=== PATIENT | male | born 1975 | race Caucasian/White ===

== ENCOUNTER 2023-08-04 14:04 | Outpatient (OUT) | payer MEDICAID, SELFPAY ==
[2023-08-04 14:33] LABS: Estimated Average Glucose 148 mg/dL; Glycohemoglobin A1C 6.8 % (4.5-6.2)
[2023-08-04 14:50] LABS: BUN Creatinine Ratio 17.6; Calcium 8.9 mg/dL (8.5-10.1); Carbon Dioxide 27.9 mmol/L (21.0-32.0); Chloride 99 mmol/L (98-107); Estimated GFR (African America >60 (>=60); Estimated GFR (Non-African Ame >60 (>=60); Glucose 145 mg/dL (74-106); Potassium 3.9 mmol/L (3.5-5.1); Sodium 136 mmol/L (136-145)
== END 2023-08-04 14:05 | disposition home or self-care (01) ==
LOC: LAB 14:08
PROVIDERS: PCP Nurse Practitioner; Visit Provider Nurse Practitioner
DX: E11.9 Type 2 diabetes mellitus without complications (principal)
CPT/HCPCS: 36415; 80048; 83036

== ENCOUNTER 2024-01-16 16:40 | Emergency (ER) | payer MEDICAID, SELFPAY ==
[2024-01-16 16:47] VITALS: BP 115/94; PULSE 94; TEMP 36.7; O2SAT 97; BMI 42.5
[2024-01-16 16:56] VITALS: PULSE 76
--- NOTE | 2024-01-16 17:00 | CT_ITS ---
The [address] [address] Patient Name: BHUMIKA BRYANT MRN: [id number] date: 1975 Sex: M Assigned Patient Location: ER Current Patient Location: ER Accession/Order Number: [id number] Exam Date: 01/16/2024 17:13 Report Date: 01/16/2024 17:51 At the request of: YASSINE HUITRON Procedure: CT head/brain wo con CT HEAD WITHOUT CONTRAST. INDICATION: Paresthesias. COMPARISON: None available for comparison TECHNIQUE: Axial CT head images from the skull base to the vertex without IV contrast were acquired. Coronal and sagittal reformats were also obtained. FINDINGS: EXTRA-AXIAL SPACE: Age-appropriate ventricles. No acute extra-axial collection. No extra-axial mass. No midline shift. CEREBRUM: No focal abnormality. No CT evidence of acute large territorial cortical infarct, hemorrhage or mass effect. CEREBELLUM: No focal abnormality. No CT evidence of acute infarct, hemorrhage or mass effect. BRAINSTEM: No focal abnormality. No CT evidence of acute infarct, hemorrhage or mass effect. EXTRACRANIAL STRUCTURES. The paranasal sinuses are clear. Mastoid air cells are clear. Orbits are unremarkable. No discrete pituitary mass. Intact calvarium. CT/CT head/brain wo con IMPRESSION: No acute intracranial abnormality. Electronically authenticated by: UMM HANSON Date: 01/16/2024 17:51
--- NOTE | 2024-01-16 17:01 | CT_ITS ---
The [address] [address] Patient Name: BHUMIKA BRYANT MRN: [id number] date: 1975 Sex: M Assigned Patient Location: ER Current Patient Location: ER Accession/Order Number: [id number] Exam Date: 01/16/2024 17:13 Report Date: 01/16/2024 18:00 At the request of: YASSINE HUITRON Procedure: CT cervical spine wo con CT CERVICAL SPINE WITHOUT IV CONTRAST. INDICATION: Paresthesias COMPARISON: There are no prior studies available for comparison. TECHNIQUE: CT of the cervical spine without contrast. Orthogonal sagittal and coronal multiplanar reformatted images were created. . FINDINGS: BONY ALIGNMENT: There is normal cervical lordosis. No spondylolisthesis. VERTEBRAL BODY: No acute fracture of the cervical spine. There is mild multilevel degenerative spondylosis. CENTRAL CANAL/NEURAL FORAMINA: There is moderate C2-3 and C3-4 central canal stenosis secondary to endplate osteophytes.. No high-grade neural foraminal stenosis. SOFT TISSUE: No mass or inflammation. UPPER LUNGS: No acute findings. CT/CT cervical spine wo con IMPRESSION: 1. No acute osseous abnormality of the cervical spine. 2. Moderate C2-3 and C3-4 central canal stenosis. 3. No high-grade neuroforaminal stenosis. Electronically authenticated by: UMM HANSON Date: 01/16/2024 18:00
--- NOTE | 2024-01-16 17:02 | ED_ITS ---
HPI - Extremity Problem General Chief complaint: Extremity Problem, Nontraumatic Stated complaint: Finger Numb Time Seen by Provider: 01/16/24 16:42 Source: patient Mode of arrival: walk-in Limitations: no limitations Related Data Home Medications ?Medication ?Instructions ?Recorded ?Confirmed amitriptyline 10 mg tablet 10 mg PO DAILY 01/16/24 01/16/24 aspirin 81 mg chewable tablet 1 tab PO DAILY 01/16/24 01/16/24 citalopram 40 mg tablet 40 mg PO DAILY 01/16/24 01/16/24 dapagliflozin propanediol 5 mg 10 mg PO DAILY 01/16/24 01/16/24 tablet (Farxiga) lisinopril 20 1 tab PO .dailly 01/16/24 01/16/24 mg-hydrochlorothiazide 25 mg tablet loratadine 10 mg tablet (Allergy 10 mg PO DAILY 01/16/24 01/16/24 Relief (loratadine)) meloxicam 15 mg tablet 15 mg PO DAILY 01/16/24 01/16/24 metformin 1,000 mg tablet 500 mg PO .with meals 01/16/24 01/16/24 simvastatin 20 mg tablet 20 mg PO DAILY 01/16/24 01/16/24 tizanidine 4 mg tablet 4 mg PO Q12H PRN muscle spasticity 01/16/24 01/16/24 trazodone 100 mg tablet 100 mg PO .qhs PRN insomnia 01/16/24 01/16/24 Previous Rx's ?Medication ?Instructions ?Recorded prednisone 10 mg tablet See Rx Instructions .Route 01/16/24 .COMPLEX #18 tabs Allergies Allergy/AdvReac Type Severity Reaction Status Date / Time adhesive tape Allergy Mild Verified 01/16/24 16:47 almond Allergy Mild Verified 01/16/24 16:47 penicillin G Allergy Mild Verified 01/16/24 16:47 cashews Allergy Mild Uncoded 01/16/24 16:47 Exam Constitutional Vital Signs, click to edit/add: Last Vital Signs Temp 98.0 F 01/16/24 16:47 Pulse 76 01/16/24 16:56 Resp 18 01/16/24 16:47 BP 115/94 H 01/16/24 16:47 Pulse Ox 97 01/16/24 16:47 Course Vital Signs Vital signs: Vital Signs Temperature 98.0 F 01/16/24 16:47 Pulse Rate 94 H 01/16/24 16:47 Respiratory Rate 18 01/16/24 16:47 Blood Pressure 115/94 H 01/16/24 16:47 Pulse Oximetry 97 01/16/24 16:47 Temperature 98.0 F 01/16/24 16:47 Pulse Rate 76 01/16/24 16:56 Respiratory Rate 18 01/16/24 16:47 Blood Pressure 115/94 H 01/16/24 16:47 Pulse Oximetry 97 01/16/24 16:47 MDM - Extremity (Nontraumatic) MDM Narrative Medical decision making narrative: Cervical spinal stenosis is noted on the CT C-spine. Findings are discussed with the patient and he is prescribed a lower dose of prednisone and referred to neurology. Treatment diagnosis and follow-up were discussed with the patient. Differential Diagnosis Differential diagnosis: Likely other (Paresthesia, cervical radiculopathy, cervical arthritis, spinal stenosis) Discharge Plan Discharge Stand Alone Forms: Portal Instructions Chief Complaint: Extremity Problem, Nontraumatic Clinical Impression: Paresthesia, Cervical spinal stenosis Patient Disposition: Home, Self-Care Time of Disposition Decision: 18:07 Condition: Good Mode of Transportation: Private Vehicle Prescriptions / Home Meds: New prednisone 10 mg tablet See Rx Instructions .ROUTE .COMPLEX Qty: 18 0RF Rx Instructions: 3 by mouth daily for three days then 2 by mouth daily for three days then 1 by mouth daily for three days No Action amitriptyline 10 mg tablet 10 mg PO DAILY aspirin 81 mg tablet,chewable 1 tab PO DAILY citalopram 40 mg tablet 40 mg PO DAILY dapagliflozin propanediol [Farxiga] 5 mg tablet 10 mg PO DAILY lisinopril-hydrochlorothiazide 20-25 mg tablet 1 tab PO .dailly loratadine [Allergy Relief (loratadine)] 10 mg tablet 10 mg PO DAILY meloxicam 15 mg tablet 15 mg PO DAILY metformin 1,000 mg tablet 500 mg PO .with meals simvastatin 20 mg tablet 20 mg PO DAILY tizanidine 4 mg tablet 4 mg PO Q12H PRN (Reason: muscle spasticity) trazodone 100 mg tablet 100 mg PO .qhs PRN (Reason: insomnia) Print Language: B[place] Instructions: Cervical Spinal Stenosis (ED), Paresthesia (ED) Additional Instructions: [phone] [facility] Referrals: Cecy Hernandez NP [Primary Care Provider] - 1 week
--- OUTSIDE RECORDS SUMMARY | 2024-01-16 17:19 | XMS_ITS | CCD ---
Author Organization [facility] Care Team Providers Care Accountant Helper Name Role Phone PHYSICIAN, DEFAULT Admitting Unavailable PHYSICIAN, DEFAULT Attending Unavailable PEGGY GAYTAN Primary Care Unavailable Primo Downing Primary Care Provider Yue Pedroza Unavailable AICHHOLZ, ASSET CARD CLERK CECY Primary Care Unavailable AICHHOLZ, ASSET CARD CLERK CECY Admitting Unavailable AICHHOLZ, ASSET CARD CLERK CECY Attending Unavailable AICHHOLZ, ASSET CARD CLERK CECY Consulting Unavailable AICHHOLZ, ASSET CARD CLERK CECY Primary Care Unavailable AICHHOLZ, ASSET CARD CLERK CECY Admitting Unavailable AICHHOLZ, ASSET CARD CLERK CECY Attending Unavailable AICHHOLZ, ASSET CARD CLERK CECY Consulting Unavailable AICHHOLZ, ASSET CARD CLERK CECY Admitting Unavailable AICHHOLZ, ASSET CARD CLERK CECY Attending Unavailable AICHHOLZ, ASSET CARD CLERK CECY Consulting Unavailable AICHHOLZ, ASSET CARD CLERK CECY Primary Care Unavailable AICHHOLZ, ASSET CARD CLERK CECY Primary Care Unavailable VISHAL, DR THANG Nichols Attending Unavailmilvia RODGERS, DR THANG Nichols Consulting Unavailmilvia RODGERS, DR THANG Nichols Admitting UnavailJAKOB Solano Consulting Unavailable Lexa Hickman MD Primary Care Provider [phone] Aichholz RECREATIONAL PROGRAMS DIRECTOR, Cecy Unavailable Unavailable Primary Care Provider Unavailabl e AICHHOLZ, CECY Attending Unavailable AICHHOLZ, CECY Attending Unavailable Allergies Allergy Classification Reported Allergen(s) Allergy Type Date of Onset Reaction(s) Facility (1 source) Adhesive Tape Allergy to substance 02-20-20 13 Rash [facility] (4 sources) Penicillins; Translations: [Penicillins] Drug Allergy 01-03-20 13 Unknown [facility] (1 source) Penicillins (Antibiotic) Drug allergy rash. when he was [employer] Other (1 source) Desonide Drug Allergy 11-03-19 17 [facility] (1 source) Oxytetracycline Drug Allergy 01-03-20 13 [facility] (1 source) Cashew nut Allergy to substance 08-16-20 Dermatitis [facility] (1 source) Oxytetracycline Drug Allergy 08-16-20 Unknown [facility] (1 source) Penicillin G Drug Allergy 08-16-20 Unknown [facility] (1 source) Other Allergy to substance 08-16-20 Unknown [facility] (1 source) Wound Dressing Adhesive Propensity to adverse reactions to drug 08-16-20 Rash [facility] (1 source) Adhesive agent Propensity to adverse reactions to drug 02-20-20 13 [facility] Medications Current Medications Medication Drug Class(es) Dates Sig (Normalized) Sig (Original) amitriptyline hydrochloride 10 mg oral tablet (3 sources) Tricyclic Antidepressant Start: 07-05-2023 End: 11-13-2023 take 1 tablet by mouth once daily amitriptyline (ELAVIL) 10 mg tablet TAKE 1 TABLET BY MOUTH DAILY at 8:00pm 30 tablet 2 11/13/2023 Active aspirin 81 mg chewable tablet (2 sources) Platelet Aggregation Inhibitor, Nonsteroidal Anti-inflammatory Drug Start: 02-13-2023 aspirin 81 mg chewable tablet take 1 tablet by mouth in the mo rning aspirin 81 MG EC tablet Take 81 mg by mouth in the morning. 0 Active citalopram 40 mg oral tablet (4 sources) Serotonin Reuptake Inhibitor End: 04-25-2014 citalopram (CeleXA) 40 mg tablet citalopram 40 mg tablet 0 Active Comment on above: Take 40 mg by mouth once daily. dapagliflozin 5 mg oral tablet (1 source) Sodium-Glucose Cotransporter 2 Inhibitor Start: 12-14-2022 take 1 tablet by mouth in the morning FARXIGA 5 mg tablet Take 1 tablet (5 mg total) by mouth in the morning. 0 12/14/2022 Active fluticasone propionate 0.05 mg/actuat metered dose nasal spray (4 sources) Corticosteroid Start: 10-08-2021 take 2 spray(s) nasal route once daily Fluticasone Propionate 50 MCG/ACT 2 sprays Nasally Once a day for 14 day(s) 11 Feb, 2022 Active fluticasone prop ionate (FLONASE) 50 mcg/actuation nasal spray fluticasone propionate 50 mcg/actuation nasal spray,suspension 0 Active take 2 spray(s) nasa l route in the morning fluticasone (Flonase) 50 MCG/ACT nasal s pray Administer 2 sprays into each nostril in the morning. Shake gently. Before first use, prime pump. After use, clean tip and replace cap.. 0 Active Fluticasone Furo ate Active hydroCHLOROthiazide 25 mg / lisinopril 20 mg oral tablet (2 sources) Thiazide Diuretic, Angiotensin Converting Enzyme Inhibitor lisinopril-hydroCHLO ROthiazide (PRINZIDE,ZESTORETIC) 20-25 mg per tablet lisinopril 20 mg-hydrochlorothiazide 25 mg tablet 0 Active Lisinopril-hydro CHLOROthiazide 20-25 MG Oral for 30 Active loratadine 10 mg oral tablet (3 sources) loratadine (CLAR ITIN) 10 mg tablet loratadine 10 mg tablet 0 Active meloxicam 15 mg oral tablet (2 sources) Nonsteroidal Anti-inflammatory Drug Start: 02-13-2023 meloxicam (MOBIC) 15 mg tablet Mobic Active metFORMIN hydrochloride 1000 mg oral tablet (2 sources) Biguanide metFORMIN (GLUCO PHAGE) 1000 mg tablet metformin 1,000 mg tablet 0 Active pioglitazone 30 mg oral tablet (4 sources) Peroxisome Proliferator Receptor alpha Agonist, Peroxisome Proliferator Receptor gamma Agonist, Thiazolidinedione Start: 02-13-2023 End: 11-11-2023 pioglitazone (ACTOS) 30 mg tablet Actos Active polyethylene glycol 3350 50841 mg powder for oral solution (1 source) Osmotic Laxative Start: 12-15-2022 polyethylene glycol, PEG, 3350 (Glycolax) 17 GM/SCOOP powder Take 17 g by mouth in the morning. 0 12/15/2022 Active simvastatin 20 mg oral tablet (1 source) HMG-CoA Reductase Inhibitor Start: 02-13-2023 simvastatin (ZOCOR) 20 mg tablet tiZANidine 4 mg oral tablet (1 source) Central alpha-2 Adrenergic Agonist Start: 02-13-2023 tiZANidine (ZANAFLEX ) 4 mg tablet Completed/Discontinued Medications Medication Drug Class(es) Dates Sig (Normalized) Sig (Original) canagliflozin (1 source) Sodium-Glucose Cotransporter 2 Inhibitor Invokana Not-Taking CPAP (1 source) Start: 3 End: 4 CPAP 7 CM H2O acclimation pressure WITH A 20 MINUTE RAMP, mask, CHIN STRAP, HUMIDITY. LIFETIME SUPPLIES. 1 Units 0 05/20/2013 06/18/2014 Discontinued Comment on above: 7 CM H2O acclimation pressure WITH A 20 MINUTE RAMP, mask, CHIN STRAP, HUMIDITY. LIFETIME SUPPLIES. diclofenac sodium 75 mg / miSOPROStol 0.2 mg delayed release oral tablet (1 source) Nonsteroidal Anti-inflammatory Drug, Prostaglandin E1 Analog End: 4 take 1 tablet by mouth twice daily diclofenac-misoprosto l (ARTHROTEC 75) 75-200 mg-mcg per tablet Take 1 tablet by mouth twice daily. 0 04/25/2014 Discontinued (Course of therapy completed) Comment on above: Take 1 tablet by thang th twice daily. 0.98 ml etanercept 50 mg/ml auto-injector (1 source) Tumor Necrosis Factor Darline Start: 3 End: 4 Etanercept (ENBREL SURECLICK) 50 mg/mL (0.98 mL) PnIj Indications: Rheumatoid arthritis(714.0) One injection weekly 4 Pen 4 06/12/2013 11/08/2013 Discontinued Comment on above: One injection weekly folic acid 1 mg oral tablet (2 sources) Start: 3 End: 4 take 1 tablet by mouth once daily folic acid 1 mg tablet Indications: Rheumatoid arthritis(714.0) Take 1 tablet by mouth once daily. 90 tablet 4 06/12/2013 04/25/2014 Discontinued Comment on above: Take 1 tablet by thang th once daily. hydroxychloroquine sulfate 200 mg oral tablet (1 source) Antimalarial, Antirheumatic Agent Start: 3 End: 4 take 1 tablet by mouth twice daily hydroxychloroquine (PLAQUENIL) 200 mg tablet Indications: Rheumatoid arthritis(714.0) Take 1 tablet by mouth twice daily. 60 tablet 4 06/12/2013 04/25/2014 Discontinued Comment on above: Take 1 tablet by thang th twice daily. methotrexate 2.5 mg oral tablet (1 source) Folate Analog Metabolic Inhibitor Start: 3 End: 4 methotrexate 2.5 mg tablet Indications: Rheumatoid arthritis(714.0) Take 6 tab once a week X 3 weeks then increase to 7 tab once a week X 3 weeks then take 8 tab once a week 28 tablet 2 06/12/2013 01/21/2014 Discontinued Comment on above: Take 6 tab once a we ek X 3 weeks then increase to 7 tab once a week X 3 weeks then take 8 tab once a week multivitamin (DAILY MULTIPLE) tablet (1 source) Start: 3 take 1 tablet by mouth once daily multivitamin (DAILY MULTIPLE) tablet Indications: Rheumatoid arthritis(714.0) Take 1 tablet by mouth once daily. 0 06/12/2013 Active Comment on above: Take 1 tablet by thang th once daily. OTC NUTRITIONAL SUPPLEMENT (1 source) Start: 3 End: 4 take 500 mg by mouth once daily OTC NUTRITIONAL SUPPLEMENT Indications: Rheumatoid arthritis(714.0) Take 500 mg by mouth once daily. Vit D 0 06/12/2013 04/25/2014 Discontinued (Course of therapy completed) Comment on above: Take 500 mg by mouth once daily. Vit D traMADol hydrochloride 50 mg oral tablet (1 source) Opioid Agonist Start: 3 take 1 tablet by mouth every twelve hours as needed traMADol 50 mg tablet Take 1 tablet by mouth twice daily as needed for Pain. 60 tablet 3 07/15/2013 Active Comment on above: Take 1 tablet by thang th twice daily as needed for Pain. Problems Active Problems Problem Classification Problem Date Documented Da te Episodic/Chronic Diabetes mellitus without complication (8 sources) Type 2 diabetes mellitus without complications; Translations: [Type 2 diabetes mellitus without complication] Onset: 01-11-2022 Chronic E Codes: Fall (1 source) Fall on same level from slipping, tripping and stumbling with subsequent striking against other sharp object, initial encounter; Translations: [FALL SAME LVL STRK OT SHRP OBJ INT] Onset: 04-25-2022 Episodic Essential hypertension (2 sources) Essential (primary) hypertension; Translations: [Benign essential hypertension] Onset: 04-25-2022 08-16-2023 Chronic Mood disorders (1 source) Depressive disorder; Translations: [Depression] Onset: 08-16-2023 08-16-2023 Chronic Other aftercare (1 source) halfway (current) use of oral hypoglycemic drugs; Translations: [EQUIPMENT PLANNER USE ORAL HYPOGLYCEMIC DX] Onset: 04-25-2022 Episodic Other aftercare (1 source) terminal operator (current) use of aspirin; Translations: [EQUIPMENT PLANNER CURRENT USE OF ASPIRIN] Onset: 04-25-2022 Episodic Other aftercare (1 source) Other roasterman (current) drug therapy; Translations: [OTH EQUIPMENT PLANNER CURRENT DRUG THERAPY] Onset: 04-25-2022 Episodic Other gastrointestinal disorders (1 source) Constipation; Translations: [Constipation, unspecified] Onset: 08-16-2023 08-16-2023 Episodic Other injuries and conditions due to external causes (3 sources) Unspecified injury of right elbow, initial encounter; Translations: [UNSPECIFIED INJURY RT ELBOW INITIAL] Onset: 04-23-2022 Episodic Other nutritional; endocrine; and metabolic disorders (1 source) Severe obesity; Translations: [Morbid (severe) obesity due to excess calories] Onset: 08-16-2023 08-16-2023 Chronic Residual codes; unclassified (1 source) Insomnia; Translations: [Insomnia, unspecified] Onset: 08-16-2023 08-16-2023 Episodic Rheumatoid arthritis and related disease (3 sources) Rheumatoid arthritis, unspecified; Translations: [Flare of rheumatoid arthritis] Onset: 06-12-2013 06-12-2013 Chronic Superficial injury; contusion (1 source) Contusion of right elbow, initial encounter; Translations: [CONTUSION RIGHT ELBOW INITIAL ENC] Onset: 04-25-2022 Episodic Systemic lupus erythematosus and connective tissue disorders (1 source) Autoimmune disease; Translations: [Systemic involvement of connective tissue, unspecified] Onset: 06-12-2013 08-16-2023 Chronic Past or Other Problems Problem Classification Problem Date Documented Da te Episodic/Chronic Immunizations and screening for infectious disease (1 source) Contact with and (suspected) exposure to other viral communicable diseases Onset: 10-08-2021 Resolved: 10-08-2021 Episodic Other non-traumatic joint disorders (2 sources) Joint pain; Translations: [Pain in unspecified joint] Onset: 02-19-2013 02-19-2013 Episodic Other screening for suspected conditions (not mental disorders or infectious disease) (1 source) Other specified abnormal findings of blood chemistry; Translations: [OTH SPEC ABNORMAL FINDINGS BLD CHEM] Onset: 05-18-2021 Episodic Other upper respiratory infections (1 source) Acute sinusitis, unspecified Onset: 10-08-2021 Resolved: 10-08-2021 Episodic Results Test Name Value Interpretation Reference Range Facil ity XR ELBOW RT MIN 3 VIEWSon XR ELBOW RT MIN 3 VIEWS RIGHT ELBOW 3 VIEWS: 04/23/2022 12:13 PM EDT Clinical Data: Pain. Trauma. Comparison: 11/05/2019 No distinct evidence of acute fracture or dislocation. No elbow joint effusion is evident. There is a moderate amount of degenerative spurring at the elbow which is unchanged No radiopaque foreign body IMPRESSION: 1. No evidence of acute fracture or dislocation. Electronically authenticated by: JAKOB MCGHEE Date: 2022-04-23 12:40 Normal [facility] CBC AUTO DIFFon 01-11-2022 BASO # 0.0 103/ul Normal 0.0-0.1 [facility] Comment on above: Performed By: #### C BC #### [facility] [address] [place] [address] Dr. Sera Quach Basophils/100 WBC (Bld) 0.4 % Normal 0.2-2.0 [facility] Comment on above: Performed By: #### C BC #### [facility] [address] [place] [address] Dr. Sera Quach EO # 0.3 103/ul Normal 0.0-0.7 [facility] Comment on above: Performed By: #### C BC #### [facility] [address] [place] [address] Dr. Sera Quach Eosinophils/100 WBC (Bld) 2.8 % Normal 0.9-7.0 [facility] Comment on above: Performed By: #### C BC #### [facility] [address] [place] [address] Dr. Sera Quach Erythrocyte distribution width (RBC) [Ratio] 13.1 % Normal 11.0-15.0 [facility] Comment on above: Performed By: #### C BC #### [facility] [address] [place] [address] Dr. eSra Quach Hematocrit (Bld) [Volume fraction] 47.3 % Normal 42.0-54.0 [facility] Comment on above: Performed By: #### C BC #### [facility] [address] [place] [address] Dr. Sera Quach Hemoglobin (Bld) [Mass/Vol] 15.2 g/dL Normal 14.0-18.0 [facility] Comment on above: Performed By: #### C BC #### [facility] [address] [place] [address] Dr. Sera Quach IG # 0.03 10e3/ul Normal 0.00-0.03 [facility] Comment on above: Performed By: #### C BC #### [facility] [address] [place] [address] Dr. Sera Quach IG % 0.3 % Normal 0.0-0.5 [facility] Comment on above: Performed By: #### C BC #### [facility] [address] [place] [address] Dr. Sera Quach LYMPH # 2.3 103/ul Normal 1.2-3.8 [facility] Comment on above: Performed By: #### C BC #### [facility] [address] [place] [address] Dr. Sera Quach Lymphocytes/100 WBC (Bld) 25.5 % Normal 20.5-60.0 [facility] Comment on above: Performed By: #### C BC #### [facility] [address] [place] [address] Dr. Sera Quach MANUAL DIFF REQ NO Normal [facility] Comment on above: Performed By: #### C BC #### [facility] [address] [place] [address] Dr. Sera Quach MCH (RBC) [Entitic mass] 29.2 pg Normal 25.9-34.0 [facility] Comment on above: Performed By: #### C BC #### [facility] [address] [place] [address] Dr. Sera Quach MCHC (RBC) [Mass/Vol] 32.1 g/dL Normal 29.9-35.2 [facility] Comment on above: Performed By: #### C BC #### [facility] [address] [place] [address] Dr. Sera Quach MCV (RBC) [Entitic vol] 91.0 fL Normal 80.0-94.0 [facility] Comment on above: Performed By: #### C BC #### [facility] [address] [place] [address] Dr. Sera Quach MONO # 0.7 103/ul Normal 0.3-0.8 [facility] Comment on above: Performed By: #### C BC #### [facility] [address] [place] [address] Dr. Sera Quach Monocytes/100 WBC (Bld) 7.1 % Normal 1.7-12.0 [facility] Comment on above: Performed By: #### C BC #### [facility] [address] [place] [address] Dr. Sera Quach NEUT # 5.9 103/ul Normal 1.4-6.5 [facility] Comment on above: Performed By: #### C BC #### [facility] [address] [place] [address] Dr. Sera Quach Neutrophils/100 WBC (Bld) 63.9 % Normal 43.0-75.0 [facility] Comment on above: Performed By: #### C BC #### [facility] [address] [place] [address] Dr. Sera Quach Platelet mean volume (Bld) [Entitic vol] 9.3 fL Critically low 9.5-13.5 [facility] Comment on above: Performed By: #### C BC #### [facility] [address] [place] [address] Dr. Sera Quach PLT 316 103/ul Normal 150-450 [facility] Comment on above: Performed By: #### C BC #### [facility] [address] [place] [address] Dr. Sera Quach RBC 5.20 106/ul Normal 4.70-6.10 [facility] Comment on above: Performed By: #### C BC #### [facility] [address] [address] [address] Sera Quach WBC 9.2 103/ul Normal 4.0-11.0 [facility] Comment on above: Performed By: #### C BC #### [facility] [address] [address] [address] Sera Quach GLYCOHEMOGLOBIN A1Con 2021 ADA RECOMMENDATION SEE BELOW Normal [facility] Comment on above: Result Comment: ADA RECOMMENDED LIMIT 4.0 - 6.0 ADA THERAPEUTIC TARGET < 7.0 ACTION SUGGESTED > 7.0 Performed By: #### A 1C #### [facility] [address] [place] [address] Dr. Sera Quach Glucose [Mass/Vol] 209 mg/dL Normal [facility] Comment on above: Performed By: #### A 1C #### [facility] [address] [place] [address] Dr. Sera Quach HbA1c (Bld) [Mass fraction] 8.9 % Critically high 4.5-6.2 [facility] Comment on above: Performed By: #### A 1C #### [facility] [address] [place] [address] Dr. Sera Quach LIPID PROFILEon 01-11-2022 CHOL-HDL RATIO NORM SEE BELOW Normal [facility] Comment on above: Result Comment: 3.3 - 4.4 LOW RISK 4.4 - 7.1 AVERAGE RISK 7.1 - 11.0 MODERATE RISK >11.0 HIGH RISK Performed By: #### C MP, LIPID #### [facility] [address] [place] [address] Dr. Sera Quach Cholesterol [Mass/Vol] 154 mg/dL Normal <=200 [facility] Comment on above: Performed By: #### C MP, LIPID #### [facility] [address] [place] [address] Dr. Sera Quach Cholesterol in HDL [Mass/Vol] 39 mg/dL Critically low 40-60 [facility] Comment on above: Performed By: #### C MP, LIPID #### [facility] [address] [address] [address] Sera Quach Cholesterol in LDL [Mass/Vol] 98.0 mg/dL Normal [facility] Comment on above: Performed By: #### C MP, LIPID #### [facility] [address] [address] [address] Sera Quach Cholesterol.total/Cho lesterol in HDL [Mass ratio] 3.9 {ratio} Normal [facility] Comment on above: Performed By: #### C MP, LIPID #### [facility] [address] [place] [address] Dr. Sera Quach HDL NORMAL > or = 60 mg/dl - LOW CARDIOVASCULAR RISK <40 mg/dl - HIGH CARDIOVASCULAR RISK Normal [facility] Comment on above: Performed By: #### C MP, LIPID #### [facility] [address] [place] [address] Dr. Sera Quach LDL CALC NORMAL SEE BELOW Normal [facility] Comment on above: Result Comment: <100 mg/dl OPTIMAL 100 - 129 mg/dl NEAR OR ABOVE OPTIMAL 130 - 159 mg/dl BORDERLINE HIGH 160 - 189 mg/dl HIGH >190 mg/dl VERY HIGH Performed By: #### C MP, LIPID #### [facility] [address] [place] [address] Dr. Sera Quach Triglyceride [Mass/Vol] 85 mg/dL Normal <=150 [facility] Comment on above: Performed By: #### C MP, LIPID #### [facility] [address] [place] [address] Dr. Sera Quach VLDL CALC 17.0 mg/dL Normal [facility] Comment on above: Performed By: #### C MP, LIPID #### [facility] [address] [place] [address] Dr. Sera Quach MICROALBUMIN, RAND URon 05-1 mALB 1.3 mg/L Normal <=30.0 [facility] Comment on above: Performed By: #### M ALBR #### [facility] [address] [place] [address] Dr. Sera Quach PROF 14(COMP METB)on 022 Albumin [Mass/Vol] 3.9 g/dL Normal 3.4-5.0 [facility] Comment on above: Performed By: #### C MP, LIPID #### [facility] [address] [address] [address] Sera Quach Albumin/Globulin [Mass ratio] 1.1 {ratio} Normal [facility] Comment on above: Performed By: #### C MP, LIPID #### [facility] [address] [address] [address] Sera Quach ALP [Catalytic activity/Vol] 76 U/L Normal 46-116 [facility] Comment on above: Performed By: #### C MP, LIPID #### [facility] [address] [address] [address] Sera Quach ALT [Catalytic activity/Vol] 64 U/L Critically high 16-63 [facility] Comment on above: Performed By: #### C MP, LIPID #### [facility] [address] [address] [address] Sera Quach Anion gap [Moles/Vol] 12.7 mmol/L Normal [facility] Comment on above: Performed By: #### C MP, LIPID #### [facility] [address] [address] [address] Sera Quach AST [Catalytic activity/Vol] 37 U/L Normal 15-37 [facility] Comment on above: Performed By: #### C MP, LIPID #### [facility] [address] [address] [address] Sera Quach Bilirubin [Mass/Vol] 0.6 mg/dL Normal 0.2-1.0 [facility] Comment on above: Performed By: #### C MP, LIPID #### [facility] [address] [address] [address] Sera Quach Calcium [Mass/Vol] 9.0 mg/dL Normal 8.5-10.1 [facility] Comment on above: Performed By: #### C MP, LIPID #### [facility] [address] [address] [address] Sera Quach Chloride [Moles/Vol] 101 mmol/L Normal 98-107 [facility] Comment on above: Performed By: #### C MP, LIPID #### [facility] [address] [place] [address] Dr. Sera Quach CO2 [Moles/Vol] 27.6 mmol/L Normal 21.0-32.0 [facility] Comment on above: Performed By: #### C MP, LIPID #### [facility] [address] [place] [address] Dr. Sera Quach Creatinine [Mass/Vol] 0.75 mg/dL Normal 0.70-1.30 [facility] Comment on above: Performed By: #### C MP, LIPID #### [facility] [address] [place] [address] Dr. Sera Quach EGFR-AF BELGIAN >60 Normal >=60 [facility] Comment on above: Performed By: #### C MP, LIPID #### [facility] [address] [place] [address] Dr. Sera Quach EGFR-NON AF BELGIAN >60 Normal >=60 [facility] Comment on above: Performed By: #### C MP, LIPID #### [facility] [address] [place] [address] Dr. Sera Quach Globulin (S) [Mass/Vol] 3.6 g/dL Normal [facility] Comment on above: Performed By: #### C MP, LIPID #### [facility] [address] [place] [address] Dr. Sera Quach Glucose [Mass/Vol] 184 mg/dL Critically high 74-106 [facility] Comment on above: Performed By: #### C MP, LIPID #### [facility] [address] [place] [address] Dr. Sera Quach Potassium [Moles/Vol] 4.3 mmol/L Normal 3.5-5.1 [facility] Comment on above: Performed By: #### C MP, LIPID #### [facility] [address] [place] [address] Dr. Sera Quach Protein [Mass/Vol] 7.5 g/dL Normal 6.4-8.2 [facility] Comment on above: Performed By: #### C MP, LIPID #### [facility] [address] [place] [address] Dr. Sera Quach Sodium [Moles/Vol] 137 mmol/L Normal 136-145 [facility] Comment on above: Performed By: #### C MP, LIPID #### [facility] [address] [place] [address] Dr. Sera Quach Urea nitrogen [Mass/Vol] 12.0 mg/dL Normal 7.0-18.0 [facility] Comment on above: Performed By: #### C MP, LIPID #### [facility] [address] [place] [address] Dr. Sera Quach Urea nitrogen/Creatinine [Mass ratio] 16.0 mg/mg Normal [facility] Comment on above: Performed By: #### C MP, LIPID #### [facility] [address] [place] [address] Dr. Sera Quach UA RANDOM W/MICROSCOPICon BACTERIA NONE SEEN Normal NONE SEEN [facility] Comment on above: Performed By: #### U AMIC #### [facility] [address] [place] [address] Dr. Sera Quach Bilirubin Ql (U) Negative Normal NEGATIVE [facility] Comment on above: Performed By: #### U AMIC #### [facility] [address] [place] [address] Dr. Sera Quach CAST NONE SEEN Normal NONE SEEN [facility] Comment on above: Performed By: #### U AMIC #### [facility] [address] [place] [address] Dr. Sera Quach Clarity (U) CLOUDY Abnormal CLEAR [facility] Comment on above: Performed By: #### U AMIC #### [facility] [address] [place] [address] Dr. Sera Quach Color (U) YELLOW Normal YELLOW [facility] Comment on above: Performed By: #### U AMIC #### [facility] [address] [address] [address] Sera Quach Crystals LM Nom (Urine sed) SEEN Abnormal NONE SEEN [facility] Comment on above: Performed By: #### U AMIC #### [facility] [address] [address] [address] Sera Quach Epithelial cells LM Ql (Urine sed) RARE Normal NONE SEEN /RARE [facility] Comment on above: Performed By: #### U AMIC #### [facility] [address] [address] [address] Sera Quach Glucose Ql (U) Negative Normal NEGATIVE [facility] Comment on above: Performed By: #### U AMIC #### [facility] [address] [address] [address] Sera Quach Hemoglobin Ql (U) Negative Normal NEGATIVE [facility] Comment on above: Performed By: #### U AMIC #### [facility] [address] [address] [address] Sera Quach Ketones Ql (U) Negative Normal NEGATIVE [facility] Comment on above: Performed By: #### U AMIC #### [facility] [address] [address] [address] Sera Quach LEUKOCYTES Negative Normal NEGATIVE [facility] Comment on above: Performed By: #### U AMIC #### [facility] [address] [address] [address] Sera Quach MUCOUS NONE SEEN Normal NONE SEEN [facility] Comment on above: Performed By: #### U AMIC #### [facility] [address] [address] [address] Sera Quach Nitrite Ql (U) Negative Normal NEGATIVE [facility] Comment on above: Performed By: #### U AMIC #### [facility] [address] [address] [address] Sera Quach pH (U) 5.5 [pH] Normal 5-9 [facility] Comment on above: Performed By: #### U AMIC #### [facility] [address] [address] [address] Sera Quach RBC NONE SEEN Abnormal 0-2 [facility] Comment on above: Performed By: #### U AMIC #### [facility] [address] [address] [address] Sera Quach SPEC GRAVITY 1.025 Normal 1.005-<=1.025 [facility] Comment on above: Performed By: #### U AMIC #### [facility] [address] [address] [address] Sera Quach UA PROTEIN Negative Normal NEGATIVE/ TRACE [facility] Comment on above: Performed By: #### U AMIC #### [facility] [address] [address] [address] Sera Quach Urobilinogen Qn (U) 1.0 {Jessika'U}/dL Normal 0.2 - 1. 0 [facility] Comment on above: Performed By: #### U AMIC #### [facility] [address] [address] [address] Sera Quach WBC 0-2 Abnormal NONE SEEN [facility] Comment on above: Performed By: #### U AMIC #### [facility] [address] [address] [address] Sera Quach GLYCOHEMOGLOBIN A1Con 2020 ADA RECOMMENDATION ADA THERAPEUTIC TARGET 6.0 - 7.0 ACTION SUGGESTED > 7.0 Normal [facility] Comment on above: Performed By: #### A 1C #### [facility] [address] [address] Dania Carreno Glucose [Mass/Vol] 174 mg/dL Normal [facility] Comment on above: Performed By: #### A 1C #### [facility] [address] [address] Dania Carreno HbA1c (Bld) [Mass fraction] 7.7 % Critically high <=6.0 [facility] Comment on above: Performed By: #### A 1C #### [facility] [address] [address] Dania Carreno PROF CHEM 8 (BAS METB)on 09- 08-2021 Anion gap [Moles/Vol] 9.0 mmol/L Normal [facility] Comment on above: Performed By: #### B MP #### [facility] [address] [address] Dania Ev Calcium [Mass/Vol] 8.8 mg/dL Normal 8.4-10.2 [facility] Comment on above: Performed By: #### B MP #### [facility] [address] [address] Dania Ev Chloride [Moles/Vol] 102 mmol/L Normal 98-107 [facility] Comment on above: Performed By: #### B MP #### [facility] [address] [place] [address] Dania Ev CO2 [Moles/Vol] 29.1 mmol/L Normal 22.0-30.0 [facility] Comment on above: Performed By: #### B MP #### [facility] [address] [place] [address] Dania Ev Creatinine [Mass/Vol] 0.73 mg/dL Normal 0.66-1.25 [facility] Comment on above: Performed By: #### B MP #### [facility] [address] [place] [address] Dania Ev EGFR-AF BELGIAN >60 Normal >=60 [facility] Comment on above: Performed By: #### B MP #### [facility] [address] [place] [address] Dania Ev EGFR-NON AF BELGIAN >60 Normal >=60 [facility] Comment on above: Performed By: #### B MP #### [facility] [address] [place] [address] Dania Ev Glucose [Mass/Vol] 141 mg/dL Critically high 74-106 [facility] Comment on above: Performed By: #### B MP #### [facility] [address] [place] [address] Dania Ev Potassium [Moles/Vol] 4.1 mmol/L Normal 3.4-5.0 [facility] Comment on above: Performed By: #### B MP #### [facility] [address] [place], [place] [address] Dania Ev Sodium [Moles/Vol] 136 mmol/L Critically low 137-145 [facility] Comment on above: Performed By: #### B MP #### [facility] [address] [place], [place] [address] Dania Ev Urea nitrogen [Mass/Vol] 9.0 mg/dL Normal 9.0-20.0 [facility] Comment on above: Performed By: #### B MP #### [facility] [address] [place], [place] [address] Dania Ev Urea nitrogen/Creatinine [Mass ratio] 12.3 mg/mg Normal [facility] Comment on above: Performed By: #### B MP #### [facility] [address] [place], [place] [address] Dania Ev Vital Signs Date Time Vital Sign Value Performing Clinician Facility 10-08-2021 13:30-0500 Body height 190.5 cm Yue Pedroza Other [facility] Other 10-08-2021 13:30-0500 Body mass index (BMI) [Ratio] 45.12 kg/m2 Yue Pedroza Other [facility] Other 10-08-2021 13:30-0500 Body temperature 96.6 [degF] Yue Pedroza Other [facility] Other 10-08-2021 13:30-0500 Body weight 163.75 kg Yue Kasia Other [facility] Other 10-08-2021 13:30-0500 SaO2% (BldA) [Mass fraction] 98 % Yue Pedroza Other [facility] Other Encounters Encounter Date Encounter Type Care Provider Facility Start: 11-16-2023 End: 11-16-2023 ambulatory CECY AICHHOLZ Not Available Start: 11-12-2023 Refill Jone Cota MD Work Phone: [facility] Start: 10-11-2023 Refill Cecy Aichholz RECREATIONAL PROGRAMS DIRECTOR Work Phone: [facility] Comment on above: Type 2 diabetes genet itus without complication, without long- term current use of insulin (CMS/HCC) (Primary Dx); Type 2 diabetes mellitus without complications (CMS/HCC) Start: 08-16-2023 End: 08-16-2023 ambulatory CECY AICHHOLZ Not Available Start: 04-23-2022 End: 04-23-2022 ambulatory ASSET CARD CLERK CECY AICHHOLZ Facility:[facility] Start: 01-11-2022 End: 01-12-2022 ambulatory ASSET CARD CLERK CECY AICHHOLZ Facility:[facility] Start: 10-08-2021 End: 10-08-2021 ambulatory Yue Pedroza Other [facility] Other Start: 10-08-2021 Office outpatient vi sit 15 minutes Yue Pedroza [facility] Start: 06-07-2021 End: 06-07-2021 ambulatory ASSET CARD CLERK CECY AICHHOLZ Facility:[facility] Start: 05-05-2021 End: 05-06-2021 ambulatory ASSET CARD CLERK CECY AICHHOLZ Facility:[facility] Start: 06-08-2018 End: 06-09-2018 Patient encounter procedure DEFAULT PHYSICIAN Facility:[facility] Start: 11-07-2013 End: 11-07-2013 Telephone encounter Haylee Garcia Work Phone: Rheumatology Comment on above: Appointment Cancelle d Plan of Treatment Date Care Activity Detail Author Start: 01-14-2024 Urine screening for protein Diabetes: Urine Protein Screening [facility] Start: 01-03-2024 End: 01-03-2024 Patient encounter procedure 01/03/2024 3:00 PM EDT Office Visit [facility] [address] [phone] Jone Cota MD [address] [address] [facility] Start: 12-27-2023 Screening for malignant neoplasm of colon [facility] Start: 11-16-2023 End: 11-16-2023 Patient encounter procedure 11/16/2023 1:20 PM EDT Office Visit [facility] [address] [place] [address] Cecy Hernandez NP [address] [place] [address] [facility] Start: 11-03-2023 Hemoglobin A1c measurement Diabetes: Hemoglobin A1C [facility] Start: 04-28-2023 Influenza vaccination [facility] Start: 04-28-2020 Influenza vaccination INFLUENZA (#1) [facility] Start: 2012 LIPID SCREEN LIPID SCREEN [facility] Start: 1996 DTaP,Tdap and Td Vaccines (1 - Tdap) DTaP,Tdap and Td Vaccines (1 - Tdap) [facility] Start: 1996 Urine microalbumin profile DTAP,TDAP,TD (1 - Tdap) [facility] Start: 1995 Adult BMI Screening Adult BMI Screening [facility] Start: 1995 Diabetic foot examination Diabetic Foot Exam [facility] Start: 1995 HIV SCREENING HIV SCREENING [facility] Start: 1989 Depression Screening [facility] Start: 1989 Tobacco Screening Tobacco Screening [facility] Start: 1987 Glaucoma screening Diabetes: Retinopathy Screening [facility] Start: 1977 Glaucoma screening Diabetic Ophthalmology Exam [facility] Start: 1977 Screening for malignant neoplasm of colon [facility] Start: 1977 Urine screening for protein Urine Microalbumin [facility] Immunizations Immunization Date Immunization Notes Care Provider Fa cility 06-06-2023 influenza virus vaccine, unspecified formulation Cecy Hernandez NP Work Phone: [facility] 04-04-2014 tetanus toxoid, reduced diphtheria toxoid, and acellular pertussis vaccine, adsorbed Yue Kasia Other [facility] Other 06-12-2013 influenza virus vaccine, unspecified formulation Haylee Radha [facility] Payers Date Payer Category Payer Medicaid [id number] 2022 Medicaid [id number] 2013 Medicaid [employer] [place] [employer] MEDICA[employer] [id number] 2013-Present Medicaid [id number] 2013 Self-pay SELF PAY HSP/MED ICAL SELF PAY [id number] 2013-2015 SELF PAY Indemnity [id number] 1977 Unknown [id number] 1977 Unknown [id number] 1977 Unknown [id number] 1977 Unknown [id number] 1977 Unknown [id number] 1977 Unknown [id number] 1977 Unknown [id number] 1959 Unknown [id number] 1959 Unknown [id number] Unknown Social History Date Type Detail Facility Start: 05-20-2013 End: 08-16-2023 Tobacco smoking status OKIS Former smoker [facility] Start: 05-20-2013 Alcohol intake Not Asked [facility] Start: 1977 Sex Assigned At Not on file [facility] Start: 02-06-2019 End: 08-16-2023 Sex Assigned At [facility] Possible Web Other History of tobacco use Current smoker [facility] History of tobacco use Cigarette Smoker [facility] Start: 08-16-2023 Alcohol intake Ex-drinker (finding) [facility] Start: 02-06-2019 End: 08-16-2023 History of Social function [facility] Start: 08-16-2023 Tobacco Comment Last smoked: 5-10 ye ars [facility] Start: 08-16-2023 Alcohol Comment caffeine 1-2 c ups per day [facility] Tobacco smoking status [facility] Tobacco smoking consumption unknown [facility] Medical Equipment Procedure Code Equipment Code Equipment Origin al Text Equipment Identifier Dates 1 each by Other route Daily as needed [id number] Start: 10-13-2022 1 each by Other route if needed [id number] Start: 10-13-2022 Evaluation note 10-08-2021 Note Date & Type Note Facility 10-08-2021 Evaluation note Encounter Date Diagnosis Assessment Notes Sep, Contact with and (suspected) exposure to other viral communicable diseases (ICD-10 - Z20.828) Sep, Acute sinusitis, recurrence not specified, unspecified location (ICD-10 - J01.90) Drink plenty fluids, get plenty of rest. Use the Flonase inhaler as prescribed until your symptoms improve. Take Tylenol or Motrin for aches pains or fevers. Follow-up with your family physician if no improvement in 2 to 3 days. Sep, Other Additional time spent conducting pre-visit phone call, screening for symptoms, instructions on social distancing, application and removal of PPE, and cleaning of examination room, equipment and supplies was preformed. Patient education given for testing methodology and results. Patient care instructions given in writting by [facility] document. [facility] Other Evaluation note Note Date & Type Note Facility Evaluation note Diagnosis Type 2 diabetes mellitus without complication, without long-term current use of insulin (CMS/HCC)- Primary Type 2 diabetes mellitus without complications (CMS/HCC) documented in this encounter [facility] History general Narrative - Reported Note Date & Type Note Facility History general Narrative - Reported Type Medical History rheumatoid arthritis Medical History type 2 diabeties Medical History Benign essential HTN Medical History Depression Surgical History tonsillectomy and adenoidectomy 1988 Hospitalization History tonsillitis childhoo d [facility] Other Instructions Note Date & Type Note Facility Instructions Not on filedocumented in this en counter [facility] Summary Purpose Family History No Family History Records FoundNo Family History Records FoundNo Family History Records Found Advance Directives No Advanced Directives Records FoundNo Advanced Directives Records FoundNo Advanced Directives Records Found Additional Source Comments (unrecognized sect ion and content) No Status Records FoundNo Status Records FoundNo Status Records Found INFORMATION SOURCE (unrecogn ized section and content) DATE CREATED AUTHOR 11/14/2018 [facility] DATE CREATED AUTHOR AUTHOR'S ORGANIZ ATION 04/25/2022 [facility] DATE CREATED AUTHOR AUTHOR'S ORGANIZ ATION 11/18/2023 [facility] EPIC Source Comments (unrecognize d section and content) In the event this informatio n is protected by the Federal Confidentiality of Alcohol and Drug Abuse Patient Records regulations: The Federal rules restrict any use of the information to criminally investigate or prosecute any alcohol or drug abuse patient.[facility] Reason for Visit (unrecogniz ed section and content) Reason Onset Date Comments Appointment Cancelled 11/07/2013 Reason Comments Med Refill Telephone Encounter - Shagufta Burton - 11/07/2013 2:22 PM EDT Miscellaneous Notes (unrecog nized section and content) Called left message for patient in regards to appointment on 11/08/2013 @ 3:30 with being cancelled and needing to be rescheduled. Waiting on a call back from patient. documented in this encounter Care Teams (unrecognized sec tion and content) Accountant Helper Relationship Specialty Start Date End Date Lexa Hickman MD PCP - General Family Medicine 03/15/23 Cecy Hernandez NP [address] [place] [address] Referring Physician Nurse Practitioner 03/15/23 FOR RECORDS PERTAINING TO PATIENTS WHO ARE OR HAVE BEEN ENROLLED IN A CHEMICAL DEPENDENCY/SUBSTANCEABUSE PROGRAM, SOME INFORMATION MAY BE OMITTED. This clinical summary was aggregated from multiple sources. Caution should be exercised in using it in the provision of clinical care. This summary normalizes information from multiple sources, and as a consequence, information in this document may materially change the coding, format and clinical context of patient data. In addition, data may be omitted in some cases. CLINICAL DECISIONS SHOULD BE BASED ON THE PRIMARY CLINICAL RECORDS. [employer] provides no warranty or guarantee of the accuracy or completeness of information in this document.
[2024-01-16 18:14] VITALS: BP 122/76; O2SAT 98
== END 2024-01-16 18:15 | disposition home or self-care (01) ==
PROVIDERS: Emergency Provider Emergency Medicine; PCP Nurse Practitioner
DX: M48.02 Spinal stenosis, cervical region (principal); R20.2 Paresthesia of skin; Z79.82 Long term (current) use of aspirin; Z79.899 Other long term (current) drug therapy; Z79.84 Long term (current) use of oral hypoglycemic drugs
CPT/HCPCS: 70450; 72125; 99284

== ENCOUNTER 2024-02-16 13:54 | Outpatient (OUT) | payer MEDICAID, SELFPAY ==
--- OUTSIDE RECORDS SUMMARY | 2024-02-16 14:16 | XMS_ITS | CCD ---
Author Organization [facility] Care Team Providers Care Bicycle Ii Assembler Name Role Phone PHYSICIAN, DEFAULT Admitting Unavailable PHYSICIAN, DEFAULT Attending Unavailable PEGGY GAYTAN Primary Care Unavailable Primo Downing Primary Care Provider Yue Pedroza Unavailable AICHHOLZ, PROMPT CARE RN CECY Primary Care Unavailable AICHHOLZ, PROMPT CARE RN CECY Admitting Unavailable AICHHOLZ, PROMPT CARE RN CECY Attending Unavailable AICHHOLZ, PROMPT CARE RN CECY Consulting Unavailable AICHHOLZ, PROMPT CARE RN CECY Primary Care Unavailable AICHHOLZ, PROMPT CARE RN CECY Admitting Unavailable AICHHOLZ, PROMPT CARE RN CECY Attending Unavailable AICHHOLZ, PROMPT CARE RN CECY Consulting Unavailable AICHHOLZ, PROMPT CARE RN CECY Admitting Unavailable AICHHOLZ, PROMPT CARE RN CECY Attending Unavailable AICHHOLZ, PROMPT CARE RN CECY Consulting Unavailable AICHHOLZ, PROMPT CARE RN CECY Primary Care Unavailable AICHHOLZ, PROMPT CARE RN CECY Primary Care Unavailable VISHAL, DR THANG Nichols Attending Unavailmilvia RODGERS, DR THANG Nichols Consulting Unavailmilvia RODGERS, DR THANG Nichols Admitting UnavailJAKOB Solano Consulting Unavailable Lexa Hickman MD Primary Care Provider Aichholz SKID ADZER, Cecy Unavailable Unavailable Primary Care Provider Unavailabl e AICHHOLZ, CECY Attending Unavailable VICKY SCRUGGS Attending Unavailable AICHHOLZ, CECY Attending Unavailable TANA CARDENAS Attending Unavailable Allergies Allergy Classification Reported Allergen(s) Allergy Type Date of Onset Reaction(s) Facility (1 source) Adhesive Tape Allergy to substance 02-20-20 13 Rash [facility] (4 sources) Penicillins; Translations: [Penicillins] Drug Allergy 01-03-20 13 Unknown [facility] (1 source) Penicillins (Antibiotic) Drug allergy rash. when he was kid [facility] Other (1 source) Desonide Drug Allergy 11-03-19 17 [facility] (1 source) Oxytetracycline Drug Allergy 01-03-20 13 [facility] (1 source) Cashew nut Allergy to substance 08-16-20 Dermatitis [facility] (1 source) Oxytetracycline Drug Allergy 08-16-20 Unknown [facility] (1 source) Penicillin G Drug Allergy 08-16-20 Unknown [facility] (1 source) Other Allergy to substance 08-16-20 23 Unknown [facility] (1 source) Wound Dressing Adhesive Propensity to adverse reactions to drug 08-16-20 Rash [facility] (1 source) Adhesive agent Propensity to adverse reactions to drug 02-20-20 13 Rash [facility] Medications Current Medications Medication Drug Class(es) [...] Nasally Once a day for 14 day(s) Sep, Active fluticasone prop ionate (FLONASE) 50 mcg/actuation [...] mg tablet Actos Active polyethylene glycol 3350 83160 mg powder for oral solution (1 source) [...] initial encounter; Translations: [FALL SAME LVL [facility] SHRP OBJ INT] Onset: 04-25-2022 Episodic Essential hypertension (2 sources) Essential (primary) hypertension; Translations: [Benign essential hypertension] Onset: 04-25-2022 08-16-2023 Chronic Mood disorders (1 source) Depressive disorder; Translations: [Depression] Onset: 08-16-2023 08-16-2023 Chronic Other aftercare (1 source) care home (current) use of oral hypoglycemic drugs; Translations: [[facility] USE ORAL HYPOGLYCEMIC DX] Onset: 04-25-2022 Episodic Other aftercare (1 source) care home (current) use of aspirin; 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 Sera Quach Basophils/100 WBC (Bld) 0.4 % Normal 0.2-2.0 [facility] Comment on above: Performed By: #### C BC #### [facility] [address] [place] [address] Dr. Sera Quach EO # 0.3 103/ul Normal 0.0-0.7 [facility] Comment on above: Performed By: #### C BC #### [facility] [address] [address] [address] Sera Quach Eosinophils/100 WBC (Bld) 2.8 % Normal 0.9-7.0 [facility] Comment on above: Performed By: #### C BC #### [facility] [address] [place] [address] Dr. Sera Quach Erythrocyte distribution width (RBC) [Ratio] 13.1 % Normal 11.0-15.0 [facility] Comment on above: Performed By: #### C BC #### [facility] [address] [place] [address] Dr. Sera Quach Hematocrit (Bld) [Volume fraction] 47.3 % Normal 42.0-54.0 [facility] Comment on above: Performed By: #### C BC #### [facility] [address] [place] [address] Dr. Sera Quach Hemoglobin (Bld) [Mass/Vol] 15.2 g/dL Normal 14.0-18.0 [facility] Comment on above: Performed By: #### C BC #### [facility] [address] [place] [address] Dr. Sera Quach IG # 0.03 10e3/ul Normal 0.00-0.03 [facility] Comment on above: Performed By: #### C BC #### [facility] [address] [place] [address] Dr. Sera Quach IG % 0.3 % Normal 0.0-0.5 [facility] Comment on above: Performed By: #### C BC #### [facility] [address] [place] [address] Dr. Sera Quach LYMPH # 2.3 103/ul Normal 1.2-3.8 [facility] Comment on above: Performed By: #### C BC #### [facility] [address] [place] [address] Dr. Sera Quach Lymphocytes/100 WBC (Bld) 25.5 % Normal 20.5-60.0 [facility] Comment on above: Performed By: #### C BC #### [facility] [address] [place] [address] Dr. Sera Quach MANUAL DIFF REQ NO Normal [facility] Comment on above: Performed By: #### C BC #### [facility] [address] [place] [address] Dr. Sera Quach MCH (RBC) [Entitic mass] 29.2 pg Normal 25.9-34.0 [facility] Comment on above: Performed By: #### C BC #### [facility] [address] [address] [address] Sera Quach MCHC (RBC) [Mass/Vol] 32.1 g/dL Normal 29.9-35.2 [facility] Comment on above: Performed By: #### C BC #### [facility] [address] [place] [address] Dr. Sera Quach MCV (RBC) [Entitic vol] 91.0 fL Normal 80.0-94.0 [facility] Comment on above: Performed By: #### C BC #### [facility] [address] [place] [address] Dr. Sera Quach MONO # 0.7 103/ul Normal 0.3-0.8 [facility] Comment on above: Performed By: #### C BC #### [facility] [address] [place] [address] Dr. Sera Quach Monocytes/100 WBC (Bld) 7.1 % Normal 1.7-12.0 [facility] Comment on above: Performed By: #### C BC #### [facility] [address] [place] [address] Dr. Sera Quach NEUT # 5.9 103/ul Normal 1.4-6.5 [facility] Comment on above: Performed By: #### C BC #### [facility] [address] [place] [address] Dr. Sera Quach Neutrophils/100 WBC (Bld) 63.9 % Normal 43.0-75.0 [facility] Comment on above: Performed By: #### C BC #### [facility] [address] [place] [address] Dr. Sera Quach Platelet mean volume (Bld) [Entitic vol] 9.3 fL Critically low 9.5-13.5 [facility] Comment on above: Performed By: #### C BC #### [facility] [address] [place] [address] Dr. Sera Quach PLT 316 103/ul Normal 150-450 [facility] Comment on above: Performed By: #### C BC #### [facility] [address] [place] [address] Dr. Sera Quach RBC 5.20 106/ul Normal 4.70-6.10 [facility] Comment on above: Performed By: #### C BC #### [facility] [address] [place] [address] Dr. Sera Quach WBC 9.2 103/ul Normal 4.0-11.0 [facility] Comment on above: Performed By: #### C BC #### [facility] [address] [place] [address] Dr. Sera Quach GLYCOHEMOGLOBIN A1Con 2021 ADA RECOMMENDATION SEE BELOW Normal [facility] Comment on above: Result Comment: ADA RECOMMENDED LIMIT 4.0 - 6.0 ADA THERAPEUTIC TARGET < 7.0 ACTION SUGGESTED > 7.0 Performed By: #### A 1C #### [facility] [address] [place] [address] Dr. Sera Quach Glucose [Mass/Vol] 209 mg/dL Normal [facility] Comment on above: Performed By: #### A 1C #### [facility] [address] [place] [address] Dr. Sera Quach HbA1c (Bld) [Mass fraction] 8.9 % Critically high 4.5-6.2 [facility] Comment on above: Performed By: #### A 1C #### [facility] [address] [place] [address] Dr. Sera Quach LIPID PROFILEon 01-11-2022 CHOL-HDL RATIO NORM SEE BELOW Normal [facility] Comment on above: Result Comment: 3.3 - 4.4 LOW RISK 4.4 - 7.1 AVERAGE RISK 7.1 - 11.0 MODERATE RISK >11.0 HIGH RISK Performed By: #### C MP, LIPID #### [facility] [address] [place] [address] Dr. Sera Quach Cholesterol [Mass/Vol] 154 mg/dL Normal <=200 [facility] Comment on above: Performed By: #### C MP, LIPID #### [facility] [address] [place] [address] Dr. Sera Quach Cholesterol in HDL [Mass/Vol] 39 mg/dL Critically low 40-60 [facility] Comment on above: Performed By: #### C MP, LIPID #### [facility] [address] [address] [address] Sera Quach Cholesterol in LDL [Mass/Vol] 98.0 mg/dL Normal [facility] Comment on above: Performed By: #### C MP, LIPID #### [facility] [address] [address] [address] Sera Quach Cholesterol.total/Cho lesterol in HDL [Mass ratio] 3.9 {ratio} Normal [facility] Comment on above: Performed By: #### C MP, LIPID #### [facility] [address] [address] [address] Sera Quach HDL NORMAL > or = 60 mg/dl - LOW CARDIOVASCULAR RISK <40 mg/dl - HIGH CARDIOVASCULAR RISK Normal [facility] Comment on above: Performed By: #### C MP, LIPID #### [facility] [address] [address] [address] Sera Quach LDL CALC NORMAL SEE BELOW Normal [facility] Comment on above: Result Comment: <100 mg/dl OPTIMAL 100 - 129 mg/dl NEAR OR ABOVE OPTIMAL 130 - 159 mg/dl BORDERLINE HIGH 160 - 189 mg/dl HIGH >190 mg/dl VERY HIGH Performed By: #### C MP, LIPID #### [facility] [address] [address] [address] Srea Quach Triglyceride [Mass/Vol] 85 mg/dL Normal <=150 [facility] Comment on above: Performed By: #### C MP, LIPID #### [facility] [address] [address] [address] Sera Quach VLDL CALC 17.0 mg/dL Normal [facility] Comment on above: Performed By: #### C MP, LIPID #### [facility] [address] [address] [address] Sera Quach MICROALBUMIN, RAND URon 05-1 mALB 1.3 mg/L Normal <=30.0 [facility] Comment on above: Performed By: #### M ALBR #### [facility] [address] [address] [address] Sera Quach PROF 14(COMP METB)on 022 Albumin [Mass/Vol] 3.9 g/dL Normal 3.4-5.0 [facility] Comment on above: Performed By: #### C MP, LIPID #### [facility] [address] [place] [address] Dr. Sera Quach Albumin/Globulin [Mass ratio] 1.1 {ratio} Normal [facility] Comment on above: Performed By: #### C MP, LIPID #### [facility] [address] [place] [address] Dr. Sera Quach ALP [Catalytic activity/Vol] 76 U/L Normal 46-116 [facility] Comment on above: Performed By: #### C MP, LIPID #### [facility] [address] [place] [address] Dr. Sera Quach ALT [Catalytic activity/Vol] 64 U/L Critically high 16-63 [facility] Comment on above: Performed By: #### C MP, LIPID #### [facility] [address] [place] [address] Dr. Sera Quach Anion gap [Moles/Vol] 12.7 mmol/L Normal [facility] Comment on above: Performed By: #### C MP, LIPID #### [facility] [address] [place] [address] Dr. Sera Quach AST [Catalytic activity/Vol] 37 U/L Normal 15-37 [facility] Comment on above: Performed By: #### C MP, LIPID #### [facility] [address] [place] [address] Dr. Sera Quach Bilirubin [Mass/Vol] 0.6 mg/dL Normal 0.2-1.0 [facility] Comment on above: Performed By: #### C MP, LIPID #### [facility] [address] [address] [address] Sera Quach Calcium [Mass/Vol] 9.0 mg/dL Normal 8.5-10.1 [facility] Comment on above: Performed By: #### C MP, LIPID #### [facility] [address] [address] [address] Sera Quach Chloride [Moles/Vol] 101 mmol/L Normal 98-107 [facility] Comment on above: Performed By: #### C MP, LIPID #### [facility] [address] [address] [address] Sera Quach CO2 [Moles/Vol] 27.6 mmol/L Normal 21.0-32.0 [facility] Comment on above: Performed By: #### C MP, LIPID #### [facility] [address] [place] [address] Dr. Sera Quach Creatinine [Mass/Vol] 0.75 mg/dL Normal 0.70-1.30 [facility] Comment on above: Performed By: #### C MP, LIPID #### [facility] [address] [place] [address] Dr. Sera Quach EGFR-AF CROATIAN >60 Normal >=60 [facility] Comment on above: Performed By: #### C MP, LIPID #### [facility] [address] [place] [address] Dr. Sera Quach EGFR-NON AF CROATIAN >60 Normal >=60 [facility] Comment on above: Performed By: #### C MP, LIPID #### [facility] [address] [place] [address] Dr. Sera Quach Globulin (S) [Mass/Vol] 3.6 g/dL Normal [facility] Comment on above: Performed By: #### C MP, LIPID #### [facility] [address] [place] [address] Dr. Sera Quach Glucose [Mass/Vol] 184 mg/dL Critically high 74-106 [facility] Comment on above: Performed By: #### C MP, LIPID #### [facility] [address] [place] [address] Dr. Srea Quach Potassium [Moles/Vol] 4.3 mmol/L Normal 3.5-5.1 [facility] Comment on above: Performed By: #### C MP, LIPID #### [facility] [address] [place] [address] Dr. Sera Quach Protein [Mass/Vol] 7.5 g/dL Normal 6.4-8.2 [facility] Comment on above: Performed By: #### C MP, LIPID #### [facility] [address] [address] [address] Sera Quach Sodium [Moles/Vol] 137 mmol/L Normal 136-145 [facility] Comment on above: Performed By: #### C MP, LIPID #### [facility] [address] [place] [address] Dr. Sera Quach Urea nitrogen [Mass/Vol] 12.0 mg/dL Normal 7.0-18.0 [facility] Comment on above: Performed By: #### C MP, LIPID #### [facility] [address] [place] [address] Dr. Sera Quach Urea nitrogen/Creatinine [Mass ratio] 16.0 mg/mg Normal [facility] Comment on above: Performed By: #### C MP, LIPID #### [facility] [address] [place] [address] Dr. Sera Quach UA RANDOM W/MICROSCOPICon BACTERIA NONE SEEN Normal NONE SEEN [facility] Comment on above: Performed By: #### U AMIC #### [facility] [address] [place] [address] Dr. Sera Quach Bilirubin Ql (U) Negative Normal NEGATIVE [facility] Comment on above: Performed By: #### U AMIC #### [facility] [address] [place] [address] Dr. Sera Quach CAST NONE SEEN Normal NONE SEEN [facility] Comment on above: Performed By: #### U AMIC #### [facility] [address] [place] [address] Dr. Sera Quach Clarity (U) CLOUDY Abnormal CLEAR [facility] Comment on above: Performed By: #### U AMIC #### [facility] [address] [place] [address] Dr. Sera Quach Color (U) YELLOW Normal YELLOW [facility] Comment on above: Performed By: #### U AMIC #### [facility] [address] [address] [address] Sera Quach Crystals LM Nom (Urine sed) SEEN Abnormal NONE SEEN [facility] Comment on above: Performed By: #### U AMIC #### [facility] [address] [address] [address] Sera Quach Epithelial cells LM Ql (Urine sed) RARE Normal NONE SEEN /RARE [facility] Comment on above: Performed By: #### U AMIC #### [facility] [address] [address] [address] Sera Quach Glucose Ql (U) Negative Normal NEGATIVE [facility] Comment on above: Performed By: #### U AMIC #### [facility] [address] [address] [address] Sera Quach Hemoglobin Ql (U) Negative Normal NEGATIVE [facility] Comment on above: Performed By: #### U AMIC #### [facility] [address] [address] [address] Sera Quach Ketones Ql (U) Negative Normal NEGATIVE [facility] Comment on above: Performed By: #### U AMIC #### [facility] [address] [address] [address] Sera Quach LEUKOCYTES Negative Normal NEGATIVE [facility] Comment on above: Performed By: #### U AMIC #### [facility] [address] [address] [address] Sera Quach MUCOUS NONE SEEN Normal NONE SEEN [facility] Comment on above: Performed By: #### U AMIC #### [facility] [address] [address] [address] Sera Quach Nitrite Ql (U) Negative Normal NEGATIVE [facility] Comment on above: Performed By: #### U AMIC #### [facility] [address] [address] [address] Sera Quach pH (U) 5.5 [pH] Normal 5-9 [facility] Comment on above: Performed By: #### U AMIC #### [facility] [address] [address] [address] Sera Quach RBC NONE SEEN Abnormal 0-2 [facility] Comment on above: Performed By: #### U AMIC #### [facility] [address] [place] [address] Dr. Sera Quach SPEC GRAVITY 1.025 Normal 1.005-<=1.025 [facility] Comment on above: Performed By: #### U AMIC #### [facility] [address] [address] [address] Sera Quach UA PROTEIN Negative Normal NEGATIVE/ TRACE [facility] Comment on above: Performed By: #### U AMIC #### [facility] [address] [place] [address] Dr. Sera Quach Urobilinogen Qn (U) 1.0 {Jessika'U}/dL Normal 0.2 - 1. 0 [facility] Comment on above: Performed By: #### U AMIC #### [facility] [address] [place] [address] Dr. Sera Quach WBC 0-2 Abnormal NONE SEEN [facility] Comment on above: Performed By: #### U AMIC #### [facility] [address] [place] [address] Dr. Sera Quach GLYCOHEMOGLOBIN A1Con 2020 ADA RECOMMENDATION ADA THERAPEUTIC TARGET 6.0 - 7.0 ACTION SUGGESTED > 7.[address] [facility] Comment on above: Performed By: #### A 1C #### [facility] [address] [place] [address] Dania Carreno Glucose [Mass/Vol] 174 mg/dL Normal [facility] Comment on above: Performed By: #### A 1C #### [facility] [address] [place] [address] Dania Carreno HbA1c (Bld) [Mass fraction] 7.7 % Critically high <=6.0 [facility] Comment on above: Performed By: #### A 1C #### [facility] [address] [place] [address] Dania Carreno PROF CHEM 8 (BAS METB)on Anion gap [Moles/Vol] 9.0 mmol/L Normal [facility] Comment on above: Performed By: #### B MP #### [facility] [address] [address] Dania Ev Calcium [Mass/Vol] 8.8 mg/dL Normal 8.4-10.2 [facility] Comment on above: Performed By: #### B MP #### [facility] [address] [address] Dania Ev Chloride [Moles/Vol] 102 mmol/L Normal 98-107 [facility] Comment on above: Performed By: #### B MP #### [facility] [address] [address] Dania Ev CO2 [Moles/Vol] 29.1 mmol/L Normal 22.0-30.0 [facility] Comment on above: Performed By: #### B MP #### [facility] [address] [address] Dania Ev Creatinine [Mass/Vol] 0.73 mg/dL Normal 0.66-1.25 [facility] Comment on above: Performed By: #### B MP #### [facility] [address] [place] [address] Dania Ev EGFR-AF CROATIAN >60 Normal >=60 [facility] Comment on above: Performed By: #### B MP #### [facility] [address] [place] [address] Dania Ev EGFR-NON AF CROATIAN >60 Normal >=60 [facility] Comment on above: Performed By: #### B MP #### [facility] [address] [address] Dania Ev Glucose [Mass/Vol] 141 mg/dL Critically high 74-106 [facility] Comment on above: Performed By: #### B MP #### [facility] [address] [place] [address] Dania Ev Potassium [Moles/Vol] 4.1 mmol/L Normal 3.4-5.0 [facility] Comment on above: Performed By: #### B MP #### [facility] [address] [place], [place] [address] Dania Ev Sodium [Moles/Vol] 136 mmol/L Critically low 137-145 [facility] Comment on above: Performed By: #### B MP #### [facility] [address] [place], [place] [address] Dania Ev Urea nitrogen [Mass/Vol] 9.0 mg/dL Normal 9.0-20.0 [facility] Comment on above: Performed By: #### B MP #### [facility] [address] [place], [place] [address] Dania Ev Urea nitrogen/Creatinine [Mass ratio] 12.3 mg/mg Normal [facility] Comment on above: Performed By: #### B MP #### [facility] [address] [place], [place] [address] Dania Carreno Vital Signs Date Time Vital Sign Value Performing Clinician Facility 10-08-2021 13:30-0500 Body height 190.5 cm Yue Pedroza Other [facility] Other 10-08-2021 13:30-0500 Body mass index (BMI) [Ratio] 45.12 kg/m2 Yue Pedroza Other [facility] Other 10-08-2021 13:30-0500 Body temperature 96.6 [degF] Yue Pedroza Other [facility] Other 10-08-2021 13:30-0500 Body weight 163.75 kg Yue Pedroza Other [facility] Other 10-08-2021 13:30-0500 SaO2% (BldA) [Mass fraction] 98 % Yue Pedroza Other [facility] Other Encounters Encounter Date Encounter Type Care Provider Facility Start: 02-13-2024 End: 02-13-2024 ambulatory TANA ARMANDOLINA Not Available Start: 02-07-2024 End: 02-07-2024 ambulatory VICKY SCRUGGS Not Available Start: 11-16-2023 End: 11-16-2023 ambulatory CECY AICHHOLZ Not Available Start: 11-12-2023 Refill Jone Cota MD Work Phone: [facility] Start: 10-11-2023 Refill Cecy Aichholz SKID ADZER Work Phone: [facility] Comment on above: Type 2 diabetes genet itus without complication, without long- term current use of insulin (CMS/[facility]) (Primary Dx); Type 2 diabetes mellitus without complications (CMS/[facility]) Start: 08-16-2023 End: 08-16-2023 ambulatory CECY AICHHOLZ Not Available Start: 04-23-2022 End: 04-23-2022 ambulatory [facility] RN CECY AICHHOLZ Facility:[facility] Start: 01-11-2022 End: 01-12-2022 ambulatory [facility] RN CECY AICHHOLZ Facility:[facility] Start: 10-08-2021 End: 10-08-2021 ambulatory Yue Pedroza Other [facility] Other Start: 10-08-2021 Office outpatient vi sit 15 minutes Yue Pedroza [facility] Start: 06-07-2021 End: 06-07-2021 ambulatory PROMPT CARE RN CECY AICHHOLZ Facility:[facility] Start: 05-05-2021 End: 05-06-2021 ambulatory PROMPT CARE RN CECY AICHHOLZ Facility:[facility] Start: 06-08-2018 End: 06-09-2018 Patient encounter procedure DEFAULT PHYSICIAN Facility:[facility] Start: 11-07-2013 End: 11-07-2013 Telephone encounter Haylee Garcia Work Phone: Rheumatology Comment on above: Appointment Cancelle d Plan of Treatment Date Care Activity Detail Author Start: 01-14-2024 Urine screening for protein Diabetes: Urine Protein Screening [facility] Start: 01-03-2024 End: 01-03-2024 Patient encounter procedure 01/03/2024 3:00 PM EDT Office Visit [facility] [address] [id number] Jone Cota MD [address] [id number] [facility] Start: 12-27-2023 Screening for malignant neoplasm of colon [facility] Start: 11-16-2023 End: 11-16-2023 Patient encounter procedure 11/16/2023 1:20 PM EDT Office Visit [facility] [address] [place] [id number] Cecy Hernandez NP [address] [place] [address] [facility] Start: 11-03-2023 Hemoglobin A1c measurement Diabetes: Hemoglobin A1C [facility] Start: 04-28-2023 Influenza vaccination [facility] Start: 04-28-2020 Influenza vaccination INFLUENZA (#1) [facility] Start: 2012 LIPID SCREEN LIPID SCREEN [facility] Start: 1996 DTaP,Tdap and Td Vaccines (1 - Tdap) DTaP,Tdap and Td Vaccines (1 - Tdap) [facility] Start: 1996 Urine microalbumin profile DTAP,TDAP,TD (1 - Tdap) [facility] Start: 1995 Adult BMI Screening Adult BMI Screening [facility] Start: 1995 Diabetic foot examination Diabetic Foot Exam [facility] Start: 1995 HIV SCREENING HIV SCREENING [facility] Start: 1989 Depression Screening Depression Screening [facility] Start: 1989 Tobacco Screening Tobacco Screening [facility] Start: 1987 Glaucoma screening Diabetes: Retinopathy Screening [facility] Start: 1977 Glaucoma screening Diabetic Ophthalmology Exam [facility] Start: 1977 Screening for malignant neoplasm of colon [facility] Start: 1977 Urine screening for protein Urine Microalbumin [facility] Immunizations Immunization Date Immunization Notes Care Provider [facility] 06-06-2023 influenza virus vaccine, unspecified formulation Cecy Hernandez NP Work Phone: [facility] 04-04-2014 tetanus toxoid, reduced diphtheria toxoid, and acellular pertussis vaccine, adsorbed Yue Kasia Other [facility] Other 06-12-2013 influenza virus vaccine, unspecified formulation Haylee Garcia [facility] Payers Date Payer Category Payer Medicaid [id number] 2022 Medicaid [id number] 2013 Medicaid [employer] MEDICA[employer] [id number] 2013-Present Medicaid [id number] 2013 Self-pay SELF PAY HSP/MED ICAL SELF PAY [id number] 2013-2015 SELF PAY Indemnity [id number] 1977 Unknown [id number] 1977 Unknown [id number] 1977 Unknown [id number] 2..[id number] 1977 Unknown [id number] [id number] 1977 Unknown [id number] 2..[id number] 1977 Unknown [id number] [id number] 1977 Unknown [id number] [id number] 1977 Unknown [id number] [id number] 1977 Unknown [id number] 1959 Unknown [id number] 1959 Unknown [id number] Unknown Social History Date Type Detail Facility Start: 05-20-2013 End: 08-16-2023 Tobacco smoking status ARIS Former smoker [facility] Start: 05-20-2013 Alcohol intake Not Asked [facility] Start: 1977 Sex Assigned At Not on file [facility] Start: 02-06-2019 End: 08-16-2023 Sex Assigned At [facility] Other History of tobacco use Current smoker [facility] History of tobacco use Cigarette Smoker [facility] Start: 08-16-2023 Alcohol intake Ex-drinker (finding) [facility] Start: 02-06-2019 End: 08-16-2023 History of Social function [facility] Start: 08-16-2023 Tobacco Comment Last smoked: 5-10 ye ars [facility] Start: 08-16-2023 Alcohol Comment caffeine 1-2 c ups per day [facility] Tobacco smoking status [facility] Tobacco smoking consumption unknown [facility] Childcare Unknown [facility] Medical Equipment Procedure Code Equipment Code Equipment Origin al Text Equipment Identifier Dates 1 each by Other route Daily as needed [id number] Start: 10-13-2022 1 each by Other route if needed [id number] Start: 10-13-2022 Evaluation note 10-08-2021 Note Date [...] no improvement in 2 to 3 days. 11 Sep, 2021 Other Additional time spent conducting pre-visit phone call, screening for symptoms, instructions on social distancing, application and removal of PPE, and cleaning of examination room, equipment and supplies was preformed. Patient education given for testing methodology and results. Patient care instructions given in writting by [facility] document. [facility] Other Evaluation note Note Date & Type [...] adenoidectomy 1988 Hospitalization History tonsillitis childhoo d [facility] Other Instructions Note Date & Type Note [...] section and content) DATE CREATED AUTHOR 11/14/2018 [facility] DATE CREATED AUTHOR AUTHOR'S ORGANIZ ATION 04/25/2022 [facility] DATE CREATED AUTHOR AUTHOR'S ORGANIZ ATION 02/15/2024 [facility] EP[employer] Source Comments (unrecognize d section and content) In the event this informatio n is protected by the Federal Confidentiality of Alcohol and Drug Abuse Patient Records regulations: The Federal rules restrict any use of the information to criminally investigate or prosecute any alcohol or drug abuse patient.[facility] Reason for Visit (unrecogniz ed section and [...] Care Teams (unrecognized sec tion and content) [employer] Relationship Specialty Start Date End Date Lexa Hickman MD PCP - General Family Medicine 03/15/23 Cecy Hernandez NP [address] [place] [address] Referring Physician Nurse Practitioner 03/15/23 FOR RECORDS [...] BE BASED ON THE PRIMARY CLINICAL RECORDS. [employer] [facility]. provides no warranty or guarantee of the accuracy or completeness of information in this document.
[2024-02-16 14:29] LABS: Basophils Absolute Auto 0.1 10^3/uL (0.0-0.1); Basophils Percent Auto 0.5 % (0.2-2.0); Eosinophils Absolute Auto 0.2 10^3/uL (0.0-0.7); Eosinophils Percent Auto 1.7 % (0.9-7.0); Hematocrit 45.2 % (42.0-54.0); Hemoglobin 14.9 g/dL (14.0-18.0); Immature Granulocytes Abs Auto 0.04 10^3/uL (0.00-0.03); Immature Granulocytes Pct Auto 0.4 % (0.0-0.5); Lymphocytes Absolute Auto 2.7 10^3/uL (1.2-3.8); Lymphocytes Percent Auto 28.5 % (20.5-60.0); Mean Corpuscular Hemoglobin 29.4 pg (25.9-34.0); Mean Corpuscular Volume 89.3 fL (80.0-94.0); Monocytes Absolute Auto 0.6 10^3/uL (0.3-0.8); Monocytes Percent Auto 6.2 % (1.7-12.0); Neutrophils Percent Auto 62.7 % (43.0-75.0); Platelet Count 336 10^3/uL (150-450); Red Blood Count 5.06 10^6/uL (4.70-6.10); Red Cell Distribution Width 13.3 % (11.0-15.0); White Blood Count 9.5 10^3/uL (4.0-11.0)
[2024-02-16 14:44] LABS: Estimated Average Glucose 148 mg/dL; Glycohemoglobin A1C 6.8 % (4.5-6.2)
[2024-02-16 14:56] LABS: Bilirubin Urine NEGATIVE (NEGATIVE); Blood Urine TRACE-I (NEGATIVE); Clarity Urine CLEAR (CLEAR); Color Urine YELLOW (YELLOW); Glucose Urine UA NEGATIVE (NEGATIVE); Ketones Urine NEGATIVE (NEGATIVE); Leukocyte Esterase Urine NEGATIVE (NEGATIVE); Nitrite Urine NEGATIVE (NEGATIVE); Protein Urine NEGATIVE (NEG/TRACE); Specific Gravity Urine 1.025 (1.005-1.025)
[2024-02-16 14:58] LABS: Urine Microscopic Indicated YES
[2024-02-16 15:04] LABS: Microalbum Creatinine Ratio Ur 6.9 mg/g (0.0-29.9); Microalbumin Urine Random <1.3 mg/dL (<=30.0)
[2024-02-16 15:10] LABS: Bacteria Urine NONE SEEN #/HPF (NONE SEEN); Mucus Urine MODERATE (NONE SEEN); Squamous Epithelial Cell Urine FEW #/LPF (NONE/RARE); WBC Urine 0-2 #/HPF (NONE SEEN)
[2024-02-16 15:52] LABS: Alanine Aminotransferase 27 U/L (16-63); Albumin Globulin Ratio 1.1; Albumin Level 3.7 g/dL (3.4-5.0); Alkaline Phosphatase 69 U/L (46-116); Anion Gap 11.6; Aspartate Amino Transferase 11 U/L (15-37); BUN Creatinine Ratio 14.5; Bilirubin Total 0.6 mg/dL (0.2-1.0); Calcium 8.8 mg/dL (8.5-10.1); Carbon Dioxide 27.3 mmol/L (21.0-32.0); Chloride 105 mmol/L (98-107); Chol HDL Ratio 2.9; Cholesterol 136 mg/dL (<=200); Estimated GFR (African America >60 (>=60); Estimated GFR (Non-African Ame >60 (>=60); Globulin 3.5 g/dL; Glucose 112 mg/dL (74-106); HDL Cholesterol 47 mg/dL (40-60); LDL Cholesterol Calculated 74.2 mg/dL; Potassium 3.9 mmol/L (3.5-5.1); Sodium 140 mmol/L (136-145); Total Protein 7.2 g/dL (6.4-8.2); Triglycerides 74 mg/dL (<=150); VLDL CHOLESTEROL 14.8 mg/dL
== END 2024-02-16 13:55 | disposition home or self-care (01) ==
LOC: LAB 13:55
PROVIDERS: PCP Nurse Practitioner; Visit Provider Nurse Practitioner
DX: E11.9 Type 2 diabetes mellitus without complications (principal); I10 Essential (primary) hypertension
CPT/HCPCS: 36415; 80053; 80061; 81001; 82043; 82570; 83036; 85025

== ENCOUNTER 2024-03-06 09:51 | Outpatient (OUT) | payer MEDICAID, SELFPAY ==
[2024-03-07 15:10] LABS: Lyme Total Antibody CIA Negative (Negative)
== END 2024-03-06 09:52 | disposition home or self-care (01) ==
LOC: LAB 09:53
PROVIDERS: PCP Nurse Practitioner; Visit Provider Nurse Practitioner
DX: M25.541 Pain in joints of right hand (principal); M25.542 Pain in joints of left hand
CPT/HCPCS: 36415; 86618

== ENCOUNTER 2024-03-19 15:33 | Emergency (ER) | payer MEDICAID, SELFPAY ==
[2024-03-19 15:44] VITALS: BP 147/91; PULSE 87; TEMP 37; O2SAT 96; BMI 42.5
--- OUTSIDE RECORDS SUMMARY | 2024-03-19 15:50 | XMS_ITS | CCD ---
Author Organization [facility] Care Team Providers Care Labor Arbitrator Name Role Phone PHYSICIAN, DEFAULT Admitting Unavailable PHYSICIAN, DEFAULT Attending Unavailable PEGGY GAYTAN Primary Care Unavailable Primo Downing Primary Care Provider Yue Pedroza Unavailable AICHHOLZ, WATER SUPERINTENDENT CECY Primary Care Unavailable AICHHOLZ, WATER SUPERINTENDENT CECY Admitting Unavailable AICHHOLZ, WATER SUPERINTENDENT CECY Attending Unavailable AICHHOLZ, WATER SUPERINTENDENT CECY Consulting Unavailable AICHHOLZ, WATER SUPERINTENDENT CECY Primary Care Unavailable AICHHOLZ, WATER SUPERINTENDENT CECY Admitting Unavailable AICHHOLZ, WATER SUPERINTENDENT CECY Attending Unavailable AICHHOLZ, WATER SUPERINTENDENT CECY Consulting Unavailable AICHHOLZ, WATER SUPERINTENDENT CECY Admitting Unavailable AICHHOLZ, WATER SUPERINTENDENT CECY Attending Unavailable AICHHOLZ, WATER SUPERINTENDENT CECY Consulting Unavailable AICHHOLZ, WATER SUPERINTENDENT CECY Primary Care Unavailable AICHHOLZ, WATER SUPERINTENDENT CECY Primary Care Unavailable VISHAL, DR THANG Nichols Attending Unavailmilvia RODGERS, DR THANG Nichols Consulting Unavailmilvia RODGERS, DR THANG Nichols Admitting UnavailJAKOB Solano Consulting Unavailable Lexa Hickman MD Primary Care Provider Aichholz MAINTENANCE SUPERVISOR ELECTRICAL, Cecy Unavailable Unavailable Primary Care Provider Unavailabl e AICHHOLZ, CECY Attending Unavailable VICKY SCRUGGS Attending Unavailable TANA CARDENAS Attending Unavailable AICHHOLZ, CECY Attending Unavailable JULIET HWANG Attending Unavailable AICHHOLZ, CECY Attending Unavailable Allergies Allergy Classification Reported Allergen(s) Allergy Type Date of Onset Reaction(s) Facility (1 source) Adhesive Tape Allergy to substance 02-20-20 Rash [facility] (4 sources) Penicillins; Translations: [Penicillins] Drug Allergy 01-03-20 13 Unknown [facility] (1 source) Penicillins (Antibiotic) Drug allergy rash. when he was kid [employer] Other (1 source) Desonide Drug Allergy 11-03-19 17 [facility] [place] [facility] (1 source) Oxytetracycline Drug Allergy 01-03-20 13 [facility] [place] [facility] (1 source) Cashew nut Allergy to substance 08-16-20 Dermatitis [facility] (1 source) Oxytetracycline Drug Allergy 08-16-20 23 Unknown [facility] (1 source) Penicillin G Drug Allergy 08-16-20 Unknown [facility] (1 source) Other Allergy to substance 08-16-20 Unknown [facility] (1 source) Wound Dressing Adhesive Propensity to adverse reactions to drug 08-16-20 Rash [facility] (1 source) Adhesive agent Propensity to adverse reactions to drug 02-20-20 13 Rash [facility] Medications Current Medications Medication Drug [...] mg tablet Actos Active polyethylene glycol 3350 99234 mg powder for oral solution (1 source) [...] on above: Take 1 tablet by thang twice daily. 0.98 ml etanercept 50 mg/ml [...] on above: Take 1 tablet by thang once daily. hydroxychloroquine sulfate 200 mg oral [...] initial encounter; Translations: [FALL SAME LVL STRK OTH SHRP OBJ INT] Onset: 04-25-2022 Episodic Essential hypertension (2 sources) Essential (primary) hypertension; Translations: [Benign essential hypertension] Onset: 04-25-2022 08-16-2023 Chronic Mood disorders (1 source) Depressive disorder; Translations: [Depression] Onset: 08-16-2023 08-16-2023 Chronic Other aftercare (1 source) intermediate card tender (current) use of oral hypoglycemic drugs; Translations: [SCIENTIFIC SYSTEMS ANALYST USE ORAL HYPOGLYCEMIC DX] Onset: 04-25-2022 Episodic Other aftercare (1 source) intermediate card tender (current) use of aspirin; Translations: [FDC CURRENT USE OF ASPIRIN] Onset: 04-25-2022 Episodic Other aftercare (1 source) Other truck terminal manager (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 Sera Quach Basophils/100 WBC (Bld) 0.4 % Normal 0.2-2.0 [facility] [place] [facility] Comment on above: Performed By: #### C BC #### [facility] [address] [address] [address] Sera Quach EO # 0.3 103/ul Normal 0.0-0.7 [facility] Comment on above: Performed By: #### C BC #### [facility] [address] [address] [address] Sera Quach Eosinophils/100 WBC (Bld) 2.8 % Normal 0.9-7.0 [facility] Comment on above: Performed By: #### C BC #### [facility] [address] [address] [address] Sera Quach Erythrocyte distribution width (RBC) [Ratio] 13.1 % Normal 11.0-15.0 [facility] Comment on above: Performed By: #### C BC #### [facility] [address] [place] [address] Dr. Sera Quach Hematocrit (Bld) [Volume fraction] 47.3 % Normal 42.0-54.0 [facility] Comment on above: Performed By: #### C BC #### [facility] [address] [place] [address] Dr. Sera Quach Hemoglobin (Bld) [Mass/Vol] 15.2 g/dL Normal 14.0-18.0 [facility] Comment on above: Performed By: #### C BC #### [facility] [address] [place] [address] Dr. Sera Quach IG # 0.03 10e3/ul Normal 0.00-0.03 [facility] Comment on above: Performed By: #### C BC #### [facility] [address] [place] [address] Dr. Sera Quach IG % 0.3 % Normal 0.0-0.5 [facility] Comment on above: Performed By: #### C BC #### [facility] [address] [place] [address] Dr. Sera Quach LYMPH # 2.3 103/ul Normal 1.2-3.8 [facility] Comment on above: Performed By: #### C BC #### [facility] [address] [place] [address] Dr. Sera Quach Lymphocytes/100 WBC (Bld) 25.5 % Normal 20.5-60.0 [facility] Comment on above: Performed By: #### C BC #### [facility] [address] [place] [address] Dr. Sera Quach MANUAL DIFF REQ NO Normal [facility] Comment on above: Performed By: #### C BC #### [facility] [address] [place] [address] Dr. Sera Quach MCH (RBC) [Entitic mass] 29.2 pg Normal 25.9-34.0 [facility] Comment on above: Performed By: #### C BC #### [facility] [address] [address] [address] Sera Quach MCHC (RBC) [Mass/Vol] 32.1 g/dL Normal 29.9-35.2 [facility] Comment on above: Performed By: #### C BC #### [facility] [address] [address] [address] Sera Quach MCV (RBC) [Entitic vol] 91.0 fL Normal 80.0-94.0 [facility] Comment on above: Performed By: #### C BC #### [facility] [address] [place] [address] Dr. Sera Quach MONO # 0.7 103/ul Normal 0.3-0.8 [facility] Comment on above: Performed By: #### C BC #### [facility] [address] [place] [address] Dr. Sera Quach Monocytes/100 WBC (Bld) 7.1 % Normal 1.7-12.0 [facility] Comment on above: Performed By: #### C BC #### [facility] [address] [place] [address] Dr. Sera Quach NEUT # 5.9 103/ul Normal 1.4-6.5 [facility] Comment on above: Performed By: #### C BC #### [facility] [address] [place] [address] Dr. Sera Quach Neutrophils/100 WBC (Bld) 63.9 % Normal 43.0-75.0 [facility] Comment on above: Performed By: #### C BC #### [facility] [address] [place] [address] Dr. Sera Quach Platelet mean volume (Bld) [Entitic vol] 9.3 fL Critically low 9.5-13.5 [facility] Comment on above: Performed By: #### C BC #### [facility] [address] [place] [address] Dr. Sera Quach PLT 316 103/ul Normal 150-450 [facility] Comment on above: Performed By: #### C BC #### [facility] [address] [address] [address] Sera Quach RBC 5.20 106/ul Normal 4.70-6.10 [facility] Comment on above: Performed By: #### C BC #### [facility] [address] [place] [address] Dr. Sera Quach WBC 9.2 103/ul Normal 4.0-11.0 [facility] Comment on above: Performed By: #### C BC #### [facility] [address] [place] [address] Dr. Sera Quach GLYCOHEMOGLOBIN A1Con 2021 ADA RECOMMENDATION SEE BELOW Normal [facility] Comment on above: Result Comment: ADA RECOMMENDED LIMIT 4.0 - 6.0 ADA THERAPEUTIC TARGET < 7.0 ACTION SUGGESTED > 7.0 Performed By: #### A 1C #### [facility] [address] [place] [address] Dr. Sera Quach Glucose [Mass/Vol] 209 mg/dL Normal [facility] Comment on above: Performed By: #### A 1C #### [facility] [address] [place] [address] Dr. Sera Quach HbA1c (Bld) [Mass fraction] 8.9 % Critically high 4.5-6.2 [facility] Comment on above: Performed By: #### A 1C #### [facility] [address] [place] [address] Dr. Sera Quach LIPID PROFILEon 01-11-2022 CHOL-HDL RATIO NORM SEE BELOW Normal [facility] Comment on above: Result Comment: 3.3 - 4.4 LOW RISK 4.4 - 7.1 AVERAGE RISK 7.1 - 11.0 MODERATE RISK >11.0 HIGH RISK Performed By: #### C MP, LIPID #### [facility] [address] [place] [address] Dr. Sera Quach Cholesterol [Mass/Vol] 154 mg/dL Normal <=200 [facility] Comment on above: Performed By: #### C MP, LIPID #### [facility] [address] [place] [address] Dr. Sera Quach Cholesterol in HDL [Mass/Vol] 39 mg/dL Critically low 40-60 [facility] Comment on above: Performed By: #### C MP, LIPID #### [facility] [address] [address] [address] Sera Quach Cholesterol in LDL [Mass/Vol] 98.0 mg/dL Normal [facility] Comment on above: Performed By: #### C MP, LIPID #### [facility] [address] [address] [address] Sera Quach Cholesterol.total/Cho lesterol in HDL [Mass ratio] 3.9 {ratio} Normal [facility] Comment on above: Performed By: #### C MP, LIPID #### [facility] [address] [address] [address] Sera Quach HDL NORMAL > or = 60 mg/dl - LOW CARDIOVASCULAR RISK <40 mg/dl - HIGH CARDIOVASCULAR RISK Normal [facility] Comment on above: Performed By: #### C MP, LIPID #### [facility] [address] [place] [address] Dr. Sera Quach LDL CALC NORMAL SEE BELOW Normal [facility] Comment on above: Result Comment: <100 mg/dl OPTIMAL 100 - 129 mg/dl NEAR OR ABOVE OPTIMAL 130 - 159 mg/dl BORDERLINE HIGH 160 - 189 mg/dl HIGH >190 mg/dl VERY HIGH Performed By: #### C MP, LIPID #### [facility] [address] [address] [address] Sera Quach Triglyceride [Mass/Vol] 85 mg/dL Normal <=150 [facility] Comment on above: Performed By: #### C MP, LIPID #### [facility] [address] [address] [address] Sera Quach VLDL CALC 17.0 mg/dL Normal [facility] Comment on above: Performed By: #### C MP, LIPID #### [facility] [address] [address] [address] Sera Quach MICROALBUMIN, RAND URon 05-1 mALB 1.3 mg/L Normal <=30.0 [facility] Comment on above: Performed By: #### M ALBR #### [facility] [address] [address] [address] Sera Quach PROF 14(COMP METB)on 022 Albumin [Mass/Vol] 3.9 g/dL Normal 3.4-5.0 [facility] Comment on above: Performed By: #### C MP, LIPID #### [facility] [address] [place] [address] Dr. Sera Quach Albumin/Globulin [Mass ratio] 1.1 {ratio} Normal [facility] Comment on above: Performed By: #### C MP, LIPID #### [facility] [address] [place] [address] Dr. Sera Quach ALP [Catalytic activity/Vol] 76 U/L Normal 46-116 [facility] Comment on above: Performed By: #### C MP, LIPID #### [facility] [address] [place] [address] Dr. Sera Quach ALT [Catalytic activity/Vol] 64 U/L Critically high 16-63 [facility] Comment on above: Performed By: #### C MP, LIPID #### [facility] [address] [place] [address] Dr. Sera Quach Anion gap [Moles/Vol] 12.7 mmol/L Normal [facility] Comment on above: Performed By: #### C MP, LIPID #### [facility] [address] [place] [address] Dr. Sera Quach AST [Catalytic activity/Vol] 37 U/L Normal 15-37 [facility] Comment on above: Performed By: #### C MP, LIPID #### [facility] [address] [place] [address] Dr. Sera Quach Bilirubin [Mass/Vol] 0.6 mg/dL Normal 0.2-1.0 [facility] Comment on above: Performed By: #### C MP, LIPID #### [facility] [address] [place] [address] Dr. Sera Quach Calcium [Mass/Vol] 9.0 mg/dL Normal 8.5-10.1 [facility] Comment on above: Performed By: #### C MP, LIPID #### [facility] [address] [address] [address] Sera Quach Chloride [Moles/Vol] 101 mmol/L Normal 98-107 [facility] Comment on above: Performed By: #### C MP, LIPID #### [facility] [address] [address] [address] Sera Quach CO2 [Moles/Vol] 27.6 mmol/L Normal 21.0-32.0 [facility] Comment on above: Performed By: #### C MP, LIPID #### [facility] [address] [place] [address] Dr. Sera Quach Creatinine [Mass/Vol] 0.75 mg/dL Normal 0.70-1.30 [facility] Comment on above: Performed By: #### C MP, LIPID #### [facility] [address] [place] [address] Dr. Sera Quach EGFR-AF ETHIOPIAN >60 Normal >=60 [facility] Comment on above: Performed By: #### C MP, LIPID #### [facility] [address] [place] [address] Dr. Sera Quach EGFR-NON AF ETHIOPIAN >60 Normal >=60 [facility] Comment on above: Performed By: #### C MP, LIPID #### [facility] [address] [place] [address] Dr. Sera Quach Globulin (S) [Mass/Vol] 3.6 g/dL Normal [facility] Comment on above: Performed By: #### C MP, LIPID #### [facility] [address] [place] [address] Dr. Sera Quach Glucose [Mass/Vol] 184 mg/dL Critically high 74-106 [facility] Comment on above: Performed By: #### C MP, LIPID #### [facility] [address] [place] [address] Dr. Sera Quach Potassium [Moles/Vol] 4.3 mmol/L Normal 3.5-5.1 [facility] Comment on above: Performed By: #### C MP, LIPID #### [facility] [address] [address] [address] Sera Quach Protein [Mass/Vol] 7.5 g/dL Normal 6.4-8.2 [facility] Comment on above: Performed By: #### C MP, LIPID #### [facility] [address] [address] [address] Sera Quach Sodium [Moles/Vol] 137 mmol/L Normal 136-145 [facility] Comment on above: Performed By: #### C MP, LIPID #### [facility] [address] [address] [address] Sera Quach Urea nitrogen [Mass/Vol] 12.0 mg/dL Normal 7.0-18.0 [facility] Comment on above: Performed By: #### C MP, LIPID #### [facility] [address] [address] [address] Sera Quach Urea nitrogen/Creatinine [Mass ratio] 16.0 mg/mg Normal [facility] Comment on above: Performed By: #### C MP, LIPID #### [facility] [address] [place] [address] Dr. Sera Quach UA RANDOM W/MICROSCOPICon BACTERIA NONE SEEN Normal NONE SEEN [facility] Comment on above: Performed By: #### U AMIC #### [facility] [address] [place] [address] Dr. Sera Quach Bilirubin Ql (U) Negative Normal NEGATIVE [facility] Comment on above: Performed By: #### U AMIC #### [facility] [address] [place] [address] Dr. Sera Quach CAST NONE SEEN Normal NONE SEEN [facility] Comment on above: Performed By: #### U AMIC #### [facility] [address] [place] [address] Dr. Sera Quach Clarity (U) CLOUDY Abnormal CLEAR [facility] Comment on above: Performed By: #### U AMIC #### [facility] [address] [place] [address] Dr. Sera Quach Color (U) YELLOW Normal YELLOW [facility] Comment on above: Performed By: #### U AMIC #### [facility] [address] [address] [address] Sera Quach Crystals LM Nom (Urine sed) SEEN Abnormal NONE SEEN [facility] Comment on above: Performed By: #### U AMIC #### [facility] [address] [address] [address] Srea Quach Epithelial cells LM Ql (Urine sed) RARE Normal NONE SEEN /RARE [facility] Comment on above: Performed By: #### U AMIC #### [facility] [address] [address] [address] Sera Quach Glucose Ql (U) Negative Normal NEGATIVE [facility] [place] [facility] Comment on above: Performed By: #### U AMIC #### [facility] [address] [place] [address] Dr. Sera Quach Hemoglobin Ql (U) Negative Normal NEGATIVE [facility] Comment on above: Performed By: #### U AMIC #### [facility] [address] [address] [address] Sera Quach Ketones Ql (U) Negative Normal NEGATIVE [facility] Comment on above: Performed By: #### U AMIC #### [facility] [address] [address] [address] Sera Quach LEUKOCYTES Negative Normal NEGATIVE [facility] Comment on above: Performed By: #### U AMIC #### [facility] [address] [address] [address] Sera Quach MUCOUS NONE SEEN Normal NONE SEEN [facility] Comment on above: Performed By: #### U AMIC #### [facility] [address] [address] [address] Sera Quach Nitrite Ql (U) Negative Normal NEGATIVE [facility] Comment on above: Performed By: #### U AMIC #### [facility] [address] [address] [address] Sera Quach pH (U) 5.5 [pH] Normal 5-9 [facility] Comment on above: Performed By: #### U AMIC #### [facility] [address] [address] [address] Sera Quach RBC NONE SEEN Abnormal 0-2 [facility] Comment on above: Performed By: #### U AMIC #### [facility] [address] [address] [address] Sera Quach SPEC GRAVITY 1.025 Normal 1.005-<=1.025 The [facility] Comment on above: Performed By: #### U AMIC #### [facility] [address] [address] [address] Sera Quach UA PROTEIN Negative Normal NEGATIVE/ TRACE [facility] Comment on above: Performed By: #### U AMIC #### [facility] [address] [address] [address] Sera Quach Urobilinogen Qn (U) 1.0 {Jessika'U}/dL Normal 0.2 - 1. 0 [facility] Comment on above: Performed By: #### U AMIC #### [facility] [address] [address] [address] Sera Quach WBC 0-2 Abnormal NONE SEEN [facility] Comment on above: Performed By: #### U AMIC #### [facility] [address] [address] [address] Sera Quach GLYCOHEMOGLOBIN A1Con 2020 ADA RECOMMENDATION ADA THERAPEUTIC TARGET 6.0 - 7.0 ACTION SUGGESTED > 7.0 Normal [facility] Comment on above: Performed By: #### A 1C #### [facility] [address] [address] Dania Ev Glucose [Mass/Vol] 174 mg/dL Normal [facility] Comment on above: Performed By: #### A 1C #### [facility] [address] [address] Dania Ev HbA1c (Bld) [Mass fraction] 7.7 % Critically high <=6.0 [facility] Comment on above: Performed By: #### A 1C #### [facility] [address] [id number] Dania Ev PROF CHEM 8 (BAS METB)on Anion gap [Moles/Vol] 9.0 mmol/L Normal [facility] Comment on above: Performed By: #### B MP #### [facility] [address] [id number] Dania Ev Calcium [Mass/Vol] 8.8 mg/dL Normal 8.4-10.2 [facility] Comment on above: Performed By: #### B MP #### [facility] [address] [place] [address] Dania Ev Chloride [Moles/Vol] 102 mmol/L Normal 98-107 [facility] Comment on above: Performed By: #### B MP #### [facility] [address] [place] [address] Dania Ev CO2 [Moles/Vol] 29.1 mmol/L Normal 22.0-30.0 [facility] Comment on above: Performed By: #### B MP #### [facility] [address] [place], [place] [id number] Dania Ev Creatinine [Mass/Vol] 0.73 mg/dL Normal 0.66-1.25 [facility] Comment on above: Performed By: #### B MP #### [facility] [address] [place], [place] [id number] Dania Ev EGFR-AF ETHIOPIAN >60 Normal >=60 [facility] Comment on above: Performed By: #### B MP #### [facility] [address] [place], [place] [id number] Dania Ev EGFR-NON AF ETHIOPIAN >60 Normal >=60 [facility] Comment on above: Performed By: #### B MP #### [facility] [address] [place], [place] [id number] Dania Ev Glucose [Mass/Vol] 141 mg/dL Critically high 74-106 [facility] Comment on above: Performed By: #### B MP #### [facility] [address] [place], [place] [id number] Dania Ev Potassium [Moles/Vol] 4.1 mmol/L Normal 3.4-5.0 [facility] Comment on above: Performed By: #### B MP #### [facility] [address] [place], [place] [address] Dania Carreno Sodium [Moles/Vol] 136 mmol/L Critically low 137-145 [facility] Comment on above: Performed By: #### B MP #### [facility] [address] [place], [place] [address] Dania Ev Urea nitrogen [Mass/Vol] 9.0 mg/dL Normal 9.0-20.0 [facility] Comment on above: Performed By: #### B MP #### [facility] [address] [place], [place] [address] Dania Ev Urea nitrogen/Creatinine [Mass ratio] 12.3 mg/mg Normal [facility] Comment on above: Performed By: #### B MP #### [facility] [address] [place], [place] [address] Dania Carreno Vital Signs Date Time Vital Sign Value Performing Clinician Facility 10-08-2021 13:30-0500 Body height 190.5 cm Yue Richmond Other [facility] Other 10-08-2021 13:30-0500 Body mass index (BMI) [Ratio] 45.12 kg/m2 Yue Kasia Other [facility] Other 10-08-2021 13:30-0500 Body temperature 96.6 [degF] Yue Kasia Other [facility] Other 10-08-2021 13:30-0500 Body weight 163.75 kg Yue Kasia Other [facility] Other 10-08-2021 13:30-0500 SaO2% (BldA) [Mass fraction] 98 % Yue Kasia Other [facility] Other Encounters Encounter Date Encounter Type Care Provider Facility Start: 03-04-2024 End: 03-04-2024 ambulatory JULIET HWANG Not Available Start: 02-20-2024 End: 02-20-2024 ambulatory CECY AICHHOLZ Not Available Start: 02-13-2024 End: 02-13-2024 ambulatory TANA CARDENAS Not Available Start: 02-07-2024 End: 02-07-2024 ambulatory VICKY SCRUGGS Not Available Start: 11-16-2023 End: 11-16-2023 ambulatory CECY AICHHOLZ Not Available Start: 11-12-2023 Refill Jone Cota MD Work Phone: [facility] Start: 10-11-2023 Refill Cecy Aichholz MAINTENANCE SUPERVISOR ELECTRICAL Work Phone: [facility] Comment on above: Type 2 diabetes genet itus without complication, without long- term current use of insulin (CMS/[facility]) (Primary Dx); Type 2 diabetes mellitus without complications (CMS/[facility]) Start: 08-16-2023 End: 08-16-2023 ambulatory CECY AICHHOLZ Not Available Start: 04-23-2022 End: 04-23-2022 ambulatory WATER SUPERINTENDENT CECY AICHHOLZ Facility:[facility] Start: 01-11-2022 End: 01-12-2022 ambulatory WATER SUPERINTENDENT CECY AICHHOLZ Facility:[facility] Start: 10-08-2021 End: 10-08-2021 ambulatory Yue Pedroza Other [employer] Other Start: 10-08-2021 Office outpatient vi sit 15 minutes Yue Pedroza [facility] Start: 06-07-2021 End: 06-07-2021 ambulatory WATER SUPERINTENDENT CECY AICHHOLZ Facility:[facility] Start: 05-05-2021 End: 05-06-2021 ambulatory WATER SUPERINTENDENT CECY AICHHOLZ Facility:[facility] Start: 06-08-2018 End: 06-09-2018 Patient encounter procedure DEFAULT PHYSICIAN Facility:[facility] Start: 11-07-2013 End: 11-07-2013 Telephone encounter Haylee Garcia Work Phone: Rheumatology Comment on above: Appointment Cancelle d Plan of Treatment Date Care Activity Detail Author Start: 01-14-2024 Urine screening for protein Diabetes: Urine Protein Screening [facility] Start: 01-03-2024 End: 01-03-2024 Patient encounter procedure 01/03/2024 3:00 PM EDT Office Visit [facility] [address] [phone] Jone Cota MD [address] [address] [facility] Start: 12-27-2023 Screening for malignant neoplasm of colon [facility] Start: 11-16-2023 End: 11-16-2023 Patient encounter procedure 11/16/2023 1:20 PM EDT Office Visit [facility] [address] [place] [address] Cecy Hernandez, DARIO [address] [place] [address] [facility] Start: 11-03-2023 Hemoglobin A1c measurement Diabetes: Hemoglobin A1C [facility] Start: 04-28-2023 Influenza vaccination Influenza Vaccine [facility] Start: 04-28-2020 Influenza vaccination INFLUENZA (#1) [facility] Start: 2012 LIPID SCREEN LIPID SCREEN [facility] Start: 1996 DTaP,Tdap and Td Vaccines (1 - Tdap) DTaP,Tdap and Td Vaccines (1 - Tdap) [facility] Start: 1996 Urine microalbumin profile DTAP,TDAP,TD (1 - Tdap) [facility] Start: 1995 Adult BMI Screening Adult BMI Screening [facility] Start: 1995 Diabetic foot examination Diabetic Foot Exam [facility] Start: 1995 HIV SCREENING HIV SCREENING [facility] Start: 1989 Depression Screening [facility] Start: 1989 Tobacco Screening Tobacco Screening [facility] Start: 1987 Glaucoma screening Diabetes: Retinopathy Screening [facility] Start: 1977 Glaucoma screening Diabetic Ophthalmology Exam [facility] Start: 1977 Screening for malignant neoplasm of colon [facility] Start: 1977 Urine screening for protein Urine Microalbumin [facility] Immunizations Immunization Date Immunization Notes Care Provider Fa cility 06-06-2023 influenza virus vaccine, unspecified formulation Cecy Hernandez MAINTENANCE SUPERVISOR ELECTRICAL Work Phone: [facility] 04-04-2014 tetanus toxoid, reduced diphtheria toxoid, and acellular pertussis vaccine, adsorbed Yue Kasia Other [employer] Other 06-12-2013 influenza virus vaccine, unspecified formulation Haylee Garcia [facility] Payers Date Payer Category Payer Medicaid [id number] 2022 Medicaid [id number] 2013 Medicaid [employer]ICA[employer] [id number] 2013-Present Medicaid [id number] 2013 Self-pay SELF PAY HSP/MED ICAL SELF PAY [id number] 2013-2015 SELF PAY Indemnity [id number] 1977 Unknown [id number] 1977 Unknown [id number] 1977 Unknown [id number] 1977 Unknown [id number] 1977 Unknown [id number] 1977 Unknown [id number] 1977 Unknown [id number] 1977 Unknown [id number] 1977 Unknown [id number] 1977 Unknown [id number] [id number] 1977 Unknown [id number] 1959 Unknown [id number] 1959 Unknown [id number] Unknown Social History Date Type Detail Facility Start: 05-20-2013 End: 08-16-2023 Tobacco smoking status [facility] Former smoker [facility] Start: 05-20-2013 Alcohol intake Not Asked [facility] Start: 1975 Sex Assigned At Not on file [facility] Start: 02-06-2019 End: 08-16-2023 Sex Assigned At [facility] Other History of tobacco use Current smoker [facility] History of tobacco use Cigarette Smoker [facility] Start: 08-16-2023 Alcohol intake Ex-drinker (finding) [facility] Start: 02-06-2019 End: 08-16-2023 History of Social function [facility] Start: 08-16-2023 Tobacco Comment Last smoked: 5-10 ye ars [facility] Start: 08-16-2023 Alcohol Comment caffeine 1-2 c ups per day [facility] Tobacco smoking status [facility] Tobacco smoking consumption unknown [facility] Childcare Unknown [facility] Medical Equipment Procedure Code Equipment Code Equipment Origin al Text Equipment Identifier Dates 1 each by Other route Daily as needed [id number] Start: 10-13-2022 1 each by Other route if needed [id number] Start: 10-13-2022 Evaluation note 10-08-2021 Note Date [...] Patient care instructions given in writting by [facility] document. [employer] Other Evaluation note Note Date & Type [...] adenoidectomy 1988 Hospitalization History tonsillitis childhoo d [employer] Other Instructions Note Date & Type Note [...] and content) DATE CREATED AUTHOR 11/14/2018 [facility] DATE CREATED AUTHOR AUTHOR'S ORGANIZ ATION 04/25/2022 [facility] DATE CREATED AUTHOR AUTHOR'S ORGANIZ ATION 03/11/2024 [facility] EPIC Source Comments (unrecognize d section and content) In the event this informatio n is protected by the Federal Confidentiality of Alcohol and Drug Abuse Patient Records regulations: The Federal rules restrict any use of the information to criminally investigate or prosecute any alcohol or drug abuse patient.[facility] Reason for Visit (unrecogniz ed section [...] Care Teams (unrecognized sec tion and content) 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 [facility] provides no warranty or guarantee of the accuracy or completeness of information in this document.
--- NOTE | 2024-03-19 16:19 | CT_ITS ---
The [address] [address] Patient Name: BHUMIKA BRYANT MRN: [id number] date: 1975 Sex: M Assigned Patient Location: ER Current Patient Location: ER Accession/Order Number: [id number] Exam Date: 03/19/2024 16:40 Report Date: 03/19/2024 18:02 At the request of: KATHARINE CHEN Procedure: CT cervical spine wo con EXAM: CT cervical spine wo con HISTORY: Worsening bilateral hand numbness. TECHNIQUE: Axial CT scans through the cervical spine were obtained without contrast administration. Sagittal and coronal reconstruction images were obtained. A trauma Dose reduction techniques were achieved by using: automated exposure control and/or adjustment of mA and /or kV according to patient size and/or the use of an iterative reconstruction technique. COMPARISON: 01/16/2024. FINDINGS: Posterior discovertebral complexes and thickened calcified posterior longitudinal ligament at C2-C3 and C3-C4 result in mild central spinal stenosis at C2-C3 and moderate central spinal stenosis at C3-C4. Mild posterior discovertebral complexes at C4-C5, C5-C6 and C6-C7. Moderate anterior endplate spurs from C4 to C7. No neural foraminal stenosis. No destructive bony lesion. The prevertebral soft tissue space appears normal. Visualized intracranial contents appear normal. The visualized neck shows no adenopathy. Visualized lung apices are clear. CT/CT cervical spine wo con IMPRESSION: Posterior discovertebral complexes and thickened calcified posterior longitudinal ligament at C2-C3 and C3-C4 result in mild central spinal stenosis at C2-C3 and moderate central spinal stenosis at C3-C4. No neural foramina stenosis. Electronically authenticated by: DARYA ALVARADO Date: 03/19/2024 18:02
[2024-03-19] MEDS: METHYLPREDNISOLONE SOD SUCC PF 125 MG/2 ML VIAL IM (16:31)
--- NOTE | 2024-03-19 17:20 | ED_ITS ---
HPI HPI - General Adult General Chief complaint: Neuro Symptoms/Deficit Stated complaint: HAND NUMBNESS Time Seen by Provider: 03/19/24 15:49 Source: patient Mode of arrival: walk-in History of Present Illness HPI narrative: The patient is coming to the ER with a progressively getting worse bilateral hand weakness, the patient mentioned that he was evaluated almost at the middle of December during which she was treated with steroids and referred to neurology for something similar. But since then he has been developing more weakness now his right hand also is weak in addition to his bilateral extremity yesterday he noticed that he could not hold his 10 pounds dog weight. The patient denies any fall trauma or any neck pain at the moment He also denies any lower extremity weakness and also denies any other complaint of chest pain abdominal pain The patient mentioned that when he was treated with prednisone he improved tremendously,he also mentioned that he have a history of rheumatoid arthritis Related Data Home Medications ?Medication ?Instructions ?Recorded ?Confirmed amitriptyline 10 mg tablet 10 mg PO DAILY 01/16/24 03/19/24 aspirin 81 mg chewable tablet 1 tab PO DAILY 01/16/24 03/19/24 citalopram 40 mg tablet 40 mg PO DAILY 01/16/24 03/19/24 dapagliflozin propanediol 5 mg 10 mg PO DAILY 01/16/24 03/19/24 tablet (Farxiga) lisinopril 20 1 tab PO .dailly 01/16/24 03/19/24 mg-hydrochlorothiazide 25 mg tablet loratadine 10 mg tablet (Allergy 10 mg PO DAILY 01/16/24 03/19/24 Relief (loratadine)) meloxicam 15 mg tablet 15 mg PO DAILY 01/16/24 03/19/24 metformin 1,000 mg tablet 500 mg PO .with meals 01/16/24 03/19/24 simvastatin 20 mg tablet 20 mg PO DAILY 01/16/24 03/19/24 tizanidine 4 mg tablet 4 mg PO Q12H PRN muscle spasticity 01/16/24 03/19/24 trazodone 100 mg tablet 100 mg PO .qhs PRN insomnia 01/16/24 03/19/24 gabapentin 300 mg capsule 300 mg PO DAILY 03/19/24 03/19/24 Allergies Allergy/AdvReac Type Severity Reaction Status Date / Time adhesive tape Allergy Mild Verified 01/16/24 16:47 almond Allergy Mild Verified 01/16/24 16:47 penicillin G Allergy Mild Verified 01/16/24 16:47 cashews Allergy Mild Uncoded 01/16/24 16:47 Opioid HPI Opioid Management Most Recent Opioid Data: No Data to Display Review of Systems ROS Status of ROS 10 or more systems reviewed and unremark able except as noted in history and below Exam Narrative Exam Narrative: Nurses notes and vital signs reviewed and patient is not hypoxic. General: Well-appearing and in no apparent distress. Skin: Warm, dry, no pallor noted. No rash. Head: Normocephalic, atraumatic. Neck: Supple, non-tender. Eye: Pupils are equal, round and EOMI. No scleral icterus. Ears, Nose, Mouth, and Throat: TM are clear, no nasal mucosal hypertrophy. Oral mucosa is moist, no posterior oropharynx erythema, uvula is mid-line Cardiovascular: Regular Rate and Rhythm without murmur, gallop or rub. Respiratory: No accessory muscle use or respiratory distress. Lungs are clear to auscultation, no wheezing, rales or rhonchi Chest Wall: no tenderness Back: No midline thoracic or lumbar vertebral tenderness. No CVA tenderness Musculoskeletal: normal ROM, no calf or popliteal tenderness, no lower extremity edema/swelling GI: Abdomen is soft, non-distended. Normal bowel sounds. No masses appreciated. No tenderness to palpation. No rebound, guarding, or rigidity noted. Neurological: A&O x4. No cranial nerve dysfunction observed. No truncal ataxia. The patient have significant weakness of both handgrips , he does not have any weakness with elevating both arms and he is able to hold him still , patient have no vascular injury detected in both upper extremities, the patient mentioned that his sensation in the fingertips of both hands numb to sensation , the patient have heaviness in both upper extremity when trying to put his hand above his head Still able to hold his arm extended until the count of 10 with no weakness detected Psychiatric: Cooperative and interactive. Normal mood and affect. Constitutional Vital Signs, click to edit/add: Last Vital Signs Temp 98.6 F 03/19/24 15:44 Pulse 78 03/19/24 18:17 Resp 16 03/19/24 18:17 BP 134/84 03/19/24 18:17 Pulse Ox 97 03/19/24 18:17 O2 Del Method Room Air 03/19/24 15:44 Course Vital Signs Vital signs: Vital Signs Temperature 98.6 F 03/19/24 15:44 Pulse Rate 87 03/19/24 15:44 Respiratory Rate 15 03/19/24 15:44 Blood Pressure 147/91 H 03/19/24 15:44 Pulse Oximetry 96 03/19/24 15:44 Oxygen Delivery Method Room Air 03/19/24 15:44 Temperature 98.6 F 03/19/24 15:44 Pulse Rate 78 03/19/24 18:17 Respiratory Rate 16 03/19/24 18:17 Blood Pressure 134/84 03/19/24 18:17 Pulse Oximetry 97 03/19/24 18:17 Oxygen Delivery Method Room Air 03/19/24 15:44 Medical Decision Making MDM Narrative Medical decision making narrative: CT of the spine showed that the patient have multiple disc disease although ranging between mild and moderate Patient had Methylprednisone ordered IM The patient was evaluated by blood workup for Lyme rule out as well as her blood workup at the middle of January that was negative for any acute pathology. The patient with his symptoms that are concerning had his case discussed with and neurology service and he mentioned that the patient needs an MRI and neurosurgery evaluation MRI of the cervical spine ordered-----pt care will be transferred to Dr Metzger awaiting of MRI cervical Discharge Plan Discharge Patient Disposition: Still a Patient
[2024-03-19 18:17] VITALS: BP 134/84; PULSE 78; O2SAT 97
--- NOTE | 2024-03-19 18:33 | MR_ITS ---
The [address] [address] Patient Name: BHUMIKA BRYANT MRN: [id number] date: 1975 Sex: M Assigned Patient Location: ED.MAIN Current Patient Location: Accession/Order Number: [id number] Exam Date: 03/19/2024 19:50 Report Date: 03/19/2024 22:13 At the request of: KATHARINE CHEN Procedure: MR cervical spine wo con EXAM: MR cervical spine wo con HISTORY: The patient is a 48-year-old male, bilateral arm weakness COMPARISON: CT scan of the cervical spine from 4:44 PM. TECHNIQUE: Sagittal T1, T2, STIR; axial T2, GRE. FINDINGS: The accompanying CT scan of the cervical spine reported thickened calcification of the posterior longitudinal ligament at the C2-C3 and C3-C4 levels. The sagittal images of the current MRI demonstrate no masses or signal abnormalities throughout the cervical spinal cord. There is no cerebellar tonsillar ectopia. The sagittal images demonstrate no fractures or loss of vertebral body height throughout the cervical spine. No bone marrow edema is seen within any of the cervical vertebrae. There is no malalignment. There is moderate disc space narrowing throughout the cervical spine. The axial images demonstrate no paraspinal masses or fluid collections. Segmental analysis: C2-C3: No disc bulges or protrusions. No central canal stenosis. The neural foramen are patent bilaterally. C3-C4: There is a central disc extrusion at this level. This causes moderate central canal stenosis. The neural foramen are patent bilaterally. This is the worst level. C4-C5: There is a central disc protrusion at this level. This does not cause central canal stenosis. The neural foramen are patent bilaterally. C5-C6: There is a central disc protrusion at this level. This does not cause central canal stenosis. There is mild neural foraminal narrowing bilaterally. C6-C7: There is a broad-based central disc protrusion at this level. This does not cause central canal stenosis. The neural foramen are relatively patent bilaterally. C7-T1: No disc bulges or protrusions. No central canal stenosis. The neural foramen are patent bilaterally. MR/MR cervical spine wo con IMPRESSION: Disc herniations throughout the cervical spine, worst at the C3-C4 level where there is moderate central canal stenosis. Electronically authenticated by: MARGARITA JIMÉNEZ Date: 03/19/2024 22:13
--- NOTE | 2024-03-19 20:01 | XR_ITS ---
The [address] [address] Patient Name: BHUMIKA BRYANT MRN: [id number] date: 1975 Sex: M Assigned Patient Location: ER Current Patient Location: ER Accession/Order Number: [id number] Exam Date: 03/19/2024 19:57 Report Date: 03/19/2024 22:04 At the request of: YASSINE HUITRON Procedure: XR foreign body eye DARIN XR foreign body eye DARIN, 03/19/2024 6:57 PM CDT: History: Rule out foreign body, for MRI. . Comparison: None. Technique: 2 views of the orbits Findings/Impression: There is no radiopaque foreign body. There is no acute bony abnormality. Electronically authenticated by: JAKOB SCOTT Date: 03/19/2024 22:04
[2024-03-19 20:52] VITALS: BP 140/83; PULSE 84; O2SAT 98
--- NOTE | 2024-03-19 20:53 | PC.NURSE ---
bilat hand strength weakening and worsening over the last 10 days. pt alert and appropriate, speech is clear and no facial drooping. bilat leg strength strong and equal. no change in neuro status compared to earlier assessment, will continue to monitor
[2024-03-19 22:50] VITALS: BP 141/84; PULSE 91; TEMP 36.6; O2SAT 96
--- NOTE | 2024-03-19 23:17 | ED.GENADUL1 ---
HPI HPI - General Adult General Chief complaint: Neuro Symptoms/Deficit Stated complaint: HAND NUMBNESS Time Seen by Provider: 03/19/24 15:49 Source: patient Mode of arrival: walk-in History of Present Illness HPI narrative: 48-year-old male presented to the emergency department and was initially seen by Dr. Espinoza. Please see her full history and physical exam. The patient was signed out to me after discussing the case with her thoroughly. Related Data Home Medications ?Medication ?Instructions ?Recorded ?Confirmed amitriptyline 10 mg tablet 10 mg PO DAILY 01/16/24 03/19/24 aspirin 81 mg chewable tablet 1 tab PO DAILY 01/16/24 03/19/24 citalopram 40 mg tablet 40 mg PO DAILY 01/16/24 03/19/24 dapagliflozin propanediol 5 mg 10 mg PO DAILY 01/16/24 03/19/24 tablet (Farxiga) lisinopril 20 1 tab PO .dailly 01/16/24 03/19/24 mg-hydrochlorothiazide 25 mg tablet loratadine 10 mg tablet (Allergy 10 mg PO DAILY 01/16/24 03/19/24 Relief (loratadine)) meloxicam 15 mg tablet 15 mg PO DAILY 01/16/24 03/19/24 metformin 1,000 mg tablet 500 mg PO .with meals 01/16/24 03/19/24 simvastatin 20 mg tablet 20 mg PO DAILY 01/16/24 03/19/24 tizanidine 4 mg tablet 4 mg PO Q12H PRN muscle spasticity 01/16/24 03/19/24 trazodone 100 mg tablet 100 mg PO .qhs PRN insomnia 01/16/24 03/19/24 gabapentin 300 mg capsule 300 mg PO DAILY 03/19/24 03/19/24 Previous Rx's ?Medication ?Instructions ?Recorded prednisone 10 mg tablet See Rx Instructions .Route 03/19/24 .COMPLEX #18 tabs Allergies Allergy/AdvReac Type Severity Reaction Status Date / Time adhesive tape Allergy Mild Verified 01/16/24 16:47 almond Allergy Mild Verified 01/16/24 16:47 penicillin G Allergy Mild Verified 01/16/24 16:47 cashews Allergy Mild Uncoded 01/16/24 16:47 Opioid HPI Opioid Management Most Recent Opioid Data: No Data to Display Exam Constitutional Vital Signs, click to edit/add: Last Vital Signs Temp 98 F 03/19/24 22:50 Pulse 91 H 03/19/24 22:50 Resp 14 03/19/24 22:50 BP 141/84 03/19/24 22:50 Pulse Ox 96 03/19/24 22:50 O2 Del Method Room Air 03/19/24 22:50 Course Vital Signs Vital signs: Vital Signs Temperature 98.6 F 03/19/24 15:44 Pulse Rate 87 03/19/24 15:44 Respiratory Rate 15 03/19/24 15:44 Blood Pressure 147/91 H 03/19/24 15:44 Pulse Oximetry 96 03/19/24 15:44 Oxygen Delivery Method Room Air 03/19/24 15:44 Temperature 98 F 03/19/24 22:50 Pulse Rate 91 H 03/19/24 22:50 Respiratory Rate 14 03/19/24 22:50 Blood Pressure 141/84 03/19/24 22:50 Pulse Oximetry 96 03/19/24 22:50 Oxygen Delivery Method Room Air 03/19/24 22:50 Medical Decision Making MDM Narrative Medical decision making narrative: MRI results were reviewed with Dr. Rivers and the patient is able to be discharged home. The patient states that he is feeling better and he can move his hands better. He will be placed on a short course of prednisone and has an appointment with his local neurologist on April 03 that he will keep. Treatment diagnosis and follow-up were discussed with the patient. Differential Diagnosis Differential Diagnosis: Cervical spinal stenosis, spinal cord injury, cervical radiculopathy Imaging Data MRI C-spine: Radiologist's impression: ITS Impressions Cervical Spine CT 03/19/24 16:19 IMPRESSION: Posterior discovertebral complexes and thickened calcified posterior longitudinal ligament at C2-C3 and C3-C4 result in mild central spinal stenosis at C2-C3 and moderate central spinal stenosis at C3-C4. No neural foramina stenosis. Electronically authenticated by: DARYA ALVARADO Date: 03/19/2024 18:02 Cervical Spine MRI 03/19/24 18:33 IMPRESSION: Disc herniations throughout the cervical spine, worst at the C3-C4 level where there is moderate central canal stenosis. Electronically authenticated by: MARGARITA JIMÉNEZ Date: 03/19/2024 22:13 Discharge Plan Discharge Stand Alone Forms: Portal Instructions Chief Complaint: Neuro Symptoms/Deficit Clinical Impression: Cervical spinal stenosis Patient Disposition: Home, Self-Care Time of Disposition Decision: 23:12 Condition: Good Mode of Transportation: Private Vehicle Prescriptions / Home Meds: New prednisone 10 mg tablet See Rx Instructions .ROUTE .COMPLEX Qty: 18 0RF Rx Instructions: 3 by mouth daily for three days then 2 by mouth daily for three days then 1 by mouth daily for three days No Action amitriptyline 10 mg tablet 10 mg PO DAILY aspirin 81 mg tablet,chewable 1 tab PO DAILY citalopram 40 mg tablet 40 mg PO DAILY dapagliflozin propanediol [Farxiga] 5 mg tablet 10 mg PO DAILY lisinopril-hydrochlorothiazide 20-25 mg tablet 1 tab PO .dailly loratadine [Allergy Relief (loratadine)] 10 mg tablet 10 mg PO DAILY meloxicam 15 mg tablet 15 mg PO DAILY metformin 1,000 mg tablet 500 mg PO .with meals simvastatin 20 mg tablet 20 mg PO DAILY tizanidine 4 mg tablet 4 mg PO Q12H PRN (Reason: muscle spasticity) trazodone 100 mg tablet 100 mg PO .qhs PRN (Reason: insomnia) gabapentin 300 mg capsule 300 mg PO DAILY Print Language: Lebanese Instructions: Cervical Spinal Stenosis (ED) Additional Instructions: See your neurologist at your scheduled appointment Referrals: Cecy Hernandez NP [Primary Care Provider] - 1 week
== END 2024-03-19 23:25 | disposition home or self-care (01) ==
PROVIDERS: Emergency Provider Emergency Medicine; PCP Nurse Practitioner
DX: M48.02 Spinal stenosis, cervical region (principal)
CPT/HCPCS: 70030; 72125; 72141; 96372; 99285; J2919

== ENCOUNTER 2024-03-22 20:24 | Emergency (ER) | payer MEDICAID, SELFPAY ==
[2024-03-22 20:27] VITALS: BP 157/98; PULSE 80; TEMP 36.4; O2SAT 95; BMI 42.5
--- OUTSIDE RECORDS SUMMARY | 2024-03-22 20:37 | XMS_ITS | CCD ---
Author Organization [facility] Care Team Providers Care Clinical Investigator Name Role Phone PHYSICIAN, DEFAULT Admitting Unavailable PHYSICIAN, DEFAULT Attending Unavailable PEGGY GAYTAN Primary Care Unavailable Primo Downing Primary Care Provider [phone] Yue Pedroza Unavailable AICHHOLZ, HOSPITAL UNIT CLERK CECY Primary Care Unavailable AICHHOLZ, HOSPITAL UNIT CLERK CECY Admitting Unavailable AICHHOLZ, HOSPITAL UNIT CLERK CECY Attending Unavailable AICHHOLZ, HOSPITAL UNIT CLERK CECY Consulting Unavailable AICHHOLZ, HOSPITAL UNIT CLERK CECY Primary Care Unavailable AICHHOLZ, HOSPITAL UNIT CLERK CECY Admitting Unavailable AICHHOLZ, HOSPITAL UNIT CLERK CECY Attending Unavailable AICHHOLZ, HOSPITAL UNIT CLERK CECY Consulting Unavailable AICHHOLZ, HOSPITAL UNIT CLERK CECY Admitting Unavailable AICHHOLZ, HOSPITAL UNIT CLERK CECY Attending Unavailable AICHHOLZ, HOSPITAL UNIT CLERK CECY Consulting Unavailable AICHHOLZ, HOSPITAL UNIT CLERK CECY Primary Care Unavailable AICHHOLZ, HOSPITAL UNIT CLERK CECY Primary Care Unavailable VISHAL, DR THANG Nichols Attending Unavailmilvia RODGERS, DR THANG Nichols Consulting Unavailmilvia RODGERS, DR THANG Nichols Admitting UnavailJAKOB Solano Consulting Unavailable Lexa Hickman MD Primary Care Provider [phone] Aichholz CAT TENDER, Cecy Unavailable Unavailable Primary Care Provider Unavailabl e AICHHOLZ, CECY Attending Unavailable VICKY SCRUGGS Attending Unavailable TANA CARDENAS Attending Unavailable AICHHOLZ, CECY Attending Unavailable JULIET HWANG Attending Unavailable AICHHOLZ, CECY Attending Unavailable Allergies Allergy Classification Reported Allergen(s) Allergy Type Date of Onset Reaction(s) Facility (1 source) Adhesive Tape Allergy to substance 02-20-20 Rash [facility] (4 sources) Penicillins; Translations: [Penicillins] Drug Allergy 01-03-20 13 Unknown [facility] (1 source) Penicillins (Antibiotic) Drug allergy rash. when he was kid [employer] Other (1 source) Desonide Drug Allergy 11-03-19 17 The [facility] (1 source) Oxytetracycline Drug Allergy 01-03-20 13 The [facility] (1 source) Cashew nut Allergy to substance 08-16-20 Dermatitis [facility] (1 source) Oxytetracycline Drug Allergy 08-16-20 23 Unknown [facility] (1 source) Penicillin G Drug Allergy 08-16-20 Unknown [facility] (1 source) Other Allergy to substance 08-16-20 Unknown [facility] (1 source) Wound Dressing Adhesive Propensity to adverse reactions to drug 08-16-20 Rash [facility] (1 source) Adhesive agent Propensity to adverse reactions to drug 02-20-20 13 Rash [facility] Medications Current Medications Medication Drug [...] mg tablet Actos Active polyethylene glycol 3350 59727 mg powder for oral solution (1 source) [...] 08-16-2023 08-16-2023 Chronic Other aftercare (1 source) 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 hypoglycemic drugs; Translations: [IGNITION EXPERT USE ORAL HYPOGLYCEMIC DX] Onset: 04-25-2022 Episodic Other aftercare (1 source) exterminator helper (current) use of aspirin; Translations: [RETIREMENT CURRENT USE OF ASPIRIN] Onset: 04-25-2022 Episodic Other aftercare (1 source) Other roasterman (current) drug therapy; Translations: [OTH IGNITION EXPERT CURRENT DRUG THERAPY] Onset: 04-25-2022 Episodic Other [...] JAKOB MCGHEE Date: 2022-04-23 12:40 Normal [facility] CBC AUTO DIFFon 01-11-2022 BASO # 0.0 103/ul Normal 0.0-0.1 [facility] Comment on above: Performed By: #### C BC #### [facility] [address] [address] [address] Sera Quach Basophils/100 WBC (Bld) 0.4 % Normal 0.2-2.0 [facility] Comment on above: Performed By: #### C BC #### [facility] [address] [address] [address] Sera Quach EO # 0.3 103/ul Normal 0.0-0.7 [facility] Comment on above: Performed By: #### C BC #### [facility] [address] [address] [address] Sera Quach Eosinophils/100 WBC (Bld) 2.8 % Normal 0.9-7.0 [facility] Comment on above: Performed By: #### C BC #### [facility] [address] [address] [address] Sera Quach Erythrocyte distribution width (RBC) [Ratio] 13.1 % Normal 11.0-15.0 [facility] Comment on above: Performed By: #### C BC #### [facility] [address] [place] [address] Dr. Sera Quach Hematocrit (Bld) [Volume fraction] 47.3 % Normal 42.0-54.0 [facility] Comment on above: Performed By: #### C BC #### [facility] [address] [place] [address] Dr. Sera Quach Hemoglobin (Bld) [Mass/Vol] 15.2 g/dL Normal 14.0-18.0 [facility] Comment on above: Performed By: #### C BC #### [facility] [address] [place] [address] Dr. Sera Quach IG # 0.03 10e3/ul Normal 0.00-0.03 [facility] Comment on above: Performed By: #### C BC #### [facility] [address] [place] [address] Dr. Sera Quach IG % 0.3 % Normal 0.0-0.5 [facility] Comment on above: Performed By: #### C BC #### [facility] [address] [place] [address] Dr. Sera Quach LYMPH # 2.3 103/ul Normal 1.2-3.8 [facility] Comment on above: Performed By: #### C BC #### [facility] [address] [place] [address] Dr. Sera Quach Lymphocytes/100 WBC (Bld) 25.5 % Normal 20.5-60.0 [facility] Comment on above: Performed By: #### C BC #### [facility] [address] [place] [address] Dr. Sera Quach MANUAL DIFF REQ NO Normal [facility] Comment on above: Performed By: #### C BC #### [facility] [address] [place] [address] Dr. Sera Quach MCH (RBC) [Entitic mass] 29.2 pg Normal 25.9-34.0 [facility] Comment on above: Performed By: #### C BC #### [facility] [address] [address] [address] Sera Quach MCHC (RBC) [Mass/Vol] 32.1 g/dL Normal 29.9-35.2 [facility] Comment on above: Performed By: #### C BC #### [facility] [address] [address] [address] Sera Quach MCV (RBC) [Entitic vol] 91.0 fL Normal 80.0-94.0 [facility] Comment on above: Performed By: #### C BC #### [facility] [address] [place] [address] Dr. Sera Quach MONO # 0.7 103/ul Normal 0.3-0.8 [facility] Comment on above: Performed By: #### C BC #### [facility] [address] [place] [address] Dr. Sera Quach Monocytes/100 WBC (Bld) 7.1 % Normal 1.7-12.0 [facility] Comment on above: Performed By: #### C BC #### [facility] [address] [place] [address] Dr. Sera Quach NEUT # 5.9 103/ul Normal 1.4-6.5 [facility] Comment on above: Performed By: #### C BC #### [facility] [address] [place] [address] Dr. Sera Quach Neutrophils/100 WBC (Bld) 63.9 % Normal 43.0-75.0 [facility] Comment on above: Performed By: #### C BC #### [facility] [address] [place] [address] Dr. Sera Quach Platelet mean volume (Bld) [Entitic vol] 9.3 fL Critically low 9.5-13.5 [facility] Comment on above: Performed By: #### C BC #### [facility] [address] [place] [address] Dr. Sera Quach PLT 316 103/ul Normal 150-450 [facility] Comment on above: Performed By: #### C BC #### [facility] [address] [address] [address] Sera Quach RBC 5.20 106/ul Normal 4.70-6.10 [facility] Comment on above: Performed By: #### C BC #### [facility] [address] [place] [address] Dr. Sera Quach WBC 9.2 103/ul Normal 4.0-11.0 [facility] Comment on above: Performed By: #### C BC #### [facility] [address] [place] [address] Dr. Sera Quach GLYCOHEMOGLOBIN A1Con 2021 ADA RECOMMENDATION SEE BELOW Normal [facility] Comment on above: Result Comment: ADA RECOMMENDED LIMIT 4.0 - 6.0 ADA THERAPEUTIC TARGET < 7.0 ACTION SUGGESTED > 7.0 Performed By: #### A 1C #### [facility] [address] [place] [address] Dr. Sera Quach Glucose [Mass/Vol] 209 mg/dL Normal [facility] Comment on above: Performed By: #### A 1C #### [facility] [address] [place] [address] Dr. Sera Quach HbA1c (Bld) [Mass fraction] 8.9 % Critically high 4.5-6.2 [facility] Comment on above: Performed By: #### A 1C #### [facility] [address] [place] [address] Dr. Sera Quach LIPID PROFILEon 01-11-2022 CHOL-HDL RATIO NORM SEE BELOW Normal [facility] Comment on above: Result Comment: 3.3 - 4.4 LOW RISK 4.4 - 7.1 AVERAGE RISK 7.1 - 11.0 MODERATE RISK >11.0 HIGH RISK Performed By: #### C MP, LIPID #### [facility] [address] [place] [address] Dr. Sera Quach Cholesterol [Mass/Vol] 154 mg/dL Normal <=200 [facility] Comment on above: Performed By: #### C MP, LIPID #### [facility] [address] [place] [address] Dr. Sera Quach Cholesterol in HDL [Mass/Vol] 39 mg/dL Critically low 40-60 [facility] Comment on above: Performed By: #### C MP, LIPID #### [facility] [address] [address] [address] Sera Quach Cholesterol in LDL [Mass/Vol] 98.0 mg/dL Normal [facility] Comment on above: Performed By: #### C MP, LIPID #### [facility] [address] [address] [address] Sera Quach Cholesterol.total/Cho lesterol in HDL [Mass ratio] 3.9 {ratio} Normal [facility] Comment on above: Performed By: #### C MP, LIPID #### [facility] [address] [address] [address] Sera Quach HDL NORMAL > or = 60 mg/dl - LOW CARDIOVASCULAR RISK <40 mg/dl - HIGH CARDIOVASCULAR RISK Normal [facility] Comment on above: Performed By: #### C MP, LIPID #### [facility] [address] [place] [address] Dr. Sera Quach LDL CALC NORMAL SEE BELOW Normal [facility] Comment on above: Result Comment: <100 mg/dl OPTIMAL 100 - 129 mg/dl NEAR OR ABOVE OPTIMAL 130 - 159 mg/dl BORDERLINE HIGH 160 - 189 mg/dl HIGH >190 mg/dl VERY HIGH Performed By: #### C MP, LIPID #### [facility] [address] [address] [address] Sera Quach Triglyceride [Mass/Vol] 85 mg/dL Normal <=150 [facility] Comment on above: Performed By: #### C MP, LIPID #### [facility] [address] [address] [address] Sera Quach VLDL CALC 17.0 mg/dL Normal [facility] Comment on above: Performed By: #### C MP, LIPID #### [facility] [address] [address] [address] Sera Quach MICROALBUMIN, RAND URon 05-1 mALB 1.3 mg/L Normal <=30.0 [facility] Comment on above: Performed By: #### M ALBR #### [facility] [address] [address] [address] Sera Quach PROF 14(COMP METB)on 022 Albumin [Mass/Vol] 3.9 g/dL Normal 3.4-5.0 [facility] Comment on above: Performed By: #### C MP, LIPID #### [facility] [address] [place] [address] Dr. Sera Quach Albumin/Globulin [Mass ratio] 1.1 {ratio} Normal [facility] Comment on above: Performed By: #### C MP, LIPID #### [facility] [address] [place] [address] Dr. Sera Quach ALP [Catalytic activity/Vol] 76 U/L Normal 46-116 [facility] Comment on above: Performed By: #### C MP, LIPID #### [facility] [address] [place] [address] Dr. Sera Quach ALT [Catalytic activity/Vol] 64 U/L Critically high 16-63 [facility] Comment on above: Performed By: #### C MP, LIPID #### [facility] [address] [place] [address] Dr. Sera Quach Anion gap [Moles/Vol] 12.7 mmol/L Normal [facility] Comment on above: Performed By: #### C MP, LIPID #### [facility] [address] [place] [address] Dr. Sera Quach AST [Catalytic activity/Vol] 37 U/L Normal 15-37 [facility] Comment on above: Performed By: #### C MP, LIPID #### [facility] [address] [place] [address] Dr. Sera Quach Bilirubin [Mass/Vol] 0.6 mg/dL Normal 0.2-1.0 [facility] Comment on above: Performed By: #### C MP, LIPID #### [facility] [address] [place] [address] Dr. Sera Quach Calcium [Mass/Vol] 9.0 mg/dL Normal 8.5-10.1 [facility] Comment on above: Performed By: #### C MP, LIPID #### [facility] [address] [address] [address] Sera Quach Chloride [Moles/Vol] 101 mmol/L Normal 98-107 [facility] Comment on above: Performed By: #### C MP, LIPID #### [facility] [address] [address] [address] Sera Quach CO2 [Moles/Vol] 27.6 mmol/L Normal 21.0-32.0 [facility] Comment on above: Performed By: #### C MP, LIPID #### [facility] [address] [place] [address] Dr. Sera Quach Creatinine [Mass/Vol] 0.75 mg/dL Normal 0.70-1.30 [facility] Comment on above: Performed By: #### C MP, LIPID #### [facility] [address] [place] [address] Dr. Sera Quach EGFR-AF NAMIBIAN >60 Normal >=60 [facility] Comment on above: Performed By: #### C MP, LIPID #### [facility] [address] [place] [address] Dr. Sera Quach EGFR-NON AF NAMIBIAN >60 Normal >=60 [facility] Comment on above: Performed By: #### C MP, LIPID #### [facility] [address] [place] [address] Dr. Sera Quach Globulin (S) [Mass/Vol] 3.6 g/dL Normal [facility] Comment on above: Performed By: #### C MP, LIPID #### [facility] [address] [place] [address] Dr. Sera Quach Glucose [Mass/Vol] 184 mg/dL Critically high 74-106 [facility] Comment on above: Performed By: #### C MP, LIPID #### [facility] [address] [place] [address] Dr. Sera Quach Potassium [Moles/Vol] 4.3 mmol/L Normal 3.5-5.1 [facility] Comment on above: Performed By: #### C MP, LIPID #### [facility] [address] [address] [address] Sera Quach Protein [Mass/Vol] 7.5 g/dL Normal 6.4-8.2 [facility] Comment on above: Performed By: #### C MP, LIPID #### [facility] [address] [address] [address] Sera Quach Sodium [Moles/Vol] 137 mmol/L Normal 136-145 [facility] Comment on above: Performed By: #### C MP, LIPID #### [facility] [address] [address] [address] Sera Quach Urea nitrogen [Mass/Vol] 12.0 mg/dL Normal 7.0-18.0 [facility] Comment on above: Performed By: #### C MP, LIPID #### [facility] [address] [address] [address] Sera Quach Urea nitrogen/Creatinine [Mass ratio] 16.0 mg/mg Normal [facility] Comment on above: Performed By: #### C MP, LIPID #### [facility] [address] [place] [address] Dr. Sera Quach UA RANDOM W/MICROSCOPICon BACTERIA NONE SEEN Normal NONE SEEN [facility] Comment on above: Performed By: #### U AMIC #### [facility] [address] [place] [address] Dr. Sera Quach Bilirubin Ql (U) Negative Normal NEGATIVE [facility] Comment on above: Performed By: #### U AMIC #### [facility] [address] [place] [address] Dr. Sera Quach CAST NONE SEEN Normal NONE SEEN [facility] Comment on above: Performed By: #### U AMIC #### [facility] [address] [place] [address] Dr. Sera Quach Clarity (U) CLOUDY Abnormal CLEAR [facility] Comment on above: Performed By: #### U AMIC #### [facility] [address] [place] [address] Dr. Sera Quach Color (U) YELLOW Normal YELLOW [facility] Comment on above: Performed By: #### U AMIC #### [facility] [address] [address] [address] Sera Quach Crystals LM Nom (Urine sed) SEEN Abnormal NONE SEEN [facility] Comment on above: Performed By: #### U AMIC #### [facility] [address] [address] [address] Sera Quach Epithelial cells LM Ql (Urine sed) RARE Normal NONE SEEN /RARE [facility] Comment on above: Performed By: #### U AMIC #### [facility] [address] [address] [address] Sera Quach Glucose Ql (U) Negative Normal NEGATIVE [facility] Comment on above: Performed By: #### U AMIC #### [facility] [address] [place] [address] Dr. Sera Quach Hemoglobin Ql (U) Negative Normal NEGATIVE [facility] Comment on above: Performed By: #### U AMIC #### [facility] [address] [address] [address] Sera Quach Ketones Ql (U) Negative Normal NEGATIVE [facility] Comment on above: Performed By: #### U AMIC #### [facility] [address] [address] [address] Sera Quach LEUKOCYTES Negative Normal NEGATIVE The [facility] Comment on above: Performed By: #### U AMIC #### [facility] [address] [address] [address] Sera Quach MUCOUS NONE SEEN Normal NONE SEEN The [facility] Comment on above: Performed By: #### U AMIC #### [facility] [address] [address] [address] Sera Quach Nitrite Ql (U) Negative Normal NEGATIVE [facility] Comment on above: Performed By: #### U AMIC #### [facility] [address] [address] [address] Sera Quach pH (U) 5.5 [pH] Normal 5-9 [facility] Comment on above: Performed By: #### U AMIC #### [facility] [address] [address] [address] Sera Quach RBC NONE SEEN Abnormal 0-2 [facility] Comment on above: Performed By: #### U AMIC #### [facility] [address] [address] [address] Sera Quach SPEC GRAVITY 1.025 Normal 1.005-<=1.025 [facility] Comment on above: Performed By: #### U AMIC #### [facility] [address] [address] [address] Sera Quach UA PROTEIN Negative Normal NEGATIVE/ TRACE [facility] Comment on above: Performed By: #### U AMIC #### [facility] [address] [address] [address] Sera Quach Urobilinogen Qn (U) 1.0 {Jessika'U}/dL Normal 0.2 - 1. 0 [facility] Comment on above: Performed By: #### U AMIC #### [facility] [address] [address] [address] Sera Quach WBC 0-2 Abnormal NONE SEEN The [facility] Comment on above: Performed By: #### U AMIC #### [facility] [address] [address] [address] Sera Quach GLYCOHEMOGLOBIN A1Con 2020 ADA RECOMMENDATION ADA THERAPEUTIC TARGET 6.0 - 7.0 ACTION SUGGESTED > 7.0 Normal [facility] Comment on above: Performed By: #### A 1C #### [facility] [address] [address] Dania Ev Glucose [Mass/Vol] 174 mg/dL Normal [facility] Comment on above: Performed By: #### A 1C #### [facility] [address] [address] Dania Ev HbA1c (Bld) [Mass fraction] 7.7 % Critically high <=6.0 [facility] Comment on above: Performed By: #### A 1C #### [facility] [address] [id number] Dania Ev PROF CHEM 8 (BAS METB)on Anion gap [Moles/Vol] 9.0 mmol/L Normal [facility] Comment on above: Performed By: #### B MP #### [facility] [address] [id number] Dnaia Ev Calcium [Mass/Vol] 8.8 mg/dL Normal 8.4-10.2 [facility] Comment on above: Performed By: #### B MP #### [facility] [address] [place] [address] Dania Ev Chloride [Moles/Vol] 102 mmol/L Normal 98-107 [facility] Comment on above: Performed By: #### B MP #### [facility] [address] [place] [address] Dania Ev CO2 [Moles/Vol] 29.1 mmol/L Normal 22.0-30.0 [facility] Comment on above: Performed By: #### B MP #### [facility] [address] [place], [place] [id number] Dania Ev Creatinine [Mass/Vol] 0.73 mg/dL Normal 0.66-1.25 [facility] Comment on above: Performed By: #### B MP #### [facility] [address] [place], [place] [id number] Dania Ev EGFR-AF NAMIBIAN >60 Normal >=60 [facility] Comment on above: Performed By: #### B MP #### [facility] [address] [place], [place] [id number] Dania Ev EGFR-NON AF NAMIBIAN >60 Normal >=60 [facility] Comment on above: Performed By: #### B MP #### [facility] [address] [place], [place] [id number] Dania Ev Glucose [Mass/Vol] 141 mg/dL Critically high 74-106 [facility] Comment on above: Performed By: #### B MP #### [facility] [address] [place], [place] [id number] Dania Ev Potassium [Moles/Vol] 4.1 mmol/L Normal 3.4-5.0 [facility] [facility] Comment on above: Performed By: #### B MP #### [facility] [address], [place] [address] Dania Carreno Sodium [Moles/Vol] 136 mmol/L Critically low 137-145 Th [facility] Comment on above: Performed By: #### B MP #### [facility] [address], [place] [address] Dania Ev Urea nitrogen [Mass/Vol] 9.0 mg/dL Normal 9.0-20.0 [facility] Comment on above: Performed By: #### B MP #### [facility] [address], [place] [address] Dania Ev Urea nitrogen/Creatinine [Mass ratio] 12.3 mg/mg Normal [facility] Comment on above: Performed By: #### B MP #### [facility] [address], [place] [address] Dania Carreno Vital Signs Date Time Vital Sign Value Performing Clinician Facility 10-08-2021 13:30-0500 Body height 190.5 cm Yue Richmond Other [facility] Other 10-08-2021 13:30-0500 Body mass index (BMI) [Ratio] 45.12 kg/m2 Yue Kasia Other [facility] Other 10-08-2021 13:30-0500 Body temperature 96.6 [degF] Yue Kasia Other [facility] Other 10-08-2021 13:30-0500 Body weight 163.75 kg Yue Kasia Other [facility] Other 10-08-2021 13:30-0500 SaO2% (BldA) [Mass fraction] 98 % Yue Kasia Other [facility] Other Encounters Encounter Date Encounter Type Care [...] [facility]icians Rheumatology Start: 10-11-2023 Refill Cecy Aichholz CAT TENDER Work Phone: [facility] Comment on above: Type 2 diabetes genet itus without complication, without long- term current use of insulin (CMS/[facility]) (Primary Dx); Type 2 diabetes mellitus without complications (CMS/[facility]) Start: 08-16-2023 End: 08-16-2023 ambulatory CECY AICHHOLZ Not Available Start: 04-23-2022 End: 04-23-2022 ambulatory HOSPITAL UNIT CLERK CECY AICHHOLZ Facility:[facility] Start: 01-11-2022 End: 01-12-2022 ambulatory HOSPITAL UNIT CLERK CECY AICHHOLZ Facility:[facility] Start: 10-08-2021 End: 10-08-2021 ambulatory Yue Pedroza Other [employer] Other Start: 10-08-2021 Office outpatient vi sit 15 minutes Yue Pedroza [facility] Start: 06-07-2021 End: 06-07-2021 ambulatory HOSPITAL UNIT CLERK CECY AICHHOLZ Facility:[facility] Start: 05-05-2021 End: 05-06-2021 ambulatory HOSPITAL UNIT CLERK CECY AICHHOLZ Facility:[facility] Start: 06-08-2018 End: 06-09-2018 Patient encounter procedure DEFAULT PHYSICIAN Facility:[facility] Start: 11-07-2013 End: 11-07-2013 Telephone encounter Haylee Garcia Work Phone: Rheumatology Comment on above: Appointment Cancelle d Plan of Treatment Date Care Activity Detail Author Start: 01-14-2024 Urine screening for protein Diabetes: Urine Protein Screening [facility] Start: 01-03-2024 End: 01-03-2024 Patient encounter procedure 01/03/2024 3:00 PM EDT Office Visit [facility] [address] [address] Jone Cota MD [address] [address] [facility] Start: 12-27-2023 Screening for malignant neoplasm of colon [facility] Start: 11-16-2023 End: 11-16-2023 Patient encounter procedure 11/16/2023 1:20 PM EDT Office Visit [facility] [address] [place] [address] Cecy Hernandez, DARIO [address] [place] [address] [facility] Start: 11-03-2023 Hemoglobin A1c measurement Diabetes: Hemoglobin A1C [facility] Start: 04-28-2023 Influenza vaccination Influenza Vaccine [facility] Start: 04-28-2020 Influenza vaccination INFLUENZA (#1) [facility] Start: 2012 LIPID SCREEN LIPID SCREEN [facility] Start: 1996 DTaP,Tdap and Td Vaccines (1 - Tdap) DTaP,Tdap and Td Vaccines (1 - Tdap) [facility] [place] Start: 1996 Urine microalbumin profile DTAP,TDAP,TD (1 - Tdap) [facility] Start: 1995 Adult BMI Screening Adult BMI Screening [facility] Start: 1995 Diabetic foot examination Diabetic Foot Exam [facility] [place] Start: 1995 HIV SCREENING HIV SCREENING [facility] Start: 1989 Depression Screening Depression Screening [facility] Start: 1989 Tobacco Screening Tobacco Screening [facility] Start: 1987 Glaucoma screening Diabetes: Retinopathy Screening [facility] Start: 1977 Glaucoma screening Diabetic Ophthalmology Exam [facility] [place] Start: 1977 Screening for malignant neoplasm of colon [facility] Start: 1977 Urine screening for protein Urine Microalbumin [facility] [place] Immunizations Immunization Date Immunization Notes Care Provider Fa cility 06-06-2023 influenza virus vaccine, unspecified formulation Cecy Hernandez CAT TENDER Work Phone: [facility] 04-04-2014 tetanus toxoid, reduced diphtheria toxoid, and acellular pertussis vaccine, adsorbed Yue Kasia Other [employer] Other 06-12-2013 influenza virus vaccine, unspecified formulation Haylee Garcia [facility] Payers Date Payer Category Payer Medicaid [id number] 2022 Medicaid [id number] 2013 Medicaid [employer] [employer] [place] [employer] [id number] 2013-Present Medicaid [id number] 2013 Self-pay SELF PAY HSP/MED ICAL SELF PAY [id number] 2013-2015 SELF PAY Indemnity [id number] 1977 Unknown [id number] 1977 Unknown [id number] 1977 Unknown [id number] 1977 Unknown [id number] 1977 Unknown [id number] 1977 Unknown [id number] [id number] 1977 Unknown [id number] 1977 Unknown [id number] [id number] 1977 Unknown [id number] [id number] 1977 Unknown [id number] [id number] 1977 Unknown [id number] 1959 Unknown [id number] 1959 Unknown [id number] Unknown Social History Date Type Detail Facility Start: 05-20-2013 End: 08-16-2023 Tobacco smoking status MAIS Former smoker [facility] Start: 05-20-2013 Alcohol intake Not Asked [facility] Start: 1975 Sex Assigned At Not on file [facility] Start: 02-06-2019 End: 08-16-2023 Sex Assigned At [facility] Other History of tobacco use Current smoker [facility] History of tobacco use Cigarette Smoker [facility] Start: 08-16-2023 Alcohol intake Ex-drinker (finding) [facility] Start: 02-06-2019 End: 08-16-2023 History of Social function [facility] Start: 08-16-2023 Tobacco Comment Last smoked: 5-10 ye ars [facility] Start: 08-16-2023 Alcohol Comment caffeine 1-2 c ups per day [facility] Tobacco smoking status [facility] Tobacco smoking consumption unknown [facility] [place] [facility]care Unknown [facility] Medical Equipment Procedure Code Equipment Code Equipment Origin al Text Equipment Identifier Dates 1 each by Other route Daily as needed [id number] Start: 10-13-2022 1 each by Other route if needed [id number] Start: 10-13-2022 Evaluation note 10-08-2021 Note Date [...] Patient care instructions given in writting by [facility] At Home document. [employer] Other Evaluation note Note Date & Type [...] adenoidectomy 1988 Hospitalization History tonsillitis childhoo d [employer] Other Instructions Note Date & Type Note [...] and content) DATE CREATED AUTHOR 11/14/2018 [facility] DATE CREATED AUTHOR AUTHOR'S ORGANIZ ATION 04/25/2022 [facility] DATE CREATED AUTHOR AUTHOR'S ORGANIZ ATION 03/11/2024 [facility] EPIC Source Comments (unrecognize d section and content) In the event this informatio n is protected by the Federal Confidentiality of Alcohol and Drug Abuse Patient Records regulations: The Federal rules restrict any use of the information to criminally investigate or prosecute any alcohol or drug abuse patient.[facility] Reason for Visit (unrecogniz ed section and [...] Care Teams (unrecognized sec tion and content) Clinical Investigator Relationship Specialty Start Date End Date Lexa Hickman MD PCP - General Family Medicine 03/15/23 Cecy Hernandez NP [address] [place] [address] Referring Physician Nurse Practitioner 03/15/23 FOR RECORDS [...] BE BASED ON THE PRIMARY CLINICAL RECORDS. [facility]. provides no warranty or guarantee of the accuracy or completeness of information in this document.
--- NOTE | 2024-03-22 20:43 | ED_ITS ---
HPI - Neuro Symptoms/Deficit General Chief Complaint: Neuro Symptoms/Deficit Stated Complaint: Extremity Pain Time Seen by Provider: 03/22/24 20:27 Source: patient Mode of arrival: walk-in Limitations: no limitations History of Present Illness HPI Narrative: patient with known Cervical spine disc disease. Presents complaining of numbness and weakness of his hands. seen here a couple of days ago and prescribed pre dnisone. Feels his neck pain is better but is not helping his hands. also feels his legs are weak but able to walk and maintain his balance. states when first seen in December he had tingling of his finger tips. States his hands are now numb and weak. States he was seen by Neurology January and had an EMG and does not know the results. States the hands are weaker. Describes using both hands to try and open a door handle. Difficulty getting dressed because he is not able to pull his pants up. He put his arms insides his pants and raised them that way. Afraid he can't wipe himself. Related Data Home Medications ?Medication ?Instructions ?Recorded ?Confirmed amitriptyline 10 mg tablet 10 mg PO DAILY 01/16/24 03/19/24 aspirin 81 mg chewable tablet 1 tab PO DAILY 01/16/24 03/19/24 citalopram 40 mg tablet 40 mg PO DAILY 01/16/24 03/19/24 dapagliflozin propanediol 5 mg 10 mg PO DAILY 01/16/24 03/19/24 tablet (Farxiga) lisinopril 20 1 tab PO .dailly 01/16/24 03/19/24 mg-hydrochlorothiazide 25 mg tablet loratadine 10 mg tablet (Allergy 10 mg PO DAILY 01/16/24 03/19/24 Relief (loratadine)) meloxicam 15 mg tablet 15 mg PO DAILY 01/16/24 03/19/24 metformin 1,000 mg tablet 500 mg PO .with meals 01/16/24 03/19/24 simvastatin 20 mg tablet 20 mg PO DAILY 01/16/24 03/19/24 tizanidine 4 mg tablet 4 mg PO Q12H PRN muscle spasticity 01/16/24 03/19/24 trazodone 100 mg tablet 100 mg PO .qhs PRN insomnia 01/16/24 03/19/24 gabapentin 300 mg capsule 300 mg PO DAILY 03/19/24 03/19/24 Previous Rx's ?Medication ?Instructions ?Recorded prednisone 10 mg tablet See Rx Instructions .Route 03/19/24 .COMPLEX #18 tabs Allergies Allergy/AdvReac Type Severity Reaction Status Date / Time adhesive tape Allergy Mild Rash Verified 03/22/24 20:35 almond Allergy Mild Rash Verified 03/22/24 20:35 penicillin G Allergy Mild Vomiting Verified 03/22/24 20:35 cashews Allergy Mild Rash Uncoded 03/22/24 20:35 Review of Systems ROS Status of ROS 10 or more systems reviewed and unremark able except as noted in history and below Exam Constitutional Vital Signs, click to edit/add: Last Vital Signs Temp 97.6 F 03/22/24 20:27 Pulse 66 03/22/24 22:21 Resp 16 03/22/24 22:21 BP 157/98 H 03/22/24 20:27 Pulse Ox 97 03/22/24 22:21 O2 Del Method Room Air 03/22/24 20:27 Common normals: no apparent distress, average body habitus, oriented x3, no limitations, healthy appearing, alert and well nourished [facility] Common normals: normocephalic and head/scalp atraumatic Eye Common normals: EOMs intact bilaterally and conjunctivae normal Respiratory Common normals: normal respiratory effort, no retractions, no use of accessory muscles and clear to auscultation bilaterally Cardio Common normals: regular rate, regular rhythm, S1 normal heart sound and S2 normal heart sound GI Common normals: Normal to inspection, nondistended, normoactive bowel sounds present, soft to palpation and non-tender Extremity Common normals: normal to inspection and full ROM Neuro Common normals: oriented x3, CN's II-XII intact bilaterally and moves all extremities Other: hand grasp 3/5 and symmetric Psych Appearance: grossly normal Course Vital Signs Vital signs: Vital Signs Temperature 97.6 F 03/22/24 20:27 Pulse Rate 80 03/22/24 20:27 Respiratory Rate 20 03/22/24 20:27 Blood Pressure 157/98 H 03/22/24 20:27 Pulse Oximetry 95 03/22/24 20:27 Oxygen Delivery Method Room Air 03/22/24 20:27 Temperature 97.6 F 03/22/24 20:27 Pulse Rate 66 03/22/24 22:21 Respiratory Rate 16 03/22/24 22:21 Blood Pressure 157/98 H 03/22/24 20:27 Pulse Oximetry 97 03/22/24 22:21 Oxygen Delivery Method Room Air 03/22/24 20:27 MDM - Neuro Symptoms/Deficit MDM Narrative Medical decision making narrative: patient presents with worsening weakness and numbness of his arms and hands. weakness of extension of his hands and wrist and weak hand grasp bilaterally. Did have MRI brain 03/19/24 that demonstrated disc herniation throughout the cervical spine, worse at the C3-C4 level where there is moderate central canal stenosis. Discussed with Neurologist Dr corona who recommends a MRI of his brain for acute workup. Discussed with ER physician Dr Gonzales and patient accepted in transfer to [facility] [place] WBC elevated due to use of prednisone for the past couple of days. Lab Data Labs: Lab Results 03/22/24 Range/Units 20:56 WBC 17.7 H (4.0-11.0) 10^3/uL RBC 5.49 (4.70-6.10) 10^6/uL Hgb 16.3 (14.0-18.0) g/dL Hct 49.1 (42.0-54.0) % MCV 89.4 (80.0-94.0) fL MCH 29.7 (25.9-34.0) pg MCHC 33.2 (29.9-35.2) g/dL RDW 13.2 (11.0-15.0) % Plt Count 373 (150-450) 10^3/uL MPV 9.1 L (9.5-13.5) fL Neut % (Auto) 77.9 H (43.0-75.0) % Lymph % (Auto) 15.9 L (20.5-60.0) % [place] % (Auto) 5.3 (1.7-12.0) % Eos % (Auto) 0.2 L (0.9-7.0) % Baso % (Auto) 0.2 (0.2-2.0) % Neut # (Auto) 13.8 H (1.4-6.5) 10^3/uL Lymph # (Auto) 2.8 (1.2-3.8) 10^3/uL [place] # (Auto) 0.9 H (0.3-0.8) 10^3/uL Eos # (Auto) 0.0 (0.0-0.7) 10^3/uL Baso # (Auto) 0.0 (0.0-0.1) 10^3/uL Abs Immat Gran (auto) 0.08 H (0.00-0.03) 10^3/uL Imm/Tot Granulo (auto) 0.5 (0.0-0.5) % Sodium 138 (136-145) mmol/L Potassium 4.0 (3.5-5.1) mmol/L Chloride 99 (98-107) mmol/L Carbon Dioxide 27.9 (21.0-32.0) mmol/L Anion Gap 15.1 BUN 21.0 H (7.0-18.0) mg/dL Creatinine 0.95 (0.70-1.30) mg/dL Est GFR ( Amer) >60 (>=60) Est GFR (Non-Af Amer) >60 (>=60) BUN/Creatinine Ratio 22.1 Glucose 155 H (74-106) mg/dL Calcium 9.3 (8.5-10.1) mg/dL C-Reactive Protein <0.50 (<=0.50) mg/dL Imaging Data Chest x-ray: Radiologist's impression: [email or web address]=#[email or web address] [email or web address]=#[email or web address] Find: Highlight all Match case Current View [email or web address]=#[email or web address]&zoom=auto,- Page: of 2 Current View [email or web address],- [address] [address] Patient Name: BHUMIKA BRYANT MRN: [id number] date: 1975 Sex: M Assigned Patient Location: ED.MAIN Current Patient Location: Accession/Order Number: [id number] Exam Date: 03/19/2024 19:50 Report Date: 03/19/2024 22:13 At the request of: KATHARINE CHEN Procedure: MR cervical spine wo con EXAM: MR cervical spine wo con HISTORY: The patient is a 48-year-old male, bilateral arm weakness COMPARISON: CT scan of the cervical spine from 4:44 PM. TECHNIQUE: Sagittal T1, T2, STIR; axial T2, GRE. FINDINGS: The accompanying CT scan of the cervical spine reported thickened calcification of the posterior longitudinal ligament at the C2-C3 and C3-C4 levels. The sagittal images of the current MRI demonstrate no masses or signal abnormalities throughout the cervical spinal cord. There is no cerebellar tonsillar ectopia. The sagittal images demonstrate no fractures or loss of vertebral body height throughout the cervical spine. No bone marrow edema is seen within any of the cervical vertebrae. There is no malalignment. There is moderate disc space narrowing throughout the cervical spine. The axial images demonstrate no paraspinal masses or fluid collections. Segmental analysis: C2-C3: No disc bulges or protrusions. No central canal stenosis. The neural foramen are patent bilaterally. C3-C4: There is a central disc extrusion at this level. This causes moderate central canal stenosis. The neural foramen are patent bilaterally. This is the worst level. C4-C5: There is a central disc protrusion at this level. This does not cause central canal stenosis. The neural foramen are patent bilaterally. C5-C6: There is a central disc protrusion at this level. This does not cause central canal stenosis. There is mild neural foraminal narrowing bilaterally. C6-C7: There is a broad-based central disc protrusion at this level. This does not cause central canal stenosis. The neural foramen are relatively patent bilaterally. C7-T1: No disc bulges or protrusions. No central canal stenosis. The neural foramen are patent bilaterally. IMPRESSION: Disc herniations throughout the cervical spine, worst at the C3-C4 level where there is moderate central canal stenosis. Electronically authenticated by: MARGARITA JIMÉNEZ Date: 03/19/2024 22:13 Discharge Plan Discharge Chief Complaint: Neuro Symptoms/Deficit Clinical Impression: Bilateral arm weakness Patient Disposition: [facility] Discharge Location: [facility]
[2024-03-22] MEDS: MAGNESIUM SULFATE IN WATER 2 GM/50 ML PREMIX IV (20:59)
[2024-03-22] MEDS: METHYLPREDNISOLONE SOD SUCC PF 125 MG/2 ML VIAL IVP (20:59)
[2024-03-22 21:16] LABS: Basophils Percent Auto 0.2 % (0.2-2.0); Eosinophils Percent Auto 0.2 % (0.9-7.0); Hematocrit 49.1 % (42.0-54.0); Hemoglobin 16.3 g/dL (14.0-18.0); Immature Granulocytes Abs Auto 0.08 10^3/uL (0.00-0.03); Immature Granulocytes Pct Auto 0.5 % (0.0-0.5); Lymphocytes Absolute Auto 2.8 10^3/uL (1.2-3.8); Lymphocytes Percent Auto 15.9 % (20.5-60.0); Mean Corpuscular HGB Conc 33.2 g/dL (29.9-35.2); Mean Corpuscular Hemoglobin 29.7 pg (25.9-34.0); Mean Corpuscular Volume 89.4 fL (80.0-94.0); Mean Platelet Volume 9.1 fL (9.5-13.5); Monocytes Absolute Auto 0.9 10^3/uL (0.3-0.8); Monocytes Percent Auto 5.3 % (1.7-12.0); Neutrophils Absolute Auto 13.8 10^3/uL (1.4-6.5); Neutrophils Percent Auto 77.9 % (43.0-75.0); Platelet Count 373 10^3/uL (150-450); Red Blood Count 5.49 10^6/uL (4.70-6.10); Red Cell Distribution Width 13.2 % (11.0-15.0); White Blood Count 17.7 10^3/uL (4.0-11.0)
[2024-03-22 21:29] LABS: Anion Gap 15.1; BUN Creatinine Ratio 22.1; C Reactive Protein <0.50 mg/dL (<=0.50); Calcium 9.3 mg/dL (8.5-10.1); Carbon Dioxide 27.9 mmol/L (21.0-32.0); Chloride 99 mmol/L (98-107); Estimated GFR (African America >60 (>=60); Estimated GFR (Non-African Ame >60 (>=60); Glucose 155 mg/dL (74-106); Sodium 138 mmol/L (136-145)
[2024-03-22 22:21] VITALS: PULSE 66; O2SAT 97
[2024-03-22 22:38] VITALS: BP 155/89
[2024-03-22 23:00] VITALS: BP 148/83; PULSE 70; O2SAT 99
== END 2024-03-22 23:00 | disposition short-term general hospital (02) ==
PROVIDERS: Emergency Provider Internal Medicine; PCP Nurse Practitioner
DX: R53.1 Weakness (principal)
CPT/HCPCS: 36415; 80048; 85025; 86140; 96365; 96375; 99285; J2919; J3475

== ENCOUNTER 2024-04-15 13:52 | Outpatient (OUT) | payer MEDICAID, SELFPAY ==
--- OUTSIDE RECORDS SUMMARY | 2024-04-15 14:11 | XMS_ITS | CCD ---
Author Organization [facility] Care Team Providers Care Nuclear Operator Name Role Phone PHYSICIAN, DEFAULT Admitting Unavailable PHYSICIAN, DEFAULT Attending Unavailable PEGGY GAYTAN Primary Care Unavailable Primo Downing Primary Care Provider [phone] Yue Pedroza Unavailable AICHHOLZ, PIPE ASSEMBLY WORKER CECY Primary Care Unavailable AICHHOLZ, PIPE ASSEMBLY WORKER CECY Admitting Unavailable AICHHOLZ, PIPE ASSEMBLY WORKER CECY Attending Unavailable AICHHOLZ, PIPE ASSEMBLY WORKER CECY Consulting Unavailable AICHHOLZ, PIPE ASSEMBLY WORKER CECY Primary Care Unavailable AICHHOLZ, PIPE ASSEMBLY WORKER CECY Admitting Unavailable AICHHOLZ, PIPE ASSEMBLY WORKER CECY Attending Unavailable AICHHOLZ, PIPE ASSEMBLY WORKER CECY Consulting Unavailable AICHHOLZ, PIPE ASSEMBLY WORKER CECY Admitting Unavailable AICHHOLZ, PIPE ASSEMBLY WORKER CECY Attending Unavailable AICHHOLZ, PIPE ASSEMBLY WORKER CECY Consulting Unavailable AICHHOLZ, PIPE ASSEMBLY WORKER CECY Primary Care Unavailable AICHHOLZ, PIPE ASSEMBLY WORKER CECY Primary Care Unavailable VISHAL, DR THANG Nichols Attending Unavailabl eleno RODGERS, DR THANG Nichols Consulting Unavailabl eleno RODGERS, DR THANG Nichols Admitting Unavailabl e JAKOB MCGHEE Consulting Unavailable Lexa Hickman MD Primary Care Provider [phone] Aichholz BAND DIRECTOR, Cecy Unavailable Unavailable Primary Care Provider Unavailabl e Aichfroylanz, Cecy J Primary Care Provider [phone] MD Gale Gonzales Emergency Provider DO Bola Garcia Admit Provider DO Danial Horan Other Provider MD Simon Wolfe Attending Provider [phone] DO Emily Winn Emergency Provider MD Edgar Gomez Admit Provider MD Edgar Gomez Attending Provider DO Bola Garcia Attending Provider [phone] Other Provider CECY HERNANDEZ Attending Unavailable VICKY SCRUGGS Attending Unavailable TANA CARDENAS Attending Unavailable CECY HERNANDEZ Attending Unavailable JULIET HWANG Attending Unavailable LISET JIMENEZ Attending Unavailable CECY HERNANDEZ Attending Unavailable CECY HERNANDEZ Attending Unavailable [address] Consulting Unavailable Edgar Gomez Admitting Unavailable Cecy Hernandez Primary Care Unavailable Bola Garcia Attending Unavailabl Danial Castellon Consulting Unavailable Cecy Hernandez Primary Care Unavailable Simon Wolfe Attending Unavailab Bola Chan Admitting Unavailmilvia johansen Allergies Allergy Classification Reported Allergen(s) Allergy Type Date of Onset Reaction(s) Facility (1 source) Adhesive Tape Allergy to substance 02-20-20 13 Rash [facility] (8 sources) Penicillins; Translations: [Penicillins] Drug Allergy 01-03-20 13 Unknown [facility] (1 source) Penicillins (Antibiotic) Drug allergy rash. when he was kid [facility] Other (4 sources) Desonide Drug Allergy 11-03-[address] [facility] (1 source) Oxytetracycline Drug Allergy 01-03-[address] 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 08-16-20 23 Dermatitis [facility] (1 source) Oxytetracycline Drug Allergy 08-16-20 23 Unknown [facility] (1 source) Penicillin G Drug Allergy 08-16-20 23 Unknown [facility] (1 source) Other Allergy to substance 08-16-20 23 Unknown [facility] (1 source) Wound Dressing Adhesive Propensity to adverse reactions to drug 08-16-20 23 Rash [facility] (1 source) Adhesive agent Propensity to adverse reactions to drug 02-20-20 13 Rash [facility] (4 sources) almond allergenic extract; Translations: [almond] Drug Allergy 03-23-20 [facility] (4 sources) cashew nut allergenic extract; Translations: [cashew nut] Drug Allergy 03-23-20 [facility] (1 source) Adhesive Tape Drug allergy (disorder) 03-29-20 [facility] Medications Current Medications Medication Drug Class(es) Dates Sig (Normalized) Sig (Original) amitriptyline hydrochloride 10 mg oral tablet (6 sources) Tricyclic Antidepressant Start: 03-23-2024 take 10 mg by mouth once daily Amitriptyline Active 10 MG PO Daily March 23, 2024 12:00am Start: 07-05-2023 End: 11-13-2023 take 1 tablet by mouth once daily amitriptyline (ELAVIL) 10 mg tablet TAKE 1 TABLET BY MOUTH DAILY at 8:00pm 30 tablet 2 11/13/2023 Active aspirin 81 mg chewable tablet (5 sources) Platelet Aggregation Inhibitor, Nonsteroidal Anti-inflammatory Drug Start: 03-23-2024 take 1 tablet by mouth once daily Aspirin Active 1 TAB PO Daily March 23, 2024 12:00am Start: 02-13-2023 aspirin 81 mg chewable tablet take 1 tablet by thang th in the morning aspirin 81 MG EC tablet Take 81 mg by mouth in the morning. 0 Active citalopram 40 mg oral tablet (7 sources) Serotonin Reuptake Inhibitor Start: 03-23-2024 take 40 mg by mouth once daily Citalopram Active 40 MG PO Daily March 23, 2024 12:00am End: 04-25-2014 citalopram (CeleXA) 40 mg ta blet citalopram 40 mg tablet 0 Active Comment on above: Take 40 mg by mouth once daily. dapagliflozin 5 mg oral tablet (4 sources) Sodium-Glucose Cotransporter 2 Inhibitor Start: 03-23-20 take 1 tablet by mouth once daily Dapagliflozin Propanediol (Farxiga) 5 mg tablet Active 10 MG PO Daily March 23, 2024 12:00am Start: 12-14-2022 take 1 tablet by thang th in the morning FARXIGA 5 mg tablet Take 1 tablet (5 mg total) by mouth in the morning. 0 12/14/2022 Active fluticasone propionate 0.05 mg/actuat metered dose nasal spray (7 sources) Corticosteroid Start: 03-23-2024 Fluticasone Pr opionate Active 2 SPRAY INTRANASAL Daily at bedtime March 23, 2024 12:00am Start: 10-08-2021 take 2 spray(s) nasa l route once daily Fluticasone Propionate 50 MCG/ACT 2 sprays Nasally Once a day for 14 day(s) Sep, Active fluticasone prop ionate (FLONASE) 50 mcg/actuation nasal spray fluticasone propionate 50 mcg/actuation nasal spray,suspension 0 Active take 2 spray(s) nasa l route in the morning fluticasone (Flonase) 50 MCG/ACT nasal spray Administer 2 sprays into each nostril in the morning. Shake gently. Before first use, prime pump. After use, clean tip and replace cap.. 0 Active Fluticasone Furo ate Active gabapentin 300 mg oral capsule (3 sources) Anti-epileptic Agent Start: 03-23-2024 take 300 mg by mouth twice daily Gabapentin Active 300 MG PO .bid March 23, 2024 12:00am hydroCHLOROthiazide 25 mg / lisinopril 20 mg oral tablet (5 sources) Thiazide Diuretic, Angiotensin Converting Enzyme Inhibitor Start: 03-23-2024 take 1 tablet by mouth once daily Lisinopril-Hydr ochlorothiazide Active 1 TAB PO Daily March 23, 2024 12:00am lisinopril-hydro CHLOROthiazide (PRINZIDE,ZESTORETIC) 20-25 mg per tablet lisinopril 20 mg-hydrochlorothiazide 25 mg tablet 0 Active Lisinopril-hydro CHLOROthiazide 20-25 MG Oral for 30 Active loratadine 10 mg oral tablet (6 sources) Start: 03-23-2024 take 1 tablet by mouth once daily Loratadine (Allergy Relief (Loratadine)) 10 mg tablet Active 10 MG PO Daily March 23, 2024 12:00am loratadine (CLAR ITIN) 10 mg tablet loratadine 10 mg tablet 0 Active meloxicam 15 mg oral tablet (5 sources) Nonsteroidal Anti-inflammatory Drug Start: 03-23-2024 take 15 mg by mouth once daily Meloxicam Active 15 MG PO Daily March 23, 2024 12:00am Start: 02-13-2023 meloxicam (MOB IC) 15 mg tablet Mobic Active metFORMIN hydrochloride 1000 mg oral tablet (5 sources) Biguanide Start: 03-23-2024 take 1000 mg by mouth twice daily Metformin Active 1000 MG PO .bid March 23, 2024 12:00am metFORMIN (GLUCO PHAGE) 1000 mg tablet metformin 1,000 mg tablet 0 Active pioglitazone 30 mg oral tablet (7 sources) Peroxisome Proliferator Receptor alpha Agonist, Peroxisome Proliferator Receptor gamma Agonist, Thiazolidinedione Start: 03-23-2024 take 30 mg by mouth once daily Pioglitazone Active 30 MG PO Daily March 23, 2024 12:00am Start: 02-13-2023 End: 11-11-2023 pioglitazone (ACTOS) 30 mg t ablet Actos Active polyethylene glycol 3350 28893 mg powder for oral solution (1 source) Osmotic Laxative Start: 12-15-2022 polyethylene glycol, PEG, 3350 (Glycolax) 17 GM/SCOOP powder Take 17 g by mouth in the morning. 0 12/15/2022 Active predniSONE 10 mg oral tablet (3 sources) Start: 03-23-2024 take 3 tablets by mouth once daily, then take 2 tablets by mouth once daily, then take 1 tablet by mouth once daily Prednisone Active 30 MG PO Daily March 23, 2024 12:00am orally daily; TAKE 3 TABLETS BY MOUTH DAILY FOR 3 DAYS, then TAKE 2 TABLETS BY MOUTH DAILY FOR 3 DAYS, then TAKE 1 TABLET BY MOUTH DAILY FOR 3 DAYS simvastatin 20 mg oral tablet (4 sources) HMG-CoA Reductase Inhibitor Start: 03-23-2024 take 20 mg by mouth once daily at bedtime Simvastatin Active 20 MG PO Daily at bedtime March 23, 2024 12:00am Start: 02-13-2023 simvastatin (Z OCOR) 20 mg tablet tiZANidine 4 mg oral tablet (4 sources) Central alpha-2 Adrenergic Agonist Start: 03-23-2024 take 4 mg by mouth once daily at bedtime Tizanidine Active 4 MG PO Daily at bedtime March 23, 2024 12:00am Start: 02-13-2023 tiZANidine (ZA NAFLEX) 4 mg tablet Completed/Discontinued Medications Medication Drug [...] Da te Episodic/Chronic Diabetes mellitus without complication (17 sources) Type 2 diabetes mellitus without complications; Translations: [Type 2 diabetes mellitus without complication] Onset: 01-11-2022 Chronic Diseases of white blood cells (4 sources) Leukocytosis; Translations: [Elevated white blood cell count, unspecified] 03-30-2024 Chronic E Codes: Fall (4 sources) Fall on same level from slipping, tripping and stumbling with subsequent striking against other sharp object, initial encounter; Translations: [Fall] Onset: 04-25-2022 03-30-2024 Episodic Essential hypertension (11 sources) Essential (primary) hypertension; Translations: [Benign essential hypertension] Onset: 04-25-2022 08-16-2023 Chronic Mood disorders (4 sources) Depressive disorder; Translations: [Depression] Onset: 08-16-2023 08-16-2023 Chronic Mood disorders (1 source) Mood disorders; Translations: [Depression, unspecified] Onset: 03-23-2024 Other aftercare (1 source) group home (current) use of oral hypoglycemic drugs; Translations: [SLAT BASKET MAKER MACHINE USE ORAL HYPOGLYCEMIC DX] Onset: 04-25-2022 Episodic Other aftercare (1 source) tank terminal gauger (current) use of aspirin; Translations: [SLAT BASKET MAKER MACHINE CURRENT USE OF ASPIRIN] Onset: 04-25-2022 Episodic Other aftercare (1 source) Other long distance billing operator (current) drug therapy; Translations: [OTH SLAT BASKET MAKER MACHINE CURRENT DRUG THERAPY] Onset: 04-25-2022 Episodic Other connective tissue disease (3 sources) Muscle weakness of upper limb; Translations: [Other symptoms and signs involving the musculoskeletal system] 03-23-2024 Episodic Other connective tissue disease (10 sources) Other symptoms and signs involving the musculoskeletal system; Translations: [Other musculoskeletal symptoms referable to limbs] Onset: 03-30-2024 03-25-2024 Episodic Other connective tissue disease (2 sources) Paraparesis; Translations: [Other symptoms and signs involving the musculoskeletal system] 03-30-2024 Episodic Other connective tissue disease (2 sources) Bilateral weakness of upper limbs; Translations: [Other symptoms and signs involving the musculoskeletal system] 03-30-2024 Episodic Other gastrointestinal disorders (1 source) Constipation; Translations: [Constipation, unspecified] Onset: 08-16-2023 08-16-2023 Episodic Other injuries and conditions due to external causes (3 sources) Unspecified injury of right elbow, initial encounter; Translations: [UNSPECIFIED INJURY RT ELBOW INITIAL] Onset: 04-23-2022 Episodic Other nervous system disorders (1 source) Muscle fasciculation; Translations: [Fasciculation] 03-30-2024 Episodic Other nervous system disorders (2 sources) Fasciculation; Translations: [Abnormal involuntary movements] Onset: 03-30-2024 03-30-2024 Episodic Other nutritional; endocrine; and metabolic disorders [...] Results Test Name Value Interpretation Reference Range Facility Automated basophil %Ordered By: Margaret Malave on 03-30-2024 Basophils/100 WBC (Bld) 0.4 % Normal . [facility] Comment on above: Performed By: #### B MP, MG, CBC #### [facility] [address] Automated basophil countOrde red By: Margaret Malave on 03-30-2024 Basophils (Bld) [#/Vol] 0.1 10*3/uL Normal 0.0-0.2 [facility] Comment on above: Result Comment: PERF ORMED BY: [place] [address] PATHOLOGIST BUTTONHOLE MARKER MARLYN MCKEON M.D. Performed By: #### B MP, MG, CBC #### [address] Automated blood monocyte cou ntOrdered By: Margaret Malave on 03-30-2024 Monocytes (Bld) [#/Vol] 1.8 10*3/uL High 0.0-0.8 [facility] Comment on above: Performed By: #### B MP, MG, CBC #### [address] Automated eosinophil %Ordere d By: aMrgaret Malave on 03-30-2024 Eosinophils/100 WBC (Bld) 1.0 % Normal . [facility] Comment on above: Performed By: #### B MP, MG, CBC #### [address] Automated eosinophil countOr dered By: Margaret Malave on 03-30-2024 Eosinophils (Bld) [#/Vol] 0.2 10*3/uL Normal 0.0-0.45 [facility] Comment on above: Performed By: #### B MP, MG, CBC #### [address] Automated monocyte %Ordered By: Margaret Malave on 03-30-2024 Monocytes/100 WBC (Bld) 9.0 % Normal . [facility] Comment on above: Performed By: #### B MP, MG, CBC #### [address] Automated neutrophil %Ordere d By: Margaret Malave on 03-30-2024 Neutrophils/100 WBC (Bld) 67.6 % Normal . [facility] Comment on above: Performed By: #### B MP, MG, CBC #### [address] Basic Metabolic Panelon Creatinine Clr Calc Pharmacy 238.21 Normal [facility] Comment on above: Performed By: #### B MP, MG, CBC #### [address] GFR/1.73 sq M.predicted MDRD (S/P/Bld) [Vol rate/Area] mL/min/{1.73_m2} Normal [facility] Comment on above: Performed By: #### B MP, MG, CBC #### [address] head/brain wo conon 03-30 CT head/brain wo con [facility] [place] [address] [place] [address] CT Scan Report Signed Patient: Bhumika Umana JR MR#: [id number] : 1975 Acct:[id number] Age/Sex: 48 / M ADM Date: 03/30/24 Loc: Room: [address] [place] [address] Type: ADM INOo Attending Dr: Bola Garcia DO Copies to: DO Emily Watson DO Ordering Provider: Emily Winn DO Date of Service: 03/29/24 CT/CT head/brain wo con: BLE weakness, ?MS recently diagnosed Unenhanced head CT TECHNIQUE: Contiguous axial imaging of the head. The CT exam was performed using one or more the following dose reduction techniques: Automated exposure control, adjustment of the MA and/or Kv according to patient size, or use of the iterative reconstruction technique. COMPARISON: 03/23/24 MRI brain HISTORY: Bilateral lower extremity weakness VENTRICLES: Within normal limits ATROPHY: None BRAIN PARENCHYMA: Adequate phillips-white matter differentiation identified. HEMORRHAGE: None HERNIATION: No mass effect or herniation INFARCTION: No recent vascular distribution infarction is seen. EXTRA-AXIAL FLUID COLLECTIONS None MIDBRAIN: Unremarkable BRENDAN: Unremarkable MEDULLA: Unremarkable SINUSES: Unremarkable ORBITS: Grossly unremarkable MASTOIDS: Unremarkable BONY STRUCTURES Intact ADDITIONAL FINDINGS: CT/CT head/brain wo con IMPRESSION: No acute findings. Impression dictated by: Mert Ferreira M.D.03/30/2024 9:26 AM Dictation Location: [place] [address] Transcribed By: [facility] 03/30/24925 Dictated By: Mert Ferreira DO 03/30/24917 Signed By: 03/30/24925 Normal [facility] Calcium [Mass/volume] in Ser um or PlasmaOrdered By: Margaret Malave on 03-30-2024 Calcium [Mass/Vol] 9.3 mg/dL Normal 8.6-10.3 [facility] Comment on above: Performed By: #### B MP, MG, CBC #### [address] Capillary blood glucose pete urement by glucometer (mass/volume)Ordered By: Edgar Gomez on 03-30-2024 Glucose [Mass/Vol] 115 mg/dL Normal [facility] Comment on above: Random Glucose Refer ence Range is dependent on time and content of last meal. Glucose of more than 200 mg/dL in a nonstressed, ambulatory subject supports the diagnosis of Diabetes Mellitus. Result Comment: [place] [facility] Glucose Reference Range is dependent on time and content of last meal. Glucose of more than 200 mg/dL in a nonstressed, ambulatory subject supports the diagnosis of Diabetes Mellitus. PERFORMED BY: [address] [place] [address] PATHOLOGIST BUTTONHOLE MARKER MARLYN MCKEON M.D. Performed By: #### G LULS #### Point of Care testing , Carbon dioxide, total [Moles /volume] in Serum or PlasmaOrdered By: Margaret Malave on 03-30-2024 CO2 [Moles/Vol] 27.2 mmol/L Normal 21.0-31.0 [facility] Comment on above: Performed By: #### B MP, MG, CBC #### [address] Chloride [Moles/volume] in S vandana or PlasmaOrdered By: Margaret Malave on 03-30-2024 Chloride [Moles/Vol] 101 mmol/L Normal 98-107 [facility] Comment on above: Performed By: #### B MP, MG, CBC #### [address] Complete Blood Count Auto Di ffon 03-30-2024 Mean Corpuscular HGB Conc 33.3 g/dL Normal 32.5-35.6 [facility] Comment on above: Performed By: #### B MP, MG, CBC #### [address] NRBC% 0.0 /100{WBC} Normal 0-0.5 [facility] Comment on above: Performed By: #### B MP, MG, CBC #### [address] Creatinine [Mass/volume] in Serum or PlasmaOrdered By: Margaret Malave on 03-30-2024 Creatinine [Mass/Vol] 0.61 mg/dL Low 0.70-1.30 [facility] Comment on above: Performed By: #### B MP, MG, CBC #### [address] Erythrocyte distribution wid th [Ratio] by Automated countOrdered By: Margaret Malave on 03-30-2024 Erythrocyte distribution width (RBC) [Ratio] 13.6 % Normal 12.0-14.8 [facility] Comment on above: Performed By: #### B MP, MG, CBC #### [address] Erythrocytes [#/volume] in B lood by Automated countOrdered By: Margaret Malave on 03-30-2024 RBC (Bld) [#/Vol] 5.03 10*6/uL Normal 3.90-5.60 [facility] Comment on above: Performed By: #### B MP, MG, CBC #### [address] Glucose Poct Glucometerson 0 03-30-2024 Glucose [Mass/Vol] 159 mg/dL Normal [facility] Comment on above: Result Comment: [facility] Glucose Reference Range is dependent on time and content of last meal. Glucose of more than 200 mg/dL in a nonstressed, ambulatory subject supports the diagnosis of Diabetes Mellitus. PERFORMED BY: [place] [address] PATHOLOGIST BUTTONHOLE MARKER MARLYN MCKEON M.D. Performed By: #### C BC, MG, PHOS, CMP #### [address] Glucose [Mass/Vol] 144 mg/dL Normal [facility] Comment on above: Result Comment: [place] [facility] Glucose Reference Range is dependent on time and content of last meal. Glucose of more than 200 mg/dL in a nonstressed, ambulatory subject supports the diagnosis of Diabetes Mellitus. PERFORMED BY: [place] [address] PATHOLOGIST BUTTONHOLE MARKER MARLYN MCKEON M.D. Performed By: #### C BC, MG, PHOS, CMP #### [address] Glucose [Mass/volume] in Ser um or PlasmaOrdered By: Margaret Malave on 03-30-2024 Glucose [Mass/Vol] 119 mg/dL High 70-100 [facility] Comment on above: ADA recommended refe rence rangeRandom Glucose Reference Range is dependent on time and content of last meal. Glucose of more than 200 mg/dL in a nonstressed, ambulatory subject supports the diagnosis of Diabetes Mellitus. Result Comment: [place] [facility] Glucose Reference Range is dependent on time and content of last meal. Glucose of more than 200 mg/dL in a nonstressed, ambulatory subject supports the diagnosis of Diabetes Mellitus. ADA recommended reference range Performed By: #### B MP, MG, CBC #### [address] Hematocrit [Volume Fraction] of Blood by Automated countOrdered By: Margaret Malave on 03-30-2024 Hematocrit (Bld) [Volume fraction] 44.6 % Normal 38.8-50.0 [facility] Comment on above: Performed By: #### B MP, MG, CBC #### [facility] [address] Hemoglobin [Mass/volume] in BloodOrdered By: Margaret Malave on 03-30-2024 Hemoglobin (Bld) [Mass/Vol] 14.9 g/dL Normal 13.0-17.0 [facility] Comment on above: Performed By: #### B MP, MG, CBC #### [place] [address] [place] Leukocytes [#/volume] correc elizabeth for nucleated erythrocytes in Blood by Automated counOrdered By: Margaret Malave on 03-30-2024 WBC corrected for nucl RBC Auto (Bld) [#/Vol] 20.0 10*3/uL High 4.1-10.5 [facility] Leukocytes [#/volume] in Blo od by Automated countOrdered By: Margaret Malave on 03-30-2024 WBC (Bld) [#/Vol] 20.0 10*3/uL High 4.1-10.5 [facility] Comment on above: Performed By: #### B MP, MG, CBC #### [facility] [address] [place] [address] Lymphocytes [#/volume] in Bl ood by Automated countOrdered By: Margaret Malave on 03-30-2024 Lymphocytes (Bld) [#/Vol] 4.4 10*3/uL Normal 1.00-4.8 [facility] Comment on above: Performed By: #### B MP, MG, CBC #### [facility] [address] [place] [address] Lymphocytes/100 leukocytes i n Blood by Automated countOrdered By: Margaret Malave on 03-30-2024 Lymphocytes/100 WBC (Bld) 22.0 % Normal . [facility] Comment on above: Performed By: #### B MP, MG, CBC #### [facility] [address] [place] [address] MCH [Entitic mass] by Automa elizabeth countOrdered By: Margaret Malave on 03-30-2024 MCH (RBC) [Entitic mass] 29.5 pg Normal 27.5-35.2 [facility] Comment on above: Performed By: #### B MP, MG, CBC #### [facility] [address] [place] [address] MCHC Auto (RBC) [Mass/Vol]Or dered By: Margaret Malave on 03-30-2024 MCHC (RBC) [Mass/Vol] 33.3 g/dL 32.5-35.6 [facility] MCV [Entitic volume] by Auto mated countOrdered By: Margaret Malave on 03-30-2024 MCV (RBC) [Entitic vol] 88.6 fL Normal 83.5-101 [facility] Comment on above: Performed By: #### B MP, MG, CBC #### [facility] [address] [place] [address] Magnesium [Mass/volume] in S vandana or PlasmaOrdered By: Margaret Malave on 03-30-2024 Magnesium [Mass/Vol] 1.8 mg/dL Low 1.9-2.7 [facility] Comment on above: Result Comment: PERF ORMED BY: [place] [address] PATHOLOGIST BUTTONHOLE MARKER MARLYN MCKEON M.D. Performed By: #### B MP, MG, CBC #### [address] Neutrophils [#/volume] in Bl ood by Automated countOrdered By: Margaret Malave on 03-30-2024 Neutrophils (Bld) [#/Vol] 13.5 10*3/uL High 1.8-7.7 [facility] Comment on above: Performed By: #### B MP, MG, CBC #### [facility] [address] [place] [address] No Panel InformationOrdered By: Margaret Malave on 03-30-2024 Estimated GFR (CKD-EPI) > 60.0 mL/Min [facility] Creatinine Clearance (Chem 238.21 [facility] Nucleated erythrocytes [Pres ence] in Blood by Automated countOrdered By: Margaret Malave on 03-30-2024 Nucleated RBC Auto Ql (Bld) 0.0 /100{WBC} 0-0.5 [facility] Platelet mean volume [Entiti c volume] in Blood by Automated countOrdered By: Margaret Malave on 03-30-2024 Platelet mean volume (Bld) [Entitic vol] 7.5 fL Normal 6.6-10.1 [facility] Comment on above: Performed By: #### B MP, MG, CBC #### [facility] [address] [place] [address] Platelets [#/volume] in Bloo d by Automated countOrdered By: Margaret Malave on 03-30-2024 Platelets (Bld) [#/Vol] 324 10*3/uL Normal 150-450 [facility] Comment on above: Performed By: #### B MP, MG, CBC #### [facility] [facility] [address] Potassium [Moles/volume] in Serum or PlasmaOrdered By: Margaret Malave on 03-30-2024 Potassium [Moles/Vol] 4.4 mmol/L Normal 3.5-5.1 [facility] Comment on above: Performed By: #### B MP, MG, CBC #### [address] Serum or plasma anion gap de terminationOrdered By: Margaret Malave on 03-30-2024 Anion gap [Moles/Vol] 12.2 mmol/L Normal 6.0-15.0 [facility] Comment on above: Performed By: #### B MP, MG, CBC #### [address] Sodium [Moles/volume] in Ser um or PlasmaOrdered By: Margaret Malave on 03-30-2024 Sodium [Moles/Vol] 136 mmol/L Normal 136-145 [facility] Comment on above: Performed By: #### B MP, MG, CBC #### [address] Urea nitrogen [Mass/volume] in Serum or PlasmaOrdered By: Margaret Malave on 03-30-2024 Urea nitrogen [Mass/Vol] 13 mg/dL Normal 7-25 [facility] Comment on above: Performed By: #### B MP, MG, CBC #### [address] Automated basophil %Ordered By: Emily Winn on 03-29-2024 Basophils/100 WBC (Bld) 0.5 % Normal . [facility] Comment on above: Performed By: #### G LULS #### Point of Care testing , Automated basophil countOrde red By: Emily Winn on 03-29-2024 Basophils (Bld) [#/Vol] 0.1 10*3/uL Normal 0.0-0.2 [facility] Comment on above: Performed By: #### G LULS #### Point of Care testing , Automated blood monocyte cou ntOrdered By: Emily Winn on 03-29-2024 Monocytes (Bld) [#/Vol] 1.1 10*3/uL High 0.0-0.8 [facility] Comment on above: Performed By: #### G LULS #### Point of Care testing , Automated eosinophil %Ordere d By: Emily Winn on 03-29-2024 Eosinophils/100 WBC (Bld) 0.6 % Normal . [facility] Comment on above: Performed By: #### G LULS #### Point of Care testing , Automated eosinophil countOr dered By: Emily Winn on 03-29-2024 Eosinophils (Bld) [#/Vol] 0.1 10*3/uL Normal 0.0-0.45 [facility] Comment on above: Performed By: #### G LULS #### Point of Care testing , Automated monocyte %Ordered By: Emily Winn on 03-29-2024 Monocytes/100 WBC (Bld) 6.5 % Normal . [facility] Comment on above: Performed By: #### G LULS #### Point of Care testing , Automated neutrophil %Ordere d By: Emily Winn on 03-29-2024 Neutrophils/100 WBC (Bld) 77.7 % Normal . [facility] Comment on above: Performed By: #### G LULS #### Point of Care testing , Basic Metabolic Panelon Creatinine Clr Calc Pharmacy 196.64 Normal [facility] Comment on above: Performed By: #### B MP, MG, CBC #### [facility] [address] GFR/1.73 sq M.predicted MDRD (S/P/Bld) [Vol rate/Area] mL/min/{1.73_m2} Normal [facility] Comment on above: Performed By: #### B MP, MG, CBC #### [facility] [address] C reactive protein [Mass/vol ume] in Serum or PlasmaOrdered By: Emily Winn on 03-29-2024 CRP [Mass/Vol] < 0.5 mg/dL 0.0-0.5 [facility] C-Reactive Proteinon 024 CRP [Mass/Vol] mg/L Normal 0.0-0.5 [facility] Comment on above: Result Comment: PERF ORMED BY: [place] [address] PATHOLOGIST [employer] MARLYN MCKEON M.D. Performed By: #### B MP, MG, CBC #### [address] Calcium [Mass/volume] in Ser um or PlasmaOrdered By: Emily Winn on 03-29-2024 Calcium [Mass/Vol] 9.3 mg/dL Normal 8.6-10.3 [facility] Comment on above: Performed By: #### B MP, MG, CBC #### [address] Capillary blood glucose pete urement by glucometer (mass/volume)Ordered By: Emily Winn on 03-29-2024 Glucose [Mass/Vol] 204 mg/dL Normal [facility] Comment on above: Random Glucose Refer ence Range is dependent on time and content of last meal. Glucose of more than 200 mg/dL in a nonstressed, ambulatory subject supports the diagnosis of Diabetes Mellitus. Result Comment: [place] [facility] Glucose Reference Range is dependent on time and content of last meal. Glucose of more than 200 mg/dL in a nonstressed, ambulatory subject supports the diagnosis of Diabetes Mellitus. PERFORMED BY: [facility] [address] [facility] [address] PATHOLOGIST [employer] MARLYN MCKEON M.D. Performed By: #### C BC, MG, PHOS, CMP #### [facility] [address] [place], [place] [id number] [facility] Carbon dioxide, total [Moles /volume] in Serum or PlasmaOrdered By: Emily Winn on 03-29-2024 CO2 [Moles/Vol] 23.0 mmol/L Normal 21.0-31.0 [facility] Comment on above: Performed By: #### B MP, MG, CBC #### [facility] [address] Chloride [Moles/volume] in S vandana or PlasmaOrdered By: Emily Winn on 03-29-2024 Chloride [Moles/Vol] 101 mmol/L Normal 98-107 [facility] Comment on above: Performed By: #### B MP, MG, CBC #### [facility] [address] Complete Blood Count Auto Di ffon 03-29-2024 Mean Corpuscular HGB Conc 33.1 g/dL Normal 32.5-35.6 [facility] Comment on above: Performed By: #### G LULS #### Point of Care testing , Monocytes/100 WBC (Bld) 16.02 % Normal 0.00-20.00 [facility] Comment on above: Performed By: #### G LULS #### Point of Care testing , NRBC% 0.1 /100{WBC} Normal 0-0.5 [facility] Comment on above: Performed By: #### G LULS #### Point of Care testing , Creatine kinase [Enzymatic a ctivity/volume] in Serum or PlasmaOrdered By: Emily Winn on 03-29-2024 CK [Catalytic activity/Vol] 37 U/L Normal 30-223 [facility] Comment on above: Result Comment: PERF ORMED BY: [place] [address] PATHOLOGIST [employer] MARLYN MCKEON M.D. Performed By: #### G LULS #### Point of Care testing , Creatinine [Mass/volume] in Serum or PlasmaOrdered By: Emily Winn on 03-29-2024 Creatinine [Mass/Vol] 0.74 mg/dL Normal 0.70-1.30 [facility] Comment on above: Performed By: #### B MP, MG, CBC #### [facility] [address] Erythrocyte Sedimentation Ra devaughn 03-29-2024 ESR (Bld) [Velocity] 12 mm/h Normal 0-14 [facility] Comment on above: Result Comment: PERF ORMED BY: [facility] [address] [place] [address] PATHOLOGIST [employer] MARLYN MCKEON M.D. Performed By: #### G LULS #### Point of Care testing , Erythrocyte distribution wid th [Ratio] by Automated countOrdered By: Emily Winn on 03-29-2024 Erythrocyte distribution width (RBC) [Ratio] 13.6 % Normal 12.0-14.8 [facility] Comment on above: Performed By: #### G LULS #### Point of Care testing , Erythrocyte sedimentation ra te by Photometric methodOrdered By: Emily Winn on 03-29-2024 ESR Photometric method (Bld) [Velocity] 12 mm/hr 0-14 [facility] Erythrocytes [#/volume] in B lood by Automated countOrdered By: Emily Winn on 03-29-2024 RBC (Bld) [#/Vol] 5.15 10*6/uL Normal 3.90-5.60 [facility] Comment on above: Performed By: #### G LULS #### Point of Care testing , Glucose [Mass/volume] in Ser um or PlasmaOrdered By: Emily Winn on 03-29-2024 Glucose [Mass/Vol] 201 mg/dL High 70-100 [facility] Comment on above: ADA recommended refe rence rangeRandom Glucose Reference Range is dependent on time and content of last meal. Glucose of more than 200 mg/dL in a nonstressed, ambulatory subject supports the diagnosis of Diabetes Mellitus. Result Comment: [place] Glucose Reference Range is dependent on time and content of last meal. Glucose of more than 200 mg/dL in a nonstressed, ambulatory subject supports the diagnosis of Diabetes Mellitus. ADA recommended reference range Performed By: #### B MP, MG, CBC #### [facility] [address] Hematocrit [Volume Fraction] of Blood by Automated countOrdered By: Emily Winn on 03-29-2024 Hematocrit (Bld) [Volume fraction] 45.6 % Normal 38.8-50.0 [facility] Comment on above: Performed By: #### G LULS #### Point of Care testing , Hemoglobin [Mass/volume] in BloodOrdered By: Emily Winn on 03-29-2024 Hemoglobin (Bld) [Mass/Vol] 15.1 g/dL Normal 13.0-17.0 [facility] Comment on above: Performed By: #### G LULS #### Point of Care testing , Leukocytes [#/volume] correc elizabeth for nucleated erythrocytes in Blood by Automated counOrdered By: Emily Winn on 03-29-2024 WBC corrected for nucl RBC Auto (Bld) [#/Vol] 17.1 10*3/uL High 4.1-10.5 [facility] Leukocytes [#/volume] in Blo od by Automated countOrdered By: Emily Winn on 03-29-2024 WBC (Bld) [#/Vol] 17.1 10*3/uL High 4.1-10.5 [facility] Comment on above: Performed By: #### G LULS #### Point of Care testing , Lymphocytes [#/volume] in Bl ood by Automated countOrdered By: Emily Winn on 03-29-2024 Lymphocytes (Bld) [#/Vol] 2.5 10*3/uL Normal 1.00-4.8 [facility] Comment on above: Performed By: #### G LULS #### Point of Care testing , Lymphocytes/100 leukocytes i n Blood by Automated countOrdered By: Emily Winn on 03-29-2024 Lymphocytes/100 WBC (Bld) 14.7 % Normal . [facility] Comment on above: Performed By: #### G LULS #### Point of Care testing , MCH [Entitic mass] by Automa elizabeth countOrdered By: Emily Winn on 03-29-2024 MCH (RBC) [Entitic mass] 29.3 pg Normal 27.5-35.2 [facility] Comment on above: Performed By: #### G LULS #### Point of Care testing , MCHC Auto (RBC) [Mass/Vol]Or dered By: Emily Winn on 03-29-2024 MCHC (RBC) [Mass/Vol] 33.1 g/dL 32.5-35.6 [facility] MCV [Entitic volume] by Auto mated countOrdered By: Emily Winn on 03-29-2024 MCV (RBC) [Entitic vol] 88.5 fL Normal 83.5-101 [facility] Comment on above: Performed By: #### G LULS #### Point of Care testing , Monocyte distribution width [Entitic volume] in Blood by AutomatedOrdered By: Emily Winn on 03-29-2024 Monocyte distribution width Auto (Bld) [Entitic vol] 16.02 % 0.00-20.00 [facility] Myoglobinon 03-29-2024 Myoglobin [Mass/Vol] 31 ng/mL Normal 28-72 [facility] Comment on above: Result Comment: Perf ormed at: CB - [facility] [address] [id number] Lodging Facilities Manager: Gabriel Chan PhD, Phone: [phone] PERFORMED BY: [place] [address] PATHOLOGIST [employer] MARLYN MCKEON M.D. Performed By: #### B MP, MG, CBC #### [address] Neutrophils [#/volume] in Bl ood by Automated countOrdered By: Emily Winn on 03-29-2024 Neutrophils (Bld) [#/Vol] 13.3 10*3/uL High 1.8-7.7 [facility] Comment on above: Performed By: #### G LULS #### Point of Care testing , No Panel InformationOrdered By: Emily Winn on 03-29-2024 Estimated GFR (CKD-EPI) > 60.0 mL/Min [facility] Creatinine Clearance (Chem 196.64 [facility] Nucleated erythrocytes [Pres ence] in Blood by Automated countOrdered By: Emily Winn on 03-29-2024 Nucleated RBC Auto Ql (Bld) 0.1 /100{WBC} 0-0.5 [facility] Platelet mean volume [Entiti c volume] in Blood by Automated countOrdered By: Emily Winn on 03-29-2024 Platelet mean volume (Bld) [Entitic vol] 7.4 fL Normal 6.6-10.1 [facility] Comment on above: Performed By: #### G LULS #### Point of Care testing , Platelets [#/volume] in Bloo d by Automated countOrdered By: Emily Winn on 03-29-2024 Platelets (Bld) [#/Vol] 352 10*3/uL Normal 150-450 [facility] Comment on above: Performed By: #### G LULS #### Point of Care testing , Potassium [Moles/volume] in Serum or PlasmaOrdered By: Emily Winn on 03-29-2024 Potassium [Moles/Vol] 4.4 mmol/L Normal 3.5-5.1 [facility] Comment on above: Performed By: #### B MP, MG, CBC #### [facility] [address] Serum or plasma anion gap de terminationOrdered By: Emily Winn on 03-29-2024 Anion gap [Moles/Vol] 14.4 mmol/L Normal 6.0-15.0 [facility] Comment on above: Performed By: #### B MP, MG, CBC #### [facility] [address] Sodium [Moles/volume] in Ser um or PlasmaOrdered By: Emily Winn on 03-29-2024 Sodium [Moles/Vol] 134 mmol/L Low 136-145 [facility] Comment on above: Performed By: #### B MP, MG, CBC #### [facility] [address] [place] [address] [facility] Urea nitrogen [Mass/volume] in Serum or PlasmaOrdered By: Emily Winn on 03-29-2024 Urea nitrogen [Mass/Vol] 15 mg/dL Normal 7- [facility] Comment on above: Performed By: #### B MP, MG, CBC #### [facility] [address] [place] [id number] [place] Activated partial thrombopla stin time (aPTT) in platelet poor plasma by coagulation aOrdered By: Danial oHran on 03-25-2024 aPTT Coag (PPP) [Time] 30.2 s 25.1-36.5 [facility] Comment on above: A hematocrit value g reater than 55% may lead to inaccurate results in coagulation testing. Patients having hematocrit values >55% require a special collection tube for coagulation studies. Please contact the laboratory at [phone] for redraw instructions. Aerobic Cultureon 03-25-2024 Aerobic Culture PER LAB PROTOCAL - W HEN PCR ORDERED, A CULTURE MUST BE ORDERED. Tube Number for CSF Microbiology: 2 No Growth 2 Days PER LAB PROTOCAL - WHEN PCR ORDERED, A CULTURE MUST BE ORDERED. Tube Number for CSF Microbiology: 2 No Anaerobes Isolated 3 Days PER LAB PROTOCAL - WHEN PCR ORDERED, A CULTURE MUST BE ORDERED. Tube Number for CSF Microbiology: 2 Gram Stain Result No Bacteria Seen 2+ White Blood Cells PERFORMED BY: [place] [address] PATHOLOGIST [employer] MARLYN MCKEON M.D. Normal [facility] Comment on above: Performed By: #### C BC, MG, PHOS, CMP #### [facility] [address] [place] [address] [place] Albumin [Mass/volume] in Cer ebral spinal fluidOrdered By: Danial Horan on 03-25-2024 Albumin (CSF) [Mass/Vol] 46 mg/dL High 10-45 [facility] Albumin [Mass/volume] in Ser um or PlasmaOrdered By: Danial Horan on 03-25-2024 Albumin [Mass/Vol] 4.2 g/dL 4.1-5.1 [facility] CSF IgG/albumin ratioOrdered By: Danial Horan on 03-25-2024 IgG/Albumin (CSF) [Mass ratio] 0.13 0.00-0.25 [facility] CSF PCR Panelon 03-25-2024 CSF PCR Panel Comment Tube 2 Tube Number for CSF Microbiology: 2 Cytomegalovirus Not detected Cryptococcus neoformans or gattii 9002 Not detected Escherichia coli K1 Not detected Enterovirus Not detected Haemophilus influenzae (reported as H flu) Not detected Human herpesvirus 6 Not detected Herpes simplex virus 1 Not detected Herpes simplex virus 2 DNA [Presence] in Cerebral spinal fluid by BLAYNE with non-probe detection Not detected Listeria monocytogenes (reported as listeriosis) Not detected Neisseria meningitidis - reported as meningococcal disease Not detected Human parechovirus Not detected Streptococcus pneumoniae - reported at ISP Not detected Group B Strep (Streptococcus agalactiae) Not detected Varicella zoster virus Not detected PERFORMED BY: [facility] [address] [facility] [place] [address] PATHOLOGIST [employer] MARLYN MCKEON M.D. Normal [facility] Comment on above: Performed By: #### C BC, MG, PHOS, CMP #### [facility] [address] [place] [address] [facility] Capillary blood glucose pete urement by glucometer (mass/volume)Ordered By: Simon Wolfe on 03-25-2024 Glucose [Mass/Vol] 127 mg/dL Normal [facility] Comment on above: Random Glucose Refer ence Range is dependent on time and content of last meal. Glucose of more than 200 mg/dL in a nonstressed, ambulatory subject supports the diagnosis of Diabetes Mellitus. Result Comment: [facility] Glucose Reference Range is dependent on time and content of last meal. Glucose of more than 200 mg/dL in a nonstressed, ambulatory subject supports the diagnosis of Diabetes Mellitus. PERFORMED BY: [facility] [address] [place] [address] PATHOLOGIST [employer] MARLYN MCKEON M.D. Performed By: #### B MP, MG, CBC #### [facility] [address] [place] [address] [place] Cell Count Differential,CSFo n 03-25-2024 Appearance, CSF Turbid Critically abnormal Clear [facility] Comment on above: Order Comment: Comme nt Tube 1 Performed By: #### C BC, MG, PHOS, CMP #### [facility] [address] [place] [address] Color, CSF Red Critically abnormal Colorless [facility] Comment on above: Order Comment: Comme nt Tube 1 Performed By: #### C BC, MG, PHOS, CMP #### [facility] [address] [place] [address] Eosinophil, CSF 2 % High 0-0 [facility] Comment on above: Order Comment: Comme nt Tube 1 Performed By: #### C BC, MG, PHOS, CMP #### [facility] [address] [place] [address] Lymphocytes, CSF 19 % Low 40-80 [facility] Comment on above: Order Comment: Comme nt Tube 1 Performed By: #### C BC, MG, PHOS, CMP #### [facility] [address] [place] [address] Monocytes, CSF 7 % Low 15-45 [facility] Comment on above: Order Comment: Comme nt Tube 1 Performed By: #### C BC, MG, PHOS, CMP #### [facility] [address] [place] [address] Neutrophils, CSF 72 % High 0-6 [facility] Comment on above: Order Comment: Comme nt Tube 1 Performed By: #### C BC, MG, PHOS, CMP #### [facility] [address] [place] [address] [place], [place] [address] Normal [facility] Comment on above: Order Comment: Comme nt Tube 1 Result Comment: The reference interval and other method performance specifications have not been established for this body fluid. The test result must be integrated into the clinical context for interpretation. Performed By: #### C BC, MG, PHOS, CMP #### [facility] [address] [place] [address] TNC, CSF 85 Off scale high 0-5 [facility] Comment on above: Order Comment: Comme nt Tube 1 Result Comment: Crit ical value result called at 1233 on 03/25/24 Performed By: #### C BC, MG, PHOS, CMP #### [address] Tube Number Tested, CSF Tube Number: 1 Normal [facility] Comment on above: Order Comment: Comme nt Tube 1 Result Comment: PERF ORMED BY: [place] [address] PATHOLOGIST [employer] MARLYN MCKEON M.D. Performed By: #### C BC, MG, PHOS, CMP #### [address] Cell Count Differential,CSF #2on 03-25-2024 Appearance, CSF Hazy Critically abnormal Clear [facility] Comment on above: Order Comment: Comme nt Tube 3 Performed By: #### C BC, MG, PHOS, CMP #### [address] Color, CSF LT PINK Normal Colorless [facility] Comment on above: Order Comment: Comme nt Tube 3 Performed By: #### C BC, MG, PHOS, CMP #### [address] CSF Supernatant Color Colorless Normal Colorless [facility] Comment on above: Order Comment: Comme nt Tube 3 Performed By: #### C BC, MG, PHOS, CMP #### [address] Order Comment: Comme nt Tube 1 CSF Volume, Total 9.0 mL Normal [facility] Comment on above: Order Comment: Comme nt Tube 3 Performed By: #### C BC, MG, PHOS, CMP #### [address] Order Comment: Comme nt Tube 1 Eosinophil, CSF 1 % High 0-0 [facility] Comment on above: Order Comment: Comme nt Tube 3 Performed By: #### C BC, MG, PHOS, CMP #### [address] Lymphocytes, CSF 29 % Low 40-80 [facility] Comment on above: Order Comment: Comme nt Tube 3 Performed By: #### C BC, MG, PHOS, CMP #### [facility] [address] [place] [address] Monocytes, CSF 8 % Low 15-45 [facility] Comment on above: Order Comment: Comme nt Tube 3 Performed By: #### C BC, MG, PHOS, CMP #### [facility] [address] [place] [address] Neutrophils, CSF 62 % High 0-6 [facility] Comment on above: Order Comment: Comme nt Tube 3 Performed By: #### C BC, MG, PHOS, CMP #### [address] RBC, CSF 3051 Normal [facility] Comment on above: Order Comment: Comme nt Tube 3 Result Comment: The reference interval and other method performance specifications have not been established for this body fluid. The test result must be integrated into the clinical context for interpretation. Performed By: #### C BC, MG, PHOS, CMP #### [facility] [address] [place] [address] TNC, CSF 3 /uL Normal 0-5 [facility] Comment on above: Order Comment: Comme nt Tube 3 Performed By: #### C BC, MG, PHOS, CMP #### [facility] [address] [place] [address] Tube Number Tested, CSF Tube Number: 3 Normal [facility] Comment on above: Order Comment: Comme nt Tube 3 Result Comment: PERF ORMED BY: [place] [address] PATHOLOGIST [employer] MARLYN MCKEON M.D. Performed By: #### C BC, MG, PHOS, CMP #### [address] Cells Counted Total [#] in B patricia fluidOrdered By: Danial Horan on 03-25-2024 Cells Counted Total (Body fld) [#] 85 mm^3 High 0-5 [facility] Comment on above: Critical valueresult calledat 1233 on 03/25/24 Cerebrospinal fluid IgG inde xOrdered By: Danial Horan on 03-25-2024 IgG clearance/Albumin clearance (S+CSF) [Ratio] 0.6 0.0-0.7 [facility] Cerebrospinal fluid appearan ce descriptionOrdered By: Danial Horan on 03-25-2024 Appearance (CSF) Hazy Abnormal Clear [facility] Cerebrospinal fluid eosinoph il percentageOrdered By: Danial Horan on 03-25-2024 Eosinophils/100 WBC (CSF) 2 % High 0-0 [facility] Cerebrospinal fluid lymphocy te percentageOrdered By: Danial Horan on 03-25-2024 Lymphocytes/Leukocytes Manual cnt (CSF) [Pure # fraction] 19 % Low 40-80 [facility] Cerebrospinal fluid monocyte percentageOrdered By: Danial Horan on 03-25-2024 Monocytes/100 WBC (CSF) 7 % Low 15-45 [facility] Cerebrospinal fluid neutroph il percentageOrdered By: Danial Horan on 03-25-2024 Neutrophils/100 WBC (CSF) 72 % High 0-6 [facility] Cerebrospinal fluid post-oneil trifugation appearance determinationOrdered By: Danial Horan on 03-25-2024 Appearance (Spun CSF) Colorless Colorless [facility] Cerebrospinal fluid sample t ube volume measurementOrdered By: Danial Horan on 03-25-2024 Specimen volume (CSF) 9.0 mL [facility] Color CSFOrdered By: Danial Crawley pler on 03-25-2024 Color (CSF) Lt pink Colorless [facility] Erythrocytes [#/volume] in B patricia fluid by Automated countOrdered By: Danial Horan on 03-25-2024 RBC Auto (Body fld) [#/Vol] 3051 mm^3 [facility] Comment on above: The reference interv al and other method performance specifications have not been established for this body fluid. The test result must be integrated into the clinical context for interpretation. Glucose Poct Glucometerson 0 03-25-2024 Glucose [Mass/Vol] 156 mg/dL Normal [facility] Comment on above: Result Comment: [place] Glucose Reference Range is dependent on time and content of last meal. Glucose of more than 200 mg/dL in a nonstressed, ambulatory subject supports the diagnosis of Diabetes Mellitus. PERFORMED BY: [place] [address] PATHOLOGIST [employer] MARLYN MCKEON M.D. Performed By: #### C BC, MG, PHOS, CMP #### [facility] [address] [place] [address] Glucose [Mass/Vol] 114 mg/dL Normal [facility] Comment on above: Result Comment: [facility] Glucose Reference Range is dependent on time and content of last meal. Glucose of more than 200 mg/dL in a nonstressed, ambulatory subject supports the diagnosis of Diabetes Mellitus. PERFORMED BY: [place] [address] PATHOLOGIST BUTTONHOLE MARKER MARLYN MCKEON M.D. Performed By: #### G LULS #### Point of Care testing , Glucose [Mass/Vol] 99 mg/dL Normal [facility] Comment on above: Result Comment: [facility] Glucose Reference Range is dependent on time and content of last meal. Glucose of more than 200 mg/dL in a nonstressed, ambulatory subject supports the diagnosis of Diabetes Mellitus. PERFORMED BY: [place] [address] PATHOLOGIST [employer]TONHOLE MARKER MARLYN MCKEON M.D. Performed By: #### G LULS #### Point of Care testing , Glucose [Mass/volume] in Cer ebral spinal fluidOrdered By: Danial Horan on 03-25-2024 Glucose (CSF) [Mass/Vol] 72 mg/dL High 40-70 [facility] Glucose, CSF #2on 03-25-2024 Glucose, CSF #2 72 mg/dL High 40-70 [facility] Comment on above: Order Comment: Comme nt Tube 3 Performed By: #### C BC, MG, PHOS, CMP #### [facility] [address] [place] [address] [place] Glucose, Spinal Fluidon 02-26 Glucose, Spinal Fluid 72 mg/dL High 40-70 [facility] Comment on above: Order Comment: Comme nt Tube 1 Performed By: #### C BC, MG, PHOS, CMP #### [facility] [address] [place] [address] [place] Gram Stainon 03-25-2024 Microscopic observation Gram stain Nom (Unsp spec) PER LAB PROTOCAL - WHEN PCR ORDERED, A CULTURE MUST BE ORDERED. Tube Number for CSF Microbiology: 2 Gram Stain Result No Bacteria Seen 2+ White Blood Cells PERFORMED BY: [place] [address] PATHOLOGIST [employer]TONHOLE MARKER MARLYN MCKEON M.D. Normal [facility] Comment on above: Performed By: #### C BC, MG, PHOS, CMP #### [facility] [address] Gram stain for investigation of transfusion reactionOrdered By: Danial Horan on 03-25-2024 Microscopic observation Gram stain Nom (Unsp spec) [facility] Microscopic observation Gram stain Nom (Unsp spec) No Anaerobes Isolated 3 Days Fir [facility] INR in Platelet poor plasma by Coagulation assayOrdered By: Danial Horan on 03-25-2024 INR Coag (PPP) [Relative time] 1.0 {INR} Normal [facility] Comment on above: INR Therapeutic Rang e A) Pre- and Peroperative OAT started two weeks before surgery. NOT HIP SURGERY: 1.5 - 2.5 HIP SURGERY: 2 - 3B) Primary and secondary prevention of venous THROMBOSIS: 2 - 3C) Active venous thrombosis, pulmonary embolismand prevention of recurrent venous thrombosis: 2 - 3D) Prevention of arterial thromboembolismincluding patients with mechanical heart valves: 3 - 4.5 Result Comment: INR Therapeutic Range A) Pre- and Peroperative OAT started two weeks before surgery. NOT HIP SURGERY: 1.5 - 2.5 HIP SURGERY: 2 - 3 B) Primary and secondary prevention of venous THROMBOSIS: 2 - 3 C) Active venous thrombosis, pulmonary embolism and prevention of recurrent venous thrombosis: 2 - 3 D) Prevention of arterial thromboembolism including patients with mechanical heart valves: 3 - 4.5 Performed By: #### G LULS #### Point of Care testing , IR guided lumbar puncture LP on 03-25-2024 IR guided lumbar puncture LP [facility] [place] [address] [place] [address] Interventional Radiology Rpt Signed Patient: Bhumika Umana JR MR#: [id number] : 1975 Acct:[id number] Age/Sex: 48 / M ADM Date: 03/23/24 Loc: Room: [address] [place] [address] Type: ADM IN Attending Dr: Simon Wolfe MD Copies to: DO Simon Aguirre MD Ordering Provider: Danial Horan DO Date of Service: 03/25/24 IR/IR guided lumbar puncture LP: CONCERN FOR DEMYELINATING SYNDROME FLUOROSCOPICALLY GUIDED LUMBAR PUNCTURE CLINICAL HISTORY: Upper extremity weakness. 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 Cumulative Air Kerma in mGy: 31.4 mGy. A total of 2 images obtained. TECHNIQUE: Informed consent was obtained. With fluoroscopic guidance, the skin entry site for lumbar puncture was localized. Sterile prep and drape was performed. Local lidocaine was administered. A 22-gauge spinal needle was utilized. Adequate position confirmed with return of bloody fluid. This progressively clears with with clear CSF identified in the fourth tube. This most consistent with traumatic tap. A total of 11 of CSF was withdrawn and placed in 4 separate tubes. The needle was removed and adequate hemostasis obtained. Patient experienced no immediate complications. Orders ever given. Patient discharged in satisfactory condition. IR/IR guided lumbar puncture LP IMPRESSION: SUCCESSFUL FLUOROSCOPICALLY GUIDED LUMBAR PUNCTURE. traumatic tap. Impression dictated by: Mert Ferreira M.D.03/25/2024 12:51 PM Dictation Location: [place] [address] Transcribed By: [facility] 03/25/24 1251 Dictated By: Mert Ferreira DO 03/25/24 1247 Signed By: 03/25/24 1251 Normal [facility] IgG [Mass/volume] in Cerebra l spinal fluidOrdered By: Danial Horan on 03-25-2024 IgG (CSF) [Mass/Vol] 6.0 mg/dL 0.0-10.3 [facility] IgG [Mass/volume] in Serum o r PlasmaOrdered By: Danial Horan on 03-25-2024 IgG [Mass/Vol] 868 mg/dL 603-1613 [facility] IgG synthesis rate [Mass/tonya e] in Serum and CSF by calculationOrdered By: Danial Horan on 03-25-2024 IgG synthesis rate Calc (S+CSF) [Mass/Time] 5.9 mg/day High -9.9 TO +3.3 [facility] Comment on above: Performed at: [address] [id number] Director: Gabriel Chan PhD, Phone: [phone] Rayshawn 03-25-2024 L Specimen: [id number] Re ceived: 03/25/24 Status: SOUT Req Num: [id number] Spec Type: Cytology Subm Dr: Mert Ferreira DO Tissues: A CSF (CSF) Procedures: Cyto Prepstain, DIFF QWIK, PAPSTN Age/ Patient Sex Location Account Attending Physician Bhumika Umana JR 48/M [id number] Simon Wolfe MD SPEC NUM: [id number] RECD: 03/25/24 STATUS: MEDINA REQ NUM: [id number] SOL: 03/25/24 DR: Mert Ferreira DO ENTERED: 03/25/[address] [facility] DR: Danial Horan DO SPEC TYPE: Cytology DEPT: CNG ENTERED BY: [id number] RECV BY: [id number] ORDERED: Cyto Prepstain, DIFF QWIK, PAPSTN ORDERED: Cyto Prepstain, DIFF QWIK, PAPSTN Pathological Diagnosis Cerebrospinal fluid: Negative for malignant cells. Clinical Information Bilateral hand weakness Gross Description Received is .5 ml pale pink hazy unfixed fluid for cytology said to have been obtained as spinal fluid. Cytospin slides are stained with Papanicolaou and Diff-Quik stains.(NE/ut) CPT Codes 39962 -------- -------- Specimen: [id number] Received: 03/25/24 Status: MEDINA [place] Num: [id number] Spec Type: Cytology Subm Dr: Mert Ferreira DO Tissues: A CSF (CSF) Procedures: Cyto Prepstain, DIFF QWIK, PAPSTN -------- Patient: Bhumika Umana JR [id number] (Continued) -------- Signed (signature on file) Jyoti Gary MD 03/26/24 1447 Normal [facility] MR cervical spine wo/w josi 03-25-2024 MR cervical spine wo/w aline [address] [address] MRI Report Signed Patient: Bhumika Umana JR MR#: [id number] : 1975 Acct:[id number] Age/Sex: 48 / M ADM Date: 03/23/24 Loc: 3T Room: [address] [place] [address] Type: ADM IN Attending Dr: Simon Wolfe MD Copies to: DO Simon Aguirre MD Ordering Provider: Danial Horan DO Date of Service: 03/25/24 MR/MR cervical spine wo/w con: c3-4 sev stenosis, bilat arm weak, ?brain demyelin MR cervical spine wo/w con 03/25/2024 11:03 AM SIGNS AND SYMPTOMS: Bilateral hand weakness PROTOCOL: Multiplanar multisequence MR images of the cervical spine were obtained with and without IV contrast CONTRAST: 20 mL of intravenous ProHance COMPARISON: None. FINDINGS: There is straightening of the normal cervical lordosis. The bones are otherwise in anatomic alignment. There is preservation of vertebral body heights. There is disc height loss at C3-C4, C4-5, C5-6, and C6-C7. The marrow signal is within normal limits. The cord is normal in signal. No epidural or paraspinous fluid collection is appreciated. The visualized paraspinous soft tissues are within normal limits. The prevertebral soft tissues are within normal limits. At C2-C3: There is a normal disc, central canal, and neural foramen. At C3-C4: There is a broad-based disc bulge with a central disc extrusion. This is eccentric slightly to the left of midline with mild caudal migration. This contributes to moderate spinal canal stenosis with mild effacement of the anterior aspect of the cord, left greater than right. There is no underlying cord edema to suggest cord compression. There is uncovertebral joint spurring and facet hypertrophy with moderate to severe left and moderate right neural foraminal stenosis. At C4-C5: There is a normal disc, central canal, and neural foramen. At C5-C6: There is a normal disc, central canal, and neural foramen. At C6-C7: There is a normal disc, central canal, and neural foramen. At C7-T1: There is a normal disc, central canal, and neural foramen. MR/MR cervical spine wo/w con IMPRESSION: At C3-C4: There is a broad-based disc bulge with a central disc extrusion. This is eccentric slightly to the left of midline with mild caudal migration. This contributes to moderate spinal canal stenosis with mild effacement of the anterior aspect of the cord, left greater than right. There is no underlying cord edema to suggest cord compression. There is uncovertebral joint spurring and facet hypertrophy with moderate to severe left and moderate right neural foraminal stenosis. There is no abnormal postcontrast enhancement. There is straightening of the normal cervical lordosis which may be positional or secondary to muscle spasm. Impression dictated by: Pal Oconnor M.D.03/25/2024 12:45 PM Dictation Location: [place] [address] Transcribed By: GARCÍA 03/25/24 1245 Dictated By: Pal Oconnor II, MD 03/25/24 1237 Signed By: 03/25/24 1245 Normal [facility] Meningitis+Encephalitis path ogens DNA and RNA panel - Cerebral spinal fluid by BLAYNE wiOrdered By: Danial Horan on 03-25-2024 Meningitis+Encephaliti s pathogens DNA and RNA panel BLAYNE+non-probe (CSF) [facility] No Panel InformationOrdered By: Danial Horan on 03-25-2024 CSF Myelin Basic Protein 2.7 ng/mL 0.0-4.7 [facility] Comment on above: Results of this test are labeled for research purposes onlyby the assay's supply chain generalist. The performancecharacteristics of this assay have not been established bythe supply chain generalist. The result should not be used fortreatment or for diagnostic purposes without confirmationof the diagnosis by another medically establisheddiagnostic product or procedure. The performancecharacteristics were determined by [facility].Performed at: - [address] [id number] Director: Mariano Jean MD, Phone: [phone] CSF Tube Number Tube number: 3 [facility] Partial Thromboplastin Timeo n 03-25-2024 aPTT Coag (Bld) [Time] 30.2 s Normal 25.1-36.5 [facility] Comment on above: Result Comment: A he matocrit value greater than 55% may lead to inaccurate results in coagulation testing. Patients having hematocrit values >55% require a special collection tube for coagulation studies. Please contact the laboratory at [phone] for redraw instructions. PERFORMED BY: [place] [address] [address] [place] [address] PATHOLOGIST [employer]TONHOLE MARKER MARLYN MCKEON M.D. Performed By: #### G MARGARITA #### Point of Care testing , Protein [Mass/volume] in Cer ebral spinal fluidOrdered By: Danial Horan on 03-25-2024 Protein (CSF) [Mass/Vol] 84 mg/dL High 15-45 [facility] Protein fractions.oligoclona l bands.intrathecal [Presence] in Serum and CSFOrdered By: Danial Horan on 03-25-2024 Protein fractions.oligoclonal bands.intrathecal Ql (S+CSF) Comment . [facility] Comment on above: Zero (0) oligoclonal bands were observed in the CSF.Interpretation: Criteria for Positivity: Four (4) or more oligoclonalbands observed only in the CSF have been shown to be mostconsistent with MS using our method. [Camila , Alphonso, Shayy EDMONDS, and Desean JA: Cerebrospinal FluidOligoclonal Bands in the Diagnosis of Multiple Sclerosis.Am J Clin Pathol 120(5):672-675, 2003]. Oligoclonal bands that are present only in the CSF havebeen associated with a variety of inflammatory braindiseases such as multiple sclerosis (MS), subacuteencephalitis, neurosyphilis, etc. Increased IgG in the CSFis not specific for MS, but is an indication of chronicneural inflammation. Clinical correlation indicated. Approximately 2-3% of clinically confirmed MS patientsshow little or no evidence of oligoclonal bands in theCSF; however oligoclonal bands may develop as the diseaseprogresses. Oligoclonal Banding testing performed using IsoelectricFocusing (IEF) and immunoblotting methodology.Performed at: [facility] [address] [id number] Director: Gabriel Chan PhD, Phone: [phone] Prothrombin time (PT)Ordered By: Danial Horan on 03-25-2024 PT Coag (PPP) [Time] 11.1 s Normal 9.0-12.9 [facility] Comment on above: A hematocrit value g reater than 55% may lead to inaccurate results in coagulation testing. Patients having hematocrit values >55% require a special collection tube for coagulation studies. Please contact the laboratory at [phone] for redraw instructions. Result Comment: A he matocrit value greater than 55% may lead to inaccurate results in coagulation testing. Patients having hematocrit values >55% require a special collection tube for coagulation studies. Please contact the laboratory at [phone] for redraw instructions. Performed By: #### G LULS #### Point of Care testing , Total Protein, CSF #2on 07-2 Total Protein, CSF #2 84 mg/dL High 15-45 [facility] Comment on above: Order Comment: Comme nt Tube 3 Result Comment: PERF ORMED BY: [place] [address] PATHOLOGIST BUTTONHOLE MARKER MARLYN MCKEON M.D. Performed By: #### C BC, MG, PHOS, CMP #### [facility] [address] [place] [address] Total Protein, Spinal Fluido n 03-25-2024 Total Protein, Spinal Fluid 116 mg/dL High 15-45 [facility] Comment on above: Order Comment: Comme nt Tube 1 Result Comment: PERF ORMED BY: [place] [address] PATHOLOGIST BUTTONHOLE MARKER MARLYN MCKEON M.D. Performed By: #### C BC, MG, PHOS, CMP #### [facility] [address] [place], [place] [address] [place] Alanine aminotransferase [En zymatic activity/volume] in Serum or PlasmaOrdered By: Elder Iyer on 03-24-2024 ALT [Catalytic activity/Vol] 24 U/L Normal 7-52 [facility] Comment on above: Performed By: #### C BC, MG, PHOS, CMP #### [facility] [address] [place], [place] [address] [place] Albumin [Mass/volume] in Ser um or Plasma by Bromocresol green (BCG) dye binding methoOrdered By: Elder Iyer on 03-24-2024 Albumin BCG dye [Mass/Vol] 4.1 g/dL 3.5-5.7 [facility] Alkaline phosphatase [Enzyma tic activity/volume] in Serum or PlasmaOrdered By: Elder Iyer on 03-24-2024 ALP [Catalytic activity/Vol] 59 U/L Normal 34-104 [facility] Comment on above: Performed By: #### C BC, MG, PHOS, CMP #### [address] Aspartate aminotransferase [ Enzymatic activity/volume] in Serum or PlasmaOrdered By: Elder Iyer on 03-24-2024 AST [Catalytic activity/Vol] 14 U/L Normal 13-39 [facility] Comment on above: Performed By: #### C BC, MG, PHOS, CMP #### [address] Automated basophil %Ordered By: Elder Iyer on 03-24-2024 Basophils/100 WBC (Bld) 0.5 % Normal . [facility] Comment on above: Performed By: #### C BC, MG, PHOS, CMP #### [address] Automated basophil countOrde red By: Elder Iyer on 03-24-2024 Basophils (Bld) [#/Vol] 0.1 10*3/uL Normal 0.0-0.2 [facility] Comment on above: Result Comment: PERF ORMED BY: [place] [address] PATHOLOGIST [employer]TONHOLE MARKER MARLYN MCKEON M.D. Performed By: #### C BC, MG, PHOS, CMP #### [address] Automated blood monocyte cou ntOrdered By: Elder Iyer on 03-24-2024 Monocytes (Bld) [#/Vol] 1.5 10*3/uL High 0.0-0.8 [facility] Comment on above: Performed By: #### C BC, MG, PHOS, CMP #### [address] Automated eosinophil %Ordere d By: Elder Iyer on 03-24-2024 Eosinophils/100 WBC (Bld) 0.6 % Normal . [facility] Comment on above: Performed By: #### C BC, MG, PHOS, CMP #### [address] Automated eosinophil countOr dered By: Elder Iyer on 03-24-2024 Eosinophils (Bld) [#/Vol] 0.1 10*3/uL Normal 0.0-0.45 [facility] Comment on above: Performed By: #### C BC, MG, PHOS, CMP #### [address] Automated monocyte %Ordered By: Elder Iyer on 03-24-2024 Monocytes/100 WBC (Bld) 8.3 % Normal . [facility] Comment on above: Performed By: #### C BC, MG, PHOS, CMP #### [address] Automated neutrophil %Ordere d By: Elder Iyer on 03-24-2024 Neutrophils/100 WBC (Bld) 57.7 % Normal . [facility] Comment on above: Performed By: #### C BC, MG, PHOS, CMP #### [address] Bilirubin.total [Mass/volume ] in Serum or PlasmaOrdered By: Elder Iyer on 03-24-2024 Bilirubin [Mass/Vol] 0.8 mg/dL Normal 0.3-1.0 [facility] Comment on above: Performed By: #### C BC, MG, PHOS, CMP #### [address] Calcium [Mass/volume] in Ser um or PlasmaOrdered By: Elder Iyer on 03-24-2024 Calcium [Mass/Vol] 8.8 mg/dL Normal 8.6-10.3 [facility] Comment on above: Performed By: #### C BC, MG, PHOS, CMP #### [place] [id number] [place] Carbon dioxide, total [Moles /volume] in Serum or PlasmaOrdered By: Elder Iyer on 03-24-2024 CO2 [Moles/Vol] 28.6 mmol/L Normal 21.0-31.0 [facility] Comment on above: Performed By: #### C BC, MG, PHOS, CMP #### [address] Chloride [Moles/volume] in S vandana or PlasmaOrdered By: Elder Iyer on 03-24-2024 Chloride [Moles/Vol] 101 mmol/L Normal 98-107 [facility] Comment on above: Performed By: #### C BC, MG, PHOS, CMP #### [address] Complete Blood Count Auto Di ffon 03-24-2024 Mean Corpuscular HGB Conc 33.3 g/dL Normal 32.5-35.6 [facility] Comment on above: Performed By: #### C BC, MG, PHOS, CMP #### [address] NRBC% 0.2 /100{WBC} Normal 0-0.5 [facility] Comment on above: Performed By: #### C BC, MG, PHOS, CMP #### [address] Comprehensive Metabolic Pane rayshawn 03-24-2024 Albumin [Mass/Vol] 4.1 g/dL Normal 3.5-5.7 [facility] Comment on above: Performed By: #### C BC, MG, PHOS, CMP #### [place] [address] [place] Creatinine Clr Calc Pharmacy 164.23 Normal [facility] Comment on above: Performed By: #### C BC, MG, PHOS, CMP #### [address] GFR/1.73 sq M.predicted MDRD (S/P/Bld) [Vol rate/Area] mL/min/{1.73_m2} Normal [facility] Comment on above: Performed By: #### C BC, MG, PHOS, CMP #### [address] Creatinine [Mass/volume] in Serum or PlasmaOrdered By: Elder Iyer on 03-24-2024 Creatinine [Mass/Vol] 0.88 mg/dL Normal 0.70-1.30 [facility] Comment on above: Performed By: #### C BC, MG, PHOS, CMP #### [address] Erythrocyte distribution wid th [Ratio] by Automated countOrdered By: Elder Iyer on 03-24-2024 Erythrocyte distribution width (RBC) [Ratio] 13.8 % Normal 12.0-14.8 [facility] Comment on above: Performed By: #### C BC, MG, PHOS, CMP #### [address] Erythrocytes [#/volume] in B lood by Automated countOrdered By: Elder Iyer on 03-24-2024 RBC (Bld) [#/Vol] 5.07 10*6/uL Normal 3.90-5.60 [facility] Comment on above: Performed By: #### C BC, MG, PHOS, CMP #### [address] Glucose Poct Glucometerson 0 03-24-2024 Glucose [Mass/Vol] 162 mg/dL Normal [facility] Comment on above: Result Comment: [facility] Glucose Reference Range is dependent on time and content of last meal. Glucose of more than 200 mg/dL in a nonstressed, ambulatory subject supports the diagnosis of Diabetes Mellitus. PERFORMED BY: [place] [address] PATHOLOGIST BUTTONHOLE MARKER MARLYN MCKEON M.D. Performed By: #### C BC, MG, PHOS, CMP #### [address] Commemt1 Glu2: Cleaned Meter Normal [facility] Comment on above: Result Comment: PERF ORMED BY: [place] [address] PATHOLOGIST BUTTONHOLE MARKER MARLYN MCKEON M.D. Performed By: #### G LULS #### Point of Care testing , Glucose [Mass/Vol] 114 mg/dL Normal [facility] Comment on above: Result Comment: [place] Glucose Reference Range is dependent on time and content of last meal. Glucose of more than 200 mg/dL in a nonstressed, ambulatory subject supports the diagnosis of Diabetes Mellitus. Performed By: #### G LULS #### Point of Care testing , Commemt1 Glu2: Cleaned Meter Normal [facility] Comment on above: Result Comment: PERF ORMED BY: [place] [address] PATHOLOGIST BUTTONHOLE MARKER MARLYN MCKEON M.D. Performed By: #### B MP, MG, CBC #### [facility] [address] [place] [address] [place] Glucose [Mass/Vol] 126 mg/dL Normal [facility] Comment on above: Result Comment: [place] Glucose Reference Range is dependent on time and content of last meal. Glucose of more than 200 mg/dL in a nonstressed, ambulatory subject supports the diagnosis of Diabetes Mellitus. Performed By: #### B MP, MG, CBC #### [facility] [address] [place] [address] [place] Glucose [Mass/Vol] 128 mg/dL Normal [facility] Comment on above: Result Comment: [place] Glucose Reference Range is dependent on time and content of last meal. Glucose of more than 200 mg/dL in a nonstressed, ambulatory subject supports the diagnosis of Diabetes Mellitus. PERFORMED BY: [place] [address] PATHOLOGIST BUTTONHOLE MARKER MARLYN MCKEON M.D. Performed By: #### G LULS #### Point of Care testing , Glucose [Mass/Vol] 125 mg/dL Normal [facility] Comment on above: Result Comment: [place] Glucose Reference Range is dependent on time and content of last meal. Glucose of more than 200 mg/dL in a nonstressed, ambulatory subject supports the diagnosis of Diabetes Mellitus. PERFORMED BY: [place] [address] PATHOLOGIST BUTTONHOLE MARKER MARLYN MCKEON M.D. Performed By: #### G MARGARITA #### Point of Care testing , Glucose [Mass/volume] in Ser um or PlasmaOrdered By: Elder Iyer on 03-24-2024 Glucose [Mass/Vol] 136 mg/dL Significant change up 70-100 [facility] Comment on above: [place]: 241 on -[id number] recommended reference rangeRandom Glucose Reference Range is dependent on time and content of last meal. Glucose of more than 200 mg/dL in a nonstressed, ambulatory subject supports the diagnosis of Diabetes Mellitus. Result Comment: [place] Glucose Reference Range is dependent on time and content of last meal. Glucose of more than 200 mg/dL in a nonstressed, ambulatory subject supports the diagnosis of Diabetes Mellitus. ADA recommended reference range Performed By: #### C BC, MG, PHOS, CMP #### [facility] [address] [place] [address] Hematocrit [Volume Fraction] of Blood by Automated countOrdered By: Elder Iyer on 03-24-2024 Hematocrit (Bld) [Volume fraction] 44.7 % Normal 38.8-50.0 [facility] Comment on above: Performed By: #### C BC, MG, PHOS, CMP #### [facility] [address] [place] [address] Hemoglobin [Mass/volume] in BloodOrdered By: Elder Iyer on 03-24-2024 Hemoglobin (Bld) [Mass/Vol] 14.9 g/dL Normal 13.0-17.0 [facility] Comment on above: Performed By: #### C BC, MG, PHOS, CMP #### [facility] [address] [place] [address] Leukocytes [#/volume] correc elizabeth for nucleated erythrocytes in Blood by Automated counOrdered By: Elder Iyer on 03-24-2024 WBC corrected for nucl RBC Auto (Bld) [#/Vol] 18.2 10*3/uL High 4.1-10.5 [facility] Leukocytes [#/volume] in Blo od by Automated countOrdered By: Elder Iyer on 03-24-2024 WBC (Bld) [#/Vol] 18.2 10*3/uL High 4.1-10.5 [facility] Comment on above: Performed By: #### C BC, MG, PHOS, CMP #### [facility] [address] Lymphocytes [#/volume] in Bl ood by Automated countOrdered By: Elder Iyer on 03-24-2024 Lymphocytes (Bld) [#/Vol] 6.0 10*3/uL High 1.00-4.8 [facility] Comment on above: Performed By: #### C BC, MG, PHOS, CMP #### [facility] [address] [place] [address] [place] Lymphocytes/100 leukocytes i n Blood by Automated countOrdered By: Elder Iyer on 03-24-2024 Lymphocytes/100 WBC (Bld) 32.9 % Normal . [facility] Comment on above: Performed By: #### C BC, MG, PHOS, CMP #### [facility] [address] MCH [Entitic mass] by Automa elizabeth countOrdered By: Elder Iyer on 03-24-2024 MCH (RBC) [Entitic mass] 29.3 pg Normal 27.5-35.2 [facility] Comment on above: Performed By: #### C BC, MG, PHOS, CMP #### [facility] [address] MCHC Auto (RBC) [Mass/Vol]Or dered By: Elder Iyer on 03-24-2024 MCHC (RBC) [Mass/Vol] 33.3 g/dL 32.5-35.6 [facility] MCV [Entitic volume] by Auto mated countOrdered By: Elder Iyer on 03-24-2024 MCV (RBC) [Entitic vol] 88.2 fL Normal 83.5-101 [facility] Comment on above: Performed By: #### C BC, MG, PHOS, CMP #### [facility] [address] Magnesium [Mass/volume] in S vandana or PlasmaOrdered By: Elder Iyer on 03-24-2024 Magnesium [Mass/Vol] 2.1 mg/dL Normal 1.9-2.7 [facility] Comment on above: Result Comment: PERF ORMED BY: [place] [address] PATHOLOGIST [employer] MARLYN MCKEON M.D. Performed By: #### C BC, MG, PHOS, CMP #### [facility] [address] [place] [address] Neutrophils [#/volume] in Bl ood by Automated countOrdered By: Elder Iyer on 03-24-2024 Neutrophils (Bld) [#/Vol] 10.5 10*3/uL High 1.8-7.7 [facility] Comment on above: Performed By: #### C BC, MG, PHOS, CMP #### [facility] [address] [place] [address] No Panel InformationOrdered By: Elder Iyer on 03-24-2024 Bedside Glucose Comment Glu2: cleaned meter [facility] Estimated GFR (CKD-EPI) > 60.0 mL/Min [facility] Creatinine Clearance (Chem 164.23 [facility] Nucleated erythrocytes [Pres ence] in Blood by Automated countOrdered By: Elder Iyer on 03-24-2024 Nucleated RBC Auto Ql (Bld) 0.2 /100{WBC} 0-0.5 [facility] Phosphate [Mass/volume] in S vandana or PlasmaOrdered By: Elder Iyer on 03-24-2024 Phosphate [Mass/Vol] 4.2 mg/dL Normal 2.5-4.5 [facility] Comment on above: Performed By: #### C BC, MG, PHOS, CMP #### [facility] [address] Platelet mean volume [Entiti c volume] in Blood by Automated countOrdered By: Elder Iyer on 03-24-2024 Platelet mean volume (Bld) [Entitic vol] 7.6 fL Normal 6.6-10.1 [facility] Comment on above: Performed By: #### C BC, MG, PHOS, CMP #### [facility] [address] [place] [address] Platelets [#/volume] in Bloo d by Automated countOrdered By: Elder Iyer on 03-24-2024 Platelets (Bld) [#/Vol] 364 10*3/uL Normal 150-450 [facility] Comment on above: Performed By: #### C BC, MG, PHOS, CMP #### [address] Potassium [Moles/volume] in Serum or PlasmaOrdered By: Elder Iyer on 03-24-2024 Potassium [Moles/Vol] 3.9 mmol/L Normal 3.5-5.1 [facility] Comment on above: Performed By: #### C BC, MG, PHOS, CMP #### [address] Protein [Mass/volume] in Ser um or PlasmaOrdered By: Elder Iyer on 03-24-2024 Protein [Mass/Vol] 6.5 g/dL Normal 6.4-8.9 [facility] Comment on above: Performed By: #### C BC, MG, PHOS, CMP #### [facility] [address] [place] [address] Serum globulin measurement b y calculation (mass/volume)Ordered By: Elder Iyer on 03-24-2024 Globulin (S) [Mass/Vol] 2.4 g/dL Normal [facility] Comment on above: Performed By: #### C BC, MG, PHOS, CMP #### [facility] [address] [place] [address] Serum or plasma albumin/glob ulin mass ratioOrdered By: Elder Iyer on 03-24-2024 Albumin/Globulin [Mass ratio] 1.7 {ratio} Normal [facility] Comment on above: Performed By: #### C BC, MG, PHOS, CMP #### [facility] [address] [place] [address] Serum or plasma anion gap de terminationOrdered By: Elder Iyer on 03-24-2024 Anion gap [Moles/Vol] 12.3 mmol/L Normal 6.0-15.0 [facility] Comment on above: Performed By: #### C BC, MG, PHOS, CMP #### [facility] [address] [place] [address] Sodium [Moles/volume] in Ser um or PlasmaOrdered By: Elder Iyer on 03-24-2024 Sodium [Moles/Vol] 138 mmol/L Significant change down 136-145 [facility] Comment on above: Delta: 132 on Performed By: #### C BC, MG, PHOS, CMP #### [facility] [address] [place] [address] Urea nitrogen [Mass/volume] in Serum or PlasmaOrdered By: Elder Iyer on 03-24-2024 Urea nitrogen [Mass/Vol] 25 mg/dL Normal 7-25 [facility] Comment on above: Performed By: #### C BC, MG, PHOS, CMP #### [facility] [address] [place] [address] A1C with Estimated Average G maryann 03-23-2024 Glucose [Mass/Vol] 166 mg/dL Normal [facility] Comment on above: Result Comment: PERF ORMED BY: [place] [address] PATHOLOGIST [employer] MARLYN MCKEON M.D. Performed By: #### G LULS #### Point of Care testing , BNP ser/plasOrdered By: Veronika Gonzales on 03-23-2024 Natriuretic peptide B (Bld) [Mass/Vol] 27.0 pg/mL Normal 5-100 [facility] Comment on above: Result Comment: PERF ORMED BY: [place] [address] PATHOLOGIST [employer] MARLYN MCKEON M.D. Performed By: #### C BC, MG, PHOS, CMP #### [facility] [address] Basic Metabolic Panelon 07- Anion gap [Moles/Vol] 16.0 mmol/L High 6.0-15.0 [facility] Comment on above: Performed By: #### G LULS #### Point of Care testing , Calcium [Mass/Vol] 9.2 mg/dL Normal 8.6-10.3 [facility] Comment on above: Performed By: #### G LULS #### Point of Care testing , Chloride [Moles/Vol] 97 mmol/L Low 98-107 [facility] Comment on above: Performed By: #### G LULS #### Point of Care testing , CO2 [Moles/Vol] 23.4 mmol/L Normal 21.0-31.0 [facility] Comment on above: Performed By: #### G LULS #### Point of Care testing , Creatinine [Mass/Vol] 0.75 mg/dL Normal 0.70-1.30 [facility] Comment on above: Performed By: #### G LULS #### Point of Care testing , Creatinine Clr Calc Pharmacy 195.42 Normal [facility] Comment on above: Performed By: #### G LULS #### Point of Care testing , GFR/1.73 sq M.predicted MDRD (S/P/Bld) [Vol rate/Area] mL/min/{1.73_m2} Normal [facility] Comment on above: Performed By: #### G LULS #### Point of Care testing , Glucose [Mass/Vol] 241 mg/dL Significant change up 70-100 [facility] Comment on above: Result Comment: [place] om Glucose Reference Range is dependent on time and content of last meal. Glucose of more than 200 mg/dL in a nonstressed, ambulatory subject supports the diagnosis of Diabetes Mellitus. ADA recommended reference range Performed By: #### G LULS #### Point of Care testing , Potassium [Moles/Vol] 4.4 mmol/L Normal 3.5-5.1 [facility] Comment on above: Performed By: #### G LULS #### Point of Care testing , Sodium [Moles/Vol] 132 mmol/L Low 136-145 [facility] Comment on above: Performed By: #### G LULS #### Point of Care testing , Urea nitrogen [Mass/Vol] 22 mg/dL Normal 7-25 [facility] Comment on above: Performed By: #### G LULS #### Point of Care testing , Anion gap [Moles/Vol] 17.4 mmol/L High 6.0-15.0 [facility] Comment on above: Performed By: #### C BC, MG, PHOS, CMP #### [facility] [address] [place] [address] [place] Calcium [Mass/Vol] 9.4 mg/dL Normal 8.6-10.3 [facility] Comment on above: Performed By: #### C BC, MG, PHOS, CMP #### [facility] [address] [place] [address] [place] Chloride [Moles/Vol] 97 mmol/L Low 98-107 [facility] Comment on above: Performed By: #### C BC, MG, PHOS, CMP #### [facility] [address] [place] [id number] [place] CO2 [Moles/Vol] 23.2 mmol/L Normal 21.0-31.0 [facility] Comment on above: Performed By: #### C BC, MG, PHOS, CMP #### [facility] [address] [place] [id number] [place] Creatinine [Mass/Vol] 0.82 mg/dL Normal 0.70-1.30 [facility] Comment on above: Performed By: #### C BC, MG, PHOS, CMP #### [facility] [address] [place] [id number] [place] Creatinine Clr Calc Pharmacy 178.94 Normal [facility] Comment on above: Result Comment: PERF ORMED BY: [place] [address] PATHOLOGIST [employer] MARLYN MCKEON M.D. Performed By: #### C BC, MG, PHOS, CMP #### [place] [address] [place] GFR/1.73 sq M.predicted MDRD (S/P/Bld) [Vol rate/Area] mL/min/{1.73_m2} Normal [facility] Comment on above: Performed By: #### C BC, MG, PHOS, CMP #### [address] Glucose [Mass/Vol] 342 mg/dL High 70-100 [facility] Comment on above: Result Comment: [place] Glucose Reference Range is dependent on time and content of last meal. Glucose of more than 200 mg/dL in a nonstressed, ambulatory subject supports the diagnosis of Diabetes Mellitus. ADA recommended reference range Performed By: #### C BC, MG, PHOS, CMP #### [address] Potassium [Moles/Vol] 4.6 mmol/L Normal 3.5-5.1 [facility] Comment on above: Performed By: #### C BC, MG, PHOS, CMP #### [place] [address] [place] Sodium [Moles/Vol] 133 mmol/L Low 136-145 [facility] Comment on above: Performed By: #### C BC, MG, PHOS, CMP #### [place] [address] [place] Urea nitrogen [Mass/Vol] 23 mg/dL Normal 7-25 [facility] Comment on above: Performed By: #### C BC, MG, PHOS, CMP #### [address] Borrelia burgdorferi IgG+IgM Ab [Presence] in Serum by ImmunoassayOrdered By: Danial Horan on 03-23-2024 B. burgdorferi IgG+IgM IA Ql (S) Negative Negative [facility] Comment on above: Lyme antibodies not detected. Reflex testing is notindicated.No laboratory evidence of infection with B. burgdorferi(Lyme disease). Negative results may occur in patientsrecently infected (less than or equal to 14 days) with B.burgdorferi. If recent infection is suspected, repeattesting on a new sample collected in 7 to 14 days isrecommended.Performed at: - [facility] [id number] Director: Gabriel Chan PhD, Phone: [phone] C reactive protein [Mass/vol ume] in Serum or PlasmaOrdered By: Danial Horan on 03-23-2024 CRP [Mass/Vol] < 0.5 mg/dL 0.0-0.5 [facility] C-Reactive Proteinon 024 CRP [Mass/Vol] mg/L Normal 0.0-0.5 [facility] Comment on above: Result Comment: PERF ORMED BY: [place] [address] PATHOLOGIST [employer] MARLYN MCKEON M.D. Performed By: #### G LULS #### Point of Care testing , Complete Blood Count Auto Di ffon 03-23-2024 Basophils (Bld) [#/Vol] 0.1 10*3/uL Normal 0.0-0.2 [facility] Comment on above: Result Comment: PERF ORMED BY: [place] [address] PATHOLOGIST [employer] MARLYN MCKEON M.D. Performed By: #### C BC, MG, PHOS, CMP #### [facility] [address] [place] [address] [place] Basophils/100 WBC (Bld) 0.5 % Normal . [facility] Comment on above: Performed By: #### C BC, MG, PHOS, CMP #### [facility] [address] [place] [address] [place] Eosinophils (Bld) [#/Vol] 0.0 10*3/uL Normal 0.0-0.45 [facility] Comment on above: Performed By: #### C BC, MG, PHOS, CMP #### [address] Eosinophils/100 WBC (Bld) 0.0 % Normal . [facility] Comment on above: Performed By: #### C BC, MG, PHOS, CMP #### [address] Erythrocyte distribution width (RBC) [Ratio] 13.9 % Normal 12.0-14.8 [facility] Comment on above: Performed By: #### C BC, MG, PHOS, CMP #### [address] Hematocrit (Bld) [Volume fraction] 47.0 % Normal 38.8-50.0 [facility] Comment on above: Performed By: #### C BC, MG, PHOS, CMP #### [address] Hemoglobin (Bld) [Mass/Vol] 15.9 g/dL Normal 13.0-17.0 [facility] Comment on above: Performed By: #### C BC, MG, PHOS, CMP #### [address] Lymphocytes (Bld) [#/Vol] 1.4 10*3/uL Normal 1.00-4.8 [facility] Comment on above: Performed By: #### C BC, MG, PHOS, CMP #### [address] Lymphocytes/100 WBC (Bld) 8.2 % Normal . [facility] Comment on above: Performed By: #### C BC, MG, PHOS, CMP #### [address] MCH (RBC) [Entitic mass] 29.8 pg Normal 27.5-35.2 [facility] Comment on above: Performed By: #### C BC, MG, PHOS, CMP #### [address] [place] [address] [place] MCV (RBC) [Entitic vol] 88.1 fL Normal 83.5-101 [facility] Comment on above: Performed By: #### C BC, MG, PHOS, CMP #### [address] Mean Corpuscular HGB Conc 33.8 g/dL Normal 32.5-35.6 [facility] Comment on above: Performed By: #### C BC, MG, PHOS, CMP #### [address] Monocyte Distribution Width Not performed Normal 0.00-20.00 [facility] Comment on above: Result Comment: Unab le to calculate MDW because the Absolute Monocyte Count is <0.8. Performed By: #### C BC, MG, PHOS, CMP #### [address] Monocytes (Bld) [#/Vol] 0.2 10*3/uL Normal 0.0-0.8 [facility] Comment on above: Performed By: #### C BC, MG, PHOS, CMP #### [address] Monocytes/100 WBC (Bld) 1.0 % Normal . [facility] Comment on above: Performed By: #### C BC, MG, PHOS, CMP #### [address] Neutrophils (Bld) [#/Vol] 15.5 10*3/uL High 1.8-7.7 [facility] Comment on above: Performed By: #### C BC, MG, PHOS, CMP #### [address] Neutrophils/100 WBC (Bld) 90.3 % Normal . [facility] Comment on above: Performed By: #### C BC, MG, PHOS, CMP #### [address] NRBC% 0.1 /100{WBC} Normal 0-0.5 [facility] Comment on above: Performed By: #### C BC, MG, PHOS, CMP #### [address] Platelet mean volume (Bld) [Entitic vol] 7.4 fL Normal 6.6-10.1 [facility] Comment on above: Performed By: #### C BC, MG, PHOS, CMP #### [address] Platelets (Bld) [#/Vol] 381 10*3/uL Normal 150-450 [facility] Comment on above: Performed By: #### C BC, MG, PHOS, CMP #### [address] RBC (Bld) [#/Vol] 5.33 10*6/uL Normal 3.90-5.60 [facility] Comment on above: Performed By: #### C BC, MG, PHOS, CMP #### [address] WBC (Bld) [#/Vol] 17.1 10*3/uL High 4.1-10.5 [facility] Comment on above: Performed By: #### C BC, MG, PHOS, CMP #### [address] Creatine Kinaseon 03-23-2024 CK [Catalytic activity/Vol] 37 U/L Normal 30-223 [facility] Comment on above: Performed By: #### C BC, MG, PHOS, CMP #### [address] Creatine kinase [Enzymatic a ctivity/volume] in Serum or PlasmaOrdered By: Danial Horan on 03-23-2024 CK [Catalytic activity/Vol] 34 U/L Normal 30-223 [facility] Comment on above: Result Comment: PERF ORMED BY: [place] [address] PATHOLOGIST [employer] MARLYN MCKEON M.D. Performed By: #### G LULS #### Point of Care testing , ECG 12 lead ECGon 03-23-2024 ECG 12 lead ECG [facility] Main [address] [address] Electrocardiograph Report Signed Patient: Bhumika Umana JR MR#: [id number] : 1975 Acct:[id number] Age/Sex: 48 / M ADM Date: 03/23/24 Loc: ER Room: Type: [facility] ER Attending Dr: Ordering Provider: Gale Gonzales MD Date of Service: 03/23/24 ECG/ECG 12 lead ECG: Weakness Copies to: Test Reason : Blood Pressure : 148/72 mmHG Vent. Rate : 70 BPM Atrial Rate : 70 BPM P-R Int : 128 ms QRS Dur : 102 ms QT Int : 416 ms P-R-T Axes : 70 56 54 degrees QTcB Int : 449 ms Normal sinus rhythm No previous ECGs available Confirmed by Gale Gonzales MD ([id number]) on 03/23/2024 2:06:14 AM Referred By: Electronically Signed By: Gale Gonzales MD Transcribed By: MUS Signed By Gale Gonzales MD 02/26 03/20 0206 Normal [facility] Erythrocyte Sedimentation Ra devaughn 03-23-2024 ESR (Bld) [Velocity] 14 mm/h Normal 0-14 [facility] Comment on above: Result Comment: PERF ORMED BY: [place] [address] PATHOLOGIST [employer] MARLYN MCKEON M.D. Performed By: #### G LULS #### Point of Care testing , Erythrocyte sedimentation ra te by Photometric methodOrdered By: Danial Horan on 03-23-2024 ESR Photometric method (Bld) [Velocity] 14 mm/hr 0-14 [facility] Folate [Mass/volume] in Seru m or PlasmaOrdered By: Bola Garcia on 03-23-2024 Folate [Mass/Vol] 13.0 ng/mL >5.9 [facility] Comment on above: Folate reference ran ge: >5.9 ng/mlThe WHO technical consultation on folate and vitamin [id number] has determined that folate concentrations lessthan 4 ng/ml are considered deficient. Glucose Poct Glucometerson 0 03-23-2024 Commemt1 Glu2: Cleaned Meter Normal [facility] Comment on above: Result Comment: PERF ORMED BY: [place] [address] PATHOLOGIST [employer] MARLYN MCKEON M.D. Performed By: #### C BC, MG, PHOS, CMP #### [address] Glucose [Mass/Vol] 166 mg/dL Normal [facility] Comment on above: Result Comment: [place] om Glucose Reference Range is dependent on time and content of last meal. Glucose of more than 200 mg/dL in a nonstressed, ambulatory subject supports the diagnosis of Diabetes Mellitus. Performed By: #### C BC, MG, PHOS, CMP #### [facility] [address] [place] [address] Glucose [Mass/Vol] 133 mg/dL Normal [facility] Comment on above: Result Comment: [place] om Glucose Reference Range is dependent on time and content of last meal. Glucose of more than 200 mg/dL in a nonstressed, ambulatory subject supports the diagnosis of Diabetes Mellitus. PERFORMED BY: [place] [address] PATHOLOGIST [employer] MARLYN MCKEON M.D. Performed By: #### G LULS #### Point of Care testing , Glucose [Mass/Vol] 180 mg/dL Normal [facility] Comment on above: Result Comment: [place] om Glucose Reference Range is dependent on time and content of last meal. Glucose of more than 200 mg/dL in a nonstressed, ambulatory subject supports the diagnosis of Diabetes Mellitus. PERFORMED BY: [place] [address] PATHOLOGIST [employer] MARLYN MCKEON M.D. Performed By: #### G LULS #### Point of Care testing , Glucose [Mass/Vol] 216 mg/dL Normal [facility] Comment on above: Result Comment: [place] om Glucose Reference Range is dependent on time and content of last meal. Glucose of more than 200 mg/dL in a nonstressed, ambulatory subject supports the diagnosis of Diabetes Mellitus. PERFORMED BY: [place] [address] PATHOLOGIST [employer] MARLYN MCKEON M.D. Performed By: #### G LULS #### Point of Care testing , Commemt1 Glu2: Cleaned Meter Normal [facility] Comment on above: Result Comment: PERF ORMED BY: [place] [address] PATHOLOGIST [employer] MARLYN MCKEON M.D. Performed By: #### C BC, MG, PHOS, CMP #### [facility] [address] [place], [place] [id number] [facility] Glucose [Mass/Vol] 362 mg/dL Normal [facility] Comment on above: Result Comment: [facility] Glucose Reference Range is dependent on time and content of last meal. Glucose of more than 200 mg/dL in a nonstressed, ambulatory subject supports the diagnosis of Diabetes Mellitus. Performed By: #### C BC, MG, PHOS, CMP #### [facility] [address] [place] [address] Glucose mean value [Mass/vol ume] in Blood Estimated from glycated hemoglobinOrdered By: Bola Garcia on 03-23-2024 Average glucose Estimated from glycated hemoglobin (Bld) [Mass/Vol] 166 mg/dL [facility] Hemoglobin A1c percentageOrd ered By: Bola Garcia on 03-23-2024 HbA1c (Bld) [Mass fraction] 7.4 % High 4.3-5.6 [facility] Comment on above: Increased risk for d iabetes: 5.7 - 6.4diabetes: >6.4glycemic control for adults with diabetes: <7.0 Result Comment: Incr eased risk for diabetes: 5.7 - 6.4 diabetes: >6.4 glycemic control for adults with diabetes: <7.0 Performed By: #### G LULS #### Point of Care testing , Lyme, Total Ab with Reflexon 03-23-2024 Lyme Total Antibody Negative Normal Negative [facility] Comment on above: Result Comment: Lyme antibodies not detected. Reflex testing is not indicated. No laboratory evidence of infection with B. burgdorferi (Lyme disease). Negative results may occur in patients recently infected (less than or equal to 14 days) with B. burgdorferi. If recent infection is suspected, repeat testing on a new sample collected in 7 to 14 days is recommended. Performed at: - [address] [id number] [employer] Fac[employer] Manager: Gabriel Chan PhD, Phone: [phone] PERFORMED BY: [place] [address] PATHOLOGIST [employer] MARLYN MCKEON M.D. Performed By: #### G LULS #### Point of Care testing , MR head/brain wo/w conon MR head/brain wo/w con [facility] Main [place] [address] [place] [address] MRI Report Signed Patient: Bhumika Umana JR MR#: [id number] : 1975 Acct:[id number] Age/Sex: 48 / M ADM Date: 03/23/24 Loc: Room: [address] [place] [address] Type: ADM IN Attending Dr: Elder Iyer MD Copies to: DO Elder Watson MD Ordering Provider: Bola Garcia DO Date of Service: 03/23/24 MR/MR head/brain wo/w con: weakness of both arms MRI of the brain with and without IV contrast. Reason for exam: Bilateral hand weakness for 2 days. COMPARISON: None. TECHNIQUE: Multisequence, multiplanar imaging of the brain was performed with and without IV contrast. FINDINGS: No evidence of restricted diffusion is an diffusion-weighted imaging. No evidence of blood products are seen on T2 Star imaging. Focal areas of abnormal signal are seen on the T2 and T2 FLAIR imaging within the white matter. Midbrain, brendan, medulla and cerebellum all appear unremarkable. Intraorbital contents appear unremarkable. Visualized paranasal sinuses are clear. Midline structures appear unremarkable. Postcontrast imaging demonstrates no abnormal enhancement. MR/MR head/brain wo/w con Impression: No acute process. No abnormal enhancement. Focal areas of abnormal signal are seen on the T2 and T2 FLAIR imaging within the white matter. Given the patient's age, this finding is nonspecific and a demyelinating process cannot BE excluded. Impression dictated by: Rene Gonzales Jr., D.OKim03/23/2024 10:46 AM Dictation Location: [place] [address] Transcribed By: [facility] 03/23/24 1046 Dictated By: Rene Gonzales Jr, DO 03/23/24 1039 Signed By: 03/23/24 1046 Normal [facility] Monocyte distribution width [Entitic volume] in Blood by AutomatedOrdered By: Gale Gonzales on 03-23-2024 Monocyte distribution width Auto (Bld) [Entitic vol] Test not performed % 0.00-20.00 [facility] Comment on above: Unable to calculate MDW because the Absolute Monocyte Count is <0.8. Partial Thromboplastin Timeo n 03-23-2024 aPTT Coag (Bld) [Time] 22.2 s Low 25.1-36.5 [facility] Comment on above: Result Comment: A he matocrit value greater than 55% may lead to inaccurate results in coagulation testing. Patients having hematocrit values >55% require a special collection tube for coagulation studies. Please contact the laboratory at [phone] for redraw instructions. PERFORMED BY: [address] [address] PATHOLOGIST [employer] MARLYN MCKEON M.D. Performed By: #### C BC, MG, PHOS, CMP #### [place] [id number] [facility] Prothrombin Time INRon 03-23 INR Coag (PPP) [Relative time] 1.0 {INR} Normal [facility] Comment on above: Result Comment: INR Therapeutic Range A) Pre- and Peroperative OAT started two weeks before surgery. NOT HIP SURGERY: 1.5 - 2.5 HIP SURGERY: 2 - 3 B) Primary and secondary prevention of venous THROMBOSIS: 2 - 3 C) Active venous thrombosis, pulmonary embolism and prevention of recurrent venous thrombosis: 2 - 3 D) Prevention of arterial thromboembolism including patients with mechanical heart valves: 3 - 4.5 Performed By: #### C MG GARCIA PHOS, CMP #### [address] PT Coag (PPP) [Time] 11.7 s Normal 9.0-12.9 [facility] Comment on above: Result Comment: A he matocrit value greater than 55% may lead to inaccurate results in coagulation testing. Patients having hematocrit values >55% require a special collection tube for coagulation studies. Please contact the laboratory at [phone] for redraw instructions. Performed By: #### C MG GARCIA PHOS, CMP #### [address] Thyrotropin [Units/volume] i n Serum or PlasmaOrdered By: Bola Garcia on 03-23-2024 TSH Qn 0.48 m[IU]/L Normal 0.45-5.33 [facility] Comment on above: Performed By: #### G LULS #### Point of Care testing , Troponin I High Sensitivityo n 03-23-2024 Troponin I High Sensitivity 3.3 pg/mL Normal 0.0-20.0 [facility] Comment on above: Result Comment: PERF ORMED BY: [place] [address] PATHOLOGIST [employer] MARLYN MCKEON M.D. Performed By: #### C MG GARCIA PHOS, CMP #### [address] Troponin I.cardiac [Mass/vol ume] in Serum or Plasma by Detection limit <= 0.01 ng/Ordered By: Gale Gonzales on 03-23-2024 Troponin I.cardiac DL <= 0.01 ng/mL [Mass/Vol] 3.3 pg/mL 0.0-20.0 [facility] Vit. B12/Folate Profileon Folate 13.0 ng/mL Normal >5.9 [facility] Comment on above: Result Comment: Sarah te reference range: >5.9 ng/ml The WHO technical consultation on folate and vitamin b12 deficiencies has determined that folate concentrations less than 4 ng/ml are considered deficient. Performed By: #### G MARGARITA #### Point of Care testing , Vitamin B12 ser/plasOrdered By: Bola Garcia on 03-23-2024 Cobalamin (Vitamin B12) [Mass/Vol] 416 pg/mL Normal 180-914 [facility] Comment on above: Performed By: #### G LULS #### Point of Care testing , Vitamin D 25 Hydroxy Totalon 03-23-2024 Vitamin D 25 Hydroxy Total 21.6 ng/mL Low 30-100 [facility] Comment on above: Result Comment: KAYLEY MIN D STATUS 25(OH)VITAMIN D RANGE (ng/mL) Deficient <20 Insufficient 20 to <30 Sufficient 30 to 100 Reference: Kalee Anton, Brett SUAREZ, et al. Evaluation,treatment, and prevention of vitamin D deficiency; an Endocrine Society clinical practice guideline. JCEM. 2010; 96(7):1911-30. PERFORMED BY: [place] [address] PATHOLOGIST [employer] MARLYN MCKEON M.D. Performed By: #### G LULS #### Point of Care testing , Vitamin D+Metabolites [Mass/ volume] in Serum or PlasmaOrdered By: Bola Garcia on 03-23-2024 Vitamin D+Metabolites [Mass/Vol] 21.6 ng/mL Low 30-100 [facility] Comment on above: VITAMIN D STATUS 25( OH)VITAMIN D RANGE (ng/mL) Deficient <20 Insufficient 20 to <30Sufficient 30 to 100Reference: Kalee Anton, Brett SUAREZ, et al. Evaluation,treatment, and prevention of vitamin D deficiency; an Endocrine Society clinical practice guideline. JCEM. 2010; 96(7):1911-30. XR chest 2V*on 03-23-2024 XR chest 2V* [facility] [address] [place] [address] XRay Report Signed Patient: Bhumika Umana JR MR#: [id number] : 1975 Acct:[id number] Age/Sex: 48 / M ADM Date: 03/23/24 Loc: Room: [address] [place] [address] Type: ADM IN Attending Dr: Elder Iyer MD Copies to: MD Elder Huddleston MD Ordering Provider: Gale Gonzales MD Date of Service: 03/23/24 XR/XR chest 2V*: Weakness Chest 2 views CLINICAL HISTORY: Weakness in hand since December. COMPARISON: None FINDINGS: Heart normal size. Lungs are clear. No free air. XR/XR chest 2V* IMPRESSION: NO ACUTE CARDIOPULMONARY ABNORMALITY. Impression dictated by: Rene Gonzales Jr., D.O.03/23/2024 9:33 AM Dictation Location: [place] [address] Transcribed By: [facility] 03/23/24 0933 Dictated By: Rene Gonzales Jr, DO 03/23/24 0933 Signed By: 03/23/24 0933 Normal [facility] XR ELBOW RT MIN 3 VIEWSon XR [...] JAKOB MCGHEE Date: 2022-04-23 12:[address] [facility] CBC AUTO DIFFon 01-11-2022 BASO # 0.0 103/ul Normal 0.0-0.1 [facility] Comment on above: Performed By: #### C BC #### [facility] [address] [place] [address] [address] Sera Quach Basophils/100 WBC (Bld) 0.4 % Normal 0.2-2.0 [facility] Comment on above: Performed By: #### C BC #### [facility] [address] [place] [address] [address] Sera Quach EO # 0.3 103/ul Normal 0.0-0.[address] [facility] Comment on above: Performed By: #### C BC #### [facility] [address] [place] [address] Dr. Sera Quach Eosinophils/100 WBC (Bld) 2.8 % Normal 0.9-7.0 [facility] Comment on above: Performed By: #### C BC #### [facility] [address] [place] [address] Dr. Sera Quach Erythrocyte distribution width (RBC) [Ratio] 13.1 % Normal 11.0-15.0 [facility] Comment on above: Performed By: #### C BC #### [facility] [address] [place] [address] Dr. Sera Quach Hematocrit (Bld) [Volume fraction] 47.3 % Normal 42.0-54.0 [facility] Comment on above: Performed By: #### C BC #### [facility] [address] [place] [address] Dr. Sera Quach Hemoglobin (Bld) [Mass/Vol] 15.2 g/dL Normal 14.0-18.0 [facility] Comment on above: Performed By: #### C BC #### [facility] [address] [place] [address] Dr. Sera Quach IG # 0.03 10e3/ul Normal 0.00-0.03 [facility] Comment on above: Performed By: #### C BC #### [facility] [address] [place] [address] Dr. Sera Quach IG % 0.3 % Normal 0.0-0.[address] [facility] Comment on above: Performed By: #### C BC #### [facility] [address] [place] [address] Dr. Sera Quach LYMPH # 2.3 103/ul Normal 1.2-3.[address] [facility] Comment on above: Performed By: #### C BC #### [facility] [address] [place] [address] Dr. Sera Quach Lymphocytes/100 WBC (Bld) 25.5 % Normal 20.5-60.0 [facility] Comment on above: Performed By: #### C BC #### [facility] [address] [place] [address] Dr. Sera Quach MANUAL DIFF REQ NO Normal [facility] Comment on above: Performed By: #### C BC #### [facility] [address] [place] [address] Dr. Sera Quach MCH (RBC) [Entitic mass] 29.2 pg Normal 25.9-34.0 [facility] Comment on above: Performed By: #### C BC #### [facility] [address] [place] [address] Dr. Sera Quach MCHC (RBC) [Mass/Vol] 32.1 g/dL Normal 29.9-35.2 [facility] Comment on above: Performed By: #### C BC #### [facility] [address] [place] [address] Dr. Sera Quach MCV (RBC) [Entitic vol] 91.0 fL Normal 80.0-94.0 [facility] Comment on above: Performed By: #### C BC #### [facility] [address] [place] [address] Dr. Sera Quach MONO # 0.7 103/ul Normal 0.3-0.8 [facility] Comment on above: Performed By: #### C BC #### [facility] [address] [place] [address] Dr. Sera Quach Monocytes/100 WBC (Bld) 7.1 % Normal 1.7-12.0 [facility] Comment on above: Performed By: #### C BC #### [facility] [address] [place] [address] Dr. Sera Quach NEUT # 5.9 103/ul Normal 1.4-6.5 [facility] Comment on above: Performed By: #### C BC #### [facility] [address] [place] [address] Dr. Sera Quach Neutrophils/100 WBC (Bld) 63.9 % Normal 43.0-75.0 [facility] Comment on above: Performed By: #### C BC #### [facility] [address] [place] [address] Dr. Sera Quach Platelet mean volume (Bld) [Entitic vol] 9.3 fL Critically low 9.5-13.5 [facility] Comment on above: Performed By: #### C BC #### [facility] [address] [place] [address] [address] Sera Quach PLT 316 103/ul Normal 150-[address] [facility] Comment on above: Performed By: #### C BC #### [facility] [address] [place] [address] Dr. Sera Quach RBC 5.20 106/ul Normal 4.70-6.[address] [facility] Comment on above: Performed By: #### C BC #### [facility] [address] [place] [address] Dr. Sera Quach WBC 9.2 103/ul Normal 4.0-11.0 [facility] Comment on above: Performed By: #### C BC #### [facility] [address] [place] [address] Dr. Sera Quach GLYCOHEMOGLOBIN A1Con 2021 ADA RECOMMENDATION SEE BELOW Normal [facility] Comment on above: Result Comment: ADA RECOMMENDED LIMIT 4.0 - 6.0 ADA THERAPEUTIC TARGET < 7.0 ACTION SUGGESTED > 7.0 Performed By: #### A 1C #### [facility] [address] [place] [address] Dr. Sera Quach Glucose [Mass/Vol] 209 mg/dL Normal [facility] Comment on above: Performed By: #### A 1C #### [facility] [address] [place] [address] Dr. Sera Quach HbA1c (Bld) [Mass fraction] 8.9 % Critically high 4.5-6.2 [facility] Comment on above: Performed By: #### A 1C #### [facility] [address] [place] [address] Dr. Sera Quach LIPID PROFILEon 01-11-2022 CHOL-HDL RATIO NORM SEE BELOW Normal [facility] Comment on above: Result Comment: 3.3 - 4.4 LOW RISK 4.4 - 7.1 AVERAGE RISK 7.1 - 11.0 MODERATE RISK >11.0 HIGH RISK Performed By: #### C MP, LIPID #### [facility] [address] [address] [address] Sera Quach Cholesterol [Mass/Vol] 154 mg/dL Normal <=200 [facility] Comment on above: Performed By: #### C MP, LIPID #### [facility] [address] [address] [address] Sera Quach Cholesterol in HDL [Mass/Vol] 39 mg/dL Critically low 40-60 [facility] Comment on above: Performed By: #### C MP, LIPID #### [facility] [address] [place] [address] [address] Sera Quach Cholesterol in LDL [Mass/Vol] 98.0 mg/dL Normal [facility] Comment on above: Performed By: #### C MP, LIPID #### [facility] [address] [place] [address] [address] Sera Quach Cholesterol.total/Chol esterol in HDL [Mass ratio] 3.9 {ratio} Normal [facility] Comment on above: Performed By: #### C MP, LIPID #### [facility] [address] [place] [address] [address] Sera Quach HDL NORMAL > or = 60 mg/dl - LO W CARDIOVASCULAR RISK <40 mg/dl - HIGH CARDIOVASCULAR RISK Normal [facility] Comment on above: Performed By: #### C MP, LIPID #### [facility] [address] [place] [address] [address] Sera Quach LDL CALC NORMAL SEE BELOW Normal [facility] Comment on above: Result Comment: <100 mg/dl OPTIMAL 100 - 129 mg/dl NEAR OR ABOVE OPTIMAL 130 - 159 mg/dl BORDERLINE HIGH 160 - 189 mg/dl HIGH >190 mg/dl VERY HIGH Performed By: #### C MP, LIPID #### [facility] [address] [place] [address] [address] Sera Quach Triglyceride [Mass/Vol] 85 mg/dL Normal <=150 [facility] Comment on above: Performed By: #### C MP, LIPID #### [facility] [address] [place] [address] Dr. Sera Quach VLDL CALC 17.0 mg/dL Normal [facility] Comment on above: Performed By: #### C MP, LIPID #### [facility] [address] [place] [address] Dr. Sera Quach MICROALBUMIN, RAND URon 12-26 mALB 1.3 mg/L Normal <=30.0 [facility] Comment on above: Performed By: #### M ALBR #### [facility] [address] [place] [address] Dr. Sera Quach PROF 14(COMP METB)on 022 Albumin [Mass/Vol] 3.9 g/dL Normal 3.4-5.0 [facility] Comment on above: Performed By: #### C MP, LIPID #### [facility] [address] [place] [address] Dr. Sera Quach Albumin/Globulin [Mass ratio] 1.1 {ratio} Normal [facility] Comment on above: Performed By: #### C MP, LIPID #### [facility] [address] [place] [address] Dr. Sera Quach ALP [Catalytic activity/Vol] 76 U/L Normal 46-116 [facility] Comment on above: Performed By: #### C MP, LIPID #### [facility] [address] [place] [address] Dr. Sera Quach ALT [Catalytic activity/Vol] 64 U/L Critically high 16-[address] [facility] Comment on above: Performed By: #### C MP, LIPID #### [facility] [address] [place] [address] Dr. Sera Quach Anion gap [Moles/Vol] 12.7 mmol/L Normal [facility] Comment on above: Performed By: #### C MP, LIPID #### [facility] [address] [place] [address] Dr. Sera Quach AST [Catalytic activity/Vol] 37 U/L Normal 15-[address] [facility] Comment on above: Performed By: #### C MP, LIPID #### [facility] [address] [place] [address] Dr. Sera Quach Bilirubin [Mass/Vol] 0.6 mg/dL Normal 0.2-1.0 [facility] Comment on above: Performed By: #### C MP, LIPID #### [facility] [address] [place] [address] Dr. Sera Quach Calcium [Mass/Vol] 9.0 mg/dL Normal 8.5-10.1 [facility] Comment on above: Performed By: #### C MP, LIPID #### [facility] [address] [place] [address] Dr. Sera Quach Chloride [Moles/Vol] 101 mmol/L Normal 98-107 [facility] Comment on above: Performed By: #### C MP, LIPID #### [facility] [address] [place] [address] Dr. Sera Quach CO2 [Moles/Vol] 27.6 mmol/L Normal 21.0-32.0 [facility] Comment on above: Performed By: #### C MP, LIPID #### [facility] [address] [place] [address] Dr. Sera Quach Creatinine [Mass/Vol] 0.75 mg/dL Normal 0.70-1.30 [facility] Comment on above: Performed By: #### C MP, LIPID #### [facility] [address] [place] [address] Dr. Sera Quach EGFR-AF CAMEROONIAN >60 Normal >=[address] [facility] Comment on above: Performed By: #### C MP, LIPID #### [facility] [address] [place] [address] Dr. Sera Quach EGFR-NON AF CAMEROONIAN >60 Normal >=[address] [facility] Comment on above: Performed By: #### C MP, LIPID #### [facility] [address] [place] [address] Dr. Sera Quach Globulin (S) [Mass/Vol] 3.6 g/dL Normal [facility] Comment on above: Performed By: #### C MP, LIPID #### [facility] [address] [place] [address] Dr. Sera Quach Glucose [Mass/Vol] 184 mg/dL Critically high 74-106 [facility] Comment on above: Performed By: #### C MP, LIPID #### [facility] [address] [place] [address] Dr. Sera Quach Potassium [Moles/Vol] 4.3 mmol/L Normal 3.5-5.1 [facility] Comment on above: Performed By: #### C MP, LIPID #### [facility] [address] [place] [address] Dr. Sera Quach Protein [Mass/Vol] 7.5 g/dL Normal 6.4-8.2 [facility] Comment on above: Performed By: #### C MP, LIPID #### [facility] [address] [place] [address] Dr. Sera Quach Sodium [Moles/Vol] 137 mmol/L Normal 136-145 [facility] Comment on above: Performed By: #### C MP, LIPID #### [facility] [address] [place] [address] Dr. eSra Quach Urea nitrogen [Mass/Vol] 12.0 mg/dL Normal 7.0-18.0 [facility] Comment on above: Performed By: #### C MP, LIPID #### [facility] [address] [place] [address] Dr. Sera Quach Urea nitrogen/Creatinine [Mass ratio] 16.0 mg/mg Normal [facility] Comment on above: Performed By: #### C MP, LIPID #### [facility] [address] [place] [address] Dr. Sera Quach UA RANDOM W/MICROSCOPICon BACTERIA NONE SEEN Normal NONE SEEN [facility] Comment on above: Performed By: #### U AMIC #### [facility] [address] [place] [address] Dr. Sera Quach Bilirubin Ql (U) Negative Normal NEGATIVE [facility] Comment on above: Performed By: #### U AMIC #### [facility] [address] [place] [address] [address] Sera Quach CAST NONE SEEN Normal NONE SEEN [facility] Comment on above: Performed By: #### U AMIC #### [facility] [address] [place] [address] [address] Sera Quach Clarity (U) CLOUDY Abnormal CLEAR [facility] Comment on above: Performed By: #### U AMIC #### [facility] [address] [place] [address] [address] Sera Quach Color (U) YELLOW Normal YELLOW [facility] Comment on above: Performed By: #### U AMIC #### [facility] [address] [place] [address] [address] Sera Quach Crystals LM Nom (Urine sed) SEEN Abnormal NONE SEEN [facility] Comment on above: Performed By: #### U AMIC #### [facility] [address] [place] [address] [address] Sera Quach Epithelial cells LM Ql (Urine sed) RARE Normal NONE SEEN /RARE [facility] Comment on above: Performed By: #### U AMIC #### [facility] [address] [place] [address] [address] Sera Quach Glucose Ql (U) Negative Normal NEGATIVE [facility] Comment on above: Performed By: #### U AMIC #### [facility] [address] [place] [address] [address] Sera Quach Hemoglobin Ql (U) Negative Normal NEGATIVE [facility] Comment on above: Performed By: #### U AMIC #### [facility] [address] [place] [address] [address] Sera Quach Ketones Ql (U) Negative Normal NEGATIVE [facility] Comment on above: Performed By: #### U AMIC #### [facility] [address] [place] [address] [address] Sera Quach LEUKOCYTES Negative Normal NEGATIVE [facility] Comment on above: Performed By: #### U AMIC #### [facility] [address] [place] [address] [address] Sera Quach MUCOUS NONE SEEN Normal NONE SEEN [facility] Comment on above: Performed By: #### U AMIC #### [facility] [address] [place] [address] [address] Sera Quach Nitrite Ql (U) Negative Normal NEGATIVE [facility] Comment on above: Performed By: #### U AMIC #### [facility] [address] [place] [address] Dr. Sera Quach pH (U) 5.5 [pH] Normal 5-[address] [facility] Comment on above: Performed By: #### U AMIC #### [facility] [address] [place] [address] Dr. Sera Quach RBC NONE SEEN Abnormal 0-2 [facility] Comment on above: Performed By: #### U AMIC #### [facility] [address] [place] [address] Dr. Sera Quach SPEC GRAVITY 1.025 Normal 1.005-<=1. [address] [facility] Comment on above: Performed By: #### U AMIC #### [facility] [address] [place] [address] [address] Sera Quach UA PROTEIN Negative Normal NEGATIVE/ TRACE [facility] Comment on above: Performed By: #### U AMIC #### [facility] [address] [place] [address] Dr. Sera Quach Urobilinogen Qn (U) 1.0 {Jessika'U}/dL Normal 0.2 - 1. [address] [facility] Comment on above: Performed By: #### U AMIC #### [facility] [address] [place] [address] Dr. Sera Quach WBC 0-2 Abnormal NONE SEEN [facility] Comment on above: Performed By: #### U AMIC #### [facility] [address] [place] [address] Dr. Sera Quach GLYCOHEMOGLOBIN A1Con 2020 ADA RECOMMENDATION ADA THERAPEUTIC TARG ET 6.0 - 7.0 ACTION SUGGESTED > 7.0 Normal [facility] Comment on above: Performed By: #### A 1C #### [facility] [address] [place], [place] [address] Dania Ev Glucose [Mass/Vol] 174 mg/dL Normal [facility] Comment on above: Performed By: #### A 1C #### [facility] [address] [place], [place] [address] Dania Ev HbA1c (Bld) [Mass fraction] 7.7 % Critically high <=6.[address] [facility] Comment on above: Performed By: #### A 1C #### [facility] [address] [place] [address] Dania Ev PROF CHEM 8 (BAS METB)on Anion gap [Moles/Vol] 9.0 mmol/L Normal [facility] Comment on above: Performed By: #### B MP #### [facility] [address] [place], [place] [id number] Dania Ev Calcium [Mass/Vol] 8.8 mg/dL Normal 8.4-10.[address] [facility] Comment on above: Performed By: #### B MP #### [facility] [address] [place], [place] [id number] Dania Ev Chloride [Moles/Vol] 102 mmol/L Normal 98-[address] [facility] Comment on above: Performed By: #### B MP #### [facility] [address] [place], [place] [id number] Dania Ev CO2 [Moles/Vol] 29.1 mmol/L Normal 22.0-30.[address] [facility] Comment on above: Performed By: #### B MP #### [facility] [address] [place], [place] [id number] Dania Ev Creatinine [Mass/Vol] 0.73 mg/dL Normal 0.66-1.[address] [facility] Comment on above: Performed By: #### B MP #### [facility] [address] [place] [address] Dania Ev EGFR-AF CAMEROONIAN >60 Normal >=[address] [facility] Comment on above: Performed By: #### B MP #### [facility] [address], [place] [address] Dania Ev EGFR-NON AF CAMEROONIAN >60 Normal >=60 [facility] Comment on above: Performed By: #### B MP #### [facility] [address], [place] [address] Dnaia Ev Glucose [Mass/Vol] 141 mg/dL Critically high 74-106 [facility] Comment on above: Performed By: #### B MP #### [facility] [address] [place] [id number] Dania Ev Potassium [Moles/Vol] 4.1 mmol/L Normal 3.4-5.0 [facility] Comment on above: Performed By: #### B MP #### [facility] [address] [address] Dania Ev Sodium [Moles/Vol] 136 mmol/L Critically low 137-[address] [facility] Comment on above: Performed By: #### B MP #### [facility] [address] [id number] Dania Ev Urea nitrogen [Mass/Vol] 9.0 mg/dL Normal 9.0-20.0 [facility] Comment on above: Performed By: #### B MP #### [facility] [address] [id number] Dania Ev Urea nitrogen/Creatinine [Mass ratio] 12.3 mg/mg Normal [facility] Comment on above: Performed By: #### B MP #### [facility] [address] [place], [place] [address] Dania Ev Vital Signs Date Time Vital Sign Value Performing Clinician Facility 03-30-2024 12:00-0400 Body temperature 98 [degF] Cecy Hernandez Work Phone: [facility] 03-30-2024 12:00-0400 Diastolic blood pressure 88 mm[Hg] Cecy Hernandez Work Phone: [facility] 03-30-2024 12:00-0400 Heart rate 80 /min Cecy Hernandez Work Phone: [facility] 03-30-2024 12:00-0400 Respiratory rate 19 /min Cecy Aichholz Work Phone: [facility] 03-30-2024 12:00-0400 SaO2% (BldA) [Mass fraction] 95 % Cecy Aichholz Work Phone: [facility] 03-30-2024 12:00-0400 Systolic blood pressure 140 mm[Hg] Cecy Aichholz Work Phone: [facility] 03-30-2024 02:25-0400 Body height 190.5 cm Cecy Aichholz Work Phone: [facility] 03-30-2024 02:25-0400 Body weight 151.5 kg Cecy Aichholz Work Phone: [facility] 03-30-2024 02:03-0400 Body temperature 98.3 [degF] Cecy Aichholz Work Phone: [facility] 03-30-2024 02:03-0400 Diastolic blood pressure 73 mm[Hg] Cecy Aichholz Work Phone: [facility] 03-30-2024 02:03-0400 Heart rate 62 /min Cecy Aichholz Work Phone: [facility] 03-30-2024 02:03-0400 Respiratory rate 18 /min Cecy Aichholz Work Phone: [facility] 03-30-2024 02:03-0400 SaO2% (BldA) [Mass fraction] 96 % Cecy Aichholz Work Phone: [facility] 03-30-2024 02:03-0400 Systolic blood pressure 133 mm[Hg] Cecy Aichholz Work Phone: [facility] 03-29-2024 22:19-0400 Body height 190.5 cm Cecy Aichholz Work Phone: [facility] 03-29-2024 22:19-0400 Body weight 151.9 kg Cecy Aichholz Work Phone: [facility] 03-25-2024 16:05-0400 Diastolic blood pressure 83 mm[Hg] Cecy Aichholz Work Phone: [facility] 03-25-2024 16:05-0400 Heart rate 86 /min Cecy Aichholz Work Phone: [facility] 03-25-2024 16:05-0400 Respiratory rate 18 /min Cecy Aichholz Work Phone: [facility] 03-25-2024 16:05-0400 SaO2% (BldA) [Mass fraction] 98 % Cecy Aichholz Work Phone: [facility] 03-25-2024 16:05-0400 Systolic blood pressure 120 mm[Hg] Cecy Aichholz Work Phone: [facility] 03-25-2024 09:37-0400 Body temperature 98 [degF] Cecy Aichholz Work Phone: [facility] 03-25-2024 06:32-0400 Body weight 149.5 kg Cecy Aichholz Work Phone: [facility] 03-23-2024 03:31-0400 Body height 190.5 cm Cecy Aichholz Work Phone: [facility] 10-08-2021 13:30-0500 Body height 190.5 cm Yue Pedroza Other [facility] Other 10-08-2021 13:30-0500 Body mass index (BMI) [Ratio] 45.12 kg/m2 Yue Pedroza Other [facility] Other 10-08-2021 13:30-0500 Body temperature 96.6 [degF] Yue Pedroza Other [facility] Other 10-08-2021 13:30-0500 Body weight 163.75 kg Yue Pedroza Other [facility] Other 10-08-2021 13:30-0500 SaO2% (BldA) [Mass fraction] 98 % Yue Pedroza Other [facility] Other Encounters Encounter Date Encounter Type Care Provider Facility Start: 04-04-2024 End: 04-04-2024 ambulatory CECY AICHHOLZ Not Available Start: 04-03-2024 End: 04-03-2024 ambulatory LISET JIMENEZ Not Available Start: 03-30-2024 End: 03-30-[address] Facility:[facility] Start: 03-30-2024 End: 03-30-2024 Evaluation and management of inpatient Cecy Aichholz Work Phone: [facility] Work Phone: Start: 03-30-2024 End: 03-30-2024 observation encounter Cecy J Aicshellieholz Work Phone: [facility] Work Phone: Start: 03-23-2024 End: 03-25-2024 Evaluation and management of inpatient Cecy Aichholz Work Phone: [facility] Work Phone: Start: 03-04-2024 End: 03-04-2024 ambulatory JULIET HWANG Not Available Start: 02-20-2024 End: 02-20-2024 ambulatory CECY AICHHOLZ Not Available Start: 02-13-2024 End: 02-13-2024 ambulatory TANA CARDENAS Not Available Start: 02-07-2024 End: 02-07-2024 ambulatory VICKY SCRUGGS Not Available Start: 11-16-2023 End: 11-16-2023 ambulatory CECY AICHHOLZ Not Available Start: 11-12-2023 Refill Jone Cota MD Work Phone: [facility] Start: 10-11-2023 Refill Cecy Aichholz BAND DIRECTOR Work Phone: [facility] Comment on above: Type 2 diabetes genet itus without complication, without long- term current use of insulin (CMS/HCC) (Primary Dx); Type 2 diabetes mellitus without complications (CMS/HCC) Start: 08-16-2023 End: 08-16-2023 ambulatory CECY AICHHOLZ Not Available Start: 04-23-2022 End: 04-23-2022 ambulatory PIPE ASSEMBLY WORKER CECY AICHHOLZ Facility:[facility] Start: 01-11-2022 End: 01-12-2022 ambulatory PIPE ASSEMBLY WORKER CECY AICHHOLZ Facility:[facility] Start: 10-08-2021 End: 10-08-2021 ambulatory Yue Pedroza Other [facility] Other Start: 10-08-2021 Office outpatient vi sit 15 minutes Yue Pedroza [facility] Start: 06-07-2021 End: 06-07-2021 ambulatory PIPE ASSEMBLY WORKER CECY AICHHOLZ Facility:[facility] Start: 05-05-2021 End: 05-06-2021 ambulatory PIPE ASSEMBLY WORKER CECY AICHHOLZ Facility:[facility] Start: 06-08-2018 End: 06-09-2018 Patient encounter procedure DEFAULT PHYSICIAN Facility:[facility] Start: 11-07-2013 End: 11-07-2013 Telephone encounter Haylee Garcia Work Phone: Rheumatology Comment on above: Appointment Cancelle d Procedures Date Procedure Procedure Detail Performing Clinician Start: 03-29-2024 CT of head without contrast Cecy Aichholz Work Phone: Start: 03-25-2024 CSF (PCR) Cecy Aichh olz Work Phone: Start: 03-25-2024 Investigation of transfusion reaction Cecy Hernandez Work Phone: Start: 03-25-2024 MRI of cervical spin e with contrast Cecy Hernandez Work Phone: Start: 03-23-2024 MRI of head Cecy quijano Work Phone: Start: 03-23-2024 Plain chest X-ray Cecy Hernandez Work Phone: Plan of Treatment Date Care Activity Detail Author Start: 03-30-2024 End: 03-30-2024 [facility] Start: 03-30-2024 Physical therapy procedure [facility] Start: 03-30-2024 Referral to neurologist [facility] Start: 03-30-2024 Referral to occupational therapist [facility] Start: 03-30-2024 [facility] Start: 03-30-2024 Hospital admission [facility] Start: 03-29-2024 CT of head without contrast CT head/brain wo con [facility] Start: 03-29-2024 CT Unspecified body region WO contrast [facility] Start: 03-25-2024 [facility] Start: 03-25-2024 Cerebrospinal fluid culture [facility] Start: 03-24-2024 [facility] Start: 03-23-2024 [facility] Start: 03-23-2024 Hospital admission [facility] Start: 03-23-2024 Referral to neurologist [facility] Start: 01-14-2024 Urine screening for protein Diabetes: Urine Protein Screening [facility] Start: 01-03-2024 End: 01-03-2024 Patient encounter procedure 01/03/2024 3:00 PM EDT Office Visit [facility] [address] [id number] Jone Cota MD [address] [address] [facility] Start: 12-27-2023 Screening for malignant neoplasm of colon [facility] Start: 11-16-2023 End: 11-16-2023 Patient encounter procedure 11/16/2023 1:20 PM EDT Office Visit [facility] [address] [place] [address] Cecy Hernandez, BAND DIRECTOR [address] [place] [address] [facility] Start: 11-03-2023 Hemoglobin A1c measurement Diabetes: Hemoglobin A1C [facility] Start: 04-28-2023 Influenza vaccination Influenza Vaccine [facility] [place] [facility] Start: 04-28-2020 Influenza vaccination INFLUENZA (#1) [facility] Start: 2012 LIPID SCREEN LIPID SCREEN [facility] Start: 1996 DTaP,Tdap and Td Vaccines (1 - Tdap) DTaP,Tdap and Td Vaccines (1 - Tdap) [facility] [place] [facility] Start: 1996 Urine microalbumin profile DTAP,TDAP,TD (1 - Tdap) [facility] Start: 1995 Adult BMI Screening Adult BMI Screening [facility] [place] [facility] Start: 1995 Diabetic foot examination Diabetic Foot Exam [facility] [place] [facility] Start: 1995 HIV SCREENING HIV SCREENING [facility] Start: 1989 Depression Screening Depression Screening [facility] [place] [facility] Start: 1989 Tobacco Screening Tobacco Screening [facility] [place] [facility] Start: 1987 Glaucoma screening Diabetes: Retinopathy Screening [facility] Start: 1977 Glaucoma screening Diabetic Ophthalmology Exam [facility] [place] [facility] Start: 1977 Screening for malignant neoplasm of colon [facility] Start: 1977 Urine screening for protein Urine Microalbumin [facility] [place] [facility] Albumin [Mass/volume ] in Cerebral spinal fluid [facility] Albumin [Mass/volume ] in Serum or Plasma [facility] Anion gap measurement [facility] Bacteria identified in Unspecified specimen by Aerobe culture [facility] Bacteria identified in Unspecified specimen by Anaerobe culture [facility] Basophils [#/volume] in Blood by Automated count [facility] Basophils/100 leukoc ytes in Blood by Automated count [facility] Borrelia burgdorferi IgG+IgM Ab [Presence] in Serum by Immunoassay [facility] Cerebrospinal fluid IgG ratio and IgG index [facility] Eosinophils/100 leukocytes in Blood by Automated count [facility] Erythrocyte distribu tion width [Ratio] by Automated count [facility] Erythrocytes [#/volu me] in Blood [facility] Hematocrit [Volume Fraction] of Blood [facility] Hemoglobin [Mass/vol ume] in Blood [facility] IgG [Mass/volume] in Cerebral spinal fluid [facility] IgG [Mass/volume] in Serum or Plasma [facility] IgG clearance/Albumi n clearance [Ratio] in Serum and CSF [facility] IgG synthesis rate [Mass/time] in Serum and CSF by calculation [facility] Leukocytes [#/volume ] corrected for nucleated erythrocytes in Blood by Automated coun [facility] Leukocytes [#/volume ] in Blood [facility] Lymphocytes [#/volum e] in Blood by Automated count [facility] Lymphocytes/100 leukocytes in Blood by Automated count [facility] MCH [Entitic mass] b y Automated count [facility] MCHC [Mass/volume] b y Automated count [facility] MCV [Entitic volume] by Automated count [facility] Monocytes [#/volume] in Blood by Automated count [facility] Monocytes/100 leukoc ytes in Blood by Automated count [facility] Myoglobin [Mass/volu me] in Serum or Plasma [facility] Neutrophils [#/volum e] in Blood by Automated count [facility] Neutrophils/100 leukocytes in Blood by Automated count [facility] Nucleated erythrocyt es [Presence] in Blood by Automated count [facility] Patient Education Know your Meds [facility] Work Phone: Patient referral [facility] Work Phone: Platelet mean volume [Entitic volume] in Blood by Automated count [facility] Platelets [#/volume] in Blood [facility] Protein fractions.oligoclonal bands.intrathecal [Presence] in Serum and CSF [facility] Immunizations Immunization Date Immunization Notes Care Provider Sarah saldana 06-06-2023 influenza virus vaccine, unspecified formulation Cecy Hernandez BAND DIRECTOR Work Phone: [facility] 04-04-2014 tetanus toxoid, redu [place] diphtheria toxoid, and acellular pertussis vaccine, adsorbed Yue Kasia Other [facility] 06-12-2013 influenza virus vaccine, unspecified formulation Haylee Garcia [facility] Payers Date Payer Category Payer Self-pay 2022 Medicaid [id number] 2022 Medicaid [id number] 2013 Medicaid [place] [employer] [place] [employer]ICA[employer] [id number] 2013-Present Medicaid [id number] 2013 Self-pay SELF PAY HSP/MED ICAL SELF PAY [id number] 2013-2015 SELF PAY Indemnity [id number] 1977 Unknown [id number] [id number] 1977 Unknown [id number] [id number] 1977 Unknown [id number] [id number] 1977 Unknown [id number] 2.16.840.1.448929.3.579.2.593 1977 Unknown [id number] [id number] 1977 Unknown [id number] 2.16.840.1.022611.3.579.2.1258 1977 Unknown [id number] 2.16.840.1.161492.3.579.2.1258 1977 Unknown [id number] 2.16.840.1.402199.3.579.2.1258 1977 Unknown [id number] 2.16.840.1.199206.3.579.2.1258 1977 Unknown [id number] 2.16.840.1.634802.3.579.2.1258 1977 Unknown [id number] [id number]58 1977 Unknown [id number] 2.16.840.1.524499.3.579.2.1258 1977 Unknown [id number] 2.16.840.1.466312.3.579.2.9 1959 Unknown [id number] [id number] 1959 Unknown [id number] Unknown Unknown [id number] [id number] Unknown [id number] Social History Date Type Detail Facility Start: 05-20-2013 End: 03-30-2024 Tobacco smoking status [facility] Former smoker [facility] Start: 05-20-2013 Alcohol intake Not Asked [facility] Start: 1975 Sex Assigned At Not on file [facility] Start: 02-06-2019 End: 08-16-2023 Sex Assigned At [facility] Other History of tobacco use Current smoker [facility] History of tobacco use Cigarette Smoker [facility] Start: 08-16-2023 Alcohol intake Ex-drinker (finding) [facility] Start: 02-06-2019 End: 08-16-2023 History of Social function [facility] Start: 08-16-2023 Tobacco Comment Last smoked: 5-10 ye ars [facility] Start: 08-16-2023 Alcohol Comment caffeine 1-2 c ups per day [facility] Tobacco smoking status [facility] Tobacco smoking consumption unknown [facility] Start: 1975 Sex Assigned At Male F [facility] Medical Equipment Procedure Code Equipment Code Equipment Origin al Text Equipment Identifier Dates 1 each by Other route Daily as needed [id number] Start: 10-13-2022 1 each by Other route if needed [id number] Start: 10-13-2022 Goals Date Patient Goal Desired Activity /State Functional Status Date Assessment Result Facility 03-30-2024 Functional status Patient at [facility] Work Phone: 03-25-2024 Functional status Patient at [facility] Work Phone: Mental Status Date Assessment Result Facility 03-30-2024 Cognitive function Cognitive Sta tus Patient at Baseline [facility] Work Phone: 03-25-2024 Cognitive function Cognitive Sta tus Patient at Baseline [facility] Work Phone: Clinical Notes 10-08-2021 to 03-30-2024 Note Date & Type Note Facility 03-30-2024 Discharge summary Note Date/Time March 30, 2024 12:47pm [facility] [address] [place] [address] Discharge Summary Signed Patient: Bhumika Umana JR MR#: [id number] : 1975 Acct:[id number] Age/Sex: 48 / M Adm Date: 4 Loc: 3T Room: [address] [place] [address]: Bola Garcia DO Copies to: MD Bola Mast DO Lisa J Aichholz, BAND DIRECTOR-C~ Providers Date of Discharge: 03/30/24 Discharging Provider: Bola Garcia Primary Care Provider: Cecy Hernandez Consults: 03/30/24 01:26 Consult to Neurology Routine Comment: Consulting Provider: Altag[address]ia Street Reason For Exam: BLE and BUE weakness Has Provider Been Notified: Yes Date of Notification: 03/30/24 Time of Notification: 08:12 Consult to Occupational Therapy Routine Comment: Physician Instructions: Consult to OT for:: Evaluation and Treat Consult to Physical Therapy Routine Comment: Physician Instructions: Consult to PT for:: Evaluation and Treat Discharge Diagnosis (1) Bilateral leg weakness: (2) Bilateral arm weakness: (3) Falls: (4) Fasciculation: Final Diagnosis Final Discharge Diagnosis: Progressive bilateral distal upper extremity weakness, starting in late December 2023. This brief hospital stay here was related to a sudden onset of bilateral lower extremity weakness, which occurred after watching movies, and then having a fallafterwards, this is sudden weakness to his legs is felt to be from simply sitting too long. Summary Hospital Course Hospital course: This is a 48-year-old man who presented emergency room with severe weakness to both legs. This occurred after sitting in the movie theater watching a movie and then having a fall and laying on the ground after that. He recently had been in the hospital for MRI scanning of the brain and neurologic workup due to progressive weakness of his upper extremities. 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 He has worsening RA and was nt able to funciton normally. He was taking Neris and it was helping. He has been doing better. He has joint damage from that He has trouble straightening his arms and cannot move his wrists He does not have disability for the RA. He admits to being pretty sedentary and not very active. He does not exercise. He does not work outside on the lawn. He states that when his arthritis was flaring he could have some difficulty arising from a chair. He states that when he was 23 he developed rheumatoid arthritis, was on Humira for almost 20 years. Humira stopped about 5 years ago and has been feeling fine. Current real estate sales associate is working him up for possible Sjogren's disease. He has had recent MRIs, MRI of the brain showed T2 and T2 flair imaging within the white matter which was nonspecific and could not exclude a demyelinating process. MRI of the C-spine showed broad-based disc bulge with central disc extrusion at C3-C4, C4-C5, C5-6 and C6-7. Lumbar puncture was also performed. -MRI brain with and without contrast March 23, 2024 showed no acute process and no enhancement but there are focal areas of abnormal signal (T2/FLAIR) in the white matter and it is said that a demyelinating process cannot be excluded. -CK 34 -ESR 14, CRP not detected? -MRI cervical spine with and without contrast March 25, 2024 shows a broad-based disc bulge with central disc extrusion at C3-4 with some focal mass effect on the cervical cord at that level but there is still a thin area of cerebrospinal fluid posterior to the cord and there is no underlying cord edema.? Nothing concerning for demyelinating lesions new or old.? Nothing enhancing -CSF from March 25, 2024: Traumatic tap, RBCs 3051 on tube 3, total nucleated cells 3 on tube 3, glucose 72, protein 84, infectious PCR panel all negative. As for this hospital stay, his second brief stay.... in the hospital the bilateral lower extremity weakness was felt to be sitting still too long in the movie theater chair and then falling on the floor and remaining on the floor fora prolonged period of time. His lower extremity weakness was fully resolved. He had a neurologic evaluation and physical therapy evaluation with no residual lower extremity weakness. He is still needs to get the following things done on the outpatient basis: He needs to see the neurology clinic. He needs to see his real estate sales associate in [place]. The following labs are still pending from the recent inpatient hospital stay where his upper extremity this was worked up: Pending CSF lab work: Oligoclonal bands, IgG synthesis rate, myelin basic protein - which can take a few weeks to return Pending serum lab work: Lyme serology Condition Condition at Discharge: Stable Status at Discharge Functional status at discharge: independent ambulation Overall status at discharge: patient is progressing back to baseline Time Spent with Patient Time spent providing/coordinating discharge services (# min): 22 Discharge Plan Discharge Plan Patient Disposition: Home Activity: No Activity Restriction Diet: Diabetic Additional Instructions: Follow up in the neurology office. Follow up with your Distribution Estimator in [place]. Instructions: Know your Meds Prescriptions: Continued amitriptyline 10 mg tablet 10 mg PO DAILY aspirin 81 mg tablet,chewable 1 tab PO DAILY citalopram 40 mg tablet 40 mg PO DAILY dapagliflozin propanediol [Farxiga] 5 mg tablet 10 mg PO DAILY fluticasone propionate 50 mcg/actuation spray,suspension 2 spray INTRANASAL QHS gabapentin 300 mg capsule 300 mg PO .bid lisinopril-hydrochlorothiazide 20-25 mg tablet 1 tab PO DAILY loratadine [Allergy Relief (loratadine)] 10 mg tablet 10 mg PO DAILY meloxicam 15 mg tablet 15 mg PO DAILY metformin 1,000 mg tablet 1,000 mg PO .bid pioglitazone 30 mg tablet 30 mg PO DAILY prednisone 10 mg tablet 30 mg PO DAILY Patient Comments: TAKE 3 TABLETS BY MOUTH DAILY FOR 3 DAYS, then TAKE 2 TABLETS BY MOUTH DAILY FOR 3 DAYS, then TAKE 1 TABLET BY MOUTH DAILY FOR 3 DAYS Rx Instructions: orally daily; TAKE 3 TABLETS BY MOUTH DAILY FOR 3 DAYS, then TAKE 2 TABLETS BY MOUTH DAILY FOR 3 DAYS, then TAKE 1 TABLET BY MOUTH DAILY FOR 3 DAYS simvastatin 20 mg tablet 20 mg PO QHS tizanidine 4 mg tablet 4 mg PO QHS PRN (Reason: pain) Exam Physical Exam Vital Signs: Temp Pulse Resp BP Pulse Ox O2 Del Method 98 F 68 19 146/87 H 96 Room Air 03/30/24 08:00 03/30/24 08:00 03/30/24 08:00 03/30/24 08:00 03/30/24 08:00 03/30/24 08:00 Narrative: On my entry into the patient's room at 12:30 in the afternoon he is in the bedside chair which is reclined and he is asleep. He does wake up briefly to my examination. Lower extremity strength is fully intact and 5 out of 5 with dorsiflexion plantarflexion and leg extension and leg flexion. His leg strength is equal bilaterally. Upper extremity: He does have mildly weak educational assistant strength of both hands and mild weakness to left and right forearm which are equal. He is able to move his upper extremities and shrug his shoulders with good strength. Diagnostic Studies Completed and Pending Studies Pending studies at discharge: 03/29/24 23:36 Myoglobin Stat Labs on day of discharge: 03/30/24 06:28: Corrected WBC 20.0 H, Uncorrected WBC Count 20.0 H, RBC 5.03, Hgb 14.9, Hct 44.6, MCV 88.6, MCH 29.5, MCHC 33.3, RDW 13.6, Plt Count 324, MPV 7.5, Neut % (Auto) 67.6, Lymph % (Auto) 22.0, Forsyth % (Auto) 9.0, Eos % (Auto) 1.0, Baso % (Auto) 0.4, Nucleat RBC Rel Count 0.0, Neut # (Auto) 13.5 H, Lymph #(Auto) 4.4, Forsyth # (Auto) 1.8 H, Eos # (Auto) 0.2, Baso # (Auto) 0.1, PHA Creatinine Clear 238.21, Sodium 136, Potassium 4.4, Chloride 101, Carbon Zknwgrz55.2, Anion Gap 12.2, BUN 13, Creatinine 0.61 L, Est GFR (CKD-EPI) > 60.0, Glucose 119 H, Calcium 9.3, Magnesium 1.8 L 03/30/24 06:27: POC Glucose 115 03/30/24 02:25: POC Glucose 144 03/29/24 22:50: Corrected WBC 17.1 H, Uncorrected WBC Count 17.1 H, RBC 5.15, Hgb 15.1, Hct 45.6, MCV 88.5, MCH 29.3, MCHC 33.1, RDW 13.6, Plt Count 352, MPV 7.4, Neut % (Auto) 77.7, Lymph % (Auto) 14.7, Forsyth % (Auto) 6.5, Eos % (Auto) 0.6, Baso % (Auto) 0.5, Nucleat RBC Rel Count 0.1, Neut # (Auto) 13.3 H, Lymph #(Auto) 2.5, Forsyth # (Auto) 1.1 H, Eos # (Auto) 0.1, Baso # (Auto) 0.1, Monocyte Dist Width 16.02, ESR 12, PHA Creatinine Clear 196.64, Sodium 134 L, Potassium 4.4, Chloride 101, Carbon Dioxide 23.0, Anion Gap 14.4, BUN 15, Creatinine 0.74,Est GFR (CKD-EPI) > 60.0, Glucose 201 H, Calcium 9.3, Total Creatine Kinase 37, C-Reactive Prot, Quant < 0.5 03/29/24 22:22: POC Glucose 204 Documented By: Bola Garcia DO 1240 Signed By: <Electronically signed by Bola Garcia, > 03/30/24 1247 [facility] Work Phone: [phone] 973-857908-03-2024 Consult note Author Altagracia Street [facility] March 30, 2024 11:04am Note Date/Time March 30, 2024 10: 08am [facility] [address] [place], [place] [id number] Neurology Consult Note Signed Patient: Bhumika Umana JR MR#: [id number] : 1975 Acct:[id number] Age/Sex: 48 / M Adm Date: 4 Loc: Room: [address] [place] [address] Type: ADM INOo Attending Dr: Bola Garcia DO Copies to: DO Cecy Watson NP-C Nicole J Danner, DO~ HPI Consult Date: 03/30/24 Boxing Instructor: Altagracia Street DO Reason for consult: weakness Consult Narrative HPI: 48-year-old male being seen in Neurology consultation at the request of the hospitalist. The patient was recently admitted worked up and released for similar issues. The patient has a PMH of T2DM, HTN, depression adn RA. The patient returned to the hopsital/ED wt new complaints of BLE where his previous complaint was BUE weakness. He reportedly went to the movies and whenhe went to stand up after the moving his legs gave out and he fell to the floor. He denies hitting his head, denies loss of consciousness, denies dizziness. Hestates my legs just would not hold me. He reports that he has been having trouble with his hands and his arms since December. He had an EMG BUE and it was normal as an outpt by Dr. Callaway. He had MRI C spine and MRI of the brain thatdid show some DDD and small vesssel changes but nothing acute. He had and LP that was fairly unremarkable with just some mildy Elevated protein but not too high. He was walking normally at home and had walked into the movies without any difficulty. The day before he said walking up the 3 steps felt off but he was able to do it and had no other issues. He had sat for a while at the movie theater and he had trouble getting up and had to scoot up in the seat and when he tried to stand he fell to the ground and his legs buckled on him. He had to crawl to the arm of the chair and was able to get himself up. He was able to walk out of the movie theater and to the car and walk into the ED. His leg strength has been fairly good since being here at the hospital and he states he worked with PT this morning and had no major issues. He denies numbness or tingling to his legs. He reportedly has had increasing difficulty with preparing food at home, showering, dressing. He reports that hedid not eat on the day of the admit until his brother came over to go to the [employer]. States he needed help just opening up a taco, he could barely hold up the taco with his hands which is what he was just here for. He states that sometimes after he rests he has better use of his hands and his arms but then henoticed after he uses them they get tired after a while they get weaker and moredifficult to use. He states that his hands feel like they have bsou-[id number] them. He was discharged from the hospital 03/25/2024 where he had further workup for his BUE weakness and has follow-up scheduled with neurology on 04/09/2024. This is the first time this has happened with his legs he is worried about being homealone and what would happen if he fell at home. He had not loss of control of bowel or bladder. No trouble swallowing. His hand weakness seems the same as it was when he was discharged. Nothing new or worsening. NO diplopia. He has some mild headache across the forehead and down into his neck. He does not normally get headahce. It has been occcurring the last couple days. He admits that he has not been sleeping well. 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 He has worsening RA and was nt able to funciton normally. He was taking Neris and it was helping. He has been doing better. He has joint damage from that He has trouble straightening his arms and cannot move his wrists He does not have disability for the RA. He admits to being pretty sedentary and not very active. He does not exercise. He does not work outside on the lawn. He states that when his arthritis was flaring he could have some difficulty arising from a chair. He states that when he was 23 he developed rheumatoid arthritis, was on Humirafor almost 20 years. Humira stopped about 5 years ago and has been feeling fine. Current real estate sales associate is working him up for possible Sjogren's disease. He has had recent MRIs, MRI of the brain showed T2 and T2 flair imaging within the white matter which was nonspecific and could not exclude a demyelinating process. MRI of the C- spine showed broad-based disc bulge with central disc extrusion at C3-C4, C4-C5, C5-6 and C6-7. Lumbar puncture was also performed. CT of the head showed no acute intracranial process. CBC with white blood cell count of 17.1, has been on steroids and elevated during prior hospitalization. BMP with a sodium of 134, glucose 201, otherwise unremarkable. CRP is less than0.5, ESR 12. Myoglobin was drawn and this is pending. Review of Systems Constitutional Constitutional: Denies chills and Denies fever(s) Eyes Eyes: Denies blurry vision and Denies diplopia ENT Ears, Nose, Mouth, and Throat: Denies nasal congestion, Denies nasal discharge and Denies vertigo Cardiovascular Cardiovascular: Denies chest pain and Denies palpitations Respiratory Respiratory: Denies cough and Denies dyspnea Gastrointestinal Gastrointestinal: Denies nausea and Denies vomiting Genitourinary Genitourinary: Denies dysuria and Denies hematuria Musculoskeletal Musculoskeletal: Reports muscle weakness, Denies numbness and Denies tingling Integumentary/Breasts Skin/Breast: Denies new lesions and Denies rash Neurologic Neurologic: Denies dizziness, Reports headache(s) and Reports weakness [facility] Medical History Depressed Acute rheumatoid arthritis Diabetes HTN (hypertension) Surgical History History of tonsillectomy and adenoidectomy Family History Father Myocardial infarction Heart disease Mother Family history of colon cancer Cancer [facility] Problem: Diagnosed with Cancer Hypertension Social History Smoking Status: Former smoker Tobacco Type: cigarettes Substance Use Type: None Meds Medications and Allergies Allergies almond Allergy (Intermediate, Verified 03/29/24 22:19) Hives cashew nut Allergy (Intermediate, Verified 03/29/24 22:19) Hives Penicillins Allergy (Unknown, Verified 03/29/24 22:19) rash. vomiting, when he was kid adhesive tape Adverse Reaction (Severe, Verified 03/29/24 22:19) Unknown Reaction Home Medications amitriptyline 10 mg tablet 10 mg PO DAILY 03/23/24 [History Confirmed 03/30/24] aspirin 81 mg chewable tablet 1 tab PO DAILY 03/23/24 [History Confirmed 03/30/24] citalopram 40 mg tablet 40 mg PO DAILY 03/23/24 [History Confirmed 03/30/24] dapagliflozin propanediol 5 mg tablet (Farxiga) 10 mg PO DAILY 03/23/24 [History Confirmed 03/30/24] fluticasone propionate 50 mcg/actuation nasal spray,suspension 2 spray intranasal QHS 03/23/24 [History Confirmed 03/30/24] gabapentin 300 mg capsule 300 mg PO .bid 03/23/24 [History Confirmed 03/30/24] lisinopril 20 mg-hydrochlorothiazide 25 mg tablet 1 tab PO DAILY 03/23/24 [History Confirmed 03/30/24] loratadine 10 mg tablet (Allergy Relief (loratadine)) 10 mg PO DAILY 03/23/24 [History Confirmed 03/30/24] meloxicam 15 mg tablet 15 mg PO DAILY 03/23/24 [History Confirmed 03/30/24] metformin 1,000 mg tablet 1,000 mg PO .bid 03/23/24 [History Confirmed 03/30/24] pioglitazone 30 mg tablet 30 mg PO DAILY 03/23/24 [History Confirmed 03/30/24] prednisone 10 mg tablet 30 mg PO DAILY 03/23/24 [History Confirmed 03/30/24] simvastatin 20 mg tablet 20 mg PO QHS 03/23/24 [History Confirmed 03/30/24] tizanidine 4 mg tablet 4 mg PO QHS PRN pain 03/23/24 [History Confirmed 03/30/24] Exam Physical Exam Vital Signs: Temp Pulse Resp BP Pulse Ox O2 Del Method 97.7 F 65 16 139/89 95 Room Air 03/30/24 02:25 03/30/24 02:25 03/30/24 02:25 03/30/24 02:25 03/30/24 02:25 03/30/24 03:57 Narrative: EXAMINATION: Pt sleeping but arousable and becomes alert and oriented x3 no distress. HEENT NC/AT Attention normal. Speech is clear and fluent no aphasia or dysarthria Pupils are equal and reactive to light and accomidation. VFF, EOMI and Ocular motility is full. No nystagmus. No facial asymmetry Facial sensation is normal. Hearing is normal. Tongue is midline with good ROM, Palate rises symmetrically, Uvula is midline, good bilateral shoulder shrug Pronator drift is negative coordination shows no asymmetry Muscle bulk seems normal. rare Fasciculations are observed in the thenar muscles of the right hand posteriorly. Muscle tone seems normal. He has weakness into the hands but not really into the forearms or upper arm and shoulder. However, He does not give good effort either He seems to have full strength in the bilateral lower extremities at this time his BLE is 5/5 throughout no weakness or asymmetry. No tremors spasticity or clonus. Reflexes somewhat hypoactive in bilateral upper extremities but able to be found. No limb dysmetria or ataxia. Sensation is intact to light touch, vibratory, pin prick and temperature throughout. Results - Neuro Laboratory Findings 03/30/24 06:28 03/30/24 06:28 Lab Results: ESR 12 mm/hr (0-14) 03/29/24 22:50 Diagnostic Findings Imaging/Impressions: ITS Impressions Head CT 03/29/24 22:49 IMPRESSION: No acute findings. Impression dictated by: Mert Ferreira M.D.03/30/2024 9:26 AM Dictation Location: [place] [address] Assessment/Plan (1) Bilateral arm weakness: (2) Bilateral leg weakness: (3) Falls: Qualifiers: Encounter type: initial encounter Qualified Code(s): W19.XXXA - Unspecified fall, initial encounter (4) Fasciculation: Plan DATA REVIEW: -MRI brain with and without contrast March 23, 2024 showed no acute process and no enhancement but there are focal areas of abnormal signal (T2/FLAIR) in the white matter and it is said that a demyelinating process cannot be excluded. -CK 34 -ESR 14, CRP not detected? -MRI cervical spine with and without contrast March 25, 2024 shows a broad-based disc bulge with central disc extrusion at C3-4 with some focal mass effect on the cervical cord at that level but there is still a thin area of cerebrospinal fluid posterior to the cord and there is no underlying cord edema.? Nothing concerning for demyelinating lesions new or old.? Nothing enhancing -CSF from March 25, 2024: Traumatic tap, RBCs 3051 on tube 3, total nucleated cells 3 on tube 3, glucose 72, protein 84, infectious PCR panel all negative ASSESSMENT: 48 year old male who has progressive bilateral distal upper extremity weakness starting in late December 2023.? His wrist and hand weakness is very significant bilaterally, worse on the left than the right. He has had an extensive work up that so far has not revealed an etiology He does have a long Hx of suspected RAand He reports a lot of joint damage from that and admits that he has not been acitve and is fairly sedentary. He has not worked in 10 year and has not been able to get disability. I would suspect that some of his weakness is due to debility. He did have a fall after he went to the [employer] and sat for an extended period oftime. He was able to get up and walk out of the movies and walk into the ED. he denies any current weakness and worked with PT who did not see any weakness in his BLE nor did I on exam,. I suspect that this was just from sitting to long. AT this time I do not suspect that this is any progression of the primaryprocess that is going on. He has not had any loss of bowel or bladder control. It seems he got nervous that there could have been some progressin of the disease process. At that time unless there is anything else new he can be discharged home and finish the work up as an out patient as originally planned PLAN: PT reported no measured weakness OK to DC home and finish the work up as an outpt and f/u in the Neuro clinic Pending CSF lab work: Oligoclonal bands, IgG synthesis rate, myelin basic protein - which can take a few weeks to return Pending serum lab work: Lyme serology cont with outpt occupational therapy and increasing home exercise program This was all discussed with the patient all questions were answered and he agreed with the treatment plan. Documented By: Altagracia Street DO 03/30/24 1003 Signed By: <Electronically signed by DO Altagracia Street> 03/30/24 6570 [facility] Work Phone: [phone]) 474-416608-03-2024 History and physical note Author Edgar Gomez [facility] March 30, 2024 6:59am Note Date/Time March 30, 2024 1:3 8am [facility] [address] [place] [address] Hospitalist H&P Signed Patient: Bhumika Umana JR MR#: [id number] : 1975 Acct:[id number] Age/Sex: 48 / M Adm Date: 4 Loc: Room: [address] [place] [address] Type: ADM INOo Attending Dr: Edgar Gomez MD Copies to: MD Cecy Jeter, RAYMONDC Margaret Malave, BLADDER TRIMMER~ HPI DATE OF EXAMINATION: 03/30/24 CHIEF COMPLAINT: ble weakness and fall HISTORY OF PRESENT ILLNESS: Mr. Umana is a 48-year-old male with a PMH of T2DM, HTN, depression, RA that presented to the emergency room tonight for complaints of BLE weakness and a fall. He states that he went to the movies today and when he went to stand up after the moving his legs gave out and he fell to the floor. Denies hitting hishead, denies loss of consciousness, denies dizziness. He states my legs just would not hold me. He reports that he has been having trouble with his hands and his arms since December. He was discharged from the hospital 03/25/2024 where he had further workup for his BUE weakness and has follow-up scheduled with neurology on 04/09/2024. This is the first time this has happened with his legs he is worried about being home alone and what would happen if he fell at home. He denies numbness or tingling to his legs. He states he has had increasing difficulty with preparing food at home, showering, dressing. He reports that hedid not eat today until his brother came over to go to the [employer]. States he needed help just opening up a taco, he could barely hold up the taco. He statesthat sometimes after he rests he has better use of his hands and his arms but then he noticed after he uses them they get tired after a while they get weaker and more difficult to use. He states that his hands feel like they have rfem-[id number] in them. He is moving both of his legs during exam. He denieschest pain, shortness of breath, fever or chills, nausea or vomiting. He does complain of a headache behind his eyes, has had it for couple of days. He states that when he was 23 he developed rheumatoid arthritis, was on Humira for almost 20 years. Humira stopped about 5 years ago and has been feeling fine. Current real estate sales associate is working him up for possible Sjogren's disease. He hashad recent MRIs, MRI of the brain showed T2 and T2 flair imaging within the white matter which was nonspecific and could not exclude a demyelinating process. MRI of the C-spine showed broad- based disc bulge with central disc extrusion at C3-C4, C4-C5, C5-6 and C6-7. Lumbar puncture was also performed. CT of the head showed no acute intracranial process. CBC with white blood cell count of 17.1, has been on steroids and elevated during prior hospitalization. BMP with a sodium of 134, glucose 201, otherwise unremarkable. CRP is less than0.5, ESR 12. Myoglobin was drawn and this is pending. Neurologist was consulted per the ER physician who recommended admission. He will be admitted as observation to the medical floor. Review of Systems Review of Systems Review of systems: A 10 point review of systems was obtained, negative unless noted in the HPI or below. [facility] Medical History (Updated 03/30/24 @ 00:44 by Emily Winn DO) Depressed Acute rheumatoid arthritis Diabetes HTN (hypertension) Surgical History History of tonsillectomy and adenoidectomy Family History Father Myocardial infarction Heart disease Mother Family history of colon cancer Cancer [facility] Problem: Diagnosed with Cancer Hypertension Social History Smoking Status: Former smoker Tobacco Type: cigarettes Substance Use Type: None Meds Medications and Allergies Allergies almond Allergy (Intermediate, Verified 03/29/24 22:19) Hives cashew nut Allergy (Intermediate, Verified 03/29/24 22:19) Hives Penicillins Allergy (Unknown, Verified 03/29/24 22:19) rash. vomiting, when he was kid adhesive tape Adverse Reaction (Severe, Verified 03/29/24 22:19) Unknown Reaction Home Medications amitriptyline 10 mg tablet 10 mg PO DAILY 03/23/24 [History Confirmed 03/30/24] aspirin 81 mg chewable tablet 1 tab PO DAILY 03/23/24 [History Confirmed 03/30/24] citalopram 40 mg tablet 40 mg PO DAILY 03/23/24 [History Confirmed 03/30/24] dapagliflozin propanediol 5 mg tablet (Farxiga) 10 mg PO DAILY 03/23/24 [History Confirmed 03/30/24] fluticasone propionate 50 mcg/actuation nasal spray,suspension 2 spray intranasal QHS 03/23/24 [History Confirmed 03/30/24] gabapentin 300 mg capsule 300 mg PO .bid 03/23/24 [History Confirmed 03/30/24] lisinopril 20 mg-hydrochlorothiazide 25 mg tablet 1 tab PO DAILY 03/23/24 [History Confirmed 03/30/24] loratadine 10 mg tablet (Allergy Relief (loratadine)) 10 mg PO DAILY 03/23/24 [History Confirmed 03/30/24] meloxicam 15 mg tablet 15 mg PO DAILY 03/23/24 [History Confirmed 03/30/24] metformin 1,000 mg tablet 1,000 mg PO .bid 03/23/24 [History Confirmed 03/30/24] pioglitazone 30 mg tablet 30 mg PO DAILY 03/23/24 [History Confirmed 03/30/24] prednisone 10 mg tablet 30 mg PO DAILY 03/23/24 [History Confirmed 03/30/24] simvastatin 20 mg tablet 20 mg PO QHS 03/23/24 [History Confirmed 03/30/24] tizanidine 4 mg tablet 4 mg PO QHS PRN pain 03/23/24 [History Confirmed 03/30/24] Exam Physical Exam Vital Signs: Temp Pulse Resp BP Pulse Ox O2 Del Method 98.4 F 86 18 144/90 H 94 L Room Air 03/29/24 22:17 03/29/24 22:17 03/29/24 22:17 03/29/24 22:17 03/29/24 22:17 03/29/24 22:17 Narrative: CONST- Appears well -developed and well nourished. Morbidly obese?BMI 41.9 HEAD - Normocephalic and atraumatic EENT-Sclera nonicteric, conjunctive are non-erythemic, moist oral mucosa, pharynx clear NECK-Supple, no cervical lymphadenopathy CARDIAC-normal rate, regular rhythm, S1 & S2. PULM-diminished without wheeze or rhonchi, RA, no accessory muscle use or cough noted ABD - Soft. Bowel sounds are normal. Softly distended. No tenderness EXTREM-no edema BLE calves, nontender SKIN- W/D good turgor, ecchymosis to RUE and hand MS- MAEX4 spontaneously, hand grasps weak bilaterally, weakness to bilateral arms, BUE dorsiflexion and plantar flexion strong NEURO- A&Ox3 speech clear and tongue midline, equal facial symmetry, no focal motor deficits PSYCH-Mood, affect, and behavior appropriate Results - Hospitalist H&P Lab Results Labs: Laboratory Last Values Corrected WBC 17.1 X10E3/uL (4.1-10.5) H 03/29/24 22:50 Uncorrected WBC Count 17.1 x10E3/uL (4.1-10.5) H 03/29/24 22:50 RBC 5.15 X10E6/uL (3.90-5.60) 03/29/24 22:50 Hgb 15.1 g/dL (13.0-17.0) 03/29/24 22:50 Hct 45.6 % (38.8-50.0) 03/29/24 22:50 MCV 88.5 fl (83.5-101) 03/29/24 22:50 MCH 29.3 pg (27.5-35.2) 03/29/24 22:50 MCHC 33.1 g/dL (32.5-35.6) 03/29/24 22:50 RDW 13.6 % (12.0-14.8) 03/29/24 22:50 Plt Count 352 x10E3/uL (150-450) 03/29/24 22:50 MPV 7.4 fl (6.6-10.1) 03/29/24 22:50 Neut % (Auto) 77.7 % (.) 03/29/24 22:50 Lymph % (Auto) 14.7 % (.) 03/29/24 22:50 Forsyth % (Auto) 6.5 % (.) 03/29/24 22:50 Eos % (Auto) 0.6 % (.) 03/29/24 22:50 Baso % (Auto) 0.5 % (.) 03/29/24 22:50 Nucleat RBC Rel Count 0.1 /100 WBC (0-0.5) 03/29/24 22:50 Neut # (Auto) 13.3 x10E3/uL (1.8-7.7) H 03/29/24 22:50 Lymph # (Auto) 2.5 x10E3/uL (1.00-4.8) 03/29/24 22:50 Forsyth # (Auto) 1.1 x10E3/uL (0.0-0.8) H 03/29/24 22:50 Eos # (Auto) 0.1 x10E3/uL (0.0-0.45) 03/29/24 22:50 Baso # (Auto) 0.1 x10E3/uL (0.0-0.2) 03/29/24 22:50 Monocyte Dist Width 16.02 % (0.00-20.00) 03/29/24 22:50 ESR 12 mm/hr (0-14) 03/29/24 22:50 PHA Creatinine Clear 196.64 03/29/24 22:50 Sodium 134 mmol/L (136-145) L 03/29/24 22:50 Potassium 4.4 mmol/L (3.5-5.1) 03/29/24 22:50 Chloride 101 mmol/L (98-107) 03/29/24 22:50 Carbon Dioxide 23.0 mmol/L (21.0-31.0) 03/29/24 22:50 Anion Gap 14.4 mEq/L (6.0-15.0) 03/29/24 22:50 BUN 15 mg/dL (7-25) 03/29/24 22:50 Creatinine 0.74 mg/dL (0.70-1.30) 03/29/24 22:50 Est GFR (CKD-EPI) > 60.0 mL/Min 03/29/24 22:50 Glucose 201 mg/dL (70-100) H 03/29/24 22:50 POC Glucose 204 mg/dl 03/29/24 22:22 Calcium 9.3 mg/dL (8.6-10.3) 03/29/24 22:50 Total Creatine Kinase 37 U/L (30-223) 03/29/24 22:50 C-Reactive Prot, Quant < 0.5 mg/dL (0.0-0.5) 03/29/24 22:50 Assessment & Plan Assessment/Plan (1) Bilateral leg weakness: (2) Upper extremity weakness: (3) HTN (hypertension): (4) Diabetes: Plan BLE weakness Upper extremity weakness bilaterally ? Consult neurology ? Consult PT/OT ? Up with assist, fall precautions HTN?lisinopril/HCTZ T2DM?fingersticks ACHS, SSI C, Farxiga, metformin, pioglitazone Depression? amitriptyline, citalopram HLD?simvastatin Chronic pain?gabapentin, tizanidine DVT PPx-SCDs Diet order-1800 ADA CODE STATUS-full code I have seen the patient independently and evaluated the patient and agree with the history, physical exam, assessment and plan by nurse practitioner. - Edgar Gomez MD - Internal Medicine IP vs OBS Justification Based on differential dx, clinical care plan, and risk of adverse events, if untreated, in my clinical judgement this patient requires an acute care setting as: OBSERVATION because of an expectation of an under 2 midnight stay. Estimated length of stay (# of days): 1 Documented By: Margaret Malave APRN 03/30/24 0138 Signed By: <Electronically signed by REBEKAH Malave> 03/30/24 0218 <Electronically signed by Edgar Gomez MD> 03/30/24 0659 [facility] Work Phone: 1(103) 535-152607-29-2024 Progress note Author Danial Horan [facility] March 25, 2024 2:09pm Note Date/Time March 25, 2024 2:03 pm [facility] [address] [place] [address] Neurology Progress Note Signed Patient: Bhumika Umana JR MR#: [id number] : 1975 Acct:[id number] Age/Sex: 48 / M Adm Date: 4 Loc: 3T Room: [address] [place] [address] Type: ADM IN Attending Dr: Simon Wolfe MD Copies to: ~ Date of Service: 03/25/2024 Exam Physical Exam Vital Signs: Temp Pulse Resp BP Pulse Ox O2 Del Method 98.0 F 109 H 18 117/79 96 Room Air 03/25/24 09:37 03/25/24 11:51 03/25/24 11:51 03/25/24 11:51 03/25/24 11:51 03/25/24 11:51 Objective Vital Signs Vital Signs: Vital Signs - 24 hr 03/24/24 15:40 03/24/24 20:34 03/24/24 20:58 Temperature 97.6 F Pulse Rate 65 87 Respiratory Rate 17 16 Blood Pressure 106/71 117/80 02 Sat by Pulse Oximetry 96 96 Oxygen Delivery Method Room Air Room Air Room Air 03/25/24 00:16 03/25/24 04:00 03/25/24 06:31 Temperature 97.6 F 97.8 F 97.8 F Pulse Rate 84 81 81 Respiratory Rate 18 18 18 Blood Pressure 117/80 139/86 139/86 02 Sat by Pulse Oximetry 96 95 95 Oxygen Delivery Method Room Air Room Air Room Air 03/25/24 09:37 03/25/24 09:37 03/25/24 11:51 Temperature 98.0 F Pulse Rate 77 109 H Respiratory Rate 18 18 Blood Pressure 130/76 117/79 02 Sat by Pulse Oximetry 95 96 Oxygen Delivery Method Room Air Room Air Room Air Labs 03/24/24 06:27 03/24/24 06:27 Therapy Recommendations Therapy Recommendations: OT Recommendations OT Recommended Discharge Home with Outpatient Location OT Recommended Services at Occupational Therapy Discharge PT Recommendations DC Physical Therapy Due To: No Skilled PT Needs,At Baseline PT Recommended Discharge Home Location Assessment/Plan (1) Upper extremity weakness: Plan CONSULT REASON: Unable to move both arms INTERIM: He had a lumbar puncture this morning and also his cervical spinal MR images. Still feeling the fatigability in his hands when he uses them. He just finishedeating in the hands feel very weak. He does tell me he is intermittently noticing fasciculations in his hands, especially his right hand. He showed me. Otherwise no new symptoms to report and nothing to add to review of systems. EXAMINATION: In no distress. No deformities or trauma. Limbs seem well-perfused. No significant edema. Normal work of breathing. Visualized skin is generally intact and without lesions. Affect normal. Patient is alert and generally oriented. Attention normal. Speech is fluent and nondysarthric. Pupils are equal and reactive. Ocular motility is full. No nystagmus. Facial sensation is normal. Hearing is normal. Facial strength is normal. Tongue is midline. Muscle bulk seems normal. Fasciculations are observed in the thenar muscles of the right hand posteriorly. Muscle tone seems normal. He seems to have full strength in the bilateral lower extremities. Bilateral shoulder flexion and abduction are +5/5 but appears more effortful to him than would be expected. Seems to still have full strength with bilateral elbow flexion/extension. He has +2/5 bilateral wrist extension, +4/5 bilateral wrist flexion, +2/5 bilateralfinger extension, +4/5 bilateral educational assistant strength, +3/5 finger abduction bilaterally. No tremors. Reflexes very hypoactive in bilateral upper extremities, I was able to obtain triceps reflexes left greater than right. He has hypoactive but present bilateral patellar reflexes. Light touch is normal. Vibratory sensation is intact throughout. No limb dysmetria or ataxia. DATA REVIEW: -MRI brain with and without contrast March 23, 2024 showed no acute process and no enhancement but there are focal areas of abnormal signal (T2/FLAIR) in the white matter and it is said that a demyelinating process cannot be excluded. -CK 34 -ESR 14, CRP not detected -MRI cervical spine with and without contrast March 25, 2024 shows a broad-based disc bulge with central disc extrusion at C3-4 with some focal mass effect on the cervical cord at that level but there is still a thin area of cerebrospinal fluid posterior to the cord and there is no underlying cord edema. Nothing concerning for demyelinating lesions new or old. Nothing enhancing -CSF from March 25, 2024: Traumatic tap, RBCs 3051 on tube 3, total nucleated cells 3 on tube 3, glucose 72, protein 84, infectious PCR panel all negative ASSESSMENT: Progressive bilateral distal upper extremity weakness starting in late December 2023. His wrist and hand weakness is very significant bilaterally, worse on the left than the right. At this point based on his exam and the updated MR cervical imaging I do not think the cervical spinal cord or nerve roots can be implicated for the bilateral upper extremity weakness. The nonenhancing nonspecific white matter areas clustered in the parietal white matter near the posterior horns of the lateral ventricles bilaterally is of unclear significance. There are some other scattered white matter changes in bilateral cerebral hemispheres as well. But overall this does not seem consistent with demyelinating disease. There is some CSF lab work pertaining topotential demyelination still pending. The lumbar puncture ruled out any sort of infectious process. He has moderatelyelevated protein in the CSF is otherwise pretty bland. Despite the elevated protein my suspicion for an acute or chronic inflammatory demyelinating polyradiculoneuropathy remains low. He still has reflexes present but hypoactive in the upper extremities. The weakness, hyperreflexia, and fasciculations are all more suggestive of a lower motor neuron process. I do not find any upper motor neuron exam findings but I think motor neuron disease has to remain on the differential. PLAN: 1. Pending CSF lab work: Oligoclonal bands, IgG synthesis rate, myelin basic protein 2. Pending serum lab work: Lyme serology 3. Outpatient ongoing occupational therapy 4. He will need seen in outpatient neurology clinic to go over the remaining pending lab results, ideally in 1 to 2 weeks. I think he needs repeat EMG of the upper extremities given the progressive weakness and the presence of fasciculations. I think he will need close follow-up because motor neuron disease remains on the differential. 5. Okay for discharge from my standpoint Documented By: Danial Horan DO 03/25/24 1352 Signed By: <Electronically signed by Danial Horan DO> 03/25/24 8063 [facility] Work Phone: 1(571) 642-281607-28-2024 Progress note Author Danial Horan [facility] March 24, 2024 1:33pm Note Date/Time March 24, 2024 1:33 pm [facility] [address] [place] [address] Neurology Progress Note Signed Patient: Bhumika Umana JR MR#: [id number] : 1975 Acct:[id number] Age/Sex: 48 / M Adm Date: 4 Loc: 3T Room: [address] [place] [address] Type: ADM IN Attending Dr: Elder Iyer MD Copies to: ~ Date of Service: 03/24/2024 Exam Physical Exam Vital Signs: Temp Pulse Resp BP Pulse Ox O2 Del Method 98.0 F 75 17 103/70 96 Room Air 03/24/24 08:00 03/24/24 12:00 03/24/24 12:00 03/24/24 12:00 03/24/24 12:00 03/24/24 12:00 Objective Vital Signs Vital Signs: Vital Signs - 24 hr 03/23/24 16:00 03/23/24 21:11 03/23/24 21:11 Temperature 97.8 F Pulse Rate 95 95 Respiratory Rate 17 16 Blood Pressure 143/83 H 118/78 02 Sat by Pulse Oximetry 96 95 Oxygen Delivery Method Room Air Room Air Room Air 03/24/24 00:42 03/24/24 05:54 03/24/24 08:00 Temperature 97.4 F L 98.0 F Pulse Rate 55 L 87 Respiratory Rate 18 18 17 Blood Pressure 101/60 115/79 02 Sat by Pulse Oximetry 98 95 Oxygen Delivery Method Room Air Room Air 03/24/24 08:00 03/24/24 12:00 Temperature Pulse Rate 75 Respiratory Rate 17 Blood Pressure 103/70 02 Sat by Pulse Oximetry 96 Oxygen Delivery Method Room Air Room Air Labs 03/24/24 06:27 03/24/24 06:27 Lab Results: 03/23/24 14:30: ESR 14 Therapy Recommendations Therapy Recommendations: OT Recommendations OT Recommended Discharge Home with Outpatient Location OT Recommended Services at Occupational Therapy Discharge PT Recommendations DC Physical Therapy Due To: No Skilled PT Needs,At Baseline PT Recommended Discharge Home Location Assessment/Plan (1) Upper extremity weakness: Plan CONSULT REASON: Unable to move both arms INTERIM: His hands feel significantly worse today compared to yesterday for no clear reason. He says a big problem is fatigability and as soon as he does something with his hands a feel too weak to do something else. No new symptoms to report today. EXAMINATION: In no distress. No deformities or trauma. Limbs seem well-perfused. No significant edema. Normal work of breathing. Visualized skin is generally intact and without lesions. Affect normal. Patient is alert and generally oriented. Attention normal. Speech is fluent and nondysarthric. Pupils are equal and reactive. Ocular motility is full. No nystagmus. Facial sensation is normal. Hearing is normal. Facial strength is normal. Tongue is midline. Muscle bulk seems normal. Muscle tone seems normal. He seems to have full strength in the bilateral lower extremities. Bilateral shoulder flexion and abduction are +5/5 but appears more effortful to him than would be expected. Seems to still have full strength with bilateral elbow flexion/extension. He has +2/5 bilateral wrist extension, +4/5 bilateral wrist flexion, +2/5 bilateralfinger extension, +4/5 bilateral educational assistant strength, +3/5 finger abduction bilaterally. No tremors. Reflexes are either trace or absent in the upper extremities. He has normal bilateral patellar reflexes. Light touch is normal. Vibratory sensation is intact throughout. No limb dysmetria or ataxia. DATA REVIEW: -MRI brain with and without contrast showed no acute process and no enhancement but there are focal areas of abnormal signal (T2/FLAIR) in the white matter and it is said that a demyelinating process cannot be excluded. -CK 34 -ESR 14, CRP not detected ASSESSMENT: Progressive bilateral distal upper extremity weakness starting in late December 2023. His wrist and hand weakness is very significant bilaterally, worse on the left than the right. Symptom distribution could raise concern for central cervical cord lesion or process but I cannot see any central cord signal change on his existing MRI images. He does have a central protruding C3-4 disc that looks to be causing severe central canal stenosis with borderline cord compression; I think it lookssignificantly worse than the outside MRI report depicts. Isolated to the upper extremities he seems to have loss of reflexes and weakness, lower motor neuron signs, so consider bilateral issues with multiple cervical nerve roots or upper extremity peripheral nerves, though this seems unlikely. Consider Lyme. Consider outlet syndrome? A better look at the cervical neuroforaminal spaces would be nice. Unlikely to represent myopathy as he seemingly has no significant proximal issues in upper or lower extremities. Inclusion body myositis might be something to keep on the radar. Nerve conduction studies and electromyography from mid February were reportedly pretty normal. This would be a pretty atypical presentation for any acute/chronic inflammatory polyradiculoneuropathy. The MRI of his brain revealed a moderate amount of patchy changes, especially inthe biparietal periventricular white matter, and demyelinating disease such as multiple sclerosis would be a consideration. And the bilateral nature of these could hypothetically contribute to bilateral distal upper extremity weakness. However, none of them are enhancing, and I would have expected signs of active demyelination given that his symptoms seemed so much worse yesterday. The cervical cord can be assessed for any lesions that might fit with a demyelinating syndrome. PLAN: 1. MRI cervical spine with and without contrast. Need a better resolution study 3 Parisa magnet with a second interpretation and need to make sure there isnothing enhancing. 2. Pending serum lab work: Lyme serology 3. Occupational Therapy 4. Lumbar puncture for analysis of potential demyelination disorder, checking cell counts, protein, PCR, IgG synthesis rate, oligoclonal bands, myelin basic protein. I palpated his lumbar spine and do not have good landmarks to do the procedure bedside blindly. Will request for IR. Documented By: Danial Horan DO 03/24/24 1330 Signed By: <Electronically signed by Danial Horan DO> 03/24/24 1333 [facility] Work Phone: 1(776) 226-993607-28-2024 Progress note Author Elder Iyer [facility] March 24, 2024 11:01am Note Date/Time March 24, 2024 11:0 1am [facility] [address] [place] [address] Hospitalist Progress Note Signed Patient: Bhumika Umana JR MR#: [id number] : 1975 Acct:[id number] Age/Sex: 48 / M Adm Date: 4 Loc: Room: [address] [place] [address] Type: ADM IN Attending Dr: Elder Iyer MD Copies to: ~ Date of Service: 03/24/2024 Subjective Subjective Narrative: Patient seen and examined at bedside. He still complains of this weakness over his hands. He states that he cannot hold his fork in the morning when I tried to shake my hands with him he could not squeeze my hand completely both sides. He does not have any other symptoms. Neurology is following patient scheduled for an MRI cervical spine tomorrow. Exam Physical Exam Vital Signs: Temp Pulse Resp BP Pulse Ox O2 Del Method 98.0 F 87 17 115/79 95 Room Air 03/24/24 08:00 03/24/24 08:00 03/24/24 08:00 03/24/24 08:00 03/24/24 08:00 03/24/24 08:00 Narrative: General: comfortable in bed, not in acute distress, pleasant and cooperative HEENT: Neck is supple, no lymphadenopathy, no JVD Chest: Good bilateral air entry, no wheezes or crackles CVS: Normal S1 and S2, no murmurs, regular Chest: Good bilateral air entry, no wheezes or crackles, pt is not in respiratory distress Abdomen: Soft, non tender, no organomegaly Neuro: Alert and oriented x3, following commands, cranial nerves are intact II- VII, no fasciculations, motor strength in his proximal muscles is 5/5, however he has weakness in his hands where he can't make a educational assistant, mentions that he could not hold a fork this am pretty similar to yesterday's exam maybe slightly worse,sensation is normal over the bilateral upper extremities. There is normal motor and sensory findings over the lower extremities bilaterally Objective Lab Results 03/24/24 06:27 03/24/24 06:27 Meds Allergies and Active Meds Allergies almond Allergy (Intermediate, Verified 03/23/24 06:23) Hives cashew nut Allergy (Intermediate, Verified 03/23/24 06:23) Hives Penicillins Allergy (Unknown, Verified 03/23/24 06:23) rash. vomiting, when he was kid adhesive tape Adverse Reaction (Severe, Verified 03/23/24 06:23) Unknown Reaction Active Meds: Active Medications Generic Name Dose Route Start Last Admin Trade Name Freq PRN Reason Stop Dose Admin Acetaminophen 650 mg 03/23/24 02:10 Acetaminophen 325 Mg Tablet PO 03/23/25 02:09 Q6HR PRN Pain Scale 1 - 3 or fever Amitriptyline HCl 10 mg 03/23/24 02:13 Amitriptyline 10 Mg Tablet PO 03/23/25 02:12 QHS PRN sleep Atorvastatin Calcium 10 mg 03/23/24 22:00 03/23/24 21:18 Atorvastatin 10 Mg Tablet PO 03/23/25 21:59 10 mg QHS FARZANEH Administration Citalopram Hydrobromide 40 mg 03/23/24 09:00 03/24/24 09:41 Citalopram 40 Mg Tablet PO 03/23/25 08:59 40 mg DAILY FARZANEH Administration Dextrose 0 gm 03/23/24 01:41 Dextrose 50% In Water 25 Gm/50 Ml Syringe IV-PUSH 03/23/25 01:40 PRN PRN Hypoglycemia Empagliflozin 10 mg 03/23/24 08:00 03/24/24 09:40 Empagliflozin 10 Mg Tablet PO 03/23/25 07:59 10 mg DAILY@0800 FARZANEH Administration Fluticasone Propionate 2 spray 03/23/24 22:00 03/23/24 21:18 Fluticasone Propionate Warren 120 Warren/16 Gm Bottle NARES-BOTH 03/23/25 21:59 Not Given QHS FARZANEH Gabapentin 300 mg 03/23/24 09:00 03/24/24 09:40 Gabapentin 300 Mg Capsule PO 03/23/25 08:59 300 mg BID FARZANEH Administration Glucose 0 gm 03/23/24 01:41 Dextrose 40% Gel 15 Gm Tube PO 03/23/25 01:40 PRN PRN Hypoglycemia Heparin Sodium (Porcine) 5,000 unit 03/23/24 06:00 03/24/24 05:55 Heparin 5,000 Unit/Ml Vial SUBCUT 03/23/25 05:59 5,000 unit Q8HR FARZANEH Administration Hydrochlorothiazide 25 mg 03/23/24 09:00 03/24/24 09:42 Hydrochlorothiazide 25 Mg Tablet PO 03/23/25 08:59 25 mg DAILY FARZANEH Administration Insulin Aspart 0 units 03/23/24 08:00 03/24/24 09:37 Insulin Aspart 300 Units/3 Ml Insuln.Pen SUBCUT 03/23/25 07:59 Not Given TID.WM.HS [facility] Protocol Lisinopril 20 mg 03/23/24 09:00 03/24/24 09:41 Lisinopril 20 Mg Tablet PO 03/23/25 08:59 20 mg DAILY FARZANEH Administration Loratadine 10 mg 03/23/24 09:00 03/24/24 09:42 Loratadine 10 Mg Tablet PO 03/23/25 08:59 10 mg DAILY FARZANEH Administration Naproxen 500 mg 03/23/24 08:00 03/24/24 09:41 Naproxen 500 Mg Tablet PO 03/23/25 07:59 500 mg BID.WITH.BFAST.SUPPE FARZANEH Administration Pioglitazone HCl 30 mg 03/23/24 08:00 03/24/24 09:41 Pioglitazone 30 Mg Tablet PO 03/23/25 07:59 30 mg DAILY@0800 FARZANEH Administration Sodium Chloride 0 ml 03/23/24 00:15 Sodium Chloride 0.9 % 10 Ml Syringe IV-PUSH 03/23/25 00:14 PRN PRN Flush Tizanidine HCl 4 mg 03/23/24 02:13 Tizanidine 4 Mg Tablet PO 03/23/25 02:12 QHS PRN pain A&P - Hospitalist Assessment/Plan (1) Upper extremity weakness: (2) Diabetes: (3) HTN (hypertension): Plan Assessment: Progressive upper extremity weakness, rule out rheumatologic vs demyelinating lesions Multiple Cervical disc herniation -Pt reports worsening of his bilateral worsening in his hand educational assistant this am -He is off steroids -His MRI of brain showed patchy changes, especially in the biparietal periventricular white matter, -Pt will need repeat of the MRI cervical spine with and without contrast here [facility], will need better resolution study 3 parisa magnet with a second interpretation as per neurology -May need an LP down the line, not sure if it's inpatient or outpatient, will reassess -Follow up on check CK, ESR, CRP, and lyme disease ESR 14, CRP <0.5, CK 34, and lyme disease pending -PT/OT input noted -Neuro following Type 2 diabetes with hyperglycemia -Will start insulin sliding scale while here (a1c is 7.4) Aspirin is on hold for anticipated LP on Monday Continue rest of his current management and outpatient regimen Spoke to pt in details about this plan of management. Time Spent With Patient (min): 45 Documented By: Elder Iyer MD 03/24/24 1056 Signed By: <Electronically signed by Elder Iyer MD> 03/24/24 1101 [facility] Work Phone: [phone]) 630-845007-27-2024 Progress note Author Elder Iyer [facility] March 23, 2024 2:33pm Note Date/Time March 23, 2024 2:33 pm [facility] [address] [place] [address] Hospitalist Progress Note Signed Patient: Bhumika Umana JR MR#: [id number] : 1975 Acct:[id number] Age/Sex: 48 / M Adm Date: 4 Loc: 3T Room: [address] [place] [address] Type: ADM IN Attending Dr: Elder Iyer MD Copies to: ~ Date of Service: 03/23/2024 Subjective Subjective Narrative: Seen and examined pt at bedside, Reports improvement in his bilateral hand numbness and weakness, still is not able to have a complete grasp of things or squeeze my arm strong enough. His MRI cervical spine, and MRI brain were reviewed today: Cervical spine MRI done in [place]: The MRI of the cervical spine is read as having moderate disc space narrowing throughout the cervical spine. At C3-C4 there is central disc extrusion which causes moderate central canal stenosis. The neuroforamen are patent bilaterally. This is the worst level. At C4-C5 there is a central disc protrusion that does not cause central canal stenosis. There is again a central disc protrusion at C5-C6. MRI brain with and without contrast done here at [facility]: Focal areas of abnormal signal are seen on the T2 and T2 FLAIR imaging within the white matter. Given the patient's age, this finding is nonspecific and a demyelinating process cannot BE excluded. Neurology saw the pt and is following with him Exam Physical Exam Vital Signs: Temp Pulse Resp BP Pulse Ox O2 Del Method 97.7 F 89 18 137/78 97 Room Air 03/23/24 08:00 03/23/24 12:00 03/23/24 12:00 03/23/24 12:00 03/23/24 12:00 03/23/24 08:00 Narrative: General: comfortable in bed, not in acute distress, pleasant and cooperative HEENT: Neck is supple, no lymphadenopathy, no JVD Chest: Good bilateral air entry, no wheezes or crackles CVS: Normal S1 and S2, no murmurs, regular Chest: Good bilateral air entry, no wheezes or crackles, pt is not in respiratory distress Abdomen: Soft, non tender, no organomegaly Neuro: Alert and oriented x3, following commands, cranial nerves are intact II- VII, no fasciculations, motor strength in his proximal muscles is 5/5, however he has weakness in his hands and 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 There is normal motor and sensory findings over thelower extremities bilaterally Objective Lab Results 03/23/24 00:52 03/23/24 06:17 Meds Allergies and Active Meds Allergies almond Allergy (Intermediate, Verified 03/23/24 06:23) Hives cashew nut Allergy (Intermediate, Verified 03/23/24 06:23) Hives Penicillins Allergy (Unknown, Verified 03/23/24 06:23) rash. vomiting, when he was kid adhesive tape Adverse Reaction (Severe, Verified 03/23/24 06:23) Unknown Reaction Active Meds: Active Medications Generic Name Dose Route Start Last Admin Trade Name Janna PRN Reason Stop Dose Admin Acetaminophen 650 mg 03/23/24 02:10 Acetaminophen 325 Mg Tablet PO 03/23/25 02:09 Q6HR PRN Pain Scale 1 - 3 or fever Amitriptyline HCl 10 mg 03/23/24 02:13 Amitriptyline 10 Mg Tablet PO 03/23/25 02:12 QHS PRN sleep Atorvastatin Calcium 10 mg 03/23/24 22:00 Atorvastatin 10 Mg Tablet PO 03/23/25 21:59 QHS FARZANEH Citalopram Hydrobromide 40 mg 03/23/24 09:00 03/23/24 09:11 Citalopram 40 Mg Tablet PO 03/23/25 08:59 40 mg DAILY FARZANEH Administration Dextrose 0 gm 03/23/24 01:41 Dextrose 50% In Water 25 Gm/50 Ml Syringe IV-PUSH 03/23/25 01:40 PRN PRN Hypoglycemia Empagliflozin 10 mg 03/23/24 08:00 03/23/24 09:10 Empagliflozin 10 Mg Tablet PO 03/23/25 07:59 10 mg DAILY@0800 FARZANEH Administration Fluticasone Propionate 2 spray 03/23/24 22:00 Fluticasone Propionate Warren 120 Warren/16 Gm Bottle NARES-BOTH 03/23/25 21:59 QHS FARZANEH Gabapentin 300 mg 03/23/24 09:00 03/23/24 09:11 Gabapentin 300 Mg Capsule PO 03/23/25 08:59 300 mg BID FARZANEH Administration Glucose 0 gm 03/23/24 01:41 Dextrose 40% Gel 15 Gm Tube PO 03/23/25 01:40 PRN PRN Hypoglycemia Heparin Sodium (Porcine) 5,000 unit 03/23/24 06:00 03/23/24 06:05 Heparin 5,000 Unit/Ml Vial SUBCUT 03/23/25 05:59 5,000 unit Q8HR FARZANEH Administration Hydrochlorothiazide 25 mg 03/23/24 09:00 03/23/24 09:12 Hydrochlorothiazide 25 Mg Tablet PO 03/23/25 08:59 25 mg DAILY FARZANEH Administration Insulin Aspart 0 units 03/23/24 08:00 03/23/24 12:48 Insulin Aspart 300 Units/3 Ml Insuln.Pen SUBCUT 03/23/25 07:59 3 units TID.WM.HS FARZANEH Administration Protocol Lisinopril 20 mg 03/23/24 09:00 03/23/24 09:11 Lisinopril 20 Mg Tablet PO 03/23/25 08:59 20 mg DAILY FARZANEH Administration Loratadine 10 mg 03/23/24 09:00 03/23/24 09:12 Loratadine 10 Mg Tablet PO 03/23/25 08:59 10 mg DAILY FARZANEH Administration Naproxen 500 mg 03/23/24 08:00 03/23/24 09:36 Naproxen 500 Mg Tablet PO 03/23/25 07:59 500 mg BID.WITH.BFAST.SUPPE FARZANEH Administration Pioglitazone HCl 30 mg 03/23/24 08:00 03/23/24 09:11 Pioglitazone 30 Mg Tablet PO 03/23/25 07:59 30 mg DAILY@0800 FARZANEH Administration Prednisone 20 mg 03/23/24 09:00 03/23/24 09:36 Prednisone 10 Mg Tablet PO 03/25/24 09:01 20 mg DAILY FARZANEH Administration Prednisone 10 mg 03/26/24 09:00 Prednisone 10 Mg Tablet PO 03/28/24 09:01 DAILY FARZANEH Sodium Chloride 0 ml 03/23/24 00:15 Sodium Chloride 0.9 % 10 Ml Syringe IV-PUSH 03/23/25 00:14 PRN PRN Flush Tizanidine HCl 4 mg 03/23/24 02:13 Tizanidine 4 Mg Tablet PO 03/23/25 02:12 QHS PRN pain A&P - Hospitalist Assessment/Plan (1) Upper extremity weakness: (2) Diabetes: (3) HTN (hypertension): Plan Assessment: Progressive upper extremity weakness, rule out rheumatologic vs demyelinating lesions Multiple Cervical disc herniation -Pt reports improvement of the symptoms -Spoke with Dr. Horan, does not believe steroids would be of benefit here as ptis not acutely having symptoms -His MRI of brain showed patchy changes, especially in the biparietal periventricular white matter, -[place] [facility] [place] [facility] [place] better resolution study 3 parisa mgnet with a second interpretation as per neurology -May need an LP down the line, not sure if it's inpatient or outpatient, will reassess -Will check CK, ESR, CRP, and lyme disease -PT/OT Type 2 diabetes with hyperglycemia -Will start insulin sliding scale while here (a1c is 7.4) Aspirin is on hold for anticipated LP on Monday? Continue rest of his current management and outpatient regimen Spoke to pt in details about this plan of management. Time Spent With Patient (min): 50 Documented By: Elder Iyer MD 03/23/24 1417 Signed By: <Electronically signed by Elder Iyer MD> 03/23/24 2003 [facility] Work Phone: [phone]) 224-359607-27-2024 Consult note Author Danial Horan [facility] March 23, 2024 1:05pm Note Date/Time March 23, 2024 11:3 9am [facility] [address] [place] [address] Neurology Consult Note Signed Patient: Bhumika Umana JR MR#: [id number] : 1975 Acct:[id number] Age/Sex: 48 / M Adm Date: 4 Loc: Room: [address] [place] [address] Type: ADM IN Attending Dr: Elder Iyer MD Copies to: DO Cecy Aguirre, BAND DIRECTOR-C Elder Iyer MD~ HPI Consult Date: 03/23/24 Boxing Instructor: Danial Horan DO [facility] Medical History (Updated 03/23/24 @ 02:25 by Bola Garcia DO) Depressed Acute rheumatoid arthritis Diabetes HTN (hypertension) Surgical History History of tonsillectomy and adenoidectomy Family History Father Myocardial infarction Heart disease Mother Family history of colon cancer [facility] Problem: Diagnosed with Cancer Hypertension Social History Smoking Status: Former smoker Tobacco Type: cigarettes Substance Use Type: None Meds Medications and Allergies Allergies almond Allergy (Intermediate, Verified 03/23/24 06:23) Hives cashew nut Allergy (Intermediate, Verified 03/23/24 06:23) Hives Penicillins Allergy (Unknown, Verified 03/23/24 06:23) rash. vomiting, when he was kid adhesive tape Adverse Reaction (Severe, Verified 03/23/24 06:23) Unknown Reaction Home Medications amitriptyline 10 mg tablet 10 mg PO DAILY 03/23/24 [History Confirmed 03/23/24] aspirin 81 mg chewable tablet 1 tab PO DAILY 03/23/24 [History Confirmed 03/23/24] citalopram 40 mg tablet 40 mg PO DAILY 03/23/24 [History Confirmed 03/23/24] dapagliflozin propanediol 5 mg tablet (Farxiga) 10 mg PO DAILY 03/23/24 [History Confirmed 03/23/24] fluticasone propionate 50 mcg/actuation nasal spray,suspension 2 spray intranasal QHS 03/23/24 [History Confirmed 03/23/24] gabapentin 300 mg capsule 300 mg PO .bid 03/23/24 [History Confirmed 03/23/24] lisinopril 20 mg-hydrochlorothiazide 25 mg tablet 1 tab PO DAILY 03/23/24 [History Confirmed 03/23/24] loratadine 10 mg tablet (Allergy Relief (loratadine)) 10 mg PO DAILY 03/23/24 [History Confirmed 03/23/24] meloxicam 15 mg tablet 15 mg PO DAILY 03/23/24 [History Confirmed 03/23/24] metformin 1,000 mg tablet 1,000 mg PO .bid 03/23/24 [History Confirmed 03/23/24] pioglitazone 30 mg tablet 30 mg PO DAILY 03/23/24 [History Confirmed 03/23/24] prednisone 10 mg tablet 30 mg PO DAILY 03/23/24 [History Confirmed 03/23/24] simvastatin 20 mg tablet 20 mg PO QHS 03/23/24 [History Confirmed 03/23/24] tizanidine 4 mg tablet 4 mg PO QHS PRN pain 03/23/24 [History Confirmed 03/23/24] Exam Physical Exam Vital Signs: Temp Pulse Resp BP Pulse Ox O2 Del Method 97.7 F 58 L 20 149/83 H 94 L Room Air 03/23/24 08:00 03/23/24 08:00 03/23/24 08:00 03/23/24 08:00 03/23/24 08:00 03/23/24 08:00 Results - Neuro Laboratory Findings 03/23/24 00:52 03/23/24 06:17 Diagnostic Findings Imaging/Impressions: ITS Impressions Chest X-Ray 03/23/24 00:24 IMPRESSION: NO ACUTE CARDIOPULMONARY ABNORMALITY. Impression dictated by: Rene Gonzales Jr., D.O.03/23/2024 9:33 AM Dictation Location: [facility] Brain MRI 03/23/24 02:09 Impression: No acute process. No abnormal enhancement. Focal areas of abnormal signal are seen on the T2 and T2 FLAIR imaging within the white matter. Given the patient's age, this finding is nonspecific and a demyelinating process cannot BE excluded. Impression dictated by: Rene Gonzales Jr., D.O.03/23/2024 10:46 AM Dictation Location: [facility] Therapy Recommendations Therapy Recommendations: PT Recommendations DC Physical Therapy Due To: No Skilled PT Needs,At Baseline PT Recommended Discharge Home Location Assessment/Plan (1) Upper extremity weakness: Plan CONSULT REASON: Unable to move both arms HPI: 48-year-old right-handed man. He says he woke up one day in the end of December and noticed tingling and pins and needle paresthesias in his fingertips bilaterally and ever since then he has been having progressive distal upper extremity dysfunction. The left upper extremity feels worse than the right upper extremity. Despite the paresthesias his sensation seems to be largely intact. The feeling is uncomfortable but he would not consider it painful. He is unable to extend his fingers fully on either hand. He cannot fully spreadhis fingers. His pinch and his grasp is weak bilaterally. It has been causing him progressive functional issues, with issues opening things, feeding himself, operating his phone, and writing. It sounds like he might be having some proximal weakness that is developing. It is not a major symptom for him at lifting his arms does seem to be getting slightly more difficult. He said he had EMG studies in mid January and it sounds like it was Dr. Cardenas that did him and at the time of the study it was indicated to him that it looked pretty good but he has not heard about the official results of the EMG and does not have follow-up with neurology until April 03. He also had an MRI of his cervical spine and the report mentions C3-4 central disc extrusion which causes moderate central canal stenosis and patent neuroforaminal spaces bilaterally and some other degenerative changes at other levels. These images were scanned into PACS and I am able to review them into me the focal disc protrusion centrally at C3-4 looks to cause severe central canal stenosis and borderline spinal cord compression at that level. Yesterday was much worse for what ever reason. He was having difficulty liftingup his small dog, putting on his close, etc. He went to the [place] emergency department to be evaluated and had to sign some for there and had used two handsto manipulate the pen. The [place] emergency department called me overnight and told me about him. They said he had a pretty normal-looking MRI of his cervical spine and did not know what to do next, but his hands were pretty well to the point he is having difficulty at home. So I said the next place to look would be brain tissue. And they told me they could not do MRI there. So he was transferred here. He says he has history of rheumatoid arthritis but it somehow disappeared with COVID and that more recently there is suspicion for Sjogren's based on some labwork and his symptoms of dry eyes and dry mouth. He says he has ultrasound of his parotid glands pending somewhere. EXAMINATION: In no distress. No deformities or trauma. Limbs seem well-perfused. No significant edema. Normal work of breathing. Visualized skin is generally intact and without lesions. Affect normal. Patient is alert and generally oriented. Attention normal. Speech is fluent and nondysarthric. Pupils are equal and reactive. Ocular motility is full. No nystagmus. Facial sensation is normal. Hearing is normal. Facial strength is normal. Tongue is midline. Muscle bulk seems normal. Muscle tone seems normal. He seems to have full strength in the bilateral lower extremities. Bilateral shoulder flexion and abduction are +5/5 but appears more effortful to him than would be expected. Seems to still have full strength with bilateral elbow flexion/extension. He has +2/5 bilateral wrist extension, +4/5 bilateral wrist flexion, +2/5 bilateralfinger extension, +4/5 bilateral educational assistant strength, +3/5 finger abduction bilaterally. No tremors. Reflexes are either trace or absent in the upper extremities. He has normal bilateral patellar reflexes. Light touch is normal. Vibratory sensation is intact throughout. No limb dysmetria or ataxia. DATA REVIEW: -MRI brain with and without contrast showed no acute process and no enhancement but there are focal areas of abnormal signal (T2/FLAIR) in the white matter and it is said that a demyelinating process cannot be excluded. ASSESSMENT: Progressive bilateral distal upper extremity weakness starting in late December 2023. His wrist and hand weakness is very significant bilaterally, worse on the left than the right. Symptom distribution could raise concern for central cervical cord lesion or process but I cannot see any central cord signal change on his existing MRI images. He does have a central protruding C3-4 disc that looks to be causing severe central canal stenosis with borderline cord compression; I think it lookssignificantly worse than the outside MRI report depicts. Isolated to the upper extremities he seems to have loss of reflexes and weakness, lower motor neuron signs, so consider bilateral issues with multiple cervical nerve roots or upper extremity peripheral nerves, though this seems unlikely. Consider Lyme. Consider outlet syndrome? A better look at the cervical neuroforaminal spaces would be nice. Unlikely to represent myopathy as he seemingly has no significant proximal issues in upper or lower extremities. Inclusion body myositis might be something to keep on the radar. Nerve conduction studies and electromyography from mid February were reportedly pretty normal. This would be a pretty atypical presentation for any acute/chronic inflammatory polyradiculoneuropathy. The MRI of his brain revealed a moderate amount of patchy changes, especially inthe biparietal periventricular white matter, and demyelinating disease such as multiple sclerosis would be a consideration. And the bilateral nature of these could hypothetically contribute to bilateral distal upper extremity weakness. However, none of them are enhancing, and I would have expected signs of active demyelination given that his symptoms seemed so much worse yesterday. The cervical cord can be assessed for any lesions that might fit with a demyelinating syndrome. PLAN: 1. MRI cervical spine with and without contrast. Need a better resolution study 3 Parisa magnet with a second interpretation and need to make sure there isnothing enhancing. 2. Checking a CK, ESR, CRP, and Lyme serology 3. Occupational Therapy 4. If we can confirm that there is no acute cervical spinal pathology that he can be discharged from my standpoint with follow-up in neurology clinic Documented By: Danial Horan DO 03/23/24 1136 Signed By: <Electronically signed by Danial Horan DO> 03/23/24 1307 [facility] Work Phone: 1(644) 263-813807-27-2024 History and physical note Author Bola Garcia [facility] March 23, 2024 2:28am Note Date/Time March 23, 2024 2:28 am [facility] [address] [place] [address] Hospitalist H&P Signed Patient: Bhumika Umana JR MR#: [id number] : 1975 Acct:[id number] Age/Sex: 48 / M Adm Date: 4 Loc: Room: [address] [place] [address] Type: ADM IN Attending Dr: Bola Garcia DO Copies to: DO Cecy Watson NP-C~ HPI DATE OF EXAMINATION: 03/23/24 CHIEF COMPLAINT: Worsening weakness of both upper extremities. HISTORY OF PRESENT ILLNESS: This is a 48-year-old man who was sent to the emergency room at [facility] from the emergency room at [facility] as a ED to ED transfer at the request of the neurologist. He has been having problems recently with worsening weakness to both upper extremities. He had an episode like this in December where he had trouble getting both of his hands to work correctly and he took some steroids at that time and gotbetter. Over the last few days he has had recurrence of this weakness to both upper extremities but is much worse. He cannot lift up his dog. He began dropping things such as a cup and a plate. He now is noticing difficulty doing simple activities such as turning a doorknob to open the door. He was started on prednisone 2 days ago by the [place] ER. In [place] he has had a workup including a CT scan of his cervical spine and then an MRI of his cervical spine performed on March 19, 2024. Contact was made with the neurologist who felt thatthe patient should be brought over here to [facility] so he can get an MRI scan of the brain. The MRI of the cervical spine is read as having moderate disc space narrowing throughout the cervical spine. At C3-C4 there is central disc extrusion which causes moderate central canal stenosis. The neuroforamen are patent bilaterally. This is the worst level. At C4-C5 there is a central disc protrusion that does not cause central canal stenosis. There is again a centraldisc protrusion at C5-C6. Labs were done in the emergency room and his white blood count is elevated whichis consistent with being on prednisone for couple days. The chest x-ray showed no pneumonia. The patient has an uncertain rheumatologic history. He believes that he was diagnosed with rheumatoid arthritis when he was 23 years old. He describes taking Humira up until a time, about 5 years ago, when he got an infection from a splinter in his finger and had to spend a few days in the hospital getting IV antibiotics. I suspect that since that time he has not been on any biologic medications to control an autoimmune disease. It seems like he recently got established with [facility] real estate sales [facility] [place] who told himthat his situation was not consistent with rheumatoid arthritis and workup has been started for Sjogren's. Past Medical History: Patient does have a lot of diabetes taking Farxiga, metformin, and Actos. The patient states he has lost weight on this regimen. He also takes gabapentin that was prescribed over the last week, Celexa, amitriptyline, and aspirin 81 mgdaily. Past surgical history: He states his only surgery was a tonsillectomy and adenoidectomy when he was a young child. Social history: He quit smoking at the age of 36. He smoked off and on for about 10 years. He denies alcohol use. Review of Systems Review of Systems Review of systems: 10 systems are reviewed and are negative except as mentioned elsewhere in the documentation. [facility] Medical History (Updated 03/23/24 @ 02:25 by Bola Garcia DO) Depressed Acute rheumatoid arthritis Diabetes HTN (hypertension) Surgical History History of tonsillectomy and adenoidectomy Family History Father Myocardial infarction Heart disease Mother Family history of colon cancer [facility] Problem: Diagnosed with Cancer Hypertension Social History Smoking Status: Former smoker Tobacco Type: cigarettes Substance Use Type: None Meds Medications and Allergies Allergies Penicillins Allergy (Unknown, Verified 03/23/24 00:10) rash. when he was kid Home Medications amitriptyline 10 mg tablet 10 mg PO QHS PRN sleep 03/23/24 [History Confirmed 03/23/24] aspirin 81 mg chewable tablet 1 tab PO DAILY 03/23/24 [History Confirmed 03/23/24] citalopram 40 mg tablet 40 mg PO DAILY 03/23/24 [History Confirmed 03/23/24] dapagliflozin propanediol 5 mg tablet (Richardxiga) 5 mg PO DAILY 03/23/24 [History Confirmed 03/23/24] fluticasone propionate 50 mcg/actuation nasal spray,suspension 2 spray intranasal QHS 03/23/24 [History Confirmed 03/23/24] gabapentin 300 mg capsule 300 mg PO .bid 03/23/24 [History Confirmed 03/23/24] lisinopril 20 mg-hydrochlorothiazide 25 mg tablet 1 tab PO DAILY 03/23/24 [History Confirmed 03/23/24] loratadine 10 mg tablet (Allergy Relief (loratadine)) 10 mg PO DAILY 03/23/24 [History Confirmed 03/23/24] meloxicam 15 mg tablet 15 mg PO DAILY 03/23/24 [History Confirmed 03/23/24] metformin 1,000 mg tablet 1,000 mg PO .bid 03/23/24 [History Confirmed 03/23/24] pioglitazone 30 mg tablet 30 mg PO DAILY 03/23/24 [History Confirmed 03/23/24] prednisone 10 mg tablet 30 mg PO DAILY 03/23/24 [History Confirmed 03/23/24] simvastatin 20 mg tablet 20 mg PO QHS 03/23/24 [History Confirmed 03/23/24] tizanidine 4 mg tablet 4 mg PO QHS PRN pain 03/23/24 [History Confirmed 03/23/24] Exam Physical Exam Vital Signs: Temp Pulse Resp BP Pulse Ox O2 Del Method 98.6 F 70 19 148/72 H 95 Room Air 03/23/24 00:10 03/23/24 01:56 03/23/24 01:02 03/23/24 01:01 03/23/24 01:02 03/23/24 01:02 Narrative: GEN: Awake, alert, oriented x 3 on the ER cot at 0200 with his mother at the bedside. Arms: He has collapsing strength to all of both arms, which is equal bilaterally, from the shoulders to the fingers at 3/5. Head: Normal Cephalic, Atraumatic. Eyes: Conjunctiva and sclera clear bilaterally. Nose: External nose and nares normal bilaterally. Mouth: Lips and tongue normal. Neck: No JVD. No thyromegaly. No lymphadenopathy. Lungs: Clear to auscultation bilaterally, no wheezing, no crackles. Heart: Regular rate and rhythm, no murmurs, rubs, or gallops. Abdomen: Soft, normal bowel sounds, no rigidity, guarding, or acute peritoneal signs. Extremities: No swelling or cords in the calves bilaterally, no edema in the ankles bilaterally. Skin: No systemic rashes or lesions. Psychiatric: Calm. Conversant. Cooperative. Results - Hospitalist H&P Lab Results Labs: Laboratory Last Values Corrected WBC 17.1 X10E3/uL (4.1-10.5) H 03/23/24 00:52 Uncorrected WBC Count 17.1 x10E3/uL (4.1-10.5) H 03/23/24 00:52 RBC 5.33 X10E6/uL (3.90-5.60) 03/23/24 00:52 Hgb 15.9 g/dL (13.0-17.0) 03/23/24 00:52 Hct 47.0 % (38.8-50.0) 03/23/24 00:52 MCV 88.1 fl (83.5-101) 03/23/24 00:52 MCH 29.8 pg (27.5-35.2) 03/23/24 00:52 MCHC 33.8 g/dL (32.5-35.6) 03/23/24 00:52 RDW 13.9 % (12.0-14.8) 03/23/24 00:52 Plt Count 381 x10E3/uL (150-450) 03/23/24 00:52 MPV 7.4 fl (6.6-10.1) 03/23/24 00:52 Neut % (Auto) 90.3 % (.) 03/23/24 00:52 Lymph % (Auto) 8.2 % (.) 03/23/24 00:52 Forsyth % (Auto) 1.0 % (.) 03/23/24 00:52 Eos % (Auto) 0.0 % (.) 03/23/24 00:52 Baso % (Auto) 0.5 % (.) 03/23/24 00:52 Nucleat RBC Rel Count 0.1 /100 WBC (0-0.5) 03/23/24 00:52 Neut # (Auto) 15.5 x10E3/uL (1.8-7.7) H 03/23/24 00:52 Lymph # (Auto) 1.4 x10E3/uL (1.00-4.8) 03/23/24 00:52 Forsyth # (Auto) 0.2 x10E3/uL (0.0-0.8) 03/23/24 00:52 Eos # (Auto) 0.0 x10E3/uL (0.0-0.45) 03/23/24 00:52 Baso # (Auto) 0.1 x10E3/uL (0.0-0.2) 03/23/24 00:52 Monocyte Dist Width Test not performed % (0.00-20.00) 03/23/24 00:52 PT 11.7 Seconds (9.0-12.9) 03/23/24 00:39 INR 1.0 03/23/24 00:39 APTT 22.2 Seconds (25.1-36.5) L 03/23/24 00:39 PHA Creatinine Clear 178.94 03/23/24 00:39 Sodium 133 mmol/L (136-145) L 03/23/24 00:39 Potassium 4.6 mmol/L (3.5-5.1) 03/23/24 00:39 Chloride 97 mmol/L (98-107) L 03/23/24 00:39 Carbon Dioxide 23.2 mmol/L (21.0-31.0) 03/23/24 00:39 Anion Gap 17.4 mEq/L (6.0-15.0) H 03/23/24 00:39 BUN 23 mg/dL (7-25) 03/23/24 00:39 Creatinine 0.82 mg/dL (0.70-1.30) 03/23/24 00:39 Est GFR (CKD-EPI) > 60.0 mL/Min 03/23/24 00:39 Glucose 342 mg/dL (70-100) H 03/23/24 00:39 Calcium 9.4 mg/dL (8.6-10.3) 03/23/24 00:39 Total Creatine Kinase 37 U/L (30-223) 03/23/24 00:39 Troponin I High Sens 3.3 pg/mL (0.0-20.0) 03/23/24 00:39 B-Natriuretic Peptide 27.0 pg/mL (5-100) 03/23/24 00:39 Assessment & Plan Assessment/Plan (1) Upper extremity weakness: (2) Diabetes: (3) HTN (hypertension): Plan Assessment: Progressive upper extremity weakness, etiology uncertain, requiring MRI scan of the brain. Diabetes mellitus with hyperglycemia, likely due to the recent initiation of corticosteroids. Chronic hypertension. Suspected rheumatologic disease of uncertain etiology. He was told this was rheumatoid arthritis in the past but I am told that the workup has now been pointed in the direction of Sjogren's. He has been established recently with a real estate sales associate out of the [facility] in [place]. Plan: MRI of the brain with and without contrast is ordered. Consult to neurology. Consult to physical therapy and Occupational Therapy. I discussed with the patient that I anticipate he will have hyperglycemia due tothe corticosteroids. I will put him on sliding scale insulin level 3. Check hemoglobin A1c. DVT prophylaxis with heparin 5000 units subcutaneously every 8 hours. Aspirin 81 mg daily as one of his home medications. I will place that on hold at this time in case he should need a lumbar puncture procedure. IP vs OBS Justification Based on differential dx, clinical care plan, and risk of adverse events, if untreated, in my clinical judgement this patient requires an acute care setting as: INPATIENT because of an expectation of an over 2 midnight stay. Estimated length of stay (# of days): 2 Documented By: Bloa Garcia DO 214 Signed By: <Electronically signed by Bola Garcia DO> 03/23/24227 [facility] Work Phone: 1([phone]) [phone] Evaluation note* Encounter Date Diagnosis Assessment Notes Treatment Notes Treatment Clinical Notes Sep, Contact with and (suspected) exposure [...] Patient care instructions given in writting by [facility] Care At Home document[facility] Other Discharge summary Author Simon Wolfe [facility] March 25, 2024 5:58pm Note Date/Time March 25, 2024 5:50 pm [facility] [address] [place] [address] Discharge Summary Signed Patient: Bhumika Umana JR MR#: [id number] : 1975 Acct:[id number] Age/Sex: 48 / M Adm Date: 4 Loc: Room: [address] [place] [address]: Simon Wolfe MD Copies to: MD Cecy Mcdowell, BAND DIRECTOR-C~ Providers Date of Discharge: 03/25/24 Discharging Provider: Simon Wolfe Primary Care Provider: Cecy Hernandez Consults: 03/23/24 01:41 Consult to Neurology Routine Comment: Consulting Provider: Danial Horan Reason For Exam: unable to move both arms Has Provider Been Notified: Yes Date of Notification: 03/23/24 Time of Notification: 09:57 03/23/24 02:10 Consult to Occupational Therapy Routine Comment: Physician Instructions: Consult to OT for:: Evaluation and Treat Consult to Physical Therapy Routine Comment: Physician Instructions: Consult to PT for:: Evaluation and Treat 03/23/24 13:04 Consult to Occupational Therapy Routine Comment: Physician Instructions: significant bilat distal UE weakness Consult to OT for:: Evaluation and Treat Discharge Diagnosis (1) Upper extremity weakness: (2) HTN (hypertension): (3) Diabetes: (4) Depressed: Final Diagnosis Final Discharge Diagnosis: As above Summary Hospital Course Hospital course: Mr. Umana is a 48yo M with PMH of RA,, T2DM, HTN, depressive disorder NOS who presents to the emergency department with complaints of worsening weakness of the bilateral upper extremities. Patient had an issue with this in December and was prescribed steroids which improved his symptoms. He had a recurrence of the symptoms and was dropping things such as a cup and a plate while eating. He haddifficulty turning doorknobs and opening the door. CT imaging of the cervical spine and then an MRI of the cervical spine were performed on 03/19/2024. MRI ofthe spine noted moderate disc space narrowing throughout the cervical spine. Patient is MRI of the brain which was performed during this hospitalization alsohad a moderate amount of patchy changes, especially in the biparietal periventricular white matter, making consideration for multiple sclerosis. Additional serologies including inflammatory markers, Lyme, lumbar puncture and MRI of the cervical spine with and without contrast were obtained as well. Repeat EMG of the upper extremities will likely need to be performed as an outpatient. He will follow-up with neurology on 04/09/2024 for further outpatient management. 35 minutes spent coordinating the discharge of this patient Time Spent with Patient Time spent providing/coordinating discharge services (# min): 35 Discharge Plan Discharge Plan Patient Disposition: Home Activity: No Activity Restriction Diet: Diabetic Instructions: Know your Meds Prescriptions: Continued amitriptyline 10 mg tablet 10 mg PO DAILY aspirin 81 mg tablet,chewable 1 tab PO DAILY citalopram 40 mg tablet 40 mg PO DAILY dapagliflozin propanediol [Farxiga] 5 mg tablet 10 mg PO DAILY fluticasone propionate 50 mcg/actuation spray,suspension 2 spray INTRANASAL QHS gabapentin 300 mg capsule 300 mg PO .bid lisinopril-hydrochlorothiazide 20-25 mg tablet 1 tab PO DAILY loratadine [Allergy Relief (loratadine)] 10 mg tablet 10 mg PO DAILY meloxicam 15 mg tablet 15 mg PO DAILY metformin 1,000 mg tablet 1,000 mg PO .bid pioglitazone 30 mg tablet 30 mg PO DAILY prednisone 10 mg tablet 30 mg PO DAILY Patient Comments: TAKE 3 TABLETS BY MOUTH DAILY FOR 3 DAYS, then TAKE 2 TABLETS BY MOUTH DAILY FOR 3 DAYS, then TAKE 1 TABLET BY MOUTH DAILY FOR 3 DAYS Rx Instructions: orally daily; TAKE 3 TABLETS BY MOUTH DAILY FOR 3 DAYS, then TAKE 2 TABLETS BY MOUTH DAILY FOR 3 DAYS, then TAKE 1 TABLET BY MOUTH DAILY FOR 3 DAYS simvastatin 20 mg tablet 20 mg PO QHS tizanidine 4 mg tablet 4 mg PO QHS PRN (Reason: pain) Other Ambulatory Orders: PT/OT/SP OutPatient Referral (Routine) Timeframe: 20240325 Location: Determined by Patient Ordered By: Simon Wolfe Follow Up: [facility] [Outside] - 04/09/24 1:40 pm Cecy Hernandez [Primary Care Provider] - (Her office was notified of your discharge. We requested that they contact you with a 3 day post hospital appointment. If they do not contact you by Monday please call them to schedule.) Exam Physical Exam Vital Signs: Temp Pulse Resp BP Pulse Ox O2 Del Method 98.0 F 86 18 120/83 98 Room Air 03/25/24 09:37 03/25/24 16:05 03/25/24 16:05 03/25/24 16:05 03/25/24 16:05 03/25/24 16:05 Narrative: Constitutional: Middle-aged WM, resting in bed comfortably HEENT: Moist mucous membranes, neck supple Cardiovascular: RRR, no M/R/G, normal S1 and S2, no JVD Respiratory: Lungs clear to auscultation bilaterally, no wheezes, rales or rhonchi GI: Soft, NTND, normoactive bowel sounds : Deferred Neuro: AAO x3, no focal deficits. Gis Software Developer strength 4+/5 throughout. 5/5 otherwise Extremities: No clubbing, cyanosis or edema Psych: Patient calm, cooperative and conversant Diagnostic Studies Completed and Pending Studies Pending studies at discharge: 03/23/24 14:30 Lyme, Total Ab with Reflex Routine 03/24/24 13:28 MYELIN BASIC PROTEIN, CSF Stat 03/25/24 08:43 CSF Culture Stat Preliminary micro results at discharge 03/25/24 08:43 Aerobic Culture - Pending Cerebral Spinal Fluid Anaerobic Culture - Pending Labs on day of discharge: 03/25/24 16:39: POC Glucose 127 03/25/24 11:12: POC Glucose 156 03/25/24 08:43: CSF Total Protein 84 H 03/25/24 08:43: CSF Glucose 72 H, CSF Total Protein 116 H 03/25/24 08:43: CSF Eosinophils 1 H, CSF Glucose 72 H 03/25/24 08:43: CSF Monocytes 8 L, CSF Eosinophils 2 H 03/25/24 08:43: CSF Lymphocytes 29 L, CSF Monocytes 7 L 03/25/24 08:43: CSF Neutrophils 62 H, CSF Lymphocytes 19 L 03/25/24 08:43: CSF Tot Nucleated Cells 3, CSF Neutrophils 72 H 03/25/24 08:43: CSF RBC 3051, CSF Tot Nucleated Cells 85 H* 03/25/24 08:43: CSF Supernatant Color Colorless, CSF RBC 90565 03/25/24 08:43: CSF Color Lt pink, CSF Supernatant Color Colorless 03/25/24 08:43: CSF Appearance Hazy A, CSF Color Red A 03/25/24 08:43: CSF Volume 9.0, CSF Appearance Turbid A 03/25/24 08:43: CSF Tube Number Tube number: 3, CSF Volume 9.0 03/25/24 08:43: CSF Tube Number Tube number: 1 03/25/24 06:39: PT 11.1, INR 1.0, APTT 30.2 03/25/24 06:26: POC Glucose 114 03/25/24 01:31: POC Glucose 99 03/24/24 20:16: POC Glucose 162 03/24/24 16:27: POC Glucose 114, POC Glucose Comment Glu2: cleaned meter 03/24/24 11:28: POC Glucose 126, POC Glucose Comment Glu2: cleaned meter 03/23/24 14:30: Lyme Disease IgG Ab N/A, Lyme Disease IgM Ab N/A, Lyme Disease Interpret N/A Documented By: Simon Wolfe MD [id number] Signed By: <Electronically signed by Simon Wolfe MD> 03/25/24 [id number] [facility] Work Phone: Evaluation note* Diagnosis Type 2 diabetes mellitus without complication, without long-term current use of insulin (CMS/HCC)- Primary Type 2 diabetes mellitus without complications (CMS/HCC) [facility] Diagnosis Onset Date Resolution Status Diabetes acute HTN (hypertension) acute Upper extremity weakness acu te [facility] Work Phone: Evaluation note* Diagnosis Onset Date Resolution Status Diabetes acute HTN (hypertension) acute Upper extremity weakness acu te Bilateral arm weakness acute Bilateral leg weakness acute Diabetes acute HTN (hypertension) acute Leukocytosis acute Upper extremity weakness acu te [facility] Work Phone: Evaluation note* Diagnosis Onset Date Resolution Status Diabetes acute HTN (hypertension) acute Upper extremity weakness acu te Bilateral arm weakness acute Bilateral leg weakness acute Diabetes acute Falls acute Fasciculation acute HTN (hypertension) acute Leukocytosis acute Upper extremity weakness acu te [facility] Work Phone: History general Narrative - Reported* Type Description Date Medical History rheumatoid arthritis Medical History type 2 diabeties Medical History Benign essential HTN Medical History Depression Surgical History tonsillectomy and adenoidectomy 1987 Hospitalization History tonsillitis [facility] Other Hospital Discharge instructionsAmbulatory Orders* PT/OT/SP OutPatient Referral Time Frame: 1 Day, Location: Determined By Patient Additional Instructions Follow up in the neurology office. Follow up with your Distribution Estimator in [place].[facility] Work Phone: InstructionsNot on filedocumented in this encounter [facility] Summary Purpose Family History No Family History Records Found Relationship Condition Age at Onset Recorded Date/T sreekanth father Unknown Myocardial infarction Unknown Heart disease Unknown mother Family history of colon cancer Unknown Malignant neoplasm Unknown Hypertension Unknown Advance Directives No Advanced Directives Records Found Advance Directive Response Recorded Date/ Time Advance Directives No March 23 12:28am Chief Complaint and Reason for Visit Chief Complaint Sent from Raimundo E R Reason for Visit Diabetes HTN (hypertension) Upper extremity weakness Chief Complaint Sent from Raimundo E R leg numbness Reason for Visit Diabetes HTN (hypertension) Upper extremity weakness Bilateral arm weakness Bilateral leg weakness Diabetes HTN (hypertension) Leukocytosis Upper extremity weakness Chief Complaint Sent from Raimundo E R leg numbness Reason for Visit Diabetes HTN (hypertension) Upper extremity weakness Bilateral arm weakness Bilateral leg weakness Diabetes Falls Fasciculation HTN (hypertension) Leukocytosis Upper extremity weakness Additional Source Comments (unrecognized sect ion and content) No Status Records FoundNo Status Records FoundNo Status Records FoundNo Status Records Found INFORMATION SOURCE (unrecogn ized section and content) DATE CREATED AUTHOR 11/14/2018 [facility] DATE CREATED AUTHOR AUTHOR'S ORGANIZ ATION 04/25/2022 [facility] DATE CREATED AUTHOR AUTHOR'S ORGANIZ ATION 04/06/2024 [facility] EPIC DATE CREATED AUTHOR AUTHOR'S ORGANIZ ATION 04/08/2024 [facility] Source Comments (unrecognize d section and content) In the event this informatio n is protected by the Federal Confidentiality of Alcohol and Drug Abuse Patient Records regulations: The Federal rules restrict any use of the information to criminally investigate or prosecute any alcohol or drug abuse patient.[facility] Reason for Visit (unrecogniz ed section [...] Care Teams (unrecognized sec tion and content) Nuclear Operator Relationship Specialty Start Date End Date Lexa Hickman MD PCP - General Family Medicine 03/15/23 Cecy Hernandez NP [address] [place] [address] Referring Physician Nurse Practitioner 03/15/23 Team Status: Active Member Role Status Dates Cecy Hernandez Primary Care Provider Active Team Status: Inactive Member Role Status Dates Cecy Hernandez Primary Care Provider Active Sta rt: March 23, 2024 End: March 25, 2024 Gale Gonzales MD Emergency Provider Active Start: March 23, 2024 End: March 25, 2024 Bola Garcia DO Admit Provider Active Start: March 23, 2024 End: March 25, 2024 Danial Horan DO Other Provider Active Start: March 23, 2024 End: March 25, 2024 Simon Wolfe MD Attending Provider Active Start: March 23, 2024 End: March 25, 2024 Team Status: Active Member Role Status Dates Cecy Haywooddillon Primary Care Provider Active Sta rt: March 30, 2024 Emily Winn DO Emergency Provider Active Start: March 30, 2024 Edgar Gomez MD Admit Provider, Atte nding Provider Active Start: March 30, 2024 Team Status: Inactive Member Role Status Dates [email or web address] Active Sta rt: March 30, 2024 End: March 30, 2024 Emily Winn DO Emergency Provider Active Start: March 30, 2024 End: March 30, 2024 Edgar Gomez MD Admit Provider Active Start: 2023 End: March 30, 2024 Bloa Garcia DO Attending Provider Active Start: March 30, 2024 End: March 30, [address] DO Other Provider Active Start: March 30, 2024 End: March 30, 2024 FOR RECORDS PERTAINING TO PATIENTS WHO ARE [...] BE BASED ON THE PRIMARY CLINICAL RECORDS. [facility] [employer] provides no warranty or guarantee of the accuracy or completeness of information in this document.
== END 2024-04-15 13:53 | disposition home or self-care (01) ==
LOC: PST 13:52
PROVIDERS: PCP Nurse Practitioner; Visit Provider Surgery
DX: Z01.818 Encounter for other preprocedural examination (principal); Z12.11 Encounter for screening for malignant neoplasm of colon

== ENCOUNTER 2024-04-23 07:40 | Day surgery (SDC) | payer MEDICAID, SELFPAY ==
[2024-04-23 07:45] VITALS: BP 110/61; PULSE 70; TEMP 36.6; O2SAT 95; BMI 42.3
--- OUTSIDE RECORDS SUMMARY | 2024-04-23 07:45 | XMS_ITS | CCD ---
Author Organization [facility] Inform ion Partnership [facility] Care Team Providers Care Full Stack Developer Name Role Phone PHYSICIAN, DEFAULT Admitting Unavailable PHYSICIAN, DEFAULT Attending Unavailable PEGGY GAYTAN Primary Care Unavailable Primo Downing Primary Care Provider [phone] Yue Pedroza Unavailable AICHHOLZ, DENTURE MODEL MAKER CECY Primary Care Unavailable AICHHOLZ, DENTURE MODEL MAKER CECY Admitting Unavailable AICHHOLZ, DENTURE MODEL MAKER CECY Attending Unavailable AICHHOLZ, DENTURE MODEL MAKER CECY Consulting Unavailable AICHHOLZ, DENTURE MODEL MAKER CECY Primary Care Unavailable AICHHOLZ, DENTURE MODEL MAKER CECY Admitting Unavailable AICHHOLZ, DENTURE MODEL MAKER CECY Attending Unavailable AICHHOLZ, DENTURE MODEL MAKER CECY Consulting Unavailable AICHHOLZ, DENTURE MODEL MAKER CECY Admitting Unavailable AICHHOLZ, DENTURE MODEL MAKER CECY Attending Unavailable AICHHOLZ, DENTURE MODEL MAKER CECY Consulting Unavailable AICHHOLZ, DENTURE MODEL MAKER CECY Primary Care Unavailable AICHHOLZ, DENTURE MODEL MAKER CECY Primary Care Unavailable VISHAL, DR THANG Nichols Attending Unavailmilvia RODGERS, DR THANG Nichols Consulting Unavailmilvia RODGERS, DR THANG Nichols Admitting UnavailJAKOB Solano Consulting Unavailable Lexa Hickman MD Primary Care Provider [employer], Cecy Unavailable Unavailable Primary Care Provider Unavailabl e David, Cecy J Primary Care Provider MD Gale Gonzales Emergency Provider DO Bola Garcia Admit Provider DO Danial Horan Other Provider MD Simon Wolfe Attending Provider DO Emily Winn Emergency Provider [phone] MD Edgar Gomez Admit Provider MD Edgar Gomez Attending Provider [phone] DO Bola Garcia Attending Provider [phone] Other Provider CECY HERNANDEZ Attending Unavailable VICKY SCRUGGS Attending Unavailable TANA CARDENAS Attending Unavailable DAVID, CCEY Attending Unavailable JULIET HWANG Attending Unavailable LISET JIMENEZ Attending Unavailable CECY HERNANDEZ Attending Unavailable CECY HERNANDEZ Attending Unavailable [address] Consulting Unavailable Edgar Gomez Admitting Unavailable Cecy Hernandez Primary Care Unavailable Bola Garcia Attending UnavailDanial Leija Consulting Unavailable Cecy Hernandez Primary Care Unavailable Simon Wolfe Attending Unavailab Bola Chan Admitting UnavailLULA Hollins Attending Unavailable COTA LULA Referring Unavailable COTA LULA Referring Unavailable Allergies Allergy Classification Reported Allergen(s) Allergy Type Date of Onset Reaction(s) Facility (1 source) Adhesive Tape Allergy to substance 02-20-20 13 Rash [facility] (9 sources) Penicillins; Translations: [Penicillins] Drug Allergy 01-03-20 13 Unknown [facility] (1 source) Penicillins (Antibiotic) Drug allergy rash. 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 Dermatitis [facility] (1 source) Oxytetracycline Drug Allergy 08-16-20 Unknown [facility] (1 source) Penicillin G Drug Allergy 08-16-20 Unknown [facility] (1 source) Other Allergy to substance 08-16-20 Unknown [facility] (1 source) Wound Dressing Adhesive Propensity to adverse reactions to drug 08-16-20 Rash [facility] (2 sources) Adhesive agent; Translations: [ADHESIVE] Propensity to adverse reactions to drug 02-20-20 [facility] (4 sources) almond allergenic extract; Translations: [almond] Drug Allergy 03-23-20 [facility] (4 sources) cashew nut allergenic extract; Translations: [cashew nut] Drug Allergy 03-23-20 [facility] (1 source) Adhesive Tape Drug allergy (disorder) 03-29-20 [facility] Medications Current Medications Medication Drug Class(es) [...] t ablet Actos Active polyethylene glycol 3350 58997 mg powder for oral solution (1 source) [...] Date Documented Da te Episodic/Chronic Diabetes mellitus with complications (1 source) Type 2 diabetes mellitus with other diabetic arthropathy; 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] Onset: 04-17-2024 Chronic Diabetes mellitus without complication (17 sources) Type [...] [Benign essential hypertension] Onset: 04-25-2022 08-16-2023 Chronic Immunizations and screening for infectious disease (2 sources) Contact with and (suspected) exposure to other viral communicable diseases; Translations: [Other specified abnormal immunological findings in serum] Onset: 10-08-2021 Resolved: 10-08-2021 Episodic Mood disorders (4 sources) Depressive disorder; Translations: [Depression] Onset: 08-16-2023 08-16-2023 Chronic Mood disorders (1 source) Mood disorders; Translations: [Depression, unspecified] Onset: 03-23-2024 Osteoarthritis (2 sources) Primary osteoarthritis, right hand; Translations: [Primary osteoarthritis, left hand] Onset: 04-17-2024 Chronic Other aftercare (1 source) jail (current) use of oral hypoglycemic drugs; Translations: [[facility] USE ORAL HYPOGLYCEMIC DX] Onset: 04-25-2022 Episodic Other aftercare (1 source) 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; 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 ASPIRIN] Onset: 04-25-2022 Episodic Other aftercare (1 source) 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; Translations: [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 THERAPY] Onset: 04-25-2022 Episodic Other [...] 08-16-2023 Episodic Rheumatoid arthritis and related disease (4 sources) Rheumatoid arthritis, unspecified; Translations: [Flare of [...] Classification Problem Date Documented Da te Episodic/Chronic Other non-traumatic joint disorders (2 sources) Joint [...] Test Name Value Interpretation Reference Range Facility XR OSSEOUS SURVEY LIMITEDon 04-20-2024 XR OSSEOUS SURVEY LIMITED XR OSSEOUS SURVEY LIMITED 2 views of each hand HISTORY: Osteoarthritis, pain COMPARISON: 02/14/2023 IMPRESSION: * Osteoarthritis within multiple joints of the right hand most prominent in the second/third MCP joints and radiocarpal joint. No evidence of erosive arthropathy. * Left hand: Osteoarthritis within several joints of the left hand most prominent in the second/third MCP joints and radiocarpal joint. No evidence of erosive arthropathy. Finalized by Francois King MD on 04/20/2024 7:58 AM Normal [facility] CBC AND AUTO DIFFon 04-17-20 ABSOLUTE BASOPHIL 0.0 X10E9/L Normal 0.0-0.2 [facility] Comment on above: Performed By: #### C POOL, 77305-4, [facility], 1987-12, 4485-04, 449-2, ENAP #### [facility] ([id number]) [address], [address] [place] [address] ABSOLUTE NEUTROPHIL 4.9 X10E9/L Normal 1.5-6.6 [facility] Comment on above: Performed By: #### Luke LANZA, 28455-5, [facility], 1987-12, 4485-04, 4497-2, ENAP #### [facility] ([id number]) [address], [address] [place] [address] Basophils/100 WBC (Bld) 0.3 % Normal [facility] Comment on above: Performed By: #### Luke LANZA, 64891-3, CMP, 1987-12, 4485-04, 2, ENAP #### [facility] ([id number]) [address], [address] [place] [address] Eosinophils (Bld) [#/Vol] 0.2 10*3/uL Normal 0.0-0.4 [facility] Comment on above: Performed By: #### Luke LANZA, 12121-7, CMP, 1987-12, 4485-04, 449-2, ENAP #### [facility] ([id number]) [address], [address] [place] [address] Eosinophils/100 WBC (Bld) 2.5 % Normal [facility] Comment on above: Performed By: #### C BCA, 21619-5, CMP, 1987-12, 4485-04, 4497-2, ENAP #### [facility] ([id number]) [address], [address] [place] [address] Erythrocyte distribution width (RBC) [Ratio] 13.8 % Normal 11.5-15.0 [facility] Comment on above: Performed By: #### C BCA, 26717-0, CMP, 1987-12, 4485-04, 4497-2, ENAP #### [facility] ([id number]) [address], [facility] [address] [place] [address] Hematocrit (Bld) [Volume fraction] 43.2 % Normal 39-49 [facility] Comment on above: Performed By: #### C POOL, 33013-0, CMP, 1987-12, 4485-04, 2, ENAP #### [facility] ([id number]) [address], [address] [place] [address] Hemoglobin (Bld) [Mass/Vol] 14.8 g/dL Normal 13.0-17.0 [facility] Comment on above: Performed By: #### C BCA, 29942-8, CMP, 1987-12, 4485-04, 4492, ENAP #### [facility] ([id number]) [address], [facility] [address] [place] [address] Lymphocytes (Bld) [#/Vol] 2.7 10*3/uL Normal 1.0-3.5 [facility] Comment on above: Performed By: #### C BCA, 92785-9, CMP, 1987-12, 4485-04, 449-2, ENAP #### [facility] ([id number]) [address], [address] [place] [address] Lymphocytes/100 WBC (Bld) 31.7 % Normal [facility] Comment on above: Performed By: #### C BCA, 89719-7, CMP, 1987-12, 4485-04, 4497-2, ENAP #### [facility] ([id number]) [address], [address] [place] [address] MCH (RBC) [Entitic mass] 30.3 pg Normal 27-34 [facility] Comment on above: Performed By: #### C BCA, 93594-0, CMP, 1987-12, 4485-04, 4497-2, ENAP #### [facility] ([id number]) [address], [address] [place] [address] MCHC (RBC) [Mass/Vol] 34.3 g/dL Normal 32-36 [facility] Comment on above: Performed By: #### C POOL, 31032-1, CMP, 1987-12, 4485-04, 2, ENAP #### [facility] ([id number]) [address], [address] [place] [address] MCV (RBC) [Entitic vol] 89 fL Normal 80-100 [facility] Comment on above: Performed By: #### C POOL, 47438-9, CMP, 1987-12, 4485-04, 449-2, ENAP #### [facility] ([id number]) [address], [address] [place] [address] Monocytes (Bld) [#/Vol] 0.6 10*3/uL Normal 0-0.9 [facility] Comment on above: Performed By: #### C BCA, 41346-9, CMP, 1987-12, 4485-04, 2, ENAP #### [facility] ([id number]) [address], [address] [place] [address] Monocytes/100 WBC (Bld) 7.5 % Normal [facility] Comment on above: Performed By: #### C BCA, 81072-4, CMP, 1987-12, 9, 4498-2, ENAP #### [facility] ([id number]) [address], [facility] [address] [place] [address] Neutrophils/100 WBC (Bld) 58.0 % Normal [facility] Comment on above: Performed By: #### C BCA, 72995-1, CMP, 1987-12, 4485-04, 4498-2, ENAP #### [facility] ([id number]) [address], [facility] [address] [place] [address] Platelet mean volume (Bld) [Entitic vol] 7.7 fL Normal 7-12 [facility] Comment on above: Performed By: #### C POOL, 64405-5, CMP, 1987-12, 4485-04, 4498-2, ENAP #### [facility] ([id number]) [address], [address] [address] Platelets (Bld) [#/Vol] 330 10*3/uL Normal 150-450 [facility] Comment on above: Performed By: #### C POOL, 09791-8, CMP, 1987-12, 4485-04, 4498-2, ENAP #### [facility] ([id number]) [address], [facility] [address] [place] [address] RBC COUNT 4.87 X10E12/L Normal 4.10-5.70 [facility] Comment on above: Performed By: #### C BCA, 25785-6, CMP, 1987-12, 4485-04, 4498-2, ENAP #### [facility] ([id number]) [address], [facility] [address] [place] [address] WBC (Bld) [#/Vol] 8.4 10*3/uL Normal 4.0-11.0 [facility] Comment on above: Performed By: #### Luke BCA, 86199-9, CMP, 1987-12, 4485-9, 4498-2, ENAP #### [facility] ([id number]) [address] [place] [address] COMPREHENSIVE METABOLIC PANE Rayshawn 04-17-2024 Albumin [Mass/Vol] 4.4 g/dL Normal 3.2-5.3 [facility] Comment on above: Performed By: #### C BCA, 12684-2, CMP, 1987-12, 4485-04, 4498-2, ENAP #### [facility] ([id number]) [address], [address] [place] [address] ALP [Catalytic activity/Vol] 71 U/L Normal 39-130 [facility] Comment on above: Performed By: #### C BCA, 58949-8, CMP, 1987-12, 4485-04, 4498-2, ENAP #### [facility] ([id number]) [address], [address] [place] [address] ALT [Catalytic activity/Vol] 25 U/L Normal 0-40 [facility] Comment on above: Performed By: #### C BCA, 64043-1, CMP, 1987-12, 4485-04, 4498-2, ENAP #### [facility] ([id number]) [address], [address] [place] [address] Anion gap [Moles/Vol] 12 mmol/L Normal 5-15 [facility] Comment on above: Performed By: #### C BCA, 17962-5, CMP, 1987-12, 4485-04, 4498-2, ENAP #### [facility] ([id number]) [address], [address] [place] [address] AST [Catalytic activity/Vol] 17 U/L Normal 0-41 [facility] Comment on above: Performed By: #### C BCA, 98223-2, CMP, 1987-12, 4485-04, 4498-2, ENAP #### [facility] ([id number]) [address], [address] [place] [address] Bilirubin [Mass/Vol] 0.8 mg/dL Normal 0.3-1.2 [facility] Comment on above: Performed By: #### C BCA, 03715-4, CMP, 1987-12, 4485-04, 4498-2, ENAP #### [facility] ([id number]) [address], [address] [place] [address] Calcium [Mass/Vol] 9.5 mg/dL Normal 8.5-10.5 [facility] Comment on above: Performed By: #### C BCA, 80839-3, CMP, 1987-12, 4485-04, 449-2, ENAP #### [facility] ([id number]) [address], [address] [place] [address] Chloride [Moles/Vol] 102 mmol/L Normal 98-109 [facility] Comment on above: Performed By: #### C BCA, 53543-0, CMP, 1987-12, 4485-04, 449-2, ENAP #### [facility] ([id number]) [address], [address] [place] [address] CO2 [Moles/Vol] 25 mmol/L Normal 22-32 [facility] Comment on above: Performed By: #### C BCA, 87604-8, CMP, 1987-12, 4485-04, 4498-2, ENAP #### [facility] ([id number]) [address], [address] [place] [address] Creatinine [Mass/Vol] 0.63 mg/dL Normal 0.60-1.30 [facility] Comment on above: Result Comment: METH OD TRACEABLE TO IDMS STANDARD Performed By: #### C BCA, 63128-6, CMP, 1987-12, 4485-04, 4497-2, ENAP #### [facility] ([id number]) [address], [address] [place] [address] eGFR (CKD-EPI) NON-RACE DEPENDENT >90 Normal >59 [facility] Comment on above: Result Comment: Reported eGFR is based on the CKD-EPI 2020 equation that does not use a race coefficient. Performed By: #### C BCA, 87682-9, CMP, 1987-12, 4485-04, 4498-2, ENAP #### [facility] ([id number]) [address], [address] [place] [address] Glucose [Mass/Vol] 111 mg/dL High 65-99 [facility] Comment on above: Performed By: #### C BCA, 88478-1, CMP, 1987-12, 4485-04, 449-2, ENAP #### [facility] ([id number]) [address], [address] [place] [address] Potassium [Moles/Vol] 3.8 mmol/L Normal 3.5-5.0 [facility] Comment on above: Performed By: #### C BCA, 08984-5, CMP, 1987-12, 4485-04, 449-2, ENAP #### [facility] ([id number]) [address], [address] [place] [address] Protein [Mass/Vol] 7.2 g/dL Normal 6.0-8.0 [facility] Comment on above: Performed By: #### C BCA, 40740-5, CMP, 1987-12, 4485-04, 4498-2, ENAP #### [facility] ([id number]) [address], [address] [place] [address] Sodium [Moles/Vol] 139 mmol/L Normal 134-146 [facility] Comment on above: Performed By: #### C BCA, 44636-5, CMP, 1987-12, 4485-04, 449-2, ENAP #### [facility] ([id number]) [address], [address] [place] [address] Urea nitrogen [Mass/Vol] 12 mg/dL Normal 5-23 [facility] Comment on above: Performed By: #### C BCA, 87549-2, CMP, 1987-12, 4484-9, 4498-2, ENAP #### [facility] ([id number]) [address], [address] [place] [address] CRP [Mass/Vol]on 04-17-2024 C REACTIVE PROTEIN 0.8 mg/dL High 0.000-0.7 4 4 [facility] Comment on above: Performed By: #### C BCA, 23388-4, CMP, 1987-12, 9, 4498-2, ENAP #### [facility] ([id number]) [address], [address] [place] [address] Complement C3 [Mass/Vol]on 0 04-17-2024 COMPLEMENT C3 153 mg/dL Normal 86-184 [facility] Comment on above: Performed By: #### C BCA, 34153-1, CMP, 1987-12, 4485-04, 4498-2, ENAP #### [facility] ([id number]) [address], [address] [place] [address] Complement C4 [Mass/Vol]on 0 04-17-2024 COMPLEMENT C4 33 mg/dL Normal 16-47 [facility] Comment on above: Performed By: #### C BCA, 78583-7, CMP, 1987-12, 9, 4498-2, ENAP #### [facility] ([id number]) [address], [address] [place] [address] VIJAY PANELon 04-17-2024 ANTI-MALAVE AB IGG <0.2 Normal <1.0 [facility] Comment on above: Performed By: #### C BCA, 96146-0, CMP, 1987-12, 4485-04, 4498-2, ENAP #### [facility] ([id number]) [address], [address] [place] [address] JO1 ANTIBODY <0.2 Normal <1.0 [facility] Comment on above: Performed By: #### C BCA, 68241-4, CMP, 1987-12, 4485-04, 4498-2, ENAP #### [facility] ([id number]) [address], [address] [place] [address] COMPLETIONS ENGINEER ANTIBODY IGG 0.6 AI Normal <1.0 [facility] Comment on above: Performed By: #### C BCA, 76867-0, CMP, 1987-12, 4485-04, 4498-2, ENAP #### [facility] ([id number]) [address], [address] [place] [address] SCL 70 ANTIBODY <0.2 Normal <1.0 [facility] Comment on above: Performed By: #### C BCA, 83401-1, CMP, 1987-12, 4485-04, 4498-2, ENAP #### [facility] ([id number]) [address], [address] [place] [address] SSA ANTIBODY <0.2 Normal <1.0 [facility] Comment on above: Performed By: #### C BCA, 26359-7, CMP, 1987-12, 4485-04, 4498-2, ENAP #### [facility] ([id number]) [address], [address] [place] [address] SSB ANTIBODY <0.2 Normal <1.0 [facility] Comment on above: Performed By: #### C BCA, 31447-8, CMP, 1987-12, 4485-04, 4498-2, ENAP #### [facility] ([id number]) [address], [address] [place] [address] ESR Photometric method (Bld) [Velocity]on 04-17-2024 ESR, ERYTHROCYTE SEDIMENTATION RATE 19 mm/h High 0-15 [facility] Comment on above: Performed By: #### C BCA, 71094-8, CMP, 1988-5, 4485-9, 4498-2, ENAP #### [facility] ([id number]) [address], [address] [place] [address] Automated basophil %Ordered By: Margaret Malave on 03-30-2024 Basophils/100 WBC (Bld) 0.4 % Normal . [facility] Comment on above: Performed By: #### B MP, MG, CBC #### [facility] [address] [place] [address] Automated basophil countOrde red By: Margaret Malave on 03-30-2024 Basophils (Bld) [#/Vol] 0.1 10*3/uL Normal 0.0-0.2 [facility] Comment on above: Result Comment: PERF ORMED BY: [place] [address] PATHOLOGIST [employer] LEAD MARLYN MCKEON M.D. Performed By: #### B MP, MG, CBC #### [address] Automated blood monocyte cou ntOrdered By: Margaret Malave on 03-30-2024 Monocytes (Bld) [#/Vol] 1.8 10*3/uL High 0.0-0.8 [facility] Comment on above: Performed By: #### B MP, MG, CBC #### [facility] [address] [place] [address] Automated eosinophil %Ordere d By: Margaret Malave on 03-30-2024 Eosinophils/100 WBC (Bld) 1.0 % Normal . [facility] Comment on above: Performed By: #### B MP, MG, CBC #### [facility] [address] [place] [address] Automated eosinophil countOr dered By: Margaret Malave on 08-03-2024 Eosinophils (Bld) [#/Vol] 0.2 10*3/uL Normal 0.0-0.45 [facility] Comment on above: Performed By: #### B MP, MG, CBC #### [address] Automated monocyte %Ordered By: Margaret Malave on 03-30-2024 Monocytes/100 WBC (Bld) 9.0 % Normal . [facility] Comment on above: Performed By: #### B MP, MG, CBC #### [address] Automated neutrophil %Ordere d By: Margaret Malave on 03-30-2024 Neutrophils/100 WBC (Bld) 67.6 % Normal . [facility] Comment on above: Performed By: #### B MP, MG, CBC #### [address] Basic Metabolic Panelon 08-0 Creatinine Clr Calc Pharmacy 238.21 Normal [facility] Comment on above: Performed By: #### B MP, MG, CBC #### [address] GFR/1.73 sq M.predicted MDRD (S/P/Bld) [Vol rate/Area] mL/min/{1.73_m2} Normal [facility] Comment on above: Performed By: #### B MP, MG, CBC #### [address] head/brain wo conon 03-30 CT head/brain wo [facility] [place] [address] CT Scan Report Signed Patient: Bhumika Umana JR MR#: [id number] : 1975 Acct:[id number] Age/Sex: 48 / M ADM Date: 03/30/24 Loc: Room: [address] [place] [address] Type: ADM INOo Attending Dr: Bola Garcia [...] Mert Ferreira M.D.03/30/2024 9:26 AM Dictation Location: [place] [address] Transcribed By: [facility] 03/30/24925 Dictated By: Mert Ferreira DO 03/30/2418 Signed By: 03/30/24925 Normal [facility] Calcium [Mass/volume] in Ser um or PlasmaOrdered By: Margaret Malave on 03-30-2024 Calcium [Mass/Vol] 9.3 mg/dL Normal 8.6-10.3 [facility] Comment on above: Performed By: #### B MP, MG, CBC #### [facility] [address] [place] [address] Capillary blood glucose pete urement by glucometer (mass/volume)Ordered By: Edgar Gomez on 03-30-2024 Glucose [Mass/Vol] 115 mg/dL Normal [facility] Comment on above: Random Glucose Refer ence Range is dependent on time and content of last meal. Glucose of more than 200 mg/dL in a nonstressed, ambulatory subject supports the diagnosis of Diabetes Mellitus. Result Comment: [place] Glucose Reference Range is dependent on time and content of last meal. Glucose of more than 200 mg/dL in a nonstressed, ambulatory subject supports the diagnosis of Diabetes Mellitus. PERFORMED BY: [place] [address] PATHOLOGIST [employer] MARLYN MCKEON M.D. Performed By: #### G MARGARITA #### Point of Care testing , Carbon dioxide, total [Moles /volume] in Serum or PlasmaOrdered By: Margaret Malave on 03-30-2024 CO2 [Moles/Vol] 27.2 mmol/L Normal 21.0-31.0 [facility] Comment on above: Performed By: #### B MP, MG, CBC #### [facility] [address] [place] [address] Chloride [Moles/volume] in S vandana or PlasmaOrdered By: Margaret Malave on 03-30-2024 Chloride [Moles/Vol] 101 mmol/L Normal 98-107 [facility] Comment on above: Performed By: #### B MP, MG, CBC #### [address] Complete Blood Count Auto Di ffon 03-30-2024 Mean Corpuscular HGB Conc 33.3 g/dL Normal 32.5-35.6 [facility] Comment on above: Performed By: #### B MP, MG, CBC #### [address] NRBC% 0.0 /100{WBC} Normal 0-0.5 [facility] Comment on above: Performed By: #### B MP, MG, CBC #### [address] Creatinine [Mass/volume] in Serum or PlasmaOrdered By: Margaret Malave on 03-30-2024 Creatinine [Mass/Vol] 0.61 mg/dL Low 0.70-1.30 [facility] Comment on above: Performed By: #### B MP, MG, CBC #### [address] Erythrocyte distribution wid th [Ratio] by Automated countOrdered By: Margaret Malave on 03-30-2024 Erythrocyte distribution width (RBC) [Ratio] 13.6 % Normal 12.0-14.8 [facility] Comment on above: Performed By: #### B MP, MG, CBC #### [facility] [address] Erythrocytes [#/volume] in B lood by Automated countOrdered By: aMrgaret Malave on 03-30-2024 RBC (Bld) [#/Vol] 5.03 10*6/uL Normal 3.90-5.60 [facility] Comment on above: Performed By: #### B MP, MG, CBC #### [facility] [address] Glucose Poct Glucometerson 0 03-30-2024 Glucose [Mass/Vol] 159 mg/dL Normal [facility] Comment on above: Result Comment: [place] Glucose Reference Range is dependent on time and content of last meal. Glucose of more than 200 mg/dL in a nonstressed, ambulatory subject supports the diagnosis of Diabetes Mellitus. PERFORMED BY: [place] [address] PATHOLOGIST [employer] MARLYN MCKEON M.D. Performed By: #### C BC, MG, PHOS, CMP #### [facility] [address] [place] [id number] [facility] Glucose [Mass/Vol] 144 mg/dL Normal [facility] Comment on above: Result Comment: [place] Glucose Reference Range is dependent on time and content of last meal. Glucose of more than 200 mg/dL in a nonstressed, ambulatory subject supports the diagnosis of Diabetes Mellitus. PERFORMED BY: [place] [address] PATHOLOGIST [employer] LEAD MARLYN MCKEON M.D. Performed By: #### C BC, MG, PHOS, CMP #### [facility] [address] [place] [id number] [place] Glucose [Mass/volume] in Ser um or PlasmaOrdered By: Margaret Malave on 03-30-2024 Glucose [Mass/Vol] 119 mg/dL High 70-100 [facility] Comment on above: ADA recommended refe rence rangeRandom Glucose Reference Range is dependent on time and content of last meal. Glucose of more than 200 mg/dL in a nonstressed, ambulatory subject supports the diagnosis of Diabetes Mellitus. Result Comment: [facility] Glucose Reference Range is dependent on time and content of last meal. Glucose of more than 200 mg/dL in a nonstressed, ambulatory subject supports the diagnosis of Diabetes Mellitus. ADA recommended reference range Performed By: #### B MP, MG, CBC #### [facility] [address] Hematocrit [Volume Fraction] of Blood by Automated countOrdered By: Margaret Malave on 03-30-2024 Hematocrit (Bld) [Volume fraction] 44.6 % Normal 38.8-50.0 [facility] Comment on above: Performed By: #### B MP, MG, CBC #### [address] Hemoglobin [Mass/volume] in BloodOrdered By: Margaret Malave on 03-30-2024 Hemoglobin (Bld) [Mass/Vol] 14.9 g/dL Normal 13.0-17.0 [facility] Comment on above: Performed By: #### B MP, MG, CBC #### [address] Leukocytes [#/volume] correc elizabeth for nucleated erythrocytes in Blood by Automated counOrdered By: Margaret Malave on 03-30-2024 WBC corrected for nucl RBC Auto (Bld) [#/Vol] 20.0 10*3/uL High 4.1-10.5 [facility] Leukocytes [#/volume] in Blo od by Automated countOrdered By: Margaret Malave on 03-30-2024 WBC (Bld) [#/Vol] 20.0 10*3/uL High 4.1-10.5 [facility] Comment on above: Performed By: #### B MP, MG, CBC #### [place] [address] [place] Lymphocytes [#/volume] in Bl ood by Automated countOrdered By: Margaret Malave on 03-30-2024 Lymphocytes (Bld) [#/Vol] 4.4 10*3/uL Normal 1.00-4.8 [facility] Comment on above: Performed By: #### B MP, MG, CBC #### [address] Lymphocytes/100 leukocytes i n Blood by Automated countOrdered By: Margaret Malave on 03-30-2024 Lymphocytes/100 WBC (Bld) 22.0 % Normal . [facility] Comment on above: Performed By: #### B MP, MG, CBC #### [address] MCH [Entitic mass] by Automa elizabeth countOrdered By: Margarte Malave on 03-30-2024 MCH (RBC) [Entitic mass] 29.5 pg Normal 27.5-35.2 [facility] Comment on above: Performed By: #### B MP, MG, CBC #### [address] MCHC Auto (RBC) [Mass/Vol]Or dered By: Margaret Malave on 03-30-2024 MCHC (RBC) [Mass/Vol] 33.3 g/dL 32.5-35.6 [facility] MCV [Entitic volume] by Auto mated countOrdered By: Margaret Malave on 03-30-2024 MCV (RBC) [Entitic vol] 88.6 fL Normal 83.5-101 [facility] Comment on above: Performed By: #### B MP, MG, CBC #### [facility] [address] [place] [address] Magnesium [Mass/volume] in S vandana or PlasmaOrdered By: Margaret Malave on 03-30-2024 Magnesium [Mass/Vol] 1.8 mg/dL Low 1.9-2.7 [facility] Comment on above: Result Comment: PERF ORMED BY: [place] [address] PATHOLOGIST [employer] LEAD MARLYN MCKEON M.D. Performed By: #### B MP, MG, CBC #### [facility] [address] [place] [address] Neutrophils [#/volume] in Bl ood by Automated countOrdered By: Margaret Malave on 03-30-2024 Neutrophils (Bld) [#/Vol] 13.5 10*3/uL High 1.8-7.7 [facility] Comment on above: Performed By: #### B MP, MG, CBC #### [facility] [address] [place] [address] No Panel InformationOrdered By: Margaret Malave on 03-30-2024 Estimated GFR (CKD-EPI) > 60.0 mL/Min [facility] Creatinine Clearance (Chem 238.21 [facility] Nucleated erythrocytes [Pres ence] in Blood by Automated countOrdered By: Margaret Malave on 03-30-2024 Nucleated RBC Auto Ql (Bld) 0.0 /100{WBC} 0-0.5 [facility] Platelet mean volume [Entiti c volume] in Blood by Automated countOrdered By: Margaret Malave on 03-30-2024 Platelet mean volume (Bld) [Entitic vol] 7.5 fL Normal 6.6-10.1 [facility] Comment on above: Performed By: #### B MP, MG, CBC #### [facility] [address] [place] [address] Platelets [#/volume] in Bloo d by Automated countOrdered By: Margaret Malave on 03-30-2024 Platelets (Bld) [#/Vol] 324 10*3/uL Normal 150-450 [facility] Comment on above: Performed By: #### B MP, MG, CBC #### [facility] [address] [place] [address] Potassium [Moles/volume] in Serum or PlasmaOrdered By: Margaret Malave on 03-30-2024 Potassium [Moles/Vol] 4.4 mmol/L Normal 3.5-5.1 [facility] Comment on above: Performed By: #### B MP, MG, CBC #### [facility] [address] [place] [address] Serum or plasma anion gap de terminationOrdered By: Margaret Malave on 03-30-2024 Anion gap [Moles/Vol] 12.2 mmol/L Normal 6.0-15.0 [facility] Comment on above: Performed By: #### B MP, MG, CBC #### [facility] [address] Sodium [Moles/volume] in Ser um or PlasmaOrdered By: Margaret Malave on 03-30-2024 Sodium [Moles/Vol] 136 mmol/L Normal 136-145 [facility] Comment on above: Performed By: #### B MP, MG, CBC #### [facility] [address] Urea nitrogen [Mass/volume] in Serum or PlasmaOrdered By: Margaret Malave on 03-30-2024 Urea nitrogen [Mass/Vol] 13 mg/dL Normal 7-25 [facility] Comment on above: Performed By: #### B MP, MG, CBC #### [facility] [address] Automated basophil %Ordered By: Emily Winn on 03-29-2024 Basophils/100 WBC (Bld) 0.5 % Normal . [facility] Comment on above: Performed By: #### G LULS #### Point of Care testing , Automated basophil countOrde red By: Emily Winn on 03-29-2024 Basophils (Bld) [#/Vol] 0.1 10*3/uL Normal 0.0-0.2 [facility] Comment on above: Performed By: #### G LULS #### Point of Care testing , Automated blood monocyte cou ntOrdered By: Emily Winn on 03-29-2024 Monocytes (Bld) [#/Vol] 1.1 10*3/uL High 0.0-0.8 [facility] Comment on above: Performed By: #### G LULS #### Point of Care testing , Automated eosinophil %Ordere d By: Emily Winn on 03-29-2024 Eosinophils/100 WBC (Bld) 0.6 % Normal . [facility] Comment on above: Performed By: #### G LULS #### Point of Care testing , Automated eosinophil countOr dered By: Emily Mosqueraelizabeth on 03-29-2024 Eosinophils (Bld) [#/Vol] 0.1 10*3/uL Normal 0.0-0.45 [facility] Comment on above: Performed By: #### G LULS #### Point of Care testing , Automated monocyte %Ordered By: Emily Mosqueraelizabeth on 03-29-2024 Monocytes/100 WBC (Bld) 6.5 % Normal . [facility] Comment on above: Performed By: #### G LULS #### Point of Care testing , Automated neutrophil %Ordere d By: Emily Krise on 03-29-2024 Neutrophils/100 WBC (Bld) 77.7 % Normal . [facility] Comment on above: Performed By: #### G LULS #### Point of Care testing , Basic Metabolic Panelon Creatinine Clr Calc Pharmacy 196.64 Normal [facility] Comment on above: Performed By: #### B MP, MG, CBC #### [place] [address] [place] GFR/1.73 sq M.predicted MDRD (S/P/Bld) [Vol rate/Area] mL/min/{1.73_m2} Normal [facility] Comment on above: Performed By: #### B MP, MG, CBC #### [facility] [address] [place] [address] [place] C reactive protein [Mass/vol ume] in Serum or PlasmaOrdered By: Emily Winn on 03-29-2024 CRP [Mass/Vol] < 0.5 mg/dL 0.0-0.5 [facility] C-Reactive Proteinon 024 CRP [Mass/Vol] mg/L Normal 0.0-0.5 [facility] Comment on above: Result Comment: PERF ORMED BY: [place] [address] PATHOLOGIST [employer] LEAD MARLYN MCKEON M.D. Performed By: #### B MP, MG, CBC #### [facility] [address] [place] [address] [place] Calcium [Mass/volume] in Ser um or PlasmaOrdered By: Emily Winn on 03-29-2024 Calcium [Mass/Vol] 9.3 mg/dL Normal 8.6-10.3 [facility] Comment on above: Performed By: #### B MP, MG, CBC #### [facility] [address] Capillary blood glucose pete urement by glucometer (mass/volume)Ordered By: Emily Winn on 03-29-2024 Glucose [Mass/Vol] 204 mg/dL Normal [facility] Comment on above: Random Glucose Refer ence Range is dependent on time and content of last meal. Glucose of more than 200 mg/dL in a nonstressed, ambulatory subject supports the diagnosis of Diabetes Mellitus. Result Comment: [place] Glucose Reference Range is dependent on time and content of last meal. Glucose of more than 200 mg/dL in a nonstressed, ambulatory subject supports the diagnosis of Diabetes Mellitus. PERFORMED BY: [address] [place] [address] PATHOLOGIST [employer] LE[employer] MARLYN MCKEON M.D. Performed By: #### C BC, MG, PHOS, CMP #### [address] Carbon dioxide, total [Moles /volume] in Serum or PlasmaOrdered By: Emily Winn on 03-29-2024 CO2 [Moles/Vol] 23.0 mmol/L Normal 21.0-31.0 [facility] Comment on above: Performed By: #### B MP, MG, CBC #### [address] Chloride [Moles/volume] in S vandana or PlasmaOrdered By: Emily Winn on 03-29-2024 Chloride [Moles/Vol] 101 mmol/L Normal 98-107 [facility] Comment on above: Performed By: #### B MP, MG, CBC #### [address] Complete Blood Count Auto Di ffon 03-29-2024 Mean Corpuscular HGB Conc 33.1 g/dL Normal 32.5-35.6 [facility] Comment on above: Performed By: #### G LULS #### Point of Care testing , Monocytes/100 WBC (Bld) 16.02 % Normal 0.00-20.00 [facility] Comment on above: Performed By: #### G LULS #### Point of Care testing , NRBC% 0.1 /100{WBC} Normal 0-0.5 [facility] Comment on above: Performed By: #### G LULS #### Point of Care testing , Creatine kinase [Enzymatic a ctivity/volume] in Serum or PlasmaOrdered By: Emily Winn on 03-29-2024 CK [Catalytic activity/Vol] 37 U/L Normal 30-223 [facility] Comment on above: Result Comment: PERF ORMED BY: [place] [address] PATHOLOGIST [employer] LEAD MARLYN MCKEON M.D. Performed By: #### G LULS #### Point of Care testing , Creatinine [Mass/volume] in Serum or PlasmaOrdered By: Emily Winn on 03-29-2024 Creatinine [Mass/Vol] 0.74 mg/dL Normal 0.70-1.30 [facility] Comment on above: Performed By: #### B MP, MG, CBC #### [facility] [address] Erythrocyte Sedimentation Ra devaughn 03-29-2024 ESR (Bld) [Velocity] 12 mm/h Normal 0-14 [facility] Comment on above: Result Comment: PERF ORMED BY: [place] [address] PATHOLOGIST [employer] LEAD MARLYN MCKEON M.D. Performed By: #### G LULS #### Point of Care testing , Erythrocyte distribution wid th [Ratio] by Automated countOrdered By: Emily Winn on 03-29-2024 Erythrocyte distribution width (RBC) [Ratio] 13.6 % Normal 12.0-14.8 [facility] Comment on above: Performed By: #### G LULS #### Point of Care testing , Erythrocyte sedimentation ra te by Photometric methodOrdered By: Emily Winn on 03-29-2024 ESR Photometric method (Bld) [Velocity] 12 mm/hr 0-14 [facility] Erythrocytes [#/volume] in B lood by Automated countOrdered By: Emily Winn on 03-29-2024 RBC (Bld) [#/Vol] 5.15 10*6/uL Normal 3.90-5.60 [facility] Comment on above: Performed By: #### G LULS #### Point of Care testing , Glucose [Mass/volume] in Ser um or PlasmaOrdered By: Emily Winn on 03-29-2024 Glucose [Mass/Vol] 201 mg/dL High 70-100 [facility] Comment on above: ADA recommended refe rence rangeRandom Glucose Reference Range is dependent on time and content of last meal. Glucose of more than 200 mg/dL in a nonstressed, ambulatory subject supports the diagnosis of Diabetes Mellitus. Result Comment: [place] Glucose Reference Range is dependent on time and content of last meal. Glucose of more than 200 mg/dL in a nonstressed, ambulatory subject supports the diagnosis of Diabetes Mellitus. ADA recommended reference range Performed By: #### B MP, MG, CBC #### [address] Hematocrit [Volume Fraction] of Blood by Automated countOrdered By: Emily Winn on 03-29-2024 Hematocrit (Bld) [Volume fraction] 45.6 % Normal 38.8-50.0 [facility] Comment on above: Performed By: #### G LULS #### Point of Care testing , Hemoglobin [Mass/volume] in BloodOrdered By: Emily Winn on 03-29-2024 Hemoglobin (Bld) [Mass/Vol] 15.1 g/dL Normal 13.0-17.0 [facility] Comment on above: Performed By: #### G LULS #### Point of Care testing , Leukocytes [#/volume] correc elizabeth for nucleated erythrocytes in Blood by Automated counOrdered By: Emily Winn on 03-29-2024 WBC corrected for nucl RBC Auto (Bld) [#/Vol] 17.1 10*3/uL High 4.1-10.5 [facility] Leukocytes [#/volume] in Blo od by Automated countOrdered By: Emily Winn on 03-29-2024 WBC (Bld) [#/Vol] 17.1 10*3/uL High 4.1-10.5 [facility] Comment on above: Performed By: #### G LULS #### Point of Care testing , Lymphocytes [#/volume] in Bl ood by Automated countOrdered By: Emily Winn on 03-29-2024 Lymphocytes (Bld) [#/Vol] 2.5 10*3/uL Normal 1.00-4.8 [facility] Comment on above: Performed By: #### G LULS #### Point of Care testing , Lymphocytes/100 leukocytes i n Blood by Automated countOrdered By: Emily Winn on 03-29-2024 Lymphocytes/100 WBC (Bld) 14.7 % Normal . [facility] Comment on above: Performed By: #### G LULS #### Point of Care testing , MCH [Entitic mass] by Automa elizabeth countOrdered By: Emily Winn on 03-29-2024 MCH (RBC) [Entitic mass] 29.3 pg Normal 27.5-35.2 [facility] Comment on above: Performed By: #### G LULS #### Point of Care testing , MCHC Auto (RBC) [Mass/Vol]Or dered By: Emily Winn on 03-29-2024 MCHC (RBC) [Mass/Vol] 33.1 g/dL 32.5-35.6 [facility] MCV [Entitic volume] by Auto mated countOrdered By: Emily Winn on 03-29-2024 MCV (RBC) [Entitic vol] 88.5 fL Normal 83.5-101 [facility] Comment on above: Performed By: #### G LULS #### Point of Care testing , Monocyte distribution width [Entitic volume] in Blood by AutomatedOrdered By: Emily Winn on 03-29-2024 Monocyte distribution width Auto (Bld) [Entitic vol] 16.02 % 0.00-20.00 [facility] Myoglobinon 03-29-2024 Myoglobin [Mass/Vol] 31 ng/mL Normal 28-72 [facility] Comment on above: Result Comment: Perf ormed at: CB - [facility] [place] [id number] Counter Intelligence: Gabriel Chan PhD, Phone: [phone] PERFORMED BY: [place] [address] PATHOLOGIST [employer] LEAD MARLYN MCKEON M.D. Performed By: #### B MP, MG, CBC #### [address] Neutrophils [#/volume] in Bl ood by Automated countOrdered By: Emily Winn on 03-29-2024 Neutrophils (Bld) [#/Vol] 13.3 10*3/uL High 1.8-7.7 [facility] Comment on above: Performed By: #### G LULS #### Point of Care testing , No Panel InformationOrdered By: Emily Winn on 03-29-2024 Estimated GFR (CKD-EPI) > 60.0 mL/Min [facility] Creatinine Clearance (Chem 196.64 [facility] Nucleated erythrocytes [Pres ence] in Blood by Automated countOrdered By: Emily Winn on 03-29-2024 Nucleated RBC Auto Ql (Bld) 0.1 /100{WBC} 0-0.5 [facility] Platelet mean volume [Entiti c volume] in Blood by Automated countOrdered By: Emily Winn on 03-29-2024 Platelet mean volume (Bld) [Entitic vol] 7.4 fL Normal 6.6-10.1 [facility] Comment on above: Performed By: #### G LULS #### Point of Care testing , Platelets [#/volume] in Bloo d by Automated countOrdered By: Emily Winn on 03-29-2024 Platelets (Bld) [#/Vol] 352 10*3/uL Normal 150-450 [facility] Comment on above: Performed By: #### G MARGARITA #### Point of Care testing , Potassium [Moles/volume] in Serum or PlasmaOrdered By: Emily Tatum on 03-29-2024 Potassium [Moles/Vol] 4.4 mmol/L Normal 3.5-5.1 [facility] Comment on above: Performed By: #### B MP, MG, CBC #### [facility] [address] Serum or plasma anion gap de terminationOrdered By: Emily Winn on 03-29-2024 Anion gap [Moles/Vol] 14.4 mmol/L Normal 6.0-15.0 [facility] Comment on above: Performed By: #### B MP, MG, CBC #### [facility] [address] [place] [address] [place] Sodium [Moles/volume] in Ser um or PlasmaOrdered By: Emily Winn on 03-29-2024 Sodium [Moles/Vol] 134 mmol/L Low 136-145 [facility] Comment on above: Performed By: #### B MP, MG, CBC #### [facility] [address] [place] [address] [place] Urea nitrogen [Mass/volume] in Serum or PlasmaOrdered By: Emily Winn on 03-29-2024 Urea nitrogen [Mass/Vol] 15 mg/dL Normal 7-25 [facility] Comment on above: Performed By: #### B MP, MG, CBC #### [facility] [address] [place] [address] [place] Activated partial thrombopla stin time (aPTT) in platelet poor plasma by coagulation aOrdered By: Danial Horan on 03-25-2024 aPTT Coag (PPP) [Time] 30.2 s 25.1-36.5 [facility] Comment on above: A hematocrit value g reater than 55% may lead to inaccurate results in coagulation testing. Patients having hematocrit values >55% require a special collection tube for coagulation studies. Please contact the laboratory at [phone] for redraw instructions. Aerobic Cultureon 03-25-2024 Aerobic [...] Seen 2+ White Blood Cells PERFORMED BY: [place] [address] PATHOLOGIST [employer] LE[employer] MARLYN MCKEON M.D. Normal [facility] Comment on above: Performed By: #### C BC, MG, PHOS, CMP #### [address] Albumin [Mass/volume] in Cer ebral spinal fluidOrdered By: Danial Horan on 03-25-2024 Albumin (CSF) [Mass/Vol] 46 mg/dL High 10-45 [facility] Albumin [Mass/volume] in Ser um or PlasmaOrdered By: Danial Horan on 03-25-2024 Albumin [Mass/Vol] 4.2 g/dL 4.1-5.1 [facility] CSF IgG/albumin ratioOrdered By: Danial Horan on 03-25-2024 IgG/Albumin (CSF) [Mass ratio] 0.13 0.00-0.25 [facility] CSF PCR Panelon 03-25-2024 CSF PCR Panel [...] Varicella zoster virus Not detected PERFORMED BY: [address] [place] [address] PATHOLOGIST [employer] LEAD MARLYN MCKEON M.D. Normal [facility] Comment on above: Performed By: #### C BC, MG, PHOS, CMP #### [address] Capillary blood glucose pete urement by glucometer (mass/volume)Ordered By: Simon Wolfe on 03-25-2024 Glucose [Mass/Vol] 127 mg/dL Normal [facility] Comment on above: Random Glucose Refer ence Range is dependent on time and content of last meal. Glucose of more than 200 mg/dL in a nonstressed, ambulatory subject supports the diagnosis of Diabetes Mellitus. Result Comment: [place] Glucose Reference Range is dependent on time and content of last meal. Glucose of more than 200 mg/dL in a nonstressed, ambulatory subject supports the diagnosis of Diabetes Mellitus. PERFORMED BY: [place] [address] PATHOLOGIST [employer] LEAD MARLYN MCKEON M.D. Performed By: #### B MP, MG, CBC #### [place] [address] [place] Cell Count Differential,CSFo n 03-25-2024 Appearance, CSF Turbid Critically abnormal Clear [facility] Comment on above: Order Comment: Comme nt Tube 1 Performed By: #### C BC, MG, PHOS, CMP #### [place] [address] [place] Color, CSF Red Critically abnormal Colorless [facility] Comment on above: Order Comment: Comme nt Tube 1 Performed By: #### C BC, MG, PHOS, CMP #### [facility] [address] [place] [address] [place] Eosinophil, CSF 2 % High 0-0 [facility] Comment on above: Order Comment: Comme nt Tube 1 Performed By: #### C BC, MG, PHOS, CMP #### [place] [address] [place] Lymphocytes, CSF 19 % Low 40-80 [facility] Comment on above: Order Comment: Comme nt Tube 1 Performed By: #### C BC, MG, PHOS, CMP #### [facility] [address] [place] [address] Monocytes, CSF 7 % Low 15-45 [facility] Comment on above: Order Comment: Comme nt Tube 1 Performed By: #### C BC, MG, PHOS, CMP #### [address] Neutrophils, CSF 72 % High 0-6 [facility] Comment on above: Order Comment: Comme nt Tube 1 Performed By: #### C BC, MG, PHOS, CMP #### [address] [place] [address] Normal [facility] Comment on above: Order Comment: Comme nt Tube 1 Result Comment: The reference interval and other method performance specifications have not been established for this body fluid. The test result must be integrated into the clinical context for interpretation. Performed By: #### C BC, MG, PHOS, CMP #### [address] TNC, CSF 85 Off scale high 0-5 [facility] Comment on above: Order Comment: Comme nt Tube 1 Result Comment: Crit ical value result called at 1233 on 03/25/24 Performed By: #### C BC, MG, PHOS, CMP #### [address] Tube Number Tested, CSF Tube Number: 1 Normal [facility] Comment on above: Order Comment: Comme nt Tube 1 Result Comment: PERF ORMED BY: [place] [address] PATHOLOGIST [employer] LEAD MARLYN MCKEON M.D. Performed By: #### C BC, MG, PHOS, CMP #### [address] Cell Count Differential,CSF #2on 03-25-2024 Appearance, CSF Hazy Critically abnormal Clear [facility] Comment on above: Order Comment: Comme nt Tube 3 Performed By: #### C BC, MG, PHOS, CMP #### [facility] [address] [place] [address] Color, CSF LT PINK Normal Colorless [facility] Comment on above: Order Comment: Comme nt Tube 3 Performed By: #### C BC, MG, PHOS, CMP #### [facility] [address] [place] [address] CSF Supernatant Color Colorless Normal Colorless [facility] Comment on above: Order Comment: Comme nt Tube 3 Performed By: #### C BC, MG, PHOS, CMP #### [facility] [address] [place] [address] Order Comment: Comme nt Tube 1 CSF Volume, Total 9.0 mL Normal [facility] Comment on above: Order Comment: Comme nt Tube 3 Performed By: #### C BC, MG, PHOS, CMP #### [facility] [address] [place] [address] Order Comment: Comme nt Tube 1 Eosinophil, CSF 1 % High 0-0 [facility] Comment on above: Order Comment: Comme nt Tube 3 Performed By: #### C BC, MG, PHOS, CMP #### [facility] [address] [place] [address] Lymphocytes, CSF 29 % Low 40-80 [facility] Comment on above: Order Comment: Comme nt Tube 3 Performed By: #### C BC, MG, PHOS, CMP #### [facility] [address] [place] [address] [place] Monocytes, CSF 8 % Low 15-45 [facility] Comment on above: Order Comment: Comme nt Tube 3 Performed By: #### C BC, MG, PHOS, CMP #### [facility] [address] [place] [address] [place] Neutrophils, CSF 62 % High 0-6 [facility] Comment on above: Order Comment: Comme nt Tube 3 Performed By: #### C BC, MG, PHOS, CMP #### [facility] [address] [place] [address] RBC, CSF 3051 Normal [facility] Comment on above: Order Comment: Comme nt Tube 3 Result Comment: The reference interval and other method performance specifications have not been established for this body fluid. The test result must be integrated into the clinical context for interpretation. Performed By: #### C BC, MG, PHOS, CMP #### [facility] [address] TNC, CSF 3 /uL Normal 0-5 [facility] Comment on above: Order Comment: Comme nt Tube 3 Performed By: #### C BC, MG, PHOS, CMP #### [facility] [address] Tube Number Tested, CSF Tube Number: 3 Normal [facility] Comment on above: Order Comment: Comme nt Tube 3 Result Comment: PERF ORMED BY: [place] [address] PATHOLOGIST GUEST SERVICES LEAD MARLYN MCKEON M.D. Performed By: #### C BC, MG, PHOS, CMP #### [address] Cells Counted Total [#] in B patricia fluidOrdered By: Danial Horan on 03-25-2024 Cells Counted Total (Body fld) [#] 85 mm^3 High 0-5 [facility] Comment on above: Critical valueresult calledat 1233 on 03/25/24 Cerebrospinal fluid IgG inde xOrdered By: Danial Horan on 03-25-2024 IgG clearance/Albumin clearance (S+CSF) [Ratio] 0.6 0.0-0.7 [facility] Cerebrospinal fluid appearan ce descriptionOrdered By: Danial Horan on 03-25-2024 Appearance (CSF) Hazy Abnormal Clear [facility] Cerebrospinal fluid eosinoph il percentageOrdered By: Danial Horan on 03-25-2024 Eosinophils/100 WBC (CSF) 2 % High 0-0 [facility] Cerebrospinal fluid lymphocy te percentageOrdered By: Danial Horan on 03-25-2024 Lymphocytes/Leukocytes Manual cnt (CSF) [Pure # fraction] 19 % Low 40-80 [facility] Cerebrospinal fluid monocyte percentageOrdered By: Danial Horan on 03-25-2024 Monocytes/100 WBC (CSF) 7 % Low 15-45 [facility] Cerebrospinal fluid neutroph il percentageOrdered By: Danial Horan on 03-25-2024 Neutrophils/100 WBC (CSF) 72 % High 0-6 [facility] Cerebrospinal fluid post-oneil trifugation appearance determinationOrdered By: Danial Horan on 03-25-2024 Appearance (Spun CSF) Colorless Colorless [facility] Cerebrospinal fluid sample t ube volume measurementOrdered By: Danial Horan on 03-25-2024 Specimen volume (CSF) 9.0 mL [facility] Color CSFOrdered By: Danila Crawley pler on 03-25-2024 Color (CSF) Lt pink Colorless [facility] Erythrocytes [#/volume] in B patricia fluid by Automated countOrdered By: Danial Horan on 03-25-2024 RBC Auto (Body fld) [#/Vol] 3051 mm^3 [facility] Comment on above: The reference interv al and other method performance specifications have not been established for this body fluid. The test result must be integrated into the clinical context for interpretation. Glucose Poct Glucometerson 0 03-25-2024 Glucose [Mass/Vol] 156 mg/dL Normal [facility] Comment on above: Result Comment: [facility] Glucose Reference Range is dependent on time and content of last meal. Glucose of more than 200 mg/dL in a nonstressed, ambulatory subject supports the diagnosis of Diabetes Mellitus. PERFORMED BY: [place] [address] PATHOLOGIST GUEST SERVICES LEAD MARLYN MCKEON M.D. Performed By: #### C BC, MG, PHOS, CMP #### [address] Glucose [Mass/Vol] 114 mg/dL Normal [facility] Comment on above: Result Comment: [facility] Glucose Reference Range is dependent on time and content of last meal. Glucose of more than 200 mg/dL in a nonstressed, ambulatory subject supports the diagnosis of Diabetes Mellitus. PERFORMED BY: [place] [address] PATHOLOGIST GUEST SERVICES LEAD MARLYN MCKEON M.D. Performed By: #### G LULS #### Point of Care testing , Glucose [Mass/Vol] 99 mg/dL Normal [facility] Comment on above: Result Comment: [facility] Glucose Reference Range is dependent on time and content of last meal. Glucose of more than 200 mg/dL in a nonstressed, ambulatory subject supports the diagnosis of Diabetes Mellitus. PERFORMED BY: [place] [address] PATHOLOGIST GUEST SERVICES LEAD MARLYN MCKEON M.D. Performed By: #### G LULS #### Point of Care testing , Glucose [Mass/volume] in Cer ebral spinal fluidOrdered By: Danial Horan on 03-25-2024 Glucose (CSF) [Mass/Vol] 72 mg/dL High 40-70 [facility] Glucose, CSF #2on 03-25-2024 Glucose, CSF #2 72 mg/dL High 40-70 [facility] Comment on above: Order Comment: Comme nt Tube 3 Performed By: #### C BC, MG, PHOS, CMP #### [facility] [address] [place] [address] [place] Glucose, Spinal Fluidon 02-26 Glucose, Spinal Fluid 72 mg/dL High 40-70 [facility] Comment on above: Order Comment: Comme nt Tube 1 Performed By: #### C BC, MG, PHOS, CMP #### [facility] [address] [place], [place] [id number] [place] Gram Stainon 03-25-2024 Microscopic observation Gram stain Nom (Unsp spec) PER LAB PROTOCAL - WHEN PCR ORDERED, A CULTURE MUST BE ORDERED. Tube Number for CSF Microbiology: 2 Gram Stain Result No Bacteria Seen 2+ White Blood Cells PERFORMED BY: [place] [address] PATHOLOGIST GUEST SERVICES LEAD MARLYN MCKEON M.D. Normal [facility] Comment on above: Performed By: #### C BC, MG, PHOS, CMP #### [facility] [address] [place] [address] Gram stain for investigation of transfusion reactionOrdered By: Danial Horan on 03-25-2024 Microscopic observation Gram stain Nom (Unsp spec) [facility] Microscopic observation Gram stain Nom (Unsp spec) No Anaerobes Isolated 3 Days Fir [facility] INR in Platelet poor plasma by Coagulation assayOrdered By: Danial Horan on 03-25-2024 INR Coag (PPP) [Relative time] 1.0 {INR} Normal [facility] Comment on above: INR Therapeutic Rang e [...] on 03-25-2024 IR guided lumbar puncture LP 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 Cumulative Air Kerma in mGy: 31.4 [...] Mert Ferreira M.D.03/25/2024 12:51 PM Dictation Location: [place] [address] Transcribed By: [facility] 03/25/24 1251 Dictated By: Mert Ferreira DO 03/25/24 1247 Signed By: 03/25/24 1251 Normal [facility] IgG [Mass/volume] in Cerebra l spinal fluidOrdered By: Danial Horan on 03-25-2024 IgG (CSF) [Mass/Vol] 6.0 mg/dL 0.0-10.3 [facility] IgG [Mass/volume] in Serum o r PlasmaOrdered By: Danial Horan on 03-25-2024 IgG [Mass/Vol] 868 mg/dL 603-1613 [facility] IgG synthesis rate [Mass/tonya e] in Serum and CSF by calculationOrdered By: Danial Horan on 03-25-2024 IgG synthesis rate Calc (S+CSF) [Mass/Time] 5.9 mg/day High -9.9 TO +3.3 [facility] Comment on above: Performed at: [address] [id number] Director: Gabriel Chan PhD, Phone: [phone] [facility] 03-25-2024 L Specimen: [id number] Re ceived: 03/25/24 Status: MEDINA Req Num: [id number] Spec Type: Cytology Subm Dr: Mert Ferreira DO Tissues: A CSF (CSF) Procedures: Cyto Prepstain, DIFF QWIK, PAPSTN Age/ Patient Sex Location Account Attending Physician Bhumika Umana JR 48/M [id number] Simon Wolfe MD SPEC NUM: [id number] RECD: 03/25/24 STATUS: MEDINA KIGN NUM: [id number] SOL: 03/25/24- DR: Mert Ferreira DO ENTERED: 03/25/24 [facility] DR: Danial Horan DO SPEC TYPE: Cytology DEPT: CN ENTERED BY: [id number] RECV BY: [id number] ORDERED: Cyto Prepstain, DIFF QWIK, PAPSTN ORDERED: Cyto Prepstain, DIFF QWIK, PAPSTN Pathological Diagnosis Cerebrospinal fluid: Negative for malignant cells. Clinical Information Bilateral hand weakness Gross Description Received is .5 ml pale pink hazy unfixed fluid for cytology said to have been obtained as spinal fluid. Cytospin slides are stained with Papanicolaou and Diff-Quik stains.(RI/de) CPT Codes 58186 -------- -------- Specimen: [id number] Received: 03/25/24 Status: MEDINA Danielarnulfo Num: [id number] Spec Type: Cytology Subm Dr: Mert Ferreira DO Tissues: A CSF (CSF) Procedures: Cyto Prepstain, DIFF QWIK, PAPSTN -------- Patient: Bhumika Umana JR [id number] (Continued) -------- Signed (signature on file) Jyoti Gary MD 03/26/24 1447 Normal [facility] MR cervical spine wo/w conon 03-25-2024 MR cervical spine wo/[place] [address] MRI Report Signed Patient: Bhumika Umana JR MR#: [id number] : 1975 Acct:[id number] Age/Sex: 48 / M ADM Date: 03/23/24 Loc: Room: [address] [place] [address] Type: ADM IN Attending Dr: Simon Wolfe [...] Pal Oconnor M.D.03/25/2024 12:45 PM Dictation Location: [place] [address] Transcribed By: [facility] 03/25/24 1245 Dictated By: Pal Oconnor II, MD 03/25/24 1237 Signed By: 03/25/24 1245 Normal [facility] Meningitis+Encephalitis path ogens DNA and RNA panel - Cerebral spinal fluid by BLAYNE wiOrdered By: Danial Horan on 03-25-2024 Meningitis+Encephaliti s pathogens DNA and RNA panel BLAYNE+non-probe (CSF) [facility] No Panel InformationOrdered By: Danial Horan on 03-25-2024 CSF Myelin Basic Protein 2.7 ng/mL 0.0-4.7 [facility] Comment on above: Results of this test are labeled for research purposes onlyby the assay's rn or lpn. The performancecharacteristics of this assay have not been established bythe rn or lpn. The result should not be used fortreatment or for diagnostic purposes without confirmationof the diagnosis by another medically establisheddiagnostic product or procedure. The performancecharacteristics were determined by [facility].Performed at: - [address] [id number] Director: Mariano Jean MD, Phone: [phone] CSF Tube Number Tube number: 3 [facility] Partial Thromboplastin Timeo n 03-25-2024 aPTT Coag (Bld) [Time] 30.2 s Normal 25.1-36.5 [facility] Comment on above: Result Comment: A he matocrit value greater than 55% may lead to inaccurate results in coagulation testing. Patients having hematocrit values >55% require a special collection tube for coagulation studies. Please contact the laboratory at [phone] for redraw instructions. PERFORMED BY: [facility] [address] [place] [address] PATHOLOGIST GUEST SERVICES LEAD MARLYN MCKEON M.D. Performed By: #### G LULS #### Point of Care testing , Protein [Mass/volume] in Cer ebral spinal fluidOrdered By: Danial Horan on 03-25-2024 Protein (CSF) [Mass/Vol] 84 mg/dL High 15-45 [facility] Protein fractions.oligoclona l bands.intrathecal [Presence] in Serum and CSFOrdered By: Danial Horan on 03-25-2024 Protein fractions.oligoclonal bands.intrathecal Ql (S+CSF) Comment . [facility] Comment on above: Zero (0) oligoclonal bands were observed in the CSF.Interpretation: Criteria for Positivity: Four (4) or more oligoclonalbands observed only in the CSF have been shown to be mostconsistent with MS using our method. [Fortini , Shayy Werner, and Desean JA: Cerebrospinal FluidOligoclonal Bands in [...] using IsoelectricFocusing (IEF) and immunoblotting methodology.Performed at: [address] [id number] Director: Gabriel Chan PhD, Phone: [phone] Prothrombin time (PT)Ordered By: Danial Horan on 03-25-2024 PT Coag (PPP) [Time] 11.1 s Normal 9.0-12.9 [facility] Comment on above: A hematocrit value g reater than 55% may lead to inaccurate results in coagulation testing. Patients having hematocrit values >55% require a special collection tube for coagulation studies. Please contact the laboratory at [phone] for redraw instructions. Result Comment: A he matocrit value greater than 55% may lead to inaccurate results in coagulation testing. Patients having hematocrit values >55% require a special collection tube for coagulation studies. Please contact the laboratory at [phone] for redraw instructions. Performed By: #### G LULS #### Point of Care testing , Total Protein, CSF #2on 02-26 Total Protein, CSF #2 84 mg/dL High 15-45 [facility] Comment on above: Order Comment: Comme nt Tube 3 Result Comment: PERF ORMED BY: [facility] [address] [address] PATHOLOGIST GUEST SERVICES LEAD MARLYN MCKEON M.D. Performed By: #### C BC, MG, PHOS, CMP #### [facility] [address] [place] [address] Total Protein, Spinal Fluido n 03-25-2024 Total Protein, Spinal Fluid 116 mg/dL High 15-45 [facility] Comment on above: Order Comment: Comme nt Tube 1 Result Comment: PERF ORMED BY: [place] [address] PATHOLOGIST GUEST SERVICES LEAD MARLYN MCKEON M.D. Performed By: #### C BC, MG, PHOS, CMP #### [address] Alanine aminotransferase [En zymatic activity/volume] in Serum or PlasmaOrdered By: Elder Iyer on 03-24-2024 ALT [Catalytic activity/Vol] 24 U/L Normal 7-52 [facility] Comment on above: Performed By: #### C BC, MG, PHOS, CMP #### [place] [address] [place] Albumin [Mass/volume] in Ser um or Plasma by Bromocresol green (BCG) dye binding methoOrdered By: Elder Iyer on 03-24-2024 Albumin BCG dye [Mass/Vol] 4.1 g/dL 3.5-5.7 [facility] Alkaline phosphatase [Enzyma tic activity/volume] in Serum or PlasmaOrdered By: Elder Iyer on 03-24-2024 ALP [Catalytic activity/Vol] 59 U/L Normal 34-104 [facility] Comment on above: Performed By: #### C BC, MG, PHOS, CMP #### [facility] [address] [place] [address] [place] Aspartate aminotransferase [ Enzymatic activity/volume] in Serum or PlasmaOrdered By: Elder Iyer on 03-24-2024 AST [Catalytic activity/Vol] 14 U/L Normal 13-39 [facility] Comment on above: Performed By: #### C BC, MG, PHOS, CMP #### [facility] [address] [place] [address] [place] Automated basophil %Ordered By: Elder Iyer on 03-24-2024 Basophils/100 WBC (Bld) 0.5 % Normal . [facility] Comment on above: Performed By: #### C BC, MG, PHOS, CMP #### [address] Automated basophil countOrde red By: Elder Iyer on 03-24-2024 Basophils (Bld) [#/Vol] 0.1 10*3/uL Normal 0.0-0.2 [facility] Comment on above: Result Comment: PERF ORMED BY: [place] [address] PATHOLOGIST GUEST SERVICES LEAD MARLYN MCKEON M.D. Performed By: #### C BC, MG, PHOS, CMP #### [address] Automated blood monocyte cou ntOrdered By: Elder Iyer on 03-24-2024 Monocytes (Bld) [#/Vol] 1.5 10*3/uL High 0.0-0.8 [facility] Comment on above: Performed By: #### C BC, MG, PHOS, CMP #### [address] Automated eosinophil %Ordere d By: Elder Iyer on 03-24-2024 Eosinophils/100 WBC (Bld) 0.6 % Normal . [facility] Comment on above: Performed By: #### C BC, MG, PHOS, CMP #### [address] Automated eosinophil countOr dered By: Elder Iyer on 03-24-2024 Eosinophils (Bld) [#/Vol] 0.1 10*3/uL Normal 0.0-0.45 [facility] Comment on above: Performed By: #### C BC, MG, PHOS, CMP #### [address] Automated monocyte %Ordered By: Elder Iyer on 03-24-2024 Monocytes/100 WBC (Bld) 8.3 % Normal . [facility] Comment on above: Performed By: #### C BC, MG, PHOS, CMP #### [address] Automated neutrophil %Ordere d By: Elder Iyer on 03-24-2024 Neutrophils/100 WBC (Bld) 57.7 % Normal . [facility] Comment on above: Performed By: #### C BC, MG, PHOS, CMP #### [address] Bilirubin.total [Mass/volume ] in Serum or PlasmaOrdered By: Elder Iyer on 03-24-2024 Bilirubin [Mass/Vol] 0.8 mg/dL Normal 0.3-1.0 [facility] Comment on above: Performed By: #### C BC, MG, PHOS, CMP #### [address] Calcium [Mass/volume] in Ser um or PlasmaOrdered By: Elder Iyer on 03-24-2024 Calcium [Mass/Vol] 8.8 mg/dL Normal 8.6-10.3 [facility] Comment on above: Performed By: #### C BC, MG, PHOS, CMP #### [address] Carbon dioxide, total [Moles /volume] in Serum or PlasmaOrdered By: Elder Iyer on 03-24-2024 CO2 [Moles/Vol] 28.6 mmol/L Normal 21.0-31.0 [facility] Comment on above: Performed By: #### C BC, MG, PHOS, CMP #### [facility] [address] [place] [address] [place] Chloride [Moles/volume] in S vandana or PlasmaOrdered By: Elder Iyer on 03-24-2024 Chloride [Moles/Vol] 101 mmol/L Normal 98-107 [facility] Comment on above: Performed By: #### C BC, MG, PHOS, CMP #### [address] Complete Blood Count Auto Di ffon 03-24-2024 Mean Corpuscular HGB Conc 33.3 g/dL Normal 32.5-35.6 [facility] Comment on above: Performed By: #### C BC, MG, PHOS, CMP #### [address] NRBC% 0.2 /100{WBC} Normal 0-0.5 [facility] Comment on above: Performed By: #### C BC, MG, PHOS, CMP #### [address] Comprehensive Metabolic Pane rayshawn 03-24-2024 Albumin [Mass/Vol] 4.1 g/dL Normal 3.5-5.7 [facility] Comment on above: Performed By: #### C BC, MG, PHOS, CMP #### [address] Creatinine Clr Calc Pharmacy 164.23 Normal [facility] Comment on above: Performed By: #### C BC, MG, PHOS, CMP #### [address] GFR/1.73 sq M.predicted MDRD (S/P/Bld) [Vol rate/Area] mL/min/{1.73_m2} Normal [facility] Comment on above: Performed By: #### C BC, MG, PHOS, CMP #### [address] Creatinine [Mass/volume] in Serum or PlasmaOrdered By: Elder Iyer on 03-24-2024 Creatinine [Mass/Vol] 0.88 mg/dL Normal 0.70-1.30 [facility] Comment on above: Performed By: #### C BC, MG, PHOS, CMP #### [address] Erythrocyte distribution wid th [Ratio] by Automated countOrdered By: Elder Iyer on 03-24-2024 Erythrocyte distribution width (RBC) [Ratio] 13.8 % Normal 12.0-14.8 [facility] Comment on above: Performed By: #### C BC, MG, PHOS, CMP #### [facility] [address] Erythrocytes [#/volume] in B lood by Automated countOrdered By: Elder Iyer on 03-24-2024 RBC (Bld) [#/Vol] 5.07 10*6/uL Normal 3.90-5.60 [facility] Comment on above: Performed By: #### C BC, MG, PHOS, CMP #### [facility] [address] Glucose Poct Glucometerson 0 03-24-2024 Glucose [Mass/Vol] 162 mg/dL Normal [facility] Comment on above: Result Comment: [place] Glucose Reference Range is dependent on time and content of last meal. Glucose of more than 200 mg/dL in a nonstressed, ambulatory subject supports the diagnosis of Diabetes Mellitus. PERFORMED BY: [place] [address] PATHOLOGIST GUEST SERVICES LEAD MARLYN MCKEON M.D. Performed By: #### C BC, MG, PHOS, CMP #### [facility] [address] [place] [address] Commemt1 Glu2: Cleaned Meter Normal [facility] Comment on above: Result Comment: PERF ORMED BY: [place] [address] PATHOLOGIST GUEST SERVICES LEAD MARLYN MCKEON M.D. Performed By: #### G LULS #### Point of Care testing , Glucose [Mass/Vol] 114 mg/dL Normal [facility] Comment on above: Result Comment: [place] [facility] Glucose Reference Range is dependent on time and content of last meal. Glucose of more than 200 mg/dL in a nonstressed, ambulatory subject supports the diagnosis of Diabetes Mellitus. Performed By: #### G LULS #### Point of Care testing , Commemt1 Glu2: Cleaned Meter Normal [facility] Comment on above: Result Comment: PERF ORMED BY: [place] [address] PATHOLOGIST GUEST SERVICES LEAD MARLYN MCKEON M.D. Performed By: #### B MP, MG, CBC #### [facility] [address] [place] [address] Glucose [Mass/Vol] 126 mg/dL Normal [facility] Comment on above: Result Comment: [place] Glucose Reference Range is dependent on time and content of last meal. Glucose of more than 200 mg/dL in a nonstressed, ambulatory subject supports the diagnosis of Diabetes Mellitus. Performed By: #### B MP, MG, CBC #### [address] Glucose [Mass/Vol] 128 mg/dL Normal [facility] Comment on above: Result Comment: [place] [facility] Glucose Reference Range is dependent on time and content of last meal. Glucose of more than 200 mg/dL in a nonstressed, ambulatory subject supports the diagnosis of Diabetes Mellitus. PERFORMED BY: [place] [address] PATHOLOGIST GUEST SERVICES LEAD MARLYN MCKEON M.D. Performed By: #### G LULS #### Point of Care testing , Glucose [Mass/Vol] 125 mg/dL Normal [facility] Comment on above: Result Comment: [place] Glucose Reference Range is dependent on time and content of last meal. Glucose of more than 200 mg/dL in a nonstressed, ambulatory subject supports the diagnosis of Diabetes Mellitus. PERFORMED BY: [place] [address] PATHOLOGIST GUEST SERVICES LEAD MARLYN MCKEON M.D. Performed By: #### G LULS #### Point of Care testing , Glucose [Mass/volume] in Ser um or PlasmaOrdered By: Elder Iyer on 03-24-2024 Glucose [Mass/Vol] 136 mg/dL Significant change up 70-100 [facility] Comment on above: [place]: 241 on -[id number] recommended reference rangeRandom Glucose Reference Range is dependent on time and content of last meal. Glucose of more than 200 mg/dL in a nonstressed, ambulatory subject supports the diagnosis of Diabetes Mellitus. Result Comment: [place] Glucose Reference Range is dependent on time and content of last meal. Glucose of more than 200 mg/dL in a nonstressed, ambulatory subject supports the diagnosis of Diabetes Mellitus. ADA recommended reference range Performed By: #### C BC, MG, PHOS, CMP #### [facility] [address] Hematocrit [Volume Fraction] of Blood by Automated countOrdered By: Elder Iyer on 03-24-2024 Hematocrit (Bld) [Volume fraction] 44.7 % Normal 38.8-50.0 [facility] Comment on above: Performed By: #### C BC, MG, PHOS, CMP #### [address] Hemoglobin [Mass/volume] in BloodOrdered By: Elder Iyer on 03-24-2024 Hemoglobin (Bld) [Mass/Vol] 14.9 g/dL Normal 13.0-17.0 [facility] Comment on above: Performed By: #### C BC MG, PHOS, CMP #### [address] Leukocytes [#/volume] correc elizabeth for nucleated erythrocytes in Blood by Automated counOrdered By: Elder Iyer on 03-24-2024 WBC corrected for nucl RBC Auto (Bld) [#/Vol] 18.2 10*3/uL High 4.1-10.5 [facility] Leukocytes [#/volume] in Blo od by Automated countOrdered By: Elder Iyer on 03-24-2024 WBC (Bld) [#/Vol] 18.2 10*3/uL High 4.1-10.5 [facility] Comment on above: Performed By: #### C BC, MG, PHOS, CMP #### [facility] [address] [place] [address] [place] Lymphocytes [#/volume] in Bl ood by Automated countOrdered By: Elder Iyer on 03-24-2024 Lymphocytes (Bld) [#/Vol] 6.0 10*3/uL High 1.00-4.8 [facility] Comment on above: Performed By: #### C BC, MG, PHOS, CMP #### [address] Lymphocytes/100 leukocytes i n Blood by Automated countOrdered By: Elder Iyer on 03-24-2024 Lymphocytes/100 WBC (Bld) 32.9 % Normal . [facility] Comment on above: Performed By: #### C BC, MG, PHOS, CMP #### [address] MCH [Entitic mass] by Automa elizabeth countOrdered By: Elder Iyer on 03-24-2024 MCH (RBC) [Entitic mass] 29.3 pg Normal 27.5-35.2 [facility] Comment on above: Performed By: #### C BC, MG, PHOS, CMP #### [address] MCHC Auto (RBC) [Mass/Vol]Or dered By: Elder Iyer on 03-24-2024 MCHC (RBC) [Mass/Vol] 33.3 g/dL 32.5-35.6 [facility] MCV [Entitic volume] by Auto mated countOrdered By: Elder Iyer on 03-24-2024 MCV (RBC) [Entitic vol] 88.2 fL Normal 83.5-101 [facility] Comment on above: Performed By: #### C BC, MG, PHOS, CMP #### [facility] [address] [place] [address] Magnesium [Mass/volume] in S vandana or PlasmaOrdered By: Elder Iyer on 03-24-2024 Magnesium [Mass/Vol] 2.1 mg/dL Normal 1.9-2.7 [facility] Comment on above: Result Comment: PERF ORMED BY: [place] [address] PATHOLOGIST [employer] LEAD MARLYN MCKEON M.D. Performed By: #### C BC, MG, PHOS, CMP #### [address] Neutrophils [#/volume] in Bl ood by Automated countOrdered By: Elder Iyer on 03-24-2024 Neutrophils (Bld) [#/Vol] 10.5 10*3/uL High 1.8-7.7 [facility] Comment on above: Performed By: #### C BC, MG, PHOS, CMP #### [facility] [address] No Panel InformationOrdered By: Elder Iyer on 03-24-2024 Bedside Glucose Comment Glu2: cleaned meter [facility] Estimated GFR (CKD-EPI) > 60.0 mL/Min [facility] Creatinine Clearance (Chem 164.23 [facility] Nucleated erythrocytes [Pres ence] in Blood by Automated countOrdered By: Elder Iyer on 03-24-2024 Nucleated RBC Auto Ql (Bld) 0.2 /100{WBC} 0-0.5 [facility] Phosphate [Mass/volume] in S vandana or PlasmaOrdered By: Elder Iyer on 03-24-2024 Phosphate [Mass/Vol] 4.2 mg/dL Normal 2.5-4.5 [facility] Comment on above: Performed By: #### C BC, MG, PHOS, CMP #### [facility] [address] [place] [address] Platelet mean volume [Entiti c volume] in Blood by Automated countOrdered By: Elder Iyer on 03-24-2024 Platelet mean volume (Bld) [Entitic vol] 7.6 fL Normal 6.6-10.1 [facility] Comment on above: Performed By: #### C BC, MG, PHOS, CMP #### [facility] [address] [place] [address] [place] Platelets [#/volume] in Bloo d by Automated countOrdered By: Elder Iyer on 03-24-2024 Platelets (Bld) [#/Vol] 364 10*3/uL Normal 150-450 [facility] Comment on above: Performed By: #### C BC, MG, PHOS, CMP #### [facility] [address] [place] [address] Potassium [Moles/volume] in Serum or PlasmaOrdered By: Elder Iyer on 03-24-2024 Potassium [Moles/Vol] 3.9 mmol/L Normal 3.5-5.1 [facility] Comment on above: Performed By: #### C BC, MG, PHOS, CMP #### [address] Protein [Mass/volume] in Ser um or PlasmaOrdered By: Elder Iyer on 03-24-2024 Protein [Mass/Vol] 6.5 g/dL Normal 6.4-8.9 [facility] Comment on above: Performed By: #### C BC, MG, PHOS, CMP #### [address] Serum globulin measurement b y calculation (mass/volume)Ordered By: Elder Iyer on 03-24-2024 Globulin (S) [Mass/Vol] 2.4 g/dL [facility] Comment on above: Performed By: #### C BC, MG, PHOS, CMP #### [facility] [address] [place] [address] Serum or plasma albumin/glob ulin mass ratioOrdered By: Elder Iyer on 03-24-2024 Albumin/Globulin [Mass ratio] 1.7 {ratio} [facility] Comment on above: Performed By: #### C BC, MG, PHOS, CMP #### [address] Serum or plasma anion gap de terminationOrdered By: Elder Iyer on 03-24-2024 Anion gap [Moles/Vol] 12.3 mmol/L Normal 6.0-15.0 [facility] Comment on above: Performed By: #### C BC, MG, PHOS, CMP #### [address] Sodium [Moles/volume] in Ser um or PlasmaOrdered By: Elder Iyer on 03-24-2024 Sodium [Moles/Vol] 138 mmol/L Significant change down 136-145 [facility] Comment on above: Delta: 132 on Performed By: #### C BC, MG, PHOS, CMP #### [facility] [address] [place] [address] Urea nitrogen [Mass/volume] in Serum or PlasmaOrdered By: Elder Iyer on 03-24-2024 Urea nitrogen [Mass/Vol] 25 mg/dL Normal 7-25 [facility] Comment on above: Performed By: #### C BC, MG, PHOS, CMP #### [facility] [address] [place] [address] A1C with Estimated Average Magdalena iveycally 03-23-2024 Glucose [Mass/Vol] 166 mg/dL Normal [facility] Comment on above: Result Comment: PERF ORMED BY: [place] [address] PATHOLOGIST [employer] LEAD MARLYN MCKEON M.D. Performed By: #### G LULS #### Point of Care testing , BNP ser/plasOrdered By: Veronika Gonzales on 03-23-2024 Natriuretic peptide B (Bld) [Mass/Vol] 27.0 pg/mL Normal 5-100 [facility] Comment on above: Result Comment: PERF ORMED BY: [place] [address] PATHOLOGIST [employer] LEAD MARLYN MCKEON M.D. Performed By: #### C BC, MG, PHOS, CMP #### [facility] [address] [place] [address] Basic Metabolic Panelon 02-26 Anion gap [Moles/Vol] 16.0 mmol/L High 6.0-15.0 [facility] Comment on above: Performed By: #### G LULS #### Point of Care testing , Calcium [Mass/Vol] 9.2 mg/dL Normal 8.6-10.3 [facility] Comment on above: Performed By: #### G LULS #### Point of Care testing , Chloride [Moles/Vol] 97 mmol/L Low 98-107 [facility] Comment on above: Performed By: #### G LULS #### Point of Care testing , CO2 [Moles/Vol] 23.4 mmol/L Normal 21.0-31.0 [facility] Comment on above: Performed By: #### G LULS #### Point of Care testing , Creatinine [Mass/Vol] 0.75 mg/dL Normal 0.70-1.30 [facility] Comment on above: Performed By: #### G LULS #### Point of Care testing , Creatinine Clr Calc Pharmacy 195.42 Normal [facility] Comment on above: Performed By: #### G LULS #### Point of Care testing , GFR/1.73 sq M.predicted MDRD (S/P/Bld) [Vol rate/Area] mL/min/{1.73_m2} Normal [facility] Comment on above: Performed By: #### G LULS #### Point of Care testing , Glucose [Mass/Vol] 241 mg/dL Significant change up 70-100 [facility] Comment on above: Result Comment: [facility] Glucose Reference Range is dependent on time and content of last meal. Glucose of more than 200 mg/dL in a nonstressed, ambulatory subject supports the diagnosis of Diabetes Mellitus. ADA recommended reference range Performed By: #### G LULS #### Point of Care testing , Potassium [Moles/Vol] 4.4 mmol/L Normal 3.5-5.1 [facility] Comment on above: Performed By: #### G LULS #### Point of Care testing , Sodium [Moles/Vol] 132 mmol/L Low 136-145 [facility] Comment on above: Performed By: #### G LULS #### Point of Care testing , Urea nitrogen [Mass/Vol] 22 mg/dL Normal 7-25 [facility] Comment on above: Performed By: #### G LULS #### Point of Care testing , Anion gap [Moles/Vol] 17.4 mmol/L High 6.0-15.0 [facility] Comment on above: Performed By: #### C BC, MG, PHOS, CMP #### [facility] [address] [place] [address] [place] Calcium [Mass/Vol] 9.4 mg/dL Normal 8.6-10.3 [facility] Comment on above: Performed By: #### C BC, MG, PHOS, CMP #### [facility] [address] [place] [address] [place] Chloride [Moles/Vol] 97 mmol/L Low 98-107 [facility] Comment on above: Performed By: #### C BC, MG, PHOS, CMP #### [facility] [address] [place] [address] [place] CO2 [Moles/Vol] 23.2 mmol/L Normal 21.0-31.0 [facility] Comment on above: Performed By: #### C BC, MG, PHOS, CMP #### [place] [address] [place] Creatinine [Mass/Vol] 0.82 mg/dL Normal 0.70-1.30 [facility] Comment on above: Performed By: #### C BC, MG, PHOS, CMP #### [place] [address] [place] Creatinine Clr Calc Pharmacy 178.94 Normal [facility] Comment on above: Result Comment: PERF ORMED BY: [place] [address] PATHOLOGIST [employer] LEAD MARLYN MCKEON M.D. Performed By: #### C BC, MG, PHOS, CMP #### [place] [address] [place] GFR/1.73 sq M.predicted MDRD (S/P/Bld) [Vol rate/Area] mL/min/{1.73_m2} Normal [facility] Comment on above: Performed By: #### C BC, MG, PHOS, CMP #### [facility] [address] [place] [address] [place] Glucose [Mass/Vol] 342 mg/dL High 70-100 [facility] Comment on above: Result Comment: [place] Glucose Reference Range is dependent on time and content of last meal. Glucose of more than 200 mg/dL in a nonstressed, ambulatory subject supports the diagnosis of Diabetes Mellitus. ADA recommended reference range Performed By: #### C BC, MG, PHOS, CMP #### [facility] [address] Potassium [Moles/Vol] 4.6 mmol/L Normal 3.5-5.1 [facility] Comment on above: Performed By: #### C BC, MG, PHOS, CMP #### [facility] [address] Sodium [Moles/Vol] 133 mmol/L Low 136-145 [facility] Comment on above: Performed By: #### C BC, MG, PHOS, CMP #### [facility] [address] Urea nitrogen [Mass/Vol] 23 mg/dL Normal 7-25 [facility] Comment on above: Performed By: #### C BC, MG, PHOS, CMP #### [facility] [address] Borrelia burgdorferi IgG+IgM Ab [Presence] in Serum by ImmunoassayOrdered By: Danial Horan on 03-23-2024 B. burgdorferi IgG+IgM IA Ql (S) Negative Negative [facility] Comment on above: Lyme antibodies not detected. Reflex testing is notindicated.No laboratory evidence of infection with B. burgdorferi(Lyme disease). Negative results may occur in patientsrecently infected (less than or equal to 14 days) with B.burgdorferi. If recent infection is suspected, repeattesting on a new sample collected in 7 to 14 days isrecommended.Performed at: - [facility] [id number] Director: Gabriel Chan PhD, Phone: [phone] C reactive protein [Mass/vol ume] in Serum or PlasmaOrdered By: Danial Horan on 03-23-2024 CRP [Mass/Vol] < 0.5 mg/dL 0.0-0.5 [facility] C-Reactive Proteinon 024 CRP [Mass/Vol] mg/L Normal 0.0-0.5 [facility] Comment on above: Result Comment: PERF ORMED BY: [place] [address] PATHOLOGIST [employer] LEAD MARLYN MCKEON M.D. Performed By: #### G MARGARITA #### Point of Care testing , Complete Blood Count Auto Di ffon 03-23-2024 Basophils (Bld) [#/Vol] 0.1 10*3/uL Normal 0.0-0.2 [facility] Comment on above: Result Comment: PERF ORMED BY: [place] [address] PATHOLOGIST [employer] LEAD MARLYN MCKEON M.D. Performed By: #### C BC, MG, PHOS, CMP #### [address] Basophils/100 WBC (Bld) 0.5 % Normal . [facility] Comment on above: Performed By: #### C BC, MG, PHOS, CMP #### [facility] [address] [place] [address] [place] Eosinophils (Bld) [#/Vol] 0.0 10*3/uL Normal 0.0-0.45 [facility] Comment on above: Performed By: #### C BC, MG, PHOS, CMP #### [place] [address] [place] Eosinophils/100 WBC (Bld) 0.0 % Normal . [facility] Comment on above: Performed By: #### C BC, MG, PHOS, CMP #### [facility] [address] [place] [address] Erythrocyte distribution width (RBC) [Ratio] 13.9 % Normal 12.0-14.8 [facility] Comment on above: Performed By: #### C BC, MG, PHOS, CMP #### [address] Hematocrit (Bld) [Volume fraction] 47.0 % Normal 38.8-50.0 [facility] Comment on above: Performed By: #### C BC, MG, PHOS, CMP #### [address] Hemoglobin (Bld) [Mass/Vol] 15.9 g/dL Normal 13.0-17.0 [facility] Comment on above: Performed By: #### C BC, MG, PHOS, CMP #### [address] Lymphocytes (Bld) [#/Vol] 1.4 10*3/uL Normal 1.00-4.8 [facility] Comment on above: Performed By: #### C BC, MG, PHOS, CMP #### [address] Lymphocytes/100 WBC (Bld) 8.2 % Normal . [facility] Comment on above: Performed By: #### C BC, MG, PHOS, CMP #### [address] MCH (RBC) [Entitic mass] 29.8 pg Normal 27.5-35.2 [facility] Comment on above: Performed By: #### C BC, MG, PHOS, CMP #### [address] MCV (RBC) [Entitic vol] 88.1 fL Normal 83.5-101 [facility] Comment on above: Performed By: #### C BC, MG, PHOS, CMP #### [address] Mean Corpuscular HGB Conc 33.8 g/dL Normal 32.5-35.6 [facility] Comment on above: Performed By: #### C BC, MG, PHOS, CMP #### [address] Monocyte Distribution Width Not performed Normal 0.00-20.00 [facility] Comment on above: Result Comment: Unab le to calculate MDW because the Absolute Monocyte Count is <0.8. Performed By: #### C BC, MG, PHOS, CMP #### [facility] [address] Monocytes (Bld) [#/Vol] 0.2 10*3/uL Normal 0.0-0.8 [facility] Comment on above: Performed By: #### C BC, MG, PHOS, CMP #### [facility] [address] Monocytes/100 WBC (Bld) 1.0 % Normal . [facility] Comment on above: Performed By: #### C BC, MG, PHOS, CMP #### [address] Neutrophils (Bld) [#/Vol] 15.5 10*3/uL High 1.8-7.7 [facility] Comment on above: Performed By: #### C BC, MG, PHOS, CMP #### [address] Neutrophils/100 WBC (Bld) 90.3 % Normal . [facility] Comment on above: Performed By: #### C BC, MG, PHOS, CMP #### [place] [address] [place] NRBC% 0.1 /100{WBC} Normal 0-0.5 [facility] Comment on above: Performed By: #### C BC, MG, PHOS, CMP #### [address] Platelet mean volume (Bld) [Entitic vol] 7.4 fL Normal 6.6-10.1 [facility] Comment on above: Performed By: #### C BC, MG, PHOS, CMP #### [facility] [address] [place] [address] [place] Platelets (Bld) [#/Vol] 381 10*3/uL Normal 150-450 [facility] Comment on above: Performed By: #### C BC, MG, PHOS, CMP #### [facility] [address] [place] [address] [place] RBC (Bld) [#/Vol] 5.33 10*6/uL Normal 3.90-5.60 [facility] Comment on above: Performed By: #### C BC, MG, PHOS, CMP #### [address] WBC (Bld) [#/Vol] 17.1 10*3/uL High 4.1-10.5 [facility] Comment on above: Performed By: #### C BC, MG, PHOS, CMP #### [address] Creatine Kinaseon 03-23-2024 CK [Catalytic activity/Vol] 37 U/L Normal 30-223 [facility] Comment on above: Performed By: #### C BC, MG, PHOS, CMP #### [address] Creatine kinase [Enzymatic a ctivity/volume] in Serum or PlasmaOrdered By: Danial Horan on 03-23-2024 CK [Catalytic activity/Vol] 34 U/L Normal 30-223 [facility] Comment on above: Result Comment: PERF ORMED BY: [place] [address] PATHOLOGIST [employer] SERVICES LEAD MARLYN MCKEON M.D. Performed By: #### G LULS #### Point of Care testing , ECG 12 lead ECGon 03-23-2024 ECG 12 lead ECG [facility] [place] [address] [place] [address] Electrocardiograph Report Signed Patient: Bhumika Umana JR MR#: [id number] : 1975 Acct:[id number] Age/Sex: 48 / M ADM Date: 03/23/24 Loc: ER Room: Type: [facility] ER Attending Dr: Ordering Provider: Gale [...] ECGs available Confirmed by Gale Gonzales MD ([id number]) on 03/23/2024 2:06:14 AM Referred By: Electronically Signed By: Gale Gonzales MD Transcribed By: MUS Signed By Gale Gonzales MD 02/26 03/20 0206 Normal [facility] Erythrocyte Sedimentation Ra devaughn 03-23-2024 ESR (Bld) [Velocity] 14 mm/h Normal 0-14 [facility] Comment on above: Result Comment: PERF ORMED BY: [place] [address] PATHOLOGIST [employer] SERVICES LEAD MARLYN MCKEON M.D. Performed By: #### G LULS #### Point of Care testing , Erythrocyte sedimentation ra te by Photometric methodOrdered By: Danial Horan on 03-23-2024 ESR Photometric method (Bld) [Velocity] 14 mm/hr 0-14 [facility] Folate [Mass/volume] in Seru m or PlasmaOrdered By: Bola Garcia on 03-23-2024 Folate [Mass/Vol] 13.0 ng/mL >5.9 [facility] Comment on above: Folate reference ran ge: >5.9 ng/mlThe WHO technical consultation on folate and vitamin [id number] has determined that folate concentrations lessthan 4 ng/ml are considered deficient. Glucose Poct Glucometerson 0 03-23-2024 Commemt1 Glu2: Cleaned Meter Normal [facility] Comment on above: Result Comment: PERF ORMED BY: [place] [address] PATHOLOGIST [employer] SERVICES LEAD MARLYN MCKEON M.D. Performed By: #### C BC, MG, PHOS, CMP #### [address] Glucose [Mass/Vol] 166 mg/dL Normal [facility] Comment on above: Result Comment: [place] Glucose Reference Range is dependent on time and content of last meal. Glucose of more than 200 mg/dL in a nonstressed, ambulatory subject supports the diagnosis of Diabetes Mellitus. Performed By: #### C BC, MG, PHOS, CMP #### [facility] [address] [place] [address] Glucose [Mass/Vol] 133 mg/dL Normal [facility] Comment on above: Result Comment: [place] Glucose Reference Range is dependent on time and content of last meal. Glucose of more than 200 mg/dL in a nonstressed, ambulatory subject supports the diagnosis of Diabetes Mellitus. PERFORMED BY: [place] [address] PATHOLOGIST GUEST SERVICES LEAD MARLYN MCKEON M.D. Performed By: #### G LULS #### Point of Care testing , Glucose [Mass/Vol] 180 mg/dL Normal [facility] Comment on above: Result Comment: [facility] Glucose Reference Range is dependent on time and content of last meal. Glucose of more than 200 mg/dL in a nonstressed, ambulatory subject supports the diagnosis of Diabetes Mellitus. PERFORMED BY: [place] [address] PATHOLOGIST G[employer] SERVICES LEAD MARLYN MCKEON M.D. Performed By: #### G LULS #### Point of Care testing , Glucose [Mass/Vol] 216 mg/dL Normal [facility] Comment on above: Result Comment: [place] Glucose Reference Range is dependent on time and content of last meal. Glucose of more than 200 mg/dL in a nonstressed, ambulatory subject supports the diagnosis of Diabetes Mellitus. PERFORMED BY: [place] [address] PATHOLOGIST GUEST SERVICES LEAD MARLYN MCKEON M.D. Performed By: #### G LULS #### Point of Care testing , Commemt1 Glu2: Cleaned Meter Normal [facility] Comment on above: Result Comment: PERF ORMED BY: [place] [address] PATHOLOGIST G[employer] SERVICES LEAD MARLYN MCKEON M.D. Performed By: #### C BC, MG, PHOS, CMP #### [place] [address] [place] Glucose [Mass/Vol] 362 mg/dL Normal [facility] Comment on above: Result Comment: [place] om Glucose Reference Range is dependent on time and content of last meal. Glucose of more than 200 mg/dL in a nonstressed, ambulatory subject supports the diagnosis of Diabetes Mellitus. Performed By: #### C BC, MG, PHOS, CMP #### [address] Glucose mean value [Mass/vol ume] in Blood Estimated from glycated hemoglobinOrdered By: Bola Garcia on 03-23-2024 Average glucose Estimated from glycated hemoglobin (Bld) [Mass/Vol] 166 mg/dL [facility] Hemoglobin A1c percentageOrd ered By: Bola Garcia on 03-23-2024 HbA1c (Bld) [Mass fraction] 7.4 % High 4.3-5.6 [facility] Comment on above: Increased risk for d iabetes: 5.7 - 6.4diabetes: >6.4glycemic control for adults with diabetes: <7.0 Result Comment: Incr eased risk for diabetes: 5.7 - 6.4 diabetes: >6.4 glycemic control for adults with diabetes: <7.0 Performed By: #### G LULS #### Point of Care testing , Lyme, Total Ab with Reflexon 03-23-2024 Lyme Total Antibody Negative Normal Negative [facility] Comment on above: Result Comment: [...] 14 days is recommended. Performed at: - [address] [id number] Counter Intelligence: Gabriel Chan PhD, Phone: [phone] PERFORMED BY: [place] [address] PATHOLOGIST [employer] SERVICES LEAD MARLYN MCKEON M.D. Performed By: #### G LULS #### Point of Care testing , MR head/brain wo/w conon MR head/brain wo/w con [facility] [place] [address] [place] [address] MRI Report Signed Patient: Bhumika Umana JR MR#: [id number] : 1975 Acct:[id number] Age/Sex: 48 / M ADM Date: 03/23/24 Loc: 3T Room: [address] [place] [address] Type: ADM IN Attending Dr: Elder Iyer [...] Gonzales Jr., D.OKim03/23/2024 10:46 AM Dictation Location: [place] [address] Transcribed By: [facility] 03/23/24 1046 Dictated By: Rene Gonzales Jr, DO 03/23/24 1039 Signed By: 03/23/24 1046 Normal [facility] Monocyte distribution width [Entitic volume] in Blood by AutomatedOrdered By: Gale Gonzales on 03-23-2024 Monocyte distribution width Auto (Bld) [Entitic vol] Test not performed % 0.00-20.00 [facility] Comment on above: Unable to calculate MDW because the Absolute Monocyte Count is <0.8. Partial Thromboplastin Timeo n 03-23-2024 aPTT Coag (Bld) [Time] 22.2 s Low 25.1-36.5 [facility] Comment on above: Result Comment: A he matocrit value greater than 55% may lead to inaccurate results in coagulation testing. Patients having hematocrit values >55% require a special collection tube for coagulation studies. Please contact the laboratory at [phone] for redraw instructions. PERFORMED BY: [place] [address] PATHOLOGIST GUE[employer] SERVICES LEAD MARLYN MCKEON M.D. Performed By: #### C BC, MG, PHOS, CMP #### [address] Prothrombin Time INRon 03-23 INR Coag (PPP) [Relative time] 1.0 {INR} Normal [facility] Comment on above: Result Comment: [...] 3 - 4.5 Performed By: #### C BC, MG, PHOS, CMP #### [address] PT Coag (PPP) [Time] 11.7 s Normal 9.0-12.9 [facility] Comment on above: Result Comment: A he matocrit value greater than 55% may lead to inaccurate results in coagulation testing. Patients having hematocrit values >55% require a special collection tube for coagulation studies. Please contact the laboratory at [phone] for redraw instructions. Performed By: #### C BC, MG, PHOS, CMP #### [address] Thyrotropin [Units/volume] i n Serum or PlasmaOrdered By: Bola Garcia on 03-23-2024 TSH Qn 0.48 m[IU]/L Normal 0.45-5.33 [facility] Comment on above: Performed By: #### G LULS #### Point of Care testing , Troponin I High Sensitivityo n 03-23-2024 Troponin I High Sensitivity 3.3 pg/mL Normal 0.0-20.0 [facility] Comment on above: Result Comment: PERF ORMED BY: [facility] [address] [place] [address] PATHOLOGIST [employer] LEAD MARLYN MCKEON M.D. Performed By: #### C BC, MG, PHOS, CMP #### [facility] [address] Troponin I.cardiac [Mass/vol ume] in Serum or Plasma by Detection limit <= 0.01 ng/Ordered By: Gale Gonzales on 03-23-2024 Troponin I.cardiac DL <= 0.01 ng/mL [Mass/Vol] 3.3 pg/mL 0.0-20.0 [facility] Vit. B12/Folate Profileon Folate 13.0 ng/mL Normal >5.9 [facility] Comment on above: Result Comment: Sarah te reference range: >5.9 ng/ml The WHO technical consultation on folate and vitamin b12 deficiencies has determined that folate concentrations less than 4 ng/ml are considered deficient. Performed By: #### G LULS #### Point of Care testing , Vitamin B12 ser/plasOrdered By: Bola Garcia on 03-23-2024 Cobalamin (Vitamin B12) [Mass/Vol] 416 pg/mL Normal 180-914 [facility] Comment on above: Performed By: #### G LULS #### Point of Care testing , Vitamin D 25 Hydroxy Totalon 03-23-2024 Vitamin D 25 Hydroxy Total 21.6 ng/mL Low 30-100 [facility] Comment on above: Result Comment: KAYLEY MIN D STATUS 25(OH)VITAMIN D RANGE (ng/mL) Deficient <20 Insufficient 20 to <30 Sufficient 30 to 100 Reference: Kalee Anton Bischoff-Ferrari HA, et al. Evaluation,treatment, and prevention of vitamin D deficiency; an Endocrine Society clinical practice guideline. JCEM. 2010; 96(7):1911-30. PERFORMED BY: [place] [id number] PATHOLOGIST [employer] LEAD MARLYN MCKEON M.D. Performed By: #### G LULS #### Point of Care testing , Vitamin D+Metabolites [Mass/ volume] in Serum or PlasmaOrdered By: Bola Garcia on 03-23-2024 Vitamin D+Metabolites [Mass/Vol] 21.6 ng/mL Low 30-100 [facility] Comment on above: VITAMIN D STATUS 25( OH)VITAMIN D RANGE (ng/mL) Deficient <20 Insufficient 20 to <30Sufficient 30 to 100Reference: Kalee Anton, Brett SUAREZ, et al. Evaluation,treatment, and prevention of vitamin D deficiency; an Endocrine Society clinical practice guideline. JCEM. 2010; 96(7):1911-30. XR chest 2V*on 03-23-2024 XR chest 2V* [facility] Main [address] [address] XRay Report Signed Patient: Bhumika Umana JR MR#: [id number] : 1975 Acct:[id number] Age/Sex: 48 / M ADM Date: 03/23/24 Loc: Room: [address] [place] [address] Type: ADM IN Attending Dr: Elder Iyer MD Copies to: MD Elder Huddleston MD Ordering Provider: Gale Gonzales MD Date of Service: 03/23/24 XR/XR chest 2V*: Weakness Chest 2 views CLINICAL HISTORY: Weakness in hand since December. COMPARISON: None FINDINGS: Heart normal size. Lungs are clear. No free air. XR/XR chest 2V* IMPRESSION: NO ACUTE CARDIOPULMONARY ABNORMALITY. Impression dictated by: Rene Gonzales Jr. DKimOKim03/23/2024 9:33 AM Dictation Location: [place] [address] Transcribed By: [facility] 03/23/2433 Dictated By: Rene Gonzales Jr, DO 03/23/24932 Signed By: 03/23/24932 Normal [facility] XR ELBOW RT MIN 3 [...] JAKOB MCGHEE Date: 2022-04-23 12:40 Normal [facility] CBC AUTO DIFFon 01-11-2022 BASO # 0.0 103/ul Normal 0.0-0.1 [facility] Comment on above: Performed By: #### C BC #### [facility] Laboratory [address] [place] [address] Dr. Sera Quach Basophils/100 WBC (Bld) 0.4 % Normal 0.2-2.0 [facility] Comment on above: Performed By: #### C BC #### [facility] [address] [place] [address] Dr. Sera Quach EO # 0.3 103/ul Normal 0.0-0.7 [facility] Comment on above: Performed By: #### C BC #### [facility] [address] [place] [address] Dr. Sera Quach Eosinophils/100 WBC (Bld) 2.8 % Normal 0.9-7.0 [facility] Comment on above: Performed By: #### C BC #### [facility] [address] [place] [address] Dr. Sera Quach Erythrocyte distribution width (RBC) [Ratio] 13.1 % Normal 11.0-15.0 [facility] Comment on above: Performed By: #### C BC #### [facility] [address] [place] [address] Dr. Sera Quach Hematocrit (Bld) [Volume fraction] 47.3 % Normal 42.0-54.0 [facility] Comment on above: Performed By: #### C BC #### [facility] [address] [place] [address] Dr. Sera Quach Hemoglobin (Bld) [Mass/Vol] 15.2 g/dL Normal 14.0-18.0 [facility] Comment on above: Performed By: #### C BC #### [facility] [address] [place] [address] Dr. Sera Quach IG # 0.03 10e3/ul Normal 0.00-0.03 [facility] Comment on above: Performed By: #### C BC #### [facility] [address] [place] [address] Dr. Sera Quach IG % 0.3 % Normal 0.0-0.5 [facility] Comment on above: Performed By: #### C BC #### [facility] [address] [place] [address] Dr. Sera Quach LYMPH # 2.3 103/ul Normal 1.2-3.8 [facility] Comment on above: Performed By: #### C BC #### [facility] [address] [place] [address] Dr. Sera Quach Lymphocytes/100 WBC (Bld) 25.5 % Normal 20.5-60.0 [facility] Comment on above: Performed By: #### C BC #### [facility] [address] [place] [address] Dr. Sera Quach MANUAL DIFF REQ NO Normal [facility] Comment on above: Performed By: #### C BC #### [facility] [address] [place] [address] Dr. Sera Quach MCH (RBC) [Entitic mass] 29.2 pg Normal 25.9-34.0 [facility] Comment on above: Performed By: #### C BC #### [facility] [address] [place] [address] Dr. Sera Quach MCHC (RBC) [Mass/Vol] 32.1 g/dL Normal 29.9-35.2 [facility] Comment on above: Performed By: #### C BC #### [facility] [address] [place] [address] [address] Sera Quach MCV (RBC) [Entitic vol] 91.0 fL Normal 80.0-94.0 [facility] Comment on above: Performed By: #### C BC #### [facility] [address] [place] [address] [address] Sera Quach MONO # 0.7 103/ul Normal 0.3-0.8 [facility] Comment on above: Performed By: #### C BC #### [facility] [address] [place] [address] [address] Sera Quach Monocytes/100 WBC (Bld) 7.1 % Normal 1.7-12.0 [facility] Comment on above: Performed By: #### C BC #### [facility] [address] [place] [address] [address] Sera Quach NEUT # 5.9 103/ul Normal 1.4-6.5 [facility] Comment on above: Performed By: #### C BC #### [facility] [address] [place] [address] [address] Sera Quach Neutrophils/100 WBC (Bld) 63.9 % Normal 43.0-75.0 [facility] Comment on above: Performed By: #### C BC #### [facility] [address] [place] [address] [address] Sera Quach Platelet mean volume (Bld) [Entitic vol] 9.3 fL Critically low 9.5-13.5 [facility] Comment on above: Performed By: #### C BC #### [facility] [address] [place] [address] [address] Sera Quach PLT 316 103/ul Normal 150-450 [facility] Comment on above: Performed By: #### C BC #### [facility] [address] [place] [address] [address] Sera Quach RBC 5.20 106/ul Normal 4.70-6.10 [facility] Comment on above: Performed By: #### C BC #### [facility] [address] [place] [address] Dr. Sera Quach WBC 9.2 103/ul Normal 4.0-11.0 [facility] Comment on above: Performed By: #### C BC #### [facility] [address] [place] [address] [address] Sera Quach GLYCOHEMOGLOBIN A1Con 2021 ADA RECOMMENDATION SEE BELOW Normal [facility] Comment on above: Result Comment: ADA RECOMMENDED LIMIT 4.0 - 6.0 ADA THERAPEUTIC TARGET < 7.0 ACTION SUGGESTED > 7.0 Performed By: #### A 1C #### [facility] [address] [place] [address] Dr. Sera Quach Glucose [Mass/Vol] 209 mg/dL Normal [facility] Comment on above: Performed By: #### A 1C #### [facility] [address] [place] [address] Dr. Sera Quach HbA1c (Bld) [Mass fraction] 8.9 % Critically high 4.5-6.2 [facility] Comment on above: Performed By: #### A 1C #### [facility] [address] [place] [address] Dr. Sera Quach LIPID PROFILEon 01-11-2022 CHOL-HDL RATIO NORM SEE BELOW Normal [facility] Comment on above: Result Comment: 3.3 - 4.4 LOW RISK 4.4 - 7.1 AVERAGE RISK 7.1 - 11.0 MODERATE RISK >11.0 HIGH RISK Performed By: #### C MP, LIPID #### [facility] [address] [place] [address] Dr. Sera Quach Cholesterol [Mass/Vol] 154 mg/dL Normal <=200 [facility] Comment on above: Performed By: #### C MP, LIPID #### [facility] [address] [place] [address] Dr. Sera Quach Cholesterol in HDL [Mass/Vol] 39 mg/dL Critically low 40-60 [facility] Comment on above: Performed By: #### C MP, LIPID #### [facility] [address] [place] [address] [address] Sera Quach Cholesterol in LDL [Mass/Vol] 98.0 mg/dL Normal [facility] Comment on above: Performed By: #### C MP, LIPID #### [facility] [address] [place] [address] Dr. Sera Quach Cholesterol.total/Chol esterol in HDL [Mass ratio] 3.9 {ratio} Normal [facility] Comment on above: Performed By: #### C MP, LIPID #### [facility] [address] [place] [address] Dr. Sera Quach HDL NORMAL > or = 60 mg/dl - LO W CARDIOVASCULAR RISK <40 mg/dl - HIGH CARDIOVASCULAR RISK Normal [facility] Comment on above: Performed By: #### C MP, LIPID #### [facility] [address] [place] [address] Dr. Sera Quach LDL CALC NORMAL SEE BELOW Normal [facility] Comment on above: Result Comment: <100 mg/dl OPTIMAL 100 - 129 mg/dl NEAR OR ABOVE OPTIMAL 130 - 159 mg/dl BORDERLINE HIGH 160 - 189 mg/dl HIGH >190 mg/dl VERY HIGH Performed By: #### C MP, LIPID #### [facility] [address] [place] [address] Dr. Sera Quach Triglyceride [Mass/Vol] 85 mg/dL Normal <=150 [facility] Comment on above: Performed By: #### C MP, LIPID #### [facility] [address] [place] [address] Dr. Sera Quach VLDL CALC 17.0 mg/dL Normal [facility] Comment on above: Performed By: #### C MP, LIPID #### [facility] [address] [place] [address] Dr. Sera Quach MICROALBUMIN, RAND URon 12-26 mALB 1.3 mg/L Normal <=30.0 [facility] Comment on above: Performed By: #### M ALBR #### [facility] [address] [place] [address] Dr. Sera Quach PROF 14(COMP METB)on 05-17-2 022 Albumin [Mass/Vol] 3.9 g/dL Normal 3.4-5.0 [facility] Comment on above: Performed By: #### C MP, LIPID #### [facility] [address] [place] [address] Dr. Sera Quach Albumin/Globulin [Mass ratio] 1.1 {ratio} Normal [facility] Comment on above: Performed By: #### C MP, LIPID #### [facility] [address] [place] [address] [address] Sera Quach ALP [Catalytic activity/Vol] 76 U/L Normal 46-116 [facility] Comment on above: Performed By: #### C MP, LIPID #### [facility] [address] [place] [address] Dr. Sera Quach ALT [Catalytic activity/Vol] 64 U/L Critically high 16-63 [facility] Comment on above: Performed By: #### C MP, LIPID #### [facility] [address] [place] [address] Dr. Sera Quach Anion gap [Moles/Vol] 12.7 mmol/L Normal [facility] Comment on above: Performed By: #### C MP, LIPID #### [facility] [address] [place] [address] Dr. Sera Quach AST [Catalytic activity/Vol] 37 U/L Normal 15-37 [facility] Comment on above: Performed By: #### C MP, LIPID #### [facility] [address] [place] [address] Dr. Sera Quach Bilirubin [Mass/Vol] 0.6 mg/dL Normal 0.2-1.0 [facility] Comment on above: Performed By: #### C MP, LIPID #### [facility] [address] [place] [address] Dr. Sera Quach Calcium [Mass/Vol] 9.0 mg/dL Normal 8.5-10.1 [facility] Comment on above: Performed By: #### C MP, LIPID #### [facility] [address] [place] [address] Dr. Sera Quach Chloride [Moles/Vol] 101 mmol/L Normal 98-107 [facility] Comment on above: Performed By: #### C MP, LIPID #### [facility] [address] [place] [address] Dr. Sera Quach CO2 [Moles/Vol] 27.6 mmol/L Normal 21.0-32.0 [facility] Comment on above: Performed By: #### C MP, LIPID #### [facility] [address] [place] [address] Dr. Sera Quach Creatinine [Mass/Vol] 0.75 mg/dL Normal 0.70-1.30 [facility] Comment on above: Performed By: #### C MP, LIPID #### [facility] [address] [place] [address] Dr. Sera Quach EGFR-AF HAITIAN >60 Normal >=60 [facility] Comment on above: Performed By: #### C MP, LIPID #### [facility] [address] [place] [address] Dr. Sera Quach EGFR-NON AF HAITIAN >60 Normal >=60 [facility] Comment on above: Performed By: #### C MP, LIPID #### [facility] [address] [place] [address] Dr. Sera Quach Globulin (S) [Mass/Vol] 3.6 g/dL Normal [facility] Comment on above: Performed By: #### C MP, LIPID #### [facility] [address] [place] [address] Dr. Sera Quach Glucose [Mass/Vol] 184 mg/dL Critically high 74-106 [facility] Comment on above: Performed By: #### C MP, LIPID #### [facility] [address] [place] [address] Dr. Sera Quach Potassium [Moles/Vol] 4.3 mmol/L Normal 3.5-5.1 [facility] Comment on above: Performed By: #### C MP, LIPID #### [facility] [address] [place] [address] Dr. Sera Quach Protein [Mass/Vol] 7.5 g/dL Normal 6.4-8.2 [facility] Comment on above: Performed By: #### C MP, LIPID #### [facility] [address] [place] [address] [address] Sera Quach Sodium [Moles/Vol] 137 mmol/L Normal 136-145 [facility] Comment on above: Performed By: #### C MP, LIPID #### [facility] [address] [place] [address] Dr. Sera Quach Urea nitrogen [Mass/Vol] 12.0 mg/dL Normal 7.0-18.0 [facility] Comment on above: Performed By: #### C MP, LIPID #### [facility] [address] [place] [address] Dr. Sera Quach Urea nitrogen/Creatinine [Mass ratio] 16.0 mg/mg Normal [facility] Comment on above: Performed By: #### C MP, LIPID #### [facility] [address] [place] [address] Dr. Sera Quach UA RANDOM W/MICROSCOPICon BACTERIA NONE SEEN Normal NONE SEEN [facility] Comment on above: Performed By: #### U AMIC #### [facility] [address] [place] [address] Dr. Sera Quach Bilirubin Ql (U) Negative Normal NEGATIVE [facility] Comment on above: Performed By: #### U AMIC #### [facility] [address] [place] [address] Dr. Sera Quach CAST NONE SEEN Normal NONE SEEN [facility] Comment on above: Performed By: #### U AMIC #### [facility] [address] [place] [address] Dr. Sera Quach Clarity (U) CLOUDY Abnormal CLEAR [facility] Comment on above: Performed By: #### U AMIC #### [facility] [address] [place] [address] Dr. Sera Quach Color (U) YELLOW Normal YELLOW [facility] Comment on above: Performed By: #### U AMIC #### [facility] [address] [place] [address] Dr. Sera Quach Crystals LM Nom (Urine sed) SEEN Abnormal NONE SEEN [facility] Comment on above: Performed By: #### U AMIC #### [facility] [address] [place] [address] Dr. Sera Quach Epithelial cells LM Ql (Urine sed) RARE Normal NONE SEEN /RARE [facility] Comment on above: Performed By: #### U AMIC #### [facility] [address] [place] [address] [address] Sera Quach Glucose Ql (U) Negative Normal NEGATIVE [facility] Comment on above: Performed By: #### U AMIC #### [facility] [address] [place] [address] [address] Sera Quach Hemoglobin Ql (U) Negative Normal NEGATIVE [facility] Comment on above: Performed By: #### U AMIC #### [facility] [address] [place] [address] Dr. Sera Quach Ketones Ql (U) Negative Normal NEGATIVE [facility] Comment on above: Performed By: #### U AMIC #### [facility] [address] [place] [address] [address] Sera Quach LEUKOCYTES Negative Normal NEGATIVE [facility] Comment on above: Performed By: #### U AMIC #### [facility] [address] [place] [address] Dr. Sera Quach MUCOUS NONE SEEN Normal NONE SEEN [facility] Comment on above: Performed By: #### U AMIC #### [facility] [address] [place] [address] [address] Sera Quach Nitrite Ql (U) Negative Normal NEGATIVE [facility] Comment on above: Performed By: #### U AMIC #### [facility] [address] [place] [address] [address] Sera Quach pH (U) 5.5 [pH] Normal 5-9 [facility] Comment on above: Performed By: #### U AMIC #### [facility] [address] [place] [address] Dr. Sera Quach RBC NONE SEEN Abnormal 0-2 [facility] Comment on above: Performed By: #### U AMIC #### [facility] [address] [place] [address] Dr. Sera Quach SPEC GRAVITY 1.025 Normal 1.005-<=1. 025 [facility] Comment on above: Performed By: #### U AMIC #### [facility] [address] [place] [address] Dr. Sera Quach UA PROTEIN Negative Normal NEGATIVE/ TRACE [facility] Comment on above: Performed By: #### U AMIC #### [facility] [address] [place] [address] Dr. Sera Quach Urobilinogen Qn (U) 1.0 {Jessika'U}/dL Normal 0.2 - 1. 0 [facility] Comment on above: Performed By: #### U AMIC #### [facility] [address] [place] [address] Dr. Sera Quach WBC 0-2 Abnormal NONE SEEN [facility] Comment on above: Performed By: #### U AMIC #### [facility] [address] [place] [address] Dr. Sera Quach GLYCOHEMOGLOBIN A1Con 2020 ADA RECOMMENDATION ADA THERAPEUTIC TARG ET 6.0 - 7.0 ACTION SUGGESTED > 7.0 Normal [facility] Comment on above: Performed By: #### A 1C #### [facility] [address] [place] [address] Dania Carreno Glucose [Mass/Vol] 174 mg/dL Normal [facility] Comment on above: Performed By: #### A 1C #### [facility] [address] [place] [address] Dania Carreno HbA1c (Bld) [Mass fraction] 7.7 % Critically high <=6.0 [facility] Comment on above: Performed By: #### A 1C #### [facility] [address] [place] [address] Dania Carreno PROF CHEM 8 (BAS METB)on Anion gap [Moles/Vol] 9.0 mmol/L Normal [facility] Comment on above: Performed By: #### B MP #### [facility] [address] [id number] Dania Ev Calcium [Mass/Vol] 8.8 mg/dL Normal 8.4-10.2 [facility] Comment on above: Performed By: #### B MP #### [facility] [address] [id number] Dania Ev Chloride [Moles/Vol] 102 mmol/L Normal 98-107 [facility] Comment on above: Performed By: #### B MP #### [facility] [address] [address] Dania Ev CO2 [Moles/Vol] 29.1 mmol/L Normal 22.0-30.0 [facility] Comment on above: Performed By: #### B MP #### [facility] [address] [place] [address] Dania Ev Creatinine [Mass/Vol] 0.73 mg/dL Normal 0.66-1.25 [facility] Comment on above: Performed By: #### B MP #### [facility] [address] [place], [place] [id number] Dania Ev EGFR-AF HAITIAN >60 Normal >=60 [facility] Comment on above: Performed By: #### B MP #### [facility] [address] [place] [address] Dania Ev EGFR-NON AF HAITIAN >60 Normal >=60 [facility] Comment on above: Performed By: #### B MP #### [facility] [address] [place] [address] Dania Ev Glucose [Mass/Vol] 141 mg/dL Critically high 74-[address] [facility] Comment on above: Performed By: #### B MP #### [facility] [address] [place] [address] Dania Ev Potassium [Moles/Vol] 4.1 mmol/L Normal 3.4-5.0 [facility] Comment on above: Performed By: #### B MP #### [facility] [address] [place] [address] Dania Ev Sodium [Moles/Vol] 136 mmol/L Critically low 137-145 Th e [facility] Comment on above: Performed By: #### B MP #### [facility] [address] [place], [place] [address] Dania Carreno Urea nitrogen [Mass/Vol] 9.0 mg/dL Normal 9.0-20.0 [facility] Comment on above: Performed By: #### B MP #### [facility] [address] [place], [place] [address] Dania Carreno Urea nitrogen/Creatinine [Mass ratio] 12.3 mg/mg Normal [facility] Comment on above: Performed By: #### B MP #### [facility] [address] [place], [place] [address] Dania Carreno Vital Signs Date Time Vital Sign Value Performing Clinician Facility 03-30-2024 12:00-0400 Body temperature 98 [degF] Cecy Hernandez Work Phone: [facility] 03-30-2024 12:00-0400 Diastolic blood pressure 88 mm[Hg] Cecy David Work Phone: [facility] 03-30-2024 12:00-0400 Heart rate 80 /min Cecy David Work Phone: [facility] 03-30-2024 12:00-0400 Respiratory rate 19 /min Cecy David Work Phone: [facility] 03-30-2024 12:00-0400 SaO2% (BldA) [Mass fraction] 95 % Cecy Yobanyhholz Work Phone: [facility] 03-30-2024 12:00-0400 Systolic blood pressure 140 mm[Hg] Cecy Yobanyhholyancy Work Phone: [facility] 03-30-2024 02:25-0400 Body height 190.5 cm Cecy David Work Phone: [facility] 03-30-2024 02:25-0400 Body weight 151.5 kg Cecy Aichholz Work Phone: [facility] 03-30-2024 02:03-0400 Body temperature 98.3 [degF] Cecy Aichholz Work Phone: [facility] 03-30-2024 02:03-0400 Diastolic blood pressure 73 mm[Hg] Cecy Aichholz Work Phone: [facility] 03-30-2024 02:03-0400 Heart rate 62 /min Cecy Aichholz Work Phone: [facility] 03-30-2024 02:03-0400 Respiratory rate 18 /min Cecy Aichholz Work Phone: [facility] 03-30-2024 02:03-0400 SaO2% (BldA) [Mass fraction] 96 % Cecy Aichholz Work Phone: [facility] 03-30-2024 02:03-0400 Systolic blood pressure 133 mm[Hg] Cecy Aichholz Work Phone: [facility] 03-29-2024 22:19-0400 Body height 190.5 cm Cecy Aichholz Work Phone: [facility] 03-29-2024 22:19-0400 Body weight 151.9 kg Cecy Aichholz Work Phone: [facility] 03-25-2024 16:05-0400 Diastolic blood pressure 83 mm[Hg] Cecy Aichholz Work Phone: [facility] 03-25-2024 16:05-0400 Heart rate 86 /min Cecy Aichholz Work Phone: [facility] 03-25-2024 16:05-0400 Respiratory rate 18 /min Cecy Aichholz Work Phone: [facility] 03-25-2024 16:05-0400 SaO2% (BldA) [Mass fraction] 98 % Cecy Hernandez Work Phone: [facility] 03-25-2024 16:05-0400 Systolic blood pressure 120 mm[Hg] Cecy Hernandez Work Phone: [facility] 03-25-2024 09:37-0400 Body temperature 98 [degF] Cecy Hernandez Work Phone: [facility] 03-25-2024 06:32-0400 Body weight 149.5 kg Cecy Hernandez Work Phone: [facility] 03-23-2024 03:31-0400 Body height 190.5 cm Cecy Hernandez Work Phone: [facility] 10-08-2021 13:30-0500 Body height 190.5 cm Yue Pedroza Other [facility] Other 10-08-2021 13:30-0500 Body mass index (BMI) [Ratio] 45.12 kg/m2 Yue Pedroza Other [facility] Other 10-08-2021 13:30-0500 Body temperature 96.6 [degF] Yue Kasia Other [facility] Other 10-08-2021 13:30-0500 Body weight 163.75 kg Yue Pedroza Other [facility] Other 10-08-2021 13:30-0500 SaO2% (BldA) [Mass fraction] 98 % Yue Pedroza Other [employer] Other Encounters Encounter Date Encounter Type Care Provider Facility Start: 04-17-2024 End: 04-17-2024 [facility] Start: 04-04-2024 End: 04-04-2024 ambulatory CECYDileep ABEBEHOLZ Not Available Start: 04-03-2024 End: 04-03-2024 ambulatory LISET JIMENEZ Not Available Start: 03-30-2024 End: 03-30-[address] Facility:[facility] Start: 03-30-2024 End: 03-30-2024 Evaluation and management of inpatient Cecy Aichholz Work Phone: [facility] Work Phone: Start: 03-30-2024 End: 03-30-2024 observation encounter Cecy J Aichholz Work Phone: [facility] Work Phone: Start: 03-23-2024 End: 03-25-2024 Evaluation and management of inpatient Cecy Aichholz Work Phone: [facility] Work Phone: Start: 03-04-2024 End: 03-04-2024 ambulatory JULIET SILVEIRAETT Not Available Start: 02-20-2024 End: 02-20-2024 ambulatory CECY AICHHOLZ Not Available Start: 02-13-2024 End: 02-13-2024 ambulatory TANA RONALD Not Available Start: 02-07-2024 End: 02-07-2024 ambulatory VICKY SCRUGGS Not Available Start: 11-16-2023 End: 11-16-2023 ambulatory CECY AICHHOLZ Not Available Start: 11-12-2023 Refill Lula Cota MD Work Phone: [facility] Start: 10-11-2023 Refill Cecy Aichholz [employer] [facility] Phone[facility] Comment on above: Type 2 diabetes genet itus without complication, without long- term current use of insulin (CMS/HCC) (Primary Dx); Type 2 diabetes mellitus without complications (CMS/HCC) Start: 08-16-2023 End: 08-16-2023 ambulatory CECY AICHHOLZ Not Available Start: 04-23-2022 End: 04-23-2022 ambulatory DENTURE MODEL MAKER CECY AICPaulieHOLZ Facility:[facility] Start: 01-11-2022 End: 01-12-2022 ambulatory DENTURE MODEL MAKER CECY AICPaulieHOLZ Facility:[facility] Start: 10-08-2021 End: 10-08-2021 ambulatory Yue Pedroza Other [facility] [employer] Other Start: 10-08-2021 Office outpatient vi sit 15 minutes Yue Pedroza [facility] Start: 06-07-2021 End: 06-07-2021 ambulatory DENTURE MODEL MAKER CECY ABEBEHOLYancy Facility:[facility] Start: 05-05-2021 End: 05-06-2021 ambulatory DENTURE MODEL MAKER CECY MISHOLYancy Facility:[facility] Start: 06-08-2018 End: 06-09-2018 Patient encounter procedure DEFAULT PHYSICIAN Facility:[facility] Start: 11-07-2013 End: 11-07-2013 Telephone encounter Haylee Garcia Work Phone: Rheumatology Comment on above: Appointment Cancelle d Procedures Date Procedure Procedure Detail Performing Clinician Start: 03-29-2024 CT of head without contrast Cecy Aichholz Work Phone: Start: 03-25-2024 CSF (PCR) Cecy Aichh olz Work Phone: Start: 03-25-2024 Investigation of transfusion reaction Cecy Aichholz Work Phone: Start: 03-25-2024 MRI of cervical spin e with contrast Cecy Aichholz Work Phone: Start: 03-23-2024 MRI of head Cecy Aichh olz Work Phone: Start: 03-23-2024 Plain chest X-ray Cecy Aichholz Work Phone: Plan of Treatment Date Care Activity Detail Author Start: 03-30-2024 End: 03-30-2024 [facility] Start: 03-30-2024 Physical therapy procedure [facility] Start: 03-30-2024 Referral to neurologist [facility] Start: 03-30-2024 Referral to occupational therapist [facility] Start: 03-30-2024 [facility] Start: 03-30-2024 Hospital admission [facility] Start: 03-29-2024 CT of head without contrast CT head/brain wo con [facility] Start: 03-29-2024 CT Unspecified body region WO contrast [facility] Start: 03-25-2024 [facility] Start: 03-25-2024 Cerebrospinal fluid culture [facility] Start: 03-24-2024 [facility] Start: 03-23-2024 [facility] Start: 03-23-2024 Hospital admission [facility] Start: 03-23-2024 Referral to neurologist [facility] Start: 01-14-2024 Urine screening for protein Diabetes: Urine Protein Screening [facility] Start: 01-03-2024 End: 01-03-2024 Patient encounter procedure 01/03/2024 3:00 PM EDT Office Visit [facility] [address] [address] Lula Cota MD [address] [address] [facility] Start: 12-27-2023 Screening for malignant neoplasm of colon [facility] Start: 11-16-2023 End: 11-16-2023 Patient encounter procedure 11/16/2023 1:20 PM EDT Office Visit [facility] [address] [place] [address] Cecy Hernandez, DARIO [address] [place] [id number] [facility] Start: 11-03-2023 Hemoglobin A1c measurement Diabetes: Hemoglobin A1C [facility] Start: 04-28-2023 Influenza vaccination Influenza Vaccine [facility] Start: 04-28-2020 Influenza vaccination INFLUENZA (#1) [facility] Start: 2012 LIPID SCREEN LIPID SCREEN [facility] Start: 1996 DTaP,Tdap and Td Vaccines (1 - Tdap) DTaP,Tdap and Td Vaccines (1 - Tdap) [facility] Start: 1996 Urine microalbumin profile DTAP,TDAP,TD (1 - Tdap) [facility] Start: 1995 Adult BMI Screening Adult BMI Screening [facility] Start: 1995 Diabetic foot examination Diabetic Foot Exam [facility] Start: 1995 HIV SCREENING HIV SCREENING [facility] Start: 1989 Depression Screening Depression Screening [facility] Start: 1989 Tobacco Screening Tobacco Screening [facility] Start: 1987 Glaucoma screening Diabetes: Retinopathy Screening [facility] Start: 1977 Glaucoma screening Diabetic Ophthalmology Exam [facility] Start: 1977 Screening for malignant neoplasm of colon [facility] Start: 1977 Urine screening for protein Urine Microalbumin [facility] Albumin [Mass/volume ] in Cerebral spinal fluid [facility] Albumin [Mass/volume ] in Serum or Plasma [facility] Anion gap measurement [facility] Bacteria identified in Unspecified specimen by Aerobe culture [facility] Bacteria identified in Unspecified specimen by Anaerobe culture [facility] Basophils [#/volume] in Blood by Automated count [facility] Basophils/100 leukoc ytes in Blood by Automated count [facility] Borrelia burgdorferi IgG+IgM Ab [Presence] in Serum by Immunoassay [facility] Cerebrospinal fluid IgG ratio and IgG index [facility] Eosinophils/100 leukocytes in Blood by Automated count [facility] Erythrocyte distribu tion width [Ratio] by Automated count [facility] Erythrocytes [#/volu me] in Blood [facility] Hematocrit [Volume Fraction] of Blood [facility] Hemoglobin [Mass/vol ume] in Blood [facility] IgG [Mass/volume] in Cerebral spinal fluid [facility] IgG [Mass/volume] in Serum or Plasma [facility] IgG clearance/Albumi n clearance [Ratio] in Serum and CSF [facility] IgG synthesis rate [Mass/time] in Serum and CSF by calculation [facility] Leukocytes [#/volume ] corrected for nucleated erythrocytes in Blood by Automated coun [facility] Leukocytes [#/volume ] in Blood [facility] Lymphocytes [#/volum e] in Blood by Automated count [facility] Lymphocytes/100 leukocytes in Blood by Automated count [facility] MCH [Entitic mass] b y Automated count [facility] MCHC [Mass/volume] b y Automated count [facility] MCV [Entitic volume] by Automated count [facility] Monocytes [#/volume] in Blood by Automated count [facility] Monocytes/100 leukoc ytes in Blood by Automated count [facility] Myoglobin [Mass/volu me] in Serum or Plasma [facility] Neutrophils [#/volum e] in Blood by Automated count [facility] Neutrophils/100 leukocytes in Blood by Automated count [facility] Nucleated erythrocyt es [Presence] in Blood by Automated count [facility] Patient Education Know your Meds [facility] Work Phone: Patient referral [facility] Work Phone: Platelet mean volume [Entitic volume] in Blood by Automated count [facility] Platelets [#/volume] in Blood [facility] Protein fractions.oligoclonal bands.intrathecal [Presence] in Serum and CSF [facility] Immunizations Immunization Date Immunization Notes Care Provider Sarah [facility] 06-06-2023 influenza virus vaccine, unspecified formulation Cecy Hernandez [employer] Work Phone: [facility] 04-04-2014 tetanus toxoid, redu [place] diphtheria toxoid, and acellular pertussis vaccine, adsorbed Yue Kasia Other [facility] 06-12-2013 influenza virus vaccine, unspecified formulation Haylee Garcia [facility] Payers Date Payer Category Payer Self-pay 2022 Medicaid [id number] 2022 Medicaid [id number] 2013 Medicaid [place] [employer] [place] [employer] MEDICAID [id number] 2013-Present Medicaid [id number] 2013 Self-pay SELF PAY HSP/MED ICAL SELF PAY [id number] 2013-2015 SELF PAY Indemnity [id number] 1977 Unknown [id number] 2.16.840.1.679109.3.579.2.647 1977 Unknown [id number] 2.16.840.1.499749.3.579.2.593 1977 Unknown [id number] 2.16.840.1.912570.3.579.2.593 1977 Unknown [id number] 2.16.840.1.159136.3.579.2.593 1977 Unknown [id number] 2.16.840.1.488687.3.579.2.593 1977 Unknown [id number] 2.16.840.1.816283.3.579.2.1259 1977 Unknown [id number] 2.16.840.1.807459.3.579.2.1259 1977 Unknown [id number] 2.16.840.1.188483.3.579.2.1259 1977 Unknown [id number] 2.16.840.1.507618.3.579.2.1259 1977 Unknown [id number] 2.16.840.1.249008.3.579.2.1259 1977 Unknown [id number] 2.16.840.1.591566.3.579.2.1259 1977 Unknown [id number] 2.16.840.1.950478.3.579.2.1259 1977 Unknown [id number] 2.16.840.1.164816.3.579.2.1259 1977 Unknown [id number] 2.16.840.1.338825.3.579.2.1286 1977 Unknown [id number] 2.16.840.1.453042.3.579.2.1286 1977 Unknown [id number] 2.16840.1.569165.3.579.2.1286 1959 Unknown [id number] 2.16.840.1.875481.19 1959 Unknown [id number] Unknown Unknown [id number] 2..840.1.574423.3.579.2.531 Unknown [id number] 2.16840.1.534778.3.579.2.531 Social History Date Type Detail Facility Start: 05-20-2013 End: 03-30-2024 Tobacco smoking status UTIS Former smoker [facility] Start: 05-20-2013 Alcohol intake Not Asked [facility] Start: 1975 Sex Assigned At Not on file [facility] Start: 02-06-2019 End: 08-16-2023 Sex Assigned At [facility] [employer] Other History of tobacco use Current smoker [facility] History of tobacco use Cigarette Smoker [facility] Start: 08-16-2023 Alcohol intake Ex-drinker (finding) [facility] Start: 02-06-2019 End: 08-16-2023 History of Social function [facility] Start: 08-16-2023 Tobacco Comment Last smoked: 5-10 ye ars [facility] Start: 08-16-2023 Alcohol Comment caffeine 1-2 c ups per day [facility] Tobacco smoking status [facility] Tobacco smoking consumption unknown [facility] Unknown [facility] Start: 1975 Sex Assigned At Male [facility] Medical Equipment Procedure Code Equipment Code Equipment Origin al Text Equipment Identifier Dates 1 each by Other route Daily as needed [id number] Start: 10-13-2022 1 each by Other route if needed [id number] Start: 10-13-2022 Goals Date Patient Goal Desired Activity /State Functional Status Date Assessment Result Facility 03-30-2024 Functional status Patient at Baseline [facility] Work Phone: 03-25-2024 Functional status Patient at Baseline [facility] Work Phone: Mental Status Date Assessment Result Facility 03-30-2024 Cognitive function Cognitive Sta tus Patient at Baseline [facility] Work Phone: 03-25-2024 Cognitive function Cognitive Sta tus Patient at Baseline [facility] Work Phone: Clinical Notes 10-08-2021 to 03-30-2024 Note Date & Type Note Facility 03-30-2024 Discharge summary Note Date/Time March 30, 2024 12:47pm [facility] [address] [place] [address] Discharge Summary Signed Patient: Bhumika Umana JR MR#: [id number] : 1975 Acct:[id number] Age/Sex: 48 / M Adm Date: 4 Loc: Room: [address] [place] [address]: Bola Garcia DO Copies to: MD Bola Mast DO Lisa J Aichholz, [employer]C~ Providers Date of Discharge: 03/30/24 Discharging Provider: [...] able to funciton normally. He was taking Nersi and it was helping. He has been [...] ago and has been feeling fine. Current hydroelectric production technician is working him up for possible Sjogren's [...] neurology clinic. He needs to see his hydroelectric production technician in [place]. The following labs are still pending from [...] the neurology office. Follow up with your Welding Machine Setter in [place]. 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 and mild weakness [...] % (Auto) 67.6, Lymph % (Auto) 22.0, Jewell % (Auto) 9.0, Eos % (Auto) 1.0, Baso % (Auto) 0.4, Nucleat RBC Rel Count 0.0, Neut # (Auto) 13.5 H, Lymph #(Auto) 4.4, Jewell # (Auto) 1.8 H, Eos # (Auto) 0.2, Baso # (Auto) 0.1, PHA Creatinine Clear 238.21, Sodium 136, Potassium 4.4, Chloride 101, Carbon Dvjkyev34.2, Anion Gap 12.2, BUN 13, Creatinine 0.61 [...] % (Auto) 77.7, Lymph % (Auto) 14.7, Jewell % (Auto) 6.5, Eos % (Auto) 0.6, Baso % (Auto) 0.5, Nucleat RBC Rel Count 0.1, Neut # (Auto) 13.3 H, Lymph #(Auto) 2.5, Jewell # (Auto) 1.1 H, Eos # (Auto) [...] 1240 Signed By: <Electronically signed by Bola Garcia DO> 03/30/24 1247 [facility] Work Phone: 1(490) 540-129608-03-2024 Consult note Author [address] [facility] March 30, 2024 11:04am Note Date/Time March 30, 2024 10: 08am [facility] [address] [place] [address] Neurology Consult Note Signed Patient: Bhumika Umana JR MR#: [id number] : 1975 Acct:[id number] Age/Sex: 48 / M Adm Date: 4 Loc: 3T Room: [address] [place] [address] Type: ADM INOo Attending Dr: Bola Garcia DO Copies to: DO Cecy [place] NP-C Altagracia Street DO~ HPI Consult Date: 03/30/[address] Bailiff: Altagracia Street DO Reason for consult: weakness Consult Narrative HPI: 48-year-old male being seen in Neurology consultation at the request of the hospitalist. The patient was recently admitted worked up and released for similar issues. The patient has a PMH of T2DM, HTN, depression adn RA. [facility] new complaints of BLE where his previous [...] brother came over to go to the movies. States he needed help just opening up [...] that his hands feel like they have wdjt-khb-kbsepdefd them. He was discharged from the hospital [...] ago and has been feeling fine. Current hydroelectric production technician is working him up for possible Sjogren's [...] Denies dizziness, Reports headache(s) and Reports weakness [facility] Medical History Depressed Acute rheumatoid arthritis Diabetes HTN (hypertension) Surgical History History of tonsillectomy and adenoidectomy Family History Father Myocardial infarction Heart disease Mother Family history of colon cancer Cancer [facility] Problem: Diagnosed with Cancer Hypertension Social History [...] Confirmed 03/30/24] dapagliflozin propanediol 5 mg tablet (Richardxiga) 10 mg PO DAILY 03/23/24 [History Confirmed [...] Mert Ferreira M.D.03/30/2024 9:26 AM Dictation Location: [place] [address] Assessment/Plan (1) Bilateral arm weakness: (2) Bilateral [...] a fall after he went to the movies and sat for an extended period oftime. [...] <Electronically signed by DO Altagracia Street> 03/30/24 2413 [facility] Work Phone: 1(435) 919-669908-03-2024 History and physical note Author Edgar Gomez [facility] March 30, 2024 6:59am Note Date/Time March 30, 2024 1:3 8am [facility] [address] [place] [address] Hospitalist H&P Signed Patient: Bhumika Umana JR MR#: [id number] : 1975 Acct:[id number] Age/Sex: 48 / M Adm Date: 4 Loc: Room: [address] [place] [address] Type: ADM INOo Attending Dr: Edgar Gomez MD Copies to: MD Cecy Jeter, KAYLA Malave, CORN HUSKER~ HPI DATE OF EXAMINATION: 03/30/24 CHIEF COMPLAINT: ble weakness and fall HISTORY OF PRESENT ILLNESS: Mr. Umana is a 48-year-old male with a PMH of T2DM, HTN, depression, RA that presented to the emergency room [facility] for complaints of BLE weakness and a [...] brother came over to go to the movies. States he needed help just opening up a taco, he could barely hold up the taco. He statesthat sometimes after he rests he has better use of his hands and his arms but then he noticed after he uses them they get tired after a while they get weaker and more difficult to use. He states that his hands feel like they have yuqm-toy-hdsaurz in them. He is moving both of [...] ago and has been feeling fine. Current hydroelectric production technician is working him up for possible Sjogren's [...] unless noted in the HPI or below. [facility] Medical History (Updated 03/30/24 @ 00:44 by Emily iWnn DO) Depressed Acute rheumatoid arthritis Diabetes HTN [...] % (Auto) 14.7 % (.) 03/29/24 22:50 Jewell % (Auto) 6.5 % (.) 03/29/24 22:50 Eos % (Auto) 0.6 % (.) 03/29/24 22:50 Baso % (Auto) 0.5 % (.) 03/29/24 22:50 Nucleat RBC Rel Count 0.1 /100 WBC (0-0.5) 03/29/24 22:50 Neut # (Auto) 13.3 x10E3/uL (1.8-7.7) H 03/29/24 22:50 Lymph # (Auto) 2.5 x10E3/uL (1.00-4.8) 03/29/24 22:50 Jewell # (Auto) 1.1 x10E3/uL (0.0-0.8) H 03/29/24 [...] signed by Edgar Gomez MD> 03/30/24 0659 [facility] Work Phone: 1(374) 319-946907-29-2024 Progress note Author Danial Horan [facility] March 25, 2024 2:09pm Note Date/Time March 25, 2024 2:03 pm [facility] [address] [place] [address] Neurology Progress Note Signed Patient: Bhumika Umana JR MR#: [id number] : 1975 Acct:[id number] Age/Sex: 48 / M Adm Date: 4 Loc: 3T Room: [address] [place] [address] Type: ADM IN Attending Dr: Simon Wolfe [...] wrist flexion, +2/5 bilateralfinger extension, +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 No tremors. [...] standpoint Documented By: Danial Horan DO 03/25/24 8082 Signed By: <Electronically signed by Danial Horan DO> 03/25/24 5538 [facility] Work Phone: 1(998) 148-614007-28-2024 Progress note Author Danial Horan [facility] March 24, 2024 1:33pm Note Date/Time March 24, 2024 1:33 pm [facility] [address] [place] [address] Neurology Progress Note Signed Patient: Bhumika Umana JR MR#: [id number] : 1975 Acct:[id number] Age/Sex: 48 / M Adm Date: 4 Loc: Room: [address] [place] [place] [address] Type: ADM IN Attending Dr: Elder Iyer [...] wrist flexion, +2/5 bilateralfinger extension, +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 No tremors. [...] IR. 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 where 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, will need better resolution study 3 parisa [...] <Electronically signed by Elder Iyer MD> 03/24/24 1102 [facility] Work Phone: 1(813) 312-212607-27-2024 Progress note Author Elder Iyer [facility] March 23, 2024 2:33pm Note Date/Time March 23, 2024 2:33 pm [facility] [address] [place] [address] Hospitalist Progress Note Signed Patient: Bhumika Umana JR MR#: [id number] : 1975 Acct:[id number] Age/Sex: 48 / M Adm Date: 4 Loc: 3T Room: [address] [place] [address] Type: ADM IN Attending Dr: Elder Iyer [...] reviewed today: Cervical spine MRI done in [place]: The MRI of the cervical spine is [...] with and without contrast done here at [facility]: Focal areas of abnormal signal are seen [...] in his hands and can make a locomotive operator, sensation is normal over the bilateral upper [...] Propionate 2 spray 03/23/24 22:00 Fluticasone Propionate Hooker 120 Hooker/16 Gm Bottle NARES-BOTH 03/23/25 21:59 QHS FARZANEH [...] cervical spine with and without contrast here [facility], will need better resolution study 3 parisa [...] 50 Documented By: Elder Iyer MD 03/23/24 1415 Signed By: <Electronically signed by Elder Iyer MD> 03/23/24 8498 [facility] Work Phone: 1([phone]) 563-781207-27-2024 Consult note Author Danial Horan [facility] March 23, 2024 1:05pm Note Date/Time March 23, 2024 11:3 9am [facility] [address] [place] [address] Neurology Consult Note Signed Patient: Bhumika Umana JR MR#: [id number] : 1975 Acct:[id number] Age/Sex: 48 / M Adm Date: 4 Loc: Room: [address] [place] [address] Type: ADM IN Attending Dr: Elder Iyer MD Copies to: DO Cecy Aguirre, [employer] Elder Iyer MD~ HPI Consult Date: 03/23/[address] Bailiff: Danial Horan DO [facility] Medical History (Updated 03/23/24 @ 02:25 by [...] Gonzales Jr., D.O.03/23/2024 9:33 AM Dictation Location: [place] [address] Brain MRI 03/23/24 02:09 Impression: No acute process. No abnormal enhancement. Focal areas of abnormal signal are seen on the T2 and T2 FLAIR imaging within the white matter. Given the patient's age, this finding is nonspecific and a demyelinating process cannot BE excluded. Impression dictated by: Rene Gonzales Jr., D.O.03/23/2024 10:46 AM Dictation Location: [facility]--15 Therapy Recommendations Therapy Recommendations: PT Recommendations DC [...] his close, etc. He went to the [place] emergency department to be evaluated and had to sign some for there and had used two handsto manipulate the pen. The [place] emergency department called me overnight and told [...] wrist flexion, +2/5 bilateralfinger extension, +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 No tremors. [...] clinic Documented By: Danial Horan DO 03/23/24 6298 Signed By: <Electronically signed by Danial Horan DO> 03/23/24 1307 [facility] Work Phone: 1(102) 680-827107-27-2024 History and physical note Author Bola Garcia [facility] March 23, 2024 2:28am Note Date/Time March 23, 2024 2:28 am [facility] [address] [place] [address] Hospitalist H&P Signed Patient: Bhumika Umana JR MR#: [id number] : 1975 Acct:[id number] Age/Sex: 48 / M Adm Date: 4 Loc: 3T Room: [address] [place] [address] Type: ADM IN Attending Dr: Bola Garcia DO Copies to: DO Cecy [place] NP-C~ HPI DATE OF EXAMINATION: 03/23/24 CHIEF COMPLAINT: Worsening weakness of both upper extremities. HISTORY OF PRESENT ILLNESS: This is a 48-year-old man who was sent to the emergency room at [facility] from the emergency room at [facility] as a ED to ED transfer at [...] on prednisone 2 days ago by the [place] [facility]. In [place] he has had a workup including a CT scan of his cervical spine and then an MRI of his cervical spine performed on March 19, 2024. Contact was made with the neurologist who felt thatthe patient should be brought over here to [facility] so he can get an MRI scan [...] like he recently got established with a hydroelectric production technician at the [facility] system in [place] who told himthat his situation was not [...] except as mentioned elsewhere in the documentation. [facility] Medical History (Updated 03/23/24 @ 02:25 by Bola Garcia DO) Depressed Acute rheumatoid arthritis Diabetes HTN (hypertension) Surgical History History of tonsillectomy and adenoidectomy Family History Father Myocardial infarction Heart disease Mother Family history of colon cancer Cancer [facility] Problem: Diagnosed with Cancer Hypertension Social History [...] 03/23/24] dapagliflozin propanediol 5 mg tablet (Farxiga) 5 mg PO DAILY 03/23/24 [History Confirmed [...] % (Auto) 8.2 % (.) 03/23/24 00:52 Jewell % (Auto) 1.0 % (.) 03/23/24 00:52 Eos % (Auto) 0.0 % (.) 03/23/24 00:52 Baso % (Auto) 0.5 % (.) 03/23/24 00:52 Nucleat RBC Rel Count 0.1 /100 WBC (0-0.5) 03/23/24 00:52 Neut # (Auto) 15.5 x10E3/uL (1.8-7.7) H 03/23/24 00:52 Lymph # (Auto) 1.4 x10E3/uL (1.00-4.8) 03/23/24 00:52 Jewell # (Auto) 0.2 x10E3/uL (0.0-0.8) 03/23/24 00:52 [...] He has been established recently with a hydroelectric production technician out of the [employer] [facility] system in [place]. Plan: MRI of the brain with and [...] stay (# of days): 2 Documented By: Bola Garcia DO 0215 Signed By: <Electronically signed by Bola Garcia DO> 03/23/24 0228 [facility] Work Phone: 1(840) 793-993102-11-2022 Evaluation note* Encounter Date Diagnosis Assessment Notes [...] Patient care instructions given in writting by [facility] Care At Home document. [facility] Other Discharge summary Author Simon Wolfe [facility] March 25, 2024 5:58pm Note Date/Time March 25, 2024 5:50 pm [facility] [address] [place] [address] Discharge Summary Signed Patient: Bhumika Umana JR MR#: [id number] : 1975 Acct:[id number] Age/Sex: 48 / M Adm Date: 4 Loc: Room: [address] [place] [address]: Simon Wolfe MD Copies to: MD Cecy Mcdowell, [employer]~ Providers Date of Discharge: 03/25/24 Discharging Provider: [...] Simon Wolfe Follow Up: [facility] [Outside] - 04/09/24 1:40 pm Cecy Hernandez [...] Deferred Neuro: AAO x3, no focal deficits. Doctor Of Medicine strength 4+/5 throughout. 5/5 otherwise Extremities: No [...] 08:43: CSF Supernatant Color Colorless, CSF RBC [id number] 03/25/24 08:43: CSF Color Lt pink, CSF [...] N/A Documented By: Simon Wolfe MD 4 [id number] Signed By: <Electronically signed by Simon Wolfe MD> 03/25/24 9237 [facility] Work Phone: Evaluation note* Diagnosis Type 2 diabetes mellitus without complication, without long-term current use of insulin (CMS/HCC)- Primary Type 2 diabetes mellitus without complications (CMS/HCC) documented [facility] encounter [facility] Diagnosis Onset Date Resolution Status Diabetes acute HTN (hypertension) acute Upper extremity weakness acu te [facility] Work Phone: Evaluation note* Diagnosis Onset Date Resolution Status Diabetes acute HTN (hypertension) acute Upper extremity weakness acu te Bilateral arm weakness acute Bilateral leg weakness acute Diabetes acute HTN (hypertension) acute Leukocytosis acute Upper extremity weakness acu te [facility] Work Phone: Evaluation note* Diagnosis Onset Date Resolution Status Diabetes acute HTN (hypertension) acute Upper extremity weakness acu te Bilateral arm weakness acute Bilateral leg weakness acute Diabetes acute Falls acute Fasciculation acute HTN (hypertension) acute Leukocytosis acute Upper extremity weakness acu te [facility] Work Phone: History general Narrative - Reported* Type Description Date Medical History rheumatoid arthritis Medical History type 2 diabeties Medical History Benign essential HTN Medical History Depression Surgical History tonsillectomy and adenoidectomy 1987 Hospitalization History tonsillitis childhoo d [facility] Other Hospital Discharge instructionsAmbulatory Orders* PT/OT/SP OutPatient Referral Time Frame: 1 Day, Location: Determined By Patient Additional Instructions Follow up in the neurology office. Follow up with your Welding Machine Setter in [place].[facility] Work Phone: InstructionsNot on filedocumented in this encounter [facility] [employer] Summary Purpose Family History No Family History [...] Upper extremity weakness Chief Complaint Sent from [place] E R leg numbness Reason for Visit [...] and content) DATE CREATED AUTHOR 11/14/2018 [facility] DATE CREATED AUTHOR AUTHOR'S ORGANIZ ATION 04/25/2022 [facility] pital DATE CREATED AUTHOR AUTHOR'S ORGANIZ ATION 04/06/[address] [facility] EPIC DATE CREATED AUTHOR AUTHOR'S ORGANIZ ATION 04/08/2024 [facility] DATE CREATED AUTHOR AUTHOR'S ORGANIZ ATION 04/22/2024 [facility] Source Comments (unrecognize d section and content) In the event this informatio n is protected by the Federal Confidentiality of Alcohol and Drug Abuse Patient Records regulations: The Federal rules restrict any use of the information to criminally investigate or prosecute any alcohol or drug abuse patient.[facility] Reason for Visit (unrecogniz ed section [...] Care Teams (unrecognized sec tion and content) Full Stack Developer Relationship Specialty Start Date End Date Lexa Hickman MD PCP - General Family Medicine 03/15/23 Cecy Hernandez NP [address] [place] [address] Referring Physician Nurse Practitioner 03/15/23 Team Status: [...] Active Start: 2023 End: March 30, 2024 Bola Garcia DO Attending Provider Active Start: March [...] BE BASED ON THE PRIMARY CLINICAL RECORDS. [facility] [employer] [facility]. provides no warranty or guarantee of the accuracy or completeness of information in this document.
--- NOTE | 2024-04-23 07:54 | W.PM.PROCNOT ---
Date of procedure: 04/23/24 Pre-op diagnosis: screening colonoscopy Post-op diagnosis: same as pre-op Procedure: Previous colonoscopy: never procedure: screening colonoscopy The patient was given IV conscious sedation.? The patient's SPO2 remained above 90% throughout the procedure. The colonoscope was inserted per rectum and advanced under direct vision to the cecum without difficulty.? The prep was good.? Findings: Terminal ileum os: normal Cecum/Ascending colon: normal Transverse colon: normal Descending/Sigmoid colon: normal Rectum/Anus: examined in normal and retroflexed positions and was normal Withdrawal Time was (minutes): 8 The colon was decompressed and the scope was removed.? The patient tolerated the procedure well. Recommendations/Plan: 1.? Lifestyle and dietary modifications as discussed 2.? F/U in 10 years 3.? Discussed with the family Anesthesia: MAC Surgeon: Merlin Astudillo Estimated blood loss (mL): 0 Pathology: none sent Condition: stable Disposition: PACU
[2024-04-23 08:08] LABS: Glucometer 100 mg/dL (74-106)
[2024-04-23] MEDS: LACTATED RINGER'S SOLUTION 1,000 ML 50 ML IV (08:14)
[2024-04-23 08:53] VITALS: BP 99/51; PULSE 78; O2SAT 95
[2024-04-23 09:08] VITALS: BP 131/78; PULSE 69; O2SAT 97
== END 2024-04-23 09:24 | disposition home or self-care (01) ==
PROVIDERS: PCP Nurse Practitioner; Visit Provider Surgery
PROC: (CPT 00812; principal; 2024-04-23 07:55)
DX: Z12.11 Encounter for screening for malignant neoplasm of colon (principal); Z87.891 Personal history of nicotine dependence; I10 Essential (primary) hypertension; E11.9 Type 2 diabetes mellitus without complications; M06.9 Rheumatoid arthritis, unspecified
CPT/HCPCS: 00812; 45378; 36415; 82948; J2704

== ENCOUNTER 2024-05-28 16:41 | Outpatient (OUT) | payer MEDICAID, SELFPAY ==
--- OUTSIDE RECORDS SUMMARY | 2024-05-28 16:46 | XMS_ITS | CCD ---
Author Organization [facility] Care Team Providers Care Service Administrator Name Role Phone PHYSICIAN, DEFAULT Admitting Unavailable PHYSICIAN, DEFAULT Attending Unavailable PEGGY GAYTAN Primary Care Unavailable Primo Downing Primary Care Provider [phone] Yue Pedroza Unavailable AICHHOLZ, MACHINE SAND MIXER CECY Primary Care Unavailable AICHHOLZ, MACHINE SAND MIXER CECY Admitting Unavailable AICHHOLZ, MACHINE SAND MIXER CECY Attending Unavailable AICHHOLZ, MACHINE SAND MIXER CECY Consulting Unavailable AICHHOLZ, MACHINE SAND MIXER CECY Primary Care Unavailable AICHHOLZ, MACHINE SAND MIXER CECY Admitting Unavailable AICHHOLZ, MACHINE SAND MIXER CECY Attending Unavailable AICHHOLZ, MACHINE SAND MIXER CECY Consulting Unavailable AICHHOLZ, MACHINE SAND MIXER CECY Admitting Unavailable AICHHOLZ, MACHINE SAND MIXER CECY Attending Unavailable AICHHOLZ, MACHINE SAND MIXER CECY Consulting Unavailable AICHHOLZ, MACHINE SAND MIXER CECY Primary Care Unavailable AICHHOLZ, MACHINE SAND MIXER CECY Primary Care Unavailable VISHAL, DR THANG Nichols Attending Unavailabl ken RODGERS, DR THANG Nichols Consulting Unavailabl ken RODGERS, DR THANG Nichols Admitting Unavailabl e JAKOB MCGHEE Consulting Unavailable Leax Hickman MD Primary Care Provider Aichholz LABOR UNION BUSINESS REPRESENTATIVE, Cecy Unavailable Unavailable Primary Care Provider Unavailabl e Aichfroylanz, Cecy J Primary Care Provider MD Gale Gonzales Emergency Provider [phone] DO Bola Garcia Admit Provider DO Danial Horan Other Provider MD Simon Wolfe Attending Provider [phone] DO Emily Winn Emergency Provider MD Edgar Gomez Admit Provider MD Edgar Gomez Attending Provider DO Bola Garcia Attending Provider DO Altagracia Street Other Provider Altagracia Street Consulting Unavailable Edgar Gomez Admitting Unavailable Cecy Hernandez Primary Care Unavailable Bola Garcia Attending UnavailDanial Leija Consulting Unavailable Aichsher Cecy J Primary Care Unavailable Simon Wolfe Attending Unavailab Bola Chan Admitting Unavailmilvia BHATIAAFLULA Falk Attending Unavailable COTA, LULA Referring Unavailable COTA, LULA Referring Unavailable AICHHOLZ, CECY Attending Unavailable VICKY SCRUGGS Attending Unavailable TANA CARDENAS Attending Unavailable YOBANYHHOLYancy, CECY Attending Unavailable JULIET HWANG Attending Unavailable LISET JIMENEZ Attending Unavailable AICHHOLZ, CECY Attending Unavailable LISET JIMENEZ Attending Unavailable AICHHOLZ, CECY Attending Unavailable YOBANYHSHER, CECY Attending Unavailable Allergies Allergy Classification Reported Allergen(s) Allergy Type Date of Onset Reaction(s) Facility (1 source) Adhesive Tape Allergy to substance 02-20-20 13 Rash [facility] (9 sources) Penicillins; Translations: [Penicillins] Drug Allergy 01-03-20 13 Unknown [facility] (1 source) Penicillins (Antibiotic) Drug allergy rash. 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 (2 sources) Adhesive agent; Translations: [ADHESIVE] Propensity to adverse reactions to drug 02-20-20 [facility] (4 sources) almond allergenic extract; Translations: [almond] Drug Allergy 03-23-20 [facility] (4 sources) cashew nut allergenic extract; Translations: [cashew nut] Drug Allergy 03-23-20 [facility] (1 source) Adhesive Tape Drug allergy (disorder) 03-29-20 [facility] Medications Current Medications Medication Drug Class(es) [...] t ablet Actos Active polyethylene glycol 3350 42232 mg powder for oral solution (1 source) [...] Active 4 MG PO Daily at bedtime Kacy 27th, 2024 12:00am Start: 02-13-2023 tiZANidine (ZA NAFLEX) [...] Onset: 04-17-2024 Chronic Other aftercare (1 source) shelter (current) use of oral hypoglycemic drugs; Translations: [SNF USE ORAL HYPOGLYCEMIC DX] Onset: 04-25-2022 Episodic Other aftercare (1 source) shelter (current) use of aspirin; Translations: [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 TECHNICIAN CURRENT USE OF ASPIRIN] Onset: 04-25-2022 Episodic Other aftercare (1 source) Other extermination supervisor (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) drug therapy; Translations: [OTH SNF CURRENT DRUG THERAPY] Onset: 04-25-2022 Episodic Other [...] King MD on 04/20/2024 7:58 AM Normal [facility] CBC AND AUTO DIFFon 04-17-20 ABSOLUTE BASOPHIL 0.0 X10E9/L Normal 0.0-0.2 [facility] Comment on above: Performed By: #### C POOL, 71755-8, [facility], 1987-12, 4485-04, 4497-2, ENAP #### [facility] ([id number]) [address], [address] [address] ABSOLUTE NEUTROPHIL 4.9 X10E9/L Normal 1.5-6.6 [facility] Comment on above: Performed By: #### Luke LANZA, 14509-2, [facility], 1987-12, 4485-04, 4497-2, ENAP #### [facility] ([id number]) [address], [address] [place] [address] Basophils/100 WBC (Bld) 0.3 % Normal [facility] Comment on above: Performed By: #### Luke LANZA, 92318-3, [facility], 1987-12, 4485-04, 2, ENAP #### [facility] ([id number]) [address], [address] [place] [address] Eosinophils (Bld) [#/Vol] 0.2 10*3/uL Normal 0.0-0.4 [facility] Comment on above: Performed By: #### Luke LANZA, 04495-8, CMP, 1987-12, 4485-04, 4492, ENAP #### [facility] ([id number]) [address], [address] [place] [address] Eosinophils/100 WBC (Bld) 2.5 % Normal [facility] Comment on above: Performed By: #### C BCA, 45688-6, CMP, 1987-12, 4485-04, 449-2, ENAP #### [facility] ([id number]) [address], [address] [place] [address] Erythrocyte distribution width (RBC) [Ratio] 13.8 % Normal 11.5-15.0 [facility] Comment on above: Performed By: #### C BCA, 48112-6, CMP, 1987-12, 4485-04, 449-2, ENAP #### [facility] ([id number]) [address], [facility] [address] [place] [address] Hematocrit (Bld) [Volume fraction] 43.2 % Normal 39-49 [facility] Comment on above: Performed By: #### C POOL, 98952-8, CMP, 1987-12, 4485-04, 449-2, ENAP #### [facility] ([id number]) [address], [address] [place] [address] Hemoglobin (Bld) [Mass/Vol] 14.8 g/dL Normal 13.0-17.0 [facility] Comment on above: Performed By: #### C BCA, 04146-2, CMP, 1987-12, 4485-04, 4492, ENAP #### [facility] ([id number]) [address], [facility] [address] [place] [address] Lymphocytes (Bld) [#/Vol] 2.7 10*3/uL Normal 1.0-3.5 [facility] Comment on above: Performed By: #### C BCA, 34534-9, CMP, 1987-12, 4485-04, 449-2, ENAP #### [facility] ([id number]) [address], [facility] [address] [place] [address] Lymphocytes/100 WBC (Bld) 31.7 % Normal [facility] Comment on above: Performed By: #### C BCA, 73691-4, CMP, 1987-12, 4485-04, 4497-2, ENAP #### [facility] ([id number]) [address], [address] [place] [address] MCH (RBC) [Entitic mass] 30.3 pg Normal 27-34 [facility] Comment on above: Performed By: #### C BCA, 39934-4, CMP, 1987-12, 4485-04, 4497-2, ENAP #### [facility] ([id number]) [address], [address] [place] [address] MCHC (RBC) [Mass/Vol] 34.3 g/dL Normal 32-36 [facility] Comment on above: Performed By: #### C POOL, 07843-5, CMP, 1987-12, 4485-04, 2, ENAP #### [facility] ([id number]) [address], [address] [place] [address] MCV (RBC) [Entitic vol] 89 fL Normal 80-100 [facility] Comment on above: Performed By: #### C POOL, 11850-0, CMP, 1987-12, 4485-04, 4492, ENAP #### [facility] ([id number]) [address], [address] [place] [address] Monocytes (Bld) [#/Vol] 0.6 10*3/uL Normal 0-0.9 [facility] Comment on above: Performed By: #### C POOL, 26404-1, CMP, 1987-12, 4485-04, 2, ENAP #### [facility] ([id number]) [address], [address] [place] [address] Monocytes/100 WBC (Bld) 7.5 % Normal [facility] Comment on above: Performed By: #### C BCA, 93161-6, CMP, 1987-12, 4485-04, 4498-2, ENAP #### [facility] ([id number]) [address], [facility] [address] [place] [address] Neutrophils/100 WBC (Bld) 58.0 % Normal [facility] Comment on above: Performed By: #### Luke LANZA, 27194-6, CMP, 1987-12, 4485-04, 4498-2, ENAP #### [facility] ([id number]) [address], [facility] [address] [place] [address] Platelet mean volume (Bld) [Entitic vol] 7.7 fL Normal 7-12 [facility] Comment on above: Performed By: #### Luke LANZA, 37814-3, CMP, 1987-12, 4485-04, 4498-2, ENAP #### [facility] ([id number]) [address], [address] [address] Platelets (Bld) [#/Vol] 330 10*3/uL Normal 150-450 [facility] Comment on above: Performed By: #### Luke LANZA, 17572-2, CMP, 1987-12, 4485-04, 4498-2, ENAP #### [facility] ([id number]) [address], [facility] [address] [place] [address] RBC COUNT 4.87 X10E12/L Normal 4.10-5.70 [facility] Comment on above: Performed By: #### C BCA, 87571-1, CMP, 1987-12, 4485-04, 4498-2, ENAP #### [facility] ([id number]) [address], [facility] [address] [place] [address] WBC (Bld) [#/Vol] 8.4 10*3/uL Normal 4.0-11.0 [facility] Comment on above: Performed By: #### Luke BCA, 29796-7, CMP, 1987-12, 4484-9, 4498-2, ENAP #### [facility] ([id number]) [address], [address] [place] [address] COMPREHENSIVE METABOLIC PANE Rayshawn 04-17-2024 Albumin [Mass/Vol] 4.4 g/dL Normal 3.2-5.3 [facility] Comment on above: Performed By: #### C BCA, 08399-8, CMP, 1987-12, 4484-9, 4498-2, ENAP #### [facility] ([id number]) [address], [address] [place] [address] ALP [Catalytic activity/Vol] 71 U/L Normal 39-130 [facility] Comment on above: Performed By: #### C BCA, 67650-2, CMP, 1987-12, 9, 4498-2, ENAP #### [facility] ([id number]) [address], [address] [place] [address] ALT [Catalytic activity/Vol] 25 U/L Normal 0-40 [facility] Comment on above: Performed By: #### C BCA, 70910-4, CMP, 1987-12, 4485-04, 4498-2, ENAP #### [facility] ([id number]) [address], [address] [place] [address] Anion gap [Moles/Vol] 12 mmol/L Normal 5-15 [facility] Comment on above: Performed By: #### C BCA, 83265-3, CMP, 1987-12, 9, 4498-2, ENAP #### [facility] ([id number]) [address], [address] [place] [address] AST [Catalytic activity/Vol] 17 U/L Normal 0-41 [facility] Comment on above: Performed By: #### C BCA, 51125-8, CMP, 1987-12, 4485-04, 4498-2, ENAP #### [facility] ([id number]) [address], [address] [place] [address] Bilirubin [Mass/Vol] 0.8 mg/dL Normal 0.3-1.2 [facility] Comment on above: Performed By: #### C BCA, 36877-7, CMP, 1987-12, 4485-04, 4498-2, ENAP #### [facility] ([id number]) [address], [address] [place] [address] Calcium [Mass/Vol] 9.5 mg/dL Normal 8.5-10.5 [facility] Comment on above: Performed By: #### C BCA, 41383-9, CMP, 1987-12, 4485-04, 8-2, ENAP #### [facility] ([id number]) [address], [address] [place] [address] Chloride [Moles/Vol] 102 mmol/L Normal 98-109 [facility] Comment on above: Performed By: #### C BCA, 68705-4, CMP, 1987-12, 4485-04, 4492, ENAP #### [facility] ([id number]) [address], [address] [place] [address] CO2 [Moles/Vol] 25 mmol/L Normal 22-32 [facility] Comment on above: Performed By: #### C BCA, 07889-6, CMP, 1987-12, 4485-04, 4498-2, ENAP #### [facility] ([id number]) [address], [address] [place] [address] Creatinine [Mass/Vol] 0.63 mg/dL Normal 0.60-1.30 [facility] Comment on above: Result Comment: METH OD TRACEABLE TO IDMS STANDARD Performed By: #### C BCA, 19540-4, CMP, 1987-12, 4485-04, 4498-2, ENAP #### [facility] ([id number]) [address], [address] [place] [address] eGFR (CKD-EPI) NON-RACE DEPENDENT >90 Normal >59 [facility] Comment on above: Result Comment: Reported eGFR is based on the CKD-EPI 2020 equation that does not use a race coefficient. Performed By: #### C BCA, 62657-0, CMP, 1987-12, 4485-04, 449-2, ENAP #### [facility] ([id number]) [address], [address] [place] [address] Glucose [Mass/Vol] 111 mg/dL High 65-99 [facility] Comment on above: Performed By: #### C BCA, 96539-8, CMP, 1987-12, 4485-04, 449-2, ENAP #### [facility] ([id number]) [address], [address] [place] [address] Potassium [Moles/Vol] 3.8 mmol/L Normal 3.5-5.0 [facility] Comment on above: Performed By: #### C BCA, 58534-8, CMP, 1987-12, 4485-04, 449-2, ENAP #### [facility] ([id number]) [address], [address] [place] [address] Protein [Mass/Vol] 7.2 g/dL Normal 6.0-8.0 [facility] Comment on above: Performed By: #### C BCA, 92733-0, CMP, 1987-12, 4485-04, 4498-2, ENAP #### [facility] ([id number]) [address], [address] [place] [address] Sodium [Moles/Vol] 139 mmol/L Normal 134-146 [facility] Comment on above: Performed By: #### C BCA, 72842-6, CMP, 1987-12, 4485-9, 4498-2, ENAP #### [facility] ([id number]) [address], [address] [place] [address] Urea nitrogen [Mass/Vol] 12 mg/dL Normal 5-23 [facility] Comment on above: Performed By: #### C BCA, 91636-8, CMP, 1987-12, 4485-9, 4498-2, ENAP #### [facility] ([id number]) [address], [address] [place] [address] CRP [Mass/Vol]on 04-17-2024 C REACTIVE PROTEIN 0.8 mg/dL High 0.000-0.7 4 4 [facility] Comment on above: Performed By: #### C POOL, 33721-4, CMP, 1987-12, 4485-9, 4498-2, ENAP #### [facility] ([id number]) [address], [address] [place] [address] Complement C3 [Mass/Vol]on 0 04-17-2024 COMPLEMENT C3 153 mg/dL Normal 86-184 [facility] Comment on above: Performed By: #### C POOL, 35341-4, CMP, 1987-12, 448-9, 4498-2, ENAP #### [facility] ([id number]) [address], [address] [place] [address] Complement C4 [Mass/Vol]on 0 04-17-2024 COMPLEMENT C4 33 mg/dL Normal 16-47 [facility] Comment on above: Performed By: #### C BCA, 66734-2, CMP, 1987-12, 448-9, 4498-2, ENAP #### [facility] ([id number]) [address], [address] [place] [address] VIJAY PANELon 04-17-2024 ANTI-MALAVE AB IGG <0.2 Normal <1.0 [facility] Comment on above: Performed By: #### C POOL, 76574-9, CMP, 1987-12, 4485-04, 4498-2, ENAP #### [facility] ([id number]) [address], [address] [place] [address] JO1 ANTIBODY <0.2 Normal <1.0 [facility] Comment on above: Performed By: #### C BCA, 48618-1, CMP, 1987-12, 4485-04, 4498-2, ENAP #### [facility] ([id number]) [address], [address] [place] [address] ALL SOURCE ANALYST ANTIBODY IGG 0.6 AI Normal <1.0 [facility] Comment on above: Performed By: #### C BCA, 29118-9, CMP, 1987-12, 4485-04, 4498-2, ENAP #### [facility] ([id number]) [address], [address] [place] [address] SCL 70 ANTIBODY <0.2 Normal <1.0 [facility] Comment on above: Performed By: #### C BCA, 94671-0, CMP, 1987-12, 4485-04, 4498-2, ENAP #### [facility] ([id number]) [address], [address] [place] [address] SSA ANTIBODY <0.2 Normal <1.0 [facility] Comment on above: Performed By: #### C BCA, 17107-3, CMP, 1987-12, 4485-04, 4498-2, ENAP #### [facility] ([id number]) [address], [address] [place] [address] SSB ANTIBODY <0.2 Normal <1.0 [facility] Comment on above: Performed By: #### C BCA, 10365-4, CMP, 1987-12, 4485-04, 4498-2, ENAP #### [facility] ([id number]) [address], [address] [place] [address] ESR Photometric method (Bld) [Velocity]on 04-17-2024 ESR, ERYTHROCYTE SEDIMENTATION RATE 19 mm/h High 0-15 [facility] Comment on above: Performed By: #### C BCA, 86611-4, CMP, 1988-5, 4485-9, 4498-2, ENAP #### [facility] ([id number]) [address], [address] [place] [address] Automated basophil %Ordered By: Margaret Malave on 03-30-2024 Basophils/100 WBC (Bld) 0.4 % Normal . [facility] Comment on above: Performed By: #### B MP, MG, CBC #### [facility] [address] Automated basophil countOrde red By: Margaret Malave on 03-30-2024 Basophils (Bld) [#/Vol] 0.1 10*3/uL Normal 0.0-0.2 [facility] Comment on above: Result Comment: PERF ORMED BY: [place] [address] PATHOLOGIST RELIEF CHARGE NURSE MARLYN MCKEON M.D. Performed By: #### B MP, MG, CBC #### [facility] [address] Automated blood monocyte cou ntOrdered By: Margaret Malave on 03-30-2024 Monocytes (Bld) [#/Vol] 1.8 10*3/uL High 0.0-0.8 [facility] Comment on above: Performed By: #### B MP, MG, CBC #### [facility] [address] Automated eosinophil %Ordere d By: Margaret Malave on 03-30-2024 Eosinophils/100 WBC (Bld) 1.0 % Normal . [facility] Comment on above: Performed By: #### B MP, MG, CBC #### [facility] [address] Automated eosinophil countOr dered By: Margaret Malave on 03-30-2024 Eosinophils (Bld) [#/Vol] 0.2 10*3/uL Normal 0.0-0.45 [facility] Comment on above: Performed By: #### B MP, MG, CBC #### [facility] [address] [place] [address] Automated monocyte %Ordered By: Margaret Malave on 03-30-2024 Monocytes/100 WBC (Bld) 9.0 % Normal . [facility] Comment on above: Performed By: #### B MP, MG, CBC #### [address] Automated neutrophil %Ordere d By: Margaret Malave on 03-30-2024 Neutrophils/100 WBC (Bld) 67.6 % Normal . [facility] Comment on above: Performed By: #### B MP, MG, CBC #### [address] Basic Metabolic Panelon Creatinine Clr Calc Pharmacy 238.21 Normal [facility] Comment on above: Performed By: #### B MP, MG, CBC #### [address] GFR/1.73 sq M.predicted MDRD (S/P/Bld) [Vol rate/Area] mL/min/{1.73_m2} Normal [facility] Comment on above: Performed By: #### B MP, MG, CBC #### [address] head/brain wo conon 03-30 CT head/brain [place] [facility] [place] [address] CT Scan Report Signed Patient: Bhumika Umana JR MR#: [id number] : 1975 Acct:[id number] Age/Sex: 48 / M ADM Date: 03/30/24 Loc: Room: [address] [place] [address] Type: ADM INOo Attending Dr: Bola Garcia [...] Mert Ferreira M.D.03/30/2024 9:26 AM Dictation Location: [place] [address] Transcribed By: [facility] 03/30/24925 Dictated By: Mert Ferreira DO 03/30/24917 Signed By: 03/30/24925 Normal [facility] Calcium [Mass/volume] in Ser um or PlasmaOrdered By: Margaret Malave on 03-30-2024 Calcium [Mass/Vol] 9.3 mg/dL Normal 8.6-10.3 [facility] Comment on above: Performed By: #### B MP, MG, CBC #### [facility] [address] [place] [address] Capillary blood glucose pete urement by glucometer (mass/volume)Ordered By: Edgar Gomez on 03-30-2024 Glucose [Mass/Vol] 115 mg/dL Normal [facility] Comment on above: Random Glucose Refer ence Range is dependent on time and content of last meal. Glucose of more than 200 mg/dL in a nonstressed, ambulatory subject supports the diagnosis of Diabetes Mellitus. Result Comment: [place] om Glucose Reference Range is dependent on time and content of last meal. Glucose of more than 200 mg/dL in a nonstressed, ambulatory subject supports the diagnosis of Diabetes Mellitus. PERFORMED BY: [place] [address] PATHOLOGIST RELIEF CHARGE NURSE MARLYN MCKEON M.D. Performed By: #### G MARGARITA #### Point of Care testing , Carbon dioxide, total [Moles /volume] in Serum or PlasmaOrdered By: Margaret Malave on 03-30-2024 CO2 [Moles/Vol] 27.2 mmol/L Normal 21.0-31.0 [facility] Comment on above: Performed By: #### B MP, MG, CBC #### [address] Chloride [Moles/volume] in S vandana or PlasmaOrdered By: Margaret Malave on 03-30-2024 Chloride [Moles/Vol] 101 mmol/L Normal 98-107 [facility] Comment on above: Performed By: #### B MP, MG, CBC #### [address] Complete Blood Count Auto Di ffon 03-30-2024 Mean Corpuscular HGB Conc 33.3 g/dL Normal 32.5-35.6 [facility] Comment on above: Performed By: #### B MP, MG, CBC #### [address] NRBC% 0.0 /100{WBC} Normal 0-0.5 [facility] Comment on above: Performed By: #### B MP, MG, CBC #### [address] Creatinine [Mass/volume] in Serum or PlasmaOrdered By: Margaret Malave on 03-30-2024 Creatinine [Mass/Vol] 0.61 mg/dL Low 0.70-1.30 [facility] Comment on above: Performed By: #### B MP, MG, CBC #### [address] Erythrocyte distribution wid th [Ratio] by Automated countOrdered By: Margaret Malave on 08-03-2024 Erythrocyte distribution width (RBC) [Ratio] 13.6 % Normal 12.0-14.8 [facility] Comment on above: Performed By: #### B MP, MG, CBC #### [facility] [address] Erythrocytes [#/volume] in B lood by Automated countOrdered By: Margaret Malave on 03-30-2024 RBC (Bld) [#/Vol] 5.03 10*6/uL Normal 3.90-5.60 [facility] Comment on above: Performed By: #### B MP, MG, CBC #### [facility] [address] Glucose Poct Glucometerson 0 03-30-2024 Glucose [Mass/Vol] 159 mg/dL Normal [facility] Comment on above: Result Comment: [place] Glucose Reference Range is dependent on time and content of last meal. Glucose of more than 200 mg/dL in a nonstressed, ambulatory subject supports the diagnosis of Diabetes Mellitus. PERFORMED BY: [place] [address] PATHOLOGIST RELIEF CHARGE NURSE MARLYN MCKEON M.D. Performed By: #### C BC, MG, PHOS, CMP #### [facility] [address] Glucose [Mass/Vol] 144 mg/dL Normal [facility] Comment on above: Result Comment: [place] Glucose Reference Range is dependent on time and content of last meal. Glucose of more than 200 mg/dL in a nonstressed, ambulatory subject supports the diagnosis of Diabetes Mellitus. PERFORMED BY: [place] [address] PATHOLOGIST RELIEF CHARGE NURSE MARLYN MCKEON M.D. Performed By: #### C BC, MG, PHOS, CMP #### [facility] [address] [place] [id number] [facility] Glucose [Mass/volume] in Ser um or PlasmaOrdered By: Margaret Malave on 03-30-2024 Glucose [Mass/Vol] 119 mg/dL High 70-100 [facility] Comment on above: ADA recommended refe rence rangeRandom Glucose Reference Range is dependent on time and content of last meal. Glucose of more than 200 mg/dL in a nonstressed, ambulatory subject supports the diagnosis of Diabetes Mellitus. Result Comment: [place] om Glucose Reference Range is dependent on time and content of last meal. Glucose of more than 200 mg/dL in a nonstressed, ambulatory subject supports the diagnosis of Diabetes Mellitus. ADA recommended reference range Performed By: #### B MP, MG, CBC #### [facility] [address] Hematocrit [Volume Fraction] of Blood by Automated countOrdered By: Margaret Malave on 03-30-2024 Hematocrit (Bld) [Volume fraction] 44.6 % Normal 38.8-50.0 [facility] Comment on above: Performed By: #### B MP MG, CBC #### [address] Hemoglobin [Mass/volume] in BloodOrdered By: Margaret Malave on 03-30-2024 Hemoglobin (Bld) [Mass/Vol] 14.9 g/dL Normal 13.0-17.0 [facility] Comment on above: Performed By: #### B MIGUEL MG, CBC #### [address] Leukocytes [#/volume] correc elizabeth for nucleated erythrocytes in Blood by Automated counOrdered By: Margaret Malave on 03-30-2024 WBC corrected for nucl RBC Auto (Bld) [#/Vol] 20.0 10*3/uL High 4.1-10.5 [facility] Leukocytes [#/volume] in Blo od by Automated countOrdered By: Margaret Malave on 03-30-2024 WBC (Bld) [#/Vol] 20.0 10*3/uL High 4.1-10.5 [facility] Comment on above: Performed By: #### B MP, MG, CBC #### [place] [address] [place] Lymphocytes [#/volume] in Bl ood by Automated countOrdered By: Margaret Malave on 03-30-2024 Lymphocytes (Bld) [#/Vol] 4.4 10*3/uL Normal 1.00-4.8 [facility] Comment on above: Performed By: #### B MP, MG, CBC #### [address] Lymphocytes/100 leukocytes i n Blood by Automated countOrdered By: Margaret Malave on 03-30-2024 Lymphocytes/100 WBC (Bld) 22.0 % Normal . [facility] Comment on above: Performed By: #### B MP, MG, CBC #### [address] MCH [Entitic mass] by Automa elizabeth countOrdered By: Margaret Malave on 03-30-2024 MCH (RBC) [Entitic mass] 29.5 pg Normal 27.5-35.2 [facility] Comment on above: Performed By: #### B MP, MG, CBC #### [address] MCHC Auto (RBC) [Mass/Vol]Or dered By: Margaret Malave on 03-30-2024 MCHC (RBC) [Mass/Vol] 33.3 g/dL 32.5-35.6 [facility] MCV [Entitic volume] by Auto mated countOrdered By: Margaret Malave on 03-30-2024 MCV (RBC) [Entitic vol] 88.6 fL Normal 83.5-101 [facility] Comment on above: Performed By: #### B MP, MG, CBC #### [address] Magnesium [Mass/volume] in S vandana or PlasmaOrdered By: Margaret Malave on 03-30-2024 Magnesium [Mass/Vol] 1.8 mg/dL Low 1.9-2.7 [facility] Comment on above: Result Comment: PERF ORMED BY: [place] [address] PATHOLOGIST RELIEF CHARGE NURSE MARLYN MCKEON M.D. Performed By: #### B MP, MG, CBC #### [address] Neutrophils [#/volume] in Bl ood by Automated countOrdered By: Margaret Malave on 03-30-2024 Neutrophils (Bld) [#/Vol] 13.5 10*3/uL High 1.8-7.7 [facility] Comment on above: Performed By: #### B MP, MG, CBC #### [facility] [address] [place] [address] No Panel InformationOrdered By: Margaret Malave on 03-30-2024 Estimated GFR (CKD-EPI) > 60.0 mL/Min [facility] Creatinine Clearance (Chem 238.21 [facility] Nucleated erythrocytes [Pres ence] in Blood by Automated countOrdered By: Margaret Malave on 03-30-2024 Nucleated RBC Auto Ql (Bld) 0.0 /100{WBC} 0-0.5 [facility] Platelet mean volume [Entiti c volume] in Blood by Automated countOrdered By: Margaret Malave on 03-30-2024 Platelet mean volume (Bld) [Entitic vol] 7.5 fL Normal 6.6-10.1 [facility] Comment on above: Performed By: #### B MP, MG, CBC #### [facility] [address] [place] [address] Platelets [#/volume] in Bloo d by Automated countOrdered By: Margaret Malave on 03-30-2024 Platelets (Bld) [#/Vol] 324 10*3/uL Normal 150-450 [facility] Comment on above: Performed By: #### B MP, MG, CBC #### [facility] [address] [place] [address] Potassium [Moles/volume] in Serum or PlasmaOrdered By: Margaret Malave on 03-30-2024 Potassium [Moles/Vol] 4.4 mmol/L Normal 3.5-5.1 [facility] Comment on above: Performed By: #### B MP, MG, CBC #### [facility] [address] [place] [address] Serum or plasma anion gap de terminationOrdered By: Margaret Malave on 03-30-2024 Anion gap [Moles/Vol] 12.2 mmol/L Normal 6.0-15.0 [facility] Comment on above: Performed By: #### B MP, MG, CBC #### [facility] [address] [place] [address] Sodium [Moles/volume] in Ser um or PlasmaOrdered By: Margaret Malave on 03-30-2024 Sodium [Moles/Vol] 136 mmol/L Normal 136-145 [facility] Comment on above: Performed By: #### B MP, MG, CBC #### [facility] [address] [place] [address] Urea nitrogen [Mass/volume] in Serum or PlasmaOrdered By: Margaret Malave on 03-30-2024 Urea nitrogen [Mass/Vol] 13 mg/dL Normal 7-25 [facility] Comment on above: Performed By: #### B MP, MG, CBC #### [facility] [address] [place] [address] Automated basophil %Ordered By: Emily Winn on 03-29-2024 Basophils/100 WBC (Bld) 0.5 % Normal . [facility] Comment on above: Performed By: #### G LULS #### Point of Care testing , Automated basophil countOrde red By: Emily Winn on 03-29-2024 Basophils (Bld) [#/Vol] 0.1 10*3/uL Normal 0.0-0.2 [facility] Comment on above: Performed By: #### G LULS #### Point of Care testing , Automated blood monocyte cou ntOrdered By: Emily Winn on 03-29-2024 Monocytes (Bld) [#/Vol] 1.1 10*3/uL High 0.0-0.8 [facility] Comment on above: Performed By: #### G LULS #### Point of Care testing , Automated eosinophil %Ordere d By: Emily iWnn on 03-29-2024 Eosinophils/100 WBC (Bld) 0.6 % Normal . [facility] Comment on above: Performed By: #### G LULS #### Point of Care testing , Automated eosinophil countOr dered By: Emily Winn on 03-29-2024 Eosinophils (Bld) [#/Vol] 0.1 10*3/uL Normal 0.0-0.45 [facility] Comment on above: Performed By: #### G LULS #### Point of Care testing , Automated monocyte %Ordered By: Emily Winn on 03-29-2024 Monocytes/100 WBC (Bld) 6.5 % Normal . [facility] Comment on above: Performed By: #### G LULS #### Point of Care testing , Automated neutrophil %Ordere d By: Emily Mosqueraelizabeth on 03-29-2024 Neutrophils/100 WBC (Bld) 77.7 % Normal . [facility] Comment on above: Performed By: #### G LULS #### Point of Care testing , Basic Metabolic Panelon Creatinine Clr Calc Pharmacy 196.64 Normal [facility] Comment on above: Performed By: #### B MP, MG, CBC #### [address] GFR/1.73 sq M.predicted MDRD (S/P/Bld) [Vol rate/Area] mL/min/{1.73_m2} Normal [facility] Comment on above: Performed By: #### B MP, MG, CBC #### [facility] [address] [place] [address] [place] C reactive protein [Mass/vol ume] in Serum or PlasmaOrdered By: Emily Winn on 03-29-2024 CRP [Mass/Vol] < 0.5 mg/dL 0.0-0.5 [facility] C-Reactive Proteinon 024 CRP [Mass/Vol] mg/L Normal 0.0-0.5 [facility] Comment on above: Result Comment: PERF ORMED BY: [address] [place] [address] PATHOLOGIST RELIEF CHARGE NURSE MARLYN MCKEON M.D. Performed By: #### B MP, MG, CBC #### [facility] [address] Calcium [Mass/volume] in Ser um or PlasmaOrdered By: Emily Winn on 03-29-2024 Calcium [Mass/Vol] 9.3 mg/dL Normal 8.6-10.3 [facility] Comment on above: Performed By: #### B MP, MG, CBC #### [address] Capillary blood glucose pete urement by glucometer (mass/volume)Ordered By: Emily Winn on 03-29-2024 Glucose [Mass/Vol] 204 mg/dL Normal [facility] Comment on above: Random Glucose Refer ence Range is dependent on time and content of last meal. Glucose of more than 200 mg/dL in a nonstressed, ambulatory subject supports the diagnosis of Diabetes Mellitus. Result Comment: [place] Glucose Reference Range is dependent on time and content of last meal. Glucose of more than 200 mg/dL in a nonstressed, ambulatory subject supports the diagnosis of Diabetes Mellitus. PERFORMED BY: [place] [address] PATHOLOGIST RELIEF CHARGE NURSE MARLYN MCKEON M.D. Performed By: #### C BC, MG, PHOS, CMP #### [address] Carbon dioxide, total [Moles /volume] in Serum or PlasmaOrdered By: Emily Winn on 03-29-2024 CO2 [Moles/Vol] 23.0 mmol/L Normal 21.0-31.0 [facility] Comment on above: Performed By: #### B MP, MG, CBC #### [place] [address] [place] Chloride [Moles/volume] in S vandana or PlasmaOrdered By: Emily Winn on 03-29-2024 Chloride [Moles/Vol] 101 mmol/L Normal 98-107 [facility] Comment on above: Performed By: #### B MP, MG, CBC #### [address] Complete Blood Count Auto Di ffon 03-29-2024 Mean Corpuscular HGB Conc 33.1 g/dL Normal 32.5-35.6 [facility] Comment on above: Performed By: #### G LULS #### Point of Care testing , Monocytes/100 WBC (Bld) 16.02 % Normal 0.00-20.00 [facility] Comment on above: Performed By: #### G LULS #### Point of Care testing , NRBC% 0.1 /100{WBC} Normal 0-0.5 [facility] Comment on above: Performed By: #### G LULS #### Point of Care testing , Creatine kinase [Enzymatic a ctivity/volume] in Serum or PlasmaOrdered By: Emily Winn on 03-29-2024 CK [Catalytic activity/Vol] 37 U/L Normal 30-223 [facility] Comment on above: Result Comment: PERF ORMED BY: [place] [address] PATHOLOGIST RELIEF CHARGE NURSE MARLYN MCKEON M.D. Performed By: #### G LULS #### Point of Care testing , Creatinine [Mass/volume] in Serum or PlasmaOrdered By: Emily Winn on 03-29-2024 Creatinine [Mass/Vol] 0.74 mg/dL Normal 0.70-1.30 [facility] Comment on above: Performed By: #### B MP, MG, CBC #### [facility] [address] [place] [address] Erythrocyte Sedimentation Ra devaughn 03-29-2024 ESR (Bld) [Velocity] 12 mm/h Normal 0-14 [facility] Comment on above: Result Comment: PERF ORMED BY: [place] [address] PATHOLOGIST RELIEF CHARGE NURSE MARLYN MCKEON M.D. Performed By: #### G LULS #### Point of Care testing , Erythrocyte distribution wid th [Ratio] by Automated countOrdered By: Emily Winn on 03-29-2024 Erythrocyte distribution width (RBC) [Ratio] 13.6 % Normal 12.0-14.8 [facility] Comment on above: Performed By: #### G LULS #### Point of Care testing , Erythrocyte sedimentation ra te by Photometric methodOrdered By: Emily Winn on 03-29-2024 ESR Photometric method (Bld) [Velocity] 12 mm/hr 0-14 [facility] Erythrocytes [#/volume] in B lood by Automated countOrdered By: Emily Winn on 03-29-2024 RBC (Bld) [#/Vol] 5.15 10*6/uL Normal 3.90-5.60 [facility] Comment on above: Performed By: #### G LULS #### Point of Care testing , Glucose [Mass/volume] in Ser um or PlasmaOrdered By: Emily Winn on 03-29-2024 Glucose [Mass/Vol] 201 mg/dL High 70-100 [facility] Comment on above: ADA recommended refe rence rangeRandom Glucose Reference Range is dependent on time and content of last meal. Glucose of more than 200 mg/dL in a nonstressed, ambulatory subject supports the diagnosis of Diabetes Mellitus. Result Comment: [place] Glucose Reference Range is dependent on time and content of last meal. Glucose of more than 200 mg/dL in a nonstressed, ambulatory subject supports the diagnosis of Diabetes Mellitus. ADA recommended reference range Performed By: #### B MP, MG, CBC #### [facility] [address] Hematocrit [Volume Fraction] of Blood by Automated countOrdered By: Emily Winn on 03-29-2024 Hematocrit (Bld) [Volume fraction] 45.6 % Normal 38.8-50.0 [facility] Comment on above: Performed By: #### G LULS #### Point of Care testing , Hemoglobin [Mass/volume] in BloodOrdered By: Emily Winn on 03-29-2024 Hemoglobin (Bld) [Mass/Vol] 15.1 g/dL Normal 13.0-17.0 [facility] Comment on above: Performed By: #### G LULS #### Point of Care testing , Leukocytes [#/volume] correc elizabeth for nucleated erythrocytes in Blood by Automated counOrdered By: Emily Winn on 03-29-2024 WBC corrected for nucl RBC Auto (Bld) [#/Vol] 17.1 10*3/uL High 4.1-10.5 [facility] Leukocytes [#/volume] in Blo od by Automated countOrdered By: Emily Winn on 03-29-2024 WBC (Bld) [#/Vol] 17.1 10*3/uL High 4.1-10.5 [facility] Comment on above: Performed By: #### G LULS #### Point of Care testing , Lymphocytes [#/volume] in Bl ood by Automated countOrdered By: Emily Winn on 03-29-2024 Lymphocytes (Bld) [#/Vol] 2.5 10*3/uL Normal 1.00-4.8 [facility] Comment on above: Performed By: #### G LULS #### Point of Care testing , Lymphocytes/100 leukocytes i n Blood by Automated countOrdered By: Emliy Winn on 03-29-2024 Lymphocytes/100 WBC (Bld) 14.7 % Normal . [facility] Comment on above: Performed By: #### G LULS #### Point of Care testing , MCH [Entitic mass] by Automa elizabeth countOrdered By: Emily Winn on 03-29-2024 MCH (RBC) [Entitic mass] 29.3 pg Normal 27.5-35.2 [facility] Comment on above: Performed By: #### G LULS #### Point of Care testing , MCHC Auto (RBC) [Mass/Vol]Or dered By: Emily Winn on 03-29-2024 MCHC (RBC) [Mass/Vol] 33.1 g/dL 32.5-35.6 [facility] MCV [Entitic volume] by Auto mated countOrdered By: Emily Winn on 03-29-2024 MCV (RBC) [Entitic vol] 88.5 fL Normal 83.5-101 [facility] Comment on above: Performed By: #### G LULS #### Point of Care testing , Monocyte distribution width [Entitic volume] in Blood by AutomatedOrdered By: Emily Winn on 03-29-2024 Monocyte distribution width Auto (Bld) [Entitic vol] 16.02 % 0.00-20.00 [facility] Myoglobinon 03-29-2024 Myoglobin [Mass/Vol] 31 ng/mL Normal 28-72 [facility] Comment on above: Result Comment: Perf ormed at: CB - [facility] [address] [id number] [address] Worker: Gabriel Chan PhD, Phone: [phone] PERFORMED BY: [place] [address] PATHOLOGIST RELIEF CHARGE NURSE MARLYN MCKEON M.D. Performed By: #### B MP, MG, CBC #### [address] Neutrophils [#/volume] in Bl ood by Automated countOrdered By: Emily Winn on 03-29-2024 Neutrophils (Bld) [#/Vol] 13.3 10*3/uL High 1.8-7.7 [facility] Comment on above: Performed By: #### G LULS #### Point of Care testing , No Panel InformationOrdered By: Emily Winn on 03-29-2024 Estimated GFR (CKD-EPI) > 60.0 mL/Min [facility] Creatinine Clearance (Chem 196.64 [facility] Nucleated erythrocytes [Pres ence] in Blood by Automated countOrdered By: Emily Winn on 03-29-2024 Nucleated RBC Auto Ql (Bld) 0.1 /100{WBC} 0-0.5 [facility] Platelet mean volume [Entiti c volume] in Blood by Automated countOrdered By: Emily Winn on 03-29-2024 Platelet mean volume (Bld) [Entitic vol] 7.4 fL Normal 6.6-10.1 [facility] Comment on above: Performed By: #### G LULS #### Point of Care testing , Platelets [#/volume] in Bloo d by Automated countOrdered By: Emily Winn on 03-29-2024 Platelets (Bld) [#/Vol] 352 10*3/uL Normal 150-450 [facility] Comment on above: Performed By: #### G MARGARITA #### Point of Care testing , Potassium [Moles/volume] in Serum or PlasmaOrdered By: Emily Winn on 03-29-2024 Potassium [Moles/Vol] 4.4 mmol/L Normal 3.5-5.1 [facility] Comment on above: Performed By: #### B MP, MG, CBC #### [address] Serum or plasma anion gap de terminationOrdered By: Emily Winn on 03-29-2024 Anion gap [Moles/Vol] 14.4 mmol/L Normal 6.0-15.0 [facility] Comment on above: Performed By: #### B MP, MG, CBC #### [facility] [address] [place] [address] Sodium [Moles/volume] in Ser um or PlasmaOrdered By: Emily Winn on 03-29-2024 Sodium [Moles/Vol] 134 mmol/L Low 136-145 [facility] Comment on above: Performed By: #### B MP, MG, CBC #### [facility] [address] [place] [address] Urea nitrogen [Mass/volume] in Serum or PlasmaOrdered By: Emily Winn on 03-29-2024 Urea nitrogen [Mass/Vol] 15 mg/dL Normal 7-25 [facility] Comment on above: Performed By: #### B MP, MG, CBC #### [facility] [address] [place] [address] [place] Activated partial thrombopla stin time (aPTT) in platelet poor plasma by coagulation aOrdered By: Danial Horan on 03-25-2024 aPTT Coag (PPP) [Time] 30.2 s 25.1-36.5 [facility] Comment on above: A hematocrit value g reater than 55% may lead to inaccurate results in coagulation testing. Patients having hematocrit values >55% require a special collection tube for coagulation studies. Please contact the laboratory at [phone] for redraw instructions. Aerobic Cultureon 03-25-2024 Aerobic [...] Seen 2+ White Blood Cells PERFORMED BY: [place] [address] PATHOLOGIST RELIEF CHARGE NURSE MARLYN MCKEON M.D. Normal [facility] Comment on above: Performed By: #### C BC, MG, PHOS, CMP #### [address] Albumin [Mass/volume] in Cer ebral spinal fluidOrdered By: Danial Horan on 03-25-2024 Albumin (CSF) [Mass/Vol] 46 mg/dL High 10-45 [facility] Albumin [Mass/volume] in Ser um or PlasmaOrdered By: Danial Horan on 03-25-2024 Albumin [Mass/Vol] 4.2 g/dL 4.1-5.1 [facility] CSF IgG/albumin ratioOrdered By: Danial Horan on 03-25-2024 IgG/Albumin (CSF) [Mass ratio] 0.13 0.00-0.25 [facility] CSF PCR Panelon 03-25-2024 CSF PCR Panel [...] Varicella zoster virus Not detected PERFORMED BY: [place] [address] PATHOLOGIST RELIEF CHARGE NURSE MARLYN MCKEON M.D. Normal [facility] Comment on above: Performed By: #### C BC, MG, PHOS, CMP #### [address] Capillary blood glucose pete urement by glucometer (mass/volume)Ordered By: Simon Wolfe on 03-25-2024 Glucose [Mass/Vol] 127 mg/dL Normal [facility] Comment on above: Random Glucose Refer ence Range is dependent on time and content of last meal. Glucose of more than 200 mg/dL in a nonstressed, ambulatory subject supports the diagnosis of Diabetes Mellitus. Result Comment: [place] Glucose Reference Range is dependent on time and content of last meal. Glucose of more than 200 mg/dL in a nonstressed, ambulatory subject supports the diagnosis of Diabetes Mellitus. PERFORMED BY: [place] [address] PATHOLOGIST RELIEF CHARGE NURSE MARLYN MCKEON M.D. Performed By: #### B MP, MG, CBC #### [place] [address] [place] Cell Count Differential,CSFo n 03-25-2024 Appearance, CSF Turbid Critically abnormal Clear [facility] Comment on above: Order Comment: Comme nt Tube 1 Performed By: #### C BC, MG, PHOS, CMP #### [address] Color, CSF Red Critically abnormal Colorless [facility] Comment on above: Order Comment: Comme nt Tube 1 Performed By: #### C BC, MG, PHOS, CMP #### [place] [address] [place] Eosinophil, CSF 2 % High 0-0 [facility] Comment on above: Order Comment: Comme nt Tube 1 Performed By: #### C BC, MG, PHOS, CMP #### [place] [address] [place] Lymphocytes, CSF 19 % Low 40-80 [facility] Comment on above: Order Comment: Comme nt Tube 1 Performed By: #### C BC, MG, PHOS, CMP #### [address] Monocytes, CSF 7 % Low 15-45 [facility] Comment on above: Order Comment: Comme nt Tube 1 Performed By: #### C BC, MG, PHOS, CMP #### [address] Neutrophils, CSF 72 % High 0-6 [facility] Comment on above: Order Comment: Comme nt Tube 1 Performed By: #### C BC, MG, PHOS, CMP #### [address] [place] [address] Normal [facility] Comment on above: Order Comment: Comme nt Tube 1 Result Comment: The reference interval and other method performance specifications have not been established for this body fluid. The test result must be integrated into the clinical context for interpretation. Performed By: #### C BC, MG, PHOS, CMP #### [address] TNC, CSF 85 Off scale high 0-5 [facility] Comment on above: Order Comment: Comme nt Tube 1 Result Comment: Crit ical value result called at 1233 on 03/25/24 Performed By: #### C BC, MG, PHOS, CMP #### [address] Tube Number Tested, CSF Tube Number: 1 Normal [facility] Comment on above: Order Comment: Comme nt Tube 1 Result Comment: PERF ORMED BY: [place] [address] PATHOLOGIST RELIEF CHARGE NURSE MARLYN MCKEON M.D. Performed By: #### C BC, MG, PHOS, CMP #### [address] Cell Count Differential,CSF #2on 03-25-2024 Appearance, CSF Hazy Critically abnormal Clear [facility] Comment on above: Order Comment: Comme nt Tube 3 Performed By: #### C BC, MG, PHOS, CMP #### [facility] [address] [place] [address] Color, CSF LT PINK Normal Colorless [facility] Comment on above: Order Comment: Comme nt Tube 3 Performed By: #### C BC, MG, PHOS, CMP #### [facility] [address] [place] [address] CSF Supernatant Color Colorless Normal Colorless [facility] Comment on above: Order Comment: Comme nt Tube 3 Performed By: #### C BC, MG, PHOS, CMP #### [facility] [address] [place] [address] Order Comment: Comme nt Tube 1 CSF Volume, Total 9.0 mL Normal [facility] Comment on above: Order Comment: Comme nt Tube 3 Performed By: #### C BC, MG, PHOS, CMP #### [address] Order Comment: Comme nt Tube 1 Eosinophil, CSF 1 % High 0-0 [facility] Comment on above: Order Comment: Comme nt Tube 3 Performed By: #### C BC, MG, PHOS, CMP #### [address] Lymphocytes, CSF 29 % Low 40-80 [facility] Comment on above: Order Comment: Comme nt Tube 3 Performed By: #### C BC, MG, PHOS, CMP #### [facility] [address] [place] [address] Monocytes, CSF 8 % Low 15-45 [facility] Comment on above: Order Comment: Comme nt Tube 3 Performed By: #### C BC, MG, PHOS, CMP #### [facility] [address] [place] [address] Neutrophils, CSF 62 % High 0-6 [facility] Comment on above: Order Comment: Comme nt Tube 3 Performed By: #### C BC, MG, PHOS, CMP #### [facility] [address] [place] [address] RBC, CSF 3051 Normal [facility] Comment on above: Order Comment: Comme nt Tube 3 Result Comment: The reference interval and other method performance specifications have not been established for this body fluid. The test result must be integrated into the clinical context for interpretation. Performed By: #### C BC, MG, PHOS, CMP #### [facility] [address] TNC, CSF 3 /uL Normal 0-5 [facility] Comment on above: Order Comment: Comme nt Tube 3 Performed By: #### C BC, MG, PHOS, CMP #### [facility] [address] Tube Number Tested, CSF Tube Number: 3 Normal [facility] Comment on above: Order Comment: Comme nt Tube 3 Result Comment: PERF ORMED BY: [place] [address] PATHOLOGIST RELIEF CHARGE NURSE MARLYN MCKEON M.D. Performed By: #### C BC, MG, PHOS, CMP #### [facility] [address] Cells Counted Total [#] in B patricia fluidOrdered By: Danial Horan on 03-25-2024 Cells Counted Total (Body fld) [#] 85 mm^3 High 0-5 [facility] Comment on above: Critical valueresult calledat 1233 on 03/25/24 Cerebrospinal fluid IgG inde xOrdered By: Danial Horan on 03-25-2024 IgG clearance/Albumin clearance (S+CSF) [Ratio] 0.6 0.0-0.7 [facility] Cerebrospinal fluid appearan ce descriptionOrdered By: Danial Horan on 03-25-2024 Appearance (CSF) Hazy Abnormal Clear [facility] Cerebrospinal fluid eosinoph il percentageOrdered By: Danial Horan on 03-25-2024 Eosinophils/100 WBC (CSF) 2 % High 0-0 [facility] Cerebrospinal fluid lymphocy te percentageOrdered By: Danial Horan on 03-25-2024 Lymphocytes/Leukocytes Manual cnt (CSF) [Pure # fraction] 19 % Low 40-80 [facility] Cerebrospinal fluid monocyte percentageOrdered By: Danial Horan on 03-25-2024 Monocytes/100 WBC (CSF) 7 % Low 15-45 [facility] Cerebrospinal fluid neutroph il percentageOrdered By: Danial Horan on 03-25-2024 Neutrophils/100 WBC (CSF) 72 % High 0-6 [facility] Cerebrospinal fluid post-oneil trifugation appearance determinationOrdered By: Danial Horan on 03-25-2024 Appearance (Spun CSF) Colorless Colorless [facility] Cerebrospinal fluid sample t ube volume measurementOrdered By: Danial Horan on 03-25-2024 Specimen volume (CSF) 9.0 mL [facility] Color CSFOrdered By: Danial Crawley pler on 03-25-2024 Color (CSF) Lt pink Colorless [facility] Erythrocytes [#/volume] in B patricia fluid by Automated countOrdered By: Danial Horan on 03-25-2024 RBC Auto (Body fld) [#/Vol] 3051 mm^3 [facility] Comment on above: The reference interv al and other method performance specifications have not been established for this body fluid. The test result must be integrated into the clinical context for interpretation. Glucose Poct Glucometerson 0 03-25-2024 Glucose [Mass/Vol] 156 mg/dL Normal [facility] Comment on above: Result Comment: [facility] Glucose Reference Range is dependent on time and content of last meal. Glucose of more than 200 mg/dL in a nonstressed, ambulatory subject supports the diagnosis of Diabetes Mellitus. PERFORMED BY: [place] [address] PATHOLOGIST RELIEF CHARGE NURSE MARLYN MCKEON M.D. Performed By: #### C BC, MG, PHOS, CMP #### [address] Glucose [Mass/Vol] 114 mg/dL Normal [facility] Comment on above: Result Comment: [facility] Glucose Reference Range is dependent on time and content of last meal. Glucose of more than 200 mg/dL in a nonstressed, ambulatory subject supports the diagnosis of Diabetes Mellitus. PERFORMED BY: [place] [address] PATHOLOGIST RELIEF CHARGE NURSE MARLYN MCKEON M.D. Performed By: #### G LULS #### Point of Care testing , Glucose [Mass/Vol] 99 mg/dL Normal [facility] Comment on above: Result Comment: [facility] Glucose Reference Range is dependent on time and content of last meal. Glucose of more than 200 mg/dL in a nonstressed, ambulatory subject supports the diagnosis of Diabetes Mellitus. PERFORMED BY: [place] [address] PATHOLOGIST RELIEF CHARGE NURSE AMRLYN MCKEON M.D. Performed By: #### G LULS #### Point of Care testing , Glucose [Mass/volume] in Cer ebral spinal fluidOrdered By: Danial Horan on 03-25-2024 Glucose (CSF) [Mass/Vol] 72 mg/dL High 40-70 [facility] Glucose, CSF #2on 03-25-2024 Glucose, CSF #2 72 mg/dL High 40-70 [facility] Comment on above: Order Comment: Comme nt Tube 3 Performed By: #### C BC, MG, PHOS, CMP #### [facility] [address] [place] [address] [place] Glucose, Spinal Fluidon 02-26 Glucose, Spinal Fluid 72 mg/dL High 40-70 [facility] Comment on above: Order Comment: Comme nt Tube 1 Performed By: #### C BC, MG, PHOS, CMP #### [facility] [address] [place], [place] [id number] [place] Gram Stainon 03-25-2024 Microscopic observation Gram stain Nom (Unsp spec) PER LAB PROTOCAL - WHEN PCR ORDERED, A CULTURE MUST BE ORDERED. Tube Number for CSF Microbiology: 2 Gram Stain Result No Bacteria Seen 2+ White Blood Cells PERFORMED BY: [place] [address] PATHOLOGIST RELIEF CHARGE NURSE MARLYN MCKEON M.D. Normal [facility] Comment on above: Performed By: #### C BC, MG, PHOS, CMP #### [address] Gram stain for investigation of transfusion reactionOrdered By: Danial Horan on 03-25-2024 Microscopic observation Gram stain Nom (Unsp spec) [facility] Microscopic observation Gram stain Nom (Unsp spec) No Anaerobes Isolated 3 Days [facility] INR in Platelet poor plasma by Coagulation assayOrdered By: Danial Horan on 03-25-2024 INR Coag (PPP) [Relative time] 1.0 {INR} Normal [facility] Comment on above: INR Therapeutic Rang e [...] on 03-25-2024 IR guided lumbar puncture LP [facility] [place] [address] Interventional Radiology Rpt Signed Patient: Bhumika Umana JR MR#: [id number] : 1975 Acct:[id number] Age/Sex: 48 / M ADM Date: 03/23/24 Loc: Room: [address] [place] [address] Type: ADM IN Attending Dr: Simon oWlfe MD Copies to: DO Simon Aguirre MD Ordering Provider: Danial Horan DO Date of Service: 03/25/24 IR/IR guided lumbar puncture LP: CONCERN FOR DEMYELINATING SYNDROME FLUOROSCOPICALLY GUIDED LUMBAR PUNCTURE CLINICAL HISTORY: Upper extremity weakness. 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 Cumulative Air Kerma in mGy: 31.4 [...] Mert Ferreira M.D.03/25/2024 12:51 PM Dictation Location: [place] [address] Transcribed By: [facility] 03/25/24 1251 Dictated By: Mert Ferreira DO 03/25/24 1247 Signed By: 03/25/24 1251 Normal [facility] IgG [Mass/volume] in Cerebra l spinal fluidOrdered By: Danial Horan on 03-25-2024 IgG (CSF) [Mass/Vol] 6.0 mg/dL 0.0-10.3 [facility] IgG [Mass/volume] in Serum o r PlasmaOrdered By: Danial Horan on 03-25-2024 IgG [Mass/Vol] 868 mg/dL 603-1613 [facility] IgG synthesis rate [Mass/tonya e] in Serum and CSF by calculationOrdered By: Danial Horan on 03-25-2024 IgG synthesis rate Calc (S+CSF) [Mass/Time] 5.9 mg/day High -9.9 TO +3.3 [facility] Comment on above: Performed at: [address] [id number] Director: Gabriel Chan PhD, Phone: [phone] [facility] 03-25-2024 L Specimen: [id number] Re ceived: 03/25/24 Status: SOUVivek Req Num: [id number] Spec Type: Cytology Subm Dr: Mert Ferreira DO Tissues: A CSF (CSF) Procedures: Cyto Prepstain, DIFF QWIK, PAPSTN Age/ Patient Sex Location Account Attending Physician Bhumika Umana 48/M [id number] Simon Wolfe MD SPEC NUM: [id number] RECD: 03/25/24 STATUS: MEDINA CHRISTINE NUM: [id number] SOL: 03/25/24- DR: Mert Ferreira DO ENTERED: 03/25/[address] [facility] [address]: Danial Horan DO SPEC TYPE: Cytology DEPT: CNG ENTERED BY: [id number] RECV BY: [id number] ORDERED: Cyto Prepstain, DIFF QWIK, PAPSTN ORDERED: Cyto Prepstain, DIFF QWIK, PAPSTN Pathological Diagnosis Cerebrospinal fluid: Negative for malignant cells. Clinical Information Bilateral hand weakness Gross Description Received is .5 ml pale pink hazy unfixed fluid for cytology said to have been obtained as spinal fluid. Cytospin slides are stained with Papanicolaou and Diff-Quik stains.([place]/mn) CPT Codes 85553 -------- -------- Specimen: [id number] Received: 03/25/24 Status: MEDINA Christine Num: [id number] Spec Type: Cytology Subm Dr: Mert Ferreira DO Tissues: A CSF (CSF) Procedures: Cyto Prepstain, DIFF QWIK, PAPSTN -------- Patient: Bhumika Umana JR [id number] (Continued) -------- Signed (signature on file) Jyoti Gary MD 03/26/24 1447 Normal [facility] MR cervical spine wo/w conon 03-25-2024 MR cervical spine wo/w con [facility] [place] [address] MRI Report Signed Patient: Bhumika Umana JR MR#: [id number] : 1975 Acct:[id number] Age/Sex: 48 / M ADM Date: 03/23/24 Loc: Room: [address] [place] [address] Type: ADM IN Attending Dr: Simon Wolfe [...] Pal Oconnor M.D.03/25/2024 12:45 PM Dictation Location: [place] [address] Transcribed By: [facility] 03/25/24 1245 Dictated By: Pal Oconnor II, MD 03/25/24 1237 Signed By: 03/25/24 1245 Normal [facility] Meningitis+Encephalitis path ogens DNA and RNA panel - Cerebral spinal fluid by BLAYNE wiOrdered By: Danial Horan on 03-25-2024 Meningitis+Encephaliti s pathogens DNA and RNA panel BLAYNE+non-probe (CSF) [facility] No Panel InformationOrdered By: Danial Horan on 03-25-2024 CSF Myelin Basic Protein 2.7 ng/mL 0.0-4.7 [facility] Comment on above: Results of this test are labeled for research purposes onlyby the assay's name plate stamper. The performancecharacteristics of this assay have not been established bythe name plate stamper. The result should not be used fortreatment or for diagnostic purposes without confirmationof the diagnosis by another medically establisheddiagnostic product or procedure. The performancecharacteristics were determined by [employer].Performed at: [facility] [address] [id number] Director: Mariano Jaen MD, Phone: [phone] CSF Tube Number Tube number: 3 [facility] Partial Thromboplastin Timeo n 03-25-2024 aPTT Coag (Bld) [Time] 30.2 s Normal 25.1-36.5 [facility] Comment on above: Result Comment: A he matocrit value greater than 55% may lead to inaccurate results in coagulation testing. Patients having hematocrit values >55% require a special collection tube for coagulation studies. Please contact the laboratory at [phone] for redraw instructions. PERFORMED BY: [facility] [address] [place] [address] PATHOLOGIST RELIEF CHARGE NURSE MARLYN MCKEON M.D. Performed By: #### G LULS #### Point of Care testing , Protein [Mass/volume] in Cer ebral spinal fluidOrdered By: Danial Horan on 03-25-2024 Protein (CSF) [Mass/Vol] 84 mg/dL High 15-45 [facility] Protein fractions.oligoclona l bands.intrathecal [Presence] in Serum and CSFOrdered By: Danial Horan on 03-25-2024 Protein fractions.oligoclonal bands.intrathecal Ql (S+CSF) Comment . [facility] Comment on above: Zero (0) oligoclonal bands were observed in the CSF.Interpretation: Criteria for Positivity: Four (4) or more oligoclonalbands observed only in the CSF have been shown to be mostconsistent with MS using our method. [Camila , Shayy Werner BG, and Desean JA: Cerebrospinal FluidOligoclonal Bands in [...] using IsoelectricFocusing (IEF) and immunoblotting methodology.Performed at: [facility] [id number] Director: Gabriel Chan PhD, Phone: [phone] Prothrombin time (PT)Ordered By: Danial Horan on 03-25-2024 PT Coag (PPP) [Time] 11.1 s Normal 9.0-12.9 [facility] Comment on above: A hematocrit value g reater than 55% may lead to inaccurate results in coagulation testing. Patients having hematocrit values >55% require a special collection tube for coagulation studies. Please contact the laboratory at [phone] for redraw instructions. Result Comment: A he matocrit value greater than 55% may lead to inaccurate results in coagulation testing. Patients having hematocrit values >55% require a special collection tube for coagulation studies. Please contact the laboratory at [phone] for redraw instructions. Performed By: #### G LULS #### Point of Care testing , Total Protein, CSF #2on 02-26 Total Protein, CSF #2 84 mg/dL High 15-45 [facility] Comment on above: Order Comment: Comme nt Tube 3 Result Comment: PERF ORMED BY: [facility] [address] [place] [address] PATHOLOGIST RELIEF CHARGE NURSE MARLYN MCKEON M.D. Performed By: #### C BC, MG, PHOS, CMP #### [facility] [address] [place] [address] [place] Total Protein, Spinal Fluido n 03-25-2024 Total Protein, Spinal Fluid 116 mg/dL High 15-45 [facility] Comment on above: Order Comment: Comme nt Tube 1 Result Comment: PERF ORMED BY: [place] [address] PATHOLOGIST RELIEF CHARGE NURSE MARLYN MCKEON M.D. Performed By: #### C BC, MG, PHOS, CMP #### [address] Alanine aminotransferase [En zymatic activity/volume] in Serum or PlasmaOrdered By: Elder Iyer on 03-24-2024 ALT [Catalytic activity/Vol] 24 U/L Normal 7-52 [facility] Comment on above: Performed By: #### C BC, MG, PHOS, CMP #### [address] Albumin [Mass/volume] in Ser um or Plasma by Bromocresol green (BCG) dye binding methoOrdered By: Elder Iyer on 03-24-2024 Albumin BCG dye [Mass/Vol] 4.1 g/dL 3.5-5.7 [facility] Alkaline phosphatase [Enzyma tic activity/volume] in Serum or PlasmaOrdered By: Elder Iyer on 03-24-2024 ALP [Catalytic activity/Vol] 59 U/L Normal 34-104 [facility] Comment on above: Performed By: #### C BC, MG, PHOS, CMP #### [facility] [address] [place] [address] Aspartate aminotransferase [ Enzymatic activity/volume] in Serum or PlasmaOrdered By: Elder Iyer on 03-24-2024 AST [Catalytic activity/Vol] 14 U/L Normal 13-39 [facility] Comment on above: Performed By: #### C BC, MG, PHOS, CMP #### [place] [address] [place] Automated basophil %Ordered By: Elder Iyer on 03-24-2024 Basophils/100 WBC (Bld) 0.5 % Normal . [facility] Comment on above: Performed By: #### C BC, MG, PHOS, CMP #### [address] Automated basophil countOrde red By: Elder Iyer on 03-24-2024 Basophils (Bld) [#/Vol] 0.1 10*3/uL Normal 0.0-0.2 [facility] Comment on above: Result Comment: PERF ORMED BY: [place] [address] PATHOLOGIST RELIEF CHARGE NURSE MARLYN MCKEON M.D. Performed By: #### C BC, MG, PHOS, CMP #### [address] Automated blood monocyte cou ntOrdered By: Elder Iyer on 03-24-2024 Monocytes (Bld) [#/Vol] 1.5 10*3/uL High 0.0-0.8 [facility] Comment on above: Performed By: #### C BC, MG, PHOS, CMP #### [address] Automated eosinophil %Ordere d By: Elder Iyer on 03-24-2024 Eosinophils/100 WBC (Bld) 0.6 % Normal . [facility] Comment on above: Performed By: #### C BC, MG, PHOS, CMP #### [address] Automated eosinophil countOr dered By: Elder Iyer on 03-24-2024 Eosinophils (Bld) [#/Vol] 0.1 10*3/uL Normal 0.0-0.45 [facility] Comment on above: Performed By: #### C BC, MG, PHOS, CMP #### [address] Automated monocyte %Ordered By: Elder Iyer on 03-24-2024 Monocytes/100 WBC (Bld) 8.3 % Normal . [facility] Comment on above: Performed By: #### C BC, MG, PHOS, CMP #### [facility] [address] [place] [address] Automated neutrophil %Ordere d By: Elder Iyer on 03-24-2024 Neutrophils/100 WBC (Bld) 57.7 % Normal . [facility] Comment on above: Performed By: #### C BC, MG, PHOS, CMP #### [address] Bilirubin.total [Mass/volume ] in Serum or PlasmaOrdered By: Elder Iyer on 03-24-2024 Bilirubin [Mass/Vol] 0.8 mg/dL Normal 0.3-1.0 [facility] Comment on above: Performed By: #### C BC, MG, PHOS, CMP #### [address] Calcium [Mass/volume] in Ser um or PlasmaOrdered By: Elder Iyer on 03-24-2024 Calcium [Mass/Vol] 8.8 mg/dL Normal 8.6-10.3 [facility] Comment on above: Performed By: #### C BC, MG, PHOS, CMP #### [address] Carbon dioxide, total [Moles /volume] in Serum or PlasmaOrdered By: Elder Iyer on 03-24-2024 CO2 [Moles/Vol] 28.6 mmol/L Normal 21.0-31.0 [facility] Comment on above: Performed By: #### C BC, MG, PHOS, CMP #### [facility] [address] [place] [address] [place] Chloride [Moles/volume] in S vandana or PlasmaOrdered By: Elder Iyer on 03-24-2024 Chloride [Moles/Vol] 101 mmol/L Normal 98-107 [facility] Comment on above: Performed By: #### C BC, MG, PHOS, CMP #### [address] Complete Blood Count Auto Di ffon 03-24-2024 Mean Corpuscular HGB Conc 33.3 g/dL Normal 32.5-35.6 [facility] Comment on above: Performed By: #### C BC, MG, PHOS, CMP #### [address] NRBC% 0.2 /100{WBC} Normal 0-0.5 [facility] Comment on above: Performed By: #### C BC, MG, PHOS, CMP #### [address] Comprehensive Metabolic Pane rayshawn 03-24-2024 Albumin [Mass/Vol] 4.1 g/dL Normal 3.5-5.7 [facility] Comment on above: Performed By: #### C BC, MG, PHOS, CMP #### [address] Creatinine Clr Calc Pharmacy 164.23 Normal [facility] Comment on above: Performed By: #### C BC, MG, PHOS, CMP #### [address] GFR/1.73 sq M.predicted MDRD (S/P/Bld) [Vol rate/Area] mL/min/{1.73_m2} Normal [facility] Comment on above: Performed By: #### C BC, MG, PHOS, CMP #### [address] Creatinine [Mass/volume] in Serum or PlasmaOrdered By: Elder Iyer on 03-24-2024 Creatinine [Mass/Vol] 0.88 mg/dL Normal 0.70-1.30 [facility] Comment on above: Performed By: #### C BC, MG, PHOS, CMP #### [address] Erythrocyte distribution wid th [Ratio] by Automated countOrdered By: Elder Iyer on 03-24-2024 Erythrocyte distribution width (RBC) [Ratio] 13.8 % Normal 12.0-14.8 [facility] Comment on above: Performed By: #### C BC, MG, PHOS, CMP #### [facility] [address] [place] [address] Erythrocytes [#/volume] in B lood by Automated countOrdered By: Elder Iyer on 03-24-2024 RBC (Bld) [#/Vol] 5.07 10*6/uL Normal 3.90-5.60 [facility] Comment on above: Performed By: #### C BC, MG, PHOS, CMP #### [facility] [address] Glucose Poct Glucometerson 0 03-24-2024 Glucose [Mass/Vol] 162 mg/dL Normal [facility] Comment on above: Result Comment: [place] om Glucose Reference Range is dependent on time and content of last meal. Glucose of more than 200 mg/dL in a nonstressed, ambulatory subject supports the diagnosis of Diabetes Mellitus. PERFORMED BY: [place] [address] PATHOLOGIST RELIEF CHARGE NURSE MARLYN MCKEON M.D. Performed By: #### C BC, MG, PHOS, CMP #### [facility] [address] [place] [address] Commemt1 Glu2: Cleaned Meter Normal [facility] Comment on above: Result Comment: PERF ORMED BY: [place] [address] PATHOLOGIST RELIEF CHARGE NURSE MARLYN MCKEON M.D. Performed By: #### G LULS #### Point of Care testing , Glucose [Mass/Vol] 114 mg/dL Normal [facility] Comment on above: Result Comment: [place] [facility] Glucose Reference Range is dependent on time and content of last meal. Glucose of more than 200 mg/dL in a nonstressed, ambulatory subject supports the diagnosis of Diabetes Mellitus. Performed By: #### G LULS #### Point of Care testing , Commemt1 Glu2: Cleaned Meter Normal [facility] Comment on above: Result Comment: PERF ORMED BY: [address] [place] [address] PATHOLOGIST RELIEF CHARGE NURSE MARLYN MCKEON M.D. Performed By: #### B MP, MG, CBC #### [address] Glucose [Mass/Vol] 126 mg/dL Normal [facility] Comment on above: Result Comment: [place] [facility] Glucose Reference Range is dependent on time and content of last meal. Glucose of more than 200 mg/dL in a nonstressed, ambulatory subject supports the diagnosis of Diabetes Mellitus. Performed By: #### B MP, MG, CBC #### [address] Glucose [Mass/Vol] 128 mg/dL Normal [facility] Comment on above: Result Comment: [place] [facility] Glucose Reference Range is dependent on time and content of last meal. Glucose of more than 200 mg/dL in a nonstressed, ambulatory subject supports the diagnosis of Diabetes Mellitus. PERFORMED BY: [place] [address] PATHOLOGIST RELIEF CHARGE NURSE MARLYN MCKEON M.D. Performed By: #### G LULS #### Point of Care testing , Glucose [Mass/Vol] 125 mg/dL Normal [facility] Comment on above: Result Comment: [place] [facility] Glucose Reference Range is dependent on time and content of last meal. Glucose of more than 200 mg/dL in a nonstressed, ambulatory subject supports the diagnosis of Diabetes Mellitus. PERFORMED BY: [place] [address] PATHOLOGIST RELIEF CHARGE NURSE MARLYN MCKEON M.D. Performed By: #### G LULS #### Point of Care testing , Glucose [Mass/volume] in Ser um or PlasmaOrdered By: Elder Iyer on 03-24-2024 Glucose [Mass/Vol] 136 mg/dL Significant change up 70-100 [facility] Comment on above: Delta: 241 on -06ADA recommended reference rangeRandom Glucose Reference Range is dependent on time and content of last meal. Glucose of more than 200 mg/dL in a nonstressed, ambulatory subject supports the diagnosis of Diabetes Mellitus. Result Comment: [facility] Glucose Reference Range is dependent on time and content of last meal. Glucose of more than 200 mg/dL in a nonstressed, ambulatory subject supports the diagnosis of Diabetes Mellitus. ADA recommended reference range Performed By: #### C BC, MG, PHOS, CMP #### [facility] [address] [place] [address] Hematocrit [Volume Fraction] of Blood by Automated countOrdered By: Elder Iyer on 03-24-2024 Hematocrit (Bld) [Volume fraction] 44.7 % Normal 38.8-50.0 [facility] Comment on above: Performed By: #### C BC, MG, PHOS, CMP #### [address] Hemoglobin [Mass/volume] in BloodOrdered By: Elder Iyer on 03-24-2024 Hemoglobin (Bld) [Mass/Vol] 14.9 g/dL Normal 13.0-17.0 [facility] Comment on above: Performed By: #### C BC, MG, PHOS, CMP #### [address] Leukocytes [#/volume] correc elizabeth for nucleated erythrocytes in Blood by Automated counOrdered By: Elder Iyer on 03-24-2024 WBC corrected for nucl RBC Auto (Bld) [#/Vol] 18.2 10*3/uL High 4.1-10.5 [facility] Leukocytes [#/volume] in Blo od by Automated countOrdered By: Elder Iyer on 03-24-2024 WBC (Bld) [#/Vol] 18.2 10*3/uL High 4.1-10.5 [facility] Comment on above: Performed By: #### C BC, MG, PHOS, CMP #### [address] Lymphocytes [#/volume] in Bl ood by Automated countOrdered By: Elder Iyer on 03-24-2024 Lymphocytes (Bld) [#/Vol] 6.0 10*3/uL High 1.00-4.8 [facility] Comment on above: Performed By: #### C BC, MG, PHOS, CMP #### [facility] [address] [place] [address] Lymphocytes/100 leukocytes i n Blood by Automated countOrdered By: Elder Iyer on 03-24-2024 Lymphocytes/100 WBC (Bld) 32.9 % Normal . [facility] Comment on above: Performed By: #### C BC, MG, PHOS, CMP #### [address] MCH [Entitic mass] by Automa elizabeth countOrdered By: Elder Iyer on 03-24-2024 MCH (RBC) [Entitic mass] 29.3 pg Normal 27.5-35.2 [facility] Comment on above: Performed By: #### C BC, MG, PHOS, CMP #### [address] MCHC Auto (RBC) [Mass/Vol]Or dered By: Elder Iyer on 03-24-2024 MCHC (RBC) [Mass/Vol] 33.3 g/dL 32.5-35.6 [facility] MCV [Entitic volume] by Auto mated countOrdered By: Elder Iyer on 03-24-2024 MCV (RBC) [Entitic vol] 88.2 fL Normal 83.5-101 [facility] Comment on above: Performed By: #### C BC, MG, PHOS, CMP #### [address] Magnesium [Mass/volume] in S vandana or PlasmaOrdered By: Elder Iyer on 03-24-2024 Magnesium [Mass/Vol] 2.1 mg/dL Normal 1.9-2.7 [facility] Comment on above: Result Comment: PERF ORMED BY: [place] [address] PATHOLOGIST RELIEF CHARGE NURSE MARLYN MCKEON M.D. Performed By: #### C BC, MG, PHOS, CMP #### [address] [place] [address] [place] Neutrophils [#/volume] in Bl ood by Automated countOrdered By: Elder Iyer on 03-24-2024 Neutrophils (Bld) [#/Vol] 10.5 10*3/uL High 1.8-7.7 [facility] Comment on above: Performed By: #### C BC, MG, PHOS, CMP #### [facility] [address] [place] [address] No Panel InformationOrdered By: Elder Iyer on 03-24-2024 Bedside Glucose Comment Glu2: cleaned meter [facility] Estimated GFR (CKD-EPI) > 60.0 mL/Min [facility] Creatinine Clearance (Chem 164.23 [facility] Nucleated erythrocytes [Pres ence] in Blood by Automated countOrdered By: Elder Iyer on 03-24-2024 Nucleated RBC Auto Ql (Bld) 0.2 /100{WBC} 0-0.5 [facility] Phosphate [Mass/volume] in S vandana or PlasmaOrdered By: Elder Iyer on 03-24-2024 Phosphate [Mass/Vol] 4.2 mg/dL Normal 2.5-4.5 [facility] Comment on above: Performed By: #### C BC, MG, PHOS, CMP #### [facility] [address] [place] [address] Platelet mean volume [Entiti c volume] in Blood by Automated countOrdered By: Elder Iyer on 03-24-2024 Platelet mean volume (Bld) [Entitic vol] 7.6 fL Normal 6.6-10.1 [facility] Comment on above: Performed By: #### C BC, MG, PHOS, CMP #### [facility] [address] [place] [address] Platelets [#/volume] in Bloo d by Automated countOrdered By: Elder Iyer on 03-24-2024 Platelets (Bld) [#/Vol] 364 10*3/uL Normal 150-450 [facility] Comment on above: Performed By: #### C BC, MG, PHOS, CMP #### [facility] [address] [place] [address] Potassium [Moles/volume] in Serum or PlasmaOrdered By: Elder Iyer on 03-24-2024 Potassium [Moles/Vol] 3.9 mmol/L Normal 3.5-5.1 [facility] Comment on above: Performed By: #### C BC, MG, PHOS, CMP #### [facility] [address] [place] [address] Protein [Mass/volume] in Ser um or PlasmaOrdered By: Elder Iyer on 03-24-2024 Protein [Mass/Vol] 6.5 g/dL Normal 6.4-8.9 [facility] Comment on above: Performed By: #### C BC, MG, PHOS, CMP #### [address] Serum globulin measurement b y calculation (mass/volume)Ordered By: Elder Iyer on 03-24-2024 Globulin (S) [Mass/Vol] 2.4 g/dL [facility] Comment on above: Performed By: #### C BC, MG, PHOS, CMP #### [facility] [address] [place] [address] Serum or plasma albumin/glob ulin mass ratioOrdered By: Elder Iyer on 03-24-2024 Albumin/Globulin [Mass ratio] 1.7 {ratio} [facility] Comment on above: Performed By: #### C BC, MG, PHOS, CMP #### [facility] [address] [place] [address] Serum or plasma anion gap de terminationOrdered By: Elder Iyer on 03-24-2024 Anion gap [Moles/Vol] 12.3 mmol/L Normal 6.0-15.0 [facility] Comment on above: Performed By: #### C BC, MG, PHOS, CMP #### [facility] [address] [place] [address] [place] Sodium [Moles/volume] in Ser um or PlasmaOrdered By: Elder Iyer on 03-24-2024 Sodium [Moles/Vol] 138 mmol/L Significant change down 136-145 [facility] Comment on above: Delta: 132 on Performed By: #### C BC, MG, PHOS, CMP #### [facility] [address] Urea nitrogen [Mass/volume] in Serum or PlasmaOrdered By: Elder Iyer on 03-24-2024 Urea nitrogen [Mass/Vol] 25 mg/dL Normal 7-25 [facility] Comment on above: Performed By: #### C BC, MG, PHOS, CMP #### [facility] [address] A1C with Estimated Average Magdalena iveycally 03-23-2024 Glucose [Mass/Vol] 166 mg/dL Normal [facility] Comment on above: Result Comment: PERF ORMED BY: [place] [address] PATHOLOGIST RELIEF CHARGE NURSE MARLYN MCKEON M.D. Performed By: #### G LULS #### Point of Care testing , BNP ser/plasOrdered By: Veronika Gonzales on 03-23-2024 Natriuretic peptide B (Bld) [Mass/Vol] 27.0 pg/mL Normal 5-100 [facility] Comment on above: Result Comment: PERF ORMED BY: [place] [address] PATHOLOGIST RELIEF CHARGE NURSE MARLYN MCKEON M.D. Performed By: #### C BC, MG, PHOS, CMP #### [facility] [address] [place] [address] Basic Metabolic Panelon 02-26 Anion gap [Moles/Vol] 16.0 mmol/L High 6.0-15.0 [facility] Comment on above: Performed By: #### G LULS #### Point of Care testing , Calcium [Mass/Vol] 9.2 mg/dL Normal 8.6-10.3 [facility] Comment on above: Performed By: #### G LULS #### Point of Care testing , Chloride [Moles/Vol] 97 mmol/L Low 98-107 [facility] Comment on above: Performed By: #### G LULS #### Point of Care testing , CO2 [Moles/Vol] 23.4 mmol/L Normal 21.0-31.0 [facility] Comment on above: Performed By: #### G LULS #### Point of Care testing , Creatinine [Mass/Vol] 0.75 mg/dL Normal 0.70-1.30 [facility] Comment on above: Performed By: #### G LULS #### Point of Care testing , Creatinine Clr Calc Pharmacy 195.42 Normal [facility] Comment on above: Performed By: #### G LULS #### Point of Care testing , GFR/1.73 sq M.predicted MDRD (S/P/Bld) [Vol rate/Area] mL/min/{1.73_m2} Normal [facility] Comment on above: Performed By: #### G ALICIALS #### Point of Care testing , Glucose [Mass/Vol] 241 mg/dL Significant change up 70-100 [facility] Comment on above: Result Comment: [facility] Glucose Reference Range is dependent on time and content of last meal. Glucose of more than 200 mg/dL in a nonstressed, ambulatory subject supports the diagnosis of Diabetes Mellitus. ADA recommended reference range Performed By: #### G LULS #### Point of Care testing , Potassium [Moles/Vol] 4.4 mmol/L Normal 3.5-5.1 [facility] Comment on above: Performed By: #### G LULS #### Point of Care testing , Sodium [Moles/Vol] 132 mmol/L Low 136-145 [facility] Comment on above: Performed By: #### G LULS #### Point of Care testing , Urea nitrogen [Mass/Vol] 22 mg/dL Normal 7-25 [facility] Comment on above: Performed By: #### G LULS #### Point of Care testing , Anion gap [Moles/Vol] 17.4 mmol/L High 6.0-15.0 [facility] Comment on above: Performed By: #### C BC, MG, PHOS, CMP #### [address] Calcium [Mass/Vol] 9.4 mg/dL Normal 8.6-10.3 [facility] Comment on above: Performed By: #### C BC, MG, PHOS, CMP #### [address] Chloride [Moles/Vol] 97 mmol/L Low 98-107 [facility] Comment on above: Performed By: #### C BC, MG, PHOS, CMP #### [address] CO2 [Moles/Vol] 23.2 mmol/L Normal 21.0-31.0 [facility] Comment on above: Performed By: #### C BC, MG, PHOS, CMP #### [address] Creatinine [Mass/Vol] 0.82 mg/dL Normal 0.70-1.30 [facility] Comment on above: Performed By: #### C BC, MG, PHOS, CMP #### [place] [address] [place] Creatinine Clr Calc Pharmacy 178.94 Normal [facility] Comment on above: Result Comment: PERF ORMED BY: [place] [address] PATHOLOGIST RELIEF CHARGE NURSE MARLYN MCKEON M.D. Performed By: #### C BC, MG, PHOS, CMP #### [place] [address] [place] GFR/1.73 sq M.predicted MDRD (S/P/Bld) [Vol rate/Area] mL/min/{1.73_m2} Normal [facility] Comment on above: Performed By: #### C BC, MG, PHOS, CMP #### [address] Glucose [Mass/Vol] 342 mg/dL High 70-100 [facility] Comment on above: Result Comment: [place] Glucose Reference Range is dependent on time and content of last meal. Glucose of more than 200 mg/dL in a nonstressed, ambulatory subject supports the diagnosis of Diabetes Mellitus. ADA recommended reference range Performed By: #### C BC, MG, PHOS, CMP #### [facility] [address] Potassium [Moles/Vol] 4.6 mmol/L Normal 3.5-5.1 [facility] Comment on above: Performed By: #### C BC, MG, PHOS, CMP #### [facility] [address] Sodium [Moles/Vol] 133 mmol/L Low 136-145 [facility] Comment on above: Performed By: #### C BC, MG, PHOS, CMP #### [facility] [address] Urea nitrogen [Mass/Vol] 23 mg/dL Normal 7-25 [facility] Comment on above: Performed By: #### C BC, MG, PHOS, CMP #### [facility] [address] Borrelia burgdorferi IgG+IgM Ab [Presence] in Serum by ImmunoassayOrdered By: Danial Horan on 03-23-2024 B. burgdorferi IgG+IgM IA Ql (S) Negative Negative [facility] Comment on above: Lyme antibodies not detected. Reflex testing is notindicated.No laboratory evidence of infection with B. burgdorferi(Lyme disease). Negative results may occur in patientsrecently infected (less than or equal to 14 days) with B.burgdorferi. If recent infection is suspected, repeattesting on a new sample collected in 7 to 14 days isrecommended.Performed at: - Lab[address] [id number] Director: Gabriel Chan PhD, Phone: [phone] C reactive protein [Mass/vol ume] in Serum or PlasmaOrdered By: Danial Horan on 03-23-2024 CRP [Mass/Vol] < 0.5 mg/dL 0.0-0.5 [facility] C-Reactive Proteinon 024 CRP [Mass/Vol] mg/L Normal 0.0-0.5 [facility] Comment on above: Result Comment: PERF ORMED BY: [place] [address] PATHOLOGIST RELIEF CHARGE NURSE MARLYN MCKEON M.D. Performed By: #### G LULS #### Point of Care testing , Complete Blood Count Auto Di ffon 03-23-2024 Basophils (Bld) [#/Vol] 0.1 10*3/uL Normal 0.0-0.2 [facility] Comment on above: Result Comment: PERF ORMED BY: [place] [address] PATHOLOGIST RELIEF CHARGE NURSE MARLYN MCKEON M.D. Performed By: #### C BC, MG, PHOS, CMP #### [facility] [address] [place] [address] Basophils/100 WBC (Bld) 0.5 % Normal . [facility] Comment on above: Performed By: #### C BC, MG, PHOS, CMP #### [facility] [address] [place] [address] [place] Eosinophils (Bld) [#/Vol] 0.0 10*3/uL Normal 0.0-0.45 [facility] Comment on above: Performed By: #### C BC, MG, PHOS, CMP #### [facility] [address] [place] [address] [place] Eosinophils/100 WBC (Bld) 0.0 % Normal . [facility] Comment on above: Performed By: #### C BC, MG, PHOS, CMP #### [facility] [address] [place] [address] Erythrocyte distribution width (RBC) [Ratio] 13.9 % Normal 12.0-14.8 [facility] Comment on above: Performed By: #### C BC, MG, PHOS, CMP #### [facility] [address] [place] [address] Hematocrit (Bld) [Volume fraction] 47.0 % Normal 38.8-50.0 [facility] Comment on above: Performed By: #### C BC, MG, PHOS, CMP #### [address] Hemoglobin (Bld) [Mass/Vol] 15.9 g/dL Normal 13.0-17.0 [facility] Comment on above: Performed By: #### C BC, MG, PHOS, CMP #### [address] Lymphocytes (Bld) [#/Vol] 1.4 10*3/uL Normal 1.00-4.8 [facility] Comment on above: Performed By: #### C BC, MG, PHOS, CMP #### [address] Lymphocytes/100 WBC (Bld) 8.2 % Normal . [facility] Comment on above: Performed By: #### C BC, MG, PHOS, CMP #### [address] MCH (RBC) [Entitic mass] 29.8 pg Normal 27.5-35.2 [facility] Comment on above: Performed By: #### C BC, MG, PHOS, CMP #### [address] MCV (RBC) [Entitic vol] 88.1 fL Normal 83.5-101 [facility] Comment on above: Performed By: #### C BC, MG, PHOS, CMP #### [address] Mean Corpuscular HGB Conc 33.8 g/dL Normal 32.5-35.6 [facility] Comment on above: Performed By: #### C BC, MG, PHOS, CMP #### [address] Monocyte Distribution Width Not performed Normal 0.00-20.00 [facility] Comment on above: Result Comment: Unab le to calculate MDW because the Absolute Monocyte Count is <0.8. Performed By: #### C BC, MG, PHOS, CMP #### [address] Monocytes (Bld) [#/Vol] 0.2 10*3/uL Normal 0.0-0.8 [facility] Comment on above: Performed By: #### C BC, MG, PHOS, CMP #### [address] Monocytes/100 WBC (Bld) 1.0 % Normal . [facility] Comment on above: Performed By: #### C BC, MG, PHOS, CMP #### [address] Neutrophils (Bld) [#/Vol] 15.5 10*3/uL High 1.8-7.7 [facility] Comment on above: Performed By: #### C BC, MG, PHOS, CMP #### [address] Neutrophils/100 WBC (Bld) 90.3 % Normal . [facility] Comment on above: Performed By: #### C BC, MG, PHOS, CMP #### [address] NRBC% 0.1 /100{WBC} Normal 0-0.5 [facility] Comment on above: Performed By: #### C BC, MG, PHOS, CMP #### [address] Platelet mean volume (Bld) [Entitic vol] 7.4 fL Normal 6.6-10.1 [facility] Comment on above: Performed By: #### C BC, MG, PHOS, CMP #### [place] [address] [place] Platelets (Bld) [#/Vol] 381 10*3/uL Normal 150-450 [facility] Comment on above: Performed By: #### C BC, MG, PHOS, CMP #### [place] [address] [place] RBC (Bld) [#/Vol] 5.33 10*6/uL Normal 3.90-5.60 [facility] Comment on above: Performed By: #### C BC, MG, PHOS, CMP #### [address] WBC (Bld) [#/Vol] 17.1 10*3/uL High 4.1-10.5 [facility] Comment on above: Performed By: #### C BC, MG, PHOS, CMP #### [address] Creatine Kinaseon 03-23-2024 CK [Catalytic activity/Vol] 37 U/L Normal 30-223 [facility] Comment on above: Performed By: #### C BC, MG, PHOS, CMP #### [address] Creatine kinase [Enzymatic a ctivity/volume] in Serum or PlasmaOrdered By: Danial Horan on 03-23-2024 CK [Catalytic activity/Vol] 34 U/L Normal 30-223 [facility] Comment on above: Result Comment: PERF ORMED BY: [place] [address] PATHOLOGIST RELIEF CHARGE NURSE MARLYN MCKEON M.D. Performed By: #### G MARGARITA #### Point of Care testing , ECG 12 lead ECGon 03-23-2024 ECG 12 lead ECG [facility] [place] [address] [place] [address] Electrocardiograph Report Signed Patient: Bhumika Umana JR MR#: [id number] : 1975 Acct:[id number] Age/Sex: 48 / M ADM Date: 03/23/24 Loc: ER Room: Type: [facility] ER Attending Dr: Ordering Provider: Gale Gonzales [...] ECGs available Confirmed by Gale Gonzales MD ([id number]) on 03/23/2024 2:06:14 AM Referred By: Electronically Signed By: Gale Gonzales MD Transcribed By: MUS Signed By Gale Gonzales MD 02/26 03/20 0206 Normal [facility] Erythrocyte Sedimentation Ra devaughn 03-23-2024 ESR (Bld) [Velocity] 14 mm/h Normal 0-14 [facility] Comment on above: Result Comment: PERF ORMED BY: [address] [address] PATHOLOGIST RELIEF CHARGE NURSE MARLYN MCKEON M.D. Performed By: #### G LULS #### Point of Care testing , Erythrocyte sedimentation ra te by Photometric methodOrdered By: Danial Horan on 03-23-2024 ESR Photometric method (Bld) [Velocity] 14 mm/hr 0-14 [facility] Folate [Mass/volume] in Seru m or PlasmaOrdered By: Bola Garcia on 03-23-2024 Folate [Mass/Vol] 13.0 ng/mL >5.9 [facility] Comment on above: Folate reference ran ge: >5.9 ng/mlThe WHO technical consultation on folate and vitamin [id number] has determined that folate concentrations lessthan 4 ng/ml are considered deficient. Glucose Poct Glucometerson 0 03-23-2024 Commemt1 Glu2: Cleaned Meter Normal [facility] Comment on above: Result Comment: PERF ORMED BY: [place] [address] PATHOLOGIST RELIEF CHARGE NURSE MARLYN MCKEON M.D. Performed By: #### C BC, MG, PHOS, CMP #### [address] [address] Glucose [Mass/Vol] 166 mg/dL Normal [facility] Comment on above: Result Comment: [place] Glucose Reference Range is dependent on time and content of last meal. Glucose of more than 200 mg/dL in a nonstressed, ambulatory subject supports the diagnosis of Diabetes Mellitus. Performed By: #### C BC, MG, PHOS, CMP #### [facility] [address] [place] [address] Glucose [Mass/Vol] 133 mg/dL Normal [facility] Comment on above: Result Comment: [place] Glucose Reference Range is dependent on time and content of last meal. Glucose of more than 200 mg/dL in a nonstressed, ambulatory subject supports the diagnosis of Diabetes Mellitus. PERFORMED BY: [place] [address] PATHOLOGIST RELIEF CHARGE NURSE MARLYN MCKEON M.D. Performed By: #### G LULS #### Point of Care testing , Glucose [Mass/Vol] 180 mg/dL Normal [facility] Comment on above: Result Comment: [facility] Glucose Reference Range is dependent on time and content of last meal. Glucose of more than 200 mg/dL in a nonstressed, ambulatory subject supports the diagnosis of Diabetes Mellitus. PERFORMED BY: [place] [address] PATHOLOGIST RELIEF CHARGE NURSE MARLYN MCKEON M.D. Performed By: #### G LULS #### Point of Care testing , Glucose [Mass/Vol] 216 mg/dL Normal [facility] Comment on above: Result Comment: [facility] Glucose Reference Range is dependent on time and content of last meal. Glucose of more than 200 mg/dL in a nonstressed, ambulatory subject supports the diagnosis of Diabetes Mellitus. PERFORMED BY: [place] [address] PATHOLOGIST RELIEF CHARGE NURSE MARLYN MCKEON M.D. Performed By: #### G LULS #### Point of Care testing , Commemt1 Glu2: Cleaned Meter Normal [facility] Comment on above: Result Comment: PERF ORMED BY: [place] [address] PATHOLOGIST RELIEF CHARGE NURSE MARLYN MCKEON M.D. Performed By: #### C BC, MG, PHOS, CMP #### [address] Glucose [Mass/Vol] 362 mg/dL Normal [facility] Comment on above: Result Comment: [facility] Glucose Reference Range is dependent on time and content of last meal. Glucose of more than 200 mg/dL in a nonstressed, ambulatory subject supports the diagnosis of Diabetes Mellitus. Performed By: #### C BC, MG, PHOS, CMP #### [address] Glucose mean value [Mass/vol ume] in Blood Estimated from glycated hemoglobinOrdered By: Bola Garcia on 03-23-2024 Average glucose Estimated from glycated hemoglobin (Bld) [Mass/Vol] 166 mg/dL [facility] Hemoglobin A1c percentageOrd ered By: Bola Garcia on 03-23-2024 HbA1c (Bld) [Mass fraction] 7.4 % High 4.3-5.6 [facility] Comment on above: Increased risk for d iabetes: 5.7 - 6.4diabetes: >6.4glycemic control for adults with diabetes: <7.0 Result Comment: Incr eased risk for diabetes: 5.7 - 6.4 diabetes: >6.4 glycemic control for adults with diabetes: <7.0 Performed By: #### G LULS #### Point of Care testing , Lyme, Total Ab with Reflexon 03-23-2024 Lyme Total Antibody Negative Normal Negative [facility] Comment on above: Result [...] to 14 days is recommended. Performed at: [facility] Lab[address] [id number] Road Worker: Gabriel Chan PhD, Phone: [phone] PERFORMED BY: [facility] [address] [place] [address] PATHOLOGIST RELIEF CHARGE NURSE MARLYN MCKEON M.D. Performed By: #### G LULS #### Point of Care testing , MR head/brain wo/w conon MR head/brain wo/w con [facility] Main [place] [address] [place] [address] MRI Report Signed Patient: Bhumika Umana JR MR#: [id number] : 1975 Acct:[id number] Age/Sex: 48 / M ADM Date: 03/23/24 Loc: Room: [address] [place] [address] Type: ADM IN Attending Dr: Elder Iyer [...] Gonzales Jr., D.OKim03/23/2024 10:46 AM Dictation Location: [place] [address] Transcribed By: [facility] 03/23/24 1046 Dictated By: Rene Gonzales Jr, DO 03/23/24 1039 Signed By: 03/23/24 1046 Normal [facility] Monocyte distribution width [Entitic volume] in Blood by AutomatedOrdered By: Gale Gonzales on 03-23-2024 Monocyte distribution width Auto (Bld) [Entitic vol] Test not performed % 0.00-20.00 [facility] Comment on above: Unable to calculate MDW because the Absolute Monocyte Count is <0.8. Partial Thromboplastin Timeo n 03-23-2024 aPTT Coag (Bld) [Time] 22.2 s Low 25.1-36.5 [facility] Comment on above: Result Comment: A he matocrit value greater than 55% may lead to inaccurate results in coagulation testing. Patients having hematocrit values >55% require a special collection tube for coagulation studies. Please contact the laboratory at [phone] for redraw instructions. PERFORMED BY: [place] [address] PATHOLOGIST RELIEF CHARGE NURSE MARLYN MCKEON M.D. Performed By: #### C BC, MG, PHOS, CMP #### [address] Prothrombin Time INRon 03-23 INR Coag (PPP) [Relative time] 1.0 {INR} Normal [facility] Comment on above: Result [...] #### C BC, MG, PHOS, CMP #### [address] PT Coag (PPP) [Time] 11.7 s Normal 9.0-12.9 [facility] Comment on above: Result Comment: A he matocrit value greater than 55% may lead to inaccurate results in coagulation testing. Patients having hematocrit values >55% require a special collection tube for coagulation studies. Please contact the laboratory at [phone] for redraw instructions. Performed By: #### C BC, MG, PHOS, CMP #### [address] Thyrotropin [Units/volume] i n Serum or PlasmaOrdered By: Bola Garcia on 03-23-2024 TSH Qn 0.48 m[IU]/L Normal 0.45-5.33 [facility] Comment on above: Performed By: #### G LULS #### Point of Care testing , Troponin I High Sensitivityo n 03-23-2024 Troponin I High Sensitivity 3.3 pg/mL Normal 0.0-20.0 [facility] Comment on above: Result Comment: PERF ORMED BY: [facility] [address] [place] [address] PATHOLOGIST RELIEF CHARGE NURSE MARLYN MCKEON M.D. Performed By: #### C BC, MG, PHOS, CMP #### [address] Troponin I.cardiac [Mass/vol ume] in Serum or Plasma by Detection limit <= 0.01 ng/Ordered By: Gale Gonzales on 03-23-2024 Troponin I.cardiac DL <= 0.01 ng/mL [Mass/Vol] 3.3 pg/mL 0.0-20.0 [facility] Vit. B12/Folate Profileon Folate 13.0 ng/mL Normal >5.9 [facility] Comment on above: Result Comment: Sarah te reference range: >5.9 ng/ml The WHO technical consultation on folate and vitamin b12 deficiencies has determined that folate concentrations less than 4 ng/ml are considered deficient. Performed By: #### G LULS #### Point of Care testing , Vitamin B12 ser/plasOrdered By: Bola Garcia on 03-23-2024 Cobalamin (Vitamin B12) [Mass/Vol] 416 pg/mL Normal 180-914 [facility] Comment on above: Performed By: #### G LULS #### Point of Care testing , Vitamin D 25 Hydroxy Totalon 03-23-2024 Vitamin D 25 Hydroxy Total 21.6 ng/mL Low 30-100 [facility] Comment on above: Result Comment: KAYLEY MIN D STATUS 25(OH)VITAMIN D RANGE (ng/mL) Deficient <20 Insufficient 20 to <30 Sufficient 30 to 100 Reference: Kalee Anton, Brett SUAREZ, et al. Evaluation,treatment, and prevention of vitamin D deficiency; an Endocrine Society clinical practice guideline. JCEM. 2010; 96(7):1911-. PERFORMED BY: [place] [id number] PATHOLOGIST RELIEF CHARGE NURSE MARLYN MCKEON M.D. Performed By: #### G LUMONTRELL #### Point of Care testing , Vitamin D+Metabolites [Mass/ volume] in Serum or PlasmaOrdered By: Bola Garcia on 03-23-2024 Vitamin D+Metabolites [Mass/Vol] 21.6 ng/mL Low 30-100 [facility] Comment on above: VITAMIN D STATUS 25( OH)VITAMIN D RANGE (ng/mL) Deficient <20 Insufficient 20 to <30Sufficient 30 to 100Reference: Kalee Anton, Brett SUAREZ, et al. Evaluation,treatment, and prevention of vitamin D deficiency; an Endocrine Society clinical practice guideline. JCEM. 2010; 96(7):1911-30. XR chest 2V*on 03-23-2024 XR chest 2V* [facility] Main [address] [address] XRay Report Signed Patient: Bhuimka Umana JR MR#: [id number] : 1975 Acct:[id number] Age/Sex: 48 / M ADM Date: 03/23/24 Loc: Room: [address] [place] [address] Type: ADM IN Attending Dr: Elder Iyer MD Copies to: MD Elder Huddleston MD Ordering Provider: Gale Gonzales MD Date of Service: 03/23/24 XR/XR chest 2V*: Weakness Chest 2 views CLINICAL HISTORY: Weakness in hand since December. COMPARISON: None FINDINGS: Heart normal size. Lungs are clear. No free air. XR/XR chest 2V* IMPRESSION: NO ACUTE CARDIOPULMONARY ABNORMALITY. Impression dictated by: Rene Gonzales Jr., D.OKim03/23/2024 9:33 AM Dictation Location: [place] [address] Transcribed By: [facility] 03/23/[address] Dictated By: Rene Gonzales Jr, DO 03/23/249[address] Signed By: 03/23/249[address] Normal [facility] XR ELBOW RT MIN [...] JAKOB MCGHEE Date: 2022-04-23 12:40 Normal [facility] CBC AUTO DIFFon 01-11-2022 BASO # 0.0 103/ul Normal 0.0-0.[address] [facility] Comment on above: Performed By: #### C BC #### [facility] Laboratory [address] [place] [address] Dr. Sera Quach Basophils/100 WBC (Bld) 0.4 % Normal 0.2-2.[address] [facility] Comment on above: Performed By: #### C BC #### [facility] [address] [place] [address] Dr. Sera Quach EO # 0.3 103/ul Normal 0.0-0.[address] [facility] Comment on above: Performed By: #### C BC #### [facility] [address] [place] [address] Dr. Sera Quach Eosinophils/100 WBC (Bld) 2.8 % Normal 0.9-7.0 [facility] Comment on above: Performed By: #### C BC #### [facility] [address] [place] [address] Dr. Sera Quach Erythrocyte distribution width (RBC) [Ratio] 13.1 % Normal 11.0-15.[address] [facility] Comment on above: Performed By: #### C BC #### [facility] [address] [place] [address] Dr. Sera Quach Hematocrit (Bld) [Volume fraction] 47.3 % Normal 42.0-54.[address] [facility] Comment on above: Performed By: #### C BC #### [facility] [address] [place] [address] Dr. Sera Quach Hemoglobin (Bld) [Mass/Vol] 15.2 g/dL Normal 14.0-18.[address] [facility] Comment on above: Performed By: #### C BC #### [facility] [address] [place] [address] Dr. Sera Quach IG # 0.03 10e3/ul Normal 0.00-0.[address] [facility] Comment on above: Performed By: #### C BC #### [facility] [address] [place] [address] Dr. Sera Quach IG % 0.3 % Normal 0.0-0.[address] [facility] Comment on above: Performed By: #### C BC #### [facility] [address] [place] [address] Dr. Sera Quach LYMPH # 2.3 103/ul Normal 1.2-3.8 [facility] Comment on above: Performed By: #### C BC #### [facility] [address] [place] [address] Dr. Sera Quach Lymphocytes/100 WBC (Bld) 25.5 % Normal 20.5-60.[address] [facility] Comment on above: Performed By: #### C BC #### [facility] [address] [place] [address] Dr. Sera Quach MANUAL DIFF REQ NO Normal [facility] Comment on above: Performed By: #### C BC #### [facility] [address] [place] [address] Dr. Sera Quach MCH (RBC) [Entitic mass] 29.2 pg Normal 25.9-34.[address] [facility] Comment on above: Performed By: #### C BC #### [facility] [address] [place] [address] Dr. Sera Quach MCHC (RBC) [Mass/Vol] 32.1 g/dL Normal 29.9-35.[address] [facility] Comment on above: Performed By: #### C BC #### [facility] [address] [place] [address] Dr. Sera Quach MCV (RBC) [Entitic vol] 91.0 fL Normal 80.0-94.[address] [facility] Comment on above: Performed By: #### C BC #### [facility] [address] [place] [address] Dr. Sera Quach MONO # 0.7 103/ul Normal 0.3-0.[address] [facility] Comment on above: Performed By: #### C BC #### [facility] [address] [place] [address] Dr. Sera Quach Monocytes/100 WBC (Bld) 7.1 % Normal 1.7-12.[address] [facility] Comment on above: Performed By: #### C BC #### [facility] [address] [place] [address] Dr. Sera Quach NEUT # 5.9 103/ul Normal 1.4-6.[address] [facility] Comment on above: Performed By: #### C BC #### [facility] [address] [place] [address] Dr. Sera Quach Neutrophils/100 WBC (Bld) 63.9 % Normal 43.0-75.[address] [facility] Comment on above: Performed By: #### C BC #### [facility] [address] [place] [address] Dr. Sera Quach Platelet mean volume (Bld) [Entitic vol] 9.3 fL Critically low 9.5-13.[address] [facility] Comment on above: Performed By: #### C BC #### [facility] [address] [place] [address] Dr. Sera Quach PLT 316 103/ul Normal 150-450 [facility] Comment on above: Performed By: #### C BC #### [facility] [address] [place] [address] Dr. Sera Quach RBC 5.20 106/ul Normal 4.70-6.10 [facility] Comment on above: Performed By: #### C BC #### [facility] [address] [place] [address] [address] Sera Quach WBC 9.2 103/ul Normal 4.0-11.[address] [facility] Comment on above: Performed By: #### C BC #### [facility] [address] [place] [address] Dr. Sera Quach GLYCOHEMOGLOBIN A1Con 2021 ADA RECOMMENDATION SEE BELOW Normal [facility] Comment on above: Result Comment: ADA RECOMMENDED LIMIT 4.0 - 6.0 ADA THERAPEUTIC TARGET < 7.0 ACTION SUGGESTED > 7.0 Performed By: #### A 1C #### [facility] [address] [place] [address] Dr. Sera Quach Glucose [Mass/Vol] 209 mg/dL Normal [facility] Comment on above: Performed By: #### A 1C #### [facility] [address] [place] [address] Dr. Sera Quach HbA1c (Bld) [Mass fraction] 8.9 % Critically high 4.5-6.[address] [facility] Comment on above: Performed By: #### A 1C #### [facility] [address] [place] [address] Dr. Sera Quach LIPID PROFILEon 01-11-2022 CHOL-HDL RATIO NORM SEE BELOW Normal [facility] Comment on above: Result Comment: 3.3 - 4.4 LOW RISK 4.4 - 7.1 AVERAGE RISK 7.1 - 11.0 MODERATE RISK >11.0 HIGH RISK Performed By: #### C MP, LIPID #### [facility] [address] [place] [address] Dr. Sera Quach Cholesterol [Mass/Vol] 154 mg/dL Normal <=200 [facility] Comment on above: Performed By: #### C MP, LIPID #### [facility] [address] [place] [address] Dr. Sera Quach Cholesterol in HDL [Mass/Vol] 39 mg/dL Critically low 40-[address] [facility] Comment on above: Performed By: #### C MP, LIPID #### [facility] [address] [place] [address] [address] Sera Quach Cholesterol in LDL [Mass/Vol] 98.0 mg/dL Normal [facility] Comment on above: Performed By: #### C MP, LIPID #### [facility] [address] [place] [address] [address] Sera Quach Cholesterol.total/Chol esterol in HDL [Mass ratio] 3.9 {ratio} Normal [facility] Comment on above: Performed By: #### C MP, LIPID #### [facility] [address] [place] [address] [address] Sera Quach HDL NORMAL > or = 60 mg/dl - LO W CARDIOVASCULAR RISK <40 mg/dl - HIGH CARDIOVASCULAR RISK Normal [facility] Comment on above: Performed By: #### C MP, LIPID #### [facility] [address] [place] [address] Dr. Sera Quach LDL CALC NORMAL SEE BELOW Normal [facility] Comment on above: Result Comment: <100 mg/dl OPTIMAL 100 - 129 mg/dl NEAR OR ABOVE OPTIMAL 130 - 159 mg/dl BORDERLINE HIGH 160 - 189 mg/dl HIGH >190 mg/dl VERY HIGH Performed By: #### C MP, LIPID #### [facility] [address] [place] [address] Dr. Sera Quach Triglyceride [Mass/Vol] 85 mg/dL Normal <=[address] [facility] Comment on above: Performed By: #### C MP, LIPID #### [facility] [address] [place] [address] Dr. Sera Quach VLDL CALC 17.0 mg/dL Normal [facility] Comment on above: Performed By: #### C MP, LIPID #### [facility] [address] [place] [address] [address] Sera Quach MICROALBUMIN, RAND URon 12-26 mALB 1.3 mg/L Normal <=30.[address] [facility] Comment on above: Performed By: #### M ALBR #### [facility] [address] [place] [address] Dr. Sera Quahc PROF 14(COMP METB)on 022 Albumin [Mass/Vol] 3.9 g/dL Normal 3.4-5.[address] [facility] Comment on above: Performed By: #### C MP, LIPID #### [facility] [address] [place] [address] Dr. Sera Quach Albumin/Globulin [Mass ratio] 1.1 {ratio} Normal [facility] Comment on above: Performed By: #### C MP, LIPID #### [facility] [address] [place] [address] Dr. Sera Quach ALP [Catalytic activity/Vol] 76 U/L Normal 46-[address] [facility] Comment on above: Performed By: #### C MP, LIPID #### [facility] [address] [place] [address] Dr. Sera Quach ALT [Catalytic activity/Vol] 64 U/L Critically high 16-[address] [facility] Comment on above: Performed By: #### C MP, LIPID #### [facility] [address] [place] [address] Dr. Sera Quach Anion gap [Moles/Vol] 12.7 mmol/L Normal [facility] Comment on above: Performed By: #### C MP, LIPID #### [facility] [address] [place] [address] Dr. Sera Quach AST [Catalytic activity/Vol] 37 U/L Normal 15-[address] [facility] Comment on above: Performed By: #### C MP, LIPID #### [facility] [address] [place] [address] Dr. Sera Quach Bilirubin [Mass/Vol] 0.6 mg/dL Normal 0.2-1.[address] [facility] Comment on above: Performed By: #### C MP, LIPID #### [facility] [address] [place] [address] Dr. Sera Quach Calcium [Mass/Vol] 9.0 mg/dL Normal 8.5-10.[address] [facility] Comment on above: Performed By: #### C MP, LIPID #### [facility] [address] [place] [address] Dr. Sera Quach Chloride [Moles/Vol] 101 mmol/L Normal 98-[address] [facility] Comment on above: Performed By: #### C MP, LIPID #### [facility] [address] [place] [address] Dr. Sera Quach CO2 [Moles/Vol] 27.6 mmol/L Normal 21.0-32.[address] [facility] Comment on above: Performed By: #### C MP, LIPID #### [facility] [address] [place] [address] Dr. Sera Quach Creatinine [Mass/Vol] 0.75 mg/dL Normal 0.70-1.[address] [facility] Comment on above: Performed By: #### C MP, LIPID #### [facility] [address] [place] [address] Dr. Sera Quach EGFR-AF MONTENEGRIN >60 Normal >=[address] [facility] Comment on above: Performed By: #### C MP, LIPID #### [facility] [address] [place] [address] Dr. Sera Quach EGFR-NON AF MONTENEGRIN >60 Normal >=[address] [facility] Comment on above: Performed By: #### C MP, LIPID #### [facility] [address] [place] [address] Dr. Sera Quach Globulin (S) [Mass/Vol] 3.6 g/dL Normal [facility] Comment on above: Performed By: #### C MP, LIPID #### [facility] [address] [place] [address] Dr. Sera Quach Glucose [Mass/Vol] 184 mg/dL Critically high 74-106 [facility] Comment on above: Performed By: #### C MP, LIPID #### [facility] [address] [place] [address] Dr. Sera Quach Potassium [Moles/Vol] 4.3 mmol/L Normal 3.5-5.[address] [facility] Comment on above: Performed By: #### C MP, LIPID #### [facility] [address] [place] [address] Dr. Sera Quach Protein [Mass/Vol] 7.5 g/dL Normal 6.4-8.[address] [facility] Comment on above: Performed By: #### C MP, LIPID #### [facility] [address] [place] [address] Dr. Sera Quach Sodium [Moles/Vol] 137 mmol/L Normal 136-[address] [facility] Comment on above: Performed By: #### C MP, LIPID #### [facility] [address] [place] [address] Dr. Sera Quach Urea nitrogen [Mass/Vol] 12.0 mg/dL Normal 7.0-18.[address] [facility] Comment on above: Performed By: #### C MP, LIPID #### [facility] [address] [place] [address] Dr. Sera Quach Urea nitrogen/Creatinine [Mass ratio] 16.0 mg/mg Normal [facility] Comment on above: Performed By: #### C MP, LIPID #### [facility] [address] [place] [address] Dr. Sera Quach UA RANDOM W/MICROSCOPICon BACTERIA NONE SEEN Normal NONE SEEN [facility] Comment on above: Performed By: #### U AMIC #### [facility] [address] [place] [address] Dr. Sera Quach Bilirubin Ql (U) Negative Normal NEGATIVE [facility] Comment on above: Performed By: #### U AMIC #### [facility] [address] [place] [address] Dr. Sera Quach CAST NONE SEEN Normal NONE SEEN [facility] Comment on above: Performed By: #### U AMIC #### [facility] [address] [place] [address] Dr. Sera Quach Clarity (U) CLOUDY Abnormal CLEAR [facility] Comment on above: Performed By: #### U AMIC #### [facility] [address] [place] [address] Dr. Sera Quach Color (U) YELLOW Normal YELLOW [facility] Comment on above: Performed By: #### U AMIC #### [facility] [address] [place] [address] [address] Sera Quach Crystals LM Nom (Urine sed) SEEN Abnormal NONE SEEN [facility] Comment on above: Performed By: #### U AMIC #### [facility] [address] [place] [address] [address] Sera Quach Epithelial cells LM Ql (Urine sed) RARE Normal NONE SEEN /RARE [facility] Comment on above: Performed By: #### U AMIC #### [facility] [address] [place] [address] [address] Sera Quach Glucose Ql (U) Negative Normal NEGATIVE [facility] Comment on above: Performed By: #### U AMIC #### [facility] [address] [place] [address] [address] Sera Quach Hemoglobin Ql (U) Negative Normal NEGATIVE [facility] Comment on above: Performed By: #### U AMIC #### [facility] [address] [place] [address] Dr. Sera Quach Ketones Ql (U) Negative Normal NEGATIVE [facility] Comment on above: Performed By: #### U AMIC #### [facility] [address] [place] [address] [address] Sera Quach LEUKOCYTES Negative Normal NEGATIVE [facility] Comment on above: Performed By: #### U AMIC #### [facility] [address] [place] [address] [address] Sera Quach MUCOUS NONE SEEN Normal NONE SEEN [facility] Comment on above: Performed By: #### U AMIC #### [facility] [address] [place] [address] [address] Sera Quach Nitrite Ql (U) Negative Normal NEGATIVE [facility] Comment on above: Performed By: #### U AMIC #### [facility] [address] [address] [address] Sera Quach pH (U) 5.5 [pH] Normal 5-9 The [facility] Comment on above: Performed By: #### U AMIC #### [facility] [address] [address] [address] Sera Quach RBC NONE SEEN Abnormal 0-2 [facility] Comment on above: Performed By: #### U AMIC #### [facility] [address] [address] [address] Sera Quach SPEC GRAVITY 1.025 Normal 1.005-<=1. 025 [facility] Comment on above: Performed By: #### U AMIC #### [facility] [address] [address] [address] Sera Quach UA PROTEIN Negative Normal NEGATIVE/ TRACE [facility] Comment on above: Performed By: #### U AMIC #### [facility] [address] [address] [address] Sera Quach Urobilinogen Qn (U) 1.0 {Jessika'U}/dL Normal 0.2 - 1. [address] [facility] Comment on above: Performed By: #### U AMIC #### [facility] [address] [place] [address] Dr. Sera Quach WBC 0-2 Abnormal NONE SEEN [facility] Comment on above: Performed By: #### U AMIC #### [facility] [address] [address] [address] Sera Quach GLYCOHEMOGLOBIN A1Con 2020 ADA RECOMMENDATION ADA THERAPEUTIC TARG ET 6.0 - 7.0 ACTION SUGGESTED > 7.[address] [facility] Comment on above: Performed By: #### A 1C #### [facility] [address] [place] [address] Dania Carreno Glucose [Mass/Vol] 174 mg/dL Normal [facility] Comment on above: Performed By: #### A 1C #### [facility] [address] [address] Dania Carreno HbA1c (Bld) [Mass fraction] 7.7 % Critically high <=6.0 [facility] Comment on above: Performed By: #### A 1C #### [facility] [address] [place] [address] Dania Carreno PROF CHEM 8 (BAS METB)on Anion gap [Moles/Vol] 9.0 mmol/L Normal [facility] Comment on above: Performed By: #### B MP #### [facility] [address] [id number] Dania Ev Calcium [Mass/Vol] 8.8 mg/dL Normal 8.4-10.2 [facility] Comment on above: Performed By: #### B MP #### [facility] [address] [address] Dania Ev Chloride [Moles/Vol] 102 mmol/L Normal 98-107 [facility] Comment on above: Performed By: #### B MP #### [facility] [address] [address] Dania Ev CO2 [Moles/Vol] 29.1 mmol/L Normal 22.0-30.[address] [facility] Comment on above: Performed By: #### B MP #### [facility] [address] [place] [address] Dania Ev Creatinine [Mass/Vol] 0.73 mg/dL Normal 0.66-1.[address] [facility] Comment on above: Performed By: #### B MP #### [facility] [address] [id number] Dania Ev EGFR-AF MONTENEGRIN >60 Normal >=60 [facility] Comment on above: Performed By: #### B MP #### [facility] [address] [place], [place] [id number] Dania Ev EGFR-NON AF MONTENEGRIN >60 Normal >=60 [facility] Comment on above: Performed By: #### B MP #### [facility] [address] [id number] Dania Ev Glucose [Mass/Vol] 141 mg/dL Critically high 74-106 [facility] Comment on above: Performed By: #### B MP #### [facility] [address] [id number] Dania Ev Potassium [Moles/Vol] 4.1 mmol/L Normal 3.4-5.0 [facility] Comment on above: Performed By: #### B MP #### [facility] [address] [place], [place] [id number] Dania Ev Sodium [Moles/Vol] 136 mmol/L Critically low 137-145 [facility] Comment on above: Performed By: #### B MP #### [facility] [address] [place], [place] [address] Dania Ev Urea nitrogen [Mass/Vol] 9.0 mg/dL Normal 9.0-20.[address] [facility] Comment on above: Performed By: #### B MP #### [facility] [address] [place], [place] [address] Dania Ev Urea nitrogen/Creatinine [Mass ratio] 12.3 mg/mg Normal [facility] Comment on above: Performed By: #### B MP #### [facility] [address] [place], [place] [address] Dania Carreno Vital Signs Date Time Vital Sign Value Performing Clinician Facility 03-30-2024 12:00-0400 Body temperature 98 [degF] Cecy Aichholz Work Phone: [facility] 03-30-2024 12:00-0400 Diastolic blood pressure 88 mm[Hg] Cecy Aichholz Work Phone: [facility] 03-30-2024 12:00-0400 Heart rate 80 /min Cecy Aichholz Work Phone: [facility] 03-30-2024 12:00-0400 Respiratory rate 19 /min Cecy Aichholz Work Phone: [facility] 03-30-2024 12:00-0400 SaO2% (BldA) [Mass fraction] 95 % Cecy Aichholz Work Phone: [facility] 03-30-2024 12:00-0400 Systolic blood pressure 140 mm[Hg] Cecy Aichholz Work Phone: [facility] 03-30-2024 02:25-0400 Body height 190.5 cm Cecy Aichholz Work Phone: [facility] 03-30-2024 02:25-0400 Body weight 151.5 kg Cecy Aichholz Work Phone: [facility] 03-30-2024 02:03-0400 Body temperature 98.3 [degF] Cecy Aichholz Work Phone: [facility] 03-30-2024 02:03-0400 Diastolic blood pressure 73 mm[Hg] Cecy Aichholz Work Phone: [facility] 03-30-2024 02:03-0400 Heart rate 62 /min Cecy Aichholz Work Phone: [facility] 03-30-2024 02:03-0400 Respiratory rate 18 /min Cecy Aichholz Work Phone: [facility] 03-30-2024 02:03-0400 SaO2% (BldA) [Mass fraction] 96 % Cecy Aichholz Work Phone: [facility] 03-30-2024 02:03-0400 Systolic blood pressure 133 mm[Hg] Cecy Aichholz Work Phone: [facility] 03-29-2024 22:19-0400 Body height 190.5 cm Cecy Aichholz Work Phone: [facility] 03-29-2024 22:19-0400 Body weight 151.9 kg Cecy Aichholz Work Phone: [facility] 03-25-2024 16:05-0400 Diastolic blood pressure 83 mm[Hg] Cecy Aichholz Work Phone: [facility] 03-25-2024 16:05-0400 Heart rate 86 /min Cecy Aichholz Work Phone: [facility] 03-25-2024 16:05-0400 Respiratory rate 18 /min Cecy Aichholz Work Phone: [facility] 03-25-2024 16:05-0400 SaO2% (BldA) [Mass fraction] 98 % Cecy Evansher Work Phone: [facility] 03-25-2024 16:05-0400 Systolic blood pressure 120 mm[Hg] Cecy Aichholz Work Phone: [facility] 03-25-2024 09:37-0400 Body temperature 98 [degF] Cecy Yobanypaulieholz Work Phone: [facility] 03-25-2024 06:32-0400 Body weight 149.5 kg Cecy Yobanyolamidez Work Phone: [facility] 03-23-2024 03:31-0400 Body height 190.5 cm Cecy Evanholz Work Phone: [facility] 10-08-2021 13:30-0500 Body height 190.5 cm Yue Pedroza Other [facility] Other 10-08-2021 13:30-0500 Body mass index (BMI) [Ratio] 45.12 kg/m2 Yue Pedroza Other [facility] Other 10-08-2021 13:30-0500 Body temperature 96.6 [degF] Yue Pedroza Other [facility] Other 10-08-2021 13:30-0500 Body weight 163.75 kg Yue Pedroza Other [facility] Other 10-08-2021 13:30-0500 SaO2% (BldA) [Mass fraction] 98 % Yue Pedroza Other [facility] Other Encounters Encounter Date Encounter Type Care Provider Facility Start: 05-21-2024 End: 05-21-2024 ambulatory CECY ABEBEHOLZ Not Available Start: 05-01-2024 End: 05-01-2024 ambulatory LISET BARBARA Not Available Start: 04-17-2024 End: 04-17-2024 ambulatory [facility] Start: 04-04-2024 End: 04-04-2024 ambulatory CECY AICPaulieHOLZ Not Available Start: 04-03-2024 End: 04-03-2024 ambulatory LISET BARBARA Not Available Start: 03-30-2024 End: 03-30-[address] Facility:[facility] Start: 03-30-2024 End: 03-30-2024 Evaluation and management of inpatient Cecy Aichholz Work Phone: [facility] Work Phone: Start: 03-30-2024 End: 03-30-2024 observation encounter Cecy Miranda Yobanypauliefroylanyancy Work Phone: [facility] Work Phone: Start: 03-23-2024 End: 03-25-2024 Evaluation and management of inpatient Cecy Aichholz Work Phone: [facility] Work Phone: Start: 03-04-2024 End: 03-04-2024 ambulatory JULIET SILVEIRAETT Not Available Start: 02-20-2024 End: 02-20-2024 ambulatory CECY AICHHOLZ Not Available Start: 02-13-2024 End: 02-13-2024 ambulatory TANA CARDENAS Not Available Start: 02-07-2024 End: 02-07-2024 ambulatory VICKY SCRUGGS Not Available Start: 11-16-2023 End: 11-16-2023 ambulatory CECY AICHHOLZ Not Available Start: 11-12-2023 Refill Lula Cota MD Work Phone: [facility] Start: 10-11-2023 Refill Cecy Yobanyhholz DARIO Work Phone: [facility] Comment on above: Type 2 diabetes genet itus without complication, without long- term current use of insulin (CMS/HCC) (Primary Dx); Type 2 diabetes mellitus without complications (CMS/HCC) Start: 08-16-2023 End: 08-16-2023 ambulatory CECY AICHHOLZ Not Available Start: 04-23-2022 End: 04-23-2022 ambulatory MACHINE S[employer] MIX[employer] CECY AICHHOLZ Facility:[facility] Start: 01-11-2022 End: 01-12-2022 ambulatory MACHINE [employer] MIX[employer] CECY AICHHOLZ Facility:[facility] Start: 10-08-2021 End: 10-08-2021 ambulatory Yue Pedroza Other [facility] Other Start: 10-08-2021 Office outpatient vi sit 15 minutes Yue Pedroza [facility] Start: 06-07-2021 End: 06-07-2021 ambulatory MACHINE S[employer] MIX[employer] CECY AICHHOLZ Facility:[facility] Start: 05-05-2021 End: 05-06-2021 ambulatory MACHINE SAND MIX[employer] CECY AICHHOLZ Facility:[facility] Start: 06-08-2018 End: 06-09-2018 Patient encounter procedure DEFAULT PHYSICIAN Facility:[facility] Start: 11-07-2013 End: 11-07-2013 Telephone [...] Work Phone: Start: 03-23-2024 Plain chest X-ray Eccy Aichholz Work Phone: Plan of Treatment Date Care Activity Detail Author Start: 03-30-2024 End: 03-30-2024 [facility] Start: 03-30-2024 Physical therapy procedure [facility] Start: 03-30-2024 Referral to neurologist [facility] Start: 03-30-2024 Referral to occupational therapist [facility] Start: 03-30-2024 [facility] Start: 03-30-2024 Hospital admission [facility] Start: 03-29-2024 CT of head without contrast CT head/brain wo con [facility] Start: 03-29-2024 CT Unspecified body region WO contrast [facility] Start: 03-25-2024 [facility] Start: 03-25-2024 Cerebrospinal fluid culture [facility] Start: 03-24-2024 [facility] Start: 03-23-2024 [facility] Start: 03-23-2024 Hospital admission [facility] Start: 03-23-2024 Referral to neurologist [facility] Start: 01-14-2024 Urine screening for protein Diabetes: Urine Protein Screening [facility] Start: 01-03-2024 End: 01-03-2024 Patient encounter procedure 01/03/2024 3:00 PM EDT Office Visit [facility] [address] [phone] Lula Cota MD [address] [address] [facility] Start: 12-27-2023 Screening for malignant neoplasm of colon [facility] Start: 11-16-2023 End: 11-16-2023 Patient encounter procedure 11/16/2023 1:20 PM EDT Office Visit [facility] [address] [place] [address] Cecy Hernandez, DARIO [address] [place] [id number] [facility] Start: 11-03-2023 Hemoglobin A1c measurement Diabetes: Hemoglobin A1C [facility] Start: 04-28-2023 Influenza vaccination Influenza Vaccine [facility] Start: 04-28-2020 Influenza vaccination INFLUENZA (#1) [facility] Start: 2012 LIPID SCREEN LIPID SCREEN [facility] Start: 1996 DTaP,Tdap and Td Vaccines (1 - Tdap) DTaP,Tdap and Td Vaccines (1 - Tdap) [facility] Start: 1996 Urine microalbumin profile DTAP,TDAP,TD (1 - Tdap) [facility] Start: 1995 Adult BMI Screening Adult BMI Screening [facility] Start: 1995 Diabetic foot examination Diabetic Foot Exam [facility] Start: 1995 HIV SCREENING HIV SCREENING [facility] Start: 1989 Depression Screening Depression Screening [facility] Start: 1989 Tobacco Screening Tobacco Screening [facility] Start: 1987 Glaucoma screening Diabetes: Retinopathy Screening [facility] Start: 1977 Glaucoma screening Diabetic Ophthalmology Exam [facility] Start: 1977 Screening for malignant neoplasm of colon [facility] Start: 1977 Urine screening for protein Urine Microalbumin [facility] Albumin [Mass/volume ] in Cerebral spinal fluid [facility] Albumin [Mass/volume ] in Serum or Plasma [facility] Anion gap measurement [facility] Bacteria identified in Unspecified specimen by Aerobe culture [facility] Bacteria identified in Unspecified specimen by Anaerobe culture [facility] Basophils [#/volume] in Blood by Automated count [facility] Basophils/100 leukoc ytes in Blood by Automated count [facility] Borrelia burgdorferi IgG+IgM Ab [Presence] in Serum by Immunoassay [facility] Cerebrospinal fluid IgG ratio and IgG index [facility] Eosinophils/100 leukocytes in Blood by Automated count [facility] Erythrocyte distribu tion width [Ratio] by Automated count [facility] Erythrocytes [#/volu me] in Blood [facility] Hematocrit [Volume Fraction] of Blood [facility] Hemoglobin [Mass/vol ume] in Blood [facility] IgG [Mass/volume] in Cerebral spinal fluid [facility] IgG [Mass/volume] in Serum or Plasma [facility] IgG clearance/Albumi n clearance [Ratio] in Serum and CSF [facility] IgG synthesis rate [Mass/time] in Serum and CSF by calculation [facility] Leukocytes [#/volume ] corrected for nucleated erythrocytes in Blood by Automated coun [facility] Leukocytes [#/volume ] in Blood [facility] Lymphocytes [#/volum e] in Blood by Automated count [facility] Lymphocytes/100 leukocytes in Blood by Automated count [facility] MCH [Entitic mass] b y Automated count [facility] MCHC [Mass/volume] b y Automated count [facility] MCV [Entitic volume] by Automated count [facility] Monocytes [#/volume] in Blood by Automated count [facility] Monocytes/100 leukoc ytes in Blood by Automated count [facility] Myoglobin [Mass/volu me] in Serum or Plasma [facility] Neutrophils [#/volum e] in Blood by Automated count [facility] Neutrophils/100 leukocytes in Blood by Automated count [facility] Nucleated erythrocyt es [Presence] in Blood by Automated count [facility] Patient Education Know your Meds [facility] Work Phone: Patient referral [facility] Work Phone: Platelet mean volume [Entitic volume] in Blood by Automated count [facility] Platelets [#/volume] in Blood [facility] Protein fractions.oligoclonal bands.intrathecal [Presence] in Serum and CSF [facility] Immunizations Immunization Date Immunization Notes Care Provider Fa [facility] 06-06-2023 influenza virus vaccine, unspecified formulation Cecy Hernandez [employer] Work Phone: [facility] 04-04-2014 tetanus toxoid, redu [place] diphtheria toxoid, and acellular pertussis vaccine, adsorbed Yue Kasia Other [facility] 06-12-2013 influenza virus vaccine, unspecified formulation Haylee Garcia [facility] Payers Date Payer Category Payer Self-pay 2022 Medicaid [id number] 2022 Medicaid [id number] 2013 Medicaid [employer] [place] [employer] MEDICAID [id number] 2013-Present Medicaid [id number] 2013 Self-pay SELF PAY HSP/MED ICAL SELF PAY [id number] 2013-2015 SELF PAY Indemnity [id number] 1977 Unknown [id number] 2.16.840.1.071686.3.579.2.647 1977 Unknown [id number] 2.16.840.1.454137.3.579.2.593 1977 Unknown [id number] 2.16.840.1.095334.3.579.2.593 1977 Unknown [id number] 2.16.840.1.560759.3.579.2.593 1977 Unknown [id number] 2.16.840.1.922997.3.579.2.593 1977 Unknown [id number] 2.16.840.1.715708.3.579.2.1286 1977 Unknown [id number] 2.16.840.1.148337.3.579.2.1286 1977 Unknown [id number] 2.16.840.1.173425.3.579.2.1286 1977 Unknown [id number] 2.16.840.1.819979.3.579.2.9 1977 Unknown [id number] 2.16.840.1.757924.3.579.2.9 1977 Unknown [id number] 2.16.840.1.864560.3.579.2.9 1977 Unknown [id number] 2.16.840.1.271208.3.579.2.1258 1977 Unknown [id number] 2.16.840.1.294056.3.579.2.1258 1977 Unknown [id number] 2.16.840.1.268704.3.579.2.1258 1977 Unknown [id number] 2.16.840.1.867411.3.579.2.1258 1977 Unknown [id number] 2.16.840.1.301764.3.579.2.1258 1977 Unknown [id number] 2.16.840.1.124114.3.579.2.1258 1977 Unknown [id number] 2.16.840.1.287488.3.579.2.9 1959 Unknown [id number] 2.16.840.1.616032.19 1959 Unknown [id number] Unknown Unknown [id number] 2.16.840.1.040595.3.579.2.531 Unknown [id number] 2.16840.1.610008.3.579.2.531 Social History Date Type Detail Facility Start: 05-20-2013 End: 03-30-2024 Tobacco smoking status [facility] Former smoker [facility] Start: 05-20-2013 Alcohol intake Not Asked [facility] Start: 1975 Sex Assigned At Not on file [facility] Start: 02-06-2019 End: 08-16-2023 Sex Assigned At [facility] Other History of tobacco use Current smoker [facility] History of tobacco use Cigarette Smoker [facility] Start: 08-16-2023 Alcohol intake Ex-drinker (finding) [facility] Start: 02-06-2019 End: 08-16-2023 History of Social function [facility] Start: 08-16-2023 Tobacco Comment Last smoked: 5-10 ye ars [facility] Start: 08-16-2023 Alcohol Comment caffeine 1-2 c ups per day [facility] Tobacco smoking status NHIS Tobacco smoking consumption unknown [facility] Childcare Unknown [facility] Start: 1975 Sex Assigned At Male F [facility] Medical Equipment Procedure Code Equipment Code Equipment Origin al Text Equipment Identifier Dates 1 each by Other route Daily as needed [id number] Start: 10-13-2022 1 each by Other route if needed [id number] Start: 10-13-2022 Goals Date Patient Goal Desired Activity /State Functional Status Date Assessment Result Facility 03-30-2024 Functional status Patient at Baseline [facility] Work Phone: 03-25-2024 Functional status Patient at Baseline [facility] Work Phone: Mental Status Date Assessment Result Facility 03-30-2024 Cognitive function Cognitive Sta tus Patient at Baseline [facility] Work Phone: 03-25-2024 Cognitive function Cognitive Sta tus Patient at Baseline [facility] Work Phone: Clinical Notes 10-08-2021 to 03-30-2024 Note Date & Type Note Facility 03-30-2024 Discharge summary Note Date/Time March 30, 2024 12:47pm [facility] [address] [place] [address] Discharge Summary Signed Patient: Bhumika Umana JR MR#: [id number] : 1975 Acct:[id number] Age/Sex: 48 / M Adm Date: 4 Loc: 3T Room: [address] [place] [address]: Bola Garcia DO Copies to: MD Bola Mast DO Lisa J Aichholz, NP-C~ Providers Date of Discharge: 03/30/24 Discharging Provider: [...] ago and has been feeling fine. Current milk deliverer is working him up for possible Sjogren's [...] neurology clinic. He needs to see his milk deliverer in [place]. The following labs are still pending from [...] the neurology office. Follow up with your Jv Baseball Coach in [place]. Instructions: Know your Meds Prescriptions: Continued amitriptyline [...] Upper extremity: He does have mildly weak yoga teacher strength of both hands and mild weakness [...] % (Auto) 67.6, Lymph % (Auto) 22.0, [place] % (Auto) 9.0, Eos % (Auto) 1.0, Baso % (Auto) 0.4, Nucleat RBC Rel Count 0.0, Neut # (Auto) 13.5 H, Lymph #(Auto) 4.4, [place] [place] # (Auto) 1.8 H, Eos # (Auto) 0.2, Baso # (Auto) 0.1, PHA Creatinine Clear 238.21, Sodium 136, Potassium 4.4, Chloride 101, Carbon Jvgbary96.2, Anion Gap 12.2, BUN 13, Creatinine 0.61 [...] % (Auto) 77.7, Lymph % (Auto) 14.7, [place] % (Auto) 6.5, Eos % (Auto) 0.6, Baso % (Auto) 0.5, Nucleat RBC Rel Count 0.1, Neut # (Auto) 13.3 H, Lymph #(Auto) 2.5, [place] # (Auto) 1.1 H, Eos # (Auto) [...] signed by Bola Garcia DO> 03/30/24 1247 [facility] Work Phone: 1(933) 878-344408-03-2024 Consult note Author Altagracia Street [facility] March 30, 2024 11:04am Note Date/Time March 30, 2024 10: 08am [facility] [address] [place] [address] Neurology Consult Note Signed Patient: Bhumika Umana JR MR#: [id number] : 1975 Acct:[id number] Age/Sex: 48 / M Adm Date: 4 Loc: Room: [address] [place] [address] Type: ADM INOo Attending Dr: Bola Garcia DO Copies to: DO Cecy Watson NP-C Altagracia Street DO~ HPI Consult Date: 03/30/24 Guest Services Assistant: Altagracia Street DO Reason for consult: weakness Consult Narrative HPI: 48-year-old male being seen in Neurology consultation at the request of the hospitalist. The patient was recently admitted worked up and released for similar issues. The patient has a PMH of T2DM, HTN, depression adn RA. The patient [facility] wt new complaints of BLE where his [...] brother came over to go to the [facility]. States he needed help just opening up [...] that his hands feel like they have geok-cls-vkythkjuv them. He was discharged from the hospital [...] ago and has been feeling fine. Current milk deliverer is working him up for possible Sjogren's [...] Denies dizziness, Reports headache(s) and Reports weakness PENDING SALE TO [facility] Medical History Depressed Acute rheumatoid arthritis [...] Confirmed 03/30/24] dapagliflozin propanediol 5 mg tablet (Farga) 10 mg PO DAILY 03/23/24 [History Confirmed [...] Mert Ferreira M.D.03/30/2024 9:26 AM Dictation Location: [place] [address] Assessment/Plan (1) Bilateral arm weakness: (2) Bilateral [...] a fall after he went to the [facility] and sat for an extended period oftime. [...] <Electronically signed by DO Altagracia Street> 03/30/24 9165 [facility] Work Phone: 1(155) 129-462208-03-2024 History and physical note Author Edgar Gomez [facility] March 30, 2024 6:59am Note Date/Time March 30, 2024 1:3 8am [facility] [address] [place] [address] Hospitalist H&P Signed Patient: Bhumika Umana JR MR#: [id number] : 1975 Acct:[id number] Age/Sex: 48 / M Adm Date: 4 Loc: Room: [address] [place] [address] Type: ADM INOo Attending Dr: Edgar Gomez MD Copies to: MD Cecy Jeter, DARIO-C Margaret Malave, [employer]~ HPI DATE OF EXAMINATION: 03/30/24 CHIEF COMPLAINT: ble weakness and fall HISTORY OF PRESENT ILLNESS: Mr. Umana is a 48-year-old male with a PMH of T2DM, HTN, depression, RA [facility] and a [...] that his hands feel like they have dndb-ouc-liaiupx in them. He is moving both of [...] ago and has been feeling fine. Current milk deliverer is working him up for possible Sjogren's [...] unless noted in the HPI or below. PENDING SALE TO [facility] Medical History (Updated 03/30/24 @ 00:44 [...] % (Auto) 14.7 % (.) 03/29/24 22:50 [place] % (Auto) 6.5 % (.) 03/29/24 22:50 Eos % (Auto) 0.6 % (.) 03/29/24 22:50 Baso % (Auto) 0.5 % (.) 03/29/24 22:50 Nucleat RBC Rel Count 0.1 /100 WBC (0-0.5) 03/29/24 22:50 Neut # (Auto) 13.3 x10E3/uL (1.8-7.7) H 03/29/24 22:50 Lymph # (Auto) 2.5 x10E3/uL (1.00-4.8) 03/29/24 22:50 [place] # (Auto) 1.1 x10E3/uL (0.0-0.8) H 03/29/24 [...] signed by Edgar Gomez MD> 03/30/24 0659 [facility] Work Phone: 1(385) 122-569007-29-2024 Progress note Author Danial Horan [facility] March 25, 2024 2:09pm Note Date/Time March 25, 2024 2:03 pm [facility] [address] [place] [address] Neurology Progress Note Signed Patient: Bhumika Umana JR MR#: [id number] : 1975 Acct:[id number] Age/Sex: 48 / M Adm Date: 4 Loc: 3T Room: [address] [place] [address] Type: ADM IN Attending Dr: Simon Wolfe [...] wrist flexion, +2/5 bilateralfinger extension, +4/5 bilateral yoga teacher strength, +3/5 finger abduction bilaterally. No tremors. [...] <Electronically signed by Danial Horan DO> 03/25/24 9097 [facility] Work Phone: 1(667) 921-678107-28-2024 Progress note Author Danial Horan [facility] March 24, 2024 1:33pm Note Date/Time March 24, 2024 1:33 pm [facility] [address] [place] [address] Neurology Progress Note Signed Patient: Bhumika Umana JR MR#: [id number] : 1975 Acct:[id number] Age/Sex: 48 / M Adm Date: 4 Loc: Room: [address] [place] [address] Type: ADM IN Attending Dr: Elder Iyer [...] wrist flexion, +2/5 bilateralfinger extension, +4/5 bilateral yoga teacher strength, +3/5 finger abduction bilaterally. No tremors. 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, mentions that he could not hold a [...] spray 03/23/24 22:00 03/23/24 21:18 Fluticasone Propionate [place] [address] [place]/16 Gm Bottle NARES-BOTH 03/23/25 21:59 Not Given [...] Insuln.Pen SUBCUT 03/23/25 07:59 Not Given TID.WM.HS [facility] Protocol Lisinopril 20 mg 03/23/24 09:00 03/24/24 [...] of his bilateral worsening in his hand yoga teacher this am -He is off steroids -His [...] signed by Elder Iyer MD> 03/24/24 1101 [facility] Work Phone: 1(457) 260-573807-27-2024 Progress note Author Elder Iyer [facility] March 23, 2024 2:33pm Note Date/Time March 23, 2024 2:33 pm [facility] [address] [place] [address] Hospitalist Progress Note Signed Patient: Bhumika Umana JR MR#: [id number] : 1975 Acct:[id number] Age/Sex: 48 / M Adm Date: 4 Loc: 3T Room: [address] [place] [address] Type: ADM IN Attending Dr: Elder Iyer [...] reviewed today: Cervical spine MRI done in [place]: The MRI of the cervical spine is [...] with and without contrast done here at [facility]: Focal areas of abnormal signal are [...] in his hands and 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, sensation is normal over the bilateral upper [...] Propionate 2 spray 03/23/24 22:00 Fluticasone Propionate [place] [address] [place]/16 Gm Bottle NARES-BOTH 03/23/25 21:59 QHS FARZANEH [...] Tablet PO 03/23/25 08:59 10 mg DAILY FARZAENH Administration Naproxen 500 mg 03/23/24 08:00 03/23/24 [...] <Electronically signed by Elder Iyer MD> 03/23/24 1433 [facility] Work Phone: 1(432) 519-699007-27-2024 Consult note Author Danial Horan [facility] March 23, 2024 1:05pm Note Date/Time March 23, 2024 11:3 9am [facility] [address] [place] [address] Neurology Consult Note Signed Patient: Bhumika Umana JR MR#: [id number] : 1975 Acct:[id number] Age/Sex: 48 / M Adm Date: 4 Loc: Room: [address] [place] [address] Type: ADM IN Attending Dr: Elder Iyer MD Copies to: DO Cecy Aguirre, DARIO-C Elder Iyer MD~ HPI Consult Date: 03/23/24 Guest Services Assistant: Danial Horan DO PENDING SALE TO [facility] Medical History (Updated 03/23/24 @ 02:25 [...] his close, etc. He went to the [place] emergency department to be evaluated and had to sign some for there and had used two handsto manipulate the pen. The [place] emergency department called me overnight and told [...] wrist flexion, +2/5 bilateralfinger extension, +4/5 bilateral yoga teacher strength, +3/5 finger abduction bilaterally. No tremors. [...] clinic Documented By: Danial Horan DO 03/23/24 7903 Signed By: <Electronically signed by Danial Horan DO> 03/23/24 8907 [facility] Work Phone: 1(851) 524-771307-27-2024 History and physical note Author Bola Garcia [facility] March 23, 2024 2:28am Note Date/Time March 23, 2024 2:28 am [facility] [address] [place] [address] Hospitalist H&P Signed Patient: Bhumika Umana JR MR#: [id number] : 1975 Acct:[id number] Age/Sex: 48 / M Adm Date: 4 Loc: Room: [address] [place] [address] Type: ADM IN Attending Dr: Bola Garcia DO Copies to: DO Cecy Watson NP-C~ HPI DATE OF EXAMINATION: 03/23/24 CHIEF COMPLAINT: Worsening weakness of both upper extremities. HISTORY OF PRESENT ILLNESS: This is a 48-year-old man who was sent to the emergency room at [facility] from the emergency room at [facility] as a ED to ED [...] on prednisone 2 days ago by the [place] [facility]. In [place] he has had a workup including a CT scan of his cervical spine and then an MRI of his cervical spine performed on March 19, 2024. Contact was made with the neurologist who felt thatthe patient should be brought over here to [facility] so he can get an MRI scan [...] like he recently got established with a milk deliverer at the [employer] system in [place] who told himthat his situation was not [...] except as mentioned elsewhere in the documentation. PENDING SALE TO [facility] Medical History (Updated 03/23/24 @ 02:25 [...] % (Auto) 8.2 % (.) 03/23/24 00:52 [place] % (Auto) 1.0 % (.) 03/23/24 00:52 Eos % (Auto) 0.0 % (.) 03/23/24 00:52 Baso % (Auto) 0.5 % (.) 03/23/24 00:52 Nucleat RBC Rel Count 0.1 /100 WBC (0-0.5) 03/23/24 00:52 Neut # (Auto) 15.5 x10E3/uL (1.8-7.7) H 03/23/24 00:52 Lymph # (Auto) 1.4 x10E3/uL (1.00-4.8) 03/23/24 00:52 [place] # (Auto) 0.2 x10E3/uL (0.0-0.8) 03/23/24 00:52 [...] He has been established recently with a milk deliverer out of the [employer] system in [place]. Plan: MRI of the brain with and [...] days): 2 Documented By: Bola Garcia DO 214 Signed By: <Electronically signed by Bola Garcia DO> 03/23/24227 [facility] Work Phone: 1(658) 368-813502-11-2022 Evaluation note* Encounter Date Diagnosis Assessment Notes [...] Patient care instructions given in writting by [facility] Home document. Reading [employer] Other Discharge summary Author Simon Wolfe [facility] March 25, 2024 5:58pm Note Date/Time March 25, 2024 5:50 pm [facility] [address] [place] [address] Discharge Summary Signed Patient: Bhumika Umana JR MR#: [id number] : 1975 Acct:[id number] Age/Sex: 48 / M Adm Date: 4 Loc: Room: [address] [place] [address]: Simon Wolfe MD Copies to: MD Cecy Mcdowell, LABOR [employer]ION BUSINESS REPRESENTATIVE-C~ Providers Date of Discharge: 03/25/24 Discharging Provider: [...] Deferred Neuro: AAO x3, no focal deficits. Infirmary Attendant strength 4+/5 throughout. 5/5 otherwise Extremities: No [...] 08:43: CSF Supernatant Color Colorless, CSF RBC [id number] 03/25/24 08:43: CSF Color Lt pink, CSF [...] N/A Documented By: Simon Wolfe MD 4 [id number] Signed By: <Electronically signed by Simon Wolfe MD> 03/25/24 4600 [facility] Work Phone: Evaluation note* Diagnosis Type 2 diabetes mellitus without complication, without long-term current use of insulin (CMS/HCC)- Primary Type 2 diabetes mellitus without complications (CMS/HCC) documented [facility] this encounter [facility] Diagnosis Onset Date Resolution Status Diabetes acute HTN (hypertension) acute Upper extremity weakness acu te [facility] Work Phone: Evaluation note* Diagnosis Onset Date Resolution Status Diabetes acute HTN (hypertension) acute Upper extremity weakness acu te Bilateral arm weakness acute Bilateral leg weakness acute Diabetes acute HTN (hypertension) acute Leukocytosis acute Upper extremity weakness acu te [facility] Work Phone: Evaluation note* Diagnosis Onset Date Resolution Status Diabetes acute HTN (hypertension) acute Upper extremity weakness acu te Bilateral arm weakness acute Bilateral leg weakness acute Diabetes acute Falls acute Fasciculation acute HTN (hypertension) acute Leukocytosis acute Upper extremity weakness acu te [facility] Work Phone: History general Narrative - Reported* Type Description Date Medical History rheumatoid arthritis Medical History type 2 diabeties Medical History Benign essential HTN Medical History Depression Surgical History tonsillectomy and adenoidectomy 1987 Hospitalization History tonsillitis childo d [facility] Other Hospital Discharge instructionsAmbulatory Orders* PT/OT/SP OutPatient Referral Time Frame: 1 Day, Location: Determined By Patient Additional Instructions Follow up in the neurology office. Follow up with your [employer] Baseball Coach in [place].[facility] Work Phone: InstructionsNot on filedocumented in this encounter [facility] Purpose Family History No Family History Records Found Relationship Condition Age at Onset Recorded Date/T sreekanth father Unknown Myocardial infarction Unknown Heart disease Unknown mother Family history of colon cancer Unknown Malignant neoplasm Unknown Hypertension Unknown Advance Directives No Advanced Directives Records Found Advance Directive Response Recorded Date/ Time Advance Directives No March 23 24 12:28am Chief Complaint and Reason for Visit Chief Complaint Sent from [place] E R Reason for Visit Diabetes HTN (hypertension) Upper extremity weakness Chief Complaint Sent from [place] [facility] R leg numbness Reason for Visit Diabetes HTN (hypertension) Upper extremity weakness Bilateral arm weakness Bilateral leg weakness Diabetes HTN (hypertension) Leukocytosis Upper extremity weakness Chief Complaint Sent from [place] E R leg numbness Reason for Visit [...] and content) DATE CREATED AUTHOR 11/14/2018 [facility] DATE CREATED AUTHOR AUTHOR'S ORGANIZ ATION 04/25/2022 [facility] DATE CREATED AUTHOR AUTHOR'S ORGANIZ ATION 04/08/2024 [facility] DATE CREATED AUTHOR AUTHOR'S ORGANIZ ATION 04/22/2024 [facility] DATE CREATED AUTHOR AUTHOR'S ORGANIZ ATION 05/24/2024 [facility] EPIC Source Comments (unrecognize d section and content) In the event this informatio n is protected by the Federal Confidentiality of Alcohol and Drug Abuse Patient Records regulations: The Federal rules restrict any use of the information to criminally investigate or prosecute any alcohol or drug abuse patient.[facility] Reason for Visit (unrecogniz ed section [...] Care Teams (unrecognized sec tion and content) Service Administrator Relationship Specialty Start Date End Date Lexa Hickman MD PCP - General Family Medicine 03/15/23 Cecy Hernandez NP [address] [place] [address] Referring Physician Nurse Practitioner 03/15/23 Team Status: Active Member Role Status Dates Cecy Miranda Yobanypauliesher Primary Care Provider Active Team Status: Inactive Member Role Status Dates Cecy Miranda Yobanypauliesher Primary Care Provider Active Sta rt: March [...] Status: Active Member Role Status Dates Cecy Ruth Hernandez Primary Care Provider Active Sta rt: March 30, 2024 Emily Winn DO Emergency Provider Active Start: March 30, 2024 Edgar Gomez MD Admit Provider, Atte nding Provider Active Start: March 30, 2024 Team Status: Inactive Member Role Status Dates Cecy Miranda David Primary Care Provider Active Sta rt: March [...] BE BASED ON THE PRIMARY CLINICAL RECORDS. [facility] provides no warranty or guarantee of the accuracy or completeness of information in this document.
[2024-05-28 17:29] LABS: Estimated Average Glucose 134 mg/dL; Glycohemoglobin A1C 6.3 % (4.5-6.2)
[2024-05-28 17:30] LABS: Anion Gap 13.9; BUN Creatinine Ratio 10.2; Calcium 9.2 mg/dL (8.5-10.1); Carbon Dioxide 25.1 mmol/L (21.0-32.0); Chloride 101 mmol/L (98-107); Estimated GFR (African America >60 (>=60 mL/min/1.73m^2); Estimated GFR (Non-African Ame >60 (>=60 mL/min/1.73m^2); Glucose 208 mg/dL (74-106); Sodium 136 mmol/L (136-145)
== END 2024-05-28 16:42 | disposition home or self-care (01) ==
PROVIDERS: PCP Nurse Practitioner; Visit Provider Nurse Practitioner
DX: I10 Essential (primary) hypertension (principal); E11.9 Type 2 diabetes mellitus without complications
CPT/HCPCS: 36415; 80048; 83036

== ENCOUNTER 2024-08-08 02:09 | Inpatient (IN) | payer MEDICAID, SELFPAY ==
[2024-08-08] VITALS (35 sets, daily range): BP systolic 106–146; BP diastolic 65–87; PULSE 72–106; TEMP 36.6–36.9; O2SAT 92–99; BMI 39.4; BMI 38.9
--- OUTSIDE RECORDS SUMMARY | 2024-08-08 02:16 | XMS_ITS | CCD ---
Author Organization [facility] Care Team Providers Care Setter Cold Rolling Machine Name Role Phone PHYSICIAN, DEFAULT Admitting Unavailable PHYSICIAN, DEFAULT Attending Unavailable PEGGY GAYTAN Primary Care Unavailable Primo Downing Primary Care Provider [phone] Yue Pderoza Unavailable AICHHOLZ, DINKEY ENGINE MECHANIC CECY Primary Care Unavailable AICHHOLZ, DINKEY ENGINE MECHANIC CECY Admitting Unavailable AICHHOLZ, DINKEY ENGINE MECHANIC CECY Attending Unavailable AICHHOLZ, DINKEY ENGINE MECHANIC CECY Consulting Unavailable AICHHOLZ, DINKEY ENGINE MECHANIC CECY Primary Care Unavailable AICHHOLZ, DINKEY ENGINE MECHANIC CECY Admitting Unavailable AICHHOLZ, DINKEY ENGINE MECHANIC CECY Attending Unavailable AICHHOLZ, DINKEY ENGINE MECHANIC CECY Consulting Unavailable AICHHOLZ, DINKEY ENGINE MECHANIC CECY Admitting Unavailable AICHHOLZ, DINKEY ENGINE MECHANIC CECY Attending Unavailable AICHHOLZ, DINKEY ENGINE MECHANIC CECY Consulting Unavailable AICHHOLZ, DINKEY ENGINE MECHANIC ECCY Primary Care Unavailable AICHHOLZ, DINKEY ENGINE MECHANIC CECY Primary Care Unavailable VISHAL, DR THANG Nichols Attending Unavailabl ken RODGERS, DR THANG Nichols Consulting Unavailabl ken RODGERS, DR THANG Nichols Admitting Unavailabl e JAKOB MCGHEE Consulting Unavailable Lexa Hickman MD Primary Care Provider [phone] Aichholz INFORMATICS SPECIALIST, Cecy Unavailable Unavailable Primary Care Provider Unavailabl e Aichholz, Cecy J Primary Care Provider MD Gale Gonzales Emergency Provider [phone] DO Bola Garcia Admit Provider [phone] DO Danial Horan Other Provider MD Simon Wolfe Attending Provider [phone] Krise, DO Emily M Emergency Provider MD Edgar Gomez Admit Provider MD Edgar Gomez Attending Provider DO Bola Garcia Attending Provider DO Altagracia Street Other Provider Altagracia Street Consulting Unavailable Edgar Gomez Admitting Unavailable Cecy Hernandez Primary Care Unavailable Bola Garcia Attending UnavailDanial Leija Consulting Unavailable YobanyhholReva reynoldsa J Primary Care Unavailable Simon Wolfe Attending Unavailab Bola Chan Admitting Unavailabl ken Hernandez INFORMATICS SPECIALIST, Cecy Unavailable Lexa Hickman MD Primary Care Provider David INFORMATICS SPECIALIST, Cecy Unavailable COTA, LULA Referring Unavailable COTA, LULA Attending Unavailable COTA, LULA Referring Unavailable COTA, LULA Referring Unavailable COTA, LULA Attending Unavailable COTA, LULA Referring Unavailable Unavailable Primary Care Provider Unavailmilvia Hernandez CNP, Cecy Primary Care Provider DAVID CECY Primary Care Unavailable HECTOR NAPOLES Attending Unavailable JameeloSerena hinojosa MD Provider Primary Care Provi karla Cecy Hernandez CNP Primary Care Provider DAREK VALDOVINOS Attending Unavailable ERROL SANFORD Referring Unavailable CECY HERNANDEZ Primary Care Unavailable LELAND DANG DRUZE Attending Unavailable LELAND DANG DRUZE Admitting Unavailable CECY HERNANDEZ Primary Care Unavailable Lexa Hickman MD Primary Care Provider CECY HERNANDEZ Attending Unavailable VICKY SCRUGGS Attending Unavailable TANA MARTINO Attending Unavailable CECY HERNANDEZ Attending Unavailable JULIET HWANG Attending Unavailable MARYJANE LIANG Attending Unavailable CECY HERNANDEZ Attending Unavailable CECY HERNANDEZ Attending Unavailable MARYJANE LIANG Attending Unavailable CECY HERNANDEZ Attending Unavailable CECY HERNANDEZ Attending Unavailable Allergies Allergy Classification Reported Allergen(s) Allergy Type Date of Onset Reaction(s) Facility (5 sources) Adhesive Tape; Translations: [ADHESIVE TAPE (ROSINS)] Allergy to substance 02-20-20 Rash [facility] (20 sources) Penicillins; Translations: [Penicillins] Drug Allergy 01-03-20 13 Unknown [facility] (1 source) Penicillins (Antibiotic) Drug allergy rash. 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 08-16-20 Dermatitis, [facility] (11 sources) Oxytetracycline Drug Allergy 08-16-20 Unknown [facility] (11 sources) Penicillin G Drug Allergy 08-16-20 Unknown [facility] (11 sources) Other Allergy to substance 08-16-20 Unknown [facility] (11 sources) Wound Dressing Adhesive Propensity to adverse reactions to drug 08-16-20 Rash [facility] (4 sources) Adhesive agent; Translations: [ADHESIVE] Propensity to adverse reactions to drug 02-20-20 13 Rash [facility] (4 sources) almond allergenic extract; Translations: [almond] Drug Allergy 03-23-20 [facility] (4 sources) cashew nut allergenic extract; Translations: [cashew nut] Drug Allergy 03-23-20 [facility] (1 source) Adhesive Tape Drug allergy (disorder) 03-29-20 [facility] (10 sources) almond allergenic extract Drug Allergy 03-29-20 [facility] Medications Current Medications Medication Drug Class(es) Dates Sig (Normalized) Sig (Original) amitriptyline hydrochloride 10 mg oral tablet (11 sources) Tricyclic Antidepressant Start: 04-17-2024 End: 06-12-2024 take 1 tablet by mouth once daily amitriptyline (ELAVIL) 10 mg tablet Indications: Primary osteoarthritis of both hands TAKE 1 TABLET BY MOUTH DAILY at 8pm 30 tablet 5 06/12/2024 Active Start: 03-23-2024 take 10 mg by mouth once daily Amitriptyline Active 10 MG PO Daily March 23, 2024 12:00am Start: 07-05-2023 End: 11-13-2023 take 1 tablet by mouth once daily amitriptyline (ELAVIL) 10 mg tablet TAKE 1 TABLET BY MOUTH DAILY at 8:00pm 30 tablet 2 11/13/2023 Active aspirin 81 mg chewable tablet (13 sources) Platelet Aggregation Inhibitor, Nonsteroidal Anti-inflammatory Drug Start: 02-13-2023 End: 05-30-2024 aspirin (Aspirin Low Dose) 81 MG chewable tablet Indications: Type 2 diabetes mellitus without complication, without long-term current use of insulin (CMS/[facility]) Chew 1 tablet (81 mg) Daily 30 tablet 5 04/30/2024 05/30/2024 Active take 1 tablet by mouth in the mo rning aspirin 81 MG EC tablet Take 81 mg by mouth in the morning. 0 Active cephalexin 500 mg oral capsule (3 sources) Cephalosporin Antibacterial Start: 06-18-2024 End: 06-18-2024 take 1 dose by mouth once 500 mg, Oral, ONCE, 1 dose, On Mon06/18/24 at 2215 Start: 06-18-2024 End: 06-25-2024 take 1 capsule by mouth twice daily cephALEXin 500 MG capsule Take 1 capsule by mouth 2 times daily for 7 days. 14 capsule 06/18/2024 06/25/2024 Active citalopram 40 mg oral tablet (19 sources) Serotonin Reuptake Inhibitor Start: 04-04-2024 End: 06-28-2024 take 1 tablet by mouth once daily citalopram (CeleXA) 40 MG tablet Indications: Depression, unspecified (CMS/HCC) Take 1 tablet (40 mg) by mouth Daily 30 tablet 5 05/29/2024 Active Start: 03-23-2024 End: 04-25-2014 take 40 mg by mouth once daily Citalopram Active 40 MG PO Daily March 23, 2024 12:00am Comment on above: Take 40 mg by mouth once daily. dapagliflozin 5 mg oral tablet (15 sources) Sodium-Glucose Cotransporter 2 Inhibitor Start: 12-15-19 End: 08-29-19 take 1 tablet by mouth in the morning dapagliflozin (Farxiga) 5 MG Indications: Type 2 diabetes mellitus without complication, without long-term current use of insulin ([facility]) Take 1 tablet (5 mg) by mouth in the morning. 30 tablet 5 07/30/2024 08/29/2024 Active fluticasone propionate 0.05 mg/actuat metered dose nasal spray (18 sources) Corticosteroid Start: 04-04-20 End: 07-27-20 24 take 2 spray(s) nasal route once daily fluticasone (Flonase) 50 MCG/ACT nasal spray Indications: Other seasonal allergic rhinitis Administer 2 sprays into each nostril Daily 16 g 5 06/27/2024 Active Start: 03-23-2024 Fluticasone Pr opionate Active 2 SPRAY INTRANASAL Daily at bedtime March 23, 2024 12:00am Start: 10-08-2021 take 2 spray(s) nasa l route once daily Fluticasone Propionate 50 MCG/ACT 2 sprays Nasally Once a day for 14 day(s) Sep, Active fluticasone prop ionate (FLONASE) 50 mcg/actuation nasal spray fluticasone propionate 50 mcg/actuation nasal spray,suspension Active fluticasone prop ionate (FLONASE) 50 mcg/actuation [...] March 23, 2024 12:00am hydroCHLOROthiazide 25 mg oral tablet (5 sources) Thiazide Diuretic take 1 tablet by mouth in the morning hydroCHLOROthiazide (HYDRODiuril) 25 MG tablet Take 25 mg by mouth in the morning. Active hydroCHLOROthiazide 25 mg / lisinopril 20 mg oral tablet (17 sources) Thiazide Diuretic, Angiotensin Converting Enzyme Inhibitor Start: 03-23-2024 take 1 tablet by mouth once daily lisinopril-hydroCHLORO thiazide 20-25 MG tablet Indications: Essential hypertension, benign (CMS/HCC) , Essential (primary) hypertension (CMS/HCC) Take 1 tablet by mouth Daily 30 tablet 5 04/04/2024 Active lisinopril-hydro CHLOROthiazide (PRINZIDE,ZESTORETIC) 20-25 mg per tablet lisinopril 20 mg-hydrochlorothiazide 25 mg tablet Active Lisinopril-hydro CHLOROthiazide 20-25 MG Oral for 30 Active lisinopril 20 mg oral tablet (5 sources) Angiotensin Converting Enzyme Inhibitor take 1 tablet by mouth in the morning lisinopril 20 MG tablet Take 20 mg by mouth in the morning. Active loratadine 10 mg oral tablet (20 sources) Start: End: take 1 tablet by mouth once daily Allergy Relief 10 MG tablet Indications: Other seasonal allergic rhinitis TAKE 1 TABLET BY MOUTH DAILY 30 tablet 5 06/27/2024 Active take 1 capsule by mouth once brian ly loratadine 10 mg cap Take 10 mg by mouth once daily. Active meloxicam 15 mg oral tablet (20 sources) Nonsteroidal Anti-inflammatory Drug Start: 07-10-2024 take 1 tablet by mouth once daily meloxicam (Mobic) 15 MG tablet Take 15 mg by mouth Daily 07/10/2024 Active Start: 02-13-2023 End: 06-28-2024 take 1 tablet by mouth once daily meloxicam (Mobic) 15 MG tablet Indications: Other chronic pain Take 1 tablet (15 mg) by mouth Daily 30 tablet 5 05/29/2024 06/28/2024 Active take 1 tablet by thang th once daily Meloxicam 15 MG Tab Dispersible Take 1 tablet by mouth daily. Active Mobic Active metFORMIN hydrochloride 1000 mg oral tablet (19 sources) Biguanide Start: 03-23-2024 take 1 tablet by mouth in the morning metFORMIN (Glucophage) 1000 MG tablet Indications: Type 2 diabetes mellitus without complication, without long-term current use of insulin (CMS/HCC) , Type 2 diabetes mellitus without complications (CMS/HCC) Take 1 tablet (1,000 mg) by mouth in the morning and 1 tablet (1,000 mg) in the evening. Take with meals. 60 tablet 5 04/04/2024 Active take 1 tablet by thang th once daily at breakfast metFORMIN (GLUCOPHAGE) 1,000 mg tablet T britni 1,000 mg by mouth daily with breakfast. Active take 2 tablets by mo uth twice daily at mealtime metFORMIN 500 MG tablet Take 2 tablets b y mouth 2 times daily with meals. Active multivitamin (DAILY MULTIPLE) tablet (3 sources) Start: 06-12-2013 take 1 tablet by mouth once daily multivitamin (DAILY MULTIPLE) tablet Indications: Rheumatoid arthritis(714.0) Take 1 tablet by mouth once daily. 0 06/12/2013 Active Comment on above: Take 1 tablet by thang th once daily. pioglitazone 30 mg oral tablet (17 sources) Peroxisome Proliferator Receptor alpha Agonist, Peroxisome Proliferator Receptor gamma Agonist, Thiazolidinedione Start: 04-04-2024 take 1 tablet by mouth in the morning pioglitazone (Actos) 30 MG tablet Indications: Type 2 diabetes mellitus without complications (CMS/HCC) Take 1 tablet (30 mg) by mouth in the morning. 30 tablet 5 04/04/2024 Active Start: 02-13-2023 End: 11-11-2023 take 30 mg by mouth once daily Pioglitazone Active 30 MG PO Daily March 23, 2024 12:00am Actos Active polyethylene glycol 3350 [id number] mg powder for oral solution (1 source) [...] TABLET BY MOUTH DAILY FOR 3 DAYS pregabalin 75 mg oral capsule (7 sources) Start: 06-12-2024 pregabalin (Ly chasity) 75 MG capsule Take 75 mg by mouth in the morning and 75 mg at noon and 75 mg in the evening. 06/12/2024 Active End: 11-13-2024 take 1 capsule by mouth once daily at bedtime pregabalin (LYRICA) 75 mg capsule Take 75 mg by mouth daily at bedtime. 07/10/2024 Discontinued (Course of therapy completed) rOPINIRole 0.25 mg oral tablet (7 sources) Nonergot Dopamine Agonist Start: 06-12-2024 End: 07-10-2024 rOPINIRole (Requip) 0.25 MG tablet Take 0.25 mg by mouth in the morning and 0.25 mg at noon and 0.25 mg in the evening. 06/12/2024 Active simvastatin 20 mg oral tablet (16 sources) HMG-CoA Reductase Inhibitor Start: 02-13-2023 End: 06-28-2024 simvastatin (Zocor) 20 MG tablet Indications: Type 2 diabetes mellitus without complication, without long-term current use of insulin (CMS/HCC) , Type 2 diabetes mellitus without complications (CMS/HCC) Take 1 tablet (20 mg) by mouth at bedtime 30 tablet 5 05/29/2024 Active tiZANidine 4 mg oral tablet (19 sources) Central alpha-2 Adrenergic Agonist Start: 02-13-2023 End: 06-12-2024 tiZANidine (Zanaflex) 4 MG tablet Indications: Other chronic pain Take 1 tablet (4 mg) by mouth as needed at bedtime for muscle spasms 30 tablet 5 04/04/2024 Active take 2 tablets by mo [facility] three times daily Tizanidine 2 MG tablet Take 2 tablets by mouth 3 times daily. Active Completed/Discontinued Medications Medication Drug Class(es) Dates Sig (Normalized) Sig (Original) bacitracin 0.5 unt/mg topical ointment (1 source) Start: 4 End: 4 1 Application, Topical, ONCE, 1 dose, On Mon06/18/24 at 2215, Apply to right great toe canagliflozin (1 source) Sodium-Glucose Cotransporter 2 Inhibitor [...] then take 8 tab once a week OTC NUTRITIONAL SUPPLEMENT (1 source) Start: 3 [...] Active Problems Problem Classification Problem Date Documented Date Episodic/Chronic Administrative/social admission (1 source) Financial problem; Translations: [Problem related to housing and economic circumstances, unspecified] 07-11-2024 Episodic Diabetes mellitus with complications (2 sources) Diabetic hand syndrome; 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] Onset: 04-17-2024 06-12-2024 Chronic Diabetes mellitus without complication (20 sources) Type 2 diabetes mellitus without complications; Translations: [Type 2 diabetes mellitus without complication] Onset: 01-11-2022 Chronic Diseases of white blood cells (14 sources) Leukocytosis; Translations: [Elevated white blood cell count, unspecified] Onset: 04-04-2024 03-30-2024 Chronic E Codes: Fall (7 sources) Fall on same level from slipping, tripping and stumbling with subsequent striking against other sharp object, initial encounter; Translations: [Fall] Onset: 04-25-2022 03-30-2024 Episodic Essential hypertension (20 sources) Essential (primary) hypertension; Translations: [Benign essential hypertension] Onset: 04-25-2022 08-16-2023 Chronic Immunizations and screening for infectious disease (2 sources) Contact with and (suspected) exposure to other viral communicable diseases; Translations: [Other specified abnormal immunological findings in serum] Onset: 10-08-2021 Resolved: 10-08-2021 Episodic Malaise and fatigue (13 sources) Asthenia; Translations: [Weakness] Onset: 06-22-2024 06-22-2024 Episodic Mood disorders (19 sources) Depressive disorder; Translations: [Depression] Onset: 08-16-2023 08-16-2023 Chronic Mood disorders (1 source) Mood disorders; Translations: [Depression, unspecified] Onset: 03-23-2024 Nutritional deficiencies (6 sources) Undernutrition; Translations: [Mild protein-calorie malnutrition] Onset: 06-25-2024 06-25-2024 Chronic Osteoarthritis (7 sources) Osteoarthritis of joint of bilateral hands; Translations: [Primary osteoarthritis, right hand] Onset: 06-12-2024 06-12-2024 Chronic Other aftercare (1 source) snf (current) use of oral hypoglycemic drugs; Translations: [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] Onset: 04-25-2022 Episodic Other aftercare (1 source) snf (current) use of aspirin; Translations: [ALF CURRENT USE OF ASPIRIN] Onset: 04-25-2022 Episodic Other aftercare (1 source) 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; Translations: [OTH SENIOR SQL SERVER DEVELOPER CURRENT DRUG THERAPY] Onset: 04-25-2022 Episodic Other connective tissue disease (2 sources) Paraparesis; Translations: [Other symptoms and signs involving the musculoskeletal system] 03-30-2024 Episodic Other connective tissue disease (2 sources) Bilateral weakness of upper limbs; Translations: [Other symptoms and signs involving the musculoskeletal system] 03-30-2024 Episodic Other connective tissue disease (1 source) Disorder of muscle 06-12-2024 Episodic Other injuries and conditions due to external causes (3 sources) Unspecified injury of right elbow, initial encounter; Translations: [UNSPECIFIED INJURY RT ELBOW INITIAL] Onset: 04-23-2022 Episodic Other injuries and conditions due to external causes (1 source) Injury of toe of right foot; Translations: [Unspecified injury of right foot, initial encounter] 06-18-2024 Episodic Other injuries and conditions due to external causes (2 sources) Unspecified injury of right foot, initial encounter; Translations: [Unspecified injury of right foot, initial encounter] Onset: 06-18-2024 Episodic Other nervous system disorders (1 source) Chronic pain; Translations: [Other chronic pain] 05-29-2024 Chronic Other nervous system disorders (5 sources) Disorder of muscle; Translations: [Myopathy, unspecified] Onset: 06-12-2024 06-12-2024 Chronic Other nervous system disorders (1 source) Myopathy, unspecified; Translations: [Myopathy, unspecified] Onset: 06-12-2024 Chronic Other nervous system disorders (1 source) Brachial plexus disorder; Translations: [Brachial plexus disorders] 07-10-2024 Chronic Other nervous system disorders (1 source) Brachial plexus disorders; Translations: [Brachial plexopathy] Onset: 07-10-2024 Chronic Other nervous system disorders (4 sources) Muscle fasciculation; Translations: [Fasciculation] Onset: 07-22-2024 03-30-2024 Episodic Other nervous system disorders (2 sources) Fasciculation; Translations: [Abnormal involuntary movements] Onset: 03-30-2024 03-30-2024 Episodic Other nervous system disorders (2 sources) Paresthesia; Translations: [Paresthesia of skin] Onset: 06-22-2024 06-22-2024 Episodic Other nervous system disorders (1 source) Paresthesia of skin; Translations: [Paresthesia of skin] Onset: 06-22-2024 Episodic Other nutritional; endocrine; and metabolic disorders (1 source) Severe obesity; Translations: [Morbid (severe) obesity due to excess calories] Onset: 08-16-2023 08-16-2023 Chronic Other nutritional; endocrine; and metabolic disorders (10 sources) Obesity caused by energy imbalance; Translations: [Morbid (severe) obesity due to excess calories] Onset: 08-16-2023 04-04-2024 Chronic Other nutritional; endocrine; and metabolic disorders (8 sources) Obese class II; Translations: [Obesity, Class II, BMI 35-39.9] Onset: 07-10-2024 07-10-2024 Chronic Other upper respiratory disease (1 source) Seasonal allergic rhinitis; Translations: [Other seasonal allergic rhinitis] 06-27-2024 Chronic Residual codes; unclassified (10 sources) Obstructive sleep apnea syndrome; Translations: [Obstructive sleep apnea (adult) (pediatric)] Onset: 11-16-2023 11-16-2023 Chronic Rheumatoid arthritis and related disease (19 sources) Rheumatoid arthritis, unspecified; Translations: [Flare of rheumatoid arthritis] Onset: 06-12-2013 06-12-2013 Chronic Spondylosis; intervertebral disc disorders; other back problems (10 sources) Degeneration of cervical intervertebral disc; Translations: [Other cervical disc degeneration, unspecified cervical region] Onset: 02-07-2024 02-07-2024 Chronic Superficial injury; contusion (1 source) Contusion of right elbow, initial encounter; Translations: [CONTUSION RIGHT ELBOW INITIAL ENC] Onset: 04-25-2022 Episodic Systemic lupus erythematosus and connective tissue disorders (15 sources) Autoimmune disease; Translations: [Systemic involvement of connective tissue, unspecified] Onset: 06-12-2013 08-16-2023 Chronic Unclassified (1 source) Obesity, Class II, BMI 35-39.9; Translations: [Obesity, Class II, BMI 35-39.9] Onset: 07-10-2024 Past or Other Problems Problem Classification Problem Date Documented Da te Episodic/Chronic Diseases of mouth; excluding dental (10 sources) Xerostomia; Translations: [Disturbances of salivary secretion] Onset: 11-16-2023 11-16-2023 Episodic Genitourinary symptoms and ill-defined conditions (10 sources) Asymptomatic microscopic hematuria; Translations: [Asymptomatic microscopic hematuria] Onset: 02-19-2024 02-19-2024 Episodic Other connective tissue disease (17 sources) Muscle weakness of upper limb; Translations: [Other symptoms and signs involving the musculoskeletal system] Onset: 04-04-2024 03-23-2024 Episodic Other connective tissue disease (20 sources) Other symptoms and signs involving the musculoskeletal system; Translations: [Other musculoskeletal symptoms referable to limbs] Onset: 03-30-2024 03-25-2024 Episodic Other gastrointestinal disorders (11 sources) Constipation; Translations: [Constipation, unspecified] Onset: 08-16-2023 08-16-2023 Episodic Other non-traumatic joint disorders (14 sources) Joint pain; Translations: [Pain in unspecified joint] Onset: 02-19-2013 02-19-2013 Episodic Other non-traumatic joint disorders (1 source) Pain in unspecified joint; Translations: [Arthralgia, unspecified joint] Onset: 02-19-2013 Episodic Other nutritional; endocrine; and metabolic disorders (10 sources) Body mass index 40+ - severely obese; Translations: [Body mass index (BMI) 40.0-44.9, adult] Onset: 04-04-2024 Resolved: 07-22-2024 04-04-2024 Chronic Other screening for suspected conditions (not mental disorders or infectious disease) (11 sources) Other specified abnormal findings of blood chemistry; Translations: [Patient encounter status] Onset: 05-18-2021 02-21-2024 Episodic Other upper respiratory infections (1 source) Acute sinusitis, unspecified Onset: 10-08-2021 Resolved: 10-08-2021 Episodic Residual codes; unclassified (11 sources) Insomnia; Translations: [Insomnia, unspecified] Onset: 08-16-2023 08-16-2023 Episodic Unclassified (1 source) Osteoarthritis of joint of bilateral hands 06-12-2024 Unclassified (1 source) Onset: 06-22-2024 06-22-2024 Results Test Name Value Interpretation Reference Range Facility [facility] 07-10-2024 [facility]OV Office Visit ([facility] ) -- BHUMIKA UMANA ([id number]) 1975 M Date Time Provider Department 07/10/24 9:30 AM DAREK VALDOVINOS [facility] During your visit today, we recorded the following information about you: Pulse Blood pressure Weight Height 78/minute 139/79 144.8 kg 1.905 m Keith Leone MD 07/10/2024 1:12 PM Signed [facility] New Patient Evaluation Consulting Provider: Errol Sanford [facility] Eulalia Bartholomew [address] [address] Chief Complaint/Issues: Bhumika Umana is a 48 year old male with hx of ?RA, T2DM, past tobacco use, obesity, seen in the [facility] for: Progressive BL UE weakness and numbness Intermittent LE weakness HPI: Patient states symptoms started in December 2023 with numbness in his fingertips BL. 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 His right hand was also weak but less so. About a month later, he noticed that his hands were more weak because he was unable to open the door. Progressively since onset, he has had a gradual spread of weakness from distal to proximal UE; he also has had progression of numbness up his arms BL. Overall, he feels his left UE is worse than his right. He has also noticed muscle twitches under the skin that are visible and that his arms are smaller than they used to be. He developed leg weakness in May. He had 2 falls where his right leg gave out. However he feels both legs are weak. He has had a few years of numbness in his toes but no clear progression. He notices his arms fatigue after repeated use. He can no longer lift his arms above his head. No bowel or bladder incontinence, no orthostatic symptoms. He has constipation which is chronic. He has improved his glycemic control over the past year. He has lost about 40lbs of weight in the past year but unclear if unintentional or not. He has had years of nightsweats. No dysphagia, no orthopnea, no diplopia. He also notes a rash in over his nose bridge as well as a scaly rash on his chest. He was evaluated at OSH in February 2024 for these symptoms with MRI brain reportedly unremarkable and MRI spine showing multilevel disk bulge but no cord signal change, edema, enhancement. CSF studies showed: TNC 3, RBC 3051, glucose 72, protein 84, no oligoclonal bands, IgG index 0.6, albumin 46, MBP 2.7, CSF copper and MMA within normal limits. Serum studies include Copper, zinc, thiamine, HIV, B12 and MMA, RAVINDER positive, A1C 6.6. (05/2024) (was 8.1 01/2023) Of note, he was diagnosed with RA in his early 20's. He was on MTX and Humiera but stopped it after he had celluliutis. He re-established with a mainstreaming facilitator locally who felt he did not have RA. 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 He smoked from age [age] years. He smoked 1/2 to one pack per day. No personal hx of cancer, his mom had colon cancer. He had a colonoscopy in the past year which was unremarkable. General Examination: BP 139/79 Pulse 78 Ht 190.5 cm (6' 3 ) Wt (!) 144.8 kg (319 lb 3.6 oz) BMI 39.90 kg/m? General: appears comfortable in no acute distress HEENT: Normocephalic/atraumatic, sclera non-icteric Lungs: unlabored respiratory effort on RA Extremities: warm and well perfused, no significant ecchymosis or edema Skin: warm, dry; no lesions Neurological: I: Deferred examination II: Intact to finger counting in all 4 quadrants III/IV/: Extraocular movements intact throughout, no nystagmus V: Facial sensation intact and equal bilaterally VII: Facial movements symmetric; no facial droop or ptosis VIII: Hearing intact to finger rub bilaterally IX, X: palate elevates symmetrically, gag not examined XI: Shoulder shrug and sternocleidomastoid strength full bilaterally XII: Tongue protrudes midline Language: normal fluency and stacey, no dysarthria, able to follow commands and name, repetition intact Motor: Inspection: Atrophy of proximal UE weakness BL, significant fasciculations of BL UE, No tremor at rest. Tone: Unremarkable throughout all four extremities. Muscle (Innervation) Right Left Deltoid (C5-6, Axillary n.) 2/5 2/5 Biceps (C5-6, Musculocutaneous n.) 2/5 2/5 Triceps (C6-8, Radial n.) 5/5 5/5 Wrist extensors (C6-8, Radial n.) 2/5 2/5 Wrist flexors (C6-7, Median/Ulnar n.) 4-/5 4-/5 Digit flexors (C7-T1) 4+/5 4+/5 Finger extensors (C8, T1) 2/5 2/5 Abductor pollicis brevis (C8, T1) 4+/5 4+/5 Hip Flexors 5/5 5/5 Hip Extensors 5/5 5/5 Hip Abductors 5/5 5/5 Hip Adductors 5/5 5/5 Knee Flexion 5/5 5/5 Knee Extension 5/5 5/5 Foot Dorsiflexion 5/5 5/5 Foot Plantarflexion 5/5 5/5 Ankle Eversion 5/5 5/5 Ankle Inversion 5/5 5/5 Sensation: Light touch: intact Dorsal Column Vibration: intact in great toe and natan (more content not included)... [facility] 06-26-2024 [facility] HNO ID: [id number] Author: ROCIO ANAYA RT(R) Service: Radiology Author Type: Pump Stitcher Type: Allied Health Filed: 06/26/2024 07:24 Note Text: Radiology Service Progress Note PATIENT NAME: Bhumika Umana DATE OF SERVICE: June 26, 2024 TIME: 7:23 AM PATIENT IDENTITY VERIFICATION COMPLETED USING TWO (2) IDENTIFIERS: Name and Date of confirmed by patient verbally and Name and Date of confirmed by identification band. FALL SCREENING: Has the patient had 2 falls in the last year or 1 fall with injury or currently using an Ambulatory Assistive Device (Walker, Cane, Wheelchair, Crutches, etc.)? Inpatient: Screened on floor PATIENT GENDER DATA: Male PATIENT RELEVANT IMPLANT DATA REVIEWED: Yes PATIENT PRESENTS WITH AN IMPLANTABLE OR ATTACHED FIBERGLASS AUTOBODY REPAIRER: No RADIOLOGY DEPARTMENT: MR; Exam(s) Completed: Spine: Cervical spine PERIPHERAL IV DATA: Inpatient: see LDA documentation SIGNED BY: RT Gelacio(R) June 26, 2024 7:23 AM Normal [facility] CBC panel Auto (Bld)on 06-26 Erythrocyte distribution width (RBC) [Ratio] 12.1 % Normal 11.5-15.0 [facility] Comment on above: Order Comment: Speci men Type: BLOOD SPECIMEN Ordering Facility: [facility] Address: [address] [place] [address] Performed By: #### L [id number] #### [facility] CLIA [id number] [address] [place] [address] [place] Hematocrit (Bld) [Volume fraction] 42.5 % Normal 39.0-51.0 [facility] Comment on above: Order Comment: Speci men Type: BLOOD SPECIMEN Ordering Facility: [facility] Address: [address] [place] [address] Performed By: #### L [id number] #### [facility] CLIA [id number] [address] [place] [address] [place] Hemoglobin (Bld) [Mass/Vol] 14.2 g/dL Normal 13.0-17.0 [facility] Comment on above: Order Comment: Speci men Type: BLOOD SPECIMEN Ordering Facility: [facility] Address: [address] [place] [address] Performed By: #### L [id number] #### [facility] CLIA [id number] [address] [place] [address] [place] MCH (RBC) [Entitic mass] 30.0 pg Normal 26.0-34.0 [facility] Comment on above: Order Comment: Speci men Type: BLOOD SPECIMEN Ordering Facility: [facility] Address: [address] [place] [address] Performed By: #### L [id number] #### [facility] CLIA [id number] [address] [place] [address] [place] MCHC (RBC) [Mass/Vol] 33.4 g/dL Normal 30.5-36.0 [facility] Comment on above: Order Comment: Speci men Type: BLOOD SPECIMEN Ordering Facility: [facility] Address: [address] [place] [address] Performed By: #### L [id number] #### [facility] CLIA [id number] [address] [place] [address] [place] MCV (RBC) [Entitic vol] 89.7 fL Normal 80.0-100.0 [facility] Comment on above: Order Comment: Speci men Type: BLOOD SPECIMEN Ordering Facility: [facility] Address: [address] [place] [address] Performed By: #### L [id number] #### [facility] CLIA [id number] [address] [place] [address] [place] Nucleated RBC (Bld) [#/Vol] 10*3/uL Normal <0.01 [facility] Comment on above: Order Comment: Speci men Type: BLOOD SPECIMEN Ordering Facility: [facility] Address: [address] [place], [place] [id number] Performed By: #### L [id number] #### [facility] CLIA [id number] [address] [place] [address] [place] Platelet mean volume (Bld) [Entitic vol] 9.2 fL Normal 9.0-12.7 [facility] Comment on above: Order Comment: Speci men Type: BLOOD SPECIMEN Ordering Facility: [facility] Address: [address] [place] [address] Performed By: #### L [id number] #### [facility] CLIA [id number] [address] [place] [address] [place] Platelets (Bld) [#/Vol] 304 10*3/uL Normal 150-400 [facility] Comment on above: Order Comment: Speci men Type: BLOOD SPECIMEN Ordering Facility: [facility] Address: [address] [place] [address] Performed By: #### L [id number] #### [facility] CLIA [id number] [address] [place] [address] [place] RBC (Bld) [#/Vol] 4.74 10*6/uL Normal 4.20-6.[address] [facility] Comment on above: Order Comment: Speci men Type: BLOOD SPECIMEN Ordering Facility: [facility] Address: [address] [place] [address] Performed By: #### L [id number] #### [facility] CLIA [id number] [address] [place] [address] [place] WBC (Bld) [#/Vol] 8.67 10*3/uL Normal 3.70-11.[address] [facility] Comment on above: Order Comment: Speci men Type: BLOOD SPECIMEN Ordering Facility: [facility] Address: [address] [place] [address] Performed By: #### L [id number] #### [facility] CLIA [id number] [address] [place] [id number] [place] [address] [place] [facility] CBC PNL BLD AUTOon 06-26 [facility] NRBC # BLD AUTO <0.01 NINF [facility] PLATELET # BLD AUTO 304 [facility] PMV BLD AUTO 9.2 fL 9.0 - 12.7 fL [facility] WBC # BLD AUTO 8.67 [facility] Erythrocyte distribution width (RBC) [Ratio] 12.1 % 11.5 - 15.0 % [facility] Hematocrit (Bld) [Volume fraction] 42.5 % 39.0 - 51.0 % [facility] Hemoglobin (Bld) [Mass/Vol] 14.2 g/dL 13.0 - 17.0 g/dL [facility] MCH (RBC) [Entitic mass] 30 pg 26.0 - 34.0 pg [facility] MCHC (RBC) [Mass/Vol] 33.4 g/dL 30.5 - 36.0 g/dL [facility] MCV (RBC) [Entitic vol] 89.7 fL 80.0 - 100.0 fL [facility] RBC (Bld) [#/Vol] 4.74 10*6/uL 4.20 - 6.0 0 m/uL [facility] Specimen Type: BLOOD SPECIMEN Ordering Facility: [facility] Address: [address] [place], [place] [address] Original Ordering Provider: DI RICHARDISYNC [facility] CNDSon 06-26-2024 [facility] HNO ID: [id number] Author: LELAND DANG MD Service: General Internal Medicine Author Type: Resident Type: Discharge Summary Filed: 06/26/2024 17:28 Note Text: -- Attestation signed by Leland Dang MD at 06/26/2024 5:28 PM Attending Note I evaluated the patient and personally participated in the wisdom components. I agree with the resident's findings and plan as documented and have discussed the case and management of the patient's care with the resident. I have performed the [id number] and relevant services for a total of >30 minutes. Signature: Leland Dang MD Date: 06/26/2024 Time: 5:27 PM -- DISCHARGE SUMMARY PATIENT NAME: Bhumika Umana ADMISSION DATE: 06/24/2024 DISCHARGE DATE: 06/26/2024 ATTENDING PHYSICIAN: Leland Dang* Code Status: Full Code PCP: Cecy Hernandez, HERIBERTO, DINKEY ENGINE MECHANIC Highest Readmission Risk Score: 10 The 30 day readmissions risk score is derived from an internally validated risk model which evaluates patient level characteristics, utilization history, medication orders and lab results up until the day of discharge. Patients with a score of 40 or above are considered highest risk for readmission. Specific patient level drivers will be listed at the bottom of the summary. TRANSITIONS OF CARE CRITICAL ISSUES: WISDOM MEDICATION CHANGES: None FOLLOW UP APPOINTMENTS: Neurology LABS AND PROCEDURES PENDING AT DISCHARGE: None REASON FOR HOSPITALIZATION/PRINCIPAL DIAGNOSES: Weakness in hand for 5 months HOSPITAL PROBLEMS: Principal Problem: Weakness (POA: Yes) Active Problems: Malnutrition of mild degree (HCC) (POA: Unknown) Resolved Problems: * No resolved hospital problems. * Obesity Class II (BMI 35-39.9) HOSPITAL COURSE: This is a 48 year old male Bhumika Umana is a 48 year old male with a pmh of T2DM, HTN, RA previously on humira for 1.5 years stopped in 2019, osteoarthritis of both hands, depression, EDDI presenting today for a second opinion regarding his bilateral upper extremity weakness and numbness. Patient states everything started in December 2023, where he noticed numbness in his fingers bilaterally. He also experienced profound weakness in bilateral handgrip that has now progressed more proximally. He also endorses transient weakness in bilateral lower extremities that has caused him to fall multiple times over the past 5 months. Recently, he fell and hit his shoulder and head against the wall. 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 Some days are more challenging than others, but overall, his condition has been gradually worsening. The bilateral weakness in the hand and biceps are constant and progressive as he describes (with some fluctuations), but the weakness in the legs are described as more acute with close to complete recovery after few hours of the weakness and fall. He most recently fell two days ago without any LOC and was seen at the local ED who recommended he follow up with neurology. He denies muscle pain or loss of sensation. Associated with the weakness, he has experienced intermittent night sweats during these months and has noticed some unintentional weight loss (dropping from 360 lbs in July 2023 to around 330 lbs), giving him the feeling that he is losing muscle. He also has a rash on his chest, consisting of several flat spots a few centimeters in diameter. The rash is itchy but not painful to the touch. It developed most recently a few days ago, but he has experienced similar symptoms intermittently over the past few years without any identifiable trigger. 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 During hospitalization, neurology was consulted and cervical MRI was ordered without major new findings compared to cervical MRI done in January 2024. Problems addressed during hospitalization: #Bilateral weakness and numbness (mostly hands) - Around 5 months of progressive weakness and numbness in hands - Intermittent weakness in legs - Symmetric symptoms - Some systemic symptoms, including weight loss and episodes of sweating (temperature not measured) - OSH workup: - negative VIJAY panel, normal complement (03/2024) - normal LDH and normal CK (05/2024) - RAVINDER 01/2023: 1:160 - Neurology consulted: plan for OUTPATIENT investigation Discharge plan: - Follow-up with Neurology #Rheumatoid arthritis (with negative inflammatory markers) - Off treatment since 2019: Was on Neris for 1.5 years before stopping due to hand infection - Current meds: NSAIDs PRN - Rheumatoid factor 01/2023: negative - Anti-CCP 01/2023: (more content not included)... Normal [facility] Comprehensive metabolic 2000 panelon 06-26-2024 Albumin [Mass/Vol] 4.2 g/dL Normal 3.9-4.9 [facility] Comment on above: Order Comment: Speci men Type: BLOOD SPECIMENOrdering Facility: [facility] Address: [address] [place] [address] Performed By: #### 2 885-2, 52382-2, 2284-8, 12417-2 ####[facility] [id number] [place] [address] [place] ALP [Catalytic activity/Vol] 72 U/L Normal 38-113 [facility] Comment on above: Order Comment: Speci men Type: BLOOD SPECIMENOrdering Facility: [facility] Address: [address] [place] [address] Performed By: #### 2 885-2, 11179-0, 2283-8, 97392-1 ####[facility] [id number] [place] [address] [place] ALT [Catalytic activity/Vol] 24 U/L Normal 10-54 [facility] Comment on above: Order Comment: Speci men Type: BLOOD SPECIMENOrdering Facility: [facility] Address: [address] [place] [address] Performed By: #### 2 885-2, 01426-7, 2283-8, 48993-7 ####[facility] [id number] [address] [address] [place] Anion gap [Moles/Vol] 10 mmol/L Normal 8-15 [facility] Comment on above: Order Comment: Speci men Type: BLOOD SPECIMENOrdering Facility: [facility] Address: [address] [place] [address] Performed By: #### 2 885-2, 53024-5, 228-8, 89366-7 ####[facility]IA [id number] [place] [address] [place] AST [Catalytic activity/Vol] 19 U/L Normal 14-40 [facility] Comment on above: Order Comment: Speci men Type: BLOOD SPECIMENOrdering Facility: [facility] Address: [address] [place] [address] Performed By: #### 2 885-2, 74984-8, 2284-8, 08434-5 ####[facility] [id number] [place] [address] [place] Bilirubin [Mass/Vol] 0.6 mg/dL Normal 0.2-1.3 [facility] Comment on above: Order Comment: Speci men Type: BLOOD SPECIMENOrdering Facility: [facility] Address: [address] [place] [address] Performed By: #### 2 885-2, 22891-2, 2283-8, 08141-3 ####[facility] [id number] [place] [address] [place] Calcium [Mass/Vol] 9.3 mg/dL Normal 8.5-10.2 [facility] Comment on above: Order Comment: Speci men Type: BLOOD SPECIMENOrdering Facility: [facility] Address: [address] [place] [address] Performed By: #### 2 885-2, 63732-9, 2283-8, 83765-9 ####[facility] [id number] [place] [address] [place] Chloride [Moles/Vol] 104 mmol/L Normal 98-107 [facility] Comment on above: Order Comment: Speci men Type: BLOOD SPECIMENOrdering Facility: [facility] Address: [address] [place] [address] Performed By: #### 2 885-2, 74746-6, 2284-8, 29762-8 ####[facility] [id number] [place] [address] [place] CO2 [Moles/Vol] 27 mmol/L Normal 22-30 [facility] Comment on above: Order Comment: Speci men Type: BLOOD SPECIMENOrdering Facility: [facility] Address: [address] [place] [address] Performed By: #### 2 885-2, 91699-5, 2283-8, 35907-6 ####[facility]IA [id number] [place] [address] [place] Creatinine [Mass/Vol] 0.65 mg/dL Low 0.73-1.22 [facility] Comment on above: Order Comment: Speci men Type: BLOOD SPECIMENOrdering Facility: [facility] Address: [address] [place] [address] Performed By: #### 2 885-2, 07456-2, 8, ####[facility]IA [id number] [place] [address] [place] Creatinine and Glomerular filtration rate.predicted panel (S/P/Bld) 118 mL/min/1.73m??? Normal >=60 [facility] Comment on above: Order Comment: Speci men Type: BLOOD SPECIMENOrdering Facility: [facility] Address: [address] [place] [address] Result Comment: Alexa mated Glomerular Filtration Rate (eGFR) is calculated using the 2020 CKD-EPI creatinine equation. This equation utilizes serum creatinine, sex, and age as parameters. The creatinine assay has traceable calibration to isotope dilution-mass spectrometry. Refer to KDIGO guidelines for clinical interpretation. In patients with unstable renal function, e.g. those with acute kidney injury, the eGFR may not accurately reflect actual GFR. Performed By: #### 2 885-2, 01000-4, 2283-8, 21032-1 ####[facility] LABCLIA [id number] [place] [id number] [place] Glucose [Mass/Vol] 94 mg/dL Normal 74-99 [facility] Comment on above: Order Comment: Speci men Type: BLOOD SPECIMENOrdering Facility: [facility] Address: [address] [place] [address] Result Comment: The [place] [employer] Association (ADA) provides guidance for cutoff values for fasting glucose and random glucose. The ADA defines fasting as no caloric intake for at least 8 hours. Fasting plasma glucose results between 100 to 125 mg/dL indicate increased risk for diabetes (prediabetes). Fasting plasma glucose results greater than or equal to 126 mg/dL meet the criteria for diagnosis of diabetes. In the absence of unequivocal hyperglycemia, results should be confirmed by repeat testing. In a patient with classic symptoms of hyperglycemia or hyperglycemic crisis, random plasma glucose results greater than or equal to 200 mg/dL meet the criteria for diagnosis of diabetes. Reference: Standards of Medical Care in Diabetes 2016, [place] [employer]. Diabetes Care. 2016.39(Suppl 1). Performed By: #### 2 885-2, 84532-4, 2283-8, ####[facility] LABCLIA [id number] [place] [address] [place] Potassium [Moles/Vol] 3.9 mmol/L Normal 3.7-5.1 [facility] Comment on above: Order Comment: Speci men Type: BLOOD SPECIMENOrdering Facility: [facility] Address: [address] [place] [address] Performed By: #### 2 885-2, 24208-9, 2284-03, ####[facility]CLIA [id number] [place] [id number] [place] Sodium [Moles/Vol] 141 mmol/L Normal 136-144 [facility] Comment on above: Order Comment: Speci men Type: BLOOD SPECIMENOrdering Facility: [facility] Address: [address] [place] [address] Performed By: #### 2 885-2, 06928-9, 2283-8, 24769-6 ####[facility]CLIA [id number] [place] [id number] [place] Urea nitrogen [Mass/Vol] 10 mg/dL Normal 9-24 [facility] Comment on above: Order Comment: Speci men Type: BLOOD SPECIMENOrdering Facility: [facility] Address: [address] [place], [place] [address] Performed By: #### 2 885-2, 36601-0, 2284-8, 81909-6 ####[facility]CLIA [id number] [place] [id number] [place] Folate SerPl-mCncon 06-26-20 Folate [Mass/Vol] 11.6 ng/mL Normal >4.7 [facility] Comment on above: Order Comment: Speci men Type: BLOOD SPECIMENOrdering Facility: [facility] Address: [address] [place] [address] Performed By: #### 2 885-2, 89926-7, 2284-8, 81400-5 ####[facility]CLIA [id number] [place] [id number] [place] MRI CERVICAL SPINE WO/W IVCO Non 06-26-2024 MRI CERVICAL SPINE WO/W IVCON * * *Final Report* * * DATE OF EXAM: Jun 26 2024 7:31AM QBM [id number] - MRI CERVICAL SPINE WO/W IVCON / PROCEDURE REASON: Upper extremity weakness * * * * Physician Interpretation * * * * EXAMINATION: MRI CERVICAL SPINE WO/W IVCON CLINICAL HISTORY: Upper extremity weakness. A 48-year-old male bilateral weakness and numbness most pronounced along the hands. TECHNIQUE: Routine cervical spine MR protocol without and with intravenous gadolinium. MQ: [id number] COMPARISON: None. RESULT: Counting reference: Craniocervical junction. Anatomic Variants: None. Localizer images: No additional findings. Alignment: Alignment is near anatomic. Marginal anterolisthesis of C3 over C4 Craniocervical junction: Craniocervical junction is normal. Cord: The visualized cord is within normal limits of signal intensity and morphology. No abnormal intrathecal enhancement Bone marrow signal/fracture: No evidence of pathologic marrow infiltration. No evidence of prior fracture. Presumed posterior longitudinal ligament ossification along the upper/mid cervical spine. Cervical soft tissues: The paraspinal soft tissues are within normal limits. C2-C3: Disc osteophyte complex effacing the ventral CSF space contributing to overall mild canal stenosis. Neuroforamina are patent. C3-C4: Marginal anterolisthesis of C3 over C4. Disc osteophyte complex indenting on the ventral thecal sac contributing to overall moderate to severe canal stenosis. Neuroforamina are patent. C4-C5: Disc osteophyte complex effacing the ventral CSF space contributing to overall mild canal stenosis. Moderate right and mild to moderate left foraminal stenosis due to uncovertebral/facet joint arthropathy.. C5-C6: Disc osteophyte complex effacing the ventral CSF space contributing to overall mild canal stenosis. Facet hypertrophy contributing to bilateral moderate foraminal stenosis. C6-C7: Canal and foramina are patent. C7-T1: Canal and foramina are patent. IMPRESSION: Multilevel degenerative changes through the cervical spine as detailed above causing moderate to severe spinal canal stenosis at C3-C4 indenting the ventral aspect of spinal canal. No discrete cord signal abnormality. Anatomic Variant: None. Assume 7 cervical vertebrae with counting from the craniocervical junction. Distribution Operations Supervisor: PSCB Transcribe Date/Time: Jun 26 2024 7:33A Dictated by : SUDHIR PUENTE MD This examination was interpreted and the report reviewed and electronically signed by: BRIDGET LIND MD on Jun 26 2024 8:09AM EST [id number] Normal [facility] Magnesium SerPl-mCncon 06-26 Magnesium [Mass/Vol] 2.0 mg/dL Normal 1.7-2.3 [facility] Comment on above: Order Comment: Speci men Type: BLOOD SPECIMENOrdering Facility: [facility] Address: [address] [place] [address] Performed By: #### 2 885-2, 93758-7, 2284-8, 34162-4 ####[facility] [id number] [facility] [id number] [address] [place] NURSING PROGon 06-26-2024 NURSING PROG HNO ID: [id number] Author: SUSANA CAST RN Service: Radiology Author Type: Registered Nurse Type: Nursing Progress Note Filed: 06/26/2024 06:38 Note Text: Radiology Service Progress Note DATE OF SERVICE: June 26, 2024 TIME: 6:38 AM PATIENT WEIGHT: 313LBS PATIENT IDENTITY VERIFICATION COMPLETED USING TWO (2) STANDARD IDENTIFIERS: Name and Date of confirmed by patient verbally and Name and Date of confirmed by identification band. FALL SCREENING: Has the patient had 2 falls in the last year or 1 fall with injury or currently using an Ambulatory Assistive Device (Walker, Cane, Wheelchair, Crutches, etc.)? Inpatient: Screened on floor PATIENT GENDER DATA: Male ALLERGIES: Reviewed and unchanged CONTRAST ALLERGY: No EXAM: MRI - CONTRAST TYPE: GROUP II IV SITE: Inpatient - refer to LDA documentation IV SITE APPEARANCE: Clean,Dry and Intact SIGNATURE: Susana Cast RN PATIENT NAME: Bhumika Umana DATE: June 26, 2024 TIME: 6:38 AM Normal [facility] PROTEIN ELECTROPHORESIS SERU M WITH ELIN (P)on 06-26-2024 Albumin [Mass/Vol] 3.83 g/dL Normal 3.43-5.41 [facility] Comment on above: Order Comment: Speci men Type: BLOOD SPECIMEN Ordering Facility: [facility] Address: [address] [place] [address] Performed By: #### L [id number] #### [facility] CLIA [id number] [address] [place] [address] [place] Alpha 1 globulin Elph [Mass/Vol] 0.26 g/dL Normal 0.18-0.43 [facility] Comment on above: Order Comment: Speci men Type: BLOOD SPECIMEN Ordering Facility: [facility] Address: [address] [place] [address] Performed By: #### L [id number] #### [facility] CLIA [id number] [address] [place] [address] [place] Alpha 2 globulin Elph [Mass/Vol] 0.62 g/dL Normal 0.42-0.98 [facility] Comment on above: Order Comment: Speci men Type: BLOOD SPECIMEN Ordering Facility: [facility] Address: [address] [place] [address] Performed By: #### L [id number] #### [facility] CLIA [id number] [address] [place] [address] [place] Beta globulin Elph [Mass/Vol] 0.76 g/dL Normal 0.61-1.17 [facility] Comment on above: Order Comment: Speci men Type: BLOOD SPECIMEN Ordering Facility: [facility] Address: [address] [place] [address] Performed By: #### L [id number] #### [facility] CLIA [id number] [address] [place] [address] [place] COMMENT (SERUM PROT ELECTRO) Monoclonal Protein analysis (immunofixation) is not indicated. Normal [facility] Comment on above: Order Comment: Speci men Type: BLOOD SPECIMEN Ordering Facility: [facility] Address: [address] [place] [address] Performed By: #### L [id number] #### [facility] CLIA [id number] [address] [place] [address] [place] Gamma globulin Elph [Mass/Vol] 0.62 g/dL Normal 0.53-1.51 [facility] Comment on above: Order Comment: Speci men Type: BLOOD SPECIMEN Ordering Facility: [facility] Address: [address] [place] [address] Performed By: #### L [id number] #### [facility] CLIA [id number] [address] [place] [address] [place] M-PROTEIN LOCATION Normal [facility] Comment on above: Order Comment: Speci men Type: BLOOD SPECIMEN Ordering Facility: [facility] Address: [address] [place] [address] Result Comment: Not Applicable. Performed By: #### L [id number] #### [facility] CLIA [id number] [address] [place] [address] [place] Protein Fractions [Interp] No definitive M protein is identified on protein electrophoresis. Normal No definitive M protein is identified on protein electrophore sis. [facility] Comment on above: Order Comment: Speci men Type: BLOOD SPECIMEN Ordering Facility: [facility] Address: [address] [place] [address] Performed By: #### L [id number] #### [facility] CLIA [id number] [address] [place] [address] [place] Protein.monoclonal Elph [Mass/Vol] 0.00 g/dL Normal <=0.00 [facility] Comment on above: Order Comment: Speci men Type: BLOOD SPECIMEN Ordering Facility: [facility] Address: [address] [place] [address] Performed By: #### L [id number] #### [facility] CLIA [id number] [address] [place] [address] [place] SPE STAFF REVIEW Reviewed by Merritt Villafuerte MD, Ph.D ([id number]) Normal [facility] Comment on above: Order Comment: Speci men Type: BLOOD SPECIMEN Ordering Facility: [facility] Address: [address] [place] [address] Performed By: #### L [id number] #### [facility] CLIA [id number] [address] [place] [address] [place] Prot SerPl-mCncon 06-26-2024 Protein [Mass/Vol] 6.1 g/dL Low 6.3-8.0 [facility] Comment on above: Order Comment: Speci men Type: BLOOD SPECIMENOrdering Facility: [facility] Address: [address] [place] [address] Performed By: #### 2 885-2, 73628-7, 2284-8, 35928-2 ####[facility] LABCLIA [id number] [place] [id number] [facility] THERAPY NTon 06-26-2024 THERAPY NT HNO ID: [id number] Author: SANTA COFFEY, PT, DPT Service: Physical Therapy Author Type: Physical Therapist Type: Therapy (PT/OT/Speech/Resp) Filed: 06/26/2024 14:51 Note Text: Physical Therapy Treatment Summary SERVICE DATE: 06/26/2024 SERVICE TIME: 1425 to 1448 ROOM: [place] [address] PT 6 Clicks Score: 24 DISCHARGE RECOMMENDATIONS Outpatient PT Recommended Discharge Disposition Comments: ' Recommended Discharge Equipment: No equipment needs anticipated ASSESSMENT Response to Therapy Interventions: Good Participation in Activities PRECAUTIONS Fall Risk CURRENT HOSPITAL COURSE Weakness in arms and legs Relevant Past Medical History: T2DM, HTN, RA previously on humira for 1.5 years stopped in 2019, osteoarthritis of both hands, depression, HOME LIVING Patient Lives With: Other: See Comment Comments: recently kicked out of previous residence and now staying with his brother for a limited time Assistance Available: Part-Time Entry To Home: Stairs Number Of Stairs Into Home: 6 Number Of Stairs To Bed/Bath: 0 Tub/Shower Type: tub PRIOR FUNCTIONAL LEVEL Within Functional Limits, History of Falls Pt reports being IND with I/ADLs prior to onset of weakness. 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 Since weakness is reporting history of falls and limitations with ADLs requiring assist for IADLs. SUBJECTIVE THERAPY DIAGNOSIS Reduced mobility-other, Muscle Weakness (generalized) TREATMENT INTERVENTIONS Therapeutic Activity (74211) Timed Code Treatment (minutes): 23 Skilled Treatment Time (minutes): 23 TRAINING AND EDUCATION PROVIDED Transfers, Role of Physical Therapy, Pre-gait Activities, Precautions/Restrictions, Positioning, Home Safety, Gait Pattern, Reduction of Deviations, Falls Prevention, Exercise Program, Discharge Planning, Benefits of In-Hospital Mobility THERAPEUTIC SKILLS USED Cues for Sequencing/Proper Technique for Activity, Cuing Tactile, Cuing Verbal, Cuing Visual, Muscle Activation Facilitation FUNCTIONAL STATUS Bed Mobility Rolling: Independent Sit to Supine: Independent Transfers Sit To Stand: Supervision Bed to Chair Supervision Gait Supervision Gait Device: None Gait Distance (feet): 25 Stairs GOALS Patient will demonstrate understanding of importance of mobility during hospital stay and resolve all functional needs identified., Patient will demonstrate progress with functional mobility to allow safe discharge to home with available support and/or physical assistance. Rehab Potential: Fair PLAN PT Frequency: 2 Times Per Week Treatment Interventions: Education, Strengthening, Functional Mobility Training, Balance Training SIGNATURE: Santa Coffey, PT, DPT PATIENT NAME: Bhumika Umana DATE: June 26, 2024 TIME: 2:51 PM Normal [facility] THERAPY NT HNO ID: [id number] Author: DEIRDRE MORGAN, OTR/L, OTD Service: Occupational Therapy Author Type: Occupational Therapist Type: Therapy (PT/OT/Speech/Resp) Filed: 06/26/2024 11:17 Note Text: Occupational Therapy Evaluation Summary SERVICE DATE: 06/26/2024 SERVICE TIME: 0839 to 1010 ROOM: [place] [address] OT 6 Clicks Score: 16 DISCHARGE RECOMMENDATIONS Outpatient OT Recommended Discharge Disposition Comments: With continued assist from family. Anticipated Discharge Needs: Physical Assist at Home Physical Assist at Home for: Meals, Self Care, Cleaning, Laundry, Shopping, Transportation ASSESSMENT Response to Therapy Interventions: Good Participation in Activities, Low Activity Tolerance, On-Track to Achieve Discharge Goals, Requires Additional Time to Complete Activities Rn cleared pt for OT and pt agreeable. MMT perfromed EOB with notable weakness in distal B/L UE (3/5) including parasthesia in fingers and hands (more specifically with ulnar distribution). Pt participated in LB dressing EOB with Mod A. Pt transfer sit <> stand SBA, participating in functional mobility bed <> bathroom SBA. Pt participated in oral hygiene at the sink with Min A using built up handle, initially standing but quickly became fatigued, finishing oral hygine seated using compensatory technique and requiring mulitple rest breaks. Education provided on energy conservation techniques. Pt returned to EOB and set up for self-feeding. Pt provided with resting hand splint to prevent contractures to be worn at night, printed schedule provided and posted in room. Pt required reassurance throughout session due to considerable coping needs related functional decline and social situation. OT to rec Outpatient OT. Will follow up to assess splint. PRECAUTIONS Fall Risk CURRENT HOSPITAL COURSE Weakness in arms and legs Relevant Past Medical History: T2DM, HTN, RA previously on humira for 1.5 years stopped in 2019, osteoarthritis of both hands, depression, HOME LIVING Patient Lives With: Other: See Comment Comments: recently kicked out of previous residence and now staying with his brother for a limited time Assistance Available: Part-Time Entry To Home: Stairs Number Of Stairs Into Home: 6 Number Of Stairs To Bed/Bath: 0 Tub/Shower Type: tub PRIOR FUNCTIONAL LEVEL Within Functional Limits, History of Falls Pt reports being IND with I/ADLs prior to onset of weakness. 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 Since weakness is reporting history of falls and limitations with ADLs requiring assist for IADLs. Baseline Cognition: Oriented to self, Oriented to place, Oriented to time, Oriented to situation SUBJECTIVE I am a private person COGNITION Responsiveness: Alert, Awake Follows Commands: 3-step Commands Psychosocial Factors Impacting Care: Availability/Quality of Support Systems Cog 6 Start of Session Total Points (Max Score = 24): 24 (06/26/24) Cog 6 End of Session Total Points (Max Score = 24): 24 (06/26/24) 4AT Score: 0 (06/26/24) Delirium Positive/Negative: Negative (06/26/24) THERAPY DIAGNOSIS Decreased activities of daily living (ADL), Muscle Weakness (generalized) TREATMENT INTERVENTIONS Evaluation, Self Residential Management (93138), Cognitive Training (58226 and 80713) Timed Code Treatment (minutes): 76 Skilled Treatment Time (minutes): 91 TRAINING AND EDUCATION PROVIDED Activity Adaptation/Compensatory Strategies, Assistive Device Use, Adaptive Equipment/DME, Benefits of In-Hospital Mobility, Command Following, Coping Skills/Resiliency, Discharge Planning, Energy Conservation, Functional Mobility Involving ADLs, Grooming Tasks, IADLs/Home Management, Identification of Systems of Support, Life Roles/Routines/Habits, Positioning, Role of Occupational Therapy, Sitting Balance to Improve [place] with ADLs/Self-Care, Splint Management, Standing Balance to Improve [place] with ADLs/Self-Care, Transfer - Sit to Stand, Upper Extremity Bathing, Upper Extremity Dressing THERAPEUTIC SKILLS USED Activity Dosing, Cues for Sequencing/Proper Technique for Activity, Cuing Tactile, Cuing Verbal, Cuing Visual, Movement Facilitation, Physical Assist, Therapeutic Use of Self FUNCTIONAL STATUS Activities of Daily Living Assist Level Additional Information Feeding Stand By Assistance Grooming Minimal Assistance Bathing Upper Body Moderate Assistance Bathing Lower Body Contact Guard Assistance Dressing Upper Body Moderate Assistance Dressing Lower Body Moderate Assistance Toileting Contact Guard Assistance Mobility Assist Level Additional Information Bed Mobility Sit to Stand Stand By Assistance Stand to Sit Stand By Assistance Bed to Chair Toilet/Commode Shower Functional Mobility Stand By Assistance Functional Mobility Device: None GOALS Patient will demonstrate progress with self-care, cognitive and/or coping needs identified to allow safe discharge to [facility] (more content not included)... Normal [facility] VITAMIN B6/PYRIDOXINon 06-26 VITAMIN B6 32.1 nmol/L Normal 20.0-125.0 [facility] Comment on above: Order Comment: Speci men Type: BLOOD SPECIMEN Ordering Facility: [facility] Address: [address] [place] [address] Result Comment: INTE RPRETIVE INFORMATION: Vitamin B6 (Pyridoxal 5-Phosphate) Pyridoxal 5'-phosphate measured in a specimen collected following an 8-hour or overnight fast accurately indicates vitamin B6 nutritional status. Non-fasting specimen concentration reflects recent vitamin intake. This test was developed and its performance characteristics determined by [facility]. It has not been cleared or approved by the [place] Food and Drug Administration. This test was performed in a CLIA certified laboratory and is intended for clinical purposes. Performed By: [facility] [address] [place] [address] Chief Growth Officer: Leonardo Topete MD, PhD CLIA Number: [id number] Performed By: #### L [id number] #### [facility] CLIA [id number] [address] [place] [address] [place] CASE MANAGEMon 06-25-2024 CASE MANAGEM HNO ID: [id number] Author: MOE ARANGO LISW Service: ? Author Type: Photographer Model Type: Care Mgt Progress Note Filed: 06/25/2024 14:25 Note Text: CARE MANAGEMENT/ SOCIAL WORK HIGH RISK PSYCHOSOCIAL ASSESSMENT SERVICE DATE: June 25, 2024 SERVICE TIME: 2:05 PM Reason for Admission: Weakness [R53.1] Reason for Social Work Contact: Housing Time Spent (minutes): 30 Information Obtained From: Patient Contact Center Associate Chart Patient Granted Permission to Speak to Others in the Room: Not Applicable SOCIAL HISTORY Marital Status: Single Children (Including Quality of Relationship): Unknown Gender Identity: Male Abuse History: Not Applicable Support System: Family: Brother Status (Including History of Combat Experience): None PSYCHIATRIC HISTORY: Diagnosis: Depression Family Psychiatric History Unknown Substance Use and Treatment History: Patient/Driftman Denies DISCHARGE RECOMMENDATIONS: Home Patient/Driftman Agreeable With Discharge Recommendations At This Time? Yes OBSTACLES TO TREATMENT/POST-DISCHARGECH ALLENGES: Homelessness Limited Support System BELINDA consulted for housing needs. Per team, pt temporary living with brother and requested assistance for post-discharge planning. SW met with pt at bedside to introduce self and explain role. Pt reported he was living in a house owned by his parents for 20 years, but was recently evicted after his sister became the intraoperative neuro tech earlier this year. Pt reported his father and his mother moved in with her new , so the house was signed over to his sister. Pt reported his sister asked him to leave due to being unable to work on the house. 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 Pt reported his brother agreed to take pt and his dog in after being kicked out. Pt reported he has been sleeping on his brother recliner chair in the living room because there is no extra room for him. Pt stated he is beginning to feel like a burden and wants to make arrangements for his own housing. SW offered to provide pt with subsidized housing resources, however pt declined. Pt shred details of his family dynamic. SW empathized and provided emotional support. Pt reported he is unemployed because he has difficulty completing most tasks, including ADLs. Per pt, the state approved Medicaid coverage due to his health issues. Pt reported he's attempted to apply for SSD several times and was denied each time. Pt reported its been several years since his last SSD application and stated he will attempt to apply again. SW provided application tips and encouraged pt to go to social security office for assistance. Per EMR, pt with [place] Medicaid. SW encouraged pt to contact his insurance to request a keycase assembler for additional community support. Pt will plan to brother's home at time of discharge. Pt denied any other questions or concerns at this time. Should any other psychosocial needs arise, please re-consult BELINDA. SIGNATURE: YAW Vincent PATIENT NAME: Bhumika Umana DATE: June 25, 2024 TIME: 2:05 PM CONTACT #: [phone] Normal [facility] CBC panel Auto (Bld)on 06-25 Erythrocyte distribution width (RBC) [Ratio] 12.3 % Normal 11.5-15.0 [facility] Comment on above: Order Comment: Speci men Type: BLOOD SPECIMEN Ordering Facility: [facility] Address: [address] [place] [address] Performed By: #### L [id number] #### [facility] CLIA [id number] [address] [place] [address] [place] Hematocrit (Bld) [Volume fraction] 41.9 % Normal 39.0-51.0 [facility] Comment on above: Order Comment: Speci men Type: BLOOD SPECIMEN Ordering Facility: [facility] Address: [address] [place] [address] Performed By: #### L [id number] #### [facility] CLIA [id number] [address] [place] [address] [place] Hemoglobin (Bld) [Mass/Vol] 13.8 g/dL Normal 13.0-17.0 [facility] Comment on above: Order Comment: Speci men Type: BLOOD SPECIMEN Ordering Facility: [facility] Address: [address] [place] [address] Performed By: #### L [id number] #### [facility] CLIA [id number] [address] [place] [address] [place] MCH (RBC) [Entitic mass] 29.9 pg Normal 26.0-34.0 [facility] Comment on above: Order Comment: Speci men Type: BLOOD SPECIMEN Ordering Facility: [facility] Address: [address] [place] [address] Performed By: #### L [id number] #### [facility] CLIA [id number] [address] [place] [address] [place] MCHC (RBC) [Mass/Vol] 32.9 g/dL Normal 30.5-36.0 [facility] Comment on above: Order Comment: Speci men Type: BLOOD SPECIMEN Ordering Facility: [facility] Address: [address] [place] [address] Performed By: #### L [id number] #### [facility] CLIA [id number] [address] [place] [address] [place] MCV (RBC) [Entitic vol] 90.7 fL Normal 80.0-100.0 [facility] Comment on above: Order Comment: Speci men Type: BLOOD SPECIMEN Ordering Facility: [facility] Address: [address] [place] [address] Performed By: #### L [id number] #### [facility] CLIA [id number] [address] [place] [address] [place] Nucleated RBC (Bld) [#/Vol] 10*3/uL Normal <0.01 [facility] Comment on above: Order Comment: Speci men Type: BLOOD SPECIMEN Ordering Facility: [facility] Address: [address] [place] [address] Performed By: #### L [id number] #### [facility] CLIA [id number] [address] [place] [address] [place] Platelet mean volume (Bld) [Entitic vol] 9.3 fL Normal 9.0-12.7 [facility] Comment on above: Order Comment: Speci men Type: BLOOD SPECIMEN Ordering Facility: [facility] Address: [address] [place] [address] Performed By: #### L [id number] #### [facility] CLIA [id number] [address] [place] [address] [place] Platelets (Bld) [#/Vol] 290 10*3/uL Normal 150-400 [facility] Comment on above: Order Comment: Speci men Type: BLOOD SPECIMEN Ordering Facility: [facility] Address: [address] [place] [address] Performed By: #### L [id number] #### [facility] CLIA [id number] [address] [place] [address] [place] RBC (Bld) [#/Vol] 4.62 10*6/uL Normal 4.20-6.[address] [facility] Comment on above: Order Comment: Speci men Type: BLOOD SPECIMEN Ordering Facility: [facility] Address: [address] [place] [address] Performed By: #### L [id number] #### [facility] CLIA [id number] [address] [place] [address] [place] WBC (Bld) [#/Vol] 8.92 10*3/uL Normal 3.70-11.[address] [facility] Comment on above: Order Comment: Speci men Type: BLOOD SPECIMEN Ordering Facility: [facility] Address: [address] [place] [address] Performed By: #### L [id number] #### [facility] CLIA [id number] [address] [place] [address] [place] [facility] BY IFA WITH REFLEXon 06-25-2024 Interpretation and review of laboratory results Abnormal [facility] Nuclear Ab pattern (S) [Interp] Nuclear fine speckled [facility] Nuclear Ab Ql (S) Positive Abnormal Negative [facility] Comment on above: Anti-nuclear antibod y test is used as an aid in diagnosis of systemic autoimmune diseases. Where positive and clinically warranted, follow-up using disease-specific testing is recommended. Low positive titers are not uncommon with advanced age, certain chronic infections, and malignancies among others. Test methodology: Indirect fluorescence immunoassay (IFA) using HEp-2 cells. 1:160 Specimen Type: BLOOD SPECIMEN Ordering Facility: [facility] Address: [address] [place] [address] Original Ordering Provider: DI SOSA [facility] VIT B12 BRANDTL-DIANNEon Cobalamin (Vitamin B12) [Mass/Vol] 499 pg/mL 232 - 1245 pg/mL [facility] Specimen Type: BLOOD SPECIMEN Ordering Facility: [facility] Address: [address] [place] [address] Original Ordering Provider: LELAND DANG [facility] COPPER BLOODon 06-25-2024 Copper [Mass/Vol] 115 ug/dL Normal 70-140 [facility] Comment on above: Order Comment: Speci men Type: BLOOD SPECIMENOrdering Facility: [facility] Address: [address] [place] [address] Result Comment: This test was developed, and its performance characteristics determined by the [facility] Department of Pathology and Laboratory Medicine. It has not been cleared or approved by the FDA. The [facility] Department of Pathology and Laboratory Medicine is regulated under CLIA as qualified to perform high-complexity testing. This test is used for clinical purposes. It should not be regarded as investigational or for research. Performed By: #### C CISCO, 5763-8 ####[facility] LABIA [id number] [place] [address] [place] Comprehensive metabolic 2000 panelon 06-25-2024 Albumin [Mass/Vol] 3.9 g/dL Normal 3.9-4.9 [facility] Comment on above: Order Comment: Speci men Type: BLOOD SPECIMENOrdering Facility: [facility] Address: [address] [place] [address] Performed By: #### 1 9123-9, 2132-04, ####[facility] [id number] [place] [address] [place] ALP [Catalytic activity/Vol] 70 U/L Normal 38-113 [facility] Comment on above: Order Comment: Speci men Type: BLOOD SPECIMENOrdering Facility: [facility] Address: [address] [place] [address] Performed By: #### 1 9123-9, 2132-04, 78776-2 ####[facility] LABIA [id number] [place] [address] [place] ALT [Catalytic activity/Vol] 24 U/L Normal 10-54 [facility] Comment on above: Order Comment: Speci men Type: BLOOD SPECIMENOrdering Facility: [facility] Address: [address] [place] [address] Performed By: #### 1 9123-9, 2132-04, ####[facility] LABCLIA [id number] [place] [address] [place] Anion gap [Moles/Vol] 12 mmol/L Normal 8-15 [facility] Comment on above: Order Comment: Speci men Type: BLOOD SPECIMENOrdering Facility: [facility] Address: [address] [place] [address] Performed By: #### 1 9123-9, 2132-04, ####[facility] LABCLIA [id number] [place] [address] [place] AST [Catalytic activity/Vol] 15 U/L Normal 14-40 [facility] Comment on above: Order Comment: Speci men Type: BLOOD SPECIMENOrdering Facility: [facility] Address: [address] [place] [address] Performed By: #### 1 9123-9, 2132-04, ####[facility] LABCLIA [id number] [place] [address] [place] Bilirubin [Mass/Vol] 0.7 mg/dL Normal 0.2-1.3 [facility] Comment on above: Order Comment: Speci men Type: BLOOD SPECIMENOrdering Facility: [facility] Address: [address] [place] [address] Performed By: #### 1 9123-9, 2132-04, ####[facility] LABIA [id number] [place] [address] [place] Calcium [Mass/Vol] 9.1 mg/dL Normal 8.5-10.2 [facility] Comment on above: Order Comment: Speci men Type: BLOOD SPECIMENOrdering Facility: [facility] Address: [address] [place] [address] Performed By: #### 1 23-9, 2132-04, ####[facility] LABCLIA [id number] [address] [address] [place] Chloride [Moles/Vol] 105 mmol/L Normal 98-107 [facility] Comment on above: Order Comment: Speci men Type: BLOOD SPECIMENOrdering Facility: [facility] Address: [address] [place] [address] Performed By: #### 1 23-9, 2132-04, ####[facility] LABIA [id number] [place] [address] [place] CO2 [Moles/Vol] 24 mmol/L Normal 22-30 [facility] Comment on above: Order Comment: Speci men Type: BLOOD SPECIMENOrdering Facility: [facility] Address: [address] [place] [address] Performed By: #### 1 239, 2132-04, ####[facility] LABIA [id number] [place] [address] [place] Creatinine [Mass/Vol] 0.62 mg/dL Low 0.73-1.22 [facility] Comment on above: Order Comment: Speci men Type: BLOOD SPECIMENOrdering Facility: [facility] Address: [address] [place] [address] Performed By: #### 1 23-9, 2132-04, ####[facility] LABIA [id number] [place] [id number] [place] Creatinine and Glomerular filtration rate.predicted panel (S/P/Bld) 119 mL/min/1.73m??? Normal >=60 [facility] Comment on above: Order Comment: Speci men Type: BLOOD SPECIMENOrdering Facility: [facility] Address: [address] [place] [address] Result Comment: Alexa mated Glomerular Filtration Rate (eGFR) is calculated using the 2020 CKD-EPI creatinine equation. This equation utilizes serum creatinine, sex, and age as parameters. The creatinine assay has traceable calibration to isotope dilution-mass spectrometry. Refer to KDIGO guidelines for clinical interpretation. In patients with unstable renal function, e.g. those with acute kidney injury, the eGFR may not accurately reflect actual GFR. Performed By: #### 1 9, 2132-04, ####[facility] LABCLIA [id number] [address] [address] [place] Glucose [Mass/Vol] 88 mg/dL Normal 74-99 [facility] Comment on above: Order Comment: Deborah finley Type: BLOOD SPECIMENOrdering Facility: [facility] Address: [address] [place] [address] Result Comment: The [place] [employer] (ADA) provides guidance for cutoff values for fasting glucose and random glucose. The ADA defines fasting as no caloric intake for at least 8 hours. Fasting plasma glucose results between 100 to 125 mg/dL indicate increased risk for diabetes (prediabetes). Fasting plasma glucose results greater than or equal to 126 mg/dL meet the criteria for diagnosis of diabetes. In the absence of unequivocal hyperglycemia, results should be confirmed by repeat testing. In a patient with classic symptoms of hyperglycemia or hyperglycemic crisis, random plasma glucose results greater than or equal to 200 mg/dL meet the criteria for diagnosis of diabetes. Reference: Standards of Medical Care in Diabetes 2016, [place] [employer]. Diabetes Care. 2016.39(Suppl 1). Performed By: #### 1 9, 2132-04, ####[facility] LABIA [id number] [address] [address] [place] Potassium [Moles/Vol] 3.6 mmol/L Low 3.7-5.1 [facility] Comment on above: Order Comment: Deborah finley Type: BLOOD SPECIMENOrdering Facility: [facility] Address: [address] [place] [address] Performed By: #### 1 239, 2132-04, ####[facility] LABCLIA [id number] [place] [address] [place] Protein [Mass/Vol] 6.4 g/dL Normal 6.3-8.0 [facility] Comment on above: Order Comment: Speci men Type: BLOOD SPECIMENOrdering Facility: [facility] Address: [address] [place] [address] Performed By: #### 1 9123-9, 2132-04, 85452-8 ####[facility] LABCLIA [id number] [place] [address] [place] Sodium [Moles/Vol] 141 mmol/L Normal 136-144 [facility] Comment on above: Order Comment: Speci men Type: BLOOD SPECIMENOrdering Facility: [facility] Address: [address] [place] [address] Performed By: #### 1 9123-9, 2132-04, 42216-6 ####[facility] LABCLIA [id number] [place] [address] [place] Urea nitrogen [Mass/Vol] 8 mg/dL Low 9-24 [facility] Comment on above: Order Comment: Speci men Type: BLOOD SPECIMENOrdering Facility: [facility] Address: [address] [place] [address] Performed By: #### 1 9123-9, 2132-04, 91478-7 ####[facility] LABCLIA [id number] [place] [address] [place] HIV 1+2 Ab IA Qlon 4 HIV 1 and 2 Ab IA.rapid Nom (S/P/Bld) Normal [facility] Comment on above: Order Comment: Speci men Type: BLOOD SPECIMEN Ordering Facility: [facility] Address: [address] [place] [address] Result Comment: Test not indicated. Performed By: #### L [id number] #### [facility] CLIA [id number] [address] [place] [address] [place] HIV 1+2 Ab+HIV1 p24 Ag IA Ql Non-Reactive Normal Nonreactive [facility] Comment on above: Order Comment: Speci men Type: BLOOD SPECIMEN Ordering Facility: [facility] Address: [address] [place] [address] Performed By: #### L [id number] #### [facility] CLIA [id number] [address] [place] [address] [place] HIV immunoassay testing algorithm interpretation (S/P/Bld) [Interp] Normal [facility] Comment on above: Order Comment: Speci men Type: BLOOD SPECIMEN Ordering Facility: [facility] Address: [address] [place] [address] Result Comment: No e vidence of HIV-1 or HIV-2 infection. Should recent infection be suspected, repeat testing may be considered 2-3 weeks after this draw. [place] Rev. Code 3701.243(E): This information has been disclosed to you from confidential records protected from disclosure by state law. ???You shall make no further disclosure of this information without the specific, written, and informed release of the individual to whom it pertains or as otherwise permitted by state law. A general authorization for the release of medical or other information is not sufficient for the purpose of the release of HIV test results or diagnoses. Performed By: #### L [id number] #### [facility] CLIA [id number] [address] [place] [address] [place] Magnesium SerPl-mCncon 06-25 Magnesium [Mass/Vol] 2.0 mg/dL Normal 1.7-2.3 [facility] Comment on above: Order Comment: Speci men Type: BLOOD SPECIMENOrdering Facility: [facility] Address: [address] [place] [address] Performed By: #### 1 9123-9, 2132-9, 97949-1 ####[facility] LABCLIA [id number] [place] [address] [place] Methylmalonate SerPl-sCncon 06-25-2024 Methylmalonate [Moles/Vol] 0.25 umol/L Normal <=0.40 [facility] Comment on above: Order Comment: Speci men Type: BLOOD SPECIMEN Ordering Facility: [facility] Address: [address] [place] [address] Result Comment: This test was developed, and its performance characteristics determined by the [facility] Department of Pathology and Laboratory Medicine. It has not been cleared or approved by the FDA. The [facility] Department of Pathology and Laboratory Medicine is regulated under CLIA as qualified to perform high-complexity testing. This test is used for clinical purposes. It should not be regarded as investigational or for research. Performed By: #### 1 3964-2 #### [facility] CLIA [id number] [address] [place] [address] [place] [address] [place] NUTRITIONon 06-25-2024 NUTRITION HNO ID: [id number] Author: OH HOBSON RD Service: Nutrition Therapy Author Type: Registered Dietitian Type: Nutrition Filed: 06/25/2024 13:03 Note Text: NUTRITION THERAPY INITIAL ASSESSMENT SERVICE DATE: 06/25/2024 SERVICE TIME: 11:35am Nutrition Assessment: Recommended Malnutrition Diagnosis: Mild Protein-Calorie Malnutrition In the context of: Chronic Illness or Injury Based on: Insufficient Energy Intake Nutrition Diagnosis: Problem: Suboptimal oral intake Related to: Inability to consume sufficient nutrients As evidenced by: Anorexia, Medical condition, Patient/family self-report Care Plan: Continue current diet Vitamins and Minerals: Multivitamin with minerals Monitor and Evaluation: Monitor bowel function, Meet greater than 75% of estimated needs, Monitor fluid/electrolyte balance, Monitor labs, I/Os, vital signs, weight Discharge Recommendations: Diet;Oral Supplements Diet: as tolerated Oral Supplements: high calorie, high protein oral nutrition supplements when PO intake is meeting <75% of estimated energy needs HPI: Per Gregorio Palmer note on 06/24: This is a 48 year old male Bhumika Umana is a 48 year old male with a pmh of T2DM, HTN, RA previously on humira for 1.5 years stopped in 2019, osteoarthritis of both hands, depression, EDDI presenting today for a second opinion regarding his bilateral upper extremity weakness and numbness. Patient states everything started in December 2023, where he noticed numbness in his fingers bilaterally. He also experienced profound weakness in bilateral handgrip that has now progressed more proximally. He also endorses transient weakness in bilateral lower extremities that has caused him to fall multiple times over the past 5 months. Recently, he fell and hit his shoulder and head against the wall. 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 Some days are more challenging than others, but overall, his condition has been gradually worsening. Intake History: Nutrition Intake Prior to Admission: Less than 75% estimated energy needs greater than or equal to 1 month - pt declined nutrition supplements at this time- actively trying to lose weight prior to admission. Difficulty with feeding. Dosing Weight: 142 kg (313 lb 0.9 oz) Dosing Weight Type: Admit weight Estimated kilocalorie needs: 1068-6096 Calorie Calculation Method: 10-15 kcals/kg Estimated protein needs (grams): 84-100 Grams protein determined by: 1.0 - 1.2 g/kg Diet Orders (From admission, onward) Start Ordered 06/24/24 1700 DIET REGULAR START NOW 06/24/24 1700 Anthropometrics: Height: 190.5 cm (6' 3 ) Weight: (!) 142.4 kg (313 lb 15 oz) Body mass index is 39.24 kg/m?. Weight change percentage over time: Unable to determine weight change d/t limited weight hx per epic records Weight Change: Unable to determine Physical Exam: Subcutaneous fat loss: No fat loss Muscle loss: No muscle loss Potential micronutrient deficiency: No deficiency identified Edema/Ascites: No edema GI Symptoms: None Functional Status: Regressed Potential Signs of Inflammation: Chronic condition, High CRP MNT Billing: $ Initial Assessment: 1-15 minutes SIGNATURE: Oh Hobson RD PATIENT NAME: Bhumika Umana DATE: June 25, 2024 TIME: 1:00 PM Normal [facility] THERAPY NTon 06-25-2024 THERAPY NT HNO ID: [id number] Author: SANTA COFFEY, PT, DPT Service: Physical Therapy Author Type: Physical Therapist Type: Therapy (PT/OT/Speech/Resp) Filed: 06/25/2024 08:37 Note Text: Physical Therapy Evaluation Summary SERVICE DATE: 06/25/2024 SERVICE TIME: 739 to 818 ROOM: [place] [address] PT 6 Clicks Score: 24 DISCHARGE RECOMMENDATIONS Outpatient PT Recommended Discharge Disposition Comments: ' Recommended Discharge Equipment: No equipment needs anticipated ASSESSMENT Response to Therapy Interventions: Good Participation in Activities PRECAUTIONS Fall Risk CURRENT HOSPITAL COURSE Weakness in arms and legs Relevant Past Medical History: T2DM, HTN, RA previously on humira for 1.5 years stopped in 2019, osteoarthritis of both hands, depression, HOME LIVING Patient Lives With: Other: See Comment Comments: recently kicked out of previous residence and now staying with his brother for a limited time Entry To Home: Stairs Number Of Stairs Into Home: 6 PRIOR FUNCTIONAL LEVEL Within Functional Limits Pt describes being indep with a fall history and weakness in both hands/feet SUBJECTIVE THERAPY DIAGNOSIS Reduced mobility-other, Muscle Weakness (generalized) TREATMENT INTERVENTIONS Evaluation, Therapeutic Activity (27223), Therapeutic Exercise (56212) Timed Code Treatment (minutes): 23 Skilled Treatment Time (minutes): 38 TRAINING AND EDUCATION PROVIDED Transfers, Role of Physical Therapy, Pre-gait Activities, Precautions/Restrictions, Positioning, Home Safety, Gait Pattern, Reduction of Deviations, Falls Prevention, Exercise Program, Discharge Planning, Benefits of In-Hospital Mobility THERAPEUTIC SKILLS USED Cues for Sequencing/Proper Technique for Activity, Cuing Tactile, Cuing Verbal, Cuing Visual, Muscle Activation Facilitation FUNCTIONAL STATUS Bed Mobility Rolling: Independent Sit to Supine: Independent Transfers Sit To Stand: Supervision Bed to Chair Supervision Gait Supervision Gait Device: None General Deviations/Observations: (Rigid trunk, narrow DIEGO) Gait Distance (feet): 25 Stairs GOALS Patient will demonstrate understanding of importance of mobility during hospital stay and resolve all functional needs identified., Patient will demonstrate progress with functional mobility to allow safe discharge to home with available support and/or physical assistance. Rehab Potential: Fair PLAN PT Frequency: 2 Times Per Week Treatment Interventions: Education, Strengthening, Functional Mobility Training, Balance Training SIGNATURE: Santa Coffey, PT, DPT PATIENT NAME: Bhumika Umana DATE: June 25, 2024 TIME: 8:37 AM Normal [facility] VITAMIN B1 (THIAMINE), WHOLE BLOODon 06-25-2024 Thiamine (Bld) [Moles/Vol] 199.2 nmol/L Normal 84.3-213.3 [facility] Comment on above: Order Comment: Speci men Type: BLOOD SPECIMENOrdering Facility: [facility] Address: [address] [place] [address] Result Comment: This assay measures the concentration of thiamine diphosphate (TDP), the primary active form of vitamin B1. Approximately 90 percent of vitamin B1 present in whole blood is TDP. Thiamine and thiamine monophosphate, which comprise the remaining 10 percent, are not measured. This test was developed, and its performance characteristics determined by the [facility] Department of Pathology and Laboratory Medicine. It has not been cleared or approved by the FDA. The [facility] Department of Pathology and Laboratory Medicine is regulated under CLIA as qualified to perform high-complexity testing. This test is used for clinical purposes. It should not be regarded as investigational or for research. Performed By: #### B 1WB ####[facility] [id number] [place] [address] [place] Vit B12 SerPl-mCncon 024 Cobalamin (Vitamin B12) [Mass/Vol] 499 pg/mL Normal 232-1245 [facility] Comment on above: Order Comment: Deborah finley Type: BLOOD SPECIMENOrdering Facility: [facility] Address: [address] [place] [address] Performed By: #### 1 9123-9, 2132-9, 05664-7 ####[facility] [id number] [place] [address] [place] Zinc SerPl-mCncon 06-25-2024 Zinc [Mass/Vol] 66 ug/dL Normal 60-120 [facility] Comment on above: Order Comment: Joeli malia Type: BLOOD SPECIMENOrdering Facility: [facility] Address: [address] [place] [address] Result Comment: This test was developed, and its performance characteristics determined by the [facility] Department of Pathology and Laboratory Medicine. It has not been cleared or approved by the FDA. The [facility] Department of Pathology and Laboratory Medicine is regulated under CLIA as qualified to perform high-complexity testing. This test is used for clinical purposes. It should not be regarded as investigational or for research. Performed By: #### C OPPER, 5763-8 ####[facility] LABCLIA [id number] [place] [address] [place] ACETYLCHOLINE REC BINDING AB on 06-24-2024 ACETYLCHOLINE BINDING, QUAL Negative Normal Negative [facility] Comment on above: Order Comment: Speci men Type: BLOOD SPECIMENOrdering Facility: [facility] Address: [address] [place] [address] Result Comment: Anti -acetylcholine receptor binding antibody test is used as an aid in diagnosis of myasthenia gravis. A negative result cannot exclude myasthenia gravis. Clinical correlation is required. Performed By: #### A CHRAB ####[facility] LABIA [id number] [place] [address] [place] Acetylcholine receptor binding Ab (S) [Moles/Vol] <0.02 Normal <0.21 [facility] Comment on above: Order Comment: Speci men Type: BLOOD SPECIMENOrdering Facility: [facility] Address: [address] [place] [address] Performed By: #### A CHRAB ####[facility] [id number] [place] [address] [place] RAVINDER BY IFA WITH REFLEXon Nuclear Ab pattern (S) [Interp] Nuclear fine speckled Normal [facility] Comment on above: Order Comment: Speci men Type: BLOOD SPECIMENOrdering Facility: [facility] Address: [address] [place] [address] Performed By: #### 5 1775-5, 59273-5, 70813-1, 37409-5, 92951-7, 59683-1, 07835-5, ANAIFR, 32932-1, 77537-9 ####[facility] LABIA [id number] [place] [address] [place] Nuclear Ab Ql (S) Positive Abnormal Negative [facility] Comment on above: Order Comment: Speci men Type: BLOOD SPECIMENOrdering Facility: [facility] Address: [address] [place] [address] Result Comment: Anti -nuclear antibody test is used as an aid in diagnosis of systemic autoimmune diseases. Where positive and clinically warranted, follow-up using disease-specific testing is recommended. Low positive titers are not uncommon with advanced age, certain chronic infections, and malignancies among others. Test methodology: Indirect fluorescence immunoassay (IFA) using HEp-2 cells. 1:160 Performed By: #### 5 1775-5, 15762-1, 82530-0, 35269-1, 36455-4, 87462-6, 72108-7, ANAIFR, 94819-7, 89249-8 ####[facility] LABCLIA [id number] [place] [id number] [place] C3 SerPl-mCncon 06-24-2024 Complement C3 [Mass/Vol] 154 mg/dL Normal 86-166 [facility] Comment on above: Order Comment: Speci men Type: BLOOD SPECIMENOrdering Facility: [facility] Address: [address] [place] [address] Performed By: #### 3 016-3, 4498-2, 2157-01, 1987-12, , , 4485-04 ####[facility] LABCLIA [id number] [place] [id number] [place] C4 SerPl-mCncon 06-24-2024 Complement C4 [Mass/Vol] 24 mg/dL Normal 13-46 [facility] Comment on above: Order Comment: Speci men Type: BLOOD SPECIMENOrdering Facility: [facility] Address: [address] [place], [place] [address] Performed By: #### 3 016-3, 4498-2, 2157-01, 1987-12, , , 4485-04 ####[facility] LABCLIA [id number] [place] [id number] [place] CBC W Auto Differential pane l (Bld)on 06-24-2024 Basophils (Bld) [#/Vol] 0.04 10*3/uL Normal <0.11 [facility] Comment on above: Order Comment: Speci men Type: BLOOD SPECIMENOrdering Facility: [facility] Address: [address] [place] [address] Performed By: #### 5 5454-3, 11078-3, 4536-7 ####[facility] LABCLIA [id number] [facility] [place] [address] [place] Basophils/100 WBC (Bld) 0.5 % Normal [facility] Comment on above: Order Comment: Speci men Type: BLOOD SPECIMENOrdering Facility: [facility] Address: [address] [place] [address] Performed By: #### 5 5454-3, 79759-2, 7 ####[facility] LABCLIA [id number] [facility] [place] [address] [place] Differential cell count method Nom (Bld) Auto Normal [facility] Comment on above: Order Comment: Speci men Type: BLOOD SPECIMENOrdering Facility: [facility] Address: [address] [place] [address] Performed By: #### 5 5454-3, 46095-2, 7 ####[facility] LABCLIA [id number] [facility] [place] [address] [place] Eosinophils (Bld) [#/Vol] 0.17 10*3/uL Normal <0.46 [facility] Comment on above: Order Comment: Speci men Type: BLOOD SPECIMENOrdering Facility: [facility] Address: [address] [place] [address] Performed By: #### 5 5454-3, 18027-8, 7 ####[facility] LABCLIA [id number] [facility] [place] [address] [place] Eosinophils/100 WBC (Bld) 2.0 % Normal [facility] Comment on above: Order Comment: Speci men Type: BLOOD SPECIMENOrdering Facility: [facility] Address: [address] [place] [address] Performed By: #### 5 5454-3, 82115-3, 4537-7 ####[facility] LABCLIA [id number] [place] [address] [place] Erythrocyte distribution width (RBC) [Ratio] 12.3 % Normal 11.5-15.0 [facility] Comment on above: Order Comment: Speci men Type: BLOOD SPECIMENOrdering Facility: [facility] Address: [address] [place] [address] Performed By: #### 5 5454-3, 10192-4, 4537-7 ####[facility] LABCLIA [id number] [place] [address] [place] Hematocrit (Bld) [Volume fraction] 46.2 % Normal 39.0-51.0 [facility] Comment on above: Order Comment: Speci men Type: BLOOD SPECIMENOrdering Facility: [facility] Address: [address] [place] [address] Performed By: #### 5 5454-3, 66836-8, 4537-7 ####[facility] LABCLIA [id number] [place] [address] [place] Hemoglobin (Bld) [Mass/Vol] 15.2 g/dL Normal 13.0-17.0 [facility] Comment on above: Order Comment: Speci men Type: BLOOD SPECIMENOrdering Facility: [facility] Address: [address] [place] [address] Performed By: #### 5 5454-3, 87223-3, 4537-7 ####[facility] LABCLIA [id number] [place] [address] [place] Immature granulocytes (Bld) [#/Vol] 0.04 10*3/uL Normal <0.10 [facility] Comment on above: Order Comment: Speci men Type: BLOOD SPECIMENOrdering Facility: [facility] Address: [address] [place] [address] Performed By: #### 5 5454-3, 78139-3, 7-7 ####[facility] LABCLIA [id number] [place] [address] [place] Immature granulocytes/100 WBC (Bld) 0.5 % Normal [facility] Comment on above: Order Comment: Speci men Type: BLOOD SPECIMENOrdering Facility: [facility] Address: [address] [place] [address] Performed By: #### 5 5454-3, 19310-0, 4537-7 ####[facility] LABCLIA [id number] [place] [address] [place] Lymphocytes (Bld) [#/Vol] 2.13 10*3/uL Normal 1.00-4.00 [facility] Comment on above: Order Comment: Speci men Type: BLOOD SPECIMENOrdering Facility: [facility] Address: [address] [place] [address] Performed By: #### 5 5454-3, 56345-2, 7-7 ####[facility] LABCLIA [id number] [place] [address] [place] Lymphocytes/100 WBC (Bld) 25.0 % Normal [facility] Comment on above: Order Comment: Speci men Type: BLOOD SPECIMENOrdering Facility: [facility] Address: [address] [place] [address] Performed By: #### 5 5454-3, 93371-3, 4537-7 ####[facility] LABCLIA [id number] [place] [address] [place] MCH (RBC) [Entitic mass] 29.4 pg Normal 26.0-34.0 [facility] Comment on above: Order Comment: Speci men Type: BLOOD SPECIMENOrdering Facility: [facility] Address: [address] [place] [address] Performed By: #### 5 5454-3, 97074-8, 4537-7 ####[facility] LABCLIA [id number] [place] [address] [place] MCHC (RBC) [Mass/Vol] 32.9 g/dL Normal 30.5-36.0 [facility] Comment on above: Order Comment: Speci men Type: BLOOD SPECIMENOrdering Facility: [facility] Address: [address] [place] [address] Performed By: #### 5 5454-3, 46632-5, 453-7 ####[facility] LABIA [id number] [place] [address] [place] MCV (RBC) [Entitic vol] 89.4 fL Normal 80.0-100.0 [facility] Comment on above: Order Comment: Speci men Type: BLOOD SPECIMENOrdering Facility: [facility] Address: [address] [place] [address] Performed By: #### 5 5454-3, 74028-5, 4537-7 ####[facility] LABIA [id number] [place] [address] [place] Monocytes (Bld) [#/Vol] 0.57 10*3/uL Normal <0.87 [facility] Comment on above: Order Comment: Speci men Type: BLOOD SPECIMENOrdering Facility: [facility] Address: [address] [place] [address] Performed By: #### 5 5454-3, 53916-5, 4537-7 ####[facility] LABIA [id number] [place] [address] [place] Monocytes/100 WBC (Bld) 6.7 % Normal [facility] Comment on above: Order Comment: Speci men Type: BLOOD SPECIMENOrdering Facility: [facility] Address: [address] [place] [address] Performed By: #### 5 5454-3, 37371-9, 7-7 ####[facility] LABCLIA [id number] [place] [address] [place] Neutrophils (Bld) [#/Vol] 5.56 10*3/uL Normal 1.45-7.50 [facility] Comment on above: Order Comment: Speci men Type: BLOOD SPECIMENOrdering Facility: [facility] Address: [address] [place] [address] Performed By: #### 5 5454-3, 25556-5, 4536-7 ####[facility] LABIA [id number] [place] [address] [place] Neutrophils/100 WBC (Bld) 65.3 % Normal [facility] Comment on above: Order Comment: Speci men Type: BLOOD SPECIMENOrdering Facility: [facility] Address: [address] [place] [address] Performed By: #### 5 5454-3, 64504-7, 4536-7 ####[facility] LABCLIA [id number] [place] [address] [place] Nucleated RBC (Bld) [#/Vol] 10*3/uL Normal <0.01 [facility] Comment on above: Order Comment: Speci men Type: BLOOD SPECIMENOrdering Facility: [facility] Address: [address] [place] [address] Performed By: #### 5 5454-3, 62411-4, 4536-7 ####[facility] LABIA [id number] [place] [address] [place] Nucleated RBC/100 WBC (Bld) [Ratio] 0.0 /100 WBC Normal [facility] Comment on above: Order Comment: Speci men Type: BLOOD SPECIMENOrdering Facility: [facility] Address: [address] [place] [address] Performed By: #### 5 5454-3, 63487-7, 4537-7 ####[facility] LABCLIA [id number] [address] [address] [place] Platelet mean volume (Bld) [Entitic vol] 9.1 fL Normal 9.0-12.7 [facility] Comment on above: Order Comment: Speci men Type: BLOOD SPECIMENOrdering Facility: [facility] Address: [address] [place] [address] Performed By: #### 5 5454-3, 47780-2, 4537-7 ####[facility] LABCLIA [id number] [place] [address] [place] Platelets (Bld) [#/Vol] 333 10*3/uL Normal 150-400 [facility] Comment on above: Order Comment: Speci men Type: BLOOD SPECIMENOrdering Facility: [facility] Address: [address] [place] [address] Performed By: #### 5 5454-3, 04278-1, 4537-7 ####[facility] LABCLIA [id number] [place] [address] [place] RBC (Bld) [#/Vol] 5.17 10*6/uL Normal 4.20-6.[address] [facility] Comment on above: Order Comment: Speci men Type: BLOOD SPECIMENOrdering Facility: [facility] Address: [address] [place] [address] Performed By: #### 5 5454-3, 07704-0, 4537-7 ####[facility] LABCLIA [id number] [place] [id number] [place] WBC (Bld) [#/Vol] 8.51 10*3/uL Normal 3.70-11.[address] [facility] Comment on above: Order Comment: Speci men Type: BLOOD SPECIMENOrdering Facility: [facility] Address: [address] [place] [address] Performed By: #### 5 5454-3, 54791-6, 4537-7 ####[facility] LABCLIA [id number] [place] [address] [place] CK SerPl-cCncon 06-24-2024 CK [Catalytic activity/Vol] 43 U/L Low 51-298 [facility] Comment on above: Order Comment: Speci men Type: BLOOD SPECIMENOrdering Facility: [facility] Address: [address] [place] [address] Performed By: #### 1 1572-5, 215-6 ####[facility] LABCLIA [id number] [address] [place] CK [Catalytic activity/Vol] 49 U/L Low 51-298 [facility] Comment on above: Order Comment: Speci men Type: BLOOD SPECIMENOrdering Facility: [facility] Address: [address] [place] [address] Performed By: #### 3 016-3, 4498-2, 2157-6, 1987-5, 00537-5, 89371-5, 4485-9 ####[facility] LABCLIA [id number] [place] [address] [place] CRP SerPl-mCncon 06-24-2024 CRP [Mass/Vol] 1.2 mg/dL High <0.9 [facility] Comment on above: Order Comment: Speci men Type: BLOOD SPECIMEN Ordering Facility: [facility] Address: [address] [place] [address] Performed By: #### L [id number] #### [facility] LAB CLIA [id number] [address] [place] [address] [place] Centromere Ab IF Ql (S)on Centromere Ab Qn (S) <0.2 Normal <1.0 [facility] Comment on above: Order Comment: Speci men Type: BLOOD SPECIMENOrdering Facility: [facility] Address: [address] [place] [address] Result Comment: Anti -centromere antibody is used as in aid in diagnosis of systemic sclerosis. Clinical correlation is required. Test Methodology: Multiplex flow immunoassay. Performed By: #### 5 1775-5, 86381-1, 10711-9, 48107-2, 46040-1, 55759-2, 13265-8, ANAIFR, 11744-5, 04557-5 ####[facility] LABIA [id number] [place] [address] [place] CENTROMERE AB QUAL Negative Normal Negative [facility] Comment on above: Order Comment: Speci men Type: BLOOD SPECIMENOrdering Facility: [facility] Address: [address] [place] [address] Performed By: #### 5 1775-5, 03970-2, 63797-7, 42559-0, 17589-0, 33333-7, 11671-9, ANAIFR, 77742-7, 08395-7 ####[facility] LABIA [id number] [place] [address] [place] Chromatin Ab Qnon 06-24-2024 CHROMATIN AB QUAL Negative Normal Negative [facility] Comment on above: Order Comment: Speci men Type: BLOOD SPECIMENOrdering Facility: [facility] Address: [address] [place] [address] Performed By: #### 5 1775-5, 35211-8, 54628-5, 42934-8, 81008-8, 05505-8, 10630-7, ANAIFR, 35239-3, 30293-4 ####[facility] LABIA [id number] [place] [address] [place] Chromatin Ab SerPl-aCncon Chromatin Ab Qn <0.2 Normal <1.0 [facility] Comment on above: Order Comment: Speci men Type: BLOOD SPECIMENOrdering Facility: [facility] Address: [address] [place] [address] Result Comment: Test Methodology: Multiplex flow immunoassay. Performed By: #### 5 1775-5, 44574-4, 70791-4, 51763-3, 82298-2, 15141-1, 28184-6, ANAIFR, 62314-5, 65915-1 ####[facility] LABCLIA [id number] [place] [address] [place] Comprehensive metabolic 2000 panelon 06-24-2024 Albumin [Mass/Vol] 4.5 g/dL Normal 3.9-4.9 [facility] Comment on above: Order Comment: Speci men Type: BLOOD SPECIMENOrdering Facility: [facility] Address: [address] [place] [address] Performed By: #### 3 016-3, 4498-2, 2157-01, 1987-12, , , 4485-04 ####[facility] LABCLIA [id number] [place] [address] [place] ALP [Catalytic activity/Vol] 83 U/L Normal 38-113 [facility] Comment on above: Order Comment: Speci men Type: BLOOD SPECIMENOrdering Facility: [facility] Address: [address] [place] [address] Performed By: #### 3 016-3, 4498-2, 2157-01, 1987-12, 46877-7, , 4485-04 ####[facility] LABCLIA [id number] [place] [address] [place] ALT [Catalytic activity/Vol] 27 U/L Normal 10-54 [facility] Comment on above: Order Comment: Speci men Type: BLOOD SPECIMENOrdering Facility: [facility] Address: [address] [place] [address] Performed By: #### 3 016-3, 4498-2, 2157-01, 1987-12, 11361-3, 52595-3, 4485-04 ####[facility] LABCLIA [id number] [address] [address] [place] Anion gap [Moles/Vol] 13 mmol/L Normal 8-15 [facility] Comment on above: Order Comment: Speci men Type: BLOOD SPECIMENOrdering Facility: [facility] Address: [address] [place] [address] Performed By: #### 3 016-3, 4498-2, 2157-01, 1987-12, , , 4485-04 ####[facility] LABCLIA [id number] [place] [id number] [place] AST [Catalytic activity/Vol] 21 U/L Normal 14-40 [facility] Comment on above: Order Comment: Speci men Type: BLOOD SPECIMENOrdering Facility: [facility] Address: [address] [place] [address] Performed By: #### 3 016-3, 4498-2, 2157-01, 1987-12, , , 4485-04 ####[facility] LABCLIA [id number] [place] [id number] [place] Bilirubin [Mass/Vol] 0.7 mg/dL Normal 0.2-1.3 [facility] Comment on above: Order Comment: Speci men Type: BLOOD SPECIMENOrdering Facility: [facility] Address: [address] [place], [place] [address] Performed By: #### 3 016-3, 4498-2, 2157-01, 1987-12, , , 4485-04 ####[facility] LABCLIA [id number] [place] [id number] [place] Calcium [Mass/Vol] 9.8 mg/dL Normal 8.5-10.2 [facility] Comment on above: Order Comment: Speci men Type: BLOOD SPECIMENOrdering Facility: [facility] Address: [address] [place] [address] Performed By: #### 3 016-3, 4498-2, 2157-01, 1987-12, , , 4485-04 ####[facility] LABCLIA [id number] [facility] [address] [address] [place] Chloride [Moles/Vol] 106 mmol/L Normal 98-107 [facility] Comment on above: Order Comment: Speci men Type: BLOOD SPECIMENOrdering Facility: [facility] Address: [address] [place] [address] Performed By: #### 3 016-3, 4498-2, 2157-01, 1987-12, , , 4485-04 ####[facility] LABCLIA [id number] [place] [id number] [place] CO2 [Moles/Vol] 23 mmol/L Normal 22-30 [facility] Comment on above: Order Comment: Speci men Type: BLOOD SPECIMENOrdering Facility: [facility] Address: [address] [place] [address] Performed By: #### 3 016-3, 4498-2, 2157-01, 1987-12, , , 4485-04 ####[facility] LABCLIA [id number] [facility] [place] [id number] [place] Creatinine [Mass/Vol] 0.61 mg/dL Low 0.73-1.22 [facility] Comment on above: Order Comment: Speci men Type: BLOOD SPECIMENOrdering Facility: [facility] Address: [address] [place], [place] [address] Performed By: #### 3 016-3, 4498-2, 2157-01, 1987-12, , , 4485-04 ####[facility] LABCLIA [id number] [facility] [place] [id number] [place] Creatinine and Glomerular filtration rate.predicted panel (S/P/Bld) 120 mL/min/1.73m??? Normal >=60 [facility] Comment on above: Order Comment: Deborah finley Type: BLOOD SPECIMENOrdering Facility: [facility] Address: [address] [place] [address] Result Comment: Alexa mated Glomerular Filtration Rate (eGFR) is calculated using the 2020 CKD-EPI creatinine equation. This equation utilizes serum creatinine, sex, and age as parameters. The creatinine assay has traceable calibration to isotope dilution-mass spectrometry. Refer to KDIGO guidelines for clinical interpretation. In patients with unstable renal function, e.g. those with acute kidney injury, the eGFR may not accurately reflect actual GFR. Performed By: #### 3 016-3, 4498-2, 2157-01, 1987-12, 25990-3, , 4485-04 ####[facility] LABCLIA [id number] [place] [address] [place] Glucose [Mass/Vol] 127 mg/dL High 74-99 [facility] Comment on above: Order Comment: Deborah finley Type: BLOOD SPECIMENOrdering Facility: [facility] Address: [address] [place] [address] Result Comment: The [place] [employer] (ADA) provides guidance for cutoff values for fasting glucose and random glucose. The ADA defines fasting as no caloric intake for at least 8 hours. Fasting plasma glucose results between 100 to 125 mg/dL indicate increased risk for diabetes (prediabetes). Fasting plasma glucose results greater than or equal to 126 mg/dL meet the criteria for diagnosis of diabetes. In the absence of unequivocal hyperglycemia, results should be confirmed by repeat testing. In a patient with classic symptoms of hyperglycemia or hyperglycemic crisis, random plasma glucose results greater than or equal to 200 mg/dL meet the criteria for diagnosis of diabetes. Reference: Standards of Medical Care in Diabetes 2016, [place] [employer]. Diabetes Care. 2016.39(Suppl 1). Performed By: #### 3 016-3, 4498-2, 2157-01, 1987-12, 87514-1, 02691-2, 4485-04 ####[facility] LABCLIA [id number] [address] [address] [place] Potassium [Moles/Vol] 3.8 mmol/L Normal 3.7-5.1 [facility] Comment on above: Order Comment: Speci men Type: BLOOD SPECIMENOrdering Facility: [facility] Address: [address] [place], [place] [address] Performed By: #### 3 016-3, 4498-2, 2157-01, 1987-12, , , 4485-04 ####[facility] LABCLIA [id number] [address] [address] [place] Protein [Mass/Vol] 7.5 g/dL Normal 6.3-8.0 [facility] Comment on above: Order Comment: Speci men Type: BLOOD SPECIMENOrdering Facility: [facility] Address: [address] [place] [address] Performed By: #### 3 016-3, 4498-2, 2157-01, 1987-12, , , 4485-04 ####[facility] LABCLIA [id number] [place] [id number] [place] Sodium [Moles/Vol] 142 mmol/L Normal 136-144 [facility] Comment on above: Order Comment: Speci men Type: BLOOD SPECIMENOrdering Facility: [facility] Address: [address] [place], [place] [address] Performed By: #### 3 016-3, 4498-2, 2157-01, 1987-12, , , 4485-04 ####[facility] LABCLIA [id number] [address] [address] [place] Urea nitrogen [Mass/Vol] 7 mg/dL Low 9-24 [facility] Comment on above: Order Comment: Speci men Type: BLOOD SPECIMENOrdering Facility: [facility] Address: [address] [place], [place] [address] Performed By: #### 3 016-3, 4498-2, 2157-6, 1987-5, 21542-3, 01874-3, 4485-9 ####[facility] LABCLIA [id number] [place] [address] [place] Cyclic citrullinated peptide IgG Qnon 06-24-2024 CCP ANTIBODY IGG QUALITATIVE Positive Abnormal Negative [facility] Comment on above: Order Comment: Speci men Type: BLOOD SPECIMEN Ordering Facility: [facility] Address: [address] [place] [address] Performed By: #### L [id number] #### [facility] CLIA [id number] [address] [place] [address] [place] DNA double strand Ab IA Qn ( S)on 06-24-2024 DNA ANTIBODY 81 IU/mL Normal <=200 [facility] Comment on above: Order Comment: Speci men Type: BLOOD SPECIMENOrdering Facility: [facility] Address: [address] [place] [address] Result Comment: Nega tive: <200 IU/mL Equivocal: 201-300 IU/mL Moderate Positive: 301-800 IU/mL Strong Positive: >801 IU/mL Performed By: #### 5 1775-5, 08338-1, 02326-9, 58678-8, 00847-6, 29204-8, 31018-3, ANAIFR, 42859-3, 34183-8 ####[facility] [facility] LABCLIA [id number] [address] [place] DNA ANTIBODY QUALITATIVE INTERPRETATION Negative Normal Negative [facility] Comment on above: Order Comment: Speci men Type: BLOOD SPECIMENOrdering Facility: [facility] Address: [address] [place] [address] Performed By: #### 5 1775-5, 22017-6, 84511-5, 81736-7, 39586-9, 41422-8, 58974-2, ANAIFR, 09713-5, 69085-2 ####[facility] LABCLIA [id number] [address] [address] [place] ED NOTEon 06-24-2024 ED NOTE HNO ID: [id number] Author: WINTER WILSON, FERNANDA Service: Emergency Medicine Author Type: Registered Nurse Type: ED Notes Filed: 06/24/2024 14:05 Note Text: Pt reports symptoms since December. Reports he brooks been having increasing numbness/weakness to all his extremities. Normal [facility] ED PROV NOTEon 06-24-2024 ED PROV NOTE HNO ID: [id number] Author: DI SOSA DO, DPM Service: Emergency Medicine Author Type: Physician Type: ED Provider Notes Filed: 06/26/2024 09:51 Note Text: ED Provider Note Patient Name: Bhumika Umana : 1975 SERVICE DATE: 06/24/24 History Patient presents with: Weakness Bhumika Umana is a 48 year old male with a pmh of T2DM, HTN, RA previously on humira for 1.5 years stopped in 2019, osteoarthritis of both hands presenting today for a second opinion regarding his bilateral upper extremity weakness and numbness. Patient states everything started in december 2023, where he noticed numbness in his fingers bilaterally. He also experienced profound weakness in bilateral handgrip that has now progressed more proximally. He also endorses transient weakness in bilateral lower extremities that has caused him to fall multiple times. He most recently fell two days ago without any LOC and was seen at the local ED who recommended he follow up with neurology. Workup thus far hasincluded an EMG in January [address] CT showed moderate stenosis at C2-3 and C3-4. He was seen in [facility] who obtained MRI brain and c-spine in February 2024 which showed Focal areas of abnormal signal are seen on the T2 and T2 FLAIR imaging within the white matter and There is a broad-based disc bulge with [...] left and moderate right neural foraminal stenosis. , respectively. CSF studies showed: TNC 85, RBC 3051, neut 72%, lymph 19%, glucose 72, protein 84, no oligoclonal bands, IgG index 0.6, albumin 46, MBP 2.7, PCR results not listed in chart. Patient states he was seen by rheumatology who recommended he seek a second opinion at [facility]'s rheumatology center. He was most recently seen by neurology in April who recommended repeating an EMG and to follow up in 3 months. 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 Of note, patient has been unable to work and is currently living with his brother after being recently kicked out of his previous home. PAST MEDICAL HISTORY Diagnosis Date Depression Essential hypertension Former smoker Insomnia Mixed hyperlipidemia EDDI (obstructive sleep apnea) Rheumatoid arthritis (HCC) Type 2 diabetes (HCC) No past surgical history on file. No family history on file. Social History Tobacco Use Smoking status: Former Smokeless tobacco: Not on file Substance and Sexual Activity Alcohol use: Not on file Drug use: Not on file Sexual activity: Not on file ALLERGIES Allergen Reactions Adhesive Tape (Aidee* Rash Penicillins Unknown Review of Systems Constitutional: Positive for activity change. Negative for chills and fever. HENT: Negative for congestion and sore throat. Respiratory: Negative for cough and shortness of breath. Cardiovascular: Negative for chest pain and leg swelling. Gastrointestinal: Negative for abdominal pain, diarrhea, nausea and vomiting. Genitourinary: Negative for difficulty urinating and dysuria. Musculoskeletal: Negative for back pain, gait problem and neck pain. Skin: Negative for pallor and rash. Neurological: Positive for weakness and numbness. Negative for dizziness, facial asymmetry, light-headedness and headaches. Physical Exam Vitals BP Pulse Temp Temp src Resp SpO2 Weight Height 06/24/24 1403 06/24/24 1403 06/24/24 1403 06/24/24 1403 06/24/24 1403 06/24/24 1403 06/24/24 2223 06/24/24 2223 164/98 75 36.4 ?C (97.5 ?F) Oral 18 98 % (!) 142.4 kg (313 lb 15 oz) 1.905 m (6' 3 ) Physical Exam Constitutional: Appearance: Normal appearance. Eyes: Extraocular Movements: Extraocular movements intact. Pupils: Pupils are equal, round, and reactive to light. Cardiovascular: Rate and Rhythm: Normal rate and regular rhythm. Heart sounds: Normal heart sounds. Pulmonary: Effort: Pulmonary effort is normal. No respiratory distress. Breath sounds: Normal breath sounds. No wheezing. Abdominal: General: Bowel sounds are normal. Palpations: Abdomen is soft. Tenderness: There is no abdominal tenderness. Musculoskeletal: Cervical back: Normal range of motion and neck supple. Neurological: Mental Status: He is alert and oriented to person, place, and time. GCS: GCS eye subscore is 4. GCS verbal subscore is 5. GCS motor subscore is 6. Cranial Nerves: Cranial nerves 2-12 are intact. Sensory: No sensory deficit. Motor: No weakness. Coordination: Coordination is intact (more content not included)... Normal [facility] ED Triage Noteon 06-24-2024 ED Triage Note HNO ID: [id number] Author: DAVE PAGAN MD Service: Emergency Medicine Author Type: Physician Type: ED Triage Notes Filed: 06/24/2024 14:03 Note Text: ED TRIAGE PROVIDER NOTE Patient Name: Bhumika Umana Service Date: 06/24/24 BRIEF HPI: This is a 48 year old male who presents to the ED with: yesterday fell for the second time in a week, can't do stuff for myself 05/01/24 outpatient neuro note: 48-year-old male was initially seen in outpatient Neurological consultation for cervical stenosis. PCP is Dr Hickman. Medical history includes depression, hypertension, diabetes mellitus type 2, obstructive sleep apnea - untreated, rheumatoid arthritis, and hyperlipidemia. He did have a cervical CT that showed moderate stenosis at C2/3 and C3/4 which does not explain symptoms specifically in the hands. BUE EMG normal. Patient was recently seen at [facility] and then transferred to [facility] 03/30/2024 for progressive bilateral distal upper extremity weakness, which started in late December 2023. He also was experiencing some bilateral lower extremity weakness at the time that caused a fall. The sudden weakness in his lower extremity was attributed to sitting too long. He has a reported history of type 2 diabetes, hypertension, depression, and RA diagnosed at 23 and has an upcoming outpatient follow up with rheumatology. He was on Neris in the past for this for about 20 years but is no longer on this. He is currently getting a work up for Sjogren's disease. He had a brain MRI in the hospital that revealed white matter changes and could not exclude demyelinating process. MRI of the cervical spine revealed broad based disc bulge with central disc extrusion at C3-C4, C4-C5, C5-C6, and C6-C7. LP revealed zero oligoclonal bands, IgG synthesis rate 6.0, and myelin basic protein was 2.7, lyme negative. Some of his weakness was suspected to be due to debility. 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 Patient also notes that he has stopped all of his medications and feels symptoms have improved some. I advised that he should reach out to his PCP today to discuss resuming medications, especially his medications for his blood pressure and diabetes. He verbalized understanding. BRIEF EXAM: NAD Awake and Alert Non labored breathing INITIAL WORKUP AND DECISION MAKING: Orders Placed This Encounter CBC + DIFF COMP METABOLIC PANEL (BMP+LFT) MAGNESIUM BLD C-REACTIVE PROTEIN (CRP) CK CREATINE KINASE Sedimentation Rate, Westergren SIGNATURE: Dave Pagan MD Normal [facility] VIJAY Jo1 Ab Ser-aCncon 2023 Ivanna-1 extractable nuclear Ab Qn (S) <0.2 Normal <1.0 [facility] Comment on above: Order Comment: Deborah finley Type: BLOOD SPECIMENOrdering Facility: [facility] Address: [address] [place] [address] Performed By: #### 5 1775-5, 51628-0, 91589-4, 28742-0, 42871-0, 72261-4, 46638-1, ANAIFR, 10949-3, 21423-4 ####[facility] LABCLIA [id number] [place] [address] [place] VIJAY ASSISTED LIVING EXECUTIVE DIRECTOR Ab Ser-aCncon 2023 Ribonucleoprotein extractable nuclear Ab Qn (S) <0.2 Normal <1.0 [facility] Comment on above: Order Comment: Speci men Type: BLOOD SPECIMENOrdering Facility: [facility] Address: [address] [place] [address] Performed By: #### 5 1775-5, 16018-4, 74608-5, 50873-4, 88778-1, 29915-6, 31214-0, ANAIFR, 48138-7, 59420-4 ####[facility] LABCLIA [id number] [place] [address] [place] Ribonucleoprotein extractable nuclear Ab Qn (S) 0.5 AI Normal <1.0 [facility] Comment on above: Order Comment: Speci men Type: BLOOD SPECIMENOrdering Facility: [facility] Address: [address] [place] [address] Performed By: #### 5 1775-5, 93817-7, 04503-4, 67313-0, 92486-8, 75296-8, 16518-9, ANAIFR, 75107-8, 76743-8 ####[facility] LABCLIA [id number] [place] [address] [place] VIJAY SM IgG Ser-aCncon 2023 Kennedy extractable nuclear IgG Qn (S) <0.2 Normal <1.0 [facility] Comment on above: Order Comment: Speci men Type: BLOOD SPECIMENOrdering Facility: [facility] Address: [address] [place] [address] Performed By: #### 5 1775-5, 74777-6, 49827-5, 96089-8, 78601-1, 39578-2, 81656-4, ANAIFR, 16169-0, 75225-6 ####[facility] LABCLIA [id number] [place] [address] [place] VIJAY SS-A Ab Ser-aCncon 06-24 Sjogrens syndrome-A extractable nuclear Ab Qn (S) <0.2 Normal <1.0 [facility] Comment on above: Order Comment: Speci men Type: BLOOD SPECIMENOrdering Facility: [facility] Address: [address] [place] [address] Result Comment: Test Methodology: Multiplex flow immunoassay. Performed By: #### 5 1775-5, 57955-0, 99123-9, 71811-0, 54524-6, 67673-4, 17375-1, ANAIFR, 69925-1, 18108-1 ####[facility] LABIA [id number] [place] [address] [place] VIJAY SS-B Ab Ser-aCncon 06-24 Sjogrens syndrome-B extractable nuclear Ab Qn (S) <0.2 Normal <1.0 [facility] Comment on above: Order Comment: Speci men Type: BLOOD SPECIMENOrdering Facility: [facility] Address: [address] [place] [address] Result Comment: Anti -SSB (anti-La) antibody is used as an aid in diagnosis of a variety of systemic autoimmune diseases, especially for Sjogren's syndrome and systemic lupus erythematosus. Clinical correlation is required. Test Methodology: Multiplex flow immunoassay. Performed By: #### 5 1775-5, 99270-7, 16875-1, 07677-8, 23258-3, 16232-3, 04273-4, ANAIFR, 11207-3, 37443-1 ####[facility] LABIA [id number] [place] [address] [place] ESR Westergren method (Bld) [Velocity]on 06-24-2024 ESR (Bld) [Velocity] 8 mm/h Normal 0-15 [facility] Comment on above: Order Comment: Speci men Type: BLOOD SPECIMENOrdering Facility: [facility] Address: [address] [place] [address] Performed By: #### 5 5454-3, 58955-1, 4537-7 ####[facility] LABIA [id number] [place] [address] [place] HISTORY PHYSICALon HISTORY PHYSICAL HNO ID: [id number] Author: LELAND DANG MD Service: General Internal Medicine Author Type: Resident Type: H&P Filed: 06/25/2024 18:30 Note Text: -- Attestation signed by Leland Dang MD at 06/25/2024 6:30 PM Attending Note I evaluated the patient and personally participated in the wisdom components. I agree with the resident's findings and plan as documented and have discussed the case and management of the patient's care with the resident. Signature: Leland Dang MD Date: 06/25/2024 Time: 6:30 PM -- DEPARTMENT OF HOSPITAL MEDICINE HISTORY AND PHYSICAL EXAM SERVICE DATE: 06/25/2024 SERVICE TIME: 11:51 AM Primary Care Physician: Cecy Hernandez CNP, DINKEY ENGINE MECHANIC NIGHT AND WEEKEND COVERAGE: [facility] COVERAGE: Days: [phone], please page Estiven Palmer for patient issues. Subjective CHIEF COMPLAINT: Weakness in arms and legs HPI: This is a 48 year old male Bhumika Umana is a 48 year old male with a pmh of T2DM, HTN, RA previously on humira for 1.5 years stopped in 2019, osteoarthritis of both hands, depression, EDDI presenting today for a second opinion regarding his bilateral upper extremity weakness and numbness. Patient states everything started in December 2023, where he noticed numbness in his fingers bilaterally. He also experienced profound weakness in bilateral handgrip that has now progressed more proximally. He also endorses transient weakness in bilateral lower extremities that has caused him to fall multiple times over the past 5 months. Recently, he fell and hit his shoulder and head against the wall. 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 Some days are more challenging than others, but overall, his condition has been gradually worsening. The bilateral weakness in the hand and biceps are constant and progressive as he describes (with some fluctuations), but the weakness in the legs are described as more acute with close to complete recovery after few hours of the weakness and fall. He most recently fell two days ago without any LOC and was seen at the local ED who recommended he follow up with neurology. He denies muscle pain or loss of sensation. Associated with the weakness, he has experienced intermittent night sweats during these months and has noticed some unintentional weight loss (dropping from 360 lbs in July 2023 to around 330 lbs), giving him the feeling that he is losing muscle. He also has a rash on his chest, consisting of several flat spots a few centimeters in diameter. The rash is itchy but not painful to the touch. It developed most recently a few days ago, but he has experienced similar symptoms intermittently over the past few years without any identifiable trigger. Due to these issues, he has looked for medical assistance. A mainstreaming facilitator recently informed him that he does not have rheumatoid arthritis, despite having been diagnosed with it decades ago. 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 He was seen in [facility] who obtained MRI brain and c-spine in February 2024 which showed Focal areas of abnormal signal are seen on the T2 and T2 FLAIR imaging within the white matter and There is a broad-based disc bulge with [...] severe left and moderate right neural foraminal stenosis Per ED note: CSF studies showed: TNC 85, RBC 3051, neut 72%, lymph 19%, glucose 72, protein 84, no oligoclonal bands, IgG index 0.6, albumin 46, MBP 2.7, PCR results not listed in chart. Patient states he was seen by rheumatology who recommended he seek a second opinion at [facility]'s rheumatology center. 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 Social history: Patient has been unable to work and is currently living with his brother after being recently kicked out of his previous home. He denies any new sexual exposure. No alcohol use for the past 20 years. Former smoker: 20 - 36 years old (0.5 - 1 pack/day) PAST MEDICAL HISTORY Diagnosis Date Depression Essential hypertension Former smoker Insomnia Mixed hyperlipidemia EDDI (obstructive sleep apnea) Rheumatoid arthritis (HCC) Type 2 diabetes (HCC) No past surgical history on file. No (more content not included)... Normal [facility] HbA1c (Bld)on 06-24-2024 Average glucose Estimated from glycated hemoglobin (Bld) [Mass/Vol] 134 mg/dL Normal [facility] Comment on above: Order Comment: Deborah finley Type: BLOOD SPECIMENOrdering Facility: [facility] Address: [address] [place] [address] Result Comment: eAG: (Estimated average glucose) is a calculated value from HgbA1c and is front desk representative of the average blood glucose level in the last 2-3 month period. Performed By: #### 5 5454-3, 40780-1, 4537-7 ####[facility] LABCLIA [id number] [place] [address] [place] HbA1c (Bld) [Mass fraction] 6.3 % High 4.3-5.6 [facility] Comment on above: Order Comment: Joeli malia Type: BLOOD SPECIMENOrdering Facility: [facility] Address: [address] [place] [address] Result Comment: [place] Diabetes Association guidelines indicate that patients with HgbA1c in the range 5.7-6.4% are at increased risk for development of diabetes, and intervention by lifestyle modification may be beneficial. HgbA1c greater or equal to 6.5% is considered diagnostic of diabetes. Performed By: #### 5 5454-3, 51482-3, 4537-7 ####[facility] [id number] [address] [address] [place] Ivanna-1 extractable nuclear Ab Qn (S)on 06-24-2024 IVANNA 1 ANTIBODY QUAL Negative Normal Negative [facility] Comment on above: Order Comment: Speci men Type: BLOOD SPECIMENOrdering Facility: [facility] Address: [address] [place] [address] Result Comment: Anti -IVANNA-1 antibody is used as an aid in diagnosis of polymyositis and dermatomyositis especially with pulmonary involvement. A negative result cannot rule out polymyositis or dermatomyositis. Clinical correlation is required. Test Methodology: Multiplex flow immunoassay. Performed By: #### 5 1775-5, 82845-7, 20343-5, 66460-0, 88899-1, 37273-9, 83736-4, ANAIFR, 84282-8, 76412-3 ####[facility] [id number] [address] [address] [place] Magnesium SerPl-mCncon 06-24 Magnesium [Mass/Vol] 1.8 mg/dL Normal 1.7-2.3 [facility] Comment on above: Order Comment: Speci men Type: BLOOD SPECIMENOrdering Facility: [facility] Address: [address] [place], [place] [address] Performed By: #### 3 016-3, 4498-2, 2157-6, 1987-5, 07665-5, 38857-7, 4485-9 ####[facility] [id number] [address] [address] [place] NURSING PROGon 06-24-2024 NURSING PROG HNO ID: [id number] Author: LINDY DUCKWORTH RN Service: ? Author Type: Registered Nurse Type: Nursing Progress Note Filed: 06/24/2024 19:04 Note Text: Transfer Note: PATIENT NAME: Bhumika Umana Patient Location: [place] [address]/[facility] Room: [place] [address] Patient transferred into room/unit [facility]- in stable condition. Actions taken: No futher actions taken at this time. Will continue to monitor and check with patient. Normal [facility] Reagin and Treponema pallidu m IgG and IgM [Interp]on 06-24-2024 T. pallidum IgG+IgM IA Ql (S) Non-Reactive Normal Nonreactive [facility] Comment on above: Order Comment: Speci men Type: BLOOD SPECIMEN Ordering Facility: [facility] Address: [address] [place] [address] Performed By: #### L [id number] #### [facility] CLIA [id number] [address] [place] [address] [place] Reagin+T pallidum IgG+IgM Se rPl-Impon 06-24-2024 Reagin and Treponema pallidum IgG and IgM [Interp] Cannot exclude recent Treponemal infection if specimen collected within 7-10 days after appearance of suspect lesions or 2-3 weeks after an exposure. Clinical correlation is required. Normal [facility] Comment on above: Order Comment: Deborah finley Type: BLOOD SPECIMEN Ordering Facility: [facility] Address: [address] [place] [address] Performed By: #### L [id number] #### [facility] CLIA [id number] [address] [place] [address] [place] Rheumatoid fact SerPl-aCncon 06-24-2024 Rheumatoid factor Qn 17 [IU]/mL High <16 [facility] Comment on above: Order Comment: Joeli malia Type: BLOOD SPECIMENOrdering Facility: [facility] Address: [address] [place] [address] Performed By: #### 1 1572-5, 2157-6 ####[facility] LABCLIA [id number] [place] [address] [place] Ribonucleoprotein extractabl e nuclear Ab Qn (S)on 06-24-2024 ANTI-ASSISTED LIVING EXECUTIVE DIRECTOR QUAL Negative Normal Negative [facility] Comment on above: Order Comment: Speci men Type: BLOOD SPECIMENOrdering Facility: [facility] Address: [address] [place] [address] Performed By: #### 5 1775-5, 61435-2, 89508-6, 09309-8, 28343-1, 17976-2, 93322-4, ANAIFR, 55552-9, 15837-3 ####[facility] LABCLIA [id number] [place] [address] [place] RIBOSOMAL ASSISTED LIVING EXECUTIVE DIRECTOR QUAL Negative Normal Negative [facility] Comment on above: Order Comment: Speci men Type: BLOOD SPECIMENOrdering Facility: [facility] Address: [address] [place] [address] Result Comment: Anti -Ribosomal RNA (Ribosomal P) antibody is used as an aid in diagnosis of systemic autoimmune diseases especially systemic lupus erythematosus and mixed connective tissue disease. Cross-reactivity with Anti-kennedy antibody is not uncommon. Clinical correlation is required. Test Methodology: Multiplex flow immunoassay. Performed By: #### 5 1775-5, 40643-6, 88518-8, 43261-2, 93504-4, 38273-2, 94986-3, ANAIFR, 46596-8, 36905-0 ####[facility] LABCLIA [id number] [place] [id number] [place] SCL-70 extractable nuclear I gG IA Qn (S)on 06-24-2024 SCLERODERMA AB QUAL Negative Normal Negative [facility] Comment on above: Order Comment: Speci men Type: BLOOD SPECIMENOrdering Facility: [facility] Address: [address] [place] [address] Performed By: #### 5 1775-5, 30081-5, 32466-1, 16490-7, 96315-1, 88269-9, 35878-9, ANAIFR, 29437-7, 70365-0 ####[facility] LABCLIA [id number] [place] [address] [place] SCLERODERMA IGG AB <0.2 Normal <1.0 [facility] Comment on above: Order Comment: Speci men Type: BLOOD SPECIMENOrdering Facility: [facility] Address: [address] [place] [address] Result Comment: Scl- 70/Scleroderma antibody test is used as an aid in diagnosis of systemic sclerosis especially the diffuse cutaneous form. A negative result cannot rule out systemic sclerosis. The final interpretation should consider clinical picture and other test results such as anti-centromere antibody. Test Methodology: Multiplex flow immunoassay. Performed By: #### 5 1775-5, 58374-9, 12884-2, 91942-3, 15540-3, 08161-5, 83766-5, ANAIFR, 23708-8, 71613-9 ####[facility] LABCLIA [id number] [place] [address] [place] Sjogrens syndrome-A extracta ble nuclear Ab Qn (S)on 06-24-2024 SSA ANTIBODY QUAL Negative Normal Negative [facility] Comment on above: Order Comment: Speci men Type: BLOOD SPECIMENOrdering Facility: SELECT [facility] Address: [address] [place] [address] Performed By: #### 5 1775-5, 10593-9, 75437-0, 87550-4, 07040-6, 26901-0, 38750-6, ANAIFR, 24071-4, 60677-6 ####[facility] LABCLIA [id number] [place] [address] [place] Sjogrens syndrome-B extracta ble nuclear Ab Qn (S)on 06-24-2024 SSB ANTIBODY QUAL Negative Normal Negative [facility] Comment on above: Order Comment: Speci men Type: BLOOD SPECIMENOrdering Facility: [facility] Address: [address] [place] [address] Performed By: #### 5 1775-5, 37502-4, 23719-0, 96096-6, 47945-4, 96197-8, 38615-7, ANAIFR, 75529-0, 39787-8 ####[facility] LABIA [id number] [place] [id number] [place] Kennedy extractable nuclear Ig G Qn (S)on 06-24-2024 SM ANTIBODY QUAL Negative Normal Negative [facility] Comment on above: Order Comment: Speci men Type: BLOOD SPECIMENOrdering Facility: [facility] Address: [address] [place] [address] Result Comment: Anti -Sm (Kennedy) antibody is used as an aid in diagnosis of systemic lupus erythematosus and its presence is associated with renal disease. A negative result cannot rule out systemic lupus erythematosus. Clinical correlation is required. Test Methodology: Multiplex flow immunoassay. Performed By: #### 5 1775-5, 76248-2, 86940-1, 83410-8, 68211-5, 83849-1, 76540-1, ANAIFR, 77851-8, 43100-7 ####[facility] LABIA [id number] [place] [id number] [place] TSH SerPl-aCncon 06-24-2024 TSH Qn 1.040 m[IU]/L Normal 0.270-4.200 [facility] Comment on above: Order Comment: Joeli malia Type: BLOOD SPECIMENOrdering Facility: [facility] Address: [address] [place] [address] Performed By: #### 3 016-3, 4498-2, 2157-6, 1987-5, 89469-5, 01497-1, 4485-9 ####[facility] LABIA [id number] [place] [id number] [place] VITAMIN B12 W/REFLEXon 06-24 Cobalamin (Vitamin B12) [Mass/Vol] 570 pg/mL Normal 232-1245 [facility] Comment on above: Order Comment: Speci men Type: BLOOD SPECIMEN Ordering Facility: [facility] Address: [address] [place] [address] Performed By: #### L [id number] #### [facility] CLIA [id number] [address] [place] [address] [place] cCP IgG SerPl-aCncon 024 Cyclic citrullinated peptide IgG Qn >250 High <20 [facility] Comment on above: Order Comment: Speci men Type: BLOOD SPECIMEN Ordering Facility: [facility] Address: [address] [place] [address] Performed By: #### L [id number] #### [facility] CLIA [id number] [address] [place] [address] [place] CBC AND AUTO DIFFon 06-12-20 24 ABSOLUTE BASOPHIL 0.0 X10E9/L Normal 0.0-0.2 [facility] Comment on above: Performed By: #### C POOL, 14910-5, CMP, 1987-12, 4485-04, 449-2, ENAP #### [facility] ([id number]) [address], [address] [place] [address] ABSOLUTE NEUTROPHIL 5.5 X10E9/L Normal 1.5-6.6 [facility] Comment on above: Performed By: #### C POOL, 82753-8, CMP, 1987-12, 4485-04, 4498-2, ENAP #### [facility] ([id number]) [address] [place] [address] Basophils/100 WBC (Bld) 0.4 % Normal [facility] Comment on above: Performed By: #### C POOL, 41190-8, CMP, 1987-12, 4485-04, 4492, ENAP #### [facility] ([id number]) [address], [address] [place] [address] Eosinophils (Bld) [#/Vol] 0.2 10*3/uL Normal 0.0-0.4 [facility] Comment on above: Performed By: #### C POOL, 13987-9, CMP, 1987-12, 4485-04, 449-2, ENAP #### [facility] ([id number]) [address], [address] [place] [address] Eosinophils/100 WBC (Bld) 2.8 % Normal [facility] Comment on above: Performed By: #### C POOL, 23896-2, CMP, 1987-12, 4485-04, 449-2, ENAP #### [facility] ([id number]) [address], [facility] [address] [place] [address] Erythrocyte distribution width (RBC) [Ratio] 13.2 % Normal 11.5-15.0 [facility] Comment on above: Performed By: #### C POOL, 67162-2, [facility], 1987-12, 4485-04, 2, ENAP #### [facility] ([id number]) [address], [facility] [address] [place] [address] Hematocrit (Bld) [Volume fraction] 45.8 % Normal 39-49 [facility] Comment on above: Performed By: #### C POOL, 23704-0, CMP, 1987-12, 4485-04, 449-2, ENAP #### [facility] ([id number]) [address] [address] [place] [address] Hemoglobin (Bld) [Mass/Vol] 14.8 g/dL Normal 13.0-17.0 [facility] Comment on above: Performed By: #### C POOL, 62952-2, CMP, 1987-12, 4485-04, 449-2, ENAP #### [facility] ([id number]) [address] [address] Lymphocytes (Bld) [#/Vol] 1.7 10*3/uL Normal 1.0-3.5 [facility] Comment on above: Performed By: #### C POOL, 63110-9, CMP, 1987-12, 4485-04, 449-2, ENAP #### [facility] ([id number]) [address], [address] [place] [address] Lymphocytes/100 WBC (Bld) 20.7 % Normal [facility] Comment on above: Performed By: #### C POOL, 54838-7, CMP, 1987-12, 4485-04, 4497-2, ENAP #### [facility] ([id number]) [address], [address] [place] [address] MCH (RBC) [Entitic mass] 28.8 pg Normal 27-34 [facility] Comment on above: Performed By: #### C POOL, 33479-2, CMP, 1987-12, 4485-04, 2, ENAP #### [facility] ([id number]) [address], [address] [place] [address] MCHC (RBC) [Mass/Vol] 32.4 g/dL Normal 32-36 [facility] Comment on above: Performed By: #### C POOL, 42721-3, CMP, 1987-12, 4485-04, 4492, ENAP #### [facility] ([id number]) [address], [address] [place] [address] MCV (RBC) [Entitic vol] 89 fL Normal 80-100 [facility] Comment on above: Performed By: #### C POOL, 33618-6, CMP, 1987-12, 4485-04, 4497-2, ENAP #### [facility] ([id number]) [address] [address] [place] [address] Monocytes (Bld) [#/Vol] 0.6 10*3/uL Normal 0-0.9 [facility] Comment on above: Performed By: #### Luke LANZA, 43927-2, CMP, 1987-12, 4485-04, 4498-2, ENAP #### [facility] ([id number]) [address], [address] [place] [address] Monocytes/100 WBC (Bld) 7.4 % Normal [facility] Comment on above: Performed By: #### C BCA, 02297-4, CMP, 1987-12, 4485-04, 4498-2, ENAP #### [facility] ([id number]) [address], [address] [place] [address] Neutrophils/100 WBC (Bld) 68.7 % Normal [facility] Comment on above: Performed By: #### C BCA, 86637-3, CMP, 1987-12, 4485-04, 4498-2, ENAP #### [facility] ([id number]) [address], [address] [place] [address] Platelet mean volume (Bld) [Entitic vol] 7.4 fL Normal 7-12 [facility] Comment on above: Performed By: #### C BCA, 70530-3, CMP, 1987-12, 4485-04, 4498-2, ENAP #### [facility] ([id number]) [address], [address] [place] [address] Platelets (Bld) [#/Vol] 314 10*3/uL Normal 150-450 [facility] Comment on above: Performed By: #### C BCA, 68447-4, CMP, 1987-12, 4485-04, 4498-2, ENAP #### [facility] ([id number]) [address], [address] [place] [address] RBC COUNT 5.14 X10E12/L Normal 4.10-5.70 [facility] Comment on above: Performed By: #### C BCA, 86863-4, CMP, 1987-12, 4485-04, 4498-2, ENAP #### [facility] ([id number]) [address], [address] [place] [address] WBC (Bld) [#/Vol] 8.1 10*3/uL Normal 4.0-11.0 [facility] Comment on above: Performed By: #### C BCA, 40373-6, CMP, 1987-12, 4484-9, 4498-2, ENAP #### [facility] ([id number]) [address], [address] [place] [address] CK [Catalytic activity/Vol]o n 06-12-2024 CPK 54 U/L Normal 24-195 [facility] Comment on above: Performed By: #### C BCA, 56248-2, CMP, 1987-12, 4484-9, 4498-2, ENAP #### [facility] ([id number]) [address], [address] [place] [address] COMPREHENSIVE METABOLIC PANE Rayshawn 06-12-2024 Albumin [Mass/Vol] 4.4 g/dL Normal 3.2-5.3 [facility] Comment on above: Performed By: #### C BCA, 26967-6, CMP, 1987-12, 9, 4498-2, ENAP #### [facility] ([id number]) [address], [address] [place] [address] ALP [Catalytic activity/Vol] 71 U/L Normal 39-130 [facility] Comment on above: Performed By: #### C BCA, 11905-5, CMP, 1987-12, 4484-9, 4498-2, ENAP #### [facility] ([id number]) [address], [address] [place] [address] ALT [Catalytic activity/Vol] 21 U/L Normal 0-40 [facility] Comment on above: Performed By: #### C BCA, 38714-1, CMP, 1987-12, 9, 4498-2, ENAP #### [facility] ([id number]) [address], [address] [place] [address] Anion gap [Moles/Vol] 10 mmol/L Normal 5-15 [facility] Comment on above: Performed By: #### C BCA, 07472-8, CMP, 1987-12, 4485-04, 4498-2, ENAP #### [facility] ([id number]) [address], [address] [place] [address] AST [Catalytic activity/Vol] 22 U/L Normal 0-41 [facility] Comment on above: Performed By: #### C BCA, 41565-2, CMP, 1987-12, 4485-04, 4498-2, ENAP #### [facility] ([id number]) [address], [address] [place] [address] Bilirubin [Mass/Vol] 1.0 mg/dL Normal 0.3-1.2 [facility] Comment on above: Performed By: #### C BCA, 07299-1, CMP, 1987-12, 4485-04, 4498-2, ENAP #### [facility] ([id number]) [address], [address] [place] [address] Calcium [Mass/Vol] 9.2 mg/dL Normal 8.5-10.5 [facility] Comment on above: Performed By: #### C BCA, 33007-7, CMP, 1987-12, 4485-04, 4498-2, ENAP #### [facility] ([id number]) [address], [address] [place] [address] Chloride [Moles/Vol] 102 mmol/L Normal 98-109 [facility] Comment on above: Performed By: #### C BCA, 29977-4, CMP, 1987-12, 4485-04, 449-2, ENAP #### [facility] ([id number]) [address], [address] [place] [address] CO2 [Moles/Vol] 25 mmol/L Normal 22-32 [facility] Comment on above: Performed By: #### C BCA, 61728-9, CMP, 1987-12, 4485-04, 449-2, ENAP #### [facility] ([id number]) [address], [address] [place] [address] Creatinine [Mass/Vol] 0.68 mg/dL Normal 0.60-1.30 [facility] Comment on above: Result Comment: METH OD TRACEABLE TO IDMS STANDARD Performed By: #### C BCA, 06373-0, CMP, 1987-12, 4485-04, 449-2, ENAP #### [facility] ([id number]) [address], [address] [place] [address] eGFR (CKD-EPI) NON-RACE DEPENDENT >90 Normal >59 [facility] Comment on above: Result Comment: Reported eGFR is based on the CKD-EPI 2020 equation that does not use a race coefficient. Performed By: #### C BCA, 04473-7, [facility], 1987-12, 4485-04, 449-2, ENAP #### [facility] ([id number]) [address], [address] [place] [address] Glucose [Mass/Vol] 118 mg/dL High 65-99 [facility] Comment on above: Performed By: #### C BCA, 77642-5, CMP, 1987-12, 4485-04, 449-2, ENAP #### [facility] ([id number]) [address], [address] [place] [address] Potassium [Moles/Vol] 3.8 mmol/L Normal 3.5-5.0 [facility] Comment on above: Performed By: #### C BCA, 59063-9, CMP, 1987-12, 4485-04, 4497-2, ENAP #### [facility] ([id number]) [address], [address] [place] [address] Protein [Mass/Vol] 7.5 g/dL Normal 6.0-8.0 [facility] Comment on above: Performed By: #### C BCA, 04802-3, CMP, 1987-12, 4484-9, 4498-2, ENAP #### [facility] ([id number]) [address], [address] [place] [address] Sodium [Moles/Vol] 137 mmol/L Normal 134-146 [facility] Comment on above: Performed By: #### C BCA, 80272-8, CMP, 1987-12, 4485-04, 4498-2, ENAP #### [facility] ([id number]) [address], [address] [place] [address] Urea nitrogen [Mass/Vol] 13 mg/dL Normal 5-23 [facility] Comment on above: Performed By: #### C BCA, 34401-2, CMP, 1987-12, 4485-04, 4498-2, ENAP #### [facility] ([id number]) [address], [address] [place] [address] CRP [Mass/Vol]on 06-12-2024 C REACTIVE PROTEIN 0.7 mg/dL Normal 0.000-0.744 [facility] Comment on above: Performed By: #### C BCA, 61237-8, CMP, 1987-12, 4485-04, 4498-2, ENAP #### [facility] ([id number]) [address], [address] [place] [address] ESR Photometric method (Bld) [Velocity]on 06-12-2024 ESR, ERYTHROCYTE SEDIMENTATION RATE 15 mm/h Normal 0-15 [facility] Comment on above: Performed By: #### C BCA, 57834-0, CMP, 1987-12, 4485-04, 4498-2, ENAP #### [facility] ([id number]) [address] [place] [address] LDH [Catalytic activity/Vol] on 06-12-2024 LDH 181 U/L Normal 100-235 [facility] Comment on above: Performed By: #### C BCA, 84664-4, CMP, 1988-5, 4485-9, 4498-2, ENAP #### [facility] ([id number]) [address] [facility] [place] [address] Laboratory comment Bj (Repo rt)on 06-12-2024 UNLISTED LAB TEST Sent to reference lab Normal [facility] Comment on above: Performed By: #### G O #### [employer] ([id number]) [address] [facility] GENERIC ORDERon TEST NAME HMGCR 3 HYDROXY 3 METHYLGLUTARYL COENZYME A HMG COA REDUCTASE SERUM Normal [facility] Comment on above: Performed By: #### G O #### [employer] ([id number]) [address] [facility], TEST RESULT SEE COMMENTS 11:50 PM Normal [facility] Comment on above: Result Comment: NOTE Test Result Flag Unit RefValue -- HMG-CoA Reductase Ab, S <20.0 CU <20.0 Test Performed by: [address] [address] Pneum[employer] Jacketer: Hussein Khan Ph.D.; CLIA# [id number] Performed By: #### G O #### [employer] ([id number]) [address] [facility], TSH Qnon 06-12-2024 TSH 1.23 uIU/mL Normal 0.49-4.67 [facility] Comment on above: Performed By: #### C POOL, 49211-5, [facility], 1987-12, 4485-04, 449-2, ENAP #### [facility] ([id number]) [address], [address] [place] [address] VITAMIN B12on 06-12-2024 Cobalamin (Vitamin B12) [Mass/Vol] 335 pg/mL Normal 180-914 [facility] Comment on above: Performed By: #### C POOL, 01072-7, [facility], 1987-12, 4485-04, 4492, ENAP #### [facility] ([id number]) [address], [address] [place] [address] Vitamin D+Metabolites [Mass/ Vol]on 06-12-2024 VITAMIN D 25 HYD TOT 12.5 ng/mL Low 30-100 [facility] Comment on above: Result Comment: Vitamin D status 25 [place] Vitamin D Deficiency <20 ng/mL Insufficiency 20-29 ng/mL Sufficiency 30-100 ng/mL Toxicity >100 ng/mL NOTE: A pediatric reference range has not been established by the carbon paper interleafer of this kit. The [place] [employer] recommends a Vitamin D level of = or >20ng/mL in infants and children. Performed By: #### C POOL, 53497-2, [facility], 1987-12, 4485-04, 4498-2, ENAP #### [facility] ([id number]) [address], [address] [place] [address] US SOFT TISS HEAD NECKon US SOFT TISS HEAD NECK US SOFT TISS HEAD NECK US SOFT TISS HEAD NECK HISTORY: Parotid gland swelling, rheumatoid arthritis COMPARISON: None TECHNIQUE: Grayscale and Doppler imaging of the bilateral parotid glands and soft tissues of the neck FINDINGS: No sonographic abnormalities noted within bilateral parotid glands. Multiple prominent ovoid lymph nodes are noted in the bilateral neck. Largest on the right measures 2.2 x 1.5 x 0.7 cm. Largest on the left measures 1.8 x 1.1 x 1.0 cm and 1.9 x 0.9 x 1.3 cm. There are preserved fatty hilum and hilar flow on color Doppler. Cortex appears mildly thickened. IMPRESSION: * Normal sonographic appearance of bilateral parotid glands. * Multiple prominent lymph nodes in the bilateral neck. The cortex mildly thickened, but are otherwise benign-appearing. These are nonspecific and may be reactive, infectious, or inflammatory. Recommend continued clinical physical exam follow-up to document stability and rule out underlying or occult process. Approved by Resident Gavin Ahuja MD on 06/10/2024 10:03 AM I, Rocio Berg MD have personally reviewed the image(s) and agree with and/or edited the report Finalized by Rocio Berg MD on 06/10/2024 12:07 PM Normal [facility] MLR HEMOGLOBIN A1Con 024 Glucose [Mass/Vol] 134 mg/dL [facility] HbA1c (Bld) [Mass fraction] 6.3 % High 4.5 - 6.2 % [facility] Comment on above: ADA RECOMMENDED LIMI T 4.0 - 6.0 ADA THERAPEUTIC TARGET < 7.0 ACTION SUGGESTED > 7.0 Interpretation and review of laboratory results Abnormal [facility] XR OSSEOUS SURVEY LIMITEDon 04-20-2024 XR OSSEOUS [...] King MD on 04/20/2024 7:58 AM Normal [facility] CBC AND AUTO DIFFon 04-17-20 ABSOLUTE BASOPHIL 0.0 X10E9/L Normal 0.0-0.2 [facility] Comment on above: Performed By: #### C BCA, 85620-9, CMP, 1987-12, 4485-04, 449-2, ENAP #### [facility] ([id number]) [address], [address] [place] [address] ABSOLUTE NEUTROPHIL 4.9 X10E9/L Normal 1.5-6.6 [facility] Comment on above: Performed By: #### C BCA, 29751-9, CMP, 1987-12, 4485-04, 449-2, ENAP #### [facility] ([id number]) [address], [address] [place] [address] Basophils/100 WBC (Bld) 0.3 % Normal [facility] Comment on above: Performed By: #### C POOL, 79598-3, CMP, 1987-12, 4485-04, 2, ENAP #### [facility] ([id number]) [address], [address] [place] [address] Eosinophils (Bld) [#/Vol] 0.2 10*3/uL Normal 0.0-0.4 [facility] Comment on above: Performed By: #### C POOL, 41180-7, CMP, 1987-12, 4485-04, 4497-2, ENAP #### [facility] ([id number]) [address], [address] [place] [address] Eosinophils/100 WBC (Bld) 2.5 % Normal [facility] Comment on above: Performed By: #### C BCA, 26953-1, CMP, 1987-12, 4485-04, 2, ENAP #### [facility] ([id number]) [address], [address] [place] [address] Erythrocyte distribution width (RBC) [Ratio] 13.8 % Normal 11.5-15.0 [facility] Comment on above: Performed By: #### C BCA, 75287-7, CMP, 1987-12, 4485-04, 4498-2, ENAP #### [facility] ([id number]) [address], [facility] [address] [place] [address] Hematocrit (Bld) [Volume fraction] 43.2 % Normal 39-49 [facility] Comment on above: Performed By: #### C BCA, 11781-7, CMP, 1987-12, 4485-04, 449-2, ENAP #### [facility] ([id number]) [address], [address] [address] Hemoglobin (Bld) [Mass/Vol] 14.8 g/dL Normal 13.0-17.0 [facility] Comment on above: Performed By: #### C POOL, 43256-4, CMP, 1987-12, 4485-04, 449-2, ENAP #### [facility] ([id number]) [address], [address] [address] Lymphocytes (Bld) [#/Vol] 2.7 10*3/uL Normal 1.0-3.5 [facility] Comment on above: Performed By: #### C BCA, 15813-9, CMP, 1987-12, 4485-04, 449-2, ENAP #### [facility] ([id number]) [address] [address] Lymphocytes/100 WBC (Bld) 31.7 % Normal [facility] Comment on above: Performed By: #### C BCA, 39721-5, CMP, 1987-12, 4485-04, 4497-2, ENAP #### [facility] ([id number]) [address] [address] MCH (RBC) [Entitic mass] 30.3 pg Normal 27-34 [facility] Comment on above: Performed By: #### C BCA, 64312-8, CMP, 1987-12, 4485-04, 4497-2, ENAP #### [facility] ([id number]) [address], [address] [place] [address] MCHC (RBC) [Mass/Vol] 34.3 g/dL Normal 32-36 [facility] Comment on above: Performed By: #### C BCA, 85664-2, CMP, 1987-12, 4485-04, 4497-2, ENAP #### [facility] ([id number]) [address], [address] [place] [address] MCV (RBC) [Entitic vol] 89 fL Normal 80-100 [facility] Comment on above: Performed By: #### C POOL, 64691-7, CMP, 1987-12, 4485-04, 4497-2, ENAP #### [facility] ([id number]) [address], [address] [place] [address] Monocytes (Bld) [#/Vol] 0.6 10*3/uL Normal 0-0.9 [facility] Comment on above: Performed By: #### C POOL, 16699-5, CMP, 1987-12, 4485-04, 2, ENAP #### [facility] ([id number]) [address], [address] [place] [address] Monocytes/100 WBC (Bld) 7.5 % Normal [facility] Comment on above: Performed By: #### C BCA, 05350-9, CMP, 1987-12, 4485-04, 2, ENAP #### [facility] ([id number]) [address], [address] [place] [address] Neutrophils/100 WBC (Bld) 58.0 % Normal [facility] Comment on above: Performed By: #### C BCA, 59482-9, CMP, 1987-12, 4485-04, 2, ENAP #### [facility] ([id number]) [address], [address] [place] [address] Platelet mean volume (Bld) [Entitic vol] 7.7 fL Normal 7-12 [facility] Comment on above: Performed By: #### C BCA, 50864-6, CMP, 1987-12, 4484-9, 4498-2, ENAP #### [facility] ([id number]) [address], [address] [place] [address] Platelets (Bld) [#/Vol] 330 10*3/uL Normal 150-450 [facility] Comment on above: Performed By: #### C BCA, 98517-4, CMP, 1987-12, 4484-, 4498-2, ENAP #### [facility] ([id number]) [address], [address] [place] [address] RBC COUNT 4.87 X10E12/L Normal 4.10-5.70 [facility] Comment on above: Performed By: #### C BCA, 26751-0, CMP, 1987-12, 4485-04, 4498-2, ENAP #### [facility] ([id number]) [address], [address] [place] [address] WBC (Bld) [#/Vol] 8.4 10*3/uL Normal 4.0-11.0 [facility] Comment on above: Performed By: #### C BCA, 41770-1, CMP, 1987-12, 4485-04, 4498-2, ENAP #### [facility] ([id number]) [address], [address] [place] [address] COMPREHENSIVE METABOLIC PANE Rayshawn 04-17-2024 Albumin [Mass/Vol] 4.4 g/dL Normal 3.2-5.3 [facility] Comment on above: Performed By: #### C BCA, 12108-5, CMP, 1987-12, 4485-04, 4498-2, ENAP #### [facility] ([id number]) [address], [address] [place] [address] ALP [Catalytic activity/Vol] 71 U/L Normal 39-130 [facility] Comment on above: Performed By: #### C BCA, 86732-4, CMP, 1987-12, 9, 4498-2, ENAP #### [facility] ([id number]) [address], [address] [place] [address] ALT [Catalytic activity/Vol] 25 U/L Normal 0-40 [facility] Comment on above: Performed By: #### C BCA, 67304-2, CMP, 1987-12, 4485-04, 4498-2, ENAP #### [facility] ([id number]) [address], [address] [place] [address] Anion gap [Moles/Vol] 12 mmol/L Normal 5-15 [facility] Comment on above: Performed By: #### C BCA, 59978-0, CMP, 1987-12, 4485-04, 4498-2, ENAP #### [facility] ([id number]) [address], [address] [place] [address] AST [Catalytic activity/Vol] 17 U/L Normal 0-41 [facility] Comment on above: Performed By: #### C BCA, 83035-6, CMP, 1987-12, 4485-04, 4498-2, ENAP #### [facility] ([id number]) [address], [address] [place] [address] Bilirubin [Mass/Vol] 0.8 mg/dL Normal 0.3-1.2 [facility] Comment on above: Performed By: #### C BCA, 67311-0, CMP, 1987-12, 4485-04, 4498-2, ENAP #### [facility] ([id number]) [address], [address] [place] [address] Calcium [Mass/Vol] 9.5 mg/dL Normal 8.5-10.5 [facility] Comment on above: Performed By: #### C BCA, 21523-6, CMP, 1987-12, 4485-04, 4498-2, ENAP #### [facility] ([id number]) [address], [address] [place] [address] Chloride [Moles/Vol] 102 mmol/L Normal 98-109 [facility] Comment on above: Performed By: #### C BCA, 08837-5, CMP, 1987-12, 4485-04, 449-2, ENAP #### [facility] ([id number]) [address], [address] [place] [address] CO2 [Moles/Vol] 25 mmol/L Normal 22-32 [facility] Comment on above: Performed By: #### C BCA, 55577-8, CMP, 1987-12, 4485-04, 4498-2, ENAP #### [facility] ([id number]) [address], [facility] [address] [place] [address] Creatinine [Mass/Vol] 0.63 mg/dL Normal 0.60-1.30 [facility] Comment on above: Result Comment: METH OD TRACEABLE TO IDMS STANDARD Performed By: #### C BCA, 55238-3, CMP, 1987-12, 4485-04, 4498-2, ENAP #### [facility] ([id number]) [address], [facility] [address] [place] [address] eGFR (CKD-EPI) NON-RACE DEPENDENT >90 Normal >59 [facility] Comment on above: Result Comment: Reported eGFR is based on the CKD-EPI 2020 equation that does not use a race coefficient. Performed By: #### C BCA, 82688-3, CMP, 1987-12, 4485-04, 449-2, ENAP #### [facility] ([id number]) [address], [address] [place] [address] Glucose [Mass/Vol] 111 mg/dL High 65-99 [facility] Comment on above: Performed By: #### C BCA, 11313-9, CMP, 1987-12, 4485-04, 4498-2, ENAP #### [facility] ([id number]) [address], [address] [place] [address] Potassium [Moles/Vol] 3.8 mmol/L Normal 3.5-5.0 [facility] Comment on above: Performed By: #### C BCA, 80231-9, CMP, 1987-12, 4485-04, 4498-2, ENAP #### [facility] ([id number]) [address], [address] [place] [address] Protein [Mass/Vol] 7.2 g/dL Normal 6.0-8.0 [facility] Comment on above: Performed By: #### C BCA, 66040-5, CMP, 1987-12, 4485-04, 4498-2, ENAP #### [facility] ([id number]) [address], [address] [place] [address] Sodium [Moles/Vol] 139 mmol/L Normal 134-146 [facility] Comment on above: Performed By: #### C BCA, 63823-9, CMP, 1987-12, 4485-04, 4498-2, ENAP #### [facility] ([id number]) [address], [address] [place] [address] Urea nitrogen [Mass/Vol] 12 mg/dL Normal 5-23 [facility] Comment on above: Performed By: #### C BCA, 05169-2, CMP, 1987-12, 4485-04, 4498-2, ENAP #### [facility] ([id number]) [address], [address] [place] [address] CRP [Mass/Vol]on 04-17-2024 C REACTIVE PROTEIN 0.8 mg/dL High 0.000-0.744 [facility] Comment on above: Performed By: #### C BCA, 48648-8, CMP, 1987-12, 4484-9, 4498-2, ENAP #### [facility] ([id number]) [address], [address] [place] [address] Complement C3 [Mass/Vol]on 0 04-17-2024 COMPLEMENT C3 153 mg/dL Normal 86-184 [facility] Comment on above: Performed By: #### C BCA, 40990-5, CMP, 1987-12, 4485-04, 4498-2, ENAP #### [facility] ([id number]) [address], [address] [place] [address] Complement C4 [Mass/Vol]on 0 04-17-2024 COMPLEMENT C4 33 mg/dL Normal 16-47 [facility] Comment on above: Performed By: #### C BCA, 05657-1, CMP, 1987-12, 4485-04, 4498-2, ENAP #### [facility] ([id number]) [address], [address] [place] [address] VIJAY PANELon 04-17-2024 ANTI-KENNEDY AB IGG <0.2 Normal <1.0 [facility] Comment on above: Performed By: #### C BCA, 29593-3, CMP, 1987-12, 4485-04, 4498-2, ENAP #### [facility] ([id number]) [address], [facility] [address] [place] [address] JO1 ANTIBODY <0.2 Normal <1.0 [facility] Comment on above: Performed By: #### C BCA, 19883-9, CMP, 1987-12, 4485-04, 4498-2, ENAP #### [facility] ([id number]) [address], [address] [place] [address] ASSISTED LIVING EXECUTIVE DIRECTOR ANTIBODY IGG 0.6 AI Normal <1.0 [facility] Comment on above: Performed By: #### C BCA, 43108-6, CMP, 1987-12, 4485-04, 4498-2, ENAP #### [facility] ([id number]) [address], [address] [place] [address] SCL 70 ANTIBODY <0.2 Normal <1.0 [facility] Comment on above: Performed By: #### C BCA, 12963-8, CMP, 1987-12, 4485-04, 4498-2, ENAP #### [facility] ([id number]) [address] [address] SSA ANTIBODY <0.2 Normal <1.0 [facility] Comment on above: Performed By: #### C BCA, 76451-4, CMP, 1987-12, 4485-04, 4498-2, ENAP #### [facility] ([id number]) [address] [address] SSB ANTIBODY <0.2 Normal <1.0 [facility] Comment on above: Performed By: #### C BCA, 77884-8, CMP, 1987-12, 4485-04, 4498-2, ENAP #### [facility] ([id number]) [address] [address] ESR Photometric method (Bld) [Velocity]on 04-17-2024 ESR, ERYTHROCYTE SEDIMENTATION RATE 19 mm/h High 0-15 [facility] Comment on above: Performed By: #### C BCA, 00472-6, CMP, 1987-12, 4485-04, 4498-2, ENAP #### [facility] ([id number]) [address] [address] Automated basophil %Ordered By: Margaret Kennedy on 03-30-2024 Basophils/100 WBC (Bld) 0.4 % Normal . [facility] Comment on above: Performed By: #### B MP, MG, CBC #### [address] Automated basophil countOrde red By: Margaret Kennedy on 03-30-2024 Basophils (Bld) [#/Vol] 0.1 10*3/uL Normal 0.0-0.2 [facility] Comment on above: Result Comment: PERF ORMED BY: [place] [address] PATHOLOGIST CHANNELER RUNNER MARLYN MCKEON M.D. Performed By: #### B MP, MG, CBC #### [address] Automated blood monocyte cou ntOrdered By: Margaret Kennedy on 03-30-2024 Monocytes (Bld) [#/Vol] 1.8 10*3/uL High 0.0-0.8 [facility] Comment on above: Performed By: #### B MP, MG, CBC #### [address] Automated eosinophil %Ordere d By: Margaret Kennedy on 03-30-2024 Eosinophils/100 WBC (Bld) 1.0 % Normal . [facility] Comment on above: Performed By: #### B MP, MG, CBC #### [facility] [address] [place] [address] Automated eosinophil countOr dered By: Margaret Kennedy on 03-30-2024 Eosinophils (Bld) [#/Vol] 0.2 10*3/uL Normal 0.0-0.45 [facility] Comment on above: Performed By: #### B MP, MG, CBC #### [address] Automated monocyte %Ordered By: Margaret Kennedy on 03-30-2024 Monocytes/100 WBC (Bld) 9.0 % Normal . [facility] Comment on above: Performed By: #### B MP, MG, CBC #### [facility] [address] Automated neutrophil %Ordere d By: Margaret Kennedy on 03-30-2024 Neutrophils/100 WBC (Bld) 67.6 % Normal . [facility] Comment on above: Performed By: #### B MP, MG, CBC #### [facility] [address] Basic Metabolic Panelon 080 Creatinine Clr Calc Pharmacy 238.21 Normal [facility] Comment on above: Performed By: #### B MP, MG, CBC #### [facility] [address] [place] [address] GFR/1.73 sq M.predicted MDRD (S/P/Bld) [Vol rate/Area] mL/min/{1.73_m2} Normal [facility] Comment on above: Performed By: #### B MP, MG, CBC #### [address] head/brain wo conon 03-30 CT head/brain wo con [facility] [place] [address] CT Scan Report Signed Patient: Bhumika Umana JR MR#: [id number] : 1975 Acct:[id number] Age/Sex: 48 / M ADM Date: 03/30/24 Loc: Room: [address] [place] [address] Type: ADM INOo Attending Dr: Bola Garcia [...] Mert Ferreira M.D.03/30/2024 9:26 AM Dictation Location: [place] [address] Transcribed By: [facility] 03/30/24925 Dictated By: Mert Ferreira DO 03/30/24917 Signed By: 03/30/24925 Normal [facility] Calcium [Mass/volume] in Ser um or PlasmaOrdered By: Margaret Kennedy on 03-30-2024 Calcium [Mass/Vol] 9.3 mg/dL Normal 8.6-10.3 [facility] Comment on above: Performed By: #### B MP, MG, CBC #### [address] Capillary blood glucose pete urement by glucometer (mass/volume)Ordered By: Edgar Gomez on 03-30-2024 Glucose [Mass/Vol] 115 mg/dL Normal [facility] Comment on above: Random Glucose Refer ence Range is dependent on time and content of last meal. Glucose of more than 200 mg/dL in a nonstressed, ambulatory subject supports the diagnosis of Diabetes Mellitus. Result Comment: [place] Glucose Reference Range is dependent on time and content of last meal. Glucose of more than 200 mg/dL in a nonstressed, ambulatory subject supports the diagnosis of Diabetes Mellitus. PERFORMED BY: [facility] [address] [place] [address] PATHOLOGIST CHANNELER RUNNER MARLYN MCKEON M.D. Performed By: #### G MARGARITA #### Point of Care testing , Carbon dioxide, total [Moles /volume] in Serum or PlasmaOrdered By: Margaret Kennedy on 03-30-2024 CO2 [Moles/Vol] 27.2 mmol/L Normal 21.0-31.0 [facility] Comment on above: Performed By: #### B MP, MG, CBC #### [address] Chloride [Moles/volume] in S vandana or PlasmaOrdered By: Margaret Kennedy on 03-30-2024 Chloride [Moles/Vol] 101 mmol/L Normal 98-107 [facility] Comment on above: Performed By: #### B MP, MG, CBC #### [address] Complete Blood Count Auto Di ffon 03-30-2024 Mean Corpuscular HGB Conc 33.3 g/dL Normal 32.5-35.6 [facility] Comment on above: Performed By: #### B MP, MG, CBC #### [address] NRBC% 0.0 /100{WBC} Normal 0-0.5 [facility] Comment on above: Performed By: #### B MP, MG, CBC #### [address] Creatinine [Mass/volume] in Serum or PlasmaOrdered By: Margaret Kennedy on 03-30-2024 Creatinine [Mass/Vol] 0.61 mg/dL Low 0.70-1.30 [facility] Comment on above: Performed By: #### B MP, MG, CBC #### [address] Erythrocyte distribution wid th [Ratio] by Automated countOrdered By: Margaret Kennedy on 03-30-2024 Erythrocyte distribution width (RBC) [Ratio] 13.6 % Normal 12.0-14.8 [facility] Comment on above: Performed By: #### B MP, MG, CBC #### [facility] [address] [place] [address] [place] Erythrocytes [#/volume] in B lood by Automated countOrdered By: Margaret Kennedy on 03-30-2024 RBC (Bld) [#/Vol] 5.03 10*6/uL Normal 3.90-5.60 [facility] Comment on above: Performed By: #### B MP, MG, CBC #### [facility] [address] Glucose Poct Glucometerson 0 03-30-2024 Glucose [Mass/Vol] 159 mg/dL Normal [facility] Comment on above: Result Comment: [place] [facility] Glucose Reference Range is dependent on time and content of last meal. Glucose of more than 200 mg/dL in a nonstressed, ambulatory subject supports the diagnosis of Diabetes Mellitus. PERFORMED BY: [place] [address] PATHOLOGIST CHANNELER RUNNER MARLYN MCKEON M.D. Performed By: #### C BC, MG, PHOS, CMP #### [address] Glucose [Mass/Vol] 144 mg/dL Normal [facility] Comment on above: Result Comment: [place] [facility] Glucose Reference Range is dependent on time and content of last meal. Glucose of more than 200 mg/dL in a nonstressed, ambulatory subject supports the diagnosis of Diabetes Mellitus. PERFORMED BY: [place] [address] PATHOLOGIST CHANNELER RUNNER MARLYN MCKEON M.D. Performed By: #### C BC, MG, PHOS, CMP #### [address] Glucose [Mass/volume] in Ser um or PlasmaOrdered By: Margaret Kennedy on 03-30-2024 Glucose [Mass/Vol] 119 mg/dL High 70-100 [facility] Comment on above: ADA recommended refe rence rangeRandom Glucose Reference Range is dependent on time and content of last meal. Glucose of more than 200 mg/dL in a nonstressed, ambulatory subject supports the diagnosis of Diabetes Mellitus. Result Comment: [place] [facility] Glucose Reference Range is dependent on time and content of last meal. Glucose of more than 200 mg/dL in a nonstressed, ambulatory subject supports the diagnosis of Diabetes Mellitus. ADA recommended reference range Performed By: #### B MP, MG, CBC #### [address] Hematocrit [Volume Fraction] of Blood by Automated countOrdered By: Margaret Kennedy on 03-30-2024 Hematocrit (Bld) [Volume fraction] 44.6 % Normal 38.8-50.0 [facility] Comment on above: Performed By: #### B MP, MG, CBC #### [address] Hemoglobin [Mass/volume] in BloodOrdered By: Margaret Kennedy on 03-30-2024 Hemoglobin (Bld) [Mass/Vol] 14.9 g/dL Normal 13.0-17.0 [facility] Comment on above: Performed By: #### B MP, MG, CBC #### [address] Leukocytes [#/volume] correc elizabeth for nucleated erythrocytes in Blood by Automated counOrdered By: Margaret Kenneyd on 03-30-2024 WBC corrected for nucl RBC Auto (Bld) [#/Vol] 20.0 10*3/uL High 4.1-10.5 [facility] Leukocytes [#/volume] in Blo od by Automated countOrdered By: Margaret Kennedy on 03-30-2024 WBC (Bld) [#/Vol] 20.0 10*3/uL High 4.1-10.5 [facility] Comment on above: Performed By: #### B MP, MG, CBC #### [address] Lymphocytes [#/volume] in Bl ood by Automated countOrdered By: Margaret Kennedy on 03-30-2024 Lymphocytes (Bld) [#/Vol] 4.4 10*3/uL Normal 1.00-4.8 [facility] Comment on above: Performed By: #### B MP, MG, CBC #### [place] [address] [place] Lymphocytes/100 leukocytes i n Blood by Automated countOrdered By: Margaret Kennedy on 03-30-2024 Lymphocytes/100 WBC (Bld) 22.0 % Normal . [facility] Comment on above: Performed By: #### B MP, MG, CBC #### [address] MCH [Entitic mass] by Automa elizabeth countOrdered By: Margaret Kennedy on 03-30-2024 MCH (RBC) [Entitic mass] 29.5 pg Normal 27.5-35.2 [facility] Comment on above: Performed By: #### B MP, MG, CBC #### [address] MCHC Auto (RBC) [Mass/Vol]Or dered By: Margaret Kennedy on 03-30-2024 MCHC (RBC) [Mass/Vol] 33.3 g/dL 32.5-35.6 [facility] MCV [Entitic volume] by Auto mated countOrdered By: Margaret Kennedy on 03-30-2024 MCV (RBC) [Entitic vol] 88.6 fL Normal 83.5-101 [facility] Comment on above: Performed By: #### B MP, MG, CBC #### [address] Magnesium [Mass/volume] in S vandana or PlasmaOrdered By: Margaret Kennedy on 03-30-2024 Magnesium [Mass/Vol] 1.8 mg/dL Low 1.9-2.7 [facility] Comment on above: Result Comment: PERF ORMED BY: [place] [address] PATHOLOGIST CHANNELER RUNNER MARLYN MCKEON M.D. Performed By: #### B MP, MG, CBC #### [address] Neutrophils [#/volume] in Bl ood by Automated countOrdered By: Margaret Kennedy on 03-30-2024 Neutrophils (Bld) [#/Vol] 13.5 10*3/uL High 1.8-7.7 [facility] Comment on above: Performed By: #### B MP, MG, CBC #### [address] No Panel InformationOrdered By: Margaret Kennedy on 03-30-2024 Estimated GFR (CKD-EPI) > 60.0 mL/Min [facility] Creatinine Clearance (Chem 238.21 [facility] Nucleated erythrocytes [Pres ence] in Blood by Automated countOrdered By: Margaret Kennedy on 03-30-2024 Nucleated RBC Auto Ql (Bld) 0.0 /100{WBC} 0-0.5 [facility] Platelet mean volume [Entiti c volume] in Blood by Automated countOrdered By: Margaret Kennedy on 03-30-2024 Platelet mean volume (Bld) [Entitic vol] 7.5 fL Normal 6.6-10.1 [facility] Comment on above: Performed By: #### B MP, MG, CBC #### [facility] [address] [place] [address] [place] Platelets [#/volume] in Bloo d by Automated countOrdered By: Margaret Kennedy on 03-30-2024 Platelets (Bld) [#/Vol] 324 10*3/uL Normal 150-450 [facility] Comment on above: Performed By: #### B MP, MG, CBC #### [facility] [address] [place] [address] [place] Potassium [Moles/volume] in Serum or PlasmaOrdered By: Margaret Kennedy on 03-30-2024 Potassium [Moles/Vol] 4.4 mmol/L Normal 3.5-5.1 [facility] Comment on above: Performed By: #### B MP, MG, CBC #### [facility] [address] [place] [address] Serum or plasma anion gap de terminationOrdered By: Margaret Kennedy on 03-30-2024 Anion gap [Moles/Vol] 12.2 mmol/L Normal 6.0-15.0 [facility] Comment on above: Performed By: #### B MP, MG, CBC #### [facility] [address] [place] [address] [place] Sodium [Moles/volume] in Ser um or PlasmaOrdered By: Margaret Kennedy on 03-30-2024 Sodium [Moles/Vol] 136 mmol/L Normal 136-145 [facility] Comment on above: Performed By: #### B MP, MG, CBC #### [facility] [address] Urea nitrogen [Mass/volume] in Serum or PlasmaOrdered By: Margaret Kennedy on 03-30-2024 Urea nitrogen [Mass/Vol] 13 mg/dL Normal 7-25 [facility] Comment on above: Performed By: #### B MP, MG, CBC #### [facility] [address] Automated basophil %Ordered By: Emily Winn on 03-29-2024 Basophils/100 WBC (Bld) 0.5 % Normal . [facility] Comment on above: Performed By: #### G LULS #### Point of Care testing , Automated basophil countOrde red By: Emily Winn on 03-29-2024 Basophils (Bld) [#/Vol] 0.1 10*3/uL Normal 0.0-0.2 [facility] Comment on above: Performed By: #### G LULS #### Point of Care testing , Automated blood monocyte cou ntOrdered By: Emily Winn on 03-29-2024 Monocytes (Bld) [#/Vol] 1.1 10*3/uL High 0.0-0.8 [facility] Comment on above: Performed By: #### G LULS #### Point of Care testing , Automated eosinophil %Ordere d By: Emily Winn on 03-29-2024 Eosinophils/100 WBC (Bld) 0.6 % Normal . [facility] Comment on above: Performed By: #### G LULS #### Point of Care testing , Automated eosinophil countOr dered By: Emily Winn on 03-29-2024 Eosinophils (Bld) [#/Vol] 0.1 10*3/uL Normal 0.0-0.45 [facility] Comment on above: Performed By: #### G LULS #### Point of Care testing , Automated monocyte %Ordered By: Emily Winn on 03-29-2024 Monocytes/100 WBC (Bld) 6.5 % Normal . [facility] Comment on above: Performed By: #### G LULS #### Point of Care testing , Automated neutrophil %Ordere d By: Emily Winn on 03-29-2024 Neutrophils/100 WBC (Bld) 77.7 % Normal . [facility] Comment on above: Performed By: #### G LULS #### Point of Care testing , Basic Metabolic Panelon Creatinine Clr Calc Pharmacy 196.64 Normal [facility] Comment on above: Performed By: #### B MP, MG, CBC #### [place] [address] [place] GFR/1.73 sq M.predicted MDRD (S/P/Bld) [Vol rate/Area] mL/min/{1.73_m2} Normal [facility] Comment on above: Performed By: #### B MP, MG, CBC #### [place] [address] [place] C reactive protein [Mass/vol ume] in Serum or PlasmaOrdered By: Emily Winn on 03-29-2024 CRP [Mass/Vol] < 0.5 mg/dL 0.0-0.5 [facility] C-Reactive Proteinon 024 CRP [Mass/Vol] mg/L Normal 0.0-0.5 [facility] Comment on above: Result Comment: PERF ORMED BY: [place] [address] PATHOLOGIST CHANNELER RUNNER MARLYN MCKEON M.D. Performed By: #### B MP, MG, CBC #### [facility] [address] [place] [address] [place] Calcium [Mass/volume] in Ser um or PlasmaOrdered By: Emily Winn on 03-29-2024 Calcium [Mass/Vol] 9.3 mg/dL Normal 8.6-10.3 [facility] Comment on above: Performed By: #### B MP, MG, CBC #### [place] [address] [place] Capillary blood glucose pete urement by glucometer (mass/volume)Ordered By: Emily Winn on 03-29-2024 Glucose [Mass/Vol] 204 mg/dL Normal [facility] Comment on above: Random Glucose Refer ence Range is dependent on time and content of last meal. Glucose of more than 200 mg/dL in a nonstressed, ambulatory subject supports the diagnosis of Diabetes Mellitus. Result Comment: [place] Glucose Reference Range is dependent on time and content of last meal. Glucose of more than 200 mg/dL in a nonstressed, ambulatory subject supports the diagnosis of Diabetes Mellitus. PERFORMED BY: [place] [address] PATHOLOGIST CHANNELER RUNNER MARLYN MCKEON M.D. Performed By: #### C BC, MG, PHOS, CMP #### [facility] [address] [place] [address] Carbon dioxide, total [Moles /volume] in Serum or PlasmaOrdered By: Emily Tatum on 03-29-2024 CO2 [Moles/Vol] 23.0 mmol/L Normal 21.0-31.0 [facility] Comment on above: Performed By: #### B MP, MG, CBC #### [facility] [address] [place] [address] Chloride [Moles/volume] in S vandana or PlasmaOrdered By: Emily Krise on 03-29-2024 Chloride [Moles/Vol] 101 mmol/L Normal 98-107 [facility] Comment on above: Performed By: #### B MP, MG, CBC #### [facility] [address] [place] [address] Complete Blood Count Auto Di ffon 03-29-2024 Mean Corpuscular HGB Conc 33.1 g/dL Normal 32.5-35.6 [facility] Comment on above: Performed By: #### G LULS #### Point of Care testing , Monocytes/100 WBC (Bld) 16.02 % Normal 0.00-20.00 [facility] Comment on above: Performed By: #### G LULS #### Point of Care testing , NRBC% 0.1 /100{WBC} Normal 0-0.5 [facility] Comment on above: Performed By: #### G LULS #### Point of Care testing , Creatine kinase [Enzymatic a ctivity/volume] in Serum or PlasmaOrdered By: Emily Wnin on 03-29-2024 CK [Catalytic activity/Vol] 37 U/L Normal 30-223 [facility] Comment on above: Result Comment: PERF ORMED BY: [place] [address] PATHOLOGIST CHANNELER RUNNER MARLYN MCKEON M.D. Performed By: #### G LULS #### Point of Care testing , Creatinine [Mass/volume] in Serum or PlasmaOrdered By: Emily Winn on 03-29-2024 Creatinine [Mass/Vol] 0.74 mg/dL Normal 0.70-1.30 [facility] Comment on above: Performed By: #### B MP, MG, CBC #### [address] Erythrocyte Sedimentation Ra devaughn 03-29-2024 ESR (Bld) [Velocity] 12 mm/h Normal 0-14 [facility] Comment on above: Result Comment: PERF ORMED BY: [place] [phone] PATHOLOGIST CHANNELER RUNNER MARLYN MCKEON M.D. Performed By: #### G LULS #### Point of Care testing , Erythrocyte distribution wid th [Ratio] by Automated countOrdered By: Emily Winn on 03-29-2024 Erythrocyte distribution width (RBC) [Ratio] 13.6 % Normal 12.0-14.8 [facility] Comment on above: Performed By: #### G LULS #### Point of Care testing , Erythrocyte sedimentation ra te by Photometric methodOrdered By: Emily Winn on 03-29-2024 ESR Photometric method (Bld) [Velocity] 12 mm/hr 0-14 [facility] Erythrocytes [#/volume] in B lood by Automated countOrdered By: Emily Winn on 03-29-2024 RBC (Bld) [#/Vol] 5.15 10*6/uL Normal 3.90-5.60 [facility] Comment on above: Performed By: #### G MARGARITA #### Point of Care testing , Glucose [Mass/volume] in Ser um or PlasmaOrdered By: Emily Winn on 03-29-2024 Glucose [Mass/Vol] 201 mg/dL High 70-100 [facility] Comment on above: ADA recommended refe rence rangeRandom Glucose Reference Range is dependent on time and content of last meal. Glucose of more than 200 mg/dL in a nonstressed, ambulatory subject supports the diagnosis of Diabetes Mellitus. Result Comment: [place] Glucose Reference Range is dependent on time and content of last meal. Glucose of more than 200 mg/dL in a nonstressed, ambulatory subject supports the diagnosis of Diabetes Mellitus. ADA recommended reference range Performed By: #### B MP, MG, CBC #### [address] Hematocrit [Volume Fraction] of Blood by Automated countOrdered By: Emily Winn on 03-29-2024 Hematocrit (Bld) [Volume fraction] 45.6 % Normal 38.8-50.0 [facility] Comment on above: Performed By: #### G MARGARITA #### Point of Care testing , Hemoglobin [Mass/volume] in BloodOrdered By: Emily Winn on 03-29-2024 Hemoglobin (Bld) [Mass/Vol] 15.1 g/dL Normal 13.0-17.0 [facility] Comment on above: Performed By: #### G MARGARITA #### Point of Care testing , Leukocytes [#/volume] correc elizabeth for nucleated erythrocytes in Blood by Automated counOrdered By: Emily Winn on 03-29-2024 WBC corrected for nucl RBC Auto (Bld) [#/Vol] 17.1 10*3/uL High 4.1-10.5 [facility] Leukocytes [#/volume] in Blo od by Automated countOrdered By: Emily Winn on 03-29-2024 WBC (Bld) [#/Vol] 17.1 10*3/uL High 4.1-10.5 [facility] Comment on above: Performed By: #### G LULS #### Point of Care testing , Lymphocytes [#/volume] in Bl ood by Automated countOrdered By: Emliy Winn on 03-29-2024 Lymphocytes (Bld) [#/Vol] 2.5 10*3/uL Normal 1.00-4.8 [facility] Comment on above: Performed By: #### G LULS #### Point of Care testing , Lymphocytes/100 leukocytes i n Blood by Automated countOrdered By: Emily Winn on 03-29-2024 Lymphocytes/100 WBC (Bld) 14.7 % Normal . [facility] Comment on above: Performed By: #### G LULS #### Point of Care testing , MCH [Entitic mass] by Automa elizabeth countOrdered By: Emily Winn on 03-29-2024 MCH (RBC) [Entitic mass] 29.3 pg Normal 27.5-35.2 [facility] Comment on above: Performed By: #### G LULS #### Point of Care testing , MCHC Auto (RBC) [Mass/Vol]Or dered By: Emily Winn on 03-29-2024 MCHC (RBC) [Mass/Vol] 33.1 g/dL 32.5-35.6 [facility] MCV [Entitic volume] by Auto mated countOrdered By: Emily Winn on 03-29-2024 MCV (RBC) [Entitic vol] 88.5 fL Normal 83.5-101 [facility] Comment on above: Performed By: #### G LULS #### Point of Care testing , Monocyte distribution width [Entitic volume] in Blood by AutomatedOrdered By: Emily Winn on 03-29-2024 Monocyte distribution width Auto (Bld) [Entitic vol] 16.02 % 0.00-20.00 [facility] Myoglobinon 03-29-2024 Myoglobin [Mass/Vol] 31 ng/mL Normal 28-72 [facility] Comment on above: Result Comment: Perf ormed at: - [facility] [address] [id number] Pneumatic Jacketer: Gabriel Chan PhD, Phone: [phone] PERFORMED BY: [place] [address] PATHOLOGIST CHANNELER RUNNER MARLYN MCKEON M.D. Performed By: #### B MP, MG, CBC #### [address] Neutrophils [#/volume] in Bl ood by Automated countOrdered By: Emily Winn on 03-29-2024 Neutrophils (Bld) [#/Vol] 13.3 10*3/uL High 1.8-7.7 [facility] Comment on above: Performed By: #### G LULS #### Point of Care testing , No Panel InformationOrdered By: Emily Winn on 03-29-2024 Estimated GFR (CKD-EPI) > 60.0 mL/Min [facility] Creatinine Clearance (Chem 196.64 [facility] Nucleated erythrocytes [Pres ence] in Blood by Automated countOrdered By: Emily Winn on 03-29-2024 Nucleated RBC Auto Ql (Bld) 0.1 /100{WBC} 0-0.5 [facility] Platelet mean volume [Entiti c volume] in Blood by Automated countOrdered By: Emily Winn on 03-29-2024 Platelet mean volume (Bld) [Entitic vol] 7.4 fL Normal 6.6-10.1 [facility] Comment on above: Performed By: #### G LULS #### Point of Care testing , Platelets [#/volume] in Bloo d by Automated countOrdered By: Emily Winn on 03-29-2024 Platelets (Bld) [#/Vol] 352 10*3/uL Normal 150-450 [facility] Comment on above: Performed By: #### G LULS #### Point of Care testing , Potassium [Moles/volume] in Serum or PlasmaOrdered By: Emily Winn on 03-29-2024 Potassium [Moles/Vol] 4.4 mmol/L Normal 3.5-5.1 [facility] Comment on above: Performed By: #### B MP, MG, CBC #### [facility] [address] Serum or plasma anion gap de terminationOrdered By: Emily Winn on 03-29-2024 Anion gap [Moles/Vol] 14.4 mmol/L Normal 6.0-15.0 [facility] Comment on above: Performed By: #### B MP, MG, CBC #### [place] [address] [place] Sodium [Moles/volume] in Ser um or PlasmaOrdered By: Emily Winn on 03-29-2024 Sodium [Moles/Vol] 134 mmol/L Low 136-145 [facility] Comment on above: Performed By: #### B MP, MG, CBC #### [address] Urea nitrogen [Mass/volume] in Serum or PlasmaOrdered By: Emily Winn on 03-29-2024 Urea nitrogen [Mass/Vol] 15 mg/dL Normal 7-25 [facility] Comment on above: Performed By: #### B MP, MG, CBC #### [place] [address] [place] Activated partial thrombopla stin time (aPTT) in platelet poor plasma by coagulation aOrdered By: Danial Horan on 03-25-2024 aPTT Coag (PPP) [Time] 30.2 s 25.1-36.5 [facility] Comment on above: A hematocrit value g reater than 55% may lead to inaccurate results in coagulation testing. Patients having hematocrit values >55% require a special collection tube for coagulation studies. Please contact the laboratory at [phone] for redraw instructions. Aerobic Cultureon 03-25-2024 Aerobic [...] Seen 2+ White Blood Cells PERFORMED BY: [facility] [address] [place] [address] PATHOLOGIST CHANNELER RUNNER MARLYN MCKEON M.D. Normal [facility] Comment on above: Performed By: #### C BC, MG, PHOS, CMP #### [facility] [address] [place] [address] [place] Albumin [Mass/volume] in Cer ebral spinal fluidOrdered By: Danial Horan on 03-25-2024 Albumin (CSF) [Mass/Vol] 46 mg/dL High 10-45 [facility] Albumin [Mass/volume] in Ser um or PlasmaOrdered By: Danial Horan on 03-25-2024 Albumin [Mass/Vol] 4.2 g/dL 4.1-5.1 [facility] CSF IgG/albumin ratioOrdered By: Danial Horan on 03-25-2024 IgG/Albumin (CSF) [Mass ratio] 0.13 0.00-0.25 [facility] CSF PCR Panelon 03-25-2024 CSF PCR Panel [...] Varicella zoster virus Not detected PERFORMED BY: [facility] [address] [place] [address] PATHOLOGIST CHANNELER RUNNER MARLYN MCKEON M.D. Normal [facility] Comment on above: Performed By: #### C BC, MG, PHOS, CMP #### [facility] [address] [place] [address] [facility] Capillary blood glucose pete urement by glucometer (mass/volume)Ordered By: Simon Wolfe on 03-25-2024 Glucose [Mass/Vol] 127 mg/dL Normal [facility] Comment on above: Random Glucose Refer ence Range is dependent on time and content of last meal. Glucose of more than 200 mg/dL in a nonstressed, ambulatory subject supports the diagnosis of Diabetes Mellitus. Result Comment: [place] Glucose Reference Range is dependent on time and content of last meal. Glucose of more than 200 mg/dL in a nonstressed, ambulatory subject supports the diagnosis of Diabetes Mellitus. PERFORMED BY: [place] [address] PATHOLOGIST CHANNELER RUNNER MARLYN MCKEON M.D. Performed By: #### B MP, MG, CBC #### [address] Cell Count Differential,CSFo n 03-25-2024 Appearance, CSF Turbid Critically abnormal Clear [facility] Comment on above: Order Comment: Comme nt Tube 1 Performed By: #### C BC, MG, PHOS, CMP #### [address] Color, CSF Red Critically abnormal Colorless [facility] Comment on above: Order Comment: Comme nt Tube 1 Performed By: #### C BC, MG, PHOS, CMP #### [place] [address] [place] Eosinophil, CSF 2 % High 0-0 [facility] Comment on above: Order Comment: Comme nt Tube 1 Performed By: #### C BC, MG, PHOS, CMP #### [place] [address] [place] Lymphocytes, CSF 19 % Low 40-80 [facility] Comment on above: Order Comment: Comme nt Tube 1 Performed By: #### C BC, MG, PHOS, CMP #### [place] [address] [place] Monocytes, CSF 7 % Low 15-45 [facility] Comment on above: Order Comment: Comme nt Tube 1 Performed By: #### C BC, MG, PHOS, CMP #### [place] [address] [place] Neutrophils, CSF 72 % High 0-6 [facility] Comment on above: Order Comment: Comme nt Tube 1 Performed By: #### C BC, MG, PHOS, CMP #### [address] [place] [address] Normal [facility] Comment on above: Order Comment: Comme nt Tube 1 Result Comment: The reference interval and other method performance specifications have not been established for this body fluid. The test result must be integrated into the clinical context for interpretation. Performed By: #### C BC, MG, PHOS, CMP #### [address] TNC, CSF 85 Off scale high 0-5 [facility] Comment on above: Order Comment: Comme nt Tube 1 Result Comment: Crit ical value result called at 1233 on 03/25/24 Performed By: #### C BC, MG, PHOS, CMP #### [address] Tube Number Tested, CSF Tube Number: 1 Normal [facility] Comment on above: Order Comment: Comme nt Tube 1 Result Comment: PERF ORMED BY: [place] [address] PATHOLOGIST CHANNELER RUNNER MARLYN MCKEON M.D. Performed By: #### C BC, MG, PHOS, CMP #### [address] Cell Count Differential,CSF #2on 03-25-2024 Appearance, CSF Hazy Critically abnormal Clear [facility] Comment on above: Order Comment: Comme nt Tube 3 Performed By: #### C BC, MG, PHOS, CMP #### [place] [address] [place] Color, CSF LT PINK Normal Colorless [facility] Comment on above: Order Comment: Comme nt Tube 3 Performed By: #### C BC, MG, PHOS, CMP #### [address] CSF Supernatant Color Colorless Normal Colorless [facility] Comment on above: Order Comment: Comme nt Tube 3 Performed By: #### C BC, MG, PHOS, CMP #### [facility] [address] [place] [address] Order Comment: Comme nt Tube 1 CSF Volume, Total 9.0 mL Normal [facility] Comment on above: Order Comment: Comme nt Tube 3 Performed By: #### C BC, MG, PHOS, CMP #### [address] Order Comment: Comme nt Tube 1 Eosinophil, CSF 1 % High 0-0 [facility] Comment on above: Order Comment: Comme nt Tube 3 Performed By: #### C BC, MG, PHOS, CMP #### [address] Lymphocytes, CSF 29 % Low 40-80 [facility] Comment on above: Order Comment: Comme nt Tube 3 Performed By: #### C BC, MG, PHOS, CMP #### [facility] [address] [place] [address] Monocytes, CSF 8 % Low 15-45 [facility] Comment on above: Order Comment: Comme nt Tube 3 Performed By: #### C BC, MG, PHOS, CMP #### [address] Neutrophils, CSF 62 % High 0-6 [facility] Comment on above: Order Comment: Comme nt Tube 3 Performed By: #### C BC, MG, PHOS, CMP #### [facility] [address] [place] [address] RBC, CSF 3051 Normal [facility] Comment on above: Order Comment: Comme nt Tube 3 Result Comment: The reference interval and other method performance specifications have not been established for this body fluid. The test result must be integrated into the clinical context for interpretation. Performed By: #### C BC, MG, PHOS, CMP #### [facility] [address] [place] [address] TNC, CSF 3 /uL Normal 0-5 [facility] Comment on above: Order Comment: Comme nt Tube 3 Performed By: #### C BC, MG, PHOS, CMP #### [facility] [address] [place] [address] [place] Tube Number Tested, CSF Tube Number: 3 Normal [facility] Comment on above: Order Comment: Comme nt Tube 3 Result Comment: PERF ORMED BY: [address] [place] [address] PATHOLOGIST CHANNELER RUNNER MARLYN MCKEON M.D. Performed By: #### C BC, MG, PHOS, CMP #### [facility] [address] Cells Counted Total [#] in B patricia fluidOrdered By: Danial Horan on 03-25-2024 Cells Counted Total (Body fld) [#] 85 mm^3 High 0-5 [facility] Comment on above: Critical valueresult calledat 1233 on 03/25/24 Cerebrospinal fluid IgG inde xOrdered By: Danial Horan on 03-25-2024 IgG clearance/Albumin clearance (S+CSF) [Ratio] 0.6 0.0-0.7 [facility] Cerebrospinal fluid appearan ce descriptionOrdered By: Danial Horan on 03-25-2024 Appearance (CSF) Hazy Abnormal Clear [facility] Cerebrospinal fluid eosinoph il percentageOrdered By: Danial Horan on 03-25-2024 Eosinophils/100 WBC (CSF) 2 % High 0-0 [facility] Cerebrospinal fluid lymphocy te percentageOrdered By: Danial Horan on 03-25-2024 Lymphocytes/Leukocyte s Manual cnt (CSF) [Pure # fraction] 19 % Low 40-80 [facility] Cerebrospinal fluid monocyte percentageOrdered By: Danial Horan on 03-25-2024 Monocytes/100 WBC (CSF) 7 % Low 15-45 [facility] Cerebrospinal fluid neutroph il percentageOrdered By: Danial Horan on 03-25-2024 Neutrophils/100 WBC (CSF) 72 % High 0-6 [facility] Cerebrospinal fluid post-oneil trifugation appearance determinationOrdered By: Danial Horan on 03-25-2024 Appearance (Spun CSF) Colorless Colorless [facility] Cerebrospinal fluid sample t ube volume measurementOrdered By: Danial Horan on 03-25-2024 Specimen volume (CSF) 9.0 mL [facility] Color CSFOrdered By: Danial polanco on 03-25-2024 Color (CSF) Lt pink Colorless [facility] Erythrocytes [#/volume] in B patricia fluid by Automated countOrdered By: Danial Horan on 03-25-2024 RBC Auto (Body fld) [#/Vol] 3051 mm^3 [facility] Comment on above: The reference interv al and other method performance specifications have not been established for this body fluid. The test result must be integrated into the clinical context for interpretation. Glucose Poct Glucometerson 0 03-25-2024 Glucose [Mass/Vol] 156 mg/dL Normal [facility] Comment on above: Result Comment: [facility] Glucose Reference Range is dependent on time and content of last meal. Glucose of more than 200 mg/dL in a nonstressed, ambulatory subject supports the diagnosis of Diabetes Mellitus. PERFORMED BY: [place] [address] PATHOLOGIST CHANNELER RUNNER MARLYN MCKEON M.D. Performed By: #### C BC, MG, PHOS, CMP #### [address] Glucose [Mass/Vol] 114 mg/dL Normal [facility] Comment on above: Result Comment: [facility] Glucose Reference Range is dependent on time and content of last meal. Glucose of more than 200 mg/dL in a nonstressed, ambulatory subject supports the diagnosis of Diabetes Mellitus. PERFORMED BY: [place] [address] PATHOLOGIST CHANNELER RUNNER MARLYN MCKEON M.D. Performed By: #### G LULS #### Point of Care testing , Glucose [Mass/Vol] 99 mg/dL Normal [facility] Comment on above: Result Comment: [facility] Glucose Reference Range is dependent on time and content of last meal. Glucose of more than 200 mg/dL in a nonstressed, ambulatory subject supports the diagnosis of Diabetes Mellitus. PERFORMED BY: [place] [address] PATHOLOGIST CHANNELER RUNNER MARLYN MCKEON M.D. Performed By: #### G LULS #### Point of Care testing , Glucose [Mass/volume] in Cer ebral spinal fluidOrdered By: Danial Horan on 03-25-2024 Glucose (CSF) [Mass/Vol] 72 mg/dL High 40-70 [facility] Glucose, CSF #2on 03-25-2024 Glucose, CSF #2 72 mg/dL High 40-70 [facility] Comment on above: Order Comment: Comme nt Tube 3 Performed By: #### C BC, MG, PHOS, CMP #### [facility] [address] [place] [address] [place] Glucose, Spinal Fluidon 02-26 Glucose, Spinal Fluid 72 mg/dL High 40-70 [facility] Comment on above: Order Comment: Comme nt Tube 1 Performed By: #### C BC, MG, PHOS, CMP #### [facility] [address] [place] [address] [place] Gram Stainon 03-25-2024 Microscopic observation Gram stain Nom (Unsp spec) PER LAB PROTOCAL - WHEN PCR ORDERED, A CULTURE MUST BE ORDERED. Tube Number for CSF Microbiology: 2 Gram Stain Result No Bacteria Seen 2+ White Blood Cells PERFORMED BY: [place] [address] PATHOLOGIST CHANNELER RUNNER MARLNY MCKEON M.D. Normal [facility] Comment on above: Performed By: #### C BC, MG, PHOS, CMP #### [facility] [address] [place] [address] Gram stain for investigation of transfusion reactionOrdered By: Danial Horan on 03-25-2024 Microscopic observation Gram stain Nom (Unsp spec) [facility] Microscopic observation Gram stain Nom (Unsp spec) No Anaerobes Isolated 3 Days [facility] INR in Platelet poor plasma by Coagulation assayOrdered By: Danial Horan on 03-25-2024 INR Coag (PPP) [Relative time] 1.0 {INR} Normal [facility] Comment on above: INR Therapeutic Rang e [...] 03-25-2024 IR guided lumbar puncture LP [facility] [place] [address] [place] [address] Interventional Radiology Rpt Signed Patient: Bhumika Umana JR MR#: [id number] : 1975 Acct:[id number] Age/Sex: 48 / M ADM Date: 03/23/24 Loc: Room: [address] [place] [address] Type: ADM IN Attending Dr: Simon Wolfe MD Copies to: DO Simon Aguirre MD Ordering Provider: Danial Horan DO Date of Service: 03/25/24 IR/IR guided lumbar puncture LP: CONCERN FOR DEMYELINATING SYNDROME FLUOROSCOPICALLY GUIDED LUMBAR PUNCTURE CLINICAL HISTORY: Upper extremity weakness. 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 Cumulative Air Kerma in mGy: 31.4 [...] Mert Ferreira M.D.03/25/2024 12:51 PM Dictation Location: [place] [address] Transcribed By: [facility] 03/25/24 1251 Dictated By: Mert Ferreira DO 03/25/24 1247 Signed By: 03/25/24 1251 Normal [facility] IgG [Mass/volume] in Cerebra l spinal fluidOrdered By: Danial Horan on 03-25-2024 IgG (CSF) [Mass/Vol] 6.0 mg/dL 0.0-10.3 [facility] IgG [Mass/volume] in Serum o r PlasmaOrdered By: Danial Horan on 03-25-2024 IgG [Mass/Vol] 868 mg/dL 603-1613 [facility] IgG synthesis rate [Mass/tonya e] in Serum and CSF by calculationOrdered By: Danial Horan on 03-25-2024 IgG synthesis rate Calc (S+CSF) [Mass/Time] 5.9 mg/day High -9.9 TO +3.3 [facility] Comment on above: Performed at: [address] Director: Gabriel Chan PhD, Phone: [phone] [facility] 03-25-2024 L Specimen: [id number] Received: 03/25/24 Status: MEDINA Fleming Num: [id number] Spec Type: Cytology Subm Dr: Mert Ferreira DO Tissues: A CSF (CSF) Procedures: Cyto Prepstain, DIFF QWIK, PAPSTN Age/ Patient Sex Location Account Attending Physician Bhumika Umana JR 48/M 3T [id number] Simon Wolfe MD SPEC NUM: [id number] RECD: 03/25/24 STATUS: SOUT REQ NUM: [id number] SOL: 03/25/24- DR: Mert Ferreira DO ENTERED: 03/25/[address]: Danial Horan DO SPEC TYPE: Cytology DEPT: CNG ENTERED BY: [id number] RECV BY: [id number] ORDERED: Cyto Prepstain, DIFF QWIK, PAPSTN ORDERED: Cyto Prepstain, DIFF QWIK, PAPSTN Pathological Diagnosis Cerebrospinal fluid: Negative for malignant cells. Clinical Information Bilateral hand weakness Gross Description Received is .5 ml pale pink hazy unfixed fluid for cytology said to have been obtained as spinal fluid. Cytospin slides are stained with Papanicolaou and Diff-Quik stains.(SC/pr) CPT Codes 03680 Specimen: [id number] Received: 03/25/24 Status: MEDINA Fleming Num: [id number] Spec Type: Cytology Subm Dr: Mert Ferreira DO Tissues: A CSF (CSF) Procedures: Cyto Prepstain, DIFF QWIK, PAPSTN Patient: Bhumika Umana JR [id number] (Continued) Signed (signature on file) Jyoti Gary MD 03/26/24 1447 Normal [facility] MR cervical spine wo/w conon 03-25-2024 MR cervical spine wo/w con [facility] [place] [address] MRI Report Signed Patient: Bhumika Umana JR MR#: [id number] : 1975 Acct:[id number] Age/Sex: 48 / M ADM Date: 03/23/24 Loc: Room: [address] [place] [address] Type: ADM IN Attending Dr: Simon Wolfe [...] Pal Oconnor M.D.03/25/2024 12:45 PM Dictation Location: [place] [address] Transcribed By: [facility] 03/25/24 1245 Dictated By: Pal Oconnor II, MD 03/25/24 1237 Signed By: 03/25/24 1245 Normal [facility] Meningitis+Encephalitis path ogens DNA and RNA panel - Cerebral spinal fluid by BLAYNE wiOrdered By: Danial Horan on 03-25-2024 Meningitis+Encephalit is pathogens DNA and RNA panel BLAYNE+non-probe (CSF) [facility] No Panel InformationOrdered By: Danial Horan on 03-25-2024 CSF Myelin Basic Protein 2.7 ng/mL 0.0-4.7 [facility] Comment on above: Results of this test are labeled for research purposes onlyby the assay's carbon paper interleafer. The performancecharacteristics of this assay have not been established bythe carbon paper interleafer. The result should not be used fortreatment or for diagnostic purposes without confirmationof the diagnosis by another medically establisheddiagnostic product or procedure. The performancecharacteristics were determined by [employer].Performed at: [facility] - [facility] [address] [id number] Director: Mariano Jean MD, Phone: [phone] CSF Tube Number Tube number: 3 [facility] Partial Thromboplastin Timeo n 03-25-2024 aPTT Coag (Bld) [Time] 30.2 s Normal 25.1-36.5 [facility] Comment on above: Result Comment: A he matocrit value greater than 55% may lead to inaccurate results in coagulation testing. Patients having hematocrit values >55% require a special collection tube for coagulation studies. Please contact the laboratory at [phone] for redraw instructions. PERFORMED BY: [facility] [address] [place] [address] PATHOLOGIST CHANNELER RUNNER MARLYN MCKEON M.D. Performed By: #### G LULS #### Point of Care testing , Protein [Mass/volume] in Cer ebral spinal fluidOrdered By: Danial Horan on 03-25-2024 Protein (CSF) [Mass/Vol] 84 mg/dL High 15-45 [facility] Protein fractions.oligoclona l bands.intrathecal [Presence] in Serum and CSFOrdered By: Danial Horan on 03-25-2024 Protein fractions.oligoclonal bands.intrathecal Ql (S+CSF) Comment . [facility] Comment on above: Zero (0) oligoclonal bands were observed in the CSF.Interpretation: Criteria for Positivity: Four (4) or more oligoclonalbands observed only in the CSF have been shown to be mostconsistent with MS using our method. [Camila , Shayy Werner, and Desean JA: Cerebrospinal [...] using IsoelectricFocusing (IEF) and immunoblotting methodology.Performed at: - [address] [id number] Director: Gabriel Chan PhD, Phone: [phone] Prothrombin time (PT)Ordered By: Danial Horan on 03-25-2024 PT Coag (PPP) [Time] 11.1 s Normal 9.0-12.9 [facility] Comment on above: A hematocrit value g reater than 55% may lead to inaccurate results in coagulation testing. Patients having hematocrit values >55% require a special collection tube for coagulation studies. Please contact the laboratory at [phone] for redraw instructions. Result Comment: A he matocrit value greater than 55% may lead to inaccurate results in coagulation testing. Patients having hematocrit values >55% require a special collection tube for coagulation studies. Please contact the laboratory at [phone] for redraw instructions. Performed By: #### G LULS #### Point of Care testing , Total Protein, CSF #2on - Total Protein, CSF #2 84 mg/dL High 15-45 [facility] Comment on above: Order Comment: Comme nt Tube 3 Result Comment: PERF ORMED BY: [place] [address] PATHOLOGIST CHANNELER RUNNER MARLYN MCKEON M.D. Performed By: #### C BC, MG, PHOS, CMP #### [address] Total Protein, Spinal Fluido n 03-25-2024 Total Protein, Spinal Fluid 116 mg/dL High 15-45 [facility] Comment on above: Order Comment: Comme nt Tube 1 Result Comment: PERF ORMED BY: [place] [address] PATHOLOGIST CHANNELER RUNNER MARLYN MCKEON M.D. Performed By: #### C BC, MG, PHOS, CMP #### [facility] [address] [place] [address] [place] Alanine aminotransferase [En zymatic activity/volume] in Serum or PlasmaOrdered By: Elder Iyer on 03-24-2024 ALT [Catalytic activity/Vol] 24 U/L Normal 7-52 [facility] Comment on above: Performed By: #### C BC, MG, PHOS, CMP #### [facility] [address] [place] [address] [place] Albumin [Mass/volume] in Ser um or Plasma by Bromocresol green (BCG) dye binding methoOrdered By: Elder Iyer on 03-24-2024 Albumin BCG dye [Mass/Vol] 4.1 g/dL 3.5-5.7 [facility] Alkaline phosphatase [Enzyma tic activity/volume] in Serum or PlasmaOrdered By: Elder Iyer on 03-24-2024 ALP [Catalytic activity/Vol] 59 U/L Normal 34-104 [facility] Comment on above: Performed By: #### C BC, MG, PHOS, CMP #### [facility] [address] [place] [address] Aspartate aminotransferase [ Enzymatic activity/volume] in Serum or PlasmaOrdered By: Elder Iyer on 03-24-2024 AST [Catalytic activity/Vol] 14 U/L Normal 13-39 [facility] Comment on above: Performed By: #### C BC, MG, PHOS, CMP #### [facility] [address] [place] [address] Automated basophil %Ordered By: Elder Iyer on 03-24-2024 Basophils/100 WBC (Bld) 0.5 % Normal . [facility] Comment on above: Performed By: #### C BC, MG, PHOS, CMP #### [facility] [address] [place] [address] [place] Automated basophil countOrde red By: Elder Iyer on 03-24-2024 Basophils (Bld) [#/Vol] 0.1 10*3/uL Normal 0.0-0.2 [facility] Comment on above: Result Comment: PERF ORMED BY: [place] [address] PATHOLOGIST CHANNELER RUNNER MARLYN MCKEON M.D. Performed By: #### C BC, MG, PHOS, CMP #### [address] Automated blood monocyte cou ntOrdered By: Elder Iyer on 03-24-2024 Monocytes (Bld) [#/Vol] 1.5 10*3/uL High 0.0-0.8 [facility] Comment on above: Performed By: #### C BC, MG, PHOS, CMP #### [address] Automated eosinophil %Ordere d By: Elder Iyer on 03-24-2024 Eosinophils/100 WBC (Bld) 0.6 % Normal . [facility] Comment on above: Performed By: #### C BC, MG, PHOS, CMP #### [address] Automated eosinophil countOr dered By: Elder Iyer on 03-24-2024 Eosinophils (Bld) [#/Vol] 0.1 10*3/uL Normal 0.0-0.45 [facility] Comment on above: Performed By: #### C BC, MG, PHOS, CMP #### [address] Automated monocyte %Ordered By: Elder Iyer on 03-24-2024 Monocytes/100 WBC (Bld) 8.3 % Normal . [facility] Comment on above: Performed By: #### C BC, MG, PHOS, CMP #### [address] Automated neutrophil %Ordere d By: Elder Iyer on 03-24-2024 Neutrophils/100 WBC (Bld) 57.7 % Normal . [facility] Comment on above: Performed By: #### C BC, MG, PHOS, CMP #### [address] Bilirubin.total [Mass/volume ] in Serum or PlasmaOrdered By: Elder Iyer on 03-24-2024 Bilirubin [Mass/Vol] 0.8 mg/dL Normal 0.3-1.0 [facility] Comment on above: Performed By: #### C BC, MG, PHOS, CMP #### [address] Calcium [Mass/volume] in Ser um or PlasmaOrdered By: Elder Iyer on 03-24-2024 Calcium [Mass/Vol] 8.8 mg/dL Normal 8.6-10.3 [facility] Comment on above: Performed By: #### C BC, MG, PHOS, CMP #### [address] Carbon dioxide, total [Moles /volume] in Serum or PlasmaOrdered By: Elder Iyer on 03-24-2024 CO2 [Moles/Vol] 28.6 mmol/L Normal 21.0-31.0 [facility] Comment on above: Performed By: #### C BC, MG, PHOS, CMP #### [address] Chloride [Moles/volume] in S vandana or PlasmaOrdered By: Elder Iyer on 03-24-2024 Chloride [Moles/Vol] 101 mmol/L Normal 98-107 [facility] Comment on above: Performed By: #### C BC, MG, PHOS, CMP #### [facility] [address] [place] [address] Complete Blood Count Auto Di ffon 03-24-2024 Mean Corpuscular HGB Conc 33.3 g/dL Normal 32.5-35.6 [facility] Comment on above: Performed By: #### C BC, MG, PHOS, CMP #### [address] NRBC% 0.2 /100{WBC} Normal 0-0.5 [facility] Comment on above: Performed By: #### C BC, MG, PHOS, CMP #### [facility] [address] [place] [address] Comprehensive Metabolic Pane rayshawn 03-24-2024 Albumin [Mass/Vol] 4.1 g/dL Normal 3.5-5.7 [facility] Comment on above: Performed By: #### C BC, MG, PHOS, CMP #### [address] Creatinine Clr Calc Pharmacy 164.23 Normal [facility] Comment on above: Performed By: #### C BC, MG, PHOS, CMP #### [address] GFR/1.73 sq M.predicted MDRD (S/P/Bld) [Vol rate/Area] mL/min/{1.73_m2} Normal [facility] Comment on above: Performed By: #### C BC, MG, PHOS, CMP #### [address] Creatinine [Mass/volume] in Serum or PlasmaOrdered By: Elder Iyer on 03-24-2024 Creatinine [Mass/Vol] 0.88 mg/dL Normal 0.70-1.30 [facility] Comment on above: Performed By: #### C BC, MG, PHOS, CMP #### [address] Erythrocyte distribution wid th [Ratio] by Automated countOrdered By: Elder Iyer on 03-24-2024 Erythrocyte distribution width (RBC) [Ratio] 13.8 % Normal 12.0-14.8 [facility] Comment on above: Performed By: #### C BC, MG, PHOS, CMP #### [address] Erythrocytes [#/volume] in B lood by Automated countOrdered By: Elder Iyer on 03-24-2024 RBC (Bld) [#/Vol] 5.07 10*6/uL Normal 3.90-5.60 [facility] Comment on above: Performed By: #### C BC, MG, PHOS, CMP #### [address] Glucose Poct Glucometerson 0 03-24-2024 Glucose [Mass/Vol] 162 mg/dL Normal [facility] Comment on above: Result Comment: [place] om Glucose Reference Range is dependent on time and content of last meal. Glucose of more than 200 mg/dL in a nonstressed, ambulatory subject supports the diagnosis of Diabetes Mellitus. PERFORMED BY: [place] [address] PATHOLOGIST CHANNELER RUNNER MARLYN MCKEON M.D. Performed By: #### C BC, MG, PHOS, CMP #### [address] Commemt1 Glu2: Cleaned Meter Normal [facility] Comment on above: Result Comment: PERF ORMED BY: [place] [address] PATHOLOGIST CHANNELER RUNNER MARLYN MCKEON M.D. Performed By: #### G LULS #### Point of Care testing , Glucose [Mass/Vol] 114 mg/dL Normal [facility] Comment on above: Result Comment: [place] [facility] Glucose Reference Range is dependent on time and content of last meal. Glucose of more than 200 mg/dL in a nonstressed, ambulatory subject supports the diagnosis of Diabetes Mellitus. Performed By: #### G LULS #### Point of Care testing , Commemt1 Glu2: Cleaned Meter Normal [facility] Comment on above: Result Comment: PERF ORMED BY: [place] [address] PATHOLOGIST CHANNELER RUNNER MARLYN MCKEON M.D. Performed By: #### B MP, MG, CBC #### [address] Glucose [Mass/Vol] 126 mg/dL Normal [facility] Comment on above: Result Comment: [place] [facility] Glucose Reference Range is dependent on time and content of last meal. Glucose of more than 200 mg/dL in a nonstressed, ambulatory subject supports the diagnosis of Diabetes Mellitus. Performed By: #### B MP, MG, CBC #### [facility] [address] Glucose [Mass/Vol] 128 mg/dL Normal [facility] Comment on above: Result Comment: [facility] Glucose Reference Range is dependent on time and content of last meal. Glucose of more than 200 mg/dL in a nonstressed, ambulatory subject supports the diagnosis of Diabetes Mellitus. PERFORMED BY: [place] [address] PATHOLOGIST CHANNELER RUNNER MARLYN MCKEON M.D. Performed By: #### G LULS #### Point of Care testing , Glucose [Mass/Vol] 125 mg/dL Normal [facility] Comment on above: Result Comment: [facility] Glucose Reference Range is dependent on time and content of last meal. Glucose of more than 200 mg/dL in a nonstressed, ambulatory subject supports the diagnosis of Diabetes Mellitus. PERFORMED BY: [place] [address] PATHOLOGIST CHANNELER RUNNER MARLYN MCKEON M.D. Performed By: #### G LULS #### Point of Care testing , Glucose [Mass/volume] in Ser um or PlasmaOrdered By: Elder Iyer on 03-24-2024 Glucose [Mass/Vol] 136 mg/dL Significant change up 70-100 [facility] Comment on above: Delta: 241 on -[id number] recommended reference rangeRandom Glucose Reference Range is dependent on time and content of last meal. Glucose of more than 200 mg/dL in a nonstressed, ambulatory subject supports the diagnosis of Diabetes Mellitus. Result Comment: [facility] Glucose Reference Range is dependent on time and content of last meal. Glucose of more than 200 mg/dL in a nonstressed, ambulatory subject supports the diagnosis of Diabetes Mellitus. ADA recommended reference range Performed By: #### C BC, MG, PHOS, CMP #### [facility] [address] [place] [address] Hematocrit [Volume Fraction] of Blood by Automated countOrdered By: Elder Iyer on 03-24-2024 Hematocrit (Bld) [Volume fraction] 44.7 % Normal 38.8-50.0 [facility] Comment on above: Performed By: #### C BC, MG, PHOS, CMP #### [facility] [address] Hemoglobin [Mass/volume] in BloodOrdered By: Elder Iyer on 03-24-2024 Hemoglobin (Bld) [Mass/Vol] 14.9 g/dL Normal 13.0-17.0 [facility] Comment on above: Performed By: #### C BC, MG, PHOS, CMP #### [facility] [address] Leukocytes [#/volume] correc elizabeth for nucleated erythrocytes in Blood by Automated counOrdered By: Elder Iyer on 03-24-2024 WBC corrected for nucl RBC Auto (Bld) [#/Vol] 18.2 10*3/uL High 4.1-10.5 [facility] Leukocytes [#/volume] in Blo od by Automated countOrdered By: Elder Iyer on 03-24-2024 WBC (Bld) [#/Vol] 18.2 10*3/uL High 4.1-10.5 [facility] Comment on above: Performed By: #### C BC, MG, PHOS, CMP #### [facility] [address] [place] [address] Lymphocytes [#/volume] in Bl ood by Automated countOrdered By: Elder Iyer on 03-24-2024 Lymphocytes (Bld) [#/Vol] 6.0 10*3/uL High 1.00-4.8 [facility] Comment on above: Performed By: #### C BC, MG, PHOS, CMP #### [facility] [address] [place] [address] [place] Lymphocytes/100 leukocytes i n Blood by Automated countOrdered By: Elder Iyer on 03-24-2024 Lymphocytes/100 WBC (Bld) 32.9 % Normal . [facility] Comment on above: Performed By: #### C BC, MG, PHOS, CMP #### [facility] [address] [place] [address] [place] MCH [Entitic mass] by Automa elizabeth countOrdered By: Elder Iyer on 03-24-2024 MCH (RBC) [Entitic mass] 29.3 pg Normal 27.5-35.2 [facility] Comment on above: Performed By: #### C BC, MG, PHOS, CMP #### [facility] [address] [place] [address] MCHC Auto (RBC) [Mass/Vol]Or dered By: Elder Iyer on 03-24-2024 MCHC (RBC) [Mass/Vol] 33.3 g/dL 32.5-35.6 [facility] MCV [Entitic volume] by Auto mated countOrdered By: Elder Iyer on 03-24-2024 MCV (RBC) [Entitic vol] 88.2 fL Normal 83.5-101 [facility] Comment on above: Performed By: #### C BC, MG, PHOS, CMP #### [facility] [address] [place] [address] Magnesium [Mass/volume] in S vandana or PlasmaOrdered By: Elder Iyer on 03-24-2024 Magnesium [Mass/Vol] 2.1 mg/dL Normal 1.9-2.7 [facility] Comment on above: Result Comment: PERF ORMED BY: [place] [address] PATHOLOGIST CHANNELER RUNNER MARLYN MCKEON M.D. Performed By: #### C BC, MG, PHOS, CMP #### [facility] [address] [place] [address] Neutrophils [#/volume] in Bl ood by Automated countOrdered By: Elder Iyer on 03-24-2024 Neutrophils (Bld) [#/Vol] 10.5 10*3/uL High 1.8-7.7 [facility] Comment on above: Performed By: #### C BC, MG, PHOS, CMP #### [facility] [address] [place] [address] No Panel InformationOrdered By: Elder Iyer on 03-24-2024 Bedside Glucose Comment Glu2: cleaned meter [facility] Estimated GFR (CKD-EPI) > 60.0 mL/Min [facility] Creatinine Clearance (Chem 164.23 [facility] Nucleated erythrocytes [Pres ence] in Blood by Automated countOrdered By: Elder Iyer on 03-24-2024 Nucleated RBC Auto Ql (Bld) 0.2 /100{WBC} 0-0.5 [facility] Phosphate [Mass/volume] in S vandana or PlasmaOrdered By: Elder Iyer on 03-24-2024 Phosphate [Mass/Vol] 4.2 mg/dL Normal 2.5-4.5 [facility] Comment on above: Performed By: #### C BC, MG, PHOS, CMP #### [facility] [address] [place] [address] [place] Platelet mean volume [Entiti c volume] in Blood by Automated countOrdered By: Elder Iyer on 03-24-2024 Platelet mean volume (Bld) [Entitic vol] 7.6 fL Normal 6.6-10.1 [facility] Comment on above: Performed By: #### C BC, MG, PHOS, CMP #### [facility] [address] [place] [address] [place] Platelets [#/volume] in Bloo d by Automated countOrdered By: Elder Iyer on 03-24-2024 Platelets (Bld) [#/Vol] 364 10*3/uL Normal 150-450 [facility] Comment on above: Performed By: #### C BC, MG, PHOS, CMP #### [facility] [address] [place] [address] [place] Potassium [Moles/volume] in Serum or PlasmaOrdered By: Elder Iyer on 03-24-2024 Potassium [Moles/Vol] 3.9 mmol/L Normal 3.5-5.1 [facility] Comment on above: Performed By: #### C BC, MG, PHOS, CMP #### [facility] [address] [place] [address] [place] Protein [Mass/volume] in Ser um or PlasmaOrdered By: Elder Iyer on 03-24-2024 Protein [Mass/Vol] 6.5 g/dL Normal 6.4-8.9 [facility] Comment on above: Performed By: #### C BC, MG, PHOS, CMP #### [facility] [address] [place] [address] Serum globulin measurement b y calculation (mass/volume)Ordered By: Elder Iyer on 03-24-2024 Globulin (S) [Mass/Vol] 2.4 g/dL [facility] Comment on above: Performed By: #### C BC, MG, PHOS, CMP #### [facility] [address] [place] [address] Serum or plasma albumin/glob ulin mass ratioOrdered By: Elder Iyer on 03-24-2024 Albumin/Globulin [Mass ratio] 1.7 {ratio} [facility] Comment on above: Performed By: #### C BC, MG, PHOS, CMP #### [facility] [address] [place] [address] Serum or plasma anion gap de terminationOrdered By: Elder Iyer on 03-24-2024 Anion gap [Moles/Vol] 12.3 mmol/L Normal 6.0-15.0 [facility] Comment on above: Performed By: #### C BC, MG, PHOS, CMP #### [facility] [address] [place] [address] Sodium [Moles/volume] in Ser um or PlasmaOrdered By: Elder Iyer on 03-24-2024 Sodium [Moles/Vol] 138 mmol/L Significant change down 136-145 [facility] Comment on above: Delta: 132 on -616 Performed By: #### C BC, MG, PHOS, CMP #### [facility] [address] [place] [address] Urea nitrogen [Mass/volume] in Serum or PlasmaOrdered By: Elder Iyer on 03-24-2024 Urea nitrogen [Mass/Vol] 25 mg/dL Normal 7-25 [facility] Comment on above: Performed By: #### C BC, MG, PHOS, CMP #### [facility] [address] [place] [address] A1C with Estimated Average Magdalena wolf 03-23-2024 Glucose [Mass/Vol] 166 mg/dL Normal [facility] Comment on above: Result Comment: PERF ORMED BY: [place] [address] PATHOLOGIST CHANNELER RUNNER MARLYN MCKEON M.D. Performed By: #### G LULS #### Point of Care testing , BNP ser/plasOrdered By: Veronika Gonzales on 03-23-2024 Natriuretic peptide B (Bld) [Mass/Vol] 27.0 pg/mL Normal 5-100 [facility] Comment on above: Result Comment: PERF ORMED BY: [place] [address] PATHOLOGIST CHANNELER RUNNER MARLYN MCKEON M.D. Performed By: #### C BC, MG, PHOS, CMP #### [address] Basic Metabolic Panelon 02-26 Anion gap [Moles/Vol] 16.0 mmol/L High 6.0-15.0 [facility] Comment on above: Performed By: #### G LULS #### Point of Care testing , Calcium [Mass/Vol] 9.2 mg/dL Normal 8.6-10.3 [facility] Comment on above: Performed By: #### G LULS #### Point of Care testing , Chloride [Moles/Vol] 97 mmol/L Low 98-107 [facility] Comment on above: Performed By: #### G LULS #### Point of Care testing , CO2 [Moles/Vol] 23.4 mmol/L Normal 21.0-31.0 [facility] Comment on above: Performed By: #### G LULS #### Point of Care testing , Creatinine [Mass/Vol] 0.75 mg/dL Normal 0.70-1.30 [facility] Comment on above: Performed By: #### G LULS #### Point of Care testing , Creatinine Clr Calc Pharmacy 195.42 Normal [facility] Comment on above: Performed By: #### G LULS #### Point of Care testing , GFR/1.73 sq M.predicted MDRD (S/P/Bld) [Vol rate/Area] mL/min/{1.73_m2} Normal [facility] Comment on above: Performed By: #### G LULS #### Point of Care testing , Glucose [Mass/Vol] 241 mg/dL Significant change up 70-100 [facility] Comment on above: Result Comment: [facility] Glucose Reference Range is dependent on time and content of last meal. Glucose of more than 200 mg/dL in a nonstressed, ambulatory subject supports the diagnosis of Diabetes Mellitus. ADA recommended reference range Performed By: #### G LULS #### Point of Care testing , Potassium [Moles/Vol] 4.4 mmol/L Normal 3.5-5.1 [facility] Comment on above: Performed By: #### G LULS #### Point of Care testing , Sodium [Moles/Vol] 132 mmol/L Low 136-145 [facility] Comment on above: Performed By: #### G LULS #### Point of Care testing , Urea nitrogen [Mass/Vol] 22 mg/dL Normal 7-25 [facility] Comment on above: Performed By: #### G LULS #### Point of Care testing , Anion gap [Moles/Vol] 17.4 mmol/L High 6.0-15.0 [facility] Comment on above: Performed By: #### C BC, MG, PHOS, CMP #### [facility] [address] [place] [address] [place] Calcium [Mass/Vol] 9.4 mg/dL Normal 8.6-10.3 [facility] Comment on above: Performed By: #### C BC, MG, PHOS, CMP #### [facility] [address] [place] [address] [place] Chloride [Moles/Vol] 97 mmol/L Low 98-107 [facility] Comment on above: Performed By: #### C BC, MG, PHOS, CMP #### [address] CO2 [Moles/Vol] 23.2 mmol/L Normal 21.0-31.0 [facility] Comment on above: Performed By: #### C BC, MG, PHOS, CMP #### [facility] [address] [place] [address] [place] Creatinine [Mass/Vol] 0.82 mg/dL Normal 0.70-1.30 [facility] Comment on above: Performed By: #### C BC, MG, PHOS, CMP #### [place] [address] [place] Creatinine Clr Calc Pharmacy 178.94 Normal [facility] Comment on above: Result Comment: PERF ORMED BY: [place] [address] PATHOLOGIST CHANNELER RUNNER MARLYN MCKEON M.D. Performed By: #### C BC, MG, PHOS, CMP #### [place] [address] [place] GFR/1.73 sq M.predicted MDRD (S/P/Bld) [Vol rate/Area] mL/min/{1.73_m2} Normal [facility] Comment on above: Performed By: #### C BC, MG, PHOS, CMP #### [address] Glucose [Mass/Vol] 342 mg/dL High 70-100 [facility] Comment on above: Result Comment: [place] Glucose Reference Range is dependent on time and content of last meal. Glucose of more than 200 mg/dL in a nonstressed, ambulatory subject supports the diagnosis of Diabetes Mellitus. ADA recommended reference range Performed By: #### C BC, MG, PHOS, CMP #### [facility] [address] Potassium [Moles/Vol] 4.6 mmol/L Normal 3.5-5.1 [facility] Comment on above: Performed By: #### C BC, MG, PHOS, CMP #### [facility] [address] Sodium [Moles/Vol] 133 mmol/L Low 136-145 [facility] Comment on above: Performed By: #### C BC, MG, PHOS, CMP #### [facility] [address] Urea nitrogen [Mass/Vol] 23 mg/dL Normal 7-25 [facility] Comment on above: Performed By: #### C BC, MG, PHOS, CMP #### [facility] [address] Borrelia burgdorferi IgG+IgM Ab [Presence] in Serum by ImmunoassayOrdered By: Danial Horan on 03-23-2024 B. burgdorferi IgG+IgM IA Ql (S) Negative Negative [facility] [facility] Comment on above: Lyme antibodies not detected. Reflex testing is notindicated.No laboratory evidence of infection with B. burgdorferi(Lyme disease). Negative results may occur in patientsrecently infected (less than or equal to 14 days) with B.burgdorferi. If recent infection is suspected, repeattesting on a new sample collected in 7 to 14 days isrecommended.Performed at: [facility] [address] [id number] Director: Gabriel Chan PhD, Phone: [phone] C reactive protein [Mass/vol ume] in Serum or PlasmaOrdered By: Danial Horan on 03-23-2024 CRP [Mass/Vol] < 0.5 mg/dL 0.0-0.5 [facility] C-Reactive Proteinon 024 CRP [Mass/Vol] mg/L Normal 0.0-0.5 [facility] Comment on above: Result Comment: PERF ORMED BY: [place] [address] PATHOLOGIST CHANNELER RUNNER MARLYN MCKEON M.D. Performed By: #### G LULS #### Point of Care testing , Complete Blood Count Auto Di ffon 03-23-2024 Basophils (Bld) [#/Vol] 0.1 10*3/uL Normal 0.0-0.2 [facility] Comment on above: Result Comment: PERF ORMED BY: [place] [address] PATHOLOGIST CHANNELER RUNNER MARLYN MCKEON M.D. Performed By: #### C BC, MG, PHOS, CMP #### [address] Basophils/100 WBC (Bld) 0.5 % Normal . [facility] Comment on above: Performed By: #### C BC, MG, PHOS, CMP #### [address] Eosinophils (Bld) [#/Vol] 0.0 10*3/uL Normal 0.0-0.45 [facility] Comment on above: Performed By: #### C BC, MG, PHOS, CMP #### [address] Eosinophils/100 WBC (Bld) 0.0 % Normal . [facility] Comment on above: Performed By: #### C BC, MG, PHOS, CMP #### [address] Erythrocyte distribution width (RBC) [Ratio] 13.9 % Normal 12.0-14.8 [facility] Comment on above: Performed By: #### C BC, MG, PHOS, CMP #### [address] Hematocrit (Bld) [Volume fraction] 47.0 % Normal 38.8-50.0 [facility] Comment on above: Performed By: #### C BC, MG, PHOS, CMP #### [address] Hemoglobin (Bld) [Mass/Vol] 15.9 g/dL Normal 13.0-17.0 [facility] Comment on above: Performed By: #### C BC, MG, PHOS, CMP #### [address] Lymphocytes (Bld) [#/Vol] 1.4 10*3/uL Normal 1.00-4.8 [facility] Comment on above: Performed By: #### C BC, MG, PHOS, CMP #### [address] Lymphocytes/100 WBC (Bld) 8.2 % Normal . [facility] Comment on above: Performed By: #### C BC, MG, PHOS, CMP #### [address] MCH (RBC) [Entitic mass] 29.8 pg Normal 27.5-35.2 [facility] Comment on above: Performed By: #### C BC, MG, PHOS, CMP #### [address] MCV (RBC) [Entitic vol] 88.1 fL Normal 83.5-101 [facility] Comment on above: Performed By: #### C BC, MG, PHOS, CMP #### [address] Mean Corpuscular HGB Conc 33.8 g/dL Normal 32.5-35.6 [facility] Comment on above: Performed By: #### C BC, MG, PHOS, CMP #### [address] Monocyte Distribution Width Not performed Normal 0.00-20.00 [facility] Comment on above: Result Comment: Unab le to calculate MDW because the Absolute Monocyte Count is <0.8. Performed By: #### C BC, MG, PHOS, CMP #### [address] Monocytes (Bld) [#/Vol] 0.2 10*3/uL Normal 0.0-0.8 [facility] Comment on above: Performed By: #### C BC, MG, PHOS, CMP #### [address] Monocytes/100 WBC (Bld) 1.0 % Normal . [facility] Comment on above: Performed By: #### C BC, MG, PHOS, CMP #### [address] Neutrophils (Bld) [#/Vol] 15.5 10*3/uL High 1.8-7.7 [facility] Comment on above: Performed By: #### C BC, MG, PHOS, CMP #### [address] Neutrophils/100 WBC (Bld) 90.3 % Normal . [facility] Comment on above: Performed By: #### C BC, MG, PHOS, CMP #### [address] NRBC% 0.1 /100{WBC} Normal 0-0.5 [facility] Comment on above: Performed By: #### C BC, MG, PHOS, CMP #### [address] Platelet mean volume (Bld) [Entitic vol] 7.4 fL Normal 6.6-10.1 [facility] Comment on above: Performed By: #### C BC, MG, PHOS, CMP #### [address] Platelets (Bld) [#/Vol] 381 10*3/uL Normal 150-450 [facility] Comment on above: Performed By: #### C BC, MG, PHOS, CMP #### [place] [address] [place] RBC (Bld) [#/Vol] 5.33 10*6/uL Normal 3.90-5.60 [facility] Comment on above: Performed By: #### C BC, MG, PHOS, CMP #### [place] [address] [place] WBC (Bld) [#/Vol] 17.1 10*3/uL High 4.1-10.5 [facility] Comment on above: Performed By: #### C BC, MG, PHOS, CMP #### [place] [address] [place] Creatine Kinaseon 03-23-2024 CK [Catalytic activity/Vol] 37 U/L Normal 30-223 [facility] Comment on above: Performed By: #### C BC, MG, PHOS, CMP #### [address] Creatine kinase [Enzymatic a ctivity/volume] in Serum or PlasmaOrdered By: Danial Horan on 03-23-2024 CK [Catalytic activity/Vol] 34 U/L Normal 30-223 [facility] Comment on above: Result Comment: PERF ORMED BY: [place] [address] PATHOLOGIST CHANNELER RUNNER MARLYN MCKEON M.D. Performed By: #### G LULS #### Point of Care testing , ECG 12 lead ECGon 03-23-2024 ECG 12 lead ECG [facility] [place] [address] [place] [address] Electrocardiograph Report Signed Patient: Bhumika Umana JR MR#: [id number] : 1975 Acct:[id number] Age/Sex: 48 / M ADM Date: 03/23/24 Loc: ER Room: Type: [facility] ER Attending Dr: Ordering Provider: Gale Gonzales [...] ECGs available Confirmed by Gale Gonzales MD ([id number]) on 03/23/2024 2:06:14 AM Referred By: Electronically Signed By: Gale Gonzales MD Transcribed By: MUS Signed By Gale Gonzales MD 02/26 03/20 0206 Normal [facility] Erythrocyte Sedimentation Ra devaughn 03-23-2024 ESR (Bld) [Velocity] 14 mm/h Normal 0-14 [facility] Comment on above: Result Comment: PERF ORMED BY: [facility] [address] [facility]. [place] [id number] PATHOLOGIST CHANNELER RUNNER MARLYN MCKEON M.D. Performed By: #### G MARGARITA #### Point of Care testing , Erythrocyte sedimentation ra te by Photometric methodOrdered By: Danial Horan on 03-23-2024 ESR Photometric method (Bld) [Velocity] 14 mm/hr 0-14 [facility] Folate [Mass/volume] in Seru m or PlasmaOrdered By: Bola Garcia on 03-23-2024 Folate [Mass/Vol] 13.0 ng/mL >5.9 [facility] Comment on above: Folate reference ran ge: >5.9 ng/mlThe WHO technical consultation on folate and vitamin [id number] has determined that folate concentrations lessthan 4 ng/ml are considered deficient. Glucose Poct Glucometerson 0 03-23-2024 Commemt1 Glu2: Cleaned Meter Normal [facility] Comment on above: Result Comment: PERF ORMED BY: [address] [place] [id number] PATHOLOGIST CHANNELER RUNNER MARLYN MCKEON M.D. Performed By: #### C BC, MG, PHOS, CMP #### [facility] [address] [place], [place] [id number] [facility] Glucose [Mass/Vol] 166 mg/dL Normal [facility] Comment on above: Result Comment: [place] om Glucose Reference Range is dependent on time and content of last meal. Glucose of more than 200 mg/dL in a nonstressed, ambulatory subject supports the diagnosis of Diabetes Mellitus. Performed By: #### C BC, MG, PHOS, CMP #### [facility] [address] [place] [address] [place] Glucose [Mass/Vol] 133 mg/dL Normal [facility] Comment on above: Result Comment: [place] om Glucose Reference Range is dependent on time and content of last meal. Glucose of more than 200 mg/dL in a nonstressed, ambulatory subject supports the diagnosis of Diabetes Mellitus. PERFORMED BY: [facility] [address] [facility] [place] [id number] PATHOLOGIST CHANNELER RUNNER MARLYN MCKEON M.D. Performed By: #### G LULS #### Point of Care testing , Glucose [Mass/Vol] 180 mg/dL Normal [facility] Comment on above: Result Comment: [place] Glucose Reference Range is dependent on time and content of last meal. Glucose of more than 200 mg/dL in a nonstressed, ambulatory subject supports the diagnosis of Diabetes Mellitus. PERFORMED BY: [place] [address] PATHOLOGIST CHANNELER RUNNER MARLYN MCKEON M.D. Performed By: #### G LULS #### Point of Care testing , Glucose [Mass/Vol] 216 mg/dL Normal [facility] Comment on above: Result Comment: [place] Glucose Reference Range is dependent on time and content of last meal. Glucose of more than 200 mg/dL in a nonstressed, ambulatory subject supports the diagnosis of Diabetes Mellitus. PERFORMED BY: [place] [address] PATHOLOGIST CHANNELER RUNNER MARLYN MCKEON M.D. Performed By: #### G LULS #### Point of Care testing , Commemt1 Glu2: Cleaned Meter Normal [facility] Comment on above: Result Comment: PERF ORMED BY: [place] [address] PATHOLOGIST CHANNELER RUNNER MARLYN MCKEON M.D. Performed By: #### C BC, MG, PHOS, CMP #### [facility] [address] [place] [address] Glucose [Mass/Vol] 362 mg/dL Normal [facility] Comment on above: Result Comment: [place] om Glucose Reference Range is dependent on time and content of last meal. Glucose of more than 200 mg/dL in a nonstressed, ambulatory subject supports the diagnosis of Diabetes Mellitus. Performed By: #### C BC, MG, PHOS, CMP #### [facility] [address] [place] [address] Glucose mean value [Mass/vol ume] in Blood Estimated from glycated hemoglobinOrdered By: Bola Garcia on 03-23-2024 Average glucose Estimated from glycated hemoglobin (Bld) [Mass/Vol] 166 mg/dL [facility] Hemoglobin A1c percentageOrd ered By: Bola Garcia on 03-23-2024 HbA1c (Bld) [Mass fraction] 7.4 % High 4.3-5.6 [facility] Comment on above: Increased risk for d iabetes: 5.7 - 6.4diabetes: >6.4glycemic control for adults with diabetes: <7.0 Result Comment: Incr eased risk for diabetes: 5.7 - 6.4 diabetes: >6.4 glycemic control for adults with diabetes: <7.0 Performed By: #### G LULS #### Point of Care testing , Lyme, Total Ab with Reflexon 03-23-2024 Lyme Total Antibody Negative Normal Negative [facility] Comment on above: Result Comment: [...] to 14 days is recommended. Performed at: [facility] [address] [id number] Pneumatic Jacketer: Gabriel Chan PhD, Phone: [phone] PERFORMED BY: [place] [address] PATHOLOGIST CHANNELER RUNNER MARLYN MCKEON M.D. Performed By: #### G LULS #### Point of Care testing , MR head/brain wo/w conon MR head/brain wo/w con [facility] [place] [address] MRI Report Signed Patient: Buhmika Umana JR MR#: [id number] : 1975 Acct:[id number] Age/Sex: 48 / M ADM Date: 03/23/24 Loc: Room: [address] [place] [address] Type: ADM IN Attending Dr: Elder Iyer MD Copies to: Bola L LindblDO Elder mahmood MD Ordering Provider: Bola Garcia DO Date [...] Gonzales Jr., D.O.03/23/2024 10:46 AM Dictation Location: [place] [address] Transcribed By: [facility] 03/23/24 1046 Dictated By: Rene Gonzales Jr, DO 03/23/24 1039 Signed By: 03/23/24 1046 Normal [facility] Monocyte distribution width [Entitic volume] in Blood by AutomatedOrdered By: Gale Gonzales on 03-23-2024 Monocyte distribution width Auto (Bld) [Entitic vol] Test not performed % 0.00-20.00 [facility] Comment on above: Unable to calculate MDW because the Absolute Monocyte Count is <0.8. Partial Thromboplastin Timeo n 03-23-2024 aPTT Coag (Bld) [Time] 22.2 s Low 25.1-36.5 [facility] Comment on above: Result Comment: A he matocrit value greater than 55% may lead to inaccurate results in coagulation testing. Patients having hematocrit values >55% require a special collection tube for coagulation studies. Please contact the laboratory at [phone] for redraw instructions. PERFORMED BY: [place] [address] PATHOLOGIST CHANNELER RUNNER MARLYN MCKEON M.D. Performed By: #### C MG GARCIA PHOS, CMP #### [address] Prothrombin Time INRon 03-23 INR Coag (PPP) [Relative time] 1.0 {INR} Normal [facility] Comment on above: Result Comment: [...] - 4.5 Performed By: #### C MG RADHA PHOS, CMP #### [address] PT Coag (PPP) [Time] 11.7 s Normal 9.0-12.9 [facility] Comment on above: Result Comment: A he matocrit value greater than 55% may lead to inaccurate results in coagulation testing. Patients having hematocrit values >55% require a special collection tube for coagulation studies. Please contact the laboratory at [phone] for redraw instructions. Performed By: #### C MG RADHA PHOS, CMP #### [address] Thyrotropin [Units/volume] i n Serum or PlasmaOrdered By: Bola Garcia on 03-23-2024 TSH Qn 0.48 m[IU]/L Normal 0.45-5.33 [facility] Comment on above: Performed By: #### G LULS #### Point of Care testing , Troponin I High Sensitivityo n 03-23-2024 Troponin I High Sensitivity 3.3 pg/mL Normal 0.0-20.0 [facility] Comment on above: Result Comment: PERF ORMED BY: [place] [address] PATHOLOGIST CHANNELER RUNNER MARLYN MCKEON M.D. Performed By: #### C BC, MG, PHOS, CMP #### [facility] [address] Troponin I.cardiac [Mass/vol ume] in Serum or Plasma by Detection limit <= 0.01 ng/Ordered By: Gale Gonzales on 03-23-2024 Troponin I.cardiac DL <= 0.01 ng/mL [Mass/Vol] 3.3 pg/mL 0.0-20.0 [facility] Vit. B12/Folate Profileon Folate 13.0 ng/mL Normal >5.9 [facility] Comment on above: Result Comment: Sarah te reference range: >5.9 ng/ml The WHO technical consultation on folate and vitamin b12 deficiencies has determined that folate concentrations less than 4 ng/ml are considered deficient. Performed By: #### G LULS #### Point of Care testing , Vitamin B12 ser/plasOrdered By: Bola Garcia on 03-23-2024 Cobalamin (Vitamin B12) [Mass/Vol] 416 pg/mL Normal 180-914 [facility] Comment on above: Performed By: #### G LULS #### Point of Care testing , Vitamin D 25 Hydroxy Totalon 03-23-2024 Vitamin D 25 Hydroxy Total 21.6 ng/mL Low 30-100 [facility] Comment on above: Result Comment: KAYLEY MIN D STATUS 25(OH)VITAMIN D RANGE (ng/mL) Deficient <20 Insufficient 20 to <30 Sufficient 30 to 100 Reference: Titi MF,Kalee NC, Brett BROOKS, et al. Evaluation,treatment, and prevention of vitamin D deficiency; an Endocrine Society clinical practice guideline. JCEM. 2010; 96(7):1911-30. PERFORMED BY: [facility] [address] [place] [address] PATHOLOGIST CHANNELER RUNNER MARLYN MCKEON M.D. Performed By: #### G LULS #### Point of Care testing , Vitamin D+Metabolites [Mass/ volume] in Serum or PlasmaOrdered By: Bola Garcia on 03-23-2024 Vitamin D+Metabolites [Mass/Vol] 21.6 ng/mL Low 30-100 [facility] Comment on above: VITAMIN D STATUS 25( [place])VITAMIN D RANGE (ng/mL) Deficient <20 Insufficient 20 to <30Sufficient 30 to 100Reference: Titi MF,Kalee NC, Brett BROOKS, et al. Evaluation,treatment, and prevention of vitamin D deficiency; an Endocrine Society clinical practice guideline. JCEM. 2010; 96(7):1911-30. XR chest 2V*on 03-23-2024 XR chest 2V* [facility] [place] [address] [place] [address] XRay Report Signed Patient: Bhumika Umana JR MR#: [id number] : 1975 Acct:[id number] Age/Sex: 48 / M ADM Date: 03/23/24 Loc: Room: [address] [place] [address] Type: ADM IN Attending Dr: Elder Iyer [...] Gonzales Jr., D.O.03/23/2024 9:33 AM Dictation Location: [place] [address] Transcribed By: [facility] 03/23/24 0933 Dictated By: Rene Gonzales Jr, DO 03/23/24 0933 Signed By: 03/23/24 0933 Normal [facility] XR ELBOW RT MIN 3 [...] JAKOB MCGHEE Date: 2022-04-23 12:40 Normal [facility] CBC AUTO DIFFon 01-11-2022 BASO # 0.0 103/ul Normal 0.0-0.1 [facility] Comment on above: Performed By: #### C BC #### [facility] [address] [place] [address] Dr. Sera Quach Basophils/100 WBC (Bld) 0.4 % Normal 0.2-2.0 [facility] Comment on above: Performed By: #### C BC #### [facility] [address] [place] [address] Dr. Sera Quach EO # 0.3 103/ul Normal 0.0-0.7 [facility] Comment on above: Performed By: #### C BC #### [facility] [address] [place] [address] Dr. Sera Quach Eosinophils/100 WBC (Bld) 2.8 % Normal 0.9-7.0 [facility] Comment on above: Performed By: #### C BC #### [facility] [address] [place] [address] Dr. Sera Quach Erythrocyte distribution width (RBC) [Ratio] 13.1 % Normal 11.0-15.0 [facility] Comment on above: Performed By: #### C BC #### [facility] [address] [place] [address] Dr. Sera Quach Hematocrit (Bld) [Volume fraction] 47.3 % Normal 42.0-54.0 [facility] Comment on above: Performed By: #### C BC #### [facility] [address] [place] [address] Dr. Sera Quach Hemoglobin (Bld) [Mass/Vol] 15.2 g/dL Normal 14.0-18.0 [facility] Comment on above: Performed By: #### C BC #### [facility] [address] [place] [address] Dr. Sera Quach IG # 0.03 10e3/ul Normal 0.00-0.03 [facility] Comment on above: Performed By: #### C BC #### [facility] [address] [place] [address] Dr. Sera Quach IG % 0.3 % Normal 0.0-0.5 [facility] Comment on above: Performed By: #### C BC #### [facility] [address] [place] [address] Dr. Sera Quach LYMPH # 2.3 103/ul Normal 1.2-3.8 [facility] Comment on above: Performed By: #### C BC #### [facility] [address] [place] [address] Dr. Sera Quach Lymphocytes/100 WBC (Bld) 25.5 % Normal 20.5-60.0 [facility] Comment on above: Performed By: #### C BC #### [facility] [address] [place] [address] Dr. Sera Quach MANUAL DIFF REQ NO Normal [facility] Comment on above: Performed By: #### C BC #### [facility] [address] [place] [address] Dr. Sera Quach MCH (RBC) [Entitic mass] 29.2 pg Normal 25.9-34.0 [facility] Comment on above: Performed By: #### C BC #### [facility] [address] [place] [address] Dr. Sera Quach MCHC (RBC) [Mass/Vol] 32.1 g/dL Normal 29.9-35.2 [facility] Comment on above: Performed By: #### C BC #### [facility] [address] [place] [address] Dr. Sera Quach MCV (RBC) [Entitic vol] 91.0 fL Normal 80.0-94.0 [facility] Comment on above: Performed By: #### C BC #### [facility] [address] [place] [address] Dr. Sera Quach MONO # 0.7 103/ul Normal 0.3-0.8 [facility] Comment on above: Performed By: #### C BC #### [facility] [address] [place] [address] [address] Sera Quach Monocytes/100 WBC (Bld) 7.1 % Normal 1.7-12.0 [facility] Comment on above: Performed By: #### C BC #### [facility] [address] [place] [address] [address] Sera Quach NEUT # 5.9 103/ul Normal 1.4-6.5 [facility] Comment on above: Performed By: #### C BC #### [facility] [address] [place] [address] [address] Sera Quach Neutrophils/100 WBC (Bld) 63.9 % Normal 43.0-75.0 [facility] Comment on above: Performed By: #### C BC #### [facility] [address] [place] [address] Dr. Sera Quach Platelet mean volume (Bld) [Entitic vol] 9.3 fL Critically low 9.5-13.5 [facility] Comment on above: Performed By: #### C BC #### [facility] [address] [place] [address] Dr. Sera Quach PLT 316 103/ul Normal 150-450 [facility] Comment on above: Performed By: #### C BC #### [facility] [address] [place] [address] Dr. Sera Quach RBC 5.20 106/ul Normal 4.70-6.10 [facility] Comment on above: Performed By: #### C BC #### [facility] [address] [place] [address] Dr. Sera Quach WBC 9.2 103/ul Normal 4.0-11.0 [facility] Comment on above: Performed By: #### C BC #### [facility] [address] [place] [address] Dr. Sera Quach GLYCOHEMOGLOBIN A1Con 2021 ADA RECOMMENDATION SEE BELOW Normal [facility] Comment on above: Result Comment: ADA RECOMMENDED LIMIT 4.0 - 6.0 ADA THERAPEUTIC TARGET < 7.0 ACTION SUGGESTED > 7.0 Performed By: #### A 1C #### [facility] [address] [place] [address] Dr. Sera Quach Glucose [Mass/Vol] 209 mg/dL Normal [facility] Comment on above: Performed By: #### A 1C #### [facility] [address] [place] [address] Dr. Sera Quach HbA1c (Bld) [Mass fraction] 8.9 % Critically high 4.5-6.2 [facility] Comment on above: Performed By: #### A 1C #### [facility] [address] [place] [address] Dr. Sera Quach LIPID PROFILEon 01-11-2022 CHOL-HDL RATIO NORM SEE BELOW Normal [facility] Comment on above: Result Comment: 3.3 - 4.4 LOW RISK 4.4 - 7.1 AVERAGE RISK 7.1 - 11.0 MODERATE RISK >11.0 HIGH RISK Performed By: #### C MP, LIPID #### [facility] [address] [place] [address] Dr. Sera Quach Cholesterol [Mass/Vol] 154 mg/dL Normal <=200 [facility] Comment on above: Performed By: #### C MP, LIPID #### [facility] [address] [place] [address] Dr. Sera Quach Cholesterol in HDL [Mass/Vol] 39 mg/dL Critically low 40-60 [facility] Comment on above: Performed By: #### C MP, LIPID #### [facility] [address] [place] [address] Dr. Sera Quach Cholesterol in LDL [Mass/Vol] 98.0 mg/dL Normal [facility] Comment on above: Performed By: #### C MP, LIPID #### [facility] [address] [place] [address] Dr. Sera Quach Cholesterol.total/Cho lesterol in HDL [Mass ratio] 3.9 {ratio} Normal [facility] Comment on above: Performed By: #### C MP, LIPID #### [facility] [address] [place] [address] [address] Sera Quach HDL NORMAL > or = 60 mg/dl - LO W CARDIOVASCULAR RISK <40 mg/dl - HIGH CARDIOVASCULAR RISK Normal [facility] Comment on above: Performed By: #### C MP, LIPID #### [facility] [address] [place] [address] [address] Sera Quach LDL CALC NORMAL SEE BELOW Normal [facility] Comment on above: Result Comment: <100 mg/dl OPTIMAL 100 - 129 mg/dl NEAR OR ABOVE OPTIMAL 130 - 159 mg/dl BORDERLINE HIGH 160 - 189 mg/dl HIGH >190 mg/dl VERY HIGH Performed By: #### C MP, LIPID #### [facility] [address] [place] [address] [address] Sera Quach Triglyceride [Mass/Vol] 85 mg/dL Normal <=150 [facility] Comment on above: Performed By: #### C MP, LIPID #### [facility] [address] [place] [address] Dr. Sera Quach VLDL CALC 17.0 mg/dL Normal [facility] Comment on above: Performed By: #### C MP, LIPID #### [facility] [address] [place] [address] Dr. Sera Quach MICROALBUMIN, RAND URon 12-26 mALB 1.3 mg/L Normal <=30.0 [facility] Comment on above: Performed By: #### M ALBR #### [facility] [address] [place] [address] Dr. Sera Quach PROF 14(COMP METB)on 022 Albumin [Mass/Vol] 3.9 g/dL Normal 3.4-5.0 [facility] Comment on above: Performed By: #### C MP, LIPID #### [facility] [address] [place] [address] Dr. Sera Quach Albumin/Globulin [Mass ratio] 1.1 {ratio} Normal [facility] Comment on above: Performed By: #### C MP, LIPID #### [facility] [address] [place] [address] Dr. Sera Quach ALP [Catalytic activity/Vol] 76 U/L Normal 46-116 [facility] Comment on above: Performed By: #### C MP, LIPID #### [facility] [address] [place] [address] Dr. Sera Quach ALT [Catalytic activity/Vol] 64 U/L Critically high 16-63 [facility] Comment on above: Performed By: #### C MP, LIPID #### [facility] [address] [address] [address] Sera Quach Anion gap [Moles/Vol] 12.7 mmol/L Normal [facility] Comment on above: Performed By: #### C MP, LIPID #### [facility] [address] [place] [address] Dr. Sera Quach AST [Catalytic activity/Vol] 37 U/L Normal 15-37 [facility] Comment on above: Performed By: #### C MP, LIPID #### [facility] [address] [place] [address] Dr. Sera Quach Bilirubin [Mass/Vol] 0.6 mg/dL Normal 0.2-1.0 [facility] Comment on above: Performed By: #### C MP, LIPID #### [facility] [address] [place] [address] Dr. Sera Quach Calcium [Mass/Vol] 9.0 mg/dL Normal 8.5-10.1 [facility] Comment on above: Performed By: #### C MP, LIPID #### [facility] [address] [place] [address] Dr. Sera Quach Chloride [Moles/Vol] 101 mmol/L Normal 98-107 [facility] Comment on above: Performed By: #### C MP, LIPID #### [facility] [address] [place] [address] Dr. Sera Quach CO2 [Moles/Vol] 27.6 mmol/L Normal 21.0-32.0 [facility] Comment on above: Performed By: #### C MP, LIPID #### [facility] [address] [place] [address] Dr. Sera Quach Creatinine [Mass/Vol] 0.75 mg/dL Normal 0.70-1.30 [facility] Comment on above: Performed By: #### C MP, LIPID #### [facility] [address] [address] [address] Sera Quach EGFR-AF [place] >60 Normal >=60 [facility] Comment on above: Performed By: #### C MP, LIPID #### [facility] [address] [address] [address] Sera Quach EGFR-NON AF [place] >60 Normal >=60 [facility] Comment on above: Performed By: #### C MP, LIPID #### [facility] [address] [address] [address] Sera Quach Globulin (S) [Mass/Vol] 3.6 g/dL Normal [facility] Comment on above: Performed By: #### C MP, LIPID #### [facility] [address] [place] [address] Dr. Sera Quach Glucose [Mass/Vol] 184 mg/dL Critically high 74-106 [facility] Comment on above: Performed By: #### C MP, LIPID #### [facility] [address] [address] [address] Sera Quach Potassium [Moles/Vol] 4.3 mmol/L Normal 3.5-5.1 [facility] Comment on above: Performed By: #### C MP, LIPID #### [facility] [address] [place] [address] Dr. Sera Quach Protein [Mass/Vol] 7.5 g/dL Normal 6.4-8.2 [facility] Comment on above: Performed By: #### C MP, LIPID #### [facility] [address] [address] [address] Sera Quach Sodium [Moles/Vol] 137 mmol/L Normal 136-145 [facility] Comment on above: Performed By: #### C MP, LIPID #### [facility] [address] [address] [address] Sera Quach Urea nitrogen [Mass/Vol] 12.0 mg/dL Normal 7.0-18.0 [facility] Comment on above: Performed By: #### C MP, LIPID #### [facility] [address] [address] [address] Sera Quach Urea nitrogen/Creatinine [Mass ratio] 16.0 mg/mg Normal [facility] Comment on above: Performed By: #### C MP, LIPID #### [facility] [address] [address] [address] Sera Quach UA RANDOM W/MICROSCOPICon BACTERIA NONE SEEN Normal NONE SEEN [facility] Comment on above: Performed By: #### U AMIC #### [facility] [address] [place] [address] Dr. Sera Quach Bilirubin Ql (U) Negative Normal NEGATIVE [facility] Comment on above: Performed By: #### U AMIC #### [facility] [address] [place] [address] Dr. Sera Quach CAST NONE SEEN Normal NONE SEEN [facility] Comment on above: Performed By: #### U AMIC #### [facility] [address] [place] [address] Dr. Sera Quach Clarity (U) CLOUDY Abnormal CLEAR [facility] Comment on above: Performed By: #### U AMIC #### [facility] [address] [place] [address] Dr. Sera Quach Color (U) YELLOW Normal YELLOW [facility] Comment on above: Performed By: #### U AMIC #### [facility] [address] [address] [address] Sera Quach Crystals LM Nom (Urine sed) SEEN Abnormal NONE SEEN [facility] Comment on above: Performed By: #### U AMIC #### [facility] [address] [place] [address] Dr. Sera Quach Epithelial cells LM Ql (Urine sed) RARE Normal NONE SEEN /RARE [facility] Comment on above: Performed By: #### U AMIC #### [facility] [address] [place] [address] Dr. Sera Quach Glucose Ql (U) Negative Normal NEGATIVE [facility] Comment on above: Performed By: #### U AMIC #### [facility] [address] [address] [address] Sera Quach Hemoglobin Ql (U) Negative Normal NEGATIVE [facility] Comment on above: Performed By: #### U AMIC #### [facility] [address] [address] [address] Sera Quach Ketones Ql (U) Negative Normal NEGATIVE [facility] Comment on above: Performed By: #### U AMIC #### [facility] [address] [address] [address] Sera Quach LEUKOCYTES Negative Normal NEGATIVE [facility] Comment on above: Performed By: #### U AMIC #### [facility] [address] [address] [address] Sera Quach MUCOUS NONE SEEN Normal NONE SEEN [facility] Comment on above: Performed By: #### U AMIC #### [facility] [address] [address] [address] Sera Quach Nitrite Ql (U) Negative Normal NEGATIVE [facility] Comment on above: Performed By: #### U AMIC #### [facility] [address] [address] [address] Sera Quach pH (U) 5.5 [pH] Normal 5-9 [facility] Comment on above: Performed By: #### U AMIC #### [facility] [address] [address] [address] Sera Quach RBC NONE SEEN Abnormal 0-2 [facility] Comment on above: Performed By: #### U AMIC #### [facility] [address] [place] [address] Dr. Sera Quach SPEC GRAVITY 1.025 Normal 1.005-<=1.02 5 [facility] Comment on above: Performed By: #### U AMIC #### [facility] [address] [place] [address] Dr. Sera Quach UA PROTEIN Negative Normal NEGATIVE/ TRACE [facility] Comment on above: Performed By: #### U AMIC #### [facility] [address] [address] [address] Sera Quach Urobilinogen Qn (U) 1.0 {Jessika'U}/dL Normal 0.2 - 1. 0 [facility] Comment on above: Performed By: #### U AMIC #### [facility] [address] [address] [address] Sera Quach WBC 0-2 Abnormal NONE SEEN [facility] Comment on above: Performed By: #### U AMIC #### [facility] [address] [address] [address] Sera Quach GLYCOHEMOGLOBIN A1Con 2020 ADA RECOMMENDATION ADA THERAPEUTIC TARG ET 6.0 - 7.0 ACTION SUGGESTED > 7.0 Normal [facility] Comment on above: Performed By: #### A 1C #### [facility] [address] [place] [address] Dania Ev Glucose [Mass/Vol] 174 mg/dL Normal [facility] Comment on above: Performed By: #### A 1C #### [facility] [address] [address] Dania Ev HbA1c (Bld) [Mass fraction] 7.7 % Critically high <=6.0 [facility] Comment on above: Performed By: #### A 1C #### [facility] [address] [address] Dania Ev PROF CHEM 8 (BAS METB)on Anion gap [Moles/Vol] 9.0 mmol/L Normal [facility] Comment on above: Performed By: #### B MP #### [facility] [address] [id number] Dania Ev Calcium [Mass/Vol] 8.8 mg/dL Normal 8.4-10.2 [facility] Comment on above: Performed By: #### B MP #### [facility] [address] [id number] Dania Ev Chloride [Moles/Vol] 102 mmol/L Normal 98-107 [facility] Comment on above: Performed By: #### B MP #### [facility] [address] [place], [place] [address] Dania Ev CO2 [Moles/Vol] 29.1 mmol/L Normal 22.0-30.0 [facility] Comment on above: Performed By: #### B MP #### [facility] [address] [phone] Dania Ev Creatinine [Mass/Vol] 0.73 mg/dL Normal 0.66-1.25 [facility] Comment on above: Performed By: #### B MP #### [facility] [address] [place], [place] [address] Dania Ev EGFR-AF [place] >60 Normal >=60 [facility] Comment on above: Performed By: #### B MP #### [facility] [address] [phone] Dania Ev EGFR-NON AF [place] >60 Normal >=60 [facility] Comment on above: Performed By: #### B MP #### [facility] [address] [phone] Dania Ve Glucose [Mass/Vol] 141 mg/dL Critically high 74-106 [facility] Comment on above: Performed By: #### B MP #### [facility] [address] [phone] Dania Ev Potassium [Moles/Vol] 4.1 mmol/L Normal 3.4-5.0 [facility] Comment on above: Performed By: #### B MP #### [facility] [address] [phone] Dania Ev Sodium [Moles/Vol] 136 mmol/L Critically low 137-145 [facility] Comment on above: Performed By: #### B MP #### [facility] [address] [place], [place] [id number] Dania Ev Urea nitrogen [Mass/Vol] 9.0 mg/dL Normal 9.0-20.0 [facility] Comment on above: Performed By: #### B MP #### [facility] [address] [phone] Dania Ev Urea nitrogen/Creatinine [Mass ratio] 12.3 mg/mg Normal [facility] Comment on above: Performed By: #### B MP #### [facility] [address] [address] Dania Carreno Vital Signs Date Time Vital Sign Value Performing Clinician Facility 07-22-2024 18:34-0500 Body height 190.5 cm Cecy Hernandez INFORMATICS SPECIALIST Work Phone: [facility] 07-22-2024 18:34-0500 Body mass index (BMI) [Ratio] 39.47 kg/m2 Cecyap Caballeroz INFORMATICS SPECIALIST Work Phone: [facility] 07-22-2024 18:34-0500 Body temperature 98.01 [degF] Cecy Caballeroz INFORMATICS SPECIALIST Work Phone: [facility] 07-22-2024 18:34-0500 Body weight 143.25 kg Cecy Caballeroz INFORMATICS SPECIALIST Work Phone: [facility] 07-22-2024 18:34-0500 Diastolic blood pressure 86 mm[Hg] Cecy Hernandez INFORMATICS SPECIALIST Work Phone: [facility] 07-22-2024 18:34-0500 Heart rate 95 /min Cecyap Caballeroz INFORMATICS SPECIALIST Work Phone: [facility] 07-22-2024 18:34-0500 SaO2% (BldA) [Mass fraction] 96 % Cecyap Gordonfroylanrodolfo INFORMATICS SPECIALIST Work Phone: [facility] 07-22-2024 18:34-0500 Systolic blood pressure 120 mm[Hg] Cecy Caballerorodolfo INFORMATICS SPECIALIST Work Phone: [facility] 07-10-2024 09:46-0500 Body height 190.5 cm Darek Valdovinos MD Work Phone: [facility] 07-10-2024 09:46-0500 Body mass index (BMI) [Ratio] 39.9 kg/m2 Darek Valdovinos MD Work Phone: [facility] 07-10-2024 09:46-0500 Body weight 144.8 kg Darek Valdovinos MD Work Phone: [facility] 07-10-2024 09:46-0500 Diastolic blood pressure 79 mm[Hg] Darek Valdovinos MD Work Phone: [facility] 07-10-2024 09:46-0500 Heart rate 78 /min Darek Valdovinos MD Work Phone: [facility] 07-10-2024 09:46-0500 Systolic blood pressure 139 mm[Hg] Darek Valdovinos MD Work Phone: [facility] 06-22-2024 19:45-0400 Body height 190.5 cm Hector Napoles MD Work Phone: [facility] 06-22-2024 19:45-0400 Body mass index (BMI) [Ratio] 40.62 kg/m2 Hector Napoles MD Work Phone: [facility] 06-22-2024 19:45-0400 Body weight 147.42 kg Hector Napoles MD Work Phone: [facility] 06-22-2024 19:44-0400 Body temperature 99.1 [degF] Hector Napoles MD Work Phone: [facility] 06-22-2024 19:44-0400 Diastolic blood pressure 77 mm[Hg] Hector Napoles MD Work Phone: [facility] 06-22-2024 19:44-0400 Heart rate 98 /min Hector Napoles MD Work Phone: [facility] 06-22-2024 19:44-0400 Respiratory rate 16 /min Hector Napoles MD Work Phone: [facility] 06-22-2024 19:44-0400 SaO2% (BldA) [Mass fraction] 98 % Hector Napoles MD Work Phone: [facility] 06-22-2024 19:44-0400 Systolic blood pressure 167 mm[Hg] Hector Napoles MD Work Phone: [facility] 06-18-2024 22:15-0400 [facility] 76 [facility] 22:15-0400 [facility] rate 17 /[facility]-18-2024 22:15-0400 SaO2% (BldA) [Mass fraction] 98 % [facility] 06-18-2024 22:14-0400 Diastolic blood pressure 88 mm[Hg] [facility] 06-18-2024 22:14-0400 Systolic blood pressure 122 mm[Hg] [facility] 06-18-2024 19:22-0400 Body height 190.5 cm [facility] Crit[facility] 06-18-2024 19:22-0400 Body mass index (BMI) [Ratio] 40.62 kg/m2 [facility] 06-18-2024 19:22-0400 Body weight 147.42 kg [facility] 06-18-2024 19:21-0400 Body temperature 98.4 [degF] [facility] 06-12-2024 13:14-0400 Body weight 148.33 kg Lula Cota MD Work Phone: [facility] 06-12-2024 13:14-0400 Diastolic blood pressure 78 mm[Hg] Lula Cota MD Work Phone: [facility] 06-12-2024 13:14-0400 Respiratory rate 18 /min Lula Cota MD Work Phone: [facility] 06-12-2024 13:14-0400 Systolic blood pressure 122 mm[Hg] Lula Cota MD Work Phone: [facility] 03-30-2024 12:00-0400 Body temperature 98 [degF] Cecy Hernandez Work Phone: [facility] 03-30-2024 12:00-0400 Diastolic blood pressure 88 mm[Hg] Cecy Hernandez Work Phone: [facility] 03-30-2024 12:00-0400 Heart rate 80 /min Cecy Aichholz Work Phone: [facility] 03-30-2024 12:00-0400 Respiratory rate 19 /min Cecy Aichholz Work Phone: [facility] 03-30-2024 12:00-0400 SaO2% (BldA) [Mass fraction] 95 % Cecy Aichholz Work Phone: [facility] 03-30-2024 12:00-0400 Systolic blood pressure 140 mm[Hg] Cecy Aichholz Work Phone: [facility] 03-30-2024 02:25-0400 Body height 190.5 cm Cecy Aichholz Work Phone: [facility] 03-30-2024 02:25-0400 Body weight 151.5 kg Cecy Aichholz Work Phone: [facility] 03-30-2024 02:03-0400 Body temperature 98.3 [degF] Cecy Aichholz Work Phone: [facility] 03-30-2024 02:03-0400 Diastolic blood pressure 73 mm[Hg] Cecy Aichholz Work Phone: [facility] 03-30-2024 02:03-0400 Heart rate 62 /min Cecy Aichholz Work Phone: [facility] 03-30-2024 02:03-0400 Respiratory rate 18 /min Cecy Aichholz Work Phone: [facility] 03-30-2024 02:03-0400 SaO2% (BldA) [Mass fraction] 96 % Cecy Aichholz Work Phone: [facility] 03-30-2024 02:03-0400 Systolic blood pressure 133 mm[Hg] Cecy Aichholz Work Phone: [facility] 03-29-2024 22:19-0400 Body height 190.5 cm Cecy Aichholz Work Phone: [facility] 03-29-2024 22:19-0400 Body weight 151.9 kg Cecy Aichholz Work Phone: [facility] 03-25-2024 16:05-0400 Diastolic blood pressure 83 mm[Hg] Cecy Aichholz Work Phone: [facility] 03-25-2024 16:05-0400 Heart rate 86 /min Cecy Aichholz Work Phone: [facility] 03-25-2024 16:05-0400 Respiratory rate 18 /min Cecy Aichholz Work Phone: [facility] 03-25-2024 16:05-0400 SaO2% (BldA) [Mass fraction] 98 % Cecy Aichholz Work Phone: [facility] 03-25-2024 16:05-0400 Systolic blood pressure 120 mm[Hg] Cecy Aichholz Work Phone: [facility] 03-25-2024 09:37-0400 Body temperature 98 [degF] Cecy Aichholz Work Phone: [facility] 03-25-2024 06:32-0400 Body weight 149.5 kg Cecy Aichholz Work Phone: [facility] 03-23-2024 03:31-0400 Body height 190.5 cm Cecy Aichholz Work Phone: [facility] 10-08-2021 13:30-0500 Body height 190.5 cm Yue Pedroza Other [employer] Other 10-08-2021 13:30-0500 Body mass index (BMI) [Ratio] 45.12 kg/m2 Yue Pedroza Other [facility] Other 10-08-2021 13:30-0500 Body temperature 96.6 [degF] Yue Pedroza Other [facility] Other 10-08-2021 13:30-0500 Body weight 163.75 kg Yue Pedroza Other [employer] Other 10-08-2021 13:30-0500 SaO2% (BldA) [Mass fraction] 98 % Yue Pedroza Other [employer] Other Encounters Encounter Date Encounter Type Care Provider Facility Start: 07-30-2024 End: 07-30-2024 Refill Cecy Hernandez INFORMATICS SPECIALIST Work Phone: [facility] Comment on above: Type 2 diabetes genet itus without complication, without long- term current use of insulin (CMS/HCC) Start: 07-22-2024 End: 07-22-2024 Office outpatient visit 25 minutes Cecy Hernandez INFORMATICS SPECIALIST Work Phone: [facility] Comment on above: Upper extremity weak ness (Primary Dx); Depression, unspecified (CMS/HCC); Type 2 diabetes mellitus without complication, without long-term current use of insulin (CMS/HCC); Essential hypertension, benign (CMS/HCC); Essential (primary) hypertension (CMS/HCC); Type 2 diabetes mellitus without complications (CMS/HCC); Obesity, Class II, BMI 35-39.9; Weakness; Rheumatoid arthritis with rheumatoid factor, unspecified (CMS/HCC); Autoimmune disease (CMS/HCC); Moderate episode of recurrent major depressive disorder (CMS/HCC) Start: 07-22-2024 End: 07-22-2024 ambulatory CECY DAVID Not Available Start: 07-22-2024 End: 07-22-2024 Bamboo flowsheet Cecy Hernandez INFORMATICS SPECIALIST Work Phone: [facility] Start: 07-22-2024 End: 07-22-2024 Bamboo flowsheet Cecy Hernandez INFORMATICS SPECIALIST Work Phone: [facility] Start: 07-11-2024 End: 07-11-2024 Social Work Marvin Maldonado [facility] PROFESSOR Primary [facility] Social Work Comment on above: Financial difficulty (Primary Dx) Start: 07-10-2024 End: 07-10-2024 Office outpatient new 45 minutes Darek Valdovinos MD Work Phone: [facility] Comment on above: Brachial plexopathy (Primary Dx); Obesity, Class II, BMI 35-39.9 Start: 07-10-2024 End: 07-10-2024 ambulatory DAREK VALDOVINOS Facility:[facility] Start: 06-27-2024 End: 06-27-2024 Refill Cecy Hernandez INFORMATICS SPECIALIST Work Phone: [facility] Comment on above: Other seasonal aller gic rhinitis Start: 06-26-2024 End: 06-26-2024 Clinisync Result Encounter Generic External Data Provider [facility] External Department Unsolicited Start: 06-26-2024 End: 06-26-2024 Clinisync Result Encounter Generic External Data Provider [facility] External [facility] Unsolicited Start: 06-25-2024 End: 06-25-2024 Clinisync Result Encounter Generic External Data Provider [facility] External [facility] Unsolicited Start: 06-25-2024 End: 06-25-2024 Clinisync Result Encounter Generic External Data Provider [facility] External Department Unsolicited Start: 06-24-2024 End: 06-26-2024 ambulatory LEANAAMMAD ABDELHALEEM DRUZE ALAMER Facility:[facility] Start: 06-24-2024 End: 06-25-2024 Clinisync Result Encounter Generic External Data Provider [facility] External Department Unsolicited Start: 06-24-2024 End: 06-25-2024 Clinisync Result Encounter Generic External Data Provider [facility] External Department Unsolicited Start: 06-22-2024 End: 06-22-2024 Emergency department patient visit Hector Napoles MD Work Phone: [facility] Start: 06-18-2024 End: 06-18-2024 Emergency department patient visit [facility] Start: 06-12-2024 End: 06-12-2024 Office outpatient visit 25 minutes Lula Cota MD Work Phone: [facility] Comment on above: Primary osteoarthrit is of both hands (Primary Dx); Myopathy; Diabetic cheirarthropathy (CMS-HCC) Start: 06-12-2024 End: 06-12-[address] [facility] Start: 06-07-2024 End: 06-07-2024 ambulatory [facility] Start: 05-29-2024 End: 05-29-2024 Refill Cecy Hernandez INFORMATICS SPECIALIST Work Phone: [facility] Comment on above: Type 2 diabetes genet itus without complication, without long- term current use of insulin (CMS/HCC); Type 2 diabetes mellitus without complications (CMS/HCC); Depression, unspecified (CMS/HCC); Other chronic pain Start: 05-28-2024 End: 05-28-2024 Clinisync Result Encounter Cecy David INFORMATICS SPECIALIST Work Phone: [facility] Unsolicited Start: 05-28-2024 End: 05-28-2024 Clinisync Result Encounter Cecy David INFORMATICS SPECIALIST Work Phone: [facility] Unsolicited Start: 05-21-2024 End: 05-21-2024 ambulatory CECY AICHHOLZ Not Available Start: 05-01-2024 End: 05-01-2024 ambulatory MARYJANE LIANG Not Available Start: 04-17-2024 End: 04-17-[address] [facility] Start: 04-04-2024 End: 04-04-2024 ambulatory CECY AICHHOLZ Not Available Start: 04-03-2024 End: 04-03-2024 ambulatory MARYJANE LIANG Not Available Start: 03-30-2024 End: 03-30-[address] Facility:[facility] Start: 03-30-2024 End: 03-30-2024 Evaluation and management of inpatient Cecy Aichholz Work Phone: [facility] Work Phone: Start: 03-30-2024 End: 03-30-2024 observation encounter Cecy Miranda Aichholz Work Phone: [facility] Work Phone: Start: 03-23-2024 End: 03-25-2024 Evaluation and management of inpatient Cecy Aichholz Work Phone: [facility] Work Phone: Start: 03-04-2024 End: 03-04-2024 ambulatory JULIET HWANG Not Available Start: 02-20-2024 End: 02-20-2024 ambulatory CECY AICHHOLZ Not Available Start: 02-13-2024 End: 02-13-2024 ambulatory TANA MARTINO Not Available Start: 02-07-2024 End: 02-07-2024 ambulatory VICKY SCRUGGS Not Available Start: 11-16-2023 End: 11-16-2023 ambulatory CECY AICHHOLZ Not Available Start: 11-12-2023 Refill Lula Cota MD Work Phone: [facility] Start: 10-11-2023 Refill Cecy Aichholz INFORMATICS SPECIALIST Work Phone: [facility] Comment on above: Type 2 diabetes genet itus without complication, without long- term current use of insulin (CMS/HCC) (Primary Dx); Type 2 diabetes mellitus without complications (CMS/HCC) Start: 08-16-2023 End: 08-16-2023 ambulatory CEYC AICHHOLZ Not Available Start: 04-23-2022 End: 04-23-2022 ambulatory DINKEY ENGINE MECHANIC CECY AICHHOLZ Facility:[facility]1 Start: 01-11-2022 End: 01-12-2022 ambulatory DINKEY ENGINE MECHANIC CECY AICHHOLZ Facility:[facility] Start: 10-08-2021 End: 10-08-2021 ambulatory Yue Pedroza Other [facility] Other Start: 10-08-2021 Office outpatient vi sit 15 minutes Yue Pedroza [facility] Start: 06-07-2021 End: 06-07-2021 ambulatory DINKEY ENGINE MECHANIC CECY HERNANDEZ Facility:[facility] Start: 05-05-2021 End: 05-06-2021 ambulatory DINKEY ENGINE MECHANIC CECY HERNANDEZ Facility:[facility] Start: 06-08-2018 End: 06-09-2018 Patient encounter procedure DEFAULT PHYSICIAN Facility:[facility] Start: 11-07-2013 End: 11-07-2013 Telephone encounter Haylee Garcia Work Phone: Rheumatology Comment on above: Appointment Cancelle d Procedures Date Procedure Procedure Detail Performing Clinician Start: 06-26-2024 [facility] CBC PNL BLD AUTO Ge neric External Data Provider Start: 06-25-2024 [facility] VIT B12 SERPL-MCNC Generic External Data Provider Start: 06-24-2024 [facility] RAVINDER BY IFA WITH REFLEX Generic External Data Provider Start: 05-28-2024 MLR HEMOGLOBIN A1C Cecy Hernandez INFORMATICS SPECIALIST Work Phone: Start: 04-23-2024 Colonoscopy Cecy quijano INFORMATICS SPECIALIST Work Phone: Start: 03-29-2024 CT of head without contrast Cecy Hernandez Work Phone: Start: 03-25-2024 CSF (PCR) Cecy quijano Work Phone: Start: 03-25-2024 Investigation of transfusion reaction Cecy David Work Phone: Start: 03-25-2024 MRI of cervical spin e with contrast Cecyap Hernandez Work Phone: Start: 03-23-2024 MRI of head Cecy Tommy quijano Work Phone: Start: 03-23-2024 Plain chest X-ray Cecy Hernandez Work Phone: Plan of Treatment Date Care Activity Detail Author Start: 04-23-2034 Screening for malign ant neoplasm of colon [facility] Start: 06-26-2027 Diabetes Screening Diabetes Screenin g [facility] Start: 02-15-2025 Urine screening for protein Diabetes: Urine Protein Screening [facility] Start: 12-23-2024 Hemoglobin A1c measurement Diabetes: Hemoglobin A1C [facility] Start: 11-26-2024 Hemoglobin A1c measurement Diabetes: Hemoglobin A1C [facility] Start: 09-12-2024 End: 06-12-2025 C-reactive protein C-reactive protein Lab Routine Primary osteoarthritis of both hands Expected: 09/12/2024 (Approximate), Expires: 06/12/2025 [facility] Comment on above: Expected: 09/12/2024 (Approximate), Expires: 06/12/2025 Start: 09-12-2024 End: 06-12-2025 CBC W Auto Differential panel - Blood CBC auto differential Lab Routine Primary osteoarthritis of both hands Expected: 09/12/2024 (Approximate), Expires: 06/12/2025 [facility] Comment on above: Expected: 09/12/2024 (Approximate), Expires: 06/12/2025 Start: 09-12-2024 End: 06-12-2025 Comprehensive metabolic 2000 panel - Serum or Plasma Comprehensive metabolic panel Lab Routine Primary osteoarthritis of both hands Expected: 09/12/2024 (Approximate), Expires: 06/12/2025 [facility] Comment on above: Expected: 09/12/2024 (Approximate), Expires: 06/12/2025 Start: 09-12-2024 End: 06-12-2025 Erythrocyte sedimentation rate Erythrocyte Sedimentation Rate (ESR) Lab Routine Primary osteoarthritis of both hands Expected: 09/12/2024 (Approximate), Expires: 06/12/2025 [facility] Work Phone: Comment on above: Expected: 09/12/2024 (Approximate), Expires: 06/12/2025 Start: 09-11-2024 End: 09-11-2024 Patient encounter procedure 09/11/2024 1:15 PM EST Office Visit [facility] [address] [phone] Lula Cota MD [address] [address] [facility] Start: 08-19-2024 End: 08-19-2024 Patient encounter procedure 08/19/2024 3:40 PM EST Office Visit [facility] [address] [place] [address] Cecy Hernandez, DARIO [address] [place] [phone] [facility] Start: 08-17-2024 Hemoglobin A1c measurement Diabetes: Hemoglobin A1C [facility] Start: 07-23-2024 End: 07-23-2024 Patient encounter procedure 07/23/2024 11:20 AM EST Office Visit [facility] [address] [facility] [address] [place] [address] Maryjane Liang PA [address] [place] [address] [facility] [address] Start: 07-22-2024 End: 07-22-2024 Patient encounter procedure 07/22/2024 6:30 PM EST Office Visit [facility] [address] [place] [address] Cecy Hernandez, INFORMATICS SPECIALIST [address] [place] [phone] Arrived [facility] Comment on above: Arrived Start: 07-18-2024 End: 07-18-2024 Patient encounter procedure 07/18/2024 2:40 PM EST Office Visit [facility] [address] [place] [phone] Cecy Hernandez, INFORMATICS SPECIALIST [address] [place] [phone] [facility] Start: 06-12-2024 End: 06-12-2025 CK Total CK Total Lab Routine Primary osteoarthritis of both hands Expected: 06/12/2024 (Approximate), Expires: 06/12/2025 [facility] Comment on above: Expected: 06/12/2024 (Approximate), Expires: 06/12/2025 Start: 06-12-2024 End: 06-12-2025 Cyanocobalamin vitamin b-12 Vitamin B12 Lab Routine Primary osteoarthritis of both hands Expected: 06/12/2024, Expires: 06/12/2025 [facility] Comment on above: Expected: 06/12/2024 , Expires: 06/12/2025 Start: 06-12-2024 End: 06-12-2025 LDH LDH Lab Routine Primary osteoarthritis of both hands Expected: 06/12/2024 (Approximate), Expires: 06/12/2025 [facility] Comment on above: Expected: 06/12/2024 (Approximate), Expires: 06/12/2025 Start: 06-12-2024 End: 06-12-2025 Thyrotropin [Units/volume] in Serum or Plasma [facility] Comment on above: Expected: 06/12/2024 , Expires: 06/12/2025 Start: 06-12-2024 End: 06-12-2025 Unlisted Lab Test Unlisted Lab Test Lab Routine Myopathy Expected: 06/12/2024, Expires: 06/12/2025 [facility] Comment on above: Expected: 06/12/2024 , Expires: 06/12/2025 Start: 06-12-2024 End: 06-12-2025 Vitamin D 25 hydroxy Vitamin D 25 hydroxy Lab Routine Primary osteoarthritis of both hands Expected: 06/12/2024, Expires: 06/12/2025 [facility] Comment on above: Expected: 06/12/2024 , Expires: 06/12/2025 Start: 04-28-2024 COVID-19 VACCINE () COVID-19 VACCINE () [facility] Start: 04-28-2024 COVID-19 Vaccine (3 - 2023-24 season) COVID-19 Vaccine ( season) [facility] Start: 04-28-2024 Covid-19 Vaccine () Covid-19 Vaccine () [facility] Start: 04-28-2024 Influenza vaccination INFLUENZA VACC INE (#1) [facility] Start: 04-04-2024 DTaP,Tdap and Td Vaccines (2 - Td or Tdap) DTaP,Tdap and Td Vaccines (2 - Td or Tdap) [facility] Start: 04-04-2024 Tetanus vaccination TETANUS [facility] Start: 04-04-2024 Urine microalbumin profile DTaP,Tdap,Td Vaccine (2 - Td or Tdap) [facility] Start: 03-30-2024 End: 03-30-2024 [facility] Start: 03-30-2024 Physical therapy procedure [facility] Start: 03-30-2024 Referral to neurologist [facility] Start: 03-30-2024 Referral to occupati onal therapist [facility] Start: 03-30-2024 [facility] Start: 03-30-2024 Hospital admission [facility] Start: 03-29-2024 CT of head without contrast CT head/brain wo con [facility] Start: 03-29-2024 CT Unspecified body region WO contrast [facility] Start: 03-25-2024 [facility] Start: 03-25-2024 Cerebrospinal fluid culture [facility] Start: 03-24-2024 [facility] Start: 03-23-2024 [facility] Start: 03-23-2024 Hospital admission [facility] Start: 03-23-2024 Referral to neurologist [facility] Start: 01-14-2024 Urine screening for protein Diabetes: Urine Protein Screening [facility] Start: 01-03-2024 End: 01-03-2024 Patient encounter procedure 01/03/2024 3:00 PM EDT Office Visit [facility] [address] [phone] Lula Cota MD [address] [address] [facility] Start: 12-27-2023 Screening for malign ant neoplasm of colon [facility] Start: 11-16-2023 End: 11-16-2023 Patient encounter procedure 11/16/2023 1:20 PM EDT Office Visit [facility] [address] [place] [address] Cecy Hernandez NP [address] [place] [address] [facility] Start: 11-03-2023 Hemoglobin A1c measurement Diabetes: Hemoglobin A1C [facility] Start: 04-28-2023 Influenza vaccination Influenza Vacc ine [facility] Start: 2022 Screening for malign ant neoplasm of colon [facility] Start: 04-28-2020 Influenza vaccination INFLUENZA (#1) [facility] Start: 2017 Lipid panel LIPID SCREENING [facility] Start: 2012 Lipid panel Lipid Screening [facility] Start: 2012 LIPID SCREEN LIPID SCREEN [facility] Start: 1996 DTaP,Tdap and Td Vaccines (1 - Tdap) DTaP,Tdap and Td Vaccines (1 - Tdap) [facility] Start: 1996 Hepatitis B vaccination HEP B VACCINE (1 of 3 - 19+ 3-dose series) [facility] Start: 1996 Hepatitis B Vaccine (1 of 3 - 19+ 3-dose series) Hepatitis B Vaccine (1 of 3 - 19+ 3-dose series) [facility] Start: 1996 Urine microalbumin profile DTAP,TDAP,TD (1 - Tdap) [facility] Start: 1995 Adult BMI Screening Adult BMI Screen ing [facility] Start: 1995 Anxiety Screening Anxiety Screening [facility] Start: 1995 Depression Screening Depression Scre ening [facility] Start: 1995 Diabetic foot examination Diabetic Foot Exam [facility] Start: 1995 HIV SCREENING HIV SCREENING [facility] Start: 1992 HIV screening HIV SCREENING DISCUSSION [facility] Start: 1989 Depression Screening Depression Scre ening [facility] Start: 1989 Tobacco Screening Tobacco Screening [facility] Start: 1987 Glaucoma screening Diabetes: R etinopathy Screening [facility] Start: 1977 Glaucoma screening Diabetic Op hthalmology Exam [facility] Start: 1977 Hepatitis C screening HEPATITI S C VIRUS SCREENING [facility] Start: 1977 Potassium [Moles/vol ume] in Serum or Plasma POTASSIUM [facility] Start: 1977 Screening for malign ant neoplasm of colon [facility] Start: 1977 Urine screening for protein Urine Microalbumin [facility] Albumin [Mass/volume ] in Cerebral spinal fluid [facility] Albumin [Mass/volume ] in Serum or Plasma [facility] Anion gap measurement [facility] Bacteria identified in Unspecified specimen by Aerobe culture [facility] Bacteria identified in Unspecified specimen by Anaerobe culture [facility] Basophils [#/volume] in Blood by Automated count [facility] Basophils/100 leukoc ytes in Blood by Automated count [facility] Borrelia burgdorferi IgG+IgM Ab [Presence] in Serum by Immunoassay [facility] C reactive protein [Mass/volume] in Serum or Plasma C-reactive protein Lab Routine Primary osteoarthritis of both hands 06/12/2024 2:11 PM EDT [facility] CBC W Auto Different ial panel - Blood CBC auto differential Lab Routine Primary osteoarthritis of both hands 06/12/2024 2:11 PM EDT [facility] Cerebrospinal fluid IgG ratio and IgG index [facility] Cobalamin (Vitamin B 12) [Mass/volume] in Serum or Plasma Vitamin B12 Lab Routine Primary osteoarthritis of both hands 06/12/2024 2:11 PM EDT [facility] Comprehensive metabo lic 2000 panel - Serum or Plasma Comprehensive metabolic panel Lab Routine Primary osteoarthritis of both hands 06/12/2024 2:11 PM EDT [facility] Creatine kinase [Enzymatic activity/volume] in Serum or Plasma CK Total Lab Routine Primary osteoarthritis of both hands 06/12/2024 2:11 [facility] End: 07-10-2025 EMG(NEURO/NI) EMG(NEURO/NI) EMG Routine Brachial plexopathy 1 Occurrences starting 07/10/2024 until 07/10/2025 [facility] Work Phone: Comment on above: 1 Occurrences starti ng 07/10/2024 until 07/10/2025 Eosinophils/100 leukocytes in Blood by Automated count [facility] Erythrocyte distribu tion width [Ratio] by Automated count [facility] Erythrocyte sedimentation rate by Photometric method Erythrocyte Sedimentation Rate (ESR) Lab Routine Primary osteoarthritis of both hands 06/12/2024 2:11 PM EDT [facility] Erythrocytes [#/volu me] in Blood [facility] Hematocrit [Volume Fraction] of Blood [facility] Hemoglobin [Mass/vol ume] in Blood [facility] IgG [Mass/volume] in Cerebral spinal fluid [facility] IgG [Mass/volume] in Serum or Plasma [facility] IgG clearance/Albumi n clearance [Ratio] in Serum and CSF [facility] IgG synthesis rate [Mass/time] in Serum and CSF by calculation [facility] Lactate dehydrogenas e [Enzymatic activity/volume] in Serum or Plasma LDH Lab Routine Primary osteoarthritis of both hands 06/12/2024 2:11 PM EDT [facility] Leukocytes [#/volume ] corrected for nucleated erythrocytes in Blood by Automated coun [facility] Leukocytes [#/volume ] in Blood [facility] Lymphocytes [#/volum e] in Blood by Automated count [facility] Lymphocytes/100 leukocytes in Blood by Automated count [facility] MCH [Entitic mass] b y Automated count [facility] MCHC [Mass/volume] b y Automated count [facility] MCV [Entitic volume] by Automated count [facility] Monocytes [#/volume] in Blood by Automated count [facility] Monocytes/100 leukoc ytes in Blood by Automated count [facility] Myoglobin [Mass/volu me] in Serum or Plasma [facility] Neutrophils [#/volum e] in Blood by Automated count [facility] Neutrophils/100 leukocytes in Blood by Automated count [facility] Nucleated erythrocyt es [Presence] in Blood by Automated count [facility] Patient Education Know your Meds [facility] Work Phone: Patient referral [facility] Work Phone: Platelet mean volume [Entitic volume] in Blood by Automated count [facility] Platelets [#/volume] in Blood [facility] Protein fractions.oligoclonal bands.intrathecal [Presence] in Serum and CSF [facility] Unlisted Lab Test Anti-HMGCR Unlisted Lab Test Anti-HMGCR Lab Routine Myopathy 06/12/2024 2:11 PM EDT [facility] Vitamin D+Metabolite s [Mass/volume] in Serum or Plasma Vitamin D 25 hydroxy Lab Routine Primary osteoarthritis of both hands 06/12/2024 2:11 PM EDT [facility] Immunizations Immunization Date Immunization Notes Care Provider [facility] 05-09-2024 influenza, seasonal, injectable, preservative free Cecy Aichholz INFORMATICS SPECIALIST Work Phone: [facility] 07-05-2023 influenza, injectabl e, quadrivalent, preservative free Cecy Aichholz INFORMATICS SPECIALIST Work Phone: [facility] 07-05-2023 influenza virus vaccine, unspecified formulation [facility] 06-06-2023 influenza virus vaccine, unspecified formulation Cecy Aichholz INFORMATICS SPECIALIST Work Phone: [facility] 06-08-2022 influenza, injectabl e, quadrivalent, preservative free Cecy Aichholz INFORMATICS SPECIALIST Work Phone: [facility] 05-12-2021 influenza, injectabl e, quadrivalent, preservative free Cecy Aichholz INFORMATICS SPECIALIST Work Phone: [facility] 04-04-2014 tetanus toxoid, redu [place] diphtheria toxoid, and acellular pertussis vaccine, adsorbed Yue Kasia Other [facility] 06-12-2013 influenza virus vaccine, unspecified formulation Haylee Garcia [facility] Payers Date Payer Category Payer Self-pay 2022 Medicaid [id number] 2022 Medicaid [id number] 2013 Medicaid [employer] MED[employer] ID [employer]VANT[employer] MEDICAID [id number] 2013-Present Medicaid [id number] 2013 Self-pay SELF PAY HSP/MED ICAL SELF PAY [id number] 2013-2015 SELF PAY Indemnity [id number] 1977 Unknown [id number] 2.16.840.1.830318.3.579.2.647 1977 Unknown [id number] 2.16.840.1.597716.3.579.2.593 1977 Unknown [id number] .16.840.1.050713.3.579.2.593 1977 Unknown [id number] 2.16.840.1.016968.3.579.2.593 1977 Unknown [id number] 2.16.840.1.086853.3.579.2.593 1977 Unknown [id number] 2.16.840.1.069988.3.579.2.1286 1977 Unknown [id number] 2.16.840.1.140316.3.579.2.1286 1977 Unknown [id number] 2.16.840.1.461847.3.579.2.1286 1977 Unknown [id number] 2.16.840.1.429419.3.579.2.1286 1977 Unknown [id number] 2.16.840.1.304821.3.579.2.1286 1977 Unknown [id number] 2.16.840.1.246998.3.579.2.6 1977 Unknown [id number] 2.16.840.1.770151.3.579.2.983 1977 Unknown [id number] 2.16.840.1.404826.3.579.2.983 1977 Unknown [id number] 2.16.840.1.943594.3.579.2.1258 1977 Unknown [id number] 2.16.840.1.635062.3.579.2.1258 1977 Unknown [id number] 2.16.840.1.322208.3.579.2.1258 1977 Unknown [id number] 2.16.840.1.956991.3.579.2.1258 1977 Unknown [id number] 2.16.840.1.451068.3.579.2.1258 1977 Unknown [id number] 2.16.840.1.930313.3.579.2.1258 1977 Unknown [id number] 2.16.840.1.440052.3.579.2.1258 1977 Unknown [id number] 2.16.840.1.012102.3.579.2.1258 1977 Unknown [id number] 2.16.840.1.258038.3.579.2.1258 1977 Unknown [id number] 2.16.840.1.012781.3.579.2.1258 1977 Unknown [id number] 2.16.840.1.478922.3.579.2.1259 1959 Unknown [id number] 2.16.840.1.401152.19 1959 Unknown [id number] Unknown Unknown [id number] 2.16.840.1.106984.3.579.2.531 Unknown [id number] 2.16.840.1.317939.3.579.2.531 Social History Date Type Detail Facility Start: 05-20-2013 End: 05-01-2024 Tobacco smoking status GAIS Former smoker [facility] Start: 05-20-2013 End: 07-10-2024 Alcohol intake Not Asked [facility] Start: 1975 Sex Assigned At Not on file [facility] Start: 08-16-2023 End: 11-15-2023 Sex Assigned At [facility] History of tobacco use Current smoker [facility] History of tobacco use Cigarette Smoker [facility] Start: 08-16-2023 End: 06-22-2024 Alcohol intake Ex-drinker (finding) [facility] Start: 08-16-2023 End: 11-15-2023 History of Social function [facility] Start: 08-16-2023 Tobacco Comment Last smoked: 5-10 years [facility] Start: 08-16-2023 Alcohol Comment caffeine 1-2 cups per day [facility] Tobacco smoking stat us [facility] Tobacco smoking consumption unknown [facility] Childcare Unknown [facility] Start: 1975 Sex Assigned At Male [facility] Start: 05-01-2024 End: 06-18-2024 Tobacco use and exposure Former smokeless tobacco user [facility] History of tobacco use Chews Tobacco [facility] Start: 05-21-2024 End: 07-22-2024 Alcoholic beverage intake Lifetime non-drinker (finding) [facility] Do you belong to any clubs or organizations such as zoroastrian groups, unions, fraternal or athletic groups, or school groups? Yes [facility] Are you now , , , , never or living with a partner? Never [facility] How often to you hav e a drink containing alcohol? Never [facility] How hard is it for y ou to pay for the very basics like food, housing, medical care, and heating Somewhat hard [facility] Start: 01-06-2016 Sex Male (finding) [facility] Medical Equipment Procedure Code Equipment Code Equipment Origin al Text Equipment Identifier Dates 1 each by Other route Daily as needed [id number] Start: 10-13-2022 1 each by Other route if needed [id number] Start: 10-13-2022 1 each by Other route Daily [id number] Start: 04-04-2024 End: 07-13-2024 Goals Date Patient Goal Desired Activity /State Functional Status Date Assessment Result Facility 03-30-2024 Functional status Patient at Baseline [facility] Work Phone: 03-25-2024 Functional status Patient at Baseline [facility] Work Phone: Mental Status Date Assessment Result Facility 03-30-2024 Cognitive function Cognitive Sta tus Patient at Baseline [facility] Work Phone: 03-25-2024 Cognitive function Cognitive Sta tus Patient at Baseline [facility] Work Phone: Clinical Notes 10-08-2021 to 07-22-2024 Cecy Hernandez NP - 07/22/2024 8:26 PM ESTCecy Hernandez NP - 07/22/2024 8:25 PM Marty Hernandez, DARIO - 07/22/2024 8:25 PM Marty Hernandez, DARIO - 07/22/2024 8:25 PM ESTPatient Instructions Note Date & Type Note Facility 07-22-2024 History of Present illness Narrative Associated Problem(s): Depression (CMS/HCC) Not currently taking any medications Associated Problem(s): Autoimmune disease (CMS/HCC) +RAVINDER level mild positive Associated Problem(s): Rheumatoid arthritis with rheumatoid factor, unspecified (CMS/HCC) Differing reports as to if does have RA or not Associated Problem(s): Weakness Read neurology notes Needs home health Associated Problem(s): Type 2 diabetes mellitus without complication, without long-term current use of insulin (CMS/HCC) Not currently checking sugar, taking meds either Associated Problem(s): Upper extremity weakness Reviewed neurology notes from [facility] Associated Problem(s): Essential hypertension, benign (CMS/HCC) Not currently taking meds States was having hypotension when given meds in hospital Pt has moved to [place] with his brother he has fallen there twice he is getting worse and weaker. Pt is unable to drive or take care of himself. The weakness is going to his legs, his hands and feet are freezing and swollen. Pt is taking otc ibu and Claritin Images from the original note were not included. Bhumika Umana is a 49 y.o. male presents with chief complaint of Diabetes HPI: Here today, not taking any of his anti hypertensive meds, diabetic meds, or anti depressants Primary complaint is continued worsening of weakness in his bilat UE. He has been hospitalized since his last visit with our office, as well as several labs, and is going to be having another EMG He is gravely concerned about the continued spiral of his level of functioning. He has recently relocated back to [facility] living with his sister, after a brief period of time living with his brother in [place]. He is unable to use his Upper extremites to care for self, and extremely difficulty with even feeding self. Denies loss of bowel and bladder function as well SUBJECTIVE: MEDICATIONS: Current Outpatient Medications Medication Instructions Allergy Relief 10 mg, Oral, Daily amitriptyline (ELAVIL) 10 mg, Nightly Aspirin Low Dose 81 mg, Daily citalopram (CELEXA) 40 mg, Oral, Daily dapagliflozin (FARXIGA) 5 mg, Oral, Every morning fluticasone (Flonase) 50 MCG/ACT nasal spray 2 sprays, Each Nostril, Daily hydroCHLOROthiazide (HYDRODIURIL) 25 mg, Daily RT Lancets (OneTouch Delica Plus [id number]) misc 1 each, Daily PRN lisinopril-hydroCHLOROthiazide 20-25 MG tablet 1 tablet, Oral, Daily lisinopril 20 mg, Daily RT meloxicam (MOBIC) 15 mg, Daily metFORMIN (GLUCOPHAGE) 1,000 mg, Oral, 2 times daily with meals pioglitazone (ACTOS) 30 mg, Oral, Every morning pregabalin (LYRICA) 75 mg, 3 times daily rOPINIRole (REQUIP) 0.25 mg, 3 times daily simvastatin (ZOCOR) 20 mg, Oral, Nightly tiZANidine (ZANAFLEX) 4 mg, Oral, Nightly PRN ALLERGIES: Allergies Allergen Reactions [place] Oil Hives Cashew Nut (Anacardium Occidentale) Skin Test Hives Cashew Nut Oil Dermatitis Other Unknown Oxytetracycline Unknown Penicillin G Unknown Penicillins Pedi-Pre Tape [place] [Wound Dressing Adhesive] Rash REVIEW OF SYMPTOMS: Review of Systems Constitutional: Positive for fatigue and unexpected weight change. Negative for activity change and appetite change. HENT: Negative for ear pain, nosebleeds, sneezing, trouble swallowing and voice change. Eyes: Negative for pain, discharge and visual disturbance. Respiratory: Negative for apnea, chest tightness and wheezing. Cardiovascular: Negative for leg swelling. Gastrointestinal: Negative for abdominal distention, blood in stool, constipation and diarrhea. Genitourinary: Negative for decreased urine volume, difficulty urinating, dysuria and hematuria. Musculoskeletal: Positive for arthralgias, gait problem, joint swelling and myalgias. Skin: Negative for color change and rash. Neurological: Positive for weakness and numbness. Negative for dizziness, tremors and seizures. Psychiatric/Behavioral: Negative for agitation, decreased concentration, hallucinations, self-injury and suicidal ideas. The patient is not nervous/anxious. Depression Hematological: Negative for adenopathy. Does not bruise/bleed easily. Endocrine: Negative for cold intolerance, heat intolerance, polydipsia and polyuria. Allergic/Immunologic: Negative for environmental allergies and food allergies. PAST MEDICAL HISTORY Past Medical History: Diagnosis Date Anxiety Cellulitis from finger splinter Chronic pain Class 3 severe obesity due to excess calories without serious comorbidity with body mass index (BMI) of 45.0 [place] 49.9 [place] [place] Depression, controlled [place] [place] Epigastric pain Hypertension [place] [place] immunosupression Non compliance w medication regimen Non-compliant patient EDDI (obstructive sleep apnea) 11/16/2023 RA (rheumatoid arthritis) [place] [place] Seasonal allergies Tonsillitis as child Type 2 diabetes mellitus without complication, without long-term current use of insulin ([facility] [place] 08/16/2023 Past Surgical History: Procedure Laterality Date ADENOIDECTOMY T&A TONSILLECTOMY T&A family history includes Cancer in his mother; Diabetes in his mother; Heart disease in his father and maternal grandfather; Hypertension in his maternal grandmother and mother; Stroke in his paternal grandmother; colon in his mother. OBJECTIVE: Visit Vitals BP 120/86 (BP Location: Left arm, Patient Position: Sitting, BP Cuff Size: Adult long) Pulse 95 Temp 98 F (Temporal) Ht 6' 3 Wt 315 lb 12.8 oz SpO2 96% BMI 39.47 kg/m Smoking Status Former BSA 2.75 m Physical Exam Vitals and nursing note reviewed. Constitutional: Appearance: Normal appearance. He is obese. He is ill-appearing. HENT: Head: Normocephalic. Right Ear: Tympanic membrane, ear canal and external ear normal. Left Ear: Tympanic membrane, ear canal and external ear normal. Nose: Nose normal. No congestion or rhinorrhea. Mouth/Throat: Mouth: Mucous membranes are moist. Pharynx: Oropharynx is clear. Eyes: General: No scleral icterus. Extraocular Movements: Extraocular movements intact. Conjunctiva/sclera: Conjunctivae normal. Neck: Vascular: No carotid bruit. Cardiovascular: Rate and Rhythm: Normal rate and regular rhythm. Pulses: Normal pulses. Heart sounds: Normal heart sounds. Pulmonary: Effort: Pulmonary effort is normal. Breath sounds: Normal breath sounds. No wheezing or rales. Abdominal: General: Bowel sounds are normal. Palpations: Abdomen is soft. Tenderness: There is no abdominal tenderness. There is no guarding. Musculoskeletal: Cervical back: Neck supple. Right lower leg: No edema. Left lower leg: No edema. Comments: Atrophy of bilat FA muscles, when attempting to raise his arms, has to use shoulders to do this No acute atrophy noted in bilat legs, balance is stable Lymphadenopathy: Cervical: No cervical adenopathy. Skin: General: Skin is warm and dry. Capillary Refill: Capillary refill takes 2 to 3 seconds. Neurological: General: No focal deficit present. Mental Status: He is alert. Psychiatric: Mood and Affect: Mood normal. Behavior: Behavior normal. Thought Content: Thought content normal. Judgment: Judgment normal. ASSESSMENT AND PLAN: Follow up in about 4 weeks (around 08/19/2024) for Recheck. Problem List Items Addressed This Visit Autoimmune disease (CMS/HCC) +RAVINDER level mild positive Relevant Orders Ambulatory referral to Home Health Depression (CMS/[facility]) Not currently taking any medications Essential hypertension, benign (CMS/HCC) Not currently taking meds States was having hypotension when given meds in hospital Type 2 diabetes mellitus without complication, without long-term current use of insulin (CMS/[facility]) Not currently checking sugar, taking meds either Rheumatoid arthritis with rheumatoid factor, unspecified (CMS/[facility]) Differing reports as to if does have RA or not Upper extremity weakness - Primary Reviewed neurology notes from [facility] Relevant Orders Ambulatory referral to Home Health Weakness Read neurology notes Needs home health Relevant Orders Ambulatory referral to Home Health Obesity, Class II, BMI 35-39.9 Other Visit Diagnoses Depression, unspecified (CMS/HCC) Essential (primary) hypertension (CMS/HCC) Type 2 diabetes mellitus without complications ([facility]) documented in this encounter [facility] 07-22-2024 Instructions Cecy Hernandez NP - 07/22/2024 6:30 PM EST Cont with neurology Order home health documented in this encounter [facility] 07-11-2024 Note HNO ID: [id number] Author: MARVIN MALDONADO LSW Service: ? Author Type: Photographer Model Type: Progress Notes Filed: 07/11/2024 12:56 Note Text: Primary Care Social Work Provider Action / FYI PCP Action None Date of Service: 07/11/2024 Patient identified by name and date of : Yes- via Telephone Referral Source: Referral Patient Outreach: Initial Mode of Outreach: Phone Call Response Time: Contact made Patient Identified Needs: Food: Resource eligibility limitations, Transportation issue to resource (food pantry, etc.) , Patient preference of meal / diet restrictions , Food pantry restrictions (hrs of operation, shelf stable foods only) , and Cultural appropriateness of meals, cultural sensitivity / language barrier Financial: Financial: Other Housing: Unable to afford housing Assessment Payor Social supports Patient functional ability Cognitive status Existing community support Living situation PCSW Action Taken Direct patient connection to resource Provide Patient Resources Education Supportive listening Is the patient ready for discharge? Yes Social Barrier resolution or patient discharge reason: Patient self-managing with resources given Narrative: Social Service order received. Chart reviewed. Call placed to patient, introduced self and explained role. Patient was agreeable to speaking with this worker. Patient reports he recently lost his home, reports he has been staying with his brother. Patient reports his sister also stated he is able to move in with her if needed. Patient reports he has been unable to work due to his health. Patient reports he applied for Social Security in the past and was denied numerous times. This worker provided information on housing assistance programs in [facility]. Provided pt with information on how to to apply for SNAP/Food Stamp benefits. Patient reports he is hoping to obtain answers regarding his health conditions so he can decide on how to move forward and determine future needs. This workers contact information was provided to patient and encouraged patient to contact this worker with any additional questions or concerns that may arise. Current SW intervention completed. Interventions: Advocacy Assessment Care transition Discharge from [facility] panel Education Empowering/Coaching Goal Setting SABINE Duran July 11, 2024 12:47 PM [facility] 07-11-2024 History of Present illness Narrative Primary Care Social Work Provider Action / FYI PCP Action None Date of Service: 07/11/2024 Patient identified by name and date of : Yes- via Telephone Referral Source: Referral Patient Outreach: Initial Mode of Outreach: Phone Call Response Time: Contact made Patient Identified Needs: Food: Resource eligibility limitations, Transportation issue to resource (food pantry, etc.) , Patient preference of meal / diet restrictions , Food pantry restrictions (hrs of operation, shelf stable foods only) , and Cultural appropriateness of meals, cultural sensitivity / language barrier Financial: Financial: Other Housing: Unable to afford housing Assessment Payor Social supports Patient functional ability Cognitive status Existing community support Living situation PCSW Action Taken Direct patient connection to resource Provide Patient Resources Education Supportive listening Is the patient ready for discharge? Yes Social Barrier resolution or patient discharge reason: Patient self-managing with resources given Narrative: Social Service order received. Chart reviewed. Call placed to patient, introduced self and explained role. Patient was agreeable to speaking with this worker. Patient reports he recently lost his home, reports he has been staying with his brother. Patient reports his sister also stated he is able to move in with her if needed. Patient reports he has been unable to work due to his health. Patient reports he applied for Social Security in the past and was denied numerous times. This worker provided information on housing assistance programs in [facility]. Provided pt with information on how to to apply for SNAP/Food Stamp benefits. Patient reports he is hoping to obtain answers regarding his health conditions so he can decide on how to move forward and determine future needs. This workers contact information was provided to patient and encouraged patient to contact this worker with any additional questions or concerns that may arise. Current SW intervention completed. Interventions: Advocacy Assessment Care transition Discharge from [facility] panel Education Empowering/Coaching Goal Setting SABINE Duran July 11, 2024 12:47 PM documented in this encounter [facility] 07-10-2024 Instructions Darek Valdovinos MD - 07/10/2024 10:54 AM EST We would like to repeat an EMG of your arms. This can be scheduled at any [facility] EMG lab. Please schedule follow-up in person with Dr. Valdovinos on August 14 To schedule Occupational Therapy: [facility]: [phone]. [facility]: [phone], Option 1 documented in this encounter [facility] 07-10-2024 Note HNO ID: [id number] Author: KEITH LEONE MD Service: ? Author Type: Physician Type: Progress Notes Filed: 07/10/2024 13:12 Note Text: [facility] New Patient Evaluation Consulting Provider: Errol Sanford [address] [facility] [id number] Chief Complaint/Issues: Bhumika Umana is a 48 year old male with hx of ?RA, T2DM, past tobacco use, obesity, seen in the [facility] for: Progressive BL UE weakness and numbness Intermittent LE weakness HPI: Patient states symptoms started in December 2023 with numbness in his fingertips BL. 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 His right hand was also weak but less so. About a month later, he noticed that his hands were more weak because he was unable to open the door. Progressively since onset, he has had a gradual spread of weakness from distal to proximal UE; he also has had progression of numbness up his arms BL. Overall, he feels his left UE is worse than his right. He has also noticed muscle twitches under the skin that are visible and that his arms are smaller than they used to be. He developed leg weakness in May. He had 2 falls where his right leg gave out. However he feels both legs are weak. He has had a few years of numbness in his toes but no clear progression. He notices his arms fatigue after repeated use. He can no longer lift his arms above his head. No bowel or bladder incontinence, no orthostatic symptoms. He has constipation which is chronic. He has improved his glycemic control over the past year. He has lost about 40lbs of weight in the past year but unclear if unintentional or not. He has had years of nightsweats. No dysphagia, no orthopnea, no diplopia. He also notes a rash in over his nose bridge as well as a scaly rash on his chest. He was evaluated at OSH in February 2024 for these symptoms with MRI brain reportedly unremarkable and MRI spine showing multilevel disk bulge but no cord signal change, edema, enhancement. CSF studies showed: TNC 3, RBC 3051, glucose 72, protein 84, no oligoclonal bands, IgG index 0.6, albumin 46, MBP 2.7, CSF copper and MMA within normal limits. Serum studies include Copper, zinc, thiamine, HIV, B12 and MMA, RAVINDER positive, A1C 6.6. (05/2024) (was 8.1 01/2023) Of note, he was diagnosed with RA in his early 20's. He was on MTX and Humiera but stopped it after he had celluliutis. He re-established with a mainstreaming facilitator locally who felt he did not have RA. 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 He smoked from age [age] years. He smoked 1/2 to one pack per day. No personal hx of cancer, his mom had colon cancer. He had a colonoscopy in the past year which was unremarkable. General Examination: BP 139/79 Pulse 78 Ht 190.5 cm (6' 3 ) Wt (!) 144.8 kg (319 lb 3.6 oz) BMI 39.90 kg/m? General: appears comfortable in no acute distress HEENT: Normocephalic/atraumatic, sclera non-icteric Lungs: unlabored respiratory effort on RA Extremities: warm and well perfused, no significant ecchymosis or edema Skin: warm, dry; no lesions Neurological: I: Deferred examination II: Intact to finger counting in all 4 quadrants III/IV/: Extraocular movements intact throughout, no nystagmus V: Facial sensation intact and equal bilaterally VII: Facial movements symmetric; no facial droop or ptosis VIII: Hearing intact to finger rub bilaterally IX, X: palate elevates symmetrically, gag not examined XI: Shoulder shrug and sternocleidomastoid strength full bilaterally XII: Tongue protrudes midline Language: normal fluency and stacey, no dysarthria, able to follow commands and name, repetition intact Motor: Inspection: Atrophy of proximal UE weakness BL, significant fasciculations of BL UE, No tremor at rest. Tone: Unremarkable throughout all four extremities. Muscle (Innervation) Right Left Deltoid (C5-6, Axillary n.) 2/5 2/5 Biceps (C5-6, Musculocutaneous n.) 2/5 2/5 Triceps (C6-8, Radial n.) 5/5 5/5 Wrist extensors (C6-8, Radial n.) 2/5 2/5 Wrist flexors (C6-7, Median/Ulnar n.) 4-/5 4-/5 Digit flexors (C7-T1) 4+/5 4+/5 Finger extensors (C8, T1) 2/5 2/5 Abductor pollicis brevis (C8, T1) 4+/5 4+/5 Hip Flexors 5/5 5/5 Hip Extensors 5/5 5/5 Hip Abductors 5/5 5/5 Hip Adductors 5/5 5/5 Knee Flexion 5/5 5/5 Knee Extension 5/5 5/5 Foot Dorsiflexion 5/5 5/5 Foot Plantarflexion 5/5 5/5 Ankle Eversion 5/5 5/5 Ankle Inversion 5/5 5/5 Sensation: Light touch: intact Dorsal Column Vibration: intact in great toe and thumb BL Proprioception: intact in Great toe and thumb BL Spinothalamic Pinprick: diminished in patchy distribution of BLE UE, length dependent loss in BL LE Reflexes: Upper Extremity Right Left Triceps 0 0 Biceps 0 0 Brachioradialis 0 0 Pectoral A (more content not included)... [facility] 07-10-2024 History of Present illness Narrative Images from the original note were not included. [facility] New Patient Evaluation Consulting Provider: Errol Sanford [address] [facility] [id number] Chief Complaint/Issues: Bhumika Umana is a 48 year old male with hx of ?RA, T2DM, past tobacco use, obesity, seen in the [facility] for: Progressive BL UE weakness and numbness Intermittent LE weakness HPI: Patient states symptoms started in December 2023 with numbness in his fingertips BL. 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 His right hand was also weak but less so. About a month later, he noticed that his hands were more weak because he was unable to open the door. Progressively since onset, he has had a gradual spread of weakness from distal to proximal UE; he also has had progression of numbness up his arms BL. Overall, he feels his left UE is worse than his right. He has also noticed muscle twitches under the skin that are visible and that his arms are smaller than they used to be. He developed leg weakness in May. He had 2 falls where his right leg gave out. However he feels both legs are weak. He has had a few years of numbness in his toes but no clear progression. He notices his arms fatigue after repeated use. He can no longer lift his arms above his head. No bowel or bladder incontinence, no orthostatic symptoms. He has constipation which is chronic. He has improved his glycemic control over the past year. He has lost about 40lbs of weight in the past year but unclear if unintentional or not. He has had years of nightsweats. No dysphagia, no orthopnea, no diplopia. He also notes a rash in over his nose bridge as well as a scaly rash on his chest. He was evaluated at OSH in February 2024 for these symptoms with MRI brain reportedly unremarkable and MRI spine showing multilevel disk bulge but no cord signal change, edema, enhancement. CSF studies showed: TNC 3, RBC 3051, glucose 72, protein 84, no oligoclonal bands, IgG index 0.6, albumin 46, MBP 2.7, CSF copper and MMA within normal limits. Serum studies include Copper, zinc, thiamine, HIV, B12 and MMA, RAVINDER positive, A1C 6.6. (05/2024) (was 8.1 01/2023) Of note, he was diagnosed with RA in his early 20's. He was on MTX and Humiera but stopped it after he had celluliutis. He re-established with a mainstreaming facilitator locally who felt he did not have RA. 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 He smoked from age [age] years. He smoked 1/2 to one pack per day. No personal hx of cancer, his mom had colon cancer. He had a colonoscopy in the past year which was unremarkable. General Examination: BP 139/79 Pulse 78 Ht 190.5 cm (6' 3 ) Wt (!) 144.8 kg (319 lb 3.6 oz) BMI 39.90 kg/m General: appears comfortable in no acute distress HEENT: Normocephalic/atraumatic, sclera non-icteric Lungs: unlabored respiratory effort on RA Extremities: warm and well perfused, no significant ecchymosis or edema Skin: warm, dry; no lesions Neurological: I: Deferred examination II: Intact to finger counting in all 4 quadrants III/IV/: Extraocular movements intact throughout, no nystagmus V: Facial sensation intact and equal bilaterally VII: Facial movements symmetric; no facial droop or ptosis VIII: Hearing intact to finger rub bilaterally IX, X: palate elevates symmetrically, gag not examined XI: Shoulder shrug and sternocleidomastoid strength full bilaterally XII: Tongue protrudes midline Language: normal fluency and stacey, no dysarthria, able to follow commands and name, repetition intact Motor: Inspection: Atrophy of proximal UE weakness BL, significant fasciculations of BL UE, No tremor at rest. Tone: Unremarkable throughout all four extremities. Muscle (Innervation) Right Left Deltoid (C5-6, Axillary n.) 2/5 2/5 Biceps (C5-6, Musculocutaneous n.) 2/5 2/5 Triceps (C6-8, Radial n.) 5/5 5/5 Wrist extensors (C6-8, Radial n.) 2/5 2/5 Wrist flexors (C6-7, Median/Ulnar n.) 4-/5 4-/5 Digit flexors (C7-T1) 4+/5 4+/5 Finger extensors (C8, T1) 2/5 2/5 Abductor pollicis brevis (C8, T1) 4+/5 4+/5 Hip Flexors 5/5 5/5 Hip Extensors 5/5 5/5 Hip Abductors 5/5 5/5 Hip Adductors 5/5 5/5 Knee Flexion 5/5 5/5 Knee Extension 5/5 5/5 Foot Dorsiflexion 5/5 5/5 Foot Plantarflexion 5/5 5/5 Ankle Eversion 5/5 5/5 Ankle Inversion 5/5 5/5 Sensation: Light touch: intact Dorsal Column Vibration: intact in great toe and thumb BL Proprioception: intact in Great toe and thumb BL Spinothalamic Pinprick: diminished in patchy distribution of BLE UE, length dependent loss in BL LE Reflexes: Upper Extremity Right Left Triceps 0 0 Biceps 0 0 Brachioradialis 0 0 Pectoral Absent Absent Xiong Absent Absent Tromner Absent Absent Lower Extremity Right Left Patellar 2+ 2+ Achilles 0 0 Cerebellar testing: Finger to Nose: finger to nose intact without dysmetria BL Heel to [place]: intact without dysmetria BL Dysdiadochokinesia absent BL Gait: normal base and stride Assessment & Plan 48 y/o M presenting with 6 months of progressive weakness and numbness of the BL UE. His symptoms and findings on exam follow a LMN pattern. Given the pattern of symptoms and presence of both motor and sensory symptoms, would localize his symptoms to the plexus. The progressive nature could raise concern for a LMN-predominant motor neuron disease such as Progressive Muscular Atrophy. However, the presence of sensory symptoms and acute onset make this unlikely. An adult-onset muscular dystropy also unlikely given sensory symptoms and normal CK. 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 This typically presents as an acute plexopathy, usually asymmetric but eventually with BL involvement followed by progressive weakness. However, would expect more pain. Other causes of brachial plexopathy should be considered, though he has had an extensive work-up that has ruled out many of them. While his previous EMG was negative, it was completed very early in his disease course and external to our health system. Therefore, we would like to repeat this. Additionally, he would benefit from OT to work on increasing strength in his UE. Plan: -EMG, brachial plexopathy protocol -Outpatient OT -Referral to [place] clinic -Social work referral for financial assistance Encounter Diagnosis ICD-10-CM 1. Brachial plexopathy G54.0 EMG(NEURO/NI) CONSULT TO OPHTHALMIC SURGEON DOCUMENT IMPROVEMENT SPECIALIST [CONSULT TO SOCIAL WORK] CONSULT TO NEUROMUSCULAR MEDIC CANCELED: CONSULT TO PHYSICAL THERAPY 2. Obesity, Class II, BMI 35-39.9 E66.812 Attending Note I evaluated the patient and personally participated in the wisdom components. I agree with the resident's findings and plan with the following revisions and/or additions: 48M, diabetic, used to be on Neris infusion (stopped when he developed infection in right hand from a splinter)for RA, later told he does not have it. He woke up 6 months ago with tingling and weakness in fingers of both hands. A month later, he had more weakness and alos involved weakness in arm elevation. He has 2 falls and some trouble standing from a seated position. He has had testing done (EMG, CSF and lab work as well as MRI of C-spine) in the past with no clear diagnosis. He is unemployed and unable to afford even parking, has been living with his brother. On examination, he has symmetric global weakness of both UEs, distal more than proximal with patchy and glove distribution of sensory impairment ot pinprick (reports front of arm much worse than back of arms). Areflexia. Stocking distribution of pinprick impairment in legs with level mid fletcher. Toes have scabs from injuries. Fasciculations in both deltoids. Picture suggestive of lower motor neuron process Signature: Keith Leone MD Date: 07/10/2024 Time: 1:12 PM No follow-ups on file. Data Review Objective Current Outpatient Medications Medication Sig metFORMIN (GLUCOPHAGE) 1,000 mg tablet Take 1,000 mg by mouth daily with breakfast. aspirin 81 mg chewable tablet Take 81 mg by mouth once daily. lisinopril-hydroCHLOROthiazide (ZESTORETIC) 20-25 mg per tablet Take 1 tablet by mouth once daily. loratadine 10 mg cap Take 10 mg by mouth once daily. meloxicam (MOBIC) 15 mg tablet Take 15 mg by mouth once daily. tiZANidine (ZANAFLEX) 4 mg tablet Take 4 mg by mouth at bedtime as needed (For muscle spasms). multivitamin (DAILY MULTIPLE) tablet Take 1 tablet by mouth once daily. No current facility-administered medications for this visit. ACTIVE PROBLEM LIST Arthralgia Rheumatoid Arthritis(714.0) Weakness Malnutrition of Mild Degree (Hcc) Obesity, Class II, Bmi 35-39.9 PAST MEDICAL HISTORY Diagnosis Date Depression Essential hypertension Former smoker Insomnia Mixed hyperlipidemia EDDI (obstructive sleep apnea) Rheumatoid arthritis (HCC) Type 2 diabetes (HCC) No past surgical history on file. Social History Tobacco Use Smoking status: Former No family history on file. Lab and Test Review: MRI Cervical Spine - Last 2 Impressions MRI CERVICAL SPINE WO/W IVCON Exam End: 06/26/2024 7:31 AM (Final result) Impression: IMPRESSION: Multilevel degenerative changes through the cervical spine as detailed above causing moderate to severe spinal canal stenosis at C3-C4 indenting the ventral aspect of spinal canal. No discrete cord signal abnormality. Anatomic Variant: None. Assume 7 cervical vertebrae with counting from the craniocervical junction. Distribution Operations Supervisor: PSCB Transcribe Date/Time: Jun 26 2024 7:33A Dictated by : SUDHIR PUENTE MD This examination was interpreted and the report reviewed and electronically signed by: BRIDGET LIND MD on Jun 26 2024 8:09AM EST Outside Data/Labs: EMG/NCS 02/13/2024 (symptom onset ~01/16/2024): Subjective Patient-Entered Data: 07/10/24 - GENERAL NEUROLOGY SCORES No data to display 03/18/2013 05/20/2013 Depression Screening PHQ-2 Score 1 2 PHQ-9 Score 7 10 No data to display No data to display No data to display Darek Valdovinos MD PGY-4 In the service of Dr. Leone documented in this encounter [facility] 06-26-2024 Note HNO ID: [id number] Author: HNOG CRUZ LSW Service: Care Management Author Type: Photographer Model Type: Care Mgt Progress Note Filed: 06/26/2024 15:44 Note Text: CARE MANAGEMENT DISCHARGE NOTE SERVICE DATE: June 26, 2024 SERVICE TIME: 3:43 PM Admission Date: 06/24/2024 LOS: 1 day Caregiver Assessment Caregiver is ready, willing and able to meet the patient's needs as recommended by the inter-professional team: No Caregiver needed Transportation Arrangements Transportation Arrangements: Car Handoff Communication: Handoff to: Primary Care Physician Primary Care Physician Name/Phone: Cecy Hernandez, DINKEY ENGINE MECHANIC [phone] Patient d/c ready to home with no skilled needs identified. Patient and bedside RN aware of plan. Brother to transport patient home via private auto this evening when he gets off of work. SIGNATURE: SABINE Weiss PATIENT NAME: Bhumika Umana DATE: June 26, 2024 TIME: 3:42 PM CONTACT #: [phone] [facility] 06-26-2024 Note HNO ID: [id number] Author: MADIHA HARDING RPh Service: Pharmacy Author Type: Pharmacist Type: Plan of Care Filed: 06/26/2024 15:41 Note Text: DISCHARGE MEDICATION REVIEW BY PHARMACY Patient Name: Bhumika Umana Account #: Data Unavailable Admission Date: 06/24/2024 Date of Contact: June 26, 2024 Time of Contact: 3:40 PM Medication list was reviewed by a Pharmacist for drug interactions or drug related problems:Yes Below is a summary of pharmacist recommendations discussed with LIP: No recommendations at this time from discharge medication list. Madiha Harding RPh Pager: [phone] 06/26/2024 3:40 PM Medication List CHANGE how you take these medications metFORMIN 1,000 mg tablet Commonly known as: GLUCOPHAGE What changed: Another medication with the same name was removed. Continue taking this medication, and follow the directions you see here. CONTINUE taking these medications aspirin 81 mg chewable tablet DAILY MULTIPLE tablet Generic drug: multivitamin lisinopril-hydroCHLOROthiazide 20-25 mg per tablet Commonly known as: ZESTORETIC loratadine 10 mg Cap meloxicam 15 mg tablet Commonly known as: MOBIC pregabalin 75 mg capsule Commonly known as: LYRICA rOPINIRole 0.25 mg tablet Commonly known as: REQUIP tiZANidine 4 mg tablet Commonly known as: ZANAFLEX STOP taking these medications chlorthalidone 25 mg tablet Commonly known as: HYGROTON citalopram 40 mg tablet Commonly known as: CeleXA Etanercept 50 mg/mL (1 mL) Commonly known as: EnbreL SureClick fluticasone 50 mcg/actuation nasal spray Commonly known as: FLONASE folic acid 1 mg tablet hydrOXYchloroQUINE 200 mg tablet Commonly known as: PlaqueniL methotrexate 2.5 mg tablet traMADol 50 mg tablet Commonly known as: ULTRAM [facility] 06-26-2024 Note HNO ID: [id number] Author: MADIHA HARDING RPh Service: Pharmacy Author Type: Pharmacist Type: Plan of Care Filed: 06/26/2024 15:40 Note Text: PHARMACY MEDICATION REVIEW Patient Name: Bhumika Umana : 1975 The following medications were updated within the STATISTICAL CLERK ADVERTISING medication list: Medications ADDED to STATISTICAL CLERK ADVERTISING medication list Aspirin 81 mg chewable tablet: Tale 1 tab PO once daily Lisinopril-hydrochlorothiazide (Zestoretic) 20-25 mg tab: Take 1 tab PO once daily Loratadine 10 mg cap: Take 1 capsule PO once daily. Meloxicam (Mobic) 15 mg tab: Take 1 tab PO once daily Metformin (Glucophage) 1,000 mg tab: Take 1 tab PO once daily with breakfast Pregabalin (Lyrica) 75 mg cap: Take 1 capsule PO once daily at bedtime Ropinirole (Requip) 0.25 mg tab: Take 1 tab PO three times daily. Tizanidine (Zanaflex) 4 mg tab: Take 1 tab PO at bedtime as needed. Medications CHANGED on STATISTICAL CLERK ADVERTISING medication list None Medications REMOVED from STATISTICAL CLERK ADVERTISING medication list None Additional comments: Discharge med rec started prior to completion of admission med rec. Because of this, some medications in the below list, will be removed at discharge as they have already be discontinued: etanercept, chlorthalidone, citalopram, fluticasone nasal, folic acid, hydroxychloroquine, metformin ER, methotrexate, tramadol. The below information represents the best possible medication history: Yes Medication history completed by: director of student financial aid: Lenin Odom Source of history: Patient: Reliability of source: Appears reliable, clearly identified: Medication name, Medication dose, Medication route, and Medication frequency Medication nonadherence identified: No barriers noted Reconciliation completed: Yes Completed by: Madiha Harding RPh All STATISTICAL CLERK ADVERTISING medications addressed by LIP- some home medications were not ordered this admission but will be continued at discharge. Since discharge summary has already been placed, will not reach out to the team to add missing medications. Patient interested in Bedside Delivery Services or using [facility] at discharge? Yes. Discharge Pharmacy Updated Preferred outpatient pharmacy: [facility] [address] [place] [address] - [address] - [phone] [facility]- [facility] [place] [address] - [address] [facility] - [phone] Allergies: Adhesive Tape (Aidee* Rash Penicillins Unknown Prior to Admission Medications Prescriptions Last Dose Informant Patient Reported? Taking? Etanercept (ENBREL SURECLICK) 50 mg/mL (0.98 mL) pnij Unknown No No Sig: Inject 50 mg subcutaneously once each week. aspirin 81 mg chewable tablet Yes Yes Sig: Take 81 mg by mouth once daily. chlorthalidone 25 mg tablet 06/23/2024 No No Sig: Take 1 tablet by mouth once daily. citalopram (CELEXA) 40 mg tablet Unknown No No Sig: Take 1 tablet by mouth once daily. fluticasone 50 mcg/actuation nasal spray Unknown Patient Yes No Sig: Use 1 [place] in each nostril daily at bedtime. folic acid 1 mg tablet Unknown No No Sig: Take 1 tablet by mouth once daily. hydroxychloroquine (PLAQUENIL) 200 mg tablet Unknown No No Sig: Take 1 tablet by mouth twice daily. lisinopril-hydroCHLOROthiazide (ZESTORETIC) 20-25 mg per tablet Yes Yes Sig: Take 1 tablet by mouth once daily. loratadine 10 mg cap Yes Yes Sig: Take 10 mg by mouth once daily. meloxicam (MOBIC) 15 mg tablet Yes Yes Sig: Take 15 mg by mouth once daily. metFORMIN (GLUCOPHAGE) 1,000 mg tablet Yes Yes Sig: Take 1,000 mg by mouth daily with breakfast. metFORMIN ER (FORTAMET) 1,000 mg 24 hr tablet 06/23/2024 Yes No Sig: Take 1,000 mg by mouth daily with breakfast. methotrexate 2.5 mg tablet Unknown No No Sig: Take 8 tablets by mouth once each week. multivitamin (DAILY MULTIPLE) tablet Unknown Yes No Sig: Take 1 tablet by mouth once daily. pregabalin (LYRICA) 75 mg capsule Yes Yes Sig: Take 75 mg by mouth daily at bedtime. rOPINIRole (REQUIP) 0.25 mg tablet Yes Yes Sig: Take 0.25 mg by mouth three times a day. tiZANidine (ZANAFLEX) 4 mg tablet Yes Yes Sig: Take 4 mg by mouth at bedtime as needed (For muscle spasms). traMADol 50 mg tablet Unknown No No Sig: Take 1 tablet by mouth twice daily as needed for Pain. Facility-Administered Medications: None Lenin Odom 06/26/2024 Madiha Harding, Kimber, [facility] Changes and additions to the details in the note are indicated by italics and strikeouts. [facility] 06-26-2024 Note HNO ID: [id number] Author: HEMANTH HOPKINS MD Service: Neurology General Author Type: Resident Type: Plan of Care Filed: 06/26/2024 12:46 Note Text: Neurology Plan of Care Patient underwent MRI C-spine, showing some canal stenosis but no clear compression or other apparent cause for his symptoms (some neuroforaminal stenosis but symmetric symptoms bilaterally affecting the entire hands is less consistent with this as a cause). Recommendations: - No further inpatient workup required, outpt f/u w/ neurology for results of initial evaluation - Remainder as per prior note Hemanth Hopkins MD Neurology, PGY-4 06/26/2024 [facility] 06-25-2024 Note HNO ID: [id number] Author: HONG CRUZ LSW Service: Care Management Author Type: Photographer Model Type: Care Mgt Initial Assessment Filed: 06/25/2024 15:42 Note Text: CARE MANAGEMENT: ASSESSMENT AND DISCHARGE PLAN SERVICE DATE: June 25, 2024 SERVICE TIME: 3:30 PM PCP: Cecy Hernandez CNP, DINKEY ENGINE MECHANIC Primary Contact: Extended Emergency Contact Information Primary Emergency Contact: Justine Umana Address: [address] [place] [address] Mobile Relation: Mother Admission Status: Observation Insurance Provider: GRANT BCBS [place]ICAID OF [place] Discharge Planning requested by: Per Department Practice Potential Transition Plans Advance Directives Current Advance Directive: None Nurse Assistant Attempted to Assist with AD Completion: Yes Current Living Arrangements and Support Lives with: Other person(s), Family members (temporarily living with brother) Type of Residence: Private Residence (House) Discharge Planning Patient Goal(s): General wellness [place] of Choice Explained: [place] of Choice Given: No Reason Not Given: No placements necessary Discharge Planning Participant(s): Patient Caregiver Assessment: Caregiver is ready, willing and able to meet the patient's needs as recommended by the inter-professional team: No Caregiver needed Transport at Discharge: Transportation Arrangements: Car Needs Prior to Discharge: Needs Prior to Discharge: To Be Determined;Other: See Comment (medical clearance) Post-Acute Discharge Plan: Per EMR, is a 48 year old male Bhumika Umana is a 48 year old male with a pmh of T2DM, HTN, RA previously on humira for 1.5 years stopped in 2019, osteoarthritis of both hands, depression, EDDI presenting today for a second opinion regarding his bilateral upper extremity weakness and numbness. Pt living at home with brother (temporarily) after recently being kicked out of home (see SW consult note for details). Patient presents with 5 months of gradually progressive numbness and weakness in his hands. 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 line appliance assembler pt for Outpatient PT with a 6 Clicks score of 24. At this time, no skilled identified. If family is unavailable to transport, T2R will be provided at discharge. SW/CM will continue to follow for transitional care needs. SIGNATURE: SABINE Weiss PATIENT NAME: Bhumika Umana DATE: June 25, 2024 TIME: 3:30 PM CONTACT #: [phone] [facility] 06-25-2024 Note HNO ID: [id number] Author: [place] ? Service: Pharmacy Author Type: Watershed Tender Type: Plan of Care Filed: 06/25/2024 14:20 Note Text: Insurance investigation completed Patient has active prescription insurance: Yes - Patient's insurance is in-network with [facility] Insurance loaded into [place]: Yes Test claim was completed to verify insurance is active: Successful Any questions, please reach out to your medication access representative. [facility] 06-25-2024 Note HNO ID: [id number] Author: HEMANTH HOPKINS MD Service: Neurology General Author Type: Resident Type: Plan of Care Filed: 06/25/2024 12:29 Note Text: Neurology Plan of Care Contacted by primary team for this patient presenting with 5 months of gradually progressive numbness and weakness of the bilateral hands. Has been receiving workup with a local neurologist for this including LP, MRI Brain and C-spine, EMG, and lab eval. Thus far this has largely been unrevealing. Some stenosis seen on MRI c-spine (C2-3 AND 3-4, without clear compression), elevated protein on CSF though hemorrhagic tap which confounds the CSF results somewhat. EMG/NCS below. B12 low-normal 228. Pt being seen by PT/OT, line appliance assembler for outpt PT. EMG/NCS 02/13/2024 (symptom onset ~01/16/2024): The patient's symptoms certainly merit further workup, but given their gradual progression without acute changes it is appropriate to perform this as an outpatient. However, prior to discharge can draw initial neuropathy/myelopathy labs so that the most common or most actionable causes are ruled out prior to clinic visit. Recommendations: - Outpatient [facility] general neurology follow-up - Repeat MRI c-spine W/WO as outpatient to monitor for progression of stenosis, though also reasonable to defer this until general neurology can assess as outpt - Neuropathy/myelopathy labs prior to outpt f/u: B12, MMA, folate, Cu, Zinc, SPEP, ELIN, B1, B6, Syphilis, HIV (pended) - PT/OT - Fall precautions while admitted - If there is concern for cord compression, recommend spine team evaluation - No contraindications to discharge from neurology standpoint Hemanth Hopkins MD Neurology, PGY-4 06/25/2024 [facility] 06-22-2024 Physician Emergency department Note Emergency Department Report [facility] EMERGENCY DEPARTMENT Service Date:.06/22/24 PCP: Cecy Hernandez Chief Complaint: Chief Complaint Patient presents with Numbness Pt to ED with c/o numbness to bilat hands. Pt states It started in December with my fingertips, and its slowly moved up my arms, and I'm having weakness . Pt has seen Neuro, and was told its not a stroke (per MRI in March . Pt has had several falls, and was seen @ this ED for falls. Pt is having pain to his right knee. Denies LOC from fall. Rates pain to right knee 2/10 HPI Bhumika Umana is a 48 y.o. male presents to the ED today due to generalized weakness/numbness. Weakness and numbness. Patient was did not having issues for the last 6 months. He has had an MRI EMG nerve conduction studies they have not been able to localize a etiology for his symptoms. He has seen Neurology and also rheumatology. He states he has had some falls due the balance and numbness issues. He he was looking for another opinion or further testing to look for a cause of his symptoms. Review of Systems: Review of Systems Constitutional: Negative for fever and unexpected weight change. Past Medical History: Past Medical History: Diagnosis Date Diabetes mellitus Essential hypertension, benign Rheumatoid arthritis Past Surgical History: Past Surgical History: Procedure Laterality Date TONSILLECTOMY Allergies: Allergies Allergen Reactions Penicillins Medications: Patient's Medications New Prescriptions No medications on file Previous Medications CEPHALEXIN 500 MG CAPSULE Take 1 capsule by mouth 2 times daily for 7 days. HYDROCHLOROTHIAZIDE 25 MG TABLET Take 1 tablet by mouth daily. LISINOPRIL 20 MG TABLET Take 1 tablet by mouth daily. LORATADINE 10 MG TABLET Take 1 tablet by mouth daily. MELOXICAM 15 MG TAB DISPERSIBLE Take 1 tablet by mouth daily. METFORMIN 500 MG TABLET Take 2 tablets by mouth 2 times daily with meals. PREGABALIN 75 MG CAPSULE Take 1 capsule by mouth 3 times daily. ROPINIROLE 0.25 MG TABLET Take 1 tablet by mouth 3 times daily. TIZANIDINE 2 MG TABLET Take 2 tablets by mouth 3 times daily. Modified Medications No medications on file Discontinued Medications No medications on file Family History: History reviewed. No pertinent family history. Social History: Social History Socioeconomic History Marital status: Single Spouse name: Not on file Number of children: Not on file Years of education: Not on file Highest education level: Not on file Occupational History Not on file Tobacco Use Smoking status: Former Types: Cigarettes Smokeless tobacco: Former Vaping Use Vaping status: Never Used Substance and Sexual Activity Alcohol use: Not Currently Drug use: Never Sexual activity: Not on file Other Topics Concern Not on file Social History Narrative Not on file Social Determinants of Health Financial Resource Strain: Medium Risk (11/15/2023) Received from [facility] Overall Financial Resource Strain (CARDIA) Difficulty of Paying Living Expenses: Somewhat hard Food Insecurity: Patient Declined (11/15/2023) Received from [facility] Hunger Vital Sign Worried About Running Out of Food in the Last Year: Patient declined Ran Out of Food in the Last Year: Patient declined Transportation Needs: No Transportation Needs (11/15/2023) Received from [facility] PRAPARE - Transportation Lack of Transportation (Medical): No Lack of Transportation (Non-Medical): No Physical Activity: Patient Declined (11/15/2023) Received from [facility] Exercise Vital Sign Days of Exercise per Week: Patient declined Minutes of Exercise per Session: Patient declined Stress: Patient Declined (11/15/2023) Received from [facility] [employer] [facility] - Occupational Stress Questionnaire Feeling of Stress : Patient declined Social Connections: Moderately Integrated (11/15/2023) Received from [facility] Social Connection and Isolation Panel [NHANES] Frequency of Communication with Friends and Family: Three times a week Frequency of Social Gatherings with Friends and Family: Twice a week Attends Yazidism Services: More than 4 times per year Active Member of Clubs or Organizations: Yes Attends Club or Organization Meetings: More than 4 times per year Marital Status: Never Intimate Partner Violence: Not on file Housing Stability: Not on file Physical Exam: Physical Exam Vitals and nursing note reviewed. Constitutional: General: He is not in acute distress. Appearance: Normal appearance. He is not toxic-appearing or diaphoretic. HENT: Head: Normocephalic and atraumatic. Eyes: Conjunctiva/sclera: Conjunctivae normal. Cardiovascular: Rate and Rhythm: Normal rate. Pulmonary: Effort: Pulmonary effort is normal. Neurological: General: No focal deficit present. Mental Status: He is alert and oriented to person, place, and time. Gait: Gait normal. Psychiatric: Mood and Affect: Mood normal. Behavior: Behavior normal. Thought Content: Thought content normal. Judgment: Judgment normal. Vital Signs During ED Visit Patient Vitals for the past 24 hrs: BP Temp Temp src Pulse Resp SpO2 Height Weight 06/22/241944 -- -- -- -- -- -- 1.905 m (6' 3 ) (!) 147.4 kg (325 lb) 06/22/241943 167/77 99.1 F (37.3 C) Oral 98 16 98 % -- -- Orders/Results: Orders Placed This Encounter AMB REFERRAL TO NEUROLOGY No results found for this or any previous visit. Radiographic Imaging No orders to display Procedures: Procedures Moderate Sedation Procedure: No ED Summary/MDM Medical Decision Making Risk Risk Details: I discussed with the patient has been on long ongoing issue he was seen Neurology Rheumatology has had EMG nerve conduction studies and MRI. That has nothing I can do his 1st further testing in the ER this evening. I recommended outpatient follow up with Neurology for continued testing. Clinical Impression: 1. Generalized weakness 2. Paresthesia of skin No follow-ups on file. New Prescriptions No medications on file Discontinued Medications No medications on file An After Visit Summary was printed and given to the patient with above information. . . Hector Napoles MD 06/22/242006 [facility] 06-22-2024 Emergency department Note Emergency Department Report [facility] EMERGENCY DEPARTMENT Service Date:.06/22/24 PCP: Cecy David Chief Complaint: Chief Complaint Patient presents with Numbness Pt to ED with c/o numbness to bilat hands. Pt states It started in December with my fingertips, and its slowly moved up my arms, and I'm having weakness . Pt has seen Neuro, and was told its not a stroke (per MRI in March . Pt has had several falls, and was seen @ this ED for falls. Pt is having pain to his right knee. Denies LOC from fall. Rates pain to right knee 2/10 HPI Bhumika Umana is a 48 y.o. male presents to the ED today due to generalized weakness/numbness. Weakness and numbness. Patient was did not having issues for the last 6 months. He has had an MRI EMG nerve conduction studies they have not been able to localize a etiology for his symptoms. He has seen Neurology and also rheumatology. He states he has had some falls due the balance and numbness issues. He he was looking for another opinion or further testing to look for a cause of his symptoms. Review of Systems: Review of Systems Constitutional: Negative for fever and unexpected weight change. Past Medical History: Past Medical History: Diagnosis Date Diabetes mellitus Essential hypertension, benign Rheumatoid arthritis Past Surgical History: Past Surgical History: Procedure Laterality Date TONSILLECTOMY Allergies: Allergies Allergen Reactions Penicillins Medications: Patient's Medications New Prescriptions No medications on file Previous Medications CEPHALEXIN 500 MG CAPSULE Take 1 capsule by mouth 2 times daily for 7 days. HYDROCHLOROTHIAZIDE 25 MG TABLET Take 1 tablet by mouth daily. LISINOPRIL 20 MG TABLET Take 1 tablet by mouth daily. LORATADINE 10 MG TABLET Take 1 tablet by mouth daily. MELOXICAM 15 MG TAB DISPERSIBLE Take 1 tablet by mouth daily. METFORMIN 500 MG TABLET Take 2 tablets by mouth 2 times daily with meals. PREGABALIN 75 MG CAPSULE Take 1 capsule by mouth 3 times daily. ROPINIROLE 0.25 MG TABLET Take 1 tablet by mouth 3 times daily. TIZANIDINE 2 MG TABLET Take 2 tablets by mouth 3 times daily. Modified Medications No medications on file Discontinued Medications No medications on file Family History: History reviewed. No pertinent family history. Social History: Social History Socioeconomic History Marital status: Single Spouse name: Not on file Number of children: Not on file Years of education: Not on file Highest education level: Not on file Occupational History Not on file Tobacco Use Smoking status: Former Types: Cigarettes Smokeless tobacco: Former Vaping Use Vaping status: Never Used Substance and Sexual Activity Alcohol use: Not Currently Drug use: Never Sexual activity: Not on file Other Topics Concern Not on file Social History Narrative Not on file Social Determinants of Health Financial Resource Strain: Medium Risk (11/15/2023) Received from [facility] Overall Financial Resource Strain (CARDIA) Difficulty of Paying Living Expenses: Somewhat hard Food Insecurity: Patient Declined (11/15/2023) Received from [facility] Hunger Vital Sign Worried About Running Out of Food in the Last Year: Patient declined Ran Out of Food in the Last Year: Patient declined Transportation Needs: No Transportation Needs (11/15/2023) Received from [facility] PRAPARE - Transportation Lack of Transportation (Medical): No Lack of Transportation (Non-Medical): No Physical Activity: Patient Declined (11/15/2023) Received from [facility] Exercise Vital Sign Days of Exercise per Week: Patient declined Minutes of Exercise per Session: Patient declined Stress: Patient Declined (11/15/2023) Received from [facility] [employer] - Occupational Stress Questionnaire Feeling of Stress : Patient declined Social Connections: Moderately Integrated (11/15/2023) Received from [facility] Social Connection and Isolation Panel [NHANES] Frequency of Communication with Friends and Family: Three times a week Frequency of Social Gatherings with Friends and Family: Twice a week Attends Yazidism Services: More than 4 times per year Active Member of Clubs or Organizations: Yes Attends Club or Organization Meetings: More than 4 times per year Marital Status: Never Intimate Partner Violence: Not on file Housing Stability: Not on file Physical Exam: Physical Exam Vitals and nursing note reviewed. Constitutional: General: He is not in acute distress. Appearance: Normal appearance. He is not toxic-appearing or diaphoretic. HENT: Head: Normocephalic and atraumatic. Eyes: Conjunctiva/sclera: Conjunctivae normal. Cardiovascular: Rate and Rhythm: Normal rate. Pulmonary: Effort: Pulmonary effort is normal. Neurological: General: No focal deficit present. Mental Status: He is alert and oriented to person, place, and time. Gait: Gait normal. Psychiatric: Mood and Affect: Mood normal. Behavior: Behavior normal. Thought Content: Thought content normal. Judgment: Judgment normal. Vital Signs During ED Visit Patient Vitals for the past 24 hrs: BP Temp Temp src Pulse Resp SpO2 Height Weight 06/22/241944 -- -- -- -- -- -- 1.905 m (6' 3 ) (!) 147.4 kg (325 lb) 06/22/241943 167/77 99.1 F (37.3 C) Oral 98 16 98 % -- -- Orders/Results: Orders Placed This Encounter AMB REFERRAL TO NEUROLOGY No results found for this or any previous visit. Radiographic Imaging No orders to display Procedures: Procedures Moderate Sedation Procedure: No ED Summary/MDM Medical Decision Making Risk Risk Details: I discussed with the patient has been on long ongoing issue he was seen Neurology Rheumatology has had EMG nerve conduction studies and MRI. That has nothing I can do his 1st further testing in the ER this evening. I recommended outpatient follow up with Neurology for continued testing. Clinical Impression: 1. Generalized weakness 2. Paresthesia of skin No follow-ups on file. New Prescriptions No medications on file Discontinued Medications No medications on file An After Visit Summary was printed and given to the patient with above information. . . Hector Napoles MD 06/22/242006 documented in this encounter [facility] 06-18-2024 Emergency department Note All discharge instructions and medications reviewed, all questions answered. Pt verbalized understanding. [facility] 06-18-2024 Emergency department Note All discharge instructions and medications reviewed, all questions answered. Pt verbalized understanding. A Sudol [facility] bedside documented in this encounter [facility] 06-18-2024 Emergency department Note A Abelino DINKEY ENGINE MECHANIC bedside [facility] 06-12-2024 History of Present illness Narrative Images from the original note were not included. [address] [address] Date of Service: 06/12/2024 Subjective: Bhumika Umana Jr. is a 48 y.o. male who presents today for evaluation history of rheumatoid arthritis. Patient is seen at the request of No primary care provider on file.. This is follow-up visit with this patient who is 48-year-old male patient presenting today as an established patient for follow-up of osteoarthritis of the hands, history of rheumatoid arthritis , skin psoriasis who was seen 1st time 02/14/2023. Last time the clinic was 04/17/2024 Patient symptoms started when he was 19-year-old with left ankle pain then right knee pain, subsequently started having pain both hands as well as knees, was diagnosed to have rheumatoid arthritis and start medication around the year 2002, initially was put on methotrexate which he was taking up to early 2019, Humira was given for a total 1.5 years started in the year 2017 and stopped just in early 2019. Patient does not been taking any medications since 2019. Current medications lisinopril, metformin, tizanidine, meloxicam, trazodone, citalopram, seek a, pioglitazone, Lab test 02/14/2023 vitamin-D mild low, vitamin B12 normal, uric acid normal, TSH normal, immunoglobulin levels normal, IgG subclasses normal, ESR and CRP normal, CBC normal, rheumatoid factor negative, CMP normal, RAVINDER 1:160, CCP >300 X-ray hands and wrist degenerative arthritis, SI joints normal, lumbar spine degenerative changes Lab test 04/17/2024 eENA panel negative, ESR and CRP normal, CMP normal, CBC normal, Current medications amitriptyline, meloxicam, Zanaflex. Today 06/12/2024 patient did have pain and weakness in the upper extremities with no definite joint swelling but pain in addition to fatigued The following portions of the patient's history were reviewed and updated as appropriate: allergies, current medications, past family history, past medical history, past social history, past surgical history and problem list. Review of Systems: Review of Systems Constitutional: Negative for fatigue. HENT: Dry mouth Eyes: Dry eye Musculoskeletal: Positive for arthralgias and myalgias. Mild pain Psychiatric/Behavioral: Negative for sleep disturbance. Current Outpatient Medications Medication Sig Dispense Refill amitriptyline (ELAVIL) 10 mg tablet TAKE 1 TABLET BY MOUTH DAILY at 8pm 30 tablet 5 aspirin 81 mg chewable tablet citalopram (CeleXA) 40 mg tablet citalopram 40 mg tablet FARXIGA 5 mg tablet Take 1 tablet (5 mg total) by mouth in the morning. fluticasone propionate (FLONASE) 50 mcg/actuation nasal spray fluticasone propionate 50 mcg/actuation nasal spray,suspension lisinopril-hydroCHLOROthiazide (PRINZIDE,ZESTORETIC) 20-25 mg per tablet lisinopril 20 mg-hydrochlorothiazide 25 mg tablet loratadine (CLARITIN) 10 mg tablet loratadine 10 mg tablet meloxicam (MOBIC) 15 mg tablet Take 1 tablet (15 mg total) by mouth in the morning. 30 tablet 3 metFORMIN (GLUCOPHAGE) 1000 mg tablet metformin 1,000 mg tablet pioglitazone (ACTOS) 30 mg tablet pregabalin (LYRICA) 75 mg capsule One capsule at 8 PM each night 30 capsule 5 rOPINIRole (REQUIP) 0.25 mg tablet Take 1 tablet (0.25 mg total) by mouth 3 (three) times a day. 30 tablet 5 simvastatin (ZOCOR) 20 mg tablet tiZANidine (ZANAFLEX) 4 mg tablet Take 1 tablet (4 mg total) by mouth once daily at bedtime. 30 tablet 5 No current facility-administered medications for this visit. Physical Exam: Physical Exam Vitals and nursing note reviewed. Constitutional: General: He is not in acute distress. Appearance: He is well-developed. He is not diaphoretic. HENT: Head: Normocephalic and atraumatic. Ears: Comments: Bilateral parotid region soft tissue swelling Nose: Nose normal. Neck: Thyroid: No thyromegaly. Pulmonary: Effort: Pulmonary effort is normal. Musculoskeletal: General: No tenderness or deformity. Normal range of motion. Cervical back: Normal range of motion and neck supple. Comments: Hands exams flexion contracture both hands with some tightness of the skin both palms with limited extension consistent with limited hand joint mobility Upper limb muscles no obvious tenderness and no obvious weekness Skin: General: Skin is warm and dry. Findings: No erythema or rash. Neurological: Mental Status: He is alert and oriented to person, place, and time. Cranial Nerves: No cranial nerve deficit. Coordination: Coordination normal. Psychiatric: Behavior: Behavior normal. LANG-28 (If Applicable) There is currently no information documented on the homunculus. Go to the Rheumatology activity and complete the homunculus joint exam. LANG-28 (CRP): -- LANG-28 (ESR): -- Tender (LANG-28): -- Swollen (LANG-28): -- BP 122/78 Resp 18 Wt (!) 148.3 kg (327 lb) : reviewed Labs and Imaging: reviewed and discussed with the patient during the visit.I Lab Results Component Value Date WBC 8.4 04/17/2024 HGB 14.8 04/17/2024 HCT 43.2 04/17/2024 MCV 89 04/17/2024 CRP 0.8 (H) 04/17/2024 C3 153 04/17/2024 C4 33 04/17/2024 AST 17 04/17/2024 Imaging: X-ray hands as per my review degenerative arthritis of the wrists as well as MCPs with no erosions. X-ray sacroiliac joints as per my review no evidence of sclerosis or erosions. X-ray lumbar spine as per my review degenerative change Assessment and Plan: Bhumika Barnardall Partida. is a 48 y.o. male patient with: 1. Primary osteoarthritis of both hands - amitriptyline (ELAVIL) 10 mg tablet; TAKE 1 TABLET BY MOUTH DAILY at 8pm Dispense: 30 tablet; Refill: 5 - meloxicam (MOBIC) 15 mg tablet; Take 1 tablet (15 mg total) by mouth in the morning. Dispense: 30 tablet; Refill: 3 - tiZANidine (ZANAFLEX) 4 mg tablet; Take 1 tablet (4 mg total) by mouth once daily at bedtime. Dispense: 30 tablet; Refill: 5 - rOPINIRole (REQUIP) 0.25 mg tablet; Take 1 tablet (0.25 mg total) by mouth 3 (three) times a day. Dispense: 30 tablet; Refill: 5 - pregabalin (LYRICA) 75 mg capsule; One capsule at 8 PM each night Dispense: 30 capsule; Refill: 5 - Erythrocyte Sedimentation Rate (ESR); Future - C-reactive protein; Future - Comprehensive metabolic panel; Future - CBC auto differential; Future - LDH; Future - CK Total; Future - Vitamin D 25 hydroxy; Future - Vitamin B12; Future - TSH; Future 2. Myopathy - Unlisted Lab Test; Future - [facility] Neurology - [facility] [place], [place]; Future 3. Diabetic cheirarthropathy ([facility]) At this point patient continued to have muscle aches as well as cramp and spasm addition to weakness in the upper extremities. Has no synovitis at this point. Inflammatory markers came back normal as well as VIJAY panel and complements. X-ray hands showed degenerative arthritis with no erosive changes that might suggest rheumatoid. I will add Lyrica as well as Requip. Anti HMGCR antibody. Neurology referral. Return to clinic 3 months This note was created with the assistance of a speech recognition program. While intending to generate a timely document that accurately reflects the content of the visit, no guarantee can be provided that every grammatical or spelling mistake has been or will be identified or corrected. Thank you for your understanding. [facility] Rheumatology Dr. Lula Cota MD [address] [facility], [address] [place] [address] Office: [phone] documented in this encounter [facility] Critique^It [facility] 03-30-2024 Discharge summary Note Date/Time March 30, 2024 12:47pm [facility] [address] [place] [address] Discharge Summary Signed Patient: Bhumika Umana JR MR#: [id number] : 1975 Acct:[id number] Age/Sex: 48 / M Adm Date: 4 Loc: Room: [address] [place] [address]: Bola Garcia DO Copies to: MD Bola Mast DO Lisa J Aichholz, DARIO-C~ Providers Date of Discharge: 03/30/24 Discharging Provider: [...] ago and has been feeling fine. Current mainstreaming facilitator is working him up for possible Sjogren's [...] neurology clinic. He needs to see his mainstreaming facilitator in [place]. The following labs are still pending from [...] the neurology office. Follow up with your Vibration Technician in [place]. 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 and mild weakness [...] % (Auto) 67.6, Lymph % (Auto) 22.0, Garden % (Auto) 9.0, Eos % (Auto) 1.0, Baso % (Auto) 0.4, Nucleat RBC Rel Count 0.0, Neut # (Auto) 13.5 H, Lymph #(Auto) 4.4, Garden # (Auto) 1.8 H, Eos # (Auto) 0.2, Baso # (Auto) 0.1, PHA Creatinine Clear 238.21, Sodium 136, Potassium 4.4, Chloride 101, Carbon Ghzulcj15.2, Anion Gap 12.2, BUN 13, Creatinine 0.61 [...] % (Auto) 77.7, Lymph % (Auto) 14.7, Garden % (Auto) 6.5, Eos % (Auto) 0.6, Baso % (Auto) 0.5, Nucleat RBC Rel Count 0.1, Neut # (Auto) 13.3 H, Lymph #(Auto) 2.5, Garden # (Auto) 1.1 H, Eos # (Auto) [...] signed by Bola Garcia DO> 03/30/24 [address] [facility] Work Phone: 1(640) 806-806608-03-2024 Consult note Author Altagracia Street [facility] March 30, 2024 11:04am Note Date/Time March 30, 2024 10: 08am [facility] EN[facility] [address] [place] [address] Neurology Consult Note Signed Patient: Bhumika Umana JR MR#: [id number] : 1975 Acct:[id number] Age/Sex: 48 / M Adm Date: 4 Loc: Room: [address] [place] [address] Type: ADM INOo Attending Dr: Bola Garcia DO Copies to: DO Cecy Watson NP-C Altagracia Street DO~ HPI Consult Date: 03/30/24 Door Paneler: Altagracia Street DO Reason for consult: weakness Consult Narrative HPI: 48-year-old male being seen in Neurology consultation at the request of the hospitalist. The patient was recently admitted worked up and released for similar issues. The patient has a PMH of T2DM, HTN, depression adn RA. The patient returned to the hopsital/ED [facility] new complaints of BLE where his previous [...] brother came over to go to the [employer]. States he needed help just opening up [...] that his hands feel like they have fbcw-vbj-klxgytuby them. He was discharged from the hospital [...] ago and has been feeling fine. Current mainstreaming facilitator is working him up for possible Sjogren's [...] Denies dizziness, Reports headache(s) and Reports weakness [facility] Medical History Depressed Acute rheumatoid [...] Mert Ferreira M.D.03/30/2024 9:26 AM Dictation Location: [place] [address] Assessment/Plan (1) Bilateral arm weakness: (2) Bilateral [...] <Electronically signed by DO Altagracia Street> 03/30/24 5[address] [facility] Work Phone: 1(664) 307-319608-03-2024 History and physical note Author Edgar Gomez [facility] March 30, 2024 6:59am Note Date/Time March 30, 2024 1:3 8am [facility] [address] [place] [address] Hospitalist H&P Signed Patient: Bhumika Umana JR MR#: [id number] : 1975 Acct:[id number] Age/Sex: 48 / M Adm Date: 4 Loc: Room: [address] [place] [address] Type: ADM INOo Attending Dr: Edgar Gomez MD Copies to: MD Cecy Jeter, INFORMATICS SPECIALIST-C Margaret Kennedy, FIREARMS INSPECTOR~ HPI DATE OF EXAMINATION: 03/30/24 CHIEF COMPLAINT: [...] that his hands feel like they have fwwg-lyl-hesdxmr in them. He is moving both of [...] ago and has been feeling fine. Current mainstreaming facilitator is working him up for possible Sjogren's [...] unless noted in the HPI or below. [facility] Medical History (Updated 03/30/24 @ [...] % (Auto) 14.7 % (.) 03/29/24 22:50 Garden % (Auto) 6.5 % (.) 03/29/24 22:50 Eos % (Auto) 0.6 % (.) 03/29/24 22:50 Baso % (Auto) 0.5 % (.) 03/29/24 22:50 Nucleat RBC Rel Count 0.1 /100 WBC (0-0.5) 03/29/24 22:50 Neut # (Auto) 13.3 x10E3/uL (1.8-7.7) H 03/29/24 22:50 Lymph # (Auto) 2.5 x10E3/uL (1.00-4.8) 03/29/24 22:50 Garden # (Auto) 1.1 x10E3/uL (0.0-0.8) H 03/29/24 [...] (# of days): 1 Documented By: Margaret Kennedy APRN 03/30/24 0138 Signed By: <Electronically signed by REBEKAH Kennedy> 03/30/248 <Electronically signed by Edgar Gomez MD> 03/30/[address] [facility] Work Phone: 1(260) 211-462707-29-2024 Progress note Author Danial Horan [facility] March 25, 2024 2:09pm Note Date/Time March 25, 2024 2:03 pm [facility] [address] [place] [address] Neurology Progress Note Signed Patient: Bhumika Umana JR MR#: [id number] : 1975 Acct:[id number] Age/Sex: 48 / M Adm Date: 4 Loc: Room: [address] [place] [address] Type: ADM IN Attending Dr: Simon Wolfe [...] wrist flexion, +2/5 bilateralfinger extension, +4/5 bilateral cement railroad car loader strength, +3/5 finger abduction bilaterally. No tremors. [...] <Electronically signed by Danial Horan DO> 03/25/24 1404 [facility] Work Phone: 1(464) 701-111707-28-2024 Progress note Author Danial Horan [facility] March 24, 2024 1:33pm Note Date/Time March 24, 2024 1:33 pm [facility] [address] [place] [address] Neurology Progress Note Signed Patient: Bhumika Umana JR MR#: [id number] : 1975 Acct:[id number] Age/Sex: 48 / M Adm Date: 4 Loc: Room: [address] [place] [address] Type: ADM IN Attending Dr: Elder Iyer [...] wrist flexion, +2/5 bilateralfinger extension, +4/5 bilateral cement railroad car loader strength, +3/5 finger abduction bilaterally. No tremors. [...] signed by Danial Horan DO> 03/24/24 1333 [facility] Work Phone: 1(555) 803-925207-28-2024 Progress note Author Elder Iyer [facility] March 24, 2024 11:01am Note Date/Time March 24, 2024 11:0 1am [facility] [address] [place] [address] Hospitalist Progress Note Signed Patient: Bhumika Umana JR MR#: [id number] : 1975 Acct:[id number] Age/Sex: 48 / M Adm Date: 4 Loc: 3T Room: [address] [place] [address] Type: ADM IN Attending Dr: Elder Iyer [...] F 87 17 115/79 95 Room Air 07/28/24 08:00 03/24/24 08:00 03/24/24 08:00 03/24/24 08:00 [...] his hands where he can't make a cement railroad car loader, mentions that he could not hold a [...] Dose Route Start Last Admin Trade Name Adryanq PRN Reason Stop Dose Admin Acetaminophen 650 [...] spray 03/23/24 22:00 03/23/24 21:18 Fluticasone Propionate [place] 120 [place]/16 Gm Bottle NARES-BOTH 03/23/25 21:59 Not Given [...] Insuln.Pen SUBCUT 03/23/25 07:59 Not Given [facility] Protocol Lisinopril 20 mg 03/23/24 09:00 [...] of his bilateral worsening in his hand cement railroad car loader this am -He is off steroids -His [...] signed by Elder Iyer MD> 03/24/24 1101 [facility] Work Phone: 1(587) 404-725207-27-2024 Progress note Author Elder Iyer [facility] March 23, 2024 2:33pm Note Date/Time March 23, 2024 2:33 pm [facility] [address] [place] [address] Hospitalist Progress Note Signed Patient: UmanaBhumika carrizales MR#: [id number] : 1975 Acct:[id number] Age/Sex: 48 / M Adm Date: 4 Loc: 3T Room: [address] [place] [address] Type: ADM IN Attending Dr: Elder Iyer [...] reviewed today: Cervical spine MRI done in [place]: The MRI of the cervical spine is [...] with and without contrast done here at [facility]: Focal areas of abnormal signal are seen [...] in his hands and can make a cement railroad car loader, sensation is normal over the bilateral upper [...] Propionate 2 spray 03/23/24 22:00 Fluticasone Propionate [place] 120 [place]/16 Gm Bottle NARES-BOTH 03/23/25 21:59 QHS FARZANEH [...] cervical spine with and without contrast here [facility], will need better resolution study 3 [...] <Electronically signed by Elder Iyer MD> 03/23/24 1439 [facility] Work Phone: 1(508) 598-877707-27-2024 Consult note Author Danial Horan [facility] March 23, 2024 1:05pm Note Date/Time March 23, 2024 11:3 9am [facility] [address] [place] [address] Neurology Consult Note Signed Patient: Bhumika Umana JR MR#: [id number] : 1975 Acct:[id number] Age/Sex: 48 / M Adm Date: 4 Loc: Room: [address] [place] [address] Type: ADM IN Attending Dr: Elder Iyer MD Copies to: DO Cecy Aguirre NP-C Elder Iyer MD~ HPI Consult Date: 03/23/24 Door Paneler: Danial Horan DO [facility] Medical History (Updated 03/23/24 @ [...] and it sounds like it was Dr. Martino that did him and at the time [...] his close, etc. He went to the [facility] emergency department to be evaluated and had to sign some for there and had used two handsto manipulate the pen. The [facility] emergency department called me overnight and told [...] wrist flexion, +2/5 bilateralfinger extension, +4/5 bilateral cement railroad car loader strength, +3/5 finger abduction bilaterally. No tremors. [...] clinic Documented By: Danial Horan DO 03/23/24 1134 Signed By: <Electronically signed by Danial Horan DO> 03/23/24 [address] [facility] Work Phone: 1(509) 154-284707-27-2024 History and physical note Author Bola Garcia [facility] March 23, 2024 2:28am Note Date/Time March 23, 2024 2:28 am [facility] EN[facility] [address] [place] [address] Hospitalist H&P Signed Patient: Bhumika Umana JR MR#: [id number] : 1975 Acct:[id number] Age/Sex: 48 / M Adm Date: 4 Loc: Room: [address] [place] [address] Type: ADM IN Attending Dr: Bola Garcia DO Copies to: DO Cecy Watson NP-C~ HPI DATE OF EXAMINATION: 03/23/24 CHIEF COMPLAINT: Worsening weakness of both upper extremities. HISTORY OF PRESENT ILLNESS: This is a 48-year-old man who was sent to the emergency room at [facility] from the emergency room at [facility] as a ED to ED transfer [...] on prednisone 2 days ago by the [facility]. In [place] he has had a workup including a CT scan of his cervical spine and then an MRI of his cervical spine performed on March 19, 2024. Contact was made with the neurologist who felt thatthe patient should be brought over here to [facility] so he can get an MRI scan [...] like he recently got established with a mainstreaming facilitator at the [facility] in [place] who told himthat his situation was not [...] except as mentioned elsewhere in the documentation. [facility] Medical History (Updated 03/23/24 @ 02:25 by Bola Garcia DO) Depressed Acute rheumatoid arthritis Diabetes HTN (hypertension) Surgical History History of tonsillectomy and adenoidectomy Family History Father Myocardial infarction Heart disease Mother Family history of colon cancer [facility] Problem: Diagnosed with Cancer Hypertension Social History [...] % (Auto) 8.2 % (.) 03/23/24 00:52 Garden % (Auto) 1.0 % (.) 03/23/24 00:52 Eos % (Auto) 0.0 % (.) 03/23/24 00:52 Baso % (Auto) 0.5 % (.) 03/23/24 00:52 Nucleat RBC Rel Count 0.1 /100 WBC (0-0.5) 03/23/24 00:52 Neut # (Auto) 15.5 x10E3/uL (1.8-7.7) H 03/23/24 00:52 Lymph # (Auto) 1.4 x10E3/uL (1.00-4.8) 03/23/24 00:52 Garden # (Auto) 0.2 x10E3/uL (0.0-0.8) 03/23/24 00:52 [...] He has been established recently with a mainstreaming facilitator out of the [facility] system in [place]. Plan: MRI of the brain with and [...] <Electronically signed by Bola Garcia DO> 03/23/24227 [facility] Work Phone: [phone] 253-419502-11-2022 Evaluation note* Encounter Date Diagnosis Assessment Notes [...] Patient care instructions given in writting by [facility] Care At Home document. 9SLIDES Other Discharge summary Author Simon Wolfe [facility] March 25, 2024 5:58pm Note Date/Time March 25, 2024 5:50 pm [facility] [address] [place] [address] Discharge Summary Signed Patient: Bhumika Umana JR MR#: [id number] : 1975 Acct:[id number] Age/Sex: 48 / M Adm Date: 4 Loc: Room: [address] [place] [address]: Simon Wolfe MD Copies to: MD Cecy Mcdowell, INFORMATICS SPECIALIST-C~ Providers Date of Discharge: 03/25/24 Discharging Provider: [...] Deferred Neuro: AAO x3, no focal deficits. Senior Managing Director strength 4+/5 throughout. 5/5 otherwise Extremities: No [...] 08:43: CSF Supernatant Color Colorless, CSF RBC [id number] 03/25/24 08:43: CSF Color Lt pink, CSF [...] N/A Documented By: Simon Wolfe MD 4 [id number] Signed By: <Electronically signed by Simon Wolfe MD> 03/25/[address] [facility] Work Phone: Evaluation note* Diagnosis Type 2 diabetes mellitus without complication, without long-term current use of insulin ([facility]/HCC)- Primary Type 2 diabetes mellitus without complications (CMS/HCC) documented in this encounter [facility]* Diagnosis Onset Date Resolution Status Diabetes acute HTN (hypertension) acute Upper extremity weakness acu te [facility] Work Phone: Evaluation note* Diagnosis Onset Date Resolution Status Diabetes acute HTN (hypertension) acute Upper extremity weakness acu te Bilateral arm weakness acute Bilateral leg weakness acute Diabetes acute HTN (hypertension) acute Leukocytosis acute Upper extremity weakness acu te [facility] Work Phone: Evaluation note* Diagnosis Onset Date Resolution Status Diabetes acute HTN (hypertension) acute Upper extremity weakness acu te Bilateral arm weakness acute Bilateral leg weakness acute Diabetes acute Falls acute Fasciculation acute HTN (hypertension) acute Leukocytosis acute Upper extremity weakness acu te [facility] Work Phone: Evaluation note* Diagnosis Type 2 diabetes mellitus without complication, without long-term current use of insulin (CMS/HCC) Type 2 diabetes mellitus without complications (CMS/HCC) Depression, unspecified ([facility]) Other chronic pain [facility] Primary osteoarthritis of both hands- Primary Myopathy Unspecified myopathy Diabetic cheirarthropathy ([facility]-HCC) documented in this encounter [facility]* Diagnosis Injury of toe on right foot, initial encounter- Primary documented in this encounter [facility]* Diagnosis Generalized weakness- Primary Other malaise and fatigue Paresthesia of skin Disturbance of skin sensation documented in this encounter [facility]* Diagnosis Essential hypertension, benign (CMS/HCC)- Primary Essential hypertension, benign Type 2 diabetes mellitus without complication, without long-term current use of insulin ([facility]) Class 3 severe obesity due to excess calories without serious comorbidity with body mass index (BMI) of 45.0 to 49.9 in adult (CMS/HCC) Autoimmune disease (CMS/HCC) Autoimmune disease, not elsewhere classified Essential (primary) hypertension (CMS/HCC) Unspecified essential hypertension Other chronic pain Type 2 diabetes mellitus without complications (CMS/HCC) Type 2 diabetes mellitus without complication, without long-term current use of insulin (CMS/HCC)- Primary Primary insomnia Persistent disorder of initiating or maintaining sleep Essential hypertension, benign ([facility]) Essential hypertension, benign Class 3 severe obesity due to excess calories without serious comorbidity with body mass index (BMI) of 45.0 to 49.9 in adult ([facility]) Depression, unspecified depression type ([facility]) Type 2 diabetes mellitus without complication, without long-term current use of insulin ([facility])- Primary Essential hypertension, benign ([facility]) Essential hypertension, benign Asymptomatic microscopic hematuria Degenerative disc disease, cervical Class 3 severe obesity due to excess calories without serious comorbidity with body mass index (BMI) of 45.0 to 49.9 in adult ([facility]) Upper extremity weakness- Primary Other musculoskeletal symptoms referable to limbs Morbid (severe) obesity due to excess calories ([facility]) Body mass index (BMI) 40.0-44.9, adult ([facility]) Rheumatoid arthritis with rheumatoid factor, unspecified ([facility]) Depression, unspecified ([facility]) Type 2 diabetes mellitus without complication, without long-term current use of insulin ([facility]) Other seasonal allergic rhinitis Essential hypertension, benign ([facility]) Essential hypertension, benign Essential (primary) hypertension ([facility]) Unspecified essential hypertension Type 2 diabetes mellitus without complications ([facility]) Other chronic pain Primary insomnia Persistent disorder of initiating or maintaining sleep Essential hypertension, benign ([facility]/HCC)- Primary Essential hypertension, benign Type 2 diabetes mellitus without complication, without long-term current use of insulin ([facility]) Body mass index (BMI) 40.0-44.9, adult ([facility]) Morbid (severe) obesity due to excess calories ([facility]) Other seasonal allergic rhinitis documented in this encounter [facility]* Diagnosis Brachial plexopathy- Primary Brachial plexus lesions Obesity, Class II, BMI 35-39.9 Obesity, unspecified [facility] Financial difficulty- Primary Inadequate material resources [facility] Essential hypertension, benign ([facility]/HCC)- Primary Essential hypertension, benign Type 2 diabetes mellitus without complication, without long-term current use of insulin ([facility]) Class 3 severe obesity due to excess calories without serious comorbidity with body mass index (BMI) of 45.0 to 49.9 in adult ([facility]/HCC) Autoimmune disease ([facility]) Autoimmune disease, not elsewhere classified Essential (primary) hypertension (CMS/HCC) Unspecified essential hypertension Other chronic pain Type 2 diabetes mellitus without complications ([facility]) Type 2 diabetes mellitus without complication, without long-term current use of insulin ([facility])- Primary Primary insomnia Persistent disorder of initiating or maintaining sleep Essential hypertension, benign (CMS/[facility]) Essential hypertension, benign Class 3 severe obesity due to excess calories without serious comorbidity with body mass index (BMI) of 45.0 to 49.9 in adult ([facility]) Depression, unspecified depression type (CMS/[facility]) Type 2 diabetes mellitus without complication, without long-term current use of insulin ([facility])- Primary Essential hypertension, benign (CMS/[facility]) Essential hypertension, benign Asymptomatic microscopic hematuria Degenerative disc disease, cervical Class 3 severe obesity due to excess calories without serious comorbidity with body mass index (BMI) of 45.0 to 49.9 in adult ([facility]) Upper extremity weakness- Primary Other musculoskeletal symptoms referable to limbs Morbid (severe) obesity due to excess calories ([facility]) Body mass index (BMI) 40.0-44.9, adult ([facility]) Rheumatoid arthritis with rheumatoid factor, unspecified (CMS/[facility]) Depression, unspecified (CMS/[facility]) Type 2 diabetes mellitus without complication, without long-term current use of insulin ([facility]) Other seasonal allergic rhinitis Essential hypertension, benign (CMS/[facility]) Essential hypertension, benign Essential (primary) hypertension (CMS/[facility]) Unspecified essential hypertension Type 2 diabetes mellitus without complications ([facility]) Other chronic pain Primary insomnia Persistent disorder of initiating or maintaining sleep Essential hypertension, benign ([facility]/HCC)- Primary Essential hypertension, benign Type 2 diabetes mellitus without complication, without long-term current use of insulin (CMS/[facility]) Body mass index (BMI) 40.0-44.9, adult ([facility]) Morbid (severe) obesity due to excess calories ([facility]) Upper extremity weakness- Primary Other musculoskeletal symptoms referable to limbs Depression, unspecified (CMS/[facility]) Type 2 diabetes mellitus without complication, without long-term current use of insulin ([facility]) Essential hypertension, benign (CMS/[facility]) Essential hypertension, benign Essential (primary) hypertension (CMS/[facility]) Unspecified essential hypertension Type 2 diabetes mellitus without complications ([facility]) Obesity, Class II, BMI 35-39.9 Weakness Other malaise and fatigue Rheumatoid arthritis with rheumatoid factor, unspecified (CMS/HCC) Autoimmune disease ([facility]/HCC) Autoimmune disease, not elsewhere classified Moderate episode of recurrent major depressive disorder ([facility]/HCC) documented in this encounter [facility] HealthcareEvaluation [facility]* Diagnosis Essential hypertension, benign (CMS/HCC)- Primary Essential hypertension, benign Type 2 diabetes mellitus without complication, without long-term current use of insulin (CMS/[facility]) Class 3 severe obesity due to excess calories without serious comorbidity with body mass index (BMI) of 45.0 to 49.9 in adult ([facility]) Autoimmune disease (CMS/HCC) Autoimmune disease, not elsewhere classified Essential (primary) hypertension (CMS/[facility]) Unspecified essential hypertension Other chronic pain Type 2 diabetes mellitus without complications ([facility]) Type 2 diabetes mellitus without complication, without long-term current use of insulin ([facility])- Primary Primary insomnia Persistent disorder of initiating or maintaining sleep Essential hypertension, benign (CMS/[facility]) Essential hypertension, benign Class 3 severe obesity due to excess calories without serious comorbidity with body mass index (BMI) of 45.0 to 49.9 in adult ([facility]) Depression, unspecified depression type (CMS/[facility]) Type 2 diabetes mellitus without complication, without long-term current use of insulin ([facility])- Primary Essential hypertension, benign (CMS/[facility]) Essential hypertension, benign Asymptomatic microscopic hematuria Degenerative disc disease, cervical Class 3 severe obesity due to excess calories without serious comorbidity with body mass index (BMI) of 45.0 to 49.9 in adult ([facility]) Upper extremity weakness- Primary Other musculoskeletal symptoms referable to limbs Morbid (severe) obesity due to excess calories (CMS/[facility]) Body mass index (BMI) 40.0-44.9, adult ([facility]) Rheumatoid arthritis with rheumatoid factor, unspecified (CMS/[facility]) Depression, unspecified (CMS/[facility]) Type 2 diabetes mellitus without complication, without long-term current use of insulin ([facility]) Other seasonal allergic rhinitis Essential hypertension, benign (CMS/HCC) Essential hypertension, benign Essential (primary) hypertension (CMS/HCC) Unspecified essential hypertension Type 2 diabetes mellitus without complications (CMS/[facility]) Other chronic pain Primary insomnia Persistent disorder of initiating or maintaining sleep Essential hypertension, benign (CMS/HCC)- Primary Essential hypertension, benign Type 2 diabetes mellitus without complication, without long-term current use of insulin (CMS/HCC) Body mass index (BMI) 40.0-44.9, adult (CMS/HCC) Morbid (severe) obesity due to excess calories (CMS/HCC) Upper extremity weakness- Primary Other musculoskeletal symptoms referable to limbs Depression, unspecified (CMS/HCC) Type 2 diabetes mellitus without complication, without long-term current use of insulin (CMS/HCC) Essential hypertension, benign (CMS/HCC) Essential hypertension, benign Essential (primary) hypertension (CMS/HCC) Unspecified essential hypertension Type 2 diabetes mellitus without complications (CMS/HCC) Obesity, Class II, BMI 35-39.9 Weakness Other malaise and fatigue Rheumatoid arthritis with rheumatoid factor, unspecified (CMS/HCC) Autoimmune disease (CMS/HCC) Autoimmune disease, not elsewhere classified Moderate episode of recurrent major depressive disorder (CMS/[facility]) Type 2 diabetes mellitus without complication, without long-term current use of insulin (CMS/[facility]) documented in [facility] encounter [facility] Narrative - Reported* Type Description Date Medical History rheumatoid arthritis Medical History type 2 diabeties Medical History Benign essential HTN Medical History Depression Surgical History tonsillectomy and adenoidectomy 1987 Hospitalization History tonsillitis childo d 9SLIDES Other Hospital Discharge instructionsAmbulatory Orders* PT/OT/SP OutPatient Referral Time Frame: 1 Day, Location: Determined By Patient Additional Instructions Follow up in the neurology office. Follow up with your Vibration Technician in [place].[facility] Work Phone: Hospital Discharge instructions* Attachments The following attachments cannot be sent through Care Everywhere. * Weakness: Generalized (Hungarian) * Numbness and Tingling (Hungarian) documented in this encounterAv[facility] SystemInstructionsNot on filedocumented in this encounterProMediMari[facility] SystemInstructionsNot on filedocumented in this encounterProParma [facility] SystemReason for referral (narrative)* Consultation (Routine) - New Request Specialty Diagnoses / Procedures Referred By Rosalie kim Referred To Contact Podiatry Diagnoses Injury of toe on right foot, initial encounter Gale Roca, FIREARMS INSPECTOR-DINKEY ENGINE MECHANIC [address] [place] [address] Referral ID Status Reason Start Date Expiration Date V isits Requested Visits Authorized [id number] New Request 06/18/2024 07/13/2025 1 1 Medical CenterReason for referral (narrative)* Consultation (Routine) - New Request Specialty Diagnoses / Procedures Referred By Contac t Referred To Contact Neurology Diagnoses Generalized weakness Paresthesia of skin Hector Napoles MD [address] [place] [address] Referral ID Status Reason Start Date Expiration Date V isits Requested Visits Authorized [id number] New Request 06/22/2024 07/17/2025 1 1 Medical Center Summary Purpose Family History Relationship Condition Age at Onset Recorded Date/T sreekanth father Unknown Myocardial infarction Unknown Heart disease Unknown mother Family history of colon cancer Unknown Malignant neoplasm Unknown Hypertension Unknown Advance Directives Advance Directive Response Recorded Date/ Time Advance Directives No March 23 12:28am Date Activated Date Inactivated Comments 06/24/2024 5:20 PM 06/26/2024 11:21 PM Question Answer Comments Full Code Order Discussed With: Patient Date Activated Date Inactivated Comments 06/24/2024 5:20 PM 06/26/2024 11:21 PM Question Answer Comments Full Code Order Discussed With: Patient Chief Complaint and Reason for Visit Chief Complaint Sent from Geoffrey E R Reason for Visit Diabetes HTN (hypertension) Upper extremity weakness Chief Complaint Sent from Geoffrey E R leg numbness Reason for Visit Diabetes HTN (hypertension) Upper extremity weakness Bilateral arm weakness Bilateral leg weakness Diabetes HTN (hypertension) Leukocytosis Upper extremity weakness Chief Complaint Sent from Chancellor E R leg numbness Reason for Visit Diabetes HTN (hypertension) Upper extremity weakness Bilateral arm weakness Bilateral leg weakness Diabetes Falls Fasciculation HTN (hypertension) Leukocytosis Upper extremity weakness Reason for Referral Specialty Diagnoses / Procedures Referred By Contac t Referred To Contact Diagnoses Brachial plexopathy Procedures CONSULT TO NEUROMUSCULAR MEDIC OFFICE/OUTPATIENT [facility] 60 MINUTES Keith Leone MD [address] [place] [address] Referral ID Status Reason Start Date Expiration Date Visits Requested Visits Authorized [id number] Authorized PCP Requested Referral 4 07/10/2025 1 1 Specialty Diagnoses / Procedures Referred By Rosalie kim Referred To Contact [facility] Diagnoses Brachial plexopathy Procedures CONSULT TO OPHTHALMIC SURGEON OCCUPATIONAL THERAPY [facility] 60 [place] [address] [place] [id number] [facility] [place] [address] Referral ID Status Reason Start Date Expiration Date Visits Requested Visits Authorized [id number] Pending Review Auto-Generat ed Referral 4 07/10/2025 1 1 Specialty Diagnoses / Procedures Referred By Rosalie kim Referred To Contact [facility] Diagnoses Brachial plexopathy Procedures [facility](NEURO/NI) NERVE CONDUCTION STUDIES 9-10 STUDIES Keith Leone MD [address] [place] [address] [place] [address] Referral ID Status Reason Start Date Expiration Date Visits Requested Visits Authorized [id number] New Request Auto-Generat ed Referral 4 07/10/2025 1 1 Additional Source Comments (unrecognized sect ion and content) No Status Records FoundNo Status Records FoundNo Status Records FoundNo Status Records FoundNo Status Records FoundNo Status Records FoundNo Status Records FoundNo Status Records FoundNo Status Records Found INFORMATION SOURCE (unrecogn ized section and content) DATE CREATED AUTHOR 11/14/2018 [facility] DATE CREATED AUTHOR AUTHOR'S ORGANIZ ATION 04/25/2022 [facility] DATE CREATED AUTHOR AUTHOR'S ORGANIZ ATION 04/08/2024 [facility] DATE CREATED AUTHOR AUTHOR'S ORGANIZ ATION 06/11/2024 [facility] DATE CREATED AUTHOR AUTHOR'S ORGANIZ ATION 06/17/2024 [facility] DATE CREATED AUTHOR AUTHOR'S ORGANIZ ATION 06/25/2024 [facility] DATE CREATED AUTHOR AUTHOR'S ORGANIZ ATION 07/12/2024 [facility] DATE CREATED AUTHOR AUTHOR'S ORGANIZ ATION 07/13/2024 [facility] DATE CREATED AUTHOR AUTHOR'S ORGANIZ ATION 07/25/2024 [facility] EPIC Source Comments (unrecognize d section and content) In the event this informatio n is protected by the Federal Confidentiality of Alcohol and Drug Abuse Patient Records regulations: The Federal rules restrict any use of the information to criminally investigate or prosecute any alcohol or drug abuse patient.[facility] CenterIn the event this information is protected by the Federal Confidentiality of Alcohol and Drug Abuse Patient Records regulations: The Federal rules restrict any use of the information to criminally investigate or prosecute any alcohol or drug abuse patient.[facility] CenterIn the event this information is protected by the Federal Confidentiality of Alcohol and Drug Abuse Patient Records regulations: The Federal rules restrict any use of the information to criminally investigate or prosecute any alcohol or drug abuse patient.[facility] Reason for Visit (unrecogniz ed section and content) Reason Onset Date Comments Appointment Cancelled 11/07/2013 Reason Comments Med Refill Reason Comments Fall Pt arrives today fro m a fall. Pt states his quads gave out and I fell. Pt states he has toe injuries. Toe nail on the right greater toe is bloody. Reason Comments Numbness Pt to ED with c/o nu mbness to bilat hands. Pt states It started in December with my fingertips, and its slowly moved up my arms, and I'm having weakness . Pt has seen Neuro, and was told its not a stroke (per MRI in March . Pt has had several falls, and was seen @ this ED for falls. Pt is having pain to his right knee. Denies LOC from fall. Rates pain to right knee 10/07 Reason Comments Ambulatory Social Work Financial Difficu lties Reason Comments Diabetes Reason Comments Med Refill Telephone Encounter - Shagufta Burton - 11/07/2013 2:22 PM EDT Miscellaneous Notes (unrecog nized section and content) Called left message for patient in regards to appointment on 11/08/2013 @ 3:30 with being cancelled and needing to be rescheduled. Waiting on a call back from patient. documented in this encounter Care Teams (unrecognized sec tion and content) Setter Cold Rolling Machine Relationship Specialty Start Date End Date Lexa Hickman MD PCP - General Family Medicine 03/15/23 Cecy Hernandez NP [address] [place] [address] Referring Physician Nurse Practitioner 03/15/23 Team Status: [...] Active Member Role Status Dates Cecy Ruth Haywoodshelliedillon Primary Care Provider Active Sta rt: March 30, 2024 Emily Winn DO Emergency Provider Active Start: March 30, 2024 Edgar Gomez MD Admit Provider, Atte nding Provider Active Start: March 30, 2024 Team Status: Inactive Member Role Status Dates Cecy Haywooddillon Primary [...] March 30, 2024 End: March 30, 2024 Setter Cold Rolling Machine Relationship Specialty Start Date End Date Lexa Hickman MD [address] [place] [phone] PCP - General Family Medicine 11/16/23 Cecy Hernandez NP [address] [place] [phone] Referring Physician Nurse Practitioner 03/15/23 Cecy Hernandez NP [address] [place] [phone] Nurse Practitioner Family Medicine 11/16/23 Setter Cold Rolling Machine Relationship Specialty Start Date End Date Lexa Hickman MD [address] [place] [phone] PCP - General Family Medicine 11/16/23 Cecy Hernandez NP [address] [place] [phone] Referring Physician Nurse Practitioner 03/15/23 Cecy Hernandez NP [address] [place] [phone] Nurse Practitioner Family Medicine 11/16/23 [employer] Relationship Specialty Start Date End Date Cecy Hernandez CNP [address] [place] [phone] PCP - General Certified Nurse Practitioner 06/22/24 [employer] Relationship Specialty Start Date End Date Unallocated, Brandons MD Stephan [address] [facility] [place] [address] PCP - General Family Medicine 06/11/24 Cecy Hernandez NP [address] [place] [phone] Referring Physician Nurse Practitioner 03/15/23 Cecy Hernandez NP [address] [place] [phone] Nurse Practitioner Family Medicine 11/16/23 [employer] Relationship Specialty Start Date End Date Unallocated, Serena Rothman MD [address] [place] [address] PCP - General Family Medicine 06/11/24 Cecy Hernandez NP [address] [place] [phone] Referring Physician Nurse Practitioner 03/15/23 Cecy Hernandez NP [address] [place] [address] Nurse Practitioner Family Medicine 11/16/23 [employer]ter [employer] Relationship Specialty Start Date End Date Unallocated, Serena Rothman MD [address] [place] [address] PCP - General Family Medicine 06/11/24 Cecy Hernandez NP [address] [place] [phone] Referring Physician Nurse Practitioner 03/15/23 Cecy Heranndez NP [address] [place] [phone] Nurse Practitioner Family Medicine 11/16/23 [employer] Relationship Specialty Start Date End Date Cecy Hernandez CNP [address] [place] [address] PCP - General Family Medicine 06/24/24 [employer]ter [employer] Relationship Specialty Start Date End Date Cecy Hernandez DIN[employer] ENGINE MECH[employer]IC [address] [place] [address] PCP - General Family Medicine 06/24/24 [employer] Relationship Specialty Start Date End Date Lexa Hickman MD [address] [place] [phone] PCP - General Family Medicine 06/27/24 Cecy Hernandez NP [address] [place] [phone] Referring Physician Nurse Practitioner 03/15/23 Cecy Hernandez NP [address] [place] [phone] Nurse Practitioner Family Medicine 11/16/23 [employer] Relationship Specialty Start Date End Date Lexa Hickman MD [address] [place] [phone] PCP - General Family Medicine 06/27/24 Cecy Hernandez NP [address] [place] [phone] Referring Physician Nurse Practitioner 03/15/23 Cecy Hernandez NP [address] [place] [phone] Nurse Practitioner Family Medicine 11/16/23 [employer] Relationship Specialty Start Date End Date Lexa Hickman MD [address] [place] [phone] PCP - General Family Medicine 06/27/24 Cecy Hernandez NP [address] [place] [phone] Referring Physician Nurse Practitioner 03/15/23 Cecy Hernandez NP [address] [place] [phone] Nurse Practitioner Family Medicine 11/16/23 Scheduled Active and Recently Administ ered Medications (unrecognized section and content) Medication Order 06/16/2024 06/17/2024 06/18/2024 Bacitracin ointment 1 Application (COMPLETED) 1 Application, Topical, ONCE, 1 dose, On Mon06/18/24 at 2215, Apply to right great toe 2210 (Given - Provid er: Tamica Mckeon RN) cephALEXin (KEFLEX) capsule 500 mg (COMPLETED) 500 mg, Oral, ONCE, 1 dose, On Mon06/18/24 at 2215 2210 (Given - Provid er: Tamica Mckeon RN) FOR RECORDS PERTAINING TO PATIENTS WHO ARE [...] BE BASED ON THE PRIMARY CLINICAL RECORDS. [employer] provides no warranty or guarantee of the accuracy or completeness of information in this document.
--- NOTE | 2024-08-08 03:19 | ECG_ITS ---
[facility] Test Date: 2024-08-08 Pat Name: BHUMIKA BRYANT Department: Room: - Gender: Male Feather Maker: : 1975 Requested By: RUBÉN FRENCH Order Number: [id number] Reading MD: VICTORIA DOMINGUEZ Measurements Intervals [place] Rate: 84 P: 53 TN: 138 QRS: 19 QRSD: 88 T: 25 QT: 374 QTc: 415 Interpretive Statements 1100 Sinus rhythm Non-Specific T wave inversion in III 9110 normal ECG Compared to ECG 02/08/2019 01:48:34 No significant changes Electronically Signed On 08-08-2024 8:07:19 EST by VICTORIA DOMINGUEZ
--- NOTE | 2024-08-08 03:28 | ED_ITS ---
HPI HPI - General Adult General Chief complaint: Extremity Problem, Nontraumatic Stated complaint: GENERAL WEAKNESS Time Seen by Provider: 08/08/24 02:29 Source: patient Mode of arrival: walk-in Limitations: no limitations History of Present Illness HPI narrative: This 49-year-old male presents for evaluation of increasing upper extremity weakness as well as lower extremity weakness. He has been seen in this emergency department several times and had an MRI that showed cervical spinal stenosis as well as herniated disks in his neck. The symptoms started earlier this year with paresthesias in his hands. He was evaluated in this emergency department and transferred to [facility] for evaluation by neurology. The patient states for the past 1 to 2 years he has been having increasing weakness in his hands now his arms and shoulders are weak. His legs are weak and he has to walk with a wide-based gait. He states when he tries to raise his legs he starts getting shaking in his thighs. The patient states that he was kicked out of his mother's house because he could not do any work around the house due to his medical issues. After getting kicked out of his mother's house he stayed with his brother in [facility] for a period of time. He then was told he could no longer stay there and moved in with his sister locally. His sister told him tonight that he had to be out of the house by midnight. At this point the patient is homeless. He states that his symptoms are worsening and he cannot get any help. He has been seen in the past multiple times and was diagnosed with rheumatoid arthritis. He states he was on Humira. When he was in [place] he was told to follow-up with [facility]. He went to [facility] and was admitted for a period of time at which time they stopped his medications. He states that after having an MRI of his brain he was told that there are 2 freckle sized lesions on his brain in the same place on both sides of his brain. He did not get any follow-up regarding this. He states that every time he sees a physician he is told that he can follow-up in 4 to 6 weeks. The patient states at this point he feels like he needs to be placed into a penitentiary because he can no longer care for himself. He cannot shower independently. He cannot wipe himself. He cannot shave himself. He also is having trouble feeding himself and has to hold a fork on his thigh and bring his mouth down to the fork because he cannot lift his arms and hands up to the level of his mouth. He has not had any recent fever. He was seen here in the past and given IV steroids which seemed to relieve some of his symptoms. He has not had any loss of bowel or bladder control. Denies any specific pain complaints. Related Data Home Medications ?Medication ?Instructions ?Recorded ?Confirmed loratadine 10 mg tablet (Allergy 10 mg PO DAILY 01/16/24 08/08/24 Relief (loratadine)) meloxicam 15 mg tablet 15 mg PO DAILY 01/16/24 08/08/24 metformin 1,000 mg tablet 500 mg PO .with meals 01/16/24 08/08/24 pioglitazone 30 mg tablet (Actos) 30 mg PO DAILY 04/12/24 08/08/24 Allergies Allergy/AdvReac Type Severity Reaction Status Date / Time adhesive tape Allergy Mild Rash Verified 08/08/24 02:32 almond Allergy Mild Rash Verified 08/08/24 02:32 penicillin G Allergy Mild Vomiting Verified 08/08/24 02:32 oxytetracycline AdvReac Unknown Unknown Verified 08/08/24 02:32 cashews Allergy Mild Rash Uncoded 08/08/24 02:32 Opioid HPI Opioid Management Most Recent Opioid Data: No Data to Display Review of Systems ROS Status of ROS 10 or more systems reviewed and unremark able except as noted in history and below [facility] Medical History (Updated 08/08/24 @ 05:42 by Fabiola Heaton MD) Numbness of fingers of both hands ?R20.0 - Anesthesia of skin (ICD-10) Sleep apnea ?G47.30 - Sleep apnea, unspecified (ICD-10) Diabetes ?E11.9 - Type 2 diabetes mellitus without complications (ICD-10) Type 2 diabetes mellitus ?E11.9 - Type 2 diabetes mellitus without complications (ICD-10) Tonsillitis ?J03.90 - Acute tonsillitis, unspecified (ICD-10) Seasonal allergies ?J30.2 - Other seasonal allergic rhinitis (ICD-10) Rheumatoid arthritis ?M06.9 - Rheumatoid arthritis, unspecified (ICD-10) EDDI (obstructive sleep apnea) ?G47.33 - Obstructive sleep apnea (adult) (pediatric) (ICD-10) Hypertension ?I10 - Essential (primary) hypertension (ICD-10) Epigastric pain ?R10.13 - Epigastric pain (ICD-10) Depression ?F32.A - Depression, unspecified (ICD-10) Obesity ?E66.9 - Obesity, unspecified (ICD-10) Chronic pain ?G89.29 - Other chronic pain (ICD-10) Cellulitis ?L03.90 - Cellulitis, unspecified (ICD-10) Anxiety ?F41.9 - Anxiety disorder, unspecified (ICD-10) Surgical History (Updated 04/12/24 @ 14:30 by Alessia Stephen, FERNANDA) Hx of tonsillectomy ?Z90.89 - Acquired absence of other organs (ICD-10) H/O adenoidectomy ?Z90.89 - Acquired absence of other organs (ICD-10) Family History (Updated 04/15/24 @ 13:41 by Jesica Lee NP) Other Family history of colon cancer Family history of diabetes mellitus Family history of heart disease Family history of hypertension Family history of stroke Social History (Updated 04/23/24 @ 07:54 by Karen Castillo RN) Within the past year, how often did you have a drink containing alcohol: never Score interpretation: A score less than 4 is consistent with normal alcohol consumption. Smoking status: Former smoker Non-prescribed substance use: denies use Previous occupational history: does not work Highest level of school completed/degree received: high school graduate Little interest or pleasure in doing things: not at all Feeling down, depressed, or hopeless: more than half the days Exam Narrative Exam Narrative: Vital signs and Nursing Notes reviewed: Patient is afebrile with a normal pulse, normal blood pressure, he is not hypoxic with pulse ox of 97% on room air General: Awake, alert, oriented, well-nourished but fairly poorly kempt, nontoxic, coherent male, tearful at times describing his medical issues and homelessness HEENT: Normocephalic atraumatic, mucous membranes are moist and pink, eyes are clear, normal conjunctiva, vision is grossly intact, posterior pharynx is normal in appearance. Neck: Supple Chest: Lungs are clear to auscultation with good air entry, there is no wheezing rhonchi or rales appreciated no accessory muscle use, patient is speaking in complete sentences-no chest wall tenderness to palpation CVS: Regular rate and rhythm S1-S2, no murmurs rubs or gallops, pulses are brisk and equal bilaterally ABD: Soft, nondistended, nontender, no rebound guarding or rigidity, bowel sounds are normal, no pulsatile masses appreciated Extremities: Patient is minimally able to shrug his shoulders. He has decreased use of both upper extremities. He can make a weak fist. He has muscle wasting of his thenar and hypothenar eminences. He is unable to approximate thumb and all fingers. There is moderate wasting of his thigh and calf muscles. Skin: Normal in appearance without rash,pallor, petechiae or purpura Neuro: Diffusely diminished reflexes. Patient walks with a wide based gait. Speech is clear, cognition is intact. No facial droop noted. Constitutional Vital Signs, click to edit/add: Last Vital Signs Temp 98 F 08/08/24 02:18 Pulse 93 H 08/08/24 03:33 Resp 21 H 08/08/24 03:33 BP 143/87 H 08/08/24 05:01 Pulse Ox 97 08/08/24 06:00 O2 Del Method Room Air 08/08/24 02:18 Course Vital Signs Vital signs: Vital Signs Temperature 98 F 08/08/24 02:18 Pulse Rate 94 H 08/08/24 02:18 Respiratory Rate 14 08/08/24 02:18 Blood Pressure 117/85 08/08/24 02:18 Pulse Oximetry 97 08/08/24 02:18 Oxygen Delivery Method Room Air 08/08/24 02:18 Temperature 98 F 08/08/24 02:18 Pulse Rate 93 H 08/08/24 03:33 Respiratory Rate 21 H 08/08/24 03:33 Blood Pressure 143/87 H 08/08/24 05:01 Pulse Oximetry 97 08/08/24 06:00 Oxygen Delivery Method Room Air 08/08/24 02:18 Medical Decision Making MDM Narrative Medical decision making narrative: This 49-year-old male presents for evaluation of multiple complaints. Please refer to my HPI. He has general weakness which started as upper extremity weakness. His symptoms started with some paresthesias of his hands earlier this year. He has been seen by multiple physicians, neurologist and states that he has been diagnosed in the past with rheumatoid arthritis. His weakness has now extended to his lower extremities with muscle wasting, he states he is inability to care for himself. He has been living with family who have had to help him bathe and eat. His sister with whom he has been living kicked him out of the house last night. The patient states he feels that he needs to be placed in a penitentiary because he cannot care for himself. He does have generalized muscle wasting, decreased decreased reflexes. He did have an MRI of his cervical spine which is included in the body of this report earlier this year. It does show cervical spinal stenosis. EKG was ordered and is a sinus rhythm with no acute changes. Routine labs were ordered and are reviewed. He has a normal white count and stable hemoglobin. Electrolytes are normal. CPK is normal. Acetone is negative. He was given a dose of IV Solu-Medrol at his request as he stated that this has helped him in the past. I explained to him that I will speak with the hospitalist after 6 AM when he is available to discuss the patient's condition and disposition. Case was discussed at length with Dr. Batres who has graciously accepted the patient for admission and social work evaluation Medical Records Medical records reviewed: Yes I reviewed the patient's medical records Medical records narrative: MRN: [facility]:[id number] date: 1975 Sex: M Assigned Patient Location: ED.MAIN Current Patient Location: Accession/Order Number: [id number] Exam Date: 03/19/2024 19:50 Report Date: 03/19/2024 22:13 At the request of: KATHARINE CHEN Procedure: MR cervical spine wo con EXAM: MR cervical spine wo con HISTORY: The patient is a 48-year-old male, bilateral arm weakness COMPARISON: CT scan of the cervical spine from 4:44 PM. TECHNIQUE: Sagittal T1, T2, STIR; axial T2, GRE. FINDINGS: The accompanying CT scan of the cervical spine reported thickened calcification of the posterior longitudinal ligament at the C2-C3 and C3-C4 levels. The sagittal images of the current MRI demonstrate no masses or signal abnormalities throughout the cervical spinal cord. There is no cerebellar tonsillar ectopia. The sagittal images demonstrate no fractures or loss of vertebral body height throughout the cervical spine. No bone marrow edema is seen within any of the cervical vertebrae. There is no malalignment. There is moderate disc space narrowing throughout the cervical spine. The axial images demonstrate no paraspinal masses or fluid collections. Segmental analysis: C2-C3: No disc bulges or protrusions. No central canal stenosis. The neural foramen are patent bilaterally. C3-C4: There is a central disc extrusion at this level. This causes moderate central canal stenosis. The neural foramen are patent bilaterally. This is the worst level. C4-C5: There is a central disc protrusion at this level. This does not cause central canal stenosis. The neural foramen are patent bilaterally. C5-C6: There is a central disc protrusion at this level. This does not cause central canal stenosis. There is mild neural foraminal narrowing bilaterally. C6-C7: There is a broad-based central disc protrusion at this level. This does not cause central canal stenosis. The neural foramen are relatively patent bilaterally. C7-T1: No disc bulges or protrusions. No central canal stenosis. The neural foramen are patent bilaterally. IMPRESSION: Disc herniations throughout the cervical spine, worst at the C3-C4 level where there is moderate central canal stenosis. Electronically authenticated by: MARGARITA JIMÉNEZ Date: 03/19/2024 22:13 Lab Data Lab results reviewed: Yes I reviewed the patient's lab results Labs: Lab Results 08/08/24 Range/Units 03:48 WBC 11.6 H (4.0-11.0) 10^3/uL RBC 5.14 (4.70-6.10) 10^6/uL Hgb 15.2 (14.0-18.0) g/dL Hct 45.2 (42.0-54.0) % MCV 87.9 (80.0-94.0) fL MCH 29.6 (25.9-34.0) pg MCHC 33.6 (29.9-35.2) g/dL RDW 12.2 (11.0-15.0) % Plt Count 315 (150-450) 10^3/uL MPV 9.2 L (9.5-13.5) fL Neut % (Auto) 75.8 H (43.0-75.0) % Lymph % (Auto) 16.3 L (20.5-60.0) % [place] % (Auto) 6.6 (1.7-12.0) % Eos % (Auto) 0.7 L (0.9-7.0) % Baso % (Auto) 0.3 (0.2-2.0) % Neut # (Auto) 8.8 H (1.4-6.5) 10^3/uL Lymph # (Auto) 1.9 (1.2-3.8) 10^3/uL [place] # (Auto) 0.8 (0.3-0.8) 10^3/uL Eos # (Auto) 0.1 (0.0-0.7) 10^3/uL Baso # (Auto) 0.0 (0.0-0.1) 10^3/uL Abs Immat Gran (auto) 0.03 (0.00-0.03) 10^3/uL Imm/Tot Granulo (auto) 0.3 (0.0-0.5) % Sodium 140 (136-145) mmol/L Potassium 3.8 (3.5-5.1) mmol/L Chloride 104 (98-107) mmol/L Carbon Dioxide 25.3 (21.0-32.0) mmol/L Anion Gap 14.5 BUN 8.0 (7.0-18.0) mg/dL Creatinine 0.82 (0.70-1.30) mg/dL Est GFR ( Amer) >60 (>=60 mL/min/1.73m^2) Est GFR (Non-Af Amer) >60 (>=60 mL/min/1.73m^2) BUN/Creatinine Ratio 9.8 Glucose 113 H (74-106) mg/dL Calcium 9.2 (8.5-10.1) mg/dL Total Bilirubin 0.8 (0.2-1.0) mg/dL AST 15 (15-37) U/L ALT 25 (16-63) U/L Alkaline Phosphatase 89 (46-116) U/L Total Creatine Kinase 52 (39-308) U/L Total Protein 7.4 (6.4-8.2) g/dL Albumin 3.9 (3.4-5.0) g/dL Globulin 3.5 g/dL Albumin/Globulin Ratio 1.1 Acetone, Qual Negative (NEGATIVE) ECG Data Attestation: I personally reviewed and interpreted this ECG as follows: (Sinus rhythm 84 bpm, normal axis, normal intervals, no acute ST segment elevation or T wave inversion) Discharge Plan Discharge Chief Complaint: Extremity Problem, Nontraumatic Clinical Impression: Bilateral arm weakness, Paresthesia, Cervical spinal stenosis Patient Disposition: Admitted as Observation Time of Disposition Decision: 06:31 Condition: Fair Prescriptions / Home Meds: No Action loratadine [Allergy Relief (loratadine)] 10 mg tablet 10 mg PO DAILY meloxicam 15 mg tablet 15 mg PO DAILY metformin 1,000 mg tablet 500 mg PO .with meals pioglitazone [Actos] 30 mg tablet 30 mg PO DAILY Print Language: Guinean Referrals: Cecy Hernandez NP [Primary Care Provider] - 1 week
[2024-08-08 03:59] LABS: Basophils Percent Auto 0.3 % (0.2-2.0); Eosinophils Absolute Auto 0.1 10^3/uL (0.0-0.7); Eosinophils Percent Auto 0.7 % (0.9-7.0); Hematocrit 45.2 % (42.0-54.0); Hemoglobin 15.2 g/dL (14.0-18.0); Immature Granulocytes Abs Auto 0.03 10^3/uL (0.00-0.03); Immature Granulocytes Pct Auto 0.3 % (0.0-0.5); Lymphocytes Absolute Auto 1.9 10^3/uL (1.2-3.8); Lymphocytes Percent Auto 16.3 % (20.5-60.0); Mean Corpuscular HGB Conc 33.6 g/dL (29.9-35.2); Mean Corpuscular Hemoglobin 29.6 pg (25.9-34.0); Mean Corpuscular Volume 87.9 fL (80.0-94.0); Mean Platelet Volume 9.2 fL (9.5-13.5); Monocytes Absolute Auto 0.8 10^3/uL (0.3-0.8); Monocytes Percent Auto 6.6 % (1.7-12.0); Neutrophils Absolute Auto 8.8 10^3/uL (1.4-6.5); Neutrophils Percent Auto 75.8 % (43.0-75.0); Platelet Count 315 10^3/uL (150-450); Red Blood Count 5.14 10^6/uL (4.70-6.10); Red Cell Distribution Width 12.2 % (11.0-15.0); White Blood Count 11.6 10^3/uL (4.0-11.0)
[2024-08-08] MEDS: METHYLPREDNISOLONE SOD SUCC PF 125 MG/2 ML VIAL IVP (04:01)
[2024-08-08 04:11] LABS: Acetone NEGATIVE (NEGATIVE)
[2024-08-08 04:14] LABS: Alanine Aminotransferase 25 U/L (16-63); Albumin Globulin Ratio 1.1; Albumin Level 3.9 g/dL (3.4-5.0); Alkaline Phosphatase 89 U/L (46-116); Anion Gap 14.5; Aspartate Amino Transferase 15 U/L (15-37); BUN Creatinine Ratio 9.8; Bilirubin Total 0.8 mg/dL (0.2-1.0); Calcium 9.2 mg/dL (8.5-10.1); Carbon Dioxide 25.3 mmol/L (21.0-32.0); Chloride 104 mmol/L (98-107); Creatine Kinase 52 U/L (39-308); Estimated GFR (African America >60 (>=60 mL/min/1.73m^2); Estimated GFR (Non-African Ame >60 (>=60 mL/min/1.73m^2); Globulin 3.5 g/dL; Glucose 113 mg/dL (74-106); Potassium 3.8 mmol/L (3.5-5.1); Sodium 140 mmol/L (136-145); Total Protein 7.4 g/dL (6.4-8.2)
--- OUTSIDE RECORDS SUMMARY | 2024-08-08 06:55 | XMS_ITS | CCD ---
Author Organization [facility] Care Team Providers Care Luster Applicator Name Role Phone PHYSICIAN, DEFAULT Admitting Unavailable PHYSICIAN, DEFAULT Attending Unavailable PEGGY GAYTAN Primary Care Unavailable Primo Downing Primary Care Provider [phone] Yue Pedroza Unavailable AICHHOLZ, TORQUE TESTER CECY Primary Care Unavailable AICHHOLZ, TORQUE TESTER CECY Admitting Unavailable AICHHOLZ, TORQUE TESTER CECY Attending Unavailable AICHHOLZ, TORQUE TESTER CECY Consulting Unavailable AICHHOLZ, TORQUE TESTER CECY Primary Care Unavailable AICHHOLZ, TORQUE TESTER CECY Admitting Unavailable AICHHOLZ, TORQUE TESTER CECY Attending Unavailable AICHHOLZ, TORQUE TESTER CECY Consulting Unavailable AICHHOLZ, TORQUE TESTER CECY Admitting Unavailable AICHHOLZ, TORQUE TESTER CECY Attending Unavailable AICHHOLZ, TORQUE TESTER CECY Consulting Unavailable AICHHOLZ, TORQUE TESTER CECY Primary Care Unavailable AICHHOLZ, TORQUE TESTER CECY Primary Care Unavailable VISHAL, DR THANG Nichols Attending Unavailabl ken RODGERS, DR THANG Nichols Consulting Unavailabl ken RODGERS, DR THANG Nichols Admitting Unavailabl e JAKOB MCGHEE Consulting Unavailable Lexa Hickman MD Primary Care Provider Aichholz PSYCHOLOGICAL OPERATIONS OFFICER, Cecy Unavailable Unavailable Primary Care Provider Unavailabl e Aichholz, Cecy J Primary Care Provider MD Gale Gonzales Emergency Provider [phone] DO Bola Garcia Admit Provider [phone] DO Danial Horan Other Provider MD Simon Wolfe Attending Provider [phone] Krise, DO Emily M Emergency Provider MD Edgar Gomez Admit Provider MD Edgar Gomez Attending Provider [phone] DO Bola Garcia Attending Provider DO Altagracia Street Other Provider Altag[address]ia [address] Consulting Unavailable Edgar Gomez Admitting Unavailable Cecy Hernandez Primary Care Unavailable Bola Garcia Attending UnavailDanial Leija Consulting Unavailable YobanyhholReva reynoldsa J Primary Care Unavailable Simon Wolfe Attending Unavailab Bola Chan Admitting Unavailabl ken Hernandez PSYCHOLOGICAL OPERATIONS OFFICER, Cecy Unavailable Lexa Hickman MD Primary Care Provider David PSYCHOLOGICAL OPERATIONS OFFICER, Cecy Unavailable COTA, LULA Referring Unavailable COTA, LULA Attending Unavailable COTA, LULA Referring Unavailable COTA, LULA Referring Unavailable COTA, LULA Attending Unavailable COTA, LULA Referring Unavailable Unavailable Primary Care Provider Unavailmilvia Hernandez CNP, Cecy Primary Care Provider [phone] DAVID CECY Primary Care Unavailable HECTOR [place]ES Attending Unavailable JameeloSerena hinojosa MD Provider Primary Care Provi karla Cecy Hernandez CNP Primary Care Provider DAREK VALDOVINOS Attending Unavailable ERROL SANFORD Referring Unavailable CECY HERNANDEZ Primary Care Unavailable LELAND DANG YARSANI Attending Unavailable LELAND DANG YARSANI Admitting Unavailable CECY HERNANDEZ Primary Care Unavailable Lexa Hickman MD Primary Care Provider [phone] CECY HERNANDEZ Attending Unavailable VICKY SCRUGGS Attending [...] TAPE (ROSINS)] Allergy to substance 02-20-20 Rash [facility] (20 sources) Penicillins; Translations: [Penicillins] Drug Allergy 01-03-20 13 Unknown [facility] (1 source) Penicillins (Antibiotic) Drug allergy rash. 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 Dermatitis, [facility] (11 sources) Oxytetracycline Drug Allergy 08-16-20 Unknown [facility] (11 sources) Penicillin G Drug Allergy 08-16-20 Unknown [facility] (11 sources) Other Allergy to substance 08-16-20 Unknown [facility] (11 sources) Wound Dressing Adhesive Propensity to adverse reactions to drug 08-16-20 Rash [facility] (4 sources) Adhesive agent; Translations: [ADHESIVE] Propensity to adverse reactions to drug 02-20-20 13 Rash [facility] (4 sources) almond allergenic extract; Translations: [almond] Drug Allergy 03-23-20 [facility] (4 sources) cashew nut allergenic extract; Translations: [cashew nut] Drug Allergy 03-23-20 [facility] (1 source) Adhesive Tape Drug allergy (disorder) 03-29-20 [facility] (10 sources) almond allergenic extract Drug Allergy 03-29-20 [facility] Medications Current Medications Medication Drug Class(es) Dates [...] complication, without long-term current use of insulin (CMS/[facility]) Chew 1 tablet (81 mg) Daily 30 [...] complication, without long-term current use of insulin ([facility]) Take 1 tablet (5 mg) by mouth [...] 2024 12:00am Actos Active polyethylene glycol 3350 05860 mg powder for oral solution (1 source) [...] 04/04/2024 Active take 2 tablets by mo [facility] three times daily Tizanidine 2 MG tablet [...] Comment on above: Take 1 tablet by thagn th twice daily as needed for Pain. [...] 06-12-2024 06-12-2024 Chronic Other aftercare (1 source) detention (current) use of oral hypoglycemic drugs; Translations: [BEREAVEMENT COORDINATOR USE ORAL HYPOGLYCEMIC DX] Onset: 04-25-2022 Episodic Other aftercare (1 source) detention (current) use of aspirin; Translations: [SENIOR CARE CURRENT USE OF ASPIRIN] Onset: 04-25-2022 Episodic Other aftercare (1 source) Other emt intermediate (current) drug therapy; Translations: [OTH BEREAVEMENT COORDINATOR CURRENT DRUG THERAPY] Onset: 04-25-2022 Episodic Other [...] Office Visit (NRESFV ) -- BHUMIKA UMANA ([id number]) 1975 M Date Time Provider Department 07/10/24 9:30 AM DAREK VALDOVINOS NRESFV During your visit today, we recorded the following information about you: Pulse Blood pressure Weight Height 78/minute 139/79 144.8 kg 1.905 m Keith Leone MD 07/10/2024 1:12 PM Signed [facility] for General Neurology New Patient Evaluation Consulting Provider: Er[facility] Eulalia Bartholomew [address] [address] Chief Complaint/Issues: Bhumika Umana is a 48 year old male with hx of ?RA, T2DM, past tobacco use, obesity, seen in the [facility] for General Neurology for: Progressive BL UE weakness and numbness Intermittent LE weakness HPI: Patient states symptoms started in December 2023 with numbness in his fingertips BL. Later than morning, he noticed he did not have any dining room tables set up attendant strength in his left hand. His right [...] he had celluliutis. He re-established with a mortarman locally who felt he did not have [...] Tongue protrudes midline Language: normal fluency and stcaey, no dysarthria, able to follow commands and [...] and natan (more content not included)... [facility] 06-26-2024 [facility] HNO ID: [id number] Author: ROCIO ANAYA RT(R) Service: Radiology Author Type: Travelift Operator Type: Allied Health Filed: 06/26/2024 07:24 Note [...] PATIENT PRESENTS WITH AN IMPLANTABLE OR ATTACHED DIRECTOR PROSPECT: No RADIOLOGY DEPARTMENT: MR; Exam(s) Completed: Spine: Cervical spine PERIPHERAL IV DATA: Inpatient: see LDA documentation SIGNED BY: RT Gelacio(R) June 26, 2024 7:23 AM Normal [facility] CBC panel Auto (Bld)on 06-26 Erythrocyte distribution width (RBC) [Ratio] 12.1 % Normal 11.5-15.0 [facility] Comment on above: Order Comment: Speci men Type: BLOOD SPECIMEN Ordering Facility: [facility] Address: [address] [place] [address] Performed By: #### L [id number] #### [facility] CLIA [id number] [address] [place] [address] [place] Hematocrit (Bld) [Volume fraction] 42.5 % Normal 39.0-51.0 [facility] Comment on above: Order Comment: Speci men Type: BLOOD SPECIMEN Ordering Facility: [facility] Address: [address] [place] [address] Performed By: #### L [id number] #### [facility] CLIA [id number] [address] [place] [address] [place] Hemoglobin (Bld) [Mass/Vol] 14.2 g/dL Normal 13.0-17.0 [facility] Comment on above: Order Comment: Speci men Type: BLOOD SPECIMEN Ordering Facility: [facility] Address: [address] [place] [address] Performed By: #### L [id number] #### [facility] CLIA [id number] [address] [place] [address] [place] MCH (RBC) [Entitic mass] 30.0 pg Normal 26.0-34.0 [facility] Comment on above: Order Comment: Speci men Type: BLOOD SPECIMEN Ordering Facility: [facility] Address: [address] [place] [address] Performed By: #### L [id number] #### [facility] CLIA [id number] [address] [place] [address] [place] MCHC (RBC) [Mass/Vol] 33.4 g/dL Normal 30.5-36.0 [facility] Comment on above: Order Comment: Speci men Type: BLOOD SPECIMEN Ordering Facility: [facility] Address: [address] [place] [address] Performed By: #### L [id number] #### [facility] CLIA [id number] [address] [place] [address] [place] MCV (RBC) [Entitic vol] 89.7 fL Normal 80.0-100.0 [facility] Comment on above: Order Comment: Speci men Type: BLOOD SPECIMEN Ordering Facility: [facility] Address: [address] [place] [address] Performed By: #### L [id number] #### [facility] CLIA [id number] [address] [place] [address] [place] Nucleated RBC (Bld) [#/Vol] 10*3/uL Normal <0.01 [facility] Comment on above: Order Comment: Speci men Type: BLOOD SPECIMEN Ordering Facility: [facility] Address: [address] [place], [place] [address] Performed By: #### L [id number] #### [facility] CLIA [id number] [address] [place] [address] [place] Platelet mean volume (Bld) [Entitic vol] 9.2 fL Normal 9.0-12.7 [facility] Comment on above: Order Comment: Speci men Type: BLOOD SPECIMEN Ordering Facility: [facility] Address: [address] [place] [address] Performed By: #### L [id number] #### [facility] CLIA [id number] [address] [place] [address] [place] Platelets (Bld) [#/Vol] 304 10*3/uL Normal 150-400 [facility] Comment on above: Order Comment: Speci men Type: BLOOD SPECIMEN Ordering Facility: [facility] Address: [address] [place] [address] Performed By: #### L [id number] #### [facility] CLIA [id number] [address] [place] [address] [place] RBC (Bld) [#/Vol] 4.74 10*6/uL Normal 4.20-6.00 [facility] Comment on above: Order Comment: Speci men Type: BLOOD SPECIMEN Ordering Facility: [facility] Address: [address] [place] [address] Performed By: #### L [id number] #### [facility] CLIA [id number] [address] [place] [address] [place] WBC (Bld) [#/Vol] 8.67 10*3/uL Normal 3.70-11.00 [facility] Comment on above: Order Comment: Speci men Type: BLOOD SPECIMEN Ordering Facility: [facility] Address: [address] [place] [address] Performed By: #### L [id number] #### [facility] CLIA [id number] [address] [place] [id number] [place] [address] [place] [facility] CBC PNL BLD AUTOon 06-26 [facility] NRBC # BLD AUTO <0.01 NINF [facility] PLATELET # BLD AUTO 304 [facility] PMV BLD AUTO 9.2 fL 9.0 - 12.7 fL [facility] WBC # BLD AUTO 8.67 [facility] Erythrocyte distribution width (RBC) [Ratio] 12.1 % 11.5 - 15.0 % [facility] Hematocrit (Bld) [Volume fraction] 42.5 % 39.0 - 51.0 % [facility] Hemoglobin (Bld) [Mass/Vol] 14.2 g/dL 13.0 - 17.0 g/dL [facility] MCH (RBC) [Entitic mass] 30 pg 26.0 - 34.0 pg [facility] MCHC (RBC) [Mass/Vol] 33.4 g/dL 30.5 - 36.0 g/dL [facility] MCV (RBC) [Entitic vol] 89.7 fL 80.0 - 100.0 fL [facility] RBC (Bld) [#/Vol] 4.74 10*6/uL 4.20 - 6.0 0 m/uL [facility] Specimen Type: BLOOD SPECIMEN Ordering Facility: [facility] Address: [address] [place], [place] [address] Original Ordering Provider: DI RICHARDISYNC [facility] CNDSon 06-26-2024 [facility] HNO ID: [id number] Author: LELAND DANG MD Service: General Internal [...] with the resident. I have performed the hodi-id-xqgb and relevant services for a total of >30 minutes. Signature: Leland Dang MD Date: 06/26/2024 Time: 5:27 PM -- DISCHARGE SUMMARY PATIENT NAME: Bhumika Umana ADMISSION DATE: 06/24/2024 DISCHARGE DATE: 06/26/2024 ATTENDING PHYSICIAN: Leland Dang* Code Status: Full Code PCP: Cecy Hernandez, HERIBERTO, TORQUE TESTER Highest Readmission Risk Score: 10 The 30 [...] the wall. 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 [...] his profound arm weakness and weak hand dining room tables set up attendant. During hospitalization, neurology was consulted and cervical [...] Anti-CCP 01/2023: (more content not included)... Normal [facility] Comprehensive metabolic 2000 panelon 06-26-2024 Albumin [Mass/Vol] 4.2 g/dL Normal 3.9-4.9 [facility] Comment on above: Order Comment: Speci men Type: BLOOD SPECIMENOrdering Facility: [facility] Address: [address] [place] [address] Performed By: #### 2 885-2, 85572-0, 2284-8, 00726-9 ####[facility] [id number] [place] [address] [place] ALP [Catalytic activity/Vol] 72 U/L Normal 38-113 [facility] Comment on above: Order Comment: Speci men Type: BLOOD SPECIMENOrdering Facility: [facility] Address: [address] [place] [address] Performed By: #### 2 885-2, 50519-0, 2283-8, 94386-5 ####[facility] [id number] [place] [address] [place] ALT [Catalytic activity/Vol] 24 U/L Normal 10-54 [facility] Comment on above: Order Comment: Speci men Type: BLOOD SPECIMENOrdering Facility: [facility] Address: [address] [place] [address] Performed By: #### 2 885-2, 10230-5, 2283-8, 98288-0 ####[facility] [id number] [address] [address] [place] Anion gap [Moles/Vol] 10 mmol/L Normal 8-15 [facility] Comment on above: Order Comment: Speci men Type: BLOOD SPECIMENOrdering Facility: [facility] Address: [address] [place] [address] Performed By: #### 2 885-2, 82565-8, 228-8, 49285-7 ####[facility] [id number] [place] [address] [place] AST [Catalytic activity/Vol] 19 U/L Normal 14-40 [facility] Comment on above: Order Comment: Speci men Type: BLOOD SPECIMENOrdering Facility: [facility] Address: [address] [place] [address] Performed By: #### 2 885-2, 49953-3, 2284-8, 83498-2 ####[facility] [id number] [place] [address] [place] Bilirubin [Mass/Vol] 0.6 mg/dL Normal 0.2-1.3 [facility] Comment on above: Order Comment: Speci men Type: BLOOD SPECIMENOrdering Facility: [facility] Address: [address] [place] [address] Performed By: #### 2 885-2, 58801-4, 2283-8, 20980-1 ####[facility] [id number] [place] [address] [place] Calcium [Mass/Vol] 9.3 mg/dL Normal 8.5-10.2 [facility] Comment on above: Order Comment: Speci men Type: BLOOD SPECIMENOrdering Facility: [facility] Address: [address] [place] [address] Performed By: #### 2 885-2, 90053-9, 2283-8, 96402-7 ####[facility] [id number] [place] [address] [place] Chloride [Moles/Vol] 104 mmol/L Normal 98-107 [facility] Comment on above: Order Comment: Speci men Type: BLOOD SPECIMENOrdering Facility: [facility] Address: [address] [place] [address] Performed By: #### 2 885-2, 81262-1, 2284-8, 90843-7 ####[facility] [id number] [place] [address] [place] CO2 [Moles/Vol] 27 mmol/L Normal 22-30 [facility] Comment on above: Order Comment: Speci men Type: BLOOD SPECIMENOrdering Facility: [facility] Address: [address] [place] [address] Performed By: #### 2 885-2, 34456-7, 2283-8, 56603-1 ####[facility] [id number] [place] [address] [place] Creatinine [Mass/Vol] 0.65 mg/dL Low 0.73-1.22 [facility] Comment on above: Order Comment: Speci men Type: BLOOD SPECIMENOrdering Facility: [facility] Address: [address] [place] [address] Performed By: #### 2 885-2, 90232-4, 8, ####[facility] [id number] [place] [address] [place] Creatinine and Glomerular filtration rate.predicted panel (S/P/Bld) 118 mL/min/1.73m??? Normal >=60 [facility] Comment on above: Order Comment: Speci men Type: BLOOD SPECIMENOrdering Facility: [facility] Address: [address] [place] [address] Result Comment: Alexa mated Glomerular Filtration Rate [...] actual GFR. Performed By: #### 2 885-2, 07202-3, 2283-8, 30410-7 ####[facility] [id number] [place] [id number] [place] Glucose [Mass/Vol] 94 mg/dL Normal 74-99 [facility] Comment on above: Order Comment: Speci men Type: BLOOD SPECIMENOrdering Facility: [facility] Address: [address] [place] [address] Result Comment: The [place] [employer] (ADA) provides guidance for cutoff [...] Standards of Medical Care in Diabetes 2016, [place] [employer]. Diabetes Care. 2016.39(Suppl 1). Performed By: #### 2 885-2, 34541-7, 2283-8, ####[facility] [id number] [place] [address] [place] Potassium [Moles/Vol] 3.9 mmol/L Normal 3.7-5.1 [facility] Comment on above: Order Comment: Speci men Type: BLOOD SPECIMENOrdering Facility: [facility] Address: [address] [place] [address] Performed By: #### 2 885-2, 85974-5, 2284-03, ####[facility] [id number] [place] [id number] [place] Sodium [Moles/Vol] 141 mmol/L Normal 136-144 [facility] Comment on above: Order Comment: Speci men Type: BLOOD SPECIMENOrdering Facility: [facility] Address: [address] [place] [address] Performed By: #### 2 885-2, 86163-7, 2283-8, 96666-0 ####[facility] [id number] [place] [id number] [place] Urea nitrogen [Mass/Vol] 10 mg/dL Normal 9-24 [facility] Comment on above: Order Comment: Speci men Type: BLOOD SPECIMENOrdering Facility: [facility] Address: [address] [place], [place] [address] Performed By: #### 2 885-2, 75216-5, 2284-8, 92583-0 ####[facility] [id number] [place] [id number] [place] Folate SerPl-mCncon 06-26-20 Folate [Mass/Vol] 11.6 ng/mL Normal >4.7 [facility] Comment on above: Order Comment: Speci men Type: BLOOD SPECIMENOrdering Facility: [facility] Address: [address] [place] [address] Performed By: #### 2 885-2, 99585-2, 2284-8, 98624-4 ####[facility] [id number] [place] [id number] [place] MRI CERVICAL SPINE [...] vertebrae with counting from the craniocervical junction. Store Consultant: PSCB Transcribe Date/Time: Jun 26 2024 7:33A Dictated by : SUDHIR PUENTE MD This examination was interpreted and the report reviewed and electronically signed by: BRIDGET LIND MD on Jun 26 2024 8:09AM EST [id number] Normal [facility] Magnesium SerPl-mCncon 06-26 Magnesium [Mass/Vol] 2.0 mg/dL Normal 1.7-2.3 [facility] Comment on above: Order Comment: Speci men Type: BLOOD SPECIMENOrdering Facility: [facility] Address: [address] [place] [address] Performed By: #### 2 885-2, 31910-2, 2284-8, 72976-8 ####[facility] [id number] [facility] [id number] [address] [place] NURSING PROGon 06-26-2024 NURSING PROG HNO ID: [id number] Author: SUSANA CAST RN Service: Radiology Author [...] June 26, 2024 TIME: 6:38 AM Normal [facility] PROTEIN ELECTROPHORESIS SERU M WITH ELIN (P)on 06-26-2024 Albumin [Mass/Vol] 3.83 g/dL Normal 3.43-5.41 [facility] Comment on above: Order Comment: Speci men Type: BLOOD SPECIMEN Ordering Facility: [facility] Address: [address] [place] [address] Performed By: #### L [id number] #### [facility] CLIA [id number] [address] [place] [address] [place] Alpha 1 globulin Elph [Mass/Vol] 0.26 g/dL Normal 0.18-0.43 [facility] Comment on above: Order Comment: Speci men Type: BLOOD SPECIMEN Ordering Facility: [facility] Address: [address] [place] [address] Performed By: #### L [id number] #### [facility] CLIA [id number] [address] [place] [address] [place] Alpha 2 globulin Elph [Mass/Vol] 0.62 g/dL Normal 0.42-0.98 [facility] Comment on above: Order Comment: Speci men Type: BLOOD SPECIMEN Ordering Facility: [facility] Address: [address] [place] [address] Performed By: #### L [id number] #### [facility] CLIA [id number] [address] [place] [address] [place] Beta globulin Elph [Mass/Vol] 0.76 g/dL Normal 0.61-1.17 [facility] Comment on above: Order Comment: Speci men Type: BLOOD SPECIMEN Ordering Facility: [facility] Address: [address] [place] [address] Performed By: #### L [id number] #### [facility] CLIA [id number] [address] [place] [address] [place] COMMENT (SERUM PROT ELECTRO) Monoclonal Protein analysis (immunofixation) is not indicated. Normal [facility] Comment on above: Order Comment: Speci men Type: BLOOD SPECIMEN Ordering Facility: [facility] Address: [address] [place] [address] Performed By: #### L [id number] #### [facility] CLIA [id number] [address] [place] [address] [place] Gamma globulin Elph [Mass/Vol] 0.62 g/dL Normal 0.53-1.51 [facility] Comment on above: Order Comment: Speci men Type: BLOOD SPECIMEN Ordering Facility: [facility] Address: [address] [place] [address] Performed By: #### L [id number] #### [facility] CLIA [id number] [address] [place] [address] [place] M-PROTEIN LOCATION Normal [facility] Comment on above: Order Comment: Speci men Type: BLOOD SPECIMEN Ordering Facility: [facility] Address: [address] [place] [address] Result Comment: Not Applicable. Performed By: #### L [id number] #### [facility] CLIA [id number] [address] [place] [address] [place] Protein Fractions [Interp] No definitive M protein is identified on protein electrophoresis. Normal No definitive M protein is identified on protein electrophore sis. [facility] Comment on above: Order Comment: Speci men Type: BLOOD SPECIMEN Ordering Facility: [facility] Address: [address] [place] [address] Performed By: #### L [id number] #### [facility] CLIA [id number] [address] [place] [address] [place] Protein.monoclonal Elph [Mass/Vol] 0.00 g/dL Normal <=0.00 [facility] Comment on above: Order Comment: Speci men Type: BLOOD SPECIMEN Ordering Facility: [facility] Address: [address] [place] [address] Performed By: #### L [id number] #### [facility] CLIA [id number] [address] [place] [address] [place] SPE STAFF REVIEW Reviewed by Merritt Villafuerte MD, Ph.D ([id number]) Normal [facility] Comment on above: Order Comment: Speci men Type: BLOOD SPECIMEN Ordering Facility: [facility] Address: [address] [place] [address] Performed By: #### L [id number] #### [facility] CLIA [id number] [address] [place] [address] [place] Prot SerPl-mCncon 06-26-2024 Protein [Mass/Vol] 6.1 g/dL Low 6.3-8.0 [facility] Comment on above: Order Comment: Speci men Type: BLOOD SPECIMENOrdering Facility: [facility] Address: [address] [place] [address] Performed By: #### 2 885-2, 54008-3, 2284-8, 10448-6 ####[facility] [id number] [place] [id number] [facility] THERAPY NTon 06-26-2024 THERAPY NT HNO ID: [id number] Author: SANTA COFFEY, PT, DPT Service: Physical Therapy Author Type: Physical Therapist Type: Therapy (PT/OT/Speech/Resp) Filed: 06/26/2024 14:51 Note Text: Physical Therapy Treatment Summary SERVICE DATE: 06/26/2024 SERVICE TIME: 1425 to 1448 ROOM: [place] [address] PT 6 Clicks Score: 24 DISCHARGE RECOMMENDATIONS [...] Muscle Weakness (generalized) TREATMENT INTERVENTIONS Therapeutic Activity (09713) Timed Code Treatment (minutes): 23 Skilled Treatment [...] June 26, 2024 TIME: 2:51 PM Normal [facility] THERAPY NT HNO ID: [id number] Author: DEIRDRE MORGAN, OTR/L, OTD Service: Occupational Therapy Author Type: Occupational Therapist Type: Therapy (PT/OT/Speech/Resp) Filed: 06/26/2024 11:17 Note Text: Occupational Therapy Evaluation Summary SERVICE DATE: 06/26/2024 SERVICE TIME: 0839 to 1010 ROOM: [place] [address] OT 6 Clicks Score: 16 DISCHARGE RECOMMENDATIONS [...] Muscle Weakness (generalized) TREATMENT INTERVENTIONS Evaluation, Self Long Term Management (64966), Cognitive Training (69885 and 79476) Timed Code Treatment (minutes): 76 Skilled Treatment Time (minutes): 91 TRAINING AND EDUCATION PROVIDED Activity Adaptation/Compensatory Strategies, Assistive Device Use, Adaptive Equipment/DME, Benefits of In-Hospital Mobility, Command Following, Coping Skills/Resiliency, Discharge Planning, Energy Conservation, Functional Mobility Involving ADLs, Grooming Tasks, IADLs/Home Management, Identification of Systems of Support, Life Roles/Routines/Habits, Positioning, Role of Occupational Therapy, Sitting Balance to Improve [place] with ADLs/Self-Care, Splint Management, Standing Balance to Improve [place] with ADLs/Self-Care, Transfer - Sit to Stand, [...] needs identified to allow safe discharge to [facility] (more content not included)... Normal [facility] VITAMIN B6/PYRIDOXINon 06-26 VITAMIN B6 32.1 nmol/L Normal 20.0-125.0 [facility] Comment on above: Order Comment: Speci men Type: BLOOD SPECIMEN Ordering Facility: [facility] Address: [address] [place] [address] Result Comment: INTE RPRETIVE INFORMATION: Vitamin B6 (Pyridoxal 5-Phosphate) Pyridoxal 5'-phosphate measured in a specimen collected following an 8-hour or overnight fast accurately indicates vitamin B6 nutritional status. Non-fasting specimen concentration reflects recent vitamin intake. This test was developed and its performance characteristics determined by [employer]. It has not been cleared or approved by the [place] Food and Drug Administration. This test was performed in a CLIA certified laboratory and is intended for clinical purposes. Performed By: [employer] [address] [place] [address] Systems Consultant: Leonardo Topete MD, PhD CLIA Number: [id number] Performed By: #### L [id number] #### [facility] CLIA [id number] [address] [place] [address] [place] CASE MANAGEMon 06-25-2024 CASE MANAGEM HNO ID: [id number] Author: MOE ARANGO LISW Service: ? Author Type: Sign Board Erector Type: Care Mgt Progress Note Filed: 06/25/2024 14:25 Note Text: CARE MANAGEMENT/ SOCIAL WORK HIGH RISK PSYCHOSOCIAL ASSESSMENT SERVICE DATE: June 25, 2024 SERVICE TIME: 2:05 PM Reason for Admission: Weakness [R53.1] Reason for Social Work Contact: Housing Time Spent (minutes): 30 Information Obtained From: Patient Eyeglass Maker Chart Patient Granted Permission to Speak to Others in the Room: Not Applicable SOCIAL HISTORY Marital Status: Single Children (Including Quality of Relationship): Unknown Gender Identity: Male Abuse History: Not Applicable Support System: Family: Brother Status (Including History of Combat Experience): None PSYCHIATRIC HISTORY: Diagnosis: Depression Family Psychiatric History Unknown Substance Use and Treatment History: Patient/Personnel Counselor Denies DISCHARGE RECOMMENDATIONS: Home Patient/Personnel Counselor Agreeable With Discharge Recommendations At This Time? [...] recently evicted after his sister became the rate clerk earlier this year. Pt reported his father [...] office for assistance. Per EMR, pt with [place] Medicaid. SW encouraged pt to contact his insurance to request a mental health case manager for additional community support. Pt will plan to brother's home at time of discharge. Pt denied any other questions or concerns at this time. Should any other psychosocial needs arise, please re-consult BELINDA. SIGNATURE: YAW Vincent PATIENT NAME: Bhumika Umana DATE: June 25, 2024 TIME: 2:05 PM CONTACT #: [phone] Normal [facility] CBC panel Auto (Bld)on 06-25 Erythrocyte distribution width (RBC) [Ratio] 12.3 % Normal 11.5-15.0 [facility] Comment on above: Order Comment: Speci men Type: BLOOD SPECIMEN Ordering Facility: [facility] Address: [address] [place] [address] Performed By: #### L [id number] #### [facility] CLIA [id number] [address] [place] [address] [place] Hematocrit (Bld) [Volume fraction] 41.9 % Normal 39.0-51.0 [facility] Comment on above: Order Comment: Speci men Type: BLOOD SPECIMEN Ordering Facility: [facility] Address: [address] [place] [address] Performed By: #### L [id number] #### [facility] CLIA [id number] [address] [place] [address] [place] Hemoglobin (Bld) [Mass/Vol] 13.8 g/dL Normal 13.0-17.0 [facility] Comment on above: Order Comment: Speci men Type: BLOOD SPECIMEN Ordering Facility: [facility] Address: [address] [place] [address] Performed By: #### L [id number] #### [facility] CLIA [id number] [address] [place] [address] [place] MCH (RBC) [Entitic mass] 29.9 pg Normal 26.0-34.0 [facility] Comment on above: Order Comment: Speci men Type: BLOOD SPECIMEN Ordering Facility: [facility] Address: [address] [place] [address] Performed By: #### L [id number] #### [facility] CLIA [id number] [address] [place] [address] [place] MCHC (RBC) [Mass/Vol] 32.9 g/dL Normal 30.5-36.0 [facility] Comment on above: Order Comment: Speci men Type: BLOOD SPECIMEN Ordering Facility: [facility] Address: [address] [place] [address] Performed By: #### L [id number] #### [facility] CLIA [id number] [address] [place] [address] [place] MCV (RBC) [Entitic vol] 90.7 fL Normal 80.0-100.0 [facility] Comment on above: Order Comment: Speci men Type: BLOOD SPECIMEN Ordering Facility: [facility] Address: [address] [place] [address] Performed By: #### L [id number] #### [facility] CLIA [id number] [address] [place] [address] [place] Nucleated RBC (Bld) [#/Vol] 10*3/uL Normal <0.01 [facility] Comment on above: Order Comment: Speci men Type: BLOOD SPECIMEN Ordering Facility: [facility] Address: [address] [place] [address] Performed By: #### L [id number] #### [facility] CLIA [id number] [address] [place] [address] [place] Platelet mean volume (Bld) [Entitic vol] 9.3 fL Normal 9.0-12.7 [facility] Comment on above: Order Comment: Speci men Type: BLOOD SPECIMEN Ordering Facility: [facility] Address: [address] [place] [address] Performed By: #### L [id number] #### [facility] CLIA [id number] [address] [place] [address] [place] Platelets (Bld) [#/Vol] 290 10*3/uL Normal 150-400 [facility] Comment on above: Order Comment: Speci men Type: BLOOD SPECIMEN Ordering Facility: [facility] Address: [address] [place] [address] Performed By: #### L [id number] #### [facility] CLIA [id number] [address] [place] [address] [place] RBC (Bld) [#/Vol] 4.62 10*6/uL Normal 4.20-6.00 [facility] Comment on above: Order Comment: Speci men Type: BLOOD SPECIMEN Ordering Facility: [facility] Address: [address] [place] [address] Performed By: #### L [id number] #### [facility] CLIA [id number] [address] [place] [address] [place] WBC (Bld) [#/Vol] 8.92 10*3/uL Normal 3.70-11.00 [facility] Comment on above: Order Comment: Speci men Type: BLOOD SPECIMEN Ordering Facility: [facility] Address: [address] [place] [address] Performed By: #### L [id number] #### [facility] CLIA [id number] [address] [place] [address] [place] [facility] RAVINDER BY IFA WITH REFLEXon 06-25-2024 Interpretation and review of laboratory results Abnormal [facility] Nuclear Ab pattern (S) [Interp] Nuclear fine speckled [facility] Nuclear Ab Ql (S) Positive Abnormal Negative [facility] Comment on above: Anti-nuclear antibod y test is used as an aid in diagnosis of systemic autoimmune diseases. Where positive and clinically warranted, follow-up using disease-specific testing is recommended. Low positive titers are not uncommon with advanced age, certain chronic infections, and malignancies among others. Test methodology: Indirect fluorescence immunoassay (IFA) using HEp-2 cells. 1:160 Specimen Type: BLOOD SPECIMEN Ordering Facility: [facility] Address: [address] [place] [address] Original Ordering Provider: DI SOSA [facility] VIT B12 BRANDTL-DIANNEon Cobalamin (Vitamin B12) [Mass/Vol] 499 pg/mL 232 - 1245 pg/mL [facility] Specimen Type: BLOOD SPECIMEN Ordering Facility: [facility] Address: [address] [place] [address] Original Ordering Provider: LELAND DANG [facility] COPPER BLOODon 06-25-2024 Copper [Mass/Vol] 115 ug/dL Normal 70-140 [facility] Comment on above: Order Comment: Speci men Type: BLOOD SPECIMENOrdering Facility: [facility] Address: [address] [place] [address] Result Comment: This test was developed, and its performance characteristics determined by the [facility] Department of Pathology and Laboratory Medicine. It has not been cleared or approved by the FDA. The [facility] Department of Pathology and Laboratory Medicine is regulated under CLIA as qualified to perform high-complexity testing. This test is used for clinical purposes. It should not be regarded as investigational or for research. Performed By: #### C CISCO, 5763-8 ####[facility] [id number] [place] [address] [place] Comprehensive metabolic 2000 panelon 06-25-2024 Albumin [Mass/Vol] 3.9 g/dL Normal 3.9-4.9 [facility] Comment on above: Order Comment: Speci men Type: BLOOD SPECIMENOrdering Facility: [facility] Address: [address] [place] [address] Performed By: #### 1 9123-9, 2132-04, ####[facility] [id number] [place] [address] [place] ALP [Catalytic activity/Vol] 70 U/L Normal 38-113 [facility] Comment on above: Order Comment: Speci men Type: BLOOD SPECIMENOrdering Facility: [facility] Address: [address] [place] [address] Performed By: #### 1 9123-9, 2132-04, 44479-0 ####[facility] [id number] [place] [address] [place] ALT [Catalytic activity/Vol] 24 U/L Normal 10-54 [facility] Comment on above: Order Comment: Speci men Type: BLOOD SPECIMENOrdering Facility: [facility] Address: [address] [place] [address] Performed By: #### 1 9123-9, 2132-04, ####[facility] [id number] [place] [address] [place] Anion gap [Moles/Vol] 12 mmol/L Normal 8-15 [facility] Comment on above: Order Comment: Speci men Type: BLOOD SPECIMENOrdering Facility: [facility] Address: [address] [place] [address] Performed By: #### 1 9123-9, 2132-04, ####[facility]IA [id number] [place] [address] [place] AST [Catalytic activity/Vol] 15 U/L Normal 14-40 [facility] Comment on above: Order Comment: Speci men Type: BLOOD SPECIMENOrdering Facility: [facility] Address: [address] [place] [address] Performed By: #### 1 9123-9, 2132-04, ####[facility] [id number] [place] [address] [place] Bilirubin [Mass/Vol] 0.7 mg/dL Normal 0.2-1.3 [facility] Comment on above: Order Comment: Speci men Type: BLOOD SPECIMENOrdering Facility: [facility] Address: [address] [place] [address] Performed By: #### 1 9123-9, 2132-04, ####[facility]IA [id number] [place] [address] [place] Calcium [Mass/Vol] 9.1 mg/dL Normal 8.5-10.2 [facility] Comment on above: Order Comment: Speci men Type: BLOOD SPECIMENOrdering Facility: [facility] Address: [address] [place] [address] Performed By: #### 1 23-9, 2132-04, ####[facility]IA [id number] [address] [address] [place] Chloride [Moles/Vol] 105 mmol/L Normal 98-107 [facility] Comment on above: Order Comment: Speci men Type: BLOOD SPECIMENOrdering Facility: [facility] Address: [address] [place] [address] Performed By: #### 1 23-9, 2132-04, ####[facility]IA [id number] [place] [address] [place] CO2 [Moles/Vol] 24 mmol/L Normal 22-30 [facility] Comment on above: Order Comment: Speci men Type: BLOOD SPECIMENOrdering Facility: [facility] Address: [address] [place] [address] Performed By: #### 1 239, 2132-04, ####[facility]IA [id number] [place] [address] [place] Creatinine [Mass/Vol] 0.62 mg/dL Low 0.73-1.22 [facility] Comment on above: Order Comment: Speci men Type: BLOOD SPECIMENOrdering Facility: [facility] Address: [address] [place] [address] Performed By: #### 1 23-9, 2132-04, ####[facility]IA [id number] [place] [id number] [place] Creatinine and Glomerular filtration rate.predicted panel (S/P/Bld) 119 mL/min/1.73m??? Normal >=60 [facility] Comment on above: Order Comment: Speci men Type: BLOOD SPECIMENOrdering Facility: [facility] Address: [address] [place] [address] Result Comment: Alexa mated Glomerular Filtration Rate [...] GFR. Performed By: #### 1 9, 2132-04, ####[facility]IA [id number] [address] [address] [place] Glucose [Mass/Vol] 88 mg/dL Normal 74-99 [facility] Comment on above: Order Comment: Deborah finley Type: BLOOD SPECIMENOrdering Facility: [facility] Address: [address] [place] [address] Result Comment: The [place] [employer] (ADA) provides guidance for cutoff [...] Standards of Medical Care in Diabetes 2016, [place] [employer]. Diabetes Care. 2016.39(Suppl 1). Performed By: #### 1 9, 2132-04, ####[facility]IA [id number] [address] [address] [place] Potassium [Moles/Vol] 3.6 mmol/L Low 3.7-5.1 [facility] Comment on above: Order Comment: Deborah finley Type: BLOOD SPECIMENOrdering Facility: [facility] Address: [address] [place] [address] Performed By: #### 1 239, 2132-04, ####[facility]IA [id number] [place] [address] [place] Protein [Mass/Vol] 6.4 g/dL Normal 6.3-8.0 [facility] Comment on above: Order Comment: Speci men Type: BLOOD SPECIMENOrdering Facility: [facility] Address: [address] [place] [address] Performed By: #### 1 9123-9, 2132-04, 14640-4 ####[facility]IA [id number] [place] [address] [place] Sodium [Moles/Vol] 141 mmol/L Normal 136-144 [facility] Comment on above: Order Comment: Speci men Type: BLOOD SPECIMENOrdering Facility: [facility] Address: [address] [place] [address] Performed By: #### 1 9123-9, 2132-04, 64557-9 ####[facility] LABCLIA [id number] [place] [address] [place] Urea nitrogen [Mass/Vol] 8 mg/dL Low 9-24 [facility] Comment on above: Order Comment: Speci men Type: BLOOD SPECIMENOrdering Facility: [facility] Address: [address] [place] [address] Performed By: #### 1 9123-9, 2132-04, 86602-0 ####[facility]CLIA [id number] [place] [address] [place] HIV 1+2 Ab IA Qlon 4 HIV 1 and 2 Ab IA.rapid Nom (S/P/Bld) Normal [facility] Comment on above: Order Comment: Speci men Type: BLOOD SPECIMEN Ordering Facility[facility] Address: [address] [place] [address] Result Comment: Test not indicated. Performed By: #### L [id number] #### [facility] CLIA [id number] [address] [place] [address] [place] HIV 1+2 Ab+HIV1 p24 Ag IA Ql Non-Reactive Normal Nonreactive [facility] Comment on above: Order Comment: Speci men Type: BLOOD SPECIMEN Ordering [facility] Address: [address] [place] [address] Performed By: #### L [id number] #### [facility] CLIA [id number] [address] [place] [address] [place] HIV immunoassay testing algorithm interpretation (S/P/Bld) [Interp] Normal [facility] Comment on above: Order Comment: Speci men Type: BLOOD SPECIMEN Ordering [facility] Address: [address] [place] [address] Result Comment: No e vidence of HIV-1 or HIV-2 infection. Should recent infection be suspected, repeat testing may be considered 2-3 weeks after this draw. [place] Rev. Code 3701.243(E): This information has been [...] results or diagnoses. Performed By: #### L [id number] #### [facility] CLIA [id number] [address] [place] [address] [place] Magnesium SerPl-mCncon 06-25 Magnesium [Mass/Vol] 2.0 mg/dL Normal 1.7-2.3 [facility] Comment on above: Order Comment: Speci men Type: BLOOD SPECIMENOrdering Facility: [facility] Address: [address] [place] [address] Performed By: #### 1 9123-9, 2132-9, 90266-0 ####[facility] [id number] [place] [address] [place] Methylmalonate SerPl-sCncon 06-25-2024 Methylmalonate [Moles/Vol] 0.25 umol/L Normal <=0.40 [facility] Comment on above: Order Comment: Speci men Type: BLOOD SPECIMEN Ordering [facility] Address: [address] [place] [address] Result Comment: This test was developed, and its performance characteristics determined by the [facility] Department of Pathology and Laboratory Medicine. It has not been cleared or approved by the FDA. The [facility] Department of Pathology and Laboratory Medicine is regulated under CLIA as qualified to perform high-complexity testing. This test is used for clinical purposes. It should not be regarded as investigational or for research. Performed By: #### 1 3964-2 #### [facility] CLIA [id number] [address] [place] [address] [place] [address] [place] NUTRITIONon 06-25-2024 NUTRITION HNO ID: [id number] Author: OH [address] Service: Nutrition Therapy [...] the wall. 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 [...] Weight Type: Admit weight Estimated kilocalorie needs: 8907-3148 Calorie Calculation Method: 10-15 kcals/kg Estimated protein [...] June 25, 2024 TIME: 1:00 PM Normal [facility] THERAPY NTon 06-25-2024 THERAPY NT HNO ID: [id number] Author: SANTA COFFEY, PT, DPT Service: Physical Therapy Author Type: Physical Therapist Type: Therapy (PT/OT/Speech/Resp) Filed: 06/25/2024 08:37 Note Text: Physical Therapy Evaluation Summary SERVICE DATE: 06/25/2024 SERVICE TIME: 739 to 818 ROOM: [place] [address] PT 6 Clicks Score: 24 DISCHARGE RECOMMENDATIONS [...] Weakness (generalized) TREATMENT INTERVENTIONS Evaluation, Therapeutic Activity (29998), Therapeutic Exercise (49899) Timed Code Treatment (minutes): 23 Skilled Treatment [...] June 25, 2024 TIME: 8:37 AM Normal [facility] VITAMIN B1 (THIAMINE), WHOLE BLOODon 06-25-2024 Thiamine (Bld) [Moles/Vol] 199.2 nmol/L Normal 84.3-213.3 [facility] Comment on above: Order Comment: Speci men Type: BLOOD SPECIMENOrdering Facility: [facility] Address: [address] [place] [address] Result Comment: This assay measures the concentration of thiamine diphosphate (TDP), the primary active form of vitamin B1. Approximately 90 percent of vitamin B1 present in whole blood is TDP. Thiamine and thiamine monophosphate, which comprise the remaining 10 percent, are not measured. This test was developed, and its performance characteristics determined by the [facility] Department of Pathology and Laboratory Medicine. It has not been cleared or approved by the FDA. The [facility] Department of Pathology and Laboratory Medicine is regulated under CLIA as qualified to perform high-complexity testing. This test is used for clinical purposes. It should not be regarded as investigational or for research. Performed By: #### B 1WB ####[facility] [id number] [place] [address] [place] Vit B12 SerPl-mCncon 024 Cobalamin (Vitamin B12) [Mass/Vol] 499 pg/mL Normal 232-1245 [facility] Comment on above: Order Comment: Deborah finley Type: BLOOD SPECIMENOrdering Facility: [facility] Address: [address] [place] [address] Performed By: #### 1 9123-9, 2132-9, 98945-7 ####[facility] [id number] [place] [address] [place] Zinc SerPl-mCncon 06-25-2024 Zinc [Mass/Vol] 66 ug/dL Normal 60-120 [facility] Comment on above: Order Comment: Joeli malia Type: BLOOD SPECIMENOrdering Facility: [facility] Address: [address] [place] [address] Result Comment: This test was developed, and its performance characteristics determined by the [facility] Department of Pathology and Laboratory Medicine. It has not been cleared or approved by the FDA. The [facility] Department of Pathology and Laboratory Medicine is regulated under CLIA as qualified to perform high-complexity testing. This test is used for clinical purposes. It should not be regarded as investigational or for research. Performed By: #### C OPPER, 5763-8 ####[facility] LABCLIA [id number] [place] [address] [place] ACETYLCHOLINE REC BINDING AB on 06-24-2024 ACETYLCHOLINE BINDING, QUAL Negative Normal Negative [facility] Comment on above: Order Comment: Speci men Type: BLOOD SPECIMENOrdering Facility: [facility] Address: [address] [place] [address] Result Comment: Anti -acetylcholine receptor binding antibody test is used as an aid in diagnosis of myasthenia gravis. A negative result cannot exclude myasthenia gravis. Clinical correlation is required. Performed By: #### A CHRAB ####[facility] LABIA [id number] [place] [address] [place] Acetylcholine receptor binding Ab (S) [Moles/Vol] <0.02 Normal <0.21 [facility] Comment on above: Order Comment: Speci men Type: BLOOD SPECIMENOrdering Facility: [facility] Address: [address] [place] [address] Performed By: #### A CHRAB ####[facility] [id number] [place] [address] [place] RAVINDER BY IFA WITH REFLEXon Nuclear Ab pattern (S) [Interp] Nuclear fine speckled Normal [facility] Comment on above: Order Comment: Speci men Type: BLOOD SPECIMENOrdering Facility: [facility] Address: [address] [place] [address] Performed By: #### 5 1775-5, 93600-4, 20377-5, 37502-7, 05273-8, 27305-1, 06189-2, ANAIFR, 44032-3, 97188-5 ####[facility] LABIA [id number] [place] [address] [place] Nuclear Ab Ql (S) Positive Abnormal Negative [facility] Comment on above: Order Comment: Speci men Type: BLOOD SPECIMENOrdering Facility: [facility] Address: [address] [place] [address] Result Comment: Anti -nuclear antibody test is used as an aid in diagnosis of systemic autoimmune diseases. Where positive and clinically warranted, follow-up using disease-specific testing is recommended. Low positive titers are not uncommon with advanced age, certain chronic infections, and malignancies among others. Test methodology: Indirect fluorescence immunoassay (IFA) using HEp-2 cells. 1:160 Performed By: #### 5 1775-5, 54321-9, 33095-2, 47919-5, 12668-8, 40453-3, 68403-2, ANAIFR, 87652-2, 60882-7 ####[facility]CLIA [id number] [place] [id number] [place] C3 SerPl-mCncon 06-24-2024 Complement C3 [Mass/Vol] 154 mg/dL Normal 86-166 [facility] Comment on above: Order Comment: Speci men Type: BLOOD SPECIMENOrdering Facility: [facility] Address: [address] [place] [address] Performed By: #### 3 016-3, 4498-2, 2157-01, 1987-12, , , 4485-04 ####[facility] [id number] [place] [id number] [place] C4 SerPl-mCncon 06-24-2024 Complement C4 [Mass/Vol] 24 mg/dL Normal 13-46 [facility] Comment on above: Order Comment: Speci men Type: BLOOD SPECIMENOrdering Facility: [facility] Address: [address] [place], [place] [address] Performed By: #### 3 016-3, 4498-2, 2157-01, 1987-12, , , 4485-04 ####[facility]CL[facility] [id number] [place] [id number] [place] CBC W Auto Differential pane l (Bld)on 06-24-2024 Basophils (Bld) [#/Vol] 0.04 10*3/uL Normal <0.11 [facility] Comment on above: Order Comment: Speci men Type: BLOOD SPECIMENOrdering Facility: [facility] Address: [address] [place] [address] Performed By: #### 5 5454-3, 82374-5, 4536-7 ####[facility] [id number] [facility] [place] [address] [place] Basophils/100 WBC (Bld) 0.5 % Normal [facility] Comment on above: Order Comment: Speci men Type: BLOOD SPECIMENOrdering Facility: [facility] Address: [address] [place] [address] Performed By: #### 5 5454-3, 36173-0, 7 ####[facility] [id number] [facility] [place] [address] [place] Differential cell count method Nom (Bld) Auto Normal [facility] Comment on above: Order Comment: Speci men Type: BLOOD SPECIMENOrdering Facility: [facility] Address: [address] [place] [address] Performed By: #### 5 5454-3, 08462-4, 7 ####[facility] [id number] [facility] [place] [address] [place] Eosinophils (Bld) [#/Vol] 0.17 10*3/uL Normal <0.46 [facility] Comment on above: Order Comment: Speci men Type: BLOOD SPECIMENOrdering Facility: [facility] Address: [address] [place] [address] Performed By: #### 5 5454-3, 88815-1, 7 ####[facility] [id number] [facility] [place] [address] [place] Eosinophils/100 WBC (Bld) 2.0 % Normal [facility] Comment on above: Order Comment: Speci men Type: BLOOD SPECIMENOrdering Facility: [facility] Address: [address] [place] [address] Performed By: #### 5 5454-3, 23826-8, 4537-7 ####[facility]CLIA [id number] [place] [address] [place] Erythrocyte distribution width (RBC) [Ratio] 12.3 % Normal 11.5-15.0 [facility] Comment on above: Order Comment: Speci men Type: BLOOD SPECIMENOrdering Facility: [facility] Address: [address] [place] [address] Performed By: #### 5 5454-3, 32232-4, 4537-7 ####[facility] LABCLIA [id number] [place] [address] [place] Hematocrit (Bld) [Volume fraction] 46.2 % Normal 39.0-51.0 [facility] Comment on above: Order Comment: Speci men Type: BLOOD SPECIMENOrdering Facility: [facility] Address: [address] [place] [address] Performed By: #### 5 5454-3, 97528-6, 4537-7 ####[facility] LABCLIA [id number] [place] [address] [place] Hemoglobin (Bld) [Mass/Vol] 15.2 g/dL Normal 13.0-17.0 [facility] Comment on above: Order Comment: Speci men Type: BLOOD SPECIMENOrdering Facility: [facility] Address: [address] [place] [address] Performed By: #### 5 5454-3, 98648-1, 4537-7 ####[facility] LABCLIA [id number] [place] [address] [place] Immature granulocytes (Bld) [#/Vol] 0.04 10*3/uL Normal <0.10 [facility] Comment on above: Order Comment: Speci men Type: BLOOD SPECIMENOrdering Facility: [facility] Address: [address] [place] [address] Performed By: #### 5 5454-3, 67259-5, 7-7 ####[facility] LABCLIA [id number] [place] [address] [place] Immature granulocytes/100 WBC (Bld) 0.5 % Normal [facility] Comment on above: Order Comment: Speci men Type: BLOOD SPECIMENOrdering Facility: [facility] Address: [address] [place] [address] Performed By: #### 5 5454-3, 52671-9, 4537-7 ####[facility] LABCLIA [id number] [place] [address] [place] Lymphocytes (Bld) [#/Vol] 2.13 10*3/uL Normal 1.00-4.00 [facility] Comment on above: Order Comment: Speci men Type: BLOOD SPECIMENOrdering Facility: [facility] Address: [address] [place] [address] Performed By: #### 5 5454-3, 68812-1, 7-7 ####[facility] LABCLIA [id number] [place] [address] [place] Lymphocytes/100 WBC (Bld) 25.0 % Normal [facility] Comment on above: Order Comment: Speci men Type: BLOOD SPECIMENOrdering Facility: [facility] Address: [address] [place] [address] Performed By: #### 5 5454-3, 06257-3, 4537-7 ####[facility] LABCLIA [id number] [place] [address] [place] MCH (RBC) [Entitic mass] 29.4 pg Normal 26.0-34.0 [facility] Comment on above: Order Comment: Speci men Type: BLOOD SPECIMENOrdering Facility: [facility] Address: [address] [place] [address] Performed By: #### 5 5454-3, 22500-7, 4537-7 ####[facility] LABCLIA [id number] [place] [address] [place] MCHC (RBC) [Mass/Vol] 32.9 g/dL Normal 30.5-36.0 [facility] Comment on above: Order Comment: Speci men Type: BLOOD SPECIMENOrdering Facility: [facility] Address: [address] [place] [address] Performed By: #### 5 5454-3, 18010-6, 453-7 ####[facility] LABIA [id number] [place] [address] [place] MCV (RBC) [Entitic vol] 89.4 fL Normal 80.0-100.0 [facility] Comment on above: Order Comment: Speci men Type: BLOOD SPECIMENOrdering Facility: [facility] Address: [address] [place] [address] Performed By: #### 5 5454-3, 83614-7, 4537-7 ####[facility] LABIA [id number] [place] [address] [place] Monocytes (Bld) [#/Vol] 0.57 10*3/uL Normal <0.87 [facility] Comment on above: Order Comment: Speci men Type: BLOOD SPECIMENOrdering Facility: [facility] Address: [address] [place] [address] Performed By: #### 5 5454-3, 52202-4, 4537-7 ####[facility] LABIA [id number] [place] [address] [place] Monocytes/100 WBC (Bld) 6.7 % Normal [facility] Comment on above: Order Comment: Speci men Type: BLOOD SPECIMENOrdering Facility: [facility] Address: [address] [place] [address] Performed By: #### 5 5454-3, 90841-3, 7-7 ####[facility] LABCLIA [id number] [place] [address] [place] Neutrophils (Bld) [#/Vol] 5.56 10*3/uL Normal 1.45-7.50 [facility] Comment on above: Order Comment: Speci men Type: BLOOD SPECIMENOrdering Facility: [facility] Address: [address] [place] [address] Performed By: #### 5 5454-3, 88912-3, 4536-7 ####[facility] LABIA [id number] [place] [address] [place] Neutrophils/100 WBC (Bld) 65.3 % Normal [facility] Comment on above: Order Comment: Speci men Type: BLOOD SPECIMENOrdering Facility: [facility] Address: [address] [place] [address] Performed By: #### 5 5454-3, 65366-9, 4536-7 ####[facility] LABCLIA [id number] [place] [address] [place] Nucleated RBC (Bld) [#/Vol] 10*3/uL Normal <0.01 [facility] Comment on above: Order Comment: Speci men Type: BLOOD SPECIMENOrdering Facility: [facility] Address: [address] [place] [address] Performed By: #### 5 5454-3, 57315-9, 4536-7 ####[facility] LABIA [id number] [place] [address] [place] Nucleated RBC/100 WBC (Bld) [Ratio] 0.0 /100 WBC Normal [facility] Comment on above: Order Comment: Speci men Type: BLOOD SPECIMENOrdering Facility: [facility] Address: [address] [place] [address] Performed By: #### 5 5454-3, 26332-9, 4537-7 ####[facility] LABCLIA [id number] [address] [address] [place] Platelet mean volume (Bld) [Entitic vol] 9.1 fL Normal 9.0-12.7 [facility] Comment on above: Order Comment: Speci men Type: BLOOD SPECIMENOrdering Facility: [facility] Address: [address] [place] [address] Performed By: #### 5 5454-3, 69247-4, 4537-7 ####[facility] LABCLIA [id number] [place] [address] [place] Platelets (Bld) [#/Vol] 333 10*3/uL Normal 150-400 [facility] Comment on above: Order Comment: Speci men Type: BLOOD SPECIMENOrdering Facility: [facility] Address: [address] [place] [address] Performed By: #### 5 5454-3, 58221-5, 4537-7 ####[facility] LABCLIA [id number] [place] [address] [place] RBC (Bld) [#/Vol] 5.17 10*6/uL Normal 4.20-6.00 [facility] Comment on above: Order Comment: Speci men Type: BLOOD SPECIMENOrdering Facility: [facility] Address: [address] [place] [address] Performed By: #### 5 5454-3, 77627-3, 4537-7 ####[facility] LABCLIA [id number] [place] [id number] [place] WBC (Bld) [#/Vol] 8.51 10*3/uL Normal 3.70-11.00 [facility] Comment on above: Order Comment: Speci men Type: BLOOD SPECIMENOrdering Facility: [facility] Address: [address] [place] [address] Performed By: #### 5 5454-3, 94163-8, 4537-7 ####[facility] LABCLIA [id number] [place] [address] [place] CK SerPl-cCncon 06-24-2024 CK [Catalytic activity/Vol] 43 U/L Low 51-298 [facility] Comment on above: Order Comment: Speci men Type: BLOOD SPECIMENOrdering Facility: [facility] Address: [address] [place] [address] Performed By: #### 1 1572-5, 215-6 ####[facility] LABCLIA [id number] [address] [place] CK [Catalytic activity/Vol] 49 U/L Low 51-298 [facility] Comment on above: Order Comment: Speci men Type: BLOOD SPECIMENOrdering Facility: [facility] Address: [address] [place] [address] Performed By: #### 3 016-3, 4498-2, 2157-6, 1987-5, 37456-2, 73481-5, 4485-9 ####[facility] LABCLIA [id number] [place] [address] [place] CRP SerPl-mCncon 06-24-2024 CRP [Mass/Vol] 1.2 mg/dL High <0.9 [facility] Comment on above: Order Comment: Speci men Type: BLOOD SPECIMEN [facility] Address: [address] [place] [address] Performed By: #### L [id number] #### [facility] CLIA [id number] [address] [place] [address] [place] Centromere Ab IF Ql (S)on Centromere Ab Qn (S) <0.2 Normal <1.0 [facility] Comment on above: Order Comment: Speci men Type: BLOOD SPECIMENOrdering Facility: [facility] Address: [address] [place] [address] Result Comment: Anti -centromere antibody is used as in aid in diagnosis of systemic sclerosis. Clinical correlation is required. Test Methodology: Multiplex flow immunoassay. Performed By: #### 5 1775-5, 10846-4, 87970-6, 00757-0, 66476-4, 51628-5, 11678-8, ANAIFR, 74612-8, 11824-5 ####[facility] LABIA [id number] [place] [address] [place] CENTROMERE AB QUAL Negative Normal Negative [facility] Comment on above: Order Comment: Speci men Type: BLOOD SPECIMENOrdering Facility: [facility] Address: [address] [place] [address] Performed By: #### 5 1775-5, 84977-7, 51041-6, 01723-3, 71780-3, 34314-4, 40917-1, ANAIFR, 56778-8, 46469-2 ####[facility] LABIA [id number] [place] [address] [place] Chromatin Ab Qnon 06-24-2024 CHROMATIN AB QUAL Negative Normal Negative [facility] Comment on above: Order Comment: Speci men Type: BLOOD SPECIMENOrdering Facility: [facility] Address: [address] [place] [address] Performed By: #### 5 1775-5, 96487-9, 91625-9, 96888-5, 12509-9, 47789-5, 70422-0, ANAIFR, 48747-8, 21702-0 ####[facility] LABIA [id number] [place] [address] [place] Chromatin Ab SerPl-aCncon Chromatin Ab Qn <0.2 Normal <1.0 [facility] Comment on above: Order Comment: Speci men Type: BLOOD SPECIMENOrdering Facility: [facility] Address: [address] [place] [address] Result Comment: Test Methodology: Multiplex flow immunoassay. Performed By: #### 5 1775-5, 12955-2, 24334-8, 86637-4, 49182-5, 66170-5, 95890-0, ANAIFR, 49677-1, 14338-1 ####[facility] LABCLIA [id number] [place] [address] [place] Comprehensive metabolic 2000 panelon 06-24-2024 Albumin [Mass/Vol] 4.5 g/dL Normal 3.9-4.9 [facility] Comment on above: Order Comment: Speci men Type: BLOOD SPECIMENOrdering Facility: [facility] Address: [address] [place] [address] Performed By: #### 3 016-3, 4498-2, 2157-01, 1987-12, , , 4485-04 ####[facility] LABCLIA [id number] [place] [address] [place] ALP [Catalytic activity/Vol] 83 U/L Normal 38-113 [facility] Comment on above: Order Comment: Speci men Type: BLOOD SPECIMENOrdering Facility: [facility] Address: [address] [place] [address] Performed By: #### 3 016-3, 4498-2, 2157-01, 1987-12, 04651-2, , 4485-04 ####[facility] LABCLIA [id number] [place] [address] [place] ALT [Catalytic activity/Vol] 27 U/L Normal 10-54 [facility] Comment on above: Order Comment: Speci men Type: BLOOD SPECIMENOrdering Facility: [facility] Address: [address] [place] [address] Performed By: #### 3 016-3, 4498-2, 2157-01, 1987-12, 42525-7, 89911-0, 4485-04 ####[facility] LABCLIA [id number] [address] [address] [place] Anion gap [Moles/Vol] 13 mmol/L Normal 8-15 [facility] Comment on above: Order Comment: Speci men Type: BLOOD SPECIMENOrdering Facility: [facility] Address: [address] [place] [address] Performed By: #### 3 016-3, 4498-2, 2157-01, 1987-12, , , 4485-04 ####[facility] LABCLIA [id number] [place] [id number] [place] AST [Catalytic activity/Vol] 21 U/L Normal 14-40 [facility] Comment on above: Order Comment: Speci men Type: BLOOD SPECIMENOrdering Facility: [facility] Address: [address] [place] [address] Performed By: #### 3 016-3, 4498-2, 2157-01, 1987-12, , , 4485-04 ####[facility] LABCLIA [id number] [place] [id number] [place] Bilirubin [Mass/Vol] 0.7 mg/dL Normal 0.2-1.3 [facility] Comment on above: Order Comment: Speci men Type: BLOOD SPECIMENOrdering Facility: [facility] Address: [address] [place], [place] [address] Performed By: #### 3 016-3, 4498-2, 2157-01, 1987-12, , , 4485-04 ####[facility] LABCLIA [id number] [place] [id number] [place] Calcium [Mass/Vol] 9.8 mg/dL Normal 8.5-10.2 [facility] Comment on above: Order Comment: Speci men Type: BLOOD SPECIMENOrdering Facility: [facility] Address: [address] [place] [address] Performed By: #### 3 016-3, 4498-2, 2157-01, 1987-12, , , 4485-04 ####[facility]CLIA [id number] [facility] [address] [address] [place] Chloride [Moles/Vol] 106 mmol/L Normal 98-107 [facility] Comment on above: Order Comment: Speci men Type: BLOOD SPECIMENOrdering Facility: [facility] Address: [address] [place] [address] Performed By: #### 3 016-3, 4498-2, 2157-01, 1987-12, , , 4485-04 ####[facility] LABCLIA [id number] [place] [id number] [place] CO2 [Moles/Vol] 23 mmol/L Normal 22-30 [facility] Comment on above: Order Comment: Speci men Type: BLOOD SPECIMENOrdering Facility: [facility] Address: [address] [place] [address] Performed By: #### 3 016-3, 4498-2, 2157-01, 1987-12, , , 4485-04 ####[facility] LABCLIA [id number] [facility] [place] [id number] [place] Creatinine [Mass/Vol] 0.61 mg/dL Low 0.73-1.22 [facility] Comment on above: Order Comment: Speci men Type: BLOOD SPECIMENOrdering Facility: [facility] Address: [address] [place], [place] [address] Performed By: #### 3 016-3, 4498-2, 2157-01, 1987-12, , , 4485-04 ####[facility] LABCLIA [id number] [facility] [place] [id number] [place] Creatinine and Glomerular filtration rate.predicted panel (S/P/Bld) 120 mL/min/1.73m??? Normal >=60 [facility] Comment on above: Order Comment: Deborah finley Type: BLOOD SPECIMENOrdering Facility: [facility] Address: [address] [place] [address] Result Comment: Alexa mated Glomerular Filtration Rate [...] By: #### 3 016-3, 4498-2, 2157-01, 1987-12, 59294-4, , 4485-04 ####[facility] LABCLIA [id number] [place] [address] [place] Glucose [Mass/Vol] 127 mg/dL High 74-99 [facility] Comment on above: Order Comment: Deborah finley Type: BLOOD SPECIMENOrdering Facility: [facility] Address: [address] [place] [address] Result Comment: The [place] [employer] (ADA) provides guidance for cutoff [...] Standards of Medical Care in Diabetes 2016, [place] [employer]. Diabetes Care. 2016.39(Suppl 1). Performed By: #### 3 016-3, 4498-2, 2157-01, 1987-12, 05723-4, 70795-1, 4485-04 ####[facility] LABCLIA [id number] [address] [address] [place] Potassium [Moles/Vol] 3.8 mmol/L Normal 3.7-5.1 [facility] Comment on above: Order Comment: Speci men Type: BLOOD SPECIMENOrdering Facility: [facility] Address: [address] [place], [place] [address] Performed By: #### 3 016-3, 4498-2, 2157-01, 1987-12, , , 4485-04 ####[facility] LABCLIA [id number] [address] [address] [place] Protein [Mass/Vol] 7.5 g/dL Normal 6.3-8.0 [facility] Comment on above: Order Comment: Speci men Type: BLOOD SPECIMENOrdering Facility: [facility] Address: [address] [place] [address] Performed By: #### 3 016-3, 4498-2, 2157-01, 1987-12, , , 4485-04 ####[facility] LABCLIA [id number] [place] [id number] [place] Sodium [Moles/Vol] 142 mmol/L Normal 136-144 [facility] Comment on above: Order Comment: Speci men Type: BLOOD SPECIMENOrdering Facility: [facility] Address: [address] [place], [place] [address] Performed By: #### 3 016-3, 4498-2, 2157-01, 1987-12, , , 4485-04 ####[facility] LABCLIA [id number] [address] [address] [place] Urea nitrogen [Mass/Vol] 7 mg/dL Low 9-24 [facility] Comment on above: Order Comment: Speci men Type: BLOOD SPECIMENOrdering Facility: [facility] Address: [address] [place], [place] [address] Performed By: #### 3 016-3, 4498-2, 2157-6, 1987-5, 65782-0, 07470-3, 4485-9 ####[facility] LABCLIA [id number] [place] [address] [place] Cyclic citrullinated peptide IgG Qnon 06-24-2024 CCP ANTIBODY IGG QUALITATIVE Positive Abnormal Negative [facility] Comment on above: Order Comment: Speci men Type: BLOOD SPECIMEN [facility] Address: [address] [place] [address] Performed By: #### L [id number] #### [facility] CLIA [id number] [address] [place] [address] [place] DNA double strand Ab IA Qn ( S)on 06-24-2024 DNA ANTIBODY 81 IU/mL Normal <=200 [facility] Comment on above: Order Comment: Speci men Type: BLOOD SPECIMENOrdering Facility: [facility] Address: [address] [place] [address] Result Comment: Nega tive: <200 IU/mL Equivocal: 201-300 IU/mL Moderate Positive: 301-800 IU/mL Strong Positive: >801 IU/mL Performed By: #### 5 1775-5, 04956-0, 23847-6, 05287-3, 39070-7, 04599-4, 90588-8, ANAIFR, 63573-7, 99288-8 ####[facility] LABCLIA [id number] [address] [place] DNA ANTIBODY QUALITATIVE INTERPRETATION Negative Normal Negative [facility] Comment on above: Order Comment: Speci men Type: BLOOD SPECIMENOrdering Facility: [facility] Address: [address] [place] [address] Performed By: #### 5 1775-5, 25920-9, 72403-6, 41573-9, 75495-6, 06932-6, 40566-2, ANAIFR, 18511-1, 81005-8 ####[facility] LABCLIA [id number] [address] [address] [place] ED NOTEon 06-24-2024 ED NOTE HNO ID: [id number] Author: WINTER WILSON, FERNANDA Service: Emergency Medicine Author Type: Registered Nurse Type: ED Notes Filed: 06/24/2024 14:05 Note Text: Pt reports symptoms since December. Reports he brooks been having increasing numbness/weakness to all his extremities. Normal [facility] ED PROV NOTEon 06-24-2024 ED PROV NOTE HNO ID: [id number] Author: DI SOSA DO, DPM Service: Emergency [...] C2-3 and C3-4. He was seen in [facility] who obtained MRI brain and c-spine in [...] recommended he seek a second opinion at [facility]'s rheumatology center. He was most recently seen by neurology in April who recommended repeating an EMG and to follow up in 3 months. 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 Of note, patient has been unable to [...] is intact (more content not included)... Normal [facility] ED Triage Noteon 06-24-2024 ED Triage Note HNO ID: [id number] Author: DAVE PAGAN MD Service: Emergency Medicine [...] EMG normal. Patient was recently seen at [facility] and then transferred to [facility] 03/30/2024 for progressive bilateral distal upper extremity [...] Rate, Westergren SIGNATURE: Dave Pagan MD Normal [facility] VIJAY Jo1 Ab Ser-aCncon 2023 Ivanna-1 extractable nuclear Ab Qn (S) <0.2 Normal <1.0 [facility] Comment on above: Order Comment: Deborah finley Type: BLOOD SPECIMENOrdering Facility: [facility] Address: [address] [place] [address] Performed By: #### 5 1775-5, 11592-1, 74590-4, 06336-8, 02290-2, 52895-7, 75068-1, ANAIFR, 94776-0, 58618-3 ####[facility] LABCLIA [id number] [place] [address] [place] VIJAY VEGETABLE FARMER Ab Ser-aCncon 2023 Ribonucleoprotein extractable nuclear Ab Qn (S) <0.2 Normal <1.0 [facility] Comment on above: Order Comment: Speci men Type: BLOOD SPECIMENOrdering Facility: [facility] Address: [address] [place] [address] Performed By: #### 5 1775-5, 51435-4, 89256-5, 18220-0, 21410-7, 23951-8, 61219-8, ANAIFR, 07785-3, 44632-4 ####[facility] LABCLIA [id number] [place] [address] [place] Ribonucleoprotein extractable nuclear Ab Qn (S) 0.5 AI Normal <1.0 [facility] Comment on above: Order Comment: Speci men Type: BLOOD SPECIMENOrdering Facility: [facility] Address: [address] [place] [address] Performed By: #### 5 1775-5, 15248-1, 37357-4, 45924-9, 26180-0, 77844-6, 38641-2, ANAIFR, 78625-6, 78634-6 ####[facility] LABCLIA [id number] [place] [address] [place] VIJAY SM IgG Ser-aCncon 2023 Kennedy extractable nuclear IgG Qn (S) <0.2 Normal <1.0 [facility] Comment on above: Order Comment: Speci men Type: BLOOD SPECIMENOrdering Facility: [facility] Address: [address] [place] [address] Performed By: #### 5 1775-5, 06677-9, 81260-5, 74804-0, 10618-9, 94456-0, 38977-4, ANAIFR, 05301-7, 09973-0 ####[facility] LABCLIA [id number] [place] [address] [place] VIJAY SS-A Ab Ser-aCncon 06-24 Sjogrens syndrome-A extractable nuclear Ab Qn (S) <0.2 Normal <1.0 [facility] Comment on above: Order Comment: Speci men Type: BLOOD SPECIMENOrdering Facility: [facility] Address: [address] [place] [address] Result Comment: Test Methodology: Multiplex flow immunoassay. Performed By: #### 5 1775-5, 60512-7, 42264-3, 74854-5, 75203-3, 18770-5, 44314-2, ANAIFR, 40015-4, 04892-3 ####[facility] LABIA [id number] [place] [address] [place] VIJAY SS-B Ab Ser-aCncon 06-24 Sjogrens syndrome-B extractable nuclear Ab Qn (S) <0.2 Normal <1.0 [facility] Comment on above: Order Comment: Speci men Type: BLOOD SPECIMENOrdering Facility: [facility] Address: [address] [place] [address] Result Comment: Anti -SSB (anti-La) antibody is used as an aid in diagnosis of a variety of systemic autoimmune diseases, especially for Sjogren's syndrome and systemic lupus erythematosus. Clinical correlation is required. Test Methodology: Multiplex flow immunoassay. Performed By: #### 5 1775-5, 43298-0, 08439-3, 11537-2, 41276-2, 57344-4, 33028-7, ANAIFR, 23474-8, 33288-9 ####[facility] LABIA [id number] [place] [address] [place] ESR Westergren method (Bld) [Velocity]on 06-24-2024 ESR (Bld) [Velocity] 8 mm/h Normal 0-15 [facility] Comment on above: Order Comment: Speci men Type: BLOOD SPECIMENOrdering Facility: [facility] Address: [address] [place] [address] Performed By: #### 5 5454-3, 56595-9, 4537-7 ####[facility] LABIA [id number] [place] [address] [place] HISTORY PHYSICALon HISTORY PHYSICAL HNO ID: [id number] Author: LELAND DANG MD Service: General Internal [...] AM Primary Care Physician: Cecy Hernandez CNP, [employer] COVERAGE: [facility] COVERAGE: Days: [phone], please page Estiven Palmer for patient issues. [...] the wall. 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 [...] he has looked for medical assistance. A mortarman recently informed him that he does not have rheumatoid arthritis, despite having been diagnosed with it decades ago. 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 He was seen in [facility] who obtained MRI brain and c-spine in [...] recommended he seek a second opinion at [facility]'s rheumatology center. 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 Social history: Patient has been unable to [...] file. No (more content not included)... Normal [facility] HbA1c (Bld)on 06-24-2024 Average glucose Estimated from glycated hemoglobin (Bld) [Mass/Vol] 134 mg/dL Normal [facility] Comment on above: Order Comment: Deborah finley Type: BLOOD SPECIMENOrdering Facility: [facility] Address: [address] [place] [address] Result Comment: eAG: (Estimated average glucose) is a calculated value from HgbA1c and is litigation claim representative of the average blood glucose level in the last 2-3 month period. Performed By: #### 5 5454-3, 82166-7, 4537-7 ####[facility] LABCLIA [id number] [place] [address] [place] HbA1c (Bld) [Mass fraction] 6.3 % High 4.3-5.6 [facility] Comment on above: Order Comment: Joeli malia Type: BLOOD SPECIMENOrdering Facility: [facility] Address: [address] [place] [address] Result Comment: Ammaciej ican Diabetes Association guidelines indicate that patients with HgbA1c in the range 5.7-6.4% are at increased risk for development of diabetes, and intervention by lifestyle modification may be beneficial. HgbA1c greater or equal to 6.5% is considered diagnostic of diabetes. Performed By: #### 5 5454-3, 07150-8, 4537-7 ####[facility] [id number] [address] [address] [place] Ivanna-1 extractable nuclear Ab Qn (S)on 06-24-2024 IVANNA 1 ANTIBODY QUAL Negative Normal Negative [facility] Comment on above: Order Comment: Speci men Type: BLOOD SPECIMENOrdering Facility: [facility] Address: [address] [place] [address] Result Comment: Anti -IVANNA-1 antibody is used as an aid in diagnosis of polymyositis and dermatomyositis especially with pulmonary involvement. A negative result cannot rule out polymyositis or dermatomyositis. Clinical correlation is required. Test Methodology: Multiplex flow immunoassay. Performed By: #### 5 1775-5, 98025-5, 13801-9, 54384-2, 48208-0, 54292-9, 71866-9, ANAIFR, 69553-2, 01632-2 ####[facility] [id number] [address] [address] [place] Magnesium SerPl-mCncon 06-24 Magnesium [Mass/Vol] 1.8 mg/dL Normal 1.7-2.3 [facility] Comment on above: Order Comment: Speci men Type: BLOOD SPECIMENOrdering Facility: [facility] Address: [address] [place], [place] [address] Performed By: #### 3 016-3, 4498-2, 2157-6, 1987-5, 37603-9, 90707-8, 4485-9 ####[facility] [id number] [address] [address] [place] NURSING PROGon 06-24-2024 NURSING PROG HNO ID: [id number] Author: LINDY DUCKWORTH RN Service: ? Author Type: Registered Nurse Type: Nursing Progress Note Filed: 06/24/2024 19:04 Note Text: Transfer Note: PATIENT NAME: Bhumika Umana Patient Location: [place] [address]/[facility] Room: [place] [address] Patient transferred into room/unit [facility]- in stable condition. Actions taken: No futher actions taken at this time. Will continue to monitor and check with patient. Normal [facility] Reagin and Treponema pallidu m IgG and IgM [Interp]on 06-24-2024 T. pallidum IgG+IgM IA Ql (S) Non-Reactive Normal Nonreactive [facility] Comment on above: Order Comment: Speci men Type: BLOOD SPECIMEN [facility] Address: [address] [place] [address] Performed By: #### L [id number] #### [facility] CLIA [id number] [address] [place] [address] [place] Reagin+T pallidum IgG+IgM Se rPl-Impon 06-24-2024 Reagin and Treponema pallidum IgG and IgM [Interp] Cannot exclude recent Treponemal infection if specimen collected within 7-10 days after appearance of suspect lesions or 2-3 weeks after an exposure. Clinical correlation is required. Normal [facility] Comment on above: Order Comment: Deborah finley Type: BLOOD SPECIMEN [facility] Address: [address] [place] [address] Performed By: #### L [id number] #### [facility] CLIA [id number] [address] [place] [address] [place] Rheumatoid fact SerPl-aCncon 06-24-2024 Rheumatoid factor Qn 17 [IU]/mL High <16 [facility] Comment on above: Order Comment: Joeli malia Type: BLOOD SPECIMENOrdering Facility: [facility] Address: [address] [place] [address] Performed By: #### 1 1572-5, 2157-6 ####[facility] LABCLIA [id number] [place] [address] [place] Ribonucleoprotein extractabl e nuclear Ab Qn (S)on 06-24-2024 ANTI-VEGETABLE FARMER QUAL Negative Normal Negative [facility] Comment on above: Order Comment: Speci men Type: BLOOD SPECIMENOrdering Facility: [facility] Address: [address] [place] [address] Performed By: #### 5 1775-5, 83680-7, 96990-4, 95338-9, 46002-9, 08883-8, 94559-1, ANAIFR, 34017-7, 22909-5 ####[facility] LABCLIA [id number] [place] [address] [place] RIBOSOMAL VEGETABLE FARMER QUAL Negative Normal Negative [facility] Comment on above: Order Comment: Speci men Type: BLOOD SPECIMENOrdering Facility: [facility] Address: [address] [place] [address] Result Comment: Anti -Ribosomal RNA (Ribosomal P) antibody is used as an aid in diagnosis of systemic autoimmune diseases especially systemic lupus erythematosus and mixed connective tissue disease. Cross-reactivity with Anti-kennedy antibody is not uncommon. Clinical correlation is required. Test Methodology: Multiplex flow immunoassay. Performed By: #### 5 1775-5, 03719-9, 00926-9, 41086-5, 09298-5, 59739-9, 60745-8, ANAIFR, 23855-0, 59153-3 ####[facility] LABCLIA [id number] [place] [id number] [place] SCL-70 extractable nuclear I gG IA Qn (S)on 06-24-2024 SCLERODERMA AB QUAL Negative Normal Negative [facility] Comment on above: Order Comment: Speci men Type: BLOOD SPECIMENOrdering Facility: [facility] Address: [address] [place] [address] Performed By: #### 5 1775-5, 30094-9, 60447-8, 24302-0, 61924-6, 00925-6, 64134-8, ANAIFR, 35975-2, 58420-9 ####[facility] LABCLIA [id number] [place] [address] [place] SCLERODERMA IGG AB <0.2 Normal <1.0 [facility] Comment on above: Order Comment: Speci men Type: BLOOD SPECIMENOrdering Facility: [facility] Address: [address] [place] [address] Result Comment: Scl- 70/Scleroderma antibody test is used as an aid in diagnosis of systemic sclerosis especially the diffuse cutaneous form. A negative result cannot rule out systemic sclerosis. The final interpretation should consider clinical picture and other test results such as anti-centromere antibody. Test Methodology: Multiplex flow immunoassay. Performed By: #### 5 1775-5, 09951-1, 15633-7, 24808-2, 74501-5, 35518-3, 42871-6, ANAIFR, 34183-9, 82502-3 ####[facility] LABCLIA [id number] [place] [address] [place] Sjogrens syndrome-A extracta ble nuclear Ab Qn (S)on 06-24-2024 SSA ANTIBODY QUAL Negative Normal Negative [facility] Comment on above: Order Comment: Speci men Type: BLOOD SPECIMENOrdering Facility: [facility] Address: [address] [place] [address] Performed By: #### 5 1775-5, 12474-8, 90014-1, 10823-2, 33827-9, 07752-5, 26258-0, ANAIFR, 70936-8, 69071-7 ####[facility] LABCLIA [id number] [place] [address] [place] Sjogrens syndrome-B extracta ble nuclear Ab Qn (S)on 06-24-2024 SSB ANTIBODY QUAL Negative Normal Negative [facility] Comment on above: Order Comment: Speci men Type: BLOOD SPECIMENOrdering Facility: [facility] Address: [address] [place] [address] Performed By: #### 5 1775-5, 68518-8, 23611-1, 55658-1, 52818-9, 63104-7, 43693-0, ANAIFR, 26399-2, 75704-8 ####[facility] LABIA [id number] [place] [id number] [place] Kennedy extractable nuclear Ig G Qn (S)on 06-24-2024 SM ANTIBODY QUAL Negative Normal Negative [facility] Comment on above: Order Comment: Speci men Type: BLOOD SPECIMENOrdering Facility: [facility] Address: [address] [place] [address] Result Comment: Anti -Sm (Kennedy) antibody is used as an aid in diagnosis of systemic lupus erythematosus and its presence is associated with renal disease. A negative result cannot rule out systemic lupus erythematosus. Clinical correlation is required. Test Methodology: Multiplex flow immunoassay. Performed By: #### 5 1775-5, 43345-1, 79465-6, 10683-5, 96168-0, 23867-2, 72550-6, ANAIFR, 06923-4, 20824-9 ####[facility] LABIA [id number] [place] [id number] [place] TSH SerPl-aCncon 06-24-2024 TSH Qn 1.040 m[IU]/L Normal 0.270-4.200 [facility] Comment on above: Order Comment: Joeli malia Type: BLOOD SPECIMENOrdering Facility: [facility] Address: [address] [place] [address] Performed By: #### 3 016-3, 4498-2, 2157-6, 1987-5, 13091-3, 86418-8, 4485-9 ####[facility] LABIA [id number] [place] [id number] [place] VITAMIN B12 W/REFLEXon 06-24 Cobalamin (Vitamin B12) [Mass/Vol] 570 pg/mL Normal 232-1245 [facility] Comment on above: Order Comment: Speci men Type: BLOOD SPECIMEN [facility] Address: [address] [place] [address] Performed By: #### L [id number] #### [facility] CLIA [id number] [address] [place] [address] [place] cCP IgG SerPl-aCncon 024 Cyclic citrullinated peptide IgG Qn >250 High <20 [facility] Comment on above: Order Comment: Speci men Type: BLOOD SPECIMEN [facility] Address: [address] [place] [address] Performed By: #### L [id number] #### [facility] CLIA [id number] [address] [place] [address] [place] CBC AND AUTO DIFFon 06-12-20 24 ABSOLUTE BASOPHIL 0.0 X10E9/L Normal 0.0-0.2 [facility] Comment on above: Performed By: #### C POOL, 67369-7, CMP, 1987-12, 4485-04, 449-2, ENAP #### [facility] ([id number]) [address], [address] [place] [address] ABSOLUTE NEUTROPHIL 5.5 X10E9/L Normal 1.5-6.6 [facility] Comment on above: Performed By: #### C POOL, 87494-1, CMP, 1987-12, 4485-04, 4498-2, ENAP #### [facility] ([id number]) [address], [address] [place] [address] Basophils/100 WBC (Bld) 0.4 % Normal [facility] Comment on above: Performed By: #### C POOL, 13058-2, CMP, 1987-12, 4485-04, 4492, ENAP #### [facility] ([id number]) [address], [address] [place] [address] Eosinophils (Bld) [#/Vol] 0.2 10*3/uL Normal 0.0-0.4 [facility] Comment on above: Performed By: #### C POOL, 33332-1, CMP, 1987-12, 4485-04, 449-2, ENAP #### [facility] ([id number]) [address] [place] [address] Eosinophils/100 WBC (Bld) 2.8 % Normal [facility] Comment on above: Performed By: #### C POOL, 23507-6, CMP, 1987-12, 4485-04, 449-2, ENAP #### [facility] ([id number]) [address], [facility] [address] [place] [address] Erythrocyte distribution width (RBC) [Ratio] 13.2 % Normal 11.5-15.0 [facility] Comment on above: Performed By: #### C POOL, 70534-2, [facility], 1987-12, 4485-04, 2, ENAP #### [facility] ([id number]) [address], [facility] [address] [place] [address] Hematocrit (Bld) [Volume fraction] 45.8 % Normal 39-49 [facility] Comment on above: Performed By: #### C POOL, 86446-7, CMP, 1987-12, 4485-04, 449-2, ENAP #### [facility] ([id number]) [address] [address] [place] [address] Hemoglobin (Bld) [Mass/Vol] 14.8 g/dL Normal 13.0-17.0 [facility] Comment on above: Performed By: #### C POOL, 75021-2, CMP, 1987-12, 4485-04, 449-2, ENAP #### [facility] ([id number]) [address] [address] Lymphocytes (Bld) [#/Vol] 1.7 10*3/uL Normal 1.0-3.5 [facility] Comment on above: Performed By: #### C POOL, 44851-3, CMP, 1987-12, 4485-04, 449-2, ENAP #### [facility] ([id number]) [address] [place] [address] Lymphocytes/100 WBC (Bld) 20.7 % Normal [facility] Comment on above: Performed By: #### C POOL, 63224-9, CMP, 1987-12, 4485-04, 4497-2, ENAP #### [facility] ([id number]) [address] [place] [address] MCH (RBC) [Entitic mass] 28.8 pg Normal 27-34 [facility] Comment on above: Performed By: #### C POOL, 12353-0, CMP, 1987-12, 4485-04, 2, ENAP #### [facility] ([id number]) [address] [place] [address] MCHC (RBC) [Mass/Vol] 32.4 g/dL Normal 32-36 [facility] Comment on above: Performed By: #### C POOL, 51839-0, CMP, 1987-12, 4485-04, 4492, ENAP #### [facility] ([id number]) [address] [place] [address] MCV (RBC) [Entitic vol] 89 fL Normal 80-100 [facility] Comment on above: Performed By: #### C POOL, 76094-5, CMP, 1987-12, 4485-04, 4497-2, ENAP #### [facility] ([id number]) [address] [address] [place] [address] Monocytes (Bld) [#/Vol] 0.6 10*3/uL Normal 0-0.9 [facility] Comment on above: Performed By: #### Luke LANZA, 39327-6, CMP, 1987-12, 4485-04, 4498-2, ENAP #### [facility] ([id number]) [address] [place] [address] Monocytes/100 WBC (Bld) 7.4 % Normal [facility] Comment on above: Performed By: #### C BCA, 25355-0, CMP, 1987-12, 4485-04, 4498-2, ENAP #### [facility] ([id number]) [address] [place] [address] Neutrophils/100 WBC (Bld) 68.7 % Normal [facility] Comment on above: Performed By: #### C BCA, 98612-7, CMP, 1987-12, 4485-04, 4498-2, ENAP #### [facility] ([id number]) [address] [place] [address] Platelet mean volume (Bld) [Entitic vol] 7.4 fL Normal 7-12 [facility] Comment on above: Performed By: #### C BCA, 40017-6, CMP, 1987-12, 4485-04, 4498-2, ENAP #### [facility] ([id number]) [address], [address] [place] [address] Platelets (Bld) [#/Vol] 314 10*3/uL Normal 150-450 [facility] Comment on above: Performed By: #### C BCA, 53457-7, CMP, 1987-12, 4485-04, 4498-2, ENAP #### [facility] ([id number]) [address] [place] [address] RBC COUNT 5.14 X10E12/L Normal 4.10-5.70 [facility] Comment on above: Performed By: #### C BCA, 12879-0, CMP, 1987-12, 4485-04, 4498-2, ENAP #### [facility] ([id number]) [address] [place] [address] WBC (Bld) [#/Vol] 8.1 10*3/uL Normal 4.0-11.0 [facility] Comment on above: Performed By: #### C BCA, 28346-0, CMP, 1987-12, 4484-9, 4498-2, ENAP #### [facility] ([id number]) [address], [address] [place] [address] CK [Catalytic activity/Vol]o n 06-12-2024 CPK 54 U/L Normal 24-195 [facility] Comment on above: Performed By: #### C BCA, 68609-9, CMP, 1987-12, 4484-9, 4498-2, ENAP #### [facility] ([id number]) [address], [address] [place] [address] COMPREHENSIVE METABOLIC PANE Rayshawn 06-12-2024 Albumin [Mass/Vol] 4.4 g/dL Normal 3.2-5.3 [facility] Comment on above: Performed By: #### C BCA, 52761-2, CMP, 1987-12, 9, 4498-2, ENAP #### [facility] ([id number]) [address], [address] [place] [address] ALP [Catalytic activity/Vol] 71 U/L Normal 39-130 [facility] Comment on above: Performed By: #### C BCA, 41430-5, CMP, 1987-12, 4484-9, 4498-2, ENAP #### [facility] ([id number]) [address], [address] [place] [address] ALT [Catalytic activity/Vol] 21 U/L Normal 0-40 [facility] Comment on above: Performed By: #### C BCA, 05086-6, CMP, 1987-12, 9, 4498-2, ENAP #### [facility] ([id number]) [address], [address] [place] [address] Anion gap [Moles/Vol] 10 mmol/L Normal 5-15 [facility] Comment on above: Performed By: #### C BCA, 38353-3, CMP, 1987-12, 4485-04, 4498-2, ENAP #### [facility] ([id number]) [address], [address] [place] [address] AST [Catalytic activity/Vol] 22 U/L Normal 0-41 [facility] Comment on above: Performed By: #### C BCA, 86976-3, CMP, 1987-12, 4485-04, 4498-2, ENAP #### [facility] ([id number]) [address], [address] [place] [address] Bilirubin [Mass/Vol] 1.0 mg/dL Normal 0.3-1.2 [facility] Comment on above: Performed By: #### C BCA, 48697-5, CMP, 1987-12, 4485-04, 4498-2, ENAP #### [facility] ([id number]) [address], [address] [place] [address] Calcium [Mass/Vol] 9.2 mg/dL Normal 8.5-10.5 [facility] Comment on above: Performed By: #### C BCA, 39144-0, CMP, 1987-12, 4485-04, 4498-2, ENAP #### [facility] ([id number]) [address], [address] [place] [address] Chloride [Moles/Vol] 102 mmol/L Normal 98-109 [facility] Comment on above: Performed By: #### C BCA, 80963-3, CMP, 1987-12, 4485-04, 449-2, ENAP #### [facility] ([id number]) [address], [address] [place] [address] CO2 [Moles/Vol] 25 mmol/L Normal 22-32 [facility] Comment on above: Performed By: #### C BCA, 29347-9, CMP, 1987-12, 4485-04, 449-2, ENAP #### [facility] ([id number]) [address], [address] [place] [address] Creatinine [Mass/Vol] 0.68 mg/dL Normal 0.60-1.30 [facility] Comment on above: Result Comment: METH OD TRACEABLE TO IDMS STANDARD Performed By: #### C BCA, 18209-9, CMP, 1987-12, 4485-04, 449-2, ENAP #### [facility] ([id number]) [address] [place] [address] eGFR (CKD-EPI) NON-RACE DEPENDENT >90 Normal >59 [facility] Comment on above: Result Comment: Reported eGFR is based on the CKD-EPI 2020 equation that does not use a race coefficient. Performed By: #### C BCA, 47437-7, [facility], 1987-12, 4485-04, 449-2, ENAP #### [facility] ([id number]) [address], [address] [place] [address] Glucose [Mass/Vol] 118 mg/dL High 65-99 [facility] Comment on above: Performed By: #### C BCA, 49029-3, CMP, 1987-12, 4485-04, 449-2, ENAP #### [facility] ([id number]) [address], [address] [place] [address] Potassium [Moles/Vol] 3.8 mmol/L Normal 3.5-5.0 [facility] Comment on above: Performed By: #### C BCA, 97513-4, CMP, 1987-12, 4485-04, 4497-2, ENAP #### [facility] ([id number]) [address], [address] [place] [address] Protein [Mass/Vol] 7.5 g/dL Normal 6.0-8.0 [facility] Comment on above: Performed By: #### C BCA, 85071-2, CMP, 1987-12, 4484-9, 4498-2, ENAP #### [facility] ([id number]) [address], [address] [place] [address] Sodium [Moles/Vol] 137 mmol/L Normal 134-146 [facility] Comment on above: Performed By: #### C BCA, 62522-3, CMP, 1987-12, 4485-04, 4498-2, ENAP #### [facility] ([id number]) [address], [address] [place] [address] Urea nitrogen [Mass/Vol] 13 mg/dL Normal 5-23 [facility] Comment on above: Performed By: #### C BCA, 93309-6, CMP, 1987-12, 4485-04, 4498-2, ENAP #### [facility] ([id number]) [address], [address] [place] [address] CRP [Mass/Vol]on 06-12-2024 C REACTIVE PROTEIN 0.7 mg/dL Normal 0.000-0.744 [facility] Comment on above: Performed By: #### C BCA, 09641-1, CMP, 1987-12, 4485-04, 4498-2, ENAP #### [facility] ([id number]) [address] [place] [address] ESR Photometric method (Bld) [Velocity]on 06-12-2024 ESR, ERYTHROCYTE SEDIMENTATION RATE 15 mm/h Normal 0-15 [facility] Comment on above: Performed By: #### C BCA, 37990-3, CMP, 1987-12, 4485-04, 4498-2, ENAP #### [facility] ([id number]) [address] [place] [address] LDH [Catalytic activity/Vol] on 06-12-2024 LDH 181 U/L Normal 100-235 [facility] Comment on above: Performed By: #### C BCA, 87049-2, CMP, 1988-5, 4485-9, 4498-2, ENAP #### [facility] ([id number]) [address] [place] [address] Laboratory comment Bj (Repo rt)on 06-12-2024 UNLISTED LAB TEST Sent to reference lab Normal [facility] Comment on above: Performed By: #### G O #### [employer] [facility] [employer] ([id number]) [address] [facility] GENERIC ORDERon TEST NAME HMGCR 3 HYDROXY 3 METHYLGLUTARYL COENZYME A HMG COA REDUCTASE SERUM Normal [facility] Comment on above: Performed By: #### G O #### [employer] [facility] [employer] ([id number]) [address] [facility], TEST RESULT SEE COMMENTS 11:50 PM Normal [facility] Comment on above: Result Comment: NOTE Test Result Flag Unit RefValue -- HMG-CoA Reductase Ab, S <20.0 CU <20.0 Test Performed by: [address] [address] Cloth Cutter: Hussein Khan Ph.D.; CLIA# [id number] Performed By: #### G O #### [employer] [facility] [employer] ([id number]) [address] [facility], TSH Qnon 06-12-2024 TSH 1.23 uIU/mL Normal 0.49-4.67 [facility] Comment on above: Performed By: #### C POOL, 05224-9, [facility], 1987-12, 4485-04, 449-2, ENAP #### [facility] ([id number]) [address] [place] [address] VITAMIN B12on 06-12-2024 Cobalamin (Vitamin B12) [Mass/Vol] 335 pg/mL Normal 180-914 [facility] Comment on above: Performed By: #### C POOL, 25870-5, [facility], 1987-12, 4485-04, 4492, ENAP #### [facility] ([id number]) [address], [address] [place] [address] Vitamin D+Metabolites [Mass/ Vol]on 06-12-2024 VITAMIN D 25 HYD TOT 12.5 ng/mL Low 30-100 [facility] Comment on above: Result Comment: Vitamin D status 25 [place] Vitamin D Deficiency <20 ng/mL Insufficiency 20-29 ng/mL Sufficiency 30-100 ng/mL Toxicity >100 ng/mL NOTE: A pediatric reference range has not been established by the electronics hardware design engineer of this kit. The [place] [employer] recommends a Vitamin D level of = or >20ng/mL in infants and children. Performed By: #### C POOL, 76905-4, [facility], 1987-12, 4485-04, 4498-2, ENAP #### [facility] ([id number]) [address] [place] [address] US SOFT TISS HEAD NECKon US SOFT [...] Berg MD on 06/10/2024 12:[address] [facility] MLR HEMOGLOBIN A1Con 024 Glucose [Mass/Vol] 134 mg/dL [facility] HbA1c (Bld) [Mass fraction] 6.3 % High 4.5 - 6.2 % [facility] Comment on above: ADA RECOMMENDED LIMI T 4.0 - 6.0 ADA THERAPEUTIC TARGET < 7.0 ACTION SUGGESTED > 7.0 Interpretation and review of laboratory results Abnormal [facility] XR OSSEOUS SURVEY LIMITEDon 04-20-2024 XR OSSEOUS [...] King MD on 04/20/2024 7:58 AM Normal [facility] CBC AND AUTO DIFFon 04-17-20 ABSOLUTE BASOPHIL 0.0 X10E9/L Normal 0.0-0.2 [facility] Comment on above: Performed By: #### C BCA, 24499-2, CMP, 1987-12, 4485-04, 449-2, ENAP #### [facility] ([id number]) [address], [address] [place] [address] ABSOLUTE NEUTROPHIL 4.9 X10E9/L Normal 1.5-6.6 [facility] Comment on above: Performed By: #### C BCA, 57532-0, CMP, 1987-12, 4485-04, 449-2, ENAP #### [facility] ([id number]) [address], [address] [place] [address] Basophils/100 WBC (Bld) 0.3 % Normal [facility] Comment on above: Performed By: #### C POOL, 72076-0, CMP, 1987-12, 4485-04, 2, ENAP #### [facility] ([id number]) [address] [place] [address] Eosinophils (Bld) [#/Vol] 0.2 10*3/uL Normal 0.0-0.4 [facility] Comment on above: Performed By: #### C POOL, 59105-8, CMP, 1987-12, 4485-04, 4497-2, ENAP #### [facility] ([id number]) [address], [address] [place] [address] Eosinophils/100 WBC (Bld) 2.5 % Normal [facility] Comment on above: Performed By: #### C BCA, 73652-0, CMP, 1987-12, 4485-04, 2, ENAP #### [facility] ([id number]) [address], [address] [place] [address] Erythrocyte distribution width (RBC) [Ratio] 13.8 % Normal 11.5-15.0 [facility] Comment on above: Performed By: #### C BCA, 29701-6, CMP, 1987-12, 4485-04, 4498-2, ENAP #### [facility] ([id number]) [address], [facility] [address] [place] [address] Hematocrit (Bld) [Volume fraction] 43.2 % Normal 39-49 [facility] Comment on above: Performed By: #### C BCA, 11945-2, CMP, 1987-12, 4485-04, 449-2, ENAP #### [facility] ([id number]) [address], [address] [address] Hemoglobin (Bld) [Mass/Vol] 14.8 g/dL Normal 13.0-17.0 [facility] Comment on above: Performed By: #### C POOL, 95986-3, CMP, 1987-12, 4485-04, 449-2, ENAP #### [facility] ([id number]) [address], [address] [address] Lymphocytes (Bld) [#/Vol] 2.7 10*3/uL Normal 1.0-3.5 [facility] Comment on above: Performed By: #### C BCA, 62202-7, CMP, 1987-12, 4485-04, 449-2, ENAP #### [facility] ([id number]) [address] [address] Lymphocytes/100 WBC (Bld) 31.7 % Normal [facility] Comment on above: Performed By: #### C BCA, 50070-9, CMP, 1987-12, 4485-04, 4497-2, ENAP #### [facility] ([id number]) [address] [address] MCH (RBC) [Entitic mass] 30.3 pg Normal 27-34 [facility] Comment on above: Performed By: #### C BCA, 29359-4, CMP, 1987-12, 4485-04, 4497-2, ENAP #### [facility] ([id number]) [address], [address] [place] [address] MCHC (RBC) [Mass/Vol] 34.3 g/dL Normal 32-36 [facility] Comment on above: Performed By: #### C BCA, 70359-5, CMP, 1987-12, 4485-04, 4497-2, ENAP #### [facility] ([id number]) [address] [place] [address] MCV (RBC) [Entitic vol] 89 fL Normal 80-100 [facility] Comment on above: Performed By: #### C POOL, 51408-3, CMP, 1987-12, 4485-04, 4497-2, ENAP #### [facility] ([id number]) [address] [place] [address] Monocytes (Bld) [#/Vol] 0.6 10*3/uL Normal 0-0.9 [facility] Comment on above: Performed By: #### C POOL, 21186-0, CMP, 1987-12, 4485-04, 2, ENAP #### [facility] ([id number]) [address] [place] [address] Monocytes/100 WBC (Bld) 7.5 % Normal [facility] Comment on above: Performed By: #### C BCA, 64167-5, CMP, 1987-12, 4485-04, 2, ENAP #### [facility] ([id number]) [address], [address] [place] [address] Neutrophils/100 WBC (Bld) 58.0 % Normal [facility] Comment on above: Performed By: #### C BCA, 50466-6, CMP, 1987-12, 4485-04, 2, ENAP #### [facility] ([id number]) [address], [address] [place] [address] Platelet mean volume (Bld) [Entitic vol] 7.7 fL Normal 7-12 [facility] Comment on above: Performed By: #### C BCA, 43470-2, CMP, 1987-12, 4484-9, 4498-2, ENAP #### [facility] ([id number]) [address], [address] [place] [address] Platelets (Bld) [#/Vol] 330 10*3/uL Normal 150-450 [facility] Comment on above: Performed By: #### C BCA, 19963-6, CMP, 1987-12, 4484-, 4498-2, ENAP #### [facility] ([id number]) [address], [address] [place] [address] RBC COUNT 4.87 X10E12/L Normal 4.10-5.70 [facility] Comment on above: Performed By: #### C BCA, 34542-4, CMP, 1987-12, 4485-04, 4498-2, ENAP #### [facility] ([id number]) [address], [address] [place] [address] WBC (Bld) [#/Vol] 8.4 10*3/uL Normal 4.0-11.0 [facility] Comment on above: Performed By: #### C BCA, 09091-9, CMP, 1987-12, 4485-04, 4498-2, ENAP #### [facility] ([id number]) [address] [place] [address] COMPREHENSIVE METABOLIC PANE Rayshawn 04-17-2024 Albumin [Mass/Vol] 4.4 g/dL Normal 3.2-5.3 [facility] Comment on above: Performed By: #### C BCA, 62092-2, CMP, 1987-12, 4485-04, 4498-2, ENAP #### [facility] ([id number]) [address] [place] [address] ALP [Catalytic activity/Vol] 71 U/L Normal 39-130 [facility] Comment on above: Performed By: #### C BCA, 54646-3, CMP, 1987-12, 9, 4498-2, ENAP #### [facility] ([id number]) [address], [address] [place] [address] ALT [Catalytic activity/Vol] 25 U/L Normal 0-40 [facility] Comment on above: Performed By: #### C BCA, 47350-3, CMP, 1987-12, 4485-04, 4498-2, ENAP #### [facility] ([id number]) [address] [place] [address] Anion gap [Moles/Vol] 12 mmol/L Normal 5-15 [facility] Comment on above: Performed By: #### C BCA, 71525-3, CMP, 1987-12, 4485-04, 4498-2, ENAP #### [facility] ([id number]) [address] [place] [address] AST [Catalytic activity/Vol] 17 U/L Normal 0-41 [facility] Comment on above: Performed By: #### C BCA, 41932-8, CMP, 1987-12, 4485-04, 4498-2, ENAP #### [facility] ([id number]) [address] [place] [address] Bilirubin [Mass/Vol] 0.8 mg/dL Normal 0.3-1.2 [facility] Comment on above: Performed By: #### C BCA, 27029-5, CMP, 1987-12, 4485-04, 4498-2, ENAP #### [facility] ([id number]) [address] [place] [address] Calcium [Mass/Vol] 9.5 mg/dL Normal 8.5-10.5 [facility] Comment on above: Performed By: #### C BCA, 48538-7, CMP, 1987-12, 4485-04, 4498-2, ENAP #### [facility] ([id number]) [address] [place] [address] Chloride [Moles/Vol] 102 mmol/L Normal 98-109 [facility] Comment on above: Performed By: #### C BCA, 07899-7, CMP, 1987-12, 4485-04, 449-2, ENAP #### [facility] ([id number]) [address] [place] [address] CO2 [Moles/Vol] 25 mmol/L Normal 22-32 [facility] Comment on above: Performed By: #### C BCA, 23369-7, CMP, 1987-12, 4485-04, 4498-2, ENAP #### [facility] ([id number]) [address], [facility] [address] [place] [address] Creatinine [Mass/Vol] 0.63 mg/dL Normal 0.60-1.30 [facility] Comment on above: Result Comment: METH OD TRACEABLE TO IDMS STANDARD Performed By: #### C BCA, 14941-5, CMP, 1987-12, 4485-04, 4498-2, ENAP #### [facility] ([id number]) [address], [facility] [address] [place] [address] eGFR (CKD-EPI) NON-RACE DEPENDENT >90 Normal >59 [facility] Comment on above: Result Comment: Reported eGFR is based on the CKD-EPI 2020 equation that does not use a race coefficient. Performed By: #### C BCA, 90824-8, CMP, 1987-12, 4485-04, 449-2, ENAP #### [facility] ([id number]) [address] [place] [address] Glucose [Mass/Vol] 111 mg/dL High 65-99 [facility] Comment on above: Performed By: #### C BCA, 70509-2, CMP, 1987-12, 4485-04, 4498-2, ENAP #### [facility] ([id number]) [address], [address] [place] [address] Potassium [Moles/Vol] 3.8 mmol/L Normal 3.5-5.0 [facility] Comment on above: Performed By: #### C BCA, 80873-7, CMP, 1987-12, 4485-04, 4498-2, ENAP #### [facility] ([id number]) [address] [place] [address] Protein [Mass/Vol] 7.2 g/dL Normal 6.0-8.0 [facility] Comment on above: Performed By: #### C BCA, 82923-7, CMP, 1987-12, 4485-04, 4498-2, ENAP #### [facility] ([id number]) [address], [address] [place] [address] Sodium [Moles/Vol] 139 mmol/L Normal 134-146 [facility] Comment on above: Performed By: #### C BCA, 33954-6, CMP, 1987-12, 4485-04, 4498-2, ENAP #### [facility] ([id number]) [address] [place] [address] Urea nitrogen [Mass/Vol] 12 mg/dL Normal 5-23 [facility] Comment on above: Performed By: #### C BCA, 17310-8, CMP, 1987-12, 4485-04, 4498-2, ENAP #### [facility] ([id number]) [address] [place] [address] CRP [Mass/Vol]on 04-17-2024 C REACTIVE PROTEIN 0.8 mg/dL High 0.000-0.744 [facility] Comment on above: Performed By: #### C BCA, 44522-4, CMP, 1987-12, 4484-9, 4498-2, ENAP #### [facility] ([id number]) [address] [place] [address] Complement C3 [Mass/Vol]on 0 04-17-2024 COMPLEMENT C3 153 mg/dL Normal 86-184 [facility] Comment on above: Performed By: #### C BCA, 72370-3, CMP, 1987-12, 4485-04, 4498-2, ENAP #### [facility] ([id number]) [address] [place] [address] Complement C4 [Mass/Vol]on 0 04-17-2024 COMPLEMENT C4 33 mg/dL Normal 16-47 [facility] Comment on above: Performed By: #### C BCA, 37525-6, CMP, 1987-12, 4485-04, 4498-2, ENAP #### [facility] ([id number]) [address] [place] [address] VIJAY PANELon 04-17-2024 ANTI-KENNEDY AB IGG <0.2 Normal <1.0 [facility] Comment on above: Performed By: #### C BCA, 43454-3, CMP, 1987-12, 4485-04, 4498-2, ENAP #### [facility] ([id number]) [address], [facility] [address] [place] [address] JO1 ANTIBODY <0.2 Normal <1.0 [facility] Comment on above: Performed By: #### C BCA, 81195-6, CMP, 1987-12, 4485-04, 4498-2, ENAP #### [facility] ([id number]) [address] [place] [address] VEGETABLE FARMER ANTIBODY IGG 0.6 AI Normal <1.0 [facility] Comment on above: Performed By: #### C BCA, 96847-9, CMP, 1987-12, 4485-04, 4498-2, ENAP #### [facility] ([id number]) [address] [place] [address] SCL 70 ANTIBODY <0.2 Normal <1.0 [facility] Comment on above: Performed By: #### C BCA, 07022-7, CMP, 1987-12, 4485-04, 4498-2, ENAP #### [facility] ([id number]) [address] [address] SSA ANTIBODY <0.2 Normal <1.0 [facility] Comment on above: Performed By: #### C BCA, 77947-3, CMP, 1987-12, 4485-04, 4498-2, ENAP #### [facility] ([id number]) [address] [address] SSB ANTIBODY <0.2 Normal <1.0 [facility] Comment on above: Performed By: #### C BCA, 86416-0, CMP, 1987-12, 4485-04, 4498-2, ENAP #### [facility] ([id number]) [address] [address] ESR Photometric method (Bld) [Velocity]on 04-17-2024 ESR, ERYTHROCYTE SEDIMENTATION RATE 19 mm/h High 0-15 [facility] Comment on above: Performed By: #### C BCA, 61533-0, CMP, 1987-12, 4485-04, 4498-2, ENAP #### [facility] ([id number]) [address] [address] Automated basophil %Ordered By: Margaret Kennedy on 03-30-2024 Basophils/100 WBC (Bld) 0.4 % Normal . [facility] Comment on above: Performed By: #### B MP, MG, CBC #### [address] Automated basophil countOrde red By: Margaret Kennedy on 03-30-2024 Basophils (Bld) [#/Vol] 0.1 10*3/uL Normal 0.0-0.2 [facility] Comment on above: Result Comment: PERF ORMED BY: [place] [address] PATHOLOGIST TERRY CLOTH C[employer]TER [employer] MARLYN MCKEON M.D. Performed By: #### B MP, MG, CBC #### [address] Automated blood monocyte cou ntOrdered By: Margaret Kennedy on 03-30-2024 Monocytes (Bld) [#/Vol] 1.8 10*3/uL High 0.0-0.8 [facility] Comment on above: Performed By: #### B MP, MG, CBC #### [address] Automated eosinophil %Ordere d By: Margaret Kennedy on 03-30-2024 Eosinophils/100 WBC (Bld) 1.0 % Normal . [facility] Comment on above: Performed By: #### B MP, MG, CBC #### [facility] [address] [place] [address] Automated eosinophil countOr dered By: Margaret Kennedy on 03-30-2024 Eosinophils (Bld) [#/Vol] 0.2 10*3/uL Normal 0.0-0.45 [facility] Comment on above: Performed By: #### B MP, MG, CBC #### [address] Automated monocyte %Ordered By: Margaret Kennedy on 03-30-2024 Monocytes/100 WBC (Bld) 9.0 % Normal . [facility] Comment on above: Performed By: #### B MP, MG, CBC #### [facility] [address] Automated neutrophil %Ordere d By: Margaret Kennedy on 03-30-2024 Neutrophils/100 WBC (Bld) 67.6 % Normal . [facility] Comment on above: Performed By: #### B MP, MG, CBC #### [facility] [address] Basic Metabolic Panelon 080 Creatinine Clr [facility] 238.21 Normal [facility] Comment on above: Performed By: #### B MP, MG, CBC #### [facility] [address] [place] [address] GFR/1.73 sq M.predicted MDRD (S/P/Bld) [Vol rate/Area] mL/min/{1.73_m2} Normal [facility] Comment on above: Performed By: #### B MP, MG, CBC #### [address] head/brain wo conon 03-30 CT head/brain wo con [facility] [place] [id number] CT Scan Report Signed Patient: Bhumika Umana JR MR#: [id number] : 1975 Acct:[id number] Age/Sex: 48 / M ADM Date: 03/30/24 Loc: Room: [address] [place] [address] Type: ADM INOo Attending Dr: Bola Garcia [...] Mert Ferreira M.D.03/30/2024 9:26 AM Dictation Location: [place] [address] Transcribed By: [facility] 03/30/24925 Dictated By: Mert Ferreira DO 03/30/24917 Signed By: 03/30/24925 Normal [facility] Calcium [Mass/volume] in Ser um or PlasmaOrdered By: Margaret Kennedy on 03-30-2024 Calcium [Mass/Vol] 9.3 mg/dL Normal 8.6-10.3 [facility] Comment on above: Performed By: #### B MP, MG, CBC #### [address] Capillary blood glucose pete urement by glucometer (mass/volume)Ordered By: Edgar Gomez on 03-30-2024 Glucose [Mass/Vol] 115 mg/dL Normal [facility] Comment on above: Random Glucose Refer ence Range is dependent on time and content of last meal. Glucose of more than 200 mg/dL in a nonstressed, ambulatory subject supports the diagnosis of Diabetes Mellitus. Result Comment: Neligh om Glucose Reference Range is dependent on time and content of last meal. Glucose of more than 200 mg/dL in a nonstressed, ambulatory subject supports the diagnosis of Diabetes Mellitus. PERFORMED BY: [facility] [address] [place] [address] PATHOLOGIST TERRY CLOTH CUTTER HAND MARLYN MCKEON M.D. Performed By: #### G MARGARITA #### Point of Care testing , Carbon dioxide, total [Moles /volume] in Serum or PlasmaOrdered By: Margaret Kennedy on 03-30-2024 CO2 [Moles/Vol] 27.2 mmol/L Normal 21.0-31.0 [facility] Comment on above: Performed By: #### B MP, MG, CBC #### [address] Chloride [Moles/volume] in S vandana or PlasmaOrdered By: Margaret Kennedy on 03-30-2024 Chloride [Moles/Vol] 101 mmol/L Normal 98-107 [facility] Comment on above: Performed By: #### B MP, MG, CBC #### [address] Complete Blood Count Auto Di ffon 03-30-2024 Mean Corpuscular HGB Conc 33.3 g/dL Normal 32.5-35.6 [facility] Comment on above: Performed By: #### B MP, MG, CBC #### [address] NRBC% 0.0 /100{WBC} Normal 0-0.5 [facility] Comment on above: Performed By: #### B MP, MG, CBC #### [address] Creatinine [Mass/volume] in Serum or PlasmaOrdered By: Margaret Kennedy on 03-30-2024 Creatinine [Mass/Vol] 0.61 mg/dL Low 0.70-1.30 [facility] Comment on above: Performed By: #### B MP, MG, CBC #### [address] Erythrocyte distribution wid th [Ratio] by Automated countOrdered By: Margaret Kennedy on 03-30-2024 Erythrocyte distribution width (RBC) [Ratio] 13.6 % Normal 12.0-14.8 [facility] Comment on above: Performed By: #### B MP, MG, CBC #### [facility] [address] [place] [address] [place] Erythrocytes [#/volume] in B lood by Automated countOrdered By: Margaret Kennedy on 03-30-2024 RBC (Bld) [#/Vol] 5.03 10*6/uL Normal 3.90-5.60 [facility] Comment on above: Performed By: #### B MP, MG, CBC #### [facility] [address] Glucose Poct Glucometerson 0 03-30-2024 Glucose [Mass/Vol] 159 mg/dL Normal [facility] Comment on above: Result Comment: Neligh om Glucose Reference Range is dependent on time and content of last meal. Glucose of more than 200 mg/dL in a nonstressed, ambulatory subject supports the diagnosis of Diabetes Mellitus. PERFORMED BY: [place] [address] PATHOLOGIST TERRY CLOTH CUTTER HAND MARLYN MCKEON M.D. Performed By: #### C BC, MG, PHOS, CMP #### [address] Glucose [Mass/Vol] 144 mg/dL Normal [facility] Comment on above: Result Comment: Neligh om Glucose Reference Range is dependent on time and content of last meal. Glucose of more than 200 mg/dL in a nonstressed, ambulatory subject supports the diagnosis of Diabetes Mellitus. PERFORMED BY: [place] [address] PATHOLOGIST TERRY CLOTH CUTTER HAND MARLYN MCKEON M.D. Performed By: #### C BC, MG, PHOS, CMP #### [address] Glucose [Mass/volume] in Ser um or PlasmaOrdered By: Margaret Kennedy on 03-30-2024 Glucose [Mass/Vol] 119 mg/dL High 70-100 [facility] Comment on above: ADA recommended refe rence rangeRandom Glucose Reference Range is dependent on time and content of last meal. Glucose of more than 200 mg/dL in a nonstressed, ambulatory subject supports the diagnosis of Diabetes Mellitus. Result Comment: Neligh om Glucose Reference Range is dependent on time and content of last meal. Glucose of more than 200 mg/dL in a nonstressed, ambulatory subject supports the diagnosis of Diabetes Mellitus. ADA recommended reference range Performed By: #### B MP, MG, CBC #### [address] Hematocrit [Volume Fraction] of Blood by Automated countOrdered By: Margaret Kennedy on 03-30-2024 Hematocrit (Bld) [Volume fraction] 44.6 % Normal 38.8-50.0 [facility] Comment on above: Performed By: #### B MP, MG, CBC #### [address] Hemoglobin [Mass/volume] in BloodOrdered By: Margaret Kennedy on 03-30-2024 Hemoglobin (Bld) [Mass/Vol] 14.9 g/dL Normal 13.0-17.0 [facility] Comment on above: Performed By: #### B MP, MG, CBC #### [address] Leukocytes [#/volume] correc elizabeth for nucleated erythrocytes in Blood by Automated counOrdered By: Margaret Kennedy on 03-30-2024 WBC corrected for nucl RBC Auto (Bld) [#/Vol] 20.0 10*3/uL High 4.1-10.5 [facility] Leukocytes [#/volume] in Blo od by Automated countOrdered By: Margaret Kennedy on 03-30-2024 WBC (Bld) [#/Vol] 20.0 10*3/uL High 4.1-10.5 [facility] Comment on above: Performed By: #### B MP, MG, CBC #### [address] Lymphocytes [#/volume] in Bl ood by Automated countOrdered By: Margaret Kennedy on 03-30-2024 Lymphocytes (Bld) [#/Vol] 4.4 10*3/uL Normal 1.00-4.8 [facility] Comment on above: Performed By: #### B MP, MG, CBC #### [place] [address] [place] Lymphocytes/100 leukocytes i n Blood by Automated countOrdered By: Margaret Kennedy on 03-30-2024 Lymphocytes/100 WBC (Bld) 22.0 % Normal . [facility] Comment on above: Performed By: #### B MP, MG, CBC #### [address] MCH [Entitic mass] by Automa elizabeth countOrdered By: Margaret Kennedy on 03-30-2024 MCH (RBC) [Entitic mass] 29.5 pg Normal 27.5-35.2 [facility] Comment on above: Performed By: #### B MP, MG, CBC #### [address] MCHC Auto (RBC) [Mass/Vol]Or dered By: Margaret Kennedy on 03-30-2024 MCHC (RBC) [Mass/Vol] 33.3 g/dL 32.5-35.6 [facility] MCV [Entitic volume] by Auto mated countOrdered By: Margaret Kennedy on 03-30-2024 MCV (RBC) [Entitic vol] 88.6 fL Normal 83.5-101 [facility] Comment on above: Performed By: #### B MP, MG, CBC #### [address] Magnesium [Mass/volume] in S vandana or PlasmaOrdered By: Margaret Kennedy on 03-30-2024 Magnesium [Mass/Vol] 1.8 mg/dL Low 1.9-2.7 [facility] Comment on above: Result Comment: PERF ORMED BY: [place] [address] PATHOLOGIST TERRY CLOTH CUTTER HAND MARLYN MCKEON M.D. Performed By: #### B MP, MG, CBC #### [address] Neutrophils [#/volume] in Bl ood by Automated countOrdered By: Margaret Kennedy on 03-30-2024 Neutrophils (Bld) [#/Vol] 13.5 10*3/uL High 1.8-7.7 [facility] Comment on above: Performed By: #### B MP, MG, CBC #### [address] No Panel InformationOrdered By: Margaret Kennedy on 03-30-2024 Estimated GFR (CKD-EPI) > 60.0 mL/Min [facility] Creatinine Clearance (Chem 238.21 [facility] Nucleated erythrocytes [Pres ence] in Blood by Automated countOrdered By: Margaret Kennedy on 03-30-2024 Nucleated RBC Auto Ql (Bld) 0.0 /100{WBC} 0-0.5 [facility] Platelet mean volume [Entiti c volume] in Blood by Automated countOrdered By: Margaret Kennedy on 03-30-2024 Platelet mean volume (Bld) [Entitic vol] 7.5 fL Normal 6.6-10.1 [facility] Comment on above: Performed By: #### B MP, MG, CBC #### [facility] [address] [place] [address] [place] Platelets [#/volume] in Bloo d by Automated countOrdered By: Margaret Kennedy on 03-30-2024 Platelets (Bld) [#/Vol] 324 10*3/uL Normal 150-450 [facility] Comment on above: Performed By: #### B MP, MG, CBC #### [facility] [address] [place] [address] [place] Potassium [Moles/volume] in Serum or PlasmaOrdered By: Margaret Kennedy on 03-30-2024 Potassium [Moles/Vol] 4.4 mmol/L Normal 3.5-5.1 [facility] Comment on above: Performed By: #### B MP, MG, CBC #### [facility] [address] [place] [address] Serum or plasma anion gap de terminationOrdered By: Margaret Kennedy on 03-30-2024 Anion gap [Moles/Vol] 12.2 mmol/L Normal 6.0-15.0 [facility] Comment on above: Performed By: #### B MP, MG, CBC #### [facility] [address] [place] [address] [place] Sodium [Moles/volume] in Ser um or PlasmaOrdered By: Margaret Kennedy on 03-30-2024 Sodium [Moles/Vol] 136 mmol/L Normal 136-145 [facility] Comment on above: Performed By: #### B MP, MG, CBC #### [facility] [address] Urea nitrogen [Mass/volume] in Serum or PlasmaOrdered By: Margaret Kennedy on 03-30-2024 Urea nitrogen [Mass/Vol] 13 mg/dL Normal 7-25 [facility] Comment on above: Performed By: #### B MP, MG, CBC #### [facility] [address] Automated basophil %Ordered By: Emily Winn on 03-29-2024 Basophils/100 WBC (Bld) 0.5 % Normal . [facility] Comment on above: Performed By: #### G LULS #### Point of Care testing , Automated basophil countOrde red By: Emily Winn on 03-29-2024 Basophils (Bld) [#/Vol] 0.1 10*3/uL Normal 0.0-0.2 [facility] Comment on above: Performed By: #### G LULS #### Point of Care testing , Automated blood monocyte cou ntOrdered By: Emily Winn on 03-29-2024 Monocytes (Bld) [#/Vol] 1.1 10*3/uL High 0.0-0.8 [facility] Comment on above: Performed By: #### G LULS #### Point of Care testing , Automated eosinophil %Ordere d By: Emily Winn on 03-29-2024 Eosinophils/100 WBC (Bld) 0.6 % Normal . [facility] Comment on above: Performed By: #### G LULS #### Point of Care testing , Automated eosinophil countOr dered By: Emily Winn on 03-29-2024 Eosinophils (Bld) [#/Vol] 0.1 10*3/uL Normal 0.0-0.45 [facility] Comment on above: Performed By: #### G LULS #### Point of Care testing , Automated monocyte %Ordered By: Emily Winn on 03-29-2024 Monocytes/100 WBC (Bld) 6.5 % Normal . [facility] Comment on above: Performed By: #### G LULS #### Point of Care testing , Automated neutrophil %Ordere d By: Emily Winn on 03-29-2024 Neutrophils/100 WBC (Bld) 77.7 % Normal . [facility] Comment on above: Performed By: #### G LULS #### Point of Care testing , Basic Metabolic Panelon Creatinine Clr Calc Pharmacy 196.64 Normal [facility] Comment on above: Performed By: #### B MP, MG, CBC #### [place] [address] [place] GFR/1.73 sq M.predicted MDRD (S/P/Bld) [Vol rate/Area] mL/min/{1.73_m2} Normal [facility] Comment on above: Performed By: #### B MP, MG, CBC #### [place] [address] [place] C reactive protein [Mass/vol ume] in Serum or PlasmaOrdered By: Emily Winn on 03-29-2024 CRP [Mass/Vol] < 0.5 mg/dL 0.0-0.5 [facility] C-Reactive Proteinon 024 CRP [Mass/Vol] mg/L Normal 0.0-0.5 [facility] Comment on above: Result Comment: PERF ORMED BY: [place] [address] PATHOLOGIST TERRY CLOTH CUTTER HAND MARLYN MCKEON M.D. Performed By: #### B MP, MG, CBC #### [facility] [address] [place] [address] [place] Calcium [Mass/volume] in Ser um or PlasmaOrdered By: Emily iWnn on 03-29-2024 Calcium [Mass/Vol] 9.3 mg/dL Normal 8.6-10.3 [facility] Comment on above: Performed By: #### B MP, MG, CBC #### [place] [address] [place] Capillary blood glucose pete urement by glucometer (mass/volume)Ordered By: Emily Winn on 03-29-2024 Glucose [Mass/Vol] 204 mg/dL Normal [facility] Comment on above: Random Glucose Refer ence Range is dependent on time and content of last meal. Glucose of more than 200 mg/dL in a nonstressed, ambulatory subject supports the diagnosis of Diabetes Mellitus. Result Comment: Neligh om Glucose Reference Range is dependent on time and content of last meal. Glucose of more than 200 mg/dL in a nonstressed, ambulatory subject supports the diagnosis of Diabetes Mellitus. PERFORMED BY: [place] [address] PATHOLOGIST TERRY CLOTH CUTTER HAND MARLYN MCKEON M.D. Performed By: #### C BC, MG, PHOS, CMP #### [facility] [address] [place] [address] Carbon dioxide, total [Moles /volume] in Serum or PlasmaOrdered By: Emily Tatum on 03-29-2024 CO2 [Moles/Vol] 23.0 mmol/L Normal 21.0-31.0 [facility] Comment on above: Performed By: #### B MP, MG, CBC #### [facility] [address] [place] [address] Chloride [Moles/volume] in S vandana or PlasmaOrdered By: Emily Krise on 03-29-2024 Chloride [Moles/Vol] 101 mmol/L Normal 98-107 [facility] Comment on above: Performed By: #### B MP, MG, CBC #### [facility] [address] [place] [address] Complete Blood Count Auto Di ffon 03-29-2024 Mean Corpuscular HGB Conc 33.1 g/dL Normal 32.5-35.6 [facility] Comment on above: Performed By: #### G LULS #### Point of Care testing , Monocytes/100 WBC (Bld) 16.02 % Normal 0.00-20.00 [facility] Comment on above: Performed By: #### G LULS #### Point of Care testing , NRBC% 0.1 /100{WBC} Normal 0-0.5 [facility] Comment on above: Performed By: #### G LULS #### Point of Care testing , Creatine kinase [Enzymatic a ctivity/volume] in Serum or PlasmaOrdered By: Emily Winn on 03-29-2024 CK [Catalytic activity/Vol] 37 U/L Normal 30-223 [facility] Comment on above: Result Comment: PERF ORMED BY: [place] [address] PATHOLOGIST TERRY CLOTH CUTTER HAND MARLYN MCKEON M.D. Performed By: #### G LULS #### Point of Care testing , Creatinine [Mass/volume] in Serum or PlasmaOrdered By: Emily Winn on 03-29-2024 Creatinine [Mass/Vol] 0.74 mg/dL Normal 0.70-1.30 [facility] Comment on above: Performed By: #### B MP, MG, CBC #### [address] Erythrocyte Sedimentation Ra devaughn 03-29-2024 ESR (Bld) [Velocity] 12 mm/h Normal 0-14 [facility] Comment on above: Result Comment: PERF ORMED BY: [place] [id number] PATHOLOGIST TERRY CLOTH C[employer] HAND MARLYN MCKEON M.D. Performed By: #### G LULS #### Point of Care testing , Erythrocyte distribution wid th [Ratio] by Automated countOrdered By: Emily Winn on 03-29-2024 Erythrocyte distribution width (RBC) [Ratio] 13.6 % Normal 12.0-14.8 [facility] Comment on above: Performed By: #### G LULS #### Point of Care testing , Erythrocyte sedimentation ra te by Photometric methodOrdered By: Emily Winn on 03-29-2024 ESR Photometric method (Bld) [Velocity] 12 mm/hr 0-14 [facility] Erythrocytes [#/volume] in B lood by Automated countOrdered By: Emily Winn on 03-29-2024 RBC (Bld) [#/Vol] 5.15 10*6/uL Normal 3.90-5.60 [facility] Comment on above: Performed By: #### G MARGARITA #### Point of Care testing , Glucose [Mass/volume] in Ser um or PlasmaOrdered By: Emily Winn on 03-29-2024 Glucose [Mass/Vol] 201 mg/dL High 70-100 [facility] Comment on above: ADA recommended refe rence rangeRandom Glucose Reference Range is dependent on time and content of last meal. Glucose of more than 200 mg/dL in a nonstressed, ambulatory subject supports the diagnosis of Diabetes Mellitus. Result Comment: [place] om Glucose Reference Range is dependent on time and content of last meal. Glucose of more than 200 mg/dL in a nonstressed, ambulatory subject supports the diagnosis of Diabetes Mellitus. ADA recommended reference range Performed By: #### B MP, MG, CBC #### [address] Hematocrit [Volume Fraction] of Blood by Automated countOrdered By: Emily Winn on 03-29-2024 Hematocrit (Bld) [Volume fraction] 45.6 % Normal 38.8-50.0 [facility] Comment on above: Performed By: #### G MARGARITA #### Point of Care testing , Hemoglobin [Mass/volume] in BloodOrdered By: Emily Winn on 03-29-2024 Hemoglobin (Bld) [Mass/Vol] 15.1 g/dL Normal 13.0-17.0 [facility] Comment on above: Performed By: #### G MARGARITA #### Point of Care testing , Leukocytes [#/volume] correc elizabeth for nucleated erythrocytes in Blood by Automated counOrdered By: Emily Winn on 03-29-2024 WBC corrected for nucl RBC Auto (Bld) [#/Vol] 17.1 10*3/uL High 4.1-10.5 [facility] Leukocytes [#/volume] in Blo od by Automated countOrdered By: Emily Winn on 03-29-2024 WBC (Bld) [#/Vol] 17.1 10*3/uL High 4.1-10.5 [facility] Comment on above: Performed By: #### G LULS #### Point of Care testing , Lymphocytes [#/volume] in Bl ood by Automated countOrdered By: Emily Winn on 03-29-2024 Lymphocytes (Bld) [#/Vol] 2.5 10*3/uL Normal 1.00-4.8 [facility] Comment on above: Performed By: #### G LULS #### Point of Care testing , Lymphocytes/100 leukocytes i n Blood by Automated countOrdered By: Emily Winn on 03-29-2024 Lymphocytes/100 WBC (Bld) 14.7 % Normal . [facility] Comment on above: Performed By: #### G LULS #### Point of Care testing , MCH [Entitic mass] by Automa elizabeth countOrdered By: Emily Winn on 03-29-2024 MCH (RBC) [Entitic mass] 29.3 pg Normal 27.5-35.2 [facility] Comment on above: Performed By: #### G LULS #### Point of Care testing , MCHC Auto (RBC) [Mass/Vol]Or dered By: Emily Winn on 03-29-2024 MCHC (RBC) [Mass/Vol] 33.1 g/dL 32.5-35.6 [facility] MCV [Entitic volume] by Auto mated countOrdered By: Emily Winn on 03-29-2024 MCV (RBC) [Entitic vol] 88.5 fL Normal 83.5-101 [facility] Comment on above: Performed By: #### G LULS #### Point of Care testing , Monocyte distribution width [Entitic volume] in Blood by AutomatedOrdered By: Emily Winn on 03-29-2024 Monocyte distribution width Auto (Bld) [Entitic vol] 16.02 % 0.00-20.00 [facility] Myoglobinon 03-29-2024 Myoglobin [Mass/Vol] 31 ng/mL Normal 28-72 [facility] Comment on above: Result Comment: Perf ormed at: - [facility] [address] [id number] Cloth Cutter: Gabriel Chan PhD, Phone: [phone] PERFORMED BY: [place] [address] PATHOLOGIST TERRY CLOTH CUTTER HAND MARLYN MCKEON M.D. Performed By: #### B MP, MG, CBC #### [address] Neutrophils [#/volume] in Bl ood by Automated countOrdered By: Emily Winn on 03-29-2024 Neutrophils (Bld) [#/Vol] 13.3 10*3/uL High 1.8-7.7 [facility] Comment on above: Performed By: #### G LULS #### Point of Care testing , No Panel InformationOrdered By: Emily Winn on 03-29-2024 Estimated GFR (CKD-EPI) > 60.0 mL/Min [facility] Creatinine Clearance (Chem 196.64 [facility] Nucleated erythrocytes [Pres ence] in Blood by Automated countOrdered By: Emily Winn on 03-29-2024 Nucleated RBC Auto Ql (Bld) 0.1 /100{WBC} 0-0.5 [facility] Platelet mean volume [Entiti c volume] in Blood by Automated countOrdered By: Emily Winn on 03-29-2024 Platelet mean volume (Bld) [Entitic vol] 7.4 fL Normal 6.6-10.1 [facility] Comment on above: Performed By: #### G LULS #### Point of Care testing , Platelets [#/volume] in Bloo d by Automated countOrdered By: Emily Winn on 03-29-2024 Platelets (Bld) [#/Vol] 352 10*3/uL Normal 150-450 [facility] Comment on above: Performed By: #### G LULS #### Point of Care testing , Potassium [Moles/volume] in Serum or PlasmaOrdered By: Emily Winn on 03-29-2024 Potassium [Moles/Vol] 4.4 mmol/L Normal 3.5-5.1 [facility] Comment on above: Performed By: #### B MP, MG, CBC #### [facility] [address] Serum or plasma anion gap de terminationOrdered By: Emily Winn on 03-29-2024 Anion gap [Moles/Vol] 14.4 mmol/L Normal 6.0-15.0 [facility] Comment on above: Performed By: #### B MP, MG, CBC #### [place] [address] [place] Sodium [Moles/volume] in Ser um or PlasmaOrdered By: Emily Winn on 03-29-2024 Sodium [Moles/Vol] 134 mmol/L Low 136-145 [facility] Comment on above: Performed By: #### B MP, MG, CBC #### [address] Urea nitrogen [Mass/volume] in Serum or PlasmaOrdered By: Emily Winn on 03-29-2024 Urea nitrogen [Mass/Vol] 15 mg/dL Normal 7-25 [facility] Comment on above: Performed By: #### B MP, MG, CBC #### [place] [address] [place] Activated partial thrombopla stin time (aPTT) in platelet poor plasma by coagulation aOrdered By: Danial Hroan on 03-25-2024 aPTT Coag (PPP) [Time] 30.2 s 25.1-36.5 [facility] Comment on above: A hematocrit value g reater than 55% may lead to inaccurate results in coagulation testing. Patients having hematocrit values >55% require a special collection tube for coagulation studies. Please contact the laboratory at [phone] for redraw instructions. Aerobic Cultureon 03-25-2024 Aerobic [...] Seen 2+ White Blood Cells PERFORMED BY: [facility] [address] [place] [address] PATHOLOGIST TERRY CLOTH CUTTER HAND MARLYN MCKEON M.D. Normal [facility] Comment on above: Performed By: #### C BC, MG, PHOS, CMP #### [facility] [address] [place] [address] [place] Albumin [Mass/volume] in Cer ebral spinal fluidOrdered By: Danial Horan on 03-25-2024 Albumin (CSF) [Mass/Vol] 46 mg/dL High 10-45 [facility] Albumin [Mass/volume] in Ser um or PlasmaOrdered By: Danial Horan on 03-25-2024 Albumin [Mass/Vol] 4.2 g/dL 4.1-5.1 [facility] CSF IgG/albumin ratioOrdered By: Danial Horan on 03-25-2024 IgG/Albumin (CSF) [Mass ratio] 0.13 0.00-0.25 [facility] CSF PCR Panelon 03-25-2024 CSF PCR [...] Varicella zoster virus Not detected PERFORMED BY: [facility] [address] [place] [address] PATHOLOGIST TERRY CLOTH CUTTER HAND MARLYN MCKEON M.D. Normal [facility] Comment on above: Performed By: #### C BC, MG, PHOS, CMP #### [facility] [address] [place] [address] [facility] Capillary blood glucose pete urement by glucometer (mass/volume)Ordered By: Simon Wolfe on 03-25-2024 Glucose [Mass/Vol] 127 mg/dL Normal [facility] Comment on above: Random Glucose Refer ence Range is dependent on time and content of last meal. Glucose of more than 200 mg/dL in a nonstressed, ambulatory subject supports the diagnosis of Diabetes Mellitus. Result Comment: [place] Glucose Reference Range is dependent on time and content of last meal. Glucose of more than 200 mg/dL in a nonstressed, ambulatory subject supports the diagnosis of Diabetes Mellitus. PERFORMED BY: [place] [address] PATHOLOGIST TERRY CLOTH CUTTER HAND MARLYN MCKEON M.D. Performed By: #### B MP, MG, CBC #### [address] Cell Count Differential,CSFo n 03-25-2024 Appearance, CSF Turbid Critically abnormal Clear [facility] Comment on above: Order Comment: Comme nt Tube 1 Performed By: #### C BC, MG, PHOS, CMP #### [address] Color, CSF Red Critically abnormal Colorless [facility] Comment on above: Order Comment: Comme nt Tube 1 Performed By: #### C BC, MG, PHOS, CMP #### [place] [address] [place] Eosinophil, CSF 2 % High 0-0 [facility] Comment on above: Order Comment: Comme nt Tube 1 Performed By: #### C BC, MG, PHOS, CMP #### [place] [address] [place] Lymphocytes, CSF 19 % Low 40-80 [facility] Comment on above: Order Comment: Comme nt Tube 1 Performed By: #### C BC, MG, PHOS, CMP #### [place] [address] [place] Monocytes, CSF 7 % Low 15-45 [facility] Comment on above: Order Comment: Comme nt Tube 1 Performed By: #### C BC, MG, PHOS, CMP #### [place] [address] [place] Neutrophils, CSF 72 % High 0-6 [facility] Comment on above: Order Comment: Comme nt Tube 1 Performed By: #### C BC, MG, PHOS, CMP #### [address] [place] [address] Normal [facility] Comment on above: Order Comment: Comme nt Tube 1 Result Comment: The reference interval and other method performance specifications have not been established for this body fluid. The test result must be integrated into the clinical context for interpretation. Performed By: #### C BC, MG, PHOS, CMP #### [address] TNC, CSF 85 Off scale high 0-5 [facility] Comment on above: Order Comment: Comme nt Tube 1 Result Comment: Crit ical value result called at 1233 on 03/25/24 Performed By: #### C BC, MG, PHOS, CMP #### [address] Tube Number Tested, CSF Tube Number: 1 Normal [facility] Comment on above: Order Comment: Comme nt Tube 1 Result Comment: PERF ORMED BY: [place] [address] PATHOLOGIST TERRY CLOTH CUTTER HAND MARLYN MCKEON M.D. Performed By: #### C BC, MG, PHOS, CMP #### [address] Cell Count Differential,CSF #2on 03-25-2024 Appearance, CSF Hazy Critically abnormal Clear [facility] Comment on above: Order Comment: Comme nt Tube 3 Performed By: #### C BC, MG, PHOS, CMP #### [place] [address] [place] Color, CSF LT PINK Normal Colorless [facility] Comment on above: Order Comment: Comme nt Tube 3 Performed By: #### C BC, MG, PHOS, CMP #### [address] CSF Supernatant Color Colorless Normal Colorless [facility] Comment on above: Order Comment: Comme nt Tube 3 Performed By: #### C BC, MG, PHOS, CMP #### [facility] [address] [place] [address] Order Comment: Comme nt Tube 1 CSF Volume, Total 9.0 mL Normal [facility] Comment on above: Order Comment: Comme nt Tube 3 Performed By: #### C BC, MG, PHOS, CMP #### [address] Order Comment: Comme nt Tube 1 Eosinophil, CSF 1 % High 0-0 [facility] Comment on above: Order Comment: Comme nt Tube 3 Performed By: #### C BC, MG, PHOS, CMP #### [address] Lymphocytes, CSF 29 % Low 40-80 [facility] Comment on above: Order Comment: Comme nt Tube 3 Performed By: #### C BC, MG, PHOS, CMP #### [facility] [address] [place] [address] Monocytes, CSF 8 % Low 15-45 [facility] Comment on above: Order Comment: Comme nt Tube 3 Performed By: #### C BC, MG, PHOS, CMP #### [address] Neutrophils, CSF 62 % High 0-6 [facility] Comment on above: Order Comment: Comme nt Tube 3 Performed By: #### C BC, MG, PHOS, CMP #### [facility] [address] [place] [address] RBC, CSF 3051 Normal [facility] Comment on above: Order Comment: Comme nt Tube 3 Result Comment: The reference interval and other method performance specifications have not been established for this body fluid. The test result must be integrated into the clinical context for interpretation. Performed By: #### C BC, MG, PHOS, CMP #### [facility] [address] [place] [address] TNC, CSF 3 /uL Normal 0-5 [facility] Comment on above: Order Comment: Comme nt Tube 3 Performed By: #### C BC, MG, PHOS, CMP #### [facility] [address] [place] [address] [place] Tube Number Tested, CSF Tube Number: 3 Normal [facility] Comment on above: Order Comment: Comme nt Tube 3 Result Comment: PERF ORMED BY: [address] [place] [address] PATHOLOGIST TERRY CLOTH CUTTER HAND MARLYN MCKEON M.D. Performed By: #### C BC, MG, PHOS, CMP #### [facility] [address] Cells Counted Total [#] in B patricia fluidOrdered By: Danial Horan on 03-25-2024 Cells Counted Total (Body fld) [#] 85 mm^3 High 0-5 [facility] Comment on above: Critical valueresult calledat 1233 on 03/25/24 Cerebrospinal fluid IgG inde xOrdered By: Danial Horan on 03-25-2024 IgG clearance/Albumin clearance (S+CSF) [Ratio] 0.6 0.0-0.7 [facility] Cerebrospinal fluid appearan ce descriptionOrdered By: Danial Horan on 03-25-2024 Appearance (CSF) Hazy Abnormal Clear [facility] Cerebrospinal fluid eosinoph il percentageOrdered By: Danial Horan on 03-25-2024 Eosinophils/100 WBC (CSF) 2 % High 0-0 [facility] Cerebrospinal fluid lymphocy te percentageOrdered By: Danial Horan on 03-25-2024 Lymphocytes/Leukocyte s Manual cnt (CSF) [Pure # fraction] 19 % Low 40-80 [facility] Cerebrospinal fluid monocyte percentageOrdered By: Danial Horan on 03-25-2024 Monocytes/100 WBC (CSF) 7 % Low 15-45 [facility] Cerebrospinal fluid neutroph il percentageOrdered By: Danial Horan on 03-25-2024 Neutrophils/100 WBC (CSF) 72 % High 0-6 [facility] Cerebrospinal fluid post-oneil trifugation appearance determinationOrdered By: Danial Horan on 03-25-2024 Appearance (Spun CSF) Colorless Colorless [facility] Cerebrospinal fluid sample t ube volume measurementOrdered By: Danial Horan on 03-25-2024 Specimen volume (CSF) 9.0 mL [facility] Color CSFOrdered By: Danial polanco on 03-25-2024 Color (CSF) Lt pink Colorless [facility] Erythrocytes [#/volume] in B patricia fluid by Automated countOrdered By: Danial Horan on 03-25-2024 RBC Auto (Body fld) [#/Vol] 3051 mm^3 [facility] Comment on above: The reference interv al and other method performance specifications have not been established for this body fluid. The test result must be integrated into the clinical context for interpretation. Glucose Poct Glucometerson 0 03-25-2024 Glucose [Mass/Vol] 156 mg/dL Normal [facility] Comment on above: Result Comment: [facility] Glucose Reference Range is dependent on time and content of last meal. Glucose of more than 200 mg/dL in a nonstressed, ambulatory subject supports the diagnosis of Diabetes Mellitus. PERFORMED BY: [place] [address] PATHOLOGIST TERRY CLOTH [employer] HAND MARLYN MCKEON M.D. Performed By: #### C BC, MG, PHOS, CMP #### [address] Glucose [Mass/Vol] 114 mg/dL Normal [facility] Comment on above: Result Comment: [facility] Glucose Reference Range is dependent on time and content of last meal. Glucose of more than 200 mg/dL in a nonstressed, ambulatory subject supports the diagnosis of Diabetes Mellitus. PERFORMED BY: [place] [address] PATHOLOGIST TERRY CLOTH [employer]TER HAND MARLYN MCKEON M.D. Performed By: #### G LULS #### Point of Care testing , Glucose [Mass/Vol] 99 mg/dL Normal [facility] Comment on above: Result Comment: [facility] Glucose Reference Range is dependent on time and content of last meal. Glucose of more than 200 mg/dL in a nonstressed, ambulatory subject supports the diagnosis of Diabetes Mellitus. PERFORMED BY: [place] [address] PATHOLOGIST TERRY CLOTH [employer] HAND MARLYN MCKEON M.D. Performed By: #### G LULS #### Point of Care testing , Glucose [Mass/volume] in Cer ebral spinal fluidOrdered By: Danial Horan on 03-25-2024 Glucose (CSF) [Mass/Vol] 72 mg/dL High 40-70 [facility] Glucose, CSF #2on 03-25-2024 Glucose, CSF #2 72 mg/dL High 40-70 [facility] Comment on above: Order Comment: Comme nt Tube 3 Performed By: #### C BC, MG, PHOS, CMP #### [facility] [address] [place] [address] [place] Glucose, Spinal Fluidon 02-26 Glucose, Spinal Fluid 72 mg/dL High 40-70 [facility] Comment on above: Order Comment: Comme nt Tube 1 Performed By: #### C BC, MG, PHOS, CMP #### [facility] [address] [place] [address] [place] Gram Stainon 03-25-2024 Microscopic observation Gram stain Nom (Unsp spec) PER LAB PROTOCAL - WHEN PCR ORDERED, A CULTURE MUST BE ORDERED. Tube Number for CSF Microbiology: 2 Gram Stain Result No Bacteria Seen 2+ White Blood Cells PERFORMED BY: [place] [address] PATHOLOGIST TERRY CLOTH C[employer]TER HAND MARLYN MCKEON M.D. Normal [facility] Comment on above: Performed By: #### C BC, MG, PHOS, CMP #### [facility] [address] [place] [address] Gram stain for investigation of transfusion reactionOrdered By: Danial Horan on 03-25-2024 Microscopic observation Gram stain Nom (Unsp spec) [facility] Microscopic observation Gram stain Nom (Unsp spec) No Anaerobes Isolated 3 Days [facility] INR in Platelet poor plasma by Coagulation assayOrdered By: Danial Horan on 03-25-2024 INR Coag (PPP) [Relative time] 1.0 {INR} Normal [facility] Comment on above: INR Therapeutic Rang [...] on 03-25-2024 IR guided lumbar puncture LP [facility] [place] [address] [place] [address] Interventional Radiology Rpt Signed Patient: Bhumika Umana JR MR#: [id number] : 1975 Acct:[id number] Age/Sex: 48 / M ADM Date: 03/23/24 Loc: Room: [address] [place] [address] Type: ADM IN Attending Dr: Simon Wolfe MD Copies to: DO Simon Aguirre MD Ordering Provider: Danial Horan DO Date of Service: 03/25/24 IR/IR guided lumbar puncture LP: CONCERN FOR DEMYELINATING SYNDROME FLUOROSCOPICALLY GUIDED LUMBAR PUNCTURE CLINICAL HISTORY: Upper extremity weakness. 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 Cumulative Air Kerma in mGy: 31.4 [...] Mert Ferreira M.D.03/25/2024 12:51 PM Dictation Location: [place] [address] Transcribed By: [facility] 03/25/24 1251 Dictated By: Mert Ferreira DO 03/25/24 1247 Signed By: 03/25/24 1251 Normal [facility] IgG [Mass/volume] in Cerebra l spinal fluidOrdered By: Danial Horan on 03-25-2024 IgG (CSF) [Mass/Vol] 6.0 mg/dL 0.0-10.3 [facility] IgG [Mass/volume] in Serum o r PlasmaOrdered By: Danial Horan on 03-25-2024 IgG [Mass/Vol] 868 mg/dL 603-1613 [facility] IgG synthesis rate [Mass/tonya e] in Serum and CSF by calculationOrdered By: Danial Horan on 03-25-2024 IgG synthesis rate Calc (S+CSF) [Mass/Time] 5.9 mg/day High -9.9 TO +3.3 [facility] Comment on above: Performed at: [address] Director: Gabriel Chan PhD, Phone: [phone] [facility] 03-25-2024 L Specimen: [id number] Received: 03/25/24 Status: MEDINA Fleming Num: [id number] Spec Type: Cytology Subm Dr: Mert Ferreira DO Tissues: A CSF (CSF) Procedures: Cyto Prepstain, DIFF QWIK, PAPSTN Age/ Patient Sex Location Account Attending Physician Bhumika Umana JR 48/M 3T [id number] Simon Wolfe MD SPEC NUM: [id number] RECD: 03/25/24 STATUS: SOUT REQ NUM: [id number] SOL: 03/25/24- DR: Mert Ferreira DO ENTERED: 03/25/[address]: Danial Horan DO SPEC TYPE: Cytology DEPT: CNG ENTERED BY: [id number] RECV BY: [id number] ORDERED: Cyto Prepstain, DIFF QWIK, PAPSTN ORDERED: Cyto Prepstain, DIFF QWIK, PAPSTN Pathological Diagnosis Cerebrospinal fluid: Negative for malignant cells. Clinical Information Bilateral hand weakness Gross Description Received is .5 ml pale pink hazy unfixed fluid for cytology said to have been obtained as spinal fluid. Cytospin slides are stained with Papanicolaou and Diff-Quik stains.(PR/nj) CPT Codes 51818 Specimen: [id number] Received: 03/25/24 Status: MEDINA Fleming Num: [id number] Spec Type: Cytology Subm Dr: Mert Ferreira DO Tissues: A CSF (CSF) Procedures: Cyto Prepstain, DIFF QWIK, PAPSTN Patient: Bhumika Umana JR [id number] (Continued) Signed (signature on file) Jyoti Gary MD 03/26/24 1447 Normal [facility] MR cervical spine wo/w conon 03-25-2024 MR cervical spine wo/w con [facility] [place] [address] MRI Report Signed Patient: Bhumika Umana JR MR#: [id number] : 1975 Acct:[id number] Age/Sex: 48 / M ADM Date: 03/23/24 Loc: Room: [address] [place] [address] Type: ADM IN Attending Dr: Simon Wolfe [...] Pal Oconnor M.D.03/25/2024 12:45 PM Dictation Location: [place] [address] Transcribed By: [facility] 03/25/24 1245 Dictated By: Pal Oconnor II, MD 03/25/24 1237 Signed By: 03/25/24 1245 Normal [facility] Meningitis+Encephalitis path ogens DNA and RNA panel - Cerebral spinal fluid by BLAYNE wiOrdered By: Danial Horan on 03-25-2024 Meningitis+Encephalit is pathogens DNA and RNA panel BLAYNE+non-probe (CSF) [facility] No Panel InformationOrdered By: Danial Horan on 03-25-2024 CSF Myelin Basic Protein 2.7 ng/mL 0.0-4.7 [facility] Comment on above: Results of this test are labeled for research purposes onlyby the assay's electronics hardware design engineer. The performancecharacteristics of this assay have not been established bythe electronics hardware design engineer. The result should not be used fortreatment or for diagnostic purposes without confirmationof the diagnosis by another medically establisheddiagnostic product or procedure. The performancecharacteristics were determined by [employer].Performed at: [facility] - [facility] [address] [id number] Director: Mariano Jean MD, Phone: [phone] CSF Tube Number Tube number: 3 [facility] Partial Thromboplastin Timeo n 03-25-2024 aPTT Coag (Bld) [Time] 30.2 s Normal 25.1-36.5 [facility] Comment on above: Result Comment: A he matocrit value greater than 55% may lead to inaccurate results in coagulation testing. Patients having hematocrit values >55% require a special collection tube for coagulation studies. Please contact the laboratory at [phone] for redraw instructions. PERFORMED BY: [facility] [address] [place] [address] PATHOLOGIST TERRY CLOTH CUTTER HAND MARLYN MCKEON M.D. Performed By: #### G LULS #### Point of Care testing , Protein [Mass/volume] in Cer ebral spinal fluidOrdered By: Danial Horan on 03-25-2024 Protein (CSF) [Mass/Vol] 84 mg/dL High 15-45 [facility] Protein fractions.oligoclona l bands.intrathecal [Presence] in Serum and CSFOrdered By: Danial Horan on 03-25-2024 Protein fractions.oligoclonal bands.intrathecal Ql (S+CSF) Comment . [facility] Comment on above: Zero (0) oligoclonal [...] IsoelectricFocusing (IEF) and immunoblotting methodology.Performed at: - [address] [id number] Director: Gabriel Chan PhD, Phone: [phone] Prothrombin time (PT)Ordered By: Danial Horan on 03-25-2024 PT Coag (PPP) [Time] 11.1 s Normal 9.0-12.9 [facility] Comment on above: A hematocrit value g reater than 55% may lead to inaccurate results in coagulation testing. Patients having hematocrit values >55% require a special collection tube for coagulation studies. Please contact the laboratory at [phone] for redraw instructions. Result Comment: A he matocrit value greater than 55% may lead to inaccurate results in coagulation testing. Patients having hematocrit values >55% require a special collection tube for coagulation studies. Please contact the laboratory at [phone] for redraw instructions. Performed By: #### G LULS #### Point of Care testing , Total Protein, CSF #2on - Total Protein, CSF #2 84 mg/dL High 15-45 [facility] Comment on above: Order Comment: Comme nt Tube 3 Result Comment: PERF ORMED BY: [place] [address] PATHOLOGIST TERRY CLOTH CUTTER HAND MARLYN MCKEON M.D. Performed By: #### C BC, MG, PHOS, CMP #### [address] Total Protein, Spinal Fluido n 03-25-2024 Total Protein, Spinal Fluid 116 mg/dL High 15-45 [facility] Comment on above: Order Comment: Comme nt Tube 1 Result Comment: PERF ORMED BY: [place] [address] PATHOLOGIST TERRY CLOTH CUTTER HAND MARYLN MCKEON M.D. Performed By: #### C BC, MG, PHOS, CMP #### [facility] [address] [place] [address] [place] Alanine aminotransferase [En zymatic activity/volume] in Serum or PlasmaOrdered By: Elder Iyer on 03-24-2024 ALT [Catalytic activity/Vol] 24 U/L Normal 7-52 [facility] Comment on above: Performed By: #### C BC, MG, PHOS, CMP #### [facility] [address] [place] [address] [place] Albumin [Mass/volume] in Ser um or Plasma by Bromocresol green (BCG) dye binding methoOrdered By: Elder Iyer on 03-24-2024 Albumin BCG dye [Mass/Vol] 4.1 g/dL 3.5-5.7 [facility] Alkaline phosphatase [Enzyma tic activity/volume] in Serum or PlasmaOrdered By: Elder Iyer on 03-24-2024 ALP [Catalytic activity/Vol] 59 U/L Normal 34-104 [facility] Comment on above: Performed By: #### C BC, MG, PHOS, CMP #### [facility] [address] [place] [address] Aspartate aminotransferase [ Enzymatic activity/volume] in Serum or PlasmaOrdered By: Elder Iyer on 03-24-2024 AST [Catalytic activity/Vol] 14 U/L Normal 13-39 [facility] Comment on above: Performed By: #### C BC, MG, PHOS, CMP #### [facility] [address] [place] [address] Automated basophil %Ordered By: Elder Iyer on 03-24-2024 Basophils/100 WBC (Bld) 0.5 % Normal . [facility] Comment on above: Performed By: #### C BC, MG, PHOS, CMP #### [facility] [address] [place] [address] [place] Automated basophil countOrde red By: Elder Iyer on 03-24-2024 Basophils (Bld) [#/Vol] 0.1 10*3/uL Normal 0.0-0.2 [facility] Comment on above: Result Comment: PERF ORMED BY: [place] [address] PATHOLOGIST TERRY CLOTH CUTTER HAND MARLYN MCKEON M.D. Performed By: #### C BC, MG, PHOS, CMP #### [address] Automated blood monocyte cou ntOrdered By: Elder Iyer on 03-24-2024 Monocytes (Bld) [#/Vol] 1.5 10*3/uL High 0.0-0.8 [facility] Comment on above: Performed By: #### C BC, MG, PHOS, CMP #### [address] Automated eosinophil %Ordere d By: Elder Iyer on 03-24-2024 Eosinophils/100 WBC (Bld) 0.6 % Normal . [facility] Comment on above: Performed By: #### C BC, MG, PHOS, CMP #### [address] Automated eosinophil countOr dered By: Elder Iyer on 03-24-2024 Eosinophils (Bld) [#/Vol] 0.1 10*3/uL Normal 0.0-0.45 [facility] Comment on above: Performed By: #### C BC, MG, PHOS, CMP #### [address] Automated monocyte %Ordered By: Elder Iyer on 03-24-2024 Monocytes/100 WBC (Bld) 8.3 % Normal . [facility] Comment on above: Performed By: #### C BC, MG, PHOS, CMP #### [address] Automated neutrophil %Ordere d By: Elder Iyer on 03-24-2024 Neutrophils/100 WBC (Bld) 57.7 % Normal . [facility] Comment on above: Performed By: #### C BC, MG, PHOS, CMP #### [address] Bilirubin.total [Mass/volume ] in Serum or PlasmaOrdered By: Elder Iyer on 03-24-2024 Bilirubin [Mass/Vol] 0.8 mg/dL Normal 0.3-1.0 [facility] Comment on above: Performed By: #### C BC, MG, PHOS, CMP #### [address] Calcium [Mass/volume] in Ser um or PlasmaOrdered By: Elder Iyer on 03-24-2024 Calcium [Mass/Vol] 8.8 mg/dL Normal 8.6-10.3 [facility] Comment on above: Performed By: #### C BC, MG, PHOS, CMP #### [address] Carbon dioxide, total [Moles /volume] in Serum or PlasmaOrdered By: Elder Iyer on 03-24-2024 CO2 [Moles/Vol] 28.6 mmol/L Normal 21.0-31.0 [facility] Comment on above: Performed By: #### C BC, MG, PHOS, CMP #### [address] Chloride [Moles/volume] in S vandana or PlasmaOrdered By: Elder Iyer on 03-24-2024 Chloride [Moles/Vol] 101 mmol/L Normal 98-107 [facility] Comment on above: Performed By: #### C BC, MG, PHOS, CMP #### [facility] [address] [place] [address] Complete Blood Count Auto Di ffon 03-24-2024 Mean Corpuscular HGB Conc 33.3 g/dL Normal 32.5-35.6 [facility] Comment on above: Performed By: #### C BC, MG, PHOS, CMP #### [address] NRBC% 0.2 /100{WBC} Normal 0-0.5 [facility] Comment on above: Performed By: #### C BC, MG, PHOS, CMP #### [facility] [address] [place] [address] Comprehensive Metabolic Pane rayshawn 03-24-2024 Albumin [Mass/Vol] 4.1 g/dL Normal 3.5-5.7 [facility] Comment on above: Performed By: #### C BC, MG, PHOS, CMP #### [address] Creatinine Clr Calc Pharmacy 164.23 Normal [facility] Comment on above: Performed By: #### C BC, MG, PHOS, CMP #### [address] GFR/1.73 sq M.predicted MDRD (S/P/Bld) [Vol rate/Area] mL/min/{1.73_m2} Normal [facility] Comment on above: Performed By: #### C BC, MG, PHOS, CMP #### [address] Creatinine [Mass/volume] in Serum or PlasmaOrdered By: Elder Iyer on 03-24-2024 Creatinine [Mass/Vol] 0.88 mg/dL Normal 0.70-1.30 [facility] Comment on above: Performed By: #### C BC, MG, PHOS, CMP #### [address] Erythrocyte distribution wid th [Ratio] by Automated countOrdered By: Elder Iyer on 03-24-2024 Erythrocyte distribution width (RBC) [Ratio] 13.8 % Normal 12.0-14.8 [facility] Comment on above: Performed By: #### C BC, MG, PHOS, CMP #### [address] Erythrocytes [#/volume] in B lood by Automated countOrdered By: Elder Iyer on 03-24-2024 RBC (Bld) [#/Vol] 5.07 10*6/uL Normal 3.90-5.60 [facility] Comment on above: Performed By: #### C BC, MG, PHOS, CMP #### [address] Glucose Poct Glucometerson 0 03-24-2024 Glucose [Mass/Vol] 162 mg/dL Normal [facility] Comment on above: Result Comment: [place] om Glucose Reference Range is dependent on time and content of last meal. Glucose of more than 200 mg/dL in a nonstressed, ambulatory subject supports the diagnosis of Diabetes Mellitus. PERFORMED BY: [place] [address] PATHOLOGIST TERRY CLOTH CUTTER HAND MARLYN MCKEON M.D. Performed By: #### C BC, MG, PHOS, CMP #### [address] Commemt1 Glu2: Cleaned Meter Normal [facility] Comment on above: Result Comment: PERF ORMED BY: [place] [address] PATHOLOGIST TERRY CLOTH CUTTER HAND MARLYN MCKEON M.D. Performed By: #### G LULS #### Point of Care testing , Glucose [Mass/Vol] 114 mg/dL Normal [facility] Comment on above: Result Comment: [facility] Glucose Reference Range is dependent on time and content of last meal. Glucose of more than 200 mg/dL in a nonstressed, ambulatory subject supports the diagnosis of Diabetes Mellitus. Performed By: #### G LULS #### Point of Care testing , Commemt1 Glu2: Cleaned Meter Normal [facility] Comment on above: Result Comment: PERF ORMED BY: [place] [address] PATHOLOGIST TERRY CLOTH CUTTER HAND MARLYN MCKEON M.D. Performed By: #### B MP, MG, CBC #### [address] Glucose [Mass/Vol] 126 mg/dL Normal [facility] Comment on above: Result Comment: [facility] Glucose Reference Range is dependent on time and content of last meal. Glucose of more than 200 mg/dL in a nonstressed, ambulatory subject supports the diagnosis of Diabetes Mellitus. Performed By: #### B MP, MG, CBC #### [facility] [address] Glucose [Mass/Vol] 128 mg/dL Normal [facility] Comment on above: Result Comment: [facility] Glucose Reference Range is dependent on time and content of last meal. Glucose of more than 200 mg/dL in a nonstressed, ambulatory subject supports the diagnosis of Diabetes Mellitus. PERFORMED BY: [place] [address] PATHOLOGIST TERRY CLOTH CUTTER HAND MARLYN MCKEON M.D. Performed By: #### G LULS #### Point of Care testing , Glucose [Mass/Vol] 125 mg/dL Normal [facility] Comment on above: Result Comment: [facility] Glucose Reference Range is dependent on time and content of last meal. Glucose of more than 200 mg/dL in a nonstressed, ambulatory subject supports the diagnosis of Diabetes Mellitus. PERFORMED BY: [place] [address] PATHOLOGIST TERRY CLOTH [employer]TER HAND MARLYN MCKEON M.D. Performed By: #### G LULS #### Point of Care testing , Glucose [Mass/volume] in Ser um or PlasmaOrdered By: Elder Iyer on 03-24-2024 Glucose [Mass/Vol] 136 mg/dL Significant change up 70-100 [facility] Comment on above: Delta: 241 on [id number] recommended reference rangeRandom Glucose Reference Range is dependent on time and content of last meal. Glucose of more than 200 mg/dL in a nonstressed, ambulatory subject supports the diagnosis of Diabetes Mellitus. Result Comment: [facility] Glucose Reference Range is dependent on time and content of last meal. Glucose of more than 200 mg/dL in a nonstressed, ambulatory subject supports the diagnosis of Diabetes Mellitus. ADA recommended reference range Performed By: #### C BC, MG, PHOS, CMP #### [facility] [address] [place] [address] Hematocrit [Volume Fraction] of Blood by Automated countOrdered By: Elder Iyer on 03-24-2024 Hematocrit (Bld) [Volume fraction] 44.7 % Normal 38.8-50.0 [facility] Comment on above: Performed By: #### C BC, MG, PHOS, CMP #### [facility] [address] Hemoglobin [Mass/volume] in BloodOrdered By: Elder Iyer on 03-24-2024 Hemoglobin (Bld) [Mass/Vol] 14.9 g/dL Normal 13.0-17.0 [facility] Comment on above: Performed By: #### C BC, MG, PHOS, CMP #### [facility] [address] Leukocytes [#/volume] correc elizabeth for nucleated erythrocytes in Blood by Automated counOrdered By: Elder Iyer on 03-24-2024 WBC corrected for nucl RBC Auto (Bld) [#/Vol] 18.2 10*3/uL High 4.1-10.5 [facility] Leukocytes [#/volume] in Blo od by Automated countOrdered By: Elder Iyer on 03-24-2024 WBC (Bld) [#/Vol] 18.2 10*3/uL High 4.1-10.5 [facility] Comment on above: Performed By: #### C BC, MG, PHOS, CMP #### [facility] [address] [place] [address] Lymphocytes [#/volume] in Bl ood by Automated countOrdered By: Elder Iyer on 03-24-2024 Lymphocytes (Bld) [#/Vol] 6.0 10*3/uL High 1.00-4.8 [facility] Comment on above: Performed By: #### C BC, MG, PHOS, CMP #### [facility] [address] [place] [address] [place] Lymphocytes/100 leukocytes i n Blood by Automated countOrdered By: Elder Iyer on 03-24-2024 Lymphocytes/100 WBC (Bld) 32.9 % Normal . [facility] Comment on above: Performed By: #### C BC, MG, PHOS, CMP #### [facility] [address] [place] [address] [place] MCH [Entitic mass] by Automa elizabeth countOrdered By: Elder Iyer on 03-24-2024 MCH (RBC) [Entitic mass] 29.3 pg Normal 27.5-35.2 [facility] Comment on above: Performed By: #### C BC, MG, PHOS, CMP #### [facility] [address] [place] [address] MCHC Auto (RBC) [Mass/Vol]Or dered By: Elder Iyer on 03-24-2024 MCHC (RBC) [Mass/Vol] 33.3 g/dL 32.5-35.6 [facility] MCV [Entitic volume] by Auto mated countOrdered By: Elder Iyer on 03-24-2024 MCV (RBC) [Entitic vol] 88.2 fL Normal 83.5-101 [facility] Comment on above: Performed By: #### C BC, MG, PHOS, CMP #### [facility] [address] [place] [address] Magnesium [Mass/volume] in S vandana or PlasmaOrdered By: Elder Iyer on 03-24-2024 Magnesium [Mass/Vol] 2.1 mg/dL Normal 1.9-2.7 [facility] Comment on above: Result Comment: PERF ORMED BY: [place] [address] PATHOLOGIST TERRY CLOTH C[employer]TER HAND MARLYN MCKEON M.D. Performed By: #### C BC, MG, PHOS, CMP #### [facility] [address] [place] [address] Neutrophils [#/volume] in Bl ood by Automated countOrdered By: Elder Iyer on 03-24-2024 Neutrophils (Bld) [#/Vol] 10.5 10*3/uL High 1.8-7.7 [facility] Comment on above: Performed By: #### C BC, MG, PHOS, CMP #### [facility] [address] [place] [address] No Panel InformationOrdered By: Elder Iyer on 03-24-2024 Bedside Glucose Comment Glu2: cleaned meter [facility] Estimated GFR (CKD-EPI) > 60.0 mL/Min [facility] Creatinine Clearance (Chem 164.23 [facility] Nucleated erythrocytes [Pres ence] in Blood by Automated countOrdered By: Elder Iyer on 03-24-2024 Nucleated RBC Auto Ql (Bld) 0.2 /100{WBC} 0-0.5 [facility] Phosphate [Mass/volume] in S vandana or PlasmaOrdered By: Elder Iyer on 03-24-2024 Phosphate [Mass/Vol] 4.2 mg/dL Normal 2.5-4.5 [facility] Comment on above: Performed By: #### C BC, MG, PHOS, CMP #### [facility] [address] [place] [address] [place] Platelet mean volume [Entiti c volume] in Blood by Automated countOrdered By: Elder Iyer on 03-24-2024 Platelet mean volume (Bld) [Entitic vol] 7.6 fL Normal 6.6-10.1 [facility] Comment on above: Performed By: #### C BC, MG, PHOS, CMP #### [facility] [address] [place] [address] [place] Platelets [#/volume] in Bloo d by Automated countOrdered By: Elder Iyer on 03-24-2024 Platelets (Bld) [#/Vol] 364 10*3/uL Normal 150-450 [facility] Comment on above: Performed By: #### C BC, MG, PHOS, CMP #### [facility] [address] [place] [address] [place] Potassium [Moles/volume] in Serum or PlasmaOrdered By: Elder Iyer on 03-24-2024 Potassium [Moles/Vol] 3.9 mmol/L Normal 3.5-5.1 [facility] Comment on above: Performed By: #### C BC, MG, PHOS, CMP #### [facility] [address] [place] [address] [place] Protein [Mass/volume] in Ser um or PlasmaOrdered By: Elder Iyer on 03-24-2024 Protein [Mass/Vol] 6.5 g/dL Normal 6.4-8.9 [facility] Comment on above: Performed By: #### C BC, MG, PHOS, CMP #### [facility] [address] [place] [address] Serum globulin measurement b y calculation (mass/volume)Ordered By: Elder Iyer on 03-24-2024 Globulin (S) [Mass/Vol] 2.4 g/dL [facility] Comment on above: Performed By: #### C BC, MG, PHOS, CMP #### [facility] [address] [place] [address] Serum or plasma albumin/glob ulin mass ratioOrdered By: Elder Iyer on 03-24-2024 Albumin/Globulin [Mass ratio] 1.7 {ratio} [facility] Comment on above: Performed By: #### C BC, MG, PHOS, CMP #### [facility] [address] [place] [address] Serum or plasma anion gap de terminationOrdered By: Elder Iyer on 03-24-2024 Anion gap [Moles/Vol] 12.3 mmol/L Normal 6.0-15.0 [facility] Comment on above: Performed By: #### C BC, MG, PHOS, CMP #### [facility] [address] [place] [address] Sodium [Moles/volume] in Ser um or PlasmaOrdered By: Elder Iyer on 03-24-2024 Sodium [Moles/Vol] 138 mmol/L Significant change down 136-145 [facility] Comment on above: Delta: 132 on -616 Performed By: #### C BC, MG, PHOS, CMP #### [facility] [address] [place] [address] Urea nitrogen [Mass/volume] in Serum or PlasmaOrdered By: Elder Iyer on 03-24-2024 Urea nitrogen [Mass/Vol] 25 mg/dL Normal 7-25 [facility] Comment on above: Performed By: #### C BC, MG, PHOS, CMP #### [facility] [address] [place] [address] A1C with Estimated Average Magdalena wolf 03-23-2024 Glucose [Mass/Vol] 166 mg/dL Normal [facility] Comment on above: Result Comment: PERF ORMED BY: [place] [address] PATHOLOGIST TERRY CLOTH [employer] HAND MARLYN MCKEON M.D. Performed By: #### G LULS #### Point of Care testing , BNP ser/plasOrdered By: Veronika Gonzales on 03-23-2024 Natriuretic peptide B (Bld) [Mass/Vol] 27.0 pg/mL Normal 5-100 [facility] Comment on above: Result Comment: PERF ORMED BY: [place] [address] PATHOLOGIST TERRY CLOTH [employer] HAND MARLYN MCKEON M.D. Performed By: #### C BC, MG, PHOS, CMP #### [address] Basic Metabolic Panelon 02-26 Anion gap [Moles/Vol] 16.0 mmol/L High 6.0-15.0 [facility] Comment on above: Performed By: #### G LULS #### Point of Care testing , Calcium [Mass/Vol] 9.2 mg/dL Normal 8.6-10.3 [facility] Comment on above: Performed By: #### G LULS #### Point of Care testing , Chloride [Moles/Vol] 97 mmol/L Low 98-107 [facility] Comment on above: Performed By: #### G LULS #### Point of Care testing , CO2 [Moles/Vol] 23.4 mmol/L Normal 21.0-31.0 [facility] Comment on above: Performed By: #### G LULS #### Point of Care testing , Creatinine [Mass/Vol] 0.75 mg/dL Normal 0.70-1.30 [facility] Comment on above: Performed By: #### G LULS #### Point of Care testing , Creatinine Clr Calc Pharmacy 195.42 Normal [facility] Comment on above: Performed By: #### G LULS #### Point of Care testing , GFR/1.73 sq M.predicted MDRD (S/P/Bld) [Vol rate/Area] mL/min/{1.73_m2} Normal [facility] Comment on above: Performed By: #### G LULS #### Point of Care testing , Glucose [Mass/Vol] 241 mg/dL Significant change up 70-100 [facility] Comment on above: Result Comment: [facility] Glucose Reference Range is dependent on time and content of last meal. Glucose of more than 200 mg/dL in a nonstressed, ambulatory subject supports the diagnosis of Diabetes Mellitus. ADA recommended reference range Performed By: #### G LULS #### Point of Care testing , Potassium [Moles/Vol] 4.4 mmol/L Normal 3.5-5.1 [facility] Comment on above: Performed By: #### G LULS #### Point of Care testing , Sodium [Moles/Vol] 132 mmol/L Low 136-145 [facility] Comment on above: Performed By: #### G LULS #### Point of Care testing , Urea nitrogen [Mass/Vol] 22 mg/dL Normal 7-25 [facility] Comment on above: Performed By: #### G LULS #### Point of Care testing , Anion gap [Moles/Vol] 17.4 mmol/L High 6.0-15.0 [facility] Comment on above: Performed By: #### C BC, MG, PHOS, CMP #### [facility] [address] [place] [address] [place] Calcium [Mass/Vol] 9.4 mg/dL Normal 8.6-10.3 [facility] Comment on above: Performed By: #### C BC, MG, PHOS, CMP #### [facility] [address] [place] [address] [place] Chloride [Moles/Vol] 97 mmol/L Low 98-107 [facility] Comment on above: Performed By: #### C BC, MG, PHOS, CMP #### [address] CO2 [Moles/Vol] 23.2 mmol/L Normal 21.0-31.0 [facility] Comment on above: Performed By: #### C BC, MG, PHOS, CMP #### [facility] [address] [place] [address] [place] Creatinine [Mass/Vol] 0.82 mg/dL Normal 0.70-1.30 [facility] Comment on above: Performed By: #### C BC, MG, PHOS, CMP #### [place] [address] [place] Creatinine Clr Calc Pharmacy 178.94 Normal [facility] Comment on above: Result Comment: PERF ORMED BY: [place] [address] PATHOLOGIST TERRY CLOTH C[employer]TER HAND MARLYN MCKEON M.D. Performed By: #### C BC, MG, PHOS, CMP #### [place] [address] [place] GFR/1.73 sq M.predicted MDRD (S/P/Bld) [Vol rate/Area] mL/min/{1.73_m2} Normal [facility] Comment on above: Performed By: #### C BC, MG, PHOS, CMP #### [address] Glucose [Mass/Vol] 342 mg/dL High 70-100 [facility] Comment on above: Result Comment: [facility] Glucose Reference Range is dependent on time and content of last meal. Glucose of more than 200 mg/dL in a nonstressed, ambulatory subject supports the diagnosis of Diabetes Mellitus. ADA recommended reference range Performed By: #### C BC, MG, PHOS, CMP #### [facility] [address] Potassium [Moles/Vol] 4.6 mmol/L Normal 3.5-5.1 [facility] Comment on above: Performed By: #### C BC, MG, PHOS, CMP #### [facility] [address] Sodium [Moles/Vol] 133 mmol/L Low 136-145 [facility] Comment on above: Performed By: #### C BC, MG, PHOS, CMP #### [facility] [address] Urea nitrogen [Mass/Vol] 23 mg/dL Normal 7-25 [facility] Comment on above: Performed By: #### C BC, MG, PHOS, CMP #### [facility] [address] Borrelia burgdorferi IgG+IgM Ab [Presence] in Serum by ImmunoassayOrdered By: Danial Horan on 03-23-2024 B. burgdorferi IgG+IgM IA Ql (S) Negative Negative [facility] Comment on above: Lyme antibodies not detected. Reflex testing is notindicated.No laboratory evidence of infection with B. burgdorferi(Lyme disease). Negative results may occur in patientsrecently infected (less than or equal to 14 days) with B.burgdorferi. If recent infection is suspected, repeattesting on a new sample collected in 7 to 14 days isrecommended.Performed at: [facility] [id number] Director: Gabriel Chan PhD, Phone: [phone] C reactive protein [Mass/vol ume] in Serum or PlasmaOrdered By: Danial Horan on 03-23-2024 CRP [Mass/Vol] < 0.5 mg/dL 0.0-0.5 [facility] C-Reactive Proteinon 024 CRP [Mass/Vol] mg/L Normal 0.0-0.5 [facility] Comment on above: Result Comment: PERF ORMED BY: [place] [address] PATHOLOGIST TERRY CLOTH C[employer]TER HAND MARLYN MCKEON M.D. Performed By: #### G LULS #### Point of Care testing , Complete Blood Count Auto Di ffon 03-23-2024 Basophils (Bld) [#/Vol] 0.1 10*3/uL Normal 0.0-0.2 [facility] Comment on above: Result Comment: PERF ORMED BY: [place] [address] PATHOLOGIST TERRY CLOTH C[employer]TER HAND MARLYN MCKEON M.D. Performed By: #### C BC, MG, PHOS, CMP #### [address] Basophils/100 WBC (Bld) 0.5 % Normal . [facility] Comment on above: Performed By: #### C BC, MG, PHOS, CMP #### [address] Eosinophils (Bld) [#/Vol] 0.0 10*3/uL Normal 0.0-0.45 [facility] Comment on above: Performed By: #### C BC, MG, PHOS, CMP #### [address] Eosinophils/100 WBC (Bld) 0.0 % Normal . [facility] Comment on above: Performed By: #### C BC, MG, PHOS, CMP #### [address] Erythrocyte distribution width (RBC) [Ratio] 13.9 % Normal 12.0-14.8 [facility] Comment on above: Performed By: #### C BC, MG, PHOS, CMP #### [address] Hematocrit (Bld) [Volume fraction] 47.0 % Normal 38.8-50.0 [facility] Comment on above: Performed By: #### C BC, MG, PHOS, CMP #### [address] Hemoglobin (Bld) [Mass/Vol] 15.9 g/dL Normal 13.0-17.0 [facility] Comment on above: Performed By: #### C BC, MG, PHOS, CMP #### [address] Lymphocytes (Bld) [#/Vol] 1.4 10*3/uL Normal 1.00-4.8 [facility] Comment on above: Performed By: #### C BC, MG, PHOS, CMP #### [address] Lymphocytes/100 WBC (Bld) 8.2 % Normal . [facility] Comment on above: Performed By: #### C BC, MG, PHOS, CMP #### [address] MCH (RBC) [Entitic mass] 29.8 pg Normal 27.5-35.2 [facility] Comment on above: Performed By: #### C BC, MG, PHOS, CMP #### [address] MCV (RBC) [Entitic vol] 88.1 fL Normal 83.5-101 [facility] Comment on above: Performed By: #### C BC, MG, PHOS, CMP #### [address] Mean Corpuscular HGB Conc 33.8 g/dL Normal 32.5-35.6 [facility] Comment on above: Performed By: #### C BC, MG, PHOS, CMP #### [address] Monocyte Distribution Width Not performed Normal 0.00-20.00 [facility] Comment on above: Result Comment: Unab le to calculate MDW because the Absolute Monocyte Count is <0.8. Performed By: #### C BC, MG, PHOS, CMP #### [address] Monocytes (Bld) [#/Vol] 0.2 10*3/uL Normal 0.0-0.8 [facility] Comment on above: Performed By: #### C BC, MG, PHOS, CMP #### [address] Monocytes/100 WBC (Bld) 1.0 % Normal . [facility] Comment on above: Performed By: #### C BC, MG, PHOS, CMP #### [address] Neutrophils (Bld) [#/Vol] 15.5 10*3/uL High 1.8-7.7 [facility] Comment on above: Performed By: #### C BC, MG, PHOS, CMP #### [address] Neutrophils/100 WBC (Bld) 90.3 % Normal . [facility] Comment on above: Performed By: #### C BC, MG, PHOS, CMP #### [address] NRBC% 0.1 /100{WBC} Normal 0-0.5 [facility] Comment on above: Performed By: #### C BC, MG, PHOS, CMP #### [address] Platelet mean volume (Bld) [Entitic vol] 7.4 fL Normal 6.6-10.1 [facility] Comment on above: Performed By: #### C BC, MG, PHOS, CMP #### [address] Platelets (Bld) [#/Vol] 381 10*3/uL Normal 150-450 [facility] Comment on above: Performed By: #### C BC, MG, PHOS, CMP #### [place] [address] [place] RBC (Bld) [#/Vol] 5.33 10*6/uL Normal 3.90-5.60 [facility] Comment on above: Performed By: #### C BC, MG, PHOS, CMP #### [place] [address] [place] WBC (Bld) [#/Vol] 17.1 10*3/uL High 4.1-10.5 [facility] Comment on above: Performed By: #### C BC, MG, PHOS, CMP #### [place] [address] [place] Creatine Kinaseon 03-23-2024 CK [Catalytic activity/Vol] 37 U/L Normal 30-223 [facility] Comment on above: Performed By: #### C BC, MG, PHOS, CMP #### [address] Creatine kinase [Enzymatic a ctivity/volume] in Serum or PlasmaOrdered By: Danial Horan on 03-23-2024 CK [Catalytic activity/Vol] 34 U/L Normal 30-223 [facility] Comment on above: Result Comment: PERF ORMED BY: [place] [address] PATHOLOGIST TERRY CLOTH CUTTER HAND MARLYN MCKEON M.D. Performed By: #### G LULS #### Point of Care testing , ECG 12 lead ECGon 03-23-2024 ECG 12 lead ECG [facility] [place] [address] [place] [address] Electrocardiograph Report Signed Patient: Bhumika Umana JR MR#: [id number] : 1975 Acct:[id number] Age/Sex: 48 / M ADM Date: 03/23/24 Loc: ER Room: Type: [facility] ER Attending Dr: Ordering Provider: Gale [...] ECGs available Confirmed by Gale Gonzales MD ([id number]) on 03/23/2024 2:06:14 AM Referred By: Electronically Signed By: Gale Gonzales MD Transcribed By: MUS Signed By Gael Gonzales MD 02/26 03/20 0206 Normal [facility] Erythrocyte Sedimentation Ra devaughn 03-23-2024 ESR (Bld) [Velocity] 14 mm/h Normal 0-14 [facility] Comment on above: Result Comment: PERF ORMED BY: [facility] [address] [facility]. [place] [id number] PATHOLOGIST TERRY CLOTH C[employer]TER HAND MARLYN MCKEON M.D. Performed By: #### G MARGARITA #### Point of Care testing , Erythrocyte sedimentation ra te by Photometric methodOrdered By: Danial Horan on 03-23-2024 ESR Photometric method (Bld) [Velocity] 14 mm/hr 0-14 [facility] Folate [Mass/volume] in Seru m or PlasmaOrdered By: Bola Garcia on 03-23-2024 Folate [Mass/Vol] 13.0 ng/mL >5.9 [facility] Comment on above: Folate reference ran ge: >5.9 ng/mlThe WHO technical consultation on folate and vitamin [id number] has determined that folate concentrations lessthan 4 ng/ml are considered deficient. Glucose Poct Glucometerson 0 03-23-2024 Commemt1 Glu2: Cleaned Meter Normal [facility] Comment on above: Result Comment: PERF ORMED BY: [address] [place] [id number] PATHOLOGIST TERRY CLOTH CUTTER HAND MARLYN MCKEON M.D. Performed By: #### C BC, MG, PHOS, CMP #### [facility] [address] [place], [place] [id number] [facility] Glucose [Mass/Vol] 166 mg/dL Normal [facility] Comment on above: Result Comment: [facility] Glucose Reference Range is dependent on time and content of last meal. Glucose of more than 200 mg/dL in a nonstressed, ambulatory subject supports the diagnosis of Diabetes Mellitus. Performed By: #### C BC, MG, PHOS, CMP #### [facility] [address] [place] [address] [place] Glucose [Mass/Vol] 133 mg/dL Normal [facility] Comment on above: Result Comment: [facility] Glucose Reference Range is dependent on time and content of last meal. Glucose of more than 200 mg/dL in a nonstressed, ambulatory subject supports the diagnosis of Diabetes Mellitus. PERFORMED BY: [facility] [address] [facility] [place] [id number] PATHOLOGIST TERRY CLOTH CUTTER HAND MARLYN MCKEON M.D. Performed By: #### G LULS #### Point of Care testing , Glucose [Mass/Vol] 180 mg/dL Normal [facility] Comment on above: Result Comment: [facility] Glucose Reference Range is dependent on time and content of last meal. Glucose of more than 200 mg/dL in a nonstressed, ambulatory subject supports the diagnosis of Diabetes Mellitus. PERFORMED BY: [place] [address] PATHOLOGIST TERRY CLOTH CUTTER HAND MARLYN MCKEON M.D. Performed By: #### G LULS #### Point of Care testing , Glucose [Mass/Vol] 216 mg/dL Normal [facility] Comment on above: Result Comment: [facility] Glucose Reference Range is dependent on time and content of last meal. Glucose of more than 200 mg/dL in a nonstressed, ambulatory subject supports the diagnosis of Diabetes Mellitus. PERFORMED BY: [place] [address] PATHOLOGIST TERRY CLOTH CUTTER HAND MARLYN MCKEON M.D. Performed By: #### G LULS #### Point of Care testing , Commemt1 Glu2: Cleaned Meter Normal [facility] Comment on above: Result Comment: PERF ORMED BY: [place] [address] PATHOLOGIST TERRY CLOTH CUTTER HAND MARLYN MCKEON M.D. Performed By: #### C BC, MG, PHOS, CMP #### [facility] [address] [place] [address] Glucose [Mass/Vol] 362 mg/dL Normal [facility] Comment on above: Result Comment: [facility] Glucose Reference Range is dependent on time and content of last meal. Glucose of more than 200 mg/dL in a nonstressed, ambulatory subject supports the diagnosis of Diabetes Mellitus. Performed By: #### C BC, MG, PHOS, CMP #### [facility] [address] [place] [address] Glucose mean value [Mass/vol ume] in Blood Estimated from glycated hemoglobinOrdered By: Bola Garcia on 03-23-2024 Average glucose Estimated from glycated hemoglobin (Bld) [Mass/Vol] 166 mg/dL [facility] Hemoglobin A1c percentageOrd ered By: Bola Garcia on 03-23-2024 HbA1c (Bld) [Mass fraction] 7.4 % High 4.3-5.6 [facility] Comment on above: Increased risk for d iabetes: 5.7 - 6.4diabetes: >6.4glycemic control for adults with diabetes: <7.0 Result Comment: Incr eased risk for diabetes: 5.7 - 6.4 diabetes: >6.4 glycemic control for adults with diabetes: <7.0 Performed By: #### G LULS #### Point of Care testing , Lyme, Total Ab with Reflexon 03-23-2024 Lyme Total Antibody Negative Normal Negative [facility] Comment on above: [...] to 14 days is recommended. Performed at: [facility] Lab[address] [id number] Cloth Cutter: Gabriel Chan PhD, Phone: [phone] PERFORMED BY: [place] [address] PATHOLOGIST TERRY CLOTH CUTTER HAND MARLYN MCKEON M.D. Performed By: #### G LULS #### Point of Care testing , MR head/brain wo/w conon MR head/brain wo/w con [facility] [place] [id number] MRI Report Signed Patient: Bhumika Umana JR MR#: [id number] : 1975 Acct:[id number] Age/Sex: 48 / M ADM Date: 03/23/24 Loc: Room: [address] [place] [address] Type: ADM IN Attending Dr: Elder Iyer [...] Gonzales Jr., D.O.03/23/2024 10:46 AM Dictation Location: [place] [address] Transcribed By: [facility] 03/23/24 1046 Dictated By: Rene Gonzales Jr, DO 03/23/24 1039 Signed By: 03/23/24 1046 Normal [facility] Monocyte distribution width [Entitic volume] in Blood by AutomatedOrdered By: Gale Gonzales on 03-23-2024 Monocyte distribution width Auto (Bld) [Entitic vol] Test not performed % 0.00-20.00 [facility] Comment on above: Unable to calculate MDW because the Absolute Monocyte Count is <0.8. Partial Thromboplastin Timeo n 03-23-2024 aPTT Coag (Bld) [Time] 22.2 s Low 25.1-36.5 [facility] Comment on above: Result Comment: A he matocrit value greater than 55% may lead to inaccurate results in coagulation testing. Patients having hematocrit values >55% require a special collection tube for coagulation studies. Please contact the laboratory at [phone] for redraw instructions. PERFORMED BY: [place] [address] PATHOLOGIST TERRY CLOTH CUTTER HAND MARLYN MCKEON M.D. Performed By: #### C MG GARCIA PHOS, CMP #### [address] Prothrombin Time INRon 03-23 INR Coag (PPP) [Relative time] 1.0 {INR} Normal [facility] Comment on above: [...] #### C MG RADHA PHOS, CMP #### [address] PT Coag (PPP) [Time] 11.7 s Normal 9.0-12.9 [facility] Comment on above: Result Comment: A he matocrit value greater than 55% may lead to inaccurate results in coagulation testing. Patients having hematocrit values >55% require a special collection tube for coagulation studies. Please contact the laboratory at [phone] for redraw instructions. Performed By: #### C MG RADHA PHOS, CMP #### [address] Thyrotropin [Units/volume] i n Serum or PlasmaOrdered By: Bola Garcia on 03-23-2024 TSH Qn 0.48 m[IU]/L Normal 0.45-5.33 [facility] Comment on above: Performed By: #### G LULS #### Point of Care testing , Troponin I High Sensitivityo n 03-23-2024 Troponin I High Sensitivity 3.3 pg/mL Normal 0.0-20.0 [facility] Comment on above: Result Comment: PERF ORMED BY: [place] [address] PATHOLOGIST TERRY CLOTH CUTTER HAND MARLYN MCKEON M.D. Performed By: #### C BC, MG, PHOS, CMP #### [facility] [address] Troponin I.cardiac [Mass/vol ume] in Serum or Plasma by Detection limit <= 0.01 ng/Ordered By: Gale Gonzales on 03-23-2024 Troponin I.cardiac DL <= 0.01 ng/mL [Mass/Vol] 3.3 pg/mL 0.0-20.0 [facility] Vit. B12/Folate Profileon Folate 13.0 ng/mL Normal >5.9 [facility] Comment on above: [...] (Vitamin B12) [Mass/Vol] 416 pg/mL Normal 180-914 [facility] Comment on above: Performed By: #### G LULS #### Point of Care testing , Vitamin D 25 Hydroxy Totalon 03-23-2024 Vitamin D 25 Hydroxy Total 21.6 ng/mL Low 30-100 [facility] Comment on above: Result Comment: KAYLEY MIN D STATUS 25(OH)VITAMIN D RANGE (ng/mL) Deficient <20 Insufficient 20 to <30 Sufficient 30 to 100 Reference: Titi MF,Kalee NC, Brett BROOKS, et al. Evaluation,treatment, and prevention of vitamin D deficiency; an Endocrine Society clinical practice guideline. JCEM. 2010; 96(7):1911-30. PERFORMED BY: [facility] [address] [place] [address] PATHOLOGIST TERRY CLOTH CUTTER HAND MARLYN MCKEON M.D. Performed By: #### G LULS #### Point of Care testing , Vitamin D+Metabolites [Mass/ volume] in Serum or PlasmaOrdered By: Bola Garcia on 03-23-2024 Vitamin D+Metabolites [Mass/Vol] 21.6 ng/mL Low 30-100 [facility] Comment on above: VITAMIN D STATUS 25( OH)VITAMIN D RANGE (ng/mL) Deficient <20 Insufficient 20 to <30Sufficient 30 to 100Reference: Titi MF,Kalee NC, Brett BROOKS, et al. Evaluation,treatment, and prevention of vitamin D deficiency; an Endocrine Society clinical practice guideline. JCEM. 2010; 96(7):1911-30. XR chest 2V*on 03-23-2024 XR chest 2V* [facility] Main [place] [address] [place] [address] XRay Report Signed Patient: Bhumika Umana JR MR#: [id number] : 1975 Acct:[id number] Age/Sex: 48 / M ADM Date: 03/23/24 Loc: Room: [address] [place] [address] Type: ADM IN Attending Dr: Elder Iyer [...] Gonzales Jr., D.O.03/23/2024 9:33 AM Dictation Location: [place] [address] Transcribed By: [facility] 03/23/24 0933 Dictated By: Rene Gonzales Jr, DO 03/23/24 0933 Signed By: 03/23/24 0933 Normal [facility] XR ELBOW RT [...] JAKOB MCGHEE Date: 2022-04-23 12:40 Normal [facility] CBC AUTO DIFFon 01-11-2022 BASO # 0.0 103/ul Normal 0.0-0.1 [facility] Comment on above: Performed By: #### C BC #### [facility] [address] [place] [address] Dr. Sera Quach Basophils/100 WBC (Bld) 0.4 % Normal 0.2-2.0 [facility] Comment on above: Performed By: #### C BC #### [facility] [address] [place] [address] Dr. Sera Quach EO # 0.3 103/ul Normal 0.0-0.7 [facility] Comment on above: Performed By: #### C BC #### [facility] [address] [place] [address] Dr. Sera Quach Eosinophils/100 WBC (Bld) 2.8 % Normal 0.9-7.0 [facility] Comment on above: Performed By: #### C BC #### [facility] [address] [place] [address] Dr. Sera Quach Erythrocyte distribution width (RBC) [Ratio] 13.1 % Normal 11.0-15.0 [facility] Comment on above: Performed By: #### C BC #### [facility] [address] [place] [address] Dr. Sera Quach Hematocrit (Bld) [Volume fraction] 47.3 % Normal 42.0-54.0 [facility] Comment on above: Performed By: #### C BC #### [facility] [address] [place] [address] Dr. Sera Quach Hemoglobin (Bld) [Mass/Vol] 15.2 g/dL Normal 14.0-18.0 [facility] Comment on above: Performed By: #### C BC #### [facility] [address] [place] [address] Dr. Sera Quach IG # 0.03 10e3/ul Normal 0.00-0.03 [facility] Comment on above: Performed By: #### C BC #### [facility] [address] [place] [address] Dr. Sera Quach IG % 0.3 % Normal 0.0-0.5 [facility] Comment on above: Performed By: #### C BC #### [facility] [address] [place] [address] Dr. Sera Quach LYMPH # 2.3 103/ul Normal 1.2-3.8 [facility] Comment on above: Performed By: #### C BC #### [facility] [address] [place] [address] Dr. Sera Quach Lymphocytes/100 WBC (Bld) 25.5 % Normal 20.5-60.0 [facility] Comment on above: Performed By: #### C BC #### [facility] [address] [place] [address] Dr. Sera Quach MANUAL DIFF REQ NO Normal [facility] Comment on above: Performed By: #### C BC #### [facility] [address] [place] [address] Dr. Sera Quach MCH (RBC) [Entitic mass] 29.2 pg Normal 25.9-34.0 [facility] Comment on above: Performed By: #### C BC #### [facility] [address] [place] [address] Dr. Sera Quach MCHC (RBC) [Mass/Vol] 32.1 g/dL Normal 29.9-35.2 [facility] Comment on above: Performed By: #### C BC #### [facility] [address] [place] [address] Dr. Sera Quach MCV (RBC) [Entitic vol] 91.0 fL Normal 80.0-94.0 [facility] Comment on above: Performed By: #### C BC #### [facility] [address] [place] [address] Dr. Sera Quach MONO # 0.7 103/ul Normal 0.3-0.8 [facility] Comment on above: Performed By: #### C BC #### [facility] [address] [place] [address] [address] Sera Quach Monocytes/100 WBC (Bld) 7.1 % Normal 1.7-12.0 [facility] Comment on above: Performed By: #### C BC #### [facility] [address] [place] [address] [address] Sera Quach NEUT # 5.9 103/ul Normal 1.4-6.5 [facility] Comment on above: Performed By: #### C BC #### [facility] [address] [place] [address] [address] Sera Quach Neutrophils/100 WBC (Bld) 63.9 % Normal 43.0-75.0 [facility] Comment on above: Performed By: #### C BC #### [facility] [address] [place] [address] Dr. Sera Quach Platelet mean volume (Bld) [Entitic vol] 9.3 fL Critically low 9.5-13.5 [facility] Comment on above: Performed By: #### C BC #### [facility] [address] [place] [address] Dr. Sera Quach PLT 316 103/ul Normal 150-450 [facility] Comment on above: Performed By: #### C BC #### [facility] [address] [place] [address] Dr. Sera Quahc RBC 5.20 106/ul Normal 4.70-6.10 [facility] Comment on above: Performed By: #### C BC #### [facility] [address] [place] [address] Dr. Sera Quach WBC 9.2 103/ul Normal 4.0-11.0 [facility] Comment on above: Performed By: #### C BC #### [facility] [address] [place] [address] Dr. Sera Quach GLYCOHEMOGLOBIN A1Con 2021 ADA RECOMMENDATION SEE BELOW Normal [facility] Comment on above: Result Comment: ADA RECOMMENDED LIMIT 4.0 - 6.0 ADA THERAPEUTIC TARGET < 7.0 ACTION SUGGESTED > 7.0 Performed By: #### A 1C #### [facility] [address] [place] [address] Dr. Sera Quach Glucose [Mass/Vol] 209 mg/dL Normal [facility] Comment on above: Performed By: #### A 1C #### [facility] [address] [place] [address] Dr. Sera Quach HbA1c (Bld) [Mass fraction] 8.9 % Critically high 4.5-6.2 [facility] Comment on above: Performed By: #### A 1C #### [facility] [address] [place] [address] Dr. Sera Quach LIPID PROFILEon 01-11-2022 CHOL-HDL RATIO NORM SEE BELOW Normal [facility] Comment on above: Result Comment: 3.3 - 4.4 LOW RISK 4.4 - 7.1 AVERAGE RISK 7.1 - 11.0 MODERATE RISK >11.0 HIGH RISK Performed By: #### C MP, LIPID #### [facility] [address] [place] [address] Dr. Sera Quach Cholesterol [Mass/Vol] 154 mg/dL Normal <=200 [facility] Comment on above: Performed By: #### C MP, LIPID #### [facility] [address] [place] [address] Dr. Sera Quach Cholesterol in HDL [Mass/Vol] 39 mg/dL Critically low 40-60 [facility] Comment on above: Performed By: #### C MP, LIPID #### [facility] [address] [place] [address] Dr. Sera Quach Cholesterol in LDL [Mass/Vol] 98.0 mg/dL Normal [facility] Comment on above: Performed By: #### C MP, LIPID #### [facility] [address] [place] [address] Dr. Sera Quach Cholesterol.total/Cho lesterol in HDL [Mass ratio] 3.9 {ratio} Normal [facility] Comment on above: Performed By: #### C MP, LIPID #### [facility] [address] [place] [address] [address] Sera Quach HDL NORMAL > or = 60 mg/dl - LO W CARDIOVASCULAR RISK <40 mg/dl - HIGH CARDIOVASCULAR RISK Normal [facility] Comment on above: Performed By: #### C MP, LIPID #### [facility] [address] [place] [address] [address] Sera Quach LDL CALC NORMAL SEE BELOW Normal [facility] Comment on above: Result Comment: <100 mg/dl OPTIMAL 100 - 129 mg/dl NEAR OR ABOVE OPTIMAL 130 - 159 mg/dl BORDERLINE HIGH 160 - 189 mg/dl HIGH >190 mg/dl VERY HIGH Performed By: #### C MP, LIPID #### [facility] [address] [place] [address] [address] Sera Quach Triglyceride [Mass/Vol] 85 mg/dL Normal <=150 [facility] Comment on above: Performed By: #### C MP, LIPID #### [facility] [address] [place] [address] Dr. Sera Quach VLDL CALC 17.0 mg/dL Normal [facility] Comment on above: Performed By: #### C MP, LIPID #### [facility] [address] [place] [address] Dr. Sera Quach MICROALBUMIN, RAND URon 12-26 mALB 1.3 mg/L Normal <=30.0 [facility] Comment on above: Performed By: #### M ALBR #### [facility] [address] [place] [address] Dr. Sera Quach PROF 14(COMP METB)on 022 Albumin [Mass/Vol] 3.9 g/dL Normal 3.4-5.0 [facility] Comment on above: Performed By: #### C MP, LIPID #### [facility] [address] [place] [address] Dr. Sera Quach Albumin/Globulin [Mass ratio] 1.1 {ratio} Normal [facility] Comment on above: Performed By: #### C MP, LIPID #### [facility] [address] [place] [address] Dr. Sera Quach ALP [Catalytic activity/Vol] 76 U/L Normal 46-116 [facility] Comment on above: Performed By: #### C MP, LIPID #### [facility] [address] [place] [address] Dr. Sera Quach ALT [Catalytic activity/Vol] 64 U/L Critically high 16-63 [facility] Comment on above: Performed By: #### C MP, LIPID #### [facility] [address] [place] [address] [address] Sera Quach Anion gap [Moles/Vol] 12.7 mmol/L Normal [facility] Comment on above: Performed By: #### C MP, LIPID #### [facility] [address] [place] [address] Dr. Sera Quach AST [Catalytic activity/Vol] 37 U/L Normal 15-37 [facility] Comment on above: Performed By: #### C MP, LIPID #### [facility] [address] [place] [address] Dr. Sera Quach Bilirubin [Mass/Vol] 0.6 mg/dL Normal 0.2-1.0 [facility] Comment on above: Performed By: #### C MP, LIPID #### [facility] [address] [place] [address] Dr. Sera Quach Calcium [Mass/Vol] 9.0 mg/dL Normal 8.5-10.1 [facility] Comment on above: Performed By: #### C MP, LIPID #### [facility] [address] [place] [address] Dr. Sera Quach Chloride [Moles/Vol] 101 mmol/L Normal 98-107 [facility] Comment on above: Performed By: #### C MP, LIPID #### [facility] [address] [place] [address] Dr. Sera Quach CO2 [Moles/Vol] 27.6 mmol/L Normal 21.0-32.0 [facility] Comment on above: Performed By: #### C MP, LIPID #### [facility] [address] [place] [address] Dr. Sera Quach Creatinine [Mass/Vol] 0.75 mg/dL Normal 0.70-1.30 [facility] Comment on above: Performed By: #### C MP, LIPID #### [facility] [address] [place] [address] [address] Sera Quach EGFR-AF EMIRATI >60 Normal >=60 [facility] Comment on above: Performed By: #### C MP, LIPID #### [facility] [address] [place] [address] [address] Sera Quach EGFR-NON AF EMIRATI >60 Normal >=60 [facility] Comment on above: Performed By: #### C MP, LIPID #### [facility] [address] [place] [address] [address] Sera Quach Globulin (S) [Mass/Vol] 3.6 g/dL Normal [facility] Comment on above: Performed By: #### C MP, LIPID #### [facility] [address] [place] [address] Dr. Sera Quach Glucose [Mass/Vol] 184 mg/dL Critically high 74-106 [facility] Comment on above: Performed By: #### C MP, LIPID #### [facility] [address] [place] [address] [address] Sera Quach Potassium [Moles/Vol] 4.3 mmol/L Normal 3.5-5.1 [facility] Comment on above: Performed By: #### C MP, LIPID #### [facility] [address] [place] [address] Dr. Sera Quach Protein [Mass/Vol] 7.5 g/dL Normal 6.4-8.2 [facility] Comment on above: Performed By: #### C MP, LIPID #### [facility] [address] [place] [address] [address] Sera Quach Sodium [Moles/Vol] 137 mmol/L Normal 136-145 [facility] Comment on above: Performed By: #### C MP, LIPID #### [facility] [address] [place] [address] [address] Sera Quach Urea nitrogen [Mass/Vol] 12.0 mg/dL Normal 7.0-18.0 [facility] Comment on above: Performed By: #### C MP, LIPID #### [facility] [address] [place] [address] [address] Sera Quach Urea nitrogen/Creatinine [Mass ratio] 16.0 mg/mg Normal [facility] Comment on above: Performed By: #### C MP, LIPID #### [facility] [address] [place] [address] [address] Sera Quach UA RANDOM W/MICROSCOPICon BACTERIA NONE SEEN Normal NONE SEEN [facility] Comment on above: Performed By: #### U AMIC #### [facility] [address] [place] [address] Dr. Sera Quach Bilirubin Ql (U) Negative Normal NEGATIVE [facility] Comment on above: Performed By: #### U AMIC #### [facility] [address] [place] [address] Dr. Sera Quach CAST NONE SEEN Normal NONE SEEN [facility] Comment on above: Performed By: #### U AMIC #### [facility] [address] [place] [address] Dr. Sera Quach Clarity (U) CLOUDY Abnormal CLEAR [facility] Comment on above: Performed By: #### U AMIC #### [facility] [address] [place] [address] Dr. Sera Quach Color (U) YELLOW Normal YELLOW [facility] Comment on above: Performed By: #### U AMIC #### [facility] [address] [place] [address] [address] Sera Quach Crystals LM Nom (Urine sed) SEEN Abnormal NONE SEEN [facility] Comment on above: Performed By: #### U AMIC #### [facility] [address] [place] [address] Dr. Sera Quach Epithelial cells LM Ql (Urine sed) RARE Normal NONE SEEN /RARE [facility] Comment on above: Performed By: #### U AMIC #### [facility] [address] [place] [address] Dr. Sera Quach Glucose Ql (U) Negative Normal NEGATIVE [facility] Comment on above: Performed By: #### U AMIC #### [facility] [address] [place] [address] [address] Sera Quach Hemoglobin Ql (U) Negative Normal NEGATIVE [facility] Comment on above: Performed By: #### U AMIC #### [facility] [address] [place] [address] [address] Sera Quach Ketones Ql (U) Negative Normal NEGATIVE [facility] Comment on above: Performed By: #### U AMIC #### [facility] [address] [place] [address] [address] Sera Quach LEUKOCYTES Negative Normal NEGATIVE [facility] Comment on above: Performed By: #### U AMIC #### [facility] [address] [place] [address] [address] Sera Quach MUCOUS NONE SEEN Normal NONE SEEN [facility] Comment on above: Performed By: #### U AMIC #### [facility] [address] [place] [address] [address] Sera Quach Nitrite Ql (U) Negative Normal NEGATIVE [facility] Comment on above: Performed By: #### U AMIC #### [facility] [address] [place] [address] [address] Sera Quach pH (U) 5.5 [pH] Normal 5-9 [facility] Comment on above: Performed By: #### U AMIC #### [facility] [address] [place] [address] [address] Sera Quach RBC NONE SEEN Abnormal 0-2 [facility] Comment on above: Performed By: #### U AMIC #### [facility] [address] [place] [address] Dr. Sera Quach SPEC GRAVITY 1.025 Normal 1.005-<=1.02 5 [facility] Comment on above: Performed By: #### U AMIC #### [facility] [address] [place] [address] Dr. Sera Quach UA PROTEIN Negative Normal NEGATIVE/ TRACE [facility] Comment on above: Performed By: #### U AMIC #### [facility] [address] [address] [address] Sera Quach Urobilinogen Qn (U) 1.0 {Jessika'U}/dL Normal 0.2 - 1. 0 [facility] Comment on above: Performed By: #### U AMIC #### [facility] [address] [place] [address] [address] Sera Quach WBC 0-2 Abnormal NONE SEEN [facility] Comment on above: Performed By: #### U AMIC #### [facility] [address] [address] [address] Sera Quach GLYCOHEMOGLOBIN A1Con 2020 ADA RECOMMENDATION ADA THERAPEUTIC TARG ET 6.0 - 7.0 ACTION SUGGESTED > 7.0 Normal [facility] Comment on above: Performed By: #### A 1C #### [facility] [address] [place] [address] Dania Ev Glucose [Mass/Vol] 174 mg/dL Normal [facility] Comment on above: Performed By: #### A 1C #### [facility] [address] [address] Dania Ev HbA1c (Bld) [Mass fraction] 7.7 % Critically high <=6.0 [facility] Comment on above: Performed By: #### A 1C #### [facility] [address] [address] Dania Ev PROF CHEM 8 (BAS METB)on Anion gap [Moles/Vol] 9.0 mmol/L Normal [facility] Comment on above: Performed By: #### B MP #### [facility] [address] [id number] Dania Ev Calcium [Mass/Vol] 8.8 mg/dL Normal 8.4-10.2 [facility] Comment on above: Performed By: #### B MP #### [facility] [address] [id number] Dania Ev Chloride [Moles/Vol] 102 mmol/L Normal 98-107 [facility] Comment on above: Performed By: #### B MP #### [facility] [address] [place], [place] [address] Dania Ev CO2 [Moles/Vol] 29.1 mmol/L Normal 22.0-30.0 [facility] Comment on above: Performed By: #### B MP #### [facility] [address] [id number] Dania Ev Creatinine [Mass/Vol] 0.73 mg/dL Normal 0.66-1.25 [facility] Comment on above: Performed By: #### B MP #### [facility] [address] [place], [place] [address] Dania Ev EGFR-AF EMIRATI >60 Normal >=60 [facility] Comment on above: Performed By: #### B MP #### [facility] [address] [id number] Dania Ev EGFR-NON AF EMIRATI >60 Normal >=60 [facility] Comment on above: Performed By: #### B MP #### [facility] [address] [id number] Dania Ev Glucose [Mass/Vol] 141 mg/dL Critically high 74-106 [facility] Comment on above: Performed By: #### B MP #### [facility] [address] [id number] Dania Ev Potassium [Moles/Vol] 4.1 mmol/L Normal 3.4-5.0 [facility] Comment on above: Performed By: #### B MP #### [facility] [address] [id number] Dania Ev Sodium [Moles/Vol] 136 mmol/L Critically low 137-145 [facility] Comment on above: Performed By: #### B MP #### [facility] [address] [place], [place] [id number] Dania Ev Urea nitrogen [Mass/Vol] 9.0 mg/dL Normal 9.0-20.0 [facility] Comment on above: Performed By: #### B MP #### [facility] [address] [id number] Dania Ev Urea nitrogen/Creatinine [Mass ratio] 12.3 mg/mg Normal [facility] Comment on above: Performed By: #### B MP #### [facility] [address] [address] Dania Carreno Vital Signs Date Time Vital Sign Value Performing Clinician Facility 07-22-2024 18:34-0500 Body height 190.5 cm Cecy Hernandez PSYCHOLOGICAL OPERATIONS OFFICER Work Phone: [facility] 07-22-2024 18:34-0500 Body mass index (BMI) [Ratio] 39.47 kg/m2 Cecyap Caballeroz PSYCHOLOGICAL OPERATIONS OFFICER Work Phone: [facility] 07-22-2024 18:34-0500 Body temperature 98.01 [degF] Cecy Caballeroz PSYCHOLOGICAL OPERATIONS OFFICER Work Phone: [facility] 07-22-2024 18:34-0500 Body weight 143.25 kg Cecy Caballeroz PSYCHOLOGICAL OPERATIONS OFFICER Work Phone: [facility] 07-22-2024 18:34-0500 Diastolic blood pressure 86 mm[Hg] Cecy Hernandez PSYCHOLOGICAL OPERATIONS OFFICER Work Phone: [facility] 07-22-2024 18:34-0500 Heart rate 95 /min Cecyap Caballeroz PSYCHOLOGICAL OPERATIONS OFFICER Work Phone: [facility] 07-22-2024 18:34-0500 SaO2% (BldA) [Mass fraction] 96 % Cecyap Gordonfroylanrodolfo PSYCHOLOGICAL OPERATIONS OFFICER Work Phone: [facility] 07-22-2024 18:34-0500 Systolic blood pressure 120 mm[Hg] Cecy Caballerorodolfo PSYCHOLOGICAL OPERATIONS OFFICER Work Phone: [facility] 07-10-2024 09:46-0500 Body height 190.5 cm Darek Valdovinos MD Work Phone: [facility] 07-10-2024 09:46-0500 Body mass index (BMI) [Ratio] 39.9 kg/m2 Darek Valdovinos MD Work Phone: [facility] 07-10-2024 09:46-0500 Body weight 144.8 kg Darek Valdovinos MD Work Phone: [facility] 07-10-2024 09:46-0500 Diastolic blood pressure 79 mm[Hg] Darek Valdovinos MD Work Phone: [facility] 07-10-2024 09:46-0500 Heart rate 78 /min Darek Valdovinos MD Work Phone: [facility] 07-10-2024 09:46-0500 Systolic blood pressure 139 mm[Hg] Darek Valdovinos MD Work Phone: [facility] 06-22-2024 19:45-0400 Body height 190.5 cm Hector Napoles MD Work Phone: [facility] 06-22-2024 19:45-0400 Body mass index (BMI) [Ratio] 40.62 kg/m2 Hector Napoles MD Work Phone: [facility] 06-22-2024 19:45-0400 Body weight 147.42 kg Hector Napoles MD Work Phone: [facility] 06-22-2024 19:44-0400 Body temperature 99.1 [degF] Hector Napoles MD Work Phone: [facility] 06-22-2024 19:44-0400 Diastolic blood pressure 77 mm[Hg] Hector Napoles MD Work Phone: [facility] 06-22-2024 19:44-0400 Heart rate 98 /min Hector Napoles MD Work Phone: [facility] 06-22-2024 19:44-0400 Respiratory rate 16 /min Hector Napoles MD Work Phone: [facility] 06-22-2024 19:44-0400 SaO2% (BldA) [Mass fraction] 98 % Hector Napoles MD Work Phone: [facility] 06-22-2024 19:44-0400 Systolic blood pressure 167 mm[Hg] Hector Napoles MD Work Phone: [facility] 06-18-2024 22:15-0400 Heart rate 76 /min [facility] 06-18-2024 22:15-0400 Respiratory rate 17 /min [facility] 06-18-2024 22:15-0400 SaO2% (BldA) [Mass fraction] 98 % [facility] 06-18-2024 22:14-0400 Diastolic blood pressure 88 mm[Hg] [facility] 06-18-2024 22:14-0400 Systolic blood pressure 122 mm[Hg] [facility] 06-18-2024 19:22-0400 Body height 190.5 cm [facility] [employer] [facility] 06-18-2024 19:22-0400 Body mass index (BMI) [Ratio] 40.62 kg/m2 [facility] 06-18-2024 19:22-0400 Body weight 147.42 kg [facility] 06-18-2024 19:21-0400 Body temperature 98.4 [degF] [facility] [employer] [facility] 06-12-2024 13:14-0400 Body weight 148.33 kg Lula Cota MD Work Phone: [facility] 06-12-2024 13:14-0400 Diastolic blood pressure 78 mm[Hg] Lula Cota MD Work Phone: [facility] 06-12-2024 13:14-0400 Respiratory rate 18 /min Lula Cota MD Work Phone: [facility] 06-12-2024 13:14-0400 Systolic blood pressure 122 mm[Hg] Lula Cota MD Work Phone: [facility] 03-30-2024 12:00-0400 Body temperature 98 [degF] Cecy Hernandez Work Phone: [facility] 03-30-2024 12:00-0400 Diastolic blood pressure 88 mm[Hg] Ccey Hernandez Work Phone: [facility] 03-30-2024 12:00-0400 Heart rate 80 /min Cecy Aichholz Work Phone: [facility] 03-30-2024 12:00-0400 Respiratory rate 19 /min Cecy Aichholz Work Phone: [facility] 03-30-2024 12:00-0400 SaO2% (BldA) [Mass fraction] 95 % Cecy Aichholz Work Phone: [facility] 03-30-2024 12:00-0400 Systolic blood pressure 140 mm[Hg] Cecy Aichholz Work Phone: [facility] 03-30-2024 02:25-0400 Body height 190.5 cm Cecy Aichholz Work Phone: [facility] 03-30-2024 02:25-0400 Body weight 151.5 kg Cecy Aichholz Work Phone: [facility] 03-30-2024 02:03-0400 Body temperature 98.3 [degF] Cecy Aichholz Work Phone: [facility] 03-30-2024 02:03-0400 Diastolic blood pressure 73 mm[Hg] Cecy Aichholz Work Phone: [facility] 03-30-2024 02:03-0400 Heart rate 62 /min Cecy Aichholz Work Phone: [facility] 03-30-2024 02:03-0400 Respiratory rate 18 /min Cecy Aichholz Work Phone: [facility] 03-30-2024 02:03-0400 SaO2% (BldA) [Mass fraction] 96 % Cecy Aichholz Work Phone: [facility] 03-30-2024 02:03-0400 Systolic blood pressure 133 mm[Hg] Cecy Aichholz Work Phone: [facility] 03-29-2024 22:19-0400 Body height 190.5 cm Cecy Aichholz Work Phone: [facility] 03-29-2024 22:19-0400 Body weight 151.9 kg Cecy Aichholz Work Phone: [facility] 03-25-2024 16:05-0400 Diastolic blood pressure 83 mm[Hg] Cecy Aichholz Work Phone: [facility] 03-25-2024 16:05-0400 Heart rate 86 /min Cecy Aichholz Work Phone: [facility] 03-25-2024 16:05-0400 Respiratory rate 18 /min Cecy Aichholz Work Phone: [facility] 03-25-2024 16:05-0400 SaO2% (BldA) [Mass fraction] 98 % Cecy Aichholz Work Phone: [facility] 03-25-2024 16:05-0400 Systolic blood pressure 120 mm[Hg] Cecy Aichholz Work Phone: [facility] 03-25-2024 09:37-0400 Body temperature 98 [degF] Cecy Aichholz Work Phone: [facility] 03-25-2024 06:32-0400 Body weight 149.5 kg Cecy Aichholz Work Phone: [facility] 03-23-2024 03:31-0400 Body height 190.5 cm Cecy Aichholz Work Phone: [facility] 10-08-2021 13:30-0500 Body height 190.5 cm Yue Pedroza Other [employer] Other 10-08-2021 13:30-0500 Body mass index (BMI) [Ratio] 45.12 kg/m2 Yue Pedroza Other [employer] Other 10-08-2021 13:30-0500 Body temperature 96.6 [degF] Yue Pedroza Other [employer] Other 10-08-2021 13:30-0500 Body weight 163.75 kg Yue Pedroza Other [employer] Other 10-08-2021 13:30-0500 SaO2% (BldA) [Mass fraction] 98 % Yue Pedroza Other [employer] Other Encounters Encounter Date Encounter Type Care Provider Facility Start: 07-30-2024 End: 07-30-2024 Refill Cecy Hernandez PSYCHOLOGICAL OPERATIONS OFFICER Work Phone: [facility] Comment on above: Type 2 diabetes genet itus without complication, without long- term current use of insulin (CMS/HCC) Start: 07-22-2024 End: 07-22-2024 Office outpatient visit 25 minutes Cecy Hernandez PSYCHOLOGICAL OPERATIONS OFFICER Work Phone: [facility] Comment on above: Upper extremity weak [...] 07-22-2024 End: 07-22-2024 Bamboo flowsheet Cecy Hernandez PSYCHOLOGICAL OPERATIONS OFFICER Work Phone: [facility] Start: 07-22-2024 End: 07-22-2024 Bamboo flowsheet Cecy Hernandez PSYCHOLOGICAL OPERATIONS OFFICER Work Phone: [facility] Start: 07-11-2024 End: 07-11-2024 Social Work Marvin Maldonado [employer] Primary [facility] Social Work Comment on above: Financial difficulty (Primary Dx) Start: 07-10-2024 End: 07-10-2024 Office outpatient new 45 minutes Darek Valdovinos MD Work Phone: Neurology Comment on above: Brachial plexopathy (Primary Dx); Obesity, Class II, BMI 35-39.9 Start: 07-10-2024 End: 07-10-2024 ambulatory DAREK VALDOVINOS Facility:[facility] Start: 06-27-2024 End: 06-27-2024 Refill Cecy Hernandez PSYCHOLOGICAL OPERATIONS OFFICER Work Phone: [facility] Comment on [...] Start: 06-24-2024 End: 06-26-2024 ambulatory LEANAAMMAD ABDELHALEEM YARSANI ALAMER Facility:[facility] Start: 06-24-2024 End: 06-25-2024 Clinisync Result Encounter Generic External Data Provider [facility] External Department Unsolicited Start: 06-24-2024 End: 06-25-2024 Clinisync Result Encounter Generic External Data Provider [facility] External Department Unsolicited Start: 06-22-2024 End: 06-22-2024 Emergency department patient visit Hector Napoles MD Work Phone: [facility] Start: 06-18-2024 End: 06-18-2024 Emergency department patient visit [facility] Start: 06-12-2024 End: 06-12-2024 Office outpatient visit 25 minutes Lula Cota MD Work Phone: [facility] Comment on above: Primary osteoarthrit is of both hands (Primary Dx); Myopathy; Diabetic cheirarthropathy (CMS-HCC) Start: 06-12-2024 End: 06-12-2024 ambulatory [facility] Start: 06-07-2024 End: 06-07-2024 ambulatory [facility] Start: 05-29-2024 End: 05-29-2024 Refill Cecy Hernandez PSYCHOLOGICAL OPERATIONS OFFICER Work Phone: [facility] Comment on above: Type 2 diabetes genet itus without complication, without long- term current use of insulin (CMS/HCC); Type 2 diabetes mellitus without complications (CMS/HCC); Depression, unspecified (CMS/HCC); Other chronic pain Start: 05-28-2024 End: 05-28-2024 Clinisync Result Encounter Cecy David PSYCHOLOGICAL OPERATIONS OFFICER Work Phone: [facility] Department Unsolicited Start: 05-28-2024 End: 05-28-2024 Clinisync Result Encounter Cecy David PSYCHOLOGICAL OPERATIONS OFFICER Work Phone: [facility] External Department Unsolicited Start: 05-21-2024 End: 05-21-2024 ambulatory CECY AICHHOLZ Not Available Start: 05-01-2024 End: 05-01-2024 ambulatory MARYJANE LIANG Not Available Start: 04-17-2024 End: 04-17-2024 ambulatory [facility] Start: 04-04-2024 End: 04-04-2024 ambulatory CECY AICHHOLZ Not Available Start: 04-03-2024 End: 04-03-2024 ambulatory MARYJANE LIANG Not Available Start: 03-30-2024 End: 03-30-[address] Facility:[facility] Start: 03-30-2024 End: 03-30-2024 Evaluation and management of inpatient Cecy Aichholz Work Phone: [facility] Work Phone: Start: 03-30-2024 End: 03-30-2024 observation encounter Cecy Miranda Aichholz Work Phone: [facility] Work Phone: Start: 03-23-2024 End: 03-25-2024 Evaluation and management of inpatient Cecy Aichholz Work Phone: [facility] Work Phone: Start: 03-04-2024 End: [...] Physicians Rhe[facility] Start: 10-11-2023 Refill Cecy Aichholz PSYCHOLOGICAL OPERATIONS OFFICER Work Phone: [facility] Comment on above: Type 2 diabetes genet itus without complication, without long- term current use of insulin (CMS/HCC) (Primary Dx); Type 2 diabetes mellitus without complications (CMS/HCC) Start: 08-16-2023 End: 08-16-2023 ambulatory CECY AICHHOLZ Not Available Start: 04-23-2022 End: 04-23-2022 ambulatory [employer] CECY AICHHOLZ Facility:[facility] Start: 01-11-2022 End: 01-12-2022 ambulatory [employer] CECY AICHHOLZ Facility:[facility] Start: 10-08-2021 End: 10-08-2021 ambulatory Yue Pedroza Other [employer] Other Start: 10-08-2021 Office outpatient vi sit 15 minutes Yue Pedroza [facility] Start: 06-07-2021 End: 06-07-2021 ambulatory [employer]ORQUE TE[employer] CECY HERNANDEZ Facility:[facility] Start: 05-05-2021 End: 05-06-2021 ambulatory [employer] CECY HERNANDEZ Facility:[facility] Start: 06-08-2018 End: 06-09-2018 [...] Start: 05-28-2024 MLR HEMOGLOBIN A1C Cecy Hernandez PSYCHOLOGICAL OPERATIONS OFFICER Work Phone: Start: 04-23-2024 Colonoscopy Cecy quijano PSYCHOLOGICAL OPERATIONS OFFICER Work Phone: Start: 03-29-2024 CT of head [...] Screening for malign ant neoplasm of colon [facility] Start: 06-26-2027 Diabetes Screening Diabetes Screenin g [facility] Start: 02-15-2025 Urine screening for protein Diabetes: Urine Protein Screening [facility] Start: 12-23-2024 Hemoglobin A1c measurement Diabetes: Hemoglobin A1C [facility] Start: 11-26-2024 Hemoglobin A1c measurement Diabetes: Hemoglobin A1C [facility] Start: 09-12-2024 End: 06-12-2025 C-reactive protein C-reactive protein Lab Routine Primary osteoarthritis of both hands Expected: 09/12/2024 (Approximate), Expires: 06/12/2025 [facility] Comment on above: Expected: 09/12/2024 (Approximate), Expires: 06/12/2025 Start: 09-12-2024 End: 06-12-2025 CBC W Auto Differential panel - Blood CBC auto differential Lab Routine Primary osteoarthritis of both hands Expected: 09/12/2024 (Approximate), Expires: 06/12/2025 [facility] Comment on above: Expected: 09/12/2024 (Approximate), Expires: 06/12/2025 Start: 09-12-2024 End: 06-12-2025 Comprehensive metabolic 2000 panel - Serum or Plasma Comprehensive metabolic panel Lab Routine Primary osteoarthritis of both hands Expected: 09/12/2024 (Approximate), Expires: 06/12/2025 [facility] Comment on above: Expected: 09/12/2024 (Approximate), Expires: 06/12/2025 Start: 09-12-2024 End: 06-12-2025 Erythrocyte sedimentation rate Erythrocyte Sedimentation Rate (ESR) Lab Routine Primary osteoarthritis of both hands Expected: 09/12/2024 (Approximate), Expires: 06/12/2025 [facility] Work Phone: Comment on above: Expected: 09/12/2024 (Approximate), Expires: 06/12/2025 Start: 09-11-2024 End: 09-11-2024 Patient encounter procedure 09/11/2024 1:15 PM EST Office Visit [facility] [address] [phone] Lula Cota MD [address] [address] [facility] Start: 08-19-2024 End: 08-19-2024 Patient encounter procedure 08/19/2024 3:40 PM EST Office Visit [facility] [address] [place] [address] Cecy Hernandez, DARIO [address] [place] [phone] [facility] Start: 08-17-2024 Hemoglobin A1c measurement Diabetes: Hemoglobin A1C [facility] Start: 07-23-2024 End: 07-23-2024 Patient encounter procedure 07/23/2024 11:20 AM EST Office Visit [facility] [address] [place] [address] Maryjane Liang PA [address] [place] [address] [facility] [address] Start: 07-22-2024 End: 07-22-2024 Patient encounter procedure 07/22/2024 6:30 PM EST Office Visit [facility] [address] [place] [address] Cecy Hernandez, PSYCHOLOGICAL OPERATIONS OFFICER [address] [place] [phone] Arrived [facility] Comment on above: Arrived Start: 07-18-2024 End: 07-18-2024 Patient encounter procedure 07/18/2024 2:40 PM EST Office Visit [facility] [address] [place] [phone] Cecy Hernandez, PSYCHOLOGICAL OPERATIONS OFFICER [address] [place] [phone] [facility] Start: 06-12-2024 End: 06-12-2025 CK Total CK Total Lab Routine Primary osteoarthritis of both hands Expected: 06/12/2024 (Approximate), Expires: 06/12/2025 [facility] Comment on above: Expected: 06/12/2024 (Approximate), Expires: 06/12/2025 Start: 06-12-2024 End: 06-12-2025 Cyanocobalamin vitamin b-12 Vitamin B12 Lab Routine Primary osteoarthritis of both hands Expected: 06/12/2024, Expires: 06/12/2025 [facility] Comment on above: Expected: 06/12/2024 , Expires: 06/12/2025 Start: 06-12-2024 End: 06-12-2025 LDH LDH Lab Routine Primary osteoarthritis of both hands Expected: 06/12/2024 (Approximate), Expires: 06/12/2025 [facility] Comment on above: Expected: 06/12/2024 (Approximate), Expires: 06/12/2025 Start: 06-12-2024 End: 06-12-2025 Thyrotropin [Units/volume] in Serum or Plasma [facility] Comment on above: Expected: 06/12/2024 , Expires: 06/12/2025 Start: 06-12-2024 End: 06-12-2025 Unlisted Lab Test Unlisted Lab Test Lab Routine Myopathy Expected: 06/12/2024, Expires: 06/12/2025 [facility] Comment on above: Expected: 06/12/2024 , Expires: 06/12/2025 Start: 06-12-2024 End: 06-12-2025 Vitamin D 25 hydroxy Vitamin D 25 hydroxy Lab Routine Primary osteoarthritis of both hands Expected: 06/12/2024, Expires: 06/12/2025 [facility] Comment on above: Expected: 06/12/2024 , Expires: 06/12/2025 Start: 04-28-2024 COVID-19 VACCINE () COVID-19 VACCINE () [facility] Start: 04-28-2024 COVID-19 Vaccine (3 - 2023-24 season) COVID-19 Vaccine ( season) [facility] Start: 04-28-2024 Covid-19 Vaccine () Covid-19 Vaccine () [facility] Start: 04-28-2024 Influenza vaccination INFLUENZA VACC INE (#1) [facility] Start: 04-04-2024 DTaP,Tdap and Td Vaccines (2 - Td or Tdap) DTaP,Tdap and Td Vaccines (2 - Td or Tdap) [facility] Start: 04-04-2024 Tetanus vaccination TETANUS [facility] Start: 04-04-2024 Urine microalbumin profile DTaP,Tdap,Td Vaccine (2 - Td or Tdap) [facility] Start: 03-30-2024 End: 03-30-2024 [facility] Start: 03-30-2024 Physical therapy procedure [facility] Start: 03-30-2024 Referral to neurologist [facility] Start: 03-30-2024 Referral to occupati onal therapist [facility] Start: 03-30-2024 [facility] Start: 03-30-2024 Hospital admission [facility] Start: 03-29-2024 CT of head without contrast CT head/brain wo con [facility] Start: 03-29-2024 CT Unspecified body region WO contrast [facility] Start: 03-25-2024 [facility] Start: 03-25-2024 Cerebrospinal fluid culture [facility] Start: 03-24-2024 [facility] Start: 03-23-2024 [facility] Start: 03-23-2024 Hospital admission [facility] Start: 03-23-2024 Referral to neurologist [facility] Start: 01-14-2024 Urine screening for protein Diabetes: Urine Protein Screening [facility] Start: 01-03-2024 End: 01-03-2024 Patient encounter procedure 01/03/2024 3:00 PM EDT Office Visit [facility] [address] [phone] Lula Cota MD [address] [address] [facility] Start: 12-27-2023 Screening for malign ant neoplasm of colon [facility] Start: 11-16-2023 End: 11-16-2023 Patient encounter procedure 11/16/2023 1:20 PM EDT Office Visit [facility] [address] [place] [address] Cecy Hernandez NP [address] [place] [address] [facility] Start: 11-03-2023 Hemoglobin A1c measurement Diabetes: Hemoglobin A1C [facility] Start: 04-28-2023 Influenza vaccination Influenza Vacc ine [facility] Start: 2022 Screening for malign ant neoplasm of colon [facility] Start: 04-28-2020 Influenza vaccination INFLUENZA (#1) [facility] Start: 2017 Lipid panel LIPID SCREENING [facility] Start: 2012 Lipid panel Lipid Screening [facility] Start: 2012 LIPID SCREEN LIPID SCREEN [facility] Start: 1996 DTaP,Tdap and Td Vaccines (1 - Tdap) DTaP,Tdap and Td Vaccines (1 - Tdap) [facility] Start: 1996 Hepatitis B vaccination HEP B VACCINE (1 of 3 - 19+ 3-dose series) [facility] Start: 1996 Hepatitis B Vaccine (1 of 3 - 19+ 3-dose series) Hepatitis B Vaccine (1 of 3 - 19+ 3-dose series) [facility] Start: 1996 Urine microalbumin profile DTAP,TDAP,TD (1 - Tdap) [facility] Start: 1995 Adult BMI Screening Adult BMI Screen ing [facility] Start: 1995 Anxiety Screening Anxiety Screening [facility] Start: 1995 Depression Screening Depression Scre ening [facility] Start: 1995 Diabetic foot examination Diabetic Foot Exam [facility] Start: 1995 HIV SCREENING HIV SCREENING [facility] Start: 1992 HIV screening HIV SCREENING DISCUSSION [facility] Start: 1989 Depression Screening Depression Scre ening [facility] Start: 1989 Tobacco Screening Tobacco Screening [facility] Start: 1987 Glaucoma screening Diabetes: R etinopathy Screening [facility] Start: 1977 Glaucoma screening Diabetic Op hthalmology Exam [facility] Start: 1977 Hepatitis C screening HEPATITI S C VIRUS SCREENING [facility] Start: 1977 Potassium [Moles/vol ume] in Serum or Plasma POTASSIUM [facility] Start: 1977 Screening for malign ant neoplasm of colon [facility] Start: 1977 Urine screening for protein Urine Microalbumin [facility] Albumin [Mass/volume ] in Cerebral spinal fluid [facility] Albumin [Mass/volume ] in Serum or Plasma [facility] Anion gap measurement [facility] Bacteria identified in Unspecified specimen by Aerobe culture [facility] Bacteria identified in Unspecified specimen by Anaerobe culture [facility] Basophils [#/volume] in Blood by Automated count [facility] Basophils/100 leukoc ytes in Blood by Automated count [facility] Borrelia burgdorferi IgG+IgM Ab [Presence] in Serum by Immunoassay [facility] C reactive protein [Mass/volume] in Serum or Plasma C-reactive protein Lab Routine Primary osteoarthritis of both hands 06/12/2024 2:11 PM EDT [facility] CBC W Auto Different ial panel - Blood CBC auto differential Lab Routine Primary osteoarthritis of both hands 06/12/2024 2:11 PM EDT [facility] Cerebrospinal fluid IgG ratio and IgG index [facility] Cobalamin (Vitamin B 12) [Mass/volume] in Serum or Plasma Vitamin B12 Lab Routine Primary osteoarthritis of both hands 06/12/2024 2:11 PM EDT [facility] Comprehensive metabo lic 2000 panel - Serum or Plasma Comprehensive metabolic panel Lab Routine Primary osteoarthritis of both hands 06/12/2024 2:11 PM EDT [facility] Creatine kinase [Enzymatic activity/volume] in Serum or Plasma CK Total Lab Routine Primary osteoarthritis of both hands 06/12/2024 2:11 PM [facility] End: 07-10-2025 EMG(NEURO/NI) EMG(NEURO/NI) EMG Routine Brachial plexopathy 1 Occurrences starting 07/10/2024 until 07/10/2025 [facility] Work Phone: Comment on above: 1 Occurrences starti ng 07/10/2024 until 07/10/2025 Eosinophils/100 leukocytes in Blood by Automated count [facility] Erythrocyte distribu tion width [Ratio] by Automated count [facility] Erythrocyte sedimentation rate by Photometric method Erythrocyte Sedimentation Rate (ESR) Lab Routine Primary osteoarthritis of both hands 06/12/2024 2:11 PM EDT [facility] Erythrocytes [#/volu me] in Blood [facility] Hematocrit [Volume Fraction] of Blood [facility] Hemoglobin [Mass/vol ume] in Blood [facility] IgG [Mass/volume] in Cerebral spinal fluid [facility] IgG [Mass/volume] in Serum or Plasma [facility] IgG clearance/Albumi n clearance [Ratio] in Serum and CSF [facility] IgG synthesis rate [Mass/time] in Serum and CSF by calculation [facility] Lactate dehydrogenas e [Enzymatic activity/volume] in Serum or Plasma LDH Lab Routine Primary osteoarthritis of both hands 06/12/2024 2:11 PM EDT [facility] Leukocytes [#/volume ] corrected for nucleated erythrocytes in Blood by Automated coun [facility] Leukocytes [#/volume ] in Blood [facility] Lymphocytes [#/volum e] in Blood by Automated count [facility] Lymphocytes/100 leukocytes in Blood by Automated count [facility] MCH [Entitic mass] b y Automated count [facility] MCHC [Mass/volume] b y Automated count [facility] MCV [Entitic volume] by Automated count [facility] Monocytes [#/volume] in Blood by Automated count [facility] Monocytes/100 leukoc ytes in Blood by Automated count [facility] Myoglobin [Mass/volu me] in Serum or Plasma [facility] Neutrophils [#/volum e] in Blood by Automated count [facility] Neutrophils/100 leukocytes in Blood by Automated count [facility] Nucleated erythrocyt es [Presence] in Blood by Automated count [facility] Patient Education Know your Meds [facility] Work Phone: Patient referral [facility] Work Phone: Platelet mean volume [Entitic volume] in Blood by Automated count [facility] Platelets [#/volume] in Blood [facility] Protein fractions.oligoclonal bands.intrathecal [Presence] in Serum and CSF [facility] Unlisted Lab Test Anti-HMGCR Unlisted Lab Test Anti-HMGCR Lab Routine Myopathy 06/12/2024 2:11 PM EDT [facility] Vitamin D+Metabolite s [Mass/volume] in Serum or Plasma Vitamin D 25 hydroxy Lab Routine Primary osteoarthritis of both hands 06/12/2024 2:11 PM EDT [facility] Immunizations Immunization Date Immunization Notes Care Provider [facility] 05-09-2024 influenza, seasonal, injectable, preservative free Cecy Aichholz PSYCHOLOGICAL OPERATIONS OFFICER Work Phone: [facility] 07-05-2023 influenza, injectabl e, quadrivalent, preservative free Cecy Aichholz PSYCHOLOGICAL OPERATIONS OFFICER Work Phone: [facility] 07-05-2023 influenza virus vaccine, unspecified formulation [facility] 06-06-2023 influenza virus vaccine, unspecified formulation Cecy Aichholz PSYCHOLOGICAL OPERATIONS OFFICER Work Phone: [facility] 06-08-2022 influenza, injectabl e, quadrivalent, preservative free Cecy Aichholz PSYCHOLOGICAL OPERATIONS OFFICER Work Phone: [facility] 05-12-2021 influenza, injectabl e, quadrivalent, preservative free Cecy Aichholz PSYCHOLOGICAL OPERATIONS OFFICER Work Phone: [facility] 04-04-2014 tetanus toxoid, redu virginia diphtheria toxoid, and acellular pertussis vaccine, adsorbed Yue Kasia Other [facility] 06-12-2013 influenza virus vaccine, unspecified formulation Haylee Garcia [facility] Payers Date Payer Category Payer Self-pay 2022 Medicaid [id number] 2022 Medicaid [id number] 2013 Medicaid [place] MED[place] ID [employer] ADVANTAGE MEDICAID [id number] 2013-Present Medicaid [id number] 2013 Self-pay SELF PAY HSP/MED ICAL SELF PAY [id number] 2013-2015 SELF PAY Indemnity [id number] [id number] 1977 Unknown [id number] 2.16.840.1.301672.3.579.2.647 1977 Unknown [id number] 2.16.840.1.149952.3.579.2.593 1977 Unknown [id number] .16.840.1.335871.3.579.2.593 1977 Unknown [id number] 2.16.840.1.190327.3.579.2.593 1977 Unknown [id number] 2.16.840.1.574407.3.579.2.593 1977 Unknown [id number] 2.16.840.1.810054.3.579.2.1286 1977 Unknown [id number] 2.16.840.1.569767.3.579.2.1286 1977 Unknown [id number] 2.16.840.1.273197.3.579.2.1286 1977 Unknown [id number] 2.16.840.1.401875.3.579.2.1286 1977 Unknown [id number] 2.16.840.1.621040.3.579.2.1286 1977 Unknown [id number] 2.16.840.1.481433.3.579.2.6 1977 Unknown [id number] 2.16.840.1.945984.3.579.2.983 1977 Unknown [id number] 2.16.840.1.661262.3.579.2.983 1977 Unknown [id number] 2.16.840.1.190514.3.579.2.1258 1977 Unknown [id number] 2.16.840.1.266216.3.579.2.1258 1977 Unknown [id number] 2.16.840.1.775701.3.579.2.1258 1977 Unknown [id number] 2.16.840.1.082607.3.579.2.1258 1977 Unknown [id number] 2.16.840.1.527538.3.579.2.1258 1977 Unknown [id number] 2.16.840.1.458589.3.579.2.1258 1977 Unknown [id number] 2.16.840.1.300436.3.579.2.1258 1977 Unknown [id number] 2.16.840.1.409036.3.579.2.1258 1977 Unknown [id number] 2.16.840.1.795898.3.579.2.1258 1977 Unknown [id number] 2.16.840.1.984901.3.579.2.1258 1977 Unknown [id number] 2.16.840.1.108456.3.579.2.1259 1959 Unknown [id number] 2.16.840.1.173846.19 1959 Unknown [id number] Unknown Unknown [id number] 2.16.840.1.947633.3.579.2.531 Unknown [id number] 2.16.840.1.686246.3.579.2.531 Social History Date Type Detail Facility Start: 05-20-2013 End: 05-01-2024 Tobacco smoking status FLIS Former smoker [facility] Start: 05-20-2013 End: 07-10-2024 Alcohol intake Not Asked [facility] Start: 1975 Sex Assigned At Not on file [facility] Start: 08-16-2023 End: 11-15-2023 Sex Assigned At [...] day [facility] Tobacco smoking stat us [facility] Tobacco smoking consumption unknown [facility] Childcare Unknown [facility] Start: 1975 Sex Assigned At Male [facility] Start: 05-01-2024 End: 06-18-2024 Tobacco use and exposure Former smokeless tobacco user [facility] History of tobacco use Chews Tobacco [facility] Start: 05-21-2024 End: 07-22-2024 Alcoholic beverage intake Lifetime non-drinker (finding) [facility] Do you belong to any clubs or organizations such as moravian groups, unions, fraternal or athletic groups, or [...] [facility] Start: 01-06-2016 Sex Male (finding) [facility] Medical Equipment Procedure Code Equipment Code Equipment Origin al Text Equipment Identifier Dates 1 each by Other route Daily as needed [id number] Start: 10-13-2022 1 each by Other route if needed [id number] Start: 10-13-2022 1 each by Other route Daily [id number] Start: 04-04-2024 End: 07-13-2024 Goals Date Patient Goal Desired Activity /State Functional Status Date Assessment Result Facility 03-30-2024 Functional status Patient at Baseline [facility] Work Phone: 03-25-2024 Functional status Patient at Baseline [facility] Work Phone: Mental Status Date Assessment Result Facility 03-30-2024 Cognitive function Cognitive Sta tus Patient at Baseline [facility] Work Phone: 03-25-2024 Cognitive function Cognitive Sta tus Patient at Baseline [facility] Work Phone: Clinical Notes 10-08-2021 to [...] Upper extremity weakness Reviewed neurology notes from [facility] Associated Problem(s): Essential hypertension, benign (CMS/HCC) Not currently taking meds States was having hypotension when given meds in hospital Pt has moved to [place] with his brother he has fallen there [...] functioning. He has recently relocated back to [facility] living with his sister, after a brief period of time living with his brother in [place]. He is unable to use his Upper [...] mg, Daily RT Lancets (OneTouch Delica Plus [id number]) misc 1 each, Daily PRN lisinopril-hydroCHLOROthiazide 20-25 [...] Oral, Nightly PRN ALLERGIES: Allergies Allergen Reactions [place] Oil Hives Cashew Nut (Anacardium Occidentale) Skin Test Hives Cashew Nut Oil Dermatitis Other Unknown Oxytetracycline Unknown Penicillin G Unknown Penicillins Pedi-Pre Tape Lincoln [Wound Dressing Adhesive] Rash REVIEW OF SYMPTOMS: [...] (BMI) of 45.0 to 49.9 in adult ([facility]) 08/16/2023 Depression, controlled ([facility]) Epigastric pain Hypertension ([facility]) immunosupression Non compliance w medication regimen Non-compliant patient EDDI (obstructive sleep apnea) 11/16/2023 RA (rheumatoid arthritis) ([facility]) Seasonal allergies Tonsillitis as child Type 2 diabetes mellitus without complication, without long-term current use of insulin ([facility]) 08/16/2023 Past Surgical History: Procedure Laterality Date [...] Orders Ambulatory referral to Home Health Depression ([facility]) Not currently taking any medications Essential hypertension, benign (CMS/HCC) Not currently taking meds States was having hypotension when given meds in hospital Type 2 diabetes mellitus without complication, without long-term current use of insulin ([facility]) Not currently checking sugar, taking meds either Rheumatoid arthritis with rheumatoid factor, unspecified ([facility]) Differing reports as to if does have RA or not Upper extremity weakness - Primary Reviewed neurology notes from [facility] Relevant Orders Ambulatory referral to Home Health Weakness Read neurology notes Needs home health Relevant Orders Ambulatory referral to Home Health Obesity, Class II, BMI 35-39.9 Other Visit Diagnoses Depression, unspecified (CMS/HCC) Essential (primary) hypertension (CMS/HCC) Type 2 diabetes mellitus without complications ([facility]) documented in this encounter [facility] 07-22-2024 Instructions Cecy Hernandez NP - 07/22/2024 6:30 PM EST Cont with neurology Order home health documented in this encounter [facility] 07-11-2024 Note HNO ID: [id number] Author: MARVIN MALDONADO LSW Service: ? Author Type: Sign Board Erector Type: Progress Notes Filed: 07/11/2024 12:56 Note [...] provided information on housing assistance programs in [facility]. Provided pt with information on how to [...] Interventions: Advocacy Assessment Care transition Discharge from [facility] panel Education Empowering/Coaching Goal Setting SABINE Duran July 11, 2024 12:47 PM [facility] 07-11-2024 History of Present illness Narrative [...] provided information on housing assistance programs in [facility]. Provided pt with information on how to [...] Interventions: Advocacy Assessment Care transition Discharge from [facility] panel Education Empowering/Coaching Goal Setting SABINE Duran July 11, 2024 12:47 PM documented in this encounter [facility] 07-10-2024 Instructions Darek Valdovinos MD - 07/10/2024 10:54 AM EST We would like to repeat an EMG of your arms. This can be scheduled at any [facility] EMG lab. Please schedule follow-up in person with Dr. Valdovinos on August 14 To schedule Occupational Therapy: [facility]: [phone]. [facility]: [phone], Option 1 documented in this encounter [facility] 07-10-2024 Note HNO ID: [id number] Author: KEITH LEONE MD Service: ? Author Type: Physician Type: Progress Notes Filed: 07/10/2024 13:12 Note Text: [facility] for General Neurology New Patient Evaluation Consulting Provider: Errol Sanford [address] [facility] [address] Chief Complaint/Issues: Bhumika Umana is a 48 year old male with hx of ?RA, T2DM, past tobacco use, obesity, seen in the [facility] for General Neurology for: Progressive BL UE weakness and numbness Intermittent LE weakness HPI: Patient states symptoms started in December 2023 with numbness in his fingertips BL. Later than morning, he noticed he did not have any dining room tables set up attendant strength in his left hand. His right [...] he had celluliutis. He re-established with a mortarman locally who felt he did not have [...] 0 Pectoral A (more content not included)... [facility] 07-10-2024 History of Present illness Narrative Images from the original note were not included. [facility] for General Neurology New Patient Evaluation Consulting Provider: Errol Sanford [address] [facility] [address] Chief Complaint/Issues: Bhumika Umana is a 48 year old male with hx of ?RA, T2DM, past tobacco use, obesity, seen in the [facility] for General Neurology for: Progressive BL UE weakness and numbness Intermittent LE weakness HPI: Patient states symptoms started in December 2023 with numbness in his fingertips BL. Later than morning, he noticed he did not have any dining room tables set up attendant strength in his left hand. His right [...] he had celluliutis. He re-established with a mortarman locally who felt he did not have [...] 1. Brachial plexopathy G54.0 EMG(NEURO/NI) CONSULT TO APPLIED BIOLOGY PROFESSOR DISTRIBUTION FIELD TECHNICIAN [CONSULT TO SOCIAL WORK] CONSULT TO NEUROMUSCULAR [...] vertebrae with counting from the craniocervical junction. Store Consultant: PSCB Transcribe Date/Time: Jun 26 2024 7:33A [...] of Dr. Leone documented in this encounter [facility] 06-26-2024 Note HNO ID: [id number] Author: HONG CRUZ LSW Service: Care Management Author Type: Sign Board Erector Type: Care Mgt Progress Note Filed: 06/26/2024 [...] Physician Primary Care Physician Name/Phone: Cecy Hernandez, TORQUE TESTER [phone] Patient d/c ready to home with no skilled needs identified. Patient and bedside RN aware of plan. Brother to transport patient home via private auto this evening when he gets off of work. SIGNATURE: SABINE Weiss PATIENT NAME: Bhumika Umana DATE: June 26, 2024 TIME: 3:42 PM CONTACT #: [phone] [facility] 06-26-2024 Note HNO ID: [id number] Author: MADIHA HARDING RPh Service: Pharmacy Author [...] discharge medication list. Madiha Harding RPh Pager: [phone] 06/26/2024 3:40 PM Medication List CHANGE how [...] 50 mg tablet Commonly known as: ULTRAM [facility] 06-26-2024 Note HNO ID: [id number] Author: MADIHA HARDING RPh Service: Pharmacy Author Type: Pharmacist Type: Plan of Care Filed: 06/26/2024 15:40 Note Text: PHARMACY MEDICATION REVIEW Patient Name: Bhumika Umana : 1975 The following medications were updated within the ROOFING SALES REPRESENTATIVE medication list: Medications ADDED to ROOFING SALES REPRESENTATIVE medication list Aspirin 81 mg chewable tablet: [...] at bedtime as needed. Medications CHANGED on ROOFING SALES REPRESENTATIVE medication list None Medications REMOVED from ROOFING SALES REPRESENTATIVE medication list None Additional comments: Discharge med rec started prior to completion of admission med rec. Because of this, some medications in the below list, will be removed at discharge as they have already be discontinued: etanercept, chlorthalidone, citalopram, fluticasone nasal, folic acid, hydroxychloroquine, metformin ER, methotrexate, tramadol. The below information represents the best possible medication history: Yes Medication history completed by: student support services director: Lenin Odom Source of history: Patient: Reliability of source: Appears reliable, clearly identified: Medication name, Medication dose, Medication route, and Medication frequency Medication nonadherence identified: No barriers noted Reconciliation completed: Yes Completed by: Madiha Harding RPh All ROOFING SALES REPRESENTATIVE medications addressed by LIP- some home medications were not ordered this admission but will be continued at discharge. Since discharge summary has already been placed, will not reach out to the team to add missing medications. Patient interested in Bedside Delivery Services or using [facility] at discharge? Yes. Discharge Pharmacy Updated Preferred outpatient pharmacy: [facility] [address] [place] [address] - [address] - [phone] E- [facility] [place] [address] - [address] [facility] - [phone] Allergies: Adhesive Tape (Aidee* Rash Penicillins Unknown [...] Unknown Patient Yes No Sig: Use 1 Lincoln in each nostril daily at bedtime. folic [...] None Lenin Odom 06/26/2024 Madiha Harding, Kimber, [facility] Changes and additions to the details in the note are indicated by italics and strikeouts. [facility] 06-26-2024 Note HNO ID: [id number] Author: HEMANTH HOPKINS MD Service: Neurology General [...] note Hemanth Hopkins MD Neurology, PGY-4 06/26/2024 [facility] 06-25-2024 Note HNO ID: [id number] Author: HONG CRUZ LSW Service: Care Management Author Type: Sign Board Erector Type: Care Mgt Initial Assessment Filed: 06/25/2024 15:42 Note Text: CARE MANAGEMENT: ASSESSMENT AND DISCHARGE PLAN SERVICE DATE: June 25, 2024 SERVICE TIME: 3:30 PM PCP: Cecy Hernandez CNP, TORQUE TESTER Primary Contact: Extended Emergency Contact Information Primary Emergency Contact: Justine Umana Address: [address] [place] [address] Mobile Relation: Mother Admission Status: Observation Insurance Provider: GRANT BCBS [place]ID OF [place] Discharge Planning requested by: Per Department Practice Potential Transition Plans Advance Directives Current Advance Directive: None Dermatologist And Dermatopathologist Attempted to Assist with AD Completion: Yes Current Living Arrangements and Support Lives with: Other person(s), Family members (temporarily living with brother) Type of Residence: Private Residence (House) Discharge Planning Patient Goal(s): General wellness Conway of Choice Explained: Conway of Choice Given: No Reason Not Given: [...] and weakness in his hands. 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 At this time, no skilled identified. If family is unavailable to transport, T2R will be provided at discharge. SW/CM will continue to follow for transitional care needs. SIGNATURE: SABINE Weiss PATIENT NAME: Bhumika Umana DATE: June 25, 2024 TIME: 3:30 PM CONTACT #: [phone] [facility] 06-25-2024 Note HNO ID: [id number] Author: [place] ? Service: Pharmacy Author Type: Occupational Health And Safety Manager Type: Plan of Care Filed: 06/25/2024 14:20 Note Text: Insurance investigation completed Patient has active prescription insurance: Yes - Patient's insurance is in-network with [facility] Insurance loaded into [facility]: Yes Test claim was completed to verify insurance is active: Successful Any questions, please reach out to your medication warehouse coordinator. [facility] 06-25-2024 Note HNO ID: [id number] Author: HEMANTH HOPKINS MD Service: Neurology General [...] low-normal 228. 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 EMG/NCS 02/13/2024 (symptom onset [...] standpoint Hemanth Hopkins MD Neurology, PGY-4 06/25/2024 [facility] 06-22-2024 Physician Emergency department Note Emergency Department Report [facility] EMERGENCY DEPARTMENT Service Date:.06/22/24 PCP: Cecy Hernandez [...] Resource Strain: Medium Risk (11/15/2023) Received from [facility] Overall Financial Resource Strain (CARDIA) Difficulty of Paying Living Expenses: Somewhat hard Food Insecurity: Patient Declined (11/15/2023) Received from [facility] Hunger Vital Sign Worried About Running Out of Food in the Last Year: Patient declined Ran Out of Food in the Last Year: Patient declined Transportation Needs: No Transportation Needs (11/15/2023) Received from [facility] PRAPARE - Transportation Lack of Transportation (Medical): No Lack of Transportation (Non-Medical): No Physical Activity: Patient Declined (11/15/2023) Received from [facility] Exercise Vital Sign Days of Exercise per Week: Patient declined Minutes of Exercise per Session: Patient declined Stress: Patient Declined (11/15/2023) Received from [facility] of Occupational Health - Occupational Stress Questionnaire Feeling of Stress : Patient declined Social Connections: Moderately Integrated (11/15/2023) Received from [facility] Social Connection and Isolation Panel [NHANES] Frequency of Communication with Friends and Family: Three times a week Frequency of Social Gatherings with Friends and Family: Twice a week Attends Judaism Services: More than 4 times per year [...] information. . . Hector Napoles MD 06/22/242006 [facility] 06-22-2024 Emergency department Note Emergency Department Report [facility] EMERGENCY [facility]PARTMENT Service Date:.06/22/24 PCP: Eccy David Chief Complaint: Chief Complaint Patient presents [...] Resource Strain: Medium Risk (11/15/2023) Received from [facility] Overall Financial Resource Strain (CARDIA) Difficulty of Paying Living Expenses: Somewhat hard Food Insecurity: Patient Declined (11/15/2023) Received from [facility] Hunger Vital Sign Worried About Running Out of Food in the Last Year: Patient declined Ran Out of Food in the Last Year: Patient declined Transportation Needs: No Transportation Needs (11/15/2023) Received from [facility] PRAPARE - Transportation Lack of Transportation (Medical): No Lack of Transportation (Non-Medical): No Physical Activity: Patient Declined (11/15/2023) Received from [facility] Exercise Vital Sign Days of Exercise per Week: Patient declined Minutes of Exercise per Session: Patient declined Stress: Patient Declined (11/15/2023) Received from [facility] [place] [facility] of Occupational Health - Occupational Stress Questionnaire Feeling of Stress : Patient declined Social Connections: Moderately Integrated (11/15/2023) Received from [facility] Social Connection and Isolation Panel [NHANES] Frequency of Communication with Friends and Family: Three times a week Frequency of Social Gatherings with Friends and Family: Twice a week Attends Judaism Services: More than 4 times per year [...] Napoles MD 06/22/242006 documented in this encounter [facility] 06-18-2024 Emergency department Note All discharge instructions and medications reviewed, all questions answered. Pt verbalized understanding. [facility] 06-18-2024 Emergency department Note All discharge instructions and medications reviewed, all questions answered. Pt verbalized understanding. A Sudol [facility] bedside documented in this encounter [facility] 06-18-2024 Emergency department Note A Abelino TORQUE TESTER bedside [facility] 06-12-2024 History of Present illness Narrative Images from the original note were not included. [address] [address] Date of Service: 06/12/2024 Subjective: Bhumika Umana [...] Myopathy - Unlisted Lab Test; Future - [facility] Neurology - [facility] [place], [place]; Future 3. Diabetic cheirarthropathy ([facility]) At this point patient continued to have [...] or corrected. Thank you for your understanding. [facility] Rheumatology Dr. Lula Cota MD [address] [facility], [address] [place] [address] Office: [phone] documented in this encounter [facility] [employer] [facility] 03-30-2024 Discharge summary Note Date/Time March 30, 2024 12:47pm [facility] [address] [place] [id number] Discharge Summary Signed Patient: Bhumika Umana JR MR#: [id number] : 1975 Acct:[id number] Age/Sex: 48 / M Adm Date: 4 Loc: Room: [address] [place] [address]: Bola Garcia DO Copies to: [...] ago and has been feeling fine. Current mortarman is working him up for possible Sjogren's [...] neurology clinic. He needs to see his mortarman in [place]. The following labs are still pending from [...] the neurology office. Follow up with your Medical Billing And Coding Specialist in [place]. Instructions: Know your Meds Prescriptions: Continued amitriptyline [...] Upper extremity: He does have mildly weak dining room tables set up attendant strength of both hands and mild weakness [...] % (Auto) 67.6, Lymph % (Auto) 22.0, Nicholas % (Auto) 9.0, Eos % (Auto) 1.0, Baso % (Auto) 0.4, Nucleat RBC Rel Count 0.0, Neut # (Auto) 13.5 H, Lymph #(Auto) 4.4, Nicholas # (Auto) 1.8 H, Eos # (Auto) 0.2, Baso # (Auto) 0.1, PHA Creatinine Clear 238.21, Sodium 136, Potassium 4.4, Chloride 101, Carbon Xywfkcm98.2, Anion Gap 12.2, BUN 13, Creatinine 0.61 [...] % (Auto) 77.7, Lymph % (Auto) 14.7, Nicholas % (Auto) 6.5, Eos % (Auto) 0.6, Baso % (Auto) 0.5, Nucleat RBC Rel Count 0.1, Neut # (Auto) 13.3 H, Lymph #(Auto) 2.5, Nicholas # (Auto) 1.1 H, Eos # (Auto) [...] signed by Bola Garcia DO> 03/30/24 1247 [facility] Work Phone: 1(349) 690-646808-03-2024 Consult note [address]ia Street [facility] March 30, 2024 11:04am Note Date/Time March 30, 2024 10: 08am [facility] [address] [place] [address] Neurology Consult Note Signed Patient: Bhumika Umana JR MR#: [id number] : 1975 Acct:[id number] Age/Sex: 48 / M Adm Date: 4 Loc: Room: [address] [place] [address] Type: ADM INOo Attending Dr: Bola Garcia DO Copies to: DO Cecy Watson NP-C Altagracia Street DO~ HPI Consult Date: 03/30/24 Paradichlorobenzene Tender: Altagracia Street DO Reason for consult: weakness Consult Narrative HPI: 48-year-old male being seen in Neurology consultation at the request of the hospitalist. The patient was recently admitted worked up and released for similar issues. The patient has a PMH of T2DM, HTN, depression adn RA. The patient returned to the hopsital/ED [facility] new complaints of BLE where his previous [...] brother came over to go to the [place] States he needed help just opening up [...] that his hands feel like they have krps-xdr-mxfhdmcpd them. He was discharged from the hospital [...] ago and has been feeling fine. Current mortarman is working him up for possible Sjogren's [...] Mert Ferreira M.D.03/30/2024 9:26 AM Dictation Location: [place] [address] Assessment/Plan (1) Bilateral arm weakness: (2) Bilateral [...] <Electronically signed by DO Altagracia Street> 03/30/24 3761 [facility] Work Phone: 1(500) 286-813108-03-2024 History and physical note Author Edgar Gomez [facility] March 30, 2024 6:59am Note Date/Time March 30, 2024 1:3 8am [facility] [address] [place] [address] Hospitalist H&P Signed Patient: Bhumika Umana JR MR#: [id number] : 1975 Acct:[id number] Age/Sex: 48 / M Adm Date: 4 Loc: Room: [address] [place] [address] Type: ADM INOo Attending Dr: Edgar Gomez MD Copies to: MD Cecy Jeter, PSYCHOLOGICAL OPERATIONS OFFICER-C Margaret Kennedy, TRANSPORTATION OFFICER~ HPI DATE OF EXAMINATION: 03/30/24 CHIEF COMPLAINT: [...] that his hands feel like they have zmdj-vpk-vzdonur in them. He is moving both of [...] ago and has been feeling fine. Current mortarman is working him up for possible Sjogren's [...] % (Auto) 14.7 % (.) 03/29/24 22:50 Nicholas % (Auto) 6.5 % (.) 03/29/24 22:50 Eos % (Auto) 0.6 % (.) 03/29/24 22:50 Baso % (Auto) 0.5 % (.) 03/29/24 22:50 Nucleat RBC Rel Count 0.1 /100 WBC (0-0.5) 03/29/24 22:50 Neut # (Auto) 13.3 x10E3/uL (1.8-7.7) H 03/29/24 22:50 Lymph # (Auto) 2.5 x10E3/uL (1.00-4.8) 03/29/24 22:50 Nicholas # (Auto) 1.1 x10E3/uL (0.0-0.8) H 03/29/24 [...] signed by Edgar Gomez MD> 03/30/24 0659 [facility] Work Phone: 1(961) 943-937207-29-2024 Progress note Author Danial Horan [facility] March 25, 2024 2:09pm Note Date/Time March 25, 2024 2:03 pm [facility] [address] [place] [address] Neurology Progress Note Signed Patient: Bhumika Umana JR MR#: [id number] : 1975 Acct:[id number] Age/Sex: 48 / M Adm Date: 4 Loc: Room: [address] [place] [address] Type: ADM IN Attending Dr: Simon Wolfe [...] wrist flexion, +2/5 bilateralfinger extension, +4/5 bilateral dining room tables set up attendant strength, +3/5 finger abduction bilaterally. No tremors. [...] <Electronically signed by Danial Horan DO> 03/25/24 1401 [facility] Work Phone: 1(267) 920-492807-28-2024 Progress note Author Danial Horan [facility] March 24, 2024 1:33pm Note Date/Time March 24, 2024 1:33 pm [facility] [address] [place] [address] Neurology Progress Note Signed Patient: Bhumika Umana JR MR#: [id number] : 1975 Acct:[id number] Age/Sex: 48 / M Adm Date: 4 Loc: Room: [address] [place] [address] Type: ADM IN Attending Dr: Elder Iyer [...] wrist flexion, +2/5 bilateralfinger extension, +4/5 bilateral dining room tables set up attendant strength, +3/5 finger abduction bilaterally. No tremors. [...] signed by Danial Horan DO> 03/24/24 1333 [facility] Work Phone: 1(145) 708-820607-28-2024 Progress note Author Elder Iyer [facility] March 24, 2024 11:01am Note Date/Time March 24, 2024 11:0 1am [facility] [address] [place] [address] Hospitalist Progress Note Signed Patient: Bhumika Umana JR MR#: [id number] : 1975 Acct:[id number] Age/Sex: 48 / M Adm Date: 4 Loc: 3T Room: [address] [place] [address] Type: ADM IN Attending Dr: Elder Iyer [...] his hands where he can't make a dining room tables set up attendant, mentions that he could not hold a [...] spray 03/23/24 22:00 03/23/24 21:18 Fluticasone Propionate Lincoln 120 Lincoln/16 Gm Bottle NARES-BOTH 03/23/25 21:59 Not Given [...] Insuln.Pen SUBCUT 03/23/25 07:59 Not Given TID.WM.HS [facility] Protocol Lisinopril 20 mg 03/23/24 09:00 [...] of his bilateral worsening in his hand dining room tables set up attendant this am -He is off steroids -His [...] signed by Elder Iyer MD> 03/24/24 1101 [facility] Work Phone: 1(506) 515-352807-27-2024 Progress note Author Elder Iyer [facility] March 23, 2024 2:33pm Note Date/Time March 23, 2024 2:33 pm [facility] [address] [place] [address] Hospitalist Progress Note Signed Patient: UmanaBhumika carrizales MR#: [id number] : 1975 Acct:[id number] Age/Sex: 48 / M Adm Date: 4 Loc: 3T Room: [address] [place] [address] Type: ADM IN Attending Dr: Elder Iyer [...] reviewed today: Cervical spine MRI done in [place]: The MRI of the cervical spine is [...] with and without contrast done here at [facility]: Focal areas of abnormal signal [...] in his hands and can make a dining room tables set up attendant, sensation is normal over the bilateral upper [...] Propionate 2 spray 03/23/24 22:00 Fluticasone Propionate Lincoln 120 Lincoln/16 Gm Bottle NARES-BOTH 03/23/25 21:59 QHS FARZANEH [...] cervical spine with and without contrast here [facility], will need better resolution study 3 [...] <Electronically signed by Elder Iyer MD> 03/23/24 1438 [facility] Work Phone: 1(404) 950-876907-27-2024 Consult note Author Danial Horan [facility] March 23, 2024 1:05pm Note Date/Time March 23, 2024 11:3 9am [facility] [address] [place] [address] Neurology Consult Note Signed Patient: Bhumika Umana JR MR#: [id number] : 1975 Acct:[id number] Age/Sex: 48 / M Adm Date: 4 Loc: Room: [address] [place] [address] Type: ADM IN Attending Dr: Elder Iyer MD Copies to: DO Cecy Aguirre NP-C Elder Iyer MD~ HPI Consult Date: 03/23/24 Paradichlorobenzene Tender: Danial Horan DO [facility] Medical [...] his close, etc. He went to the [place] emergency department to be evaluated and had to sign some for there and had used two handsto manipulate the pen. The [place] emergency department called me overnight and told [...] wrist flexion, +2/5 bilateralfinger extension, +4/5 bilateral dining room tables set up attendant strength, +3/5 finger abduction bilaterally. No tremors. [...] <Electronically signed by Danial Horan DO> 03/23/24 130 [facility] Work Phone: 1(129) 666-296807-27-2024 History and physical note Author Bola Garcia [facility] March 23, 2024 2:28am Note Date/Time March 23, 2024 2:28 am [facility] [address] [place] [address] Hospitalist H&P Signed Patient: Bhumika Umana JR MR#: [id number] : 1975 Acct:[id number] Age/Sex: 48 / M Adm Date: 4 Loc: Room: [address] [place] [address] Type: ADM IN Attending Dr: Bola Garcia DO Copies to: DO Cecy Watson NP-C~ HPI DATE OF EXAMINATION: 03/23/24 CHIEF COMPLAINT: Worsening weakness of both upper extremities. HISTORY OF PRESENT ILLNESS: This is a 48-year-old man who was sent to the emergency room at [facility] from the emergency room at [facility] as a ED to ED transfer [...] on prednisone 2 days ago by the [place] ER. In [place] he has had a workup including a CT scan of his cervical spine and then an MRI of his cervical spine performed on March 19, 2024. Contact was made with the neurologist who felt thatthe patient should be brought over here to [facility] so he can get an MRI [...] like he recently got established with a mortarman at the [facility] in [place] who told himthat his situation was not [...] Family history of colon cancer [facility] Problem: Diagnosed with Cancer Hypertension Social [...] % (Auto) 8.2 % (.) 03/23/24 00:52 Nicholas % (Auto) 1.0 % (.) 03/23/24 00:52 Eos % (Auto) 0.0 % (.) 03/23/24 00:52 Baso % (Auto) 0.5 % (.) 03/23/24 00:52 Nucleat RBC Rel Count 0.1 /100 WBC (0-0.5) 03/23/24 00:52 Neut # (Auto) 15.5 x10E3/uL (1.8-7.7) H 03/23/24 00:52 Lymph # (Auto) 1.4 x10E3/uL (1.00-4.8) 03/23/24 00:52 Nicholas # (Auto) 0.2 x10E3/uL (0.0-0.8) 03/23/24 00:52 [...] He has been established recently with a mortarman out of the [facility] [employer] system in [place]. Plan: MRI of the brain with and [...] <Electronically signed by Bola Garcia DO> 03/23/24227 [facility] Work Phone: [phone]) [phone] Evaluation note* Encounter Date Diagnosis Assessment Notes [...] given in writting by [facility] document. [employer] Other Discharge summary Author Simon Wolfe [facility] March 25, 2024 5:58pm Note Date/Time March 25, 2024 5:50 pm [facility] [address] [place] [address] Discharge Summary Signed Patient: Bhumika Umana JR MR#: [id number] : 1975 Acct:[id number] Age/Sex: 48 / M Adm Date: 4 Loc: Room: [address] [place] [address]: Simon Wolfe MD Copies to: MD Cecy Mcdowell, PSYCHOLOGICAL OPERATIONS OFFICER-C~ Providers Date of Discharge: 03/25/24 Discharging Provider: [...] Deferred Neuro: AAO x3, no focal deficits. 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 5/5 otherwise Extremities: No [...] 08:43: CSF Supernatant Color Colorless, CSF RBC [id number] 03/25/24 08:43: CSF Color Lt pink, CSF [...] N/A Documented By: Simon Wolfe MD 4 4102 Signed By: <Electronically signed by Simon Wolfe MD> 03/25/24 4251 [facility] Work Phone: Evaluation note* Diagnosis Type 2 diabetes mellitus without complication, without long-term current use of insulin ([facility]/HCC)- Primary Type 2 diabetes mellitus without complications (CMS/HCC) documented in this encounter [facility]* Diagnosis Onset Date Resolution Status Diabetes acute HTN (hypertension) acute Upper extremity weakness acu te [facility] Work Phone: Evaluation note* Diagnosis Onset Date Resolution Status Diabetes acute HTN (hypertension) acute Upper extremity weakness acu te Bilateral arm weakness acute Bilateral leg weakness acute Diabetes acute HTN (hypertension) acute Leukocytosis acute Upper extremity weakness acu te [facility] Work Phone: Evaluation note* Diagnosis Onset Date Resolution Status Diabetes acute HTN (hypertension) acute Upper extremity weakness acu te Bilateral arm weakness acute Bilateral leg weakness acute Diabetes acute Falls acute Fasciculation acute HTN (hypertension) acute Leukocytosis acute Upper extremity weakness acu te [facility] Work Phone: Evaluation note* Diagnosis Type 2 diabetes mellitus without complication, without long-term current use of insulin (CMS/HCC) Type 2 diabetes mellitus without complications (CMS/HCC) Depression, unspecified ([facility]) Other chronic pain [facility] Diagnosis Primary osteoarthritis of both hands- Primary Myopathy Unspecified myopathy Diabetic cheirarthropathy ([facility]-HCC) [facility] Diagnosis Injury of toe on right foot, initial encounter- Primary [facility]* Diagnosis Generalized weakness- Primary Other malaise and fatigue Paresthesia of skin Disturbance of skin sensation documented in this encounter [facility]* Diagnosis Essential hypertension, benign (CMS/HCC)- Primary Essential hypertension, benign Type 2 diabetes mellitus without complication, without long-term current use of insulin ([facility]) Class 3 severe obesity due to excess [...] initiating or maintaining sleep Essential hypertension, benign ([facility]) Essential hypertension, benign Class 3 severe obesity due to excess calories without serious comorbidity with body mass index (BMI) of 45.0 to 49.9 in adult ([facility]) Depression, unspecified depression type ([facility]) Type 2 diabetes mellitus without complication, without long-term current use of insulin ([facility])- Primary Essential hypertension, benign ([facility]) Essential hypertension, benign Asymptomatic microscopic hematuria Degenerative disc disease, cervical Class 3 severe obesity due to excess calories without serious comorbidity with body mass index (BMI) of 45.0 to 49.9 in adult ([facility]) Upper extremity weakness- Primary Other musculoskeletal symptoms referable to limbs Morbid (severe) obesity due to excess calories ([facility]) Body mass index (BMI) 40.0-44.9, adult ([facility]) Rheumatoid arthritis with rheumatoid factor, unspecified ([facility]) Depression, unspecified ([facility]) Type 2 diabetes mellitus without complication, without long-term current use of insulin ([facility]) Other seasonal allergic rhinitis Essential hypertension, benign ([facility]) Essential hypertension, benign Essential (primary) hypertension ([facility]) Unspecified essential hypertension Type 2 diabetes mellitus without complications ([facility]) Other chronic pain Primary insomnia Persistent disorder of initiating or maintaining sleep Essential hypertension, benign ([facility]/HCC)- Primary Essential hypertension, benign Type 2 diabetes mellitus without complication, without long-term current use of insulin ([facility]) Body mass index (BMI) 40.0-44.9, adult ([facility]) Morbid (severe) obesity due to excess calories ([facility]) Other seasonal allergic rhinitis documented in this encounter [facility]* Diagnosis Brachial plexopathy- Primary Brachial plexus lesions Obesity, Class II, BMI 35-39.9 Obesity, unspecified [facility] Financial difficulty- Primary Inadequate material resources [facility] Diagnosis Essential hypertension, benign ([facility]/HCC)- Primary Essential hypertension, benign Type 2 diabetes mellitus without complication, without long-term current use of insulin ([facility]) Class 3 severe obesity due to excess calories without serious comorbidity with body mass index (BMI) of 45.0 to 49.9 in adult ([facility]/HCC) Autoimmune disease ([facility]) Autoimmune disease, not elsewhere classified Essential (primary) hypertension (CMS/HCC) Unspecified essential hypertension Other chronic pain Type 2 diabetes mellitus without complications ([facility]) Type 2 diabetes mellitus without complication, without long-term current use of insulin ([facility])- Primary Primary insomnia Persistent disorder of initiating or maintaining sleep Essential hypertension, benign ([facility]) Essential hypertension, benign Class 3 severe obesity due to excess calories without serious comorbidity with body mass index (BMI) of 45.0 to 49.9 in adult ([facility]) Depression, unspecified depression type ([facility]) Type 2 diabetes mellitus without complication, without long-term current use of insulin ([facility])- Primary Essential hypertension, benign (CMS/[facility]) Essential hypertension, benign Asymptomatic microscopic hematuria Degenerative disc disease, cervical Class 3 severe obesity due to excess calories without serious comorbidity with body mass index (BMI) of 45.0 to 49.9 in adult ([facility]) Upper extremity weakness- Primary Other musculoskeletal symptoms referable to limbs Morbid (severe) obesity due to excess calories ([facility]) Body mass index (BMI) 40.0-44.9, adult ([facility]) Rheumatoid arthritis with rheumatoid factor, unspecified ([facility]) Depression, unspecified ([facility]) Type 2 diabetes mellitus without complication, without long-term current use of insulin ([facility]) Other seasonal allergic rhinitis Essential hypertension, benign ([facility]) Essential hypertension, benign Essential (primary) hypertension ([facility]) Unspecified essential hypertension Type 2 diabetes mellitus without complications ([facility]) Other chronic pain Primary insomnia Persistent disorder of initiating or maintaining sleep Essential hypertension, benign ([facility]/HCC)- Primary Essential hypertension, benign Type 2 diabetes mellitus without complication, without long-term current use of insulin ([facility]) Body mass index (BMI) 40.0-44.9, adult ([facility]) Morbid (severe) obesity due to excess calories ([facility]) Upper extremity weakness- Primary Other musculoskeletal symptoms referable to limbs Depression, unspecified ([facility]) Type 2 diabetes mellitus without complication, without long-term current use of insulin ([facility]) Essential hypertension, benign ([facility]) Essential hypertension, benign Essential (primary) hypertension ([facility]) Unspecified essential hypertension Type 2 diabetes mellitus without complications ([facility]) Obesity, Class II, BMI 35-39.9 Weakness Other malaise and fatigue Rheumatoid arthritis with rheumatoid factor, unspecified (CMS/HCC) Autoimmune disease ([facility]/HCC) Autoimmune disease, not elsewhere classified Moderate episode of recurrent major depressive disorder ([facility]/HCC) documented in this encounter [facility]* Diagnosis Essential hypertension, benign (CMS/HCC)- Primary Essential hypertension, benign Type 2 diabetes mellitus without complication, without long-term current use of insulin ([facility]) Class 3 severe obesity due to excess calories without serious comorbidity with body mass index (BMI) of 45.0 to 49.9 in adult ([facility]) Autoimmune disease (CMS/HCC) Autoimmune disease, not elsewhere classified Essential (primary) hypertension ([facility]) Unspecified essential hypertension Other chronic pain Type 2 diabetes mellitus without complications ([facility]) Type 2 diabetes mellitus without complication, without long-term current use of insulin ([facility])- Primary Primary insomnia Persistent disorder of initiating or maintaining sleep Essential hypertension, benign ([facility]) Essential hypertension, benign Class 3 severe obesity due to excess calories without serious comorbidity with body mass index (BMI) of 45.0 to 49.9 in adult ([facility]) Depression, unspecified depression type ([facility]) Type 2 diabetes mellitus without complication, without long-term current use of insulin ([facility])- Primary Essential hypertension, benign ([facility]) Essential hypertension, benign Asymptomatic microscopic hematuria Degenerative disc disease, cervical Class 3 severe obesity due to excess calories without serious comorbidity with body mass index (BMI) of 45.0 to 49.9 in adult ([facility]) Upper extremity weakness- Primary Other musculoskeletal symptoms referable to limbs Morbid (severe) obesity due to excess calories ([facility]) Body mass index (BMI) 40.0-44.9, adult ([facility]) Rheumatoid arthritis with rheumatoid factor, unspecified ([facility]) Depression, unspecified ([facility]) Type 2 diabetes mellitus without complication, without long-term current use of insulin ([facility]) Other seasonal allergic rhinitis Essential hypertension, benign (CMS/HCC) Essential hypertension, benign Essential (primary) hypertension (CMS/HCC) Unspecified essential hypertension Type 2 diabetes mellitus without complications (CMS/[facility]LY [facility]) Other chronic pain Primary insomnia Persistent disorder [...] Moderate episode of recurrent major depressive disorder (CMS/FORMERLY [facility]) Type 2 diabetes mellitus without complication, without long-term current use of insulin (CMS/[facility]ERLY [facility]) documented in this encounter [facility]History general Narrative - Reported* Type Description Date Medical History rheumatoid arthritis Medical History type 2 diabeties Medical History Benign essential HTN Medical History Depression Surgical History tonsillectomy and adenoidectomy 1987 Hospitalization History tonsillitis childo d [employer] Other Hospital Discharge instructionsAmbulatory Orders* PT/OT/SP OutPatient Referral Time Frame: 1 Day, Location: Determined By Patient Additional Instructions Follow up in the neurology office. Follow up with your Medical Billing And Coding Specialist in [place].[facility] Work Phone: Hospital Discharge instructions* Attachments The following attachments cannot be sent through Care Everywhere. * Weakness: Generalized (Uzbek) * Numbness and Tingling (Uzbek) documented in this encounterAvita [facility] SystemInstructionsNot on filedocumented in this encounterProMediOhioHealth [facility] SystemInstructionsNot on filedocumented in this encounterProSelect Medical [facility] SystemReason for referral (narrative)* Consultation (Routine) - New Request Specialty Diagnoses / Procedures Referred By Rosalie kim Referred To Contact Podiatry Diagnoses Injury of toe on right foot, initial encounter Gale Roca, TRANSPORTATION OFFICER-TORQUE TESTER [address] [place] [address] Referral ID Status Reason Start Date Expiration Date V isits Requested Visits Authorized [id number] New Request 06/18/2024 07/13/2025 1 1 [facility] Consultation (Routine) - New Request Specialty Diagnoses / Procedures Referred By Contac t Referred To Contact Neurology Diagnoses Generalized weakness Paresthesia of skin Hector Napoles MD [address] [place] [address] Referral ID Status Reason Start Date Expiration Date V isits Requested Visits Authorized [id number] New Request 06/22/2024 07/17/2025 1 1 [facility] Summary Purpose Family History Relationship Condition Age [...] Upper extremity weakness Chief Complaint Sent from [place] E R leg numbness Reason for Visit Diabetes HTN (hypertension) Upper extremity weakness Bilateral arm weakness Bilateral leg weakness Diabetes Falls Fasciculation HTN (hypertension) Leukocytosis Upper extremity weakness Reason for Referral Specialty Diagnoses / Procedures Referred By Contac t Referred To Contact Diagnoses Brachial plexopathy Procedures CONSULT TO NEUROMUSCULAR MEDIC OFFICE/OUTPATIENT [facility] 60 MINUTES Keith Leone MD [address] [place] [address] Referral ID Status Reason Start Date Expiration Date Visits Requested Visits Authorized [id number] Authorized PCP Requested Referral 4 07/10/2025 1 1 Specialty Diagnoses / Procedures Referred By Rosalie kim Referred To Contact [facility] Diagnoses Brachial plexopathy Procedures CONSULT TO APPLIED BIOLOGY PROFESSOR OCCUPATIONAL THERAPY EVAL HIGH COMPLEX [address] [place] [address] [place] [address] [facility] [place] [address] Referral ID Status Reason Start Date Expiration Date Visits Requested Visits Authorized [id number] Pending Review Auto-Generat ed Referral 4 07/10/2025 1 1 Specialty Diagnoses / Procedures Referred By Rosalie kim Referred To Contact [facility] Diagnoses Brachial plexopathy Procedures [facility](NEURO/NI) NERVE CONDUCTION STUDIES 9-10 STUDIES Keith Leone MD [address] [place] [address] [place] [address] Referral ID Status Reason Start Date Expiration Date Visits Requested Visits Authorized [id number] New Request Auto-Generat ed Referral 4 07/10/2025 1 1 Additional Source Comments (unrecognized sect ion and content) No Status Records FoundNo Status Records FoundNo Status Records FoundNo Status Records FoundNo Status Records FoundNo Status Records FoundNo Status Records FoundNo Status Records FoundNo Status Records Found INFORMATION SOURCE (unrecogn ized section and content) DATE CREATED AUTHOR 11/14/2018 [facility] DATE CREATED AUTHOR AUTHOR'S ORGANIZ ATION 04/25/2022 [facility] DATE CREATED AUTHOR AUTHOR'S ORGANIZ ATION 04/08/2024 [facility] DATE CREATED AUTHOR AUTHOR'S ORGANIZ ATION 06/11/2024 [facility] DATE CREATED AUTHOR AUTHOR'S ORGANIZ ATION 06/17/2024 [facility] DATE CREATED AUTHOR AUTHOR'S ORGANIZ ATION 06/25/2024 [facility] DATE CREATED AUTHOR AUTHOR'S ORGANIZ ATION 07/12/2024 [facility] DATE CREATED AUTHOR AUTHOR'S ORGANIZ ATION 07/13/2024 [facility] DATE CREATED AUTHOR AUTHOR'S ORGANIZ ATION 07/25/2024 [facility] EPIC Source Comments (unrecognize d section and content) In the event this informatio n is protected by the Federal Confidentiality of Alcohol and Drug Abuse Patient Records regulations: The Federal rules restrict any use of the information to criminally investigate or prosecute any alcohol or drug abuse patient.[facility] Hospital[facility] the event this information is protected by the Federal Confidentiality of Alcohol and Drug Abuse Patient Records regulations: The Federal rules restrict any use of the information to criminally investigate or prosecute any alcohol or drug abuse patient.[facility] HospitalIn the event this information is protected by the Federal Confidentiality of Alcohol and Drug Abuse Patient Records regulations: The Federal rules restrict any use of the information to criminally investigate or prosecute any alcohol or drug abuse patient.[facility] Reason for Visit (unrecogniz ed section [...] Care Teams (unrecognized sec tion and content) Luster Applicator Relationship Specialty Start Date End Date Lexa Hickman MD PCP - General Family Medicine 03/15/23 Cecy Hernandez NP [address] [place] [address] Referring Physician Nurse Practitioner 03/15/23 Team Status: [...] March 30, 2024 End: March 30, 2024 Luster Applicator Relationship Specialty Start Date End Date Lexa Hickman MD [address] [place] [phone] PCP - General Family Medicine 11/16/23 Cecy Hernandez NP [address] [place] [phone] Referring Physician Nurse Practitioner 03/15/23 Cecy Hernandez NP [address] [place] [phone] Nurse Practitioner Family Medicine 11/16/23 Luster Applicator Relationship Specialty Start Date End Date Lexa Hickman MD [address] [place] [phone] PCP - General Family Medicine 11/16/23 Cecy Hernandez NP [address] [place] [address] Referring Physician Nurse Practitioner 03/15/23 Cecy Hernandez NP [address] [place] [phone] Nurse Practitioner Family Medicine 11/16/23 Luster Applicator Relationship Specialty Start Date End Date Cecy Hernandez CNP [address] [place] [phone] PCP - General Certified Nurse Practitioner 06/22/24 Luster Applicator Relationship Specialty Start Date End Date Unallocated, Brandons MD Stephan [address] [facility] [place] [address] PCP - General Family Medicine 06/11/24 Cecy Hernandez NP [address] [place] [phone] Referring Physician Nurse Practitioner 03/15/23 Cecy Hernandez NP [address] [place] [phone] Nurse Practitioner Family Medicine 11/16/23 Luster Applicator Relationship Specialty Start Date End Date Unallocated, Serena Rothman MD [address] [place] [address] PCP - General Family Medicine 06/11/24 Cecy Hernandez NP [address] [place] [phone] Referring Physician Nurse Practitioner 03/15/23 Cecy Hernandez NP [address] [place] [address] Nurse Practitioner Family Medicine 11/16/23 Luster Applicator Relationship Specialty Start Date End Date Unallocated, Serena Rothman MD [address] [place] [address] PCP - General Family Medicine 06/11/24 Cecy Hernandez NP [address] [place] [phone] Referring Physician Nurse Practitioner 03/15/23 Cecy Hernandez NP [address] [place] [address] Nurse Practitioner Family Medicine 11/16/23 Luster Applicator Relationship Specialty Start Date End Date Cecy Hernandez CNP [address] [place] [address] PCP - General Family Medicine 06/24/24 Luster Applicator Relationship Specialty Start Date End Date Cecy Hernandez TORQUE TESTER [address] [place] [address] PCP - General Family Medicine 06/24/24 Luster Applicator Relationship Specialty Start Date End Date Lexa Hickman MD [address] [place] [address] PCP - General Family Medicine 06/27/24 Cecy Hernandez NP [address] [place] [phone] Referring Physician Nurse Practitioner 03/15/23 Cecy Hernandez NP [address] [place] [address] Nurse Practitioner Family Medicine 11/16/23 Luster Applicator Relationship Specialty Start Date End Date Lexa Hickman MD [address] [place] [phone] PCP - General Family Medicine 06/27/24 Cecy Hernandez NP [address] [place] [phone] Referring Physician Nurse Practitioner 03/15/23 Cecy Hernandez NP [address] [place] [address] Nurse Practitioner Family Medicine 11/16/23 Luster Applicator Relationship Specialty Start Date End Date Lexa Hickman MD [address] [place] [phone] PCP - General Family Medicine 06/27/24 Cecy Hernandez NP [address] [place] [phone] Referring Physician Nurse Practitioner 03/15/23 Cecy Hernandez NP [address] [place] [address] Nurse Practitioner Family Medicine 11/16/23 Scheduled Active [...] BE BASED ON THE PRIMARY CLINICAL RECORDS. [employer] provides no warranty or guarantee of the accuracy or completeness of information in this document.
--- OUTSIDE RECORDS SUMMARY | 2024-08-08 06:58 | XMS_ITS | CCD ---
Author Organization [facility] Care Team Providers Care Beautician Apprentice Name Role Phone PHYSICIAN, DEFAULT Admitting Unavailable PHYSICIAN, DEFAULT Attending Unavailable PEGGY GAYTAN Primary Care Unavailable Primo Downing Primary Care Provider [phone] Yue Pedroza Unavailable AICHHOLZ, SUPERVISOR GROVE CECY Primary Care Unavailable AICHHOLZ, SUPERVISOR GROVE CECY Admitting Unavailable AICHHOLZ, SUPERVISOR GROVE CECY Attending Unavailable AICHHOLZ, SUPERVISOR GROVE CECY Consulting Unavailable AICHHOLZ, SUPERVISOR GROVE CECY Primary Care Unavailable AICHHOLZ, SUPERVISOR GROVE CECY Admitting Unavailable AICHHOLZ, SUPERVISOR GROVE CECY Attending Unavailable AICHHOLZ, SUPERVISOR GROVE CECY Consulting Unavailable AICHHOLZ, SUPERVISOR GROVE CECY Admitting Unavailable AICHHOLZ, SUPERVISOR GROVE CECY Attending Unavailable AICHHOLZ, SUPERVISOR GROVE CECY Consulting Unavailable AICHHOLZ, SUPERVISOR GROVE CECY Primary Care Unavailable AICHHOLZ, SUPERVISOR GROVE CECY Primary Care Unavailable VISHAL, DR THANG Nichols Attending Unavailabl ken RODGERS, DR THANG Nichols Consulting Unavailabl ken RODGERS, DR THANG Nichols Admitting Unavailabl e JAKOB MCGHEE Consulting Unavailable Lexa Hickman MD Primary Care Provider Aichholz SURGICAL TECH, Cecy Unavailable Unavailable Primary Care Provider Unavailabl e Aichholz, Cecy J Primary Care Provider MD Gale Gonzales Emergency Provider DO Bola Garcia Admit Provider DO Danial Horan Other Provider MD Simon Wolfe Attending Provider [phone] Krise, DO Emily M Emergency Provider MD Edgar Gomez Admit Provider MD Edgar Gomez Attending Provider DO Bola Garcia Attending Provider DO Altagracia Street Other Provider Altagracia Street Consulting Unavailable Edgar Gomez Admitting Unavailable Cecy Hernandez Primary Care Unavailable Bola Garcia Attending UnavailDanial Leija Consulting Unavailable YobanyhholReva reynoldsa J Primary Care Unavailable Simon Wolfe Attending Unavailab Bola Chan Admitting Unavailabl ken Hernandez SURGICAL TECH, Cecy Unavailable Lexa Hickman MD Primary Care Provider [phone] David SURGICAL TECH, Cecy Unavailable COTA, LULA Referring Unavailable COTA, LULA Attending Unavailable COTA, LULA Referring Unavailable COTA, LULA Referring Unavailable COTA, LULA Attending Unavailable COTA, LULA Referring Unavailable Unavailable Primary Care Provider Unavailmilvia Hernandez CNP, Cecy Primary Care Provider DAVID CECY Primary Care Unavailable HECTOR NAPOLES Attending Unavailable JameeloSerena hinojosa MD Provider Primary Care Provi karla Cecy Hernandez CNP Primary Care Provider [phone] DAREK VALDOVINOS Attending Unavailable ERROL SANFORD Referring Unavailable CECY HERNANDEZ Primary Care Unavailable LELAND DANG QUAKER Attending Unavailable LELAND DANG QUAKER Admitting Unavailable CECY HERNANDEZ Primary Care Unavailable [...] TAPE (ROSINS)] Allergy to substance 02-20-20 Rash [facility] (20 sources) Penicillins; Translations: [Penicillins] Drug Allergy 01-03-20 13 Unknown [facility] (1 source) Penicillins (Antibiotic) Drug allergy rash. 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 Dermatitis, [facility] (11 sources) Oxytetracycline Drug Allergy 08-16-20 Unknown [facility] (11 sources) Penicillin G Drug Allergy 08-16-20 Unknown [facility] (11 sources) Other Allergy to substance 08-16-20 Unknown [facility] (11 sources) Wound Dressing Adhesive Propensity to adverse reactions to drug 08-16-20 Rash [facility] (4 sources) Adhesive agent; Translations: [ADHESIVE] Propensity to adverse reactions to drug 02-20-20 13 Rash [facility] (4 sources) almond allergenic extract; Translations: [almond] Drug Allergy 03-23-20 [facility] (4 sources) cashew nut allergenic extract; Translations: [cashew nut] Drug Allergy 03-23-20 [facility] (1 source) Adhesive Tape Drug allergy (disorder) 03-29-20 [facility] Repository (10 sources) almond allergenic extract Drug Allergy 03-29-20 [facility] Medications Current Medications Medication Drug Class(es) [...] complication, without long-term current use of insulin (CMS/[facility]) Chew 1 tablet (81 mg) Daily 30 [...] complication, without long-term current use of insulin ([facility]) Take 1 tablet (5 mg) by mouth [...] 2024 12:00am Actos Active polyethylene glycol 3350 69490 mg powder for oral solution (1 source) [...] 04/04/2024 Active take 2 tablets by mo [facility] three times daily Tizanidine 2 MG tablet [...] 06-12-2024 06-12-2024 Chronic Other aftercare (1 source) halfway (current) use of oral hypoglycemic drugs; Translations: [MEDICAL STAFF DIRECTOR USE ORAL HYPOGLYCEMIC DX] Onset: 04-25-2022 Episodic Other aftercare (1 source) halfway (current) use of aspirin; Translations: [GROUP HOME CURRENT USE OF ASPIRIN] Onset: 04-25-2022 Episodic Other aftercare (1 source) Other bed bug exterminator (current) drug therapy; Translations: [OTH MEDICAL STAFF DIRECTOR CURRENT DRUG THERAPY] Onset: 04-25-2022 Episodic Other [...] Office Visit (NRESFV ) -- BHUMIKA UMANA ([id number]) 1975 M Date Time Provider Department 07/10/24 9:30 AM DAREK VALDOVINOS NRESFV During your visit today, we recorded the following information about you: Pulse Blood pressure Weight Height 78/minute 139/79 144.8 kg 1.905 m Keith Leone MD 07/10/2024 1:12 PM Signed [facility] New Patient Evaluation Consulting Provider: Errol [facility]0 Eulalia Bartholomew [address] [address] Chief Complaint/Issues: Bhumika Umana is a 48 year old male with hx of ?RA, T2DM, past tobacco use, obesity, seen in the [facility] for: Progressive BL UE weakness and numbness Intermittent LE weakness HPI: Patient states symptoms started in December 2023 with numbness in his fingertips BL. 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 His right [...] he had celluliutis. 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 [facility]ALTH[facility] 06-26-2024 ALLIED HEALTH HNO ID: [id number] Author: ROCIO ANAYA RT(R) Service: Radiology Author Type: Software Quality Assurance Analyst Type: Allied Health Filed: 06/26/2024 07:24 Note [...] PATIENT PRESENTS WITH AN IMPLANTABLE OR ATTACHED CONTINUITY CLERK: No RADIOLOGY DEPARTMENT: MR; Exam(s) Completed: Spine: Cervical spine PERIPHERAL IV DATA: Inpatient: see LDA documentation SIGNED BY: RT Gelacio(R) June 26, 2024 7:23 AM Normal [facility] CBC panel Auto (Bld)on 06-26 Erythrocyte distribution width (RBC) [Ratio] 12.1 % Normal 11.5-15.0 [facility] Comment on above: Order Comment: Speci men Type: BLOOD SPECIMEN Ordering Facility: [facility] Address: [address] [place] [address] Performed By: #### L [id number] #### [facility] CLIA [id number] [address] [place] [address] [place] Hematocrit (Bld) [Volume fraction] 42.5 % Normal 39.0-51.0 [facility] Comment on above: Order Comment: Speci men Type: BLOOD SPECIMEN Ordering Facility: [facility] Address: [address] [place] [address] Performed By: #### L [id number] #### [facility] CLIA [id number] [address] [place] [address] [place] Hemoglobin (Bld) [Mass/Vol] 14.2 g/dL Normal 13.0-17.0 [facility] Comment on above: Order Comment: Speci men Type: BLOOD SPECIMEN Ordering Facility: [facility] Address: [address] [place] [address] Performed By: #### L [id number] #### [facility] CLIA [id number] [address] [place] [address] [place] MCH (RBC) [Entitic mass] 30.0 pg Normal 26.0-34.0 [facility] Comment on above: Order Comment: Speci men Type: BLOOD SPECIMEN Ordering Facility: [facility] Address: [address] [place] [address] Performed By: #### L [id number] #### [facility] CLIA [id number] [address] [place] [address] [place] MCHC (RBC) [Mass/Vol] 33.4 g/dL Normal 30.5-36.0 [facility] Comment on above: Order Comment: Speci men Type: BLOOD SPECIMEN Ordering Facility: [facility] Address: [address] [place] [address] Performed By: #### L [id number] #### [facility] CLIA [id number] [address] [place] [address] [place] MCV (RBC) [Entitic vol] 89.7 fL Normal 80.0-100.0 [facility] Comment on above: Order Comment: Speci men Type: BLOOD SPECIMEN Ordering Facility: [facility] Address: [address] [place] [address] Performed By: #### L [id number] #### [facility] CLIA [id number] [address] [place] [address] [place] Nucleated RBC (Bld) [#/Vol] 10*3/uL Normal <0.01 [facility] Comment on above: Order Comment: Speci men Type: BLOOD SPECIMEN Ordering Facility: [facility] Address: [address] [place], [place] [address] Performed By: #### L [id number] #### [facility] CLIA [id number] [address] [place] [address] [place] Platelet mean volume (Bld) [Entitic vol] 9.2 fL Normal 9.0-12.7 [facility] Comment on above: Order Comment: Speci men Type: BLOOD SPECIMEN Ordering Facility: [facility] Address: [address] [place] [address] Performed By: #### L [id number] #### [facility] CLIA [id number] [address] [place] [address] [place] Platelets (Bld) [#/Vol] 304 10*3/uL Normal 150-400 [facility] Comment on above: Order Comment: Speci men Type: BLOOD SPECIMEN Ordering Facility: [facility] Address: [address] [place] [address] Performed By: #### L [id number] #### [facility] CLIA [id number] [address] [place] [address] [place] RBC (Bld) [#/Vol] 4.74 10*6/uL Normal 4.20-6.00 [facility] Comment on above: Order Comment: Speci men Type: BLOOD SPECIMEN Ordering Facility: [facility] Address: [address] [place] [address] Performed By: #### L [id number] #### [facility] CLIA [id number] [address] [place] [address] [place] WBC (Bld) [#/Vol] 8.67 10*3/uL Normal 3.70-11.00 [facility] Comment on above: Order Comment: Speci men Type: BLOOD SPECIMEN Ordering Facility: [facility] Address: [address] [place] [address] Performed By: #### L [id number] #### [facility] CLIA [id number] [address] [place] [id number] [place] [address] [place] [facility] CBC PNL BLD AUTOon 06-26 [facility] NRBC # BLD AUTO <0.01 NINF [facility] PLATELET # BLD AUTO 304 [facility] PMV BLD AUTO 9.2 fL 9.0 - 12.7 fL [facility] WBC # BLD AUTO 8.67 [facility] Erythrocyte distribution width (RBC) [Ratio] 12.1 % 11.5 - 15.0 % [facility] Hematocrit (Bld) [Volume fraction] 42.5 % 39.0 - 51.0 % [facility] Hemoglobin (Bld) [Mass/Vol] 14.2 g/dL 13.0 - 17.0 g/dL [facility] MCH (RBC) [Entitic mass] 30 pg 26.0 - 34.0 pg [facility] MCHC (RBC) [Mass/Vol] 33.4 g/dL 30.5 - 36.0 g/dL [facility] MCV (RBC) [Entitic vol] 89.7 fL 80.0 - 100.0 fL [facility] RBC (Bld) [#/Vol] 4.74 10*6/uL 4.20 - 6.0 0 m/uL [facility] Specimen Type: BLOOD SPECIMEN Ordering Facility: [facility] Address: [address] [place], [place] [address] Original Ordering Provider: DI RICHARDISYNC [facility] CNDSon 06-26-2024 [facility] HNO ID: [id number] Author: LELAND DANG MD Service: General Internal [...] with the resident. I have performed the wfxw-po-lmgi and relevant services for a total of >30 minutes. Signature: Leland Dang MD Date: 06/26/2024 Time: 5:27 PM -- DISCHARGE SUMMARY PATIENT NAME: Bhumika Umana ADMISSION DATE: 06/24/2024 DISCHARGE DATE: 06/26/2024 ATTENDING PHYSICIAN: Leland Dang* Code Status: Full Code PCP: Cecy Hernandez, HERIBERTO, SUPERVISOR GROVE Highest Readmission Risk Score: 10 The 30 [...] the wall. 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 [...] his profound arm weakness and weak hand litigation paralegal. During hospitalization, neurology was consulted and cervical [...] Anti-CCP 01/2023: (more content not included)... Normal [facility] Comprehensive metabolic 2000 panelon 06-26-2024 Albumin [Mass/Vol] 4.2 g/dL Normal 3.9-4.9 [facility] Comment on above: Order Comment: Speci men Type: BLOOD SPECIMENOrdering Facility: [facility] Address: [address] [place] [address] Performed By: #### 2 885-2, 76530-4, 2284-8, 65538-7 ####[facility] [id number] [place] [address] [place] ALP [Catalytic activity/Vol] 72 U/L Normal 38-113 [facility] Comment on above: Order Comment: Speci men Type: BLOOD SPECIMENOrdering Facility: [facility] Address: [address] [place] [address] Performed By: #### 2 885-2, 49763-6, 2283-8, 81836-2 ####[facility] [id number] [place] [address] [place] ALT [Catalytic activity/Vol] 24 U/L Normal 10-54 [facility] Comment on above: Order Comment: Speci men Type: BLOOD SPECIMENOrdering Facility: [facility] Address: [address] [place] [address] Performed By: #### 2 885-2, 81176-6, 2283-8, 43569-1 ####[facility] [id number] [address] [address] [place] Anion gap [Moles/Vol] 10 mmol/L Normal 8-15 [facility] Comment on above: Order Comment: Speci men Type: BLOOD SPECIMENOrdering Facility: [facility] Address: [address] [place] [address] Performed By: #### 2 885-2, 78231-1, 228-8, 46300-8 ####[facility] [id number] [place] [address] [place] AST [Catalytic activity/Vol] 19 U/L Normal 14-40 [facility] Comment on above: Order Comment: Speci men Type: BLOOD SPECIMENOrdering Facility: [facility] Address: [address] [place] [address] Performed By: #### 2 885-2, 48867-8, 2284-8, 89465-7 ####[facility] [id number] [place] [address] [place] Bilirubin [Mass/Vol] 0.6 mg/dL Normal 0.2-1.3 [facility] Comment on above: Order Comment: Speci men Type: BLOOD SPECIMENOrdering Facility: [facility] Address: [address] [place] [address] Performed By: #### 2 885-2, 21722-9, 2283-8, 11760-0 ####[facility] [id number] [place] [address] [place] Calcium [Mass/Vol] 9.3 mg/dL Normal 8.5-10.2 [facility] Comment on above: Order Comment: Speci men Type: BLOOD SPECIMENOrdering Facility: [facility] Address: [address] [place] [address] Performed By: #### 2 885-2, 20469-3, 2283-8, 38256-2 ####[facility] [id number] [place] [address] [place] Chloride [Moles/Vol] 104 mmol/L Normal 98-107 [facility] Comment on above: Order Comment: Speci men Type: BLOOD SPECIMENOrdering Facility: [facility] Address: [address] [place] [address] Performed By: #### 2 885-2, 48498-4, 2284-8, 93920-9 ####[facility] [id number] [place] [address] [place] CO2 [Moles/Vol] 27 mmol/L Normal 22-30 [facility] Comment on above: Order Comment: Speci men Type: BLOOD SPECIMENOrdering Facility: [facility] Address: [address] [place] [address] Performed By: #### 2 885-2, 29458-3, 2283-8, 74636-0 ####[facility] [id number] [place] [address] [place] Creatinine [Mass/Vol] 0.65 mg/dL Low 0.73-1.22 [facility] Comment on above: Order Comment: Speci men Type: BLOOD SPECIMENOrdering Facility: [facility] Address: [address] [place] [address] Performed By: #### 2 885-2, 83876-5, 8, ####[facility] [id number] [place] [address] [place] Creatinine and Glomerular filtration rate.predicted panel (S/P/Bld) 118 mL/min/1.73m??? Normal >=60 [facility] Comment on above: Order Comment: Speci men Type: BLOOD SPECIMENOrdering Facility: [facility] Address: [address] [place] [address] Result Comment: Alexa mated Glomerular Filtration Rate [...] actual GFR. Performed By: #### 2 885-2, 79742-8, 2283-8, 78091-3 ####[facility] [id number] [place] [id number] [place] Glucose [Mass/Vol] 94 mg/dL Normal 74-99 [facility] Comment on above: Order Comment: Speci men Type: BLOOD SPECIMENOrdering Facility: [facility] Address: [address] [place] [address] Result Comment: The [place] Diabetes Association (ADA) provides guidance for cutoff [...] Standards of Medical Care in Diabetes 2016, [place] [employer] Association. Diabetes Care. 2016.39(Suppl 1). Performed By: #### 2 885-2, 06495-0, 2283-8, ####[facility] [id number] [place] [address] [place] Potassium [Moles/Vol] 3.9 mmol/L Normal 3.7-5.1 [facility] Comment on above: Order Comment: Speci men Type: BLOOD SPECIMENOrdering Facility: [facility] Address: [address] [place] [address] Performed By: #### 2 885-2, 64764-7, 2284-03, ####[facility] [id number] [place] [id number] [place] Sodium [Moles/Vol] 141 mmol/L Normal 136-144 [facility] Comment on above: Order Comment: Speci men Type: BLOOD SPECIMENOrdering Facility: [facility] Address: [address] [place] [address] Performed By: #### 2 885-2, 84557-4, 2283-8, 07383-6 ####[facility] [id number] [place] [id number] [place] Urea nitrogen [Mass/Vol] 10 mg/dL Normal 9-24 [facility] Comment on above: Order Comment: Speci men Type: BLOOD SPECIMENOrdering Facility: [facility] Address: [address] [place], [place] [address] Performed By: #### 2 885-2, 96834-8, 2284-8, 71650-5 ####[facility] [id number] [place] [id number] [place] Folate SerPl-mCncon 06-26-20 Folate [Mass/Vol] 11.6 ng/mL Normal >4.7 [facility] Comment on above: Order Comment: Speci men Type: BLOOD SPECIMENOrdering Facility: [facility] Address: [address] [place] [address] Performed By: #### 2 885-2, 66074-9, 2284-8, 62584-8 ####[facility] [id number] [place] [id number] [place] MRI CERVICAL SPINE [...] vertebrae with counting from the craniocervical junction. Road Freight Brake Coupler: PSCB Transcribe Date/Time: Jun 26 2024 7:33A Dictated by : SUDHIR PUENTE MD This examination was interpreted and the report reviewed and electronically signed by: BRIDGET LIND MD on Jun 26 2024 8:09AM EST [id number] Normal [facility] Magnesium SerPl-mCncon 06-26 Magnesium [Mass/Vol] 2.0 mg/dL Normal 1.7-2.3 [facility] Comment on above: Order Comment: Speci men Type: BLOOD SPECIMENOrdering Facility: [facility] Address: [address] [place] [address] Performed By: #### 2 885-2, 11879-4, 2284-8, 64525-5 ####[facility] [id number] [facility] [id number] [address] [place] NURSING PROGon 06-26-2024 NURSING PROG HNO ID: [id number] Author: SUSANA CAST RN Service: Radiology Author [...] June 26, 2024 TIME: 6:38 AM Normal [facility] PROTEIN ELECTROPHORESIS SERU M WITH ELIN (P)on 06-26-2024 Albumin [Mass/Vol] 3.83 g/dL Normal 3.43-5.41 [facility] Comment on above: Order Comment: Speci men Type: BLOOD SPECIMEN Ordering Facility: [facility] Address: [address] [place] [address] Performed By: #### L [id number] #### [facility] CLIA [id number] [address] [place] [address] [place] Alpha 1 globulin Elph [Mass/Vol] 0.26 g/dL Normal 0.18-0.43 [facility] Comment on above: Order Comment: Speci men Type: BLOOD SPECIMEN Ordering Facility: [facility] Address: [address] [place] [address] Performed By: #### L [id number] #### [facility] CLIA [id number] [address] [place] [address] [place] Alpha 2 globulin Elph [Mass/Vol] 0.62 g/dL Normal 0.42-0.98 [facility] Comment on above: Order Comment: Speci men Type: BLOOD SPECIMEN Ordering Facility: [facility] Address: [address] [place] [address] Performed By: #### L [id number] #### [facility] CLIA [id number] [address] [place] [address] [place] Beta globulin Elph [Mass/Vol] 0.76 g/dL Normal 0.61-1.17 [facility] Comment on above: Order Comment: Speci men Type: BLOOD SPECIMEN Ordering Facility: [facility] Address: [address] [place] [address] Performed By: #### L [id number] #### [facility] CLIA [id number] [address] [place] [address] [place] COMMENT (SERUM PROT ELECTRO) Monoclonal Protein analysis (immunofixation) is not indicated. Normal [facility] Comment on above: Order Comment: Speci men Type: BLOOD SPECIMEN Ordering Facility: [facility] Address: [address] [place] [address] Performed By: #### L [id number] #### [facility] CLIA [id number] [address] [place] [address] [place] Gamma globulin Elph [Mass/Vol] 0.62 g/dL Normal 0.53-1.51 [facility] Comment on above: Order Comment: Speci men Type: BLOOD SPECIMEN Ordering Facility: [facility] Address: [address] [place] [address] Performed By: #### L [id number] #### [facility] CLIA [id number] 22 [place] [address] [place] M-PROTEIN LOCATION Normal [facility] Comment on above: Order Comment: Speci men Type: BLOOD SPECIMEN Ordering Facility: [facility] Address: [address] [place] [address] Result Comment: Not Applicable. Performed By: #### L [id number] #### [facility] CLIA [id number] [address] [place] [address] [place] Protein Fractions [Interp] No definitive M protein is identified on protein electrophoresis. Normal No definitive M protein is identified on protein electrophore sis. [facility] Comment on above: Order Comment: Speci men Type: BLOOD SPECIMEN Ordering Facility: [facility] Address: [address] [place] [address] Performed By: #### L [id number] #### [facility] CLIA [id number] [address] [place] [address] [place] Protein.monoclonal Elph [Mass/Vol] 0.00 g/dL Normal <=0.00 [facility] Comment on above: Order Comment: Speci men Type: BLOOD SPECIMEN Ordering Facility: [facility] Address: [address] [place] [address] Performed By: #### L [id number] #### [facility] CLIA [id number] [address] [place] [address] [place] SPE STAFF REVIEW Reviewed by Merritt Villafuerte MD, Ph.D ([id number]) Normal [facility] Comment on above: Order Comment: Speci men Type: BLOOD SPECIMEN Ordering Facility: [facility] Address: [address] [place] [address] Performed By: #### L [id number] #### [facility] CLIA [id number] [address] [place] [address] [place] Prot SerPl-mCncon 06-26-2024 Protein [Mass/Vol] 6.1 g/dL Low 6.3-8.0 [facility] Comment on above: Order Comment: Speci men Type: BLOOD SPECIMENOrdering Facility: [facility] Address: [address] [place] [address] Performed By: #### 2 885-2, 39620-6, 2284-8, 86168-9 ####[facility] [id number] [place] [id number] [facility] THERAPY NTon 06-26-2024 THERAPY NT HNO ID: [id number] Author: SANTA COFFEY, PT, DPT Service: Physical Therapy Author Type: Physical Therapist Type: Therapy (PT/OT/Speech/Resp) Filed: 06/26/2024 14:51 Note Text: Physical Therapy Treatment Summary SERVICE DATE: 06/26/2024 SERVICE TIME: 1425 to 1448 ROOM: [place] [address] PT 6 Clicks Score: 24 DISCHARGE RECOMMENDATIONS [...] Muscle Weakness (generalized) TREATMENT INTERVENTIONS Therapeutic Activity (08679) Timed Code Treatment (minutes): 23 Skilled Treatment [...] June 26, 2024 TIME: 2:51 PM Normal [facility] THERAPY NT HNO ID: [id number] Author: DEIRDRE MORGAN, OTR/L, OTD Service: Occupational Therapy Author Type: Occupational Therapist Type: Therapy (PT/OT/Speech/Resp) Filed: 06/26/2024 11:17 Note Text: Occupational Therapy Evaluation Summary SERVICE DATE: 06/26/2024 SERVICE TIME: 0839 to 1010 ROOM: [place] [address] OT 6 Clicks Score: 16 DISCHARGE RECOMMENDATIONS [...] Muscle Weakness (generalized) TREATMENT INTERVENTIONS Evaluation, Self Correction Management (59615), Cognitive Training (77770 and 91936) Timed Code Treatment (minutes): 76 Skilled Treatment Time (minutes): 91 TRAINING AND EDUCATION PROVIDED Activity Adaptation/Compensatory Strategies, Assistive Device Use, Adaptive Equipment/DME, Benefits of In-Hospital Mobility, Command Following, Coping Skills/Resiliency, Discharge Planning, Energy Conservation, Functional Mobility Involving ADLs, Grooming Tasks, IADLs/Home Management, Identification of Systems of Support, Life Roles/Routines/Habits, Positioning, Role of Occupational Therapy, Sitting Balance to Improve [place] with ADLs/Self-Care, Splint Management, Standing Balance to Improve [place] with ADLs/Self-Care, Transfer - Sit to Stand, [...] needs identified to allow safe discharge to [facility] (more content not included)... Normal [facility] VITAMIN B6/PYRIDOXINon 06-26 VITAMIN B6 32.1 nmol/L Normal 20.0-125.0 [facility] Comment on above: Order Comment: Speci men Type: BLOOD SPECIMEN Ordering Facility: [facility] Address: [address] [place] [address] Result Comment: INTE RPRETIVE INFORMATION: Vitamin B6 (Pyridoxal 5-Phosphate) Pyridoxal 5'-phosphate measured in a specimen collected following an 8-hour or overnight fast accurately indicates vitamin B6 nutritional status. Non-fasting specimen concentration reflects recent vitamin intake. This test was developed and its performance characteristics determined by [facility]. It has not been cleared or approved by the [place] Food and Drug Administration. This test was performed in a CLIA certified laboratory and is intended for clinical purposes. Performed By: [facility] [address] [place] [address] Stamping Machine Operator: Leonardo Topete MD, PhD CLIA Number: [id number] Performed By: #### L [id number] #### [facility] CLIA [id number] [address] [place] [address] [place] CASE MANAGEMon 06-25-2024 CASE MANAGEM HNO ID: [id number] Author: MOE ARANGO LISW Service: ? Author Type: Supervisor Metalizing Type: Care Mgt Progress Note Filed: 06/25/2024 14:25 Note Text: CARE MANAGEMENT/ SOCIAL WORK HIGH RISK PSYCHOSOCIAL ASSESSMENT SERVICE DATE: June 25, 2024 SERVICE TIME: 2:05 PM Reason for Admission: Weakness [R53.1] Reason for Social Work Contact: Housing Time Spent (minutes): 30 Information Obtained From: Patient Issuer Chart Patient Granted Permission to Speak to Others in the Room: Not Applicable SOCIAL HISTORY Marital Status: Single Children (Including Quality of Relationship): Unknown Gender Identity: Male Abuse History: Not Applicable Support System: Family: Brother Status (Including History of Combat Experience): None PSYCHIATRIC HISTORY: Diagnosis: Depression Family Psychiatric History Unknown Substance Use and Treatment History: 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 [...] recently evicted after his sister became the software solutions architect earlier this year. Pt reported his father [...] office for assistance. Per EMR, pt with [employer]. SW encouraged pt to contact his insurance to request a case liner for additional community support. Pt will plan to brother's home at time of discharge. Pt denied any other questions or concerns at this time. Should any other psychosocial needs arise, please re-consult BELINDA. SIGNATURE: YAW Vincent PATIENT NAME: Bhumika Umana DATE: June 25, 2024 TIME: 2:05 PM CONTACT #: [phone] Normal [facility] CBC panel Auto (Bld)on 06-25 Erythrocyte distribution width (RBC) [Ratio] 12.3 % Normal 11.5-15.0 [facility] Comment on above: Order Comment: Speci men Type: BLOOD SPECIMEN Ordering Facility: [facility] Address: [address] [place] [address] Performed By: #### L [id number] #### [facility] CLIA [id number] [address] [place] [address] [place] Hematocrit (Bld) [Volume fraction] 41.9 % Normal 39.0-51.0 [facility] Comment on above: Order Comment: Speci men Type: BLOOD SPECIMEN Ordering Facility: [facility] Address: [address] [place] [address] Performed By: #### L [id number] #### [facility] CLIA [id number] [address] [place] [address] [place] Hemoglobin (Bld) [Mass/Vol] 13.8 g/dL Normal 13.0-17.0 [facility] Comment on above: Order Comment: Speci men Type: BLOOD SPECIMEN Ordering Facility: [facility] Address: [address] [place] [address] Performed By: #### L [id number] #### [facility] CLIA [id number] [address] [place] [address] [place] MCH (RBC) [Entitic mass] 29.9 pg Normal 26.0-34.0 [facility] Comment on above: Order Comment: Speci men Type: BLOOD SPECIMEN Ordering Facility: [facility] Address: [address] [place] [address] Performed By: #### L [id number] #### [facility] CLIA [id number] [address] [place] [address] [place] MCHC (RBC) [Mass/Vol] 32.9 g/dL Normal 30.5-36.0 [facility] Comment on above: Order Comment: Speci men Type: BLOOD SPECIMEN Ordering Facility: [facility] Address: [address] [place] [address] Performed By: #### L [id number] #### [facility] CLIA [id number] [address] [place] [address] [place] MCV (RBC) [Entitic vol] 90.7 fL Normal 80.0-100.0 [facility] Comment on above: Order Comment: Speci men Type: BLOOD SPECIMEN Ordering Facility: [facility] Address: [address] [place] [address] Performed By: #### L [id number] #### [facility] CLIA [id number] [address] [place] [address] [place] Nucleated RBC (Bld) [#/Vol] 10*3/uL Normal <0.01 [facility] Comment on above: Order Comment: Speci men Type: BLOOD SPECIMEN Ordering Facility: [facility] Address: [address] [place] [address] Performed By: #### L [id number] #### [facility] CLIA [id number] [address] [place] [address] [place] Platelet mean volume (Bld) [Entitic vol] 9.3 fL Normal 9.0-12.7 [facility] Comment on above: Order Comment: Speci men Type: BLOOD SPECIMEN Ordering Facility: [facility] Address: [address] [place] [address] Performed By: #### L [id number] #### [facility] CLIA [id number] [address] [place] [address] [place] Platelets (Bld) [#/Vol] 290 10*3/uL Normal 150-400 [facility] Comment on above: Order Comment: Speci men Type: BLOOD SPECIMEN Ordering Facility: [facility] Address: [address] [place] [address] Performed By: #### L [id number] #### [facility] CLIA [id number] [address] [place] [address] [place] RBC (Bld) [#/Vol] 4.62 10*6/uL Normal 4.20-6.00 [facility] Comment on above: Order Comment: Speci men Type: BLOOD SPECIMEN Ordering Facility: [facility] Address: [address] [place] [address] Performed By: #### L [id number] #### [facility] CLIA [id number] [address] [place] [address] [place] WBC (Bld) [#/Vol] 8.92 10*3/uL Normal 3.70-11.00 [facility] Comment on above: Order Comment: Speci men Type: BLOOD SPECIMEN Ordering Facility: [facility] Address: [address] [place] [address] Performed By: #### L [id number] #### [facility] CLIA [id number] [address] [place] [address] [place] [facility] RAVINDER BY IFA WITH REFLEXon 06-25-2024 Interpretation and review of laboratory results Abnormal [facility] Nuclear Ab pattern (S) [Interp] Nuclear fine speckled [facility] Nuclear Ab Ql (S) Positive Abnormal Negative [facility] Comment on above: Anti-nuclear antibod y test is used as an aid in diagnosis of systemic autoimmune diseases. Where positive and clinically warranted, follow-up using disease-specific testing is recommended. Low positive titers are not uncommon with advanced age, certain chronic infections, and malignancies among others. Test methodology: Indirect fluorescence immunoassay (IFA) using HEp-2 cells. 1:160 Specimen Type: BLOOD SPECIMEN Ordering Facility: [facility] Address: [address] [place] [address] Original Ordering Provider: DI OSSA [facility] VIT B12 BRANDTL-DIANNEon Cobalamin (Vitamin B12) [Mass/Vol] 499 pg/mL 232 - 1245 pg/mL [facility] Specimen Type: BLOOD SPECIMEN Ordering Facility: [facility] Address: [address] [place] [address] Original Ordering Provider: LELAND DANG [facility] COPPER BLOODon 06-25-2024 Copper [Mass/Vol] 115 ug/dL Normal 70-140 [facility] Comment on above: Order Comment: Speci men Type: BLOOD SPECIMENOrdering Facility: [facility] Address: [address] [place] [address] Result Comment: This test was developed, and its performance characteristics determined by the [facility] Department of Pathology and Laboratory Medicine. It has not been cleared or approved by the FDA. The [facility] Department of Pathology and Laboratory Medicine is regulated under CLIA as qualified to perform high-complexity testing. This test is used for clinical purposes. It should not be regarded as investigational or for research. Performed By: #### C CISCO, 5763-8 ####[facility] [id number] [place] [address] [place] Comprehensive metabolic 2000 panelon 06-25-2024 Albumin [Mass/Vol] 3.9 g/dL Normal 3.9-4.9 [facility] Comment on above: Order Comment: Speci men Type: BLOOD SPECIMENOrdering Facility: [facility] Address: [address] [place] [address] Performed By: #### 1 9123-9, 2132-04, ####[id number] [place] [address] [place] ALP [Catalytic activity/Vol] 70 U/L Normal 38-113 [facility] Comment on above: Order Comment: Speci men Type: BLOOD SPECIMENOrdering Facility: [facility] Address: [address] [place] [address] Performed By: #### 1 9123-9, 2132-04, 86702-2 ####[facility] [id number] [place] [address] [place] ALT [Catalytic activity/Vol] 24 U/L Normal 10-54 [facility] Comment on above: Order Comment: Speci men Type: BLOOD SPECIMENOrdering Facility: [facility] Address: [address] [place] [address] Performed By: #### 1 9123-9, 2132-04, ####[facility] [id number] [place] [address] [place] Anion gap [Moles/Vol] 12 mmol/L Normal 8-15 [facility] Comment on above: Order Comment: Speci men Type: BLOOD SPECIMENOrdering Facility: [facility] Address: [address] [place] [address] Performed By: #### 1 9123-9, 2132-04, ####[facility] [id number] [place] [address] [place] AST [Catalytic activity/Vol] 15 U/L Normal 14-40 [facility] Comment on above: Order Comment: Speci men Type: BLOOD SPECIMENOrdering Facility: [facility] Address: [address] [place] [address] Performed By: #### 1 9123-9, 2132-04, ####[facility] [id number] [place] [address] [place] Bilirubin [Mass/Vol] 0.7 mg/dL Normal 0.2-1.3 [facility] Comment on above: Order Comment: Speci men Type: BLOOD SPECIMENOrdering Facility: [facility] Address: [address] [place] [address] Performed By: #### 1 9123-9, 2132-04, ####[facility] [id number] [place] [address] [place] Calcium [Mass/Vol] 9.1 mg/dL Normal 8.5-10.2 [facility] Comment on above: Order Comment: Speci men Type: BLOOD SPECIMENOrdering Facility: [facility] Address: [address] [place] [address] Performed By: #### 1 23-9, 2132-04, ####[facility] [id number] [address] [address] [place] Chloride [Moles/Vol] 105 mmol/L Normal 98-107 [facility] Comment on above: Order Comment: Speci men Type: BLOOD SPECIMENOrdering Facility: [facility] Address: [address] [place] [address] Performed By: #### 1 23-9, 2132-04, ####[facility] [id number] [place] [address] [place] CO2 [Moles/Vol] 24 mmol/L Normal 22-30 [facility] Comment on above: Order Comment: Speci men Type: BLOOD SPECIMENOrdering Facility: [facility] Address: [address] [place] [address] Performed By: #### 1 239, 2132-04, ####[facility] [id number] [place] [address] [place] Creatinine [Mass/Vol] 0.62 mg/dL Low 0.73-1.22 [facility] Comment on above: Order Comment: Speci men Type: BLOOD SPECIMENOrdering Facility: [facility] Address: [address] [place] [address] Performed By: #### 1 23-9, 2132-04, ####[facility] [id number] [place] [id number] [place] Creatinine and Glomerular filtration rate.predicted panel (S/P/Bld) 119 mL/min/1.73m??? Normal >=60 [facility] Comment on above: Order Comment: Speci men Type: BLOOD SPECIMENOrdering Facility: [facility] Address: [address] [place] [address] Result Comment: Alexa mated Glomerular Filtration Rate [...] GFR. Performed By: #### 1 9, 2132-04, ####[facility] [id number] [address] [address] [place] Glucose [Mass/Vol] 88 mg/dL Normal 74-99 [facility] Comment on above: Order Comment: Deborah finley Type: BLOOD SPECIMENOrdering Facility: [facility] Address: [address] [place] [address] Result Comment: The [place] Diabetes Association (ADA) provides guidance for cutoff [...] Standards of Medical Care in Diabetes 2016, [place] Diabetes Association. Diabetes Care. 2016.39(Suppl 1). Performed By: #### 1 9, 2132-04, ####[facility] [id number] [address] [address] [place] Potassium [Moles/Vol] 3.6 mmol/L Low 3.7-5.1 [facility] Comment on above: Order Comment: Deborah finley Type: BLOOD SPECIMENOrdering Facility: [facility] Address: [address] [place] [address] Performed By: #### 1 239, 2132-04, ####[facility] [id number] [place] [address] [place] Protein [Mass/Vol] 6.4 g/dL Normal 6.3-8.0 [facility] Comment on above: Order Comment: Speci men Type: BLOOD SPECIMENOrdering Facility: [facility] Address: [address] [place] [address] Performed By: #### 1 9123-9, 2132-04, 60229-6 ####[facility]IA [id number] [place] [address] [place] Sodium [Moles/Vol] 141 mmol/L Normal 136-144 [facility] Comment on above: Order Comment: Speci men Type: BLOOD SPECIMENOrdering Facility: [facility] Address: [address] [place] [address] Performed By: #### 1 9123-9, 2132-04, 17933-2 ####[facility]IA [id number] [place] [address] [place] Urea nitrogen [Mass/Vol] 8 mg/dL Low 9-24 [facility] Comment on above: Order Comment: Speci men Type: BLOOD SPECIMENOrdering Facility: [facility] Address: [address] [place] [address] Performed By: #### 1 9123-9, 2132-04, 72121-8 ####[facility]IA [id number] [place] [address] [place] HIV 1+2 Ab IA Qlon 4 HIV 1 and 2 Ab IA.rapid Nom (S/P/Bld) Normal [facility] Comment on above: Order Comment: Speci men Type: BLOOD SPECIMEN Ordering Facility: [facility] Address: [address] [place] [address] Result Comment: Test not indicated. Performed By: #### L [id number] #### [facility] CLIA [id number] [address] [place] [address] [place] HIV 1+2 Ab+HIV1 p24 Ag IA Ql Non-Reactive Normal Nonreactive [facility] Comment on above: Order Comment: Speci men Type: BLOOD SPECIMEN Ordering Facility: [facility] Address: [address] [place] [address] Performed By: #### L [id number] #### [facility] CLIA [id number] [address] [place] [address] [place] HIV immunoassay testing algorithm interpretation (S/P/Bld) [Interp] Normal [facility] Comment on above: Order Comment: Speci men Type: BLOOD SPECIMEN Ordering Facility: [facility] Address: [address] [place] [address] Result Comment: No e vidence of HIV-1 or HIV-2 infection. Should recent infection be suspected, repeat testing may be considered 2-3 weeks after this draw. [place] Rev. Code 3701.243(E): This information has been [...] results or diagnoses. Performed By: #### L [id number] #### [facility] CLIA [id number] [address] [place] [address] [place] Magnesium SerPl-mCncon 06-25 Magnesium [Mass/Vol] 2.0 mg/dL Normal 1.7-2.3 [facility] Comment on above: Order Comment: Speci men Type: BLOOD SPECIMENOrdering Facility: [facility] Address: [address] [place] [address] Performed By: #### 1 9123-9, 2132-9, 79363-4 ####[facility] [id number] [place] [address] [place] Methylmalonate SerPl-sCncon 06-25-2024 Methylmalonate [Moles/Vol] 0.25 umol/L Normal <=0.40 [facility] Comment on above: Order Comment: Speci men Type: BLOOD SPECIMEN Ordering Facility: [facility] Address: [address] [place] [address] Result Comment: This test was developed, and its performance characteristics determined by the [facility] Department of Pathology and Laboratory Medicine. It has not been cleared or approved by the FDA. The [facility] Department of Pathology and Laboratory Medicine is regulated under CLIA as qualified to perform high-complexity testing. This test is used for clinical purposes. It should not be regarded as investigational or for research. Performed By: #### 1 3964-2 #### [facility] CLIA [id number] [address] [place] [address] [place] [address] [place] NUTRITIONon 06-25-2024 NUTRITION HNO ID: [id number] Author: OH HOBSON [address] Service: Nutrition Therapy [...] the wall. 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 [...] Weight Type: Admit weight Estimated kilocalorie needs: 2912-7639 Calorie Calculation Method: 10-15 kcals/kg Estimated protein [...] June 25, 2024 TIME: 1:00 PM Normal [facility] THERAPY NTon 06-25-2024 THERAPY NT HNO ID: [id number] Author: SANTA COFFEY, PT, DPT Service: Physical Therapy Author Type: Physical Therapist Type: Therapy (PT/OT/Speech/Resp) Filed: 06/25/2024 08:37 Note Text: Physical Therapy Evaluation Summary SERVICE DATE: 06/25/2024 SERVICE TIME: 739 to 818 ROOM: [place] [address] PT 6 Clicks Score: 24 DISCHARGE RECOMMENDATIONS [...] Weakness (generalized) TREATMENT INTERVENTIONS Evaluation, Therapeutic Activity (13015), Therapeutic Exercise (71642) Timed Code Treatment (minutes): 23 Skilled Treatment [...] June 25, 2024 TIME: 8:37 AM Normal [facility] VITAMIN B1 (THIAMINE), WHOLE BLOODon 06-25-2024 Thiamine (Bld) [Moles/Vol] 199.2 nmol/L Normal 84.3-213.3 [facility] Comment on above: Order Comment: Speci men Type: BLOOD SPECIMENOrdering Facility: [facility] Address: [address] [place] [address] Result Comment: This assay measures the concentration of thiamine diphosphate (TDP), the primary active form of vitamin B1. Approximately 90 percent of vitamin B1 present in whole blood is TDP. Thiamine and thiamine monophosphate, which comprise the remaining 10 percent, are not measured. This test was developed, and its performance characteristics determined by the [facility] Department of Pathology and Laboratory Medicine. It has not been cleared or approved by the FDA. The [facility] Department of Pathology and Laboratory Medicine is regulated under CLIA as qualified to perform high-complexity testing. This test is used for clinical purposes. It should not be regarded as investigational or for research. Performed By: #### B 1WB ####[facility] [id number] [place] [address] [place] Vit B12 SerPl-mCncon 024 Cobalamin (Vitamin B12) [Mass/Vol] 499 pg/mL Normal 232-1245 [facility] Comment on above: Order Comment: Deborah finley Type: BLOOD SPECIMENOrdering Facility: [facility] Address: [address] [place] [address] Performed By: #### 1 9123-9, 2132-9, 28784-1 ####[facility] [id number] [place] [address] [place] Zinc SerPl-mCncon 06-25-2024 Zinc [Mass/Vol] 66 ug/dL Normal 60-120 [facility] Comment on above: Order Comment: Joeli malia Type: BLOOD SPECIMENOrdering Facility: [facility] Address: [address] [place] [address] Result Comment: This test was developed, and its performance characteristics determined by the [facility] Department of Pathology and Laboratory Medicine. It has not been cleared or approved by the FDA. The [facility] Department of Pathology and Laboratory Medicine is regulated under CLIA as qualified to perform high-complexity testing. This test is used for clinical purposes. It should not be regarded as investigational or for research. Performed By: #### C OPPER, 5763-8 ####[facility] [id number] [place] [address] [place] ACETYLCHOLINE REC BINDING AB on 06-24-2024 ACETYLCHOLINE BINDING, QUAL Negative Normal Negative [facility] Comment on above: Order Comment: Speci men Type: BLOOD SPECIMENOrdering Facility: [facility] Address: [address] [place] [address] Result Comment: Anti -acetylcholine receptor binding antibody test is used as an aid in diagnosis of myasthenia gravis. A negative result cannot exclude myasthenia gravis. Clinical correlation is required. Performed By: #### A CHRAB ####[facility] [id number] [place] [address] [place] Acetylcholine receptor binding Ab (S) [Moles/Vol] <0.02 Normal <0.21 [facility] Comment on above: Order Comment: Speci men Type: BLOOD SPECIMENOrdering Facility: [facility] Address: [address] [place] [address] Performed By: #### A CHRAB ####[facility] [id number] [place] [address] [place] RAVINDER BY IFA WITH REFLEXon Nuclear Ab pattern (S) [Interp] Nuclear fine speckled Normal [facility] Comment on above: Order Comment: Speci men Type: BLOOD SPECIMENOrdering Facility: [facility] Address: [address] [place] [address] Performed By: #### 5 1775-5, 21860-9, 08662-2, 71187-3, 70558-6, 19751-4, 01748-0, ANAIFR, 97767-9, 05529-5 ####[facility] [id number] [place] [address] [place] Nuclear Ab Ql (S) Positive Abnormal Negative [facility] Comment on above: Order Comment: Speci men Type: BLOOD SPECIMENOrdering Facility: [facility] Address: [address] [place] [address] Result Comment: Anti -nuclear antibody test is used as an aid in diagnosis of systemic autoimmune diseases. Where positive and clinically warranted, follow-up using disease-specific testing is recommended. Low positive titers are not uncommon with advanced age, certain chronic infections, and malignancies among others. Test methodology: Indirect fluorescence immunoassay (IFA) using HEp-2 cells. 1:160 Performed By: #### 5 1775-5, 40613-9, 65794-9, 59011-3, 44963-3, 94786-4, 59432-6, ANAIFR, 49553-8, 76498-5 ####[facility] [id number] [place] [id number] [place] C3 SerPl-mCncon 06-24-2024 Complement C3 [Mass/Vol] 154 mg/dL Normal 86-166 [facility] Comment on above: Order Comment: Speci men Type: BLOOD SPECIMENOrdering Facility: [facility] Address: [address] [place] [address] Performed By: #### 3 016-3, 4498-2, 2157-01, 1987-12, , , 4485-04 ####[facility]CL[facility] [id number] [place] [id number] [place] C4 SerPl-mCncon 06-24-2024 Complement C4 [Mass/Vol] 24 mg/dL Normal 13-46 [facility] Comment on above: Order Comment: Speci men Type: BLOOD SPECIMENOrdering Facility: [facility] Address: [address] [place], [place] [address] Performed By: #### 3 016-3, 4498-2, 2157-01, 1987-12, , , 4485-04 ####[facility] [id number] [place] [id number] [place] CBC W Auto Differential pane l (Bld)on 06-24-2024 Basophils (Bld) [#/Vol] 0.04 10*3/uL Normal <0.11 [facility] Comment on above: Order Comment: Speci men Type: BLOOD SPECIMENOrdering Facility: [facility] Address: [address] [place] [address] Performed By: #### 5 5454-3, 67548-1, 4536-7 ####[facility]CL[facility] [id number] [facility] [place] [address] [place] Basophils/100 WBC (Bld) 0.5 % Normal [facility] Comment on above: Order Comment: Speci men Type: BLOOD SPECIMENOrdering Facility: [facility] Address: [address] [place] [address] Performed By: #### 5 5454-3, 07721-7, 7 ####[facility] [id number] [facility] [place] [address] [place] Differential cell count method Nom (Bld) Auto Normal [facility] Comment on above: Order Comment: Speci men Type: BLOOD SPECIMENOrdering Facility: [facility] Address: [address] [place] [address] Performed By: #### 5 5454-3, 18807-8, 7 ####[facility] [id number] [facility] [place] [address] [place] Eosinophils (Bld) [#/Vol] 0.17 10*3/uL Normal <0.46 [facility] Comment on above: Order Comment: Speci men Type: BLOOD SPECIMENOrdering Facility: [facility] Address: [address] [place] [address] Performed By: #### 5 5454-3, 51427-3, 7 ####[facility] [id number] [facility] [place] [address] [place] Eosinophils/100 WBC (Bld) 2.0 % Normal [facility] Comment on above: Order Comment: Speci men Type: BLOOD SPECIMENOrdering Facility: [facility] Address: [address] [place] [address] Performed By: #### 5 5454-3, 34720-7, 4537-7 ####[facility] [id number] [place] [address] [place] Erythrocyte distribution width (RBC) [Ratio] 12.3 % Normal 11.5-15.0 [facility] Comment on above: Order Comment: Speci men Type: BLOOD SPECIMENOrdering Facility: [facility] Address: [address] [place] [address] Performed By: #### 5 5454-3, 89832-5, 4537-7 ####[facility] [id number] [place] [address] [place] Hematocrit (Bld) [Volume fraction] 46.2 % Normal 39.0-51.0 [facility] Comment on above: Order Comment: Speci men Type: BLOOD SPECIMENOrdering Facility: [facility] Address: [address] [place] [address] Performed By: #### 5 5454-3, 08927-2, 4537-7 ####[facility] [id number] [place] [address] [place] Hemoglobin (Bld) [Mass/Vol] 15.2 g/dL Normal 13.0-17.0 [facility] Comment on above: Order Comment: Speci men Type: BLOOD SPECIMENOrdering Facility: [facility] Address: [address] [place] [address] Performed By: #### 5 5454-3, 75200-1, 4537-7 ####[facility] [id number] [place] [address] [place] Immature granulocytes (Bld) [#/Vol] 0.04 10*3/uL Normal <0.10 [facility] Comment on above: Order Comment: Speci men Type: BLOOD SPECIMENOrdering Facility: [facility] Address: [address] [place] [address] Performed By: #### 5 5454-3, 53035-0, 7-7 ####[facility]CL[facility] [id number] [place] [address] [place] Immature granulocytes/100 WBC (Bld) 0.5 % Normal [facility] Comment on above: Order Comment: Speci men Type: BLOOD SPECIMENOrdering Facility: [facility] Address: [address] [place] [address] Performed By: #### 5 5454-3, 22974-0, 4537-7 ####[facility] [id number] [place] [address] [place] Lymphocytes (Bld) [#/Vol] 2.13 10*3/uL Normal 1.00-4.00 [facility] Comment on above: Order Comment: Speci men Type: BLOOD SPECIMENOrdering Facility: [facility] Address: [address] [place] [address] Performed By: #### 5 5454-3, 21846-8, 7-7 ####[facility] [id number] [place] [address] [place] Lymphocytes/100 WBC (Bld) 25.0 % Normal [facility] Comment on above: Order Comment: Speci men Type: BLOOD SPECIMENOrdering Facility: [facility] Address: [address] [place] [address] Performed By: #### 5 5454-3, 24080-1, 4537-7 ####[facility] [id number] [place] [address] [place] MCH (RBC) [Entitic mass] 29.4 pg Normal 26.0-34.0 [facility] Comment on above: Order Comment: Speci men Type: BLOOD SPECIMENOrdering Facility: [facility] Address: [address] [place] [address] Performed By: #### 5 5454-3, 00189-5, 4537-7 ####[facility] [id number] [place] [address] [place] MCHC (RBC) [Mass/Vol] 32.9 g/dL Normal 30.5-36.0 [facility] Comment on above: Order Comment: Speci men Type: BLOOD SPECIMENOrdering Facility: [facility] Address: [address] [place] [address] Performed By: #### 5 5454-3, 48841-7, 453-7 ####[facility] [id number] [place] [address] [place] MCV (RBC) [Entitic vol] 89.4 fL Normal 80.0-100.0 [facility] Comment on above: Order Comment: Speci men Type: BLOOD SPECIMENOrdering Facility: [facility] Address: [address] [place] [address] Performed By: #### 5 5454-3, 00584-4, 4537-7 ####[facility] [id number] [place] [address] [place] Monocytes (Bld) [#/Vol] 0.57 10*3/uL Normal <0.87 [facility] Comment on above: Order Comment: Speci men Type: BLOOD SPECIMENOrdering Facility: [facility] Address: [address] [place] [address] Performed By: #### 5 5454-3, 12464-1, 4537-7 ####[facility] [id number] [place] [address] [place] Monocytes/100 WBC (Bld) 6.7 % Normal [facility] Comment on above: Order Comment: Speci men Type: BLOOD SPECIMENOrdering Facility: [facility] Address: [address] [place] [address] Performed By: #### 5 5454-3, 06082-3, 7-7 ####[facility] [id number] [place] [address] [place] Neutrophils (Bld) [#/Vol] 5.56 10*3/uL Normal 1.45-7.50 [facility] Comment on above: Order Comment: Speci men Type: BLOOD SPECIMENOrdering Facility: [facility] Address: [address] [place] [address] Performed By: #### 5 5454-3, 79255-4, 4536-7 ####[facility] [id number] [place] [address] [place] Neutrophils/100 WBC (Bld) 65.3 % Normal [facility] Comment on above: Order Comment: Speci men Type: BLOOD SPECIMENOrdering Facility: [facility] Address: [address] [place] [address] Performed By: #### 5 5454-3, 30638-2, 4536-7 ####[facility] [id number] [place] [address] [place] Nucleated RBC (Bld) [#/Vol] 10*3/uL Normal <0.01 [facility] Comment on above: Order Comment: Speci men Type: BLOOD SPECIMENOrdering Facility: [facility] Address: [address] [place] [address] Performed By: #### 5 5454-3, 30506-4, 4536-7 ####[facility] [id number] [place] [address] [place] Nucleated RBC/100 WBC (Bld) [Ratio] 0.0 /100 WBC Normal [facility] Comment on above: Order Comment: Speci men Type: BLOOD SPECIMENOrdering Facility: [facility] Address: [address] [place] [address] Performed By: #### 5 5454-3, 47463-2, 4537-7 ####[facility] [id number] [address] [address] [place] Platelet mean volume (Bld) [Entitic vol] 9.1 fL Normal 9.0-12.7 [facility] Comment on above: Order Comment: Speci men Type: BLOOD SPECIMENOrdering Facility: [facility] Address: [address] [place] [address] Performed By: #### 5 5454-3, 66245-9, 4537-7 ####[facility] [id number] [place] [address] [place] Platelets (Bld) [#/Vol] 333 10*3/uL Normal 150-400 [facility] Comment on above: Order Comment: Speci men Type: BLOOD SPECIMENOrdering Facility: [facility] Address: [address] [place] [address] Performed By: #### 5 5454-3, 22266-4, 4537-7 ####[facility] [id number] [place] [address] [place] RBC (Bld) [#/Vol] 5.17 10*6/uL Normal 4.20-6.00 [facility] Comment on above: Order Comment: Speci men Type: BLOOD SPECIMENOrdering Facility: [facility] Address: [address] [place] [address] Performed By: #### 5 5454-3, 72838-2, 4537-7 ####[facility] [id number] [place] [id number] [place] WBC (Bld) [#/Vol] 8.51 10*3/uL Normal 3.70-11.00 [facility] Comment on above: Order Comment: Speci men Type: BLOOD SPECIMENOrdering Facility: [facility] Address: [address] [place] [address] Performed By: #### 5 5454-3, 13446-1, 4537-7 ####[facility] [id number] [place] [address] [place] CK SerPl-cCncon 06-24-2024 CK [Catalytic activity/Vol] 43 U/L Low 51-298 [facility] Comment on above: Order Comment: Speci men Type: BLOOD SPECIMENOrdering Facility: [facility] Address: [address] [place] [address] Performed By: #### 1 1572-5, 215-6 ####[facility] [id number] [address] [place] CK [Catalytic activity/Vol] 49 U/L Low 51-298 [facility] Comment on above: Order Comment: Speci men Type: BLOOD SPECIMENOrdering Facility: [facility] Address: [address] [place] [address] Performed By: #### 3 016-3, 4498-2, 2157-6, 1987-5, 44527-1, 04016-7, 4485-9 ####[facility] [id number] [place] [address] [place] CRP SerPl-mCncon 06-24-2024 CRP [Mass/Vol] 1.2 mg/dL High <0.9 [facility] Comment on above: Order Comment: Speci men Type: BLOOD SPECIMEN [facility] Address: [address] [place] [address] Performed By: #### L [id number] #### [facility] CLIA [id number] [address] [place] [address] [place] Centromere Ab IF Ql (S)on Centromere Ab Qn (S) <0.2 Normal <1.0 [facility] Comment on above: Order Comment: Speci men Type: BLOOD SPECIMENOrdering Facility: [facility] Address: [address] [place] [address] Result Comment: Anti -centromere antibody is used as in aid in diagnosis of systemic sclerosis. Clinical correlation is required. Test Methodology: Multiplex flow immunoassay. Performed By: #### 5 1775-5, 19569-4, 86955-7, 61065-8, 20626-1, 11741-8, 17672-3, ANAIFR, 95993-2, 46022-8 ####[facility] [id number] [place] [address] [place] CENTROMERE AB QUAL Negative Normal Negative [facility] Comment on above: Order Comment: Speci men Type: BLOOD SPECIMENOrdering Facility: [facility] Address: [address] [place] [address] Performed By: #### 5 1775-5, 50196-7, 79797-5, 11933-2, 30253-1, 97365-1, 02017-0, ANAIFR, 54404-1, 62723-0 ####[facility] [id number] [place] [address] [place] Chromatin Ab Qnon 06-24-2024 CHROMATIN AB QUAL Negative Normal Negative [facility] Comment on above: Order Comment: Speci men Type: BLOOD SPECIMENOrdering Facility: [facility] Address: [address] [place] [address] Performed By: #### 5 1775-5, 74323-2, 49041-7, 75232-1, 55902-1, 73626-8, 85637-5, ANAIFR, 73410-9, 95397-1 ####[facility] [id number] [place] [address] [place] Chromatin Ab SerPl-aCncon Chromatin Ab Qn <0.2 Normal <1.0 [facility] Comment on above: Order Comment: Speci men Type: BLOOD SPECIMENOrdering Facility: [facility] Address: [address] [place] [address] Result Comment: Test Methodology: Multiplex flow immunoassay. Performed By: #### 5 1775-5, 28547-5, 53922-1, 69592-1, 22024-1, 68497-2, 16268-3, ANAIFR, 09886-4, 35536-6 ####[facility] [id number] [place] [address] [place] Comprehensive metabolic 2000 panelon 06-24-2024 Albumin [Mass/Vol] 4.5 g/dL Normal 3.9-4.9 [facility] Comment on above: Order Comment: Speci men Type: BLOOD SPECIMENOrdering Facility: [facility] Address: [address] [place] [address] Performed By: #### 3 016-3, 4498-2, 2157-01, 1987-12, , , 4485-04 ####[facility] [id number] [place] [address] [place] ALP [Catalytic activity/Vol] 83 U/L Normal 38-113 [facility] Comment on above: Order Comment: Speci men Type: BLOOD SPECIMENOrdering Facility: [facility] Address: [address] [place] [address] Performed By: #### 3 016-3, 4498-2, 2157-01, 1987-12, 50313-4, , 4485-04 ####[facility] [id number] [place] [address] [place] ALT [Catalytic activity/Vol] 27 U/L Normal 10-54 [facility] Comment on above: Order Comment: Speci men Type: BLOOD SPECIMENOrdering Facility: [facility] Address: [address] [place] [address] Performed By: #### 3 016-3, 4498-2, 2157-01, 1987-12, 52528-4, 40209-6, 4485-04 ####[facility] [id number] [address] [address] [place] Anion gap [Moles/Vol] 13 mmol/L Normal 8-15 [facility] Comment on above: Order Comment: Speci men Type: BLOOD SPECIMENOrdering Facility: [facility] Address: [address] [place] [address] Performed By: #### 3 016-3, 4498-2, 2157-01, 1987-12, , , 4485-04 ####[facility] [id number] [place] [id number] [place] AST [Catalytic activity/Vol] 21 U/L Normal 14-40 [facility] Comment on above: Order Comment: Speci men Type: BLOOD SPECIMENOrdering Facility: [facility] Address: [address] [place] [address] Performed By: #### 3 016-3, 4498-2, 2157-01, 1987-12, , , 4485-04 ####[facility] [id number] [place] [id number] [place] Bilirubin [Mass/Vol] 0.7 mg/dL Normal 0.2-1.3 [facility] Comment on above: Order Comment: Speci men Type: BLOOD SPECIMENOrdering Facility: [facility] Address: [address] [place], [place] [address] Performed By: #### 3 016-3, 4498-2, 2157-01, 1987-12, , , 4485-04 ####[facility] [id number] [place] [id number] [place] Calcium [Mass/Vol] 9.8 mg/dL Normal 8.5-10.2 [facility] Comment on above: Order Comment: Speci men Type: BLOOD SPECIMENOrdering Facility: [facility] Address: [address] [place] [address] Performed By: #### 3 016-3, 4498-2, 2157-01, 1987-12, , , 4485-04 ####[facility] [id number] [facility] [address] [address] [place] Chloride [Moles/Vol] 106 mmol/L Normal 98-107 [facility] Comment on above: Order Comment: Speci men Type: BLOOD SPECIMENOrdering Facility: [facility] Address: [address] [place] [address] Performed By: #### 3 016-3, 4498-2, 2157-01, 1987-12, , , 4485-04 ####[facility] [id number] [place] [id number] [place] CO2 [Moles/Vol] 23 mmol/L Normal 22-30 [facility] Comment on above: Order Comment: Speci men Type: BLOOD SPECIMENOrdering Facility: [facility] Address: [address] [place] [address] Performed By: #### 3 016-3, 4498-2, 2157-01, 1987-12, , , 4485-04 ####[facility] [id number] [facility] [place] [id number] [place] Creatinine [Mass/Vol] 0.61 mg/dL Low 0.73-1.22 [facility] Comment on above: Order Comment: Speci men Type: BLOOD SPECIMENOrdering Facility: [facility] Address: [address] [place], [place] [address] Performed By: #### 3 016-3, 4498-2, 2157-01, 1987-12, , , 4485-04 ####[facility] [id number] [facility] [place] [id number] [place] Creatinine and Glomerular filtration rate.predicted panel (S/P/Bld) 120 mL/min/1.73m??? Normal >=60 [facility] Comment on above: Order Comment: Deborah finley Type: BLOOD SPECIMENOrdering Facility: [facility] Address: [address] [place] [address] Result Comment: Alexa mated Glomerular Filtration Rate [...] By: #### 3 016-3, 4498-2, 2157-01, 1987-12, 75963-3, , 4485-04 ####[facility] [id number] [place] [address] [place] Glucose [Mass/Vol] 127 mg/dL High 74-99 [facility] Comment on above: Order Comment: Deborah finley Type: BLOOD SPECIMENOrdering Facility: [facility] Address: [address] [address] Result Comment: The [place] [employer] (ADA) provides guidance for cutoff [...] Standards of Medical Care in Diabetes 2016, [place] [employer]. Diabetes Care. 2016.39(Suppl 1). Performed By: #### 3 016-3, 4498-2, 2157-01, 1987-12, 61036-8, 40141-9, 4485-04 ####[facility] [id number] [address] [address] [place] Potassium [Moles/Vol] 3.8 mmol/L Normal 3.7-5.1 [facility] Comment on above: Order Comment: Speci men Type: BLOOD SPECIMENOrdering Facility: [facility] Address: [address] [place], [place] [address] Performed By: #### 3 016-3, 4498-2, 2157-01, 1987-12, , , 4485-04 ####[facility] [id number] [address] [address] [place] Protein [Mass/Vol] 7.5 g/dL Normal 6.3-8.0 [facility] Comment on above: Order Comment: Speci men Type: BLOOD SPECIMENOrdering Facility: [facility] Address: [address] [place] [address] Performed By: #### 3 016-3, 4498-2, 2157-01, 1987-12, , , 4485-04 ####[facility] [id number] [place] [id number] [place] Sodium [Moles/Vol] 142 mmol/L Normal 136-144 [facility] Comment on above: Order Comment: Speci men Type: BLOOD SPECIMENOrdering Facility: [facility] Address: [address] [place], [place] [address] Performed By: #### 3 016-3, 4498-2, 2157-01, 1987-12, , , 4485-04 ####[facility] [id number] [address] [address] [place] Urea nitrogen [Mass/Vol] 7 mg/dL Low 9-24 [facility] Comment on above: Order Comment: Speci men Type: BLOOD SPECIMENOrdering Facility: [facility] Address: [address] [place], [place] [address] Performed By: #### 3 016-3, 4498-2, 2157-6, 1987-5, 09926-2, 36879-9, 4485-9 ####[facility] [id number] [place] [address] [place] Cyclic citrullinated peptide IgG Qnon 06-24-2024 CCP ANTIBODY IGG QUALITATIVE Positive Abnormal Negative [facility] Comment on above: Order Comment: Speci men Type: BLOOD SPECIMEN [facility] Address: [address] [place] [address] Performed By: #### L [id number] #### [facility] CLIA [id number] [address] [place] [address] [place] DNA double strand Ab IA Qn ( S)on 06-24-2024 DNA ANTIBODY 81 IU/mL Normal <=200 [facility] Comment on above: Order Comment: Speci men Type: BLOOD SPECIMENOrdering Facility: [facility] Address: [address] [place] [address] Result Comment: Nega tive: <200 IU/mL Equivocal: 201-300 IU/mL Moderate Positive: 301-800 IU/mL Strong Positive: >801 IU/mL Performed By: #### 5 1775-5, 96664-8, 85598-9, 16727-7, 12383-7, 97530-4, 61521-7, ANAIFR, 36420-6, 63063-3 ####[facility] [id number] [address] [place] DNA ANTIBODY QUALITATIVE INTERPRETATION Negative Normal Negative [facility] Comment on above: Order Comment: Speci men Type: BLOOD SPECIMENOrdering Facility: [facility] Address: [address] [place] [address] Performed By: #### 5 1775-5, 77048-9, 31687-9, 74357-6, 87096-2, 26579-1, 56635-7, ANAIFR, 85375-2, 36127-6 ####[facility] [id number] [address] [address] [place] ED NOTEon 06-24-2024 ED NOTE HNO ID: [id number] Author: WINTER WILSON, FERNANDA Service: Emergency Medicine Author Type: Registered Nurse Type: ED Notes Filed: 06/24/2024 14:05 Note Text: Pt reports symptoms since December. Reports he brooks been having increasing numbness/weakness to all his extremities. Normal [facility] ED PROV NOTEon 06-24-2024 ED PROV NOTE HNO ID: [id number] Author: DI SOSA DO, DPM Service: Emergency [...] C2-3 and C3-4. He was seen in [facility] who obtained MRI brain and c-spine [...] recommended he seek a second opinion at [facility]'s rheumatology center. He was most recently seen by neurology in April who recommended repeating an EMG and to follow up in 3 months. 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 Of note, patient has been unable to [...] is intact (more content not included)... Normal [facility] ED Triage Noteon 06-24-2024 ED Triage Note HNO ID: [id number] Author: DAVE PAGAN MD Service: Emergency Medicine [...] EMG normal. Patient was recently seen at [facility] and then transferred to [facility] 03/30/2024 for progressive bilateral distal upper [...] Rate, Westergren SIGNATURE: Dave Pagan MD Normal [facility] VIJAY Jo1 Ab Ser-aCncon 2023 Ivanna-1 extractable nuclear Ab Qn (S) <0.2 Normal <1.0 [facility] Comment on above: Order Comment: Deborah finley Type: BLOOD SPECIMENOrdering Facility: [facility] Address: [address] [place] [address] Performed By: #### 5 1775-5, 25329-7, 80533-1, 83823-0, 84212-9, 33415-2, 11467-0, ANAIFR, 71013-3, 00446-4 ####[facility] [id number] [place] [address] [place] VIJAY BUILDING CERTIFIER Ab Ser-aCncon 2023 Ribonucleoprotein extractable nuclear Ab Qn (S) <0.2 Normal <1.0 [facility] Comment on above: Order Comment: Speci men Type: BLOOD SPECIMENOrdering Facility: [facility] Address: [address] [place] [address] Performed By: #### 5 1775-5, 08327-2, 08449-2, 09072-2, 50454-9, 97531-1, 72974-0, ANAIFR, 61630-0, 57152-1 ####[facility] [id number] [place] [address] [place] Ribonucleoprotein extractable nuclear Ab Qn (S) 0.5 AI Normal <1.0 [facility] Comment on above: Order Comment: Speci men Type: BLOOD SPECIMENOrdering Facility: [facility] Address: [address] [place] [address] Performed By: #### 5 1775-5, 87158-1, 72318-8, 31515-2, 41504-0, 11182-7, 97203-2, ANAIFR, 52362-8, 55246-6 ####[facility] [id number] [place] [address] [place] VIJAY SM IgG Ser-aCncon 2023 Kennedy extractable nuclear IgG Qn (S) <0.2 Normal <1.0 [facility] Comment on above: Order Comment: Speci men Type: BLOOD SPECIMENOrdering Facility: [facility] Address: [address] [place] [address] Performed By: #### 5 1775-5, 83253-4, 30003-3, 37754-2, 86754-4, 95306-4, 95657-2, ANAIFR, 12196-0, 29681-3 ####[facility] [id number] [place] [address] [place] VIJAY SS-A Ab Ser-aCncon 06-24 Sjogrens syndrome-A extractable nuclear Ab Qn (S) <0.2 Normal <1.0 [facility] Comment on above: Order Comment: Speci men Type: BLOOD SPECIMENOrdering Facility: [facility] Address: [address] [place] [address] Result Comment: Test Methodology: Multiplex flow immunoassay. Performed By: #### 5 1775-5, 64613-6, 08239-2, 38347-2, 84310-2, 53018-0, 59669-7, ANAIFR, 29548-1, 30231-3 ####[facility]IA [id number] [place] [address] [place] VIJAY SS-B Ab Ser-aCncon 06-24 Sjogrens syndrome-B extractable nuclear Ab Qn (S) <0.2 Normal <1.0 [facility] Comment on above: Order Comment: Speci men Type: BLOOD SPECIMENOrdering Facility: [facility] Address: [address] [place] [address] Result Comment: Anti -SSB (anti-La) antibody is used as an aid in diagnosis of a variety of systemic autoimmune diseases, especially for Sjogren's syndrome and systemic lupus erythematosus. Clinical correlation is required. Test Methodology: Multiplex flow immunoassay. Performed By: #### 5 1775-5, 46391-1, 95228-2, 39993-9, 74668-3, 08753-8, 43952-7, ANAIFR, 06512-9, 01196-0 ####[facility]IA [id number] [place] [address] [place] ESR Westergren method (Bld) [Velocity]on 06-24-2024 ESR (Bld) [Velocity] 8 mm/h Normal 0-15 [facility] Comment on above: Order Comment: Speci men Type: BLOOD SPECIMENOrdering Facility: [facility] Address: [address] [place] [address] Performed By: #### 5 5454-3, 12377-6, 4537-7 ####[facility] LABIA [id number] [place] [address] [place] HISTORY PHYSICALon HISTORY PHYSICAL HNO ID: [id number] Author: LELAND DANG MD Service: General Internal [...] AM Primary Care Physician: Cecy Hernandez CNP, [employer] C[employer]AGE: [facility] COVERAGE: Days: [phone], please page Estiven Palmer for patient issues. [...] the wall. 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 [...] he has looked for medical assistance. A forge shop supervisor recently informed him that he does not have rheumatoid arthritis, despite having been diagnosed with it decades ago. 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 He was seen in [facility] who obtained MRI brain and c-spine [...] recommended he seek a second opinion at [facility]'s rheumatology center. 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 Social history: Patient has been unable to [...] file. No (more content not included)... Normal [facility] HbA1c (Bld)on 06-24-2024 Average glucose Estimated from glycated hemoglobin (Bld) [Mass/Vol] 134 mg/dL Normal [facility] Comment on above: Order Comment: Deborah finley Type: BLOOD SPECIMENOrdering Facility: [facility] Address: [address] [place] [address] Result Comment: eAG: (Estimated average glucose) is a calculated value from HgbA1c and is route sales representative of the average blood glucose level in the last 2-3 month period. Performed By: #### 5 5454-3, 88942-1, 4537-7 ####[facility] [id number] [place] [address] [place] HbA1c (Bld) [Mass fraction] 6.3 % High 4.3-5.6 [facility] Comment on above: Order Comment: Joeli malia Type: BLOOD SPECIMENOrdering Facility: [facility] Address: [address] [place] [address] Result Comment: Ammaciej ican Diabetes Association guidelines indicate that patients with HgbA1c in the range 5.7-6.4% are at increased risk for development of diabetes, and intervention by lifestyle modification may be beneficial. HgbA1c greater or equal to 6.5% is considered diagnostic of diabetes. Performed By: #### 5 5454-3, 11640-5, 4537-7 ####[facility] [id number] [address] [address] [place] Ivanna-1 extractable nuclear Ab Qn (S)on 06-24-2024 IVANNA 1 ANTIBODY QUAL Negative Normal Negative [facility] Comment on above: Order Comment: Speci men Type: BLOOD SPECIMENOrdering Facility: [facility] Address: [address] [place] [address] Result Comment: Anti -IVANNA-1 antibody is used as an aid in diagnosis of polymyositis and dermatomyositis especially with pulmonary involvement. A negative result cannot rule out polymyositis or dermatomyositis. Clinical correlation is required. Test Methodology: Multiplex flow immunoassay. Performed By: #### 5 1775-5, 76593-6, 43256-4, 71217-5, 95860-1, 84077-8, 94400-8, ANAIFR, 30738-3, 86732-6 ####[facility] [id number] [address] [address] [place] Magnesium SerPl-mCncon 06-24 Magnesium [Mass/Vol] 1.8 mg/dL Normal 1.7-2.3 [facility] Comment on above: Order Comment: Speci men Type: BLOOD SPECIMENOrdering Facility: [facility] Address: [address] [place], [place] [address] Performed By: #### 3 016-3, 4498-2, 2157-6, 1987-5, 27666-8, 18535-8, 4485-9 ####[facility] [id number] [address] [address] [place] NURSING PROGon 06-24-2024 NURSING PROG HNO ID: [id number] Author: LINDY DUCKWORTH RN Service: ? Author Type: Registered Nurse Type: Nursing Progress Note Filed: 06/24/2024 19:04 Note Text: Transfer Note: PATIENT NAME: Bhumika Umana Patient Location: [place] [address]/[facility] Room: [place] [address] Patient transferred into room/unit [facility]- in stable condition. Actions taken: No futher actions taken at this time. Will continue to monitor and check with patient. Normal [facility] Reagin and Treponema pallidu m IgG and IgM [Interp]on 06-24-2024 T. pallidum IgG+IgM IA Ql (S) Non-Reactive Normal Nonreactive [facility] Comment on above: Order Comment: Speci men Type: BLOOD SPECIMEN [facility] Address: [address] [place] [address] Performed By: #### L [id number] #### [facility] CLIA [id number] [address] [place] [address] [place] Reagin+T pallidum IgG+IgM Se rPl-Impon 06-24-2024 Reagin and Treponema pallidum IgG and IgM [Interp] Cannot exclude recent Treponemal infection if specimen collected within 7-10 days after appearance of suspect lesions or 2-3 weeks after an exposure. Clinical correlation is required. Normal [facility] Comment on above: Order Comment: Deborah finley Type: BLOOD SPECIMEN [facility] Address: [address] [place] [address] Performed By: #### L [id number] #### [facility] CLIA [id number] [address] [place] [address] [place] Rheumatoid fact SerPl-aCncon 06-24-2024 Rheumatoid factor Qn 17 [IU]/mL High <16 [facility] Comment on above: Order Comment: Joeli malia Type: BLOOD SPECIMENOrdering Facility: [facility] Address: [address] [place] [address] Performed By: #### 1 1572-5, 2157-6 ####[facility] [id number] [place] [address] [place] Ribonucleoprotein extractabl e nuclear Ab Qn (S)on 06-24-2024 ANTI-BUILDING CERTIFIER QUAL Negative Normal Negative [facility] Comment on above: Order Comment: Speci men Type: BLOOD SPECIMENOrdering Facility: [facility] Address: [address] [place] [address] Performed By: #### 5 1775-5, 70236-9, 85561-0, 96175-0, 56497-6, 17586-4, 64344-9, ANAIFR, 38599-5, 42121-0 ####[facility] [id number] [place] [address] [place] RIBOSOMAL BUILDING CERTIFIER QUAL Negative Normal Negative [facility] Comment on above: Order Comment: Speci men Type: BLOOD SPECIMENOrdering Facility: [facility] Address: [address] [place] [address] Result Comment: Anti -Ribosomal RNA (Ribosomal P) antibody is used as an aid in diagnosis of systemic autoimmune diseases especially systemic lupus erythematosus and mixed connective tissue disease. Cross-reactivity with Anti-kennedy antibody is not uncommon. Clinical correlation is required. Test Methodology: Multiplex flow immunoassay. Performed By: #### 5 1775-5, 20935-4, 15967-4, 54752-9, 00457-2, 45480-0, 55423-0, ANAIFR, 45007-0, 58183-5 ####[facility] [id number] [place] [id number] [place] SCL-70 extractable nuclear I gG IA Qn (S)on 06-24-2024 SCLERODERMA AB QUAL Negative Normal Negative [facility] Comment on above: Order Comment: Speci men Type: BLOOD SPECIMENOrdering Facility: [facility] Address: [address] [place] [address] Performed By: #### 5 1775-5, 17862-9, 26062-2, 80533-9, 03218-9, 39384-6, 78739-9, ANAIFR, 80272-2, 31346-8 ####[facility] [id number] [place] [address] [place] SCLERODERMA IGG AB <0.2 Normal <1.0 [facility] Comment on above: Order Comment: Speci men Type: BLOOD SPECIMENOrdering Facility: [facility] Address: [address] [place] [address] Result Comment: Scl- 70/Scleroderma antibody test is used as an aid in diagnosis of systemic sclerosis especially the diffuse cutaneous form. A negative result cannot rule out systemic sclerosis. The final interpretation should consider clinical picture and other test results such as anti-centromere antibody. Test Methodology: Multiplex flow immunoassay. Performed By: #### 5 1775-5, 41869-7, 51528-3, 21707-8, 05120-7, 09920-4, 04412-2, ANAIFR, 64011-5, 91877-9 ####[facility] [id number] [place] [address] [place] Sjogrens syndrome-A extracta ble nuclear Ab Qn (S)on 06-24-2024 SSA ANTIBODY QUAL Negative Normal Negative [facility] Comment on above: Order Comment: Speci men Type: BLOOD SPECIMENOrdering Facility: [facility] Address: [address] [place] [address] Performed By: #### 5 1775-5, 87539-9, 01808-3, 21987-4, 72184-0, 52188-3, 99996-6, ANAIFR, 72788-4, 76897-8 ####[facility] [id number] [place] [address] [place] Sjogrens syndrome-B extracta ble nuclear Ab Qn (S)on 06-24-2024 SSB ANTIBODY QUAL Negative Normal Negative [facility] Comment on above: Order Comment: Speci men Type: BLOOD SPECIMENOrdering Facility: [facility] Address: [address] [place] [address] Performed By: #### 5 1775-5, 64415-5, 39881-9, 56980-4, 67646-4, 61415-9, 21513-2, ANAIFR, 26578-1, 10166-7 ####[facility] [id number] [place] [id number] [place] Kennedy extractable nuclear Ig G Qn (S)on 06-24-2024 SM ANTIBODY QUAL Negative Normal Negative [facility] Comment on above: Order Comment: Speci men Type: BLOOD SPECIMENOrdering Facility: [facility] Address: [address] [place] [address] Result Comment: Anti -Sm (Kennedy) antibody is used as an aid in diagnosis of systemic lupus erythematosus and its presence is associated with renal disease. A negative result cannot rule out systemic lupus erythematosus. Clinical correlation is required. Test Methodology: Multiplex flow immunoassay. Performed By: #### 5 1775-5, 06066-9, 75378-3, 71247-6, 35293-2, 88900-8, 90759-1, ANAIFR, 83421-0, 55536-3 ####[facility] [id number] [place] [id number] [place] TSH SerPl-aCncon 06-24-2024 TSH Qn 1.040 m[IU]/L Normal 0.270-4.200 [facility] Comment on above: Order Comment: Joeli malia Type: BLOOD SPECIMENOrdering Facility: [facility] Address: [address] [place] [address] Performed By: #### 3 016-3, 4498-2, 2157-6, 1987-5, 42033-8, 27886-7, 4485-9 ####[facility] [id number] [place] [id number] [place] VITAMIN B12 W/REFLEXon 06-24 Cobalamin (Vitamin B12) [Mass/Vol] 570 pg/mL Normal 232-1245 [facility] Comment on above: Order Comment: Speci men Type: BLOOD SPECIMEN [facility] Address: [address] [place] [address] Performed By: #### L [id number] #### [facility] CLIA [id number] [address] [place] [address] [place] cCP IgG SerPl-aCncon 024 Cyclic citrullinated peptide IgG Qn >250 High <20 [facility] Comment on above: Order Comment: Speci men Type: BLOOD SPECIMEN [facility] Address: [address] [place] [address] Performed By: #### L [id number] #### [facility] CLIA [id number] [address] [place] [address] [place] CBC AND AUTO DIFFon 06-12-20 24 ABSOLUTE BASOPHIL 0.0 X10E9/L Normal 0.0-0.2 [facility] Comment on above: Performed By: #### C POOL, 46740-1, CMP, 1987-12, 4485-04, 449-2, ENAP #### [facility] ([id number]) [address], [address] [place] [address] ABSOLUTE NEUTROPHIL 5.5 X10E9/L Normal 1.5-6.6 [facility] Comment on above: Performed By: #### C POOL, 30221-2, CMP, 1987-12, 4485-04, 4498-2, ENAP #### [facility] ([id number]) [address], [address] [place] [address] Basophils/100 WBC (Bld) 0.4 % Normal [facility] Comment on above: Performed By: #### C POOL, 11293-1, CMP, 1987-12, 4485-04, 4492, ENAP #### [facility] ([id number]) [address], [address] [place] [address] Eosinophils (Bld) [#/Vol] 0.2 10*3/uL Normal 0.0-0.4 [facility] Comment on above: Performed By: #### C POOL, 13148-4, CMP, 1987-12, 4485-04, 449-2, ENAP #### [facility] ([id number]) [address], [address] [place] [address] Eosinophils/100 WBC (Bld) 2.8 % Normal [facility] Comment on above: Performed By: #### C POOL, 04519-2, CMP, 1987-12, 4485-04, 449-2, ENAP #### [facility] ([id number]) [address], [facility] [address] [place] [address] Erythrocyte distribution width (RBC) [Ratio] 13.2 % Normal 11.5-15.0 [facility] Comment on above: Performed By: #### C POOL, 82294-4, [facility], 1987-12, 4485-04, 2, ENAP #### [facility] ([id number]) [address], [facility] [address] [place] [address] Hematocrit (Bld) [Volume fraction] 45.8 % Normal 39-49 [facility] Comment on above: Performed By: #### C POOL, 21285-1, CMP, 1987-12, 4485-04, 449-2, ENAP #### [facility] ([id number]) [address] [address] [place] [address] Hemoglobin (Bld) [Mass/Vol] 14.8 g/dL Normal 13.0-17.0 [facility] Comment on above: Performed By: #### C POOL, 43671-0, CMP, 1987-12, 4485-04, 449-2, ENAP #### [facility] ([id number]) [address] [address] Lymphocytes (Bld) [#/Vol] 1.7 10*3/uL Normal 1.0-3.5 [facility] Comment on above: Performed By: #### C POOL, 04164-8, CMP, 1987-12, 4485-04, 449-2, ENAP #### [facility] ([id number]) [address], [address] [place] [address] Lymphocytes/100 WBC (Bld) 20.7 % Normal [facility] Comment on above: Performed By: #### C POOL, 94962-0, CMP, 1987-12, 4485-04, 4497-2, ENAP #### [facility] ([id number]) [address], [address] [place] [address] MCH (RBC) [Entitic mass] 28.8 pg Normal 27-34 [facility] Comment on above: Performed By: #### C POOL, 06457-4, CMP, 1987-12, 4485-04, 2, ENAP #### [facility] ([id number]) [address], [address] [place] [address] MCHC (RBC) [Mass/Vol] 32.4 g/dL Normal 32-36 [facility] Comment on above: Performed By: #### C POOL, 06082-5, CMP, 1987-12, 4485-04, 4492, ENAP #### [facility] ([id number]) [address], [address] [place] [address] MCV (RBC) [Entitic vol] 89 fL Normal 80-100 [facility] Comment on above: Performed By: #### C POOL, 43375-7, CMP, 1987-12, 4485-04, 4497-2, ENAP #### [facility] ([id number]) [address] [address] [place] [address] Monocytes (Bld) [#/Vol] 0.6 10*3/uL Normal 0-0.9 [facility] Comment on above: Performed By: #### Luke LANZA, 57670-7, CMP, 1987-12, 4485-04, 4498-2, ENAP #### [facility] ([id number]) [address], [address] [place] [address] Monocytes/100 WBC (Bld) 7.4 % Normal [facility] Comment on above: Performed By: #### C BCA, 87761-8, CMP, 1987-12, 4485-04, 4498-2, ENAP #### [facility] ([id number]) [address], [address] [place] [address] Neutrophils/100 WBC (Bld) 68.7 % Normal [facility] Comment on above: Performed By: #### C BCA, 47712-6, CMP, 1987-12, 4485-04, 4498-2, ENAP #### [facility] ([id number]) [address], [address] [place] [address] Platelet mean volume (Bld) [Entitic vol] 7.4 fL Normal 7-12 [facility] Comment on above: Performed By: #### C BCA, 51514-1, CMP, 1987-12, 4485-04, 4498-2, ENAP #### [facility] ([id number]) [address], [address] [place] [address] Platelets (Bld) [#/Vol] 314 10*3/uL Normal 150-450 [facility] Comment on above: Performed By: #### C BCA, 24613-2, CMP, 1987-12, 4485-04, 4498-2, ENAP #### [facility] ([id number]) [address], [address] [place] [address] RBC COUNT 5.14 X10E12/L Normal 4.10-5.70 [facility] Comment on above: Performed By: #### C BCA, 77235-8, CMP, 1987-12, 4485-04, 4498-2, ENAP #### [facility] ([id number]) [address], [address] [place] [address] WBC (Bld) [#/Vol] 8.1 10*3/uL Normal 4.0-11.0 [facility] Comment on above: Performed By: #### C BCA, 25931-2, CMP, 1987-12, 4484-9, 4498-2, ENAP #### [facility] ([id number]) [address], [address] [place] [address] CK [Catalytic activity/Vol]o n 06-12-2024 CPK 54 U/L Normal 24-195 [facility] Comment on above: Performed By: #### C BCA, 09454-0, CMP, 1987-12, 4484-9, 4498-2, ENAP #### [facility] ([id number]) [address], [address] [place] [address] COMPREHENSIVE METABOLIC PANE Rayshawn 06-12-2024 Albumin [Mass/Vol] 4.4 g/dL Normal 3.2-5.3 [facility] Comment on above: Performed By: #### C BCA, 74626-7, CMP, 1987-12, 9, 4498-2, ENAP #### [facility] ([id number]) [address], [address] [place] [address] ALP [Catalytic activity/Vol] 71 U/L Normal 39-130 [facility] Comment on above: Performed By: #### C BCA, 99110-9, CMP, 1987-12, 4484-9, 4498-2, ENAP #### [facility] ([id number]) [address], [address] [place] [address] ALT [Catalytic activity/Vol] 21 U/L Normal 0-40 [facility] Comment on above: Performed By: #### C BCA, 07814-2, CMP, 1987-12, 9, 4498-2, ENAP #### [facility] ([id number]) [address], [address] [place] [address] Anion gap [Moles/Vol] 10 mmol/L Normal 5-15 [facility] Comment on above: Performed By: #### C BCA, 21720-2, CMP, 1987-12, 4485-04, 4498-2, ENAP #### [facility] ([id number]) [address], [address] [place] [address] AST [Catalytic activity/Vol] 22 U/L Normal 0-41 [facility] Comment on above: Performed By: #### C BCA, 44395-0, CMP, 1987-12, 4485-04, 4498-2, ENAP #### [facility] ([id number]) [address], [address] [place] [address] Bilirubin [Mass/Vol] 1.0 mg/dL Normal 0.3-1.2 [facility] Comment on above: Performed By: #### C BCA, 14656-4, CMP, 1987-12, 4485-04, 4498-2, ENAP #### [facility] ([id number]) [address], [address] [place] [address] Calcium [Mass/Vol] 9.2 mg/dL Normal 8.5-10.5 [facility] Comment on above: Performed By: #### C BCA, 06191-8, CMP, 1987-12, 4485-04, 4498-2, ENAP #### [facility] ([id number]) [address], [address] [place] [address] Chloride [Moles/Vol] 102 mmol/L Normal 98-109 [facility] Comment on above: Performed By: #### C BCA, 47978-1, CMP, 1987-12, 4485-04, 449-2, ENAP #### [facility] ([id number]) [address], [address] [place] [address] CO2 [Moles/Vol] 25 mmol/L Normal 22-32 [facility] Comment on above: Performed By: #### C BCA, 02559-1, CMP, 1987-12, 4485-04, 449-2, ENAP #### [facility] ([id number]) [address], [address] [place] [address] Creatinine [Mass/Vol] 0.68 mg/dL Normal 0.60-1.30 [facility] Comment on above: Result Comment: METH OD TRACEABLE TO IDMS STANDARD Performed By: #### C BCA, 34423-2, CMP, 1987-12, 4485-04, 449-2, ENAP #### [facility] ([id number]) [address], [address] [place] [address] eGFR (CKD-EPI) NON-RACE DEPENDENT >90 Normal >59 [facility] Comment on above: Result Comment: Reported eGFR is based on the CKD-EPI 2020 equation that does not use a race coefficient. Performed By: #### C BCA, 49063-5, [facility], 1987-12, 4485-04, 449-2, ENAP #### [facility] ([id number]) [address], [address] [place] [address] Glucose [Mass/Vol] 118 mg/dL High 65-99 [facility] Comment on above: Performed By: #### C BCA, 83862-0, CMP, 1987-12, 4485-04, 449-2, ENAP #### [facility] ([id number]) [address], [address] [place] [address] Potassium [Moles/Vol] 3.8 mmol/L Normal 3.5-5.0 [facility] Comment on above: Performed By: #### C BCA, 45646-4, CMP, 1987-12, 4485-04, 4497-2, ENAP #### [facility] ([id number]) [address], [address] [place] [address] Protein [Mass/Vol] 7.5 g/dL Normal 6.0-8.0 [facility] Comment on above: Performed By: #### C BCA, 68240-4, CMP, 1987-12, 4484-9, 4498-2, ENAP #### [facility] ([id number]) [address], [address] [place] [address] Sodium [Moles/Vol] 137 mmol/L Normal 134-146 [facility] Comment on above: Performed By: #### C BCA, 36680-8, CMP, 1987-12, 4485-04, 4498-2, ENAP #### [facility] ([id number]) [address], [address] [place] [address] Urea nitrogen [Mass/Vol] 13 mg/dL Normal 5-23 [facility] Comment on above: Performed By: #### C BCA, 61356-0, CMP, 1987-12, 4485-04, 4498-2, ENAP #### [facility] ([id number]) [address], [address] [place] [address] CRP [Mass/Vol]on 06-12-2024 C REACTIVE PROTEIN 0.7 mg/dL Normal 0.000-0.744 [facility] Comment on above: Performed By: #### C BCA, 18321-1, CMP, 1987-12, 4485-04, 4498-2, ENAP #### [facility] ([id number]) [address], [address] [place] [address] ESR Photometric method (Bld) [Velocity]on 06-12-2024 ESR, ERYTHROCYTE SEDIMENTATION RATE 15 mm/h Normal 0-15 [facility] Comment on above: Performed By: #### C BCA, 25590-4, CMP, 1987-12, 4485-04, 4498-2, ENAP #### [facility] ([id number]) [address], [address] [place] [address] LDH [Catalytic activity/Vol] on 06-12-2024 LDH 181 U/L Normal 100-235 [facility] Comment on above: Performed By: #### C BCA, 05695-5, CMP, 1988-5, 4485-9, 4498-2, ENAP #### [facility] ([id number]) [address], [address] [place] [address] Laboratory comment Bj (Repo rt)on 06-12-2024 UNLISTED LAB TEST Sent to reference lab Normal [facility] Comment on above: Performed By: #### G O #### [facility] ([id number]) [address] [facility] GENERIC ORDERon TEST NAME HMGCR 3 HYDROXY 3 METHYLGLUTARYL COENZYME A HMG COA REDUCTASE SERUM Normal [facility] Comment on above: Performed By: #### G O #### [facility] ([id number]) [address] [facility], TEST RESULT SEE COMMENTS 11:50 PM Normal [facility] Comment on above: Result Comment: NOTE Test Result Flag Unit RefValue -- HMG-CoA Reductase Ab, S <20.0 CU <20.0 Test Performed by: [address] [address] Corporate Health Consultant: Hussein Khan Ph.D.; CLIA# [id number] Performed By: #### G O #### [facility] ([id number]) [address] [facility], TSH Qnon 06-12-2024 TSH 1.23 uIU/mL Normal 0.49-4.67 [facility] Comment on above: Performed By: #### C POOL, 47438-8, [facility], 1987-12, 4485-04, 449-2, ENAP #### [facility] ([id number]) [address], [address] [place] [address] VITAMIN B12on 06-12-2024 Cobalamin (Vitamin B12) [Mass/Vol] 335 pg/mL Normal 180-914 [facility] Comment on above: Performed By: #### C POOL, 60968-2, [facility], 1987-12, 4485-04, 4492, ENAP #### [facility] ([id number]) [address], [address] [place] [address] Vitamin D+Metabolites [Mass/ Vol]on 06-12-2024 VITAMIN D 25 HYD TOT 12.5 ng/mL Low 30-100 [facility] Comment on above: Result Comment: Vitamin D status 25 [place] Vitamin D Deficiency <20 ng/mL Insufficiency 20-29 ng/mL Sufficiency 30-100 ng/mL Toxicity >100 ng/mL NOTE: A pediatric reference range has not been established by the fire support man of this kit. The [place] [employer] recommends a Vitamin D level of = or >20ng/mL in infants and children. Performed By: #### C POOL, 85610-0, [facility], 1987-12, 4485-04, 4498-2, ENAP #### [facility] ([id number]) [address], [address] [place] [address] US SOFT TISS HEAD NECKon US SOFT [...] Berg MD on 06/10/2024 12:07 PM Normal [facility] MLR HEMOGLOBIN A1Con 024 Glucose [Mass/Vol] 134 mg/dL [facility] HbA1c (Bld) [Mass fraction] 6.3 % High 4.5 - 6.2 % [facility] Comment on above: ADA RECOMMENDED LIMI T 4.0 - 6.0 ADA THERAPEUTIC TARGET < 7.0 ACTION SUGGESTED > 7.0 Interpretation and review of laboratory results Abnormal [facility] XR OSSEOUS SURVEY LIMITEDon 04-20-2024 XR [...] King MD on 04/20/2024 7:58 AM Normal [facility] CBC AND AUTO DIFFon 04-17-20 ABSOLUTE BASOPHIL 0.0 X10E9/L Normal 0.0-0.2 [facility] Comment on above: Performed By: #### C BCA, 39191-9, CMP, 1987-12, 4485-04, 449-2, ENAP #### [facility] ([id number]) [address], [address] [place] [address] ABSOLUTE NEUTROPHIL 4.9 X10E9/L Normal 1.5-6.6 [facility] Comment on above: Performed By: #### C BCA, 97837-8, CMP, 1987-12, 4485-04, 449-2, ENAP #### [facility] ([id number]) [address], [address] [place] [address] Basophils/100 WBC (Bld) 0.3 % Normal [facility] Comment on above: Performed By: #### C POOL, 82079-3, CMP, 1987-12, 4485-04, 2, ENAP #### [facility] ([id number]) [address], [address] [place] [address] Eosinophils (Bld) [#/Vol] 0.2 10*3/uL Normal 0.0-0.4 [facility] Comment on above: Performed By: #### C POOL, 76504-3, CMP, 1987-12, 4485-04, 4497-2, ENAP #### [facility] ([id number]) [address], [address] [place] [address] Eosinophils/100 WBC (Bld) 2.5 % Normal [facility] Comment on above: Performed By: #### C BCA, 25260-0, CMP, 1987-12, 4485-04, 2, ENAP #### [facility] ([id number]) [address], [address] [place] [address] Erythrocyte distribution width (RBC) [Ratio] 13.8 % Normal 11.5-15.0 [facility] Comment on above: Performed By: #### C BCA, 71826-9, CMP, 1987-12, 4485-04, 4498-2, ENAP #### [facility] ([id number]) [address], [facility] [address] [place] [address] Hematocrit (Bld) [Volume fraction] 43.2 % Normal 39-49 [facility] Comment on above: Performed By: #### C BCA, 44407-0, CMP, 1987-12, 4485-04, 449-2, ENAP #### [facility] ([id number]) [address], [address] [address] Hemoglobin (Bld) [Mass/Vol] 14.8 g/dL Normal 13.0-17.0 [facility] Comment on above: Performed By: #### C POOL, 90114-1, CMP, 1987-12, 4485-04, 449-2, ENAP #### [facility] ([id number]) [address], [address] [address] Lymphocytes (Bld) [#/Vol] 2.7 10*3/uL Normal 1.0-3.5 [facility] Comment on above: Performed By: #### C BCA, 51623-2, CMP, 1987-12, 4485-04, 449-2, ENAP #### [facility] ([id number]) [address] [address] Lymphocytes/100 WBC (Bld) 31.7 % Normal [facility] Comment on above: Performed By: #### C BCA, 40045-9, CMP, 1987-12, 4485-04, 4497-2, ENAP #### [facility] ([id number]) [address] [address] MCH (RBC) [Entitic mass] 30.3 pg Normal 27-34 [facility] Comment on above: Performed By: #### C BCA, 44942-9, CMP, 1987-12, 4485-04, 4497-2, ENAP #### [facility] ([id number]) [address], [address] [place] [address] MCHC (RBC) [Mass/Vol] 34.3 g/dL Normal 32-36 [facility] Comment on above: Performed By: #### C BCA, 33933-1, CMP, 1987-12, 4485-04, 4497-2, ENAP #### [facility] ([id number]) [address], [address] [place] [address] MCV (RBC) [Entitic vol] 89 fL Normal 80-100 [facility] Comment on above: Performed By: #### C POOL, 69833-5, CMP, 1987-12, 4485-04, 4497-2, ENAP #### [facility] ([id number]) [address], [address] [place] [address] Monocytes (Bld) [#/Vol] 0.6 10*3/uL Normal 0-0.9 [facility] Comment on above: Performed By: #### C POOL, 60710-7, CMP, 1987-12, 4485-04, 2, ENAP #### [facility] ([id number]) [address], [address] [place] [address] Monocytes/100 WBC (Bld) 7.5 % Normal [facility] Comment on above: Performed By: #### C BCA, 85752-0, CMP, 1987-12, 4485-04, 2, ENAP #### [facility] ([id number]) [address], [address] [place] [address] Neutrophils/100 WBC (Bld) 58.0 % Normal [facility] Comment on above: Performed By: #### C BCA, 96312-4, CMP, 1987-12, 4485-04, 2, ENAP #### [facility] ([id number]) [address], [address] [place] [address] Platelet mean volume (Bld) [Entitic vol] 7.7 fL Normal 7-12 [facility] Comment on above: Performed By: #### C BCA, 82055-4, CMP, 1987-12, 4484-9, 4498-2, ENAP #### [facility] ([id number]) [address], [address] [place] [address] Platelets (Bld) [#/Vol] 330 10*3/uL Normal 150-450 [facility] Comment on above: Performed By: #### C BCA, 67411-2, CMP, 1987-12, 4484-, 4498-2, ENAP #### [facility] ([id number]) [address], [address] [place] [address] RBC COUNT 4.87 X10E12/L Normal 4.10-5.70 [facility] Comment on above: Performed By: #### C BCA, 26844-4, CMP, 1987-12, 4485-04, 4498-2, ENAP #### [facility] ([id number]) [address], [address] [place] [address] WBC (Bld) [#/Vol] 8.4 10*3/uL Normal 4.0-11.0 [facility] Comment on above: Performed By: #### C BCA, 89388-6, CMP, 1987-12, 4485-04, 4498-2, ENAP #### [facility] ([id number]) [address], [address] [place] [address] COMPREHENSIVE METABOLIC PANE Rayshawn 04-17-2024 Albumin [Mass/Vol] 4.4 g/dL Normal 3.2-5.3 [facility] Comment on above: Performed By: #### C BCA, 69524-6, CMP, 1987-12, 4485-04, 4498-2, ENAP #### [facility] ([id number]) [address], [address] [place] [address] ALP [Catalytic activity/Vol] 71 U/L Normal 39-130 [facility] Comment on above: Performed By: #### C BCA, 82409-9, CMP, 1987-12, 9, 4498-2, ENAP #### [facility] ([id number]) [address], [address] [place] [address] ALT [Catalytic activity/Vol] 25 U/L Normal 0-40 [facility] Comment on above: Performed By: #### C BCA, 48527-5, CMP, 1987-12, 4485-04, 4498-2, ENAP #### [facility] ([id number]) [address], [address] [place] [address] Anion gap [Moles/Vol] 12 mmol/L Normal 5-15 [facility] Comment on above: Performed By: #### C BCA, 45669-0, CMP, 1987-12, 4485-04, 4498-2, ENAP #### [facility] ([id number]) [address], [address] [place] [address] AST [Catalytic activity/Vol] 17 U/L Normal 0-41 [facility] Comment on above: Performed By: #### C BCA, 66761-8, CMP, 1987-12, 4485-04, 4498-2, ENAP #### [facility] ([id number]) [address], [address] [place] [address] Bilirubin [Mass/Vol] 0.8 mg/dL Normal 0.3-1.2 [facility] Comment on above: Performed By: #### C BCA, 36953-5, CMP, 1987-12, 4485-04, 4498-2, ENAP #### [facility] ([id number]) [address], [address] [place] [address] Calcium [Mass/Vol] 9.5 mg/dL Normal 8.5-10.5 [facility] Comment on above: Performed By: #### C BCA, 38586-4, CMP, 1987-12, 4485-04, 4498-2, ENAP #### [facility] ([id number]) [address], [address] [place] [address] Chloride [Moles/Vol] 102 mmol/L Normal 98-109 [facility] Comment on above: Performed By: #### C BCA, 58627-1, CMP, 1987-12, 4485-04, 449-2, ENAP #### [facility] ([id number]) [address], [address] [place] [address] CO2 [Moles/Vol] 25 mmol/L Normal 22-32 [facility] Comment on above: Performed By: #### C BCA, 59883-2, CMP, 1987-12, 4485-04, 4498-2, ENAP #### [facility] ([id number]) [address], [facility] [address] [place] [address] Creatinine [Mass/Vol] 0.63 mg/dL Normal 0.60-1.30 [facility] Comment on above: Result Comment: METH OD TRACEABLE TO IDMS STANDARD Performed By: #### C BCA, 80062-1, CMP, 1987-12, 4485-04, 4498-2, ENAP #### [facility] ([id number]) [address], [facility] [address] [place] [address] eGFR (CKD-EPI) NON-RACE DEPENDENT >90 Normal >59 [facility] Comment on above: Result Comment: Reported eGFR is based on the CKD-EPI 2020 equation that does not use a race coefficient. Performed By: #### C BCA, 79970-3, CMP, 1987-12, 4485-04, 449-2, ENAP #### [facility] ([id number]) [address], [address] [place] [address] Glucose [Mass/Vol] 111 mg/dL High 65-99 [facility] Comment on above: Performed By: #### C BCA, 97616-5, CMP, 1987-12, 4485-04, 4498-2, ENAP #### [facility] ([id number]) [address], [address] [place] [address] Potassium [Moles/Vol] 3.8 mmol/L Normal 3.5-5.0 [facility] Comment on above: Performed By: #### C BCA, 61829-0, CMP, 1987-12, 4485-04, 4498-2, ENAP #### [facility] ([id number]) [address], [address] [place] [address] Protein [Mass/Vol] 7.2 g/dL Normal 6.0-8.0 [facility] Comment on above: Performed By: #### C BCA, 54701-4, CMP, 1987-12, 4485-04, 4498-2, ENAP #### [facility] ([id number]) [address], [address] [place] [address] Sodium [Moles/Vol] 139 mmol/L Normal 134-146 [facility] Comment on above: Performed By: #### C BCA, 81906-1, CMP, 1987-12, 4485-04, 4498-2, ENAP #### [facility] ([id number]) [address], [address] [place] [address] Urea nitrogen [Mass/Vol] 12 mg/dL Normal 5-23 [facility] Comment on above: Performed By: #### C BCA, 62027-5, CMP, 1987-12, 4485-04, 4498-2, ENAP #### [facility] ([id number]) [address], [address] [place] [address] CRP [Mass/Vol]on 04-17-2024 C REACTIVE PROTEIN 0.8 mg/dL High 0.000-0.744 [facility] Comment on above: Performed By: #### C BCA, 11389-3, CMP, 1987-12, 4484-9, 4498-2, ENAP #### [facility] ([id number]) [address], [address] [place] [address] Complement C3 [Mass/Vol]on 0 04-17-2024 COMPLEMENT C3 153 mg/dL Normal 86-184 [facility] Comment on above: Performed By: #### C BCA, 22452-9, CMP, 1987-12, 4485-04, 4498-2, ENAP #### [facility] ([id number]) [address], [address] [place] [address] Complement C4 [Mass/Vol]on 0 04-17-2024 COMPLEMENT C4 33 mg/dL Normal 16-47 [facility] Comment on above: Performed By: #### C BCA, 11745-6, CMP, 1987-12, 4485-04, 4498-2, ENAP #### [facility] ([id number]) [address], [address] [place] [address] VIJAY PANELon 04-17-2024 ANTI-KENNEDY AB IGG <0.2 Normal <1.0 [facility] Comment on above: Performed By: #### C BCA, 03106-2, CMP, 1987-12, 4485-04, 4498-2, ENAP #### [facility] ([id number]) [address], [facility] [address] [place] [address] JO1 ANTIBODY <0.2 Normal <1.0 [facility] Comment on above: Performed By: #### C BCA, 79333-5, CMP, 1987-12, 4485-04, 4498-2, ENAP #### [facility] ([id number]) [address], [address] [place] [address] BUILDING CERT[employer] ANTIBODY IGG 0.6 AI Normal <1.0 [facility] Comment on above: Performed By: #### C BCA, 67027-7, CMP, 1987-12, 4485-04, 4498-2, ENAP #### [facility] ([id number]) [address], [address] [place] [address] SCL 70 ANTIBODY <0.2 Normal <1.0 [facility] Comment on above: Performed By: #### C BCA, 67404-9, CMP, 1987-12, 4485-04, 4498-2, ENAP #### [facility] ([id number]) [address] [address] SSA ANTIBODY <0.2 Normal <1.0 [facility] Comment on above: Performed By: #### C BCA, 44604-4, CMP, 1987-12, 4485-04, 4498-2, ENAP #### [facility] ([id number]) [address] [address] SSB ANTIBODY <0.2 Normal <1.0 [facility] Comment on above: Performed By: #### C BCA, 93437-7, CMP, 1987-12, 4485-04, 4498-2, ENAP #### [facility] ([id number]) [address] [address] ESR Photometric method (Bld) [Velocity]on 04-17-2024 ESR, ERYTHROCYTE SEDIMENTATION RATE 19 mm/h High 0-15 [facility] Comment on above: Performed By: #### C BCA, 84796-0, CMP, 1987-12, 4485-04, 4498-2, ENAP #### [facility] ([id number]) [address] [address] Automated basophil %Ordered By: Margaret Kennedy on 03-30-2024 Basophils/100 WBC (Bld) 0.4 % Normal . [facility] Comment on above: Performed By: #### B MP, MG, CBC #### [address] Automated basophil countOrde red By: Margaret Kennedy on 03-30-2024 Basophils (Bld) [#/Vol] 0.1 10*3/uL Normal 0.0-0.2 [facility] Comment on above: Result Comment: PERF ORMED BY: [place] [address] PATHOLOGIST [employer]ASITOLOG[employer] TE[employer]ER MARLYN MCKEON M.D. Performed By: #### B MP, MG, CBC #### [address] Automated blood monocyte cou ntOrdered By: Margaret Kennedy on 03-30-2024 Monocytes (Bld) [#/Vol] 1.8 10*3/uL High 0.0-0.8 [facility] Comment on above: Performed By: #### B MP, MG, CBC #### [address] Automated eosinophil %Ordere d By: Margaret Kennedy on 03-30-2024 Eosinophils/100 WBC (Bld) 1.0 % Normal . [facility] Comment on above: Performed By: #### B MP, MG, CBC #### [facility] [address] [place] [address] Automated eosinophil countOr dered By: Margaret Kennedy on 03-30-2024 Eosinophils (Bld) [#/Vol] 0.2 10*3/uL Normal 0.0-0.45 [facility] Comment on above: Performed By: #### B MP, MG, CBC #### [address] Automated monocyte %Ordered By: Margaret Kennedy on 03-30-2024 Monocytes/100 WBC (Bld) 9.0 % Normal . [facility] Comment on above: Performed By: #### B MP, MG, CBC #### [facility] [address] Automated neutrophil %Ordere d By: Margaret Kennedy on 03-30-2024 Neutrophils/100 WBC (Bld) 67.6 % Normal . [facility] Comment on above: Performed By: #### B MP, MG, CBC #### [facility] [address] Basic Metabolic Panelon 080 Creatinine Clr Calc Pharmacy 238.21 Normal [facility] Comment on above: Performed By: #### B MP, MG, CBC #### [facility] [address] [place] [address] GFR/1.73 sq M.predicted MDRD (S/P/Bld) [Vol rate/Area] mL/min/{1.73_m2} Normal [facility] Comment on above: Performed By: #### B MP, MG, CBC #### [address] head/brain wo conon 03-30 CT head/brain wo con [facility] [place] [address] CT Scan Report Signed Patient: Bhumika Umana JR MR#: [id number] : 1975 Acct:[id number] Age/Sex: 48 / M ADM Date: 03/30/24 Loc: Room: [address] [place] [address] Type: ADM INOo Attending Dr: Bola Garcia [...] Mert Ferreira M.D.03/30/2024 9:26 AM Dictation Location: [place] [address] Transcribed By: [facility] 03/30/24925 Dictated By: Mert Ferreira DO 03/30/24917 Signed By: 03/30/24925 Normal [facility] Calcium [Mass/volume] in Ser um or PlasmaOrdered By: Margaret Kennedy on 03-30-2024 Calcium [Mass/Vol] 9.3 mg/dL Normal 8.6-10.3 [facility] Comment on above: Performed By: #### B MP, MG, CBC #### [address] Capillary blood glucose pete urement by glucometer (mass/volume)Ordered By: Edgar Gomez on 03-30-2024 Glucose [Mass/Vol] 115 mg/dL Normal [facility] Comment on above: Random Glucose Refer ence Range is dependent on time and content of last meal. Glucose of more than 200 mg/dL in a nonstressed, ambulatory subject supports the diagnosis of Diabetes Mellitus. Result Comment: Benedict om Glucose Reference Range is dependent on time and content of last meal. Glucose of more than 200 mg/dL in a nonstressed, ambulatory subject supports the diagnosis of Diabetes Mellitus. PERFORMED BY: [facility] [address] [place] [address] PATHOLOGIST PARASITOLOGY TEACHER MARLYN MCKEON M.D. Performed By: #### G MARGARITA #### Point of Care testing , Carbon dioxide, total [Moles /volume] in Serum or PlasmaOrdered By: Margaret Kennedy on 03-30-2024 CO2 [Moles/Vol] 27.2 mmol/L Normal 21.0-31.0 [facility] Comment on above: Performed By: #### B MP, MG, CBC #### [address] Chloride [Moles/volume] in S vandana or PlasmaOrdered By: Margaret Kennedy on 03-30-2024 Chloride [Moles/Vol] 101 mmol/L Normal 98-107 [facility] Comment on above: Performed By: #### B MP, MG, CBC #### [address] Complete Blood Count Auto Di ffon 03-30-2024 Mean Corpuscular HGB Conc 33.3 g/dL Normal 32.5-35.6 [facility] Comment on above: Performed By: #### B MP, MG, CBC #### [address] NRBC% 0.0 /100{WBC} Normal 0-0.5 [facility] Comment on above: Performed By: #### B MP, MG, CBC #### [address] Creatinine [Mass/volume] in Serum or PlasmaOrdered By: Margaret Kennedy on 03-30-2024 Creatinine [Mass/Vol] 0.61 mg/dL Low 0.70-1.30 [facility] Comment on above: Performed By: #### B MP, MG, CBC #### [address] Erythrocyte distribution wid th [Ratio] by Automated countOrdered By: Margaret Kennedy on 03-30-2024 Erythrocyte distribution width (RBC) [Ratio] 13.6 % Normal 12.0-14.8 [facility] Comment on above: Performed By: #### B MP, MG, CBC #### [facility] [address] [place] [address] [place] Erythrocytes [#/volume] in B lood by Automated countOrdered By: Margaret Kennedy on 03-30-2024 RBC (Bld) [#/Vol] 5.03 10*6/uL Normal 3.90-5.60 [facility] Comment on above: Performed By: #### B MP, MG, CBC #### [facility] [address] Glucose Poct Glucometerson 0 03-30-2024 Glucose [Mass/Vol] 159 mg/dL Normal [facility] Comment on above: Result Comment: Benedict om Glucose Reference Range is dependent on time and content of last meal. Glucose of more than 200 mg/dL in a nonstressed, ambulatory subject supports the diagnosis of Diabetes Mellitus. PERFORMED BY: [place] [address] PATHOLOGIST PARASITOLOGY TEACHER MARLYN MCKEON M.D. Performed By: #### C BC, MG, PHOS, CMP #### [address] Glucose [Mass/Vol] 144 mg/dL Normal [facility] Comment on above: Result Comment: Benedict om Glucose Reference Range is dependent on time and content of last meal. Glucose of more than 200 mg/dL in a nonstressed, ambulatory subject supports the diagnosis of Diabetes Mellitus. PERFORMED BY: [place] [address] PATHOLOGIST PARASITOLOGY TEACHER MARLYN MCKEON M.D. Performed By: #### C BC, MG, PHOS, CMP #### [address] Glucose [Mass/volume] in Ser um or PlasmaOrdered By: Margaret Kennedy on 03-30-2024 Glucose [Mass/Vol] 119 mg/dL High 70-100 [facility] Comment on above: ADA recommended refe rence rangeRandom Glucose Reference Range is dependent on time and content of last meal. Glucose of more than 200 mg/dL in a nonstressed, ambulatory subject supports the diagnosis of Diabetes Mellitus. Result Comment: Benedict om Glucose Reference Range is dependent on time and content of last meal. Glucose of more than 200 mg/dL in a nonstressed, ambulatory subject supports the diagnosis of Diabetes Mellitus. ADA recommended reference range Performed By: #### B MP, MG, CBC #### [address] Hematocrit [Volume Fraction] of Blood by Automated countOrdered By: Margaret Kennedy on 03-30-2024 Hematocrit (Bld) [Volume fraction] 44.6 % Normal 38.8-50.0 [facility] Comment on above: Performed By: #### B MP, MG, CBC #### [address] Hemoglobin [Mass/volume] in BloodOrdered By: Margaret Kennedy on 03-30-2024 Hemoglobin (Bld) [Mass/Vol] 14.9 g/dL Normal 13.0-17.0 [facility] Comment on above: Performed By: #### B MP, MG, CBC #### [address] Leukocytes [#/volume] correc elizabeth for nucleated erythrocytes in Blood by Automated counOrdered By: Margaret Kennedy on 03-30-2024 WBC corrected for nucl RBC Auto (Bld) [#/Vol] 20.0 10*3/uL High 4.1-10.5 [facility] Leukocytes [#/volume] in Blo od by Automated countOrdered By: Margaret Kennedy on 03-30-2024 WBC (Bld) [#/Vol] 20.0 10*3/uL High 4.1-10.5 [facility] Comment on above: Performed By: #### B MP, MG, CBC #### [address] Lymphocytes [#/volume] in Bl ood by Automated countOrdered By: Margaret Kennedy on 03-30-2024 Lymphocytes (Bld) [#/Vol] 4.4 10*3/uL Normal 1.00-4.8 [facility] Comment on above: Performed By: #### B MP, MG, CBC #### [place] [address] [place] Lymphocytes/100 leukocytes i n Blood by Automated countOrdered By: Margaret Kennedy on 03-30-2024 Lymphocytes/100 WBC (Bld) 22.0 % Normal . [facility] Comment on above: Performed By: #### B MP, MG, CBC #### [address] MCH [Entitic mass] by Automa elizabeth countOrdered By: Margaret Kennedy on 03-30-2024 MCH (RBC) [Entitic mass] 29.5 pg Normal 27.5-35.2 [facility] Comment on above: Performed By: #### B MP, MG, CBC #### [address] MCHC Auto (RBC) [Mass/Vol]Or dered By: Margaret Kennedy on 03-30-2024 MCHC (RBC) [Mass/Vol] 33.3 g/dL 32.5-35.6 [facility] MCV [Entitic volume] by Auto mated countOrdered By: Margaret Kennedy on 03-30-2024 MCV (RBC) [Entitic vol] 88.6 fL Normal 83.5-101 [facility] Comment on above: Performed By: #### B MP, MG, CBC #### [address] Magnesium [Mass/volume] in S vandana or PlasmaOrdered By: Margaret Kennedy on 03-30-2024 Magnesium [Mass/Vol] 1.8 mg/dL Low 1.9-2.7 [facility] Comment on above: Result Comment: PERF ORMED BY: [place] [address] PATHOLOGIST PARASITOLOGY TEACHER MARLYN MCKEON M.D. Performed By: #### B MP, MG, CBC #### [address] Neutrophils [#/volume] in Bl ood by Automated countOrdered By: Margaret Kennedy on 03-30-2024 Neutrophils (Bld) [#/Vol] 13.5 10*3/uL High 1.8-7.7 [facility] Comment on above: Performed By: #### B MP, MG, CBC #### [address] No Panel InformationOrdered By: Margaret Kennedy on 03-30-2024 Estimated GFR (CKD-EPI) > 60.0 mL/Min [facility] Creatinine Clearance (Chem 238.21 [facility] Nucleated erythrocytes [Pres ence] in Blood by Automated countOrdered By: Margaret Kennedy on 03-30-2024 Nucleated RBC Auto Ql (Bld) 0.0 /100{WBC} 0-0.5 [facility] Platelet mean volume [Entiti c volume] in Blood by Automated countOrdered By: Margaret Kennedy on 03-30-2024 Platelet mean volume (Bld) [Entitic vol] 7.5 fL Normal 6.6-10.1 [facility] Comment on above: Performed By: #### B MP, MG, CBC #### [facility] [address] [place] [address] [place] Platelets [#/volume] in Bloo d by Automated countOrdered By: Margaret Kennedy on 03-30-2024 Platelets (Bld) [#/Vol] 324 10*3/uL Normal 150-450 [facility] Comment on above: Performed By: #### B MP, MG, CBC #### [facility] [address] [place] [address] [place] Potassium [Moles/volume] in Serum or PlasmaOrdered By: Margaret Kennedy on 03-30-2024 Potassium [Moles/Vol] 4.4 mmol/L Normal 3.5-5.1 [facility] Comment on above: Performed By: #### B MP, MG, CBC #### [facility] [address] [place] [address] Serum or plasma anion gap de terminationOrdered By: Margaret Kennedy on 03-30-2024 Anion gap [Moles/Vol] 12.2 mmol/L Normal 6.0-15.0 [facility] Comment on above: Performed By: #### B MP, MG, CBC #### [facility] [address] [place] [address] [place] Sodium [Moles/volume] in Ser um or PlasmaOrdered By: Margaret Kennedy on 03-30-2024 Sodium [Moles/Vol] 136 mmol/L Normal 136-145 [facility] Comment on above: Performed By: #### B MP, MG, CBC #### [facility] [address] Urea nitrogen [Mass/volume] in Serum or PlasmaOrdered By: Margaret Kennedy on 03-30-2024 Urea nitrogen [Mass/Vol] 13 mg/dL Normal 7-25 [facility] Comment on above: Performed By: #### B MP, MG, CBC #### [facility] [address] Automated basophil %Ordered By: Emily Winn on 03-29-2024 Basophils/100 WBC (Bld) 0.5 % Normal . [facility] Comment on above: Performed By: #### G LULS #### Point of Care testing , Automated basophil countOrde red By: Emily Winn on 03-29-2024 Basophils (Bld) [#/Vol] 0.1 10*3/uL Normal 0.0-0.2 [facility] Comment on above: Performed By: #### G LULS #### Point of Care testing , Automated blood monocyte cou ntOrdered By: Emily Winn on 03-29-2024 Monocytes (Bld) [#/Vol] 1.1 10*3/uL High 0.0-0.8 [facility] Comment on above: Performed By: #### G LULS #### Point of Care testing , Automated eosinophil %Ordere d By: Emily Winn on 03-29-2024 Eosinophils/100 WBC (Bld) 0.6 % Normal . [facility] Comment on above: Performed By: #### G LULS #### Point of Care testing , Automated eosinophil countOr dered By: Emily Winn on 03-29-2024 Eosinophils (Bld) [#/Vol] 0.1 10*3/uL Normal 0.0-0.45 [facility] Comment on above: Performed By: #### G LULS #### Point of Care testing , Automated monocyte %Ordered By: Emily Winn on 03-29-2024 Monocytes/100 WBC (Bld) 6.5 % Normal . [facility] Comment on above: Performed By: #### G LULS #### Point of Care testing , Automated neutrophil %Ordere d By: Emily Winn on 03-29-2024 Neutrophils/100 WBC (Bld) 77.7 % Normal . [facility] Comment on above: Performed By: #### G LULS #### Point of Care testing , Basic Metabolic Panelon Creatinine Clr Calc Pharmacy 196.64 Normal [facility] Comment on above: Performed By: #### B MP, MG, CBC #### [place] [address] [place] GFR/1.73 sq M.predicted MDRD (S/P/Bld) [Vol rate/Area] mL/min/{1.73_m2} Normal [facility] Comment on above: Performed By: #### B MP, MG, CBC #### [place] [address] [place] C reactive protein [Mass/vol ume] in Serum or PlasmaOrdered By: Emily Winn on 03-29-2024 CRP [Mass/Vol] < 0.5 mg/dL 0.0-0.5 [facility] C-Reactive Proteinon 024 CRP [Mass/Vol] mg/L Normal 0.0-0.5 [facility] Comment on above: Result Comment: PERF ORMED BY: [place] [address] PATHOLOGIST PARASITOLOGY TEACHER MARLYN MCKEON M.D. Performed By: #### B MP, MG, CBC #### [facility] [address] [place] [address] [place] Calcium [Mass/volume] in Ser um or PlasmaOrdered By: Emily Winn on 03-29-2024 Calcium [Mass/Vol] 9.3 mg/dL Normal 8.6-10.3 [facility] Comment on above: Performed By: #### B MP, MG, CBC #### [place] [address] [place] Capillary blood glucose pete urement by glucometer (mass/volume)Ordered By: Emily Winn on 03-29-2024 Glucose [Mass/Vol] 204 mg/dL Normal [facility] Comment on above: Random Glucose Refer ence Range is dependent on time and content of last meal. Glucose of more than 200 mg/dL in a nonstressed, ambulatory subject supports the diagnosis of Diabetes Mellitus. Result Comment: Benedict om Glucose Reference Range is dependent on time and content of last meal. Glucose of more than 200 mg/dL in a nonstressed, ambulatory subject supports the diagnosis of Diabetes Mellitus. PERFORMED BY: [place] [address] PATHOLOGIST PARASITOLOGY TEACHER MARLYN MCKEON M.D. Performed By: #### C BC, MG, PHOS, CMP #### [facility] [address] [place] [address] Carbon dioxide, total [Moles /volume] in Serum or PlasmaOrdered By: Emily Tatum on 03-29-2024 CO2 [Moles/Vol] 23.0 mmol/L Normal 21.0-31.0 [facility] Comment on above: Performed By: #### B MP, MG, CBC #### [facility] [address] [place] [address] Chloride [Moles/volume] in S vandana or PlasmaOrdered By: Emily Krise on 03-29-2024 Chloride [Moles/Vol] 101 mmol/L Normal 98-107 [facility] Comment on above: Performed By: #### B MP, MG, CBC #### [facility] [address] [place] [address] Complete Blood Count Auto Di ffon 03-29-2024 Mean Corpuscular HGB Conc 33.1 g/dL Normal 32.5-35.6 [facility] Comment on above: Performed By: #### G LULS #### Point of Care testing , Monocytes/100 WBC (Bld) 16.02 % Normal 0.00-20.00 [facility] Comment on above: Performed By: #### G LULS #### Point of Care testing , NRBC% 0.1 /100{WBC} Normal 0-0.5 [facility] Comment on above: Performed By: #### G LULS #### Point of Care testing , Creatine kinase [Enzymatic a ctivity/volume] in Serum or PlasmaOrdered By: Emily Winn on 03-29-2024 CK [Catalytic activity/Vol] 37 U/L Normal 30-223 [facility] Comment on above: Result Comment: PERF ORMED BY: [place] [address] PATHOLOGIST PARASITOLOGY TEACHER MARLYN MCKEON M.D. Performed By: #### G LULS #### Point of Care testing , Creatinine [Mass/volume] in Serum or PlasmaOrdered By: Emily Winn on 03-29-2024 Creatinine [Mass/Vol] 0.74 mg/dL Normal 0.70-1.30 [facility] Comment on above: Performed By: #### B MP, MG, CBC #### [address] Erythrocyte Sedimentation Ra devaugnh 03-29-2024 ESR (Bld) [Velocity] 12 mm/h Normal 0-14 [facility] Comment on above: Result Comment: PERF ORMED BY: [place] [phone] PATHOLOGIST PARASITOLOGY TEACHER MARLYN MCKEON M.D. Performed By: #### G LULS #### Point of Care testing , Erythrocyte distribution wid th [Ratio] by Automated countOrdered By: Emily Winn on 03-29-2024 Erythrocyte distribution width (RBC) [Ratio] 13.6 % Normal 12.0-14.8 [facility] Comment on above: Performed By: #### G LULS #### Point of Care testing , Erythrocyte sedimentation ra te by Photometric methodOrdered By: Emily Winn on 03-29-2024 ESR Photometric method (Bld) [Velocity] 12 mm/hr 0-14 [facility] Erythrocytes [#/volume] in B lood by Automated countOrdered By: Emily Winn on 03-29-2024 RBC (Bld) [#/Vol] 5.15 10*6/uL Normal 3.90-5.60 [facility] Comment on above: Performed By: #### G MARGARITA #### Point of Care testing , Glucose [Mass/volume] in Ser um or PlasmaOrdered By: Emily Winn on 03-29-2024 Glucose [Mass/Vol] 201 mg/dL High 70-100 [facility] Comment on above: ADA recommended refe rence rangeRandom Glucose Reference Range is dependent on time and content of last meal. Glucose of more than 200 mg/dL in a nonstressed, ambulatory subject supports the diagnosis of Diabetes Mellitus. Result Comment: Benedict om Glucose Reference Range is dependent on time and content of last meal. Glucose of more than 200 mg/dL in a nonstressed, ambulatory subject supports the diagnosis of Diabetes Mellitus. ADA recommended reference range Performed By: #### B MP, MG, CBC #### [address] Hematocrit [Volume Fraction] of Blood by Automated countOrdered By: Emily Winn on 03-29-2024 Hematocrit (Bld) [Volume fraction] 45.6 % Normal 38.8-50.0 [facility] Comment on above: Performed By: #### G MARGARITA #### Point of Care testing , Hemoglobin [Mass/volume] in BloodOrdered By: Emily Winn on 03-29-2024 Hemoglobin (Bld) [Mass/Vol] 15.1 g/dL Normal 13.0-17.0 [facility] Comment on above: Performed By: #### G MARGARITA #### Point of Care testing , Leukocytes [#/volume] correc elizabeth for nucleated erythrocytes in Blood by Automated counOrdered By: Emily Winn on 03-29-2024 WBC corrected for nucl RBC Auto (Bld) [#/Vol] 17.1 10*3/uL High 4.1-10.5 [facility] Leukocytes [#/volume] in Blo od by Automated countOrdered By: Emily Winn on 03-29-2024 WBC (Bld) [#/Vol] 17.1 10*3/uL High 4.1-10.5 [facility] Comment on above: Performed By: #### G LULS #### Point of Care testing , Lymphocytes [#/volume] in Bl ood by Automated countOrdered By: Emily Winn on 03-29-2024 Lymphocytes (Bld) [#/Vol] 2.5 10*3/uL Normal 1.00-4.8 [facility] Comment on above: Performed By: #### G LULS #### Point of Care testing , Lymphocytes/100 leukocytes i n Blood by Automated countOrdered By: Emily Winn on 03-29-2024 Lymphocytes/100 WBC (Bld) 14.7 % Normal . [facility] Comment on above: Performed By: #### G LULS #### Point of Care testing , MCH [Entitic mass] by Automa elizabeth countOrdered By: Emily Winn on 03-29-2024 MCH (RBC) [Entitic mass] 29.3 pg Normal 27.5-35.2 [facility] Comment on above: Performed By: #### G LULS #### Point of Care testing , MCHC Auto (RBC) [Mass/Vol]Or dered By: Emily Winn on 03-29-2024 MCHC (RBC) [Mass/Vol] 33.1 g/dL 32.5-35.6 [facility] MCV [Entitic volume] by Auto mated countOrdered By: Emily Winn on 03-29-2024 MCV (RBC) [Entitic vol] 88.5 fL Normal 83.5-101 [facility] Comment on above: Performed By: #### G LULS #### Point of Care testing , Monocyte distribution width [Entitic volume] in Blood by AutomatedOrdered By: Emily Winn on 03-29-2024 Monocyte distribution width Auto (Bld) [Entitic vol] 16.02 % 0.00-20.00 [facility] Myoglobinon 03-29-2024 Myoglobin [Mass/Vol] 31 ng/mL Normal 28-72 [facility] Comment on above: Result Comment: Perf ormed at: - [facility] [address] [id number] Corporate [employer] Consultant: Gabriel Chan PhD, Phone: [phone] PERFORMED BY: [place] [address] PATHOLOGIST PARASITOLOGY TEACHER MARLYN MCKEON M.D. Performed By: #### B MP, MG, CBC #### [address] Neutrophils [#/volume] in Bl ood by Automated countOrdered By: Emily Winn on 03-29-2024 Neutrophils (Bld) [#/Vol] 13.3 10*3/uL High 1.8-7.7 [facility] Comment on above: Performed By: #### G LULS #### Point of Care testing , No Panel InformationOrdered By: Emily Winn on 03-29-2024 Estimated GFR (CKD-EPI) > 60.0 mL/Min [facility] Creatinine Clearance (Chem 196.64 [facility] Nucleated erythrocytes [Pres ence] in Blood by Automated countOrdered By: Emily Winn on 03-29-2024 Nucleated RBC Auto Ql (Bld) 0.1 /100{WBC} 0-0.5 [facility] Platelet mean volume [Entiti c volume] in Blood by Automated countOrdered By: Emily Winn on 03-29-2024 Platelet mean volume (Bld) [Entitic vol] 7.4 fL Normal 6.6-10.1 [facility] Comment on above: Performed By: #### G LULS #### Point of Care testing , Platelets [#/volume] in Bloo d by Automated countOrdered By: Emily Winn on 03-29-2024 Platelets (Bld) [#/Vol] 352 10*3/uL Normal 150-450 [facility] Comment on above: Performed By: #### G LULS #### Point of Care testing , Potassium [Moles/volume] in Serum or PlasmaOrdered By: Emily Winn on 03-29-2024 Potassium [Moles/Vol] 4.4 mmol/L Normal 3.5-5.1 [facility] Comment on above: Performed By: #### B MP, MG, CBC #### [facility] [address] Serum or plasma anion gap de terminationOrdered By: Emily Winn on 03-29-2024 Anion gap [Moles/Vol] 14.4 mmol/L Normal 6.0-15.0 [facility] Comment on above: Performed By: #### B MP, MG, CBC #### [place] [address] [place] Sodium [Moles/volume] in Ser um or PlasmaOrdered By: Emily Winn on 03-29-2024 Sodium [Moles/Vol] 134 mmol/L Low 136-145 [facility] Comment on above: Performed By: #### B MP, MG, CBC #### [address] Urea nitrogen [Mass/volume] in Serum or PlasmaOrdered By: Emily Winn on 03-29-2024 Urea nitrogen [Mass/Vol] 15 mg/dL Normal 7-25 [facility] Comment on above: Performed By: #### B MP, MG, CBC #### [place] [address] [place] Activated partial thrombopla stin time (aPTT) in platelet poor plasma by coagulation aOrdered By: Danial Horan on 03-25-2024 aPTT Coag (PPP) [Time] 30.2 s 25.1-36.5 [facility] Comment on above: A hematocrit value g reater than 55% may lead to inaccurate results in coagulation testing. Patients having hematocrit values >55% require a special collection tube for coagulation studies. Please contact the laboratory at [phone] for redraw instructions. Aerobic Cultureon 03-25-2024 Aerobic [...] Seen 2+ White Blood Cells PERFORMED BY: [facility] [address] [place] [address] PATHOLOGIST PARASITOLOGY TEACHER MARLYN MCKEON M.D. Normal [facility] Comment on above: Performed By: #### C BC, MG, PHOS, CMP #### [facility] [address] [place] [address] [place] Albumin [Mass/volume] in Cer ebral spinal fluidOrdered By: Danial Horan on 03-25-2024 Albumin (CSF) [Mass/Vol] 46 mg/dL High 10-45 [facility] Albumin [Mass/volume] in Ser um or PlasmaOrdered By: Danial Horan on 03-25-2024 Albumin [Mass/Vol] 4.2 g/dL 4.1-5.1 [facility] CSF IgG/albumin ratioOrdered By: Danial Horan on 03-25-2024 IgG/Albumin (CSF) [Mass ratio] 0.13 0.00-0.25 [facility] CSF PCR Panelon 03-25-2024 CSF PCR [...] Varicella zoster virus Not detected PERFORMED BY: [facility] [address] [place] [address] PATHOLOGIST PARASITOLOGY TEACHER MARLYN MCKEON M.D. Normal [facility] Comment on above: Performed By: #### C BC, MG, PHOS, CMP #### [facility] [address] [place] [address] [facility] Capillary blood glucose pete urement by glucometer (mass/volume)Ordered By: Simon Wolfe on 03-25-2024 Glucose [Mass/Vol] 127 mg/dL Normal [facility] Comment on above: Random Glucose Refer ence Range is dependent on time and content of last meal. Glucose of more than 200 mg/dL in a nonstressed, ambulatory subject supports the diagnosis of Diabetes Mellitus. Result Comment: [facility] Glucose Reference Range is dependent on time and content of last meal. Glucose of more than 200 mg/dL in a nonstressed, ambulatory subject supports the diagnosis of Diabetes Mellitus. PERFORMED BY: [place] [address] PATHOLOGIST PARASITOLOGY TEACHER MARLYN MCKEON M.D. Performed By: #### B MP, MG, CBC #### [address] Cell Count Differential,CSFo n 03-25-2024 Appearance, CSF Turbid Critically abnormal Clear [facility] Comment on above: Order Comment: Comme nt Tube 1 Performed By: #### C BC, MG, PHOS, CMP #### [address] Color, CSF Red Critically abnormal Colorless [facility] Comment on above: Order Comment: Comme nt Tube 1 Performed By: #### C BC, MG, PHOS, CMP #### [place] [address] [place] Eosinophil, CSF 2 % High 0-0 [facility] Comment on above: Order Comment: Comme nt Tube 1 Performed By: #### C BC, MG, PHOS, CMP #### [place] [address] [place] Lymphocytes, CSF 19 % Low 40-80 [facility] Comment on above: Order Comment: Comme nt Tube 1 Performed By: #### C BC, MG, PHOS, CMP #### [place] [address] [place] Monocytes, CSF 7 % Low 15-45 [facility] Comment on above: Order Comment: Comme nt Tube 1 Performed By: #### C BC, MG, PHOS, CMP #### [place] [address] [place] Neutrophils, CSF 72 % High 0-6 [facility] Comment on above: Order Comment: Comme nt Tube 1 Performed By: #### C BC, MG, PHOS, CMP #### [address] [place] [address] Normal [facility] Comment on above: Order Comment: Comme nt Tube 1 Result Comment: The reference interval and other method performance specifications have not been established for this body fluid. The test result must be integrated into the clinical context for interpretation. Performed By: #### C BC, MG, PHOS, CMP #### [address] TNC, CSF 85 Off scale high 0-5 [facility] Comment on above: Order Comment: Comme nt Tube 1 Result Comment: Crit ical value result called at 1233 on 03/25/24 Performed By: #### C BC, MG, PHOS, CMP #### [address] Tube Number Tested, CSF Tube Number: 1 Normal [facility] Comment on above: Order Comment: Comme nt Tube 1 Result Comment: PERF ORMED BY: [place] [address] PATHOLOGIST PARASITOLOGY TEACHER MARLYN MCKEON M.D. Performed By: #### C BC, MG, PHOS, CMP #### [address] Cell Count Differential,CSF #2on 03-25-2024 Appearance, CSF Hazy Critically abnormal Clear [facility] Comment on above: Order Comment: Comme nt Tube 3 Performed By: #### C BC, MG, PHOS, CMP #### [place] [address] [place] Color, CSF LT PINK Normal Colorless [facility] Comment on above: Order Comment: Comme nt Tube 3 Performed By: #### C BC, MG, PHOS, CMP #### [address] CSF Supernatant Color Colorless Normal Colorless [facility] Comment on above: Order Comment: Comme nt Tube 3 Performed By: #### C BC, MG, PHOS, CMP #### [facility] [address] [place] [address] Order Comment: Comme nt Tube 1 CSF Volume, Total 9.0 mL Normal [facility] Comment on above: Order Comment: Comme nt Tube 3 Performed By: #### C BC, MG, PHOS, CMP #### [address] Order Comment: Comme nt Tube 1 Eosinophil, CSF 1 % High 0-0 [facility] Comment on above: Order Comment: Comme nt Tube 3 Performed By: #### C BC, MG, PHOS, CMP #### [address] Lymphocytes, CSF 29 % Low 40-80 [facility] Comment on above: Order Comment: Comme nt Tube 3 Performed By: #### C BC, MG, PHOS, CMP #### [facility] [address] [place] [address] Monocytes, CSF 8 % Low 15-45 [facility] Comment on above: Order Comment: Comme nt Tube 3 Performed By: #### C BC, MG, PHOS, CMP #### [address] Neutrophils, CSF 62 % High 0-6 [facility] Comment on above: Order Comment: Comme nt Tube 3 Performed By: #### C BC, MG, PHOS, CMP #### [facility] [address] [place] [address] RBC, CSF 3051 Normal [facility] Comment on above: Order Comment: Comme nt Tube 3 Result Comment: The reference interval and other method performance specifications have not been established for this body fluid. The test result must be integrated into the clinical context for interpretation. Performed By: #### C BC, MG, PHOS, CMP #### [facility] [address] [place] [address] TNC, CSF 3 /uL Normal 0-5 [facility] Comment on above: Order Comment: Comme nt Tube 3 Performed By: #### C BC, MG, PHOS, CMP #### [facility] [address] [place] [address] [place] Tube Number Tested, CSF Tube Number: 3 Normal [facility] Comment on above: Order Comment: Comme nt Tube 3 Result Comment: PERF ORMED BY: [address] [place] [id number] PATHOLOGIST PARASITOLOGY TEACHER MARLYN MCKEON M.D. Performed By: #### C BC, MG, PHOS, CMP #### [facility] [address] Cells Counted Total [#] in B patricia fluidOrdered By: Danial Horan on 03-25-2024 Cells Counted Total (Body fld) [#] 85 mm^3 High 0-5 [facility] Comment on above: Critical valueresult calledat 1233 on 03/25/24 Cerebrospinal fluid IgG inde xOrdered By: Danial Horan on 03-25-2024 IgG clearance/Albumin clearance (S+CSF) [Ratio] 0.6 0.0-0.7 [facility] Cerebrospinal fluid appearan ce descriptionOrdered By: Danial Horan on 03-25-2024 Appearance (CSF) Hazy Abnormal Clear [facility] Cerebrospinal fluid eosinoph il percentageOrdered By: Danial Horan on 03-25-2024 Eosinophils/100 WBC (CSF) 2 % High 0-0 [facility] Cerebrospinal fluid lymphocy te percentageOrdered By: Danial Horan on 03-25-2024 Lymphocytes/Leukocyte s Manual cnt (CSF) [Pure # fraction] 19 % Low 40-80 [facility] Cerebrospinal fluid monocyte percentageOrdered By: Danial Horan on 03-25-2024 Monocytes/100 WBC (CSF) 7 % Low 15-45 [facility] Cerebrospinal fluid neutroph il percentageOrdered By: Danial Horan on 03-25-2024 Neutrophils/100 WBC (CSF) 72 % High 0-6 [facility] Cerebrospinal fluid post-oneil trifugation appearance determinationOrdered By: Danial Horan on 03-25-2024 Appearance (Spun CSF) Colorless Colorless [facility] Cerebrospinal fluid sample t ube volume measurementOrdered By: Danial Horan on 03-25-2024 Specimen volume (CSF) 9.0 mL [facility] Color CSFOrdered By: Danial polanco on 03-25-2024 Color (CSF) Lt pink Colorless [facility] Erythrocytes [#/volume] in B patricia fluid by Automated countOrdered By: Danial Horan on 03-25-2024 RBC Auto (Body fld) [#/Vol] 3051 mm^3 [facility] Comment on above: The reference interv al and other method performance specifications have not been established for this body fluid. The test result must be integrated into the clinical context for interpretation. Glucose Poct Glucometerson 0 03-25-2024 Glucose [Mass/Vol] 156 mg/dL Normal [facility] Comment on above: Result Comment: [facility] Glucose Reference Range is dependent on time and content of last meal. Glucose of more than 200 mg/dL in a nonstressed, ambulatory subject supports the diagnosis of Diabetes Mellitus. PERFORMED BY: [place] [address] PATHOLOGIST PARASITOLOGY TEACHER MARLYN MCKEON M.D. Performed By: #### C BC, MG, PHOS, CMP #### [address] Glucose [Mass/Vol] 114 mg/dL Normal [facility] Comment on above: Result Comment: [facility] Glucose Reference Range is dependent on time and content of last meal. Glucose of more than 200 mg/dL in a nonstressed, ambulatory subject supports the diagnosis of Diabetes Mellitus. PERFORMED BY: [place] [address] PATHOLOGIST PARASITOLOGY TEACHER MARLYN MCKEON M.D. Performed By: #### G LULS #### Point of Care testing , Glucose [Mass/Vol] 99 mg/dL Normal [facility] Comment on above: Result Comment: [facility] Glucose Reference Range is dependent on time and content of last meal. Glucose of more than 200 mg/dL in a nonstressed, ambulatory subject supports the diagnosis of Diabetes Mellitus. PERFORMED BY: [place] [address] PATHOLOGIST PARASITOLOGY TEACHER MARLYN MCKEON M.D. Performed By: #### G LULS #### Point of Care testing , Glucose [Mass/volume] in Cer ebral spinal fluidOrdered By: Danial Horan on 03-25-2024 Glucose (CSF) [Mass/Vol] 72 mg/dL High 40-70 [facility] Glucose, CSF #2on 03-25-2024 Glucose, CSF #2 72 mg/dL High 40-70 [facility] Comment on above: Order Comment: Comme nt Tube 3 Performed By: #### C BC, MG, PHOS, CMP #### [facility] [address] [place] [address] [place] Glucose, Spinal Fluidon 02-26 Glucose, Spinal Fluid 72 mg/dL High 40-70 [facility] Comment on above: Order Comment: Comme nt Tube 1 Performed By: #### C BC, MG, PHOS, CMP #### [facility] [address] [place] [address] [place] Gram Stainon 03-25-2024 Microscopic observation Gram stain Nom (Unsp spec) PER LAB PROTOCAL - WHEN PCR ORDERED, A CULTURE MUST BE ORDERED. Tube Number for CSF Microbiology: 2 Gram Stain Result No Bacteria Seen 2+ White Blood Cells PERFORMED BY: [place] [address] PATHOLOGIST PARASITOLOGY TEACHER MARLYN MCKEON M.D. Normal [facility] Comment on above: Performed By: #### C BC, MG, PHOS, CMP #### [facility] [address] [place] [address] Gram stain for investigation of transfusion reactionOrdered By: Danial Horan on 03-25-2024 Microscopic observation Gram stain Nom (Unsp spec) [facility] Microscopic observation Gram stain Nom (Unsp spec) No Anaerobes Isolated 3 Days [facility] INR in Platelet poor plasma by Coagulation assayOrdered By: Danial Horan on 03-25-2024 INR Coag (PPP) [Relative time] 1.0 {INR} Normal [facility] Comment on above: INR Therapeutic Rang [...] IR guided lumbar puncture LP [facility] [place] [address] [place] [address] Interventional Radiology Rpt Signed Patient: Bhumika Umana JR MR#: [id number] : 1975 Acct:[id number] Age/Sex: 48 / M ADM Date: 03/23/24 Loc: Room: [address] [place] [address] Type: ADM IN Attending Dr: Simon Wolfe MD Copies to: DO Simon Aguirre MD Ordering Provider: Danial Horan DO Date of Service: 03/25/24 IR/IR guided lumbar puncture LP: CONCERN FOR DEMYELINATING SYNDROME FLUOROSCOPICALLY GUIDED LUMBAR PUNCTURE CLINICAL HISTORY: Upper extremity weakness. 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 Cumulative Air Kerma in mGy: 31.4 [...] Mert Ferreira M.D.03/25/2024 12:51 PM Dictation Location: [place] [address] Transcribed By: [facility] 03/25/24 1251 Dictated By: Mert Ferreira DO 03/25/24 1247 Signed By: 03/25/24 1251 Normal [facility] IgG [Mass/volume] in Cerebra l spinal fluidOrdered By: Danial Horan on 03-25-2024 IgG (CSF) [Mass/Vol] 6.0 mg/dL 0.0-10.3 [facility] IgG [Mass/volume] in Serum o r PlasmaOrdered By: Danial Horan on 03-25-2024 IgG [Mass/Vol] 868 mg/dL [id number] [facility] IgG synthesis rate [Mass/tonya e] in Serum and CSF by calculationOrdered By: Danial Horan on 03-25-2024 IgG synthesis rate Calc (S+CSF) [Mass/Time] 5.9 mg/day High -9.9 TO +3.3 [facility] Comment on above: Performed at: [address] Director: Gabriel Chan PhD, Phone: [phone] [facility] 03-25-2024 L Specimen: [id number] Received: 03/25/24 Status: MEDINA [place] Num: [id number] Spec Type: Cytology Subm Dr: Mert Ferreira DO Tissues: A CSF (CSF) Procedures: Cyto Prepstain, DIFF QWIK, PAPSTN Age/ Patient Sex Location Account Attending Physician Bhumika Umana JR 48/M 3T [id number] Simon Wolfe MD SPEC NUM: [id number] RECD: 03/25/24 STATUS: SOUT REQ NUM: [id number] SOL: 03/25/24- DR: Mert Ferreira DO ENTERED: 03/25/[address]: Danial Horan DO SPEC TYPE: Cytology DEPT: CNG ENTERED BY: [id number] RECV BY: [id number] ORDERED: Cyto Prepstain, DIFF QWIK, PAPSTN ORDERED: Cyto Prepstain, DIFF QWIK, PAPSTN Pathological Diagnosis Cerebrospinal fluid: Negative for malignant cells. Clinical Information Bilateral hand weakness Gross Description Received is .5 ml pale pink hazy unfixed fluid for cytology said to have been obtained as spinal fluid. Cytospin slides are stained with Papanicolaou and Diff-Quik stains.(UT/ok) CPT Codes 32993 Specimen: [id number] Received: 03/25/24 Status: MEDINA [place] Num: [id number] Spec Type: Cytology Subm Dr: Mert Ferreira DO Tissues: A CSF (CSF) Procedures: Cyto Prepstain, DIFF QWIK, PAPSTN Patient: Bhumika Umana JR [id number] (Continued) Signed (signature on file) Jyoti Gary MD 03/26/24 1447 Normal [facility] MR cervical spine wo/w conon 03-25-2024 MR cervical spine wo/w con [facility] [place] [address] MRI Report Signed Patient: Bhumika Umana JR MR#: [id number] : 1975 Acct:[id number] Age/Sex: 48 / M ADM Date: 03/23/24 Loc: Room: [address] [place] [address] Type: ADM IN Attending Dr: Simon Wolfe [...] Pal Oconnor M.D.03/25/2024 12:45 PM Dictation Location: [place] [address] Transcribed By: [facility] 03/25/24 1245 Dictated By: Pal Oconnor II, MD 03/25/24 1237 Signed By: 03/25/24 1245 Normal [facility] Meningitis+Encephalitis path ogens DNA and RNA panel - Cerebral spinal fluid by BLAYNE wiOrdered By: Danial Horan on 03-25-2024 Meningitis+Encephalit is pathogens DNA and RNA panel BLAYNE+non-probe (CSF) [facility] No Panel InformationOrdered By: Danial Horan on 03-25-2024 CSF Myelin Basic Protein 2.7 ng/mL 0.0-4.7 [facility] Comment on above: Results of this test are labeled for research purposes onlyby the assay's fire support man. The performancecharacteristics of this assay have not been established bythe fire support man. The result should not be used fortreatment or for diagnostic purposes without confirmationof the diagnosis by another medically establisheddiagnostic product or procedure. The performancecharacteristics were determined by [employer].Performed at: [facility] - [facility] [address] [id number] Director: Mariano Jean MD, Phone: [phone] CSF Tube Number Tube number: 3 [facility] Partial Thromboplastin Timeo n 03-25-2024 aPTT Coag (Bld) [Time] 30.2 s Normal 25.1-36.5 [facility] Comment on above: Result Comment: A he matocrit value greater than 55% may lead to inaccurate results in coagulation testing. Patients having hematocrit values >55% require a special collection tube for coagulation studies. Please contact the laboratory at [phone] for redraw instructions. PERFORMED BY: [facility] [address] [place] [address] PATHOLOGIST PARASITOLOGY TEACHER MARLYN MCKEON M.D. Performed By: #### G LULS #### Point of Care testing , Protein [Mass/volume] in Cer ebral spinal fluidOrdered By: Danial Horan on 03-25-2024 Protein (CSF) [Mass/Vol] 84 mg/dL High 15-45 [facility] Protein fractions.oligoclona l bands.intrathecal [Presence] in Serum and CSFOrdered By: Danial Horan on 03-25-2024 Protein fractions.oligoclonal bands.intrathecal Ql (S+CSF) Comment . [facility] Comment on above: Zero (0) oligoclonal [...] IsoelectricFocusing (IEF) and immunoblotting methodology.Performed at: - [address] [id number] Director: Gabriel Chan PhD, Phone: [phone] Prothrombin time (PT)Ordered By: Danial Horan on 03-25-2024 PT Coag (PPP) [Time] 11.1 s Normal 9.0-12.9 [facility] Comment on above: A hematocrit value g reater than 55% may lead to inaccurate results in coagulation testing. Patients having hematocrit values >55% require a special collection tube for coagulation studies. Please contact the laboratory at [phone] for redraw instructions. Result Comment: A he matocrit value greater than 55% may lead to inaccurate results in coagulation testing. Patients having hematocrit values >55% require a special collection tube for coagulation studies. Please contact the laboratory at [phone] for redraw instructions. Performed By: #### G LULS #### Point of Care testing , Total Protein, CSF #2on - Total Protein, CSF #2 84 mg/dL High 15-45 [facility] Comment on above: Order Comment: Comme nt Tube 3 Result Comment: PERF ORMED BY: [place] [address] PATHOLOGIST PARASITOLOGY TEACHER MARLYN MCKEON M.D. Performed By: #### C BC, MG, PHOS, CMP #### [address] Total Protein, Spinal Fluido n 03-25-2024 Total Protein, Spinal Fluid 116 mg/dL High 15-45 [facility] Comment on above: Order Comment: Comme nt Tube 1 Result Comment: PERF ORMED BY: [place] [address] PATHOLOGIST PARASITOLOGY TEACHER MARLYN MCKEON M.D. Performed By: #### C BC, MG, PHOS, CMP #### [facility] [address] [place] [address] [place] Alanine aminotransferase [En zymatic activity/volume] in Serum or PlasmaOrdered By: Elder Iyer on 03-24-2024 ALT [Catalytic activity/Vol] 24 U/L Normal 7-52 [facility] Comment on above: Performed By: #### C BC, MG, PHOS, CMP #### [facility] [address] [place] [address] [place] Albumin [Mass/volume] in Ser um or Plasma by Bromocresol green (BCG) dye binding methoOrdered By: Elder Iyer on 03-24-2024 Albumin BCG dye [Mass/Vol] 4.1 g/dL 3.5-5.7 [facility] Alkaline phosphatase [Enzyma tic activity/volume] in Serum or PlasmaOrdered By: Elder Iyer on 03-24-2024 ALP [Catalytic activity/Vol] 59 U/L Normal 34-104 [facility] Comment on above: Performed By: #### C BC, MG, PHOS, CMP #### [facility] [address] [place] [address] Aspartate aminotransferase [ Enzymatic activity/volume] in Serum or PlasmaOrdered By: Elder Iyer on 03-24-2024 AST [Catalytic activity/Vol] 14 U/L Normal 13-39 [facility] Comment on above: Performed By: #### C BC, MG, PHOS, CMP #### [facility] [address] [place] [address] Automated basophil %Ordered By: Elder Iyer on 03-24-2024 Basophils/100 WBC (Bld) 0.5 % Normal . [facility] Comment on above: Performed By: #### C BC, MG, PHOS, CMP #### [facility] [address] [place] [address] [place] Automated basophil countOrde red By: Elder Iyer on 03-24-2024 Basophils (Bld) [#/Vol] 0.1 10*3/uL Normal 0.0-0.2 [facility] Comment on above: Result Comment: PERF ORMED BY: [place] [address] PATHOLOGIST PARASITOLOGY TEACHER MARLYN MCKEON M.D. Performed By: #### C BC, MG, PHOS, CMP #### [address] Automated blood monocyte cou ntOrdered By: Elder Iyer on 03-24-2024 Monocytes (Bld) [#/Vol] 1.5 10*3/uL High 0.0-0.8 [facility] Comment on above: Performed By: #### C BC, MG, PHOS, CMP #### [address] Automated eosinophil %Ordere d By: Elder Iyer on 03-24-2024 Eosinophils/100 WBC (Bld) 0.6 % Normal . [facility] Comment on above: Performed By: #### C BC, MG, PHOS, CMP #### [address] Automated eosinophil countOr dered By: Elder Iyer on 03-24-2024 Eosinophils (Bld) [#/Vol] 0.1 10*3/uL Normal 0.0-0.45 [facility] Comment on above: Performed By: #### C BC, MG, PHOS, CMP #### [address] Automated monocyte %Ordered By: Elder Iyer on 03-24-2024 Monocytes/100 WBC (Bld) 8.3 % Normal . [facility] Comment on above: Performed By: #### C BC, MG, PHOS, CMP #### [address] Automated neutrophil %Ordere d By: Elder Iyer on 03-24-2024 Neutrophils/100 WBC (Bld) 57.7 % Normal . [facility] Comment on above: Performed By: #### C BC, MG, PHOS, CMP #### [address] Bilirubin.total [Mass/volume ] in Serum or PlasmaOrdered By: Elder Iyer on 03-24-2024 Bilirubin [Mass/Vol] 0.8 mg/dL Normal 0.3-1.0 [facility] Comment on above: Performed By: #### C BC, MG, PHOS, CMP #### [address] Calcium [Mass/volume] in Ser um or PlasmaOrdered By: Elder Iyer on 03-24-2024 Calcium [Mass/Vol] 8.8 mg/dL Normal 8.6-10.3 [facility] Comment on above: Performed By: #### C BC, MG, PHOS, CMP #### [address] Carbon dioxide, total [Moles /volume] in Serum or PlasmaOrdered By: Elder Iyer on 03-24-2024 CO2 [Moles/Vol] 28.6 mmol/L Normal 21.0-31.0 [facility] Comment on above: Performed By: #### C BC, MG, PHOS, CMP #### [address] Chloride [Moles/volume] in S vandana or PlasmaOrdered By: Elder Iyer on 03-24-2024 Chloride [Moles/Vol] 101 mmol/L Normal 98-107 [facility] Comment on above: Performed By: #### C BC, MG, PHOS, CMP #### [facility] [address] [place] [address] Complete Blood Count Auto Di ffon 03-24-2024 Mean Corpuscular HGB Conc 33.3 g/dL Normal 32.5-35.6 [facility] Comment on above: Performed By: #### C BC, MG, PHOS, CMP #### [address] NRBC% 0.2 /100{WBC} Normal 0-0.5 [facility] Comment on above: Performed By: #### C BC, MG, PHOS, CMP #### [facility] [address] [place] [address] Comprehensive Metabolic Pane rayshawn 03-24-2024 Albumin [Mass/Vol] 4.1 g/dL Normal 3.5-5.7 [facility] Comment on above: Performed By: #### C BC, MG, PHOS, CMP #### [address] Creatinine Clr Calc Pharmacy 164.23 Normal [facility] Comment on above: Performed By: #### C BC, MG, PHOS, CMP #### [address] GFR/1.73 sq M.predicted MDRD (S/P/Bld) [Vol rate/Area] mL/min/{1.73_m2} Normal [facility] Comment on above: Performed By: #### C BC, MG, PHOS, CMP #### [address] Creatinine [Mass/volume] in Serum or PlasmaOrdered By: Elder Iyer on 03-24-2024 Creatinine [Mass/Vol] 0.88 mg/dL Normal 0.70-1.30 [facility] Comment on above: Performed By: #### C BC, MG, PHOS, CMP #### [address] Erythrocyte distribution wid th [Ratio] by Automated countOrdered By: Elder Iyer on 03-24-2024 Erythrocyte distribution width (RBC) [Ratio] 13.8 % Normal 12.0-14.8 [facility] Comment on above: Performed By: #### C BC, MG, PHOS, CMP #### [address] Erythrocytes [#/volume] in B lood by Automated countOrdered By: Elder Iyer on 03-24-2024 RBC (Bld) [#/Vol] 5.07 10*6/uL Normal 3.90-5.60 [facility] Comment on above: Performed By: #### C BC, MG, PHOS, CMP #### [address] Glucose Poct Glucometerson 0 03-24-2024 Glucose [Mass/Vol] 162 mg/dL Normal [facility] Comment on above: Result Comment: Benedict om Glucose Reference Range is dependent on time and content of last meal. Glucose of more than 200 mg/dL in a nonstressed, ambulatory subject supports the diagnosis of Diabetes Mellitus. PERFORMED BY: [place] [address] PATHOLOGIST PARASITOLOGY TEACHER MARLYN MCKEON M.D. Performed By: #### C BC, MG, PHOS, CMP #### [address] Commemt1 Glu2: Cleaned Meter Normal [facility] Comment on above: Result Comment: PERF ORMED BY: [place] [address] PATHOLOGIST PARASITOLOGY TEACHER MARLYN MCKEON M.D. Performed By: #### G LULS #### Point of Care testing , Glucose [Mass/Vol] 114 mg/dL Normal [facility] Comment on above: Result Comment: [place] om Glucose Reference Range is dependent on time and content of last meal. Glucose of more than 200 mg/dL in a nonstressed, ambulatory subject supports the diagnosis of Diabetes Mellitus. Performed By: #### G LULS #### Point of Care testing , Commemt1 Glu2: Cleaned Meter Normal [facility] Comment on above: Result Comment: PERF ORMED BY: [place] [address] PATHOLOGIST PARASITOLOGY TEACHER MARLYN MCKEON M.D. Performed By: #### B MP, MG, CBC #### [address] Glucose [Mass/Vol] 126 mg/dL Normal [facility] Comment on above: Result Comment: [place] om Glucose Reference Range is dependent on time and content of last meal. Glucose of more than 200 mg/dL in a nonstressed, ambulatory subject supports the diagnosis of Diabetes Mellitus. Performed By: #### B MP, MG, CBC #### [facility] [address] Glucose [Mass/Vol] 128 mg/dL Normal [facility] Comment on above: Result Comment: [facility] Glucose Reference Range is dependent on time and content of last meal. Glucose of more than 200 mg/dL in a nonstressed, ambulatory subject supports the diagnosis of Diabetes Mellitus. PERFORMED BY: [place] [address] PATHOLOGIST PARASITOLOGY TEACHER MARLYN MCKEON M.D. Performed By: #### G LULS #### Point of Care testing , Glucose [Mass/Vol] 125 mg/dL Normal [facility] Comment on above: Result Comment: [facility] Glucose Reference Range is dependent on time and content of last meal. Glucose of more than 200 mg/dL in a nonstressed, ambulatory subject supports the diagnosis of Diabetes Mellitus. PERFORMED BY: [place] [address] PATHOLOGIST PARASITOLOGY TEACHER MARLYN MCKEON M.D. Performed By: #### G LULS #### Point of Care testing , Glucose [Mass/volume] in Ser um or PlasmaOrdered By: Elder Iyer on 03-24-2024 Glucose [Mass/Vol] 136 mg/dL Significant change up 70-100 [facility] Comment on above: Delta: 241 on -[id number] recommended reference rangeRandom Glucose Reference Range is dependent on time and content of last meal. Glucose of more than 200 mg/dL in a nonstressed, ambulatory subject supports the diagnosis of Diabetes Mellitus. Result Comment: [facility] Glucose Reference Range is dependent on time and content of last meal. Glucose of more than 200 mg/dL in a nonstressed, ambulatory subject supports the diagnosis of Diabetes Mellitus. ADA recommended reference range Performed By: #### C BC, MG, PHOS, CMP #### [facility] [address] [place] [address] Hematocrit [Volume Fraction] of Blood by Automated countOrdered By: Elder Iyer on 03-24-2024 Hematocrit (Bld) [Volume fraction] 44.7 % Normal 38.8-50.0 [facility] Comment on above: Performed By: #### C BC, MG, PHOS, CMP #### [facility] [address] Hemoglobin [Mass/volume] in BloodOrdered By: Elder Iyer on 03-24-2024 Hemoglobin (Bld) [Mass/Vol] 14.9 g/dL Normal 13.0-17.0 [facility] Comment on above: Performed By: #### C BC, MG, PHOS, CMP #### [facility] [address] Leukocytes [#/volume] correc elizabeth for nucleated erythrocytes in Blood by Automated counOrdered By: Elder Iyer on 03-24-2024 WBC corrected for nucl RBC Auto (Bld) [#/Vol] 18.2 10*3/uL High 4.1-10.5 [facility] Leukocytes [#/volume] in Blo od by Automated countOrdered By: Elder Iyer on 03-24-2024 WBC (Bld) [#/Vol] 18.2 10*3/uL High 4.1-10.5 [facility] Comment on above: Performed By: #### C BC, MG, PHOS, CMP #### [facility] [address] [place] [address] Lymphocytes [#/volume] in Bl ood by Automated countOrdered By: Elder Iyer on 03-24-2024 Lymphocytes (Bld) [#/Vol] 6.0 10*3/uL High 1.00-4.8 [facility] Comment on above: Performed By: #### C BC, MG, PHOS, CMP #### [facility] [address] [place] [address] [place] Lymphocytes/100 leukocytes i n Blood by Automated countOrdered By: Elder Iyer on 03-24-2024 Lymphocytes/100 WBC (Bld) 32.9 % Normal . [facility] Comment on above: Performed By: #### C BC, MG, PHOS, CMP #### [facility] [address] [place] [address] [place] MCH [Entitic mass] by Automa elizabeth countOrdered By: Elder Iyer on 03-24-2024 MCH (RBC) [Entitic mass] 29.3 pg Normal 27.5-35.2 [facility] Comment on above: Performed By: #### C BC, MG, PHOS, CMP #### [facility] [address] [place] [address] MCHC Auto (RBC) [Mass/Vol]Or dered By: Elder Iyer on 03-24-2024 MCHC (RBC) [Mass/Vol] 33.3 g/dL 32.5-35.6 [facility] MCV [Entitic volume] by Auto mated countOrdered By: Elder Iyer on 03-24-2024 MCV (RBC) [Entitic vol] 88.2 fL Normal 83.5-101 [facility] Comment on above: Performed By: #### C BC, MG, PHOS, CMP #### [facility] [address] [place] [address] Magnesium [Mass/volume] in S vandana or PlasmaOrdered By: Elder Iyer on 03-24-2024 Magnesium [Mass/Vol] 2.1 mg/dL Normal 1.9-2.7 [facility] Comment on above: Result Comment: PERF ORMED BY: [place] [address] PATHOLOGIST PARASITOLOGY TEACHER MARLYN MCKEON M.D. Performed By: #### C BC, MG, PHOS, CMP #### [facility] [address] [place] [address] Neutrophils [#/volume] in Bl ood by Automated countOrdered By: Elder Iyer on 03-24-2024 Neutrophils (Bld) [#/Vol] 10.5 10*3/uL High 1.8-7.7 [facility] Comment on above: Performed By: #### C BC, MG, PHOS, CMP #### [facility] [address] [place] [address] No Panel InformationOrdered By: Elder Iyer on 03-24-2024 Bedside Glucose Comment Glu2: cleaned meter [facility] Estimated GFR (CKD-EPI) > 60.0 mL/Min [facility] Creatinine Clearance (Chem 164.23 [facility] Nucleated erythrocytes [Pres ence] in Blood by Automated countOrdered By: Elder Iyer on 03-24-2024 Nucleated RBC Auto Ql (Bld) 0.2 /100{WBC} 0-0.5 [facility] Phosphate [Mass/volume] in S vandana or PlasmaOrdered By: Elder Iyer on 03-24-2024 Phosphate [Mass/Vol] 4.2 mg/dL Normal 2.5-4.5 [facility] Comment on above: Performed By: #### C BC, MG, PHOS, CMP #### [facility] [address] [place] [address] [place] Platelet mean volume [Entiti c volume] in Blood by Automated countOrdered By: Elder Iyer on 03-24-2024 Platelet mean volume (Bld) [Entitic vol] 7.6 fL Normal 6.6-10.1 [facility] Comment on above: Performed By: #### C BC, MG, PHOS, CMP #### [facility] [address] [place] [address] [place] Platelets [#/volume] in Bloo d by Automated countOrdered By: Elder Iyer on 03-24-2024 Platelets (Bld) [#/Vol] 364 10*3/uL Normal 150-450 [facility] Comment on above: Performed By: #### C BC, MG, PHOS, CMP #### [facility] [address] [place] [address] [place] Potassium [Moles/volume] in Serum or PlasmaOrdered By: Elder Iyer on 03-24-2024 Potassium [Moles/Vol] 3.9 mmol/L Normal 3.5-5.1 [facility] Comment on above: Performed By: #### C BC, MG, PHOS, CMP #### [facility] [address] [place] [address] [place] Protein [Mass/volume] in Ser um or PlasmaOrdered By: Elder Iyer on 03-24-2024 Protein [Mass/Vol] 6.5 g/dL Normal 6.4-8.9 [facility] Comment on above: Performed By: #### C BC, MG, PHOS, CMP #### [facility] [address] [place] [address] Serum globulin measurement b y calculation (mass/volume)Ordered By: Elder Iyer on 03-24-2024 Globulin (S) [Mass/Vol] 2.4 g/dL [facility] Comment on above: Performed By: #### C BC, MG, PHOS, CMP #### [facility] [address] [place] [address] Serum or plasma albumin/glob ulin mass ratioOrdered By: Elder Iyer on 03-24-2024 Albumin/Globulin [Mass ratio] 1.7 {ratio} [facility] Comment on above: Performed By: #### C BC, MG, PHOS, CMP #### [facility] [address] [place] [address] Serum or plasma anion gap de terminationOrdered By: Elder Iyer on 03-24-2024 Anion gap [Moles/Vol] 12.3 mmol/L Normal 6.0-15.0 [facility] Comment on above: Performed By: #### C BC, MG, PHOS, CMP #### [facility] [address] [place] [address] Sodium [Moles/volume] in Ser um or PlasmaOrdered By: Elder Iyer on 03-24-2024 Sodium [Moles/Vol] 138 mmol/L Significant change down 136-145 [facility] Comment on above: Delta: 132 on -616 Performed By: #### C BC, MG, PHOS, CMP #### [facility] [address] [place] [address] Urea nitrogen [Mass/volume] in Serum or PlasmaOrdered By: Elder Iyer on 03-24-2024 Urea nitrogen [Mass/Vol] 25 mg/dL Normal 7-25 [facility] Comment on above: Performed By: #### C BC, MG, PHOS, CMP #### [facility] [address] [place] [address] A1C with Estimated Average Magdalena wolf 03-23-2024 Glucose [Mass/Vol] 166 mg/dL Normal [facility] Comment on above: Result Comment: PERF ORMED BY: [place] [address] PATHOLOGIST PARASITOLOGY TEACHER MARLYN MCKEON M.D. Performed By: #### G LULS #### Point of Care testing , BNP ser/plasOrdered By: Veronika Gonzales on 03-23-2024 Natriuretic peptide B (Bld) [Mass/Vol] 27.0 pg/mL Normal 5-100 [facility] Comment on above: Result Comment: PERF ORMED BY: [place] [address] PATHOLOGIST PARASITOLOGY TEACHER MARLYN MCKEON M.D. Performed By: #### C BC, MG, PHOS, CMP #### [address] Basic Metabolic Panelon 02-26 Anion gap [Moles/Vol] 16.0 mmol/L High 6.0-15.0 [facility] Comment on above: Performed By: #### G LULS #### Point of Care testing , Calcium [Mass/Vol] 9.2 mg/dL Normal 8.6-10.3 [facility] Comment on above: Performed By: #### G LULS #### Point of Care testing , Chloride [Moles/Vol] 97 mmol/L Low 98-107 [facility] Comment on above: Performed By: #### G LULS #### Point of Care testing , CO2 [Moles/Vol] 23.4 mmol/L Normal 21.0-31.0 [facility] Comment on above: Performed By: #### G LULS #### Point of Care testing , Creatinine [Mass/Vol] 0.75 mg/dL Normal 0.70-1.30 [facility] Comment on above: Performed By: #### G LULS #### Point of Care testing , Creatinine Clr Calc Pharmacy 195.42 Normal [facility] Comment on above: Performed By: #### G LULS #### Point of Care testing , GFR/1.73 sq M.predicted MDRD (S/P/Bld) [Vol rate/Area] mL/min/{1.73_m2} Normal [facility] Comment on above: Performed By: #### G LULS #### Point of Care testing , Glucose [Mass/Vol] 241 mg/dL Significant change up 70-100 [facility] Comment on above: Result Comment: [facility] Glucose Reference Range is dependent on time and content of last meal. Glucose of more than 200 mg/dL in a nonstressed, ambulatory subject supports the diagnosis of Diabetes Mellitus. ADA recommended reference range Performed By: #### G LULS #### Point of Care testing , Potassium [Moles/Vol] 4.4 mmol/L Normal 3.5-5.1 [facility] Comment on above: Performed By: #### G LULS #### Point of Care testing , Sodium [Moles/Vol] 132 mmol/L Low 136-145 [facility] Comment on above: Performed By: #### G LULS #### Point of Care testing , Urea nitrogen [Mass/Vol] 22 mg/dL Normal 7-25 [facility] Comment on above: Performed By: #### G LULS #### Point of Care testing , Anion gap [Moles/Vol] 17.4 mmol/L High 6.0-15.0 [facility] Comment on above: Performed By: #### C BC, MG, PHOS, CMP #### [facility] [address] [place] [address] [place] Calcium [Mass/Vol] 9.4 mg/dL Normal 8.6-10.3 [facility] Comment on above: Performed By: #### C BC, MG, PHOS, CMP #### [facility] [address] [place] [address] [place] Chloride [Moles/Vol] 97 mmol/L Low 98-107 [facility] Comment on above: Performed By: #### C BC, MG, PHOS, CMP #### [address] CO2 [Moles/Vol] 23.2 mmol/L Normal 21.0-31.0 [facility] Comment on above: Performed By: #### C BC, MG, PHOS, CMP #### [facility] [address] [place] [address] [place] Creatinine [Mass/Vol] 0.82 mg/dL Normal 0.70-1.30 [facility] Comment on above: Performed By: #### C BC, MG, PHOS, CMP #### [place] [address] [place] Creatinine Clr Calc Pharmacy 178.94 Normal [facility] Comment on above: Result Comment: PERF ORMED BY: [place] [address] PATHOLOGIST PARASITOLOGY TEACHER MARLYN MCKEON M.D. Performed By: #### C BC, MG, PHOS, CMP #### [place] [address] [place] GFR/1.73 sq M.predicted MDRD (S/P/Bld) [Vol rate/Area] mL/min/{1.73_m2} Normal [facility] Comment on above: Performed By: #### C BC, MG, PHOS, CMP #### [address] Glucose [Mass/Vol] 342 mg/dL High 70-100 [facility] Comment on above: Result Comment: [place] Glucose Reference Range is dependent on time and content of last meal. Glucose of more than 200 mg/dL in a nonstressed, ambulatory subject supports the diagnosis of Diabetes Mellitus. ADA recommended reference range Performed By: #### C BC, MG, PHOS, CMP #### [facility] [address] Potassium [Moles/Vol] 4.6 mmol/L Normal 3.5-5.1 [facility] Comment on above: Performed By: #### C BC, MG, PHOS, CMP #### [facility] [address] Sodium [Moles/Vol] 133 mmol/L Low 136-145 [facility] Comment on above: Performed By: #### C BC, MG, PHOS, CMP #### [facility] [address] Urea nitrogen [Mass/Vol] 23 mg/dL Normal 7-25 [facility] Comment on above: Performed By: #### C BC, MG, PHOS, CMP #### [facility] [address] Borrelia burgdorferi IgG+IgM Ab [Presence] in Serum by ImmunoassayOrdered By: Danial Horan on 03-23-2024 B. burgdorferi IgG+IgM IA Ql (S) Negative Negative [facility] Comment on above: Lyme antibodies not detected. Reflex testing is notindicated.No laboratory evidence of infection with B. burgdorferi(Lyme disease). Negative results may occur in patientsrecently infected (less than or equal to 14 days) with B.burgdorferi. If recent infection is suspected, repeattesting on a new sample collected in 7 to 14 days isrecommended.Performed at: [facility] [id number] Director: Gabriel Chan PhD, Phone: [phone] C reactive protein [Mass/vol ume] in Serum or PlasmaOrdered By: Danial Horan on 03-23-2024 CRP [Mass/Vol] < 0.5 mg/dL 0.0-0.5 [facility] C-Reactive Proteinon 024 CRP [Mass/Vol] mg/L Normal 0.0-0.5 [facility] Comment on above: Result Comment: PERF ORMED BY: [place] [address] PATHOLOGIST PARASITOLOGY TEACHER MARLYN MCKEON M.D. Performed By: #### G LULS #### Point of Care testing , Complete Blood Count Auto Di ffon 03-23-2024 Basophils (Bld) [#/Vol] 0.1 10*3/uL Normal 0.0-0.2 [facility] Comment on above: Result Comment: PERF ORMED BY: [place] [address] PATHOLOGIST PARASITOLOGY TEACHER MARLYN MCKEON M.D. Performed By: #### C BC, MG, PHOS, CMP #### [address] Basophils/100 WBC (Bld) 0.5 % Normal . [facility] Comment on above: Performed By: #### C BC, MG, PHOS, CMP #### [address] Eosinophils (Bld) [#/Vol] 0.0 10*3/uL Normal 0.0-0.45 [facility] Comment on above: Performed By: #### C BC, MG, PHOS, CMP #### [address] Eosinophils/100 WBC (Bld) 0.0 % Normal . [facility] Comment on above: Performed By: #### C BC, MG, PHOS, CMP #### [address] Erythrocyte distribution width (RBC) [Ratio] 13.9 % Normal 12.0-14.8 [facility] Comment on above: Performed By: #### C BC, MG, PHOS, CMP #### [address] Hematocrit (Bld) [Volume fraction] 47.0 % Normal 38.8-50.0 [facility] Comment on above: Performed By: #### C BC, MG, PHOS, CMP #### [address] Hemoglobin (Bld) [Mass/Vol] 15.9 g/dL Normal 13.0-17.0 [facility] Comment on above: Performed By: #### C BC, MG, PHOS, CMP #### [address] Lymphocytes (Bld) [#/Vol] 1.4 10*3/uL Normal 1.00-4.8 [facility] Comment on above: Performed By: #### C BC, MG, PHOS, CMP #### [address] Lymphocytes/100 WBC (Bld) 8.2 % Normal . [facility] Comment on above: Performed By: #### C BC, MG, PHOS, CMP #### [address] MCH (RBC) [Entitic mass] 29.8 pg Normal 27.5-35.2 [facility] Comment on above: Performed By: #### C BC, MG, PHOS, CMP #### [address] MCV (RBC) [Entitic vol] 88.1 fL Normal 83.5-101 [facility] Comment on above: Performed By: #### C BC, MG, PHOS, CMP #### [address] Mean Corpuscular HGB Conc 33.8 g/dL Normal 32.5-35.6 [facility] Comment on above: Performed By: #### C BC, MG, PHOS, CMP #### [address] Monocyte Distribution Width Not performed Normal 0.00-20.00 [facility] Comment on above: Result Comment: Unab le to calculate MDW because the Absolute Monocyte Count is <0.8. Performed By: #### C BC, MG, PHOS, CMP #### [address] Monocytes (Bld) [#/Vol] 0.2 10*3/uL Normal 0.0-0.8 [facility] Comment on above: Performed By: #### C BC, MG, PHOS, CMP #### [address] Monocytes/100 WBC (Bld) 1.0 % Normal . [facility] Comment on above: Performed By: #### C BC, MG, PHOS, CMP #### [address] Neutrophils (Bld) [#/Vol] 15.5 10*3/uL High 1.8-7.7 [facility] Comment on above: Performed By: #### C BC, MG, PHOS, CMP #### [address] Neutrophils/100 WBC (Bld) 90.3 % Normal . [facility] Comment on above: Performed By: #### C BC, MG, PHOS, CMP #### [address] NRBC% 0.1 /100{WBC} Normal 0-0.5 [facility] Comment on above: Performed By: #### C BC, MG, PHOS, CMP #### [address] Platelet mean volume (Bld) [Entitic vol] 7.4 fL Normal 6.6-10.1 [facility] Comment on above: Performed By: #### C BC, MG, PHOS, CMP #### [address] Platelets (Bld) [#/Vol] 381 10*3/uL Normal 150-450 [facility] Comment on above: Performed By: #### C BC, MG, PHOS, CMP #### [place] [address] [place] RBC (Bld) [#/Vol] 5.33 10*6/uL Normal 3.90-5.60 [facility] [facility] Comment on above: Performed By: #### C BC, MG, PHOS, CMP #### [place] [address] [place] WBC (Bld) [#/Vol] 17.1 10*3/uL High 4.1-10.5 [facility] Comment on above: Performed By: #### C BC, MG, PHOS, CMP #### [place] [address] [place] Creatine Kinaseon 03-23-2024 CK [Catalytic activity/Vol] 37 U/L Normal 30-223 [facility] Comment on above: Performed By: #### C BC, MG, PHOS, CMP #### [address] Creatine kinase [Enzymatic a ctivity/volume] in Serum or PlasmaOrdered By: Danial Horan on 03-23-2024 CK [Catalytic activity/Vol] 34 U/L Normal 30-223 [facility] Comment on above: Result Comment: PERF ORMED BY: [place] [address] PATHOLOGIST PARASITOLOGY TEACHER MARLYN MCKEON M.D. Performed By: #### G LULS #### Point of Care testing , ECG 12 lead ECGon 03-23-[address] [facility] [place] [address] [place] [address] Electrocardiograph Report Signed Patient: Bhumika Umana JR MR#: [id number] : 1975 Acct:[id number] Age/Sex: 48 / M ADM Date: 03/23/24 Loc: ER Room: Type: [facility] ER Attending Dr: Ordering Provider: Gale [...] ECGs available Confirmed by Gale Gonzales MD ([id number]) on 03/23/2024 2:06:14 AM Referred By: Electronically Signed By: Gale Gonzales MD Transcribed By: MUS Signed By Gale Gonzales MD 02/26 03/20 0206 Normal [facility] Erythrocyte Sedimentation Ra devaughn 03-23-2024 ESR (Bld) [Velocity] 14 mm/h Normal 0-14 [facility] Comment on above: Result Comment: PERF ORMED BY: [facility] [address] [facility]. [place] [id number] PATHOLOGIST PARASITOLOGY TEACHER MARLYN MCKEON M.D. Performed By: #### G MARGARITA #### Point of Care testing , Erythrocyte sedimentation ra te by Photometric methodOrdered By: Danial Horan on 03-23-2024 ESR Photometric method (Bld) [Velocity] 14 mm/hr 0-14 [facility] Folate [Mass/volume] in Seru m or PlasmaOrdered By: Bola Garcia on 03-23-2024 Folate [Mass/Vol] 13.0 ng/mL >5.9 [facility] Comment on above: Folate reference ran ge: >5.9 ng/mlThe WHO technical consultation on folate and vitamin [id number] has determined that folate concentrations lessthan 4 ng/ml are considered deficient. Glucose Poct Glucometerson 0 03-23-2024 Commemt1 Glu2: Cleaned Meter Normal [facility] Comment on above: Result Comment: PERF ORMED BY: [address] [place] [id number] PATHOLOGIST PARASITOLOGY TEACHER MARLYN MCKEON M.D. Performed By: #### C BC, MG, PHOS, CMP #### [facility] [address] [place], [place] [id number] [facility] Glucose [Mass/Vol] 166 mg/dL Normal [facility] Comment on above: Result Comment: Benedict om Glucose Reference Range is dependent on time and content of last meal. Glucose of more than 200 mg/dL in a nonstressed, ambulatory subject supports the diagnosis of Diabetes Mellitus. Performed By: #### C BC, MG, PHOS, CMP #### [facility] [address] [place] [id number] [place] Glucose [Mass/Vol] 133 mg/dL Normal [facility] Comment on above: Result Comment: Benedict om Glucose Reference Range is dependent on time and content of last meal. Glucose of more than 200 mg/dL in a nonstressed, ambulatory subject supports the diagnosis of Diabetes Mellitus. PERFORMED BY: [facility] [address] [facility] [place] [id number] PATHOLOGIST PARASITOLOGY TEACHER MARLYN MCKEON M.D. Performed By: #### G LULS #### Point of Care testing , Glucose [Mass/Vol] 180 mg/dL Normal [facility] Comment on above: Result Comment: Benedict om Glucose Reference Range is dependent on time and content of last meal. Glucose of more than 200 mg/dL in a nonstressed, ambulatory subject supports the diagnosis of Diabetes Mellitus. PERFORMED BY: [place] [address] PATHOLOGIST PARASITOLOGY TEACHER MARLYN MCKEON M.D. Performed By: #### G LULS #### Point of Care testing , Glucose [Mass/Vol] 216 mg/dL Normal [facility] Comment on above: Result Comment: Benedict Glucose Reference Range is dependent on time and content of last meal. Glucose of more than 200 mg/dL in a nonstressed, ambulatory subject supports the diagnosis of Diabetes Mellitus. PERFORMED BY: [place] [address] PATHOLOGIST PARASITOLOGY TEACHER MARLYN MCKEON M.D. Performed By: #### G LULS #### Point of Care testing , Commemt1 Glu2: Cleaned Meter Normal [facility] Comment on above: Result Comment: PERF ORMED BY: [place] [address] PATHOLOGIST PARASITOLOGY TEACHER MARLYN MCKEON M.D. Performed By: #### C BC, MG, PHOS, CMP #### [facility] [address] [place] [address] Glucose [Mass/Vol] 362 mg/dL Normal [facility] Comment on above: Result Comment: Benedict om Glucose Reference Range is dependent on time and content of last meal. Glucose of more than 200 mg/dL in a nonstressed, ambulatory subject supports the diagnosis of Diabetes Mellitus. Performed By: #### C BC, MG, PHOS, CMP #### [facility] [address] [place] [address] Glucose mean value [Mass/vol ume] in Blood Estimated from glycated hemoglobinOrdered By: Bola Garcia on 03-23-2024 Average glucose Estimated from glycated hemoglobin (Bld) [Mass/Vol] 166 mg/dL [facility] Hemoglobin A1c percentageOrd ered By: Bola Garcia on 03-23-2024 HbA1c (Bld) [Mass fraction] 7.4 % High 4.3-5.6 [facility] Comment on above: Increased risk for d iabetes: 5.7 - 6.4diabetes: >6.4glycemic control for adults with diabetes: <7.0 Result Comment: Incr eased risk for diabetes: 5.7 - 6.4 diabetes: >6.4 glycemic control for adults with diabetes: <7.0 Performed By: #### G LULS #### Point of Care testing , Lyme, Total Ab with Reflexon 03-23-2024 Lyme Total Antibody Negative Normal Negative [facility] Comment on above: Result [...] to 14 days is recommended. Performed at: [facility] [id number] Corporate [employer] Consultant: Gabriel Chan PhD, Phone: [phone] PERFORMED BY: [place] [address] PATHOLOGIST PARASITOLOGY TEACHER MARLYN MCKEON M.D. Performed By: #### G LULS #### Point of Care testing , MR head/brain wo/w conon MR head/brain wo/w con [facility] [place] [address] MRI Report Signed Patient: Bhumika Umana JR MR#: [id number] : 1975 Acct:[id number] Age/Sex: 48 / M ADM Date: 03/23/24 Loc: Room: [address] [place] [address] Type: ADM IN Attending Dr: Elder Iyer [...] Gonzales Jr., D.O.03/23/2024 10:46 AM Dictation Location: [place] [address] Transcribed By: [facility] 03/23/24 1046 Dictated By: Rene Gonzales Jr, DO 03/23/24 1039 Signed By: 03/23/24 1046 Normal [facility] Monocyte distribution width [Entitic volume] in Blood by AutomatedOrdered By: Gale Gonzales on 03-23-2024 Monocyte distribution width Auto (Bld) [Entitic vol] Test not performed % 0.00-20.00 [facility] Comment on above: Unable to calculate MDW because the Absolute Monocyte Count is <0.8. Partial Thromboplastin Timeo n 03-23-2024 aPTT Coag (Bld) [Time] 22.2 s Low 25.1-36.5 [facility] Comment on above: Result Comment: A he matocrit value greater than 55% may lead to inaccurate results in coagulation testing. Patients having hematocrit values >55% require a special collection tube for coagulation studies. Please contact the laboratory at [phone] for redraw instructions. PERFORMED BY: [place] [address] PATHOLOGIST PARASITOLOGY TEACHER MARLYN MCKEON M.D. Performed By: #### C MG GARCIA PHOS, CMP #### [address] Prothrombin Time INRon 03-23 INR Coag (PPP) [Relative time] 1.0 {INR} Normal [facility] Comment on above: Result [...] #### C MG RADHA PHOS, CMP #### [address] PT Coag (PPP) [Time] 11.7 s Normal 9.0-12.9 [facility] Comment on above: Result Comment: A he matocrit value greater than 55% may lead to inaccurate results in coagulation testing. Patients having hematocrit values >55% require a special collection tube for coagulation studies. Please contact the laboratory at [phone] for redraw instructions. Performed By: #### C MG RADHA PHOS, CMP #### [address] Thyrotropin [Units/volume] i n Serum or PlasmaOrdered By: Bola Garcia on 03-23-2024 TSH Qn 0.48 m[IU]/L Normal 0.45-5.33 [facility] Comment on above: Performed By: #### G LULS #### Point of Care testing , Troponin I High Sensitivityo n 03-23-2024 Troponin I High Sensitivity 3.3 pg/mL Normal 0.0-20.0 [facility] Comment on above: Result Comment: PERF ORMED BY: [place] [address] PATHOLOGIST PARASITOLOGY TEACHER MARLYN MCKEON M.D. Performed By: #### C BC, MG, PHOS, CMP #### [facility] [address] Troponin I.cardiac [Mass/vol ume] in Serum or Plasma by Detection limit <= 0.01 ng/Ordered By: Gale Gonzales on 03-23-2024 Troponin I.cardiac DL <= 0.01 ng/mL [Mass/Vol] 3.3 pg/mL 0.0-20.0 [facility] Vit. B12/Folate Profileon Folate 13.0 ng/mL Normal >5.9 [facility] Comment on above: Result Comment: Sarah te reference range: >5.9 ng/ml The WHO technical consultation on folate and vitamin b12 deficiencies has determined that folate concentrations less than 4 ng/ml are considered deficient. Performed By: #### G LULS #### Point of Care testing , Vitamin B12 ser/plasOrdered By: Bola Garcia on 03-23-2024 Cobalamin (Vitamin B12) [Mass/Vol] 416 pg/mL Normal 180-914 [facility] Comment on above: Performed By: #### G LULS #### Point of Care testing , Vitamin D 25 Hydroxy Totalon 03-23-2024 Vitamin D 25 Hydroxy Total 21.6 ng/mL Low 30-100 [facility] Comment on above: Result Comment: KAYLEY MIN D STATUS 25(OH)VITAMIN D RANGE (ng/mL) Deficient <20 Insufficient 20 to <30 Sufficient 30 to 100 Reference: Titi MF,Kalee NC, Brett BROOKS, et al. Evaluation,treatment, and prevention of vitamin D deficiency; an Endocrine Society clinical practice guideline. JCEM. 2010; 96(7):1911-30. PERFORMED BY: [facility] [address] [place] [address] PATHOLOGIST PARASITOLOGY TEACHER MARLYN MCKEON M.D. Performed By: #### G LULS #### Point of Care testing , Vitamin D+Metabolites [Mass/ volume] in Serum or PlasmaOrdered By: Bola Garcia on 03-23-2024 Vitamin D+Metabolites [Mass/Vol] 21.6 ng/mL Low 30-100 [facility] Comment on above: VITAMIN D STATUS 25( [place])VITAMIN D RANGE (ng/mL) Deficient <20 Insufficient 20 to <30Sufficient 30 to 100Reference: Titi MF,Kalee NC, Brett BROOKS, et al. Evaluation,treatment, and prevention of vitamin D deficiency; an Endocrine Society clinical practice guideline. JCEM. 2010; 96(7):1911-30. XR chest 2V*on 03-23-2024 XR chest 2V* [facility] [place] [address] [place] [address] XRay Report Signed Patient: Bhumika Umana JR MR#: [id number] : 1975 Acct:[id number] Age/Sex: 48 / M ADM Date: 03/23/24 Loc: Room: [address] [place] [address] Type: ADM IN Attending Dr: Elder Iyer [...] Gonzales Jr., D.O.03/23/2024 9:33 AM Dictation Location: [place] [address] Transcribed By: [facility] 03/23/24 0933 Dictated By: Rene Gonzales Jr, DO 03/23/24 0933 Signed By: 03/23/24 0933 Normal [facility] XR ELBOW RT MIN [...] JAKOB MCGHEE Date: 2022-04-23 12:40 Normal [facility] CBC AUTO DIFFon 01-11-2022 BASO # 0.0 103/ul Normal 0.0-0.1 [facility] Comment on above: Performed By: #### C BC #### [facility] Laboratory [address] [place] [address] Dr. Sera Quach Basophils/100 WBC (Bld) 0.4 % Normal 0.2-2.0 [facility] Comment on above: Performed By: #### C BC #### [facility] Laboratory [address] [place] [address] Dr. Sera Quach EO # 0.3 103/ul Normal 0.0-0.7 [facility] Comment on above: Performed By: #### C BC #### [facility] Laboratory [address] [place] [address] Dr. Sera Quach Eosinophils/100 WBC (Bld) 2.8 % Normal 0.9-7.0 [facility] Comment on above: Performed By: #### C BC #### [facility] Laboratory [address] [place] [address] Dr. Sera Quach Erythrocyte distribution width (RBC) [Ratio] 13.1 % Normal 11.0-15.0 [facility] Comment on above: Performed By: #### C BC #### [facility] [address] [place] [address] Dr. Sera Quach Hematocrit (Bld) [Volume fraction] 47.3 % Normal 42.0-54.0 [facility] Comment on above: Performed By: #### C BC #### [facility] Laboratory [address] [place] [address] Dr. Sera Quach Hemoglobin (Bld) [Mass/Vol] 15.2 g/dL Normal 14.0-18.0 [facility] Comment on above: Performed By: #### C BC #### [facility] [address] [place] [address] Dr. Sera Quach IG # 0.03 10e3/ul Normal 0.00-0.03 [facility] Comment on above: Performed By: #### C BC #### [facility] [address] [place] [address] Dr. Sera Quach IG % 0.3 % Normal 0.0-0.5 [facility] Comment on above: Performed By: #### C BC #### [facility] [address] [place] [address] Dr. Sera Quach LYMPH # 2.3 103/ul Normal 1.2-3.8 [facility] Comment on above: Performed By: #### C BC #### [facility] [address] [place] [address] Dr. Sera Quach Lymphocytes/100 WBC (Bld) 25.5 % Normal 20.5-60.0 [facility] Comment on above: Performed By: #### C BC #### [facility] [address] [place] [address] Dr. Sera Quach MANUAL DIFF REQ NO Normal [facility] Comment on above: Performed By: #### C BC #### [facility] [address] [place] [address] Dr. Sera Quach MCH (RBC) [Entitic mass] 29.2 pg Normal 25.9-34.0 [facility] Comment on above: Performed By: #### C BC #### [facility] [address] [place] [address] Dr. Sera Qucah MCHC (RBC) [Mass/Vol] 32.1 g/dL Normal 29.9-35.2 [facility] Comment on above: Performed By: #### C BC #### [facility] [address] [place] [address] Dr. Sera Quach MCV (RBC) [Entitic vol] 91.0 fL Normal 80.0-94.0 [facility] Comment on above: Performed By: #### C BC #### [facility] [address] [place] [address] Dr. Sera Quach MONO # 0.7 103/ul Normal 0.3-0.8 [facility] Comment on above: Performed By: #### C BC #### [facility] [address] [place] [address] [address] Sera Quach Monocytes/100 WBC (Bld) 7.1 % Normal 1.7-12.0 [facility] Comment on above: Performed By: #### C BC #### [facility] [address] [place] [address] [address] Sera Quach NEUT # 5.9 103/ul Normal 1.4-6.5 [facility] Comment on above: Performed By: #### C BC #### [facility] [address] [place] [address] [address] Sera Quach Neutrophils/100 WBC (Bld) 63.9 % Normal 43.0-75.0 [facility] Comment on above: Performed By: #### C BC #### [facility] [address] [place] [address] Dr. Sera Quach Platelet mean volume (Bld) [Entitic vol] 9.3 fL Critically low 9.5-13.5 [facility] Comment on above: Performed By: #### C BC #### [facility] [address] [place] [address] Dr. Sera Quach PLT 316 103/ul Normal 150-450 [facility] Comment on above: Performed By: #### C BC #### [facility] [address] [place] [address] Dr. Sera Quach RBC 5.20 106/ul Normal 4.70-6.10 [facility] Comment on above: Performed By: #### C BC #### [facility] [address] [place] [address] Dr. Sera Quach WBC 9.2 103/ul Normal 4.0-11.0 [facility] Comment on above: Performed By: #### C BC #### [facility] [address] [place] [address] Dr. Sera Quach GLYCOHEMOGLOBIN A1Con 2021 ADA RECOMMENDATION SEE BELOW Normal [facility] Comment on above: Result Comment: ADA RECOMMENDED LIMIT 4.0 - 6.0 ADA THERAPEUTIC TARGET < 7.0 ACTION SUGGESTED > 7.0 Performed By: #### A 1C #### [facility] [address] [place] [address] Dr. Sera Quach Glucose [Mass/Vol] 209 mg/dL Normal [facility] Comment on above: Performed By: #### A 1C #### [facility] [address] [place] [address] Dr. Sera Quach HbA1c (Bld) [Mass fraction] 8.9 % Critically high 4.5-6.2 [facility] Comment on above: Performed By: #### A 1C #### [facility] [address] [place] [address] Dr. Sera Quach LIPID PROFILEon 01-11-2022 CHOL-HDL RATIO NORM SEE BELOW Normal [facility] Comment on above: Result Comment: 3.3 - 4.4 LOW RISK 4.4 - 7.1 AVERAGE RISK 7.1 - 11.0 MODERATE RISK >11.0 HIGH RISK Performed By: #### C MP, LIPID #### [facility] [address] [place] [address] Dr. Sera Quach Cholesterol [Mass/Vol] 154 mg/dL Normal <=200 [facility] Comment on above: Performed By: #### C MP, LIPID #### [facility] [address] [place] [address] Dr. Sera Quach Cholesterol in HDL [Mass/Vol] 39 mg/dL Critically low 40-60 [facility] Comment on above: Performed By: #### C MP, LIPID #### [facility] [address] [place] [address] Dr. Sera Quach Cholesterol in LDL [Mass/Vol] 98.0 mg/dL Normal [facility] Comment on above: Performed By: #### C MP, LIPID #### [facility] [address] [place] [address] Dr. Sera Quach Cholesterol.total/Cho lesterol in HDL [Mass ratio] 3.9 {ratio} Normal [facility] Comment on above: Performed By: #### C MP, LIPID #### [facility] [address] [place] [address] [address] Sera Quach HDL NORMAL > or = 60 mg/dl - LO W CARDIOVASCULAR RISK <40 mg/dl - HIGH CARDIOVASCULAR RISK Normal [facility] Comment on above: Performed By: #### C MP, LIPID #### [facility] [address] [place] [address] [address] Sera Quach LDL CALC NORMAL SEE BELOW Normal [facility] Comment on above: Result Comment: <100 mg/dl OPTIMAL 100 - 129 mg/dl NEAR OR ABOVE OPTIMAL 130 - 159 mg/dl BORDERLINE HIGH 160 - 189 mg/dl HIGH >190 mg/dl VERY HIGH Performed By: #### C MP, LIPID #### [facility] [address] [place] [address] [address] Sera Quach Triglyceride [Mass/Vol] 85 mg/dL Normal <=150 [facility] Comment on above: Performed By: #### C MP, LIPID #### [facility] [address] [place] [address] Dr. Sera Quach VLDL CALC 17.0 mg/dL Normal [facility] Comment on above: Performed By: #### C MP, LIPID #### [facility] [address] [place] [address] Dr. Sera Quach MICROALBUMIN, RAND URon 12-26 mALB 1.3 mg/L Normal <=30.0 [facility] Comment on above: Performed By: #### M ALBR #### [facility] [address] [place] [address] Dr. Sera Quach PROF 14(COMP METB)on 022 Albumin [Mass/Vol] 3.9 g/dL Normal 3.4-5.0 [facility] Comment on above: Performed By: #### C MP, LIPID #### [facility] [address] [place] [address] Dr. Sera Quach Albumin/Globulin [Mass ratio] 1.1 {ratio} Normal [facility] Comment on above: Performed By: #### C MP, LIPID #### [facility] [address] [place] [address] Dr. Sera Quach ALP [Catalytic activity/Vol] 76 U/L Normal 46-116 [facility] Comment on above: Performed By: #### C MP, LIPID #### [facility] [address] [place] [address] Dr. Sera Quach ALT [Catalytic activity/Vol] 64 U/L Critically high 16-63 [facility] Comment on above: Performed By: #### C MP, LIPID #### [facility] [address] [place] [address] [address] Sera Quach Anion gap [Moles/Vol] 12.7 mmol/L Normal [facility] Comment on above: Performed By: #### C MP, LIPID #### [facility] [address] [place] [address] Dr. Sera Quach AST [Catalytic activity/Vol] 37 U/L Normal 15-37 [facility] Comment on above: Performed By: #### C MP, LIPID #### [facility] [facility] [address] [place] [address] Dr. Sera Quach Bilirubin [Mass/Vol] 0.6 mg/dL Normal 0.2-1.0 [facility] Comment on above: Performed By: #### C MP, LIPID #### [facility] [address] [place] [address] Dr. Sera Quach Calcium [Mass/Vol] 9.0 mg/dL Normal 8.5-10.1 [facility] Comment on above: Performed By: #### C MP, LIPID #### [facility] [address] [place] [address] Dr. Sera Quach Chloride [Moles/Vol] 101 mmol/L Normal 98-107 [facility] Comment on above: Performed By: #### C MP, LIPID #### [facility] [address] [place] [address] Dr. Sera Quach CO2 [Moles/Vol] 27.6 mmol/L Normal 21.0-32.0 [facility] Comment on above: Performed By: #### C MP, LIPID #### [facility] [address] [place] [address] Dr. Sera Quach Creatinine [Mass/Vol] 0.75 mg/dL Normal 0.70-1.30 [facility] Comment on above: Performed By: #### C MP, LIPID #### [facility] [address] [address] [address] Sera Quach EGFR-AF BELGIAN >60 Normal >=60 [facility] Comment on above: Performed By: #### C MP, LIPID #### [facility] [address] [address] [address] Sera Quach EGFR-NON AF BELGIAN >60 Normal >=60 [facility] Comment on above: Performed By: #### C MP, LIPID #### [facility] [address] [address] [address] Sera Quach Globulin (S) [Mass/Vol] 3.6 g/dL Normal [facility] Comment on above: Performed By: #### C MP, LIPID #### [facility] [address] [place] [address] Dr. Sera Quach Glucose [Mass/Vol] 184 mg/dL Critically high 74-106 [facility] Comment on above: Performed By: #### C MP, LIPID #### [facility] [address] [address] [address] Sera Quach Potassium [Moles/Vol] 4.3 mmol/L Normal 3.5-5.1 [facility] Comment on above: Performed By: #### C MP, LIPID #### [facility] [address] [place] [address] Dr. Sera Quach Protein [Mass/Vol] 7.5 g/dL Normal 6.4-8.2 [facility] Comment on above: Performed By: #### C MP, LIPID #### [facility] [address] [address] [address] Sera Quach Sodium [Moles/Vol] 137 mmol/L Normal 136-145 [facility] Comment on above: Performed By: #### C MP, LIPID #### [facility] [address] [address] [address] Sera Quach Urea nitrogen [Mass/Vol] 12.0 mg/dL Normal 7.0-18.0 [facility] Comment on above: Performed By: #### C MP, LIPID #### [facility] [address] [address] [address] Sera Quach Urea nitrogen/Creatinine [Mass ratio] 16.0 mg/mg Normal [facility] Comment on above: Performed By: #### C MP, LIPID #### [facility] [address] [address] [address] Sera Quach UA RANDOM W/MICROSCOPICon BACTERIA NONE SEEN Normal NONE SEEN [facility] Comment on above: Performed By: #### U AMIC #### [facility] [address] [place] [address] Dr. Sera Quach Bilirubin Ql (U) Negative Normal NEGATIVE [facility] Comment on above: Performed By: #### U AMIC #### [facility] [address] [place] [address] Dr. Sera Quach CAST NONE SEEN Normal NONE SEEN [facility] Comment on above: Performed By: #### U AMIC #### [facility] [address] [place] [address] Dr. Sera Quach Clarity (U) CLOUDY Abnormal CLEAR [facility] Comment on above: Performed By: #### U AMIC #### [facility] [address] [place] [address] Dr. Sera Quach Color (U) YELLOW Normal YELLOW [facility] Comment on above: Performed By: #### U AMIC #### [facility] [address] [address] [address] Sera Quach Crystals LM Nom (Urine sed) SEEN Abnormal NONE SEEN [facility] Comment on above: Performed By: #### U AMIC #### [facility] [address] [place] [address] Dr. Sera Quach Epithelial cells LM Ql (Urine sed) RARE Normal NONE SEEN /RARE [facility] Comment on above: Performed By: #### U AMIC #### [facility] [address] [place] [address] Dr. Sera Quach Glucose Ql (U) Negative Normal NEGATIVE [facility] Comment on above: Performed By: #### U AMIC #### [facility] [address] [address] [address] Sera Quach Hemoglobin Ql (U) Negative Normal NEGATIVE [facility] Comment on above: Performed By: #### U AMIC #### [facility] [address] [address] [address] Sera Quach Ketones Ql (U) Negative Normal NEGATIVE [facility] Comment on above: Performed By: #### U AMIC #### [facility] [address] [address] [address] Sera Quach LEUKOCYTES Negative Normal NEGATIVE [facility] Comment on above: Performed By: #### U AMIC #### [facility] [address] [address] [address] Sera Quach MUCOUS NONE SEEN Normal NONE SEEN [facility] Comment on above: Performed By: #### U AMIC #### [facility] [address] [address] [address] Sera Quach Nitrite Ql (U) Negative Normal NEGATIVE [facility] Comment on above: Performed By: #### U AMIC #### [facility] [address] [address] [address] Sera Quach pH (U) 5.5 [pH] Normal 5-9 [facility] Comment on above: Performed By: #### U AMIC #### [facility] [address] [address] [address] Sera Quach RBC NONE SEEN Abnormal 0-2 [facility] Comment on above: Performed By: #### U AMIC #### [facility] [address] [place] [address] Dr. Sera Quach SPEC GRAVITY 1.025 Normal 1.005-<=1.02 5 [facility] Comment on above: Performed By: #### U AMIC #### [facility] [address] [place] [address] Dr. Sera Quach UA PROTEIN Negative Normal NEGATIVE/ TRACE [facility] Comment on above: Performed By: #### U AMIC #### [facility] [address] [address] [address] Sera Quach Urobilinogen Qn (U) 1.0 {Jessika'U}/dL Normal 0.2 - 1. 0 [facility] Comment on above: Performed By: #### U AMIC #### [facility] [address] [address] [address] Sera Quach WBC 0-2 Abnormal NONE SEEN [facility] Comment on above: Performed By: #### U AMIC #### [facility] [address] [address] [address] Sera Quach GLYCOHEMOGLOBIN A1Con 2020 ADA RECOMMENDATION ADA THERAPEUTIC TARG ET 6.0 - 7.0 ACTION SUGGESTED > 7.0 Normal [facility] Comment on above: Performed By: #### A 1C #### [facility] [address] [place] [address] Dania Ev Glucose [Mass/Vol] 174 mg/dL Normal [facility] Comment on above: Performed By: #### A 1C #### [facility] [address] [address] Dania Ev HbA1c (Bld) [Mass fraction] 7.7 % Critically high <=6.0 [facility] Comment on above: Performed By: #### A 1C #### [facility] [address] [address] Dania Ev PROF CHEM 8 (BAS METB)on Anion gap [Moles/Vol] 9.0 mmol/L Normal [facility] Comment on above: Performed By: #### B MP #### [facility] [address] [id number] Dania Ev Calcium [Mass/Vol] 8.8 mg/dL Normal 8.4-10.2 [facility] Comment on above: Performed By: #### B MP #### [facility] [address] [id number] Dania Ev Chloride [Moles/Vol] 102 mmol/L Normal 98-107 [facility] Comment on above: Performed By: #### B MP #### [facility] [address] [place], [place] [address] Dania Ev CO2 [Moles/Vol] 29.1 mmol/L Normal 22.0-30.0 [facility] Comment on above: Performed By: #### B MP #### [facility] [address] [id number] Dania Ev Creatinine [Mass/Vol] 0.73 mg/dL Normal 0.66-1.25 [facility] Comment on above: Performed By: #### B MP #### [facility] [address] [place], [place] [address] Dania Ev EGFR-AF BELGIAN >60 Normal >=60 [facility] Comment on above: Performed By: #### B MP #### [facility] [address] [id number] Dania Ev EGFR-NON AF BELGIAN >60 Normal >=60 [facility] Comment on above: Performed By: #### B MP #### [facility] [address] [id number] Dania Ev Glucose [Mass/Vol] 141 mg/dL Critically high 74-106 [facility] Comment on above: Performed By: #### B MP #### [facility] [address] [id number] Dania Ev Potassium [Moles/Vol] 4.1 mmol/L Normal 3.4-5.0 [facility] Comment on above: Performed By: #### B MP #### [facility] [address] [phone] Dania Ev Sodium [Moles/Vol] 136 mmol/L Critically low 137-145 [facility] Comment on above: Performed By: #### B MP #### [facility] [address] [place], [place] [id number] Dania Ev Urea nitrogen [Mass/Vol] 9.0 mg/dL Normal 9.0-20.0 [facility] Comment on above: Performed By: #### B MP #### [facility] [address] [phone] Dania Ev Urea nitrogen/Creatinine [Mass ratio] 12.3 mg/mg Normal [facility] Comment on above: Performed By: #### B MP #### [facility] [address] [address] Dania Carreno Vital Signs Date Time Vital Sign Value Performing Clinician Facility 07-22-2024 18:34-0500 Body height 190.5 cm Cecy Hernandez SURGICAL TECH Work Phone: [facility] 07-22-2024 18:34-0500 Body mass index (BMI) [Ratio] 39.47 kg/m2 Cecypa Caballeroz SURGICAL TECH Work Phone: [facility] 07-22-2024 18:34-0500 Body temperature 98.01 [degF] Cecy Caballeroz SURGICAL TECH Work Phone: [facility] 07-22-2024 18:34-0500 Body weight 143.25 kg Cecy Caballeroz SURGICAL TECH Work Phone: [facility] 07-22-2024 18:34-0500 Diastolic blood pressure 86 mm[Hg] Cecy Hernandez SURGICAL TECH Work Phone: [facility] 07-22-2024 18:34-0500 Heart rate 95 /min Cecyap Caballeroz SURGICAL TECH Work Phone: [facility] 07-22-2024 18:34-0500 SaO2% (BldA) [Mass fraction] 96 % Cecyap Gordonfroylanrodolfo SURGICAL TECH Work Phone: [facility] 07-22-2024 18:34-0500 Systolic blood pressure 120 mm[Hg] Cecy Caballerorodolfo SURGICAL TECH Work Phone: [facility] 07-10-2024 09:46-0500 Body height 190.5 cm Daerk Valdovinos MD Work Phone: [facility] 07-10-2024 09:46-0500 Body mass index (BMI) [Ratio] 39.9 kg/m2 Darek Valdovinos MD Work Phone: [facility] 07-10-2024 09:46-0500 Body weight 144.8 kg Darek Valdovinos MD Work Phone: [facility] 07-10-2024 09:46-0500 Diastolic blood pressure 79 mm[Hg] Darek Valdovinos MD Work Phone: [facility] 07-10-2024 09:46-0500 Heart rate 78 /min Darek Valdovinos MD Work Phone: [facility] 07-10-2024 09:46-0500 Systolic blood pressure 139 mm[Hg] Darek Valdovinos MD Work Phone: [facility] 06-22-2024 19:45-0400 Body height 190.5 cm Hector Napoles MD Work Phone: [facility] 06-22-2024 19:45-0400 Body mass index (BMI) [Ratio] 40.62 kg/m2 Hector Napoles MD Work Phone: [facility] 06-22-2024 19:45-0400 Body weight 147.42 kg Hector Napoles MD Work Phone: [facility] 06-22-2024 19:44-0400 Body temperature 99.1 [degF] Hector Napoles MD Work Phone: [facility] 06-22-2024 19:44-0400 Diastolic blood pressure 77 mm[Hg] Hector Napoles MD Work Phone: [facility] 06-22-2024 19:44-0400 Heart rate 98 /min Hector Napoles MD Work Phone: [facility] 06-22-2024 19:44-0400 Respiratory rate 16 /min Hector Napoles MD Work Phone: [facility] 06-22-2024 19:44-0400 SaO2% (BldA) [Mass fraction] 98 % Hector Napoles MD Work Phone: [facility] 06-22-2024 19:44-0400 Systolic blood pressure 167 mm[Hg] Hector Napoles MD Work Phone: [facility] 06-18-2024 22:15-0400 Heart rate 76 /[facility] 06-18-2024 22:15-0400 Respiratory rate 17 /min [facility] [place] 06-18-2024 22:15-0400 SaO2% (BldA) [Mass fraction] 98 % [facility] 06-18-2024 22:14-0400 Diastolic blood pressure 88 mm[Hg] [facility] 06-18-2024 22:14-0400 Systolic blood pressure 122 mm[Hg] [facility] 06-18-2024 19:22-0400 Body height 190.5 cm [facility] [employer] [facility] 06-18-2024 19:22-0400 Body mass index (BMI) [Ratio] 40.62 kg/m2 [facility] 06-18-2024 19:22-0400 Body weight 147.42 kg [facility] 06-18-2024 19:21-0400 Body temperature 98.4 [degF] [facility] [employer] [facility] 06-12-2024 13:14-0400 Body weight 148.33 kg Lula Cota MD Work Phone: [facility] 06-12-2024 13:14-0400 Diastolic blood pressure 78 mm[Hg] Lula Cota MD Work Phone: [facility] 06-12-2024 13:14-0400 Respiratory rate 18 /min Lula Cota MD Work Phone: [facility] 06-12-2024 13:14-0400 Systolic blood pressure 122 mm[Hg] Lula Cota MD Work Phone: [facility] 03-30-2024 12:00-0400 Body temperature 98 [degF] Cecy Hernandez Work Phone: [facility] 03-30-2024 12:00-0400 Diastolic blood pressure 88 mm[Hg] Cecy Hernandez Work Phone: [facility] 03-30-2024 12:00-0400 Heart rate 80 /min Cecy Aichholz Work Phone: [facility] 03-30-2024 12:00-0400 Respiratory rate 19 /min Cecy Aichholz Work Phone: [facility] 03-30-2024 12:00-0400 SaO2% (BldA) [Mass fraction] 95 % Cecy Aichholz Work Phone: [facility] 03-30-2024 12:00-0400 Systolic blood pressure 140 mm[Hg] Cecy Aichholz Work Phone: [facility] 03-30-2024 02:25-0400 Body height 190.5 cm Cecy Aichholz Work Phone: [facility] 03-30-2024 02:25-0400 Body weight 151.5 kg Cecy Aichholz Work Phone: [facility] 03-30-2024 02:03-0400 Body temperature 98.3 [degF] Cecy Aichholz Work Phone: [facility] 03-30-2024 02:03-0400 Diastolic blood pressure 73 mm[Hg] Cecy Aichholz Work Phone: [facility] 03-30-2024 02:03-0400 Heart rate 62 /min Cecy Aichholz Work Phone: [facility] 03-30-2024 02:03-0400 Respiratory rate 18 /min Cecy Aichholz Work Phone: [facility] 03-30-2024 02:03-0400 SaO2% (BldA) [Mass fraction] 96 % Cecy Aichholz Work Phone: [facility] 03-30-2024 02:03-0400 Systolic blood pressure 133 mm[Hg] Cecy Aichholz Work Phone: [facility] 03-29-2024 22:19-0400 Body height 190.5 cm Cecy Aichholz Work Phone: [facility] 03-29-2024 22:19-0400 Body weight 151.9 kg Cecy Aichholz Work Phone: [facility] 03-25-2024 16:05-0400 Diastolic blood pressure 83 mm[Hg] Cecy Aichholz Work Phone: [facility] 03-25-2024 16:05-0400 Heart rate 86 /min Cecy Aichholz Work Phone: [facility] 03-25-2024 16:05-0400 Respiratory rate 18 /min Cecy Aichholz Work Phone: [facility] 03-25-2024 16:05-0400 SaO2% (BldA) [Mass fraction] 98 % Cecy Aichholz Work Phone: [facility] 03-25-2024 16:05-0400 Systolic blood pressure 120 mm[Hg] Cecy Aichholz Work Phone: [facility] 03-25-2024 09:37-0400 Body temperature 98 [degF] Cecy Aichholz Work Phone: [facility] 03-25-2024 06:32-0400 Body weight 149.5 kg Cecy Aichholz Work Phone: [facility] 03-23-2024 03:31-0400 Body height 190.5 cm Cecy Aichholz Work Phone: [facility] 10-08-2021 13:30-0500 Body height 190.5 cm Yue [address] [employer] Other 10-08-2021 13:30-0500 Body mass index (BMI) [Ratio] 45.12 kg/m2 Yue Pedroza Other [address] [employer] Other 10-08-2021 13:30-0500 Body temperature 96.6 [degF] Yue Pedroza Other [address] [employer] Other 10-08-2021 13:30-0500 Body weight 163.75 kg Yue Pedroza [address] [employer] Other 10-08-2021 13:30-0500 SaO2% (BldA) [Mass fraction] 98 % Yue Pedroza Other [address] [employer] Other Encounters Encounter Date Encounter Type Care Provider Facility Start: 07-30-2024 End: 07-30-2024 Refill Cecy Hernandez SURGICAL TECH Work Phone: [facility] Comment on above: Type 2 diabetes genet itus without complication, without long- term current use of insulin (CMS/HCC) Start: 07-22-2024 End: 07-22-2024 Office outpatient visit 25 minutes Cecy Hernandez SURGICAL TECH Work Phone: [facility] Comment on above: Upper extremity weak [...] 07-22-2024 End: 07-22-2024 Bamboo flowsheet Cecy Hernandez SURGICAL TECH Work Phone: [facility] Start: 07-22-2024 End: 07-22-2024 Bamboo flowsheet Cecy Hernandez SURGICAL TECH Work Phone: [facility] Start: 07-11-2024 End: 07-11-2024 Social Work Marvin Maldonado [employer] DIRECTOR Primary Care Social Work Comment on above: Financial difficulty (Primary Dx) Start: 07-10-2024 End: 07-10-2024 Office outpatient new 45 minutes Darek Valdovinos MD Work Phone: Neurology Comment on above: Brachial plexopathy (Primary Dx); Obesity, Class II, BMI 35-39.9 Start: 07-10-2024 End: 07-10-2024 ambulatory DAREK VALDOVINOS Facility:[facility] Start: 06-27-2024 End: 06-27-2024 Refill Cecy Hernandez SURGICAL TECH Work Phone: [facility] Comment on [...] Start: 06-24-2024 End: 06-26-2024 ambulatory LEANAAMMAD ABDELHALEEM QUAKER ALAMER Facility:[facility] Start: 06-24-2024 End: 06-25-2024 Clinisync Result Encounter Generic External Data Provider [facility] External [facility] Unsolicited Start: 06-24-2024 End: 06-25-2024 Clinisync Result Encounter Generic External Data Provider [facility] External Department Unsolicited Start: 06-22-2024 End: 06-22-2024 Emergency department patient visit Hector Napoles MD Work Phone: [facility] Start: 06-18-2024 End: 06-18-2024 Emergency department patient visit [facility] Start: 06-12-2024 End: 06-12-2024 Office outpatient visit 25 minutes Lula Cota MD Work Phone: [facility] Comment on above: Primary osteoarthrit is of both hands (Primary Dx); Myopathy; Diabetic cheirarthropathy (CMS-HCC) Start: 06-12-2024 End: 06-12-2024 ambulatory [facility] Start: 06-07-2024 End: 06-07-2024 ambulatory [facility] Start: 05-29-2024 End: 05-29-2024 Refill Cecy Hernandez SURGICAL TECH Work Phone: [facility] Comment on above: Type 2 diabetes genet itus without complication, without long- term current use of insulin (CMS/HCC); Type 2 diabetes mellitus without complications (CMS/HCC); Depression, unspecified (CMS/HCC); Other chronic pain Start: 05-28-2024 End: 05-28-2024 Clinisync Result Encounter Cecy David SURGICAL TECH Work Phone: [facility] Unsolicited Start: 05-28-2024 End: 05-28-2024 Clinisync Result Encounter Cecy David SURGICAL TECH Work Phone: [facility] Unsolicited Start: 05-21-2024 End: 05-21-2024 ambulatory CECY AICHHOLZ Not Available Start: 05-01-2024 End: 05-01-2024 ambulatory MARYJANE LIANG Not Available Start: 04-17-2024 End: 04-17-2024 ambulatory [facility] Start: 04-04-2024 End: 04-04-2024 ambulatory CECY AICHHOLZ Not Available Start: 04-03-2024 End: 04-03-2024 ambulatory MARYJANE LIANG Not Available Start: 03-30-2024 End: 03-30-[address] Facility:[facility] Start: 03-30-2024 End: 03-30-2024 Evaluation and management of inpatient Cecy Aichholz Work Phone: [facility] [place] [facility] Work Phone: Start: 03-30-2024 End: 03-30-2024 observation encounter Cecy Miranda Aichholz Work Phone: [facility] Work Phone: Start: 03-23-2024 End: 03-25-2024 Evaluation and management of inpatient Cecy Aichholz Work Phone: [facility] [place] [facility] Work Phone: Start: 03-04-2024 End: [...] Physicians Rheumatology Start: 10-11-2023 Refill Cecy Aichholz SURGICAL TECH Work Phone: [facility] Comment on above: Type 2 diabetes genet itus without complication, without long- term current use of insulin (CMS/HCC) (Primary Dx); Type 2 diabetes mellitus without complications (CMS/HCC) Start: 08-16-2023 End: 08-16-2023 ambulatory CECY AICHHOLZ Not Available Start: 04-23-2022 End: 04-23-2022 ambulatory [employer] CECY AICHHOLZ Facility:[facility]1 Start: 01-11-2022 End: 01-12-2022 ambulatory [employer] CECY AICHHOLZ Facility:[facility]1 Start: 10-08-2021 End: 10-08-2021 ambulatory Yue Pedroza Other [employer] Other Start: 10-08-2021 Office outpatient vi sit 15 minutes Yue Pedroza [facility] Start: 06-07-2021 End: 06-07-2021 ambulatory [employer] CECY HERNANDEZ Facility:[facility]1 Start: 05-05-2021 End: 05-06-2021 ambulatory [employer] CECY HERNANDEZ Facility:[facility]1 Start: 06-08-2018 End: 06-09-2018 Patient encounter procedure DEFAULT PHYSICIAN Facility:[facility] Start: 11-07-2013 End: 11-07-2013 [...] Start: 05-28-2024 MLR HEMOGLOBIN A1C Cecy Hernandez SURGICAL TECH Work Phone: Start: 04-23-2024 Colonoscopy Cecy quijano SURGICAL TECH Work Phone: Start: 03-29-2024 CT of head [...] Screening for malign ant neoplasm of colon [facility] Start: 06-26-2027 Diabetes Screening Diabetes Screenin g [facility] Start: 02-15-2025 Urine screening for protein Diabetes: Urine Protein Screening [facility] Start: 12-23-2024 Hemoglobin A1c measurement Diabetes: Hemoglobin A1C [facility] Start: 11-26-2024 Hemoglobin A1c measurement Diabetes: Hemoglobin A1C [facility] Start: 09-12-2024 End: 06-12-2025 C-reactive protein C-reactive protein Lab Routine Primary osteoarthritis of both hands Expected: 09/12/2024 (Approximate), Expires: 06/12/2025 [facility] Comment on above: Expected: 09/12/2024 (Approximate), Expires: 06/12/2025 Start: 09-12-2024 End: 06-12-2025 CBC W Auto Differential panel - Blood CBC auto differential Lab Routine Primary osteoarthritis of both hands Expected: 09/12/2024 (Approximate), Expires: 06/12/2025 [facility] Comment on above: Expected: 09/12/2024 (Approximate), Expires: 06/12/2025 Start: 09-12-2024 End: 06-12-2025 Comprehensive metabolic 2000 panel - Serum or Plasma Comprehensive metabolic panel Lab Routine Primary osteoarthritis of both hands Expected: 09/12/2024 (Approximate), Expires: 06/12/2025 [facility] Comment on above: Expected: 09/12/2024 (Approximate), Expires: 06/12/2025 Start: 09-12-2024 End: 06-12-2025 Erythrocyte sedimentation rate Erythrocyte Sedimentation Rate (ESR) Lab Routine Primary osteoarthritis of both hands Expected: 09/12/2024 (Approximate), Expires: 06/12/2025 [facility] Work Phone: Comment on above: Expected: 09/12/2024 (Approximate), Expires: 06/12/2025 Start: 09-11-2024 End: 09-11-2024 Patient encounter procedure 09/11/2024 1:15 PM EST Office Visit [facility] [address] [phone] Lula Cota MD [address] [address] [facility] Start: 08-19-2024 End: 08-19-2024 Patient encounter procedure 08/19/2024 3:40 PM EST Office Visit [facility] [address] [place] [address] Cecy Hernandez, DARIO [address] [place] [phone] [facility] Start: 08-17-2024 Hemoglobin A1c measurement Diabetes: Hemoglobin A1C [facility] Start: 07-23-2024 End: 07-23-2024 Patient encounter procedure 07/23/2024 11:20 AM EST Office Visit [facility] [address] [facility] [address] [place] [address] Maryjane Liang PA [address] [place] [address] [facility] [address] Start: 07-22-2024 End: 07-22-2024 Patient encounter procedure 07/22/2024 6:30 PM EST Office Visit [facility] [address] [place] [address] Cecy Hernandez, SURGICAL TECH [address] [place] [phone] Arrived [facility] Comment on above: Arrived Start: 07-18-2024 End: 07-18-2024 Patient encounter procedure 07/18/2024 2:40 PM EST Office Visit [facility] [address] [place] [phone] Cecy Hernandez, SURGICAL TECH [address] [place] [phone] [facility] Start: 06-12-2024 End: 06-12-2025 CK Total CK Total Lab Routine Primary osteoarthritis of both hands Expected: 06/12/2024 (Approximate), Expires: 06/12/2025 [facility] Comment on above: Expected: 06/12/2024 (Approximate), Expires: 06/12/2025 Start: 06-12-2024 End: 06-12-2025 Cyanocobalamin vitamin b-12 Vitamin B12 Lab Routine Primary osteoarthritis of both hands Expected: 06/12/2024, Expires: 06/12/2025 [facility] Comment on above: Expected: 06/12/2024 , Expires: 06/12/2025 Start: 06-12-2024 End: 06-12-2025 LDH LDH Lab Routine Primary osteoarthritis of both hands Expected: 06/12/2024 (Approximate), Expires: 06/12/2025 [facility] Comment on above: Expected: 06/12/2024 (Approximate), Expires: 06/12/2025 Start: 06-12-2024 End: 06-12-2025 Thyrotropin [Units/volume] in Serum or Plasma [facility] Comment on above: Expected: 06/12/2024 , Expires: 06/12/2025 Start: 06-12-2024 End: 06-12-2025 Unlisted Lab Test Unlisted Lab Test Lab Routine Myopathy Expected: 06/12/2024, Expires: 06/12/2025 [facility] Comment on above: Expected: 06/12/2024 , Expires: 06/12/2025 Start: 06-12-2024 End: 06-12-2025 Vitamin D 25 hydroxy Vitamin D 25 hydroxy Lab Routine Primary osteoarthritis of both hands Expected: 06/12/2024, Expires: 06/12/2025 [facility] Comment on above: Expected: 06/12/2024 , Expires: 06/12/2025 Start: 04-28-2024 COVID-19 VACCINE () COVID-19 VACCINE () [facility] Start: 04-28-2024 COVID-19 Vaccine (3 - 2023-24 season) COVID-19 Vaccine ( season) [facility] Start: 04-28-2024 Covid-19 Vaccine () Covid-19 Vaccine () [facility] Start: 04-28-2024 Influenza vaccination INFLUENZA VACC INE (#1) [facility] Start: 04-04-2024 DTaP,Tdap and Td Vaccines (2 - Td or Tdap) DTaP,Tdap and Td Vaccines (2 - Td or Tdap) [facility] Start: 04-04-2024 Tetanus vaccination TETANUS [facility] Start: 04-04-2024 Urine microalbumin profile DTaP,Tdap,Td Vaccine (2 - Td or Tdap) [facility] Start: 03-30-2024 End: 03-30-2024 [facility] Start: 03-30-2024 Physical therapy procedure [facility] Start: 03-30-2024 Referral to neurologist [facility] Start: 03-30-2024 Referral to occupati onal therapist [facility] Start: 03-30-2024 [facility] Start: 03-30-2024 Hospital admission [facility] Start: 03-29-2024 CT of head without contrast CT head/brain wo con [facility] Start: 03-29-2024 CT Unspecified body region WO contrast [facility] Start: 03-25-2024 [facility] Start: 03-25-2024 Cerebrospinal fluid culture [facility] Start: 03-24-2024 [facility] Start: 03-23-2024 [facility] Start: 03-23-2024 Hospital admission [facility] Start: 03-23-2024 Referral to neurologist [facility] Start: 01-14-2024 Urine screening for protein Diabetes: Urine Protein Screening [facility] Start: 01-03-2024 End: 01-03-2024 Patient encounter procedure 01/03/2024 3:00 PM EDT Office Visit [facility] [address] [phone] Lula Cota MD [address] [address] [facility] Start: 12-27-2023 Screening for malign ant neoplasm of colon [facility] Start: 11-16-2023 End: 11-16-2023 Patient encounter procedure 11/16/2023 1:20 PM EDT Office Visit [facility] [address] [place] [address] Cecy Hernandez NP [address] [place] [address] [facility] Start: 11-03-2023 Hemoglobin A1c measurement Diabetes: Hemoglobin A1C [facility] Start: 04-28-2023 Influenza vaccination Influenza Vacc ine [facility] Start: 2022 Screening for malign ant neoplasm of colon [facility] Start: 04-28-2020 Influenza vaccination INFLUENZA (#1) [facility] Start: 2017 Lipid panel LIPID SCREENING [facility] Start: 2012 Lipid panel Lipid Screening [facility] Start: 2012 LIPID SCREEN LIPID SCREEN [facility] Start: 1996 DTaP,Tdap and Td Vaccines (1 - Tdap) DTaP,Tdap and Td Vaccines (1 - Tdap) [facility] Start: 1996 Hepatitis B vaccination HEP B VACCINE (1 of 3 - 19+ 3-dose series) [facility] Start: 1996 Hepatitis B Vaccine (1 of 3 - 19+ 3-dose series) Hepatitis B Vaccine (1 of 3 - 19+ 3-dose series) [facility] Start: 1996 Urine microalbumin profile DTAP,TDAP,TD (1 - Tdap) [facility] Start: 1995 Adult BMI Screening Adult BMI Screen ing [facility] Start: 1995 Anxiety Screening Anxiety Screening [facility] Start: 1995 Depression Screening Depression Scre ening [facility] Start: 1995 Diabetic foot examination Diabetic Foot Exam [facility] Start: 1995 HIV SCREENING HIV SCREENING [facility] Start: 1992 HIV screening HIV SCREENING DISCUSSION [facility] Start: 1989 Depression Screening Depression Scre ening [facility] Start: 1989 Tobacco Screening Tobacco Screening [facility] Start: 1987 Glaucoma screening Diabetes: R etinopathy Screening [facility] Start: 1977 Glaucoma screening Diabetic Op hthalmology Exam [facility] Start: 1977 Hepatitis C screening HEPATITI S C VIRUS SCREENING [facility] Start: 1977 Potassium [Moles/vol ume] in Serum or Plasma POTASSIUM [facility] Start: 1977 Screening for malign ant neoplasm of colon [facility] Start: 1977 Urine screening for protein Urine Microalbumin [facility] Albumin [Mass/volume ] in Cerebral spinal fluid [facility] Albumin [Mass/volume ] in Serum or Plasma [facility] Anion gap measurement [facility] Bacteria identified in Unspecified specimen by Aerobe culture [facility] Bacteria identified in Unspecified specimen by Anaerobe culture [facility] Basophils [#/volume] in Blood by Automated count [facility] Basophils/100 leukoc ytes in Blood by Automated count [facility] Borrelia burgdorferi IgG+IgM Ab [Presence] in Serum by Immunoassay [facility] C reactive protein [Mass/volume] in Serum or Plasma C-reactive protein Lab Routine Primary osteoarthritis of both hands 06/12/2024 2:11 PM EDT [facility] CBC W Auto Different ial panel - Blood CBC auto differential Lab Routine Primary osteoarthritis of both hands 06/12/2024 2:11 PM EDT [facility] Cerebrospinal fluid IgG ratio and IgG index [facility] Cobalamin (Vitamin B 12) [Mass/volume] in Serum or Plasma Vitamin B12 Lab Routine Primary osteoarthritis of both hands 06/12/2024 2:11 PM EDT [facility] Comprehensive metabo lic 2000 panel - Serum or Plasma Comprehensive metabolic panel Lab Routine Primary osteoarthritis of both hands 06/12/2024 2:11 PM EDT [facility] Creatine kinase [Enzymatic activity/volume] in Serum or Plasma CK Total Lab Routine Primary osteoarthritis of both hands 06/12/2024 2:11 PM [facility] End: 07-10-2025 EMG(NEURO/NI) EMG(NEURO/NI) EMG Routine Brachial plexopathy 1 Occurrences starting 07/10/2024 until 07/10/2025 [facility] Work Phone: Comment on above: 1 Occurrences starti ng 07/10/2024 until 07/10/2025 Eosinophils/100 leukocytes in Blood by Automated count [facility] Erythrocyte distribu tion width [Ratio] by Automated count [facility] Erythrocyte sedimentation rate by Photometric method Erythrocyte Sedimentation Rate (ESR) Lab Routine Primary osteoarthritis of both hands 06/12/2024 2:11 PM EDT [facility] Erythrocytes [#/volu me] in Blood [facility] Hematocrit [Volume Fraction] of Blood [facility] Hemoglobin [Mass/vol ume] in Blood [facility] IgG [Mass/volume] in Cerebral spinal fluid [facility] IgG [Mass/volume] in Serum or Plasma [facility] IgG clearance/Albumi n clearance [Ratio] in Serum and CSF [facility] IgG synthesis rate [Mass/time] in Serum and CSF by calculation [facility] Lactate dehydrogenas e [Enzymatic activity/volume] in Serum or Plasma LDH Lab Routine Primary osteoarthritis of both hands 06/12/2024 2:11 PM EDT [facility] Leukocytes [#/volume ] corrected for nucleated erythrocytes in Blood by Automated coun [facility] Leukocytes [#/volume ] in Blood [facility] Lymphocytes [#/volum e] in Blood by Automated count [facility] Lymphocytes/100 leukocytes in Blood by Automated count [facility] MCH [Entitic mass] b y Automated count [facility] MCHC [Mass/volume] b y Automated count [facility] MCV [Entitic volume] by Automated count [facility] Monocytes [#/volume] in Blood by Automated count [facility] Monocytes/100 leukoc ytes in Blood by Automated count [facility] Myoglobin [Mass/volu me] in Serum or Plasma [facility] Neutrophils [#/volum e] in Blood by Automated count [facility] Neutrophils/100 leukocytes in Blood by Automated count [facility] Nucleated erythrocyt es [Presence] in Blood by Automated count [facility] Patient Education Know your Meds [facility] Work Phone: Patient referral [facility] Work Phone: Platelet mean volume [Entitic volume] in Blood by Automated count [facility] Platelets [#/volume] in Blood [facility] Protein fractions.oligoclonal bands.intrathecal [Presence] in Serum and CSF [facility] Unlisted Lab Test Anti-HMGCR Unlisted Lab Test Anti-HMGCR Lab Routine Myopathy 06/12/2024 2:11 PM EDT [facility] Vitamin D+Metabolite s [Mass/volume] in Serum or Plasma Vitamin D 25 hydroxy Lab Routine Primary osteoarthritis of both hands 06/12/2024 2:11 PM EDT [facility] Immunizations Immunization Date Immunization Notes Care Provider Fa [facility] 05-09-2024 influenza, seasonal, injectable, preservative free Cecy Aichholz SURGICAL TECH Work Phone: [facility] 07-05-2023 influenza, injectabl e, quadrivalent, preservative free Cecy Aichholz SURGICAL TECH Work Phone: [facility] 07-05-2023 influenza virus vaccine, unspecified formulation [facility] 06-06-2023 influenza virus vaccine, unspecified formulation Cecy Aichholz SURGICAL TECH Work Phone: [facility] 06-08-2022 influenza, injectabl e, quadrivalent, preservative free Cecy Aichholz SURGICAL TECH Work Phone: [facility] 05-12-2021 influenza, injectabl e, quadrivalent, preservative free Cecy Aichholz SURGICAL TECH Work Phone: [facility] 04-04-2014 tetanus toxoid, redu [place] diphtheria toxoid, and acellular pertussis vaccine, adsorbed Yue Kasia Other [facility] 06-12-2013 influenza virus vaccine, unspecified formulation Haylee Garcia [facility] Payers Date Payer Category Payer Self-pay 2022 Medicaid [id number] 2022 Medicaid [id number] 2013 Medicaid [employer] [employer] [place] [employer] MEDICAID [id number] 2013-Present Medicaid [id number] 2013 Self-pay SELF PAY HSP/MED ICAL SELF PAY [id number] 2013-2015 SELF PAY Indemnity [id number] 1977 Unknown [id number] 2.16.840.1.572095.3.579.2.647 1977 Unknown [id number] 2.16.840.1.578285.3.579.2.593 1977 Unknown [id number] .16.840.1.047932.3.579.2.593 1977 Unknown [id number] 2.16.840.1.530223.3.579.2.593 1977 Unknown [id number] 2.16.840.1.920099.3.579.2.593 1977 Unknown [id number] 2.16.840.1.643774.3.579.2.1286 1977 Unknown [id number] 2.16.840.1.806641.3.579.2.1286 1977 Unknown [id number] 2.16.840.1.030784.3.579.2.1286 1977 Unknown [id number] 2.16.840.1.021661.3.579.2.1286 1977 Unknown [id number] 2.16.840.1.303652.3.579.2.1286 1977 Unknown [id number] 2.16.840.1.112433.3.579.2.6 1977 Unknown [id number] 2.16.840.1.345795.3.579.2.983 1977 Unknown [id number] 2.16.840.1.508709.3.579.2.983 1977 Unknown [id number] 2.16.840.1.426839.3.579.2.1258 1977 Unknown [id number] 2.16.840.1.259775.3.579.2.1258 1977 Unknown [id number] 2.16.840.1.072491.3.579.2.1258 1977 Unknown [id number] 2.16.840.1.589205.3.579.2.1258 1977 Unknown [id number] 2.16.840.1.599822.3.579.2.1258 1977 Unknown [id number] 2.16.840.1.372623.3.579.2.1258 1977 Unknown [id number] 2.16.840.1.270657.3.579.2.1258 1977 Unknown [id number] 2.16.840.1.768261.3.579.2.1258 1977 Unknown [id number] 2.16.840.1.494478.3.579.2.1258 1977 Unknown [id number] 2.16.840.1.081231.3.579.2.1258 1977 Unknown [id number] 2.16.840.1.793453.3.579.2.1259 1959 Unknown [id number] 2.16.840.1.622511.19 1959 Unknown [id number] Unknown Unknown [id number] 2.16.840.1.506223.3.579.2.531 Unknown [id number] 2.16.840.1.337603.3.579.2.531 Social History Date Type Detail Facility Start: 05-20-2013 End: 05-01-2024 Tobacco smoking status LAIS Former smoker [facility] Start: 05-20-2013 End: 07-10-2024 Alcohol intake Not Asked [facility] Start: 1975 Sex Assigned At Not on file [facility] Start: 08-16-2023 End: 11-15-2023 Sex [...] day [facility] Tobacco smoking stat us [facility] Tobacco smoking consumption unknown [facility] Childcare Unknown [facility] Start: 1975 Sex Assigned At Male [facility] Start: 05-01-2024 End: 06-18-2024 Tobacco use and exposure Former smokeless tobacco user [facility] History of tobacco use Chews Tobacco [facility] Start: 05-21-2024 End: 07-22-2024 Alcoholic beverage intake Lifetime non-drinker (finding) [facility] Do you belong to any clubs or organizations such as latter day groups, unions, fraternal or athletic groups, or [...] [facility] Start: 01-06-2016 Sex Male (finding) [facility] Medical Equipment Procedure Code Equipment Code Equipment Origin al Text Equipment Identifier Dates 1 each by Other route Daily as needed [id number] Start: 10-13-2022 1 each by Other route if needed [id number] Start: 10-13-2022 1 each by Other route Daily [id number] Start: 04-04-2024 End: 07-13-2024 Goals Date Patient Goal Desired Activity /State Functional Status Date Assessment Result Facility 03-30-2024 Functional status Patient at Baseline [facility] Work Phone: 03-25-2024 Functional status Patient at Baseline [facility] Work Phone: Mental Status Date Assessment Result Facility 03-30-2024 Cognitive function Cognitive Sta tus Patient at Baseline [facility] Work Phone: 03-25-2024 Cognitive function Cognitive Sta tus Patient at Baseline [facility] Work Phone: Clinical Notes 10-08-2021 to [...] Upper extremity weakness Reviewed neurology notes from [facility] Associated Problem(s): Essential hypertension, benign (CMS/HCC) Not currently taking meds States was having hypotension when given meds in hospital Pt has moved to [place] with his brother he has fallen there [...] functioning. He has recently relocated back to [facility] living with his sister, after a brief period of time living with his brother in [place]. He is unable to use his Upper [...] mg, Daily RT Lancets (OneTouch Delica Plus [id number]) misc 1 each, Daily PRN lisinopril-hydroCHLOROthiazide 20-25 [...] Oral, Nightly PRN ALLERGIES: Allergies Allergen Reactions [place] Oil Hives Cashew Nut (Anacardium Occidentale) Skin Test Hives Cashew Nut Oil Dermatitis Other Unknown Oxytetracycline Unknown Penicillin G Unknown Penicillins Pedi-Pre Tape [place] [Wound Dressing Adhesive] Rash REVIEW OF SYMPTOMS: [...] (BMI) of 45.0 to 49.9 in adult ([facility] 08/16/2023 Depression, controlled ([facility] Epigastric pain Hypertension ([facility]) immunosupression Non compliance w medication regimen Non-compliant patient EDDI (obstructive sleep apnea) 11/16/2023 RA (rheumatoid arthritis) ([facility] Seasonal allergies Tonsillitis as child Type 2 diabetes mellitus without complication, without long-term current use of insulin [place]23 Past Surgical History: Procedure Laterality Date [...] Orders Ambulatory referral to Home Health Depression (CMS/[facility]) Not currently taking any medications Essential hypertension, benign (CMS/HCC) Not currently taking meds States was having hypotension when given meds in hospital Type 2 diabetes mellitus without complication, without long-term current use of insulin (CMS/[facility]) Not currently checking sugar, taking meds either Rheumatoid arthritis with rheumatoid factor, unspecified (CMS/[facility]) Differing reports as to if does have RA or not Upper extremity weakness - Primary Reviewed neurology notes from [facility] Relevant Orders Ambulatory referral to Home Health Weakness Read neurology notes Needs home health Relevant Orders Ambulatory referral to Home Health Obesity, Class II, BMI 35-39.9 Other Visit Diagnoses Depression, unspecified (CMS/HCC) Essential (primary) hypertension (CMS/HCC) Type 2 diabetes mellitus without complications ([facility]) documented in this encounter [facility] 07-22-2024 Instructions Cecy Hernandez NP - 07/22/2024 6:30 PM EST Cont with neurology Order home health documented in this encounter [facility] 07-11-2024 Note HNO ID: [id number] Author: MARVIN MALDONADO LSW Service: ? Author Type: Supervisor Metalizing Type: Progress Notes Filed: 07/11/2024 12:56 Note [...] provided information on housing assistance programs in [facility]. Provided pt with information on how to [...] Advocacy Assessment Care transition Discharge from [facility] panel Education Empowering/Coaching Goal Setting SABINE Duran July 11, 2024 12:47 PM [facility] 07-11-2024 History of Present illness Narrative Primary [...] provided information on housing assistance programs in [facility]. Provided pt with information on how to [...] Advocacy Assessment Care transition Discharge from [facility] panel Education Empowering/Coaching Goal Setting SABINE Duran July 11, 2024 12:47 PM documented in this encounter [facility] 07-10-2024 Instructions Darek Valdovinos MD - 07/10/2024 10:54 AM EST We would like to repeat an EMG of your arms. This can be scheduled at any [facility] EMG lab. Please schedule follow-up in person with Dr. Valdovinos on August 14 To schedule Occupational Therapy: [facility]: [phone]. [facility]: [phone], Option 1 documented in this encounter [facility] 07-10-2024 Note HNO ID: [id number] Author: KEITH LEONE MD Service: ? Author Type: Physician Type: Progress Notes Filed: 07/10/2024 13:12 Note Text: [facility] New Patient Evaluation Consulting Provider: Errol Sanford [address] [facility] [address] Chief Complaint/Issues: Bhumika Umana is a 48 year old male with hx of ?RA, T2DM, past tobacco use, obesity, seen in the [facility] for: Progressive BL UE weakness and numbness Intermittent LE weakness HPI: Patient states symptoms started in December 2023 with numbness in his fingertips BL. 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 His right [...] he had celluliutis. 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 [facility] 07-10-2024 History of Present illness Narrative Images from the original note were not included. [facility] New Patient Evaluation Consulting Provider: Errol Sanford [address] [facility] [address] Chief Complaint/Issues: Bhumika Umana is a 48 year old male with hx of ?RA, T2DM, past tobacco use, obesity, seen in the [facility] for: Progressive BL UE weakness and numbness Intermittent LE weakness HPI: Patient states symptoms started in December 2023 with numbness in his fingertips BL. 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 His right [...] he had celluliutis. 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 Road Freight Brake Coupler: PSCB Transcribe Date/Time: Jun 26 2024 7:33A [...] of Dr. Leone documented in this encounter [facility] 06-26-2024 Note HNO ID: [id number] Author: HONG CRUZ LSW Service: Care Management Author Type: Supervisor Metalizing Type: Care Mgt Progress Note Filed: 06/26/2024 [...] Physician Primary Care Physician Name/Phone: Cecy Hernandez, SUPERVISOR GROVE [phone] Patient d/c ready to home with no skilled needs identified. Patient and bedside RN aware of plan. Brother to transport patient home via private auto this evening when he gets off of work. SIGNATURE: SABINE Weiss PATIENT NAME: Bhumika Umana DATE: June 26, 2024 TIME: 3:42 PM CONTACT #: [phone] [facility] 06-26-2024 Note HNO ID: [id number] Author: MADIHA HARDING RPh Service: Pharmacy Author [...] discharge medication list. Madiha Harding RPh Pager: [phone] 06/26/2024 3:40 PM Medication List CHANGE how [...] 50 mg tablet Commonly known as: ULTRAM [facility] 06-26-2024 Note HNO ID: [id number] Author: MADIHA HARDING RPh Service: Pharmacy Author Type: Pharmacist Type: Plan of Care Filed: 06/26/2024 15:40 Note Text: PHARMACY MEDICATION REVIEW Patient Name: Bhumika Umana : 1975 The following medications were updated within the VOLUNTEER PATIENT REPRESENTATIVE medication list: Medications ADDED to VOLUNTEER PATIENT REPRESENTATIVE medication list Aspirin 81 mg chewable [...] at bedtime as needed. Medications CHANGED on VOLUNTEER PATIENT REPRESENTATIVE medication list None Medications REMOVED from VOLUNTEER PATIENT REPRESENTATIVE medication list None Additional comments: Discharge [...] Yes Medication history completed by: student support advisor: Lenin Odom Source of history: Patient: Reliability of source: Appears reliable, clearly identified: Medication name, Medication dose, Medication route, and Medication frequency Medication nonadherence identified: No barriers noted Reconciliation completed: Yes Completed by: Madiha Harding RPh All VOLUNTEER PATIENT REPRESENTATIVE medications addressed by LIP- some home medications were not ordered this admission but will be continued at discharge. Since discharge summary has already been placed, will not reach out to the team to add missing medications. Patient interested in Bedside Delivery Services or using [facility] at discharge? Yes. Discharge Pharmacy Updated Preferred outpatient pharmacy: [facility] [address] [place] [address] - [address] - [phone] E- [facility] [place] [address] - [address] [facility] - [phone] Allergies: Adhesive Tape (Aidee* Rash Penicillins Unknown [...] Unknown Patient Yes No Sig: Use 1 [place] in each nostril daily at bedtime. folic [...] None Lenin Odom 06/26/2024 Madiha Harding, Kimber, [facility] Changes and additions to the details in the note are indicated by italics and strikeouts. [facility] 06-26-2024 Note HNO ID: [id number] Author: HEMANTH HOPKINS MD Service: Neurology General [...] note Hemanth Hopkins MD Neurology, PGY-4 06/26/2024 [facility] 06-25-2024 Note HNO ID: [id number] Author: HONG CRUZ LSW Service: Care Management Author Type: Supervisor Metalizing Type: Care Mgt Initial Assessment Filed: 06/25/2024 15:42 Note Text: CARE MANAGEMENT: ASSESSMENT AND DISCHARGE PLAN SERVICE DATE: June 25, 2024 SERVICE TIME: 3:30 PM PCP: Cecy Hernandez CNP, SUPERVISOR GROVE Primary Contact: Extended Emergency Contact Information Primary Emergency Contact: Justine Umana Address: [address] [place] [address] Mobile Relation: Mother Admission Status: Observation Insurance Provider: GRANT BCBS [place] Discharge Planning requested by: Per Department Practice Potential Transition Plans Advance Directives Current Advance Directive: None Carrot Grader Inspector Attempted to Assist with AD Completion: Yes Current Living Arrangements and Support Lives with: Other person(s), Family members (temporarily living with brother) Type of Residence: Private Residence (House) Discharge Planning Patient Goal(s): General wellness [place] of Choice Explained: [place] of Choice Given: No Reason Not Given: [...] and weakness in his hands. 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 At this time, no skilled identified. If family is unavailable to transport, T2R will be provided at discharge. SW/CM will continue to follow for transitional care needs. SIGNATURE: SABINE Weiss PATIENT NAME: Bhumika Umana DATE: June 25, 2024 TIME: 3:30 PM CONTACT #: [phone] [facility] 06-25-2024 Note HNO ID: [id number] Author: [place] ? Service: Pharmacy Author Type: Ruby On Rails Web Developer Type: Plan of Care Filed: 06/25/2024 14:20 Note Text: Insurance investigation completed Patient has active prescription insurance: Yes - Patient's insurance is in-network with [facility] Insurance loaded into [place]: Yes Test claim was completed to verify insurance is active: Successful Any questions, please reach out to your medication staff development coordinator rn. [facility] 06-25-2024 Note HNO ID: [id number] Author: HEMANTH HOPKINS MD Service: Neurology General [...] low-normal 228. Pt being seen by PT/OT, wire weaver for outpt PT. EMG/NCS 02/13/2024 (symptom onset [...] standpoint Hemanth Hopkins MD Neurology, PGY-4 06/25/2024 [facility] 06-22-2024 Physician Emergency department Note Emergency Department Report [facility] EMERGENCY DEPART[facility] Service Date:.06/22/24 PCP: Cecy Hernandez [...] Resource Strain: Medium Risk (11/15/2023) Received from [facility] Overall Financial Resource Strain (CARDIA) Difficulty of Paying Living Expenses: Somewhat hard Food Insecurity: Patient Declined (11/15/2023) Received from [facility] Hunger Vital Sign Worried About Running Out of Food in the Last Year: Patient declined Ran Out of Food in the Last Year: Patient declined Transportation Needs: No Transportation Needs (11/15/2023) Received from [facility] PRAPARE - Transportation Lack of Transportation (Medical): No Lack of Transportation (Non-Medical): No Physical Activity: Patient Declined (11/15/2023) Received from [facility] Exercise Vital Sign Days of Exercise per Week: Patient declined Minutes of Exercise per Session: Patient declined Stress: Patient Declined (11/15/2023) Received from [facility] of Occupational Health - Occupational Stress Questionnaire Feeling of Stress : Patient declined Social Connections: Moderately Integrated (11/15/2023) Received from [facility] Social Connection and Isolation Panel [NHANES] Frequency of Communication with Friends and Family: Three times a week Frequency of Social Gatherings with Friends and Family: Twice a week Attends Religion Services: More than 4 times per year [...] information. . . Hector Napoles MD 06/22/242006 [facility] 06-22-2024 Emergency department Note Emergency Department Report [facility] EMERGENCY DEPARTMENT Service Date:.06/22/24 PCP: Cecy David [...] Resource Strain: Medium Risk (11/15/2023) Received from [facility] Overall Financial Resource Strain (CARDIA) Difficulty of Paying Living Expenses: Somewhat hard Food Insecurity: Patient Declined (11/15/2023) Received from [facility] Hunger Vital Sign Worried About Running Out of Food in the Last Year: Patient declined Ran Out of Food in the Last Year: Patient declined Transportation Needs: No Transportation Needs (11/15/2023) Received from [facility] PRAPARE - Transportation Lack of Transportation (Medical): No Lack of Transportation (Non-Medical): No Physical Activity: Patient Declined (11/15/2023) Received from [facility] Exercise Vital Sign Days of Exercise per Week: Patient declined Minutes of Exercise per Session: Patient declined Stress: Patient Declined (11/15/2023) Received from [facility] [place] of Occupational Health - Occupational Stress Questionnaire Feeling of Stress : Patient declined Social Connections: Moderately Integrated (11/15/2023) Received from [facility] Social Connection and Isolation Panel [NHANES] Frequency of Communication with Friends and Family: Three times a week Frequency of Social Gatherings with Friends and Family: Twice a week Attends Religion Services: More than 4 times per year [...] Napoles MD 06/22/242006 documented in this encounter [facility] 06-18-2024 Emergency department Note All discharge instructions and medications reviewed, all questions answered. Pt verbalized understanding. [facility] 06-18-2024 Emergency department Note All discharge instructions and medications reviewed, all questions answered. Pt verbalized understanding. A Sudol [facility] bedside documented in this encounter [facility] 06-18-2024 Emergency department Note A Abelino SUPERVISOR GROVE bedside [facility] 06-12-2024 History of Present illness Narrative Images from the original note were not included. [address] [address] Date of Service: 06/12/2024 Subjective: Bhumika Umana [...] the homunculus joint exam. LANG-28 (CRP): -- LAGN-28 (ESR): -- Tender (LANG-28): -- Swollen (LANG-28): [...] Myopathy - Unlisted Lab Test; Future - [facility] Physicians Neurology - [facility] [place], [place]; Future 3. Diabetic cheirarthropathy ([facility]) At this point patient continued to [...] or corrected. Thank you for your understanding. [facility] Physicians Rheumatology Dr. Lula Cota MD [address] [facility], [address] [place] [address] Office: [phone] documented in this encounter [facility] [employer] [facility] 03-30-2024 Discharge summary Note Date/Time March 30, 2024 12:47pm [facility] [address] [place] [id number] Discharge Summary Signed Patient: Bhumika Umana JR MR#: [id number] : 1975 Acct:[id number] Age/Sex: 48 / M Adm Date: 4 Loc: Room: [address] [place] [address]: Bola Garcia DO Copies to: [...] ago and has been feeling fine. Current forge shop supervisor is working him up for possible Sjogren's [...] neurology clinic. He needs to see his forge shop supervisor in [place]. The following labs are still pending from [...] the neurology office. Follow up with your Knapsack Sprayer in [place]. Instructions: Know your Meds Prescriptions: Continued amitriptyline [...] Upper extremity: He does have mildly weak litigation paralegal strength of both hands and mild weakness [...] % (Auto) 67.6, Lymph % (Auto) 22.0, [place] % (Auto) 9.0, Eos % (Auto) 1.0, Baso % (Auto) 0.4, Nucleat RBC Rel Count 0.0, Neut # (Auto) 13.5 H, Lymph #(Auto) 4.4, [place] # (Auto) 1.8 H, Eos # (Auto) 0.2, Baso # (Auto) 0.1, PHA Creatinine Clear 238.21, Sodium 136, Potassium 4.4, Chloride 101, Carbon Kwpynjh57.2, Anion Gap 12.2, BUN 13, Creatinine 0.61 [...] % (Auto) 77.7, Lymph % (Auto) 14.7, [place] % (Auto) 6.5, Eos % (Auto) 0.6, Baso % (Auto) 0.5, Nucleat RBC Rel Count 0.1, Neut # (Auto) 13.3 H, Lymph #(Auto) 2.5, [place] # (Auto) 1.1 H, Eos # (Auto) [...] signed by Bola Garcia DO> 03/30/24 [address] [facility] Work Phone: 1(799) 462-340608-03-2024 Consult note Author [address] [facility] March 30, 2024 11:04am Note Date/Time March 30, 2024 10: 08am [facility] [address] [place] [address] Neurology Consult Note Signed Patient: Bhumika Umana JR MR#: [id number] : 1975 Acct:[id number] Age/Sex: 48 / M Adm Date: 4 Loc: Room: [address] [place] [address] Type: ADM INOo Attending Dr: Bola Garcia DO Copies to: DO Cecy Watson NP-C Altagracia Street DO~ HPI Consult Date: 03/30/24 High School Foreign Language Teacher: Altagracia Street DO Reason for consult: weakness Consult Narrative HPI: 48-year-old male being seen in Neurology consultation at the request of the hospitalist. The patient was recently admitted worked up and released for similar issues. The patient has a PMH of T2DM, HTN, depression adn RA. The patient returned to the hopsital/ED [facility] new complaints of BLE where his [...] brother came over to go to the [employer]. States he needed help just opening up [...] that his hands feel like they have vrzn-kgk-obehroaxe them. He was discharged from the hospital [...] ago and has been feeling fine. 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 forge shop supervisor is working him up for possible Sjogren's [...] Denies dizziness, Reports headache(s) and Reports weakness [facility] Medical History Depressed Acute rheumatoid [...] Mert Ferreira M.D.03/30/2024 9:26 AM Dictation Location: [place] [address] Assessment/Plan (1) Bilateral arm weakness: (2) Bilateral [...] <Electronically signed by DO Altagracia Street> 03/30/24 [address] [facility] Work Phone: 1(777) 594-181108-03-2024 History and physical note Author Edgar Gomez [facility] March 30, 2024 6:59am Note Date/Time March 30, 2024 1:3 8am [facility] [address] [place] [address] Hospitalist H&P Signed Patient: Bhumika Umana JR MR#: [id number] : 1975 Acct:[id number] Age/Sex: 48 / M Adm Date: 4 Loc: Room: [address] [place] [address] Type: ADM INOo Attending Dr: Edgar Gomez MD Copies to: MD Cecy Jeter, SURGICAL TECH-C Margaret Kennedy, MOTEL CLERK~ HPI DATE OF EXAMINATION: 03/30/24 CHIEF COMPLAINT: [...] that his hands feel like they have puoe-hiw-tfmxvfu in them. He is moving both of [...] ago and has been feeling fine. Current forge shop supervisor is working him up for possible Sjogren's [...] unless noted in the HPI or below. [facility] Medical History (Updated 03/30/24 @ [...] % (Auto) 14.7 % (.) 03/29/24 22:50 Rusk % (Auto) 6.5 % (.) 03/29/24 22:50 Eos % (Auto) 0.6 % (.) 03/29/24 22:50 Baso % (Auto) 0.5 % (.) 03/29/24 22:50 Nucleat RBC Rel Count 0.1 /100 WBC (0-0.5) 03/29/24 22:50 Neut # (Auto) 13.3 x10E3/uL (1.8-7.7) H 03/29/24 22:50 Lymph # (Auto) 2.5 x10E3/uL (1.00-4.8) 03/29/24 22:50 Rusk # (Auto) 1.1 x10E3/uL (0.0-0.8) H 03/29/24 [...] signed by Edgar Gomez MD> 03/30/24 0659 [facility] Work Phone: 1(652) 861-817307-29-2024 Progress note Author Danial Horan [facility] March 25, 2024 2:09pm Note Date/Time March 25, 2024 2:03 pm [facility] [address] [place] [address] Neurology Progress Note Signed Patient: Bhumika Umana JR MR#: [id number] : 1975 Acct:[id number] Age/Sex: 48 / M Adm Date: 4 Loc: Room: [address] [place] [address] Type: ADM IN Attending Dr: Simon Wolfe [...] wrist flexion, +2/5 bilateralfinger extension, +4/5 bilateral litigation paralegal strength, +3/5 finger abduction bilaterally. No tremors. [...] <Electronically signed by Danial Horan DO> 03/25/24 [address] [facility] Work Phone: 1(373) 242-243507-28-2024 Progress note Author Danial Horan [facility] March 24, 2024 1:33pm Note Date/Time March 24, 2024 1:33 pm [facility] [address] [place] [address] Neurology Progress Note Signed Patient: Bhumika Umana JR MR#: [id number] : 1975 Acct:[id number] Age/Sex: 48 / M Adm Date: 4 Loc: Room: [address] [place] [address] Type: ADM IN Attending Dr: Elder Iyer [...] wrist flexion, +2/5 bilateralfinger extension, +4/5 bilateral litigation paralegal strength, +3/5 finger abduction bilaterally. No tremors. [...] signed by Danial Horan DO> 03/24/24 [address] [facility] Work Phone: 1([phone]) 684-114007-28-2024 Progress note Author Elder Iyer [facility] March 24, 2024 11:01am Note Date/Time March 24, 2024 11:0 1am [facility] [address] [place] [address] Hospitalist Progress Note Signed Patient: Bhumika Umana JR MR#: [id number] : 1975 Acct:[id number] Age/Sex: 48 / M Adm Date: 4 Loc: 3T Room: [address] [place] [address] Type: ADM IN Attending Dr: Elder Iyer [...] his hands where he can't make a litigation paralegal, mentions that he could not hold a [...] spray 03/23/24 22:00 03/23/24 21:18 Fluticasone Propionate [place] 120 [place]/16 Gm Bottle NARES-BOTH 03/23/25 21:59 Not Given [...] Insuln.Pen SUBCUT 03/23/25 07:59 Not Given TID.WM.[facility] Protocol Lisinopril 20 mg 03/23/24 09:00 [...] of his bilateral worsening in his hand litigation paralegal this am -He is off steroids -His [...] signed by Elder Iyer MD> 03/24/24 [address] [facility] Work Phone: 1(211) 768-523707-27-2024 Progress note Author Elder Iyer [facility] March 23, 2024 2:33pm Note Date/Time March 23, 2024 2:33 pm [facility] [address] [place] [address] Hospitalist Progress Note Signed Patient: UmanaBhumika carrizales MR#: [id number] : 1975 Acct:[id number] Age/Sex: 48 / M Adm Date: 4 Loc: 3T Room: [address] [place] [address] Type: ADM IN Attending Dr: Elder Iyer [...] reviewed today: Cervical spine MRI done in [place]: The MRI of the cervical spine is [...] and without contrast done here at [facility]: Focal areas of abnormal signal are [...] in his hands and can make a litigation paralegal, sensation is normal over the bilateral upper [...] Propionate 2 spray 03/23/24 22:00 Fluticasone Propionate [place] 120 [place]/16 Gm Bottle NARES-BOTH 03/23/25 21:59 QHS FARZANEH [...] cervical spine with and without contrast here [facility], will need better resolution study 3 [...] <Electronically signed by Elder Iyer MD> 03/23/24 [address] [facility] Work Phone: 1(773) 697-429507-27-2024 Consult note Author Danial Horan [facility] March 23, 2024 1:05pm Note Date/Time March 23, 2024 11:3 9am [facility] [address] [place] [address] Neurology Consult Note Signed Patient: Bhumika Umana JR MR#: [id number] : 1975 Acct:[id number] Age/Sex: 48 / M Adm Date: 4 Loc: Room: [address] [place] [address] Type: ADM IN Attending Dr: Elder Iyer MD Copies to: DO Cecy Aguirre NP-C Elder Iyer MD~ HPI Consult Date: 03/23/24 High School Foreign Language Teacher: Danial Horan DO [facility] Medical History (Updated 03/23/24 @ [...] his close, etc. He went to the [place] emergency department to be evaluated and had to sign some for there and had used two handsto manipulate the pen. The [place] emergency department called me overnight and told [...] wrist flexion, +2/5 bilateralfinger extension, +4/5 bilateral litigation paralegal strength, +3/5 finger abduction bilaterally. No tremors. [...] <Electronically signed by Danial Horan DO> 03/23/24 1309 [facility] Work Phone: [phone]) 214-737407-27-2024 History and physical note Author Bola Garcia [facility] March 23, 2024 2:28am Note Date/Time March 23, 2024 2:28 am [facility] [address] [place] [address] Hospitalist H&P Signed Patient: Bhumika Umana JR MR#: [id number] : 1975 Acct:[id number] Age/Sex: 48 / M Adm Date: 4 Loc: Room: [address] [place] [address] Type: ADM IN Attending Dr: Bola Garcia DO Copies to: DO Cecy Watson NP-C~ HPI DATE OF EXAMINATION: 03/23/24 CHIEF COMPLAINT: Worsening weakness of both upper extremities. HISTORY OF PRESENT ILLNESS: This is a 48-year-old man who was sent to the emergency room at [facility] from the emergency room at [facility] as a ED to ED transfer at [...] on prednisone 2 days ago by the [place] [facility]. In [place] he has had a workup including a CT scan of his cervical spine and then an MRI of his cervical spine performed on March 19, 2024. Contact was made with the neurologist who felt thatthe patient should be brought over here to [facility] so he can get an MRI [...] like he recently got established with a forge shop supervisor at the [employer] [facility] in [place] who told himthat his situation was not [...] except as mentioned elsewhere in the documentation. [facility] Medical History (Updated 03/23/24 @ 02:25 by Bola Garcia DO) Depressed Acute rheumatoid arthritis Diabetes HTN (hypertension) Surgical History History of tonsillectomy and adenoidectomy Family History Father Myocardial infarction Heart disease Mother Family history of colon cancer Cancer [facility] Problem: Diagnosed with Cancer Hypertension Social History [...] % (Auto) 8.2 % (.) 03/23/24 00:52 Rusk % (Auto) 1.0 % (.) 03/23/24 00:52 Eos % (Auto) 0.0 % (.) 03/23/24 00:52 Baso % (Auto) 0.5 % (.) 03/23/24 00:52 Nucleat RBC Rel Count 0.1 /100 WBC (0-0.5) 03/23/24 00:52 Neut # (Auto) 15.5 x10E3/uL (1.8-7.7) H 03/23/24 00:52 Lymph # (Auto) 1.4 x10E3/uL (1.00-4.8) 03/23/24 00:52 Rusk # (Auto) 0.2 x10E3/uL (0.0-0.8) 03/23/24 00:52 [...] He has been established recently with a forge shop supervisor out of the [employer] system in [place]. Plan: MRI of the brain with and [...] <Electronically signed by Bola Garcia DO> 03/23/24227 [facility] Work Phone: 1(243) 277-913502-11-2022 Evaluation note* Encounter Date Diagnosis Assessment Notes [...] Patient care instructions given in writting by [facility] Care At Home document. [employer] Other Discharge summary Author Simon Wolfe [facility] March 25, 2024 5:58pm Note Date/Time March 25, 2024 5:50 pm [facility] [address] [place] [address] Discharge Summary Signed Patient: Bhumika Umana JR MR#: [id number] : 1975 Acct:[id number] Age/Sex: 48 / M Adm Date: 4 Loc: Room: [address] [place] [address]: Simon Wolfe MD Copies to: MD Cecy Mcdowell, SURGICAL TECH-C~ Providers Date of Discharge: 03/25/24 Discharging Provider: [...] Deferred Neuro: AAO x3, no focal deficits. Tacker Elastic Band strength 4+/5 throughout. 5/5 otherwise Extremities: No [...] 08:43: CSF Supernatant Color Colorless, [place] [id number] 03/25/24 08:43: CSF Color Lt pink, CSF [...] N/A Documented By: Simon Wolfe MD 4 0167 Signed By: <Electronically signed by Simon Wolfe MD> 03/25/24 4976 [facility] Work Phone: Evaluation note* Diagnosis Type 2 diabetes mellitus without complication, without long-term current use of insulin ([facility]/HCC)- Primary Type 2 diabetes mellitus without complications (CMS/HCC) documented in this encounter [facility] HealthcareEvaluation note* Diagnosis Onset Date Resolution Status Diabetes acute HTN (hypertension) acute Upper extremity weakness acu te [facility] Work Phone: Evaluation note* Diagnosis Onset Date Resolution Status Diabetes acute HTN (hypertension) acute Upper extremity weakness acu te Bilateral arm weakness acute Bilateral leg weakness acute Diabetes acute HTN (hypertension) acute Leukocytosis acute Upper extremity weakness acu te [facility] Work Phone: Evaluation note* Diagnosis Onset Date Resolution Status Diabetes acute HTN (hypertension) acute Upper extremity weakness acu te Bilateral arm weakness acute Bilateral leg weakness acute Diabetes acute Falls acute Fasciculation acute HTN (hypertension) acute Leukocytosis acute Upper extremity weakness acu te [facility] Work Phone: Evaluation note* Diagnosis Type 2 diabetes mellitus without complication, without long-term current use of insulin (CMS/HCC) Type 2 diabetes mellitus without complications (CMS/HCC) Depression, unspecified ([facility]) Other chronic pain [facility] Diagnosis Primary osteoarthritis of both hands- Primary Myopathy Unspecified myopathy Diabetic cheirarthropathy ([facility]-HCC) documented in this encounter [facility] SystemEvaluation [facility]* Diagnosis Injury of toe on right foot, initial encounter- Primary documented in this encounter [facility]* Diagnosis Generalized weakness- Primary Other malaise and fatigue Paresthesia of skin Disturbance of skin sensation documented in this encounter [facility]* Diagnosis Essential hypertension, benign (CMS/HCC)- Primary Essential hypertension, benign Type 2 diabetes mellitus without complication, without long-term current use of insulin ([facility]) Class 3 severe obesity due to excess [...] initiating or maintaining sleep Essential hypertension, benign ([facility]) Essential hypertension, benign Class 3 severe obesity due to excess calories without serious comorbidity with body mass index (BMI) of 45.0 to 49.9 in adult ([facility]) Depression, unspecified depression type ([facility]) Type 2 diabetes mellitus without complication, without long-term current use of insulin ([facility])- Primary Essential hypertension, benign ([facility]) Essential hypertension, benign Asymptomatic microscopic hematuria Degenerative disc disease, cervical Class 3 severe obesity due to excess calories without serious comorbidity with body mass index (BMI) of 45.0 to 49.9 in adult ([facility]) Upper extremity weakness- Primary Other musculoskeletal symptoms referable to limbs Morbid (severe) obesity due to excess calories ([facility]) Body mass index (BMI) 40.0-44.9, adult ([facility]) Rheumatoid arthritis with rheumatoid factor, unspecified ([facility]) Depression, unspecified ([facility]) Type 2 diabetes mellitus without complication, without long-term current use of insulin ([facility]) Other seasonal allergic rhinitis Essential hypertension, benign ([facility]) Essential hypertension, benign Essential (primary) hypertension ([facility]) Unspecified essential hypertension Type 2 diabetes mellitus without complications ([facility]) Other chronic pain Primary insomnia Persistent disorder of initiating or maintaining sleep Essential hypertension, benign ([facility]/HCC)- Primary Essential hypertension, benign Type 2 diabetes mellitus without complication, without long-term current use of insulin ([facility]) Body mass index (BMI) 40.0-44.9, adult ([facility]) Morbid (severe) obesity due to excess calories ([facility]) Other seasonal allergic rhinitis documented in this encounter [facility] HealthcareEvaluation note* Diagnosis Brachial plexopathy- Primary Brachial plexus lesions Obesity, Class II, BMI 35-39.9 Obesity, unspecified [facility] Financial difficulty- Primary Inadequate material resources [facility] Diagnosis Essential hypertension, benign ([facility]/HCC)- Primary Essential hypertension, benign Type 2 diabetes mellitus without complication, without long-term current use of insulin ([facility]) Class 3 severe obesity due to excess calories without serious comorbidity with body mass index (BMI) of 45.0 to 49.9 in adult ([facility]/HCC) Autoimmune disease ([facility]) Autoimmune disease, not elsewhere classified Essential (primary) hypertension (CMS/HCC) Unspecified essential hypertension Other chronic pain Type 2 diabetes mellitus without complications ([facility]) Type 2 diabetes mellitus without complication, without long-term current use of insulin ([facility])- Primary Primary insomnia Persistent disorder of initiating or maintaining sleep Essential hypertension, benign (CMS/[facility]) Essential hypertension, benign Class 3 severe obesity due to excess calories without serious comorbidity with body mass index (BMI) of 45.0 to 49.9 in adult ([facility]) Depression, unspecified depression type (CMS/[facility]) Type 2 diabetes mellitus without complication, without long-term current use of insulin ([facility])- Primary Essential hypertension, benign (CMS/[facility]) Essential hypertension, benign Asymptomatic microscopic hematuria Degenerative disc disease, cervical Class 3 severe obesity due to excess calories without serious comorbidity with body mass index (BMI) of 45.0 to 49.9 in adult ([facility]) Upper extremity weakness- Primary Other musculoskeletal symptoms referable to limbs Morbid (severe) obesity due to excess calories ([facility]) Body mass index (BMI) 40.0-44.9, adult ([facility]) Rheumatoid arthritis with rheumatoid factor, unspecified (CMS/[facility]) Depression, unspecified (CMS/[facility]) Type 2 diabetes mellitus without complication, without long-term current use of insulin ([facility]) Other seasonal allergic rhinitis Essential hypertension, benign (CMS/[facility]) Essential hypertension, benign Essential (primary) hypertension (CMS/[facility]) Unspecified essential hypertension Type 2 diabetes mellitus without complications ([facility]) Other chronic pain Primary insomnia Persistent disorder of initiating or maintaining sleep Essential hypertension, benign ([facility]/HCC)- Primary Essential hypertension, benign Type 2 diabetes mellitus without complication, without long-term current use of insulin (CMS/[facility]) Body mass index (BMI) 40.0-44.9, adult ([facility]) Morbid (severe) obesity due to excess calories ([facility]) Upper extremity weakness- Primary Other musculoskeletal symptoms referable to limbs Depression, unspecified (CMS/[facility]) Type 2 diabetes mellitus without complication, without long-term current use of insulin ([facility]) Essential hypertension, benign (CMS/[facility]) Essential hypertension, benign Essential (primary) hypertension (CMS/[facility]) Unspecified essential hypertension Type 2 diabetes mellitus without complications ([facility]) Obesity, Class II, BMI 35-39.9 Weakness Other malaise and fatigue Rheumatoid arthritis with rheumatoid factor, unspecified (CMS/HCC) Autoimmune disease ([facility]/HCC) Autoimmune disease, not elsewhere classified Moderate episode of recurrent major depressive disorder ([facility]/HCC) documented in this encounter [facility] HealthcareEvaluation note* Diagnosis Essential hypertension, benign (CMS/HCC)- Primary Essential hypertension, benign Type 2 diabetes mellitus without complication, without long-term current use of insulin (CMS/[facility]) Class 3 severe obesity due to excess calories without serious comorbidity with body mass index (BMI) of 45.0 to 49.9 in adult ([facility]) Autoimmune disease (CMS/HCC) Autoimmune disease, not elsewhere classified Essential (primary) hypertension (CMS/[facility]) Unspecified essential hypertension Other chronic pain Type 2 diabetes mellitus without complications ([facility]) Type 2 diabetes mellitus without complication, without long-term current use of insulin ([facility])- Primary Primary insomnia Persistent disorder of initiating or maintaining sleep Essential hypertension, benign (CMS/[facility]) Essential hypertension, benign Class 3 severe obesity due to excess calories without serious comorbidity with body mass index (BMI) of 45.0 to 49.9 in adult ([facility]) Depression, unspecified depression type (CMS/[facility]) Type 2 diabetes mellitus without complication, without long-term current use of insulin ([facility])- Primary Essential hypertension, benign (CMS/[facility]) Essential hypertension, benign Asymptomatic microscopic hematuria Degenerative disc disease, cervical Class 3 severe obesity due to excess calories without serious comorbidity with body mass index (BMI) of 45.0 to 49.9 in adult ([facility]) Upper extremity weakness- Primary Other musculoskeletal symptoms referable to limbs Morbid (severe) obesity due to excess calories (CMS/[facility]) Body mass index (BMI) 40.0-44.9, adult ([facility]) Rheumatoid arthritis with rheumatoid factor, unspecified (CMS/[facility]) Depression, unspecified (CMS/[facility]) Type 2 diabetes mellitus without complication, without long-term current use of insulin ([facility]) Other seasonal allergic rhinitis Essential hypertension, benign (CMS/HCC) Essential hypertension, benign Essential (primary) hypertension (CMS/HCC) Unspecified essential hypertension Type 2 diabetes mellitus without complications (CMS/[facility]) Other chronic pain Primary insomnia Persistent disorder [...] Moderate episode of recurrent major depressive disorder (CMS/[facility]) Type 2 diabetes mellitus without complication, without long-term current use of insulin (CMS/[facility]) documented in this encounter [facility] general Narrative - Reported* Type Description Date Medical History rheumatoid arthritis Medical History type 2 diabeties Medical History Benign essential HTN Medical History Depression Surgical History tonsillectomy and adenoidectomy 1987 Hospitalization History tonsillitis childo d [employer] Other Hospital Discharge instructionsAmbulatory Orders* PT/OT/SP OutPatient Referral Time Frame: 1 Day, Location: Determined By Patient Additional Instructions Follow up in the neurology office. Follow up with your [employer] in [place] Work Phone: Hospital Discharge instructions* Attachments The following attachments cannot be sent through Care Everywhere. * Weakness: Generalized (Maori) * Numbness and Tingling (Maori) documented in this encounter[facility] SystemInstructionsNot on filedocumented in this encounterProMediSelect [facility] SystemInstructionsNot on filedocumented in this encounterProDelaware [facility] SystemReason for referral (narrative)* Consultation (Routine) - New Request Specialty Diagnoses / Procedures Referred By Rosalie kim Referred To Contact Podiatry Diagnoses Injury of toe on right foot, initial encounter Gale Roca, MOTEL CLERK-SUPERVISOR [address] [place] [address] Referral ID Status Reason Start Date Expiration Date V isits Requested Visits Authorized [id number] New Request 06/18/2024 07/13/2025 1 1 [facility] Consultation (Routine) - New Request Specialty Diagnoses / Procedures Referred By Contac t Referred To Contact Neurology Diagnoses Generalized weakness Paresthesia of skin Hector Napoles MD [address] [place] [address] Referral ID Status Reason Start Date Expiration Date V isits Requested Visits Authorized [id number] New Request 06/22/2024 07/17/2025 1 1 [facility] Summary Purpose Family History Relationship [...] Upper extremity weakness Chief Complaint Sent from [place] E R leg numbness Reason for Visit Diabetes HTN (hypertension) Upper extremity weakness Bilateral arm weakness Bilateral leg weakness Diabetes Falls Fasciculation HTN (hypertension) Leukocytosis Upper extremity weakness Reason for Referral Specialty Diagnoses / Procedures Referred By Contac t Referred To Contact Diagnoses Brachial plexopathy Procedures CONSULT TO NEUROMUSCULAR MEDIC OFFICE/OUTPATIENT NEW HIGH [facility] 60 MINUTES Keith Leone MD [address] [place] [address] Referral ID Status Reason Start Date Expiration Date Visits Requested Visits Authorized [id number] Authorized PCP Requested Referral 4 07/10/2025 1 1 Specialty Diagnoses / Procedures Referred By Rosalie kim Referred To Contact [facility] Diagnoses Brachial plexopathy Procedures CONSULT TO ACOUSTICAL TILE 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 PRESS 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 OCCUPATIONAL THERAPY EVAL HIGH COMPLEX 60 [place] [address] [place] [address] [facility] [place] [address] Referral ID Status Reason Start Date Expiration Date Visits Requested Visits Authorized [id number] Pending Review Auto-Generat ed Referral 4 07/10/2025 1 1 Specialty Diagnoses / Procedures Referred By Rosalie kim Referred To Contact [facility] Diagnoses Brachial plexopathy Procedures EMG(NEURO/NI) NERVE CONDUCTION STUDIES 9-10 STUDIES Keith Leone MD [address] [place] [address] [place] [address] Referral ID Status Reason Start Date Expiration Date Visits Requested Visits Authorized [id number] New Request Auto-Generat ed Referral 4 07/10/2025 1 1 Additional Source Comments (unrecognized sect ion and content) No Status Records FoundNo Status Records FoundNo Status Records FoundNo Status Records FoundNo Status Records FoundNo Status Records FoundNo Status Records FoundNo Status Records FoundNo Status Records Found INFORMATION SOURCE (unrecogn ized section and content) DATE CREATED AUTHOR 11/14/2018 [facility] DATE CREATED AUTHOR AUTHOR'S ORGANIZ ATION 04/25/2022 [facility] DATE CREATED AUTHOR AUTHOR'S ORGANIZ ATION 04/08/2024 [facility] DATE CREATED AUTHOR AUTHOR'S ORGANIZ ATION 06/11/2024 [facility] DATE CREATED AUTHOR AUTHOR'S ORGANIZ ATION 06/17/2024 [facility] DATE CREATED AUTHOR AUTHOR'S ORGANIZ ATION 06/25/2024 [facility] DATE CREATED AUTHOR AUTHOR'S ORGANIZ ATION 07/12/2024 [facility] DATE CREATED AUTHOR AUTHOR'S ORGANIZ ATION 07/13/2024 [facility] DATE CREATED AUTHOR AUTHOR'S ORGANIZ ATION 07/25/2024 [facility] dical Specialists EPIC Source Comments (unrecognize d section and content) In the event this informatio n is protected by the Federal Confidentiality of Alcohol and Drug Abuse Patient Records regulations: The Federal rules restrict any use of the information to criminally investigate or prosecute any alcohol or drug abuse patient.[facility] Center[facility] the event this information is protected by the Federal Confidentiality of Alcohol and Drug Abuse Patient Records regulations: The Federal rules restrict any use of the information to criminally investigate or prosecute any alcohol or drug abuse patient.[facility] CenterIn the event this information is protected by the Federal Confidentiality of Alcohol and Drug Abuse Patient Records regulations: The Federal rules restrict any use of the information to criminally investigate or prosecute any alcohol or drug abuse patient.[facility] Reason for Visit (unrecogniz ed [...] Care Teams (unrecognized sec tion and content) Beautician Apprentice Relationship Specialty Start Date End Date Lexa Hickman MD PCP - General Family Medicine 03/15/23 Cecy Hernandez NP [address] [place] [address] Referring Physician Nurse Practitioner 03/15/23 Team Status: [...] March 30, 2024 End: March 30, 2024 Beautician Apprentice Relationship Specialty Start Date End Date Lexa Hickman MD [address] [place] [phone] PCP - General Family Medicine 11/16/23 Cecy Hernandez NP [address] [place] [phone] Referring Physician Nurse Practitioner 03/15/23 Cecy Hernandez NP [address] [place] [phone] Nurse Practitioner Family Medicine 11/16/23 Beautician Apprentice Relationship Specialty Start Date End Date Lexa Hickman MD [address] [place] [phone] PCP - General Family Medicine 11/16/23 Cecy Hernandez NP [address] [place] [address] Referring Physician Nurse Practitioner 03/15/23 Cecy Hernandez NP [address] [place] [phone] Nurse Practitioner Family Medicine 11/16/23 Beautician Apprentice Relationship Specialty Start Date End Date Cecy Hernandez CNP [address] [place] [phone] PCP - General Certified Nurse Practitioner 06/22/24 Beautician Apprentice Relationship Specialty Start Date End Date Unallocated, Brandons MD Stephan [address] [facility] [place] [address] PCP - General Family Medicine 06/11/24 Cecy Hernandez NP [address] [place] [phone] Referring Physician Nurse Practitioner 03/15/23 Cecy Hernandez NP [address] [place] [phone] Nurse Practitioner Family Medicine 11/16/23 Beautician Apprentice Relationship Specialty Start Date End Date Unallocated, Serena Rothman MD [address] [place] [address] PCP - General Family Medicine 06/11/24 Cecy Hernandez NP [address] [place] [address] Referring Physician Nurse Practitioner 03/15/23 Cecy Hernandez NP [address] [place] [address] Nurse Practitioner Family Medicine 11/16/23 Beautician Apprentice Relationship Specialty Start Date End Date Unallocated, Serena Rothman MD [address] [place] [address] PCP - General Family Medicine 06/11/24 Cecy Hernandez NP [address] [place] [phone] Referring Physician Nurse Practitioner 03/15/23 Cecy Hernandez NP [address] [place] [phone] Nurse Practitioner Family Medicine 11/16/23 Beautician Apprentice Relationship Specialty Start Date End Date Cecy Hernandez CNP [address] [place] [address] PCP - General Family Medicine 06/24/24 Beautician Apprentice Relationship Specialty Start Date End Date Cecy Hernandez [employer] [address] [place] [address] PCP - General Family Medicine 06/24/24 Beautician Apprentice Relationship Specialty Start Date End Date Lexa Hickman MD [address] [place] [phone] PCP - General Family Medicine 06/27/24 Cecy Hernandez NP [address] [place] [phone] Referring Physician Nurse Practitioner 03/15/23 Cecy Hernandez NP [address] [place] [phone] Nurse Practitioner Family Medicine 11/16/23 Beautician Apprentice Relationship Specialty Start Date End Date Lexa Hickman MD [address] [place] [phone] PCP - General Family Medicine 06/27/24 Cecy Hernandez NP [address] [place] [phone] Referring Physician Nurse Practitioner 03/15/23 Cecy Hernandez NP [address] [place] [phone] Nurse Practitioner Family Medicine 11/16/23 Beautician Apprentice Relationship Specialty Start Date End Date Lexa Hickman MD [address] [place] [phone] PCP - General Family Medicine 06/27/24 Cecy Hernandez NP [address] [place] [phone] Referring Physician Nurse Practitioner 03/15/23 Cecy Hernandez NP [address] [place] [phone] Nurse Practitioner Family Medicine 11/16/23 Scheduled Active [...] BE BASED ON THE PRIMARY CLINICAL RECORDS. [employer] provides no warranty or guarantee of the accuracy or completeness of information in this document.
--- NOTE | 2024-08-08 09:59 | P.HP_ITS ---
HPI H&P: HPI History of Present Illness Chief complaint: GENERAL WEAKNESS; Narrative: Patient presented to the emergency room with increased weakness. He is gotten to the point that he is unable to feed himself. He has had workup initiated for this in the past. He is seeing [facility], he has been told he has some form of rheumatoid arthritis. To him is not the joint stiffness is much as is the weakness that is just been progressive specially over the last couple of months. It has gotten to the point that again he is unable to feed himself unable to ambulate unable to toilet. Opioid HPI Opioid Management Most Recent Pain and Opioid Data: Last Pain Scale 0 08/08/24 08:41 08/08/24 Last Pain Assessment 08/08/24 09:10 Last ORT Total Score 3 08/08/24 08:13 08/08/24 Last ORT Risk Category Low Risk 08/08/24 08:13 08/08/24 Review of Systems ROS Status of ROS 10 or more systems reviewed and unremark able except as noted in history and below PFSH PFS Medical History Numbness of fingers of both hands ?R20.0 - Anesthesia of skin (ICD-10) Sleep apnea ?G47.30 - Sleep apnea, unspecified (ICD-10) Diabetes ?E11.9 - Type 2 diabetes mellitus without complications (ICD-10) Type 2 diabetes mellitus ?E11.9 - Type 2 diabetes mellitus without complications (ICD-10) Tonsillitis ?J03.90 - Acute tonsillitis, unspecified (ICD-10) Seasonal allergies ?J30.2 - Other seasonal allergic rhinitis (ICD-10) Rheumatoid arthritis ?M06.9 - Rheumatoid arthritis, unspecified (ICD-10) EDDI (obstructive sleep apnea) ?G47.33 - Obstructive sleep apnea (adult) (pediatric) (ICD-10) Hypertension ?I10 - Essential (primary) hypertension (ICD-10) Epigastric pain ?R10.13 - Epigastric pain (ICD-10) Depression ?F32.A - Depression, unspecified (ICD-10) Obesity ?E66.9 - Obesity, unspecified (ICD-10) Chronic pain ?G89.29 - Other chronic pain (ICD-10) Cellulitis ?L03.90 - Cellulitis, unspecified (ICD-10) Anxiety ?F41.9 - Anxiety disorder, unspecified (ICD-10) Surgical History Hx of tonsillectomy ?Z90.89 - Acquired absence of other organs (ICD-10) H/O adenoidectomy ?Z90.89 - Acquired absence of other organs (ICD-10) Family History (Updated 08/08/24 @ 08:43 by Fany Rae) Other Family history of colon cancer Family history of diabetes mellitus Family history of heart disease Family history of hypertension Family history of stroke Social History (Updated 08/08/24 @ 08:44 by Fany Rae) Within the past year, how often did you have a drink containing alcohol: never Score interpretation: A score less than 4 is consistent with normal alcohol consumption. Smoking status: Former smoker Non-prescribed substance use: denies use Previous occupational history: does not work Highest level of school completed/degree received: high school graduate In a typical week, how many times do you talk on the telephone with family, friends, or neighbors: once per week How often do you get together with friends or relatives: once per week How often do you attend confucianism or jew services: never Do you belong to any clubs or organizations such as confucianism groups unions, fraternal or athletic groups, or school groups: no Little interest or pleasure in doing things: several days Feeling down, depressed, or hopeless: not at all Feel stressed/tense/nervous/anxious/difficulty sleeping: to some extent Life stressor details: homeless Due to disability, difficulty making decisions: No Do you think of yourself as: straight/heterosexual Gender Identity: male Meds Home Medications and Allergies Home Medications ?Medication ?Instructions ?Recorded ?Confirmed ?Type loratadine 10 mg tablet (Allergy 10 mg PO DAILY 01/16/24 08/08/24 History Relief (loratadine)) meloxicam 15 mg tablet 15 mg PO DAILY 01/16/24 08/08/24 History metformin 1,000 mg tablet 500 mg PO .with meals 01/16/24 08/08/24 History pioglitazone 30 mg tablet (Actos) 30 mg PO DAILY 04/12/24 08/08/24 History amitriptyline 10 mg tablet 10 mg PO Q24H 08/08/24 08/08/24 History aspirin 81 mg chewable tablet 1 tab PO .QD 08/08/24 08/08/24 History citalopram 40 mg tablet 40 mg PO .QD 08/08/24 08/08/24 History dapagliflozin propanediol 5 mg 5 mg PO .QD 08/08/24 08/08/24 History tablet (Farxiga) fluticasone propionate 50 2 spray intranasal .QD 08/08/24 08/08/24 History mcg/actuation nasal spray,suspension lisinopril 20 1 tab PO .QD 08/08/24 08/08/24 History mg-hydrochlorothiazide 25 mg tablet simvastatin 20 mg tablet 20 mg PO .QHS 08/08/24 08/08/24 History tizanidine 4 mg tablet 4 mg PO .QHS PRN muscle spasticity 08/08/24 08/08/24 History Allergies Allergy/AdvReac Type Severity Reaction Status Date / Time adhesive tape Allergy Mild Rash Verified 08/08/24 02:32 almond Allergy Mild Rash Verified 08/08/24 02:32 penicillin G Allergy Mild Vomiting Verified 08/08/24 02:32 oxytetracycline AdvReac Unknown Unknown Verified 08/08/24 02:32 cashews Allergy Mild Rash Uncoded 08/08/24 02:32 Exam Constitutional Vital Signs, click to edit/add: Last Vital Signs Temp 98.1 F 08/08/24 08:13 Pulse 78 08/08/24 08:13 Resp 18 08/08/24 08:13 BP 146/84 H 08/08/24 08:13 Pulse Ox 96 08/08/24 08:13 O2 Del Method Room Air 08/08/24 08:13 Documenting provider has reviewed patient's vital signs: yes Common normals: no apparent distress Chest Common normals: inspection of chest normal Respiratory Common normals: normal respiratory effort and no retractions Cardio Common normals: no JVD, regular rate and regular rhythm GI Common normals: Normal to inspection, nondistended, normoactive bowel sounds present Extremity Common normals: abnormal to inspection (Hands with mild synovitis, no obvious deformity decreased range of motion) Other: Poor strength in bilateral lower extremities. Poor strength in upper extremities as well. Neuro Common normals: oriented x3 and CN's II-XII intact bilaterally; does not move all extremities (Noticeable very slow deliberate weak) Results Labs Labs: Short CBC 08/08/24 Range/Units 03:48 WBC 11.6 H (4.0-11.0) 10^3/uL Hgb 15.2 (14.0-18.0) g/dL Hct 45.2 (42.0-54.0) % Plt Count 315 (150-450) 10^3/uL BMP 08/08/24 03:48 Sodium 140 Potassium 3.8 Chloride 104 Carbon Dioxide 25.3 BUN 8.0 Creatinine 0.82 Glucose 113 H Calcium 9.2 Cardiac Enzymes 08/08/24 Range/Units 03:48 Total Creatine Kinase 52 (39-308) U/L Liver Function 08/08/24 Range/Units 03:48 Total Bilirubin 0.8 (0.2-1.0) mg/dL AST 15 (15-37) U/L ALT 25 (16-63) U/L Alkaline Phosphatase 89 (46-116) U/L Albumin 3.9 (3.4-5.0) g/dL Assessment and Plan Assessment and Plan (1) Bilateral arm weakness: (2) Cervical spinal stenosis: (3) Paresthesia: (4) Numbness of fingers of both hands: (5) Sleep apnea: (6) Type 2 diabetes mellitus: (7) Hypertension: (8) Depression: Plan Admission findings: Sinus tachycardia, mild respiratory distress, mild leukocytosis, rest of labs are unremarkable but more are pending. Findings on exam consistent with progressive weakness consistent with some sort of progressive neuromuscular disorder. 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 He has had MRI scans at an outside facility will see if those images can get pushed into our system for evaluation by teleneurology. This could be brain and cervical spine. No focal neurological deficits consistent with stroke. Patient denies difficulty with speech and no noticeable speech pattern deficiencies on exam. Mild tachycardia-monitor Mild respiratory distress, no cough no dyspnea per patient. Leukocytosis-mild, repeat labs in a.m. but likely will be higher secondary to steroids denies any complaints of cough, sinus symptoms, GI symptoms or UTI symptoms Diabetes mellitus-insulin sliding scale plus home medications likely to be exacerbated by a dose of steroids. Insomnia continue with home medications Depression secondary to the progressive nature of his weakness has been over the last several months. Continue with current medications Hypertension-continue with home medications Hypercholesterolemia continue with home medications Admission status: Patient with progressive neuromuscular disorder-uncertain etiology, needs further workup, unable to ambulate, unable to feed self secondary to the weakness. With failed outpatient management of his neuromuscular disorder will start patient off as inpatient as medically necessary treatment will span more than 2 midnights.
[2024-08-08 10:34] LABS: Basophils Percent Auto 0.1 % (0.2-2.0); Eosinophils Percent Auto 0.1 % (0.9-7.0); Hematocrit 45.5 % (42.0-54.0); Hemoglobin 15.4 g/dL (14.0-18.0); Immature Granulocytes Abs Auto 0.03 10^3/uL (0.00-0.03); Immature Granulocytes Pct Auto 0.3 % (0.0-0.5); Lymphocytes Percent Auto 10.6 % (20.5-60.0); Mean Corpuscular HGB Conc 33.8 g/dL (29.9-35.2); Mean Corpuscular Hemoglobin 30.1 pg (25.9-34.0); Mean Platelet Volume 9.3 fL (9.5-13.5); Monocytes Percent Auto 0.4 % (1.7-12.0); Neutrophils Absolute Auto 8.1 10^3/uL (1.4-6.5); Neutrophils Percent Auto 88.5 % (43.0-75.0); Platelet Count 309 10^3/uL (150-450); Red Blood Count 5.11 10^6/uL (4.70-6.10); Red Cell Distribution Width 12.1 % (11.0-15.0); White Blood Count 9.2 10^3/uL (4.0-11.0)
[2024-08-08 10:38] LABS: PCO2 VBG 40.5 mmHg (40.0-52.0); pH VBG 7.379 (7.330-7.430)
[2024-08-08 10:49] LABS: Ammonia 16 umol/L (11-32)
[2024-08-08 10:51] LABS: C Reactive Protein 0.88 mg/dL (<=0.50); Magnesium 1.8 mg/dL (1.8-2.4)
[2024-08-08] MEDS: METHYLPREDNISOLONE SOD SUCC 500 MG in 0.9 % SODIUM CHLORIDE 100 ML 100 MG IV (10:52)
[2024-08-08 10:56] LABS: Lactate/Lactic Acid 1.4 mmol/L (0.4-2.0)
[2024-08-08 10:57] LABS: Glucometer 166 mg/dL (74-106)
[2024-08-08 10:57] LABS: Anion Gap 16.6; BUN Creatinine Ratio 14.3; Calcium 8.9 mg/dL (8.5-10.1); Carbon Dioxide 25.4 mmol/L (21.0-32.0); Chloride 102 mmol/L (98-107); Estimated GFR (African America >60 (>=60 mL/min/1.73m^2); Estimated GFR (Non-African Ame >60 (>=60 mL/min/1.73m^2); Glucose 180 mg/dL (74-106); Sodium 140 mmol/L (136-145); Troponin I High Sensitivity 4.5 pg/mL (4.0-76.1)
[2024-08-08 11:02] LABS: Erythrocyte Sedimentation Rate 25 mm/hr (<=15)
[2024-08-08] MEDS: ASPIRIN 81 MG TAB.CHEW PO (11:02)
[2024-08-08] MEDS: CITALOPRAM HYDROBROMIDE 20 MG TABLET 40 MG PO (11:02)
[2024-08-08 11:03] LABS: Thyroid Stimulating Hormone 0.441 uIU/mL (0.358-3.740)
[2024-08-08] MEDS: LISINOPRIL 20 MG TABLET PO (11:03)
[2024-08-08] MEDS: INSULIN ASPART 300 UNIT/3 ML PEN SUBQ ×3 (11:03→23:10)
[2024-08-08] MEDS: CANAGLIFLOZIN 100 MG TABLET PO (11:03)
[2024-08-08] MEDS: HYDROCHLOROTHIAZIDE 25 MG TABLET PO (11:03)
--- NOTE | 2024-08-08 11:19 | CM.NOTE ---
Jose Alejandro rittert sent to Dr. Batres, records have been obtained from [facility] and [facility]. Lexa Bah will call to get MRI results forwarded so teleneuro can view. PT and OT will evaluate patient.
--- NOTE | 2024-08-08 12:40 | DIETREC ---
Change diet to Regular consistent carbohydrate diet
--- NOTE | 2024-08-08 14:19 | SWNOTE1 ---
SW met with pt to discuss dc needs. 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 His mother got a new boyfriend and the boyfriend kicked him out. He went to live with his sister, but she ended up teaming up with there mother and she kicked him out as well. Pt then lived with his brother in [place], but him and his have been trying to have a baby and they asked for him to move out. He then went to live with his other sister in [place]. He voiced she came home drunk the other night and was screaming at her daughter. The police were called as his niece said she was suicidal and now he thinks she is at a facility in [facility]. He mentioned CPS being involved as well. SW asked if he was involved in the CPS case. He stated that it was due to her being suicidal and the police coming. He stated he has been there for his niece since she was a . His niece used to walk over to his and his mother's home to get away from her mother. At this time SW does not feel CPS needs to be notified of anything as that is not pertaining to the patient. SW asked what pt's goal was from the hospital? Pt voiced he wants to get better. SW explained that at this time therapy did recommend SNF at a facility. Pt is agreeable to this. SW explained to pt that with his insurance he will have limited choices. Pt is alright with anywhere. BELINDA also explained to pt that the nursing facility will want to know his plan after rehab. Pt stated he is honestly not sure. SW asked if there was a chance he would stay at a facility alf? He might be alright with this until he finds a place to live. SW to work on placement for pt. Pt will be a precert thru his [employer] Medicaid.
--- NOTE | 2024-08-08 14:45 | SWNOTE1 ---
BELINDA did speak with a nurse navigator from [facility] in regards to pt. He was last at [facility] on 07/22/24. They determined he had not been taking some of his meds. He has also not been able to get in to neurologist or home health in due to his insurance. SW to speak with pt. BELINDA did ask pt about not taking meds. He stated he stopped taking many thing due to his visit in [place] and them recommending he stop meds to see if any of this contributes to his health.
--- NOTE | 2024-08-08 15:44 | SWNOTE1 ---
BELINDA spoke with Kavita at [facility] and they do have openings and will review and do take his insurance. Referral sent to [facility]. Referral included face sheet, ED note, H&P, provider notes, case management report, nursing notes, diagnostic imaging, med list, and PT/OT notes. [facility] is able to accept and they are starting precert. It will be a semi-private room. BELINDA let pt and nursing know.
[2024-08-08 16:05] LABS: Glucometer 153 mg/dL (74-106)
--- NOTE | 2024-08-08 16:09 | SWNOTE1 ---
SW notified pt of semi-private room at [facility] and precert started. Pt is in agreement with this plan. SW also spoke with pt about Assisted Living after rehab and explaining that some facilities do take Medicaid as payment. Pt voiced understanding. BELINDA advised pt that [facility] does have SW and billing that will assist with transition from rehab to wherever pt would like to go such as adjunct faculty for medical terminology or AL.
--- NOTE | 2024-08-08 17:35 | P.DS_ITS ---
DS: Providers Provider Date of admission: 08/08/24 08:05 Primary care physician: Cecy Hernandez NP Consults: 08/08/24 Consult to Livestock Nutritionist Routine Reason for consult:: Housing/[facility] Other reason:: senior living r/t homeless and inability to care for self. 08/08/24 09:49 Consult to Pharmacy Routine Consulting Provider: Reason for consultation: Please Newton me when Med Rec is Updated Has provider been notified: No Consult to TeleNeurology Routine Reason for consultation: muscle weakness Has provider been notified: No Occupational Therapy Eval and Treat Routine Reason for consultation: Only if needed for Rehab Has provider been notified: No Physical Therapy Eval and Treat Routine Reason for consultation: Eval and Treat Has provider been notified: No DS: Diagnosis Discharge Diagnosis (1) Bilateral arm weakness: (2) Cervical spinal stenosis: (3) Paresthesia: (4) Numbness of fingers of both hands: (5) Sleep apnea: (6) Type 2 diabetes mellitus: (7) Hypertension: (8) Depression: Plan Admission findings: Sinus tachycardia, mild respiratory distress, mild leukocytosis, rest of labs are unremarkable but more are pending. Findings on exam consistent with progressive weakness consistent with some sort of progressive neuromuscular disorder. 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 He has had MRI scans at an outside facility will see if those images can get pushed into our system for evaluation by teleneurology. This could be brain and cervical spine. No focal neurological deficits consistent with stroke. Patient denies difficulty with speech and no noticeable speech pattern deficiencies on exam. Mild tachycardia-monitor Mild respiratory distress, no cough no dyspnea per patient. Leukocytosis-mild, repeat labs in a.m. but likely will be higher secondary to steroids denies any complaints of cough, sinus symptoms, GI symptoms or UTI symptoms Diabetes mellitus-insulin sliding scale plus home medications likely to be exacerbated by a dose of steroids. Insomnia continue with home medications Depression secondary to the progressive nature of his weakness has been over the last several months. Continue with current medications Hypertension-continue with home medications Hypercholesterolemia continue with home medications Admission status: Patient with progressive neuromuscular disorder-uncertain etiology, needs further workup, unable to ambulate, unable to feed self secondary to the weakness. With failed outpatient management of his neuromuscular disorder will start patient off as inpatient as medically necessary treatment will span more than 2 midnights. DS: Summary Hospital Course Hospital Course: Patient to the emergency room with long history of progressive weakness. Been going on for months, over the last several weeks he states his cough definitely gotten worse, unable to toilet himself very effectively, as well as difficulty eating as he is cannot raise his arms up to put fluid up into his mouth. He is actually lost about 20 pounds he states because of that. Workup in the emergency room was really unremarkable. He was given a large dose of and Solu- Medrol, 500 mg IV once, yesterday somewhat better with that. Multiple more labs were obtained, in the meantime we consulted teleneurology, after lengthy discussion they felt with his progressive nature and further testing warranted that we would not be able to accomplish here that they wanted him transferred up to [facility], arrangements have been made for transfer to [facility] under the care of Dr. Hester. Medications see this. Follow-up with PCP Time Spent with Patient Time attestation: Total time spent providing and/or coordinating discharge services: Exam Constitutional Vital Signs, click to edit/add: Last Vital Signs Temp 98.4 F 08/08/24 15:00 Pulse 92 H 08/08/24 15:00 Resp 18 08/08/24 15:00 BP 113/75 08/08/24 15:00 Pulse Ox 94 L 08/08/24 15:00 O2 Del Method Room Air 08/08/24 15:00 Documenting provider has reviewed patient's vital signs: yes Common normals: no apparent distress Chest Common normals: inspection of chest normal Respiratory Common normals: normal respiratory effort and no retractions Cardio Common normals: no JVD, regular rate and regular rhythm GI Common normals: Normal to inspection, nondistended, normoactive bowel sounds present Extremity Common normals: abnormal to inspection (Hands with mild synovitis, no obvious deformity decreased range of motion) Other: Poor strength in bilateral lower extremities. Poor strength in upper extremities as well. Neuro Common normals: oriented x3 and CN's II-XII intact bilaterally; does not move all extremities (Noticeable very slow deliberate weak) DS: Data Data Completed and Pending Labs on day of discharge: Labs from last 24 hours 08/08/24 08/08/24 08/08/24 16:03 10:55 10:21 WBC 9.2 RBC 5.11 Hgb 15.4 Hct 45.5 MCV 89.0 MCH 30.1 MCHC 33.8 RDW 12.1 Plt Count 309 MPV 9.3 L Neut % (Auto) 88.5 H Lymph % (Auto) 10.6 L [place] % (Auto) 0.4 L Eos % (Auto) 0.1 L Baso % (Auto) 0.1 L Neut # (Auto) 8.1 H Lymph # (Auto) 1.0 L [place] # (Auto) 0.0 L Eos # (Auto) 0.0 Baso # (Auto) 0.0 Abs Immat Gran (auto) 0.03 Imm/Tot Granulo (auto) 0.3 ESR 25 H VBG pH 7.379 VBG pCO2 40.5 Sodium 140 Potassium 4.0 Chloride 102 Carbon Dioxide 25.4 Anion Gap 16.6 BUN 10.0 Creatinine 0.70 Est GFR ( Amer) >60 Est GFR (Non-Af Amer) >60 BUN/Creatinine Ratio 14.3 Glucose 180 H Lactate 1.4 Calcium 8.9 Magnesium 1.8 Total Bilirubin AST ALT Alkaline Phosphatase Ammonia 16 Total Creatine Kinase Troponin I High Sens 4.5 C-Reactive Protein 0.88 H Total Protein Albumin Globulin Albumin/Globulin Ratio Folate 18.10 TSH 0.441 Thyroxine (T4) 8.20 Free T3 2.30 Acetone, Qual POC Glucose 153 H 166 H 08/08/24 03:48 WBC 11.6 H RBC 5.14 Hgb 15.2 Hct 45.2 MCV 87.9 MCH 29.6 MCHC 33.6 RDW 12.2 Plt Count 315 MPV 9.2 L Neut % (Auto) 75.8 H Lymph % (Auto) 16.3 L [place] % (Auto) 6.6 Eos % (Auto) 0.7 L Baso % (Auto) 0.3 Neut # (Auto) 8.8 H Lymph # (Auto) 1.9 [place] # (Auto) 0.8 Eos # (Auto) 0.1 Baso # (Auto) 0.0 Abs Immat Gran (auto) 0.03 Imm/Tot Granulo (auto) 0.3 ESR VBG pH VBG pCO2 Sodium 140 Potassium 3.8 Chloride 104 Carbon Dioxide 25.3 Anion Gap 14.5 BUN 8.0 Creatinine 0.82 Est GFR ( Amer) >60 Est GFR (Non-Af Amer) >60 BUN/Creatinine Ratio 9.8 Glucose 113 H Lactate Calcium 9.2 Magnesium Total Bilirubin 0.8 AST 15 ALT 25 Alkaline Phosphatase 89 Ammonia Total Creatine Kinase 52 Troponin I High Sens C-Reactive Protein Total Protein 7.4 Albumin 3.9 Globulin 3.5 Albumin/Globulin Ratio 1.1 Folate TSH Thyroxine (T4) Free T3 Acetone, Qual Negative POC Glucose Discharge Plan Discharge Disposition: Xfer Acute Care Hospital Condition: Fair
[2024-08-08 19:52] LABS: Glucometer 185 mg/dL (74-106)
[2024-08-09 03:00] VITALS: BP 112/71; PULSE 93; TEMP 36.4; O2SAT 93
--- NOTE | 2024-08-09 03:15 | PC.NURSE ---
Upon entering room patient opened a pack of saltine crackers and was grasping a cracker. Patient stated he feels the steroid is wearing off d/t his arms feeling weaker. Patient ambulated well and he said this has improved.
[2024-08-09 07:40] VITALS: BP 122/71; PULSE 77; TEMP 36.7; O2SAT 97
[2024-08-09 08:01] LABS: Glucometer 147 mg/dL (74-106)
[2024-08-09 08:10] LABS: Rheumatoid Factor (RF) 15.4 IU/mL (<14.0)
--- NOTE | 2024-08-09 08:39 | CM.NOTE ---
Rounds made with Dr. Batres. Potential transfer to [facility] once bed available. Mr. Umana verbalizes understanding.
--- NOTE | 2024-08-09 08:44 | SWNOTE1 ---
Plan is for pt to be transferred to [facility]. SW called [facility] and let them know pt is going to be transferred to [facility].
--- NOTE | 2024-08-09 08:54 | P.DS_ITS ---
DS: Providers Provider Date of admission: 08/08/24 09:49 Primary care physician: Cecy Hernandez NP Consults: 08/08/24 Consult to Crew Leader Gluing Routine Reason for consult:: Housing/Snf Other reason:: snf r/t homeless and inability to care for self. 08/08/24 09:49 Consult to Pharmacy Routine Consulting Provider: Reason for consultation: Please [place] me when Med Rec is Updated Has provider been notified: No Consult to TeleNeurology Routine Reason for consultation: muscle weakness Has provider been notified: No Occupational Therapy Eval and Treat Routine Reason for consultation: Only if needed for Rehab Has provider been notified: No Physical Therapy Eval and Treat Routine Reason for consultation: Eval and Treat Has provider been notified: No DS: Diagnosis Discharge Diagnosis (1) Bilateral arm weakness: (2) Cervical spinal stenosis: (3) Paresthesia: (4) Numbness of fingers of both hands: (5) Sleep apnea: (6) Type 2 diabetes mellitus: (7) Hypertension: (8) Depression: Plan Admission findings: Sinus tachycardia, mild respiratory distress, mild leukocytosis, rest of labs are unremarkable but more are pending. Findings on exam consistent with progressive weakness consistent with some sort of progressive neuromuscular disorder. 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 Leukocytosis-resolved Diabetes mellitus-stable Insomnia continue with home medications Depression secondary to the progressive nature of his weakness has been over the last several months. Continue with current medications Hypertension-continue with home medications Hypercholesterolemia continue with home medications Admission status: Patient with progressive neuromuscular disorder-uncertain etiology, needs further workup, unable to ambulate, unable to feed self secondary to the weakness. With failed outpatient management of his neuromuscular disorder will start patient off as inpatient as medically necessary treatment will span more than 2 midnights. DS: Summary Hospital Course Hospital Course: Patient to the emergency room with long history of progressive weakness. Been going on for months, over the last several weeks he states his cough definitely gotten worse, unable to toilet himself very effectively, as well as difficulty eating as he is cannot raise his arms up to put fluid up into his mouth. He is actually lost about 20 pounds he states because of that. Workup in the emergency room was really unremarkable. He was given a large dose of and Solu- Medrol, 500 mg IV once, yesterday somewhat better with that. Multiple more labs were obtained, in the meantime we consulted teleneurology, after lengthy discussion they felt with his progressive nature and further testing warranted that we would not be able to accomplish here that they wanted him transferred up to [facility], arrangements have been made for transfer to [facility] under the care of Dr. Hester. Medications see this. Follow-up with PCP Patient did feel some improvement with his steroids yesterday's will repeat that dose today pending transfer, 500 mg IV Solu-Medrol Time Spent with Patient Time attestation: Total time spent providing and/or coordinating discharge services: Exam Constitutional Vital Signs, click to edit/add: Last Vital Signs Temp 98.0 F 08/09/24 07:40 Pulse 77 08/09/24 07:40 Resp 18 08/09/24 07:40 BP 122/71 08/09/24 07:40 Pulse Ox 97 08/09/24 07:40 O2 Del Method Room Air 08/09/24 07:40 Documenting provider has reviewed patient's vital signs: yes Common normals: no apparent distress Chest Common normals: inspection of chest normal Respiratory Common normals: normal respiratory effort and no retractions Cardio Common normals: no JVD, regular rate and regular rhythm GI Common normals: Normal to inspection, nondistended, normoactive bowel sounds present Extremity Common normals: abnormal to inspection (Hands with mild synovitis, some better range of motion today) Other: Poor strength in bilateral lower extremities. Poor strength in upper extremities as well. Neuro Common normals: oriented x3 and CN's II-XII intact bilaterally; does not move all extremities (Noticeable very slow deliberate weak) DS: Data Data Completed and Pending Labs on day of discharge: Labs from last 24 hours 08/09/24 08/08/24 08/08/24 07:57 19:49 16:03 WBC RBC Hgb Hct MCV MCH MCHC RDW Plt Count MPV Neut % (Auto) Lymph % (Auto) [place] % (Auto) Eos % (Auto) Baso % (Auto) Neut # (Auto) Lymph # (Auto) [place] # (Auto) Eos # (Auto) Baso # (Auto) Abs Immat Gran (auto) Imm/Tot Granulo (auto) ESR VBG pH VBG pCO2 Sodium Potassium Chloride Carbon Dioxide Anion Gap BUN Creatinine Est GFR ( Amer) Est GFR (Non-Af Amer) BUN/Creatinine Ratio Glucose Lactate Calcium Magnesium Ammonia Troponin I High Sens C-Reactive Protein Folate TSH Thyroxine (T4) Free T3 Rheumatoid Factor POC Glucose 147 H 185 H 153 H 08/08/24 08/08/24 10:55 10:21 WBC 9.2 RBC 5.11 Hgb 15.4 Hct 45.5 MCV 89.0 MCH 30.1 MCHC 33.8 RDW 12.1 Plt Count 309 MPV 9.3 L Neut % (Auto) 88.5 H Lymph % (Auto) 10.6 L [place] % (Auto) 0.4 L Eos % (Auto) 0.1 L Baso % (Auto) 0.1 L Neut # (Auto) 8.1 H Lymph # (Auto) 1.0 L [place] # (Auto) 0.0 L Eos # (Auto) 0.0 Baso # (Auto) 0.0 Abs Immat Gran (auto) 0.03 Imm/Tot Granulo (auto) 0.3 ESR 25 H VBG pH 7.379 VBG pCO2 40.5 Sodium 140 Potassium 4.0 Chloride 102 Carbon Dioxide 25.4 Anion Gap 16.6 BUN 10.0 Creatinine 0.70 Est GFR ( Amer) >60 Est GFR (Non-Af Amer) >60 BUN/Creatinine Ratio 14.3 Glucose 180 H Lactate 1.4 Calcium 8.9 Magnesium 1.8 Ammonia 16 Troponin I High Sens 4.5 C-Reactive Protein 0.88 H Folate 18.10 TSH 0.441 Thyroxine (T4) 8.20 Free T3 2.30 Rheumatoid Factor 15.4 H POC Glucose 166 H Discharge Plan Discharge Condition: Fair Discharge Medications: No Action loratadine [Allergy Relief (loratadine)] 10 mg tablet 10 mg PO DAILY meloxicam 15 mg tablet 15 mg PO DAILY metformin 1,000 mg tablet 500 mg PO .with meals pioglitazone [Actos] 30 mg tablet 30 mg PO DAILY amitriptyline 10 mg tablet 10 mg PO Q24H Rx Instructions: PT TAKES AT 8 PM aspirin 81 mg tablet,chewable 1 tab PO .QD citalopram 40 mg tablet 40 mg PO .QD dapagliflozin propanediol [Farxiga] 5 mg tablet 5 mg PO .QD fluticasone propionate 50 mcg/actuation spray,suspension 2 spray INTRANASAL .QD lisinopril-hydrochlorothiazide 20-25 mg tablet 1 tab PO .QD simvastatin 20 mg tablet 20 mg PO .QHS tizanidine 4 mg tablet 4 mg PO .QHS PRN (Reason: muscle spasticity) Print Language: B[place]
[2024-08-09] MEDS: FLUTICASONE PROPIONATE 50 MCG NASAL SPRAY 2 SPRAY NS (09:00)
[2024-08-09] MEDS: CANAGLIFLOZIN 100 MG TABLET PO (09:00)
[2024-08-09] MEDS: HYDROCHLOROTHIAZIDE 25 MG TABLET PO (09:00)
[2024-08-09] MEDS: ASPIRIN 81 MG TAB.CHEW PO (09:00)
[2024-08-09] MEDS: LISINOPRIL 20 MG TABLET PO (09:01)
[2024-08-09 09:26] LABS: Basophils Percent Auto 0.1 % (0.2-2.0); Eosinophils Percent Auto 0.1 % (0.9-7.0); Hematocrit 43.8 % (42.0-54.0); Hemoglobin 14.8 g/dL (14.0-18.0); Immature Granulocytes Abs Auto 0.22 10^3/uL (0.00-0.03); Immature Granulocytes Pct Auto 0.8 % (0.0-0.5); Lymphocytes Absolute Auto 2.4 10^3/uL (1.2-3.8); Lymphocytes Percent Auto 8.6 % (20.5-60.0); Mean Corpuscular HGB Conc 33.8 g/dL (29.9-35.2); Mean Corpuscular Hemoglobin 29.6 pg (25.9-34.0); Mean Corpuscular Volume 87.6 fL (80.0-94.0); Mean Platelet Volume 9.1 fL (9.5-13.5); Monocytes Absolute Auto 1.2 10^3/uL (0.3-0.8); Monocytes Percent Auto 4.5 % (1.7-12.0); Neutrophils Absolute Auto 23.6 10^3/uL (1.4-6.5); Neutrophils Percent Auto 85.9 % (43.0-75.0); Platelet Count 377 10^3/uL (150-450); Red Cell Distribution Width 12.4 % (11.0-15.0); White Blood Count 27.5 10^3/uL (4.0-11.0)
[2024-08-09 09:47] LABS: Alanine Aminotransferase 32 U/L (16-63); Albumin Globulin Ratio 1.1; Albumin Level 3.9 g/dL (3.4-5.0); Alkaline Phosphatase 80 U/L (46-116); Anion Gap 18.5; Aspartate Amino Transferase 20 U/L (15-37); BUN Creatinine Ratio 17.1; Bilirubin Total 0.7 mg/dL (0.2-1.0); Calcium 9.1 mg/dL (8.5-10.1); Carbon Dioxide 23.6 mmol/L (21.0-32.0); Chloride 100 mmol/L (98-107); Estimated GFR (African America >60 (>=60 mL/min/1.73m^2); Estimated GFR (Non-African Ame >60 (>=60 mL/min/1.73m^2); Globulin 3.4 g/dL; Glucose 148 mg/dL (74-106); Potassium 4.1 mmol/L (3.5-5.1); Sodium 138 mmol/L (136-145); Total Protein 7.3 g/dL (6.4-8.2)
[2024-08-09] MEDS: METHYLPREDNISOLONE SOD SUCC 500 MG in 0.9 % SODIUM CHLORIDE 100 ML 100 MG IV (10:17)
--- NOTE | 2024-08-09 10:43 | PT.DAILY ---
Physical Therapy Daily Note PT Daily Note/Assess Start: 08/08/24 10:50 Freq: Status: Active Protocol: Document 08/09/24 10:27 OTTONIEL (Rec: 08/09/24 10:43 OTTONIEL [id number]) Physical Therapy Daily Note/Assessment Time In/Time Out Time In 09:50 Time Out 10:05 Pain In Pain N/A Pain Out Pain N/A Subjective Subjective Pt supine upon arrival. Agrees to PT. reports not sleeping well last night. Was able to take a shower yesterday but was very easily fatigued with this. Agrees to PT at this time. Therapeutic Activity Time Therapeutic Activity 8 Minutes (minutes) Therapeutic Activity 1 Units Therapeutic Activity Treatment Bed Mobility Ability Standby Assistance Therapeutic Activity Supine>sit SBA with increased time needed - unable to Comments use hands but does prop himself up on elbows. Pt sits EOB unsupported without LOB. Pt sit>stand SBA and static stands without LOB while another gown is donned on backside. Pt amb 200' without AD. Pt is able to carry conversation and looking side to side with gait without LOB. Pt returned to room. Static standing with CROM and attempting arm lifts (3x ea side) But unable to lift arms greater than 40 degree shoulder flexion today. returned to supine SBA. Call light within reach and needs met. Total Physical Therapy Time Total Therapy 8 Minutes Total Physical 1 Therapy Units Summary Daily Note Summary Improved gait endurance. Steady with static and dynamic standing balance. Limited shoulder flexion.
[2024-08-09 11:11] LABS: Vitamin B12 539 pg/mL (232-1245)
[2024-08-09 11:31] VITALS: BP 122/68; PULSE 72; TEMP 36.7; O2SAT 94
[2024-08-09 11:35] LABS: Glucometer 126 mg/dL (74-106)
[2024-08-09 14:08] LABS: ANA Direct Negative (Negative)
[2024-08-09 14:20] VITALS: BP 120/61; PULSE 110; TEMP 36.6; O2SAT 95
== END 2024-08-09 14:25 | disposition short-term general hospital (02) | DRG 48 ==
LOC: ER 06:31 → MS 08:10
PROVIDERS: Admitting Provider Family Medicine; Emergency Provider Emergency Medicine; PCP Nurse Practitioner; Visit Provider Family Medicine
DX: G70.9 Myoneural disorder, unspecified (principal); M62.549 Muscle wasting and atrophy, not elsewhere classified, unspecified hand; M62.559 Muscle wasting and atrophy, not elsewhere classified, unspecified thigh; M62.569 Muscle wasting and atrophy, not elsewhere classified, unspecified lower leg; R63.39 Other feeding difficulties; Z59.00 Homelessness unspecified; D72.829 Elevated white blood cell count, unspecified; E11.9 Type 2 diabetes mellitus without complications; E78.00 Pure hypercholesterolemia, unspecified; F32.A Depression, unspecified; G47.00 Insomnia, unspecified; G47.33 Obstructive sleep apnea (adult) (pediatric); I10 Essential (primary) hypertension; M06.9 Rheumatoid arthritis, unspecified; M48.02 Spinal stenosis, cervical region; M50.30 Other cervical disc degeneration, unspecified cervical region; R00.0 Tachycardia, unspecified; R06.03 Acute respiratory distress; Z79.82 Long term (current) use of aspirin; Z79.84 Long term (current) use of oral hypoglycemic drugs; Z87.891 Personal history of nicotine dependence; Z79.899 Other long term (current) drug therapy; Z88.0 Allergy status to penicillin; Z88.1 Allergy status to other antibiotic agents
CPT/HCPCS: 36415; 80048; 80053; 82009; 82140; 82550; 82607; 82746; 82800; 82948; 83605; 83735; 84436; 84443; 84481; 84484; 85025; 85652; 86038; 86140; 86431; 93005; 94667; 94668; 94761; 96374; 97161; 97165; 97530; 99285; J2919

== ENCOUNTER 2024-10-12 12:24 | Emergency (ER) | payer MEDICAID, SELFPAY ==
[2024-10-12 12:30] VITALS: BP 147/97; PULSE 97; TEMP 36.9; O2SAT 99; BMI 31.2
--- OUTSIDE RECORDS SUMMARY | 2024-10-12 12:32 | XMS_ITS | CCD ---
Author Organization [facility] Care Team Providers Care Linter Operator Name Role Phone PHYSICIAN, DEFAULT Admitting Unavailable PHYSICIAN, DEFAULT Attending Unavailable PEGGY GAYTAN Primary Care Unavailable Primo Downing Primary Care Provider [phone] Yue Pedroza Unavailable AICHHOLZ, EXCHANGE SPECIALIST CECY Primary Care Unavailable AICHHOLZ, EXCHANGE SPECIALIST CECY Admitting Unavailable AICHHOLZ, EXCHANGE SPECIALIST CECY Attending Unavailable AICHHOLZ, EXCHANGE SPECIALIST CECY Consulting Unavailable AICHHOLZ, EXCHANGE SPECIALIST CECY Primary Care Unavailable AICHHOLZ, EXCHANGE SPECIALIST CECY Admitting Unavailable AICHHOLZ, EXCHANGE SPECIALIST CECY Attending Unavailable AICHHOLZ, EXCHANGE SPECIALIST CECY Consulting Unavailable AICHHOLZ, EXCHANGE SPECIALIST CECY Admitting Unavailable AICHHOLZ, EXCHANGE SPECIALIST CECY Attending Unavailable AICHHOLZ, EXCHANGE SPECIALIST CECY Consulting Unavailable AICHHOLZ, EXCHANGE SPECIALIST CECY Primary Care Unavailable AICHHOLZ, EXCHANGE SPECIALIST CECY Primary Care Unavailable VISHAL, DR THANG Nichols Attending Unavailabl eleno RODGERS, DR THANG Nichols Consulting Unavailabl eleno RODGERS, DR THANG Nichols Admitting Unavailabl e JAKOB MCGHEE Consulting Unavailable Lexa Hickman MD Primary Care Provider Aichholz TELEGRAPHIC TYPEWRITER INSTALLER, Cecy Unavailable Unavailable Primary Care Provider Unavailabl e Aichholz, Cecy J Primary Care Provider MD Gale Gonzales Emergency Provider DO Bola Garcia Admit Provider DO Danial Horan Other Provider MD Simon Wolfe Attending Provider [phone] Krise, DO Emily M Emergency Provider MD Edgar Gomez Admit Provider MD Edgar Gomez Attending Provider DO Bola Garcia Attending Provider DO Altagracia Street Other Provider Altagracia Street Consulting Unavailable Edgar Gomez Admitting Unavailable Cecy Hernandez Primary Care Unavailable Bola Garcia Attending Unavailabl Danial Castellon Consulting Unavailable Cecy Hernandez Primary Care Unavailable Simon Wolfe Attending Unavailab le Bola Garcia Admitting Unavailmilvia Hernandez TELEGRAPHIC TYPEWRITER INSTALLER, Cecy Unavailable Lexa Hickman MD Primary Care Provider [phone] David TELEGRAPHIC TYPEWRITER INSTALLER, Cecy Unavailable Unavailable Primary Care Provider Unavailmilvia Hernandez CNP, Cecy Primary Care Provider DAVID CECY Primary Care Unavailable HECTOR NAPOLES Attending Unavailable Unallocated , Serena Provider Primary Care Provi karla Cecy Hernandez CNP Primary Care Provider DAREK VALDOVINOS Attending Unavailable ERROL SANFORD Referring Unavailable CECY HERNANDEZ Primary Care Unavailable LELAND DANG PROTESTANT Attending Unavailable LELAND DANG PROTESTANT Admitting Unavailable CECY HERNANDEZ Primary Care Unavailable Lexa Hickman MD Primary Care Provider David JEWEL STRIPPER-Cecy LOUIS Primary Care Provider JOHAN COTAADER N Attending Unavailable COTA, LULA N Referring Unavailable COTA, LULA N Referring Unavailable COTA, LULA N Attending Unavailable COTA, LULA N Referring Unavailable HOA, SABEENA PARKER Admitting Unavailable HOA SABEENA PARKER Attending Unavailable VICTORIA DOMINGUEZ Referring Unavailable AICHHOLZ, CECY J Primary Care Unavailable ASHLEY BROUSSARD Consulting Unavailab le AICHHOLZ, CECY J Referring Unavailable AICHHOLZ, CECY J Primary Care Unavailable LACI, LEANAAMMAD MAHMOUD Referring Unavail able AICHHOLZ, CECY J Primary Care Unavailable AICHHOLZ, CECY J Referring Unavailable AICHHOLZ, CECY J Primary Care Unavailable JOHAN COTAADER N Attending Unavailable AICHHOLZ, CECY J Primary Care Unavailable AICHHOLZ, CECY Attending Unavailable AICHHOLZ, CECY Attending Unavailable VICKY SCRUGGS Attending Unavailable TANA MARTINO Attending Unavailable AICHHOLZ, CECY Attending Unavailable JULIET HWANG Attending Unavailable MARYJANE LIANG Attending Unavailable AICHHOLZ, CECY Attending Unavailable MARYJANE LIANG Attending Unavailable AICHHOLZ, CECY Attending Unavailable AICHHOLZ, CECY Attending Unavailable CLARISSE BRAVO Consulting Unavailable AICHHOLZ, CECY J Primary Care Unavailable CISCO JUAN Attending Unavailable LACI, LEANAAMMAD MAHMOUD Referring Unavail able AICHHOLZ, CECY J Primary Care Unavailable CISCO JUAN Attending Unavailable AICHHOLZ, CECY J Referring Unavailable AICHHOLZ, CECY J Primary Care Unavailable COTA, LULA N Referring Unavailable AICHHOLZ, CECY J Referring Unavailable AICHHOLZ, CECY J Primary Care Unavailable AICHHOLZ, CECY J Referring Unavailable AICHHOLZ, CECY J Primary Care Unavailable Allergies Allergy Classification Reported Allergen(s) Allergy Type Date of Onset Reaction(s) Facility (5 sources) Adhesive Tape; Translations: [ADHESIVE TAPE (ROSINS)] Allergy to substance 02-20-20 13 Rash [facility] (20 sources) Penicillins; Translations: [Penicillins] Drug Allergy 01-03-20 13 Unknown [facility] (1 source) Penicillins (Antibiotic) Drug allergy rash. 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 08-16-20 23 Dermatitis, Hives [facility] (20 sources) Oxytetracycline Drug Allergy 08-16-20 Unknown [facility] (20 sources) Penicillin G Drug Allergy 08-16-20 Unknown [facility] (20 sources) Other Allergy to substance 08-16-20 Unknown [facility] (20 sources) Wound Dressing Adhesive Propensity to adverse reactions to drug 08-16-20 [facility] (12 sources) Adhesive agent; Translations: [ADHESIVE] Propensity to adverse reactions to drug 02-20-20 [facility] (13 sources) almond allergenic extract; Translations: [almond] Drug Allergy 03-23-20 [facility] (13 sources) cashew nut allergenic extract; Translations: [cashew nut] Drug Allergy 03-23-20 [facility] (1 source) Adhesive Tape Drug allergy (disorder) 03-29-20 [facility] (20 sources) almond allergenic extract Drug Allergy 03-29-20 [facility] Medications Current Medications Medication Drug Class(es) Dates Sig (Normalized) Sig (Original) amitriptyline hydrochloride 10 mg oral tablet (20 sources) Tricyclic Antidepressant Start: 07-05-2023 End: 10-07-2024 take 1 tablet by mouth once daily amitriptyline (ELAVIL) 10 mg tablet Indications: Primary osteoarthritis of both hands TAKE 1 TABLET BY MOUTH DAILY at 8pm 30 tablet 5 06/12/2024 Active aspirin 81 mg chewable tablet (20 sources) Platelet Aggregation Inhibitor, Nonsteroidal Anti-inflammatory Drug Start: 02-13-2023 End: 10-07-2024 aspirin 81 mg chewable tablet Chew 1 tablet (81 mg total) and swallow in the morning. 02/13/2023 Active take 1 tablet by mouth in the mo rning aspirin 81 MG EC tablet Take 81 mg by mouth in the morning. 0 Active calcium carbonate 1250 mg / cholecalciferol 125 unt oral tablet (4 sources) Vitamin D take 1 tablet by mouth in the morning Calcium Carb-Cholecalciferol (Calcium 500+D) 500-10 MG-MCG tablet Take 1 tablet by mouth in the morning and 1 tablet before bedtime. Active cephalexin 500 mg oral capsule (3 sources) Cephalosporin Antibacterial Start: 2023 End: 2023 take 1 dose by mouth once 500 mg, Oral, ONCE, 1 dose, On Mon06/18/24 at 2215 Start: 06-18-2024 End: 06-25-2024 take 1 capsule by mouth twice daily cephALEXin 500 MG capsule Take 1 capsule by mouth 2 times daily for 7 days. 14 capsule 06/18/2024 06/25/2024 Active citalopram 40 mg oral tablet (20 sources) Serotonin Reuptake Inhibitor Start: 04-04-2024 End: 10-07-2024 take 1 tablet by mouth once daily citalopram (CeleXA) 40 MG tablet Indications: Depression, unspecified (CMS/HCC) Take 1 tablet (40 mg) by mouth Daily 30 tablet 5 05/29/2024 10/07/2024 Discontinued (Therapy completed) Start: 03-23-2024 End: 04-25-2014 take 40 mg by mouth once daily Citalopram Active 40 MG PO Daily March 23, 2024 12:00am Comment on above: Take 40 mg by mouth once daily. dapagliflozin 5 mg oral tablet (20 sources) Sodium-Glucose Cotransporter 2 Inhibitor Start: 12-15-19 End: 10-07-19 25 take 1 tablet by mouth in the morning dapagliflozin (Farxiga) 5 MG Indications: Type 2 diabetes mellitus without complication, without long-term current use of insulin (CMS/HCC) Take 1 tablet (5 mg) by mouth in the morning. 30 tablet 5 07/30/2024 10/07/2024 Discontinued (Therapy completed) docusate sodium 50 mg / sennosides, jail 8.6 mg oral tablet (11 sources) Start: 08-16-20 take 2 tablets by mouth every twelve hours senna-docusate (Senna S) 8.6-50 MG tablet Take 2 tablets by mouth every 12 (twelve) hours 08/16/2024 Active Start: 08-15-2024 take 2 tablets by mo uth in the morning sennosides-docusate sodium (SENOKOT-S) 8.6-50 mg Take 2 tablets by mouth in the morning and 2 tablets before bedtime. 08/15/2024 Active fluticasone propionate 0.05 mg/actuat metered dose nasal spray (20 sources) Corticosteroid Start: 04-04-2024 End: 07-27-2024 take 2 spray(s) nasal route once daily [...] MG PO .bid March 23, 2024 12:00am 150 ml glucose 50 mg/ml injection (2 sources) Start: 10-10-2024 take 25 mL intravenously every hour as needed 25 mL/hr, intravenous, Continuous PRN, When mainline IV needed., Starting on Mon10/10/24 at 0832, Match IVF to base solution of product being administered to ensure compatibility. Start: 09-19-2024 End: 09-19-2024 take 25 mL intravenously every hour as needed 25 mL/hr, intravenous, Continuous PRN, When mainline IV needed., Starting on Mon09/19/24 at 0849, Match IVF to base solution of product being administered to ensure compatibility. hydroCHLOROthiazide 25 mg oral tablet (8 sources) Thiazide Diuretic End: 10-07-2024 take 1 tablet by mouth in the morning hydroCHLOROthiazide (HYDRODiuril) 25 MG tablet Take 25 mg by mouth in the morning. 10/07/2024 Discontinued (Therapy completed) hydroCHLOROthiazide 25 mg / lisinopril 20 mg oral tablet (20 sources) Thiazide Diuretic, Angiotensin Converting Enzyme Inhibitor Start: 03-23-2024 End: 10-07-2024 take 1 tablet by mouth once daily lisinopril-hydroCHLORO thiazide 20-25 MG tablet Indications: Essential hypertension, benign (CMS/HCC) , Essential (primary) hypertension (CMS/HCC) Take 1 tablet by mouth Daily 30 tablet 5 04/04/2024 10/07/2024 Discontinued (Therapy completed) lisinopril-hydro CHLOROthiazide (PRINZIDE,ZESTORETIC) 20-25 mg per tablet lisinopril 20 mg-hydrochlorothiazide 25 mg tablet Active Lisinopril-hydro CHLOROthiazide 20-25 MG Oral for 30 Active lisinopril 20 mg oral tablet (8 sources) Angiotensin Converting Enzyme Inhibitor End: 10-07-2024 take 1 tablet by mouth in the morning lisinopril 20 MG tablet Take 20 mg by mouth in the morning. 10/07/2024 Discontinued (Therapy completed) loratadine 10 mg oral tablet (20 sources) Start: 03-23-2024 End: 06-27-2024 take 1 tablet by mouth in the morning loratadine (CLARITIN) 10 mg tablet Take 1 tablet (10 mg total) by mouth in the morning. 08/15/2024 Active take 1 capsule by mouth once [...] tablet Take 15 mg by mouth Daily 05/09/2024 Active take 1 tablet by thang th once daily Meloxicam 15 MG Tab Dispersible Take 1 tablet by mouth daily. Active Mobic Active metFORMIN hydrochloride 1000 mg oral tablet (20 sources) Biguanide Start: 03-23-2024 End: 05-04-2024 take 1 tablet by mouth in the morning, then take 1 tablet by mouth at mealtime metFORMIN (GLUCOPHAGE) 1000 mg tablet Take 1 tablet (1,000 mg total) by mouth in the morning and 1 tablet (1,000 mg total) in the evening. Take with meals. 08/15/2024 Active take 1 tablet by thang th [...] 1 tablet by thang th once daily. omeprazole 20 mg delayed release oral capsule (4 sources) Proton Pump Inhibitor Start: 10-02-2024 take 1 capsule by mouth once daily omeprazole (PriLOSEC) [address] capsule Take 20 mg by mouth Daily 10/02/2024 Active pioglitazone 30 mg oral tablet (20 sources) Peroxisome Proliferator Receptor alpha Agonist, Peroxisome Proliferator Receptor gamma Agonist, Thiazolidinedione Start: 04-04-2024 End: 10-07-2024 take 1 tablet by mouth in the morning pioglitazone (Actos) 30 MG tablet Indications: Type 2 diabetes mellitus without complications (CMS/HCC) Take 1 tablet (30 mg) by mouth in the morning. 30 tablet 5 04/04/2024 10/07/2024 Discontinued (Therapy completed) Start: 02-13-2023 End: 11-11-2023 take 30 mg by mouth once daily Pioglitazone Active 30 MG PO Daily March 23, 2024 12:00am Actos Active polyethylene glycol 3350 38022 mg powder for oral solution (1 source) Osmotic Laxative Start: 12-15-2022 polyethylene glycol, PEG, 3350 (Glycolax) 17 GM/SCOOP powder Take 17 g by mouth in the morning. 0 12/15/2022 Active predniSONE 5 mg oral tablet (6 sources) Start: 10-07-2024 End: 01-05-2025 take 2 tablets by mouth in the morning predniSONE (DELTASONE) 5 mg tablet Take 12 tablets (60 mg total) by mouth in the morning for 90 days. 360 tablet 2 10/07/2024 01/05/2025 Active Start: 08-21-2024 End: 08-22-2024 take 1 tablet by mouth in the morning predniSONE (DELTASONE) 20 mg tablet Take 1 tablet (20 mg total) by mouth in the morning. 08/21/2024 08/22/2024 Active Start: 03-23-2024 take 3 tablets by mo uth once daily, then take 2 tablets by mouth once daily, then take 1 tablet by mouth once daily Prednisone Active 30 MG PO Daily March 23, 2024 12:00am orally daily; TAKE 3 TABLETS BY MOUTH DAILY FOR 3 DAYS, then TAKE 2 TABLETS BY MOUTH DAILY FOR 3 DAYS, then TAKE 1 TABLET BY MOUTH DAILY FOR 3 DAYS pregabalin 75 mg oral capsul e (10 sources) Start: 06-12-2024 End: 10-07-2024 pregabalin (Lyrica) 75 MG ca psule Take 75 mg by mouth in the morning and 75 mg at noon and 75 mg in the evening. 06/12/2024 10/07/2024 Discontinued (Therapy completed) End: 07-10-2024 take 1 capsule by mouth once daily at bedtime pregabalin (LYRICA) 75 mg capsule Take 75 mg by mouth daily at bedtime. 07/10/2024 Discontinued (Course of therapy completed) rOPINIRole 0.25 mg oral tablet (10 sources) Nonergot Dopamine Agonist Start: 06-12-2024 End: 10-07-2024 rOPINIRole (Requip) 0.25 MG tablet Take 0.25 mg by mouth in the morning and 0.25 mg at noon and 0.25 mg in the evening. 06/12/2024 10/07/2024 Discontinued (Therapy completed) simvastatin 20 mg oral tablet (20 sources) HMG-CoA Reductase Inhibitor Start: 02-13-2023 End: 10-07-2024 simvastatin (Zocor) 20 MG tablet Indications: Type 2 diabetes mellitus without complication, without long-term current use of insulin (CMS/HCC) , Type 2 diabetes mellitus without complications (CMS/HCC) Take 1 tablet (20 mg) by mouth at bedtime 30 tablet 5 05/29/2024 10/07/2024 Discontinued (Therapy completed) sulfamethoxazole 800 mg / trimethoprim 160 mg oral tablet (6 sources) Dihydrofolate Reductase Inhibitor Antibacterial, Sulfonamide Antimicrobial Start: 08-23-2024 take 1 tablet by mouth once sulfamethoxazole-t rimethoprim (BACTRIM DS) 800-160 mg per tablet Take 1 tablet by mouth. 08/23/2024 Active tiZANidine 4 mg oral tablet (20 sources) Central alpha-2 Adrenergic Agonist Start: 02-13-2023 End: 06-12-2024 tiZANidine (Zanaflex) 4 MG tablet Indications: Other chronic pain Take 1 tablet (4 mg) by mouth as needed at bedtime for muscle spasms 30 tablet 5 04/04/2024 Active take 2 tablets by [facility] three times daily Tizanidine 2 MG tablet Take 2 tablets by mouth 3 times daily. Active Completed/Discontinued Medications Medication Drug Class(es) Dates Sig (Normalized) Sig (Original) acetaminophen 325 mg oral tablet (2 sources) Start: 10-10-2024 End: 10-10-2024 take 650 mg by mouth once 650 mg, oral, Once, On [facility] 10/10/24 at 0845, For 1 dose Start: 09-19-2024 End: 09-19-2024 take 650 mg by mouth once 650 mg, oral, Once, On Natan at 0900, For 1 dose bacitracin 0.5 unt/mg topical ointment (1 source) Start: 06-18-2024 End: 06-18-2024 1 Application, Topical, ONCE, 1 dose, On Mon06/18/24 at 2215, Apply to right great toe canagliflozin (1 source) Sodium-Glucose Cotransporter 2 Inhibitor Invokana Not-Taking CPAP (1 source) Start: 05-20-2013 End: 06-18-2014 CPAP 7 CM H2O acclimation pressure WITH A 20 MINUTE RAMP, mask, CHIN STRAP, HUMIDITY. LIFETIME SUPPLIES. 1 Units 0 05/20/2013 06/18/2014 Discontinued Comment on above: 7 CM H2O acclimation pressure WITH A 20 MINUTE RAMP, mask, CHIN STRAP, HUMIDITY. LIFETIME SUPPLIES. dexamethasone 4 mg oral tablet (5 sources) Corticosteroid Start: 08-23-2024 End: 10-07-2024 take 1 tablet by mouth in the morning dexAMETHasone (DECADRON) 4 mg tablet Take 1 tablet (4 mg total) by mouth in the morning. 08/23/2024 10/07/2024 Discontinued (Alternate therapy) diclofenac sodium 75 mg / miSOPROStol 0.2 mg delayed release oral tablet (1 source) Nonsteroidal Anti-inflammatory Drug, Prostaglandin E1 Analog End: 04-25-2014 take 1 tablet by mouth twice daily diclofenac-misopro stol (ARTHROTEC 75) 75-200 mg-mcg per tablet Take 1 tablet by mouth twice daily. 0 04/25/2014 Discontinued (Course of therapy completed) Comment on above: Take 1 tablet by thang th twice daily. diphenhydrAMINE hydrochloride 25 mg oral capsule (2 sources) Histamine-1 Receptor Antagonist Start: 10-10-2024 End: 10-10-2024 take 25 mg by mouth once 25 mg, oral, Once, On Natan 10/10/24 at 0845, For 1 dose, Look-alike/sound-a like medication - verify indication for use. Start: 09-19-2024 End: 09-19-2024 take 25 mg by mouth once 25 mg, oral, Once, On Natan at 0900, For 1 dose, Look-alike/sound-alike medication - verify indication for use. 0.98 ml etanercept 50 mg/ml auto-injector (1 source) Tumor Necrosis Factor Darline Start: 06-12-2013 End: 11-08-2013 Etanercept (ENBREL SURECLICK) 50 mg/mL (0.98 mL) PnIj Indications: Rheumatoid arthritis(714.0) One injection weekly 4 Pen 4 06/12/2013 11/08/2013 Discontinued Comment on above: One injection weekly folic acid 1 mg oral tablet (2 sources) Start: 06-12-2013 End: 04-25-2014 take 1 tablet by mouth once daily folic acid 1 mg tablet Indications: Rheumatoid arthritis(714.0) Take 1 tablet by mouth once daily. 90 tablet 4 06/12/2013 04/25/2014 Discontinued Comment on above: Take 1 tablet by thang once daily. hydroxychloroquine sulfate 200 mg oral tablet (1 source) Antimalarial, Antirheumatic Agent Start: 06-12-2013 End: 04-25-2014 take 1 tablet by mouth twice daily hydroxychloroquine (PLAQUENIL) 200 mg tablet Indications: Rheumatoid arthritis(714.0) Take 1 tablet by mouth twice daily. 60 tablet 4 06/12/2013 04/25/2014 Discontinued Comment on above: Take 1 tablet by [facility] twice daily. 300 ml immunoglobulin g, human 100 mg/ml injection (2 sources) Human Immunoglobulin G Start: 10-10-2024 End: 10-10-2024 100 g, intravenous, Once, On Natan 10/10/24 at 0915, For 1 dose, Give specified dose daily for 1 days and repeat every 21 days Infuse per hospital policy. Vent tubing as needed. Using 40% Adjusted BW for dose = 100gm Infuse per Lexicomp administration instructions. See dispense label for titration instructions., Please specify indication category: Sub-acute Indications, Subacute Indication: Chronic Inflammatory Demyelinating Polyneuropathy - CIPD Start: 09-19-2024 End: 09-19-2024 100 g, intravenous, Once, On Natan 09/19/24 at 0930, For 1 dose, Give specified dose daily for 1 days and repeat every 21 days Infuse per hospital policy. Vent tubing as needed. Using adjusted weight factor of 40% (106.1kg) Dose rounded to nearest vial size within 10% Infuse per Lexicomp administration instructions. See dispense label for titration instructions., Please specify indication category: Sub-acute Indications, Subacute Indication: Chronic Inflammatory Demyelinating Polyneuropathy - CIPD methotrexate 2.5 mg oral tablet (1 source) Folate Analog Metabolic Inhibitor Start: 06-12-2013 End: 01-21-2014 methotrexate 2.5 mg tablet Indications: Rheumatoid arthritis(714.0) [...] then take 8 tab once a week methylPREDNISolone 125 mg injection (2 sources) Corticosteroid Start: 10-10-2024 End: 10-10-2024 100 mg, intravenous, Once, On Natan 10/10/24 at 0845, For 1 dose, May alter blood glucose or insulin requirements. Look-alike/sound-alike medication - verify indication for use. Start: 09-19-2024 End: 09-19-2024 100 mg, intravenous, Once, O n Natan 09/19/24 at 0900, For 1 dose, May alter blood glucose or insulin requirements. Look-alike/sound-alike medication - verify indication for use. OTC NUTRITIONAL SUPPLEMENT (1 source) Start: 06-12-2013 End: 04-25-2014 take 500 mg by mouth once daily OTC NUTRITIONAL SUPPLEMENT Indications: Rheumatoid arthritis(714.0) Take 500 mg by mouth once daily. Vit D 0 06/12/2013 04/25/2014 Discontinued (Course of therapy completed) Comment on above: Take 500 mg by mouth once daily. Vit D traMADol hydrochloride 50 mg oral tablet (1 source) Opioid Agonist Start: 07-15-2013 take 1 tablet by mouth every twelve hours as needed traMADol 50 mg tablet Take 1 tablet by mouth twice daily as needed for Pain. 60 tablet 3 07/15/2013 Active Comment on above: Take 1 tablet by thang th twice daily as needed for Pain. traZODone hydrochloride 100 mg oral tablet (8 sources) Serotonin Reuptake Inhibitor Start: 04-04-2024 End: 05-21-2024 traZODone (Desyrel) 100 MG tablet Indications: Primary insomnia Take 1 tablet (100 mg) by mouth as needed at bedtime for sleep 30 tablet 5 04/04/2024 05/21/2024 Discontinued (Therapy completed) Problems Active Problems Problem Classification Problem Date Documented Date Episodic/Chronic Administrative/social admission (1 source) Financial problem; Translations: [Problem related to housing and economic circumstances, unspecified] 07-11-2024 Episodic Anxiety disorders (4 sources) Anxiety disorder; Translations: [Anxiety disorder, unspecified] Onset: 08-13-2024 10-07-2024 Chronic Cardiac dysrhythmias (1 source) Cardiac arrhythmia, unspecified; Translations: [Cardiac arrhythmia, unspecified] Onset: 08-09-2024 Chronic Diabetes mellitus with complications (11 sources) Diabetic hand syndrome; 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] Onset: 04-17-2024 06-12-2024 Chronic Diabetes mellitus without complication (20 sources) Type 2 diabetes mellitus without complications; Translations: [Type 2 diabetes mellitus without complication] Onset: 01-11-2022 Resolved: 10-07-2024 Chronic Diseases of white blood cells (20 sources) Leukocytosis; Translations: [Elevated white blood cell count, unspecified] Onset: 04-04-2024 03-30-2024 Chronic E Codes: Fall (12 sources) Fall on same level from slipping, tripping and stumbling with subsequent striking against other sharp object, initial encounter; Translations: [Fall] Onset: 04-25-2022 03-30-2024 Episodic Essential hypertension (20 sources) Essential (primary) hypertension; Translations: [Benign essential hypertension] Onset: 04-25-2022 Resolved: 10-07-2024 08-16-2023 Chronic Mood disorders (20 sources) Depressive disorder; Translations: [Depression] Onset: 08-16-2023 08-16-2023 Chronic Nutritional deficiencies (11 sources) Undernutrition; Translations: [Mild protein-calorie malnutrition] Onset: 06-25-2024 06-25-2024 Chronic Osteoarthritis (20 sources) Osteoarthritis of joint of bilateral hands; Translations: [Primary osteoarthritis, right hand] Onset: 06-12-2024 06-12-2024 Chronic Other aftercare (1 source) long-term (current) use of oral hypoglycemic drugs; Translations: [OPHTHALMIC SURGEON USE ORAL HYPOGLYCEMIC DX] Onset: 04-25-2022 Episodic Other aftercare (1 source) long-term (current) use of aspirin; Translations: [ALF CURRENT USE OF ASPIRIN] Onset: 04-25-2022 Episodic Other aftercare (1 source) Other half-way (current) drug therapy; Translations: [OTH ALF CURRENT DRUG THERAPY] Onset: 04-25-2022 Episodic Other connective tissue disease (2 sources) Paraparesis; Translations: [Other symptoms and signs involving the musculoskeletal system] 03-30-2024 Episodic Other connective tissue disease (2 sources) Bilateral weakness of upper limbs; Translations: [Other symptoms and signs involving the musculoskeletal system] 03-30-2024 Episodic Other connective tissue disease (1 source) Disorder of muscle 06-12-2024 Episodic Other connective tissue disease (4 sources) Muscle weakness; Translations: [Muscle weakness (generalized)] Onset: 08-16-2024 10-07-2024 Episodic Other injuries and conditions due to [...] foot, initial encounter] Onset: 06-18-2024 Episodic Other injuries and conditions due to external causes (1 source) Starvation, initial encounter; Translations: [Starvation, initial encounter] Onset: 10-07-2024 Episodic Other nervous system disorders (1 source) Chronic pain; Translations: [Other chronic pain] 05-29-2024 Chronic Other nervous system disorders (17 sources) Disorder of muscle; Translations: [Myopathy, unspecified] Onset: 06-12-2024 06-12-2024 Chronic Other nervous system disorders (1 source) Brachial plexus disorder; Translations: [Brachial plexus disorders] 07-10-2024 Chronic Other nervous system disorders (1 source) Brachial plexus disorders; Translations: [Brachial plexopathy] Onset: 07-10-2024 Chronic Other nervous system disorders (19 sources) Chronic inflammatory demyelinating polyradiculoneuropath y; 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] Onset: 08-09-2024 08-16-2024 Chronic Other nervous system disorders (3 sources) Chronic inflammatory demyelinating polyneuritis; 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] Onset: 08-09-2024 Chronic Other nervous system disorders (1 source) Myopathy, unspecified; Translations: [Myopathy, unspecified] Onset: 06-12-2024 Chronic Other nervous system disorders (4 sources) Cognitive deficit in communication skills; Translations: [Cognitive communication deficit] Onset: 08-19-2024 10-07-2024 Chronic Other nervous system disorders (9 sources) Muscle fasciculation; Translations: [Fasciculation] Onset: 07-22-2024 03-30-2024 Episodic Other nervous system disorders (2 sources) Fasciculation; Translations: [Abnormal involuntary movements] Onset: 03-30-2024 03-30-2024 Episodic Other nervous system disorders (6 sources) Paresthesia; Translations: [Paresthesia of skin] Onset: 06-22-2024 06-22-2024 Episodic Other nervous system disorders (1 source) Paresthesia of skin; Translations: [Paresthesia of skin] Onset: 06-22-2024 Episodic Other nutritional; endocrine; and metabolic disorders (1 source) Severe obesity; Translations: [Morbid (severe) obesity due to excess calories] Onset: 08-16-2023 08-16-2023 Chronic Other nutritional; endocrine; and metabolic disorders (20 sources) Obesity caused by energy imbalance; Translations: [Morbid (severe) obesity due to excess calories] Onset: 08-16-2023 04-04-2024 Chronic Other nutritional; endocrine; and metabolic disorders (13 sources) Obese class II; Translations: [Obesity, Class II, BMI 35-39.9] Onset: 07-10-2024 07-10-2024 Chronic Other nutritional; endocrine; and metabolic disorders (6 sources) Body mass index 30+ - obesity; Translations: [Body mass index (BMI) 39.0-39.9, adult] Onset: 10-07-2024 10-07-2024 Chronic Other nutritional; endocrine; and metabolic disorders (2 sources) Hungry; Translations: [Starvation, initial encounter] 10-07-2024 Episodic Other upper respiratory disease (1 source) Seasonal allergic rhinitis; Translations: [Other seasonal allergic rhinitis] 06-27-2024 Chronic Other upper respiratory disease (4 sources) Chronic rhinitis; Translations: [Chronic rhinitis] Onset: 08-15-2024 10-07-2024 Chronic Residual codes; unclassified (20 sources) Obstructive sleep apnea syndrome; Translations: [Obstructive sleep apnea (adult) (pediatric)] Onset: 11-16-2023 11-16-2023 Chronic Residual codes; unclassified (1 source) Pain, unspecified; Translations: [Pain, unspecified] Onset: 08-08-2024 Episodic Rheumatoid arthritis and related disease (20 sources) Rheumatoid arthritis, unspecified; Translations: [Flare of rheumatoid arthritis] Onset: 06-12-2013 06-12-2013 Chronic Spondylosis; intervertebral disc disorders; other back problems (20 sources) Degeneration of cervical intervertebral disc; Translations: [Other cervical disc degeneration, unspecified cervical region] Onset: 02-07-2024 02-07-2024 Chronic Spondylosis; intervertebral disc disorders; other back problems (4 sources) Spinal stenosis in cervical region; Translations: [Spinal stenosis, cervical region] Onset: 08-13-2024 10-07-2024 Episodic Superficial injury; contusion (1 source) Contusion of right elbow, initial encounter; Translations: [CONTUSION RIGHT ELBOW INITIAL ENC] Onset: 04-25-2022 Episodic Systemic lupus erythematosus and connective tissue disorders (20 sources) Autoimmune disease; Translations: [Systemic involvement of connective tissue, unspecified] Onset: 06-12-2013 08-16-2023 Chronic Unclassified (1 source) Obesity, Class II, BMI 35-39.9; Translations: [Obesity, Class II, BMI 35-39.9] Onset: 07-10-2024 Unclassified (1 source) Progressive weakness Onset: 08-09-2024 Unclassified (1 source) New Patient Onset: 08-22-2024 Unclassified (1 source) Increased weakness - [place] Onset: 08-08-2024 Unclassified (1 source) Outpatient Infusion Onset: 09-19-2024 Past or Other Problems Problem Classification Problem Date Documented Da te Episodic/Chronic Diseases of mouth; excluding dental (20 sources) Xerostomia; Translations: [Disturbances of salivary secretion] Onset: 11-16-2023 11-16-2023 Episodic Genitourinary symptoms and ill-defined conditions (20 sources) Asymptomatic microscopic hematuria; Translations: [Asymptomatic microscopic hematuria] Onset: 02-19-2024 02-19-2024 Episodic Immunizations and screening for infectious disease (2 sources) Contact with and (suspected) exposure to other viral communicable diseases; Translations: [Other specified abnormal immunological findings in serum] Onset: 10-08-2021 Resolved: 10-08-2021 Episodic Malaise and fatigue (20 sources) Asthenia; Translations: [Weakness] Onset: 06-22-2024 06-22-2024 Episodic Mood disorders (8 sources) Mood disorders; Translations: [Depression, unspecified] Onset: 08-10-2024 Resolved: 10-07-2024 08-10-2024 Other connective tissue disease (20 sources) Muscle weakness of upper limb; Translations: [Other symptoms and signs involving the musculoskeletal system] Onset: 04-04-2024 03-23-2024 Episodic Other connective tissue disease (20 sources) Other symptoms and signs involving the musculoskeletal system; Translations: [Other musculoskeletal symptoms referable to limbs] Onset: 03-30-2024 03-25-2024 Episodic Other gastrointestinal disorders (20 sources) Constipation; Translations: [Constipation, unspecified] Onset: 08-16-2023 08-16-2023 Episodic Other nervous system disorders (2 sources) Sensory disorder; Translations: [Unspecified disturbances of skin sensation] 05-01-2024 Episodic Other non-traumatic joint disorders (20 sources) Joint pain; Translations: [Pain in unspecified joint] Onset: 02-19-2013 02-19-2013 Episodic Other non-traumatic joint disorders (1 source) Pain in unspecified joint; Translations: [Arthralgia, unspecified joint] Onset: 02-19-2013 Episodic Other nutritional; endocrine; and metabolic disorders (20 sources) Body mass index 40+ - severely obese; Translations: [Body mass index (BMI) 40.0-44.9, adult] Onset: 04-04-2024 Resolved: 07-22-2024 04-04-2024 Chronic Other screening for suspected conditions (not mental disorders or infectious disease) (20 sources) Other specified abnormal findings of blood chemistry; Translations: [Patient encounter status] Onset: 05-18-2021 02-21-2024 Episodic Other upper respiratory infections (1 source) Acute sinusitis, unspecified Onset: 10-08-2021 Resolved: 10-08-2021 Episodic Residual codes; unclassified (20 sources) Insomnia; Translations: [Insomnia, unspecified] Onset: 08-16-2023 08-16-2023 Episodic Unclassified (1 source) Osteoarthritis of joint of bilateral hands 06-12-2024 Unclassified (1 source) Onset: 06-22-2024 06-22-2024 Results Test Name Value Interpretation Reference Range Facility HbA1c (Bld) [Mass fraction]o n 10-07-2024 Interpretation and review of laboratory results Abnormal [facility] - Hematology and Cell countson 10-07-2024 HbA1c (Bld) [Mass fraction] 6.60 % [facility] 36on 09-03-2024 36 Spoke with patient a nd scheduled for 11/19 at 1:30 pm [facility] 36on 09-02-2024 36 Tried to reach patie nt to schedule. No voicemail available, unable to leave message. Will try again . [facility] 36on 08-15-2024 36 Please call to ivonne allred a follow up visit with Dr. Blanchard and Dr Broussard in 2-3 months. 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 Please note patient's address are same in [facility] as [facility], but patient told me he has recently had housing insecurity and had to leave his prior dwelling just before recent admission. Mobile number of [phone] in is [facility] chart as it is here, no home number in [facility] chart. Note address is also the same, but last 4 digits of social differ. Thank you! Normal [facility] CBC AND AUTO DIFFon 08-15-20 24 ABSOLUTE BASOPHIL 0.0 X10E9/L Normal 0.0-0.2 [facility] Comment on above: Performed By: #### C POOL, 50289-7, [facility], 1987-12, 4485-04, 4497-2, ENAP #### [facility] ([id number]) [address], [address] [place] [address] ABSOLUTE NEUTROPHIL 8.9 X10E9/L High 1.5-6.6 [facility] Comment on above: Performed By: #### C POOL, 04413-2, [facility], 1987-12, 4485-04, 449-2, ENAP #### [facility] ([id number]) [address], [address] [place] [address] Basophils/100 WBC (Bld) 0.2 % Normal [facility] Comment on above: Performed By: #### C POOL, 18333-8, [facility], 1987-12, 4485-04, 2, ENAP #### [facility] ([id number]) [address], [address] [place] [address] Eosinophils (Bld) [#/Vol] 0.1 10*3/uL Normal 0.0-0.4 [facility] Comment on above: Performed By: #### C POOL, 94545-3, CMP, 1987-12, 4485-04, 4498-2, ENAP #### [facility] ([id number]) [address], [address] [place] [address] Eosinophils/100 WBC (Bld) 0.5 % Normal [facility] Comment on above: Performed By: #### C POOL, 15510-2, CMP, 1987-12, 4485-04, 449-2, ENAP #### [facility] ([id number]) [address], [address] [place] [address] Erythrocyte distribution width (RBC) [Ratio] 12.9 % Normal 11.5-15.0 [facility] Comment on above: Performed By: #### C POOL, 12172-4, [facility], 1987-12, 4485-04, 4497-2, ENAP #### [facility] ([id number]) [address], [address] [place] [address] Hematocrit (Bld) [Volume fraction] 44.6 % Normal 39-49 [facility] Comment on above: Performed By: #### C POOL, 95035-1, [facility], 1987-12, 4485-04, 449-2, ENAP #### [facility] ([id number]) [address], [address] [place] [address] Hemoglobin (Bld) [Mass/Vol] 15.1 g/dL Normal 13.0-17.0 [facility] Comment on above: Performed By: #### C POOL, 40115-2, CMP, 1987-12, 4485-04, 449-2, ENAP #### [facility] ([id number]) [address], [address] [place] [address] Lymphocytes (Bld) [#/Vol] 5.7 10*3/uL High 1.0-3.5 [facility] Comment on above: Performed By: #### C BCA, 14646-6, CMP, 1987-12, 4485-04, 4497-2, ENAP #### [facility] ([id number]) [address], [address] [place] [address] Lymphocytes/100 WBC (Bld) 36.2 % Normal [facility] Comment on above: Performed By: #### C POOL, 81168-1, CMP, 1987-12, 4485-04, 4497-2, ENAP #### [facility] ([id number]) [address], [address] [address] MCH (RBC) [Entitic mass] 30.0 pg Normal 27-34 [facility] Comment on above: Performed By: #### C POOL, 76976-7, CMP, 1987-12, 4485-04, 4497-2, ENAP #### [facility] ([id number]) [address], [address] [place] [address] MCHC (RBC) [Mass/Vol] 34.0 g/dL Normal 32-[address] [facility] Comment on above: Performed By: #### C POOL, 84983-4, CMP, 1987-12, 4485-04, 4497-2, ENAP #### [facility] ([id number]) [address], [address] [address] MCV (RBC) [Entitic vol] 88 fL Normal 80-100 [facility] Comment on above: Performed By: #### C BCA, 96608-6, CMP, 1987-12, 4485-04, 4497-2, ENAP #### [facility] ([id number]) [address] [address] Monocytes (Bld) [#/Vol] 1.1 10*3/uL High 0-0.9 [facility] Comment on above: Performed By: #### C BCA, 97197-2, CMP, 1987-12, 9, 4498-2, ENAP #### [facility] ([id number]) [address], [address] [place] [address] Monocytes/100 WBC (Bld) 6.7 % Normal [facility] Comment on above: Performed By: #### C BCA, 16911-8, CMP, 1987-12, 4485-04, 4498-2, ENAP #### [facility] ([id number]) [address], [address] [place] [address] Neutrophils/100 WBC (Bld) 56.4 % Normal [facility] Comment on above: Performed By: #### C BCA, 56729-0, CMP, 1987-12, 4485-04, 4498-2, ENAP #### [facility] ([id number]) [address], [address] [place] [address] Platelet mean volume (Bld) [Entitic vol] 8.0 fL Normal 7-12 [facility] Comment on above: Performed By: #### C BCA, 91212-7, CMP, 1987-12, 4485-04, 4498-2, ENAP #### [facility] ([id number]) [address], [facility] [address] [place] [address] Platelets (Bld) [#/Vol] 270 10*3/uL Normal 150-450 [facility] Comment on above: Performed By: #### C BCA, 96558-4, CMP, 1987-12, 4485-04, 4498-2, ENAP #### [facility] ([id number]) [address], [facility] [address] [place] [address] RBC COUNT 5.05 X10E12/L Normal 4.10-5.70 [facility] Comment on above: Performed By: #### C BCA, 24024-5, CMP, 1987-12, 4485-04, 4498-2, ENAP #### [facility] ([id number]) [address], [address] [place] [address] WBC (Bld) [#/Vol] 15.7 10*3/uL High 4.0-11.0 [facility] Comment on above: Performed By: #### C BCA, 30601-9, CMP, 1987-12, 4484-9, 4498-2, ENAP #### [facility] ([id number]) [address], [address] [place] [address] COMPREHENSIVE METABOLIC PANE Rayshawn 08-15-2024 Albumin [Mass/Vol] 3.6 g/dL Normal 3.2-5.3 [facility] Comment on above: Performed By: #### C BCA, 98092-9, CMP, 1987-12, 9, 4498-2, ENAP #### [facility] ([id number]) [address], [address] [place] [address] ALP [Catalytic activity/Vol] 56 U/L Normal 39-130 [facility] Comment on above: Performed By: #### C BCA, 36071-8, CMP, 1987-12, 4485-04, 4498-2, ENAP #### [facility] ([id number]) [address], [address] [place] [address] ALT [Catalytic activity/Vol] 19 U/L Normal 0-40 [facility] Comment on above: Performed By: #### C BCA, 56896-8, CMP, 1987-12, 4485-04, 4498-2, ENAP #### [facility] ([id number]) [address], [address] [place] [address] Anion gap [Moles/Vol] 9 mmol/L Normal 5-[address] [facility] Comment on above: Performed By: #### C BCA, 31602-8, CMP, 1987-12, 4485-04, 4498-2, ENAP #### [facility] ([id number]) [address], [address] [place] [address] AST [Catalytic activity/Vol] 14 U/L Normal 0-41 [facility] Comment on above: Performed By: #### C BCA, 59624-7, CMP, 1987-12, 4484-9, 4498-2, ENAP #### [facility] ([id number]) [address], [address] [place] [address] Bilirubin [Mass/Vol] 0.8 mg/dL Normal 0.3-1.2 [facility] Comment on above: Performed By: #### C BCA, 83292-7, CMP, 1987-12, 4485-04, 4498-2, ENAP #### [facility] ([id number]) [address], [address] [place] [address] Calcium [Mass/Vol] 9.2 mg/dL Normal 8.5-10.5 [facility] Comment on above: Performed By: #### C BCA, 43778-3, CMP, 1987-12, 4485-04, 4498-2, ENAP #### [facility] ([id number]) [address], [address] [place] [address] Chloride [Moles/Vol] 100 mmol/L Normal 98-109 [facility] Comment on above: Performed By: #### C BCA, 43972-9, CMP, 1987-12, 4485-04, 4498-2, ENAP #### [facility] ([id number]) [address], [address] [place] [address] CO2 [Moles/Vol] 27 mmol/L Normal 22-32 [facility] Comment on above: Performed By: #### C BCA, 39863-8, CMP, 1987-12, 4485-04, 4498-2, ENAP #### [facility] ([id number]) [address], [address] [place] [address] Creatinine [Mass/Vol] 0.59 mg/dL Low 0.60-1.[address] [facility] Comment on above: Result Comment: METH OD TRACEABLE TO IDMS STANDARD Performed By: #### C BCA, 72453-7, CMP, 1987-12, 4485-04, 4498-2, ENAP #### [facility] ([id number]) [address], [address] [place] [address] eGFR (CKD-EPI) NON-RACE DEPENDENT >90 Normal >59 [facility] Comment on above: Result Comment: Reported eGFR is based on the CKD-EPI 2020 equation that does not use a race coefficient. Performed By: #### C BCA, 61645-9, CMP, 1987-12, 4485-04, 4498-2, ENAP #### [facility] ([id number]) [address], [address] [place] [address] Glucose [Mass/Vol] 111 mg/dL High 65-99 [facility] Comment on above: Performed By: #### C BCA, 25512-2, CMP, 1987-12, 4485-04, 449-2, ENAP #### [facility] ([id number]) [address], [facility] [address] [place] [address] Potassium [Moles/Vol] 3.8 mmol/L Normal 3.5-5.[address] [facility] Comment on above: Performed By: #### C BCA, 68092-5, CMP, 1987-12, 4485-04, 4498-2, ENAP #### [facility] ([id number]) [address], [address] [place] [address] Protein [Mass/Vol] 8.2 g/dL High 6.0-8.0 [facility] Comment on above: Performed By: #### C BCA, 91957-3, CMP, 1987-12, 4485-04, 449-2, ENAP #### [facility] ([id number]) [address], [address] [place] [address] Sodium [Moles/Vol] 136 mmol/L Normal 134-146 [facility] Comment on above: Performed By: #### C BCA, 95470-7, CMP, 1987-12, 5-9, 4498-2, ENAP #### [facility] ([id number]) [address], [address] [place] [address] Urea nitrogen [Mass/Vol] 16 mg/dL Normal 5-23 [facility] Comment on above: Performed By: #### C BCA, 31717-9, [facility], 1987-12, 4485-04, 4498-2, ENAP #### [facility] ([id number]) [address], [address] [address] Glucose Glucometer (BldC) [M ass/Vol]on 08-15-2024 Glucose [Mass/Vol] 293 mg/dL High 65-99 [facility] Glucose [Mass/Vol] 129 mg/dL High 65-99 [facility] Glucose [Mass/Vol] 72 mg/dL Normal 65-99 [facility] comment Bj (Repo rt)on 08-15-2024 SARS-CoV-2 (COVID-19) RNA BLAYNE+probe Ql (Unsp spec) [facility] Report to Follow. Normal [facility] Comment on above: Performed By: #### C BCA, 42968-8, [facility], 1987-12, 4485-04, 4498-2, ENAP #### [facility] ([id number]) [address] [address] SARS CoV2 by NAAT/Molecularo n 08-15-2024 SARS-CoV-2 (COVID-19) RNA BLAYNE+probe Ql (Resp) SARS CoV 2 Not detected (qualifier value) NOTE The Xpert Xpress SARS-CoV-2/Flu/RSV Plus test is a rapid, multiplexed real-time RT-PCR test intended for the simultaneous qualitative detection and differentiation of SARS-CoV-2, influenza A, influenza B and respiratory syncytial virus (RSV) viral RNA from individuals suspected of respiratory viral infection consistent with COVID-19 by their healthcare provider. This test can also be used for a single target SARS result if ordered by the provider. All information included in this EUA statement is also applicable to the single target result. This test has not been validated in asymptomatic patients. The Xpert Xpress SARS-CoV-2/Flu/RSV Plus test is intended for use by qualified and trained operators who are performing tests using either [employer] or [employer] systems and is limited to laboratories that meet the CLIA requirements to perform high and moderate complexity tests. The Xpert Xpress SARS-CoV-2/Flu/RSV Plus is only for use under the Food and Drug Administration's Emergency Use Authorization. Results are for the simultaneous detection and differentiation of SARS-CoV-2, influenza A, influenza B and RSV nucleic acids in clinical specimens. SARS-CoV-2, influenza A, influenza B and RSV RNA identified by this test are generally detectable in upper respiratory samples during the acute phase of infection. Positive results are indicative of the presence of the identified virus, but do not rule out bacterial infection or co-infection with other pathogens not detected by this test. Negative results do not preclude SARS-CoV-2, influenza A, influenza B and RSV infection and should not be used as the sole basis for treatment or other patient management decisions. Negative results must be combined with clinical observations, patient history and epidemiological information. An Invalid result may occur with specimen-associated inhibition unable to be resolved with specimen repeat. Clinical correlation with patient history and other diagnostic information is necessary to determine patient infection status. The agent detected may not be the definite cause of disease. Fact Sheet for Healthcare Providers: https://www.fda.gov/media/ 420722/download Fact Sheet for Patients: https://www.fda.gov/media/ 434299/download Normal [facility] Comment on above: Performed By: #### C BCA, 66250-7, CMP, 1987-, 4485-9, 4498-2, ENAP #### [facility] ([id number]) [address] [place] [address], [address] [place] [address] Telephoneon 08-15-2024 Telephone [phone] Eloy Umana ald 1975 M Date Provider Department Center 08/15/2024 Jared3-EMMIE CARLISLE [facility] No family history on file Normal [facility] CBC AND AUTO DIFFon 08-14-20 24 ABSOLUTE BASOPHIL 0.1 X10E9/L Normal 0.0-0.2 [facility] Comment on above: Performed By: #### C POOL, 35101-3, CMP, 1987-12, 4485-04, 4498-2, ENAP #### [facility] ([id number]) [address], [address] [place] [address] ABSOLUTE NEUTROPHIL 5.8 X10E9/L Normal 1.5-6.6 [facility] Comment on above: Performed By: #### Luke LANZA, 04960-8, CMP, 1987-12, 4485-04, 449-2, ENAP #### [facility] ([id number]) [address], [address] [place] [address] Basophils/100 WBC (Bld) 0.6 % Normal [facility] Comment on above: Performed By: #### C POOL, 67699-5, CMP, 1987-12, 4485-04, 4492, ENAP #### [facility] ([id number]) [address], [address] [place] [address] Eosinophils (Bld) [#/Vol] 0.1 10*3/uL Normal 0.0-0.4 [facility] Comment on above: Performed By: #### C POOL, 93289-4, CMP, 1987-12, 4485-04, 2, ENAP #### [facility] ([id number]) [address], [address] [place] [address] Eosinophils/100 WBC (Bld) 0.9 % Normal [facility] Comment on above: Performed By: #### Luke LANZA, 43991-3, CMP, 1987-12, 4485-04, 4498-2, ENAP #### [facility] ([id number]) [address], [facility] [address] [place] [address] Erythrocyte distribution width (RBC) [Ratio] 13.3 % Normal 11.5-15.0 [facility] Comment on above: Performed By: #### C BCA, 14012-5, [facility], 1987-12, 4485-04, 4498-2, ENAP #### [facility] ([id number]) [address] [address] Hematocrit (Bld) [Volume fraction] 43.2 % Normal 39-49 [facility] Comment on above: Performed By: #### C POOL, 04752-1, [facility], 1987-12, 4485-04, 449-2, ENAP #### [facility] ([id number]) [address], [address] [address] Hemoglobin (Bld) [Mass/Vol] 14.6 g/dL Normal 13.0-17.0 [facility] Comment on above: Performed By: #### C POOL, 31937-8, [facility], 1987-12, 4485-04, 449-2, ENAP #### [facility] ([id number]) [address], [address] [address] Lymphocytes (Bld) [#/Vol] 4.6 10*3/uL High 1.0-3.5 [facility] Comment on above: Performed By: #### C BCA, 59187-6, CMP, 1987-12, 4485-04, 449-2, ENAP #### [facility] ([id number]) [address] [address] Lymphocytes/100 WBC (Bld) 40.3 % Normal [facility] Comment on above: Performed By: #### C POOL, 41210-9, CMP, 1987-12, 4485-04, 4497-2, ENAP #### [facility] ([id number]) [address], [address] [place] [address] MCH (RBC) [Entitic mass] 29.9 pg Normal 27-34 [facility] Comment on above: Performed By: #### C BCA, 50840-7, CMP, 1987-12, 4485-04, 4497-2, ENAP #### [facility] ([id number]) [address], [address] [place] [address] MCHC (RBC) [Mass/Vol] 33.7 g/dL Normal 32-[address] [facility] Comment on above: Performed By: #### C POOL, 36615-5, CMP, 1987-12, 4485-04, 4497-2, ENAP #### [facility] ([id number]) [address], [address] [place] [address] MCV (RBC) [Entitic vol] 89 fL Normal 80-100 [facility] Comment on above: Performed By: #### C BCA, 24963-6, CMP, 1987-12, 4485-04, 4497-2, ENAP #### [facility] ([id number]) [address], [address] [place] [address] Monocytes (Bld) [#/Vol] 0.9 10*3/uL Normal 0-0.9 [facility] Comment on above: Performed By: #### C BCA, 22079-2, CMP, 1987-12, 4485-04, 4497-2, ENAP #### [facility] ([id number]) [address], [address] [place] [address] Monocytes/100 WBC (Bld) 7.8 % Normal [facility] Comment on above: Performed By: #### C BCA, 64850-8, CMP, 1987-12, 4485-04, 4498-2, ENAP #### [facility] ([id number]) [address], [address] [place] [address] Neutrophils/100 WBC (Bld) 50.4 % Normal [facility] Comment on above: Performed By: #### C BCA, 52716-2, CMP, 1987-12, 4485-04, 4498-2, ENAP #### [facility] ([id number]) [address], [address] [place] [address] Platelet mean volume (Bld) [Entitic vol] 7.9 fL Normal 7-12 [facility] Comment on above: Performed By: #### C POOL, 16744-4, CMP, 1987-12, 4485-04, 4498-2, ENAP #### [facility] ([id number]) [address], [address] [place] [address] Platelets (Bld) [#/Vol] 259 10*3/uL Normal 150-450 [facility] Comment on above: Performed By: #### C BCA, 20859-1, CMP, 1987-12, 4485-04, 4498-2, ENAP #### [facility] ([id number]) [address], [address] [place] [address] RBC COUNT 4.86 X10E12/L Normal 4.10-5.70 [facility] Comment on above: Performed By: #### C BCA, 17386-8, CMP, 1987-12, 4485-04, 4498-2, ENAP #### [facility] ([id number]) [address], [address] [place] [address] WBC (Bld) [#/Vol] 11.5 10*3/uL High 4.0-11.0 [facility] Comment on above: Performed By: #### Luke BCA, 87917-6, CMP, 1987-12, 4485-04, 4498-2, ENAP #### [facility] ([id number]) [address], [address] [place] [address] COMPREHENSIVE METABOLIC PANE Rayshawn 08-14-2024 Albumin [Mass/Vol] 3.6 g/dL Normal 3.2-5.3 [facility] Comment on above: Performed By: #### C BCA, 13176-4, CMP, 1987-12, 4485-04, 4498-2, ENAP #### [facility] ([id number]) [address], [address] [place] [address] ALP [Catalytic activity/Vol] 52 U/L Normal 39-130 [facility] Comment on above: Performed By: #### C BCA, 73975-8, CMP, 1987-12, 4485-04, 4498-2, ENAP #### [facility] ([id number]) [address], [address] [place] [address] ALT [Catalytic activity/Vol] 20 U/L Normal 0-40 [facility] Comment on above: Performed By: #### C BCA, 10970-6, CMP, 1987-12, 4485-04, 4498-2, ENAP #### [facility] ([id number]) [address], [address] [place] [address] Anion gap [Moles/Vol] 8 mmol/L Normal 5-[address] [facility] Comment on above: Performed By: #### C BCA, 06428-2, CMP, 1987-12, 4485-04, 4498-2, ENAP #### [facility] ([id number]) [address], [address] [place] [address] AST [Catalytic activity/Vol] 16 U/L Normal 0-41 [facility] Comment on above: Performed By: #### C BCA, 92090-5, CMP, 1987-12, 4485-04, 4498-2, ENAP #### [facility] ([id number]) [address], [address] [place] [address] Bilirubin [Mass/Vol] 0.7 mg/dL Normal 0.3-1.2 [facility] Comment on above: Performed By: #### C BCA, 04760-4, CMP, 1987-12, 4485-04, 4498-2, ENAP #### [facility] ([id number]) [address], [address] [place] [address] Calcium [Mass/Vol] 9.1 mg/dL Normal 8.5-10.5 [facility] Comment on above: Performed By: #### C BCA, 04334-1, CMP, 1987-12, 4485-04, 449-2, ENAP #### [facility] ([id number]) [address], [address] [place] [address] Chloride [Moles/Vol] 101 mmol/L Normal 98-109 [facility] Comment on above: Performed By: #### C BCA, 19901-6, CMP, 1987-12, 4485-04, 449-2, ENAP #### [facility] ([id number]) [address], [address] [place] [address] CO2 [Moles/Vol] 30 mmol/L Normal 22-32 [facility] Comment on above: Performed By: #### C BCA, 25862-4, CMP, 1987-12, 4485-04, 4498-2, ENAP #### [facility] ([id number]) [address], [address] [place] [address] Creatinine [Mass/Vol] 0.63 mg/dL Normal 0.60-1.[address] [facility] Comment on above: Result Comment: METH OD TRACEABLE TO IDMS STANDARD Performed By: #### C BCA, 67737-9, CMP, 1987-12, 4485-04, 4498-2, ENAP #### [facility] ([id number]) [address], [address] [place] [address] eGFR (CKD-EPI) NON-RACE DEPENDENT >90 Normal >59 [facility] Comment on above: Result Comment: Reported eGFR is based on the CKD-EPI 2020 equation that does not use a race coefficient. Performed By: #### C BCA, 07147-6, CMP, 1987-12, 4485-04, 4498-2, ENAP #### [facility] ([id number]) [address], [address] [place] [address] Glucose [Mass/Vol] 80 mg/dL Normal 65-99 [facility] Comment on above: Performed By: #### C BCA, 92198-0, CMP, 1987-12, 4485-04, 449-2, ENAP #### [facility] ([id number]) [address], [address] [place] [address] Potassium [Moles/Vol] 4.0 mmol/L Normal 3.5-5.[address] [facility] Comment on above: Performed By: #### C BCA, 65248-1, CMP, 1987-12, 4485-04, 449-2, ENAP #### [facility] ([id number]) [address], [address] [place] [address] Protein [Mass/Vol] 7.6 g/dL Normal 6.0-8.0 [facility] Comment on above: Performed By: #### C BCA, 91471-3, CMP, 1987-12, 4485-04, 4498-2, ENAP #### [facility] ([id number]) [address], [address] [place] [address] Sodium [Moles/Vol] 139 mmol/L Normal 134-146 [facility] Comment on above: Performed By: #### C BCA, 19116-6, CMP, 1987-12, 4485-04, 449-2, ENAP #### [facility] ([id number]) [address], [address] [place] [address] Urea nitrogen [Mass/Vol] 17 mg/dL Normal 5-23 [facility] Comment on above: Performed By: #### C POOL, 78560-3, CMP, 1987-12, 4485-04, 4498-2, ENAP #### [facility] ([id number]) [address], [address] [place] [address] Glucose Glucometer (BldC) [M ass/Vol]on 08-14-2024 Glucose [Mass/Vol] 184 mg/dL High 65-99 [facility] Glucose [Mass/Vol] 166 mg/dL High 65-99 [facility] Glucose [Mass/Vol] 112 mg/dL High 65-99 [facility] Glucose [Mass/Vol] 81 mg/dL Normal 65-99 [facility] CBC AND AUTO DIFFon 08-13-20 ABSOLUTE BASOPHIL 0.0 X10E9/L Normal 0.0-0.2 [facility] Comment on above: Performed By: #### C POOL, 74122-4, CMP, 1987-12, 4485-04, 4498-2, ENAP #### [facility] ([id number]) [address], [address] [place] [address] ABSOLUTE NEUTROPHIL 7.7 X10E9/L High 1.5-6.6 [facility] Comment on above: Performed By: #### C POOL, 52815-8, CMP, 1987-12, 4485-04, 4498-2, ENAP #### [facility] ([id number]) [address], [address] [place] [address] Basophils/100 WBC (Bld) 0.3 % Normal [facility] Comment on above: Performed By: #### C POOL, 23896-5, CMP, 1987-12, 4485-04, 4498-2, ENAP #### [facility] ([id number]) [address], [address] [place] [address] Eosinophils (Bld) [#/Vol] 0.1 10*3/uL Normal 0.0-0.4 [facility] Comment on above: Performed By: #### C BCA, 46204-1, CMP, 1987-12, 4485-04, 8-2, ENAP #### [facility] ([id number]) [address], [facility] [address] [place] [address] Eosinophils/100 WBC (Bld) 0.5 % Normal [facility] Comment on above: Performed By: #### C BCA, 27960-3, CMP, 1987-12, 4485-04, 4497-2, ENAP #### [facility] ([id number]) [address] [address] [place] [address] Erythrocyte distribution width (RBC) [Ratio] 13.0 % Normal 11.5-15.0 [facility] Comment on above: Performed By: #### C BCA, 05385-0, CMP, 1987-12, 4485-04, 4497-2, ENAP #### [facility] ([id number]) [address] [address] [place] [address] Hematocrit (Bld) [Volume fraction] 44.5 % Normal 39-49 [facility] Comment on above: Performed By: #### C BCA, 53763-3, CMP, 1987-12, 4485-04, 449-2, ENAP #### [facility] ([id number]) [address] [address] [place] [address] Hemoglobin (Bld) [Mass/Vol] 14.9 g/dL Normal 13.0-17.0 [facility] Comment on above: Performed By: #### C BCA, 30054-0, CMP, 1987-12, 4485-04, 4497-2, ENAP #### [facility] ([id number]) [address], [address] [place] [address] Lymphocytes (Bld) [#/Vol] 3.4 10*3/uL Normal 1.0-3.5 [facility] Comment on above: Performed By: #### C POOL, 83197-1, CMP, 1987-12, 4485-04, 8-2, ENAP #### [facility] ([id number]) [address], [facility] [address] [place] [address] Lymphocytes/100 WBC (Bld) 28.1 % Normal [facility] Comment on above: Performed By: #### C POOL, 96739-1, CMP, 1987-12, 4485-04, 4497-2, ENAP #### [facility] ([id number]) [address], [facility] [address] [place] [address] MCH (RBC) [Entitic mass] 29.5 pg Normal 27-34 [facility] Comment on above: Performed By: #### Luke LANZA, 33692-9, CMP, 1987-12, 4485-04, 449-2, ENAP #### [facility] ([id number]) [address], [facility] [address] [place] [address] MCHC (RBC) [Mass/Vol] 33.5 g/dL Normal 32-[address] [facility] Comment on above: Performed By: #### Luke LANZA, 48423-7, CMP, 1987-12, 4485-04, 4497-2, ENAP #### [facility] ([id number]) [address], [facility] [address] [place] [address] MCV (RBC) [Entitic vol] 88 fL Normal 80-100 [facility] Comment on above: Performed By: #### Luke LANZA, 48243-7, CMP, 1987-12, 4485-04, 4497-2, ENAP #### [facility] ([id number]) [address] [address] [place] [address] Monocytes (Bld) [#/Vol] 1.0 10*3/uL High 0-0.9 [facility] Comment on above: Performed By: #### C POOL, 16492-3, CMP, 1987-12, 4485-04, 8-2, ENAP #### [facility] ([id number]) [address], [address] [place] [address] Monocytes/100 WBC (Bld) 8.3 % Normal [facility] Comment on above: Performed By: #### C POOL, 14192-3, CMP, 1987-12, 4485-04, 4497-2, ENAP #### [facility] ([id number]) [address], [facility] [address] [place] [address] Neutrophils/100 WBC (Bld) 62.8 % Normal [facility] Comment on above: Performed By: #### Luke LANZA, 92629-5, CMP, 1987-12, 4485-04, 449-2, ENAP #### [facility] ([id number]) [address], [address] [place] [address] Platelet mean volume (Bld) [Entitic vol] 8.2 fL Normal 7-12 [facility] Comment on above: Performed By: #### Luke LANZA, 02467-3, CMP, 1987-12, 4485-04, 2, ENAP #### [facility] ([id number]) [address], [address] [place] [address] Platelets (Bld) [#/Vol] 276 10*3/uL Normal 150-450 [facility] Comment on above: Performed By: #### Luke LANZA, 68119-2, CMP, 1987-12, 4485-04, 2, ENAP #### [facility] ([id number]) [address], [address] [place] [address] RBC COUNT 5.06 X10E12/L Normal 4.10-5.70 [facility] Comment on above: Performed By: #### C BCA, 18465-8, CMP, 1987-12, 4484-9, 4498-2, ENAP #### [facility] ([id number]) [address], [address] [place] [address] WBC (Bld) [#/Vol] 12.3 10*3/uL High 4.0-11.0 [facility] Comment on above: Performed By: #### C BCA, 77076-3, CMP, 1987-12, 4484-9, 4498-2, ENAP #### [facility] ([id number]) [address], [address] [place] [address] COMPREHENSIVE METABOLIC PANE Rayshawn 08-13-2024 Albumin [Mass/Vol] 3.7 g/dL Normal 3.2-5.3 [facility] Comment on above: Performed By: #### C BCA, 32853-9, CMP, 1987-12, 4485-04, 4498-2, ENAP #### [facility] ([id number]) [address], [address] [place] [address] ALP [Catalytic activity/Vol] 54 U/L Normal 39-130 [facility] Comment on above: Performed By: #### C BCA, 35550-1, CMP, 1987-12, 4485-04, 4498-2, ENAP #### [facility] ([id number]) [address], [address] [place] [address] ALT [Catalytic activity/Vol] 21 U/L Normal 0-40 [facility] Comment on above: Performed By: #### C BCA, 84726-1, CMP, 1987-12, 4485-04, 4498-2, ENAP #### [facility] ([id number]) [address], [address] [place] [address] Anion gap [Moles/Vol] 7 mmol/L Normal 5-15 [facility] Comment on above: Performed By: #### C BCA, 31496-5, CMP, 1987-12, 4485-04, 4498-2, ENAP #### [facility] ([id number]) [address], [address] [place] [address] AST [Catalytic activity/Vol] 15 U/L Normal 0-41 [facility] Comment on above: Performed By: #### C BCA, 72836-7, CMP, 1987-12, 4485-04, 4498-2, ENAP #### [facility] ([id number]) [address], [address] [place] [address] Bilirubin [Mass/Vol] 0.7 mg/dL Normal 0.3-1.2 [facility] Comment on above: Performed By: #### C BCA, 58709-8, CMP, 1987-12, 4485-04, 4498-2, ENAP #### [facility] ([id number]) [address], [address] [place] [address] Calcium [Mass/Vol] 9.1 mg/dL Normal 8.5-10.5 [facility] Comment on above: Performed By: #### C BCA, 61601-7, CMP, 1987-12, 4485-04, 4498-2, ENAP #### [facility] ([id number]) [address], [address] [place] [address] Chloride [Moles/Vol] 102 mmol/L Normal 98-109 [facility] Comment on above: Performed By: #### C BCA, 05079-7, CMP, 1987-12, 4485-04, 4498-2, ENAP #### [facility] ([id number]) [address], [address] [place] [address] CO2 [Moles/Vol] 30 mmol/L Normal 22-32 [facility] Comment on above: Performed By: #### C BCA, 24971-7, CMP, 1987-12, 4485-04, 4498-2, ENAP #### [facility] ([id number]) [address], [facility] [address] [place] [address] Creatinine [Mass/Vol] 0.61 mg/dL Normal 0.60-1.[address] [facility] Comment on above: Result Comment: METH OD TRACEABLE TO IDMS STANDARD Performed By: #### C BCA, 15252-5, CMP, 1987-12, 4485-04, 4498-2, ENAP #### [facility] ([id number]) [address], [address] [address] eGFR (CKD-EPI) NON-RACE DEPENDENT >90 Normal >59 [facility] Comment on above: Result Comment: Reported eGFR is based on the CKD-EPI 2020 equation that does not use a race coefficient. Performed By: #### C BCA, 95683-6, CMP, 1987-12, 4485-04, 4498-2, ENAP #### [facility] ([id number]) [address], [address] [place] [address] Glucose [Mass/Vol] 113 mg/dL High 65-99 [facility] Comment on above: Performed By: #### C BCA, 81948-7, CMP, 1987-12, 4485-04, 4498-2, ENAP #### [facility] ([id number]) [address], [facility] [address] [place] [address] Potassium [Moles/Vol] 4.3 mmol/L Normal 3.5-5.[address] [facility] Comment on above: Performed By: #### C BCA, 53146-1, CMP, 1987-12, 4485-04, 4498-2, ENAP #### [facility] ([id number]) [address], [facility] [address] [place] [address] Protein [Mass/Vol] 7.4 g/dL Normal 6.0-8.0 [facility] Comment on above: Performed By: #### C BCA, 39475-5, CMP, 1987-12, 4484-9, 4498-2, ENAP #### [facility] ([id number]) [address], [address] [place] [address] Sodium [Moles/Vol] 139 mmol/L Normal 134-146 [facility] Comment on above: Performed By: #### C BCA, 56797-2, CMP, 1987-12, 4484-9, 4498-2, ENAP #### [facility] ([id number]) [address], [address] [place] [address] Urea nitrogen [Mass/Vol] 15 mg/dL Normal 5-23 [facility] Comment on above: Performed By: #### C BCA, 31738-4, [facility], 1987-12, 4485-04, 4498-2, ENAP #### [facility] ([id number]) [address], [address] [place] [address] Glucose Glucometer (BldC) [M ass/Vol]on 08-13-2024 Glucose [Mass/Vol] 183 mg/dL High 65-99 [facility] Glucose [Mass/Vol] 246 mg/dL High 65-99 [facility] Glucose [Mass/Vol] 189 mg/dL High 65-99 [facility] Glucose [Mass/Vol] 103 mg/dL High 65-99 [facility] Aldolase [Catalytic activity /Vol]on 08-12-2024 ALDOLASE 4.6 U/L Normal 1.2-7.6 [facility] Comment on above: Result Comment: NOTE REFERENCE INTERVAL: Aldolase Access complete set of age- and/or gender-specific reference intervals for this test in the [employer] Directory ([employer] Performed By: [employer] [address] [place] [address] Tower Watchman: Leonardo Topete MD, PhD CLIA Number: [id number] CBC AND AUTO DIFFon 12-16-20 24 ABSOLUTE BASOPHIL 0.0 X10E9/L Normal 0.0-0.2 [facility] Comment on above: Performed By: #### C POOL, 39532-1, CMP, 1987-12, 4485-04, 4497-2, ENAP #### [facility] ([id number]) [address], [address] [place] [address] ABSOLUTE NEUTROPHIL 6.6 X10E9/L Normal 1.5-6.6 [facility] Comment on above: Performed By: #### C POOL, 80500-7, CMP, 1987-12, 4485-04, 2, ENAP #### [facility] ([id number]) [address], [address] [place] [address] Basophils/100 WBC (Bld) 0.1 % Normal [facility] Comment on above: Performed By: #### C POOL, 88508-6, CMP, 1987-12, 4485-04, 2, ENAP #### [facility] ([id number]) [address], [address] [place] [address] Eosinophils (Bld) [#/Vol] 0.0 10*3/uL Normal 0.0-0.4 [facility] Comment on above: Performed By: #### C POOL, 18960-7, CMP, 1987-12, 4485-04, 2, ENAP #### [facility] ([id number]) [address], [address] [place] [address] Eosinophils/100 WBC (Bld) 0.0 % Normal [facility] Comment on above: Performed By: #### C POOL, 53089-2, CMP, 1987-12, 4485-04, 2, ENAP #### [facility] ([id number]) [address], [address] [place] [address] Erythrocyte distribution width (RBC) [Ratio] 13.2 % Normal 11.5-15.0 [facility] Comment on above: Performed By: #### C POOL, 31017-1, CMP, 1987-12, 4485-04, 8-2, ENAP #### [facility] ([id number]) [address], [address] [place] [address] Hematocrit (Bld) [Volume fraction] 44.9 % Normal 39-49 [facility] Comment on above: Performed By: #### C POOL, 54714-3, CMP, 1987-12, 4485-04, 4498-2, ENAP #### [facility] ([id number]) [address], [address] [place] [address] Hemoglobin (Bld) [Mass/Vol] 15.2 g/dL Normal 13.0-17.0 [facility] Comment on above: Performed By: #### C POOL, 75438-6, CMP, 1987-12, 4485-04, 4498-2, ENAP #### [facility] ([id number]) [address], [address] [place] [address] Lymphocytes (Bld) [#/Vol] 1.2 10*3/uL Normal 1.0-3.5 [facility] Comment on above: Performed By: #### C POOL, 71107-2, CMP, 1987-12, 4485-04, 449-2, ENAP #### [facility] ([id number]) [address], [address] [place] [address] Lymphocytes/100 WBC (Bld) 15.3 % Normal [facility] Comment on above: Performed By: #### C POOL, 32110-0, CMP, 1987-12, 4485-04, 4498-2, ENAP #### [facility] ([id number]) [address], [address] [place] [address] MCH (RBC) [Entitic mass] 29.9 pg Normal 27-34 [facility] Comment on above: Performed By: #### C BCA, 69353-5, CMP, 1987-12, 4485-04, 4497-2, ENAP #### [facility] ([id number]) [address], [address] [place] [address] MCHC (RBC) [Mass/Vol] 33.8 g/dL Normal 32-[address] [facility] Comment on above: Performed By: #### C BCA, 72097-0, CMP, 1987-12, 4485-04, 4497-2, ENAP #### [facility] ([id number]) [address], [address] [place] [address] MCV (RBC) [Entitic vol] 88 fL Normal 80-100 [facility] Comment on above: Performed By: #### C BCA, 38709-4, CMP, 1987-12, 4485-04, 449-2, ENAP #### [facility] ([id number]) [address], [address] [place] [address] Monocytes (Bld) [#/Vol] 0.3 10*3/uL Normal 0-0.9 [facility] Comment on above: Performed By: #### C BCA, 58912-5, CMP, 1987-12, 4485-04, 4497-2, ENAP #### [facility] ([id number]) [address], [address] [place] [address] Monocytes/100 WBC (Bld) 3.2 % Normal [facility] Comment on above: Performed By: #### C BCA, 21233-7, CMP, 1987-12, 4485-04, 449-2, ENAP #### [facility] ([id number]) [address], [address] [place] [address] Neutrophils/100 WBC (Bld) 81.4 % Normal [facility] Comment on above: Performed By: #### C BCA, 86175-9, CMP, 1987-12, 4484-9, 4498-2, ENAP #### [facility] ([id number]) [address], [address] [place] [address] Platelet mean volume (Bld) [Entitic vol] 7.7 fL Normal 7-12 [facility] Comment on above: Performed By: #### C BCA, 25907-9, CMP, 1987-12, 9, 4498-2, ENAP #### [facility] ([id number]) [address], [address] [address] Platelets (Bld) [#/Vol] 289 10*3/uL Normal 150-450 [facility] Comment on above: Performed By: #### C BCA, 10483-3, CMP, 1987-12, 4485-04, 4498-2, ENAP #### [facility] ([id number]) [address], [address] [place] [address] RBC COUNT 5.08 X10E12/L Normal 4.10-5.70 [facility] Comment on above: Performed By: #### C BCA, 08789-6, CMP, 1987-12, 4485-04, 4498-2, ENAP #### [facility] [facility] ([id number]) [address], [address] [place] [address] WBC (Bld) [#/Vol] 8.1 10*3/uL Normal 4.0-11.0 [facility] Comment on above: Performed By: #### C BCA, 69951-9, CMP, 1987-12, 4485-04, 4498-2, ENAP #### [facility] ([id number]) [address], [address] [place] [address] COMPREHENSIVE METABOLIC PANE Rayshawn 08-12-2024 Albumin [Mass/Vol] 4.1 g/dL Normal 3.2-5.3 [facility] Comment on above: Performed By: #### C BCA, 94416-3, CMP, 1987-12, 4485-04, 4498-2, ENAP #### [facility] ([id number]) [address], [address] [place] [address] ALP [Catalytic activity/Vol] 60 U/L Normal 39-130 [facility] Comment on above: Performed By: #### C BCA, 76103-6, CMP, 1987-12, 4485-04, 4498-2, ENAP #### [facility] ([id number]) [address], [address] [place] [address] ALT [Catalytic activity/Vol] 14 U/L Normal 0-40 [facility] Comment on above: Performed By: #### C BCA, 61994-6, CMP, 1987-12, 4485-04, 449-2, ENAP #### [facility] ([id number]) [address], [address] [place] [address] Anion gap [Moles/Vol] 9 mmol/L Normal 5-[address] [facility] Comment on above: Performed By: #### C BCA, 78399-3, CMP, 1987-12, 4485-04, 4498-2, ENAP #### [facility] ([id number]) [address], [address] [place] [address] AST [Catalytic activity/Vol] 14 U/L Normal 0-41 [facility] Comment on above: Performed By: #### C BCA, 48357-8, CMP, 1987-12, 4485-04, 4498-2, ENAP #### [facility] ([id number]) [address], [address] [place] [address] Bilirubin [Mass/Vol] 0.6 mg/dL Normal 0.3-1.2 [facility] Comment on above: Performed By: #### C BCA, 02938-1, CMP, 1987-12, 4485-04, 4498-2, ENAP #### [facility] ([id number]) [address], [address] [place] [address] Calcium [Mass/Vol] 9.2 mg/dL Normal 8.5-10.5 [facility] Comment on above: Performed By: #### C BCA, 58129-2, CMP, 1987-12, 4485-04, 4498-2, ENAP #### [facility] ([id number]) [address], [address] [place] [address] Chloride [Moles/Vol] 102 mmol/L Normal 98-109 [facility] Comment on above: Performed By: #### C BCA, 49663-9, CMP, 1987-12, 4485-04, 4498-2, ENAP #### [facility] ([id number]) [address], [address] [place] [address] CO2 [Moles/Vol] 25 mmol/L Normal 22-32 [facility] Comment on above: Performed By: #### C BCA, 72663-1, CMP, 1987-12, 4485-04, 4498-2, ENAP #### [facility] ([id number]) [address], [facility] [address] [place] [address] Creatinine [Mass/Vol] 0.56 mg/dL Low 0.60-1.[address] [facility] Comment on above: Result Comment: METH OD TRACEABLE TO IDMS STANDARD Performed By: #### C BCA, 85267-6, CMP, 1987-12, 4485-04, 4498-2, ENAP #### [facility] ([id number]) [address], [address] [place] [address] eGFR (CKD-EPI) NON-RACE DEPENDENT >90 Normal >59 [facility] Comment on above: Result Comment: Reported eGFR is based on the CKD-EPI 2020 equation that does not use a race coefficient. Performed By: #### C BCA, 53310-4, CMP, 1987-12, 4485-04, 4498-2, ENAP #### [facility] ([id number]) [address], [address] [place] [address] Glucose [Mass/Vol] 175 mg/dL High 65-99 [facility] Comment on above: Performed By: #### C BCA, 93500-0, CMP, 1987-12, 4485-04, 4498-2, ENAP #### [facility] ([id number]) [address], [address] [place] [address] Potassium [Moles/Vol] 4.6 mmol/L Normal 3.5-5.[address] [facility] Comment on above: Performed By: #### C BCA, 16734-6, CMP, 1987-12, 4485-04, 449-2, ENAP #### [facility] ([id number]) [address], [address] [place] [address] Protein [Mass/Vol] 7.6 g/dL Normal 6.0-8.0 [facility] Comment on above: Performed By: #### C BCA, 44326-8, CMP, 1987-12, 4485-04, 4498-2, ENAP #### [facility] ([id number]) [address], [address] [place] [address] Sodium [Moles/Vol] 136 mmol/L Normal 134-146 [facility] Comment on above: Performed By: #### C BCA, 66979-0, CMP, 1987-12, 4485-04, 4498-2, ENAP #### [facility] ([id number]) [address], [address] [place] [address] Urea nitrogen [Mass/Vol] 18 mg/dL Normal 5-23 [facility] Comment on above: Performed By: #### C BCA, 42247-3, CMP, 1987-12, 4485-04, 4498-2, ENAP #### [facility] ([id number]) [address] [facility], [address] [place] [address] Glucose Glucometer (BldC) [M ass/Vol]on 08-12-2024 Glucose [Mass/Vol] 237 mg/dL High 65-99 [facility] Glucose [Mass/Vol] 171 mg/dL High 65-99 [facility] Glucose [Mass/Vol] 116 mg/dL High 65-99 [facility] Glucose [Mass/Vol] 117 mg/dL High 65-99 [facility] Heavy metals panel (Bld)on 10-13-2023 Arsenic, B <1 Normal <13 [facility] Comment on above: Result Comment: NOTE ADDITIONAL INFORMATION This test was developed and its performance characteristics determined by [facility] in a manner consistent with CLIA requirements. This test has not been cleared or approved by the U.S. Food and Drug Administration. Cadmium, B <0.2 Normal <5.0 [facility] Comment on above: Result Comment: NOTE ADDITIONAL INFORMATION This test was developed and its performance characteristics determined by [facility] in a manner consistent with CLIA requirements. This test has not been cleared or approved by the U.S. Food and Drug Administration. Lead, B <1.0 Normal <3.5 [facility] Comment on above: Result Comment: NOTE ADDITIONAL INFORMATION Testing performed by Triple Quadrupole Inductively Coupled Plasma-Mass Spectrometry (ICP-MS/MS). This test was developed and its performance characteristics determined by [facility] in a manner consistent with CLIA requirements. This test has not been cleared or approved by the U.S. Food and Drug Administration. Mercury, B <1 Normal <10 [facility] Comment on above: Result Comment: NOTE ADDITIONAL INFORMATION This test was developed and its performance characteristics determined by [facility] in a manner consistent with CLIA requirements. This test has not been cleared or approved by the U.S. Food and Drug Administration. Venous/Capillary Venous Normal [facility] CBC AND AUTO DIFFon 08-11-20 24 ABSOLUTE BASOPHIL 0.1 X10E9/L Normal 0.0-0.2 [facility] Comment on above: Performed By: #### Luke LANZA, 09270-0, [facility], 1987-12, 4485-04, 4497-09, ENAP #### [facility] ([id number]) [address], [address] [place] [address] ABSOLUTE NEUTROPHIL 12.1 X10E9/L High 1.5-6.[address] [facility] Comment on above: Performed By: #### Luke LANZA, 69453-2, [facility], 1987-12, 4485-04, 2, ENAP #### [facility] ([id number]) [address], [address] [place] [address] Basophils/100 WBC (Bld) 0.3 % Normal [facility] Comment on above: Performed By: #### Luke LANZA, 59038-1, [facility], 1987-12, 4485-04, 2, ENAP #### [facility] ([id number]) [address], [address] [place] [address] Eosinophils (Bld) [#/Vol] 0.0 10*3/uL Normal 0.0-0.4 [facility] Comment on above: Performed By: #### Luke LANZA, 65746-7, [facility], 1987-12, 4485-04, 2, ENAP #### [facility] ([id number]) [address], [address] [place] [address] Eosinophils/100 WBC (Bld) 0.1 % Normal [facility] Comment on above: Performed By: #### C POOL, 66558-8, CMP, 1987-12, 4485-04, 4498-2, ENAP #### [facility] ([id number]) [address] [address] [place] [address] Erythrocyte distribution width (RBC) [Ratio] 13.1 % Normal 11.5-15.0 [facility] Comment on above: Performed By: #### C POOL, 72779-4, CMP, 1987-12, 4485-04, 449-2, ENAP #### [facility] ([id number]) [address] [address] [place] [address] Hematocrit (Bld) [Volume fraction] 44.0 % Normal 39-49 [facility] Comment on above: Performed By: #### C POOL, 20599-6, CMP, 1987-12, 4485-04, 449-2, ENAP #### [facility] ([id number]) [address] [address] [place] [address] Hemoglobin (Bld) [Mass/Vol] 14.6 g/dL Normal 13.0-17.0 [facility] Comment on above: Performed By: #### C BCA, 19281-0, CMP, 1987-12, 4485-04, 449-2, ENAP #### [facility] ([id number]) [address] [address] Lymphocytes (Bld) [#/Vol] 3.6 10*3/uL High 1.0-3.5 [facility] Comment on above: Performed By: #### C POOL, 44860-5, CMP, 1987-12, 4485-04, 4497-2, ENAP #### [facility] ([id number]) [address], [address] [place] [address] Lymphocytes/100 WBC (Bld) 20.8 % Normal [facility] Comment on above: Performed By: #### C POOL, 33730-4, CMP, 1987-12, 4485-04, 4497-2, ENAP #### [facility] ([id number]) [address], [address] [place] [address] MCH (RBC) [Entitic mass] 29.4 pg Normal 27-34 [facility] Comment on above: Performed By: #### C POOL, 94689-4, CMP, 1987-12, 4485-04, 4497-2, ENAP #### [facility] ([id number]) [address], [address] [place] [address] MCHC (RBC) [Mass/Vol] 33.1 g/dL Normal 32-[address] [facility] Comment on above: Performed By: #### C POOL, 43578-8, CMP, 1987-12, 4485-04, 449-2, ENAP #### [facility] ([id number]) [address], [address] [place] [address] MCV (RBC) [Entitic vol] 89 fL Normal 80-100 [facility] Comment on above: Performed By: #### Luke LANZA, 36217-8, CMP, 1987-12, 4485-04, 4497-2, ENAP #### [facility] ([id number]) [address], [address] [place] [address] Monocytes (Bld) [#/Vol] 1.5 10*3/uL High 0-0.9 [facility] Comment on above: Performed By: #### Luke LNAZA, 65071-7, CMP, 1987-12, 4485-04, 4497-2, ENAP #### [facility] ([id number]) [address], [address] [place] [address] Monocytes/100 WBC (Bld) 8.7 % Normal [facility] Comment on above: Performed By: #### C POOL, 31005-9, CMP, 1987-12, 4485-04, 4498-2, ENAP #### [facility] ([id number]) [address], [facility] [address] [place] [address] Neutrophils/100 WBC (Bld) 70.1 % Normal [facility] Comment on above: Performed By: #### C POOL, 48910-9, CMP, 1987-12, 4485-04, 4498-2, ENAP #### [facility] ([id number]) [address], [facility] [address] [place] [address] Platelet mean volume (Bld) [Entitic vol] 7.7 fL Normal 7-12 [facility] Comment on above: Performed By: #### Luke LANZA, 42150-6, CMP, 1987-12, 4485-04, 4498-2, ENAP #### [facility] ([id number]) [address], [facility] [address] [place] [address] Platelets (Bld) [#/Vol] 327 10*3/uL Normal 150-450 [facility] Comment on above: Performed By: #### C POOL, 17759-6, CMP, 1987-12, 4485-04, 4498-2, ENAP #### [facility] ([id number]) [address], [address] [place] [address] RBC COUNT 4.96 X10E12/L Normal 4.10-5.70 [facility] Comment on above: Performed By: #### C POOL, 68201-4, CMP, 1987-12, 4485-04, 4498-2, ENAP #### [facility] ([id number]) [address], [address] [place] [address] WBC (Bld) [#/Vol] 17.3 10*3/uL High 4.0-11.0 [facility] Comment on above: Performed By: #### C BCA, 40317-2, CMP, 1987-12, 4484-9, 4498-2, ENAP #### [facility] ([id number]) [address], [address] [place] [address] COMPREHENSIVE METABOLIC PANE Rayshawn 08-11-2024 Albumin [Mass/Vol] 4.2 g/dL Normal 3.2-5.3 [facility] Comment on above: Performed By: #### C BCA, 71149-6, CMP, 1987-12, 4484-9, 4498-2, ENAP #### [facility] ([id number]) [address], [address] [place] [address] ALP [Catalytic activity/Vol] 64 U/L Normal 39-130 [facility] Comment on above: Performed By: #### C BCA, 72051-7, CMP, 1987-12, 4485-04, 4498-2, ENAP #### [facility] ([id number]) [address], [address] [place] [address] ALT [Catalytic activity/Vol] 14 U/L Normal 0-40 [facility] Comment on above: Performed By: #### C BCA, 86451-0, CMP, 1987-12, 4485-04, 4498-2, ENAP #### [facility] ([id number]) [address], [address] [place] [address] Anion gap [Moles/Vol] 9 mmol/L Normal 5-[address] [facility] Comment on above: Performed By: #### C BCA, 02131-7, CMP, 1987-12, 9, 4498-2, ENAP #### [facility] ([id number]) [address], [address] [place] [address] AST [Catalytic activity/Vol] 10 U/L Normal 0-41 [facility] Comment on above: Performed By: #### C BCA, 83407-5, CMP, 1987-12, 4485-04, 4498-2, ENAP #### [facility] ([id number]) [address] [place] [address] Bilirubin [Mass/Vol] 0.7 mg/dL Normal 0.3-1.2 [facility] Comment on above: Performed By: #### C BCA, 20211-6, CMP, 1987-12, 4485-04, 4498-2, ENAP #### [facility] ([id number]) [address], [address] [place] [address] Calcium [Mass/Vol] 9.1 mg/dL Normal 8.5-10.5 [facility] Comment on above: Performed By: #### C BCA, 00674-9, CMP, 1987-12, 4485-04, 449-2, ENAP #### [facility] ([id number]) [address], [address] [place] [address] Chloride [Moles/Vol] 101 mmol/L Normal 98-109 [facility] Comment on above: Performed By: #### C BCA, 82403-6, CMP, 1987-12, 4485-04, 4498-2, ENAP #### [facility] ([id number]) [address], [address] [place] [address] CO2 [Moles/Vol] 28 mmol/L Normal 22-32 [facility] Comment on above: Performed By: #### C BCA, 09151-3, CMP, 1987-12, 4485-04, 449-2, ENAP #### [facility] ([id number]) [address], [address] [place] [address] Creatinine [Mass/Vol] 0.73 mg/dL Normal 0.60-1.[address] [facility] Comment on above: Result Comment: METH OD TRACEABLE TO IDMS STANDARD Performed By: #### C BCA, 84883-7, CMP, 1987-12, 4485-04, 4498-2, ENAP #### [facility] ([id number]) [address], [address] [place] [address] eGFR (CKD-EPI) NON-RACE DEPENDENT >90 Normal >59 [facility] Comment on above: Result Comment: Reported eGFR is based on the CKD-EPI 2020 equation that does not use a race coefficient. Performed By: #### C BCA, 75602-7, CMP, 1987-12, 4485-04, 4498-2, ENAP #### [facility] ([id number]) [address], [address] [place] [address] Glucose [Mass/Vol] 115 mg/dL High 65-99 [facility] Comment on above: Performed By: #### C BCA, 86329-9, CMP, 1987-12, 4485-04, 4498-2, ENAP #### [facility] ([id number]) [address], [address] [place] [address] Potassium [Moles/Vol] 3.9 mmol/L Normal 3.5-5.[address] [facility] Comment on above: Performed By: #### C BCA, 70071-0, CMP, 1987-12, 4485-04, 4498-2, ENAP #### [facility] ([id number]) [address], [address] [place] [address] Protein [Mass/Vol] 7.2 g/dL Normal 6.0-8.0 [facility] Comment on above: Performed By: #### C BCA, 63539-4, CMP, 1987-12, 4485-04, 4498-2, ENAP #### [facility] ([id number]) [address], [address] [place] [address] Sodium [Moles/Vol] 138 mmol/L Normal 134-146 [facility] Comment on above: Performed By: #### C POOL, 47685-8, [facility], 1987-12, 4485-04, 4498-2, ENAP #### [facility] ([id number]) [address], [address] [place] [address] Urea nitrogen [Mass/Vol] 24 mg/dL High 5-23 [facility] Comment on above: Performed By: #### C POOL, 99453-9, [facility], 1987-12, 4485-04, 449-2, ENAP #### [facility] ([id number]) [address], [address] [place] [address] Glucose Glucometer (BldC) [M ass/Vol]on 08-11-2024 Glucose [Mass/Vol] 201 mg/dL High 65-99 [facility] Glucose [Mass/Vol] 127 mg/dL High 65-99 [facility] Glucose [Mass/Vol] 128 mg/dL High 65-99 [facility] Glucose [Mass/Vol] 113 mg/dL High 65-99 [facility] CBC AND AUTO DIFFon 08-10-20 24 ABSOLUTE BASOPHIL 0.0 X10E9/L Normal 0.0-0.2 [facility] Comment on above: Performed By: #### C POOL, 41600-2, [facility], 1987-12, 4485-04, 449-2, ENAP #### [facility] ([id number]) [address], [address] [place] [address] ABSOLUTE NEUTROPHIL 21.0 X10E9/L High 1.5-6.[address] [facility] Comment on above: Performed By: #### C POOL, 91544-6, CMP, 1987-12, 4485-04, 4498-2, ENAP #### [facility] ([id number]) [address], [address] [place] [address] Basophils/100 WBC (Bld) 0.1 % Normal [facility] Comment on above: Performed By: #### C BCA, 71679-5, CMP, 1987-12, 4485-04, 449-2, ENAP #### [facility] ([id number]) [address], [address] [place] [address] Eosinophils (Bld) [#/Vol] 0.0 10*3/uL Normal 0.0-0.4 [facility] Comment on above: Performed By: #### C BCA, 36196-2, CMP, 1987-12, 4485-04, 4497-2, ENAP #### [facility] ([id number]) [address], [address] [place] [address] Eosinophils/100 WBC (Bld) 0.0 % Normal [facility] Comment on above: Performed By: #### C POOL, 03592-5, CMP, 1987-12, 4485-04, 4492, ENAP #### [facility] ([id number]) [address], [address] [place] [address] Erythrocyte distribution width (RBC) [Ratio] 13.1 % Normal 11.5-15.0 [facility] Comment on above: Performed By: #### C POOL, 17519-0, CMP, 1987-12, 4485-04, 4492, ENAP #### [facility] ([id number]) [address], [address] [place] [address] Hematocrit (Bld) [Volume fraction] 45.5 % Normal 39-49 [facility] Comment on above: Performed By: #### C BCA, 46615-9, CMP, 1987-12, 4485-04, 4492, ENAP #### [facility] ([id number]) [address], [address] [place] [address] Hemoglobin (Bld) [Mass/Vol] 15.1 g/dL Normal 13.0-17.0 [facility] Comment on above: Performed By: #### C BCA, 09120-3, CMP, 1987-12, 4485-04, 449-2, ENAP #### [facility] ([id number]) [address], [address] [place] [address] Lymphocytes (Bld) [#/Vol] 1.8 10*3/uL Normal 1.0-3.5 [facility] Comment on above: Performed By: #### C BCA, 11148-1, CMP, 1987-12, 4485-04, 4497-2, ENAP #### [facility] ([id number]) [address], [facility] [address] [place] [address] Lymphocytes/100 WBC (Bld) 7.6 % Normal [facility] Comment on above: Performed By: #### C POOL, 81754-8, CMP, 1987-12, 4485-04, 2, ENAP #### [facility] ([id number]) [address], [address] [place] [address] MCH (RBC) [Entitic mass] 29.3 pg Normal 27-34 [facility] Comment on above: Performed By: #### C POOL, 57718-7, CMP, 1987-12, 4485-04, 4492, ENAP #### [facility] ([id number]) [address], [address] [place] [address] MCHC (RBC) [Mass/Vol] 33.3 g/dL Normal 32-[address] [facility] Comment on above: Performed By: #### C BCA, 58001-6, CMP, 1987-12, 4485-04, 4492, ENAP #### [facility] ([id number]) [address], [address] [place] [address] MCV (RBC) [Entitic vol] 88 fL Normal 80-100 [facility] Comment on above: Performed By: #### Luke LANZA, 49640-5, CMP, 1987-12, 9, 4498-2, ENAP #### [facility] ([id number]) [address], [address] [place] [address] Monocytes (Bld) [#/Vol] 0.6 10*3/uL Normal 0-0.9 [facility] Comment on above: Performed By: #### C BCA, 55173-0, CMP, 1987-12, 4485-04, 4498-2, ENAP #### [facility] ([id number]) [address], [address] [place] [address] Monocytes/100 WBC (Bld) 2.8 % Normal [facility] Comment on above: Performed By: #### C BCA, 71789-6, CMP, 1987-12, 4485-04, 4498-2, ENAP #### [facility] ([id number]) [address], [address] [place] [address] Neutrophils/100 WBC (Bld) 89.5 % Normal [facility] Comment on above: Performed By: #### C BCA, 01457-3, CMP, 1987-12, 4485-04, 4498-2, ENAP #### [facility] ([id number]) [address], [address] [place] [address] Platelet mean volume (Bld) [Entitic vol] 7.8 fL Normal 7-12 [facility] Comment on above: Performed By: #### C BCA, 84819-0, CMP, 1987-12, 4485-04, 4498-2, ENAP #### [facility] ([id number]) [address], [address] [place] [address] Platelets (Bld) [#/Vol] 386 10*3/uL Normal 150-450 [facility] Comment on above: Performed By: #### Luke BCA, 26287-4, CMP, 1987-12, 4485-04, 4498-2, ENAP #### [facility] ([id number]) [address], [address] [place] [address] RBC COUNT 5.17 X10E12/L Normal 4.10-5.70 [facility] Comment on above: Performed By: #### C BCA, 28296-5, CMP, 1987-12, 4484-9, 4498-2, ENAP #### [facility] ([id number]) [address], [address] [place] [address] WBC (Bld) [#/Vol] 23.4 10*3/uL High 4.0-11.0 [facility] Comment on above: Performed By: #### C BCA, 39203-6, CMP, 1987-12, 4485-04, 4498-2, ENAP #### [facility] ([id number]) [address], [address] [place] [address] CK [Catalytic activity/Vol]o n 08-10-2024 CPK 29 U/L Normal 24-195 [facility] Comment on above: Performed By: #### C BCA, 37304-9, CMP, 1987-12, 9, 4498-2, ENAP #### [facility] ([id number]) [address], [address] [place] [address] COMPREHENSIVE METABOLIC PANE Rayshawn 08-10-2024 Albumin [Mass/Vol] 4.5 g/dL Normal 3.2-5.3 [facility] Comment on above: Performed By: #### C BCA, 03632-7, CMP, 1987-12, 4485-04, 4498-2, ENAP #### [facility] ([id number]) [address], [address] [place] [address] ALP [Catalytic activity/Vol] 76 U/L Normal 39-130 [facility] Comment on above: Performed By: #### C BCA, 59696-4, CMP, 1987-12, 4485-04, 4498-2, ENAP #### [facility] ([id number]) [address], [address] [place] [id number] ALT [Catalytic activity/Vol] 17 U/L Normal 0-40 [facility] Comment on above: Performed By: #### C BCA, 76769-3, CMP, 1987-12, 4485-04, 4498-2, ENAP #### [facility] ([id number]) [address], [address] [place] [address] Anion gap [Moles/Vol] 12 mmol/L Normal 5-[address] [facility] Comment on above: Performed By: #### C BCA, 95757-7, CMP, 1987-12, 4485-04, 4498-2, ENAP #### [facility] ([id number]) [address], [address] [place] [address] AST [Catalytic activity/Vol] 13 U/L Normal 0-41 [facility] Comment on above: Performed By: #### C BCA, 45336-9, CMP, 1987-12, 4485-04, 4498-2, ENAP #### [facility] ([id number]) [address], [address] [place] [address] Bilirubin [Mass/Vol] 0.7 mg/dL Normal 0.3-1.2 [facility] Comment on above: Performed By: #### C BCA, 19842-8, CMP, 1987-12, 4485-04, 4498-2, ENAP #### [facility] [facility] ([id number]) [address], [address] [place] [address] Calcium [Mass/Vol] 9.3 mg/dL Normal 8.5-10.5 [facility] Comment on above: Performed By: #### C BCA, 59462-7, CMP, 1987-12, 4485-04, 4498-2, ENAP #### [facility] ([id number]) [address], [address] [place] [address] Chloride [Moles/Vol] 98 mmol/L Normal 98-109 [facility] Comment on above: Performed By: #### C BCA, 87307-4, CMP, 1987-12, 4485-04, 4498-2, ENAP #### [facility] ([id number]) [address], [address] [place] [address] CO2 [Moles/Vol] 23 mmol/L Normal 22-32 [facility] Comment on above: Performed By: #### C BCA, 98260-4, CMP, 1987-12, 4485-04, 4498-2, ENAP #### [facility] ([id number]) [address], [address] [place] [address] Creatinine [Mass/Vol] 0.62 mg/dL Normal 0.60-1.[address] [facility] Comment on above: Result Comment: METH OD TRACEABLE TO IDMS STANDARD Performed By: #### C BCA, 12945-2, CMP, 1987-12, 4485-04, 449-2, ENAP #### [facility] ([id number]) [address], [address] [place] [address] eGFR (CKD-EPI) NON-RACE DEPENDENT >90 Normal >59 [facility] Comment on above: Result Comment: Reported eGFR is based on the CKD-EPI 2020 equation that does not use a race coefficient. Performed By: #### C BCA, 35197-2, CMP, 1987-12, 4485-04, 449-2, ENAP #### [facility] ([id number]) [address], [address] [place] [address] Glucose [Mass/Vol] 222 mg/dL High 65-99 [facility] Comment on above: Performed By: #### C BCA, 05680-8, CMP, 1987-12, 4485-04, 449-2, ENAP #### [facility] ([id number]) [address], [address] [place] [address] Potassium [Moles/Vol] 4.2 mmol/L Normal 3.5-5.[address] [facility] Comment on above: Performed By: #### C BCA, 38693-8, CMP, 1987-12, 4485-04, 449-2, ENAP #### [facility] ([id number]) [address], [address] [place] [address] Protein [Mass/Vol] 7.2 g/dL Normal 6.0-8.0 [facility] Comment on above: Performed By: #### C BCA, 10358-6, CMP, 1987-12, 4485-04, 4498-2, ENAP #### [facility] ([id number]) [address], [address] [place] [address] Sodium [Moles/Vol] 133 mmol/L Low 134-146 [facility] Comment on above: Performed By: #### C BCA, 71081-4, CMP, 1987-12, 4485-04, 449-2, ENAP #### [facility] ([id number]) [address], [address] [place] [address] Urea nitrogen [Mass/Vol] 25 mg/dL High 5-23 [facility] Comment on above: Performed By: #### C BCA, 78372-5, CMP, 1987-12, 4485-04, 4498-2, ENAP #### [facility] ([id number]) [address], [address] [place] [address] CRP [Mass/Vol]on 08-10-2024 C REACTIVE PROTEIN 0.5 mg/dL Normal 0.000-0.744 [facility] Comment on above: Performed By: #### C BCA, 07453-7, CMP, 1987-12, 4485-04, 4498-2, ENAP #### [facility] ([id number]) [address], [address] [place] [address] VIJAY PANELon 08-10-2024 ANTI-KENNEDY AB IGG <0.2 Normal <1.0 [facility] Comment on above: Performed By: #### C BCA, 57459-1, CMP, 1987-12, 4485-04, 4498-2, ENAP #### [facility] ([id number]) [address], [address] [place] [address] JO1 ANTIBODY <0.2 Normal <1.0 [facility] Comment on above: Performed By: #### C BCA, 09150-7, CMP, 1987-12, 4485-04, 4498-2, ENAP #### [facility] ([id number]) [address], [address] [place] [address] TURPENTINER ANTIBODY IGG 0.4 AI Normal <1.0 [facility] Comment on above: Performed By: #### C BCA, 80949-3, CMP, 1987-12, 4485-04, 4498-2, ENAP #### [facility] ([id number]) [address], [address] [place] [address] SCL 70 ANTIBODY <0.2 Normal <1.0 [facility] Comment on above: Performed By: #### C BCA, 84824-6, CMP, 1987-12, 4485-04, 4498-2, ENAP #### [facility] ([id number]) [address], [address] [place] [address] SSA ANTIBODY <0.2 Normal <1.0 [facility] Comment on above: Performed By: #### C BCA, 63520-2, CMP, 1987-12, 4485-04, 4498-2, ENAP #### [facility] ([id number]) [address], [address] [place] [address] SSB ANTIBODY <0.2 Normal <1.0 [facility] Comment on above: Performed By: #### C POOL, 93221-2, [facility], 1987-12, 4485-04, 4498-2, ENAP #### [facility] ([id number]) [address], [address] [place] [address] ESR Photometric method (Bld) [Velocity]on 08-10-2024 ESR, ERYTHROCYTE SEDIMENTATION RATE 12 mm/h Normal 0-15 [facility] Comment on above: Performed By: #### C POOL, 34020-3, [facility], 1987-12, 4485-04, 449-2, ENAP #### [facility] ([id number]) [address], [address] [place] [address] Glucose Glucometer (BldC) [M ass/Vol]on 08-10-2024 Glucose [Mass/Vol] 198 mg/dL High 65-99 [facility] Glucose [Mass/Vol] 209 mg/dL High 65-99 [facility] Glucose [Mass/Vol] 198 mg/dL High 65-99 [facility] Glucose [Mass/Vol] 197 mg/dL High 65-99 [facility] Myoglobin [Mass/Vol]on 08-10 SERUM MYOGLOBIN 39.1 ng/mL Normal 17.4-105.7 [facility] Comment on above: Performed By: #### C POOL, 71302-0, [facility], 1987-12, 4485-04, 449-2, ENAP #### [facility] ([id number]) [address], [address] [place] [address] Nuclear Ab IA Ql (S)on 08-10 RAVINDER Screen w/reflex Negative Normal NEG [facility] Comment on above: Result Comment: Testing performed using multiplex flow immunoassay. Eleven different antigens associated with systemic autoimmune diseases (dsDNA,Sm,Sm/TURPENTINER,TURPENTINER,Chromatin, SSA,SSB,Ivanna-1,Scl70,Ribo P,Centromere B) are included in this screening test. Performed By: #### C POOL, 64283-6, CMP, 1987-12, 4485-04, 4497-2, ENAP #### [facility] ([id number]) [address], [address] [place] [address] CBC AND AUTO DIFFon 121320 24 ABSOLUTE BASOPHIL 0.1 X10E9/L Normal 0.0-0.2 [facility] Comment on above: Performed By: #### C POOL, 86795-3, CMP, 1987-12, 4485-04, 4497-2, ENAP #### [facility] ([id number]) [address], [address] [place] [address] ABSOLUTE NEUTROPHIL 20.8 X10E9/L High 1.5-6.[address] [facility] Comment on above: Performed By: #### Luke LANZA, 81896-2, [facility], 1987-12, 4485-04, 2, ENAP #### [facility] ([id number]) [address], [address] [place] [address] Basophils/100 WBC (Bld) 0.3 % Normal [facility] Comment on above: Performed By: #### Luke LANZA, 21350-4, CMP, 1987-12, 4485-04, 2, ENAP #### [facility] ([id number]) [address], [address] [place] [address] Eosinophils (Bld) [#/Vol] 0.0 10*3/uL Normal 0.0-0.4 [facility] Comment on above: Performed By: #### C POOL, 57868-5, CMP, 1987-12, 4485-04, 2, ENAP #### [facility] ([id number]) [address], [address] [place] [address] Eosinophils/100 WBC (Bld) 0.0 % Normal [facility] Comment on above: Performed By: #### C BCA, 04838-6, CMP, 1987-12, 4485-04, 4497-2, ENAP #### [facility] ([id number]) [address], [address] [place] [address] Erythrocyte distribution width (RBC) [Ratio] 12.9 % Normal 11.5-15.0 [facility] Comment on above: Performed By: #### C BCA, 02905-2, CMP, 1987-12, 4485-04, 4497-2, ENAP #### [facility] ([id number]) [address], [facility] [address] [place] [address] Hematocrit (Bld) [Volume fraction] 44.5 % Normal 39-49 [facility] Comment on above: Performed By: #### C POOL, 12443-0, CMP, 1987-12, 4485-04, 449-2, ENAP #### [facility] ([id number]) [address], [address] [place] [address] Hemoglobin (Bld) [Mass/Vol] 14.7 g/dL Normal 13.0-17.0 [facility] Comment on above: Performed By: #### C POOL, 00124-1, CMP, 1987-12, 4485-04, 4492, ENAP #### [facility] ([id number]) [address], [address] [address] Lymphocytes (Bld) [#/Vol] 1.5 10*3/uL Normal 1.0-3.5 [facility] Comment on above: Performed By: #### C BCA, 05929-2, CMP, 1987-12, 4485-04, 449-2, ENAP #### [facility] ([id number]) [address], [facility] [address] [place] [address] Lymphocytes/100 WBC (Bld) 6.8 % Normal [facility] Comment on above: Performed By: #### C BCA, 47872-1, CMP, 1987-12, 4485-04, 4497-2, ENAP #### [facility] ([id number]) [address], [address] [place] [address] MCH (RBC) [Entitic mass] 29.5 pg Normal 27-34 [facility] Comment on above: Performed By: #### C BCA, 46138-3, CMP, 1987-12, 4485-04, 449-2, ENAP #### [facility] ([id number]) [address], [address] [place] [address] MCHC (RBC) [Mass/Vol] 33.0 g/dL Normal 32-[address] [facility] Comment on above: Performed By: #### C POOL, 45629-2, CMP, 1987-12, 4485-04, 2, ENAP #### [facility] ([id number]) [address], [address] [place] [address] MCV (RBC) [Entitic vol] 89 fL Normal 80-100 [facility] Comment on above: Performed By: #### C POOL, 56637-8, CMP, 1987-12, 4485-04, 449-2, ENAP #### [facility] ([id number]) [address], [address] [place] [address] Monocytes (Bld) [#/Vol] 0.4 10*3/uL Normal 0-0.9 [facility] Comment on above: Performed By: #### C BCA, 17684-3, CMP, 1987-12, 4485-04, 449-2, ENAP #### [facility] ([id number]) [address], [address] [place] [address] Monocytes/100 WBC (Bld) 1.9 % Normal [facility] Comment on above: Performed By: #### C POOL, 05379-7, CMP, 1987-12, 9, 4498-2, ENAP #### [facility] ([id number]) [address], [facility] [address] [place] [address] Neutrophils/100 WBC (Bld) 91.0 % Normal [facility] Comment on above: Performed By: #### C BCA, 26416-5, CMP, 1987-12, 4485-04, 4498-2, ENAP #### [facility] ([id number]) [address], [facility] [address] [place] [address] Platelet mean volume (Bld) [Entitic vol] 7.7 fL Normal 7-12 [facility] Comment on above: Performed By: #### Luke LANZA, 17320-6, CMP, 1987-12, 4485-04, 4498-2, ENAP #### [facility] ([id number]) [address], [address] [place] [address] Platelets (Bld) [#/Vol] 341 10*3/uL Normal 150-450 [facility] Comment on above: Performed By: #### C POOL, 62649-9, CMP, 1987-12, 4485-04, 4498-2, ENAP #### [facility] ([id number]) [address], [facility] [address] [place] [address] RBC COUNT 4.99 X10E12/L Normal 4.10-5.70 [facility] Comment on above: Performed By: #### C BCA, 57094-2, CMP, 1987-12, 4485-04, 4498-2, ENAP #### [facility] ([id number]) [address], [address] [place] [address] WBC (Bld) [#/Vol] 22.8 10*3/uL High 4.0-11.0 [facility] Comment on above: Performed By: #### Luke LANZA, 20812-0, CMP, 1987-12, 4484-9, 4498-2, ENAP #### [facility] ([id number]) [address], [address] [place] [address] COMPREHENSIVE METABOLIC PANE [facility] 08-09-2024 Albumin [Mass/Vol] 4.5 g/dL Normal 3.2-5.3 [facility] Comment on above: Performed By: #### C BCA, 69833-2, CMP, 1987-12, 4485-04, 4498-2, ENAP #### [facility] ([id number]) [address], [address] [place] [address] ALP [Catalytic activity/Vol] 71 U/L Normal 39-130 [facility] Comment on above: Performed By: #### C BCA, 96723-4, CMP, 1987-12, 4485-04, 4498-2, ENAP #### [facility] ([id number]) [address], [address] [place] [address] ALT [Catalytic activity/Vol] 22 U/L Normal 0-40 [facility] Comment on above: Performed By: #### C BCA, 78664-2, CMP, 1987-12, 4485-04, 4498-2, ENAP #### [facility] ([id number]) [address], [address] [place] [address] Anion gap [Moles/Vol] 12 mmol/L Normal 5-[address] [facility] Comment on above: Performed By: #### C BCA, 07000-2, CMP, 1987-12, 4485-04, 4498-2, ENAP #### [facility] ([id number]) [address], [address] [place] [address] AST [Catalytic activity/Vol] 13 U/L Normal 0-41 [facility] Comment on above: Performed By: #### C BCA, 11528-1, CMP, 1987-12, 4485-04, 4498-2, ENAP #### [facility] ([id number]) [address], [address] [place] [address] Bilirubin [Mass/Vol] 0.8 mg/dL Normal 0.3-1.2 [facility] Comment on above: Performed By: #### C BCA, 79790-5, CMP, 1987-12, 4485-04, 4497-2, ENAP #### [facility] ([id number]) [address], [address] [place] [address] Calcium [Mass/Vol] 9.6 mg/dL Normal 8.5-10.5 [facility] Comment on above: Performed By: #### C BCA, 12365-3, CMP, 1987-12, 4485-04, 4497-2, ENAP #### [facility] ([id number]) [address], [address] [place] [address] Chloride [Moles/Vol] 100 mmol/L Normal 98-109 [facility] Comment on above: Performed By: #### C BCA, 96868-4, CMP, 1987-12, 4485-04, 2, ENAP #### [facility] ([id number]) [address], [address] [place] [address] CO2 [Moles/Vol] 24 mmol/L Normal 22-32 [facility] Comment on above: Performed By: #### C BCA, 71724-5, CMP, 1987-12, 4485-04, 449-2, ENAP #### [facility] ([id number]) [address], [address] [place] [address] Creatinine [Mass/Vol] 0.77 mg/dL Normal 0.60-1.[address] [facility] Comment on above: Result Comment: METH OD TRACEABLE TO IDMS STANDARD Performed By: #### C BCA, 77446-7, CMP, 1987-12, 4485-04, 4497-2, ENAP #### [facility] ([id number]) [address], [address] [place] [address] eGFR (CKD-EPI) NON-RACE DEPENDENT >90 Normal >59 [facility] Comment on above: Result Comment: Reported eGFR is based on the CKD-EPI 2020 equation that does not use a race coefficient. Performed By: #### C BCA, 67684-9, CMP, 1987-12, 4485-04, 449-2, ENAP #### [facility] ([id number]) [address], [address] [place] [address] Glucose [Mass/Vol] 203 mg/dL High 65-99 [facility] Comment on above: Performed By: #### C BCA, 02905-6, CMP, 1987-12, 4485-04, 4498-2, ENAP #### [facility] ([id number]) [address], [address] [place] [address] Potassium [Moles/Vol] 3.9 mmol/L Normal 3.5-5.[address] [facility] Comment on above: Performed By: #### C BCA, 67510-4, CMP, 1987-12, 4485-04, 4498-2, ENAP #### [facility] ([id number]) [address], [address] [place] [address] Protein [Mass/Vol] 7.0 g/dL Normal 6.0-8.0 [facility] Comment on above: Performed By: #### C BCA, 66840-4, CMP, 1987-12, 4485-04, 449-2, ENAP #### [facility] ([id number]) [address], [address] [place] [address] Sodium [Moles/Vol] 136 mmol/L Normal 134-146 [facility] Comment on above: Performed By: #### C BCA, 61236-2, CMP, 1987-12, 4485-04, 449-2, ENAP #### [facility] ([id number]) [address], [address] [place] [address] Urea nitrogen [Mass/Vol] 23 mg/dL Normal 5-23 [facility] Comment on above: Performed By: #### C POOL, 45884-0, CMP, 1987-12, 9, 4498-2, ENAP #### [facility] ([id number]) [address], [address] [place] [address] Glucose Glucometer (BldC) [M ass/Vol]on 08-09-2024 Glucose [Mass/Vol] 267 mg/dL High 65-99 [facility] Glucose [Mass/Vol] 147 mg/dL High 65-99 [facility] IGAon 08-09-2024 IgA [Mass/Vol] 247 mg/dL Normal 68-378 [facility] Comment on above: Performed By: #### C POOL, 73861-1, CMP, 1987-12, 4485-04, 4498-2, ENAP #### [facility] ([id number]) [address], [address] [place] [address] aPTT Coag (PPP) [Time]on aPTT Coag (Bld) [Time] 29 s Normal 26-37 [facility] Comment on above: Performed By: #### C POOL, 61035-0, CMP, 1987-12, 4485-04, 4498-2, ENAP #### [facility] ([id number]) [address], [address] [place] [address] CNOVon 07-10-2024 CNOV Office Visit (NRESFV ) -- BHUMIKA UMANA ([id number]) 1975 M Date Time Provider Department 07/10/24 9:30 AM DARE[facility] VALDOVINOSESFV During your visit today, we recorded the following information about you: Pulse Blood pressure Weight Height 78/minute 139/79 144.8 kg 1.905 m Keith Leone MD 07/10/2024 1:12 PM Signed [facility] New Patient Evaluation Consulting Provider: Errol Sanford [address] [facility] [address] Chief Complaint/Issues: Bhumika Umana is a 48 year old male with hx of ?RA, T2DM, past tobacco use, obesity, seen in the [facility] for: Progressive BL UE weakness and numbness Intermittent LE weakness HPI: Patient states symptoms started in December 2023 with numbness in his fingertips BL. 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 His right [...] he had celluliutis. He re-established with a jewel inspector locally who felt he did not have [...] and natan (more content not included)... Normal [facility] CNCOon 06-27-2024 CNCO Letter Text Normal [facility] HEALTHon 06-26-2024 ALLIED HEALTH HNO ID: [id number] Author: ROCIO ANAYA RT(Lavern) Service: Radiology Author Type: School Resource Officer Type: Allied Health Filed: 06/26/2024 07:24 Note [...] PATIENT PRESENTS WITH AN IMPLANTABLE OR ATTACHED FLAT BED OPERATOR: No RADIOLOGY DEPARTMENT: MR; Exam(s) Completed: Spine: Cervical spine PERIPHERAL IV DATA: Inpatient: see LDA documentation SIGNED BY: RT Gelacio(Lavern) June 26, 2024 7:23 AM Normal [facility] CBC panel Auto (Bld)on 06-26 Erythrocyte distribution width (RBC) [Ratio] 12.1 % Normal 11.5-15.0 [facility] Comment on above: Order Comment: Speci men Type: BLOOD SPECIMEN Ordering Facility: [facility] Address: [address] [place] [address] Performed By: #### L [id number] #### [facility] CLIA [id number] [address] [place] [address] [place] Hematocrit (Bld) [Volume fraction] 42.5 % Normal 39.0-51.0 [facility] Comment on above: Order Comment: Speci men Type: BLOOD SPECIMEN Ordering Facility: [facility] Address: [address] [place] [address] Performed By: #### L [id number] #### [facility] CLIA [id number] [address] [place] [address] [place] Hemoglobin (Bld) [Mass/Vol] 14.2 g/dL Normal 13.0-17.0 [facility] Comment on above: Order Comment: Speci men Type: BLOOD SPECIMEN Ordering Facility: [facility] Address: [address] [place] [address] Performed By: #### L [id number] #### [facility] CLIA [id number] [address] [place] [address] [place] MCH (RBC) [Entitic mass] 30.0 pg Normal 26.0-34.0 [facility] Comment on above: Order Comment: Speci men Type: BLOOD SPECIMEN Ordering Facility: [facility] Address: [address] [place] [address] Performed By: #### L [id number] #### [facility] CLIA [id number] [address] [place] [address] [place] MCHC (RBC) [Mass/Vol] 33.4 g/dL Normal 30.5-36.0 [facility] Comment on above: Order Comment: Speci men Type: BLOOD SPECIMEN Ordering Facility: [facility] Address: [address] [place] [address] Performed By: #### L [id number] #### [facility] CLIA [id number] [address] [place] [address] [place] MCV (RBC) [Entitic vol] 89.7 fL Normal 80.0-100.0 [facility] Comment on above: Order Comment: Speci men Type: BLOOD SPECIMEN Ordering Facility: [facility] Address: [address] [place] [address] Performed By: #### L [id number] #### [facility] CLIA [id number] [address] [place] [address] [place] Nucleated RBC (Bld) [#/Vol] 10*3/uL Normal <0.01 [facility] Comment on above: Order Comment: Speci men Type: BLOOD SPECIMEN Ordering Facility: [facility] Address: [address] [place] [address] Performed By: #### L [id number] #### [facility] CLIA [id number] [address] [place] [address] [place] Platelet mean volume (Bld) [Entitic vol] 9.2 fL Normal 9.0-12.7 [facility] Comment on above: Order Comment: Speci men Type: BLOOD SPECIMEN Ordering Facility: [facility] Address: [address] [place] [address] Performed By: #### L [id number] #### [facility] CLIA [id number] [address] [place] [address] [place] Platelets (Bld) [#/Vol] 304 10*3/uL Normal 150-400 [facility] Comment on above: Order Comment: Speci men Type: BLOOD SPECIMEN Ordering Facility: [facility] Address: [address] [place] [address] Performed By: #### L [id number] #### [facility] CLIA [id number] [address] [place] [address] [place] RBC (Bld) [#/Vol] 4.74 10*6/uL Normal 4.20-6.00 [facility] Comment on above: Order Comment: Speci men Type: BLOOD SPECIMEN Ordering Facility: [facility] Address: [address] [place] [address] Performed By: #### L [id number] #### [facility] CLIA [id number] [address] [place] [address] [place] WBC (Bld) [#/Vol] 8.67 10*3/uL Normal 3.70-11.00 [facility] Comment on above: Order Comment: Speci men Type: BLOOD SPECIMEN Ordering Facility: [facility] Address: [address] [place] [address] Performed By: #### L [id number] #### [facility] CLIA [id number] [address] [place] [address] [place] [facility] CBC PNL BLD AUTOon 06-26 [facility] NRBC # BLD AUTO <0.01 [facility] PLATELET # BLD AUTO 304 [facility] PMV BLD AUTO 9.2 fL 9.0 - 12.7 fL [facility] WBC # BLD AUTO 8.67 [facility] Erythrocyte distribution width (RBC) [Ratio] 12.1 % 11.5 - 15.0 % [facility] Hematocrit (Bld) [Volume fraction] 42.5 % 39.0 - 51.0 % [facility] Hemoglobin (Bld) [Mass/Vol] 14.2 g/dL 13.0 - 17.0 g/dL [facility] MCH (RBC) [Entitic mass] 30 pg 26.0 - 34.0 pg [facility] MCHC (RBC) [Mass/Vol] 33.4 g/dL 30.5 - 36.0 g/dL [facility] MCV (RBC) [Entitic vol] 89.7 fL 80.0 - 100.0 fL [facility] RBC (Bld) [#/Vol] 4.74 10*6/uL 4.20 - 6.0 0 m/uL [facility] Specimen Type: BLOOD SPECIMEN Ordering Facility: [facility] Address: [address] [place] [address] Original [facility]ing Provider[facility] CN HNO ID: [id number] Author: LELAND DANG MD Service: General Internal [...] with the resident. I have performed the [id number] and relevant services for a total of >30 minutes. Signature: Leland Dang MD Date: 06/26/2024 Time: 5:27 PM -- DISCHARGE SUMMARY PATIENT NAME: Bhumika Umana ADMISSION DATE: 06/24/2024 DISCHARGE DATE: 06/26/2024 ATTENDING PHYSICIAN: Leland Dang* Code Status: Full Code PCP: Cecy Hernandez CNP, EXCHANGE SPECIALIST Highest Readmission Risk Score: 10 The 30 [...] the wall. 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 [...] his profound arm weakness and weak hand manager corporate communications. During hospitalization, neurology was consulted and cervical [...] Anti-CCP 01/2023: (more content not included)... [facility] Comprehensive metabolic 2000 panelon 06-26-2024 Albumin [Mass/Vol] 4.2 g/dL Normal 3.9-4.9 [facility] Comment on above: Order Comment: Deborah finley Type: BLOOD SPECIMENOrdering Facility: [facility] Address: [address] [place] [address] Performed By: #### 2 885-2, 78735-0, 2283-8, 98192-6 ####[facility] [id number] [place] [address] [id number] [place] ALP [Catalytic activity/Vol] 72 U/L Normal 38-113 [facility] Comment on above: Order Comment: Joeli malia Type: BLOOD SPECIMENOrdering Facility: [facility] Address: [address] [place] [address] Performed By: #### 2 885-2, 90221-8, 2283-8, 01045-5 ####[facility] [id number] [place] [address] [place] ALT [Catalytic activity/Vol] 24 U/L Normal 10-54 [facility] Comment on above: Order Comment: Speci men Type: BLOOD SPECIMENOrdering Facility: [facility] Address: [address] [place] [address] Performed By: #### 2 885-2, 75516-8, 2284-8, 18057-6 ####[facility]IA [id number] [place] [address] [place] Anion gap [Moles/Vol] 10 mmol/L Normal 8-15 [facility] Comment on above: Order Comment: Speci men Type: BLOOD SPECIMENOrdering Facility: [facility] Address: [address] [place] [address] Performed By: #### 2 885-2, 80865-2, 2283-8, 56316-9 ####[facility] [id number] [place] [address] [place] AST [Catalytic activity/Vol] 19 U/L Normal 14-40 [facility] Comment on above: Order Comment: Speci men Type: BLOOD SPECIMENOrdering Facility: [facility] Address: [address] [place] [address] Performed By: #### 2 885-2, 34623-4, 2283-8, 45940-6 ####[facility] [id number] [place] [address] [place] Bilirubin [Mass/Vol] 0.6 mg/dL Normal 0.2-1.3 [facility] Comment on above: Order Comment: Speci men Type: BLOOD SPECIMENOrdering Facility: [facility] Address: [address] [place] [address] Performed By: #### 2 885-2, 52552-4, 2284-8, 43852-4 ####[facility]CLIA [id number] [address] [place] [address] [place] Calcium [Mass/Vol] 9.3 mg/dL Normal 8.5-10.2 [facility] Comment on above: Order Comment: Speci men Type: BLOOD SPECIMENOrdering Facility: [facility] Address: [address] [place] [address] Performed By: #### 2 885-2, 87852-8, 228-8, 83763-1 ####[facility] [id number] [place] [address] [place] Chloride [Moles/Vol] 104 mmol/L Normal 98-107 [facility] Comment on above: Order Comment: Speci men Type: BLOOD SPECIMENOrdering Facility: [facility] Address: [address] [place] [address] Performed By: #### 2 885-2, 36229-2, 2283-8, 72966-7 ####[facility] [id number] [place] [address] [place] CO2 [Moles/Vol] 27 mmol/L Normal 22-30 [facility] Comment on above: Order Comment: Speci men Type: BLOOD SPECIMENOrdering Facility: [facility] Address: [address] [place] [address] Performed By: #### 2 885-2, 95317-8, 2283-8, 44330-5 ####[facility] [id number] [address] [address] [place] Creatinine [Mass/Vol] 0.65 mg/dL Low 0.73-1.22 [facility] Comment on above: Order Comment: Speci men Type: BLOOD SPECIMENOrdering Facility: [facility] Address: [address] [place] [address] Performed By: #### 2 885-2, 82839-8, 228-8, 50126-5 ####[facility] [id number] [address] [place] Creatinine and Glomerular filtration rate.predicted panel (S/P/Bld) 118 mL/min/1.73m??? Normal >=60 [facility] Comment on above: Order Comment: Deborah finley Type: BLOOD SPECIMENOrdering Facility: [facility] Address: [address] [place] [address] Result Comment: Alexa mated Glomerular Filtration Rate [...] actual GFR. Performed By: #### 2 885-2, 39706-6, 2283-8, 43795-4 ####[facility]IA [id number] [place] [address] [place] Glucose [Mass/Vol] 94 mg/dL Normal 74-99 [facility] Comment on above: Order Comment: Deborah finley Type: BLOOD SPECIMENOrdering Facility: [facility] Address: [address] [place] [address] Result Comment: The [place] [employer] (ADA) provides guidance for cutoff [...] Standards of Medical Care in Diabetes 2016, [place] [employer]. Diabetes Care. 2016.39(Suppl 1). Performed By: #### 2 885-2, 21282-9, 2283-8, 04918-5 ####[facility] [id number] [address] [address] [place] Potassium [Moles/Vol] 3.9 mmol/L Normal 3.7-5.1 [facility] Comment on above: Order Comment: Speci men Type: BLOOD SPECIMENOrdering Facility: [facility] Address: [address] [place] [address] Performed By: #### 2 885-2, 85837-9, 2283-8, 38663-8 ####[facility]IA [id number] [address] [address] [place] Sodium [Moles/Vol] 141 mmol/L Normal 136-144 [facility] Comment on above: Order Comment: Speci men Type: BLOOD SPECIMENOrdering Facility: [facility] Address: [address] [place], [place] [address] Performed By: #### 2 885-2, 66497-8, 2283-8, ####[facility] [id number] [place] [id number] [place] Urea nitrogen [Mass/Vol] 10 mg/dL Normal 9-24 [facility] Comment on above: Order Comment: Speci men Type: BLOOD SPECIMENOrdering Facility: [facility] Address: [address] [place] [address] Performed By: #### 2 885-2, 80556-7, 2283-8, 33165-5 ####[facility] [id number] [address] [address] [place] Folate SerPl-mCncon 10-30-20 24 Folate [Mass/Vol] 11.6 ng/mL Normal >4.[address] [facility] Comment on above: Order Comment: Speci men Type: BLOOD SPECIMENOrdering Facility: [facility] Address: [address] [place] [address] Performed By: #### 2 885-2, 00786-5, 2283-8, 98706-1 ####[facility] [id number] [place] [id number] [place] MRI CERVICAL SPINE [...] vertebrae with counting from the craniocervical junction. Broke Man: PSCB Transcribe Date/Time: Jun 26 2024 7:33A Dictated by : SUDHIR PUENTE MD This examination was interpreted and the report reviewed and electronically signed by: BRIDGET LIND MD on Jun 26 2024 8:09AM EST [id number] [facility] Magnesium SerPl-mCncon 06-26 Magnesium [Mass/Vol] 2.0 mg/dL Normal 1.7-2.3 [facility] Comment on above: Order Comment: Speci men Type: BLOOD SPECIMENOrdering Facility: [facility] Address: [address] [place] [address] Performed By: #### 2 885-2, 79869-9, 2284-8, 96984-6 ####[facility] [id number] [address] [place] NURSING PROGon 06-26-2024 NURSING PROG HNO ID: [id number] Author: SUSANA CAST RN Service: Radiology Author [...] II IV SITE: Inpatient - refer to [facility] documentation IV SITE APPEARANCE: Clean,Dry and Intact SIGNATURE: Susana Cast RN PATIENT NAME: Bhumika Umana DATE: June 26, 2024 TIME: 6:38 AM [facility] PROTEIN ELECTROPHORESIS SERU M WITH ELIN (P)on 06-26-2024 Albumin [Mass/Vol] 3.83 g/dL Normal 3.43-5.41 [facility] Comment on above: Order Comment: Speci men Type: BLOOD SPECIMEN [facility] Address: [address] [place] [address] Performed By: #### L [id number] #### [facility] CLIA [id number] [address] [place] [address] [place] Alpha 1 globulin Elph [Mass/Vol] 0.26 g/dL Normal 0.18-0.43 [facility] Comment on above: Order Comment: Speci men Type: BLOOD SPECIMEN [facility] Address: [address] [place] [address] Performed By: #### L [id number] #### [facility] CLIA [id number] [address] [place] [address] [place] Alpha 2 globulin Elph [Mass/Vol] 0.62 g/dL Normal 0.42-0.98 [facility] Comment on above: Order Comment: Speci men Type: BLOOD SPECIMEN [facility] Address: [address] [place] [address] Performed By: #### L [id number] #### [facility] CLIA [id number] [address] [place] [address] [place] Beta globulin Elph [Mass/Vol] 0.76 g/dL Normal 0.61-1.17 [facility] Comment on above: Order Comment: Speci men Type: BLOOD SPECIMEN [facility] Address: [address] [place] [address] Performed By: #### L [id number] #### [facility] CLIA [id number] [address] [place] [address] [place] COMMENT (SERUM PROT ELECTRO) Monoclonal Protein analysis (immunofixation) is not indicated. [facility] Comment on above: Order Comment: Speci men Type: BLOOD SPECIMEN [facility] Address: [address] [place] [address] Performed By: #### L [id number] #### [facility] CLIA [id number] [address] [place] [address] [place] Gamma globulin Elph [Mass/Vol] 0.62 g/dL Normal 0.53-1.51 [facility] Comment on above: Order Comment: Speci men Type: BLOOD SPECIMEN [facility] Address: [address] [place] [address] Performed By: #### L [id number] #### [facility] CLIA [id number] [address] [place] [address] [place] M-PROTEIN LOCATION Normal [facility] Comment on above: Order Comment: Speci men Type: BLOOD SPECIMEN [facility] Address: [address] [place] [address] Result Comment: Not Applicable. Performed By: #### L [id number] #### [facility] CLIA [id number] [address] [place] [address] [place] Protein Fractions [Interp] No definitive M protein is identified on protein electrophoresis. Normal No definitive M protein is identified on protein electrophore sis. [facility] Comment on above: Order Comment: Speci men Type: BLOOD SPECIMEN [facility] Address: [address] [place] [address] Performed By: #### L [id number] #### [facility] CLIA [id number] [address] [place] [address] [place] Protein.monoclonal Elph [Mass/Vol] 0.00 g/dL Normal <=0.00 [facility] Comment on above: Order Comment: Speci men Type: BLOOD SPECIMEN [facility] Address: [address] [place] [address] Performed By: #### L [id number] #### [facility] CLIA [id number] [address] [place] [address] [place] SPE STAFF REVIEW Reviewed by Merritt Villafuerte MD, Ph.D ([id number]) [facility] Comment on above: Order Comment: Speci men Type: BLOOD SPECIMEN [facility] Address: [address] [place] [address] Performed By: #### L [id number] #### [facility] CLIA [id number] [address] [place] [address] [place] Prot SerPl-mCncon 06-26-2024 Protein [Mass/Vol] 6.1 g/dL Low 6.3-8.0 [facility] Comment on above: Order Comment: Speci men Type: BLOOD SPECIMENOrdering Facility: [facility] Address: [address] [place] [address] Performed By: #### 2 885-2, 40585-5, 2284-8, 79040-3 ####[facility] [id number] [address] [place] THERAPY NTon 06-26-2024 THERAPY NT HNO ID: [id number] Author: SANTA COFFEY, PT, DPT Service: Physical Therapy Author Type: Physical Therapist Type: Therapy (PT/OT/Speech/Resp) Filed: 06/26/2024 14:51 Note Text: Physical Therapy Treatment Summary SERVICE DATE: 06/26/2024 SERVICE TIME: 1425 to 1448 ROOM: [place] [address] PT 6 Clicks Score: 24 DISCHARGE RECOMMENDATIONS [...] Muscle Weakness (generalized) TREATMENT INTERVENTIONS Therapeutic Activity (87293) Timed Code Treatment (minutes): 23 Skilled Treatment [...] Functional Mobility Training, Balance Training SIGNATURE: Santa Coffey PT, DPT PATIENT NAME: Bhumika Umana DATE: June 26, 2024 TIME: 2:51 PM [facility] THERAPY NT HNO ID: [id number] Author: DEIRDRE MORGAN, OTR/L, OTD Service: Occupational Therapy Author Type: Occupational Therapist Type: Therapy (PT/OT/Speech/Resp) Filed: 06/26/2024 11:17 Note Text: Occupational Therapy Evaluation Summary SERVICE DATE: 06/26/2024 SERVICE TIME: 0839 to 1010 ROOM: [place] [address] OT 6 Clicks Score: 16 DISCHARGE RECOMMENDATIONS [...] Muscle Weakness (generalized) TREATMENT INTERVENTIONS Evaluation, Self Snf Management (40229), Cognitive Training (12913 and 69417) Timed Code Treatment (minutes): 76 Skilled Treatment Time (minutes): 91 TRAINING AND EDUCATION PROVIDED Activity Adaptation/Compensatory Strategies, Assistive Device Use, Adaptive Equipment/DME, Benefits of In-Hospital Mobility, Command Following, Coping Skills/Resiliency, Discharge Planning, Energy Conservation, Functional Mobility Involving ADLs, Grooming Tasks, IADLs/Home Management, Identification of Systems of Support, Life Roles/Routines/Habits, Positioning, Role of Occupational Therapy, Sitting Balance to Improve [place] with ADLs/Self-Care, Splint Management, Standing Balance to Improve [place] with ADLs/Self-Care, Transfer - Sit to Stand, [...] needs identified to allow [facility] (more content not included)... [facility] VITAMIN B6/PYRIDOXINon 06-26 VITAMIN B6 32.1 nmol/L Normal 20.0-125.0 [facility] Comment on above: Order Comment: Speci men Type: BLOOD SPECIMEN [facility] Address: [address] [place] [address] Result Comment: INTE RPRETIVE INFORMATION: Vitamin B6 (Pyridoxal 5-Phosphate) Pyridoxal 5'-phosphate measured in a specimen collected following an 8-hour or overnight fast accurately indicates vitamin B6 nutritional status. Non-fasting specimen concentration reflects recent vitamin intake. This test was developed and its performance characteristics determined by [employer]. It has not been cleared or approved by the [place] Food and Drug Administration. This test was performed in a CLIA certified laboratory and is intended for clinical purposes. Performed By: [facility] [facility] [address] [place] [address] Tower Watchman: Leonardo Topete MD, PhD CLIA Number: [id number] Performed By: #### L [id number] #### [facility] CLIA [id number] [address] [place] [address] [place] CASE MANAGEMon 06-25-2024 CASE MANAGEM HNO ID: [id number] Author: MOE ARANGO LISW Service: ? Author Type: Flight Surveyor Type: Care Mgt Progress Note Filed: 06/25/2024 14:25 Note Text: CARE MANAGEMENT/ SOCIAL WORK HIGH RISK PSYCHOSOCIAL ASSESSMENT SERVICE DATE: June 25, 2024 SERVICE TIME: 2:05 PM Reason for Admission: Weakness [R53.1] Reason for Social Work Contact: Housing Time Spent (minutes): 30 Information Obtained From: Patient Budget Analyst Chart Patient Granted Permission to Speak to Others in the Room: Not Applicable SOCIAL HISTORY Marital Status: Single Children (Including Quality of Relationship): Unknown Gender Identity: Male Abuse History: Not Applicable Support System: Family: Brother Status (Including History of Combat Experience): None PSYCHIATRIC HISTORY: Diagnosis: Depression Family Psychiatric History Unknown Substance Use and Treatment History: Patient/Training Professional Denies DISCHARGE RECOMMENDATIONS: Home Patient/Training Professional Agreeable With Discharge Recommendations At This Time? Yes OBSTACLES TO TREATMENT/POST-DISCHARGECH ALLENGES: Homelessness Limited Support System SW consulted for housing needs. Per team, pt temporary living with brother and requested assistance for post-discharge planning. SW met with pt at bedside to introduce self and explain role. Pt reported he was living in a house owned by his parents for 20 years, but was recently evicted after his sister became the etl bi developer earlier this year. Pt reported his father [...] office for assistance. Per EMR, pt with [place]. SW encouraged pt to contact his insurance to request a case management social worker for additional community support. Pt will plan to brother's home at time of discharge. Pt denied any other questions or concerns at this time. Should any other psychosocial needs arise, please re-consult [facility]. SIGNATURE: YAW Vincent PATIENT NAME: Bhumika Umana DATE: June 25, 2024 TIME: 2:05 PM CONTACT #: [phone] [facility] CBC panel Auto (Bld)on 06-25 Erythrocyte distribution width (RBC) [Ratio] 12.3 % Normal 11.5-15.0 [facility] Comment on above: Order Comment: Speci men Type: BLOOD SPECIMEN [facility] Address: [address] [place] [address] Performed By: #### L [id number] #### [facility] CLIA [id number] [address] [place] [address] [place] Hematocrit (Bld) [Volume fraction] 41.9 % Normal 39.0-51.0 [facility] Comment on above: Order Comment: Speci men Type: BLOOD SPECIMEN [facility]: [facility] Address: [address] [place] [address] Performed By: #### L [id number] #### [facility] CLIA [id number] [address] [place] [address] [place] Hemoglobin (Bld) [Mass/Vol] 13.8 g/dL Normal 13.0-17.0 [facility] Comment on above: Order Comment: Speci men Type: BLOOD SPECIMEN [facility] Address: [address] [place] [address] Performed By: #### L [id number] #### [facility] CLIA [id number] [address] [place] [address] [place] MCH (RBC) [Entitic mass] 29.9 pg Normal 26.0-34.0 [facility] Comment on above: Order Comment: Speci men Type: BLOOD SPECIMEN [facility]: [facility] Address: [address] [place] [address] Performed By: #### L [id number] #### [facility] CLIA [id number] [address] [place] [address] [place] MCHC (RBC) [Mass/Vol] 32.9 g/dL Normal 30.5-36.0 [facility] Comment on above: Order Comment: Speci men Type: BLOOD SPECIMEN [facility] Address: [address] [place] [address] Performed By: #### L [id number] #### [facility] CLIA [id number] [address] [place] [address] [place] MCV (RBC) [Entitic vol] 90.7 fL Normal 80.0-100.0 [facility] Comment on above: Order Comment: Speci men Type: BLOOD SPECIMEN [facility]: [facility] Address: [address] [place] [address] Performed By: #### L [id number] #### [facility] CLIA [id number] [address] [place] [address] [place] Nucleated RBC (Bld) [#/Vol] 10*3/uL Normal <0.01 [facility] Comment on above: Order Comment: Speci men Type: BLOOD SPECIMEN [facility] Address: [address] [place] [address] Performed By: #### L [id number] #### [facility] CLIA [id number] [address] [place] [address] [place] Platelet mean volume (Bld) [Entitic vol] 9.3 fL Normal 9.0-12.7 [facility] Comment on above: Order Comment: Speci men Type: BLOOD SPECIMEN [facility]: [facility] Address: [address] [place] [address] Performed By: #### L [id number] #### [facility] CLIA [id number] [address] [place] [address] [place] Platelets (Bld) [#/Vol] 290 10*3/uL Normal 150-400 [facility] Comment on above: Order Comment: Speci men Type: BLOOD SPECIMEN [facility]: [facility] Address: [address] [place] [address] Performed By: #### L [id number] #### [facility] CLIA [id number] [address] [place] [address] [place] RBC (Bld) [#/Vol] 4.62 10*6/uL Normal 4.20-6.00 [facility] Comment on above: Order Comment: Speci men Type: BLOOD SPECIMEN Order[facility]: [facility] Address: [address] [place] [address] Performed By: #### L [id number] #### [facility] CLIA [id number] [address] [place] [address] [place] WBC (Bld) [#/Vol] 8.92 10*3/uL Normal 3.70-11.00 [facility] Comment on above: Order Comment: Speci men Type: BLOOD SPECIMEN Ordering [facility]: [facility] Address: [address] [place] [address] Performed By: #### L [id number] #### [facility] CLIA [id number] [address] [place] [address] [place] [facility] RAVINDER BY IFA WITH REFLEXon 06-25-2024 Interpretation and review of laboratory results Abnormal [facility] Nuclear Ab pattern (S) [Interp] Nuclear fine speckled [facility] Nuclear Ab Ql (S) Positive Abnormal Negative [facility] Comment on above: Anti-nuclear antibod y test is used as an aid in diagnosis of systemic autoimmune diseases. Where positive and clinically warranted, follow-up using disease-specific testing is recommended. Low positive titers are not uncommon with advanced age, certain chronic infections, and malignancies among others. Test methodology: Indirect fluorescence immunoassay (IFA) using HEp-2 cells. 1:160 Specimen Type: BLOOD SPECIMEN Ordering Facility: [facility] Address: [address] [place] [address] Original Ordering Provider: DI SOSA [facility] VIT B12 SERPL-MCNCon Cobalamin (Vitamin B12) [Mass/Vol] 499 pg/mL 232 - 1245 pg/mL [facility] Specimen Type: BLOOD SPECIMEN Ordering Facility: [facility] Address: [address] [place] [address] Original Ordering Provider: LELAND DANG [facility] COPPER BLOODon 06-25-2024 Copper [Mass/Vol] 115 ug/dL Normal 70-[address] [facility] Comment on above: Order Comment: Speci men Type: BLOOD SPECIMENOrdering Facility: [facility] Address: [address] [place] [address] Result Comment: This test was developed, and its performance characteristics determined by the [facility] Department of Pathology and Laboratory Medicine. It has not been cleared or approved by the FDA. The [facility] Department of Pathology and Laboratory Medicine is regulated under CLIA as qualified to perform high-complexity testing. This test is used for clinical purposes. It should not be regarded as investigational or for research. Performed By: #### C CISCO, 5763-8 ####[facility] [id number] [place] [address] [place] Comprehensive metabolic 2000 panelon 06-25-2024 Albumin [Mass/Vol] 3.9 g/dL Normal 3.9-4.9 [facility] Comment on above: Order Comment: Speci men Type: BLOOD SPECIMENOrdering Facility: [facility] Address: [address] [place] [id number] Performed By: #### 1 9123-9, 2132-04, ####[facility] LABCLIA [id number] [place] [address] [place] ALP [Catalytic activity/Vol] 70 U/L Normal 38-113 [facility] Comment on above: Order Comment: Speci men Type: BLOOD SPECIMENOrdering Facility: [facility] Address: [address] [place] [address] Performed By: #### 1 9123-9, 2132-04, ####[facility] LABCLIA [id number] [place] [address] [place] ALT [Catalytic activity/Vol] 24 U/L Normal 10-54 [facility] Comment on above: Order Comment: Speci men Type: BLOOD SPECIMENOrdering Facility: [facility] Address: [address] [place] [address] Performed By: #### 1 9123-9, 2132-04, ####[facility] LABIA [id number] [place] [address] [place] Anion gap [Moles/Vol] 12 mmol/L Normal 8-15 [facility] Comment on above: Order Comment: Speci men Type: BLOOD SPECIMENOrdering Facility: [facility] Address: [address] [place] [address] Performed By: #### 1 9123-9, 2132-04, ####[facility] LABIA [id number] [place] [address] [place] AST [Catalytic activity/Vol] 15 U/L Normal 14-40 [facility] Comment on above: Order Comment: Speci men Type: BLOOD SPECIMENOrdering Facility: [facility] Address: [address] [place], [place] [address] Performed By: #### 1 239, 2132-04, ####[facility] LABCLIA [id number] [address] [address] [place] Bilirubin [Mass/Vol] 0.7 mg/dL Normal 0.2-1.3 [facility] Comment on above: Order Comment: Speci men Type: BLOOD SPECIMENOrdering Facility: [facility] Address: [address] [place] [address] Performed By: #### 1 9, 2132-04, ####[facility]CLIA [id number] [place] [address] [place] Calcium [Mass/Vol] 9.1 mg/dL Normal 8.5-10.2 [facility] Comment on above: Order Comment: Speci men Type: BLOOD SPECIMENOrdering Facility: [facility] Address: [address] [place] [address] Performed By: #### 1 9, 2132-04, ####[facility]CLIA [id number] [place] [address] [place] Chloride [Moles/Vol] 105 mmol/L Normal 98-107 [facility] Comment on above: Order Comment: Speci men Type: BLOOD SPECIMENOrdering Facility: [facility] Address: [address] [place] [address] Performed By: #### 1 9, 2132-04, ####[facility]CLIA [id number] [address] [address] [place] CO2 [Moles/Vol] 24 mmol/L Normal 22-30 [facility] Comment on above: Order Comment: Speci men Type: BLOOD SPECIMENOrdering Facility: [facility] Address: [address] [place] [address] Performed By: #### 1 239, 2132-04, ####[facility]CLIA [id number] [address] [address] [place] Creatinine [Mass/Vol] 0.62 mg/dL Low 0.73-1.22 [facility] Comment on above: Order Comment: Deborah finley Type: BLOOD SPECIMENOrdering Facility: [facility] Address: [address] [place] [address] Performed By: #### 1 239, 2132-04, ####[facility] LABIA [id number] [place] [address] [place] Creatinine and Glomerular filtration rate.predicted panel (S/P/Bld) 119 mL/min/1.73m??? Normal >=60 [facility] Comment on above: Order Comment: Deborah finley Type: BLOOD SPECIMENOrdering Facility: [facility] Address: [address] [place] [address] Result Comment: Alexa mated Glomerular Filtration Rate [...] reflect actual GFR. Performed By: #### 1 239, 2132-04, ####[facility] LABIA [id number] [place] [id number] [place] Glucose [Mass/Vol] 88 mg/dL Normal 74-99 [facility] Comment on above: Order Comment: Deborah finley Type: BLOOD SPECIMENOrdering Facility: [facility] Address: [address] [place] [address] Result Comment: The [place] [employer] (ADA) provides guidance for cutoff [...] Standards of Medical Care in Diabetes 2016, [place] [employer]. Diabetes Care. 2016.39(Suppl 1). Performed By: #### 1 9, 2132-04, ####[facility]CLIA [id number] [address] [address] [place] Potassium [Moles/Vol] 3.6 mmol/L Low 3.7-5.1 [facility] Comment on above: Order Comment: Speci men Type: BLOOD SPECIMENOrdering Facility: [facility] Address: [address] [place] [address] Performed By: #### 1 9123-04, 2132-04, ####[facility]CLIA [id number] [place] [address] [place] Protein [Mass/Vol] 6.4 g/dL Normal 6.3-8.0 [facility] Comment on above: Order Comment: Speci men Type: BLOOD SPECIMENOrdering Facility: [facility] Address: [address] [place] [address] Performed By: #### 1 9123-04, 2132-04, ####[facility]CLIA [id number] [place] [address] [place] Sodium [Moles/Vol] 141 mmol/L Normal 136-144 [facility] Comment on above: Order Comment: Speci men Type: BLOOD SPECIMENOrdering Facility: [facility] Address: [address] [place] [address] Performed By: #### 1 9123-04, 2132-04, ####[facility] LABCLIA [id number] [place] [address] [place] Urea nitrogen [Mass/Vol] 8 mg/dL Low 9-24 [facility] Comment on above: Order Comment: Speci men Type: BLOOD SPECIMENOrdering Facility: [facility] Address: [address] [place] [address] Performed By: #### 1 9123-9, 2132-9, 48149-7 ####[facility]CLIA [id number] [place] [address] [place] HIV 1+2 Ab IA Qlon 4 HIV 1 and 2 Ab IA.rapid Nom (S/P/Bld) Normal [facility] Comment on above: Order Comment: Speci men Type: BLOOD SPECIMEN [facility] Address: [address] [place] [address] Result Comment: Test not indicated. Performed By: #### L [id number] #### [facility] CLIA [id number] [address] [place] [address] [place] HIV 1+2 Ab+HIV1 p24 Ag IA Ql Non-Reactive Normal Nonreactive [facility] Comment on above: Order Comment: Speci men Type: BLOOD SPECIMEN [facility] Address: [address] [place] [address] Performed By: #### L [id number] #### [facility] CLIA [id number] [address] [place] [address] [place] HIV immunoassay testing algorithm interpretation (S/P/Bld) [Interp] Normal [facility] Comment on above: Order Comment: Speci men Type: BLOOD SPECIMEN [facility] Address: [address] [place] [address] Result Comment: No e vidence of HIV-1 or HIV-2 infection. Should recent infection be suspected, repeat testing may be considered 2-3 weeks after this draw. [place] Rev. Code 3701.243(E): This information has been [...] results or diagnoses. Performed By: #### L [id number] #### [facility] CLIA [id number] [address] [place] [address] [place] Magnesium SerPl-mCncon 06-25 Magnesium [Mass/Vol] 2.0 mg/dL Normal 1.7-2.3 [facility] Comment on above: Order Comment: Speci men Type: BLOOD SPECIMENOrdering Facility: [facility] Address: [address] [place] [address] Performed By: #### 1 9123-9, 2132-9, 16612-6 ####[facility]CLIA [id number] [address] Methylmalonate SerPl-sCncon 06-25-2024 Methylmalonate [Moles/Vol] 0.25 umol/L Normal <=0.40 [facility] Comment on above: Order Comment: Speci men Type: BLOOD SPECIMEN [facility] Address: [address] [place] [address] Result Comment: This test was developed, and its performance characteristics determined by the [facility] Department of Pathology and Laboratory Medicine. It has not been cleared or approved by the FDA. The [facility] Department of Pathology and Laboratory Medicine is regulated under CLIA as qualified to perform high-complexity testing. This test is used for clinical purposes. It should not be regarded as investigational or for research. Performed By: #### 1 3964-2 #### [facility] CLIA [id number] [address] [place] [address] [place] NUTRITIONon 06-25-2024 NUTRITION HNO ID: [id number] Author: OH [address]ON [address] Service: Nutrition Therapy [...] the wall. 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 [...] Weight Type: Admit weight Estimated kilocalorie needs: 4281-3910 Calorie Calculation Method: 10-15 kcals/kg Estimated protein [...] weight change d/t limited weight hx per [facility] records Weight Change: Unable to determine Physical [...] June 25, 2024 TIME: 1:00 PM Normal [facility] THERAPY NTon 06-25-2024 THERAPY NT HNO ID: [id number] Author: SANTA COFFEY, PT, DPT Service: Physical Therapy Author Type: Physical Therapist Type: Therapy (PT/OT/Speech/Resp) Filed: 06/25/2024 08:37 Note Text: Physical Therapy Evaluation Summary SERVICE DATE: 06/25/2024 SERVICE TIME: 739 to 08 ROOM: [place] [address] PT 6 Clicks Score: 24 DISCHARGE RECOMMENDATIONS [...] Weakness (generalized) TREATMENT INTERVENTIONS Evaluation, Therapeutic Activity (45256), Therapeutic Exercise (53412) Timed Code Treatment (minutes): 23 Skilled Treatment [...] June 25, 2024 TIME: 8:37 AM Normal [facility] VITAMIN B1 (THIAMINE), WHOLE BLOODon 06-25-2024 Thiamine (Bld) [Moles/Vol] 199.2 nmol/L Normal 84.3-213.3 [facility] Comment on above: Order Comment: Speci men Type: BLOOD SPECIMENOrdering Facility: [facility] Address: [address] [place] [address] Result Comment: This assay measures the concentration of thiamine diphosphate (TDP), the primary active form of vitamin B1. Approximately 90 percent of vitamin B1 present in whole blood is TDP. Thiamine and thiamine monophosphate, which comprise the remaining 10 percent, are not measured. This test was developed, and its performance characteristics determined by the [facility] Department of Pathology and Laboratory Medicine. It has not been cleared or approved by the FDA. The [facility] Department of Pathology and Laboratory Medicine is regulated under CLIA as qualified to perform high-complexity testing. This test is used for clinical purposes. It should not be regarded as investigational or for research. Performed By: #### B 1WB ####[facility] LABCLIA [id number] [facility] [id number] [place] [address] [place] [facility] 024 Cobalamin (Vitamin B12) [Mass/Vol] 499 pg/mL Normal 232-1245 [facility] Comment on above: Order Comment: Speci men Type: BLOOD SPECIMENOrdering Facility: [facility] Address: [address] [place] [address] Performed By: #### 1 9123-9, 2132-9, 87498-4 ####[facility] LABIA [id number] [place] [address] [place] Zinc SerPl-mCncon 06-25-2024 Zinc [Mass/Vol] 66 ug/dL Normal 60-120 [facility] Comment on above: Order Comment: Speci men Type: BLOOD SPECIMENOrdering Facility: [facility] Address: [address] [place] [address] Result Comment: This test was developed, and its performance characteristics determined by the [facility] Department of Pathology and Laboratory Medicine. It has not been cleared or approved by the FDA. The [facility] Department of Pathology and Laboratory Medicine is regulated under CLIA as qualified to perform high-complexity testing. This test is used for clinical purposes. It should not be regarded as investigational or for research. Performed By: #### C OPMAGALIE, 5763-8 ####[facility] [id number] [place] [address] [place] ACETYLCHOLINE REC BINDING AB on 06-24-2024 ACETYLCHOLINE BINDING, QUAL Negative Normal Negative [facility] Comment on above: Order Comment: Speci men Type: BLOOD SPECIMENOrdering Facility: [facility] Address: [address] [place] [address] Result Comment: Anti -acetylcholine receptor binding antibody test is used as an aid in diagnosis of myasthenia gravis. A negative result cannot exclude myasthenia gravis. Clinical correlation is required. Performed By: #### A CHRAB ####[facility] LABIA [id number] [place] [address] [place] Acetylcholine receptor binding Ab (S) [Moles/Vol] <0.02 Normal <0.21 [facility] Comment on above: Order Comment: Speci men Type: BLOOD SPECIMENOrdering Facility: [facility] Address: [address] [place] [address] Performed By: #### A CHRAB ####[facility] LABIA [id number] [place] [address] [place] RAVINDER BY IFA WITH REFLEXon Nuclear Ab pattern (S) [Interp] Nuclear fine speckled Normal [facility] Comment on above: Order Comment: Speci men Type: BLOOD SPECIMENOrdering Facility: [facility] Address: [address] [place] [address] Performed By: #### 5 1775-5, 45865-5, 77873-7, 34912-3, 20265-9, 95782-5, 64089-8, ANAIFR, 04241-0, 44365-1 ####[facility] [id number] [place] [address] [place] Nuclear Ab Ql (S) Positive Abnormal Negative [facility] Comment on above: Order Comment: Speci men Type: BLOOD SPECIMENOrdering Facility: [facility] Address: [address] [place] [address] Result Comment: Anti -nuclear antibody test is used as an aid in diagnosis of systemic autoimmune diseases. Where positive and clinically warranted, follow-up using disease-specific testing is recommended. Low positive titers are not uncommon with advanced age, certain chronic infections, and malignancies among others. Test methodology: Indirect fluorescence immunoassay (IFA) using HEp-2 cells. 1:160 Performed By: #### 5 1775-5, 94740-9, 07623-1, 30081-5, 84511-8, 81903-8, 66851-2, ANAIFR, 38765-6, 02442-9 ####[facility] LABIA [id number] [place] [address] [place] C3 SerPl-mCncon 06-24-2024 Complement C3 [Mass/Vol] 154 mg/dL Normal 86-166 [facility] Comment on above: Order Comment: Speci men Type: BLOOD SPECIMENOrdering Facility: [facility] Address: [address] [place] [address] Performed By: #### 3 016-3, 4498-2, 2157-01, 1987-12, , , 4485-04 ####[facility] LABCLIA [id number] [address] [place] C4 SerPl-mCncon 06-24-2024 Complement C4 [Mass/Vol] 24 mg/dL Normal 13-46 [facility] Comment on above: Order Comment: Speci men Type: BLOOD SPECIMENOrdering Facility: [facility] Address: [address] [place] [address] Performed By: #### 3 016-3, 4498-2, 2157-01, 1987-12, , , 4485-04 ####[facility] LABCLIA [id number] [place] [address] [place] CBC W Auto Differential pane l (Bld)on 06-24-2024 Basophils (Bld) [#/Vol] 0.04 10*3/uL Normal <0.11 [facility] Comment on above: Order Comment: Speci men Type: BLOOD SPECIMENOrdering Facility: [facility] Address: [address] [place] [address] Performed By: #### 5 5454-3, 95797-9, 7 ####[facility] LABCLIA [id number] [place] [address] [place] Basophils/100 WBC (Bld) 0.5 % Normal [facility] Comment on above: Order Comment: Speci men Type: BLOOD SPECIMENOrdering Facility: [facility] Address: [address] [place] [address] Performed By: #### 5 5454-3, 59571-0, 4536-7 ####[facility] LABCLIA [id number] [place] [address] [place] Differential cell count method Nom (Bld) Auto Normal [facility] Comment on above: Order Comment: Speci men Type: BLOOD SPECIMENOrdering Facility: [facility] Address: [address] [place] [address] Performed By: #### 5 5454-3, 96233-9, 4536-7 ####[facility] LABCLIA [id number] [place] [address] [place] Eosinophils (Bld) [#/Vol] 0.17 10*3/uL Normal <0.46 [facility] Comment on above: Order Comment: Speci men Type: BLOOD SPECIMENOrdering Facility: [facility] Address: [address] [place] [address] Performed By: #### 5 5454-3, 06421-8, 4536-7 ####[facility] LABCLIA [id number] [place] [address] [place] Eosinophils/100 WBC (Bld) 2.0 % Normal [facility] Comment on above: Order Comment: Speci men Type: BLOOD SPECIMENOrdering Facility: [facility] Address: [address] [place] [address] Performed By: #### 5 5454-3, 48091-7, 7 ####[facility] LABCLIA [id number] [place] [address] [place] Erythrocyte distribution width (RBC) [Ratio] 12.3 % Normal 11.5-15.0 [facility] Comment on above: Order Comment: Speci men Type: BLOOD SPECIMENOrdering Facility: [facility] Address: [address] [place] [address] Performed By: #### 5 5454-3, 72970-2, 4536-7 ####[facility] LABCLIA [id number] [place] [address] [place] Hematocrit (Bld) [Volume fraction] 46.2 % Normal 39.0-51.0 [facility] Comment on above: Order Comment: Speci men Type: BLOOD SPECIMENOrdering Facility: [facility] Address: [address] [place] [address] Performed By: #### 5 5454-3, 94778-7, 4537-7 ####[facility] LABCLIA [id number] [place] [address] [place] Hemoglobin (Bld) [Mass/Vol] 15.2 g/dL Normal 13.0-17.0 [facility] Comment on above: Order Comment: Speci men Type: BLOOD SPECIMENOrdering Facility: [facility] Address: [address] [place] [address] Performed By: #### 5 5454-3, 36395-1, 4537-7 ####[facility] LABCLIA [id number] [place] [address] [place] Immature granulocytes (Bld) [#/Vol] 0.04 10*3/uL Normal <0.10 [facility] Comment on above: Order Comment: Speci men Type: BLOOD SPECIMENOrdering Facility: [facility] Address: [address] [place] [address] Performed By: #### 5 5454-3, 60066-1, 4537-7 ####[facility] LABCLIA [id number] [place] [address] [place] Immature granulocytes/100 WBC (Bld) 0.5 % Normal [facility] Comment on above: Order Comment: Speci men Type: BLOOD SPECIMENOrdering Facility: [facility] Address: [address] [place] [address] Performed By: #### 5 5454-3, 41306-7, 4537-7 ####[facility] LABCLIA [id number] [place] [address] [place] Lymphocytes (Bld) [#/Vol] 2.13 10*3/uL Normal 1.00-4.00 [facility] Comment on above: Order Comment: Speci men Type: BLOOD SPECIMENOrdering Facility: [facility] Address: [address] [place] [address] Performed By: #### 5 5454-3, 13745-0, 4537-7 ####[facility] LABIA [id number] [place] [address] [place] Lymphocytes/100 WBC (Bld) 25.0 % Normal [facility] Comment on above: Order Comment: Speci men Type: BLOOD SPECIMENOrdering Facility: [facility] Address: [address] [place] [address] Performed By: #### 5 5454-3, 20514-8, 4537-7 ####[facility] LABIA [id number] [place] [address] [place] MCH (RBC) [Entitic mass] 29.4 pg Normal 26.0-34.0 [facility] Comment on above: Order Comment: Speci men Type: BLOOD SPECIMENOrdering Facility: [facility] Address: [address] [place] [address] Performed By: #### 5 5454-3, 91843-5, 4537-7 ####[facility] LABIA [id number] [place] [address] [place] MCHC (RBC) [Mass/Vol] 32.9 g/dL Normal 30.5-36.0 [facility] Comment on above: Order Comment: Speci men Type: BLOOD SPECIMENOrdering Facility: [facility] Address: [address] [place] [address] Performed By: #### 5 5454-3, 74623-8, 4537-7 ####[facility] LABIA [id number] [place] [address] [place] MCV (RBC) [Entitic vol] 89.4 fL Normal 80.0-100.0 [facility] Comment on above: Order Comment: Speci men Type: BLOOD SPECIMENOrdering Facility: [facility] Address: [address] [place] [address] Performed By: #### 5 5454-3, 93081-5, 4537-7 ####[facility] LABIA [id number] [place] [address] [place] Monocytes (Bld) [#/Vol] 0.57 10*3/uL Normal <0.87 [facility] Comment on above: Order Comment: Speci men Type: BLOOD SPECIMENOrdering Facility: [facility] Address: [address] [place] [address] Performed By: #### 5 5454-3, 62831-2, 4537-7 ####[facility] LABIA [id number] [place] [address] [place] Monocytes/100 WBC (Bld) 6.7 % Normal [facility] Comment on above: Order Comment: Speci men Type: BLOOD SPECIMENOrdering Facility: [facility] Address: [address] [place] [address] Performed By: #### 5 5454-3, 96122-5, 4537-7 ####[facility] [id number] [place] [address] [place] Neutrophils (Bld) [#/Vol] 5.56 10*3/uL Normal 1.45-7.50 [facility] Comment on above: Order Comment: Speci men Type: BLOOD SPECIMENOrdering Facility: [facility] Address: [address] [place] [address] Performed By: #### 5 5454-3, 00395-1, 4537-7 ####[facility] LABIA [id number] [place] [address] [place] Neutrophils/100 WBC (Bld) 65.3 % Normal [facility] Comment on above: Order Comment: Speci men Type: BLOOD SPECIMENOrdering Facility: [facility] Address: [address] [place] [address] Performed By: #### 5 5454-3, 60933-4, 4537-02 ####[facility] LABCLIA [id number] [place] [address] [place] Nucleated RBC (Bld) [#/Vol] 10*3/uL Normal <0.01 [facility] Comment on above: Order Comment: Speci men Type: BLOOD SPECIMENOrdering Facility: [facility] Address: [address] [place] [address] Performed By: #### 5 5454-3, 97318-6, 4537-02 ####[facility] LABCLIA [id number] [place] [address] [place] Nucleated RBC/100 WBC (Bld) [Ratio] 0.0 /100 WBC Normal [facility] Comment on above: Order Comment: Speci men Type: BLOOD SPECIMENOrdering Facility: [facility] Address: [address] [place] [address] Performed By: #### 5 5454-3, 20825-2, 4537-02 ####[facility]CLIA [id number] [place] [address] [place] Platelet mean volume (Bld) [Entitic vol] 9.1 fL Normal 9.0-12.7 [facility] Comment on above: Order Comment: Speci men Type: BLOOD SPECIMENOrdering Facility: [facility] Address: [address] [place] [address] Performed By: #### 5 5454-3, 18858-4, 4537-02 ####[facility] LABIA [id number] [place] [id number] [place] Platelets (Bld) [#/Vol] 333 10*3/uL Normal 150-400 [facility] Comment on above: Order Comment: Speci men Type: BLOOD SPECIMENOrdering Facility: [facility] Address: [address] [place] [address] Performed By: #### 5 5454-3, 22123-9, 7-7 ####[facility] LABCLIA [id number] [place] [address] [place] RBC (Bld) [#/Vol] 5.17 10*6/uL Normal 4.20-6.00 [facility] Comment on above: Order Comment: Speci men Type: BLOOD SPECIMENOrdering Facility: [facility] Address: [address] [place] [address] Performed By: #### 5 5454-3, 37549-0, 4537-7 ####[facility] LABCLIA [id number] [place] [address] [place] WBC (Bld) [#/Vol] 8.51 10*3/uL Normal 3.70-11.00 [facility] Comment on above: Order Comment: Speci men Type: BLOOD SPECIMENOrdering Facility: [facility] Address: [address] [place] [address] Performed By: #### 5 5454-3, 29434-3, 4537-7 ####[facility] LABIA [id number] [place] [address] [place] CK SerPl-cCncon 06-24-2024 CK [Catalytic activity/Vol] 43 U/L Low 51-298 [facility] Comment on above: Order Comment: Speci men Type: BLOOD SPECIMENOrdering Facility: [facility] Address: [address] [place] [address] Performed By: #### 1 1572-5, 6 ####[facility] LABIA [id number] [place] [address] [place] CK [Catalytic activity/Vol] 49 U/L Low 51-298 [facility] Comment on above: Order Comment: Speci men Type: BLOOD SPECIMENOrdering Facility: [facility] Address: [address] [place] [address] Performed By: #### 3 016-3, 4498-2, 2157-6, 1987-5, 84310-9, 36233-7, 4485-9 ####[facility] LABCLIA [id number] [place] [address] [place] CRP SerPl-mCncon 06-24-2024 CRP [Mass/Vol] 1.2 mg/dL High <0.9 [facility] Comment on above: Order Comment: Speci men Type: BLOOD SPECIMEN [facility] Address: [address] [place] [address] Performed By: #### L [id number] #### [facility] CLIA [id number] [address] [place] [address] [place] Centromere Ab IF Ql (S)on Centromere Ab Qn (S) <0.2 Normal <1.0 [facility] Comment on above: Order Comment: Speci malia Type: BLOOD SPECIMENOrdering Facility: [facility] Address: [address] [place] [address] Result Comment: Anti -centromere antibody is used as in aid in diagnosis of systemic sclerosis. Clinical correlation is required. Test Methodology: Multiplex flow immunoassay. Performed By: #### 5 1775-5, 09495-1, 49979-1, 79108-3, 16351-2, 82504-3, 07227-8, ANAIFR, 72229-4, 99646-6 ####[facility] LABCLIA [id number] [place] [address] [place] CENTROMERE AB QUAL Negative Normal Negative [facility] Comment on above: Order Comment: Speci men Type: BLOOD SPECIMENOrdering Facility: [facility] Address: [address] [place] [address] Performed By: #### 5 1775-5, 21539-5, 79821-0, 48406-3, 60833-5, 70079-6, 09933-3, ANAIFR, 04983-6, 51865-2 ####[facility] LABCLIA [id number] [place] [address] [place] Chromatin Ab Qnon 06-24-2024 CHROMATIN AB QUAL Negative Normal Negative [facility] Comment on above: Order Comment: Speci men Type: BLOOD SPECIMENOrdering Facility: [facility] Address: [address] [place] [address] Performed By: #### 5 1775-5, 23659-1, 81189-3, 64094-0, 96000-7, 15766-5, 46635-8, ANAIFR, 38651-0, 15726-7 ####[facility] LABCLIA [id number] [place] [address] [place] Chromatin Ab SerPl-aCncon Chromatin Ab Qn <0.2 Normal <1.0 [facility] Comment on above: Order Comment: Speci men Type: BLOOD SPECIMENOrdering Facility: [facility] Address: [address] [place] [address] Result Comment: Test Methodology: Multiplex flow immunoassay. Performed By: #### 5 1775-5, 88962-3, 21727-2, 99071-9, 69274-2, 69637-6, 33447-0, ANAIFR, 15935-2, 41466-5 ####[facility] LABCLIA [id number] [place] [id number] [place] [facility] Comprehensive metabolic 2000 panelon 06-24-2024 Albumin [Mass/Vol] 4.5 g/dL Normal 3.9-4.9 [facility] Comment on above: Order Comment: Speci men Type: BLOOD SPECIMENOrdering Facility: [facility] Address: [address] [place] [address] Performed By: #### 3 016-3, 4498-2, 2157-6, 1987-5, 48582-5, 16684-3, 4485-9 ####[facility] LABCLIA [id number] [place] [address] [place] ALP [Catalytic activity/Vol] 83 U/L Normal 38-113 [facility] Comment on above: Order Comment: Speci men Type: BLOOD SPECIMENOrdering Facility: [facility] Address: [address] [place], [place] [address] Performed By: #### 3 016-3, 4498-2, 2157-01, 1987-12, , , 4485-04 ####[facility] LABCLIA [id number] [place] [id number] [place] ALT [Catalytic activity/Vol] 27 U/L Normal 10-54 [facility] Comment on above: Order Comment: Speci men Type: BLOOD SPECIMENOrdering Facility: [facility] Address: [address] [place] [address] Performed By: #### 3 016-3, 4498-2, 2157-01, 1987-12, , , 4485-04 ####[facility] LABIA [id number] [place] [id number] [place] Anion gap [Moles/Vol] 13 mmol/L Normal 8-15 [facility] Comment on above: Order Comment: Speci men Type: BLOOD SPECIMENOrdering Facility: [facility] Address: [address] [place], [place] [address] Performed By: #### 3 016-3, 4498-2, 2157-01, 1987-12, , , 4485-04 ####[facility] LABIA [id number] [address] [address] [place] AST [Catalytic activity/Vol] 21 U/L Normal 14-40 [facility] Comment on above: Order Comment: Speci men Type: BLOOD SPECIMENOrdering Facility: [facility] Address: [address] [place], [place] [address] Performed By: #### 3 016-3, 4498-2, 2157-01, 1987-12, , , 4485-04 ####[facility] LABCLIA [id number] [address] [address] [place] Bilirubin [Mass/Vol] 0.7 mg/dL Normal 0.2-1.3 [facility] Comment on above: Order Comment: Speci men Type: BLOOD SPECIMENOrdering Facility: [facility] Address: [address] [place] [address] Performed By: #### 3 016-3, 4498-2, 2157-01, 1987-12, , , 4485-04 ####[facility] LABCLIA [id number] [place] [id number] [place] Calcium [Mass/Vol] 9.8 mg/dL Normal 8.5-10.2 [facility] Comment on above: Order Comment: Speci men Type: BLOOD SPECIMENOrdering Facility: [facility] Address: [address] [place] [address] Performed By: #### 3 016-3, 4498-2, 2157-01, 1987-12, , , 4485-04 ####[facility] LABCLIA [id number] [place] [id number] [place] Chloride [Moles/Vol] 106 mmol/L Normal 98-107 [facility] Comment on above: Order Comment: Speci men Type: BLOOD SPECIMENOrdering Facility: [facility] Address: [address] [place], [place] [address] Performed By: #### 3 016-3, 4498-2, 2157-01, 1987-12, , , 4485-04 ####[facility] LABCLIA [id number] [place] [id number] [place] CO2 [Moles/Vol] 23 mmol/L Normal 22-30 [facility] Comment on above: Order Comment: Speci men Type: BLOOD SPECIMENOrdering Facility: [facility] Address: [address] [place], [place] [address] Performed By: #### 3 016-3, 4498-2, 2157-01, 1987-12, , , 4485-04 ####[facility] LABCLIA [id number] [place] [id number] [place] Creatinine [Mass/Vol] 0.61 mg/dL Low 0.73-1.22 [facility] Comment on above: Order Comment: Speci men Type: BLOOD SPECIMENOrdering Facility: [facility] Address: [address] [place] [address] Performed By: #### 3 016-3, 4498-2, 2157-01, 1987-12, , , 4485-04 ####[facility] LABCLIA [id number] [place] [address] [place] Creatinine and Glomerular filtration rate.predicted panel (S/P/Bld) 120 mL/min/1.73m??? Normal >=60 [facility] Comment on above: Order Comment: Speci men Type: BLOOD SPECIMENOrdering Facility: [facility] Address: [address] [place], [place] [address] Result Comment: Alexa mated Glomerular Filtration Rate [...] 016-3, 4498-2, 2157-01, 1987-12, , , 4485-04 ####[facility] LABCLIA [id number] [place] [id number] [place] Glucose [Mass/Vol] 127 mg/dL High 74-99 [facility] Comment on above: Order Comment: Speci men Type: BLOOD SPECIMENOrdering Facility: [facility] Address: [address] [place], [place] [address] Result Comment: The [place] [employer] (ADA) provides guidance for cutoff [...] Standards of Medical Care in Diabetes 2016, [place] [employer]. Diabetes Care. 2016.39(Suppl 1). Performed By: #### 3 016-3, 4498-2, 2157-01, 1987-12, 77057-8, , 4485-04 ####[facility] LABCLIA [id number] [place] [id number] [place] Potassium [Moles/Vol] 3.8 mmol/L Normal 3.7-5.1 [facility] Comment on above: Order Comment: Deborah finley Type: BLOOD SPECIMENOrdering Facility: [facility] Address: [address] [place], [place] [address] Performed By: #### 3 016-3, 4498-2, 2157-01, 1987-12, , 72685-2, 4485-04 ####[facility] LABIA [id number] [address] [address] [place] Protein [Mass/Vol] 7.5 g/dL Normal 6.3-8.0 [facility] Comment on above: Order Comment: Deborah men Type: BLOOD SPECIMENOrdering Facility: [facility] Address: [address] [place], [place] [address] Performed By: #### 3 016-3, 4498-2, 2157-01, 1987-12, , , 4485-04 ####[facility] LABCLIA [id number] [address] [address] [place] Sodium [Moles/Vol] 142 mmol/L Normal 136-144 [facility] Comment on above: Order Comment: Speci men Type: BLOOD SPECIMENOrdering Facility: [facility] Address: [address] [place] [address] Performed By: #### 3 016-3, 4498-2, 2157-01, 1987-12, , , 4485-04 ####[facility] LABCLIA [id number] [place] [id number] [place] Urea nitrogen [Mass/Vol] 7 mg/dL Low 9-24 [facility] Comment on above: Order Comment: Speci men Type: BLOOD SPECIMENOrdering Facility: [facility] Address: [address] [place] [address] Performed By: #### 3 016-3, 4498-2, 2157-01, 1987-12, , , 4485-04 ####[facility] LABCLIA [id number] [place] [id number] [place] Cyclic citrullinated peptide IgG Qnon 06-24-2024 CCP ANTIBODY IGG QUALITATIVE Positive Abnormal Negative [facility] Comment on above: Order Comment: Speci men Type: BLOOD SPECIMEN [facility] Address: [address] [place] [address] Performed By: #### L [id number] #### [facility] CLIA [id number] [address] [place] [address] [place] DNA double strand Ab IA Qn ( S)on 06-24-2024 DNA ANTIBODY 81 IU/mL Normal <=200 [facility] Comment on above: Order Comment: Speci men Type: BLOOD SPECIMENOrdering Facility: [facility] Address: [address] [place] [address] Result Comment: Nega tive: <200 IU/mL Equivocal: 201-300 IU/mL Moderate Positive: 301-800 IU/mL Strong Positive: >801 IU/mL Performed By: #### 5 1775-5, 17719-4, 52478-7, 19947-2, 24124-2, 74208-1, 60834-2, ANAIFR, 59739-8, 61696-5 ####[facility] LABCLIA [id number] [address] [place] DNA ANTIBODY QUALITATIVE INTERPRETATION Negative Normal Negative [facility] Comment on above: Order Comment: Speci men Type: BLOOD SPECIMENOrdering Facility: [facility] Address: [address] [place] [address] Performed By: #### 5 1775-5, 74948-5, 97197-7, 54626-6, 59621-4, 15524-3, 45190-6, ANAIFR, 27745-4, 89868-6 ####[facility] LABCLIA [id number] [place] [id number] [place] ED NOTEon 06-24-2024 ED NOTE HNO ID: [id number] Author: WINTER WILSON RN Service: Emergency Medicine Author Type: Registered Nurse Type: ED Notes Filed: 06/24/2024 14:05 Note Text: Pt reports symptoms since December. Reports he brooks been having increasing numbness/weakness to all his extremities. [facility] ED PROV NOTEon 06-24-2024 ED PROV NOTE HNO ID: [id number] Author: DI SOSA DO DPM Service: Emergency Medicine Author Type: Physician [...] C2-3 and C3-4. He was seen in [facility] who obtained MRI brain and c-spine in [...] he seek a second opinion at [facility]'s rheumatology center. He was most recently seen by neurology in April who recommended repeating an EMG and to follow up in 3 months. 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 Of note, patient has been unable to [...] is intact (more content not included)... [facility] ED Triage Noteon 06-24-2024 ED Triage Note HNO ID: [id number] Author: DAVE PAGAN MD Service: Emergency Medicine [...] EMG normal. Patient was recently seen at [facility] and then transferred to [facility] 03/30/2024 for progressive bilateral distal upper extremity [...] Rate, Westergren SIGNATURE: Dave Pagan MD [facility] VIJAY Jo1 Ab Ser-aCncon 2023 Ivanna-1 extractable nuclear Ab Qn (S) <0.2 Normal <1.0 [facility] Comment on above: Order Comment: Speci men Type: BLOOD SPECIMENOrdering Facility: [facility] Address: [address] [place] [address] Performed By: #### 5 1775-5, 05074-8, 66268-4, 95072-2, 95214-2, 89988-6, 69497-4, ANAIFR, 54447-3, 91026-5 ####[facility] LABCLIA [id number] [place] [address] [place] VIJAY TURPENTINER Ab Ser-aCncon 2023 Ribonucleoprotein extractable nuclear Ab Qn (S) <0.2 Normal <1.0 [facility] Comment on above: Order Comment: Speci men Type: BLOOD SPECIMENOrdering Facility: [facility] Address: [address] [place] [address] Performed By: #### 5 1775-5, 86974-7, 73714-3, 22835-8, 82354-2, 76281-1, 24317-0, ANAIFR, 81774-1, 76293-5 ####[facility] LABCLIA [id number] [place] [address] [place] Ribonucleoprotein extractable nuclear Ab Qn (S) 0.5 AI Normal <1.0 [facility] Comment on above: Order Comment: Speci men Type: BLOOD SPECIMENOrdering Facility: [facility] Address: [address] [place] [address] Performed By: #### 5 1775-5, 32252-2, 99531-0, 99605-4, 62283-5, 54376-0, 09054-5, ANAIFR, 19808-1, 88216-2 ####[facility] LABCLIA [id number] [place] [address] [place] VIJAY SM IgG Ser-aCncon 2023 Kennedy extractable nuclear IgG Qn (S) <0.2 Normal <1.0 [facility] Comment on above: Order Comment: Speci men Type: BLOOD SPECIMENOrdering Facility: [facility] Address: [address] [place] [address] Performed By: #### 5 1775-5, 20189-8, 10075-0, 83041-0, 88289-5, 24426-8, 17430-8, ANAIFR, 49420-2, 49475-7 ####[facility] LABIA [id number] [place] [address] [place] VIJAY SS-A Ab Ser-aCncon 06-24 Sjogrens syndrome-A extractable nuclear Ab Qn (S) <0.2 Normal <1.0 [facility] Comment on above: Order Comment: Speci men Type: BLOOD SPECIMENOrdering Facility: [facility] Address: [address] [place] [address] Result Comment: Test Methodology: Multiplex flow immunoassay. Performed By: #### 5 1775-5, 83721-8, 80546-4, 02248-8, 23964-9, 65254-7, 94594-6, ANAIFR, 13213-0, 91422-0 ####[facility] LABIA [id number] [place] [address] [place] VIJAY SS-B Ab Ser-aCncon 06-24 Sjogrens syndrome-B extractable nuclear Ab Qn (S) <0.2 Normal <1.0 [facility] Comment on above: Order Comment: Speci men Type: BLOOD SPECIMENOrdering Facility: [facility] Address: [address] [place] [address] Result Comment: Anti -SSB (anti-La) antibody is used as an aid in diagnosis of a variety of systemic autoimmune diseases, especially for Sjogren's syndrome and systemic lupus erythematosus. Clinical correlation is required. Test Methodology: Multiplex flow immunoassay. Performed By: #### 5 1775-5, 29150-0, 12777-5, 92997-7, 65458-7, 05151-2, 35735-8, ANAIFR, 90381-3, 80927-0 ####[facility] LABIA [id number] [address] [place] ESR Westergren method (Bld) [Velocity]on 06-24-2024 ESR (Bld) [Velocity] 8 mm/h Normal 0-15 [facility] Comment on above: Order Comment: Speci men Type: BLOOD SPECIMENOrdering Facility: [facility] Address: [address] [place] [address] Performed By: #### 5 5454-3, 73109-0, 4537-7 ####[facility] LABCLIA [id number] [address] OF [facility] HISTORY PHYSICALon HISTORY PHYSICAL HNO ID: [id number] Author: LELAND DANG MD Service: General Internal Medicine Author Type: Resident Type: H&P Filed: 06/25/2024 18:30 Note Text: -- Attestation signed by Lleand Dang MD at 06/25/2024 6:30 PM Attending Note I evaluated the patient and personally participated in the wisdom components. I agree with the resident's findings and plan as documented and have discussed the case and management of the patient's care with the resident. Signature: Leland Dang MD Date: 06/25/2024 Time: 6:30 PM -- DEPARTMENT [facility] MEDICINE HISTORY AND PHYSICAL EXAM SERVICE DATE: 06/25/2024 SERVICE TIME: 11:51 AM Primary Care Physician: Cecy Hernandez CNP, [employer] C[employer]AGE: [facility] COVERAGE: Days: [phone], please page Estiven Palmer for patient issues. [...] the wall. 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 [...] he has looked for medical assistance. A jewel inspector recently informed him that he does not have rheumatoid arthritis, despite having been diagnosed with it decades ago. 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 He was seen in [facility] who obtained MRI brain and c-spine in [...] he seek a second opinion at [facility]'s rheumatology center. 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 Social history: Patient has been unable to [...] file. No (more content not included)... [facility] HbA1c (Bld)on 06-24-2024 Average glucose Estimated from glycated hemoglobin (Bld) [Mass/Vol] 134 mg/dL [facility] Comment on above: Order Comment: Speci men Type: BLOOD SPECIMENOrdering Facility: [facility] Address: [address] [place] [address] Result Comment: eAG: (Estimated average glucose) is a calculated value from HgbA1c and is sales representative of the average blood glucose level in the last 2-3 month period. Performed By: #### 5 5454-3, 11483-5, 4537-7 ####[facility] LABCLIA [id number] [place] [id number] [place] HbA1c (Bld) [Mass fraction] 6.3 % High 4.3-5.6 [facility] Comment on above: Order Comment: Deborah finley Type: BLOOD SPECIMENOrdering Facility: [facility] Address: [address] [place] [address] Result Comment: [place] Diabetes Association guidelines indicate that patients with HgbA1c in the range 5.7-6.4% are at increased risk for development of diabetes, and intervention by lifestyle modification may be beneficial. HgbA1c greater or equal to 6.5% is considered diagnostic of diabetes. Performed By: #### 5 5454-3, 73256-1, 7 ####[facility] LABIA [id number] [place] [id number] [place] Ivanna-1 extractable nuclear Ab Qn (S)on 06-24-2024 IVANNA 1 ANTIBODY QUAL Negative Normal Negative [facility] Comment on above: Order Comment: Deborah finley Type: BLOOD SPECIMENOrdering Facility: [facility] Address: [address] [place] [address] Result Comment: Anti -IVANNA-1 antibody is used as an aid in diagnosis of polymyositis and dermatomyositis especially with pulmonary involvement. A negative result cannot rule out polymyositis or dermatomyositis. Clinical correlation is required. Test Methodology: Multiplex flow immunoassay. Performed By: #### 5 1775-5, 74969-3, 02398-5, 91246-9, 78677-6, 97692-5, 81744-8, ANAIFR, 56218-1, 43053-0 ####[facility] LABCLIA [id number] [place] [address] [place] Magnesium SerPl-mCncon 06-24 Magnesium [Mass/Vol] 1.8 mg/dL Normal 1.7-2.3 [facility] Comment on above: Order Comment: Speci men Type: BLOOD SPECIMENOrdering Facility: [facility] Address: [address] [place] [address] Performed By: #### 3 016-3, 4498-2, 2157-6, 1987-5, 39539-8, 40919-9, 4485-9 ####[facility] LABCLIA [id number] [place] [address] [place] NURSING PROGon 06-24-2024 NURSING PROG HNO ID: [id number] Author: LINDY DUCKWORTH RN Service: ? Author Type: Registered Nurse Type: Nursing Progress Note Filed: 06/24/2024 19:04 Note Text: Transfer Note: PATIENT NAME: Bhumika Umana Patient Location: [place] [address] [address] Room: [place] [address] Patient transferred into room/unit [facility] in stable condition. Actions taken: No futher actions taken at this time. Will continue to monitor and check with patient. [facility] Reagin and Treponema pallidu m IgG and IgM [Interp]on 06-24-2024 T. pallidum IgG+IgM IA Ql (S) Non-Reactive Normal Nonreactive [facility] Comment on above: Order Comment: Speci men Type: BLOOD SPECIMEN [facility] Address: [address] [place] [address] Performed By: #### L [id number] #### [facility] CLIA [id number] [address] [place] [address] [place] Reagin+T pallidum IgG+IgM Se rPl-Impon 06-24-2024 Reagin and Treponema pallidum IgG and IgM [Interp] Cannot exclude recent Treponemal infection if specimen collected within 7-10 days after appearance of suspect lesions or 2-3 weeks after an exposure. Clinical correlation is required. Normal [facility] Comment on above: Order Comment: Deborah finley Type: BLOOD SPECIMEN [facility] Address: [address] [place] [address] Performed By: #### L [id number] #### [facility] CLIA [id number] [address] [place] [address] [place] Rheumatoid fact SerPl-aCncon 06-24-2024 Rheumatoid factor Qn 17 [IU]/mL High <16 [facility] Comment on above: Order Comment: Deborah finley Type: BLOOD SPECIMENOrdering Facility: [facility] Address: [address] [place] [address] Performed By: #### 1 1572-5, 2157-6 ####[facility] LABCLIA [id number] [place] [address] [place] Ribonucleoprotein extractabl e nuclear Ab Qn (S)on 06-24-2024 ANTI-TURPENTINER QUAL Negative Normal Negative [facility] Comment on above: Order Comment: Deborah finley Type: BLOOD SPECIMENOrdering Facility: [facility] Address: [address] [place] [address] Performed By: #### 5 1775-5, 45140-7, 94854-1, 52744-2, 21256-6, 09352-6, 11722-5, ANAIFR, 30703-3, 06523-2 ####[facility] LABCLIA [id number] [place] [address] [place] RIBOSOMAL TURPENTINER QUAL Negative Normal Negative [facility] Comment on above: Order Comment: Deborah finley Type: BLOOD SPECIMENOrdering Facility: [facility] Address: [address] [place] [address] Result Comment: Anti -Ribosomal RNA (Ribosomal P) antibody is used as an aid in diagnosis of systemic autoimmune diseases especially systemic lupus erythematosus and mixed connective tissue disease. Cross-reactivity with Anti-kennedy antibody is not uncommon. Clinical correlation is required. Test Methodology: Multiplex flow immunoassay. Performed By: #### 5 1775-5, 16879-1, 09245-6, 14759-9, 02954-5, 68820-1, 24667-0, ANAIFR, 37613-8, 08800-0 ####[facility] LABCLIA [id number] [place] [address] [place] SCL-70 extractable nuclear I gG IA Qn (S)on 06-24-2024 SCLERODERMA AB QUAL Negative Normal Negative [facility] Comment on above: Order Comment: Speci men Type: BLOOD SPECIMENOrdering Facility: [facility] Address: [address] [place] [address] Performed By: #### 5 1775-5, 03308-9, 10200-8, 11330-1, 19972-6, 89209-1, 42970-8, ANAIFR, , ####[facility] LABIA [id number] [place] [address] [place] SCLERODERMA IGG AB <0.2 Normal <1.0 [facility] Comment on above: Order Comment: Speci men Type: BLOOD SPECIMENOrdering Facility: [facility] Address: [address] [place] [address] Result Comment: Scl- 70/Scleroderma antibody test is used as an aid in diagnosis of systemic sclerosis especially the diffuse cutaneous form. A negative result cannot rule out systemic sclerosis. The final interpretation should consider clinical picture and other test results such as anti-centromere antibody. Test Methodology: Multiplex flow immunoassay. Performed By: #### 5 1775-5, 17119-2, 20024-2, 65175-6, 58347-1, 32081-2, 31035-4, ANAIFR, 51393-4, 91648-3 ####[facility] LABIA [id number] [place] [address] [place] Sjogrens syndrome-A extracta ble nuclear Ab Qn (S)on 06-24-2024 SSA ANTIBODY QUAL Negative Normal Negative [facility] Comment on above: Order Comment: Speci men Type: BLOOD SPECIMENOrdering Facility: [facility] Address: [address] [place] [address] Performed By: #### 5 1775-5, 49243-7, 92017-9, 50028-4, 64435-8, 99380-0, 44931-5, ANAIFR, 10149-4, 68138-2 ####[facility] LABCLIA [id number] [place] [address] [place] Sjogrens syndrome-B extracta ble nuclear Ab Qn (S)on 06-24-2024 SSB ANTIBODY QUAL Negative Normal Negative [facility] Comment on above: Order Comment: Speci men Type: BLOOD SPECIMENOrdering Facility: [facility] Address: [address] [place] [address] Performed By: #### 5 1775-5, 35645-2, 06591-8, 17940-1, 42252-7, 98421-1, 44805-2, ANAIFR, 74684-1, 20004-8 ####[facility] LABIA [id number] [place] [address] [place] Kennedy extractable nuclear Ig G Qn (S)on 06-24-2024 SM ANTIBODY QUAL Negative Normal Negative [facility] Comment on above: Order Comment: Speci malia Type: BLOOD SPECIMENOrdering Facility: [facility] Address: [address] [place] [address] Result Comment: Anti -Sm (Kennedy) antibody is used as an aid in diagnosis of systemic lupus erythematosus and its presence is associated with renal disease. A negative result cannot rule out systemic lupus erythematosus. Clinical correlation is required. Test Methodology: Multiplex flow immunoassay. Performed By: #### 5 1775-5, 28109-8, 56817-4, 45737-3, 26574-5, 69004-3, 56141-8, ANAIFR, 27764-6, 55099-2 ####[facility] LABCLIA [id number] [place] [address] [place] TSH SerPl-aCncon 06-24-2024 TSH Qn 1.040 m[IU]/L Normal 0.270-4.200 [facility] Comment on above: Order Comment: Speci men Type: BLOOD SPECIMENOrdering Facility: [facility] Address: [address] [place] [address] Performed By: #### 3 016-3, 4498-2, 2157-6, 1987-12, 31240-9, 48141-5, 4485-04 ####[facility] LABCLIA [id number] [place] [address] [place] VITAMIN B12 W/REFLEXon 06-24 Cobalamin (Vitamin B12) [Mass/Vol] 570 pg/mL Normal 232-1245 [facility] Comment on above: Order Comment: Speci men Type: BLOOD SPECIMEN [facility] Address: [address] [place] [address] Performed By: #### L [id number] #### [facility] CLIA [id number] [address] [place] [address] [place] cCP IgG SerPl-aCncon 024 Cyclic citrullinated peptide IgG Qn >250 High <20 [facility] Comment on above: Order Comment: Speci men Type: BLOOD SPECIMEN [facility] Address: [address] [place] [address] Performed By: #### L [id number] #### [facility] CLIA [id number] [address] [place] [address] [place] CBC AND AUTO DIFFon 06-12-20 24 ABSOLUTE BASOPHIL 0.0 X10E9/L Normal 0.0-0.2 [facility] Comment on above: Performed By: #### C BCA, 52302-7, CMP, 1987-12, 4485-04, 4497-2, ENAP #### [facility] ([id number]) [address], [address] [place] [address] ABSOLUTE NEUTROPHIL 5.5 X10E9/L Normal 1.5-6.6 [facility] Comment on above: Performed By: #### C BCA, 98228-9, CMP, 1987-12, 4485-04, 4498-2, ENAP #### [facility] ([id number]) [address], [address] [place] [address] Basophils/100 WBC (Bld) 0.4 % Normal [facility] Comment on above: Performed By: #### C POOL, 81780-5, CMP, 1987-12, 4485-04, 449-2, ENAP #### [facility] ([id number]) [address], [address] [place] [address] Eosinophils (Bld) [#/Vol] 0.2 10*3/uL Normal 0.0-0.4 [facility] Comment on above: Performed By: #### C POOL, 11005-4, CMP, 1987-12, 4485-04, 449-2, ENAP #### [facility] ([id number]) [address], [address] [place] [address] Eosinophils/100 WBC (Bld) 2.8 % Normal [facility] Comment on above: Performed By: #### Luke LANZA, 54013-8, CMP, 1987-12, 4485-04, 449-2, ENAP #### [facility] ([id number]) [address], [address] [place] [address] Erythrocyte distribution width (RBC) [Ratio] 13.2 % Normal 11.5-15.0 [facility] Comment on above: Performed By: #### C BCA, 28030-7, CMP, 1987-12, 4485-04, 4497-2, ENAP #### [facility] ([id number]) [address], [address] [place] [address] Hematocrit (Bld) [Volume fraction] 45.8 % Normal 39-49 [facility] Comment on above: Performed By: #### C POOL, 66641-7, CMP, 1987-12, 4485-04, 4497-2, ENAP #### [facility] ([id number]) [address], [facility] [address] [place] [address] Hemoglobin (Bld) [Mass/Vol] 14.8 g/dL Normal 13.0-17.0 [facility] Comment on above: Performed By: #### C POOL, 19503-2, CMP, 1987-12, 4485-04, 4497-2, ENAP #### [facility] ([id number]) [address] [address] Lymphocytes (Bld) [#/Vol] 1.7 10*3/uL Normal 1.0-3.5 [facility] Comment on above: Performed By: #### C POOL, 16139-5, CMP, 1987-12, 4485-04, 4497-2, ENAP #### [facility] ([id number]) [address] [address] Lymphocytes/100 WBC (Bld) 20.7 % Normal [facility] Comment on above: Performed By: #### Luke LANZA, 83048-4, CMP, 1987-12, 4485-04, 2, ENAP #### [facility] ([id number]) [address] [address] [place] [address] MCH (RBC) [Entitic mass] 28.8 pg Normal 27-34 [facility] Comment on above: Performed By: #### Luke BCA, 09952-7, CMP, 1987-12, 4485-04, 2, ENAP #### [facility] ([id number]) [address], [facility] [address] [place] [address] MCHC (RBC) [Mass/Vol] 32.4 g/dL Normal 32-[address] [facility] Comment on above: Performed By: #### Luke LANZA, 71533-4, CMP, 1987-12, 4485-04, 4497-2, ENAP #### [facility] ([id number]) [address], [address] [place] [address] MCV (RBC) [Entitic vol] 89 fL Normal 80-100 [facility] Comment on above: Performed By: #### C POOL, 64338-9, CMP, 1987-12, 4485-04, 4497-2, ENAP #### [facility] ([id number]) [address], [address] [place] [address] Monocytes (Bld) [#/Vol] 0.6 10*3/uL Normal 0-0.9 [facility] Comment on above: Performed By: #### Luke LANZA, 62706-1, CMP, 1987-12, 4485-04, 4497-2, ENAP #### [facility] ([id number]) [address], [address] [place] [address] Monocytes/100 WBC (Bld) 7.4 % Normal [facility] Comment on above: Performed By: #### Luke LANZA, 52915-8, CMP, 1987-12, 4485-04, 4497-2, ENAP #### [facility] ([id number]) [address], [address] [place] [address] Neutrophils/100 WBC (Bld) 68.7 % Normal [facility] Comment on above: Performed By: #### Luke LANZA, 03905-3, CMP, 1987-12, 4485-04, 449-2, ENAP #### [facility] ([id number]) [address], [address] [place] [address] Platelet mean volume (Bld) [Entitic vol] 7.4 fL Normal 7-12 [facility] Comment on above: Performed By: #### C BCA, 25282-7, CMP, 1987-12, 4484-9, 4498-2, ENAP #### [facility] ([id number]) [address], [address] [place] [address] Platelets (Bld) [#/Vol] 314 10*3/uL Normal 150-450 [facility] Comment on above: Performed By: #### C BCA, 45042-3, CMP, 1987-12, 9, 4498-2, ENAP #### [facility] ([id number]) [address], [address] [place] [address] RBC COUNT 5.14 X10E12/L Normal 4.10-5.70 [facility] Comment on above: Performed By: #### C BCA, 94731-2, CMP, 1987-12, 4485-04, 4498-2, ENAP #### [facility] ([id number]) [address], [address] [place] [address] WBC (Bld) [#/Vol] 8.1 10*3/uL Normal 4.0-11.0 [facility] Comment on above: Performed By: #### C BCA, 58705-7, CMP, 1987-12, 4485-04, 4498-2, ENAP #### [facility] ([id number]) [address], [address] [place] [address] CK [Catalytic activity/Vol]o n 06-12-2024 CPK 54 U/L Normal 24-195 [facility] Comment on above: Performed By: #### C BCA, 00766-4, CMP, 1987-12, 4485-04, 4498-2, ENAP #### [facility] ([id number]) [address], [address] [place] [address] COMPREHENSIVE METABOLIC PANE Rayshawn 06-12-2024 Albumin [Mass/Vol] 4.4 g/dL Normal 3.2-5.3 [facility] Comment on above: Performed By: #### C BCA, 19843-6, CMP, 1987-12, 4485-04, 4498-2, ENAP #### [facility] ([id number]) [address], [address] [place] [address] ALP [Catalytic activity/Vol] 71 U/L Normal 39-130 [facility] Comment on above: Performed By: #### C BCA, 20035-0, CMP, 1987-12, 4485-04, 4498-2, ENAP #### [facility] ([id number]) [address], [address] [place] [address] ALT [Catalytic activity/Vol] 21 U/L Normal 0-40 [facility] Comment on above: Performed By: #### C BCA, 98033-9, CMP, 1987-12, 4485-04, 4498-2, ENAP #### [facility] ([id number]) [address], [address] [place] [address] Anion gap [Moles/Vol] 10 mmol/L Normal 5-[address] [facility] Comment on above: Performed By: #### C BCA, 35881-7, CMP, 1987-12, 4485-04, 4498-2, ENAP #### [facility] ([id number]) [address], [address] [place] [address] AST [Catalytic activity/Vol] 22 U/L Normal 0-41 [facility] Comment on above: Performed By: #### C BCA, 18178-4, CMP, 1987-12, 4485-04, 4498-2, ENAP #### [facility] ([id number]) [address], [address] [place] [address] Bilirubin [Mass/Vol] 1.0 mg/dL Normal 0.3-1.2 [facility] Comment on above: Performed By: #### C BCA, 91754-6, CMP, 1987-12, 4485-04, 4498-2, ENAP #### [facility] ([id number]) [address], [address] [place] [address] Calcium [Mass/Vol] 9.2 mg/dL Normal 8.5-10.5 [facility] Comment on above: Performed By: #### C BCA, 76170-4, CMP, 1987-12, 4485-04, 4498-2, ENAP #### [facility] ([id number]) [address], [address] [place] [address] Chloride [Moles/Vol] 102 mmol/L Normal 98-109 [facility] Comment on above: Performed By: #### C BCA, 11218-5, CMP, 1987-12, 4485-04, 449-2, ENAP #### [facility] ([id number]) [address], [address] [place] [address] CO2 [Moles/Vol] 25 mmol/L Normal 22-32 [facility] Comment on above: Performed By: #### C BCA, 60157-8, CMP, 1987-12, 4485-04, 4498-2, ENAP #### [facility] ([id number]) [address], [address] [place] [address] Creatinine [Mass/Vol] 0.68 mg/dL Normal 0.60-1.[address] [facility] Comment on above: Result Comment: METH OD TRACEABLE TO IDMS STANDARD Performed By: #### C BCA, 62139-7, CMP, 1987-12, 4485-04, 4498-2, ENAP #### [facility] ([id number]) [address], [address] [place] [address] eGFR (CKD-EPI) NON-RACE DEPENDENT >90 Normal >59 [facility] Comment on above: Result Comment: Reported eGFR is based on the CKD-EPI 2020 equation that does not use a race coefficient. Performed By: #### C BCA, 49955-3, CMP, 1987-12, 4485-04, 4498-2, ENAP #### [facility] ([id number]) [address], [address] [place] [address] Glucose [Mass/Vol] 118 mg/dL High 65-99 [facility] Comment on above: Performed By: #### C BCA, 59069-9, CMP, 1987-12, 4485-04, 4498-2, ENAP #### [facility] ([id number]) [address], [address] [place] [address] Potassium [Moles/Vol] 3.8 mmol/L Normal 3.5-5.[address] [facility] Comment on above: Performed By: #### C BCA, 20327-7, CMP, 1987-12, 4485-04, 4498-2, ENAP #### [facility] ([id number]) [address], [address] [place] [address] Protein [Mass/Vol] 7.5 g/dL Normal 6.0-8.0 [facility] Comment on above: Performed By: #### C BCA, 09117-5, CMP, 1987-12, 4485-04, 4498-2, ENAP #### [facility] ([id number]) [address], [address] [place] [address] Sodium [Moles/Vol] 137 mmol/L Normal 134-146 [facility] Comment on above: Performed By: #### C BCA, 82977-7, CMP, 1987-12, 4485-04, 449-2, ENAP #### [facility] ([id number]) [address], [address] [place] [address] Urea nitrogen [Mass/Vol] 13 mg/dL Normal 5-23 [facility] Comment on above: Performed By: #### C BCA, 01444-4, CMP, 1987-12, 4485-9, 4498-2, ENAP #### [facility] ([id number]) [address], [address] [place] [address] CRP [Mass/Vol]on 06-12-2024 C REACTIVE PROTEIN 0.7 mg/dL Normal 0.000-0.744 [facility] Comment on above: Performed By: #### C BCA, 02727-7, CMP, 1987-12, 4484-9, 4498-2, ENAP #### [facility] ([id number]) [address], [address] [place] [address] ESR Photometric method (Bld) [Velocity]on 06-12-2024 ESR, ERYTHROCYTE SEDIMENTATION RATE 15 mm/h Normal 0-15 [facility] Comment on above: Performed By: #### C BCA, 84016-2, CMP, 1987-12, 4484-9, 4498-2, ENAP #### [facility] ([id number]) [address], [address] [place] [address] LDH [Catalytic activity/Vol] on 06-12-2024 LDH 181 U/L Normal 100-235 [facility] Comment on above: Performed By: #### C BCA, 60690-5, CMP, 1987-12, 4484-, 4498-2, ENAP #### [facility] ([id number]) [address], [address] [place] [address] Laboratory comment Bj (Repo rt)on 06-12-2024 UNLISTED LAB TEST Sent to reference lab Normal [facility] Comment on above: Performed By: #### G O #### [facility] ([id number]) [address] [facility] GENERIC ORDERon 024 TEST NAME HMGCR 3 HYDROXY 3 METHYLGLUTARYL COENZYME A HMG COA REDUCTASE SERUM Normal [facility] Comment on above: Performed By: #### G O #### [facility] [employer] [facility] [employer] ([id number]) [address] [facility], TEST RESULT SEE COMMENTS 024 11:50 PM Normal [facility] Comment on above: Result Comment: NOTE Test Result Flag Unit RefValue -- HMG-CoA Reductase Ab, S <20.0 CU <20.0 Test Performed by: [place] [address] Delivery Driver Assistant: Hussein Khan Ph.D.; CLIA# [id number] Performed By: #### G O #### [facility] [employer] [facility] ([id number]) [address] [facility], TSH Qnon 06-12-2024 TSH 1.23 uIU/mL Normal 0.49-4.67 [facility] Comment on above: Performed By: #### C BCA, 51621-1, [facility], 1987-12, 4485-04, 4498-2, ENAP #### [facility] ([id number]) [address] [place] [address] VITAMIN B12on 06-12-2024 Cobalamin (Vitamin B12) [Mass/Vol] 335 pg/mL Normal 180-914 [facility] Comment on above: Performed By: #### C BCA, 71582-5, [facility], 1987-12, 9, 4498-2, ENAP #### [facility] ([id number]) [address] [facility] [facility] [place] [address] Vitamin D+Metabolites [Mass/ Vol]on 06-12-2024 VITAMIN D 25 HYD TOT 12.5 ng/mL Low 30-100 [facility] Comment on above: Result Comment: Vitamin D status 25 [place] Vitamin D Deficiency <20 ng/mL Insufficiency 20-29 ng/mL Sufficiency 30-100 ng/mL Toxicity >100 ng/mL NOTE: A pediatric reference range has not been established by the product mgmt dev manager of this kit. The [place] [employer] recommends a Vitamin D level of = or >20ng/mL in infants and children. Performed By: #### C BCA, 43835-7, CMP, 1987-, 4485-9, 4498-2, ENAP #### [facility] ([id number]) [address], [address] [place] [address] US SOFT TISS HEAD NECKon US SOFT [...] Berg MD on 06/10/2024 12:07 PM Normal [facility] MLR HEMOGLOBIN A1Con 024 Glucose [Mass/Vol] 134 mg/dL [facility] HbA1c (Bld) [Mass fraction] 6.3 % High 4.5 - 6.2 % [facility] Comment on above: ADA RECOMMENDED LIMI T 4.0 - 6.0 ADA THERAPEUTIC TARGET < 7.0 ACTION SUGGESTED > 7.0 Interpretation and review of laboratory results Abnormal [facility] XR OSSEOUS SURVEY LIMITEDon 04-20-2024 XR [...] King MD on 04/20/2024 7:58 AM Normal [facility] CBC AND AUTO DIFFon 04-17-20 ABSOLUTE BASOPHIL 0.0 X10E9/L Normal 0.0-0.2 [facility] Comment on above: Performed By: #### C POOL, 21041-4, [facility], 1987-12, 4485-04, 4498-2, ENAP #### [facility] ([id number]) [address], [address] [place] [address] ABSOLUTE NEUTROPHIL 4.9 X10E9/L Normal 1.5-6.6 [facility] Comment on above: Performed By: #### C POOL, 18334-0, [facility], 1987-12, 4485-04, 4498-2, ENAP #### [facility] ([id number]) [address], [address] [place] [address] Basophils/100 WBC (Bld) 0.3 % Normal [facility] Comment on above: Performed By: #### C POOL, 26105-3, CMP, 1987-12, 5-9, 4498-2, ENAP #### [facility] ([id number]) [address], [address] [address] Eosinophils (Bld) [#/Vol] 0.2 10*3/uL Normal 0.0-0.4 [facility] Comment on above: Performed By: #### C POOL, 54039-9, CMP, 1987-12, 4485-04, 4497-2, ENAP #### [facility] ([id number]) [address] [address] Eosinophils/100 WBC (Bld) 2.5 % Normal [facility] Comment on above: Performed By: #### C POOL, 65558-9, CMP, 1987-12, 4485-04, 4497-2, ENAP #### [facility] ([id number]) [address] [address] Erythrocyte distribution width (RBC) [Ratio] 13.8 % Normal 11.5-15.0 [facility] Comment on above: Performed By: #### C POOL, 59431-4, CMP, 1987-12, 4485-04, 449-2, ENAP #### [facility] ([id number]) [address] [address] Hematocrit (Bld) [Volume fraction] 43.2 % Normal 39-49 [facility] Comment on above: Performed By: #### C POOL, 74618-4, CMP, 1987-12, 4485-04, 4492, ENAP #### [facility] ([id number]) [address] [address] Hemoglobin (Bld) [Mass/Vol] 14.8 g/dL Normal 13.0-17.0 [facility] Comment on above: Performed By: #### C POOL, 21606-1, CMP, 1987-12, 4485-04, 4497-2, ENAP #### [facility] ([id number]) [address] [address] Lymphocytes (Bld) [#/Vol] 2.7 10*3/uL Normal 1.0-3.5 [facility] Comment on above: Performed By: #### C POOL, 07193-2, [facility], 1987-12, 4485-04, 4497-2, ENAP #### [facility] ([id number]) [address], [address] [place] [address] Lymphocytes/100 WBC (Bld) 31.7 % Normal [facility] Comment on above: Performed By: #### C POOL, 84965-7, [facility], 1987-12, 4485-04, 4497-2, ENAP #### [facility] ([id number]) [address], [facility] [address] [place] [address] MCH (RBC) [Entitic mass] 30.3 pg Normal 27-34 [facility] Comment on above: Performed By: #### Luke LANZA, 88363-2, [facility], 1987-12, 4485-04, 449-2, ENAP #### [facility] ([id number]) [address], [facility] [address] [place] [address] MCHC (RBC) [Mass/Vol] 34.3 g/dL Normal 32-[address] [facility] Comment on above: Performed By: #### Luke LANZA, [id number], [facility], 1987-12, 4485-04, 4492, ENAP #### [facility] ([id number]) [address], [facility] [address] [place] [address] MCV (RBC) [Entitic vol] 89 fL Normal 80-100 [facility] Comment on above: Performed By: #### Luke LANZA, 82965-7, CMP, 1987-12, 4485-04, 2, ENAP #### [facility] ([id number]) [address], [facility] [address] [place] [address] Monocytes (Bld) [#/Vol] 0.6 10*3/uL Normal 0-0.9 [facility] Comment on above: Performed By: #### C POOL, 68705-6, CMP, 1987-12, 4485-04, 4498-2, ENAP #### [facility] ([id number]) [address], [address] [place] [address] Monocytes/100 WBC (Bld) 7.5 % Normal [facility] Comment on above: Performed By: #### C POOL, 73042-6, CMP, 1987-12, 4485-04, 4498-2, ENAP #### [facility] ([id number]) [address], [address] [place] [address] Neutrophils/100 WBC (Bld) 58.0 % Normal [facility] Comment on above: Performed By: #### C POOL, 06210-8, CMP, 1987-12, 4485-04, 449-2, ENAP #### [facility] ([id number]) [address], [address] [place] [address] Platelet mean volume (Bld) [Entitic vol] 7.7 fL Normal 7-12 [facility] Comment on above: Performed By: #### C POOL, [id number], CMP, 1987-12, 4485-04, 4498-2, ENAP #### [facility] [facility] ([id number]) [address], [address] [place] [address] Platelets (Bld) [#/Vol] 330 10*3/uL Normal 150-450 [facility] Comment on above: Performed By: #### C POOL, 36325-8, CMP, 1987-12, 4485-04, 4498-2, ENAP #### [facility] ([id number]) [address], [address] [place] [address] RBC COUNT 4.87 X10E12/L Normal 4.10-5.70 [facility] Comment on above: Performed By: #### C BCA, 08323-9, CMP, 1987-12, 9, 4498-2, ENAP #### [facility] ([id number]) [address], [address] [place] [address] WBC (Bld) [#/Vol] 8.4 10*3/uL Normal 4.0-11.0 [facility] Comment on above: Performed By: #### C BCA, 56695-6, CMP, 1987-12, 4485-04, 4498-2, ENAP #### [facility] ([id number]) [address], [address] [place] [address] COMPREHENSIVE METABOLIC PANE Rayshawn 04-17-2024 Albumin [Mass/Vol] 4.4 g/dL Normal 3.2-5.3 [facility] Comment on above: Performed By: #### C BCA, 38591-6, CMP, 1987-12, 4485-04, 4498-2, ENAP #### [facility] ([id number]) [address], [address] [place] [address] ALP [Catalytic activity/Vol] 71 U/L Normal 39-130 [facility] Comment on above: Performed By: #### C BCA, 51919-5, CMP, 1987-12, 4485-04, 4498-2, ENAP #### [facility] ([id number]) [address], [address] [place] [address] ALT [Catalytic activity/Vol] 25 U/L Normal 0-40 [facility] Comment on above: Performed By: #### C BCA, 38499-5, CMP, 1987-12, 4485-04, 4498-2, ENAP #### [facility] ([id number]) [address], [address] [place] [address] Anion gap [Moles/Vol] 12 mmol/L Normal 5-[address] [facility] Comment on above: Performed By: #### C BCA, 49146-4, CMP, 1987-12, 4485-04, 4498-2, ENAP #### [facility] ([id number]) [address], [address] [place] [address] AST [Catalytic activity/Vol] 17 U/L Normal 0-41 [facility] Comment on above: Performed By: #### C BCA, 39976-7, CMP, 1987-12, 4485-04, 4498-2, ENAP #### [facility] ([id number]) [address], [address] [place] [address] Bilirubin [Mass/Vol] 0.8 mg/dL Normal 0.3-1.2 [facility] Comment on above: Performed By: #### C BCA, 14060-5, CMP, 1987-12, 4485-04, 449-2, ENAP #### [facility] ([id number]) [address], [address] [place] [address] Calcium [Mass/Vol] 9.5 mg/dL Normal 8.5-10.5 [facility] Comment on above: Performed By: #### C BCA, 23915-5, CMP, 1987-12, 4485-04, 4498-2, ENAP #### [facility] ([id number]) [address], [address] [place] [address] Chloride [Moles/Vol] 102 mmol/L Normal 98-109 [facility] Comment on above: Performed By: #### C BCA, 07417-3, CMP, 1987-12, 4485-04, 4498-2, ENAP #### [facility] ([id number]) [address], [address] [place] [address] CO2 [Moles/Vol] 25 mmol/L Normal 22-32 [facility] Comment on above: Performed By: #### C BCA, 47306-6, CMP, 1987-12, 4485-04, 4498-2, ENAP #### [facility] ([id number]) [address], [address] [place] [address] Creatinine [Mass/Vol] 0.63 mg/dL Normal 0.60-1.[address] [facility] Comment on above: Result Comment: METH OD TRACEABLE TO IDMS STANDARD Performed By: #### C BCA, 25679-8, CMP, 1987-12, 4485-04, 4498-2, ENAP #### [facility] ([id number]) [address], [address] [place] [address] eGFR (CKD-EPI) NON-RACE DEPENDENT >90 Normal >59 [facility] Comment on above: Result Comment: Reported eGFR is based on the CKD-EPI 2020 equation that does not use a race coefficient. Performed By: #### C BCA, 33482-9, [facility], 1987-12, 4485-04, 4498-2, ENAP #### [facility] ([id number]) [address], [address] [place] [address] Glucose [Mass/Vol] 111 mg/dL High 65-99 [facility] Comment on above: Performed By: #### C BCA, 69568-2, [facility], 1987-12, 4485-04, 4498-2, ENAP #### [facility] ([id number]) [address], [address] [place] [address] Potassium [Moles/Vol] 3.8 mmol/L Normal 3.5-5.[address] [facility] Comment on above: Performed By: #### C BCA, 99931-2, [facility], 1987-12, 4485-04, 4498-2, ENAP #### [facility] ([id number]) [address], [address] [place] [address] Protein [Mass/Vol] 7.2 g/dL Normal 6.0-8.0 [facility] Comment on above: Performed By: #### C BCA, 31362-6, CMP, 1987-12, 4485-9, 4498-2, ENAP #### [facility] ([id number]) [address], [address] [place] [address] Sodium [Moles/Vol] 139 mmol/L Normal 134-146 [facility] Comment on above: Performed By: #### C BCA, 68534-1, CMP, 1987-12, 9, 4498-2, ENAP #### [facility] ([id number]) [address], [address] [place] [address] Urea nitrogen [Mass/Vol] 12 mg/dL Normal 5-23 [facility] Comment on above: Performed By: #### C BCA, 79238-8, CMP, 1987-12, 4485-04, 4498-2, ENAP #### [facility] ([id number]) [address], [address] [place] [address] CRP [Mass/Vol]on 04-17-2024 C REACTIVE PROTEIN 0.8 mg/dL High 0.000-0.744 [facility] Comment on above: Performed By: #### C BCA, 50875-6, CMP, 1987-12, 4485-04, 4498-2, ENAP #### [facility] ([id number]) [address], [address] [place] [address] Complement C3 [Mass/Vol]on 0 04-17-2024 COMPLEMENT C3 153 mg/dL Normal 86-184 [facility] Comment on above: Performed By: #### C BCA, 67294-3, CMP, 1987-12, 4485-04, 4498-2, ENAP #### [facility] ([id number]) [address], [address] [place] [address] Complement C4 [Mass/Vol]on 0 04-17-2024 COMPLEMENT C4 33 mg/dL Normal 16-47 [facility] Comment on above: Performed By: #### C BCA, 09269-6, CMP, 1987-12, 4485-04, 4498-2, ENAP #### [facility] ([id number]) [address], [address] [place] [address] VIJAY PANELon 04-17-2024 ANTI-KENNEDY AB IGG <0.2 Normal <1.0 [facility] Comment on above: Performed By: #### C BCA, 89503-7, CMP, 1987-12, 4485-04, 4498-2, ENAP #### [facility] ([id number]) [address], [address] [place] [address] JO1 ANTIBODY <0.2 Normal <1.0 [facility] Comment on above: Performed By: #### C BCA, 80629-3, CMP, 1987-12, 4485-04, 4498-2, ENAP #### [facility] ([id number]) [address], [address] [place] [address] TURPENTINER ANTIBODY IGG 0.6 AI Normal <1.0 [facility] Comment on above: Performed By: #### C BCA, 01530-8, CMP, 1987-12, 4485-04, 4498-2, ENAP #### [facility] ([id number]) [address], [address] [place] [address] SCL 70 ANTIBODY <0.2 Normal <1.0 [facility] Comment on above: Performed By: #### C BCA, 96077-1, CMP, 1987-12, 4485-04, 4498-2, ENAP #### [facility] ([id number]) [address], [address] [place] [address] SSA ANTIBODY <0.2 Normal <1.0 [facility] Comment on above: Performed By: #### C BCA, 65870-4, CMP, 1987-12, 4485-04, 4498-2, ENAP #### [facility] ([id number]) [address], [address] [place] [address] SSB ANTIBODY <0.2 Normal <1.0 [facility] Comment on above: Performed By: #### C BCA, 84862-8, CMP, 1987-12, 4485-04, 4498-2, ENAP #### [facility] ([id number]) [address], [address] [place] [address] ESR Photometric method (Bld) [Velocity]on 04-17-2024 ESR, ERYTHROCYTE SEDIMENTATION RATE 19 mm/h High 0-15 [facility] Comment on above: Performed By: #### C BCA, 43015-2, CMP, 1987-12, 4485-04, 4498-2, ENAP #### [facility] ([id number]) [address], [address] [place] [address] Automated basophil %Ordered By: Margaret Kennedy on 03-30-2024 Basophils/100 WBC (Bld) 0.4 % Normal . [facility] Comment on above: Performed By: #### B MP, MG, CBC #### [facility] [address] [place] [address] Automated basophil countOrde red By: Margaret Kennedy on 03-30-2024 Basophils (Bld) [#/Vol] 0.1 10*3/uL Normal 0.0-0.2 [facility] Comment on above: Result Comment: PERF ORMED BY: [place] [address] PATHOLOGIST OPERATIONS OFFICER MARLYN MCKEON M.D. Performed By: #### B MP, MG, CBC #### [facility] [address] [place] [address] Automated blood monocyte cou ntOrdered By: Margaret Kennedy on 03-30-2024 Monocytes (Bld) [#/Vol] 1.8 10*3/uL High 0.0-0.8 [facility] Comment on above: Performed By: #### B MP, MG, CBC #### [address] Automated eosinophil %Ordere d By: Margaret Kennedy on 03-30-2024 Eosinophils/100 WBC (Bld) 1.0 % Normal . [facility] Comment on above: Performed By: #### B MP, MG, CBC #### [address] Automated eosinophil countOr dered By: Margaret Kennedy on 03-30-2024 Eosinophils (Bld) [#/Vol] 0.2 10*3/uL Normal 0.0-0.45 [facility] Comment on above: Performed By: #### B MP, MG, CBC #### [address] Automated monocyte %Ordered By: Margaret Kennedy on 03-30-2024 Monocytes/100 WBC (Bld) 9.0 % Normal . [facility] Comment on above: Performed By: #### B MP, MG, CBC #### [address] Automated neutrophil %Ordere d By: Margaret Kennedy on 03-30-2024 Neutrophils/100 WBC (Bld) 67.6 % Normal . [facility] Comment on above: Performed By: #### B MP, MG, CBC #### [address] Basic Metabolic Panelon Creatinine Clr Calc Pharmacy 238.21 Normal [facility] Comment on above: Performed By: #### B MP, MG, CBC #### [address] GFR/1.73 sq M.predicted MDRD (S/P/Bld) [Vol rate/Area] mL/min/{1.73_m2} Normal [facility] Comment on above: Performed By: #### B MP, MG, CBC #### [address] head/brain wo conon 03-30 CT head/brain wo con [facility] [place] [address] [place] [address] CT Scan Report Signed Patient: Bhumika Umana JR MR#: [id number] : 1975 Acct:[id number] Age/Sex: 48 / M ADM Date: 03/30/24 Loc: 3T Room: [address] [place] [address] Type: ADM INOo Attending Dr: Bola Garcia [...] Mert Ferreira M.D.03/30/2024 9:26 AM Dictation Location: [place] [address] Transcribed By: [facility] 03/30/24925 Dictated By: Mert Ferreira DO 03/30/24917 Signed By: 03/30/24925 Normal [facility] Calcium [Mass/volume] in Ser um or PlasmaOrdered By: Margaret Kennedy on 03-30-2024 Calcium [Mass/Vol] 9.3 mg/dL Normal 8.6-10.3 [facility] Comment on above: Performed By: #### B MP, MG, CBC #### [address] Capillary blood glucose pete urement by glucometer (mass/volume)Ordered By: Edgar Gomez on 03-30-2024 Glucose [Mass/Vol] 115 mg/dL Normal [facility] Comment on above: Random Glucose Refer ence Range is dependent on time and content of last meal. Glucose of more than 200 mg/dL in a nonstressed, ambulatory subject supports the diagnosis of Diabetes Mellitus. Result Comment: [place] om Glucose Reference Range is dependent on time and content of last meal. Glucose of more than 200 mg/dL in a nonstressed, ambulatory subject supports the diagnosis of Diabetes Mellitus. PERFORMED BY: [place] [address] PATHOLOGIST OPERATIONS OFFICER MARLYN MCKEON M.D. Performed By: #### G MARGARITA #### Point of Care testing , Carbon dioxide, total [Moles /volume] in Serum or PlasmaOrdered By: Margaret Kennedy on 03-30-2024 CO2 [Moles/Vol] 27.2 mmol/L Normal 21.0-31.0 [facility] Comment on above: Performed By: #### B MP, MG, CBC #### [address] Chloride [Moles/volume] in S vandana or PlasmaOrdered By: Margaret Kennedy on 03-30-2024 Chloride [Moles/Vol] 101 mmol/L Normal 98-107 [facility] Comment on above: Performed By: #### B MP, MG, CBC #### [facility] [address] [place] [address] Complete Blood Count Auto Di ffon 03-30-2024 Mean Corpuscular HGB Conc 33.3 g/dL Normal 32.5-35.6 [facility] Comment on above: Performed By: #### B MP, MG, CBC #### [address] NRBC% 0.0 /100{WBC} Normal 0-0.5 [facility] Comment on above: Performed By: #### B MP, MG, CBC #### [address] Creatinine [Mass/volume] in Serum or PlasmaOrdered By: Margaret Kennedy on 03-30-2024 Creatinine [Mass/Vol] 0.61 mg/dL Low 0.70-1.30 [facility] Comment on above: Performed By: #### B MP, MG, CBC #### [facility] [address] Erythrocyte distribution wid th [Ratio] by Automated countOrdered By: Margaret Kennedy on 03-30-2024 Erythrocyte distribution width (RBC) [Ratio] 13.6 % Normal 12.0-14.8 [facility] Comment on above: Performed By: #### B MP, MG, CBC #### [facility] [address] Erythrocytes [#/volume] in B lood by Automated countOrdered By: Margaret Kennedy on 03-30-2024 RBC (Bld) [#/Vol] 5.03 10*6/uL Normal 3.90-5.60 [facility] Comment on above: Performed By: #### B MP, MG, CBC #### [address] Glucose Poct Glucometerson 0 03-30-2024 Glucose [Mass/Vol] 159 mg/dL Normal [facility] Comment on above: Result Comment: [facility] Glucose Reference Range is dependent on time and content of last meal. Glucose of more than 200 mg/dL in a nonstressed, ambulatory subject supports the diagnosis of Diabetes Mellitus. PERFORMED BY: [place] [address] PATHOLOGIST OPERATIONS OFFICER MARLYN MCKEON M.D. Performed By: #### C BC, MG, PHOS, CMP #### [address] Glucose [Mass/Vol] 144 mg/dL Normal [facility] Comment on above: Result Comment: [facility] Glucose Reference Range is dependent on time and content of last meal. Glucose of more than 200 mg/dL in a nonstressed, ambulatory subject supports the diagnosis of Diabetes Mellitus. PERFORMED BY: [place] [address] PATHOLOGIST OPERATIONS OFFICER MARLYN MCKEON M.D. Performed By: #### C BC, MG, PHOS, CMP #### [address] Glucose [Mass/volume] in Ser um or PlasmaOrdered By: Margaret Kennedy on 03-30-2024 Glucose [Mass/Vol] 119 mg/dL High 70-100 [facility] Comment on above: ADA recommended refe rence rangeRandom Glucose Reference Range is dependent on time and content of last meal. Glucose of more than 200 mg/dL in a nonstressed, ambulatory subject supports the diagnosis of Diabetes Mellitus. Result Comment: [place] om Glucose Reference Range is dependent on time and content of last meal. Glucose of more than 200 mg/dL in a nonstressed, ambulatory subject supports the diagnosis of Diabetes Mellitus. ADA recommended reference range Performed By: #### B MP MG, CBC #### [address] Hematocrit [Volume Fraction] of Blood by Automated countOrdered By: Margaret Kennedy on 03-30-2024 Hematocrit (Bld) [Volume fraction] 44.6 % Normal 38.8-50.0 [facility] Comment on above: Performed By: #### B MP MG, CBC #### [address] Hemoglobin [Mass/volume] in BloodOrdered By: Margaret Kennedy on 03-30-2024 Hemoglobin (Bld) [Mass/Vol] 14.9 g/dL Normal 13.0-17.0 [facility] Comment on above: Performed By: #### B MP, MG, CBC #### [address] Leukocytes [#/volume] correc elizabeth for nucleated erythrocytes in Blood by Automated counOrdered By: Margaret Kennedy on 03-30-2024 WBC corrected for nucl RBC Auto (Bld) [#/Vol] 20.0 10*3/uL High 4.1-10.5 [facility] Leukocytes [#/volume] in Blo od by Automated countOrdered By: Margaret Kennedy on 03-30-2024 WBC (Bld) [#/Vol] 20.0 10*3/uL High 4.1-10.5 [facility] Comment on above: Performed By: #### B MP, MG, CBC #### [address] Lymphocytes [#/volume] in Bl ood by Automated countOrdered By: Margaret Kennedy on 03-30-2024 Lymphocytes (Bld) [#/Vol] 4.4 10*3/uL Normal 1.00-4.8 [facility] Comment on above: Performed By: #### B MP, MG, CBC #### [address] Lymphocytes/100 leukocytes i n Blood by Automated countOrdered By: Margaret Kennedy on 03-30-2024 Lymphocytes/100 WBC (Bld) 22.0 % Normal . [facility] Comment on above: Performed By: #### B MP, MG, CBC #### [address] MCH [Entitic mass] by Automa elizabeth countOrdered By: Margaret Kennedy on 03-30-2024 MCH (RBC) [Entitic mass] 29.5 pg Normal 27.5-35.2 [facility] Comment on above: Performed By: #### B MP, MG, CBC #### [address] MCHC Auto (RBC) [Mass/Vol]Or dered By: Margaret Kennedy on 03-30-2024 MCHC (RBC) [Mass/Vol] 33.3 g/dL 32.5-35.6 [facility] MCV [Entitic volume] by Auto mated countOrdered By: Margaret Kennedy on 03-30-2024 MCV (RBC) [Entitic vol] 88.6 fL Normal 83.5-101 [facility] Comment on above: Performed By: #### B MP, MG, CBC #### [address] Magnesium [Mass/volume] in S vandana or PlasmaOrdered By: Margaret Kennedy on 03-30-2024 Magnesium [Mass/Vol] 1.8 mg/dL Low 1.9-2.7 [facility] Comment on above: Result Comment: PERF ORMED BY: [place] [address] PATHOLOGIST OPERATIONS OFFICER MARLYN MCKEON M.D. Performed By: #### B MP, MG, CBC #### [facility] [address] [place] [address] Neutrophils [#/volume] in Bl ood by Automated countOrdered By: Margaret Kennedy on 03-30-2024 Neutrophils (Bld) [#/Vol] 13.5 10*3/uL High 1.8-7.7 [facility] Comment on above: Performed By: #### B MP, MG, CBC #### [facility] [address] [place] [address] No Panel InformationOrdered By: Margaret Kennedy on 03-30-2024 Estimated GFR (CKD-EPI) > 60.0 mL/Min [facility] Creatinine Clearance (Chem 238.21 [facility] Nucleated erythrocytes [Pres ence] in Blood by Automated countOrdered By: Margaret Kennedy on 03-30-2024 Nucleated RBC Auto Ql (Bld) 0.0 /100{WBC} 0-0.5 [facility] Platelet mean volume [Entiti c volume] in Blood by Automated countOrdered By: Margaret Kennedy on 03-30-2024 Platelet mean volume (Bld) [Entitic vol] 7.5 fL Normal 6.6-10.1 [facility] Comment on above: Performed By: #### B MP, MG, CBC #### [facility] [address] [place] [address] Platelets [#/volume] in Bloo d by Automated countOrdered By: Margaret Kennedy on 03-30-2024 Platelets (Bld) [#/Vol] 324 10*3/uL Normal 150-450 [facility] Comment on above: Performed By: #### B MP, MG, CBC #### [facility] [address] Potassium [Moles/volume] in Serum or PlasmaOrdered By: Margaret Kennedy on 03-30-2024 Potassium [Moles/Vol] 4.4 mmol/L Normal 3.5-5.1 [facility] Comment on above: Performed By: #### B MP, MG, CBC #### [facility] [address] [place] [address] Serum or plasma anion gap de terminationOrdered By: Margaret Kennedy on 03-30-2024 Anion gap [Moles/Vol] 12.2 mmol/L Normal 6.0-15.0 [facility] Comment on above: Performed By: #### B MP, MG, CBC #### [facility] [address] [place] [address] Sodium [Moles/volume] in Ser um or PlasmaOrdered By: Margaret Kennedy on 03-30-2024 Sodium [Moles/Vol] 136 mmol/L Normal 136-145 [facility] Comment on above: Performed By: #### B MP, MG, CBC #### [facility] [address] [place] [address] Urea nitrogen [Mass/volume] in Serum or PlasmaOrdered By: Margaret Kennedy on 03-30-2024 Urea nitrogen [Mass/Vol] 13 mg/dL Normal 7-25 [facility] Comment on above: Performed By: #### B MP, MG, CBC #### [facility] [address] [place] [address] Automated basophil %Ordered By: Emily Winn on 03-29-2024 Basophils/100 WBC (Bld) 0.5 % Normal . [facility] Comment on above: Performed By: #### G LULS #### Point of Care testing , Automated basophil countOrde red By: Emily Winn on 03-29-2024 Basophils (Bld) [#/Vol] 0.1 10*3/uL Normal 0.0-0.2 [facility] Comment on above: Performed By: #### G LULS #### Point of Care testing , Automated blood monocyte cou ntOrdered By: Emily Winn on 03-29-2024 Monocytes (Bld) [#/Vol] 1.1 10*3/uL High 0.0-0.8 [facility] Comment on above: Performed By: #### G LULS #### Point of Care testing , Automated eosinophil %Ordere d By: Emily Mosqueraelizabeth on 03-29-2024 Eosinophils/100 WBC (Bld) 0.6 % Normal . [facility] Comment on above: Performed By: #### G LULS #### Point of Care testing , Automated eosinophil countOr dered By: Emily Winn on 03-29-2024 Eosinophils (Bld) [#/Vol] 0.1 10*3/uL Normal 0.0-0.45 [facility] Comment on above: Performed By: #### G LULS #### Point of Care testing , Automated monocyte %Ordered By: Emily Winn on 03-29-2024 Monocytes/100 WBC (Bld) 6.5 % Normal . [facility] Comment on above: Performed By: #### G LULS #### Point of Care testing , Automated neutrophil %Ordere d By: Emily Winn on 03-29-2024 Neutrophils/100 WBC (Bld) 77.7 % Normal . [facility] Comment on above: Performed By: #### G LULS #### Point of Care testing , Basic Metabolic Panelon Creatinine Clr Calc Pharmacy 196.64 Normal [facility] Comment on above: Performed By: #### B MP, MG, CBC #### [facility] [address] [place] [address] [place] GFR/1.73 sq M.predicted MDRD (S/P/Bld) [Vol rate/Area] mL/min/{1.73_m2} Normal [facility] Comment on above: Performed By: #### B MP, MG, CBC #### [facility] [address] [place] [address] [place] C reactive protein [Mass/vol ume] in Serum or PlasmaOrdered By: Emily Winn on 03-29-2024 CRP [Mass/Vol] < 0.5 mg/dL 0.0-0.5 [facility] C-Reactive Proteinon 024 CRP [Mass/Vol] mg/L Normal 0.0-0.5 [facility] Comment on above: Result Comment: PERF ORMED BY: [place] [address] PATHOLOGIST OPERATIONS OFFICER MARLYN MCKEON M.D. Performed By: #### B MP, MG, CBC #### [facility] [address] [place] [address] Calcium [Mass/volume] in Ser um or PlasmaOrdered By: Emily Winn on 03-29-2024 Calcium [Mass/Vol] 9.3 mg/dL Normal 8.6-10.3 [facility] Comment on above: Performed By: #### B MP, MG, CBC #### [address] Capillary blood glucose pete urement by glucometer (mass/volume)Ordered By: Emily Winn on 03-29-2024 Glucose [Mass/Vol] 204 mg/dL Normal [facility] Comment on above: Random Glucose Refer ence Range is dependent on time and content of last meal. Glucose of more than 200 mg/dL in a nonstressed, ambulatory subject supports the diagnosis of Diabetes Mellitus. Result Comment: [place] om Glucose Reference Range is dependent on time and content of last meal. Glucose of more than 200 mg/dL in a nonstressed, ambulatory subject supports the diagnosis of Diabetes Mellitus. PERFORMED BY: [place] [address] PATHOLOGIST OPERATIONS OFFICER MARLYN MCKEON M.D. Performed By: #### C BC, MG, PHOS, CMP #### [facility] [address] [place], [place] [id number] [facility] Carbon dioxide, total [Moles /volume] in Serum or PlasmaOrdered By: Emily Winn on 03-29-2024 CO2 [Moles/Vol] 23.0 mmol/L Normal 21.0-31.0 [facility] Comment on above: Performed By: #### B MP, MG, CBC #### [facility] [address] Chloride [Moles/volume] in S vandana or PlasmaOrdered By: Emily Winn on 03-29-2024 Chloride [Moles/Vol] 101 mmol/L Normal 98-107 [facility] Comment on above: Performed By: #### B MP, MG, CBC #### [facility] [address] Complete Blood Count Auto Di ffon 03-29-2024 Mean Corpuscular HGB Conc 33.1 g/dL Normal 32.5-35.6 [facility] Comment on above: Performed By: #### G LULS #### Point of Care testing , Monocytes/100 WBC (Bld) 16.02 % Normal 0.00-20.00 [facility] Comment on above: Performed By: #### G LULS #### Point of Care testing , NRBC% 0.1 /100{WBC} Normal 0-0.5 [facility] Comment on above: Performed By: #### G LULS #### Point of Care testing , Creatine kinase [Enzymatic a ctivity/volume] in Serum or PlasmaOrdered By: Emily Winn on 03-29-2024 CK [Catalytic activity/Vol] 37 U/L Normal 30-223 [facility] Comment on above: Result Comment: PERF ORMED BY: [place] [address] PATHOLOGIST OPERATIONS OFFICER MARLYN MCKEON M.D. Performed By: #### G LULS #### Point of Care testing , Creatinine [Mass/volume] in Serum or PlasmaOrdered By: Emily Winn on 03-29-2024 Creatinine [Mass/Vol] 0.74 mg/dL Normal 0.70-1.30 [facility] Comment on above: Performed By: #### B MP, MG, CBC #### [facility] [address] [place] [address] Erythrocyte Sedimentation Ra devaughn 03-29-2024 ESR (Bld) [Velocity] 12 mm/h Normal 0-14 [facility] Comment on above: Result Comment: PERF ORMED BY: [place] [address] PATHOLOGIST OPERATIONS OFFICER MARLYN MCKEON M.D. Performed By: #### G LULS #### Point of Care testing , Erythrocyte distribution wid th [Ratio] by Automated countOrdered By: Emily Winn on 03-29-2024 Erythrocyte distribution width (RBC) [Ratio] 13.6 % Normal 12.0-14.8 [facility] Comment on above: Performed By: #### G LULS #### Point of Care testing , Erythrocyte sedimentation ra te by Photometric methodOrdered By: Emily Winn on 03-29-2024 ESR Photometric method (Bld) [Velocity] 12 mm/hr 0-14 [facility] Erythrocytes [#/volume] in B lood by Automated countOrdered By: Emily Winn on 03-29-2024 RBC (Bld) [#/Vol] 5.15 10*6/uL Normal 3.90-5.60 [facility] Comment on above: Performed By: #### G LULS #### Point of Care testing , Glucose [Mass/volume] in Ser um or PlasmaOrdered By: Emily Winn on 03-29-2024 Glucose [Mass/Vol] 201 mg/dL High 70-100 [facility] Comment on above: ADA recommended refe rence rangeRandom Glucose Reference Range is dependent on time and content of last meal. Glucose of more than 200 mg/dL in a nonstressed, ambulatory subject supports the diagnosis of Diabetes Mellitus. Result Comment: Vaughn om Glucose Reference Range is dependent on time and content of last meal. Glucose of more than 200 mg/dL in a nonstressed, ambulatory subject supports the diagnosis of Diabetes Mellitus. ADA recommended reference range Performed By: #### B MP, MG, CBC #### [place] [address] [place] Hematocrit [Volume Fraction] of Blood by Automated countOrdered By: Emily Winn on 03-29-2024 Hematocrit (Bld) [Volume fraction] 45.6 % Normal 38.8-50.0 [facility] Comment on above: Performed By: #### G ALICIALS #### Point of Care testing , Hemoglobin [Mass/volume] in BloodOrdered By: Emily Winn on 03-29-2024 Hemoglobin (Bld) [Mass/Vol] 15.1 g/dL Normal 13.0-17.0 [facility] Comment on above: Performed By: #### G LULS #### Point of Care testing , Leukocytes [#/volume] correc elizabeth for nucleated erythrocytes in Blood by Automated counOrdered By: Emily Winn on 03-29-2024 WBC corrected for nucl RBC Auto (Bld) [#/Vol] 17.1 10*3/uL High 4.1-10.5 [facility] Leukocytes [#/volume] in Blo od by Automated countOrdered By: Emily Winn on 03-29-2024 WBC (Bld) [#/Vol] 17.1 10*3/uL High 4.1-10.5 [facility] Comment on above: Performed By: #### G ALICIALS #### Point of Care testing , Lymphocytes [#/volume] in Bl ood by Automated countOrdered By: Emily Winn on 03-29-2024 Lymphocytes (Bld) [#/Vol] 2.5 10*3/uL Normal 1.00-4.8 [facility] Comment on above: Performed By: #### G LULS #### Point of Care testing , Lymphocytes/100 leukocytes i n Blood by Automated countOrdered By: Emily Winn on 03-29-2024 Lymphocytes/100 WBC (Bld) 14.7 % Normal . [facility] Comment on above: Performed By: #### G ALICIALS #### Point of Care testing , MCH [Entitic mass] by Automa elizabeth countOrdered By: Emily Winn on 03-29-2024 MCH (RBC) [Entitic mass] 29.3 pg Normal 27.5-35.2 [facility] Comment on above: Performed By: #### G LULS #### Point of Care testing , MCHC Auto (RBC) [Mass/Vol]Or dered By: Emily Winn on 03-29-2024 MCHC (RBC) [Mass/Vol] 33.1 g/dL 32.5-35.6 [facility] MCV [Entitic volume] by Auto mated countOrdered By: Emily Winn on 03-29-2024 MCV (RBC) [Entitic vol] 88.5 fL Normal 83.5-101 [facility] Comment on above: Performed By: #### G LULS #### Point of Care testing , Monocyte distribution width [Entitic volume] in Blood by AutomatedOrdered By: Emily Winn on 03-29-2024 Monocyte distribution width Auto (Bld) [Entitic vol] 16.02 % 0.00-20.00 [facility] Myoglobinon 03-29-2024 Myoglobin [Mass/Vol] 31 ng/mL Normal 28-72 [facility] Comment on above: Result Comment: Perf ormed at: CB - [facility] [place] [address] Delivery Driver Assistant: Gabriel Chan PhD, Phone: [phone] PERFORMED BY: [place] [address] PATHOLOGIST OPERATIONS OFFICER MARLYN MCKEON M.D. Performed By: #### B MP, MG, CBC #### [address] Neutrophils [#/volume] in Bl ood by Automated countOrdered By: Emily Winn on 03-29-2024 Neutrophils (Bld) [#/Vol] 13.3 10*3/uL High 1.8-7.7 [facility] Comment on above: Performed By: #### G LULS #### Point of Care testing , No Panel InformationOrdered By: Emily Winn on 03-29-2024 Estimated GFR (CKD-EPI) > 60.0 mL/Min [facility] Creatinine Clearance (Chem 196.64 [facility] Nucleated erythrocytes [Pres ence] in Blood by Automated countOrdered By: Emily Winn on 03-29-2024 Nucleated RBC Auto Ql (Bld) 0.1 /100{WBC} 0-0.5 [facility] Platelet mean volume [Entiti c volume] in Blood by Automated countOrdered By: Emily Winn on 03-29-2024 Platelet mean volume (Bld) [Entitic vol] 7.4 fL Normal 6.6-10.1 [facility] Comment on above: Performed By: #### G MARGARITA #### Point of Care testing , Platelets [#/volume] in Bloo d by Automated countOrdered By: Emily Winn on 03-29-2024 Platelets (Bld) [#/Vol] 352 10*3/uL Normal 150-450 [facility] Comment on above: Performed By: #### G MARGARITA #### Point of Care testing , Potassium [Moles/volume] in Serum or PlasmaOrdered By: Emliy Winn on 03-29-2024 Potassium [Moles/Vol] 4.4 mmol/L Normal 3.5-5.1 [facility] Comment on above: Performed By: #### B MP, MG, CBC #### [facility] [address] Serum or plasma anion gap de terminationOrdered By: Emily Winn on 03-29-2024 Anion gap [Moles/Vol] 14.4 mmol/L Normal 6.0-15.0 [facility] Comment on above: Performed By: #### B MP, MG, CBC #### [facility] [address] [place] [address] [place] Sodium [Moles/volume] in Ser um or PlasmaOrdered By: Emily Winn on 03-29-2024 Sodium [Moles/Vol] 134 mmol/L Low 136-145 [facility] Comment on above: Performed By: #### B MP, MG, CBC #### [facility] [address] [place] [address] [place] Urea nitrogen [Mass/volume] in Serum or PlasmaOrdered By: Emily Winn on 03-29-2024 Urea nitrogen [Mass/Vol] 15 mg/dL Normal 7-25 [facility] Comment on above: Performed By: #### B MP, MG, CBC #### [facility] [address] [place] [id number] [facility] Activated partial thrombopla stin time (aPTT) in platelet poor plasma by coagulation aOrdered By: Danial Horan on 03-25-2024 aPTT Coag (PPP) [Time] 30.2 s 25.1-36.5 [facility] Comment on above: A hematocrit value g reater than 55% may lead to inaccurate results in coagulation testing. Patients having hematocrit values >55% require a special collection tube for coagulation studies. Please contact the laboratory at [phone] for redraw instructions. Aerobic Cultureon 03-25-2024 Aerobic [...] Seen 2+ White Blood Cells PERFORMED BY: [place] [address] PATHOLOGIST OPERATIONS OFFICER MARLYN MCKEON M.D. Normal [facility] Comment on above: Performed By: #### C BC, MG, PHOS, CMP #### [facility] [address] [place] [id number] [facility] Albumin [Mass/volume] in Cer ebral spinal fluidOrdered By: Danial Horan on 03-25-2024 Albumin (CSF) [Mass/Vol] 46 mg/dL High 10-45 [facility] Albumin [Mass/volume] in Ser um or PlasmaOrdered By: Danial Horan on 03-25-2024 Albumin [Mass/Vol] 4.2 g/dL 4.1-5.1 [facility] CSF IgG/albumin ratioOrdered By: Danial Horan on 03-25-2024 IgG/Albumin (CSF) [Mass ratio] 0.13 0.00-0.25 [facility] CSF PCR Panelon 03-25-2024 CSF PCR [...] Varicella zoster virus Not detected PERFORMED BY: [place] [address] PATHOLOGIST OPERATIONS OFFICER MARLYN MCKEON M.D. Normal [facility] Comment on above: Performed By: #### C BC, MG, PHOS, CMP #### [place] [id number] [facility] Capillary blood glucose pete urement by glucometer (mass/volume)Ordered By: Simon Wolfe on 03-25-2024 Glucose [Mass/Vol] 127 mg/dL Normal [facility] Comment on above: Random Glucose Refer ence Range is dependent on time and content of last meal. Glucose of more than 200 mg/dL in a nonstressed, ambulatory subject supports the diagnosis of Diabetes Mellitus. Result Comment: [place] Glucose Reference Range is dependent on time and content of last meal. Glucose of more than 200 mg/dL in a nonstressed, ambulatory subject supports the diagnosis of Diabetes Mellitus. PERFORMED BY: [place] [address] PATHOLOGIST OPERATIONS OFFICER MARLYN MCKEON M.D. Performed By: #### B MP, MG, CBC #### [place] [id number] [place] Cell Count Differential,CSFo n 03-25-2024 Appearance, CSF Turbid Critically abnormal Clear [facility] Comment on above: Order Comment: Comme nt Tube 1 Performed By: #### C BC, MG, PHOS, CMP #### [place] [address] [place] Color, CSF Red Critically abnormal Colorless [facility] Comment on above: Order Comment: Comme nt Tube 1 Performed By: #### C BC, MG, PHOS, CMP #### [facility] [address] [place] [address] [place] Eosinophil, CSF 2 % High 0-0 [facility] Comment on above: Order Comment: Comme nt Tube 1 Performed By: #### C BC, MG, PHOS, CMP #### [facility] [address] [place] [address] [place] Lymphocytes, CSF 19 % Low 40-80 [facility] Comment on above: Order Comment: Comme nt Tube 1 Performed By: #### C BC, MG, PHOS, CMP #### [facility] [address] [place] [address] [place] Monocytes, CSF 7 % Low 15-45 [facility] Comment on above: Order Comment: Comme nt Tube 1 Performed By: #### C BC, MG, PHOS, CMP #### [facility] [address] [place] [address] [place] Neutrophils, CSF 72 % High 0-6 [facility] Comment on above: Order Comment: Comme nt Tube 1 Performed By: #### C BC, MG, PHOS, CMP #### [facility] [address] [place] [address] [place] [address] Normal [facility] Comment on above: Order Comment: Comme nt Tube 1 Result Comment: The reference interval and other method performance specifications have not been established for this body fluid. The test result must be integrated into the clinical context for interpretation. Performed By: #### C BC, MG, PHOS, CMP #### [facility] [address] [place] [address] [place] TNC, CSF 85 Off scale high 0-5 [facility] Comment on above: Order Comment: Comme nt Tube 1 Result Comment: Crit ical value result called at 1233 on 03/25/24 Performed By: #### C BC, MG, PHOS, CMP #### [facility] [address] [place] [address] Tube Number Tested, CSF Tube Number: 1 Normal [facility] Comment on above: Order Comment: Comme nt Tube 1 Result Comment: PERF ORMED BY: [place] [address] PATHOLOGIST OPERATIONS OFFICER MARLYN MCKEON M.D. Performed By: #### C BC, MG, PHOS, CMP #### [address] Cell Count Differential,CSF #2on 03-25-2024 Appearance, CSF Hazy Critically abnormal Clear [facility] Comment on above: Order Comment: Comme nt Tube 3 Performed By: #### C BC, MG, PHOS, CMP #### [address] Color, CSF LT PINK Normal Colorless [facility] Comment on above: Order Comment: Comme nt Tube 3 Performed By: #### C BC, MG, PHOS, CMP #### [address] CSF Supernatant Color Colorless Normal Colorless [facility] Comment on above: Order Comment: Comme nt Tube 3 Performed By: #### C BC, MG, PHOS, CMP #### [address] Order Comment: Comme nt Tube 1 CSF Volume, Total 9.0 mL Normal [facility] Comment on above: Order Comment: Comme nt Tube 3 Performed By: #### C BC, MG, PHOS, CMP #### [address] Order Comment: Comme nt Tube 1 Eosinophil, CSF 1 % High 0-0 [facility] Comment on above: Order Comment: Comme nt Tube 3 Performed By: #### C BC, MG, PHOS, CMP #### [place] [address] [place] Lymphocytes, CSF 29 % Low 40-80 [facility] Comment on above: Order Comment: Comme nt Tube 3 Performed By: #### C BC, MG, PHOS, CMP #### [address] Monocytes, CSF 8 % Low 15-45 [facility] Comment on above: Order Comment: Comme nt Tube 3 Performed By: #### C BC, MG, PHOS, CMP #### [facility] [address] [place] [address] Neutrophils, CSF 62 % High 0-6 [facility] Comment on above: Order Comment: Comme nt Tube 3 Performed By: #### C BC, MG, PHOS, CMP #### [facility] [address] [place] [address] RBC, CSF 3051 Normal [facility] Comment on above: Order Comment: Comme nt Tube 3 Result Comment: The reference interval and other method performance specifications have not been established for this body fluid. The test result must be integrated into the clinical context for interpretation. Performed By: #### C BC, MG, PHOS, CMP #### [facility] [address] [place] [address] TNC, CSF 3 /uL Normal 0-5 [facility] Comment on above: Order Comment: Comme nt Tube 3 Performed By: #### C BC, MG, PHOS, CMP #### [facility] [address] [place] [address] Tube Number Tested, CSF Tube Number: 3 Normal [facility] Comment on above: Order Comment: Comme nt Tube 3 Result Comment: PERF ORMED BY: [place] [address] PATHOLOGIST OPERATIONS OFFICER MARLYN MCKEON M.D. Performed By: #### C BC, MG, PHOS, CMP #### [facility] [address] [place] [address] Cells Counted Total [#] in B patricia fluidOrdered By: Danial Horan on 03-25-2024 Cells Counted Total (Body fld) [#] 85 mm^3 High 0-5 [facility] Comment on above: Critical valueresult calledat 1233 on 03/25/24 Cerebrospinal fluid IgG inde xOrdered By: Danial Horan on 03-25-2024 IgG clearance/Albumin clearance (S+CSF) [Ratio] 0.6 0.0-0.7 [facility] Cerebrospinal fluid appearan ce descriptionOrdered By: Danial Horan on 03-25-2024 Appearance (CSF) Hazy Abnormal Clear [facility] Cerebrospinal fluid eosinoph il percentageOrdered By: Danial Horan on 03-25-2024 Eosinophils/100 WBC (CSF) 2 % High 0-0 [facility] Cerebrospinal fluid lymphocy te percentageOrdered By: Danial Horan on 03-25-2024 Lymphocytes/Leukocyte s Manual cnt (CSF) [Pure # fraction] 19 % Low 40-80 [facility] Cerebrospinal fluid monocyte percentageOrdered By: Danial Horan on 03-25-2024 Monocytes/100 WBC (CSF) 7 % Low 15-45 [facility] Cerebrospinal fluid neutroph il percentageOrdered By: Danial Horan on 03-25-2024 Neutrophils/100 WBC (CSF) 72 % High 0-6 [facility] Cerebrospinal fluid post-oneil trifugation appearance determinationOrdered By: Danial Horan on 03-25-2024 Appearance (Spun CSF) Colorless Colorless [facility] Cerebrospinal fluid sample t ube volume measurementOrdered By: Danial Horan on 03-25-2024 Specimen volume (CSF) 9.0 mL [facility] Color CSFOrdered By: Danial Crawley pler on 03-25-2024 Color (CSF) Lt pink Colorless [facility] Erythrocytes [#/volume] in B patricia fluid by Automated countOrdered By: Danial Horan on 03-25-2024 RBC Auto (Body fld) [#/Vol] 3051 mm^3 [facility] Comment on above: The reference interv al and other method performance specifications have not been established for this body fluid. The test result must be integrated into the clinical context for interpretation. Glucose Poct Glucometerson 0 03-25-2024 Glucose [Mass/Vol] 156 mg/dL Normal [facility] Comment on above: Result Comment: [facility] Glucose Reference Range is dependent on time and content of last meal. Glucose of more than 200 mg/dL in a nonstressed, ambulatory subject supports the diagnosis of Diabetes Mellitus. PERFORMED BY: [address] [place] [address] PATHOLOGIST OPERATIONS OFFICER MARLYN MCKEON M.D. Performed By: #### C BC, MG, PHOS, CMP #### [address] Glucose [Mass/Vol] 114 mg/dL Normal [facility] Comment on above: Result Comment: [place] Glucose Reference Range is dependent on time and content of last meal. Glucose of more than 200 mg/dL in a nonstressed, ambulatory subject supports the diagnosis of Diabetes Mellitus. PERFORMED BY: [place] [address] PATHOLOGIST OPERATIONS OFFICER MARLYN MCKEON M.D. Performed By: #### G LULS #### Point of Care testing , Glucose [Mass/Vol] 99 mg/dL Normal [facility] Comment on above: Result Comment: [facility] Glucose Reference Range is dependent on time and content of last meal. Glucose of more than 200 mg/dL in a nonstressed, ambulatory subject supports the diagnosis of Diabetes Mellitus. PERFORMED BY: [place] [address] PATHOLOGIST OPERATIONS OFFICER MARLYN MCKEON M.D. Performed By: #### G LULS #### Point of Care testing , Glucose [Mass/volume] in Cer ebral spinal fluidOrdered By: Danial Horan on 03-25-2024 Glucose (CSF) [Mass/Vol] 72 mg/dL High 40-70 [facility] Glucose, CSF #2on 03-25-2024 Glucose, CSF #2 72 mg/dL High 40-70 [facility] Comment on above: Order Comment: Comme nt Tube 3 Performed By: #### C BC, MG, PHOS, CMP #### [place] [address] [place] Glucose, Spinal Fluidon 02-26 Glucose, Spinal Fluid 72 mg/dL High 40-70 [facility] Comment on above: Order Comment: Comme nt Tube 1 Performed By: #### C BC, MG, PHOS, CMP #### [place] [address] [place] Gram Stainon 03-25-2024 Microscopic observation Gram stain Nom (Unsp spec) PER LAB PROTOCAL - WHEN PCR ORDERED, A CULTURE MUST BE ORDERED. Tube Number for CSF Microbiology: 2 Gram Stain Result No Bacteria Seen 2+ White Blood Cells PERFORMED BY: [place] [address] PATHOLOGIST OPERATIONS OFFICER MARLYN MCKEON M.D. Normal [facility] Comment on above: Performed By: #### C BC, MG, PHOS, CMP #### [address] Gram stain for investigation of transfusion reactionOrdered By: Danial Horan on 03-25-2024 Microscopic observation Gram stain Nom (Unsp spec) [facility] Microscopic observation Gram stain Nom (Unsp spec) No Anaerobes Isolated 3 Days [facility] INR in Platelet poor plasma by Coagulation assayOrdered By: Danial Horan on 03-25-2024 INR Coag (PPP) [Relative time] 1.0 {INR} Normal [facility] Comment on above: INR Therapeutic Rang [...] 03-25-2024 IR guided lumbar puncture LP [facility] [place] [address] [place] [address] Interventional Radiology Rpt Signed Patient: Bhumika Umana JR MR#: [id number] : 1975 Acct:[id number] Age/Sex: 48 / M ADM Date: 03/23/24 Loc: Room: [address] [place] [address] Type: ADM IN Attending Dr: Simon Wolfe MD Copies to: DO Simon Aguirre MD Ordering Provider: Danial Horan DO Date of Service: 03/25/24 IR/IR guided lumbar puncture LP: CONCERN FOR DEMYELINATING SYNDROME FLUOROSCOPICALLY GUIDED LUMBAR PUNCTURE CLINICAL HISTORY: Upper extremity weakness. 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 Cumulative Air Kerma in mGy: 31.4 [...] Mert Ferreira M.D.03/25/2024 12:51 PM Dictation Location: [place] [address] Transcribed By: [facility] 03/25/24 1251 Dictated By: Mert Ferreira DO 03/25/24 1247 Signed By: 03/25/24 1251 Normal [facility] IgG [Mass/volume] in Cerebra l spinal fluidOrdered By: Danial Horan on 03-25-2024 IgG (CSF) [Mass/Vol] 6.0 mg/dL 0.0-10.3 [facility] IgG [Mass/volume] in Serum o r PlasmaOrdered By: Danial Horan on 03-25-2024 IgG [Mass/Vol] 868 mg/dL [phone] [facility] IgG synthesis rate [Mass/tonya e] in Serum and CSF by calculationOrdered By: Danial Horan on 03-25-2024 IgG synthesis rate Calc (S+CSF) [Mass/Time] 5.9 mg/day High -9.9 TO +3.3 [facility] Comment on above: Performed at: CB - [facility] [id number] [place], [place] [id number] Director: Gabriel Chan PhD, Phone: [phone] Rayshawn 03-25-2024 L Specimen: [id number] Received: 03/25/24 Status: MEDINA King Num: [id number] Spec Type: Cytology Subm Dr: Mert Ferreira DO Tissues: A CSF (CSF) Procedures: Cyto Prepstain, DIFF QWIK, PAPSTN Age/ Patient Sex Location Account Attending Physician Bhumika Umana JR 48/M 3T [id number] Simon Wolfe MD SPEC NUM: [id number] RECD: 03/25/24 STATUS: MEDINA KING NUM: [id number] SOL: 03/25/24 DR: Mert Ferreira DO ENTERED: 03/25/[address] [facility] [address]: Danial Horan DO SPEC TYPE: Cytology DEPT: CNG ENTERED BY: [id number] RECV BY: [id number] ORDERED: Cyto Prepstain, DIFF QWIK, PAPSTN ORDERED: Cyto Prepstain, DIFF QWIK, PAPSTN Pathological Diagnosis Cerebrospinal fluid: Negative for malignant cells. Clinical Information Bilateral hand weakness Gross Description Received is .5 ml pale pink hazy unfixed fluid for cytology said to have been obtained as spinal fluid. Cytospin slides are stained with Papanicolaou and Diff-Quik stains.(RI/fl) CPT Codes 61098 Specimen: [id number] Received: 03/25/24 Status: MEDINA King Num: [id number] Spec Type: Cytology Subm Dr: Mert Ferreira DO Tissues: A CSF (CSF) Procedures: Cyto Prepstain, DIFF QWIK, PAPSTN Patient: Bhumika Umana JR [id number] (Continued) Signed (signature on file) Jyoti Gary MD 03/26/24 1447 Normal [facility] MR cervical spine wo/w conon 03-25-2024 MR cervical spine wo/[place] [address] MRI Report Signed Patient: UmanaBhumika JR MR#: [id number] : 1975 Acct:[id number] Age/Sex: 48 / M ADM Date: 03/23/24 Loc: Room: [address] [place] [address] Type: ADM IN Attending Dr: Simon Wolfe [...] Pal Oconnor M.D.03/25/2024 12:45 PM Dictation Location: [place] [address] Transcribed By: [facility] 03/25/24 1245 Dictated By: Pal Oconnor II, MD 03/25/24 1237 Signed By: 03/25/24 1245 Normal [facility] Meningitis+Encephalitis path ogens DNA and RNA panel - Cerebral spinal fluid by BLAYNE wiOrdered By: Danial Horan on 03-25-2024 Meningitis+Encephalit is pathogens DNA and RNA panel BLAYNE+non-probe (CSF) [facility] No Panel InformationOrdered By: Danial Horan on 03-25-2024 CSF Myelin Basic Protein 2.7 ng/mL 0.0-4.7 [facility] Comment on above: Results of this test are labeled for research purposes onlyby the assay's product mgmt dev manager. The performancecharacteristics of this assay have not been established bythe product mgmt dev manager. The result should not be used fortreatment or for diagnostic purposes without confirmationof the diagnosis by another medically establisheddiagnostic product or procedure. The performancecharacteristics were determined by [employer].Performed at: [facility] [id number] Director: Mariano Jean MD, Phone: [phone] CSF Tube Number Tube number: 3 [facility] Partial Thromboplastin Timeo n 03-25-2024 aPTT Coag (Bld) [Time] 30.2 s Normal 25.1-36.5 [facility] Comment on above: Result Comment: A he matocrit value greater than 55% may lead to inaccurate results in coagulation testing. Patients having hematocrit values >55% require a special collection tube for coagulation studies. Please contact the laboratory at [phone] for redraw instructions. PERFORMED BY: [facility] [address] [place] [address] PATHOLOGIST OPERATIONS OFFICER MARLYN MCKEON M.D. Performed By: #### G LULS #### Point of Care testing , Protein [Mass/volume] in Cer ebral spinal fluidOrdered By: Danial Horan on 03-25-2024 Protein (CSF) [Mass/Vol] 84 mg/dL High 15-45 [facility] Protein fractions.oligoclona l bands.intrathecal [Presence] in Serum and CSFOrdered By: Danial Horan on 03-25-2024 Protein fractions.oligoclonal bands.intrathecal Ql (S+CSF) Comment . [facility] Comment on above: Zero (0) oligoclonal [...] using IsoelectricFocusing (IEF) and immunoblotting methodology.Performed at: [facility] [id number] Director: Gabriel Chan PhD, Phone: [phone] Prothrombin time (PT)Ordered By: Danial Horan on 03-25-2024 PT Coag (PPP) [Time] 11.1 s Normal 9.0-12.9 [facility] Comment on above: A hematocrit value g reater than 55% may lead to inaccurate results in coagulation testing. Patients having hematocrit values >55% require a special collection tube for coagulation studies. Please contact the laboratory at [phone] for redraw instructions. Result Comment: A he matocrit value greater than 55% may lead to inaccurate results in coagulation testing. Patients having hematocrit values >55% require a special collection tube for coagulation studies. Please contact the laboratory at [phone] for redraw instructions. Performed By: #### G LULS #### Point of Care testing , Total Protein, CSF #2on 07-2 Total Protein, CSF #2 84 mg/dL High 15-45 [facility] Comment on above: Order Comment: Comme nt Tube 3 Result Comment: PERF ORMED BY: [place] [address] PATHOLOGIST OPERATIONS OFFICER MARLYN MCKEON M.D. Performed By: #### C BC, MG, PHOS, CMP #### [place] [address] [place] Total Protein, Spinal Fluido n 03-25-2024 Total Protein, Spinal Fluid 116 mg/dL High 15-45 [facility] Comment on above: Order Comment: Comme nt Tube 1 Result Comment: PERF ORMED BY: [place] [address] PATHOLOGIST OPERATIONS OFFICER MARLYN MCKEON M.D. Performed By: #### C BC, MG, PHOS, CMP #### [place] [address] [place] Alanine aminotransferase [En zymatic activity/volume] in Serum or PlasmaOrdered By: Elder Iyer on 03-24-2024 ALT [Catalytic activity/Vol] 24 U/L Normal 7-52 [facility] Comment on above: Performed By: #### C BC, MG, PHOS, CMP #### [place] [address] [place] Albumin [Mass/volume] in Ser um or Plasma by Bromocresol green (BCG) dye binding methoOrdered By: Elder Iyer on 03-24-2024 Albumin BCG dye [Mass/Vol] 4.1 g/dL 3.5-5.7 [facility] Alkaline phosphatase [Enzyma tic activity/volume] in Serum or PlasmaOrdered By: Elder Iyer on 03-24-2024 ALP [Catalytic activity/Vol] 59 U/L Normal 34-104 [facility] Comment on above: Performed By: #### C BC, MG, PHOS, CMP #### [address] Aspartate aminotransferase [ Enzymatic activity/volume] in Serum or PlasmaOrdered By: Elder Iyer on 03-24-2024 AST [Catalytic activity/Vol] 14 U/L Normal 13-39 [facility] Comment on above: Performed By: #### C BC, MG, PHOS, CMP #### [address] Automated basophil %Ordered By: Elder Iyer on 03-24-2024 Basophils/100 WBC (Bld) 0.5 % Normal . [facility] Comment on above: Performed By: #### C BC, MG, PHOS, CMP #### [address] Automated basophil countOrde red By: Elder Iyer on 03-24-2024 Basophils (Bld) [#/Vol] 0.1 10*3/uL Normal 0.0-0.2 [facility] Comment on above: Result Comment: PERF ORMED BY: [place] [address] PATHOLOGIST OPERATIONS OFFICER MARLYN MCKEON M.D. Performed By: #### C BC, MG, PHOS, CMP #### [address] Automated blood monocyte cou ntOrdered By: Elder Iyer on 03-24-2024 Monocytes (Bld) [#/Vol] 1.5 10*3/uL High 0.0-0.8 [facility] Comment on above: Performed By: #### C BC, MG, PHOS, CMP #### [address] Automated eosinophil %Ordere d By: Elder Iyer on 03-24-2024 Eosinophils/100 WBC (Bld) 0.6 % Normal . [facility] Comment on above: Performed By: #### C BC, MG, PHOS, CMP #### [address] Automated eosinophil countOr dered By: Elder Iyer on 03-24-2024 Eosinophils (Bld) [#/Vol] 0.1 10*3/uL Normal 0.0-0.45 [facility] Comment on above: Performed By: #### C BC, MG, PHOS, CMP #### [address] Automated monocyte %Ordered By: Elder Iyer on 03-24-2024 Monocytes/100 WBC (Bld) 8.3 % Normal . [facility] Comment on above: Performed By: #### C BC, MG, PHOS, CMP #### [address] Automated neutrophil %Ordere d By: Elder Iyer on 03-24-2024 Neutrophils/100 WBC (Bld) 57.7 % Normal . [facility] Comment on above: Performed By: #### C BC, MG, PHOS, CMP #### [address] Bilirubin.total [Mass/volume ] in Serum or PlasmaOrdered By: Elder Iyer on 03-24-2024 Bilirubin [Mass/Vol] 0.8 mg/dL Normal 0.3-1.0 [facility] Comment on above: Performed By: #### C BC, MG, PHOS, CMP #### [address] Calcium [Mass/volume] in Ser um or PlasmaOrdered By: Elder Iyer on 03-24-2024 Calcium [Mass/Vol] 8.8 mg/dL Normal 8.6-10.3 [facility] Comment on above: Performed By: #### C BC, MG, PHOS, CMP #### [facility] [address] [place] [address] Carbon dioxide, total [Moles /volume] in Serum or PlasmaOrdered By: Elder Iyer on 03-24-2024 CO2 [Moles/Vol] 28.6 mmol/L Normal 21.0-31.0 [facility] Comment on above: Performed By: #### C BC, MG, PHOS, CMP #### [address] Chloride [Moles/volume] in S vandana or PlasmaOrdered By: Elder Iyer on 03-24-2024 Chloride [Moles/Vol] 101 mmol/L Normal 98-107 [facility] Comment on above: Performed By: #### C BC, MG, PHOS, CMP #### [address] Complete Blood Count Auto Di ffon 03-24-2024 Mean Corpuscular HGB Conc 33.3 g/dL Normal 32.5-35.6 [facility] Comment on above: Performed By: #### C BC, MG, PHOS, CMP #### [address] NRBC% 0.2 /100{WBC} Normal 0-0.5 [facility] Comment on above: Performed By: #### C BC, MG, PHOS, CMP #### [address] Comprehensive Metabolic Pane rayshawn 03-24-2024 Albumin [Mass/Vol] 4.1 g/dL Normal 3.5-5.7 [facility] Comment on above: Performed By: #### C BC, MG, PHOS, CMP #### [address] Creatinine Clr Calc Pharmacy 164.23 Normal [facility] Comment on above: Performed By: #### C BC, MG, PHOS, CMP #### [place] [address] [place] GFR/1.73 sq M.predicted MDRD (S/P/Bld) [Vol rate/Area] mL/min/{1.73_m2} Normal [facility] Comment on above: Performed By: #### C BC, MG, PHOS, CMP #### [address] Creatinine [Mass/volume] in Serum or PlasmaOrdered By: Elder Iyer on 03-24-2024 Creatinine [Mass/Vol] 0.88 mg/dL Normal 0.70-1.30 [facility] Comment on above: Performed By: #### C BC, MG, PHOS, CMP #### [address] Erythrocyte distribution wid th [Ratio] by Automated countOrdered By: Elder Iyer on 03-24-2024 Erythrocyte distribution width (RBC) [Ratio] 13.8 % Normal 12.0-14.8 [facility] Comment on above: Performed By: #### C BC, MG, PHOS, CMP #### [address] Erythrocytes [#/volume] in B lood by Automated countOrdered By: Elder Iyer on 03-24-2024 RBC (Bld) [#/Vol] 5.07 10*6/uL Normal 3.90-5.60 [facility] Comment on above: Performed By: #### C BC, MG, PHOS, CMP #### [address] Glucose Poct Glucometerson 0 03-24-2024 Glucose [Mass/Vol] 162 mg/dL Normal [facility] Comment on above: Result Comment: [place] Glucose Reference Range is dependent on time and content of last meal. Glucose of more than 200 mg/dL in a nonstressed, ambulatory subject supports the diagnosis of Diabetes Mellitus. PERFORMED BY: [place] [address] PATHOLOGIST OPERATIONS OFFICER MARLYN MCKEON M.D. Performed By: #### C BC, MG, PHOS, CMP #### [address] Commemt1 Glu2: Cleaned Meter Normal [facility] Comment on above: Result Comment: PERF ORMED BY: [place] [address] PATHOLOGIST OPERATIONS OFFICER MARLYN MCKEON M.D. Performed By: #### G LULS #### Point of Care testing , Glucose [Mass/Vol] 114 mg/dL Normal [facility] Comment on above: Result Comment: [place] om Glucose Reference Range is dependent on time and content of last meal. Glucose of more than 200 mg/dL in a nonstressed, ambulatory subject supports the diagnosis of Diabetes Mellitus. Performed By: #### G LULS #### Point of Care testing , Commemt1 Glu2: Cleaned Meter Normal [facility] Comment on above: Result Comment: PERF ORMED BY: [place] [address] PATHOLOGIST OPERATIONS OFFICER MARLYN MCKEON M.D. Performed By: #### B MP, MG, CBC #### [facility] [address] [place] [address] Glucose [Mass/Vol] 126 mg/dL Normal [facility] Comment on above: Result Comment: [place] om Glucose Reference Range is dependent on time and content of last meal. Glucose of more than 200 mg/dL in a nonstressed, ambulatory subject supports the diagnosis of Diabetes Mellitus. Performed By: #### B MP, MG, CBC #### [address] Glucose [Mass/Vol] 128 mg/dL Normal [facility] Comment on above: Result Comment: [place] om Glucose Reference Range is dependent on time and content of last meal. Glucose of more than 200 mg/dL in a nonstressed, ambulatory subject supports the diagnosis of Diabetes Mellitus. PERFORMED BY: [place] [address] PATHOLOGIST OPERATIONS OFFICER MARLYN MCKEON M.D. Performed By: #### G LULS #### Point of Care testing , Glucose [Mass/Vol] 125 mg/dL Normal [facility] Comment on above: Result Comment: [place] om Glucose Reference Range is dependent on time and content of last meal. Glucose of more than 200 mg/dL in a nonstressed, ambulatory subject supports the diagnosis of Diabetes Mellitus. PERFORMED BY: [place] [address] PATHOLOGIST OPERATIONS OFFICER MARLYN MCKEON M.D. Performed By: #### G LULS #### Point of Care testing , Glucose [Mass/volume] in Ser um or PlasmaOrdered By: Elder Iyer on 03-24-2024 Glucose [Mass/Vol] 136 mg/dL Significant change up 70-100 [facility] Comment on above: Delta: 241 on -[id number] recommended reference rangeRandom Glucose Reference Range is dependent on time and content of last meal. Glucose of more than 200 mg/dL in a nonstressed, ambulatory subject supports the diagnosis of Diabetes Mellitus. Result Comment: [place] Glucose Reference Range is dependent on time and content of last meal. Glucose of more than 200 mg/dL in a nonstressed, ambulatory subject supports the diagnosis of Diabetes Mellitus. ADA recommended reference range Performed By: #### C BC, MG, PHOS, CMP #### [facility] [address] [place] [address] Hematocrit [Volume Fraction] of Blood by Automated countOrdered By: Elder Iyer on 03-24-2024 Hematocrit (Bld) [Volume fraction] 44.7 % Normal 38.8-50.0 [facility] Comment on above: Performed By: #### C BC, MG, PHOS, CMP #### [facility] [address] [place] [address] Hemoglobin [Mass/volume] in BloodOrdered By: Elder Iyer on 03-24-2024 Hemoglobin (Bld) [Mass/Vol] 14.9 g/dL Normal 13.0-17.0 [facility] Comment on above: Performed By: #### C BC, MG, PHOS, CMP #### [facility] [address] [place] [address] [place] Leukocytes [#/volume] correc elizabeth for nucleated erythrocytes in Blood by Automated counOrdered By: Elder Iyer on 03-24-2024 WBC corrected for nucl RBC Auto (Bld) [#/Vol] 18.2 10*3/uL High 4.1-10.5 [facility] Leukocytes [#/volume] in Blo od by Automated countOrdered By: Elder Iyer on 03-24-2024 WBC (Bld) [#/Vol] 18.2 10*3/uL High 4.1-10.5 [facility] Comment on above: Performed By: #### C BC, MG, PHOS, CMP #### [address] Lymphocytes [#/volume] in Bl ood by Automated countOrdered By: Elder Iyer on 03-24-2024 Lymphocytes (Bld) [#/Vol] 6.0 10*3/uL High 1.00-4.8 [facility] Comment on above: Performed By: #### C BC, MG, PHOS, CMP #### [address] Lymphocytes/100 leukocytes i n Blood by Automated countOrdered By: Elder Iyer on 03-24-2024 Lymphocytes/100 WBC (Bld) 32.9 % Normal . [facility] Comment on above: Performed By: #### C BC, MG, PHOS, CMP #### [address] MCH [Entitic mass] by Automa elizabeth countOrdered By: Elder Iyer on 03-24-2024 MCH (RBC) [Entitic mass] 29.3 pg Normal 27.5-35.2 [facility] Comment on above: Performed By: #### C BC, MG, PHOS, CMP #### [address] MCHC Auto (RBC) [Mass/Vol]Or dered By: Elder Iyer on 03-24-2024 MCHC (RBC) [Mass/Vol] 33.3 g/dL 32.5-35.6 [facility] MCV [Entitic volume] by Auto mated countOrdered By: Elder Iyer on 03-24-2024 MCV (RBC) [Entitic vol] 88.2 fL Normal 83.5-101 [facility] Comment on above: Performed By: #### C BC, MG, PHOS, CMP #### [address] Magnesium [Mass/volume] in S vandana or PlasmaOrdered By: Elder Iyer on 03-24-2024 Magnesium [Mass/Vol] 2.1 mg/dL Normal 1.9-2.7 [facility] Comment on above: Result Comment: PERF ORMED BY: [place] [address] PATHOLOGIST OPERATIONS OFFICER MARLYN MCKEON M.D. Performed By: #### C BC, MG, PHOS, CMP #### [facility] [address] [place] [address] Neutrophils [#/volume] in Bl ood by Automated countOrdered By: Elder Iyer on 03-24-2024 Neutrophils (Bld) [#/Vol] 10.5 10*3/uL High 1.8-7.7 [facility] Comment on above: Performed By: #### C BC, MG, PHOS, CMP #### [facility] [address] [place] [address] No Panel InformationOrdered By: Elder Iyer on 03-24-2024 Bedside Glucose Comment Glu2: cleaned meter [facility] Estimated GFR (CKD-EPI) > 60.0 mL/Min [facility] Creatinine Clearance (Chem 164.23 [facility] Nucleated erythrocytes [Pres ence] in Blood by Automated countOrdered By: Elder Iyer on 03-24-2024 Nucleated RBC Auto Ql (Bld) 0.2 /100{WBC} 0-0.5 [facility] Phosphate [Mass/volume] in S vandana or PlasmaOrdered By: Eldre Iyer on 03-24-2024 Phosphate [Mass/Vol] 4.2 mg/dL Normal 2.5-4.5 [facility] Comment on above: Performed By: #### C BC, MG, PHOS, CMP #### [facility] [address] [place] [address] Platelet mean volume [Entiti c volume] in Blood by Automated countOrdered By: Elder Iyer on 03-24-2024 Platelet mean volume (Bld) [Entitic vol] 7.6 fL Normal 6.6-10.1 [facility] Comment on above: Performed By: #### C BC, MG, PHOS, CMP #### [facility] [address] [place] [address] Platelets [#/volume] in Bloo d by Automated countOrdered By: Elder Iyer on 03-24-2024 Platelets (Bld) [#/Vol] 364 10*3/uL Normal 150-450 [facility] Comment on above: Performed By: #### C BC, MG, PHOS, CMP #### [address] Potassium [Moles/volume] in Serum or PlasmaOrdered By: Elder Iyer on 03-24-2024 Potassium [Moles/Vol] 3.9 mmol/L Normal 3.5-5.1 [facility] Comment on above: Performed By: #### C BC, MG, PHOS, CMP #### [facility] [address] [place] [address] Protein [Mass/volume] in Ser um or PlasmaOrdered By: Elder Iyer on 03-24-2024 Protein [Mass/Vol] 6.5 g/dL Normal 6.4-8.9 [facility] Comment on above: Performed By: #### C BC, MG, PHOS, CMP #### [address] Serum globulin measurement b y calculation (mass/volume)Ordered By: Elder Iyer on 03-24-2024 Globulin (S) [Mass/Vol] 2.4 g/dL [facility] Comment on above: Performed By: #### C BC, MG, PHOS, CMP #### [facility] [address] [place] [address] Serum or plasma albumin/glob ulin mass ratioOrdered By: Elder Iyer on 03-24-2024 Albumin/Globulin [Mass ratio] 1.7 {ratio} [facility] Comment on above: Performed By: #### C BC, MG, PHOS, CMP #### [address] Serum or plasma anion gap de terminationOrdered By: Elder Iyer on 03-24-2024 Anion gap [Moles/Vol] 12.3 mmol/L Normal 6.0-15.0 [facility] Comment on above: Performed By: #### C BC, MG, PHOS, CMP #### [facility] [address] Sodium [Moles/volume] in Ser um or PlasmaOrdered By: Elder Iyer on 03-24-2024 Sodium [Moles/Vol] 138 mmol/L Significant change down 136-145 [facility] Comment on above: Delta: 132 on Performed By: #### C BC, MG, PHOS, CMP #### [address] Urea nitrogen [Mass/volume] in Serum or PlasmaOrdered By: Elder Iyer on 03-24-2024 Urea nitrogen [Mass/Vol] 25 mg/dL Normal 7-25 [facility] Comment on above: Performed By: #### C BC, MG, PHOS, CMP #### [facility] [address] [place] [address] [place] A1C with Estimated Average Magdalena maryann 03-23-2024 Glucose [Mass/Vol] 166 mg/dL Normal [facility] Comment on above: Result Comment: PERF ORMED BY: [place] [address] PATHOLOGIST OPERATIONS OFFICER MARLYN MCKEON M.D. Performed By: #### G LULS #### Point of Care testing , BNP ser/plasOrdered By: Veronika Gonzales on 03-23-2024 Natriuretic peptide B (Bld) [Mass/Vol] 27.0 pg/mL Normal 5-100 [facility] Comment on above: Result Comment: PERF ORMED BY: [place] [address] PATHOLOGIST OPERATIONS OFFICER MARLYN MCKEON M.D. Performed By: #### C BC, MG, PHOS, CMP #### [facility] [address] [place] [address] [facility] Basic Metabolic Panelon 07-2 Anion gap [Moles/Vol] 16.0 mmol/L High 6.0-15.0 [facility] Comment on above: Performed By: #### G LULS #### Point of Care testing , Calcium [Mass/Vol] 9.2 mg/dL Normal 8.6-10.3 [facility] Comment on above: Performed By: #### G LULS #### Point of Care testing , Chloride [Moles/Vol] 97 mmol/L Low 98-107 [facility] Comment on above: Performed By: #### G LULS #### Point of Care testing , CO2 [Moles/Vol] 23.4 mmol/L Normal 21.0-31.0 [facility] Comment on above: Performed By: #### G LULS #### Point of Care testing , Creatinine [Mass/Vol] 0.75 mg/dL Normal 0.70-1.30 [facility] Comment on above: Performed By: #### G LULS #### Point of Care testing , Creatinine Clr Calc Pharmacy 195.42 Normal [facility] Comment on above: Performed By: #### G LULS #### Point of Care testing , GFR/1.73 sq M.predicted MDRD (S/P/Bld) [Vol rate/Area] mL/min/{1.73_m2} Normal [facility] Comment on above: Performed By: #### G LULS #### Point of Care testing , Glucose [Mass/Vol] 241 mg/dL Significant change up 70-100 [facility] Comment on above: Result Comment: [place] Glucose Reference Range is dependent on time and content of last meal. Glucose of more than 200 mg/dL in a nonstressed, ambulatory subject supports the diagnosis of Diabetes Mellitus. ADA recommended reference range Performed By: #### G LULS #### Point of Care testing , Potassium [Moles/Vol] 4.4 mmol/L Normal 3.5-5.1 [facility] Comment on above: Performed By: #### G LULS #### Point of Care testing , Sodium [Moles/Vol] 132 mmol/L Low 136-145 [facility] Comment on above: Performed By: #### G LULS #### Point of Care testing , Urea nitrogen [Mass/Vol] 22 mg/dL Normal 7-25 [facility] Comment on above: Performed By: #### G LULS #### Point of Care testing , Anion gap [Moles/Vol] 17.4 mmol/L High 6.0-15.0 [facility] Comment on above: Performed By: #### C BC, MG, PHOS, CMP #### [address] Calcium [Mass/Vol] 9.4 mg/dL Normal 8.6-10.3 [facility] Comment on above: Performed By: #### C BC, MG, PHOS, CMP #### [address] Chloride [Moles/Vol] 97 mmol/L Low 98-107 [facility] Comment on above: Performed By: #### C BC, MG, PHOS, CMP #### [address] CO2 [Moles/Vol] 23.2 mmol/L Normal 21.0-31.0 [facility] Comment on above: Performed By: #### C BC, MG, PHOS, CMP #### [place] [address] [place] Creatinine [Mass/Vol] 0.82 mg/dL Normal 0.70-1.30 [facility] Comment on above: Performed By: #### C BC, MG, PHOS, CMP #### [facility] [address] [place] [address] [place] Creatinine Clr Calc Pharmacy 178.94 Normal [facility] Comment on above: Result Comment: PERF ORMED BY: [place] [address] PATHOLOGIST OPERATIONS OFFICER MARLYN MCKEON M.D. Performed By: #### C BC, MG, PHOS, CMP #### [address] [place] [address] [place] GFR/1.73 sq M.predicted MDRD (S/P/Bld) [Vol rate/Area] mL/min/{1.73_m2} Normal [facility] Comment on above: Performed By: #### C BC, MG, PHOS, CMP #### [facility] [address] Glucose [Mass/Vol] 342 mg/dL High 70-100 [facility] Comment on above: Result Comment: [facility] [place] Glucose Reference Range is dependent on time and content of last meal. Glucose of more than 200 mg/dL in a nonstressed, ambulatory subject supports the diagnosis of Diabetes Mellitus. ADA recommended reference range Performed By: #### C BC, MG, PHOS, CMP #### [facility] [address] Potassium [Moles/Vol] 4.6 mmol/L Normal 3.5-5.1 [facility] Comment on above: Performed By: #### C BC, MG, PHOS, CMP #### [address] Sodium [Moles/Vol] 133 mmol/L Low 136-145 [facility] Comment on above: Performed By: #### C BC, MG, PHOS, CMP #### [facility] [address] Urea nitrogen [Mass/Vol] 23 mg/dL Normal 7-25 [facility] Comment on above: Performed By: #### C BC, MG, PHOS, CMP #### [address] Borrelia burgdorferi IgG+IgM Ab [Presence] in Serum by ImmunoassayOrdered By: Danial Horan on 03-23-2024 B. burgdorferi IgG+IgM IA Ql (S) Negative Negative [facility] Comment on above: Lyme antibodies not detected. Reflex testing is notindicated.No laboratory evidence of infection with B. burgdorferi(Lyme disease). Negative results may occur in patientsrecently infected (less than or equal to 14 days) with B.burgdorferi. If recent infection is suspected, repeattesting on a new sample collected in 7 to 14 days isrecommended.Performed at: - [facility] [id number] [place], [place] [id number] Director: Gabriel Chan PhD, Phone: [phone] C reactive protein [Mass/vol ume] in Serum or PlasmaOrdered By: Danial Horan on 03-23-2024 CRP [Mass/Vol] < 0.5 mg/dL 0.0-0.5 [facility] C-Reactive Proteinon 024 CRP [Mass/Vol] mg/L Normal 0.0-0.5 [facility] Comment on above: Result Comment: PERF ORMED BY: [place] [address] PATHOLOGIST OPERATIONS OFFICER MARLYN MCKEON M.D. Performed By: #### G LULS #### Point of Care testing , Complete Blood Count Auto Di ffon 03-23-2024 Basophils (Bld) [#/Vol] 0.1 10*3/uL Normal 0.0-0.2 [facility] Comment on above: Result Comment: PERF ORMED BY: [place] [address] PATHOLOGIST OPERATIONS OFFICER MARLYN MCKEON M.D. Performed By: #### C BC, MG, PHOS, CMP #### [facility] [address] [place] [address] Basophils/100 WBC (Bld) 0.5 % Normal . [facility] Comment on above: Performed By: #### C BC, MG, PHOS, CMP #### [facility] [address] [place] [address] [place] Eosinophils (Bld) [#/Vol] 0.0 10*3/uL Normal 0.0-0.45 [facility] Comment on above: Performed By: #### C BC, MG, PHOS, CMP #### [facility] [address] [place] [address] [place] Eosinophils/100 WBC (Bld) 0.0 % Normal . [facility] Comment on above: Performed By: #### C BC, MG, PHOS, CMP #### [address] Erythrocyte distribution width (RBC) [Ratio] 13.9 % Normal 12.0-14.8 [facility] Comment on above: Performed By: #### C BC, MG, PHOS, CMP #### [address] Hematocrit (Bld) [Volume fraction] 47.0 % Normal 38.8-50.0 [facility] Comment on above: Performed By: #### C BC, MG, PHOS, CMP #### [address] Hemoglobin (Bld) [Mass/Vol] 15.9 g/dL Normal 13.0-17.0 [facility] Comment on above: Performed By: #### C BC, MG, PHOS, CMP #### [address] Lymphocytes (Bld) [#/Vol] 1.4 10*3/uL Normal 1.00-4.8 [facility] Comment on above: Performed By: #### C BC, MG, PHOS, CMP #### [address] Lymphocytes/100 WBC (Bld) 8.2 % Normal . [facility] Comment on above: Performed By: #### C BC, MG, PHOS, CMP #### [address] MCH (RBC) [Entitic mass] 29.8 pg Normal 27.5-35.2 [facility] Comment on above: Performed By: #### C BC, MG, PHOS, CMP #### [address] MCV (RBC) [Entitic vol] 88.1 fL Normal 83.5-101 [facility] Comment on above: Performed By: #### C BC, MG, PHOS, CMP #### [address] Mean Corpuscular HGB Conc 33.8 g/dL Normal 32.5-35.6 [facility] Comment on above: Performed By: #### C BC, MG, PHOS, CMP #### [address] Monocyte Distribution Width Not performed Normal 0.00-20.00 [facility] Comment on above: Result Comment: Unab le to calculate MDW because the Absolute Monocyte Count is <0.8. Performed By: #### C BC, MG, PHOS, CMP #### [address] Monocytes (Bld) [#/Vol] 0.2 10*3/uL Normal 0.0-0.8 [facility] Comment on above: Performed By: #### C BC, MG, PHOS, CMP #### [address] Monocytes/100 WBC (Bld) 1.0 % Normal . [facility] Comment on above: Performed By: #### C BC, MG, PHOS, CMP #### [address] Neutrophils (Bld) [#/Vol] 15.5 10*3/uL High 1.8-7.7 [facility] Comment on above: Performed By: #### C BC, MG, PHOS, CMP #### [address] Neutrophils/100 WBC (Bld) 90.3 % Normal . [facility] Comment on above: Performed By: #### C BC, MG, PHOS, CMP #### [address] NRBC% 0.1 /100{WBC} Normal 0-0.5 [facility] Comment on above: Performed By: #### C BC, MG, PHOS, CMP #### [address] Platelet mean volume (Bld) [Entitic vol] 7.4 fL Normal 6.6-10.1 [facility] Comment on above: Performed By: #### C BC, MG, PHOS, CMP #### [address] Platelets (Bld) [#/Vol] 381 10*3/uL Normal 150-450 [facility] Comment on above: Performed By: #### C BC, MG, PHOS, CMP #### [address] RBC (Bld) [#/Vol] 5.33 10*6/uL Normal 3.90-5.60 [facility] Comment on above: Performed By: #### C BC, MG, PHOS, CMP #### [address] WBC (Bld) [#/Vol] 17.1 10*3/uL High 4.1-10.5 [facility] Comment on above: Performed By: #### C BC, MG, PHOS, CMP #### [address] Creatine Kinaseon 03-23-2024 CK [Catalytic activity/Vol] 37 U/L Normal 30-223 [facility] Comment on above: Performed By: #### C BC, MG, PHOS, CMP #### [address] Creatine kinase [Enzymatic a ctivity/volume] in Serum or PlasmaOrdered By: Danial Horan on 03-23-2024 CK [Catalytic activity/Vol] 34 U/L Normal 30-223 [facility] Comment on above: Result Comment: PERF ORMED BY: [place] [address] PATHOLOGIST OPERATIONS OFFICER MARLYN MCKEON M.D. Performed By: #### G MARGARITA #### Point of Care testing , ECG 12 lead ECGon 03-23-2024 ECG 12 lead ECG [facility] [place] [address] [place] [address] Electrocardiograph Report Signed Patient: Bhumika Umana JR MR#: [id number] : 1975 Acct:[id number] Age/Sex: 48 / M ADM Date: 03/23/24 Loc: ER Room: Type: [facility] ER Attending Dr: Ordering Provider: [...] ECGs available Confirmed by Gale Gonzales MD ([id number]) on 03/23/2024 2:06:14 AM Referred By: Electronically Signed By: Gale Gonzales MD Transcribed By: MUS Signed By Gale Gonzales MD 02/26 03/20 0206 Normal [facility] Erythrocyte Sedimentation Ra devaughn 03-23-2024 ESR (Bld) [Velocity] 14 mm/h Normal 0-14 [facility] Comment on above: Result Comment: PERF ORMED BY: [facility] [address] [place] [address] PATHOLOGIST OPERATIONS OFFICER MARLYN MCKEON M.D. Performed By: #### G LULS #### Point of Care testing , Erythrocyte sedimentation ra te by Photometric methodOrdered By: Danial Horan on 03-23-2024 ESR Photometric method (Bld) [Velocity] 14 mm/hr 0-14 [facility] Folate [Mass/volume] in Seru m or PlasmaOrdered By: Bola Garcia on 03-23-2024 Folate [Mass/Vol] 13.0 ng/mL >5.9 [facility] Comment on above: Folate reference ran ge: >5.9 ng/mlThe WHO technical consultation on folate and vitamin [id number] has determined that folate concentrations lessthan 4 ng/ml are considered deficient. Glucose Poct Glucometerson 0 03-23-2024 Commemt1 Glu2: Cleaned Meter Normal [facility] Comment on above: Result Comment: PERF ORMED BY: [facility] [address] [place] [address] PATHOLOGIST OPERATIONS OFFICER MARLYN MCKEON M.D. Performed By: #### C BC, MG, PHOS, CMP #### [facility] [address] Glucose [Mass/Vol] 166 mg/dL Normal [facility] Comment on above: Result Comment: Vaughn om Glucose Reference Range is dependent on time and content of last meal. Glucose of more than 200 mg/dL in a nonstressed, ambulatory subject supports the diagnosis of Diabetes Mellitus. Performed By: #### C BC, MG, PHOS, CMP #### [facility] [address] Glucose [Mass/Vol] 133 mg/dL Normal [facility] Comment on above: Result Comment: [place] om Glucose Reference Range is dependent on time and content of last meal. Glucose of more than 200 mg/dL in a nonstressed, ambulatory subject supports the diagnosis of Diabetes Mellitus. PERFORMED BY: [place] [address] PATHOLOGIST OPERATIONS OFFICER MARLYN MCKEON M.D. Performed By: #### G LULS #### Point of Care testing , Glucose [Mass/Vol] 180 mg/dL Normal [facility] Comment on above: Result Comment: [place] om Glucose Reference Range is dependent on time and content of last meal. Glucose of more than 200 mg/dL in a nonstressed, ambulatory subject supports the diagnosis of Diabetes Mellitus. PERFORMED BY: [address] [place] [address] PATHOLOGIST OPERATIONS OFFICER MARLYN MCKEON M.D. Performed By: #### G LULS #### Point of Care testing , Glucose [Mass/Vol] 216 mg/dL Normal [facility] Comment on above: Result Comment: [place] om Glucose Reference Range is dependent on time and content of last meal. Glucose of more than 200 mg/dL in a nonstressed, ambulatory subject supports the diagnosis of Diabetes Mellitus. PERFORMED BY: [address] [place] [address] PATHOLOGIST OPERATIONS OFFICER MARLYN MCKEON M.D. Performed By: #### G LULS #### Point of Care testing , Commemt1 Glu2: Cleaned Meter Normal [facility] Comment on above: Result Comment: PERF ORMED BY: [place] [address] PATHOLOGIST OPERATIONS OFFICER MARLYN MCKEON M.D. Performed By: #### C BC, MG, PHOS, CMP #### [facility] [address] [place] [address] Glucose [Mass/Vol] 362 mg/dL Normal [facility] Comment on above: Result Comment: [facility] [place] Glucose Reference Range is dependent on time and content of last meal. Glucose of more than 200 mg/dL in a nonstressed, ambulatory subject supports the diagnosis of Diabetes Mellitus. Performed By: #### C BC, MG, PHOS, CMP #### [facility] [address] [place] [address] Glucose mean value [Mass/vol ume] in Blood Estimated from glycated hemoglobinOrdered By: Bola Garcia on 03-23-2024 Average glucose Estimated from glycated hemoglobin (Bld) [Mass/Vol] 166 mg/dL [facility] Hemoglobin A1c percentageOrd ered By: Bola Garcia on 03-23-2024 HbA1c (Bld) [Mass fraction] 7.4 % High 4.3-5.6 [facility] Comment on above: Increased risk for d iabetes: 5.7 - 6.4diabetes: >6.4glycemic control for adults with diabetes: <7.0 Result Comment: Incr eased risk for diabetes: 5.7 - 6.4 diabetes: >6.4 glycemic control for adults with diabetes: <7.0 Performed By: #### G LULS #### Point of Care testing , Lyme, Total Ab with Reflexon 03-23-2024 Lyme Total Antibody Negative Normal Negative [facility] Comment on above: Result Comment: [...] 14 days is recommended. Performed at: - [facility] [id number] Delivery Driver Assistant: Gabriel Chan PhD, Phone: [phone] PERFORMED BY: [place] [address] PATHOLOGIST OPERATIONS OFFICER MARLYN MCKEON M.D. Performed By: #### G LUMONTRELL #### Point of Care testing , MR head/brain wo/w conon MR head/brain wo/w con [facility] [place] [address] [place] [address] MRI Report Signed Patient: Bhumika Umana JR MR#: [id number] : 1975 Acct:[id number] Age/Sex: 48 / M ADM Date: 03/23/24 Loc: 3T Room: [address] [place] [address] Type: ADM IN Attending Dr: Elder Iyer [...] excluded. Impression dictated by: Rene Gonzales Jr., Geoff03/23/2024 10:46 AM Dictation Location: [place] [address] Transcribed By: [facility] 03/23/24 1046 Dictated By: Rene Gonzales Jr, DO 03/23/24 1039 Signed By: 03/23/24 1046 Normal [facility] Monocyte distribution width [Entitic volume] in Blood by AutomatedOrdered By: Gale Gonzales on 03-23-2024 Monocyte distribution width Auto (Bld) [Entitic vol] Test not performed % 0.00-20.00 [facility] Comment on above: Unable to calculate MDW because the Absolute Monocyte Count is <0.8. Partial Thromboplastin Timeo n 03-23-2024 aPTT Coag (Bld) [Time] 22.2 s Low 25.1-36.5 [facility] Comment on above: Result Comment: A he matocrit value greater than 55% may lead to inaccurate results in coagulation testing. Patients having hematocrit values >55% require a special collection tube for coagulation studies. Please contact the laboratory at [phone] for redraw instructions. PERFORMED BY: [place] [address] PATHOLOGIST OPERATIONS OFFICER MARLYN MCKEON M.D. Performed By: #### C MG RADHA, PHOS, CMP #### [facility] [address] [place], [place] [id number] [facility] Prothrombin Time INRon 03-23 INR Coag (PPP) [Relative time] 1.0 {INR} Normal [facility] Comment on above: Result Comment: [...] #### C BC, MG, PHOS, CMP #### [facility] [address] [id number] [facility] PT Coag (PPP) [Time] 11.7 s Normal 9.0-12.9 [facility] Comment on above: Result Comment: A he matocrit value greater than 55% may lead to inaccurate results in coagulation testing. Patients having hematocrit values >55% require a special collection tube for coagulation studies. Please contact the laboratory at [phone] for redraw instructions. Performed By: #### C BC, MG, PHOS, CMP #### [facility] [address] [place] [address] Thyrotropin [Units/volume] i n Serum or PlasmaOrdered By: Bola Garcia on 03-23-2024 TSH Qn 0.48 m[IU]/L Normal 0.45-5.33 [facility] Comment on above: Performed By: #### G LULS #### Point of Care testing , Troponin I High Sensitivityo n 03-23-2024 Troponin I High Sensitivity 3.3 pg/mL Normal 0.0-20.0 [facility] Comment on above: Result Comment: PERF ORMED BY: [address] [place] [address] PATHOLOGIST OPERATIONS OFFICER MARLYN MCKEON M.D. Performed By: #### C BC, MG, PHOS, CMP #### [facility] [address] [place] [address] Troponin I.cardiac [Mass/vol ume] in Serum or Plasma by Detection limit <= 0.01 ng/Ordered By: Gale Gonzales on 03-23-2024 Troponin I.cardiac DL <= 0.01 ng/mL [Mass/Vol] 3.3 pg/mL 0.0-20.0 [facility] Vit. B12/Folate Profileon Folate 13.0 ng/mL Normal >5.9 [facility] Comment on above: Result Comment: Sarah te reference range: >5.9 ng/ml The WHO technical consultation on folate and vitamin b12 deficiencies has determined that folate concentrations less than 4 ng/ml are considered deficient. Performed By: #### G LULS #### Point of Care testing , Vitamin B12 ser/plasOrdered By: Bola Garcia on 03-23-2024 Cobalamin (Vitamin B12) [Mass/Vol] 416 pg/mL Normal 180-914 [facility] Comment on above: Performed By: #### G LULS #### Point of Care testing , Vitamin D 25 Hydroxy Totalon 03-23-2024 Vitamin D 25 Hydroxy Total 21.6 ng/mL Low 30-100 [facility] Comment on above: Result Comment: KAYLEY MIN D STATUS 25(OH)VITAMIN D RANGE (ng/mL) Deficient <20 Insufficient 20 to <30 Sufficient 30 to 100 Reference: Kalee Anton, Brett BROOKS, et al. Evaluation,treatment, and prevention of vitamin D deficiency; an Endocrine Society clinical practice guideline. JCEM. 2010; 96(7):1911-. PERFORMED BY: [address] [address] PATHOLOGIST OPERATIONS OFFICER MARLYN MCKEON M.D. Performed By: #### G LULS #### Point of Care testing , Vitamin D+Metabolites [Mass/ volume] in Serum or PlasmaOrdered By: Bola Garcia on 03-23-2024 Vitamin D+Metabolites [Mass/Vol] 21.6 ng/mL Low 30-100 [facility] Comment on above: VITAMIN D STATUS 25( [place])VITAMIN D RANGE (ng/mL) Deficient <20 Insufficient 20 to <30Sufficient 30 to 100Reference: Kalee Anton, Brett BROOKS, et al. Evaluation,treatment, and prevention of vitamin D deficiency; an Endocrine Society clinical practice guideline. JCEM. 2010; 96(7):1911-30. XR chest 2V*on 03-23-2024 XR chest 2V* [facility] [place] [address] [place] [address] XRay Report Signed Patient: Bhumika Umana JR MR#: [id number] : 1975 Acct:[id number] Age/Sex: 48 / M ADM Date: 03/23/24 Loc: Room: [address] [place] [address] Type: ADM IN Attending Dr: Elder Iyer MD Copies to: GaleMD Elder Tomlin MD Ordering Provider: Gale Gonzales MD Date of Service: 03/23/24 XR/XR chest 2V*: Weakness Chest 2 views CLINICAL HISTORY: Weakness in hand since December. COMPARISON: None FINDINGS: Heart normal size. Lungs are clear. No free air. XR/XR chest 2V* IMPRESSION: NO ACUTE CARDIOPULMONARY ABNORMALITY. Impression dictated by: Reen Gonzales Jr., D.OKim03/23/2024 9:33 AM Dictation Location: [facility]--15 Transcribed By: [facility] 03/23/[address] Dictated By: Rene Gonzales Jr, DO 03/23/2433 Signed By: 03/23/[address] Normal [facility] XR ELBOW RT MIN 3 [...] JAKOB MCGHEE Date: 2022-04-23 12:40 Normal [facility] CBC AUTO DIFFon 01-11-2022 BASO # 0.0 103/ul Normal 0.0-0.1 [facility] Comment on above: Performed By: #### C BC #### [facility] [address] [place] [address] Dr. Sera Quach Basophils/100 WBC (Bld) 0.4 % Normal 0.2-2.0 [facility] Comment on above: Performed By: #### C BC #### [facility] [address] [place] [address] [address] Sera Quach EO # 0.3 103/ul Normal 0.0-0.7 [facility] Comment on above: Performed By: #### C BC #### [facility] [address] [place] [address] Dr. Sera Quach Eosinophils/100 WBC (Bld) 2.8 % Normal 0.9-7.0 [facility] Comment on above: Performed By: #### C BC #### [facility] [address] [place] [address] Dr. Sera Quach Erythrocyte distribution width (RBC) [Ratio] 13.1 % Normal 11.0-15.0 [facility] Comment on above: Performed By: #### C BC #### [facility] [address] [place] [address] Dr. Sera Quach Hematocrit (Bld) [Volume fraction] 47.3 % Normal 42.0-54.0 [facility] Comment on above: Performed By: #### C BC #### [facility] [address] [place] [address] Dr. Sera Quach Hemoglobin (Bld) [Mass/Vol] 15.2 g/dL Normal 14.0-18.0 [facility] Comment on above: Performed By: #### C BC #### [facility] [address] [place] [address] Dr. Sera Quach IG # 0.03 10e3/ul Normal 0.00-0.03 [facility] Comment on above: Performed By: #### C BC #### [facility] [address] [place] [address] Dr. Sera Quach IG % 0.3 % Normal 0.0-0.5 [facility] Comment on above: Performed By: #### C BC #### [facility] [address] [place] [address] Dr. Sera Quach LYMPH # 2.3 103/ul Normal 1.2-3.8 [facility] Comment on above: Performed By: #### C BC #### [facility] [address] [place] [address] Dr. Sera Quach Lymphocytes/100 WBC (Bld) 25.5 % Normal 20.5-60.0 [facility] Comment on above: Performed By: #### C BC #### [facility] [address] [place] [address] Dr. Sera Quach MANUAL DIFF REQ NO Normal [facility] Comment on above: Performed By: #### C BC #### [facility] [address] [place] [address] [address] Sera Quach MCH (RBC) [Entitic mass] 29.2 pg Normal 25.9-34.0 [facility] Comment on above: Performed By: #### C BC #### [facility] [address] [place] [address] [address] Sera Quach MCHC (RBC) [Mass/Vol] 32.1 g/dL Normal 29.9-35.2 [facility] Comment on above: Performed By: #### C BC #### [facility] [address] [place] [address] [address] Sera Quach MCV (RBC) [Entitic vol] 91.0 fL Normal 80.0-94.0 [facility] Comment on above: Performed By: #### C BC #### [facility] [address] [place] [address] Dr. Sera Quach MONO # 0.7 103/ul Normal 0.3-0.8 [facility] Comment on above: Performed By: #### C BC #### [facility] [address] [place] [address] Dr. Sera Quach Monocytes/100 WBC (Bld) 7.1 % Normal 1.7-12.0 [facility] Comment on above: Performed By: #### C BC #### [facility] [address] [place] [address] Dr. Sera Quach NEUT # 5.9 103/ul Normal 1.4-6.5 [facility] Comment on above: Performed By: #### C BC #### [facility] [address] [place] [address] Dr. Sera Quach Neutrophils/100 WBC (Bld) 63.9 % Normal 43.0-75.0 [facility] Comment on above: Performed By: #### C BC #### [facility] [address] [place] [address] Dr. Sera Quach Platelet mean volume (Bld) [Entitic vol] 9.3 fL Critically low 9.5-13.5 [facility] Comment on above: Performed By: #### C BC #### [facility] [address] [place] [address] Dr. Sera Quach PLT 316 103/ul Normal 150-450 [facility] Comment on above: Performed By: #### C BC #### [facility] [address] [place] [address] Dr. Sera Quach RBC 5.20 106/ul Normal 4.70-6.10 [facility] Comment on above: Performed By: #### C BC #### [facility] [address] [place] [address] Dr. Sera Quach WBC 9.2 103/ul Normal 4.0-11.0 [facility] Comment on above: Performed By: #### C BC #### [facility] [address] [place] [address] Dr. Sera Quach GLYCOHEMOGLOBIN A1Con 2021 ADA RECOMMENDATION SEE BELOW Normal [facility] Comment on above: Result Comment: ADA RECOMMENDED LIMIT 4.0 - 6.0 ADA THERAPEUTIC TARGET < 7.0 ACTION SUGGESTED > 7.0 Performed By: #### A 1C #### [facility] [address] [place] [address] Dr. Sera Quach Glucose [Mass/Vol] 209 mg/dL Normal [facility] Comment on above: Performed By: #### A 1C #### [facility] [address] [place] [address] Dr. Sera Quach HbA1c (Bld) [Mass fraction] 8.9 % Critically high 4.5-6.2 [facility] Comment on above: Performed By: #### A 1C #### [facility] [address] [place] [address] Dr. Sera Quach LIPID PROFILEon 01-11-2022 CHOL-HDL RATIO NORM SEE BELOW Normal [facility] Comment on above: Result Comment: 3.3 - 4.4 LOW RISK 4.4 - 7.1 AVERAGE RISK 7.1 - 11.0 MODERATE RISK >11.0 HIGH RISK Performed By: #### C MP, LIPID #### [facility] [address] [place] [address] [address] Sera Quach Cholesterol [Mass/Vol] 154 mg/dL Normal <=200 [facility] Comment on above: Performed By: #### C MP, LIPID #### [facility] [address] [place] [address] [address] Sera Quach Cholesterol in HDL [Mass/Vol] 39 mg/dL Critically low 40-60 [facility] Comment on above: Performed By: #### C MP, LIPID #### [facility] [address] [place] [address] [address] Sera Quach Cholesterol in LDL [Mass/Vol] 98.0 mg/dL Normal [facility] Comment on above: Performed By: #### C MP, LIPID #### [facility] [address] [place] [address] Dr. Sera Quach Cholesterol.total/Cho lesterol in HDL [Mass ratio] 3.9 {ratio} Normal [facility] Comment on above: Performed By: #### C MP, LIPID #### [facility] [address] [place] [address] [address] Sera Quach HDL NORMAL > or = 60 mg/dl - LO W CARDIOVASCULAR RISK <40 mg/dl - HIGH CARDIOVASCULAR RISK Normal [facility] Comment on above: Performed By: #### C MP, LIPID #### [facility] [address] [place] [address] [address] Sera Quach LDL CALC NORMAL SEE BELOW Normal [facility] Comment on above: Result Comment: <100 mg/dl OPTIMAL 100 - 129 mg/dl NEAR OR ABOVE OPTIMAL 130 - 159 mg/dl BORDERLINE HIGH 160 - 189 mg/dl HIGH >190 mg/dl VERY HIGH Performed By: #### C MP, LIPID #### [facility] [address] [address] [address] Sera Quach Triglyceride [Mass/Vol] 85 mg/dL Normal <=150 [facility] Comment on above: Performed By: #### C MP, LIPID #### [facility] [address] [place] [address] [address] Sera Quach VLDL CALC 17.0 mg/dL Normal [facility] Comment on above: Performed By: #### C MP, LIPID #### [facility] [address] [place] [address] Dr. Sera Quach MICROALBUMIN, RAND URon 12-26 mALB 1.3 mg/L Normal <=30.0 [facility] Comment on above: Performed By: #### M ALBR #### [facility] [address] [place] [address] Dr. Sera Quach PROF 14(COMP METB)on 022 Albumin [Mass/Vol] 3.9 g/dL Normal 3.4-5.0 [facility] Comment on above: Performed By: #### C MP, LIPID #### [facility] [address] [place] [address] Dr. Sera Quach Albumin/Globulin [Mass ratio] 1.1 {ratio} Normal [facility] Comment on above: Performed By: #### C MP, LIPID #### [facility] [address] [place] [address] Dr. Sera Quach ALP [Catalytic activity/Vol] 76 U/L Normal 46-116 [facility] Comment on above: Performed By: #### C MP, LIPID #### [facility] [address] [place] [address] Dr. Sera Quach ALT [Catalytic activity/Vol] 64 U/L Critically high 16-63 [facility] Comment on above: Performed By: #### C MP, LIPID #### [facility] [address] [place] [address] Dr. Sera Quach Anion gap [Moles/Vol] 12.7 mmol/L Normal [facility] Comment on above: Performed By: #### C MP, LIPID #### [facility] [address] [place] [address] Dr. Sera Quach AST [Catalytic activity/Vol] 37 U/L Normal 15-37 [facility] Comment on above: Performed By: #### C MP, LIPID #### [facility] [address] [place] [address] Dr. Sera Quach Bilirubin [Mass/Vol] 0.6 mg/dL Normal 0.2-1.0 [facility] Comment on above: Performed By: #### C MP, LIPID #### [facility] [address] [place] [address] Dr. Sera Quach Calcium [Mass/Vol] 9.0 mg/dL Normal 8.5-10.1 [facility] Comment on above: Performed By: #### C MP, LIPID #### [facility] [address] [place] [address] Dr. Sera Quach Chloride [Moles/Vol] 101 mmol/L Normal 98-107 [facility] Comment on above: Performed By: #### C MP, LIPID #### [facility] [address] [place] [address] Dr. Sera Quach CO2 [Moles/Vol] 27.6 mmol/L Normal 21.0-32.0 [facility] Comment on above: Performed By: #### C MP, LIPID #### [facility] [address] [place] [address] Dr. Sera Quach Creatinine [Mass/Vol] 0.75 mg/dL Normal 0.70-1.30 [facility] Comment on above: Performed By: #### C MP, LIPID #### [facility] [address] [place] [address] Dr. Sera Quach EGFR-AF THAI >60 Normal >=60 [facility] Comment on above: Performed By: #### C MP, LIPID #### [facility] [address] [place] [address] Dr. Sera Quach EGFR-NON AF THAI >60 Normal >=60 [facility] Comment on above: Performed By: #### C MP, LIPID #### [facility] [address] [place] [address] Dr. Sera Quach Globulin (S) [Mass/Vol] 3.6 g/dL Normal [facility] Comment on above: Performed By: #### C MP, LIPID #### [facility] [address] [place] [address] Dr. Sera Quach Glucose [Mass/Vol] 184 mg/dL Critically high 74-106 [facility] Comment on above: Performed By: #### C MP, LIPID #### [facility] [address] [address] [address] Sera Quach Potassium [Moles/Vol] 4.3 mmol/L Normal 3.5-5.1 [facility] Comment on above: Performed By: #### C MP, LIPID #### [facility] [address] [address] [address] Sera Quach Protein [Mass/Vol] 7.5 g/dL Normal 6.4-8.2 [facility] Comment on above: Performed By: #### C MP, LIPID #### [facility] [address] [address] [address] Sera Quach Sodium [Moles/Vol] 137 mmol/L Normal 136-145 [facility] Comment on above: Performed By: #### C MP, LIPID #### [facility] [address] [address] [address] Sera Quach Urea nitrogen [Mass/Vol] 12.0 mg/dL Normal 7.0-18.0 [facility] Comment on above: Performed By: #### C MP, LIPID #### [facility] [address] [place] [address] Dr. Sera Quach Urea nitrogen/Creatinine [Mass ratio] 16.0 mg/mg Normal [facility] Comment on above: Performed By: #### C MP, LIPID #### [facility] [address] [place] [address] Dr. Sera Quach UA RANDOM W/MICROSCOPICon BACTERIA NONE SEEN Normal NONE SEEN [facility] Comment on above: Performed By: #### U AMIC #### [facility] [address] [place] [address] Dr. Sera Quach Bilirubin Ql (U) Negative Normal NEGATIVE [facility] Comment on above: Performed By: #### U AMIC #### [facility] [address] [place] [address] Dr. Sera Quach CAST NONE SEEN Normal NONE SEEN [facility] Comment on above: Performed By: #### U AMIC #### [facility] [address] [address] [address] Sera Quach Clarity (U) CLOUDY Abnormal CLEAR [facility] Comment on above: Performed By: #### U AMIC #### [facility] [address] [address] [address] Sera Quach Color (U) YELLOW Normal YELLOW [facility] Comment on above: Performed By: #### U AMIC #### [facility] [address] [address] [address] Sera Quach Crystals LM Nom (Urine sed) SEEN Abnormal NONE SEEN [facility] Comment on above: Performed By: #### U AMIC #### [facility] [address] [address] [address] Sera Quach Epithelial cells LM Ql (Urine sed) RARE Normal NONE SEEN /RARE [facility] Comment on above: Performed By: #### U AMIC #### [facility] [address] [place] [address] Dr. Sera Quach Glucose Ql (U) Negative Normal NEGATIVE [facility] Comment on above: Performed By: #### U AMIC #### [facility] [address] [address] [address] Sera Quach Hemoglobin Ql (U) Negative Normal NEGATIVE [facility] Comment on above: Performed By: #### U AMIC #### [facility] [address] [place] [address] Dr. Sera Quach Ketones Ql (U) Negative Normal NEGATIVE [facility] Comment on above: Performed By: #### U AMIC #### [facility] [address] [address] [address] Sera Quach LEUKOCYTES Negative Normal NEGATIVE [facility] Comment on above: Performed By: #### U AMIC #### [facility] [address] [address] [address] Sera Quach MUCOUS NONE SEEN Normal NONE SEEN [facility] Comment on above: Performed By: #### U AMIC #### [facility] [address] [address] [address] Sera Quach Nitrite Ql (U) Negative Normal NEGATIVE [facility] Comment on above: Performed By: #### U AMIC #### [facility] [address] [address] [address] Sera Quach pH (U) 5.5 [pH] Normal 5-9 [facility] Comment on above: Performed By: #### U AMIC #### [facility] [address] [place] [address] Dr. Sera Quach RBC NONE SEEN Abnormal 0-2 [facility] Comment on above: Performed By: #### U AMIC #### [facility] [address] [address] [address] Sera Quach SPEC GRAVITY 1.025 Normal 1.005-<=1.02 5 [facility] Comment on above: Performed By: #### U AMIC #### [facility] [address] [place] [address] Dr. Sera Quach UA PROTEIN Negative Normal NEGATIVE/ TRACE [facility] Comment on above: Performed By: #### U AMIC #### [facility] [address] [place] [address] Dr. Sera Quach Urobilinogen Qn (U) 1.0 {Jessika'U}/dL Normal 0.2 - 1. 0 [facility] Comment on above: Performed By: #### U AMIC #### [facility] [address] [place] [address] Dr. Sera Quach WBC 0-2 Abnormal NONE SEEN [facility] Comment on above: Performed By: #### U AMIC #### [facility] [address] [place] [address] Dr. Sera Quach GLYCOHEMOGLOBIN A1Con 2020 ADA RECOMMENDATION ADA THERAPEUTIC TARG ET 6.0 - 7.0 ACTION SUGGESTED > 7.0 Normal [facility] Comment on above: Performed By: #### A 1C #### [facility] [address] [place] [address] Dania Carreno Glucose [Mass/Vol] 174 mg/dL Normal [facility] Comment on above: Performed By: #### A 1C #### [facility] [address] [address] Adnia Ev HbA1c (Bld) [Mass fraction] 7.7 % Critically high <=6.0 [facility] Comment on above: Performed By: #### A 1C #### [facility] [address] [place] [address] Dania Ev PROF CHEM 8 (BAS METB)on Anion gap [Moles/Vol] 9.0 mmol/L Normal [facility] Comment on above: Performed By: #### B MP #### [facility] [address] [place] [address] Dania Ev Calcium [Mass/Vol] 8.8 mg/dL Normal 8.4-10.2 [facility] Comment on above: Performed By: #### B MP #### [facility] [address] [place] [address] Dania Ev Chloride [Moles/Vol] 102 mmol/L Normal 98-107 [facility] Comment on above: Performed By: #### B MP #### [facility] [address] [place] [address] Dania Ev CO2 [Moles/Vol] 29.1 mmol/L Normal 22.0-30.0 [facility] Comment on above: Performed By: #### B MP #### [facility] [address] [place] [address] Dania Ev Creatinine [Mass/Vol] 0.73 mg/dL Normal 0.66-1.25 [facility] Comment on above: Performed By: #### B MP #### [facility] [address] [place], [place] [id number] Dania Ev EGFR-AF THAI >60 Normal >=60 [facility] Comment on above: Performed By: #### B MP #### [facility] [address] [place] [address] Dania Ev EGFR-NON AF THAI >60 Normal >=60 [facility] Comment on above: Performed By: #### B MP #### [facility] [address] [place] [address] Dania Ev Glucose [Mass/Vol] 141 mg/dL Critically high 74-106 [facility] Comment on above: Performed By: #### B MP #### [facility] [address] [place], [place] [address] Dania Ev Potassium [Moles/Vol] 4.1 mmol/L Normal 3.4-5.0 [facility] Comment on above: Performed By: #### B MP #### [facility] [address] [id number] Dania Ev Sodium [Moles/Vol] 136 mmol/L Critically low 137-145 [facility] Comment on above: Performed By: #### B MP #### [facility] [address] [id number] Dania Ev Urea nitrogen [Mass/Vol] 9.0 mg/dL Normal 9.0-20.0 [facility] Comment on above: Performed By: #### B MP #### [facility] [address] [id number] Dania Ev Urea nitrogen/Creatinine [Mass ratio] 12.3 mg/mg Normal [facility] Comment on above: Performed By: #### B MP #### [facility] [address] [place], [place] [address] Dania Carreno Vital Signs Date Time Vital Sign Value Performing Clinician Facility 10-10-2024 08:32-0500 Body height 190.5 cm Pfo 6 [facility] 10-10-2024 08:32-0500 Body mass index (BMI) [Ratio] 38.6 kg/m2 Pfo 6 [facility] 10-10-2024 08:32-0500 Body temperature 97.2 [degF] Pfo 6 [facility] 10-10-2024 08:32-0500 Body weight 140.07 kg Pfo 6 [facility] 10-10-2024 08:32-0500 Diastolic blood pressure 81 mm[Hg] Pfo 6 [facility] 10-10-2024 08:32-0500 Heart rate 101 /min Pfo 6 [facility] 10-10-2024 08:32-0500 Respiratory rate 18 /min Pfo 6 [facility] 10-10-2024 08:32-0500 SaO2% (BldA) [Mass fraction] 98 % Pfo 6 [facility] 10-10-2024 08:32-0500 Systolic blood pressure 137 mm[Hg] Pfo 6 [facility] 10-07-2024 13:17-0500 Body height 190.5 cm Cisco Juan MD Work Phone: [facility] 10-07-2024 13:17-0500 Body mass index (BMI) [Ratio] 37.93 kg/m2 Cisco Juan MD Work Phone: [facility] 10-07-2024 13:17-0500 Body weight 137.67 kg Cisco Juan MD Work Phone: [facility] 10-07-2024 13:17-0500 Diastolic blood pressure 96 mm[Hg] Cisco Juan MD Work Phone: [facility] 10-07-2024 13:17-0500 Systolic blood pressure 146 mm[Hg] Cisco Juan MD Work Phone: [facility] 10-07-2024 11:35-0500 Diastolic blood pressure 84 mm[Hg] Cecy Hernandez TELEGRAPHIC TYPEWRITER INSTALLER Work Phone: [facility] 10-07-2024 11:35-0500 Systolic blood pressure 132 mm[Hg] Cecy Hernandez TELEGRAPHIC TYPEWRITER INSTALLER Work Phone: [facility] 10-07-2024 10:35-0500 Body height 190.5 cm Cecy David TELEGRAPHIC TYPEWRITER INSTALLER Work Phone: [facility] 10-07-2024 10:35-0500 Body mass index (BMI) [Ratio] 38 kg/m2 Cecy Hernandez TELEGRAPHIC TYPEWRITER INSTALLER Work Phone: [facility] 10-07-2024 10:35-0500 Body temperature 98.49 [degF] Cecy Hernandez TELEGRAPHIC TYPEWRITER INSTALLER Work Phone: [facility] 10-07-2024 10:35-0500 Body weight 137.89 kg Cecy Hernandez TELEGRAPHIC TYPEWRITER INSTALLER Work Phone: [facility] 10-07-2024 10:35-0500 Heart rate 68 /min Cecy Hernandez TELEGRAPHIC TYPEWRITER INSTALLER Work Phone: [facility] 10-07-2024 10:35-0500 Respiratory rate 19 /min Cecy Hernandez TELEGRAPHIC TYPEWRITER INSTALLER Work Phone: [facility] 10-07-2024 10:35-0500 SaO2% (BldA) [Mass fraction] 98 % Cecy Hernandez TELEGRAPHIC TYPEWRITER INSTALLER Work Phone: [facility] 09-19-2024 08:36-0500 Body height 190.5 cm Pfo 2 [facility] 09-19-2024 08:36-0500 Body mass index (BMI) [Ratio] 38.18 kg/m2 Pfo 2 [facility] 09-19-2024 08:36-0500 Body temperature 97 [degF] Pfo 2 [facility] 09-19-2024 08:36-0500 Body weight 138.57 kg Pfo 2 [facility] 09-19-2024 08:36-0500 Diastolic blood pressure 92 mm[Hg] Pfo 2 [facility] 09-19-2024 08:36-0500 Heart rate 97 /min Pfo 2 [facility] 09-19-2024 08:36-0500 Respiratory rate 18 /min Pfo 2 [facility] 09-19-2024 08:36-0500 SaO2% (BldA) [Mass fraction] 97 % Pfo 2 [facility] 09-19-2024 08:36-0500 Systolic blood pressure 143 mm[Hg] Pfo 2 [facility] 09-11-2024 12:59-0500 Body height 190.5 cm Lula Cota MD Work Phone: [facility] 09-11-2024 12:59-0500 Body mass index (BMI) [Ratio] 38 kg/m2 Lula Cota MD Work Phone: [facility] 09-11-2024 12:59-0500 Body weight 137.89 kg Lula Cota MD Work Phone: [facility] 09-11-2024 12:59-0500 Diastolic blood pressure 74 mm[Hg] Lula Cota MD Work Phone: [facility] 09-11-2024 12:59-0500 Respiratory rate 18 /min Lula Cota MD Work Phone: [facility] 09-11-2024 12:59-0500 Systolic blood pressure 128 mm[Hg] Lula Cota MD Work Phone: [facility] 08-22-2024 10:21-0500 Body height 190.5 cm Cisco Juan MD Work Phone: [facility] 08-22-2024 10:21-0500 Body mass index (BMI) [Ratio] 38.37 kg/m2 Cisco Juan MD Work Phone: [facility] 08-22-2024 10:21-0500 Body weight 139.25 kg Cisco Juan MD Work Phone: [facility] 08-22-2024 10:21-0500 Diastolic blood pressure 77 mm[Hg] Cisco Juan MD Work Phone: [facility] 08-22-2024 10:21-0500 Heart rate 104 /min Cisco Juan MD Work Phone: [facility] 08-22-2024 10:21-0500 Systolic blood pressure 126 mm[Hg] Cisco Juan MD Work Phone: [facility] 07-22-2024 18:34-0500 Body height 190.5 cm Cecy Hernandez NP Work Phone: [facility] 07-22-2024 18:34-0500 Body mass index (BMI) [Ratio] 39.47 kg/m2 Cecy Hernandez TELEGRAPHIC TYPEWRITER INSTALLER Work Phone: [facility] 07-22-2024 18:34-0500 Body temperature 98.01 [degF] Cecy Hernandez TELEGRAPHIC TYPEWRITER INSTALLER Work Phone: [facility] 07-22-2024 18:34-0500 Body weight 143.25 kg Cecy Hernandez TELEGRAPHIC TYPEWRITER INSTALLER Work Phone: [facility] 07-22-2024 18:34-0500 Diastolic blood pressure 86 mm[Hg] Cecy Hernandez TELEGRAPHIC TYPEWRITER INSTALLER Work Phone: [facility] 07-22-2024 18:34-0500 Heart rate 95 /min Cecy Hernandez TELEGRAPHIC TYPEWRITER INSTALLER Work Phone: [facility] 07-22-2024 18:34-0500 SaO2% (BldA) [Mass fraction] 96 % Cecy Hernandez TELEGRAPHIC TYPEWRITER INSTALLER Work Phone: [facility] 07-22-2024 18:34-0500 Systolic blood pressure 120 mm[Hg] Cecy Hernandez TELEGRAPHIC TYPEWRITER INSTALLER Work Phone: [facility] 07-10-2024 09:46-0500 Body height 190.5 cm Darek Valdovinos MD Work Phone: [facility] 07-10-2024 09:46-0500 Body mass index (BMI) [Ratio] 39.9 kg/m2 Darek Valdovinos MD Work Phone: [facility] 07-10-2024 09:46-0500 Body weight 144.8 kg Darek Valdovinos MD Work Phone: [facility] 07-10-2024 09:46-0500 Diastolic blood pressure 79 mm[Hg] Darek Valdovinos MD Work Phone: [facility] 07-10-2024 09:46-0500 Heart rate 78 /min Darek Valdovinos MD Work Phone: [facility] 07-10-2024 09:46-0500 Systolic blood pressure 139 mm[Hg] Darek Valdovinos MD Work Phone: [facility] 06-22-2024 19:45-0400 Body height 190.5 cm Hector Napoles MD Work Phone: [facility] 06-22-2024 19:45-0400 Body mass index (BMI) [Ratio] 40.62 kg/m2 Hector Napoles MD Work Phone: [facility] 06-22-2024 19:45-0400 Body weight 147.42 kg Hector Napoles MD Work Phone: [facility] 06-22-2024 19:44-0400 Body temperature 99.1 [degF] Hector Napoles MD Work Phone: [facility] 06-22-2024 19:44-0400 Diastolic blood pressure 77 mm[Hg] Hector Napoles MD Work Phone: [facility] 06-22-2024 19:44-0400 Heart rate 98 /min Hector Napoles MD Work Phone: [facility] 06-22-2024 19:44-0400 Respiratory rate 16 /min [facility] 06-22-2024 19:44-0400 SaO2% (BldA) [Mass fraction] 98 % Hector [facility]oles MD [facility] 06-22-2024 19:44-0400 Systolic blood pressure 167 mm[Hg] Hector Napoles MD Work Phone: [facility] 06-18-2024 22:15-0400 Heart rate 76 /min [facility] 06-18-2024 22:15-0400 Respiratory rate 17 /min [employer] [facility] 06-18-2024 22:15-0400 SaO2% (BldA) [Mass fraction] 98 % [facility] 06-18-2024 22:14-0400 Diastolic blood pressure 88 mm[Hg] [facility] 06-18-2024 22:14-0400 Systolic blood pressure 122 mm[Hg] [facility] 06-18-2024 19:22-0400 Body height 190.5 cm [facility] 06-18-2024 19:22-0400 Body mass index (BMI) [Ratio] 40.62 kg/m2 [facility] 06-18-2024 19:22-0400 Body weight 147.42 kg [facility] 06-18-2024 19:21-0400 Body temperature 98.4 [degF] [facility] 06-12-2024 13:14-0400 Body weight 148.33 kg Lula Cota MD Work Phone: [facility] 06-12-2024 13:14-0400 Diastolic blood pressure 78 mm[Hg] Lula Cota MD Work Phone: [facility] 06-12-2024 13:14-0400 Respiratory rate 18 /min Lula Cota MD Work Phone: [facility] 06-12-2024 13:14-0400 Systolic blood pressure 122 mm[Hg] Lula Cota MD Work Phone: [facility] 05-21-2024 14:13-0400 Body height 190.5 cm Cecy Hernandez TELEGRAPHIC TYPEWRITER INSTALLER Work Phone: [facility] 05-21-2024 14:13-0400 Body mass index (BMI) [Ratio] 40.52 kg/m2 Cecy David TELEGRAPHIC TYPEWRITER INSTALLER Work Phone: [facility] 05-21-2024 14:13-0400 Body temperature 98.8 [degF] Cecy David TELEGRAPHIC TYPEWRITER INSTALLER Work Phone: [facility] 05-21-2024 14:13-0400 Body weight 147.06 kg Cecy David TELEGRAPHIC TYPEWRITER INSTALLER Work Phone: [facility] 05-21-2024 14:13-0400 Diastolic blood pressure 82 mm[Hg] Cecy Federicoz TELEGRAPHIC TYPEWRITER INSTALLER Work Phone: [facility] 05-21-2024 14:13-0400 Heart rate 87 /min Cecy Hernandez TELEGRAPHIC TYPEWRITER INSTALLER Work Phone: [facility] 05-21-2024 14:13-0400 Respiratory rate 19 /min Cecy Hernandez TELEGRAPHIC TYPEWRITER INSTALLER Work Phone: [facility] 05-21-2024 14:13-0400 SaO2% (BldA) [Mass fraction] 99 % Cecy Hernandez TELEGRAPHIC TYPEWRITER INSTALLER Work Phone: [facility] 05-21-2024 14:13-0400 Systolic blood pressure 138 mm[Hg] Cecy Hernandez TELEGRAPHIC TYPEWRITER INSTALLER Work Phone: [facility] 05-01-2024 15:32-0400 Body height 190.5 cm Maryjane Liang PA Work Phone: [facility] 05-01-2024 15:32-0400 Body mass index (BMI) [Ratio] 41.37 kg/m2 Maryjane Liang PA Work Phone: [facility] 05-01-2024 15:32-0400 Body weight 150.14 kg Maryjane Liang PA Work Phone: [facility] 05-01-2024 15:32-0400 Diastolic blood pressure 84 mm[Hg] Maryjane Liang PA Work Phone: [facility] 05-01-2024 15:32-0400 Heart rate 80 /min Maryjane Liang PA Work Phone: [facility] 05-01-2024 15:32-0400 Respiratory rate 16 /min Maryjane Liang PA Work Phone: [facility] 05-01-2024 15:32-0400 SaO2% (BldA) [Mass fraction] 96 % Maryjane Liang PA Work Phone: [facility] 05-01-2024 15:32-0400 Systolic blood pressure 132 mm[Hg] Maryjane Liang PA Work Phone: [facility] 03-30-2024 12:00-0400 Body temperature 98 [degF] Cecy Gordonfroylanz Work Phone: [facility] 03-30-2024 12:00-0400 Diastolic blood pressure 88 mm[Hg] Cecy Aichholz Work Phone: [facility] 03-30-2024 12:00-0400 Heart rate 80 /min Cecy Aichholz Work Phone: [facility] 03-30-2024 12:00-0400 Respiratory rate 19 /min Cecy Aichholz Work Phone: [facility] 03-30-2024 12:00-0400 SaO2% (BldA) [Mass fraction] 95 % Cecy Aichholz Work Phone: [facility] 03-30-2024 12:00-0400 Systolic blood pressure 140 mm[Hg] Cecy Aichholz Work Phone: [facility] 03-30-2024 02:25-0400 Body height 190.5 cm Cecy Aichholz Work Phone: [facility] 03-30-2024 02:25-0400 Body weight 151.5 kg Cecy Aichholz Work Phone: [facility] 03-30-2024 02:03-0400 Body temperature 98.3 [degF] Cecy Aichholz Work Phone: [facility] 03-30-2024 02:03-0400 Diastolic blood pressure 73 mm[Hg] Cecy Aichholz Work Phone: [facility] 03-30-2024 02:03-0400 Heart rate 62 /min Cecy Aichholz Work Phone: [facility] 03-30-2024 02:03-0400 Respiratory rate 18 /min Cecy Aichholz Work Phone: [facility] 03-30-2024 02:03-0400 SaO2% (BldA) [Mass fraction] 96 % Cecy Aichholz Work Phone: [facility] 03-30-2024 02:03-0400 Systolic blood pressure 133 mm[Hg] Cecy Aichholz Work Phone: [facility] 03-29-2024 22:19-0400 Body height 190.5 cm Cecy Aichholz Work Phone: [facility] 03-29-2024 22:19-0400 Body weight 151.9 kg Cecy Aichholz Work Phone: [facility] 03-25-2024 16:05-0400 Diastolic blood pressure 83 mm[Hg] Cecy Aichholz Work Phone: [facility] 03-25-2024 16:05-0400 Heart rate 86 /min Cecy Aichholz Work Phone: [facility] 03-25-2024 16:05-0400 Respiratory rate 18 /min Cecy Aichholz Work Phone: [facility] 03-25-2024 16:05-0400 SaO2% (BldA) [Mass fraction] 98 % Cecy Aichholz Work Phone: [facility] 03-25-2024 16:05-0400 Systolic blood pressure 120 mm[Hg] Cecy Aichholz Work Phone: [facility] 03-25-2024 09:37-0400 Body temperature 98 [degF] Cecy Aichholz Work Phone: [facility] 03-25-2024 06:32-0400 Body weight 149.5 kg Cecy Aichholz Work Phone: [facility] 03-23-2024 03:31-0400 Body height 190.5 cm Cecy Aichholz Work Phone: [facility] 10-08-2021 13:30-0500 Body height 190.5 cm Yue Pedroza Other [employer] Other 10-08-2021 13:30-0500 Body mass index (BMI) [Ratio] 45.12 kg/m2 Yue Pedroza Other [employer] Other 10-08-2021 13:30-0500 Body temperature 96.6 [degF] Yue Pedroza Other [employer] Other 10-08-2021 13:30-0500 Body weight 163.75 kg Yue Pedroza Other [employer] Other 10-08-2021 13:30-0500 SaO2% (BldA) [Mass fraction] 98 % Yue Pedroza Other [employer] Other Encounters Encounter Date Encounter Type Care Provider Facility Start: 10-11-2024 End: 10-11-2024 Telephone encounter Cecy Hernandez TELEGRAPHIC TYPEWRITER INSTALLER Work Phone: [facility] Start: 10-10-2024 End: 10-10-2024 ambulatory Pfo Infusion Chair 6 Ester Warren [facility] Comment on above: CIDP (chronic inflam matory demyelinating polyneuropathy) ([facility]) (Primary Dx) Start: 10-07-2024 End: 10-07-2024 Bamboo flowsheet Cecy Hernandez TELEGRAPHIC TYPEWRITER INSTALLER Work Phone: [facility] Start: 10-07-2024 End: 10-07-2024 Bamboo flowsheet Cecy Hernandez TELEGRAPHIC TYPEWRITER INSTALLER Work Phone: [facility] Start: 10-07-2024 End: 10-07-2024 ambulatory [facility] Start: 10-07-2024 End: 10-07-2024 ambulatory CECY HERNANDEZ Not Available Start: 10-07-2024 End: 10-07-2024 Office outpatient visit 40 minutes Cecy Hernandez NP Work Phone: [facility] Comment on above: CIDP (chronic inflam matory demyelinating polyneuropathy) ([facility]/HCC) (Primary Dx); Major depressive disorder, recurrent, moderate ([facility]); Morbid (severe) obesity due to excess calories ([facility]); Essential (primary) hypertension ([facility]); Body mass index (BMI) 39.0-39.9, adult; Rheumatoid arthritis with rheumatoid factor, unspecified (CMS/HCC); Type 2 diabetes mellitus without complications (CMS/HCC); Essential hypertension, benign ([facility]); Type 2 diabetes mellitus without complication, without long-term current use of insulin ([facility]); Upper extremity weakness Hunger, initial enco unter (Primary Dx); CIDP (chronic inflammatory demyelinating polyneuropathy) ([facility]) Start: 09-19-2024 End: 09-19-2024 ambulatory Pfo Infusion Chair 2 Ester Warren [facility] Comment on above: CIDP (chronic inflam matory demyelinating polyneuropathy) ([facility]) (Primary Dx) Start: 09-11-2024 End: 09-11-2024 Office outpatient visit 25 minutes Lula Cota MD Work Phone: [facility] Comment on above: Primary osteoarthrit is of both hands (Primary Dx); CIDP (chronic inflammatory demyelinating polyneuropathy) ([facility]); Diabetic cheirarthropathy ([facility]) Start: 09-11-2024 End: 09-11-2024 ambulatory LULA COTA [facility] Start: 09-09-2024 End: 09-09-2024 ambulatory CECY HERNANDEZ [facility] Start: 08-23-2024 End: 08-23-2024 Telephone encounter Maeve Segura [facility] Comment on above: IVIG Start: 08-22-2024 End: 08-22-2024 Office outpatient new 60 minutes Cisco Juan MD Work Phone: [facility] Comment on above: CIDP (chronic inflam matory demyelinating polyneuropathy) ([facility]); Primary osteoarthritis of both hands Start: 08-22-2024 End: 08-22-2024 ambulatory CISCO JUAN [facility] Start: 08-16-2024 End: 08-16-2024 Orders Only Cisco Juan MD Work Phone: [facility] Comment on above: CIDP (chronic inflam matory demyelinating polyneuropathy) ([facility]) (Primary Dx) Start: 08-14-2024 End: 08-14-2024 [facility] Start: 08-12-2024 End: 08-12-2024 ambulatory CECY J [facility] Start: 08-09-2024 End: 08-15-2024 [facility] Start: 08-08-2024 End: 08-08-2024 Emergency department patient visit [facility] Start: 08-08-[address] [facility] Start: 08-06-2024 End: 08-06-2024 Telephone encounter Maryjane COLÓN Work Phone: [facility] Comment on above: Home Health Start: 07-30-2024 End: 07-30-2024 Refill Cecy Hernandez NP Work Phone: [facility] Comment on above: Type 2 diabetes genet itus without complication, without long- term current use of insulin ([facility]) Start: 07-22-2024 End: 07-22-2024 Office outpatient visit 25 minutes Cecy Hernandez TELEGRAPHIC TYPEWRITER INSTALLER Work Phone: [facility] Comment on above: Upper extremity weak ness (Primary Dx); Depression, unspecified ([facility]); Type 2 diabetes mellitus without complication, without long-term current use of insulin ([facility]); Essential hypertension, benign (CMS/HCC); Essential (primary) hypertension (CMS/HCC); Type 2 diabetes mellitus without complications ([facility]); Obesity, Class II, BMI 35-39.9; Weakness; Rheumatoid arthritis with rheumatoid factor, unspecified (CMS/HCC); Autoimmune disease (CMS/HCC); Moderate episode of recurrent major depressive disorder (CMS/HCC) Start: 07-22-2024 End: 07-22-2024 ambulatory CECY HERNANDEZ Not Available Start: 07-22-2024 End: 07-22-2024 Bamboo flowsheet Cecy Hernandez TELEGRAPHIC TYPEWRITER INSTALLER Work Phone: [facility] Start: 07-22-2024 End: 07-22-2024 Bamboo flowsheet Cecy Hernandez TELEGRAPHIC TYPEWRITER INSTALLER Work Phone: [facility] Start: 07-11-2024 End: 07-11-2024 Social Work Marvin REGALADO [facility] Comment on above: Financial difficulty (Primary Dx) Start: 07-10-2024 End: 07-10-2024 Office outpatient new 45 minutes Darek Valdovinos MD Work Phone: Neurology Comment on above: Brachial plexopathy (Primary Dx); Obesity, Class II, BMI 35-39.9 Start: 07-10-2024 End: 07-10-2024 ambulatory DAREK VALDOVINOS Facility:[facility] Start: 06-27-2024 End: 06-27-2024 Refill Cecy Hernandez TELEGRAPHIC TYPEWRITER INSTALLER Work Phone: [facility] Comment on [...] Department Unsolicited Start: 06-24-2024 End: 06-26-2024 ambulatory LELAND DANG Facility:[facility] Start: 06-24-2024 End: 06-25-2024 Clinisync Result Encounter Generic External Data Provider [facility] External Department Unsolicited Start: 06-24-2024 End: 06-25-2024 Clinisync Result Encounter Generic External Data Provider [facility] External Department Unsolicited Start: 06-22-2024 End: 06-22-2024 Emergency department patient visit Hector Napoles MD Work Phone: [facility] Start: 06-18-2024 End: 06-18-2024 Emergency department patient visit [facility] Start: 06-12-2024 End: 06-12-2024 Office outpatient visit 25 minutes Lula Cota MD Work Phone: [facility] Comment on above: Primary osteoarthrit is of both hands (Primary Dx); Myopathy; Diabetic cheirarthropathy ([facility]) Start: 06-12-2024 End: 06-12-2024 [facility] Start: 06-07-2024 End: 06-07-2024 ambulatory [facility] Start: 05-29-2024 End: 05-29-2024 Refill Cecy Hernandez NP Work Phone: [facility] Comment on above: Type 2 diabetes genet itus without complication, without long- term current use of insulin ([facility]); Type 2 diabetes mellitus without complications ([facility]); Depression, unspecified ([facility]); Other chronic pain Start: 05-28-2024 End: 05-28-2024 Clinisync Result Encounter Cecy Hernandez NP Work Phone: [facility] Unsolicited Start: 05-28-2024 End: 05-28-2024 Clinisync Result Encounter Cecy Hernandez TELEGRAPHIC TYPEWRITER INSTALLER Work Phone: [facility] Unsolicited Start: 05-21-2024 End: 05-21-2024 Bamboo flowsheet Cecy Hernandez NP Work Phone: [facility] Start: 05-21-2024 End: 05-21-2024 Bamboo flowsheet Cecy Yobanyhholz TELEGRAPHIC TYPEWRITER INSTALLER Work Phone: [facility] Start: 05-21-2024 End: 05-21-2024 Office outpatient visit 15 minutes Cecy Aichholz TELEGRAPHIC TYPEWRITER INSTALLER Work Phone: [facility] Comment on above: Essential hypertensi on, benign (CMS/HCC) (Primary Dx); Type 2 diabetes mellitus without complication, without long-term current use of insulin ([facility]); Body mass index (BMI) 40.0-44.9, adult (CMS/HCC); Morbid (severe) obesity due to excess calories ([facility]) Start: 05-21-2024 End: 05-21-2024 ambulatory CECY AICHHOLZ Not Available Start: 05-01-2024 End: 05-01-2024 Office outpatient visit 15 minutes Maryjane COLÓN Work Phone: [facility] Comment on above: Sensory disturbance (Primary Dx); Weakness; Degenerative disc disease, cervical Start: 05-01-2024 End: 05-01-2024 ambulatory MARYJANE LIANG Not Available Start: 05-01-2024 End: 05-01-2024 Bamboo flowsheet Maryjane COLÓN Work Phone: [facility] [place] [facility] Start: 05-01-2024 End: 05-01-2024 Bamboo flowsheet Maryjane COLÓN Work Phone: [facility] Start: 04-30-2024 End: 04-30-2024 Refill Cecy Yobanyhholz TELEGRAPHIC TYPEWRITER INSTALLER Work Phone: [facility] Comment on above: Type 2 diabetes genet itus without complication, without long- term current use of insulin (CMS/HCC) Start: 04-24-2024 End: 04-24-2024 Orders Only Cecy Yobanyhholz TELEGRAPHIC TYPEWRITER INSTALLER Work Phone: [facility] Comment on above: Upper extremity weak ness (Primary Dx) Start: 04-17-2024 End: 04-17-2024 ambulatory LULA COTA [facility] Start: 04-04-2024 End: 04-04-2024 ambulatory CECY AICHHOLZ Not Available Start: 04-03-2024 End: 04-03-2024 ambulatory MARYJANE LIANG Not Available Start: 03-30-2024 End: 03-30-[address] Facility:[facility] Start: 03-30-2024 End: 03-30-2024 Evaluation and management of inpatient Cecy Aichholz Work Phone: [facility] [place] [facility] Work Phone: Start: 03-30-2024 End: 03-30-2024 observation encounter Cecy Miranda Aichholz Work Phone: [facility] Work Phone: Start: 03-23-2024 End: 03-25-2024 Evaluation and management of inpatient Cecy Aichholz Work Phone: [facility] [place] [facility] Work Phone: Start: 03-04-2024 End: [...] [facility] Start: 10-11-2023 Refill Cecy Aichholz TELEGRAPHIC TYPEWRITER INSTALLER Work Phone: [facility] Comment on above: Type 2 diabetes genet itus without complication, without long- term current use of insulin (CMS/HCC) (Primary Dx); Type 2 diabetes mellitus without complications (CMS/HCC) Start: 04-23-2022 End: 04-23-2022 ambulatory HERIBERTO HERNANDEZ Facility:[facility] Start: 01-11-2022 End: 01-12-2022 ambulatory HERIBERTO HERNANDEZ Facility:[facility] Start: 10-08-2021 End: 10-08-2021 ambulatory Yuemerlene Pedroza Other [employer] Other Start: 10-08-2021 Office outpatient vi sit 15 minutes Yue Kasia [facility] Start: 06-07-2021 End: 06-07-2021 ambulatory HERIBERTO HERNANDEZ Facility:[facility] Start: 05-05-2021 End: 05-06-2021 ambulatory HERIBERTO HERNANDEZ Facility:[facility] Start: 06-08-2018 End: 06-09-2018 Patient encounter procedure DEFAULT PHYSICIAN Facility:[facility] Start: 11-07-2013 End: 11-07-2013 Telephone encounter Haylee Garcia Work Phone: Rheumatology Comment on above: Appointment Cancelle d Procedures Date Procedure Procedure Detail Performing Clinician Start: 10-07-2024 Hemoglobin glycosylated a1c Cecy Hernandez TELEGRAPHIC TYPEWRITER INSTALLER Work Phone: Start: 10-07-2024 Adult depression scr eening assessment Cisco Juan MD Work Phone: Start: 08-10-2024 Cyclic citrullinated peptide antibody LULA COTA Comment on above: Result Comment: Interpretation-------- <3 Negative >=3 Positive Performed By: #### C BCA, 14502-7, CMP, 1988-5, 4485-9, 4498-2, ENAP #### [facility] ([id number]) [address] [place] [address], [address] [place] [address] Start: 08-10-2024 Adult depression scr eening assessment Cisco Juan MD Work Phone: Start: 06-26-2024 [facility] CBC PNL BLD AUTO Ge neric External Data Provider Start: 06-25-2024 [facility] VIT B12 SERPL-MCNC Generic External Data Provider Start: 06-24-2024 [facility] RAVINDER BY IFA WITH REFLEX Generic External Data Provider Start: 05-28-2024 MLR HEMOGLOBIN A1C Cecy Hernandez TELEGRAPHIC TYPEWRITER INSTALLER Work Phone: Start: 04-23-2024 Colonoscopy Cecy quijano TELEGRAPHIC TYPEWRITER INSTALLER Work Phone: Start: 03-29-2024 CT of head [...] Screening for malign ant neoplasm of colon [facility] Start: 06-26-2027 Diabetes Screening Diabetes Screenin [facility] Start: 10-07-2025 Adult BMI Screening Adult BMI Screen ing [facility] Start: 10-07-2025 Depression Screening Depression Scre ening [facility] Start: 10-07-2025 Tobacco Screening Tobacco Screening [facility] Start: 09-19-2025 Adult BMI Screening Adult BMI Screen ing [facility] Start: 09-11-2025 Adult BMI Screening Adult BMI Screen ing [facility] Start: 08-22-2025 Adult BMI Screening Adult BMI Screen ing [facility] Start: 08-22-2025 Tobacco Screening Tobacco Screening [facility] Start: 08-13-2025 Adult BMI Screening Adult BMI Screen ing [facility] Start: 08-10-2025 Depression Screening Depression Scre ening [facility] Start: 08-10-2025 Tobacco Screening Tobacco Screening [facility] Start: 04-10-2025 End: 04-10-2025 Patient encounter procedure 04/10/2025 12:00 PM EDT Office Visit [facility] [address] [facility] [address] [place] [address] Lula Cota MD [address] [address] [facility] Start: 04-06-2025 Hemoglobin A1c measurement Diabetes: Hemoglobin A1C [facility] Start: 03-11-2025 End: 09-11-2025 C-reactive protein C-reactive protein Lab Routine Primary osteoarthritis of both hands Expected: 03/11/2025 (Approximate), Expires: 09/11/2025 [facility] Comment on above: Expected: 03/11/2025 (Approximate), Expires: 09/11/2025 Start: 03-11-2025 End: 09-11-2025 Erythrocyte sedimentation rate Erythrocyte Sedimentation Rate (ESR) Lab Routine Primary osteoarthritis of both hands Expected: 03/11/2025 (Approximate), Expires: 09/11/2025 [facility] Work Phone: Comment on above: Expected: 03/11/2025 (Approximate), Expires: 09/11/2025 Start: 02-15-2025 Urine screening for protein Diabetes: Urine Protein Screening [facility] Start: 12-23-2024 Hemoglobin A1c measurement Diabetes: Hemoglobin A1C [facility] Start: 11-26-2024 Hemoglobin A1c measurement Diabetes: Hemoglobin A1C [facility] Start: 11-14-2024 End: 11-14-2024 Patient encounter procedure 11/14/2024 3:00 PM EDT Office Visit [facility] [address] [place] [phone] [place] [address] [place] [phone] [facility] Start: 10-31-2024 End: 10-31-2024 ambulatory 10/31/2024 8:30 AM EST Infusion Ester Warren [facility] [address] [place] [phone] Ester Warren [facility] Start: 10-28-2024 End: 10-28-2024 Patient encounter procedure 10/28/2024 11:00 AM EST Office Visit [facility] [address] [place] [address] Cecy Hernandez, TELEGRAPHIC TYPEWRITER INSTALLER [address] [place] [address] [facility] Start: 10-10-2024 End: 10-10-2024 ambulatory 10/10/2024 8:30 AM EST Infusion Ester Warren [facility] [address] [place] [phone] Ester Warren [facility] Start: 10-07-2024 End: 10-07-2024 Patient encounter procedure 10/07/2024 1:00 PM EST Office Visit [facility] [address] [place] [phone] Cisco Juan MD [address] [place] [phone] [facility] Start: 09-19-2024 End: 09-19-2024 ambulatory 09/19/2024 8:30 AM EST Infusion Ester Warren [facility] [address] [place] [phone] Ester L [facility] Start: 09-12-2024 End: 06-12-2025 C-reactive protein C-reactive protein Lab Routine Primary osteoarthritis of both hands Expected: 09/12/2024 (Approximate), Expires: 06/12/2025 [facility] Comment on above: Expected: 09/12/2024 (Approximate), Expires: 06/12/2025 Start: 09-12-2024 End: 06-12-2025 CBC W Auto Differential panel - Blood CBC auto differential Lab Routine Primary osteoarthritis of both hands Expected: 09/12/2024 (Approximate), Expires: 06/12/2025 [employer] Comment on above: Expected: 09/12/2024 (Approximate), Expires: 06/12/2025 Start: 09-12-2024 End: 06-12-2025 Comprehensive metabolic 2000 panel - Serum or Plasma Comprehensive metabolic panel Lab Routine Primary osteoarthritis of both hands Expected: 09/12/2024 (Approximate), Expires: 06/12/2025 [employer] Comment on above: Expected: 09/12/2024 (Approximate), Expires: 06/12/2025 Start: 09-12-2024 End: 06-12-2025 Erythrocyte sedimentation rate Erythrocyte Sedimentation Rate (ESR) Lab Routine Primary osteoarthritis of both hands Expected: 09/12/2024 (Approximate), Expires: 06/12/2025 [employer] Work Phone: Comment on above: Expected: 09/12/2024 (Approximate), Expires: 06/12/2025 Start: 09-11-2024 End: 09-11-2024 Patient encounter procedure [facility] Start: 08-22-2024 End: 08-22-2024 Patient encounter procedure 08/22/2024 11:00 AM EST Office Visit [facility] [address] [place] [phone] Cisco Juan MD [address] [place] [phone] [facility] Start: 08-19-2024 End: 08-19-2024 Patient encounter procedure 08/19/2024 3:40 PM EST Office Visit [facility] [address] [place] [phone] Cecy Hernandez NP [address] [place] [phone] [facility] Start: 08-17-2024 Hemoglobin A1c measurement Diabetes: Hemoglobin A1C [facility] Start: 07-23-2024 End: 07-23-2024 Patient encounter procedure 07/23/2024 11:20 AM EST Office Visit [facility] [place] [facility] [address] [place] [phone] Maryjane Liang PA [address] [place] [address] [facility] Start: 07-22-2024 End: 07-22-2024 Patient encounter procedure 07/22/2024 6:30 PM EST Office Visit [facility] [address] [place] [phone] Ceyc Hernandez, TELEGRAPHIC TYPEWRITER INSTALLER [address] [place] [phone] Arrived [facility] Comment on above: Arrived Start: 07-18-2024 End: 07-18-2024 Patient encounter procedure 07/18/2024 2:40 PM EST Office Visit [facility] [address] [place] [phone] Cecy Hernandez, TELEGRAPHIC TYPEWRITER INSTALLER [address] [place] [phone] [facility] Start: 06-27-2024 Influenza vaccination Influenza Vacc ine (#1) [facility] Comment on above: Postponed from 04/28 (Patient Does Not Have Time) Start: 06-12-2024 End: 06-12-2025 CK Total CK Total Lab Routine Primary osteoarthritis of both hands Expected: 06/12/2024 (Approximate), Expires: 06/12/2025 [facility] Comment on above: Expected: 06/12/2024 (Approximate), Expires: 06/12/2025 Start: 06-12-2024 End: 06-12-2025 Cyanocobalamin vitamin b-12 Vitamin B12 Lab Routine Primary osteoarthritis of both hands Expected: 06/12/2024, Expires: 06/12/2025 [facility] Comment on above: Expected: 06/12/2024 , Expires: 06/12/2025 Start: 06-12-2024 End: 06-12-2025 LDH LDH Lab Routine Primary osteoarthritis of both hands Expected: 06/12/2024 (Approximate), Expires: 06/12/2025 [email or web address] Comment on above: Expected: 06/12/2024 (Approximate), Expires: 06/12/2025 Start: 06-12-2024 End: 06-12-2025 Thyrotropin [Units/volume] in Serum or Plasma [facility] Comment on above: Expected: 06/12/2024 , Expires: 06/12/2025 Start: 06-12-2024 End: 06-12-2025 Unlisted Lab Test Unlisted Lab Test Lab Routine Myopathy Expected: 06/12/2024, Expires: 06/12/2025 [facility] Comment on above: Expected: 06/12/2024 , Expires: 06/12/2025 Start: 06-12-2024 End: 06-12-2025 Vitamin D 25 hydroxy Vitamin D 25 hydroxy Lab Routine Primary osteoarthritis of both hands Expected: 06/12/2024, Expires: 06/12/2025 [facility] Comment on above: Expected: 06/12/2024 , Expires: 06/12/2025 Start: 05-21-2024 End: 05-21-2025 Basic metabolic 1998 panel - Serum or Plasma Basic metabolic panel Lab Routine Essential hypertension, benign (CMS/HCC) Type 2 diabetes mellitus without complication, without long-term current use of insulin (CMS/HCC) Expected: 05/21/2024 (Approximate), Expires: 05/21/2025 [facility] [employer] Work Phone: Comment on above: Expected: 05/21/2024 (Approximate), Expires: 05/21/2025 Start: 05-21-2024 End: 05-21-2025 Hemoglobin A1c/Hemoglobin.total in Blood Hemoglobin A1c Lab Routine Type 2 diabetes mellitus without complication, without long-term current use of insulin (CMS/HCC) Expected: 05/21/2024 (Approximate), Expires: 05/21/2025 [facility] Comment on above: Expected: 05/21/2024 (Approximate), Expires: 05/21/2025 Start: 05-21-2024 End: 05-21-2024 Patient encounter procedure [facility] Comment on above: Essential hypertensi on, benign (CMS/HCC) (Primary Dx); Type 2 diabetes mellitus without complication, without long-term current use of insulin (CMS/HCC) Start: 05-03-2024 End: 05-03-2024 ambulatory 05/03/2024 1:00 PM EDT Evaluation [facility] [address] [place] [phone] Deanna Harley, OT [address] [place] [address] [facility] Start: 05-01-2024 End: 05-01-2024 Patient encounter procedure [facility] [place] [facility] Comment on above: Arrived Start: 04-28-2024 COVID-19 VACCINE ( season) COVID-19 VACCINE ( season) [facility] Start: 04-28-2024 COVID-19 Vaccine ( season) COVID-19 Vaccine ( season) [facility] Start: 04-28-2024 Covid-19 Vaccine ( season) Covid-19 Vaccine ( season) [facility] Start: 04-28-2024 Influenza vaccination INFLUENZA VACC INE (#1) [facility] Start: 04-24-2024 End: 04-24-2025 Cobalamin (Vitamin B12) [Mass/volume] in Serum or Plasma Vitamin B12 Lab Routine Upper extremity weakness Expected: 04/24/2024 (Approximate), Expires: 04/24/2025 [facility] Work Phone: Comment on above: Expected: 04/24/2024 (Approximate), Expires: 04/24/2025 Start: 04-04-2024 DTaP,Tdap and Td Vaccines (2 - Td or Tdap) DTaP,Tdap and Td Vaccines (2 - Td or Tdap) [facility] Start: 04-04-2024 Tetanus vaccination TETANUS [facility] Start: 04-04-2024 Urine microalbumin profile DTaP,Tdap,Td Vaccine (2 - Td or Tdap) [facility] Start: 03-30-2024 End: 03-30-2024 [facility] Start: 03-30-2024 Physical therapy procedure [facility] Start: 03-30-2024 Referral to neurologist [facility] Start: 03-30-2024 Referral to occupati onal therapist [facility] Start: 03-30-2024 [facility] Start: 03-30-[address] [facility] Start: 03-29-2024 CT of head without contrast CT head/brain wo con [facility] Start: 03-29-2024 CT Unspecified body region WO contrast [facility] Start: 03-25-2024 [facility] Start: 03-25-2024 Cerebrospinal fluid culture [facility] Start: 03-24-2024 [facility] Start: 03-23-2024 [facility] Start: 03-23-[address] [facility] Start: 03-23-2024 Referral to neurologist [facility] Start: 01-14-2024 Urine screening for protein Diabetes: Urine Protein Screening [facility] Start: 01-03-2024 End: 01-03-2024 Patient encounter procedure 01/03/2024 3:00 PM EDT Office Visit [facility] [address] [phone] Lula Cota MD [address] [id number] [facility] Start: 12-27-2023 Screening for malign ant neoplasm of colon [facility] Start: 11-16-2023 End: 11-16-2023 Patient encounter procedure 11/16/2023 1:20 PM EDT Office Visit [facility] [address] [place] [address] Cecy Hernandez NP [address] [place] [address] [facility] Start: 11-03-2023 Hemoglobin A1c measurement Diabetes: Hemoglobin A1C [facility] Start: 04-28-2023 Influenza vaccination Influenza Vacc ine [facility] Start: 2022 Screening for malign ant neoplasm of colon [facility] Start: 04-28-2020 Influenza vaccination INFLUENZA (#1) [facility] Start: 2017 Lipid panel LIPID SCREENING [facility] Start: 2012 Lipid panel Lipid Screening [facility] Start: 2012 LIPID SCREEN LIPID SCREEN [facility] Start: 1996 DTaP,Tdap and Td Vaccines (1 - Tdap) DTaP,Tdap and Td Vaccines (1 - Tdap) [facility] Start: 1996 Hepatitis B vaccination HEP B VACCINE (1 of 3 - 19+ 3-dose series) [facility] Start: 1996 Hepatitis B Vaccine (1 of 3 - 19+ 3-dose series) Hepatitis B Vaccine (1 of 3 - 19+ 3-dose series) [facility] Start: 1996 Urine microalbumin profile DTAP,TDAP,TD (1 - Tdap) [facility] Start: 1995 Adult BMI Follow Up Plan Adult BMI Follow Up Plan [facility] Start: 1995 Adult BMI Screening Adult BMI Screen ing [facility] Start: 1995 Anxiety Screening Anxiety Screening [facility] Start: 1995 Depression Screening Depression Scre [facility] Start: 1995 Diabetic foot examination Diabetic Foot Exam [facility] Start: 1995 HIV SCREENING HIV SCREENING [facility] Start: 1992 HIV screening HIV SCREENING DISCUSSION [facility] Start: 1989 Depression Screening Depression Scre [facility] Start: 1989 Tobacco Screening Tobacco Screening [facility] Start: 1987 Glaucoma screening Diabetes: R etinopathy Screening [facility] Start: 1977 Glaucoma screening Diabetic Op hthalmology Exam [facility] Start: 1977 Hepatitis C screening HEPATITI S C VIRUS SCREENING [facility] Start: 1977 Potassium [Moles/vol ume] in Serum or Plasma POTASSIUM [facility] Start: 1977 Screening for malign ant neoplasm of colon [facility] Start: 1977 Urine screening for protein Urine Microalbumin [facility] Albumin [Mass/volume ] in Cerebral spinal fluid [facility] Albumin [Mass/volume ] in Serum or Plasma [facility] Anion gap measurement [facility] Bacteria identified in Unspecified specimen by Aerobe culture [facility] Bacteria identified in Unspecified specimen by Anaerobe culture [facility] Basophils [#/volume] in Blood by Automated count [facility] Basophils/100 leukoc ytes in Blood by Automated count [facility] Borrelia burgdorferi IgG+IgM Ab [Presence] in Serum by Immunoassay [facility] C reactive protein [Mass/volume] in Serum or Plasma C-reactive protein Lab Routine Primary osteoarthritis of both hands 06/12/2024 2:11 PM EDT [facility] CBC W Auto Different ial panel - Blood CBC auto differential Lab Routine Primary osteoarthritis of both hands 06/12/2024 2:11 PM EDT [facility] Cerebrospinal fluid IgG ratio and IgG index [facility] Cobalamin (Vitamin B 12) [Mass/volume] in Serum or Plasma Vitamin B12 Lab Routine Primary osteoarthritis of both hands 06/12/2024 2:11 PM EDT [facility] Comprehensive metabo lic 2000 panel - Serum or Plasma Comprehensive metabolic panel Lab Routine Primary osteoarthritis of both hands 06/12/2024 2:11 PM EDT [facility] Creatine kinase [Enzymatic activity/volume] in Serum or Plasma CK Total Lab Routine Primary osteoarthritis of both hands 06/12/2024 2:11 PM EDT [facility] End: 07-10-2025 EMG(NEURO/NI) EMG(NEURO/NI) EMG Routine Brachial plexopathy 1 Occurrences starting 07/10/2024 until 07/10/2025 [facility] Work Phone: Comment on above: 1 Occurrences starti ng 07/10/2024 until 07/10/2025 Eosinophils/100 leukocytes in Blood by Automated count [facility] Erythrocyte distribu tion width [Ratio] by Automated count [facility] Erythrocyte sedimentation rate by Photometric method Erythrocyte Sedimentation Rate (ESR) Lab Routine Primary osteoarthritis of both hands 06/12/2024 2:11 PM EDT [facility] Erythrocytes [#/volu me] in Blood [facility] Hematocrit [Volume Fraction] of Blood [facility] Hemoglobin [Mass/vol ume] in Blood [facility] IgG [Mass/volume] in Cerebral spinal fluid [facility] IgG [Mass/volume] in Serum or Plasma [facility] IgG clearance/Albumi n clearance [Ratio] in Serum and CSF [facility] IgG synthesis rate [Mass/time] in Serum and CSF by calculation [facility] Lactate dehydrogenas e [Enzymatic activity/volume] in Serum or Plasma LDH Lab Routine Primary osteoarthritis of both hands 06/12/2024 2:11 PM EDT [facility] Leukocytes [#/volume ] corrected for nucleated erythrocytes in Blood by Automated coun [facility] Leukocytes [#/volume ] in Blood [facility] Lymphocytes [#/volum e] in Blood by Automated count [facility] Lymphocytes/100 leukocytes in Blood by Automated count [facility] MCH [Entitic mass] b y Automated count [facility] MCHC [Mass/volume] b y Automated count [facility] MCV [Entitic volume] by Automated count [facility] Monocytes [#/volume] in Blood by Automated count [facility] Monocytes/100 leukoc ytes in Blood by Automated count [facility] Myoglobin [Mass/volu me] in Serum or Plasma [facility] Neutrophils [#/volum e] in Blood by Automated count [facility] Neutrophils/100 leukocytes in Blood by Automated count [facility] Nucleated erythrocyt es [Presence] in Blood by Automated count [facility] Patient Education Know your Meds [facility] Work Phone: Patient referral [facility] Work Phone: Platelet mean volume [Entitic volume] in Blood by Automated count [facility] Platelets [#/volume] in Blood [facility] Protein fractions.oligoclonal bands.intrathecal [Presence] in Serum and CSF [facility] Unlisted Lab Test Anti-HMGCR Unlisted Lab Test Anti-HMGCR Lab Routine Myopathy 06/12/2024 2:11 PM EDT [facility] Vitamin D+Metabolite s [Mass/volume] in Serum or Plasma Vitamin D 25 hydroxy Lab Routine Primary osteoarthritis of both hands 06/12/2024 2:11 PM EDT [facility] Immunizations Immunization Date Immunization Notes Care Provider Fa cili 05-09-2024 influenza, seasonal, injectable, preservative free Cecy Aichholz TELEGRAPHIC TYPEWRITER INSTALLER Work Phone: [facility] 05-09-2024 unknown vaccine or immune globulin Cecy Aichholz TELEGRAPHIC TYPEWRITER INSTALLER Work Phone: [facility] 05-09-2024 influenza virus vaccine, unspecified formulation Cecy Aichholz TELEGRAPHIC TYPEWRITER INSTALLER Work Phone: [facility] 07-05-2023 influenza, injectabl e, quadrivalent, preservative free Cecy Aichholz TELEGRAPHIC TYPEWRITER INSTALLER Work Phone: [facility] 07-05-2023 influenza virus vaccine, unspecified formulation Cecy Aichholz TELEGRAPHIC TYPEWRITER INSTALLER Work Phone: [facility] 06-06-2023 influenza virus vaccine, unspecified formulation Cecy Aichholz TELEGRAPHIC TYPEWRITER INSTALLER Work Phone: [facility] 06-08-2022 influenza, injectabl e, quadrivalent, preservative free Cecy Aichholz TELEGRAPHIC TYPEWRITER INSTALLER Work Phone: [facility] 05-12-2021 influenza, injectabl e, quadrivalent, preservative free Cecy Aichholz TELEGRAPHIC TYPEWRITER INSTALLER Work Phone: [facility] 12-30-2020 unknown vaccine or immune globulin Cecy Aichholz TELEGRAPHIC TYPEWRITER INSTALLER Work Phone: [facility] 12-02-2020 unknown vaccine or immune globulin Cecy Aichholz TELEGRAPHIC TYPEWRITER INSTALLER Work Phone: [facility] 04-04-2014 tetanus toxoid, redu [place] diphtheria toxoid, and acellular pertussis vaccine, adsorbed Yue Kasia Other [facility] 04-04-2014 unknown vaccine or immune globulin Cecy David TELEGRAPHIC TYPEWRITER INSTALLER Work Phone: [facility] 06-12-2013 influenza virus vaccine, unspecified formulation Haylee Garcia [facility] Payers Date Payer Category Payer Self-pay 2022 Medicaid [id number] 2022 Medicaid [id number] 2013 Medicaid [place] [employer] [place] [employer] MED[employer] [id number] 2013-Present Medicaid [id number] 2013 Self-pay SELF PAY HSP/MED ICAL SELF PAY [id number] 2013-2015 SELF PAY Indemnity [id number] [id number] 1977 Unknown [id number] .16.840.1.051183.3.579.2.647 1977 Unknown [id number] 2.16.840.1.791710.3.579.2.593 1977 Unknown [id number] 2.16.840.1.062878.3.579.2.593 1977 Unknown [id number] 2.16.840.1.068851.3.579.2.593 1977 Unknown [id number] 2.16.840.1.578945.3.579.2.593 1977 Unknown [id number] 2.16.840.1.492503.3.579.2.983 1977 Unknown [id number] 2.16.840.1.415321.3.579.2.983 1977 Unknown [id number] 2.16.840.1.729303.3.579.2.1285 1977 Unknown [id number] 2.16.840.1.127260.3.579.2.1285 1977 Unknown [id number] 2.16.840.1.246448.3.579.2.1285 1977 Unknown [id number] 2.16.840.1.479890.3.579.2.1285 1977 Unknown [id number] 2.840.1.231316.3.579.2.1285 1977 Unknown [id number] 2..840.1.890142.3.579.2.1285 1977 Unknown [id number] 2..840.1.120079.3.579.2.1285 1977 Unknown [id number] 2.16.840.1.015796.3.579.2.1285 1977 Unknown [id number] 2.16.840.1.910596.3.579.2.1285 1977 Unknown [id number] 2.16.840.1.863136.3.579.2.1285 1977 Unknown [id number] 2.16.840.1.351761.3.579.2.1258 1977 Unknown [id number] 2.16.840.1.850877.3.579.2.1258 1977 Unknown [id number] 2.16.840.1.161097.3.579.2.1258 1977 Unknown [id number] 2.16.840.1.294269.3.579.2.1259 1977 Unknown [id number] 2.16.840.1.027338.3.579.2.1258 1977 Unknown [id number] 2.16.840.1.361968.3.579.2.1258 1977 Unknown [id number] 2.16.840.1.256111.3.579.2.1258 1977 Unknown [id number] 2.16.840.1.927919.3.579.2.1258 1977 Unknown [id number] 2.16.840.1.036752.3.579.2.1258 1977 Unknown [id number] 2.16.840.1.156265.3.579.2.1258 1977 Unknown [id number] 2.16.840.1.044879.3.579.2.1258 1977 Unknown [id number] 2.16.840.1.450531.3.579.2.1285 1977 Unknown [id number] 2.16.840.1.139321.3.579.2.1285 1977 Unknown [id number] 2.16.840.1.700766.3.579.2.1285 1977 Unknown [id number] 2.16.840.1.750766.3.579.2.1285 1977 Unknown [id number] 2.16.840.1.107674.3.579.2.1285 1977 Unknown [id number] 2.16.840.1.261346.3.579.2.1285 1977 Unknown [id number] 2.16.840.1.459814.3.579.2.1286 1959 Unknown [id number] 2.16.840.1.668918.19 1959 Unknown [id number] Unknown Unknown [id number] 2.16.840.1.658506.3.579.2.531 Unknown [id number] 2.16.840.1.072625.3.579.2.531 Social History Date Type Detail Facility Start: 05-20-2013 End: 05-01-2024 Tobacco smoking status NHIS Former smoker [facility] Start: 05-20-2013 End: 07-10-2024 Alcohol intake Not Asked [facility] Start: 1975 Sex Assigned At Not on file [facility] Start: 08-16-2023 End: 11-15-2023 Sex Assigned At [facility] History of tobacco use Current smoker [facility] History of tobacco use Cigarette Smoker [facility] Start: 08-16-2023 End: 10-10-2024 Alcohol intake Ex-drinker (finding) [facility] Start: 08-16-2023 End: 11-15-2023 History of Social function [facility] Start: 08-16-2023 Tobacco Comment Last smoked: 5-10 years [facility] Start: 08-16-2023 Alcohol Comment caffeine 1-2 cups per day [facility] Tobacco smoking stat us [facility] Tobacco smoking consumption unknown [facility] Childcare Unknown [facility] Start: 1975 Sex Assigned At Male [facility] Start: 03-04-2024 End: 05-01-2024 Tobacco use and exposure Former smokeless tobacco user [facility] History of tobacco use Chews Tobacco [facility] Start: 05-21-2024 End: 10-07-2024 Alcoholic beverage intake Lifetime non-drinker (finding) [facility] Do you belong to any clubs or organizations such as confucianist groups, unions, fraternal or athletic groups, or [...] [facility] Start: 01-06-2016 Sex Male (finding) [facility] Start: 08-10-2024 Tobacco use and exposure Smokeless tobacco non-user [facility] Has the [employer], or [employer] threatened to shut off services in your home in past 12Mo No [facility] How hard is it for y ou to pay for the very basics like food, housing, medical care, and heating Very hard [facility] Medical Equipment Procedure Code Equipment Code Equipment Origin al Text Equipment Identifier Dates 1 each by Other route Daily as needed [id number] Start: 10-13-2022 End: 10-07-2024 1 each by Other route if needed [id number] Start: 10-13-2022 1 each by Other route Daily [id number] Start: 04-04-2024 End: 07-13-2024 Goals Date Patient Goal Desired Activity /State Personal health goal Comment on above: Formatting of this n ote might be different from the original. Evaluation of progress towards goal: Patient is planning to transition to SNF at discharge. Functional Status Date Assessment Result Facility 03-30-2024 Functional status Patient at Baseline [facility] Work Phone: 03-25-2024 Functional status Patient at Baseline [facility] Work Phone: Mental Status Date Assessment Result Facility 03-30-2024 Cognitive function Cognitive Sta tus Patient at Baseline [facility] Work Phone: 03-25-2024 Cognitive function Cognitive Sta tus Patient at Baseline [facility] Work Phone: Clinical Notes 10-08-2021 to 10-11-2024 Telephone Encounter - Cecy Hernandez NP - 10/11/2024 3:17 PM ESTTelephone Encounter - Cecy Hernandez NP - 10/11/2024 3:17 PM Francis Augustin RN - 10/10/2024 8:30 AM ESTPatient Instructions Note Date & Type Note Facility 10-11-2024 Telephone encounter Note Lauren, I would appreciate any help that you could give my pt. He has : chronic inflammatory demyelinating polyneuropathy. He was in the assisted for a few week for rehab, sent home when insurance would no longer pay, he does not have a permanent address, has been staying on a friends couch, and not really much of a support system around him. He would need help filing for disability, help with food stamps and trying to secure a permanent place to stay Any help you could provide would be great. Cecy [facility] 10-11-2024 Miscellaneous Notes Lauren, I would appreciate any help that you could give my pt. He has : chronic inflammatory demyelinating polyneuropathy. He was in the assisted for a few week for rehab, sent home when insurance would no longer pay, he does not have a permanent address, has been staying on a friends couch, and not really much of a support system around him. He would need help filing for disability, help with food stamps and trying to secure a permanent place to stay Any help you could provide would be great. Cecy documented in this encounter [facility] 10-10-2024 History of Present illness Narrative IVIG with premeds, titrated per protocol, pt tolerated well. documented in this encounter [facility] 10-07-2024 History of Present illness Narrative Images from the original note were not included. [address] [id number] Bhumika Umana . is a 49 y.o. right-handed male with a relevant PMH of RA and DM2 presenting with CIDP. 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 Patient states that since that day he was noticed progressive weakness extending from his hands to his shoulders. Additionally, patient states in June he noticed bilateral lower extremity weakness as well as numbness in the toes. Patient was also noticed in the last month fasciculations in his bilateral thighs. He has had prior workup including, MRI brain and MRI spine which reportedly showed unremarkable and multilevel disc bulge but no cord signal change, edema or enhancement. Patient has had prior CSF studies (May of 2024) showing TNC 3, RBCs 3051, glucose 72, protein 84, no oligoclonal bands, IgG index 0.6, albumin 46, MBP 2 0.7, CSF copper and MMA within normal limits. Serum studies including copper, zinc, thiamine, HIV, B12, and MMA within normal limits. RAVINDER was positive. Additionally, prior OSH EMG in (January of 2024) done early and disease course was read as negative, though on my review of the data (which can be found as a photo in the 07/10/2024 [facility] neuro note), the left median CMAP had an amplitude drop of >40% and the left ulnar CMAP dropped ~35%. The velocity of both nerves was <40 m/s in at least one segment. Additionally, patient stated he has a diagnosis of rheumatoid arthritis in his early 20s and was on methotrexate and Humira prior to COVID and then stopped taking Humira and methotrexate as he was concerned that he may get repeat cellulitis from prior hospitalization. Patient then tried to go to a different jewel inspector recently however that jewel inspector told him he did not have rheumatoid arthritis and was not able to be prescribed back his Humira and methotrexate. He was admitted earlier this month at OSH due to this symptoms. The patient got 2 doses of methylprednisolone 125 mg at outside hospital. During this hospitalization with us, patient received 5 day course of IVIG at 0.4 grams/kilogram daily and was evaluated by rheumatology who started him on initially IV Solu-Medrol 60 mg b.i.d. for 6 doses it was then decreased to Solu-Medrol 60 mg daily and then decrease to prednisone 60 mg daily. Rheumatology evaluated the patient and recommended that he follow up with them outpatient in 3 months. Patient was discontinued off steroids prior to discharge. Patient stated that he felt better in terms of upper and lower extremity strength, however sensation disturbances did not regional climate change analyst the course of his admission. His last dose of IVIG was 08/14. He is next scheduled for IVIG for August. I performed an inpatient EMG on 08/14/24 which showed: Description: The results of the nerve conduction studies are abnormal for: 1) a proximal reduction in the amplitude of the compound muscle action potentials (CMAPs) compared to the distal amplitude consistent with probable partial conduction block in the right median, right peroneal, and bilateral ulnar nerves, 2) reduced amplitude of the sensory nerve action potentials (SNAPs) in all nerves studied, 3) an increase in distal motor latencies in the bilateral median, ulnar, and right tibial nerves, and 4) reduced nerve conduction velocities in all motor nerves. The results of the EMG studies are abnormal for: 1) fasciculation potentials and increased polyphasia in most of the tested muscles of the RUE, 2) an increased incidence of long duration motor unit action potentials (MUAPs) in the right biceps, FDI, APB, TA, gastoc, and VM, and 3) reduced recruitment of MUAPs in the all muscle studies, with the reduced recruitment clearly out of proportion to MUAP duration increases in the muscles of the RUE. 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 There is no electrodiagnostic evidence of myopathy or MNM as clinically queried. See comment. COMMENT: These studies are supportive of a diagnosis of CIDP. I recommend completion of a round of IVIG dosed at 2g/kg, followed by maintenance dosing of IVIG at a dose of 1g/kg q3w at least until outpatient follow up with a neuromuscular specialist. The data tables of this study will be uploaded to [employer]. My exam on that day (which occurred about fci through his IVIG treatment) was as follows: On examination, his cranial nerve exam is normal including full tongue strength. Strength (R/L) is Delts 4/4, Bi 4-/4-, Tri 4+/4+, WE 2/2, FE 08/28, IO 08/28; he is 5/5 in the BLE. Clinical fasciculations noted in right thigh and right triceps and FDI. Sensation is abnormal in the palmar hands, but not proximal to the wrist; he also has abnormal LT distal to the ankles though he does report chronic toe tingling/numbness. He reports intact vibration at the toes but he is quite late in detecting the cessation of vibration. He has 1+ patellar reflexes b/l, a possible trace right biceps reflex, and is otherwise areflexic. Since discharge he reports that he had slow decline since discharge, to the point where he was unable to stand or bring a spoon to his mouth. He was started on prednisone 20 mg yesterday (08/21) and has already seen improvement and can now stand and feed himself. He is at [facility]. He currently needs help bathing, toileting, feeding himself, dressing, etc. No falls. At [facility], he had significant BUE>>BLE weakness. I continued IVIG. I also started pulse dosed Dex 40 mg/day for four consecutive days, dosed with 28 days. He took the 4d course of Dex around new , and then again in late August--however, he reports that he was given inconsistent numbers of pills at the facility he is in and is not sure that he was given the correct dose for either round. Today, he reports that his strength has improved, which has mostly occurred in the past two weeks. He attributes this to Dex. Specifically: He reports that when he took his second round of Dex he had improvement, but then he felt like he was worse on the day after the pulse. This coincided with him being discharged from the facility, and he filled is own script of the Dex. Given concern for worsening, he has changed his dosing and has now been taking Dex 4mg q8h which he has done since for the past week. He got out of rehab last Monday. He is currently unhoused. His first dose of IVIg after hospitalization was delayed by insurance to 5 weeks after discharge. His next dose (q3w) is going to take place on . He is on bactrim, Vit D, and calcium. He was on Prilosec while in the facility but has not been taking it in the past week and denies stomach issue. Current Outpatient Medications Medication Sig Dispense Refill aspirin 81 mg chewable tablet Chew 1 tablet (81 mg total) and swallow in the morning. (Patient not taking: Reported on 09/19/2024) fluticasone propionate (FLONASE) 50 mcg/actuation nasal spray fluticasone propionate 50 mcg/actuation nasal spray,suspension loratadine (CLARITIN) 10 mg tablet Take 1 tablet (10 mg total) by mouth in the morning. metFORMIN (GLUCOPHAGE) 1000 mg tablet Take 1 tablet (1,000 mg total) by mouth in the morning and 1 tablet (1,000 mg total) in the evening. Take with meals. sennosides-docusate sodium (SENOKOT-S) 8.6-50 mg Take 2 tablets by mouth in the morning and 2 tablets before bedtime. tiZANidine (ZANAFLEX) 4 mg tablet Take 1 tablet (4 mg total) by mouth once daily at bedtime. 30 tablet 5 No current facility-administered medications for this visit. Past Medical History: Diagnosis Date Allergic Arthritis Family History Problem Relation Age of Onset Diabetes Mother Cancer Mother Heart attack Father Dementia Paternal Grandmother Past Surgical History: Procedure Laterality Date ADENOIDECTOMY TONSILLECTOMY Allergies Allergen Reactions Penicillins Other reaction(s): Unknown Adhesive Rash [place] Rash Cashew Nut Rash Social History Socioeconomic History Marital status: Single Spouse name: Not on file Number of children: Not on file Years of education: Not on file Highest education level: Not on file Occupational History Not on file Tobacco Use Smoking status: Former Types: Cigarettes Smokeless tobacco: Never Vaping Use Vaping status: Never Used Substance and Sexual Activity Alcohol use: Not Currently Drug use: Never Sexual activity: Defer Other Topics Concern Not on file Social History Narrative Not on file Social Drivers of Health Financial Resource Strain: High Risk (09/17/2024) Overall Financial Resource Strain (CARDIA) Difficulty of Paying Living Expenses: Very hard Food Insecurity: Food Insecurity Present (09/17/2024) Hunger Screening Food Insecurity - Worry: Sometimes True Food Insecurity - Inability: Sometimes True Transportation Needs: Unmet Transportation Needs (09/17/2024) PRAPARE - Transportation Lack of Transportation (Medical): Yes Lack of Transportation (Non-Medical): Yes Physical Activity: Patient Declined (11/15/2023) Received from [facility] Exercise Vital Sign Days of Exercise per Week: Patient declined Minutes of Exercise per Session: Patient declined Stress: Patient Declined (11/15/2023) Received from [facility] [place] [employer] - Occupational Stress Questionnaire Feeling of Stress : Patient declined Social Connections: Moderately Integrated (11/15/2023) Received from [facility] Social Connection and Isolation Panel [NHANES] Frequency of Communication with Friends and Family: Three times a week Frequency of Social Gatherings with Friends and Family: Twice a week Attends Buddhism Services: More than 4 times per year Active Member of Clubs or Organizations: Yes Attends Club or Organization Meetings: More than 4 times per year Marital Status: Never Interpersonal Safety: Not At Risk (08/10/2024) Humiliation, Afraid, Rape, and Kick questionnaire Fear of Current or Ex-Partner: No Emotionally Abused: No Physically Abused: No Sexually Abused: No Housing Instability: High Risk (09/17/2024) Housing Instability Housing Instability: Yes No results displayed because visit has over 200 results. Family history: Grandmother with dementia and stroke. Social History: Denies tobacco, EtOH, or drug use. NEURO EXAM: Mental Status: alert, oriented to situation; fluent speech; normal comprehension of common spoken language; memory intact to the details of the history; follows axial and appendicular commands. Cranial Nerves: facial strength intact, no dysarthria, shoulder shrug symmetric. Motor Exam: normal bulk. No resting/postural/kinetic/intentio n tremor or other extraneous movements. Today's scores listed, with last visit's strength score in parentheses. Delt Biceps Triceps WE FE FDI ADM Right 4 (2) 4- (2) 4+ (4-) 4 (3) 4- (1) 4- (2) 4 (2) Left 4 (2) 4- (2) 4+ (4) 4 (2) 4- (1) 3 (1) 4 (1) IP Ham Quads TA Gastroc Right 5 (5) 5 (5) 4+ (4+) 5 (5) 5 (5) Left 5 (4+) 5 (5) 5 (5) 5 (5) 5 (5) Sensory Exam: intact to LT is abnormal distal to the elbows (same distribution as last visit, but qualitatively improved). Reflexes: R/L: BUE areflexic, Patella absent, Ankle jerks absent. Coordination: Deferred Gait: Relatively narrow based, with very reduced bilateral arm swing IMPRESSION/PLAN: There are no diagnoses linked to this encounter. Bhumika Umana is a 49 y.o. right-handed male with a relevant PMH of RA and DM2 presenting to establish care for CIDP. Symptom onset over the course of summer 2023, with BUE>>BLE involvement. Inpatient EMG by me on 08/14 with clearly demyelinating features. He improved inpatient with IVIG plus steroids. After discharge he was off steroids and had objectively worsened on exam. He was restarted on steroids in late 07/2024 had had significant improvement on this plus IVIG. At the last visit I had planned for pulse dosed steroids--However, the patient reverted to self-dosing these daily given his concern that he was worsening when now taking the steroids. For this reason, we will today switch to daily pred. We will plan to start weaning at our next visit pending clinical response. He will continue mIVIG Pending clinical course, other agents that might be tried are ritux (which he tolerated previously for RA), Vyvgart, or others. Today we connected to given his housing and food instability. Plan: -Stop Dexamethasone 4 -Start prednisone 60 mg daily. -Continue Bactrim 1 DS tab qMond/Monday/Monday as well as vitamin D (at least 200 IU) and calcium (at least 500 mg) daily. -If stomach upset occurs, or if NSAID use is needed, would add omeprazole 40 mg daily. -Continue IVIG q3w at 1g/kg (outside prescriber) Cisco Juan MD Professional Skate[employer] of Neurology [facility] 10/02/24 I spent 45 minutes of total time on the day of the visit. This time was spent preparing for the visit, obtaining and reviewing any outside history/data, taking a history, performing an exam/evaluation, counseling and educating the patient/family about the diagnosis and plan, performing medical decision making, referring to and communicating with other health care referrals, independently interpreting results and documenting in the EMR, and coordinating care. Please see the additional documentation in this note for specific details. documented in this encounter [facility] 10-07-2024 Instructions Cisco uJan MD - 10/07/2024 1:00 PM EST It was a pleasure seeing you in clinic today. Your neurologist: Dr. Cisco Juan Your diagnosis: CIDP Plan: -Stop Dexamethasone -Start prednisone 60 mg daily. -Continue Bactrim 1 tab qMonday/Monday/Monday as well as vitamin D (at least 200 IU) and calcium (at least 500 mg) daily. -If stomach upset occurs, or if NSAID use is needed, would add omeprazole 40 mg daily. -Continue IVIG q3w at 1g/kg (currently prescribed by outside prescriber--please let me know if you need a new prescription from me) Thank you for entrusting me with your care. Cisco Juan MD Professional Skate[employer] of Neurology [facility] 10/07/24 documented in this encounter [facility] 10-07-2024 History of Present illness Narrative Associated Problem(s): Major depressive disorder, recurrent, moderate (CMS/HCC) Hx in the past, was taking celexa prior to his hospitalization However he is not currently taking anything Does have some depression related to all his chronic health ailments, would recommend counseling, at this point we will focus on place to stay etc Associated Problem(s): Upper extremity weakness Clinically reports that he is getting better Does not have any home OT/PT arranged Associated Problem(s): Rheumatoid arthritis with rheumatoid factor, unspecified (CMS/HCC) Continue with rheumatology Associated Problem(s): Type 2 diabetes mellitus without complication, without long-term current use of insulin (CMS/HCC) Check blood sugars daily, notify if <70 or >200. Take medications (pills or insulin) as directed. Monitor for s/s of hypoglycemia (sweaty, dizziness, nausea, vomiting, or shakiness). Watch for increase in thirst, urination, or appetite. Inspect feet frequently monitoring for open wounds , and also recommend yearly eye exam. Pt should attempt to remain as physically active as chronic conditions allow, as well as trying to follow a diet low in carbohydrates, and simple sugars. Current meds: metformin A1c: 6.6% Associated Problem(s): Morbid (severe) obesity due to excess calories (CMS/HCC) Discussed with patient their BMI (actual, verses recommended). We have also discussed lifestyle modifications: attempts to perform physical activity as chronic conditions allow, also to monitor dietary intake: increasing protein/fruits/veggies and lowering carb intake (unless contraindicated). Limit sodas, juices, and sugary drinks. Associated Problem(s): Essential hypertension, benign (CMS/HCC) Please check blood pressure daily and record DASH diet Limit caffeine Take medication as directed Contact office if chest pain, pressure, dizziness, shortness of breath, swelling legs Recommend slow position changes Current meds: no current meds at this time Associated Problem(s): CIDP (chronic inflammatory demyelinating polyneuropathy) (CMS/HCC) See chart for HX of hospitalization and course Cont with Rheumatology is getting a new Rheumatology in [place] through [facility] Is getting IgG therapy, is going to [facility] every 3 weeks Not certain how long he will be on therapy Images from the original note were not included. Bhumika Umana is a 49 y.o. male presents with chief complaint of No chief complaint on file. HPI: correction FU: for Hypertension Pertinent negatives include no blurred vision. Diabetes He presents for his follow-up diabetic visit. He has type 2 diabetes mellitus. His disease course has been stable. Hypoglycemia symptoms include nervousness/anxiousness. Pertinent negatives for hypoglycemia include no dizziness, hunger, seizures, sleepiness, speech difficulty or tremors. Associated symptoms include fatigue and weakness. Pertinent negatives for diabetes include no blurred vision, no polydipsia, no polyuria, no visual change and no weight loss. There are no hypoglycemic complications. Symptoms are stable. There are no diabetic complications. Risk factors for coronary artery disease include diabetes mellitus, male sex, obesity, hypertension and sedentary lifestyle. Current diabetic treatment includes oral agent (monotherapy). He is compliant with treatment all of the time. An AMITA inhibitor/angiotensin II receptor darline is not being taken. He does not see a catheterization laboratory technician.Eye exam is not current. SUBJECTIVE: MEDICATIONS: Current Outpatient Medications Medication Instructions Allergy Relief 10 mg, Oral, Daily Calcium Carb-Cholecalciferol (Calcium 500+D) 500-10 MG-MCG tablet 1 tablet, Oral, 2 times daily dexAMETHasone (DECADRON) 4 mg, Oral, Daily with breakfast fluticasone (Flonase) 50 MCG/ACT nasal spray 2 sprays, Each Nostril, Daily meloxicam (MOBIC) 15 mg, Daily metFORMIN (GLUCOPHAGE) 1,000 mg, Oral, 2 times daily with meals omeprazole (PRILOSEC) 20 mg, Daily senna-docusate (Senna S) 8.6-50 MG tablet 2 tablets, Every 12 hours sulfamethoxazole-trimethoprim (Bactrim DS) 800-160 MG per tablet 1 tablet, Oral, Once tiZANidine (ZANAFLEX) 4 mg, Oral, Nightly PRN ALLERGIES: Allergies Allergen Reactions [place] Oil Hives Cashew Nut (Anacardium Occidentale) Skin Test Hives Cashew Nut Oil Dermatitis Other Unknown Oxytetracycline Unknown Penicillin G Unknown Penicillins Pedi-Pre Tape [place] [Wound Dressing Adhesive] Rash REVIEW OF SYMPTOMS: Review of Systems Constitutional: Positive for fatigue. Negative for activity change, appetite change, unexpected weight change and weight loss. HENT: Negative for ear pain, nosebleeds, sneezing, trouble swallowing and voice change. Eyes: Negative for blurred vision, pain, discharge and visual disturbance. Respiratory: Negative for apnea, chest tightness and wheezing. Cardiovascular: Negative for leg swelling. Gastrointestinal: Negative for abdominal distention, blood in stool, constipation and diarrhea. Genitourinary: Negative for decreased urine volume, difficulty urinating, dysuria and hematuria. Musculoskeletal: Positive for arthralgias, gait problem and myalgias. Skin: Negative for color change. Neurological: Positive for weakness. Negative for dizziness, tremors, seizures and speech difficulty. Psychiatric/Behavioral: Negative for agitation, decreased concentration, hallucinations, self-injury and suicidal ideas. The patient is nervous/anxious. Depression Hematological: Negative for adenopathy. Does [...] (BMI) of 45.0 to 49.9 in adult ([facility]) 08/16/2023 Depression, controlled ([place]) Epigastric pain Hypertension ([place]) immunosupression Non compliance w medication regimen Non-compliant patient EDDI (obstructive sleep apnea) 11/16/2023 RA (rheumatoid arthritis) ([facility]) Seasonal allergies Tonsillitis as child Type 2 diabetes mellitus without complication, without long-term current use of insulin ([place]) 08/16/2023 Past Surgical History: Procedure Laterality Date ADENOIDECTOMY T&A TONSILLECTOMY T&A family history includes Cancer in his mother; Diabetes in his mother; Heart disease in his father and maternal grandfather; Hypertension in his maternal grandmother and mother; Stroke in his paternal grandmother; colon in his mother. OBJECTIVE: Visit Vitals BP 132/84 (BP Location: Right arm, Patient Position: Sitting, BP Cuff Size: Large adult) Pulse 68 Temp 98.5 F (Temporal) Resp 19 Ht 6' 3 Wt 304 lb SpO2 98% BMI 38.00 kg/m Smoking Status Former BSA 2.7 m Physical Exam Vitals and nursing note reviewed. Constitutional: General: He is not in acute distress. Appearance: Normal appearance. He is obese. He is ill-appearing (chronically ill). He is not toxic-appearing. HENT: Head: Normocephalic. Right Ear: Tympanic membrane, ear canal and external ear normal. Left Ear: Tympanic membrane, ear canal and external ear normal. Nose: Congestion present. No rhinorrhea. Mouth/Throat: Mouth: Mucous membranes are moist. Pharynx: Oropharynx is clear. No oropharyngeal exudate or posterior oropharyngeal erythema. Eyes: Extraocular Movements: Extraocular movements intact. Conjunctiva/sclera: Conjunctivae normal. Neck: Vascular: No carotid bruit. Cardiovascular: Rate and Rhythm: Normal rate and regular rhythm. Pulses: Normal pulses. Heart sounds: Normal heart sounds. Pulmonary: Effort: Pulmonary effort is normal. No respiratory distress. Breath sounds: Normal breath sounds. No wheezing. Abdominal: General: Bowel sounds are normal. Palpations: Abdomen is soft. There is no mass. Tenderness: There is no abdominal tenderness. There is no guarding. Hernia: No hernia is present. Musculoskeletal: Cervical back: Neck supple. Right lower leg: Edema (trace-1+ pre tibial/pedal) present. Left lower leg: Edema (trace-1+ pretibial/pedal edema) present. Comments: Generalized muscle atrophy, however more UE movement and strength when compared to last visit MMT bilat LE: 4-4.5/5 bilat DTR's diminished bilat UE/LE Gait is steady Lymphadenopathy: Cervical: No cervical adenopathy. Skin: General: Skin is warm and dry. Capillary Refill: Capillary refill takes 2 to 3 seconds. Neurological: General: No focal deficit present. Mental Status: He is alert. Cranial Nerves: No cranial nerve deficit. Deep Tendon Reflexes: Reflexes normal. Psychiatric: Mood and Affect: Mood normal. Behavior: Behavior normal. Thought Content: Thought content normal. Judgment: Judgment normal. ASSESSMENT AND PLAN: Follow up in about 3 days (around 10/10/2024) for Recheck. Problem List Items Addressed This Visit Essential hypertension, benign (CMS/HCC) Please check blood pressure daily and record DASH diet Limit caffeine Take medication as directed Contact office if chest pain, pressure, dizziness, shortness of breath, swelling legs Recommend slow position changes Current meds: no current meds at this time Type 2 diabetes mellitus without complication, without long-term current use of insulin (CMS/HCC) Check blood sugars daily, notify if <70 or >200. Take medications (pills or insulin) as directed. Monitor for s/s of hypoglycemia (sweaty, dizziness, nausea, vomiting, or shakiness). Watch for increase in thirst, urination, or appetite. Inspect feet frequently monitoring for open wounds , and also recommend yearly eye exam. Pt should attempt to remain as physically active as chronic conditions allow, as well as trying to follow a diet low in carbohydrates, and simple sugars. Current meds: metformin A1c: 6.6% Morbid (severe) obesity due to excess calories (CMS/HCC) Discussed with patient their BMI (actual, verses recommended). We have also discussed lifestyle modifications: attempts to perform physical activity as chronic conditions allow, also to monitor dietary intake: increasing protein/fruits/veggies and lowering carb intake (unless contraindicated). Limit sodas, juices, and sugary drinks. Rheumatoid arthritis with rheumatoid factor, unspecified (CMS/HCC) Continue with rheumatology Upper extremity weakness Clinically reports that he is getting better Does not have any home OT/PT arranged Major depressive disorder, recurrent, moderate (CMS/HCC) Hx in the past, was taking celexa prior to his hospitalization However he is not currently taking anything Does have some depression related to all his chronic health ailments, would recommend counseling, at this point we will focus on place to stay etc RESOLVED: Essential (primary) hypertension (CMS/HCC) Body mass index (BMI) 39.0-39.9, adult RESOLVED: Type 2 diabetes mellitus without complications (CMS/HCC) Relevant Orders POCT glycosylated hemoglobin (Hb A1C) docked device (Completed) CIDP (chronic inflammatory demyelinating polyneuropathy) (CMS/HCC) - Primary See chart for HX of hospitalization and course Cont with Rheumatology is getting a new Rheumatology in [place] through [facility] Is getting IgG therapy, is going to [facility] every 3 weeks Not certain how long he will be on therapy documented in this encounter [facility] 10-07-2024 Instructions Cecy Hernandez NP - 10/07/2024 10:30 AM EST Stripper Machine Operator: to help with finding stable housing, possible PT/OT Depression/anxiety: referral to counseling Continue with Neurology and Rheumatology documented in this encounter [facility] 09-19-2024 History of Present illness Narrative The patient is here for IVIG He states he previously had it in the hospital while inpatient and denies reactions Vitals are wnl PIV started with brisk blood return noted Premeds given oral and IVP D5 started at KVO for mainline IVIG started and titrated increase rate per protocol Patient tolerated well PIV flushed and removed Patient discharged in stable condition to facility's transportation documented in this encounter [facility] 09-11-2024 History of Present illness Narrative Images from the original note were not included. [id number] [facility] [address] [facility] [id number] Date of Service: 09/11/2024 Subjective: Bhumika Umana Jr. is a 49 y.o. male who presents today for evaluation history of rheumatoid arthritis. Patient is seen at the request of MIGUEL ANNE. This is follow-up visit with this patient who is 48-year-old male patient presenting today as an established patient for follow-up of osteoarthritis of the hands, history of rheumatoid arthritis , diabetic cheiroarthropathy, skin psoriasis who was seen 1st time 02/14/2023. Last time the clinic was 06/12/2024 Patient symptoms started when he was 19-year-old [...] and CRP normal, CMP normal, CBC normal, Lab tests since May, RAVINDER screen negative, CCP >300, ESR CRP normal, CK, microglobulin negative, VIJAY panel negative, complements normal, HMG-CoA Reductase Ab negative, vitamin B12 normal, Current medications amitriptyline, meloxicam, Zanaflex. 06/12/2024 patient did have pain and weakness in the upper extremities with no definite joint swelling but pain in addition to fatigued. Under history patient was admitted to the hospital in July with severe weakness was diagnosed to have CIDP, was given IV steroid and IV IG. He is on no medications from this clinic at this point, still has muscle weakness and neuropathic pain The following portions of the patient's history were reviewed and updated as appropriate: allergies, current medications, past family history, past medical history, past social history, past surgical history and problem list. Review of Systems: Review of Systems Constitutional: Negative for fatigue. HENT: Dry mouth Eyes: Dry eye Musculoskeletal: Negative for arthralgias and myalgias. Mild pain Neurological: Positive for weakness and numbness. Psychiatric/Behavioral: Negative for sleep disturbance. Current Outpatient Medications Medication Sig Dispense Refill aspirin 81 mg chewable tablet Chew 1 tablet (81 mg total) and swallow in the morning. fluticasone propionate (FLONASE) 50 mcg/actuation nasal spray fluticasone propionate 50 mcg/actuation nasal spray,suspension loratadine (CLARITIN) 10 mg tablet Take 1 tablet (10 mg total) by mouth in the morning. metFORMIN (GLUCOPHAGE) 1000 mg tablet Take 1 tablet (1,000 mg total) by mouth in the morning and 1 tablet (1,000 mg total) in the evening. Take with meals. sennosides-docusate sodium (SENOKOT-S) 8.6-50 mg Take 2 tablets by mouth in the morning and 2 tablets before bedtime. tiZANidine (ZANAFLEX) 4 mg tablet Take 1 tablet (4 mg total) by mouth once daily at bedtime. (Patient not taking: Reported on 08/09/2024) 30 tablet 5 No current facility-administered medications [...] limited hand joint mobility Upper limb muscles , unable to lift his arms Skin: General: Skin is warm and dry. [...] LANG-28 (CRP): -- LANG-28 (ESR): -- Tender (ALNG-28): -- Swollen (LANG-28): -- BP 128/74 Resp 18 Ht 190.5 cm (6' 3 ) Wt (!) 137.9 kg (304 lb) BMI 38.00 kg/m : reviewed Labs and Imaging: reviewed and discussed with the patient during the visit.I Lab Results Component Value Date WBC 15.7 (H) 08/15/2024 HGB 15.1 08/15/2024 HCT 44.6 08/15/2024 MCV 88 08/15/2024 CRP 0.5 08/10/2024 C3 153 04/17/2024 C4 33 04/17/2024 AST 14 08/15/2024 Imaging: X-ray hands as per my review degenerative arthritis of the wrists as well as MCPs with no erosions. X-ray sacroiliac joints as per my review no evidence of sclerosis or erosions. X-ray lumbar spine as per my review degenerative change Assessment and Plan: Bhumika Umana . is a 49 y.o. male patient with: 1. Primary osteoarthritis of both hands - Erythrocyte Sedimentation Rate (ESR); Future - C-reactive protein; Future 2. CIDP (chronic inflammatory demyelinating polyneuropathy) ([facility]) 3. Diabetic cheirarthropathy ([facility]) At this point patient patient has been in treatment for CIDP . Patient wanted not to receive previous medications from this clinic. Will re-evaluate condition in 6 months with lab tests before visit. Is under the care of neurologist This note was created with the assistance of a speech recognition program. While intending to generate a timely document that accurately reflects the content of the visit, no guarantee can be provided that every grammatical or spelling mistake has been or will be identified or corrected. Thank you for your understanding. [facility] Dr. Lula Cota MD [address], [address] [place] [address] Office: [phone] documented in this encounter [facility] 08-23-2024 Miscellaneous Notes Chelly the organ recovery coordinator from [facility] called and asked to speak the Infusion Nurse regarding the patient IVIG Treatment. She would like to discuss possible location for the patient to have this done. Chelly can be reached back at [phone] Called Chelly back and let her know Dr. Juan had sent a request to [facility] ([phone]) to request an appointment for this. She voiced understanding. documented in this encounter [facility] 08-23-2024 Telephone encounter Note Chelly the organ recovery coordinator from [facility] called and asked to speak the Infusion Nurse regarding the patient IVIG Treatment. She would like to discuss possible location for the patient to have this done. Chelly can be reached back at [phone] [facility] 08-23-2024 Telephone encounter Note Called Chelly back and let her know Dr. Juan had sent a request to [facility] ([phone]) to request an appointment for this. She voiced understanding. [facility] [employer] 08-22-2024 History of Present illness Narrative Images from the original note were not included. [address] [id number] Bhumika Umana Jr. is a 49 y.o. right-handed male with a relevant PMH of RA and DM2 presenting to establish care for CIDP. 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 Patient states that since that day he was noticed progressive weakness extending from his hands to his shoulders. Additionally, patient states in June he noticed bilateral lower extremity weakness as well as numbness in the toes. Patient was also noticed in the last month fasciculations in his bilateral thighs. He has had prior workup including, MRI brain and MRI spine which reportedly showed unremarkable and multilevel disc bulge but no cord signal change, edema or enhancement. Patient has had prior CSF studies (May of 2024) showing TNC 3, RBCs 3051, glucose 72, protein 84, no oligoclonal bands, IgG index 0.6, albumin 46, MBP 2 0.7, CSF copper and MMA within normal limits. Serum studies including copper, zinc, thiamine, HIV, B12, and MMA within normal limits. RAVINDER was positive. Additionally, prior OSH EMG in (January of 2024) done early and disease course was read as negative, though on my review of the data (which can be found as a photo in the 07/10/2024 [facility] neuro note), the left median CMAP had an amplitude drop of >40% and the left ulnar CMAP dropped ~35%. The velocity of both nerves was <40 m/s in at least one segment. Additionally, patient stated he has a diagnosis of rheumatoid arthritis in his early 20s and was on methotrexate and Humira prior to COVID and then stopped taking Humira and methotrexate as he was concerned that he may get repeat cellulitis from prior hospitalization. Patient then tried to go to a different jewel inspector recently however that jewel inspector told him he did not have rheumatoid arthritis and was not able to be prescribed back his Humira and methotrexate. He was admitted earlier this month at OSH due to this symptoms. The patient got 2 doses of methylprednisolone 125 mg at outside hospital. During this hospitalization with us, patient received 5 day course of IVIG at 0.4 grams/kilogram daily and was evaluated by rheumatology who started him on initially IV Solu-Medrol 60 mg b.i.d. for 6 doses it was then decreased to Solu-Medrol 60 mg daily and then decrease to prednisone 60 mg daily. Rheumatology evaluated the patient and recommended that he follow up with them outpatient in 3 months. Patient was discontinued off steroids prior to discharge. Patient stated that he felt better in terms of upper and lower extremity strength, however sensation disturbances did not regional climate change analyst the course of his admission. His last dose of IVIG was 08/14. He is next scheduled for IVIG for August. I performed an inpatient EMG on 08/14/24 which showed: Description: The results of the nerve conduction studies are abnormal for: 1) a proximal reduction in the amplitude of the compound muscle action potentials (CMAPs) compared to the distal amplitude consistent with probable partial conduction block in the right median, right peroneal, and bilateral ulnar nerves, 2) reduced amplitude of the sensory nerve action potentials (SNAPs) in all nerves studied, 3) an increase in distal motor latencies in the bilateral median, ulnar, and right tibial nerves, and 4) reduced nerve conduction velocities in all motor nerves. The results of the EMG studies are abnormal for: 1) fasciculation potentials and increased polyphasia in most of the tested muscles of the RUE, 2) an increased incidence of long duration motor unit action potentials (MUAPs) in the right biceps, FDI, APB, TA, gastoc, and VM, and 3) reduced recruitment of MUAPs in the all muscle studies, with the reduced recruitment clearly out of proportion to MUAP duration increases in the muscles of the RUE. 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 There is no electrodiagnostic evidence of myopathy or MNM as clinically queried. See comment. COMMENT: These studies are supportive of a diagnosis of CIDP. I recommend completion of a round of IVIG dosed at 2g/kg, followed by maintenance dosing of IVIG at a dose of 1g/kg q3w at least until outpatient follow up with a neuromuscular specialist. The data tables of this study will be uploaded to [employer]. My exam on that day (which occurred about fci through his IVIG treatment) was as follows: On examination, his cranial nerve exam is normal including full tongue strength. Strength (R/L) is Delts 4/4, Bi 4-/4-, Tri 4+/4+, WE 2/2, FE 08/28, IO 08/28; he is 5/5 in the BLE. Clinical fasciculations noted in right thigh and right triceps and FDI. Sensation is abnormal in the palmar hands, but not proximal to the wrist; he also has abnormal LT distal to the ankles though he does report chronic toe tingling/numbness. He reports intact vibration at the toes but he is quite late in detecting the cessation of vibration. He has 1+ patellar reflexes b/l, a possible trace right biceps reflex, and is otherwise areflexic. Since discharge: he reports that he had slow decline since discharge, to the point where he was unable to stand or bring a spoon to his mouth. He was started on prednisone 20 mg yesterday (08/21) and has already seen improvement and can now stand and feed himself. He is at [facility]. He currently needs help bathing, toileting, feeding himself, dressing, etc. No falls. Current Outpatient Medications Medication Sig Dispense Refill aspirin 81 mg chewable tablet Chew 1 tablet (81 mg total) and swallow in the morning. fluticasone propionate (FLONASE) 50 mcg/actuation nasal spray fluticasone propionate 50 mcg/actuation nasal spray,suspension loratadine (CLARITIN) 10 mg tablet Take 1 tablet (10 mg total) by mouth in the morning. metFORMIN (GLUCOPHAGE) 1000 mg tablet Take 1 tablet (1,000 mg total) by mouth in the morning and 1 tablet (1,000 mg total) in the evening. Take with meals. sennosides-docusate sodium (SENOKOT-S) 8.6-50 mg Take 2 tablets by mouth in the morning and 2 tablets before bedtime. predniSONE (DELTASONE) 20 mg tablet Take 1 tablet (20 mg total) by mouth in the morning. tiZANidine (ZANAFLEX) 4 mg tablet Take 1 tablet (4 mg total) by mouth once daily at bedtime. (Patient not taking: Reported on 08/22/2024) 30 tablet 5 No current facility-administered medications for this visit. Past Medical History: Diagnosis Date Allergic Arthritis Family History Problem Relation Age of Onset Diabetes Mother Cancer Mother Heart attack Father Dementia Paternal Grandmother Past Surgical History: Procedure Laterality Date ADENOIDECTOMY TONSILLECTOMY Allergies Allergen Reactions Penicillins Other reaction(s): Unknown Adhesive Rash [place] Rash Cashew Nut Rash Social History Socioeconomic History Marital status: Single Spouse name: Not on file Number of children: Not on file Years of education: Not on file Highest education level: Not on file Occupational History Not on file Tobacco Use Smoking status: Former Types: Cigarettes Smokeless tobacco: Never Vaping Use Vaping status: Never Used Substance and Sexual Activity Alcohol use: Not Currently Drug use: Never Sexual activity: Defer Other Topics Concern Not on file Social History Narrative Not on file Social Drivers of Health Financial Resource Strain: Medium Risk (11/15/2023) Received from [facility] Overall Financial Resource Strain (CARDIA) Difficulty of Paying Living Expenses: Somewhat hard Food Insecurity: Food Insecurity Present (08/10/2024) Hunger Screening Food Insecurity - Worry: Often True Food Insecurity - Inability: Often True Transportation Needs: Unmet Transportation Needs (08/10/2024) PRAPARE - Transportation Lack of Transportation (Medical): Yes Lack of Transportation (Non-Medical): Yes Physical Activity: Patient Declined (11/15/2023) Received from [facility] Exercise Vital Sign Days of Exercise per Week: Patient declined Minutes of Exercise per Session: Patient declined Stress: Patient Declined (11/15/2023) Received from [facility] [employer] [place] [employer] - Occupational Stress Questionnaire Feeling of Stress : Patient declined Social Connections: Moderately Integrated (11/15/2023) Received from [facility] Social Connection and Isolation Panel [NHANES] Frequency of Communication with Friends and Family: Three times a week Frequency of Social Gatherings with Friends and Family: Twice a week Attends Buddhism Services: More than 4 times per year Active Member of Clubs or Organizations: Yes Attends Club or Organization Meetings: More than 4 times per year Marital Status: Never Interpersonal Safety: Not At Risk (08/10/2024) Humiliation, Afraid, Rape, and Kick questionnaire Fear of Current or Ex-Partner: No Emotionally Abused: No Physically Abused: No Sexually Abused: No Housing Instability: High Risk (08/10/2024) Housing Instability Housing Instability: Yes No results displayed because visit has over 200 results. Hospital Outpatient Visit on 06/12/2024 Component Date Value Ref Range Status Unlisted lab test 06/12/2024 Sent to reference lab Final Sed Rate 06/12/2024 15 0 - 15 mm/h Final CRP 06/12/2024 0.7 0.000 - 0.744 mg/dL Final Sodium 06/12/2024 137 134 - 146 mmol/L Final Potassium, Bld 06/12/2024 3.8 3.5 - 5.0 mmol/L Final Chloride 06/12/2024 102 98 - 109 mmol/L Final CO2 06/12/2024 25 22 - 32 mmol/L Final Anion gap 06/12/2024 10 5 - 15 mmol/L Final BUN 06/12/2024 13 5 - 23 mg/dL Final Creatinine 06/12/2024 0.68 0.60 - 1.30 mg/dL Final Glucose 06/12/2024 118 (H) 65 - 99 mg/dL Final Calcium 06/12/2024 9.2 8.5 - 10.5 mg/dL Final Total Protein 06/12/2024 7.5 6.0 - 8.0 g/dL Final Albumin 06/12/2024 4.4 3.2 - 5.3 g/dL Final Alkaline Phosphatase 06/12/2024 71 39 - 130 U/L Final AST 06/12/2024 22 0 - 41 U/L Final ALT 06/12/2024 21 0 - 40 U/L Final Total bilirubin 06/12/2024 1.0 0.3 - 1.2 mg/dL Final eGFR (CKD-EPI)non-race dependent 06/12/2024 >90 >59 ml/min/1.73sq.m Final White Blood Cells 06/12/2024 8.1 4.0 - 11.0 X10E9/L Final RBC count 06/12/2024 5.14 4.10 - 5.70 X10E12/L Final Hemoglobin 06/12/2024 14.8 13.0 - 17.0 g/dL Final Hematocrit 06/12/2024 45.8 39 - 49 % Final MCV 06/12/2024 89 80 - 100 fL Final MCH 06/12/2024 28.8 27 - 34 pg Final MCHC 06/12/2024 32.4 32 - 36 g/dL Final RDW 06/12/2024 13.2 11.5 - 15.0 % Final Platelets 06/12/2024 314 150 - 450 X10E9/L Final MPV 06/12/2024 7.4 7 - 12 fL Final % neutrophils 06/12/2024 68.7 % Final % lymphocytes 06/12/2024 20.7 % Final % monocytes 06/12/2024 7.4 % Final % eosinophils 06/12/2024 2.8 % Final % Basophils 06/12/2024 0.4 % Final Neutrophils Absolute (A) 06/12/2024 5.5 1.5 - 6.6 X10E9/L Final Lymphocytes Absolute 06/12/2024 1.7 1.0 - 3.5 X10E9/L Final Monocytes Absolute 06/12/2024 0.6 0 - 0.9 X10E9/L Final Eosinophils Absolute 06/12/2024 0.2 0.0 - 0.4 X10E9/L Final Basophils Absolute 06/12/2024 0.0 0.0 - 0.2 X10E9/L Final LDH 06/12/2024 181 100 - 235 U/L Final Total CK 06/12/2024 54 24 - 195 U/L Final Vit D, 25-Hydroxy 06/12/2024 12.5 (L) 30 - 100 ng/mL Final Vitamin B-12 06/12/2024 335 180 - 914 pg/mL Final TSH 06/12/2024 1.23 0.49 - 4.67 uIU/mL Final Test name 06/12/2024 HMGCR 3 HYDROXY 3 METHYLGLUTARYL COENZYME A HMG COA REDUCTASE SERUM Final Test result 06/12/2024 SEE COMMENTS 06/14/2024 11:50 PM Final Family history: Grandmother with dementia and stroke. Social History: Denies tobacco, EtOH, or drug use. NEURO EXAM: Mental Status: alert, oriented to situation; fluent speech; normal comprehension of common spoken language; memory intact to the details of the history; follows axial and appendicular commands. Cranial Nerves: VFFTC, PERRL, EOMI without nystagmus, facial strength intact, tongue/palate midline, no dysarthria, tongue bulk and strength normal, shoulder shrug symmetric. Motor Exam: normal bulk and tone, no pronator drift. Finger and foot taps fast and symmetric. No resting/postural/kinetic/intentio n tremor or other extraneous movements. Delt Biceps Triceps WE FE FDI ADM Right 2 2 4- 3 1 2 2 Left 2 2 4 2 1 1 1 IP Ham Quads TA EHL Gastroc FE FI Right 5 5 4+ 5 5 5 5 5 Left 4+ 5 5 5 5 5 5 5 Sensory Exam: intact to LT is abnormal distal to the elbows; It is normal in the BLE aside from in the big toes where it is mildly abnormal LT (chronic). Vibration intact at the bilateral great toes. Reflexes: R/L: BUE areflexic, Patella ?trace b/l, Ankle jerks absent, no Xiong's sign. Coordination: Deferred Gait: Relatively narrow based, with very reduced bilateral arm swing IMPRESSION/PLAN: 1. CIDP (chronic inflammatory demyelinating polyneuropathy) ([facility]) - [facility] [place] [facility] [place], [place] 2. Primary osteoarthritis of both hands - [facility] [place] [facility] [place], [place] Bhumika Umana . is a 49 y.o. right-handed male with a relevant PMH of RA and DM2 presenting to establish care for CIDP. Symptom onset over the course of summer 2023, with BUE>>BLE involvement. Inpatient EMG by me on 08/14 with clearly demyelinating features. He improved with IVIG plus steroids. Since discharge he has been off steroids and had objectively worsened on exam. He was restarted on steroids yesterday and reports some improvement, though he is still objectively weaker than his exam with me on 08/14. Today we will recommended initiating pulse dosed steroids in addition to his mIVIG (first dose pending). We will assess his response at the next visit and consider changing the dose and/or frequency of steroids as well as of IVIG. We will plan to continue the pulse dosing for at least 6 months (~01/2025) before considering a taper. Pending clinical course, other agents that might be tried are ritux (which he tolerated previously for RA), Vyvgart, or others. Plan (recommendations for MD staff at his facility): -Start Dexamethasone 40 mg/day for four consecutive days, dosed with 28 days between the last dose of one course and the first dose of the next course. This should be dosed in the morning to minimize the risk of insomnia. Any other steroids (ie, prednisone) should be stopped the day prior to starting the dexamethasone, and should not be used at all in between courses of the dexamethasone (unless a small steroid dose is needed during IVIG infusions). Side effects discussed with patient. -I recommend considered blood glucose checks at least daily while on steroids. -Start Bactrim 1 DS tab qM/Monday/Monday. -Start vitamin D (at least 200 IU) and calcium (at least 500 mg) daily. -If stomach upset occurs, or if NSAID use is needed, add omeprazole 40 mg daily. -Ensure IVIG q3w at 1g/kg; We can consider increase to 1.5 g/kg in the future pending clinical response. -Recommend stopping ASA 81 mg daily. Cisco Juan MD Professional Skateboarder of Neurology [facility] 08/22/24 I spent 65 minutes of total time on the day of the visit. This time was spent preparing for the visit, obtaining and reviewing any outside history/data, taking a history, performing an exam/evaluation, counseling and educating the patient/family about the diagnosis and plan, performing medical decision making, referring to and communicating with other health care referrals, independently interpreting results and documenting in the EMR, and coordinating care. Please see the additional documentation in this note for specific details. documented in this encounter [facility] 08-22-2024 Instructions Cisco Juan MD - 08/22/2024 11:00 AM EST It was a pleasure seeing you in clinic today. Your neurologist: Dr. Cisco Juan Your diagnosis: CIDP Plan: I am asking the MD/TELEGRAPHIC TYPEWRITER INSTALLER at your facility to help with prescribing the following medications. Please share this paperwork with them: -Start Dexamethasone 40 mg/day for four consecutive days, dosed with 28 days between the last dose of one course and the first dose of the next course. This should be dosed in the morning to minimize the risk of insomnia. Any other steroids (ie, prednisone) should be stopped the day prior to starting the dexamethasone, and should not be used at all in between courses of the dexamethasone (unless a small steroid dose is needed during IVIG infusions). Side effects discussed with patient. -I recommend considered blood glucose checks at least daily while on steroids. -Start Bactrim 1 DS tab /Monday/Monday. -Start vitamin D (at least 200 IU) and calcium (at least 500 mg) daily. -If stomach upset occurs, or if NSAID use is needed, add omeprazole 40 mg daily. -Ensure IVIG q3w at 1g/kg; We can consider increase to 1.5 g/kg in the future pending clinical response. -Recommend stopping ASA 81 mg. Follow up with me in 1-2 months. Please reach out on MyChart with any concerns. Thank you for entrusting me with your care. Cisco Juan MD Professional Skateboarder of Neurology [facility] 08/22/24 documented in this encounter [facility] Telephone encounter Note Person [facility] called and stated that they are not covered by his insurance and that they can not take him as a patient. [facility] 08-06-2024 Miscellaneous Notes Person [facility] called and stated that they are not covered by his insurance and that they can not take him as a patient. documented in this encounter [facility] 07-22-2024 History of Present illness Narrative Associated Problem(s): Depression (CMS/HCC) Not currently taking any medications Associated Problem(s): Autoimmune disease (CMS/HCC) +RAVINDER level mild positive Associated Problem(s): Rheumatoid arthritis with rheumatoid factor, unspecified (CMS/HCC) Differing reports as to if does have RA or not Associated Problem(s): Weakness Read neurology notes Needs [facility] Associated Problem(s): Type 2 diabetes mellitus without complication, without long-term current use of insulin (CMS/HCC) Not currently checking sugar, taking meds either Associated Problem(s): Upper extremity weakness Reviewed neurology notes from [facility] Associated Problem(s): Essential hypertension, benign (CMS/HCC) Not currently taking meds States was having hypotension when given meds in hospital Pt has moved to [place] with his brother he has fallen there [...] functioning. He has recently relocated back to [facility] living with his sister, after a brief period of time living with his brother in [place]. He is unable to use his Upper [...] mg, Daily RT Lancets (OneTouch Delica Plus [id number]) misc 1 each, Daily PRN lisinopril-hydroCHLOROthiazide 20-25 [...] Oral, Nightly PRN ALLERGIES: Allergies Allergen Reactions [place] Oil Hives Cashew Nut (Anacardium Occidentale) Skin Test Hives Cashew Nut Oil Dermatitis Other Unknown Oxytetracycline Unknown Penicillin G Unknown Penicillins Pedi-Pre Tape [place] [Wound Dressing Adhesive] Rash REVIEW OF SYMPTOMS: [...] (BMI) of 45.0 to 49.9 in adult ([facility]) 08/16/2023 Depression, controlled ([facility]) Epigastric pain Hypertension ([facility]) immunosupression Non compliance w medication regimen Non-compliant patient EDDI (obstructive sleep apnea) 11/16/2023 RA (rheumatoid arthritis) ([facility]) Seasonal allergies Tonsillitis as child Type 2 diabetes mellitus without complication, without long-term current use of insulin ([facility]) 08/16/2023 Past Surgical History: Procedure Laterality Date [...] Orders Ambulatory referral to Home Health Depression ([facility]) Not currently taking any medications Essential hypertension, benign ([facility]) Not currently taking meds States was having hypotension when given meds in hospital Type 2 diabetes mellitus without complication, without long-term current use of insulin ([facility]) Not currently checking sugar, taking meds either Rheumatoid arthritis with rheumatoid factor, unspecified ([facility]) Differing reports as to if does have RA or not Upper extremity weakness - Primary Reviewed neurology notes from [facility] Relevant Orders Ambulatory referral to Home Health Weakness Read neurology notes Needs home health Relevant Orders Ambulatory referral to Home Health Obesity, Class II, BMI 35-39.9 Other Visit Diagnoses Depression, unspecified ([facility]) Essential (primary) hypertension ([facility]) Type 2 diabetes mellitus without complications ([place]) documented in this encounter [facility] 07-22-2024 Instructions Cecy Hernandez NP - 07/22/2024 6:30 PM EST Cont with neurology Order home health documented in this encounter [facility] 07-11-2024 Note HNO ID: [id number] Author: MARVNI MALDONADO LSW Service: ? Author Type: Flight Surveyor Type: Progress Notes Filed: 07/11/2024 12:56 Note [...] provided information on housing assistance programs in [facility]. Provided pt with information on how [...] Advocacy Assessment Care transition Discharge from [facility] panel Education Empowering/Coaching Goal Setting SABINE Duran July 11, 2024 12:47 PM [facility] 07-11-2024 History of Present illness [...] provided information on housing assistance programs in [facility]. Provided pt with information on how [...] Advocacy Assessment Care transition Discharge from [facility] panel Education Empowering/Coaching Goal Setting SABINE Duran July 11, 2024 12:47 PM documented in this encounter [facility] 07-10-2024 Instructions Darek Valdovinos MD - 07/10/2024 10:54 AM EST We would like to repeat an EMG of your arms. This can be scheduled at any [facility] EMG lab. Please schedule follow-up in person with Dr. Valdovinos on August 14 To schedule Occupational Therapy: [facility]: [phone]. [facility]: [phone], Option 1 documented in this encounter [facility] 07-10-2024 Note HNO ID: [id number] Author: KEITH LEONE MD Service: ? Author Type: Physician Type: Progress Notes Filed: 07/10/2024 13:12 Note Text: [facility] for General Neurology New Patient Evaluation Consulting Provider: Errol Sanford [address] [facility] [address] Chief Complaint/Issues: Bhumika Umana is a 48 year old male with hx of ?RA, T2DM, past tobacco use, obesity, seen in the [facility] for General Neurology for: Progressive BL UE weakness and numbness Intermittent LE weakness HPI: Patient states symptoms started in December 2023 with numbness in his fingertips BL. 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 His right [...] he had celluliutis. He re-established with a jewel inspector locally who felt he did not have [...] 0 Pectoral A (more content not included)... [facility] 07-10-2024 History of Present illness Narrative Images from the original note were not included. [facility] General Neurology New Patient Evaluation Consulting Provider: Errol Sanford [address] [facility] [address] Chief Complaint/Issues: Bhumika Umana is a 48 year old male with hx of ?RA, T2DM, past tobacco use, obesity, seen in the [facility] for General Neurology for: Progressive BL UE weakness and numbness Intermittent LE weakness HPI: Patient states symptoms started in December 2023 with numbness in his fingertips BL. 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 His right [...] he had celluliutis. He re-established with a jewel inspector locally who felt he did not have [...] 1. Brachial plexopathy G54.0 EMG(NEURO/NI) CONSULT TO PERFORMANCE REPORTER SUEDE CLEANER [CONSULT TO SOCIAL WORK] CONSULT TO NEUROMUSCULAR [...] vertebrae with counting from the craniocervical junction. Broke Man: PSCB Transcribe Date/Time: Jun 26 2024 7:33A [...] of Dr. Leone documented in this encounter [facility] 06-26-2024 Note HNO ID: [id number] Author: HONG CRUZ LSW Service: Care Management Author Type: Flight Surveyor Type: Care Mgt Progress Note Filed: 06/26/2024 [...] Physician Primary Care Physician Name/Phone: Cecy Hernandez, [facility] [phone] Patient d/c ready to home with no skilled needs identified. Patient and bedside RN aware of plan. Brother to transport patient home via private auto this evening when he gets off of work. SIGNATURE: SABINE Weiss PATIENT NAME: Bhumika Umana DATE: June 26, 2024 TIME: 3:42 PM CONTACT #: [phone] [facility] 06-26-2024 Note HNO ID: [id number] Author: MADIHA HARDING RPh Service: Pharmacy Author [...] discharge medication list. Madiha Harding RPh Pager: [phone] 06/26/2024 3:40 PM Medication List CHANGE how [...] 50 mg tablet Commonly known as: [facility] 06-26-2024 Note HNO ID: [id number] Author: MADIHA HARDING RPh Service: Pharmacy Author Type: Pharmacist Type: Plan of Care Filed: 06/26/2024 15:40 Note Text: PHARMACY MEDICATION REVIEW Patient Name: Bhumika Umana : 1975 The following medications were updated within the EPIDEMIOLOGY INVESTIGATOR medication list: Medications ADDED to EPIDEMIOLOGY INVESTIGATOR medication list Aspirin 81 mg chewable tablet: [...] at bedtime as needed. Medications CHANGED on EPIDEMIOLOGY INVESTIGATOR medication list None Medications REMOVED from EPIDEMIOLOGY INVESTIGATOR medication list None Additional comments: Discharge med [...] Yes Completed by: Madiha Harding RPh All EPIDEMIOLOGY INVESTIGATOR medications addressed by LIP- some home medications were not ordered this admission but will be continued at discharge. Since discharge summary has already been placed, will not reach out to the team to add missing medications. Patient interested in Bedside Delivery Services or using OP Pharmacy at discharge? Yes. Discharge Pharmacy Updated Preferred outpatient pharmacy: [id number] - [place] [address] [address] - [phone] [facility] [place] [address] [address] [facility] - [phone] Allergies: Adhesive Tape (Aidee* Rash Penicillins Unknown [...] Unknown Patient Yes No Sig: Use 1 [place] in each nostril daily at bedtime. folic [...] None Lenin Odom 06/26/2024 Madiha Harding, [facility] Changes and additions to the details in the note are indicated by italics and strikeouts. [facility] 06-26-2024 Note HNO ID: [id number] Author: HEMANTH HOPKINS MD Service: Neurology General [...] note Hemanth Hopkins MD Neurology, PGY-4 06/26/2024 [facility] 06-25-2024 Note HNO ID: [id number] Author: HONG CRUZ LSW Service: Care Management Author Type: Flight Surveyor Type: Care Mgt Initial Assessment Filed: 06/25/2024 15:42 Note Text: CARE MANAGEMENT: ASSESSMENT AND DISCHARGE PLAN SERVICE DATE: June 25, 2024 SERVICE TIME: 3:30 PM PCP: Cecy Hernandez CNP, HERIBERTO Primary Contact: Extended Emergency Contact Information Primary Emergency Contact: LyndsayJustine Address: [address] [place] [id number] Mobile Relation: Mother Admission Status: Observation Insurance Provider: [employer] [place] OF [place] Discharge Planning requested by: Per Department Practice Potential Transition Plans Advance Directives Current Advance Directive: None Support Services Specialist Attempted to Assist with AD Completion: Yes Current Living Arrangements and Support Lives with: Other person(s), Family members (temporarily living with brother) Type of Residence: Private Residence (House) Discharge Planning Patient Goal(s): General wellness Elma of Choice Explained: Elma of Choice Given: No Reason Not Given: [...] and weakness in his hands. 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 attacher pt for Outpatient PT with a 6 Clicks score of 24. At this time, no skilled identified. If family is unavailable to transport, T2R will be provided at discharge. SW/CM will continue to follow for transitional care needs. SIGNATURE: SABINE Weiss PATIENT NAME: Bhumika Umana DATE: June 25, 2024 TIME: 3:30 PM CONTACT #: [phone] [facility] 06-25-2024 Note HNO ID: [id number] Author: [place], Marianne Service: Pharmacy Author Type: Client Relations Associate Type: Plan of Care Filed: 06/25/2024 14:20 Note Text: Insurance investigation completed Patient has active prescription insurance: Yes - Patient's insurance is in-network with [facility] Insurance loaded into [facility]: Yes Test claim was completed to verify insurance is active: Successful Any questions, please reach out to your medication kettle coordinator. [facility] 06-25-2024 Note HNO ID: [id number] Author: HEMANTH HOPKINS MD Service: Neurology General [...] low-normal 228. Pt being seen by PT/OT, attacher for outpt PT. EMG/NCS 02/13/2024 (symptom onset ~01/16/2024): The patient's symptoms certainly merit further workup, but given their gradual progression without acute changes it is appropriate to perform this as an outpatient. However, prior to discharge can draw initial neuropathy/myelopathy labs so that the most common or most actionable causes are ruled out prior to clinic visit. Recommendations: - Outpatient F general neurology follow-up - Repeat MRI c-spine [...] standpoint Hemanth Hopkins MD Neurology, PGY-4 06/25/2024 [facility] 06-22-2024 Physician Emergency department Note [...] Resource Strain: Medium Risk (11/15/2023) Received from [facility] Overall Financial Resource Strain (CARDIA) Difficulty of Paying Living Expenses: Somewhat hard Food Insecurity: Patient Declined (11/15/2023) Received from [facility] Hunger Vital Sign Worried About Running Out of Food in the Last Year: Patient declined Ran Out of Food in the Last Year: Patient declined Transportation Needs: No Transportation Needs (11/15/2023) Received from [facility] PRAPARE - Transportation Lack of Transportation (Medical): No Lack of Transportation (Non-Medical): No Physical Activity: Patient Declined (11/15/2023) Received from [facility] Exercise Vital Sign Days of Exercise per Week: Patient declined Minutes of Exercise per Session: Patient declined Stress: Patient Declined (11/15/2023) Received from [facility] [place] of Occupational Health - Occupational Stress Questionnaire Feeling of Stress : Patient declined Social Connections: Moderately Integrated (11/15/2023) Received from [facility] Social Connection and Isolation Panel [NHANES] Frequency of Communication with Friends and Family: Three times a week Frequency of Social Gatherings with Friends and Family: Twice a week Attends Buddhism Services: More than 4 times per year [...] information. . . Hector Napoles MD 06/22/242006 [facility] 06-22-2024 Emergency department Note Emergency [...] Resource Strain: Medium Risk (11/15/2023) Received from [facility] Overall Financial Resource Strain (CARDIA) Difficulty of Paying Living Expenses: Somewhat hard Food Insecurity: Patient Declined (11/15/2023) Received from [facility] Hunger Vital Sign Worried About Running Out of Food in the Last Year: Patient declined Ran Out of Food in the Last Year: Patient declined Transportation Needs: No Transportation Needs (11/15/2023) Received from [facility] PRAPARE - Transportation Lack of Transportation (Medical): No Lack of Transportation (Non-Medical): No Physical Activity: Patient Declined (11/15/2023) Received from [facility] Exercise Vital Sign Days of Exercise per Week: Patient declined Minutes of Exercise per Session: Patient declined Stress: Patient Declined (11/15/2023) Received from [facility] [place] [facility] [employer]ational [facility] - Occupational Stress Questionnaire Feeling of Stress : Patient declined Social Connections: Moderately Integrated (11/15/2023) Received from [facility] Social Connection and Isolation Panel [NHANES] Frequency of Communication with Friends and Family: Three times a week Frequency of Social Gatherings with Friends and Family: Twice a week Attends Buddhism Services: More than 4 times per year [...] Napoles MD 06/22/242006 documented in this encounter [facility] 06-18-2024 Emergency department Note All discharge instructions and medications reviewed, all questions answered. Pt verbalized understanding. [facility] 06-18-2024 Emergency department Note All discharge instructions and medications reviewed, all questions answered. Pt verbalized understanding. A Sudol EXCHANGE SPECIALIST bedside documented in this encounter [facility] 06-18-2024 Emergency department Note A Sudol EXCHANGE SPECIALIST bedside [facility] 06-12-2024 History of Present illness Narrative Images from the original note were not included. [address] [id number] Date of Service: 06/12/2024 Subjective: Bhumika Barnardall Yoo is a 48 y.o. male who presents [...] review degenerative change Assessment and Plan: Bhumika Umana Jr. is a 48 y.o. male patient with: [...] Myopathy - Unlisted Lab Test; Future - [facility] [place] - [place], [place]; Future 3. Diabetic cheirarthropathy (CMS-HCC) At this point patient continued to have [...] or corrected. Thank you for your understanding. [facility] Dr. Lula Cota MD [address], [address] [place] [address] Office: [phone] documented in this encounter [facility] 05-21-2024 History of Present illness Narrative Associated Problem(s): Type 2 diabetes mellitus without complication, without long-term current use of insulin (CMS/[facility]) Continue current meds Check labs Associated Problem(s): Essential hypertension, benign (CMS/HCC) Stable no dose changes Bhumika Umana is a 48 y.o. male presents with chief complaint of No chief complaint on file. HPI: Continues with weakness to bilat hands and arms. Still working with Rheum, told him he has 'diabetic hands or diabetic cheiroarthropathy . Is continuing to work with neurology and rheumatology to solve his issues Diabetes He presents for his follow-up diabetic visit. He has type 2 diabetes mellitus. His disease course has been stable. There are no hypoglycemic associated symptoms. Pertinent negatives for hypoglycemia include no dizziness, nervousness/anxiousness, seizures or tremors. Associated symptoms include weakness. Pertinent negatives for diabetes include no blurred vision, no foot paresthesias, no polydipsia, no polyphagia and no polyuria. There are no hypoglycemic complications. Symptoms are stable. Diabetic complications include peripheral neuropathy. Pertinent negatives for diabetic complications include no heart disease. Risk factors for coronary artery disease include diabetes mellitus, dyslipidemia, hypertension, male sex, obesity and sedentary lifestyle. Current diabetic treatment includes oral agent (dual therapy). An AMITA inhibitor/angiotensin II receptor darline is being taken. Hypertension This is a chronic problem. The current episode started more than 1 year ago. The problem is unchanged. The problem is controlled. Pertinent negatives include no anxiety, blurred vision, orthopnea, palpitations, peripheral edema or shortness of breath. There are no associated agents to hypertension. Risk factors for coronary artery disease include dyslipidemia, diabetes mellitus, male gender, obesity and sedentary lifestyle. Past treatments include AMITA inhibitors and diuretics. The current treatment provides significant improvement. There are no compliance problems. SUBJECTIVE: MEDICATIONS: Current Outpatient Medications Medication Instructions amitriptyline (ELAVIL) 10 mg, Oral, Nightly PRN aspirin (ASPIRIN LOW DOSE) 81 mg, Oral, Daily citalopram (CELEXA) 40 mg, Oral, Daily dapagliflozin (FARXIGA) 5 mg, Oral, Every morning fluticasone (Flonase) 50 MCG/ACT nasal spray 2 sprays, Each Nostril, Daily glucose blood (OneTouch Ultra) test strip 1 each, Other, Daily Lancets (OneTouch Delica Plus Tacmvi68F) misc 1 each, Other, Daily PRN lisinopril-hydroCHLOROthiazide 20-25 MG tablet 1 tablet, Oral, Daily loratadine (ALLERGY RELIEF) 10 mg, Oral, Daily meloxicam (MOBIC) 15 mg, Oral, Daily metFORMIN (GLUCOPHAGE) 1,000 mg, Oral, 2 times daily with meals pioglitazone (ACTOS) 30 mg, Oral, Every morning simvastatin (ZOCOR) 20 mg, Oral, Every evening tiZANidine (ZANAFLEX) 4 mg, Oral, Nightly PRN traZODone (DESYREL) 100 mg, Oral, Nightly PRN ALLERGIES: Allergies Allergen Reactions [place] Oil Hives Cashew Nut (Anacardium Occidentale) Skin Test Hives Cashew Nut Oil Dermatitis Other Unknown Oxytetracycline Unknown Penicillin G Unknown Penicillins Pedi-Pre Tape [place] [Wound Dressing Adhesive] Rash REVIEW OF SYMPTOMS: Review of Systems Constitutional: Negative for activity change, appetite change and unexpected weight change. HENT: Negative for ear pain, nosebleeds, sneezing, trouble swallowing and voice change. Eyes: Negative for blurred vision, pain, discharge and visual disturbance. Respiratory: Negative for apnea, chest tightness, shortness of breath and wheezing. Cardiovascular: Negative for palpitations, orthopnea and leg swelling. Gastrointestinal: Negative for abdominal distention, blood in stool, constipation and diarrhea. Genitourinary: Negative for decreased urine volume, difficulty urinating, dysuria and hematuria. Skin: Negative for color change. Neurological: Positive for weakness. Negative for dizziness, tremors and seizures. Psychiatric/Behavioral: Negative for agitation, decreased concentration, hallucinations, self-injury and suicidal ideas. The patient is not nervous/anxious. Hematological: Negative for adenopathy. Does not bruise/bleed easily. Endocrine: Negative for cold intolerance, heat intolerance, polydipsia, polyphagia and polyuria. Allergic/Immunologic: Negative for environmental allergies and food allergies. PAST MEDICAL HISTORY Past Medical History: Diagnosis Date Anxiety Cellulitis from finger splinter Chronic pain Class 3 severe obesity due to excess calories without serious comorbidity with body mass index (BMI) of 45.0 to 49.9 in adult ([facility]) 08/16/2023 Depression, controlled ([place]) Epigastric pain Hypertension ([place]) immunosupression Non compliance w medication regimen Non-compliant patient EDDI (obstructive sleep apnea) 11/16/2023 RA (rheumatoid arthritis) ([facility]) Seasonal allergies Tonsillitis as child Type 2 diabetes mellitus without complication, without long-term current use of insulin ([facility]) 08/16/2023 Past Surgical History: Procedure Laterality Date ADENOIDECTOMY T&A TONSILLECTOMY T&A family history includes Cancer in his mother; Diabetes in his mother; Heart disease in his father and maternal grandfather; Hypertension in his maternal grandmother and mother; Stroke in his paternal grandmother; colon in his mother. OBJECTIVE: Visit Vitals BP 138/82 (BP Location: Left arm, Patient Position: Sitting, BP Cuff Size: Large adult long) Pulse 87 Temp 98.8 F (Temporal) Resp 19 Ht 6' 3 Wt 324 lb 3.2 oz SpO2 99% BMI 40.52 kg/m Smoking Status Former BSA 2.79 m Physical Exam Vitals and nursing note reviewed. Constitutional: Appearance: Normal appearance. HENT: Head: Normocephalic. Right Ear: External ear normal. Left Ear: External ear normal. Nose: Nose normal. Mouth/Throat: Mouth: Mucous membranes are moist. Pharynx: Oropharynx is clear. Eyes: Extraocular Movements: Extraocular movements intact. Conjunctiva/sclera: Conjunctivae normal. Cardiovascular: Rate and Rhythm: Normal rate and regular rhythm. Pulses: Normal pulses. Heart sounds: Normal heart sounds. Pulmonary: Effort: Pulmonary effort is normal. Breath sounds: Normal breath sounds. Abdominal: General: Bowel sounds are normal. Palpations: Abdomen is soft. Musculoskeletal: Cervical back: Neck supple. Right lower leg: No edema. Left lower leg: No edema. Skin: General: Skin is warm and dry. Capillary Refill: Capillary refill takes 2 to 3 seconds. Neurological: General: No focal deficit present. Mental Status: He is alert. Psychiatric: Mood and Affect: Mood normal. Behavior: Behavior normal. Thought Content: Thought content normal. Judgment: Judgment normal. ASSESSMENT AND PLAN: No follow-ups on file. Problem List Items Addressed This Visit Essential hypertension, benign ([facility]) - Primary Stable no dose changes Relevant Orders Basic metabolic panel Type 2 diabetes mellitus without complication, without long-term current use of insulin ([facility]) Continue current meds Check labs Relevant Orders Basic metabolic panel Hemoglobin A1c Morbid (severe) obesity due to excess calories ([facility]) Body mass index (BMI) 40.0-44.9, adult ([facility]) documented in this encounter [facility] 05-01-2024 History of Present illness Narrative Subjective Bhumika Umana is a 48 y.o. year old male Chief Complaint Patient presents with Sensory disturbance Past Medical History: Diagnosis Date Anxiety Cellulitis from finger splinter Chronic pain Class 3 severe obesity due to excess calories without serious comorbidity with body mass index (BMI) of 45.0 to 49.9 in adult ([facility]) 08/16/2023 Depression, controlled ([facility]) Epigastric pain Hypertension ([facility]) immunosupression Non compliance w medication regimen Non-compliant patient EDDI (obstructive sleep apnea) 11/16/2023 RA (rheumatoid arthritis) ([facility]) Seasonal allergies Tonsillitis as child Type 2 diabetes mellitus without complication, without long-term current use of insulin ([facility]) 08/16/2023 Past Surgical History: Procedure Laterality Date ADENOIDECTOMY T&A TONSILLECTOMY T&A Family History Problem Relation Name Age of Onset Other (colon) Mother Justine Diabetes Mother Jsutine Hypertension Mother Justine Cancer Mother Justine Heart disease Father Barney Hypertension Maternal Grandmother Rowan Heart disease Maternal Grandfather Raul Stroke Paternal Grandmother Margaret Social History Tobacco Use Smoking status: Former Types: Cigarettes Smokeless tobacco: Former Types: Chew Tobacco comments: Last smoked: 5-10 years Substance Use Topics Alcohol use: Never Comment: caffeine 1-2 cups per day Medication Documentation Review Audit Reviewed by Alma Mata MA (Senior Medical Technologist) on 05/01/24 at 1539 Medication Order Taking? Sig Documenting Provider Last Dose Status amitriptyline (Elavil) 10 MG tablet [id number] No Take 10 mg by mouth as needed at bedtime for sleep Cecy Hernandez NP Taking Active Discontinued 04/30/24 0840 aspirin (Aspirin Low Dose) 81 MG chewable tablet [id number] Chew 1 tablet (81 mg) Daily Cecy Hernandez NP Active citalopram (CeleXA) 40 MG tablet [id number] No Take 1 tablet (40 mg) by mouth Daily eCcy Hernandez NP Taking Active dapagliflozin (Farxiga) 5 MG [id number] No Take 1 tablet (5 mg) by mouth in the morning. Cecy Hernandez NP Taking Active fluticasone (Flonase) 50 MCG/ACT nasal spray [id number] No Administer 2 sprays into each nostril Daily Cecy Hernandez NP Taking Active glucose blood (OneTouch Ultra) test strip [id number] No 1 each by Other route Daily Cecy Hernandez NP Taking Active Lancets (OneTouch Delica Plus Kkhmtb25M) [facility] [id number] No 1 each by Other route Daily as needed Cecy Hernandez NP Taking Active lisinopril-hydroCHLOROthiazide 20-25 MG tablet [id number] No Take 1 tablet by mouth Daily Cecy Hernandez NP Taking Active loratadine (Allergy Relief) 10 MG tablet [id number] No Take 1 tablet (10 mg) by mouth Daily Cecy Hernandez NP Taking Active meloxicam (Mobic) 15 MG tablet [id number] No Take 1 tablet (15 mg) by mouth Daily Cecy Hernandez NP Taking Active metFORMIN (Glucophage) 1000 MG tablet [id number] No Take 1 tablet (1,000 mg) by mouth in the morning and 1 tablet (1,000 mg) in the evening. Take with meals. Cecy Hernandez NP Taking Active pioglitazone (Actos) 30 MG tablet [id number] No Take 1 tablet (30 mg) by mouth in the morning. Cecy Hernandez NP Taking Active simvastatin (Zocor) 20 MG tablet [id number] No Take 1 tablet (20 mg) by mouth in the evening Cecy Hernandez NP Taking Active tiZANidine (Zanaflex) 4 MG tablet [id number] No Take 1 tablet (4 mg) by mouth as needed at bedtime for muscle spasms Cecy Hernandez NP Taking Active traZODone (Desyrel) 100 MG tablet [id number] No Take 1 tablet (100 mg) by mouth as needed at bedtime for sleep Cecy Hernandez NP Taking Active Patient is here today for follow-up of sensory disturbance and manager corporate communications weakness. I am following the plan of care established by the physician who is present in the office today. 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 HENT: Negative for sore throat and trouble swallowing. Eyes: Negative for photophobia and visual disturbance. Respiratory: Negative for chest tightness and shortness of breath. Cardiovascular: Negative for chest pain and palpitations. Gastrointestinal: Negative for abdominal pain, nausea and vomiting. Genitourinary: Negative for decreased urine volume, difficulty urinating, flank pain, hematuria and urgency. Musculoskeletal: Positive for neck pain and neck stiffness. Negative for back pain, gait problem and joint swelling. Skin: Negative for color change, pallor and rash. Neurological: Positive for weakness and numbness. Negative for dizziness, tremors, seizures, syncope, facial asymmetry, speech difficulty, light-headedness and headaches. Psychiatric/Behavioral: Positive for sleep disturbance. The patient is not nervous/anxious. Endocrine: Positive for cold intolerance. Objective Visit Vitals BP 132/84 Pulse 80 Resp 16 Ht 6' 3 Wt 331 lb SpO2 96% BMI 41.37 kg/m Smoking Status Former BSA 2.82 m GENERAL Neurological Exam Mental Status Awake, alert and oriented to person, place and time. Recent and remote memory are intact. Speech is normal. Language is fluent with no aphasia. Attention and concentration are normal. Fund of knowledge is appropriate for level of education. Cranial Nerves CN II: Visual acuity is normal. Visual chew full to confrontation. CN III, IV, : Extraocular movements intact bilaterally. Normal lids and orbits bilaterally. Pupils equal round and reactive to light bilaterally. CN V: Facial sensation is normal. CN VII: Full and symmetric facial movement. CN VIII: Hearing is normal. CN IX, X: Palate elevates symmetrically. Normal gag reflex. CN XI: Shoulder shrug strength is normal. CN XII: Tongue midline without atrophy or fasciculations. Sensory Light touch is normal in upper and lower extremities. Temperature abnormality: Decreased in the distal UE, L > R. Vibration is normal in upper and lower extremities. Coordination Right: Farorq-xp-iekb normal. Rapid alternating movement normal.Left: Ejjsin-ix-lfzb normal. Rapid alternating movement normal. Gait Casual gait is normal including stance, stride, and arm swing. Motor Examination RUE Strength deltoid, biceps, triceps, wrist extensors, wrist extensors, wrist flexor, 5/5. manager corporate communications strength decreased LUE Strength deltoid, biceps, triceps, wrist extensors, wrist extensors, wrist flexor 5/5. manager corporate communications strength decreased RLE Strength illopsoas, quadriceps, tibialis anterior, and gastrocnemius strength 5/5. LLE Strength illopsoas, quadriceps, tibialis anterior, and gastrocnemius strength 5/5. Tone Normal tone x4 extremities. Reflexes: RUE biceps reflex 2, brachioradialis reflex 2 LUE biceps reflex 2, brachioradialis reflex 2 RLE knee reflex 1-2, ankle reflex 1-2 LLE knee reflex 1-2, ankle reflex 1-2 Heart: Regular rate and rhythm Assessment and Plan Diagnoses and all orders for this visit: Sensory disturbance Weakness Degenerative disc disease, cervical 48-year-old male was initially seen in outpatient [...] EMG normal. Patient was recently seen at [facility] and then transferred to [facility] 03/30/2024 for progressive bilateral distal upper extremity [...] blood pressure and diabetes. He verbalized understanding. BUE EMG 02/13/2024: normal [facility] testing from 03/23/2024 Brain MRI: focal areas of abnormal signal seen on the T2 and T2 FLAIR imaging within the white matter. Given the patient's age, this is a nonspecific finding and demyelinating process cannot be excluded. Cervical spine MRI with and without contrast 03/23/2024: Revealed broad based disc bulge with a central disc extrusion at C3-C4. This is excentric slightly to the left of midline with mild caudal migration contributing to moderate spinal canal stenosis with mild effacement of the anterior aspect of the cord, left greater than right. No underling cord edema to suggest cord compression. There is uncovertebral joint spurring and facet hypertrophy with moderate to severe left and moderate right neural foraminal stenosis. Blood work: CK 34, myoglobin 31, ESR 14, CRP not detected, A1C 7.4%, magnesium 1.8, vitamin B12 416, 25-OH Vitamin D low at 21.6, folate 13.0, TSH 0.48 LP: traumatic tap ,RBCs 3051 on tube 3, total nucleated cells 3 on tube 3, glucose 72, protein 84, infectious PCR panel negative, CSF albumin 46 (reference range 10-45), oligoclonal bands were zero, IgG synthesis rate 6.0 (reference range 0.0-10.3), myelin basic protein 2.7 (reference range 0.0-4.7), Lyme total antibody negative PLAN I discussed obtaining repeat BUE EMG. Patient states he has recently moved and would like to hold off on repeating this test. I advised him to call if he is able to do the EMG in future. He verbalized understanding. I reviewed recent rheumatology note Follow through with PT as scheduled Patient to follow up with this clinic in 3 months or sooner for new or worsening symptoms documented in this encounter [facility] 03-30-2024 Discharge summary Note Date/Time March 30, 2024 12:47pm [facility] [address] [place] [address] Discharge Summary Signed Patient: Bhumika Umana JR MR#: [id number] : 1975 Acct:[id number] Age/Sex: 48 / M Adm Date: 4 Loc: 3T Room: [address] [place] [address]: Bola Garcia DO Copies to: MD Bola Mast DO Lisa J Aicholz, DARIO-C~ Providers Date of Discharge: 03/30/24 Discharging [...] ago and has been feeling fine. Current jewel inspector is working him up for possible Sjogren's [...] neurology clinic. He needs to see his jewel inspector in [place]. The following labs are still pending from [...] the neurology office. Follow up with your Endoscope Technician in [place]. Instructions: Know your Meds Prescriptions: Continued amitriptyline [...] Upper extremity: He does have mildly weak manager corporate communications strength of both hands and mild weakness [...] % (Auto) 67.6, Lymph % (Auto) 22.0, [place] % (Auto) 9.0, Eos % (Auto) 1.0, Baso % (Auto) 0.4, Nucleat RBC Rel Count 0.0, Neut # (Auto) 13.5 H, Lymph #(Auto) 4.4, [place] # (Auto) 1.8 H, Eos # (Auto) 0.2, Baso # (Auto) 0.1, PHA Creatinine Clear 238.21, Sodium 136, Potassium 4.4, Chloride 101, Carbon Zxysbou43.2, Anion Gap 12.2, BUN 13, Creatinine 0.61 [...] % (Auto) 77.7, Lymph % (Auto) 14.7, [place] % (Auto) 6.5, Eos % (Auto) 0.6, Baso % (Auto) 0.5, Nucleat RBC Rel Count 0.1, Neut # (Auto) 13.3 H, Lymph #(Auto) 2.5, [place] # (Auto) 1.1 H, Eos # (Auto) 0.1, Baso # (Auto) 0.1, Monocyte Dist Width 16.02, ESR 12, PHA Creatinine Clear 196.64, Sodium 134 L, Potassium 4.4, Chloride 101, Carbon Dioxide 23.0, Anion Gap 14.4, BUN 15, Creatinine 0.74,Est GFR (CKD-EPI) > 60.0, Glucose 201 H, Calcium 9.3, Total Creatine Kinase 37, C-Reactive Prot, Quant < 0.5 08/02/24 22:22: POC Glucose 204 Documented By: Bola Garcia DO 1240 Signed By: <Electronically signed by Bola Garcia DO> 03/30/24 1247 [facility] Work Phone: 1(488) 892-455208-03-2024 Consult note Author Altagracia Street [facility] March 30, 2024 11:04am Note Date/Time March 30, 2024 10: 08am [facility] [address] [place] [address] Neurology Consult Note Signed Patient: Bhumika Umana JR MR#: [id number] : 1975 Acct:[id number] Age/Sex: 48 / M Adm Date: 4 Loc: 3T Room: [address] [place] [address] Type: ADM INOo Attending Dr: Bola Garcia DO Copies to: DO Cecy Watson NP-C Altagracia Street DO~ HPI Consult Date: 03/30/24 Sheriff'S Detective: Altagracia Street DO Reason for consult: weakness Consult Narrative HPI: 48-year-old male being seen in Neurology consultation at the request of the hospitalist. The patient was recently admitted worked up and released for similar issues. The patient has a PMH of T2DM, HTN, depression adn RA. [facility] new complaints of BLE where [...] that his hands feel like they have ghxk-bkd-lazkkvlkt them. He was discharged from the hospital [...] ago and has been feeling fine. Current jewel inspector is working him up for possible Sjogren's [...] Denies dizziness, Reports headache(s) and Reports weakness [facility] Medical History Depressed Acute rheumatoid arthritis [...] Mert Ferreira M.D.03/30/2024 9:26 AM Dictation Location: [place] [address] Assessment/Plan (1) Bilateral arm weakness: (2) Bilateral [...] <Electronically signed by DO Altagracia Street> 03/30/24 1873 [facility] Work Phone: 1([phone]) 943-376908-03-2024 History and physical note Author Edgar Gomez [facility] March 30, 2024 6:59am Note Date/Time March 30, 2024 1:3 8am [facility] [address] [place] [address] Hospitalist H&P Signed Patient: Bhumika Umana JR MR#: [id number] : 1975 Acct:[id number] Age/Sex: 48 / M Adm Date: 4 Loc: Room: [address] [place] [address] Type: ADM INOo Attending Dr: Edgar Gomez MD Copies to: MD Cecy Jeter, TELEGRAPHIC TYPEWRITER INSTALLER-C Margaret Kennedy, JEWEL STRIPPER~ HPI DATE OF EXAMINATION: 03/30/24 CHIEF COMPLAINT: [...] brother came over to go to the [employer]. States he needed help just opening up a taco, he could barely hold up the taco. He statesthat sometimes after he rests he has better use of his hands and his arms but then he noticed after he uses them they get tired after a while they get weaker and more difficult to use. He states that his hands feel like they have eepo-qvu-flzwlpd in them. He is moving both of [...] ago and has been feeling fine. Current jewel inspector is working him up for possible Sjogren's [...] unless noted in the HPI or below. [facility] Medical History (Updated 03/30/24 @ 00:44 [...] % (Auto) 14.7 % (.) 03/29/24 22:50 [place] % (Auto) 6.5 % (.) 03/29/24 22:50 Eos % (Auto) 0.6 % (.) 03/29/24 22:50 Baso % (Auto) 0.5 % (.) 03/29/24 22:50 Nucleat RBC Rel Count 0.1 /100 WBC (0-0.5) 03/29/24 22:50 Neut # (Auto) 13.3 x10E3/uL (1.8-7.7) H 03/29/24 22:50 Lymph # (Auto) 2.5 x10E3/uL (1.00-4.8) 03/29/24 22:50 [place] # (Auto) 1.1 x10E3/uL (0.0-0.8) H 03/29/24 [...] Signed By: <Electronically signed by REBEKAH Kennedy> 03/30/24 0218 <Electronically signed by Edgar Gomez MD> 03/30/24 0659 [facility] Work Phone: 1(948) 241-967107-29-2024 Progress note Author Danial Horan [facility] March 25, 2024 2:09pm Note Date/Time March 25, 2024 2:03 pm [facility] [address] [place] [address] Neurology Progress Note Signed Patient: Bhumika Umana JR MR#: [id number] : 1975 Acct:[id number] Age/Sex: 48 / M Adm Date: 4 Loc: Room: [address] [place] [address] Type: ADM IN Attending Dr: Simon Wolfe [...] wrist flexion, +2/5 bilateralfinger extension, +4/5 bilateral manager corporate communications strength, +3/5 finger abduction bilaterally. No tremors. [...] standpoint Documented By: Danial Horan DO 03/25/24 2055 Signed By: <Electronically signed by Danial Horan DO> 03/25/24 1586 [facility] Work Phone: 1(158) 957-751807-28-2024 Progress note Author Danial Horan [facility] March 24, 2024 1:33pm Note Date/Time March 24, 2024 1:33 pm [facility] [address] [place] [address] Neurology Progress Note Signed Patient: Bhumika Umana JR MR#: [id number] : 1975 Acct:[id number] Age/Sex: 48 / M Adm Date: 4 Loc: Room: 2P8493-2 Type: ADM IN Attending Dr: Elder Iyer [...] wrist flexion, +2/5 bilateralfinger extension, +4/5 bilateral manager corporate communications strength, +3/5 finger abduction bilaterally. No tremors. [...] signed by Danial Horan DO> 03/24/24 1333 [facility] Work Phone: 1(593) 839-479407-28-2024 Progress note Author Elder Iyer [facility] March 24, 2024 11:01am Note Date/Time March 24, 2024 11:0 1am [facility] [address] [place] [address] Hospitalist Progress Note Signed Patient: Bhumika Umana JR MR#: [id number] : 1975 Acct:[id number] Age/Sex: 48 / M Adm Date: 4 Loc: Room: [address] [place] [address] Type: ADM IN Attending Dr: Elder Iyer [...] his hands where he can't make a manager corporate communications, mentions that he could not hold a [...] spray 03/23/24 22:00 03/23/24 21:18 Fluticasone Propionate [place] 120 [place]/16 Gm Bottle NARES-BOTH 03/23/25 21:59 Not Given [...] Insuln.Pen SUBCUT 03/23/25 07:59 Not Given TID.WM.HS [facility] Protocol Lisinopril 20 mg 03/23/24 09:00 03/24/24 [...] of his bilateral worsening in his hand manager corporate communications this am -He is off steroids -His [...] signed by Elder Iyer MD> 03/24/24 1101 [facility] Work Phone: 1(918) 367-838807-27-2024 Progress note Author Elder Iyer [facility] March 23, 2024 2:33pm Note Date/Time March 23, 2024 2:33 pm [facility] [address] [place] [address] Hospitalist Progress Note Signed Patient: Bhumika Umana JR MR#: [id number] : 1975 Acct:[id number] Age/Sex: 48 / M Adm Date: 4 Loc: 3T Room: [address] [place] [address] Type: ADM IN Attending Dr: Elder Iyer [...] reviewed today: Cervical spine MRI done in [place]: The MRI of the cervical spine is [...] with and without contrast done here at [facility]: Focal areas of abnormal signal are seen [...] in his hands and can make a manager corporate communications, sensation is normal over the bilateral upper [...] Propionate 2 spray 03/23/24 22:00 Fluticasone Propionate [place] 120 [place]/16 Gm Bottle NARES-BOTH 03/23/25 21:59 QHS FARZANEH [...] 50 Documented By: Elder Iyer MD 03/23/24 7047 Signed By: <Electronically signed by Elder Iyer MD> 03/23/24 9696 [facility] Work Phone: 1(472) 359-505707-27-2024 Consult note Author Danial Horan [facility] March 23, 2024 1:05pm Note Date/Time March 23, 2024 11:3 9am [facility] [address] [place] [address] Neurology Consult Note Signed Patient: Bhumika Umana JR MR#: [id number] : 1975 Acct:[id number] Age/Sex: 48 / M Adm Date: 4 Loc: Room: [address] [place] [address] Type: ADM IN Attending Dr: Elder Iyer MD Copies to: DO Cecy Aguirre, TELEGRAPHIC TYPEWRITER INSTALLER-C Elder Iyer MD~ HPI Consult Date: 03/23/24 Sheriff'S Detective: Danial Horan DO [facility] Medical History (Updated 03/23/24 @ 02:25 [...] his close, etc. He went to the [place] emergency department to be evaluated and had to sign some for there and had used two handsto manipulate the pen. The [place] emergency department called me overnight and told [...] wrist flexion, +2/5 bilateralfinger extension, +4/5 bilateral manager corporate communications strength, +3/5 finger abduction bilaterally. No tremors. [...] <Electronically signed by Danial Horan DO> 03/23/24 7742 [facility] Work Phone: 1(287) 328-612807-27-2024 History and physical note Author Bola Garcia [facility] March 23, 2024 2:28am Note Date/Time March 23, 2024 2:28 am [facility] [address] [place] [address] Hospitalist H&P Signed Patient: Bhumika Umana JR MR#: [id number] : 1975 Acct:[id number] Age/Sex: 48 / M Adm Date: 4 Loc: Room: [address] [place] [address] Type: ADM IN Attending Dr: Bola Garcia DO Copies to: DO Cecy Watson NP-C~ HPI DATE OF EXAMINATION: 03/23/24 CHIEF COMPLAINT: Worsening weakness of both upper extremities. HISTORY OF PRESENT ILLNESS: This is a 48-year-old man who was sent to the emergency room at [facility] from the emergency room at [facility] as a ED to ED transfer [...] on prednisone 2 days ago by the [place] [facility]. In [place] he has had a workup including a CT scan of his cervical spine and then an MRI of his cervical spine performed on March 19, 2024. Contact was made with the neurologist who felt thatthe patient should be brought over here to [facility] so he can get an MRI [...] like he recently got established with a jewel inspector at the [employer] system in [place] who told himthat his situation was not [...] except as mentioned elsewhere in the documentation. [facility] Medical History (Updated 03/23/24 @ 02:25 [...] % (Auto) 8.2 % (.) 03/23/24 00:52 [place] % (Auto) 1.0 % (.) 03/23/24 00:52 Eos % (Auto) 0.0 % (.) 03/23/24 00:52 Baso % (Auto) 0.5 % (.) 03/23/24 00:52 Nucleat RBC Rel Count 0.1 /100 WBC (0-0.5) 03/23/24 00:52 Neut # (Auto) 15.5 x10E3/uL (1.8-7.7) H 03/23/24 00:52 Lymph # (Auto) 1.4 x10E3/uL (1.00-4.8) 03/23/24 00:52 [place] # (Auto) 0.2 x10E3/uL (0.0-0.8) 03/23/24 00:52 [...] He has been established recently with a jewel inspector out of the [employer] system in [place]. Plan: MRI of the brain with and [...] days): 2 Documented By: Bola Garcia DO 5 Signed By: <Electronically signed by Bola Garcia DO> 03/23/24227 [facility] Work Phone: 1(101) 317-876602-11-2022 Evaluation note* Encounter Date Diagnosis Assessment Notes [...] care instructions given in writting by [facility] Care At Home document. [employer] Other Discharge summary Author Simon Wolfe [facility] March 25, 2024 5:58pm Note Date/Time March 25, 2024 5:50 pm [facility] [address] [place] [address] Discharge Summary Signed Patient: Bhumika Umana JR MR#: [id number] : 1975 Acct:[id number] Age/Sex: 48 / M Adm Date: 4 Loc: Room: [address] [place] [address]: Simon Wolfe MD Copies to: MD Cecy Mcdowell, TELEGRAPHIC TYPEWRITER INSTALLER-C~ Providers Date of Discharge: 03/25/24 Discharging Provider: [...] Location: Determined by Patient Ordered By: Simon Wolef Follow Up: [facility] [Outside] [...] Deferred Neuro: AAO x3, no focal deficits. Field Service Representative strength 4+/5 throughout. 5/5 otherwise Extremities: No [...] 08:43: CSF Supernatant Color Colorless, [place] [address] 03/25/24 08:43: CSF Color Lt pink, CSF [...] N/A Documented By: Simon Wolfe MD 4 8560 Signed By: <Electronically signed by Simon Wolfe MD> 03/25/24 1755 [facility] Work Phone: Evaluation note* Diagnosis Type 2 diabetes mellitus without complication, without long-term current use of insulin (CMS/HCC)- Primary Type 2 diabetes mellitus without complications (CMS/HCC) documented in this encounter [facility]* Diagnosis Onset Date Resolution Status Diabetes acute HTN (hypertension) acute Upper extremity weakness acu te [facility] Work Phone: Evaluation note* Diagnosis Onset Date Resolution Status Diabetes acute HTN (hypertension) acute Upper extremity weakness acu te Bilateral arm weakness acute Bilateral leg weakness acute Diabetes acute HTN (hypertension) acute Leukocytosis acute Upper extremity weakness acu te [facility] Work Phone: Evaluation note* Diagnosis Onset Date Resolution Status Diabetes acute HTN (hypertension) acute Upper extremity weakness acu te Bilateral arm weakness acute Bilateral leg weakness acute Diabetes acute Falls acute Fasciculation acute HTN (hypertension) acute Leukocytosis acute Upper extremity weakness acu te [facility] Work Phone: Evaluation note* Diagnosis Type 2 diabetes mellitus without complication, without long-term current use of insulin ([facility]/HCC) Type 2 diabetes mellitus without complications ([facility]) Depression, unspecified ([facility]) Other chronic pain documented in this encounter [facility]* Diagnosis Primary osteoarthritis of both hands- Primary Myopathy Unspecified myopathy Diabetic cheirarthropathy ([facility]-HCC) [facility]* Diagnosis Injury of toe on right foot, initial encounter- Primary documented in [facility] encounter [facility]* Diagnosis Generalized weakness- Primary Other malaise and fatigue Paresthesia of skin Disturbance of skin sensation documented in this encounter [facility]* Diagnosis Essential hypertension, benign ([facility]/HCC)- Primary Essential hypertension, benign Type 2 diabetes mellitus without complication, without long-term current use of insulin ([facility]) Class 3 severe obesity due to excess [...] initiating or maintaining sleep Essential hypertension, benign (CMS/HCC) Essential hypertension, benign Class 3 severe obesity due to excess calories without serious comorbidity with body mass index (BMI) of 45.0 to 49.9 in adult ([facility]) Depression, unspecified depression type ([facility]) Type 2 diabetes mellitus without complication, without long-term current use of insulin ([facility])- Primary Essential hypertension, benign ([facility]) Essential hypertension, benign Asymptomatic microscopic hematuria Degenerative disc disease, cervical Class 3 severe obesity due to excess calories without serious comorbidity with body mass index (BMI) of 45.0 to 49.9 in adult ([facility]) Upper extremity weakness- Primary Other musculoskeletal symptoms referable to limbs Morbid (severe) obesity due to excess calories ([facility]) Body mass index (BMI) 40.0-44.9, adult ([facility]) Rheumatoid arthritis with rheumatoid factor, unspecified ([facility]) Depression, unspecified ([facility]) Type 2 diabetes mellitus without complication, without long-term current use of insulin ([facility]) Other seasonal allergic rhinitis Essential hypertension, benign ([facility]) Essential hypertension, benign Essential (primary) hypertension ([facility]) Unspecified essential hypertension Type 2 diabetes mellitus without complications ([facility]) Other chronic pain Primary insomnia Persistent disorder of initiating or maintaining sleep Essential hypertension, benign ([facility])- Primary Essential hypertension, benign Type 2 diabetes mellitus without complication, without long-term current use of insulin ([facility]) Body mass index (BMI) 40.0-44.9, adult ([facility]) Morbid (severe) obesity due to excess calories ([facility]) Other seasonal allergic rhinitis documented in [facility] encounter [facility]* Diagnosis Brachial plexopathy- Primary Brachial plexus lesions Obesity, Class II, BMI 35-39.9 Obesity, unspecified [facility] Financial difficulty- Primary Inadequate material resources [facility] Diagnosis Essential hypertension, benign ([facility]/HCC)- Primary Essential hypertension, benign Type 2 diabetes mellitus without complication, without long-term current use of insulin ([facility]) Class 3 severe obesity due to excess calories without serious comorbidity with body mass index (BMI) of 45.0 to 49.9 in adult ([facility]) Autoimmune disease ([facility]) Autoimmune disease, not elsewhere classified Essential (primary) hypertension ([facility]) Unspecified essential hypertension Other chronic pain Type 2 diabetes mellitus without complications ([facility]) Type 2 diabetes mellitus without complication, without long-term current use of insulin ([facility])- Primary Primary insomnia Persistent disorder of initiating or maintaining sleep Essential hypertension, benign ([facility]) Essential hypertension, benign Class 3 severe obesity due to excess calories without serious comorbidity with body mass index (BMI) of 45.0 to 49.9 in adult ([facility]) Depression, unspecified depression type ([facility]) Type 2 diabetes mellitus without complication, without long-term current use of insulin ([facility])- Primary Essential hypertension, benign ([facility]) Essential hypertension, benign Asymptomatic microscopic hematuria Degenerative disc disease, cervical Class 3 severe obesity due to excess calories without serious comorbidity with body mass index (BMI) of 45.0 to 49.9 in adult ([facility]) Upper extremity weakness- Primary Other musculoskeletal symptoms referable to limbs Morbid (severe) obesity due to excess calories ([facility]) Body mass index (BMI) 40.0-44.9, adult ([facility]) Rheumatoid arthritis with rheumatoid factor, unspecified ([facility]) Depression, unspecified ([facility]) Type 2 diabetes mellitus without complication, without long-term current use of insulin ([facility]) Other seasonal allergic rhinitis Essential hypertension, benign ([facility]) Essential hypertension, benign Essential (primary) hypertension ([facility]) Unspecified essential hypertension Type 2 diabetes mellitus without complications ([facility]) Other chronic pain Primary insomnia Persistent disorder of initiating or maintaining sleep Essential hypertension, benign (CMS/HCC)- Primary Essential hypertension, benign Type 2 diabetes mellitus without complication, without long-term current use of insulin ([facility]) Body mass index (BMI) 40.0-44.9, adult ([facility]) Morbid (severe) obesity due to excess calories ([facility]) Upper extremity weakness- Primary Other musculoskeletal symptoms referable to limbs Depression, unspecified ([facility]) Type 2 diabetes mellitus without complication, without long-term current use of insulin ([facility]) Essential hypertension, benign ([facility]) Essential hypertension, benign Essential (primary) hypertension ([facility]) Unspecified essential hypertension Type 2 diabetes mellitus without complications ([facility]) Obesity, Class II, BMI 35-39.9 Weakness Other malaise and fatigue Rheumatoid arthritis with rheumatoid factor, unspecified ([facility]) Autoimmune disease ([facility]) Autoimmune disease, not elsewhere classified Moderate episode of recurrent major depressive disorder (CMS/HCC) documented in this encounter [facility]* Diagnosis Essential hypertension, benign (CMS/HCC)- Primary Essential hypertension, benign Type 2 diabetes mellitus without complication, without long-term current use of insulin (CMS/HCC) Class 3 severe obesity due to excess [...] initiating or maintaining sleep Essential hypertension, benign (CMS/HCC) Essential hypertension, benign Class 3 severe obesity due to excess calories without serious comorbidity with body mass index (BMI) of 45.0 to 49.9 in adult ([facility]) Depression, unspecified depression type (CMS/HCC) Type 2 diabetes mellitus without complication, without long-term current use of insulin (CMS/HCC)- Primary Essential hypertension, benign (CMS/HCC) Essential hypertension, benign Asymptomatic microscopic hematuria Degenerative disc disease, cervical Class 3 severe obesity due to excess calories without serious comorbidity with body mass index (BMI) of 45.0 to 49.9 in adult ([facility]) Upper extremity weakness- Primary Other musculoskeletal symptoms referable to limbs Morbid (severe) obesity due to excess calories (CMS/HCC) Body mass index (BMI) 40.0-44.9, adult ([facility]) Rheumatoid arthritis with rheumatoid factor, unspecified (CMS/HCC) Depression, unspecified (CMS/HCC) Type 2 diabetes mellitus without complication, without long-term current use of insulin (CMS/HCC) Other seasonal allergic rhinitis Essential hypertension, benign (CMS/HCC) Essential hypertension, benign Essential (primary) hypertension (CMS/HCC) Unspecified essential hypertension Type 2 diabetes mellitus without complications (CMS/HCC) Other chronic pain Primary insomnia Persistent disorder of initiating or maintaining sleep Essential hypertension, benign (CMS/HCC)- Primary Essential hypertension, benign Type 2 diabetes mellitus without complication, without long-term current use of insulin (CMS/HCC) Body mass index (BMI) 40.0-44.9, adult ([facility]) Morbid (severe) obesity due to excess calories ([facility]) Upper extremity weakness- Primary Other musculoskeletal symptoms referable to limbs Depression, unspecified ([facility]) Type 2 diabetes mellitus without complication, without long-term current use of insulin ([facility]) Essential hypertension, benign ([facility]) Essential hypertension, benign Essential (primary) hypertension ([facility]) Unspecified essential hypertension Type 2 diabetes mellitus without complications ([facility]) Obesity, Class II, BMI 35-39.9 Weakness Other malaise and fatigue Rheumatoid arthritis with rheumatoid factor, unspecified ([facility]) Autoimmune disease ([facility]) Autoimmune disease, not elsewhere classified Moderate episode of recurrent major depressive disorder ([facility]) Type 2 diabetes mellitus without complication, without long-term current use of insulin ([facility]) documented in this encounter [facility]* Diagnosis Upper extremity weakness- Primary Other musculoskeletal symptoms referable to limbs documented in this encounter [facility]* Diagnosis Type 2 diabetes mellitus without complication, without long-term current use of insulin ([facility]) documented in this encounter [facility]* Diagnosis Sensory disturbance- Primary Disturbance of skin sensation Weakness Other malaise and fatigue Degenerative disc disease, cervical documented in this encounter [facility]* Diagnosis Essential hypertension, benign ([facility])- Primary Essential hypertension, benign Type 2 diabetes mellitus without complication, without long-term current use of insulin ([facility]) Body mass index (BMI) 40.0-44.9, adult ([facility]) Morbid (severe) obesity due to excess calories ([facility]) documented in this encounter [facility]* Diagnosis CIDP (chronic inflammatory demyelinating polyneuropathy) ([facility])- Primary Chronic inflammatory demyelinating polyneuritis [facility] Diagnosis CIDP (chronic inflammatory demyelinating polyneuropathy) ([facility]) Chronic inflammatory demyelinating polyneuritis Primary osteoarthritis of both hands [facility] Diagnosis Primary osteoarthritis of both hands- Primary CIDP (chronic inflammatory demyelinating polyneuropathy) ([facility]) Chronic inflammatory demyelinating polyneuritis Diabetic cheirarthropathy ([facility] Diagnosis CIDP (chronic inflammatory demyelinating polyneuropathy) ([facility])- Primary Chronic inflammatory demyelinating polyneuritis [facility]* Diagnosis Essential hypertension, benign (CMS/HCC)- Primary Essential hypertension, benign Type 2 diabetes mellitus without complication, without long-term current use of insulin (CMS/HCC) Class 3 severe obesity due to excess calories without serious comorbidity with body mass index (BMI) of 45.0 to 49.9 in adult ([facility]) Autoimmune disease ([facility]) Autoimmune disease, not elsewhere classified Essential (primary) hypertension (CMS/HCC) Unspecified essential hypertension Other chronic pain Type 2 diabetes mellitus without complications (CMS/HCC) Type 2 diabetes mellitus without complication, without long-term current use of insulin ([facility])- Primary Primary insomnia Persistent disorder of initiating or maintaining sleep Essential hypertension, benign (CMS/HCC) Essential hypertension, benign Class 3 severe obesity due to excess calories without serious comorbidity with body mass index (BMI) of 45.0 to 49.9 in adult ([facility]) Depression, unspecified depression type ([facility]) Type 2 diabetes mellitus without complication, without long-term current use of insulin ([facility])- Primary Essential hypertension, benign (CMS/HCC) Essential hypertension, benign Asymptomatic microscopic hematuria Degenerative disc disease, cervical Class 3 severe obesity due to excess calories without serious comorbidity with body mass index (BMI) of 45.0 to 49.9 in adult ([facility]) Upper extremity weakness- Primary Other musculoskeletal symptoms referable to limbs Morbid (severe) obesity due to excess calories (CMS/HCC) Body mass index (BMI) 40.0-44.9, adult ([facility]) Rheumatoid arthritis with rheumatoid factor, unspecified ([facility]) Depression, unspecified (CMS/HCC) Type 2 diabetes mellitus without complication, without long-term current use of insulin ([facility]) Other seasonal allergic rhinitis Essential hypertension, benign (CMS/HCC) Essential hypertension, benign Essential (primary) hypertension (CMS/HCC) Unspecified essential hypertension Type 2 diabetes mellitus without complications (CMS/HCC) Other chronic pain Primary insomnia Persistent disorder of initiating or maintaining sleep Essential hypertension, benign (CMS/HCC)- Primary Essential hypertension, benign Type 2 diabetes mellitus without complication, without long-term current use of insulin (CMS/HCC) Body mass index (BMI) 40.0-44.9, adult ([facility]) Morbid (severe) obesity due to excess calories [...] episode of recurrent major depressive disorder (CMS/HCC) CIDP (chronic inflammatory demyelinating polyneuropathy) (CMS/HCC)- Primary Chronic inflammatory demyelinating polyneuritis Major depressive disorder, recurrent, moderate (CMS/HCC) Major depressive disorder, recurrent episode, moderate Morbid (severe) obesity due to excess calories (CMS/HCC) Essential (primary) hypertension (CMS/HCC) Unspecified essential hypertension Body mass index (BMI) 39.0-39.9, adult Rheumatoid arthritis with rheumatoid factor, unspecified (CMS/HCC) Type 2 diabetes mellitus without complications (CMS/HCC) Essential hypertension, benign (CMS/HCC) Essential hypertension, benign Type 2 diabetes mellitus without complication, without long-term current use of insulin ([facility]) Upper extremity weakness Other musculoskeletal symptoms referable to limbs documented in this encounter [facility]* Diagnosis Hunger, initial encounter- Primary CIDP (chronic inflammatory demyelinating polyneuropathy) ([facility]) Chronic inflammatory demyelinating polyneuritis [facility] Diagnosis CIDP (chronic inflammatory demyelinating polyneuropathy) ([facility])- Primary Chronic inflammatory demyelinating polyneuritis documented [facility] System[facility] general Narrative - Reported* Type Description Date Medical History rheumatoid arthritis Medical History type 2 diabeties Medical History Benign essential HTN Medical History Depression Surgical History tonsillectomy and adenoidectomy 1987 Hospitalization History tonsillitis childo d [employer] Other Hospital Discharge instructionsAmbulatory Orders* PT/OT/SP OutPatient Referral Time Frame: 1 Day, Location: Determined By Patient Additional Instructions Follow up in the neurology office. Follow up with your Endoscope Technician in [place].[facility] Work Phone: Hospital Discharge instructions* Attachments The following attachments cannot be sent through Care Everywhere. * Weakness: Generalized ([place]) * Numbness and Tingling ([place]) documented in this encounterMartin [facility] HospitalInstructionsNot on filedocumented in this encounterProAvita Health SystemInstructionsNot on filedocumented in this encounterProUniversity [facility] SystemInstructionsNot on filedocumented in this encounterProUniversity [facility] SystemInstructionsNot on filedocumented in this encounterProUniversity [facility] SystemInstructionsNot on filedocumented in this encounterProAvita Health SystemInstructionsNot on filedocumented in this encounterZanesville City HospitalReason for referral (narrative)* Consultation (Routine) - New Request Specialty Diagnoses / Procedures Referred By Rosalie kim Referred To Contact Podiatry Diagnoses Injury of toe on right foot, initial encounter Gale Roca APRN-HERIBERTO [address] [address] Referral ID Status Reason Start Date Expiration Date V isits Requested Visits Authorized [id number] New Request 06/18/2024 07/13/2025 1 [facility] Consultation (Routine) - New Request Specialty Diagnoses / Procedures Referred By Rosalie kim Referred To Contact Neurology Diagnoses Generalized weakness Paresthesia of skin Hector Napoles MD [address] [place] [address] Referral ID Status Reason Start Date Expiration Date V isits Requested Visits Authorized [id number] New Request 06/22/2024 07/17/2025 1 1 [facility] Summary Purpose Family History No Family History [...] With: Patient Date Activated Date Inactivated Comments 08/09/2024 4:34 PM 08/15/2024 7:06 PM Date Activated Date Inactivated Comments 08/09/2024 4:34 PM 08/15/2024 7:06 PM Chief Complaint and Reason for Visit Chief Complaint Sent from [employer] [employer] [facility] Reason for Visit Diabetes HTN (hypertension) Upper extremity weakness Chief Complaint Sent from [employer] [employer] [facility] leg numbness Reason for Visit Diabetes HTN (hypertension) Upper extremity weakness Bilateral arm weakness Bilateral leg weakness Diabetes HTN (hypertension) Leukocytosis Upper extremity weakness Chief Complaint Sent from [employer] [facility] leg numbness Reason for Visit Diabetes HTN (hypertension) Upper extremity weakness Bilateral arm weakness Bilateral leg weakness Diabetes Falls Fasciculation HTN (hypertension) Leukocytosis Upper extremity weakness Reason for Referral Specialty Diagnoses / Procedures Referred By Rosalie kim Referred To Contact Diagnoses Brachial plexopathy Procedures CONSULT TO NEUROMUSCULAR MEDIC OFFICE/OUTPATIENT [facility] 60 MINUTES Keith Leone MD [address] [place] [address] Referral ID Status Reason Start Date Expiration Date Visits Requested Visits Authorized [id number] Authorized PCP Requested Referral 4 07/10/2025 1 1 Specialty Diagnoses / Procedures Referred By Rosalie kim Referred To Contact [facility] Diagnoses Brachial plexopathy Procedures CONSULT TO PERFORMANCE REPORTER OCCUPATIONAL THERAPY [facility] COM[facility] 60 MINS Keith Leone MD [address] [place] [address] [facility] [address] [address] Referral ID Status Reason Start Date Expiration Date Visits Requested Visits Authorized [id number] Pending Review Auto-Generat ed Referral 4 07/10/2025 1 1 Specialty Diagnoses / Procedures Referred By Rosalie kim Referred To Contact [facility] Diagnoses Brachial plexopathy Procedures EMG(NEURO/NI) NERVE CONDUCTION STUDIES 9-10 STUDIES Keith Leone MD [address] [place] [address] Neurological [place] [address] [place] [phone] Referral ID Status Reason Start Date Expiration Date Visits Requested Visits Authorized [id number] New Request Auto-Generat ed Referral 4 07/10/2025 1 1 Additional Source Comments (unrecognized sect ion and content) No Status Records FoundNo Status Records FoundNo Status Records FoundNo Status Records FoundNo Status Records FoundNo Status Records FoundNo Status Records FoundNo Status Records FoundNo Status Records FoundNo Status Records FoundNo Status Records Found INFORMATION SOURCE (unrecogn ized section and content) DATE CREATED AUTHOR 11/14/2018 [facility] DATE CREATED AUTHOR AUTHOR'S ORGANIZ ATION 04/25/2022 [facility] DATE CREATED AUTHOR AUTHOR'S ORGANIZ ATION 04/08/2024 [facility] DATE CREATED AUTHOR AUTHOR'S ORGANIZ ATION 06/25/2024 [facility] DATE CREATED AUTHOR AUTHOR'S ORGANIZ ATION 07/12/2024 [facility] DATE CREATED AUTHOR AUTHOR'S ORGANIZ ATION 07/13/2024 [facility] DATE CREATED AUTHOR AUTHOR'S ORGANIZ ATION 09/12/2024 [facility] DATE CREATED AUTHOR AUTHOR'S ORGANIZ ATION 09/17/2024 [facility] DATE CREATED AUTHOR AUTHOR'S ORGANIZ ATION 10/08/2024 [facility] EPIC DATE CREATED AUTHOR AUTHOR'S ORGANIZ ATION 10/09/2024 [facility] DATE CREATED AUTHOR AUTHOR'S ORGANIZ ATION 10/12/2024 [facility] Source Comments (unrecognize d section and content) In the event this informatio n is protected by the Federal Confidentiality of Alcohol and Drug Abuse Patient Records regulations: The Federal rules restrict any use of the information to criminally investigate or prosecute any alcohol or drug abuse patient.[facility] HospitalIn the event this information is protected by the Federal Confidentiality of Alcohol and Drug Abuse Patient Records regulations: The Federal rules restrict any use of the information to criminally investigate or prosecute any alcohol or drug abuse patient.[facility] HospitalIn the event this information is protected by the Federal Confidentiality of Alcohol and Drug Abuse Patient Records regulations: The Federal rules restrict any use of the information to criminally investigate or prosecute any alcohol or drug abuse patient.[facility] Reason for Visit (unrecogniz ed section [...] fall. Rates pain to right knee 2/10 Reason Comments Ambulatory Social Work Financial Difficu lties Reason Comments Diabetes Reason Comments Med Refill Reason Onset Date Comments Home Health 08/06/2024 Reason Comments Sensory disturbance Reason Comments New Patient Specialty Diagnoses / Procedures Referred By Rosalie kim Referred To Contact Neurology Diagnoses CIDP (chronic inflammatory demyelinating polyneuropathy) ([facility]) Primary osteoarthritis of both hands Leland Melissa MD [address] [place] [phone] Phone: tel: fax: Cisco Juan MD [address] [place] [address] Phone: tel: fax: Referral ID Status Reason Start Date Expiration Date Visits Requested Visits Authorized [id number] Pending Review Specialty Services Required 08/15/2025 1 1 Reason Onset Date Comments IVIG 08/23/2024 Reason Comments Outpatient Infusion IVIG Specialty Diagnoses / Procedures Referred By Rosalie kim Referred To Contact Diagnoses CIDP (chronic inflammatory demyelinating polyneuropathy) ([facility]) Procedures [facility] GAMMAGARD LIQUID INJECTION Cisco Juan MD [address] [place] [address] Phone: tel: fax: [facility] - Medical Oncology [address] [place] [phone] Phone: tel: fax: Referral ID Status Reason Start Date Expiration Date V isits Requested Visits Authorized [id number] Authorized 08/16/2024 09/10/2025 18 18 Referral ID Status Reason Start Date Expiration Date V isits Requested Visits Authorized [id number] Pending Review 08/16/2024 09/10/2025 18 18 Telephone Encounter - Shagufta Burton - 11/07/2013 2:22 PM EDT Miscellaneous Notes (unrecog nized section and content) Called left message for patient in regards to appointment on 11/08/2013 @ 3:30 with being cancelled and needing to be rescheduled. Waiting on a call back from patient. documented in this encounter Care Teams (unrecognized sec tion and content) Linter Operator Relationship Specialty Start Date End Date Lexa Hickman MD PCP - General Family Medicine 03/15/23 Cecy Hernandez NP [address] [place] [address] Referring Physician Nurse Practitioner 03/15/23 Team Status: [...] March 30, 2024 End: March 30, 2024 Linter Operator Relationship Specialty Start Date End Date Lexa Hickman MD [address] [place] [phone] PCP - General Family Medicine 11/16/23 Cecy Hernandez NP [address] [place] [phone] Referring Physician Nurse Practitioner 03/15/23 Cecy Hernandez NP [address] [place] [phone] Nurse Practitioner Family Medicine 11/16/23 Linter Operator Relationship Specialty Start Date End Date Lexa Hickman MD [address] [place] [phone] PCP - General Family Medicine 11/16/23 Cecy Hernandez NP [address] [place] [phone] Referring Physician Nurse Practitioner 03/15/23 Cecy Hernandez NP [address] [place] [phone] Nurse Practitioner Family Medicine 11/16/23 Linter Operator Relationship Specialty Start Date End Date Cecy Hernandez CNP [address] [place] [phone] PCP - General Certified Nurse Practitioner 06/22/24 Linter Operator Relationship Specialty Start Date End Date Unallocated, Brandons MD Stephan [address] [place] [address] PCP - General Family Medicine 06/11/24 Cecy Hernandez NP [address] [place] [phone] Referring Physician Nurse Practitioner 03/15/23 Cecy Hernandez NP [address] [place] [phone] Nurse Practitioner Family Medicine 11/16/23 Linter Operator Relationship Specialty Start Date End Date Unallocated, Serena Rothman MD [address] [place] [address] PCP - General Family Medicine 06/11/24 Cecy Hernandez NP [address] [place] [phone] Referring Physician Nurse Practitioner 03/15/23 Cecy Hernandez NP [address] [place] [place] [phone] Nurse Practitioner Family Medicine 11/16/23 Linter Operator Relationship Specialty Start Date End Date Unallocated, Serena Rothman MD [address] [place] [address] PCP - General Family Medicine 06/11/24 Ceyc Hernandez NP [address] [place] [phone] Referring Physician Nurse Practitioner 03/15/23 Cecy Hernandez NP [address] [place] [address] Nurse Practitioner Family Medicine 11/16/23 Linter Operator Relationship Specialty Start Date End Date Cecy Hernandez CNP [address] [place] [address] PCP - General Family Medicine 06/24/24 Linter Operator Relationship Specialty Start Date End Date Cecy Hernandez EXCHANGE SPECIALIST [address] [place] [address] PCP - General Family Medicine 06/24/24 Linter Operator Relationship Specialty Start Date End Date Lexa Hickman MD [address] [place] [phone] PCP - General Family Medicine 06/27/24 Cecy Hernandez NP [address] [place] [phone] Referring Physician Nurse Practitioner 03/15/23 Cecy Hernandez NP [address] [place] [address] Nurse Practitioner Family Medicine 11/16/23 Linter Operator Relationship Specialty Start Date End Date Lexa Hickman MD [address] [place] [address] PCP - General Family Medicine 06/27/24 Cecy Hernandez NP [address] [place] [phone] Referring Physician Nurse Practitioner 03/15/23 Cecy Hernandez NP [address] [place] [address] Nurse Practitioner Family Medicine 11/16/23 Linter Operator Relationship Specialty Start Date End Date Lexa Hickman MD [address] [place] [address] PCP - General Family Medicine 06/27/24 Cecy Hernandez NP [address] [place] [address] Referring Physician Nurse Practitioner 03/15/23 Cecy Hernandez NP [address] [place] [address] Nurse Practitioner Family Medicine 11/16/23 Linter Operator Relationship Specialty Start Date End Date Lexa Hickman MD [address] [place] [address] PCP - General Family Medicine 06/27/24 Cecy Hernandez NP [address] [place] [address] Referring Physician Nurse Practitioner 03/15/23 Cecy Hernandez NP [address] [place] [address] Nurse Practitioner Family Medicine 11/16/23 Linter Operator Relationship Specialty Start Date End Date Lexa Hickman MD [address] [place] [address] PCP - General Family Medicine 11/16/23 Cecy Hernandez NP [address] [place] [address] Referring Physician Nurse Practitioner 03/15/23 Cecy Hernandez NP [address] [place] [address] Nurse Practitioner Family Medicine 11/16/23 Linter Operator Relationship Specialty Start Date End Date Lexa Hickman MD [address] [place] [address] PCP - General Family Medicine 11/16/23 Cecy Hernandez NP [address] [place] [address] Referring Physician Nurse Practitioner 03/15/23 Cecy Hernandez NP [address] [place] [address] Nurse Practitioner Family Medicine 11/16/23 Linter Operator Relationship Specialty Start Date End Date Lexa Hickman MD [address] [place] [address] PCP - General Family Medicine 11/16/23 Cecy Hernandez NP [address] [place] [address] Referring Physician Nurse Practitioner 03/15/23 Cecy Hernandez NP [address] [place] [address] Nurse Practitioner Family Medicine 11/16/23 Linter Operator Relationship Specialty Start Date End Date Lexa Hickman MD [address] [place] [phone] PCP - General Family Medicine 11/16/23 Cecy Hernandez NP [address] [place] [address] Referring Physician Nurse Practitioner 03/15/23 Cecy Hernandez NP [address] [place] [address] Nurse Practitioner Family Medicine 11/16/23 Linter Operator Relationship Specialty Start Date End Date Lexa Hickman MD [address] [place] [address] PCP - General Family Medicine 11/16/23 Cecy Hernandez NP [address] [place] [address] Referring Physician Nurse Practitioner 03/15/23 Cecy Hernandez NP [address] [place] [address] Nurse Practitioner Family Medicine 11/16/23 Linter Operator Relationship Specialty Start Date End Date Cecy Hernandez, JEWEL STRIPPER-EXCHANGE SPECIALIST [address] [place] [phone] PCP - General Nurse Practitioner 08/08/24 Linter Operator Relationship Specialty Start Date End Date Cecy Hernandez [facility] [address] [place] [address] PCP - General Nurse Practitioner 08/08/24 Linter Operator Relationship Specialty Start Date End Date Cecy Hernandez, [facility] [address] [place] [phone] PCP - General Nurse Practitioner 08/08/24 Linter Operator Relationship Specialty Start Date End Date Cecy Hernandez [facility] [address] [place] [phone] PCP - General Nurse Practitioner 08/08/24 Linter Operator Relationship Specialty Start Date End Date Cecy Hernandez [facility] [address] [place] [phone] PCP - General Nurse Practitioner 08/08/24 Linter Operator Relationship Specialty Start Date End Date Lexa Hickman MD [address] [place] [phone] PCP - General Family Medicine 06/27/24 Cecy Hernandez NP [address] [place] [address] Referring Physician Nurse Practitioner 03/15/23 Cecy Hernandez NP [address] [place] [address] Nurse Practitioner Family Medicine 11/16/23 Linter Operator Relationship Specialty Start Date End Date Lexa Hickman MD [address] [place] [address] PCP - General Family Medicine 06/27/24 Cecy Hernandez NP [address] [place] [address] Referring Physician Nurse Practitioner 03/15/23 Cecy Hernandez NP [address] [place] [address] Nurse Practitioner Family Medicine 11/16/23 Linter Operator Relationship Specialty Start Date End Date Cecy Hernandez [facility] [address] [place] [phone] PCP - General Nurse Practitioner 08/08/24 Linter Operator Relationship Specialty Start Date End Date Cecy Hernandez APRN-[facility] [address] [place] [address] PCP - General Nurse Practitioner 08/08/24 Linter Operator Relationship Specialty Start Date End Date Lexa Hickman MD [address] [place] [address] PCP - General Family Medicine 06/27/24 Cecy Hernandez NP [address] [place] [phone] Referring Physician Nurse Practitioner 03/15/23 Cecy Hernandez NP [address] [place] [address] Nurse Practitioner Family Medicine 11/16/23 Scheduled Active [...] BE BASED ON THE PRIMARY CLINICAL RECORDS. [employer]. provides no warranty or guarantee of the accuracy or completeness of information in this document.
--- NOTE | 2024-10-12 12:42 | XR_ITS ---
The [address] [address] Patient Name: BHUMIKA BRYANT MRN: [id number] date: 1975 Sex: M Assigned Patient Location: ER Current Patient Location: ER Accession/Order Number: [id number] Exam Date: 10/12/2024 12:50 Report Date: 10/12/2024 13:55 At the request of: YASSINE HUITRON Procedure: XR chest 1V EXAM: XR chest 1V HISTORY: Peripheral edema COMPARISON: Chest radiograph dated 02/08/2019 will not load. TECHNIQUE: AP erect portable chest radiograph performed. FINDINGS: The trachea is midline. The heart size is normal. The cardiomediastinal silhouette and hilar shadows are normal. There is no consolidation, pleural effusion or pulmonary vascular congestion. There is no pneumothorax and the osseous structures are unremarkable. XR/XR chest 1V IMPRESSION: Unremarkable AP erect portable chest radiograph. Electronically authenticated by: ADIS GARZA Date: 10/12/2024 13:55
--- NOTE | 2024-10-12 12:42 | ECG_ITS ---
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
--- NOTE | 2024-10-12 12:42 | ED.GENADUL1 ---
HPI HPI - General Adult General Chief complaint: Extremity Problem, Nontraumatic Stated complaint: LOWER EXTREMITY SWELLING, NEW MEDICATION Time Seen by Provider: 10/12/24 12:29 Source: patient Mode of arrival: walk-in Limitations: no limitations History of Present Illness HPI narrative: 49-year-old male presents to the emergency department for swelling in his legs. He states it has been like this for 3 days since he started high-dose prednisone. He is on it for an unspecified connective tissue disorder. He does not complain of chest pain or shortness of breath or fever. Related Data Home Medications ?Medication ?Instructions ?Recorded ?Confirmed loratadine 10 mg tablet (Allergy 10 mg PO DAILY 01/16/24 08/08/24 Relief (loratadine)) meloxicam 15 mg tablet 15 mg PO DAILY 01/16/24 08/08/24 metformin 1,000 mg tablet 500 mg PO .with meals 01/16/24 08/08/24 pioglitazone 30 mg tablet (Actos) 30 mg PO DAILY 04/12/24 08/08/24 amitriptyline 10 mg tablet 10 mg PO Q24H 08/08/24 08/08/24 aspirin 81 mg chewable tablet 1 tab PO .QD 08/08/24 08/08/24 citalopram 40 mg tablet 40 mg PO .QD 08/08/24 08/08/24 dapagliflozin propanediol 5 mg 5 mg PO .QD 08/08/24 08/08/24 tablet (Farxiga) fluticasone propionate 50 2 spray intranasal .QD 08/08/24 08/08/24 mcg/actuation nasal spray,suspension lisinopril 20 1 tab PO .QD 08/08/24 08/08/24 mg-hydrochlorothiazide 25 mg tablet simvastatin 20 mg tablet 20 mg PO .QHS 08/08/24 08/08/24 tizanidine 4 mg tablet 4 mg PO .QHS PRN muscle spasticity 08/08/24 08/08/24 Previous Rx's ?Medication ?Instructions ?Recorded furosemide 20 mg tablet (Lasix) 20 mg PO DAILY #7 tabs 10/12/24 Allergies Allergy/AdvReac Type Severity Reaction Status Date / Time adhesive tape Allergy Mild Rash Verified 08/08/24 02:32 almond Allergy Mild Rash Verified 08/08/24 02:32 penicillin G Allergy Mild Vomiting Verified 08/08/24 02:32 oxytetracycline AdvReac Unknown Unknown Verified 08/08/24 02:32 [email or web address] Allergy Mild Rash Uncoded 08/08/24 02:32 Opioid HPI Opioid Management Most Recent Opioid Data: Last Pain Scale 0 08/09/24 13:34 08/09/24 Last ORT Total Score 3 08/08/24 08:13 08/08/24 Last ORT Risk Category Low Risk 08/08/24 08:13 08/08/24 Review of Systems ROS Narrative A ten point review of systems is negative except as noted above. [facility] Medical History (Updated 10/12/24 @ 14:02 by Gurvinder Metzger MD) Numbness of fingers of both hands ?R20.0 - Anesthesia of skin (ICD-10) Sleep apnea ?G47.30 - Sleep apnea, unspecified (ICD-10) Diabetes ?E11.9 - Type 2 diabetes mellitus without complications (ICD-10) Bilateral arm weakness ?R29.898 - Other symptoms and signs involving the musculoskeletal system (ICD-10) Cervical spinal stenosis ?M48.02 - Spinal stenosis, cervical region (ICD-10) Paresthesia ?R20.2 - Paresthesia of skin (ICD-10) Type 2 diabetes mellitus ?E11.9 - Type 2 diabetes mellitus without complications (ICD-10) Tonsillitis ?J03.90 - Acute tonsillitis, unspecified (ICD-10) Seasonal allergies ?J30.2 - Other seasonal allergic rhinitis (ICD-10) Rheumatoid arthritis ?M06.9 - Rheumatoid arthritis, unspecified (ICD-10) EDDI (obstructive sleep apnea) ?G47.33 - Obstructive sleep apnea (adult) (pediatric) (ICD-10) Hypertension ?I10 - Essential (primary) hypertension (ICD-10) Epigastric pain ?R10.13 - Epigastric pain (ICD-10) Depression ?F32.A - Depression, unspecified (ICD-10) Obesity ?E66.9 - Obesity, unspecified (ICD-10) Chronic pain ?G89.29 - Other chronic pain (ICD-10) Cellulitis ?L03.90 - Cellulitis, unspecified (ICD-10) Anxiety ?F41.9 - Anxiety disorder, unspecified (ICD-10) Surgical History Hx of tonsillectomy ?Z90.89 - Acquired absence of other organs (ICD-10) H/O adenoidectomy ?Z90.89 - Acquired absence of other organs (ICD-10) Family History (Updated 08/08/24 @ 08:43 by Fany Rae) Other Family history of colon cancer Family history of diabetes mellitus Family history of heart disease Family history of hypertension Family history of stroke Social History (Updated 08/08/24 @ 08:44 by Fany Rae) Within the past year, how often did you have a drink containing alcohol: never Score interpretation: A score less than 4 is consistent with normal alcohol consumption. Smoking status: Former smoker Non-prescribed substance use: denies use Previous occupational history: does not work Highest level of school completed/degree received: high school graduate In a typical week, how many times do you talk on the telephone with family, friends, or neighbors: once per week How often do you get together with friends or relatives: once per week How often do you attend methodist or yazidism services: never Do you belong to any clubs or organizations such as methodist groups unions, [employer] or athletic groups, or school groups: no Little interest or pleasure in doing things: not at all Feeling down, depressed, or hopeless: not at all Feel stressed/tense/nervous/anxious/difficulty sleeping: to some extent Life stressor details: homeless Due to disability, difficulty making decisions: No Do you think of yourself as: straight/heterosexual Gender Identity: male Exam Narrative Exam Narrative: Nurses note and vital signs reviewed and patient is not hypoxic. General: The patient appears in no apparent distress. Patient is resting comfortably on cart. He is speaking in full sentences. Skin: Warm, dry, no pallor noted. There is no rash noted. Head: Normocephalic, atraumatic Eye: Normal conjunctiva, no drainage Ears, Nose, Mouth, and Throat: oral mucosa is moist. Nares patent. Cardiovascular: Regular Rate and Rhythm Respiratory: Patient is in no distress, no accessory muscle use, lungs are clear to auscultation, no wheezing, rales or rhonchi Back: non-tender GI: Soft and nontender Musculoskeletal: Bilateral lower extremity edema Neurological: A&O, normal speech Psychiatric: Cooperative Constitutional Vital Signs, click to edit/add: Last Vital Signs Temp 98.4 F 10/12/24 12:30 Pulse 97 H 10/12/24 12:30 Resp 18 10/12/24 12:30 BP 147/97 H 10/12/24 12:30 Pulse Ox 99 10/12/24 12:30 O2 Del Method Room Air 10/12/24 12:30 Course Vital Signs Vital signs: Vital Signs Temperature 98.4 F 10/12/24 12:30 Pulse Rate 97 H 10/12/24 12:30 Respiratory Rate 18 10/12/24 12:30 Blood Pressure 147/97 H 10/12/24 12:30 Pulse Oximetry 99 10/12/24 12:30 Oxygen Delivery Method Room Air 10/12/24 12:30 Temperature 98.4 F 10/12/24 12:30 Pulse Rate 97 H 10/12/24 12:30 Respiratory Rate 18 10/12/24 12:30 Blood Pressure 147/97 H 10/12/24 12:30 Pulse Oximetry 99 10/12/24 12:30 Oxygen Delivery Method Room Air 10/12/24 12:30 Medical Decision Making [facility] Narrative Medical decision making narrative: The patient has peripheral edema, weight from the prednisone. He will contact the prescribing physician and will be placed on Lasix and will follow-up. Treatment diagnosis and follow-up were discussed with the patient. He is encouraged to elevate his legs. Differential Diagnosis Differential Diagnosis: Peripheral edema, medication side effect Lab Data Lab results reviewed: Yes I reviewed the patient's lab results Labs: Lab Results 10/12/24 Range/Units 12:47 WBC 14.0 H (4.0-11.0) 10^3/uL RBC 4.79 (4.70-6.10) 10^6/uL Hgb 14.6 (14.0-18.0) g/dL Hct 44.3 (42.0-54.0) % MCV 92.5 (80.0-94.0) fL MCH 30.5 (25.9-34.0) pg MCHC 33.0 (29.9-35.2) g/dL RDW 15.5 H (11.0-15.0) % Plt Count 193 (150-450) 10^3/uL MPV 9.4 L (9.5-13.5) fL Neut % (Auto) 79.6 H (43.0-75.0) % Lymph % (Auto) 11.9 L (20.5-60.0) % [place] % (Auto) 5.7 (1.7-12.0) % Eos % (Auto) 1.5 (0.9-7.0) % Baso % (Auto) 0.2 (0.2-2.0) % Neut # (Auto) 11.1 H (1.4-6.5) 10^3/uL Lymph # (Auto) 1.7 (1.2-3.8) 10^3/uL [place] # (Auto) 0.8 (0.3-0.8) 10^3/uL Eos # (Auto) 0.2 (0.0-0.7) 10^3/uL Baso # (Auto) 0.0 (0.0-0.1) 10^3/uL Abs Immat Gran (auto) 0.16 H (0.00-0.03) 10^3/uL Imm/Tot Granulo (auto) 1.1 H (0.0-0.5) % Sodium 134 L (136-145) mmol/L Potassium 4.5 (3.5-5.1) mmol/L Chloride 98 (98-107) mmol/L Carbon Dioxide 27.0 (21.0-32.0) mmol/L Anion Gap 13.5 BUN 19.0 H (7.0-18.0) mg/dL Creatinine 0.97 (0.70-1.30) mg/dL Est GFR ( Amer) >60 (>=60 mL/min/1.73m^2) Est GFR (Non-Af Amer) >60 (>=60 mL/min/1.73m^2) BUN/Creatinine Ratio 19.6 Glucose 233 H (74-106) mg/dL Calcium 8.5 (8.5-10.1) mg/dL Imaging Data Chest x-ray: Radiologist's impression: ITS Impressions Chest X-Ray 10/12/24 12:42 IMPRESSION: Unremarkable AP erect portable chest radiograph. Electronically authenticated by: ADIS GARZA Date: 10/12/2024 13:55 ECG Data Attestation: I personally reviewed and interpreted this ECG as follows: (EKG on my interpretation shows sinus rhythm with a rate of 65 and no acute change) Discharge Plan Discharge Chief Complaint: Extremity Problem, Nontraumatic Clinical Impression: Peripheral edema Patient Disposition: Home, Self-Care Time of Disposition Decision: 14:02 Condition: Good Mode of Transportation: Private Vehicle Prescriptions / Home Meds: New furosemide [Lasix] 20 mg tablet 20 mg PO DAILY Qty: 7 0RF No Action loratadine [Allergy Relief (loratadine)] 10 mg tablet 10 mg PO DAILY meloxicam 15 mg tablet 15 mg PO DAILY metformin 1,000 mg tablet 500 mg PO .with meals pioglitazone [Actos] 30 mg tablet 30 mg PO DAILY amitriptyline 10 mg tablet 10 mg PO Q24H Rx Instructions: PT TAKES AT 8 PM aspirin 81 mg tablet,chewable 1 tab PO .QD citalopram 40 mg tablet 40 mg PO .QD dapagliflozin propanediol [Farxiga] 5 mg tablet 5 mg PO .QD fluticasone propionate 50 mcg/actuation spray,suspension 2 spray INTRANASAL .QD lisinopril-hydrochlorothiazide 20-25 mg tablet 1 tab PO .QD simvastatin 20 mg tablet 20 mg PO .QHS tizanidine 4 mg tablet 4 mg PO .QHS PRN (Reason: muscle spasticity) Print Language: Czech Instructions: Leg Edema (ED) Additional Instructions: Elevate legs frequently Contact the physician that prescribed the prednisone for you and explain the symptoms Referrals: Cecy Hernandez STEM CRUSHER [Primary Care Provider] - 1 week
[2024-10-12 13:22] LABS: Basophils Percent Auto 0.2 % (0.2-2.0); Eosinophils Absolute Auto 0.2 10^3/uL (0.0-0.7); Eosinophils Percent Auto 1.5 % (0.9-7.0); Hematocrit 44.3 % (42.0-54.0); Hemoglobin 14.6 g/dL (14.0-18.0); Immature Granulocytes Abs Auto 0.16 10^3/uL (0.00-0.03); Immature Granulocytes Pct Auto 1.1 % (0.0-0.5); Lymphocytes Absolute Auto 1.7 10^3/uL (1.2-3.8); Lymphocytes Percent Auto 11.9 % (20.5-60.0); Mean Corpuscular Hemoglobin 30.5 pg (25.9-34.0); Mean Corpuscular Volume 92.5 fL (80.0-94.0); Mean Platelet Volume 9.4 fL (9.5-13.5); Monocytes Absolute Auto 0.8 10^3/uL (0.3-0.8); Monocytes Percent Auto 5.7 % (1.7-12.0); Neutrophils Absolute Auto 11.1 10^3/uL (1.4-6.5); Neutrophils Percent Auto 79.6 % (43.0-75.0); Platelet Count 193 10^3/uL (150-450); Red Blood Count 4.79 10^6/uL (4.70-6.10); Red Cell Distribution Width 15.5 % (11.0-15.0)
[2024-10-12 13:23] LABS: Anion Gap 13.5; BUN Creatinine Ratio 19.6; Calcium 8.5 mg/dL (8.5-10.1); Chloride 98 mmol/L (98-107); Estimated GFR (African America >60 (>=60 mL/min/1.73m^2); Estimated GFR (Non-African Ame >60 (>=60 mL/min/1.73m^2); Glucose 233 mg/dL (74-106); Potassium 4.5 mmol/L (3.5-5.1); Sodium 134 mmol/L (136-145)
== END 2024-10-12 14:16 | disposition home or self-care (01) ==
PROVIDERS: Emergency Provider Emergency Medicine; PCP Nurse Practitioner
DX: R60.0 Localized edema (principal); Z87.891 Personal history of nicotine dependence
CPT/HCPCS: 36415; 71045; 80048; 81001; 85025; 93005; 99285

== ENCOUNTER 2024-10-30 11:30 | Outpatient (OUT) | payer MEDICAID, SELFPAY ==
[2024-10-30 11:55] LABS: Hematocrit 48.7 % (42.0-54.0); Mean Corpuscular HGB Conc 32.9 g/dL (29.9-35.2); Mean Corpuscular Hemoglobin 30.5 pg (25.9-34.0); Mean Corpuscular Volume 92.8 fL (80.0-94.0); Mean Platelet Volume 9.7 fL (9.5-13.5); Platelet Count 273 10^3/uL (150-450); Red Blood Count 5.25 10^6/uL (4.70-6.10); Red Cell Distribution Width 14.7 % (11.0-15.0); White Blood Count 22.3 10^3/uL (4.0-11.0)
[2024-10-30 12:31] LABS: Bilirubin Urine NEGATIVE (NEGATIVE); Blood Urine NEGATIVE (NEGATIVE); Clarity Urine CLEAR (CLEAR); Color Urine LT. YELLOW (YELLOW); Glucose Urine UA NEGATIVE (NEGATIVE); Ketones Urine NEGATIVE (NEGATIVE); Leukocyte Esterase Urine NEGATIVE (NEGATIVE); Nitrite Urine NEGATIVE (NEGATIVE); Protein Urine NEGATIVE (NEG/TRACE); Urine Microscopic Indicated NO
[2024-10-30 12:54] LABS: Creatinine Urine Random 78.95 mg/dL (20.00-300.00); Microalbumin Urine Random <1.3 mg/dL (<=30.0)
[2024-10-30 13:02] LABS: Alanine Aminotransferase 40 U/L (16-63); Albumin Globulin Ratio 0.9; Albumin Level 3.3 g/dL (3.4-5.0); Alkaline Phosphatase 54 U/L (46-116); Anion Gap 15.7; Aspartate Amino Transferase 28 U/L (15-37); BUN Creatinine Ratio 26.6; Bilirubin Total 0.8 mg/dL (0.2-1.0); Calcium 9.5 mg/dL (8.5-10.1); Carbon Dioxide 27.3 mmol/L (21.0-32.0); Chloride 97 mmol/L (98-107); Chol HDL Ratio 2.2; Cholesterol 180 mg/dL (<=200); Estimated GFR (African America >60 (>=60 mL/min/1.73m^2); Estimated GFR (Non-African Ame >60 (>=60 mL/min/1.73m^2); Globulin 3.8 g/dL; Glucose 175 mg/dL (74-106); HDL Cholesterol 80 mg/dL (40-60); Sodium 135 mmol/L (136-145); Total Protein 7.1 g/dL (6.4-8.2); Triglycerides 158 mg/dL (<=150); VLDL CHOLESTEROL 31.6 mg/dL
[2024-10-30 13:17] LABS: Lymphocytes Absolute Manual 2.89 10^3/uL (1.20-3.80); Monocytes Absolute Manual 0.89 10^3/uL (0.30-0.80); Segmented Neut Absolute Manual 18.73 10^3/uL (1.4-6.5)
== END 2024-10-30 11:31 | disposition home or self-care (01) ==
LOC: LAB 11:32
PROVIDERS: PCP Nurse Practitioner; Visit Provider Nurse Practitioner
DX: G61.81 Chronic inflammatory demyelinating polyneuritis (principal); I10 Essential (primary) hypertension; E66.01 Morbid (severe) obesity due to excess calories; E11.9 Type 2 diabetes mellitus without complications
CPT/HCPCS: 36415; 80053; 80061; 81003; 82043; 82570; 85007; 85025; 85027

== ENCOUNTER 2024-11-07 09:23 | Outpatient (OUT) | payer MEDICAID, SELFPAY ==
--- OUTSIDE RECORDS SUMMARY | 2024-11-07 09:36 | XMS_ITS | CCD ---
Author Organization [facility] Care Team Providers Care Sliver Lap Tender Name Role Phone PHYSICIAN, DEFAULT Admitting Unavailable PHYSICIAN, DEFAULT Attending Unavailable PEGGY GAYTAN Primary Care Unavailable Primo Downing Primary Care Provider [phone] Yue Pedroza Unavailable AICHHOLZ, BRAZER INDUCTION CECY Primary Care Unavailable AICHHOLZ, BRAZER INDUCTION CECY Admitting Unavailable AICHHOLZ, BRAZER INDUCTION CECY Attending Unavailable AICHHOLZ, BRAZER INDUCTION CECY Consulting Unavailable AICHHOLZ, BRAZER INDUCTION CECY Primary Care Unavailable AICHHOLZ, BRAZER INDUCTION CECY Admitting Unavailable AICHHOLZ, BRAZER INDUCTION CECY Attending Unavailable AICHHOLZ, BRAZER INDUCTION CECY Consulting Unavailable AICHHOLZ, BRAZER INDUCTION CECY Admitting Unavailable AICHHOLZ, BRAZER INDUCTION CECY Attending Unavailable AICHHOLZ, BRAZER INDUCTION CCEY Consulting Unavailable AICHHOLZ, BRAZER INDUCTION CECY Primary Care Unavailable AICHHOLZ, BRAZER INDUCTION CECY Primary Care Unavailable VISHAL, DR THANG Nichols Attending Unavailabl ken RODGERS, DR THANG Nichols Consulting Unavailabl ken RODGERS, DR THANG Nichols Admitting Unavailabl e LITZY, JAKOB Consulting Unavailable Lexa Hickman MD Primary Care Provider [phone] Aichholz VENDING MACHINE TECHNICIAN, Cecy Unavailable Aichholz, Cecy J Primary Care Provider [phone] MD Gale Gonzales Emergency Provider DO Bola Garcia Admit Provider DO Danial Horan Other Provider MD Simon Wolfe Attending Provider [phone] DO Emily Winn Emergency Provider MD Edgar Gomez Admit Provider MD Edgar Gomez Attending Provider DO Bola Garcia Attending Provider DO Altagracia Street Other Provider Aichholz VENDING MACHINE TECHNICIAN, Cecy Unavailable Lexa Hickman MD Primary Care Provider Aichholz VENDING MACHINE TECHNICIAN, Cecy Unavailable Unavailable Primary Care Provider Unavailabl e Aichholz BRAZER INDUCTION, Cecy Primary Care Provider AICRAVIN, CECY Primary Care Unavailable HECTOR NAPOLES Attending Unavailable Unallocated , Serena Provider Primary Care Provi karla Aichholz BRAZER INDUCTION, Cecy Ivanna Primary Care Provider [phone] DAREK VALDOVINOS Attending Unavailable ERROL SANFORD Referring Unavailable DAVID CECY IVANNA Primary Care Unavailable LELAND DANG BAHAI Attending Unavailable LELAND DANG BAHAI Admitting Unavailable YOBANYHSHER CECY IVANNA Primary Care Unavailable Lexa Hickman MD Primary Care Provider [phone] Aichholyancy TRUCK AND TRANSPORT MECHANIC-BRAZER INDUCTION, Cecy Miranda Primary Care Provider COTA, LULA N Attending Unavailable COTA, LULA N Referring Unavailable COTA, LULA N Referring Unavailable COTA, LULA N Attending Unavailable COTA, LULA N Referring Unavailable HOA, SABEENA PARKER Admitting Unavailable HOA, SABEENA PARKER Attending Unavailable VICTORIA DOMINGUEZ Referring Unavailable AICHSHER, CECY J Primary Care Unavailable ASHLEY BROUSSARD Consulting Unavailab le CECY HERNANDEZ J Referring Unavailable AICPaulieHOLYancy, CECY J Primary Care Unavailable LELAND AGUERO Referring Unavail able DAVID CECY J Primary Care Unavailable AICRAVIN CECY J Referring Unavailable AICRAVIN, CECY J Primary Care Unavailable COTA, LULA N Attending Unavailable AICHHOLZ, CECY J Primary Care Unavailable CLARISSE BRAVO Consulting Unavailable AICHHOLZ, CECY J Primary Care Unavailable CISCO JUAN Attending Unavailable LELAND AGUERO Referring Unavail able AICHHOLZ, CECY J Primary Care Unavailable CISCO JUAN Attending Unavailable AICHHOLZ, CECY J Referring Unavailable AICHHOLZ, CECY J Primary Care Unavailable Unavailable Primary Care Provider UnavailLauren Brennan Unavailable [phone] Aichholz, Cecy J Primary Care Provider Aichholz, Cecy J Attending Provider DAVID, CECY Attending Unavailable AICHHOLZ, CECY Attending Unavailable AICHHOLZ, CECY Attending Unavailable VICKY SCRUGGS Attending Unavailable TANA MARTINO Attending Unavailable AICHHOLZ, CECY Attending Unavailable JULIET HWANG Attending Unavailable MARYJANE LIANG Attending Unavailable YOBANYHHOLZ, CECY Attending Unavailable MARYJANE LIANG Attending Unavailable YOBANYHHOLZ, CECY Attending Unavailable AICHHOLZ, CECY Attending Unavailable Aichholz, Cecy J Admitting Unavailable Aichholz, Cecy J Primary Care Unavailable Aichholz, Cecy J Attending Unavailable Altagracia Street Consulting Unavailable Aichholz, Cecy J Primary Care Unavailable Edgar Gomez Admitting Unavailable Bola Garcia Attending UnavailDanial Leija Consulting Unavailable Aichholz, Cecy J Primary Care Unavailable Simon Wolfe Attending Unavailab Bola Chan Admitting UnavailLULA Hollins Referring Unavailable AICHHOLZ, CECY J Referring Unavailable AICHHOLZ, CECY J Primary Care Unavailable AICHHOLZ, CECY J Referring Unavailable AICHHOLZ, CECY J Primary Care Unavailable AICHHOLZ, CECY J Referring Unavailable AICHHOLZ, CECY J Primary Care Unavailable Allergies Allergy Classification Reported Allergen(s) Allergy Type Date of Onset Reaction(s) Facility (5 sources) Adhesive Tape; Translations: [ADHESIVE TAPE (ROSINS)] Allergy to substance 02-20-20 13 Rash [facility] (20 sources) Penicillins; Translations: [Penicillins] Drug Allergy 01-03-20 13 Unknown [facility] (1 source) Penicillins (Antibiotic) Drug allergy rash. 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 08-16-20 Dermatitis, Hives [facility] (20 sources) Oxytetracycline Drug Allergy 08-16-20 23 Unknown [facility] (20 sources) Penicillin G Drug Allergy 08-16-20 Unknown [facility] (20 sources) Other Allergy to substance 08-16-20 23 Unknown [facility] (20 sources) Wound Dressing Adhesive Propensity to adverse reactions to drug 08-16-20 [facility] (15 sources) almond allergenic extract; Translations: [ALMOND] Drug Allergy 03-23-20 24 [facility] (15 sources) cashew nut allergenic extract; Translations: [CASHEW NUT] Drug Allergy 03-23-20 24 [facility] (20 sources) almond allergenic extract Drug Allergy 03-29-20 [facility] (15 sources) Adhesive agent; Translations: [ADHESIVE] Propensity to adverse reactions to drug 02-20-20 13 [facility] (1 source) Adhesive Tape Drug allergy (disorder) 03-29-20 [facility] Repository Medications Current Medications Medication Drug Class(es) Dates Sig (Normalized) Sig (Original) amitriptyline hydrochloride 10 mg oral tablet (20 sources) Tricyclic Antidepressant Start: 07-05-2023 End: 10-07-2024 take 1 tablet by mouth once daily Amitriptyline 10 mg tablet Active 10 MG PO Daily March 22, 2024 11:00pm aspirin 81 mg chewable tablet (20 sources) [...] mg / cholecalciferol 125 unt oral tablet (10 sources) Vitamin D take 1 tablet by [...] tablet (20 sources) Serotonin Reuptake Inhibitor Start: 03-23-2024 End: 10-07-2024 take 1 tablet by mouth once daily citalopram (CeleXA) 40 MG tablet Indications: Depression, unspecified (CMS/HCC) Take 1 tablet (40 mg) by mouth Daily 30 tablet 5 05/29/2024 10/07/2024 Discontinued (Therapy completed) Start: 03-23-2024 End: 04-25-2014 take 40 mg by mouth once daily Citalopram Active 40 MG PO Daily March 23, 2024 12:00am citalopram (Hien XA) 40 mg tablet citalopram 40 mg tablet Active Comment on above: Take 40 mg by mouth once daily. dapagliflozin 5 mg oral tablet (20 sources) Sodium-Glucose Cotransporter 2 Inhibitor Start: 12-15-19 End: 10-07-19 25 take 1 tablet by mouth once daily Dapagliflozin Propanediol (Farxiga) 5 mg tablet Active 10 MG PO Daily March 22, 2024 11:00pm docusate sodium 50 mg / sennosides, long term 8.6 mg oral tablet (18 sources) Start: 08-16-20 24 take 2 tablets by mouth every twelve [...] spray (20 sources) Corticosteroid Start: 04-04-2024 End: 10-28-2024 take 2 spray(s) nasal route once daily fluticasone (Flonase) 50 MCG/ACT nasal spray Indications: Other seasonal allergic rhinitis Administer 2 sprays into each nostril Daily 16 g 5 06/27/2024 10/28/2024 Discontinued (Therapy completed) Start: 03-23-2024 Fluticasone Pr opionate 50 mcg/actuation spray,suspension Active 2 SPRAY INTRANASAL Daily at bedtime March 22, 2024 11:00pm Start: 10-08-2021 take 2 spray(s) nasa l [...] cap.. 0 Active Fluticasone Furo ate Active furosemide 20 mg oral tablet (5 sources) Loop Diuretic Start: 10-12-2024 take 1 tablet by mouth once daily furosemide (Lasix) 20 MG tablet Take 20 mg by mouth Daily 10/12/2024 Active gabapentin 300 mg oral capsule (4 sources) Anti-epileptic Agent Start: 03-23-2024 take 1 capsule by mouth twice daily Gabapentin 300 mg capsule Active 300 MG PO .bid March 22, 2024 11:00pm 150 ml glucose 50 mg/ml injection (3 sources) Start: 10-31-2024 take 25 mL intravenously every hour as needed 25 mL/hr, intravenous, Continuous PRN, When mainline IV needed., Starting on [facility] 10/31/24 at 0825, Match IVF to base solution of product being administered to ensure compatibility. Start: 10-10-2024 take 25 mL intraveno usly every hour as needed 25 mL/hr, intravenous, Continuous PRN, When mainline IV needed., Starting on [facility] 10/10/24 at 0832, Match IVF to base solution of product being administered to ensure compatibility. Start: 09-19-2024 End: 09-19-2024 take 25 mL intravenously every hour as needed 25 mL/hr, intravenous, Continuous PRN, When mainline IV needed., Starting on [facility] 09/19/24 at 0849, Match IVF to base solution [...] take 1 tablet by mouth once daily Lisinopril-Hydrochloro thiazide 20-25 mg tablet Active 1 TAB PO Daily March 22, 2024 11:00pm lisinopril-hydro CHLOROthiazide (PRINZIDE,ZESTORETIC) 20-25 mg per tablet [...] 10 mg oral tablet (20 sources) Start: 08-15-2024 take 1 tablet by mouth in the morning loratadine (CLARITIN) 10 mg tablet Take 1 tablet (10 mg total) by mouth in the morning. 08/15/2024 Active Start: 03-23-2024 End: 06-27-2024 take 1 tablet by mouth once daily Allergy Relief 10 MG tablet Indications: Other seasonal allergic rhinitis TAKE 1 TABLET BY MOUTH DAILY 30 tablet 5 06/27/2024 Active take 1 capsule by mo uth once daily loratadine 10 mg cap Take 10 mg by mouth once daily. Active meloxicam 15 mg oral tablet (20 sources) Nonsteroidal Anti-inflammatory Drug Start: 07-10-2024 End: 10-28-2024 take 1 tablet by mouth once daily meloxicam (Mobic) 15 MG tablet Take 15 mg by mouth Daily 07/10/2024 10/28/2024 Discontinued (Therapy completed) Start: 02-13-2023 End: 06-28-2024 take 1 tablet by mouth once daily meloxicam (Mobic) 15 MG tablet Take 15 mg by mouth Daily 07/10/2024 Active take 1 tablet by thang th once daily Meloxicam 15 MG Tab Dispersible Take 1 tablet by mouth daily. Active Mobic Active metFORMIN hydrochloride 1000 mg oral tablet (20 sources) Biguanide Start: 08-15-2024 take 1 tablet by mouth in the morning, then take 1 tablet by mouth at mealtime metFORMIN (GLUCOPHAGE) 1000 mg tablet Take 1 tablet (1,000 mg total) by mouth in the morning and 1 tablet (1,000 mg total) in the evening. Take with meals. 08/15/2024 Active Start: 03-23-2024 End: 05-04-2024 take 1 tablet [...] at breakfast metFORMIN (GLUCOPHAGE) 1,000 mg tablet Take 1,000 mg by mouth daily with breakfast. Active take 2 tablets by mo uth twice daily at mealtime metFORMIN 500 MG tablet Take 2 tablets by mouth 2 times daily with meals. Active multivitamin (DAILY MULTIPLE) tablet (3 sources) Start: 06-12-2013 take 1 tablet by mouth once daily multivitamin (DAILY MULTIPLE) tablet Indications: Rheumatoid arthritis(714.0) Take 1 tablet by mouth once daily. 0 06/12/2013 Active Comment on above: Take 1 tablet by [facility] once daily. omeprazole 20 mg delayed release oral capsule (10 sources) Proton Pump Inhibitor Start: 10-02-2024 take 1 capsule by mouth once daily omeprazole (PriLOSEC) [address] capsule Take 20 mg by mouth Daily 10/02/2024 Active pioglitazone 30 mg oral tablet (20 sources) Peroxisome Proliferator Receptor alpha Agonist, Peroxisome Proliferator Receptor gamma Agonist, Thiazolidinedione Start: 02-13-2023 End: 10-07-2024 take 1 tablet by mouth once daily Pioglitazone 30 mg tablet Active 30 MG PO Daily March 22, 2024 11:00pm Actos Active polyethylene glycol 3350 47209 mg powder for oral solution (1 source) Osmotic Laxative Start: 12-15-2022 polyethylene glycol, PEG, 3350 (Glycolax) 17 GM/SCOOP powder Take 17 g by mouth in the morning. 0 12/15/2022 Active predniSONE 5 mg oral tablet (13 sources) Start: 10-07-2024 End: 01-05-2025 take 2 tablets by mouth in the morning predniSONE (DELTASONE) 5 mg tablet Take 12 tablets (60 mg total) by mouth in the morning for 90 days. 360 tablet 2 10/07/2024 01/05/2025 Active Start: 10-07-2024 predniSONE (De ltasone) 5 MG tablet TAKE 12 TABLETS BY MOUTH IN THE MORNING 10/07/2024 Active Start: 08-21-2024 End: 08-22-2024 take 1 tablet by mouth in the morning predniSONE (DELTASONE) 20 mg tablet Take 1 tablet (20 mg total) by mouth in the morning. 08/21/2024 08/22/2024 Active Start: 03-23-2024 take 3 tablets by mo [facility] once daily, then take 2 tablets by mouth once daily, then take 1 tablet by mouth once daily Prednisone 10 mg tablet Active 30 MG PO Daily March 22, 2024 11:00pm orally daily; TAKE 3 TABLETS BY MOUTH DAILY FOR 3 DAYS, then TAKE 2 TABLETS BY MOUTH DAILY FOR 3 DAYS, then TAKE 1 TABLET BY MOUTH DAILY FOR 3 DAYS Start: 03-23-2024 take 3 tablets by mo [facility] once daily, then take 2 tablets by [...] the evening. 06/12/2024 10/07/2024 Discontinued (Therapy completed) take 1 capsule by mo [facility] three times daily pregabalin 75 MG capsule Take 1 capsule by mouth 3 times daily. Active rOPINIRole 0.25 mg oral tablet (10 sources) Nonergot Dopamine Agonist Start: 06-12-2024 End: 10-07-2024 rOPINIRole (Requip) 0.25 MG tablet Take 0.25 mg by mouth in the morning and 0.25 mg at noon and 0.25 mg in the evening. 06/12/2024 10/07/2024 Discontinued (Therapy completed) simvastatin 20 mg oral tablet (20 sources) HMG-CoA Reductase Inhibitor Start: 02-13-2023 End: 10-07-2024 take 1 tablet by mouth once daily at bedtime Simvastatin 20 mg tablet Active 20 MG PO Daily at bedtime March 22, 2024 11:00pm sulfamethoxazole 800 mg / trimethoprim 160 mg oral tablet (13 sources) Dihydrofolate Reductase Inhibitor Antibacterial, Sulfonamide Antimicrobial Start: 08-23-2024 take 1 tablet by mouth once sulfamethoxazole-tr imethoprim (BACTRIM DS) 800-160 mg per tablet Take 1 tablet by mouth. 08/23/2024 Active tiZANidine 4 mg oral tablet (20 sources) Central alpha-2 Adrenergic Agonist Start: 02-13-2023 End: 06-12-2024 take 1 tablet by mouth once daily at bedtime tiZANidine (ZANAFLEX) 4 mg tablet Indications: Primary osteoarthritis of both hands Take 1 tablet (4 mg total) by mouth once daily at bedtime. 30 tablet 5 06/12/2024 Active take 2 tablets by [facility] three times daily Tizanidine 2 MG tablet Take 2 tablets by mouth 3 times daily. Active Completed/Discontinued Medications Medication Drug Class(es) Dates Sig (Normalized) Sig (Original) acetaminophen 325 mg oral tablet (3 sources) Start: 10-31-2024 End: 10-31-2024 take 650 mg by mouth once 650 mg, oral, Once, On Natan 10/31/24 at 0830, For 1 dose Start: 10-10-2024 End: 10-10-2024 take 650 mg by mouth once 650 mg, oral, Once, On Natan at 0845, For 1 dose Start: 09-19-2024 [...] LIFETIME SUPPLIES. dexamethasone 4 mg oral tablet (11 sources) Corticosteroid Start: 08-23-2024 End: 10-07-2024 take [...] daily. diphenhydrAMINE hydrochloride 25 mg oral capsule (3 sources) Histamine-1 Receptor Antagonist Start: 10-31-2024 End: 10-31-2024 take 25 mg by mouth once 25 mg, oral, Once, On Natan 10/31/24 at 0830, For 1 dose, Look-alike/sound-a like medication - verify indication for use. Start: 10-10-2024 End: 10-10-2024 take 25 mg by mouth once 25 mg, oral, Once, On Natan at 0845, For 1 dose, Look-alike/sound-alike medication - verify indication for use. Start: 09-19-2024 End: 09-19-2024 take 25 mg by mouth once 25 mg, oral, Once, On Natan at 0900, For 1 dose, Look-alike/sound-alike medication - verify indication for use. 0.98 ml etanercept 50 mg/ml auto-injector (1 source) Tumor Necrosis Factor Darshana Start: 06-12-2013 End: 11-08-2013 Etanercept (ENBREL SURECLICK) [...] 1 tablet by thang th twice daily. 300 ml immunoglobulin g, human 100 mg/ml injection (3 sources) Human Immunoglobulin G Start: 10-31-2024 End: 10-31-2024 100 g, intravenous, Once, On Natan 10/31/24 at 0900, For 1 dose, Give specified dose daily for 1 days and repeat every 21 days Infuse per hospital policy. Vent tubing as needed. Infuse per Lexicomp administration instructions. See dispense label for titration instructions., Please specify indication category: Sub-acute Indications, Subacute Indication: Chronic Inflammatory Demyelinating Polyneuropathy - CIPD Start: 10-10-2024 End: 10-10-2024 100 g, intravenous, [...] once a week methylPREDNISolone 125 mg injection (3 sources) Corticosteroid Start: 10-31-2024 End: 10-31-2024 100 mg, intravenous, Once, On Natan 10/31/24 at 0830, For 1 dose, May alter blood glucose or insulin requirements. Look-alike/sound-alike medication - verify indication for use. 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] Onset: 04-17-2024 09-11-2024 Chronic Diabetes mellitus without complication (20 sources) Type 2 diabetes mellitus without complications; Translations: [Type 2 diabetes mellitus without complication] Onset: 01-11-2022 Resolved: 10-07-2024 Chronic Diseases of white blood cells (20 sources) Leukocytosis; Translations: [Elevated white blood cell count, unspecified] Onset: 04-04-2024 03-30-2024 Chronic Essential hypertension (20 sources) Essential (primary) hypertension; Translations: [Benign essential hypertension] Onset: 04-25-2022 Resolved: 10-07-2024 08-16-2023 Chronic Mood disorders (20 sources) Depressive disorder; Translations: [Depression] Onset: 08-16-2023 Resolved: 10-28-2024 08-16-2023 Chronic Mood disorders (9 sources) Mood disorders; Translations: [Depression, unspecified] Onset: 08-10-2024 Resolved: 10-07-2024 08-10-2024 Nutritional deficiencies (17 sources) Undernutrition; Translations: [Mild protein-calorie malnutrition] Onset: 06-25-2024 06-25-2024 Chronic Osteoarthritis (20 sources) Osteoarthritis of joint of bilateral hands; Translations: [Primary osteoarthritis, right hand] Onset: 06-12-2024 07-22-2024 Chronic Other aftercare (1 source) [facility]PC (current) use of oral hypoglycemic drugs; Translations: [PRODUCE TEAM MEMBER USE ORAL HYPOGLYCEMIC DX] Onset: 04-25-2022 Episodic Other aftercare (1 source) [facility] (current) use of aspirin; Translations: [PRODUCE TEAM MEMBER CURRENT USE OF ASPIRIN] Onset: 04-25-2022 Episodic Other aftercare (1 source) Other ocean transportation intermediary (current) drug therapy; Translations: [OTH PRODUCE TEAM MEMBER CURRENT DRUG THERAPY] Onset: 04-25-2022 Episodic Other connective tissue disease (3 sources) Paraparesis; Translations: [Other symptoms and signs involving the musculoskeletal system] 03-30-2024 Episodic Other connective tissue disease (3 sources) Bilateral weakness of upper limbs; Translations: [Other symptoms and signs involving the musculoskeletal system] 03-30-2024 Episodic Other connective tissue disease (14 sources) Muscle weakness; Translations: [Muscle weakness (generalized)] Onset: 08-16-2024 10-07-2024 Episodic Other connective tissue disease (3 sources) Disorder of muscle 06-12-2024 Episodic Other injuries [...] pain] 05-29-2024 Chronic Other nervous system disorders (1 source) Brachial plexus disorder; Translations: [Brachial plexus disorders] 07-10-2024 Chronic Other nervous system disorders (1 source) Brachial plexus disorders; Translations: [Brachial plexopathy] Onset: 07-10-2024 Chronic Other nervous system disorders (20 sources) Disorder of muscle; Translations: [Myopathy, unspecified] Onset: 06-12-2024 07-22-2024 Chronic Other nervous system disorders (20 sources) Chronic inflammatory demyelinating polyradiculoneuropath y; 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] Onset: 08-09-2024 08-16-2024 Chronic Other nervous system disorders (4 sources) Chronic inflammatory demyelinating polyneuritis; 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] Onset: 08-09-2024 Chronic Other nervous system disorders (1 source) Myopathy, unspecified; Translations: [Myopathy, unspecified] Onset: 06-12-2024 Chronic Other nervous system disorders (10 sources) Cognitive deficit in communication skills; Translations: [Cognitive communication deficit] Onset: 08-19-2024 10-07-2024 Chronic Other nervous system disorders (16 sources) Paresthesia; Translations: [Paresthesia of skin] Onset: [...] nutritional; endocrine; and metabolic disorders (20 sources) Obese class II; Translations: [Obesity, Class II, BMI 35-39.9] Onset: 07-10-2024 07-10-2024 Chronic Other nutritional; endocrine; and metabolic disorders (12 sources) Body mass index 30+ - obesity; Translations: [Body mass index (BMI) 39.0-39.9, adult] Onset: 10-07-2024 10-07-2024 Chronic Other nutritional; endocrine; and metabolic disorders (2 sources) Hungry; Translations: [Starvation, initial encounter] 10-07-2024 Episodic Other upper respiratory disease (1 source) Seasonal allergic rhinitis; Translations: [Other seasonal allergic rhinitis] 06-27-2024 Chronic Other upper respiratory disease (10 sources) Chronic rhinitis; Translations: [Chronic rhinitis] Onset: 08-15-2024 10-07-2024 Chronic Residual codes; unclassified (20 sources) Obstructive sleep apnea syndrome; Translations: [Obstructive sleep apnea (adult) (pediatric)] Onset: 11-16-2023 11-16-2023 Chronic Residual codes; unclassified (1 source) Pain, unspecified; Translations: [Pain, unspecified] Onset: 08-08-2024 Episodic Residual codes; unclassified (5 sources) Bilateral lower limb edema; Translations: [Localized edema] Onset: 10-28-2024 10-28-2024 Episodic Rheumatoid arthritis and related disease (20 sources) Rheumatoid arthritis, unspecified; Translations: [Flare of rheumatoid arthritis] Onset: 06-12-2013 06-12-2013 Chronic Spondylosis; intervertebral disc disorders; other back problems (20 sources) Degeneration of cervical intervertebral disc; Translations: [Other cervical disc degeneration, unspecified cervical region] Onset: 02-07-2024 02-07-2024 Chronic Spondylosis; intervertebral disc disorders; other back problems (10 sources) Spinal stenosis in cervical region; Translations: [...] 08-22-2024 Unclassified (1 source) Increased weakness - [place] Onset: 08-08-2024 Unclassified (1 source) Outpatient Infusion Onset: 09-19-2024 Past or Other Problems Problem Classification Problem Date Documented Da te Episodic/Chronic Diseases of mouth; excluding dental (20 sources) Xerostomia; Translations: [Disturbances of salivary secretion] Onset: 11-16-2023 11-16-2023 Episodic E Codes: Fall (19 sources) Fall on same level from slipping, tripping and stumbling with subsequent striking against other sharp object, initial encounter; Translations: [Fall] Onset: 04-25-2022 03-30-2024 Episodic Genitourinary symptoms and ill-defined conditions (20 sources) Asymptomatic microscopic hematuria; Translations: [Asymptomatic microscopic hematuria] Onset: 02-19-2024 02-19-2024 Episodic Immunizations and screening for infectious disease (3 sources) Contact with and (suspected) exposure to other viral communicable diseases; Translations: [Other specified abnormal immunological findings in serum] Onset: 10-08-2021 Resolved: 10-08-2021 Episodic Malaise and fatigue (20 sources) Asthenia; Translations: [Weakness] Onset: 06-22-2024 06-22-2024 Episodic Other connective tissue disease (20 sources) Muscle [...] 08-16-2023 08-16-2023 Episodic Other nervous system disorders (16 sources) Muscle fasciculation; Translations: [Fasciculation] Onset: 07-22-2024 [...] Onset: 08-16-2023 08-16-2023 Episodic Unclassified (1 source) Onset: 06-22-2024 06-22-2024 Unclassified (1 source) Osteoarthritis of joint of bilateral hands 06-12-2024 Results Test Name Value Interpretation Reference Range Facility ALL CBC WITH AUTO DIFFon BASOPHILS ABSOLUTE AUTO 0.1 [facility] Basophils/100 WBC (Bld) 0.4 % 0.2 - 2.0 % [facility] Eosinophils/100 WBC (Bld) 0.8 % Low 0.9 - 7.0 % [facility] Erythrocyte distribution width (RBC) [Ratio] 14.7 % 11.0 - 15.0 % [facility] Hematocrit (Bld) [Volume fraction] 48.7 % 42.0 - 54.0 % [facility] Hemoglobin (Bld) [Mass/Vol] 16 g/dL 14.0 - 18.0 g/dL [facility] IMMATURE GRANULOCYTES ABS AUTO 0.52 High [facility] Immature granulocytes/100 WBC (Bld) 2.3 % High 0.0 - 0.5 % [facility] Interpretation and review of laboratory results Abnormal [facility] LYMPHOCYTES ABSOLUTE AUTO 3.1 [facility] Lymphocytes/100 WBC (Bld) 13.9 % Low 20.5 - 60.0 % [facility] MCH (RBC) [Entitic mass] 30.5 pg 25.9 - 34.0 pg [facility] MCHC (RBC) [Mass/Vol] 32.9 g/dL 29.9 - 35.2 g/dL [facility] MCV (RBC) [Entitic vol] 92.8 fL 80.0 - 94.0 fL [facility] MONOCYTES ABSOLUTE AUTO 1.2 High [facility] Monocytes/100 WBC (Bld) 5.6 % 1.7 - 12.0 % [facility] NEUTROPHILS ABSOLUTE AUTO 17.1 High [facility] Neutrophils/100 WBC (Bld) 77 % High 43.0 - 75.0 % [facility] Platelet mean volume (Bld) [Entitic vol] 9.7 fL 9.5 - 13.5 fL [facility] TBH EO # 0.2 [facility] TBH PLT 273 [facility] RBC 5.25 [facility] WBC 22.3 High [facility] HbA1c (Bld) [Mass fraction]o n 10-07-2024 Interpretation and review of laboratory results Abnormal [facility] - Hematology and Cell countson 10-07-2024 HbA1c (Bld) [Mass fraction] 6.60 % [facility] 36on 09-03-2024 36 Spoke with patient a nd scheduled for 11/19 at 1:30 pm [facility] 36on 09-02-2024 36 Tried to reach patie nt to schedule. No voicemail available, unable to leave message. Will try again . [facility] 36on 08-15-2024 36 Please call to ivonne allred a follow up visit with Dr. Blanchard and Dr Broussard in 2-3 months. Was seen at 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 Please note patient's address are same in [facility] as [facility], but patient told me he has recently had housing insecurity and had to leave his prior dwelling just before recent admission. Mobile number of [phone] in is [employer] chart as it is here, [facility]. Note address is also the same, but last 4 digits of social differ. Thank you! [facility] CBC AND AUTO DIFFon 08-15-20 24 ABSOLUTE BASOPHIL 0.0 X10E9/L Normal 0.0-0.2 [facility] Comment on above: Performed By: #### C POOL, 63142-3, [facility], 1987-12, 5-9, 4498-2, ENAP #### [facility] ([id number]) [address] [place] [address] ABSOLUTE NEUTROPHIL 8.9 X10E9/L High 1.5-6.[address] [facility] Comment on above: Performed By: #### C POOL, 63683-7, [facility], 1987-12, 5-9, 4498-2, ENAP #### [facility] ([id number]) [address] [place] [address] Basophils/100 WBC (Bld) 0.2 % Normal [facility] Comment on above: Performed By: #### C POOL, 02930-9, CMP, 1987-12, 4485-04, 4497-2, ENAP #### [facility] ([id number]) [address], [address] [place] [address] Eosinophils (Bld) [#/Vol] 0.1 10*3/uL Normal 0.0-0.[address] [facility] Comment on above: Performed By: #### C BCA, 04519-4, CMP, 1987-12, 4485-04, 4497-2, ENAP #### [facility] ([id number]) [address], [facility] [address] [place] [address] Eosinophils/100 WBC (Bld) 0.5 % Normal [facility] Comment on above: Performed By: #### C POOL, 49057-4, CMP, 1987-12, 4485-04, 4497-2, ENAP #### [facility] ([id number]) [address], [address] [address] Erythrocyte distribution width (RBC) [Ratio] 12.9 % Normal 11.5-15.[address] [facility] Comment on above: Performed By: #### C POOL, 85829-3, CMP, 1987-12, 4485-04, 2, ENAP #### [facility] ([id number]) [address], [facility] [address] [place] [address] Hematocrit (Bld) [Volume fraction] 44.6 % Normal 39-[address] [facility] Comment on above: Performed By: #### C BCA, 49065-5, CMP, 1987-12, 4485-04, 2, ENAP #### [facility] ([id number]) [address], [facility] [address] [place] [address] Hemoglobin (Bld) [Mass/Vol] 15.1 g/dL Normal 13.0-17.[address] [facility] Comment on above: Performed By: #### C BCA, 19788-1, CMP, 1987-12, 4485-04, 4497-2, ENAP #### [facility] ([id number]) [address], [address] [place] [address] Lymphocytes (Bld) [#/Vol] 5.7 10*3/uL High 1.0-3.[address] [facility] Comment on above: Performed By: #### C BCA, 28934-6, CMP, 1987-12, 4485-04, 4497-2, ENAP #### [facility] ([id number]) [address], [address] [place] [address] Lymphocytes/100 WBC (Bld) 36.2 % Normal [facility] Comment on above: Performed By: #### C BCA, 12100-8, CMP, 1987-12, 4485-04, 449-2, ENAP #### [facility] ([id number]) [address], [address] [place] [address] MCH (RBC) [Entitic mass] 30.0 pg Normal 27-[address] [facility] Comment on above: Performed By: #### C BCA, 39476-9, CMP, 1987-12, 4485-04, 2, ENAP #### [facility] ([id number]) [address], [facility] [address] [place] [address] MCHC (RBC) [Mass/Vol] 34.0 g/dL Normal 32-36 [facility] Comment on above: Performed By: #### C BCA, 90567-8, CMP, 1987-12, 4485-04, 449-2, ENAP #### [facility] ([id number]) [address], [address] [place] [address] MCV (RBC) [Entitic vol] 88 fL Normal 80-[address] [facility] Comment on above: Performed By: #### C BCA, 33043-9, CMP, 1987-12, 4485-04, 4498-2, ENAP #### [facility] ([id number]) [address], [address] [place] [address] Monocytes (Bld) [#/Vol] 1.1 10*3/uL High 0-0.[address] [facility] Comment on above: Performed By: #### C POOL, 89112-8, CMP, 1987-12, 4485-04, 4498-2, ENAP #### [facility] ([id number]) [address], [address] [place] [address] Monocytes/100 WBC (Bld) 6.7 % Normal [facility] Comment on above: Performed By: #### C POOL, 04408-7, CMP, 1987-12, 4485-04, 4498-2, ENAP #### [facility] ([id number]) [address], [address] [place] [address] Neutrophils/100 WBC (Bld) 56.4 % Normal [facility] Comment on above: Performed By: #### C POOL, 19267-5, CMP, 1987-12, 4485-04, 4498-2, ENAP #### [facility] ([id number]) [address], [address] [place] [address] Platelet mean volume (Bld) [Entitic vol] 8.0 fL Normal 7-[address] [facility] Comment on above: Performed By: #### C BCA, 56841-3, CMP, 1987-12, 4485-04, 449-2, ENAP #### [facility] ([id number]) [address], [address] [place] [address] Platelets (Bld) [#/Vol] 270 10*3/uL Normal 150-[address] [facility] Comment on above: Performed By: #### C POOL, 39727-2, CMP, 1987-12, 4485-04, 4498-2, ENAP #### [facility] ([id number]) [address], [address] [place] [address] RBC COUNT 5.05 X10E12/L Normal 4.10-5.[address] [facility] Comment on above: Performed By: #### C BCA, 30764-9, CMP, 1987-12, 4484-9, 4498-2, ENAP #### [facility] ([id number]) [address], [address] [place] [address] WBC (Bld) [#/Vol] 15.7 10*3/uL High 4.0-11.0 [facility] Comment on above: Performed By: #### C BCA, 60812-0, CMP, 1987-12, 4484-, 4498-2, ENAP #### [facility] ([id number]) [address] [place] [address] [facility] 08-15-2024 Albumin [Mass/Vol] 3.6 g/dL Normal 3.2-5.3 [facility] Comment on above: Performed By: #### C BCA, 14235-2, CMP, 1987-12, 4485-04, 4498-2, ENAP #### [facility] ([id number]) [address], [address] [place] [address] ALP [Catalytic activity/Vol] 56 U/L Normal 39-[address] [facility] Comment on above: Performed By: #### C BCA, 23900-4, CMP, 1987-12, 4485-04, 4498-2, ENAP #### [facility] ([id number]) [address], [address] [place] [address] ALT [Catalytic activity/Vol] 19 U/L Normal 0-[address] [facility] Comment on above: Performed By: #### C BCA, 98073-7, CMP, 1987-12, 9, 4498-2, ENAP #### [facility] ([id number]) [address], [address] [place] [address] Anion gap [Moles/Vol] 9 mmol/L Normal 5-15 [facility] Comment on above: Performed By: #### C BCA, 22812-1, CMP, 1987-12, 4485-04, 4498-2, ENAP #### [facility] ([id number]) [address], [address] [place] [address] AST [Catalytic activity/Vol] 14 U/L Normal 0-[address] [facility] Comment on above: Performed By: #### C BCA, 84760-5, CMP, 1987-12, 4485-04, 4498-2, ENAP #### [facility] ([id number]) [address], [address] [place] [address] Bilirubin [Mass/Vol] 0.8 mg/dL Normal 0.3-1.[address] [facility] Comment on above: Performed By: #### C BCA, 27578-4, CMP, 1987-12, 4485-04, 4498-2, ENAP #### [facility] ([id number]) [address], [address] [place] [address] Calcium [Mass/Vol] 9.2 mg/dL Normal 8.5-10.5 [facility] Comment on above: Performed By: #### C BCA, 27942-9, CMP, 1987-12, 4485-04, 4498-2, ENAP #### [facility] ([id number]) [address] [place] [address] Chloride [Moles/Vol] 100 mmol/L Normal 98-[address] [facility] Comment on above: Performed By: #### C BCA, 57359-5, CMP, 1987-12, 4485-04, 4498-2, ENAP #### [facility] ([id number]) [address], [address] [place] [address] CO2 [Moles/Vol] 27 mmol/L Normal 22-[address] [facility] Comment on above: Performed By: #### C BCA, 94844-7, CMP, 1987-12, 4485-04, 4498-2, ENAP #### [facility] ([id number]) [address], [address] [place] [address] Creatinine [Mass/Vol] 0.59 mg/dL Low 0.60-1.30 [facility] Comment on above: Result Comment: METH OD TRACEABLE TO IDMS STANDARD Performed By: #### C BCA, 71250-7, CMP, 1987-12, 4485-04, 449-2, ENAP #### [facility] ([id number]) [address], [address] [place] [address] eGFR (CKD-EPI) NON-RACE DEPENDENT >90 Normal >[address] [facility] Comment on above: Result Comment: Reported eGFR is based on the CKD-EPI 2020 equation that does not use a race coefficient. Performed By: #### C BCA, 54766-0, CMP, 1987-12, 4485-04, 449-2, ENAP #### [facility] ([id number]) [address], [address] [place] [address] Glucose [Mass/Vol] 111 mg/dL High 65-99 [facility] Comment on above: Performed By: #### C BCA, 46572-4, CMP, 1987-12, 4485-04, 4498-2, ENAP #### [facility] ([id number]) [address], [address] [place] [address] Potassium [Moles/Vol] 3.8 mmol/L Normal 3.5-5.0 [facility] Comment on above: Performed By: #### C BCA, 70469-7, CMP, 1987-12, 4485-04, 4498-2, ENAP #### [facility] ([id number]) [address], [facility] [address] [place] [address] Protein [Mass/Vol] 8.2 g/dL High 6.0-8.0 [facility] Comment on above: Performed By: #### C BCA, 57709-5, CMP, 1987-12, 9, 4498-2, ENAP #### [facility] ([id number]) [address], [address] [address] Sodium [Moles/Vol] 136 mmol/L Normal 134-146 [facility] Comment on above: Performed By: #### C BCA, 83271-0, CMP, 1987-12, 4485-04, 4498-2, ENAP #### [facility] ([id number]) [address] [address] Urea nitrogen [Mass/Vol] 16 mg/dL Normal 5-[address] [facility] Comment on above: Performed By: #### C BCA, 79261-7, CMP, 1987-12, 4485-04, 4498-2, ENAP #### [facility] ([id number]) [address] [address] Glucose Glucometer (BldC) [M ass/Vol]on 08-15-2024 Glucose [Mass/Vol] 293 mg/dL High 65-99 [facility] Glucose [Mass/Vol] 129 mg/dL High 65-99 [facility] Glucose [Mass/Vol] 72 mg/dL Normal 65-99 [facility] comment Bj (Repo rt)on 08-15-2024 SARS-CoV-2 (COVID-19) RNA BLAYNE+probe Ql (Unsp spec) [facility] Report to Follow. Normal [facility] Comment on above: Performed By: #### C BCA, 84968-2, CMP, 1987-12, 4485-04, 4498-2, ENAP #### [facility] ([id number]) [address] [place] [address] SARS CoV2 by NAAT/Molecularo n 08-15-2024 SARS-CoV-2 [...] operators who are performing tests using either [employer] or [employer] systems and is limited to laboratories that [...] disease. Fact Sheet for Healthcare Providers: https://www.fda.gov/media/ 974064/download Fact Sheet for Patients: https://www.fda.gov/media/ 132840/download Normal [facility] Comment on above: Performed By: #### C POOL, 84042-4, CMP, 1987-12, 4485-04, 449-2, ENAP #### [facility] ([id number]) [address], [address] [place] [address] Telephoneon 08-15-2024 Telephone [phone] Eloy Umana ald 1975 M Date Provider Department Center 08/15/2024 [facility]-SANJANA BLANCHARD, [facility] No family history on file Normal [facility] CBC AND AUTO DIFFon 08-14-20 ABSOLUTE BASOPHIL 0.1 X10E9/L Normal 0.0-0.2 [facility] Comment on above: Performed By: #### Luke LANZA, 58532-8, CMP, 1987-12, 4485-04, 449-2, ENAP #### [facility] ([id number]) [address], [address] [place] [address] ABSOLUTE NEUTROPHIL 5.8 X10E9/L Normal 1.5-6.[address] [facility] Comment on above: Performed By: #### Luke LANZA, 51216-1, CMP, 1987-12, 4485-04, 449-2, ENAP #### [facility] ([id number]) [address], [address] [place] [address] Basophils/100 WBC (Bld) 0.6 % Normal [facility] Comment on above: Performed By: #### Luke LANZA, 12443-3, CMP, 1987-12, 4485-04, 449-2, ENAP #### [facility] ([id number]) [address], [address] [place] [address] Eosinophils (Bld) [#/Vol] 0.1 10*3/uL Normal 0.0-0.[address] [facility] Comment on above: Performed By: #### Luke LANZA, 80685-7, CMP, 1987-12, 4485-04, 4497-2, ENAP #### [facility] ([id number]) [address], [facility] [address] [place] [address] Eosinophils/100 WBC (Bld) 0.9 % Normal [facility] Comment on above: Performed By: #### C BCA, 56987-1, CMP, 1987-12, 4485-04, 4497-2, ENAP #### [facility] ([id number]) [address] [address] Erythrocyte distribution width (RBC) [Ratio] 13.3 % Normal 11.5-15.[address] [facility] Comment on above: Performed By: #### C POOL, 69026-0, CMP, 1987-12, 4485-04, 449-2, ENAP #### [facility] ([id number]) [address] [address] Hematocrit (Bld) [Volume fraction] 43.2 % Normal 39-[address] [facility] Comment on above: Performed By: #### C POOL, 93060-8, CMP, 1987-12, 4485-04, 4497-2, ENAP #### [facility] ([id number]) [address] [address] Hemoglobin (Bld) [Mass/Vol] 14.6 g/dL Normal 13.0-17.[address] [facility] Comment on above: Performed By: #### C BCA, 85878-7, CMP, 1987-12, 4485-04, 4497-2, ENAP #### [facility] ([id number]) [address] [address] Lymphocytes (Bld) [#/Vol] 4.6 10*3/uL High 1.0-3.[address] [facility] Comment on above: Performed By: #### C BCA, 73799-2, CMP, 1987-12, 4485-04, 4497-2, ENAP #### [facility] ([id number]) [address], [address] [place] [address] Lymphocytes/100 WBC (Bld) 40.3 % Normal [facility] Comment on above: Performed By: #### C BCA, 05987-0, CMP, 1987-12, 4485-04, 4497-2, ENAP #### [facility] ([id number]) [address], [address] [place] [address] MCH (RBC) [Entitic mass] 29.9 pg Normal 27-[address] [facility] Comment on above: Performed By: #### C BCA, 24644-4, CMP, 1987-12, 4485-04, 4497-2, ENAP #### [facility] ([id number]) [address], [address] [place] [address] MCHC (RBC) [Mass/Vol] 33.7 g/dL Normal 32-36 [facility] Comment on above: Performed By: #### C BCA, 98567-8, CMP, 1987-12, 4485-04, 2, ENAP #### [facility] ([id number]) [address], [address] [place] [address] MCV (RBC) [Entitic vol] 89 fL Normal 80-[address] [facility] Comment on above: Performed By: #### C BCA, 50104-3, CMP, 1987-12, 4485-04, 4497-2, ENAP #### [facility] ([id number]) [address] [address] [place] [address] Monocytes (Bld) [#/Vol] 0.9 10*3/uL Normal 0-0.[address] [facility] Comment on above: Performed By: #### C BCA, 30059-1, CMP, 1987-12, 4485-04, 4497-2, ENAP #### [facility] ([id number]) [address], [facility] [address] [place] [address] Monocytes/100 WBC (Bld) 7.8 % Normal [facility] Comment on above: Performed By: #### C BCA, 14559-8, CMP, 1987-12, 4485-04, 4498-2, ENAP #### [facility] ([id number]) [address], [facility] [address] [place] [address] Neutrophils/100 WBC (Bld) 50.4 % Normal [facility] Comment on above: Performed By: #### C POOL, 99504-2, CMP, 1987-12, 4485-04, 4498-2, ENAP #### [facility] ([id number]) [address], [facility] [address] [place] [address] Platelet mean volume (Bld) [Entitic vol] 7.9 fL Normal 7-[address] [facility] Comment on above: Performed By: #### C BCA, 83485-4, CMP, 1987-12, 4485-04, 4498-2, ENAP #### [facility] ([id number]) [address] [address] Platelets (Bld) [#/Vol] 259 10*3/uL Normal 150-[address] [facility] Comment on above: Performed By: #### C BCA, 33221-2, CMP, 1987-12, 4485-04, 4498-2, ENAP #### [facility] ([id number]) [address], [facility] [address] [place] [address] RBC COUNT 4.86 X10E12/L Normal 4.10-5.[address] [facility] Comment on above: Performed By: #### C BCA, 48360-6, CMP, 1987-12, 4485-04, 4498-2, ENAP #### [facility] ([id number]) [address] [place] [address] WBC (Bld) [#/Vol] 11.5 10*3/uL High 4.0-11.0 [facility] Comment on above: Performed By: #### C BCA, 18335-8, CMP, 1987-12, 4484-9, 4498-2, ENAP #### [facility] ([id number]) [address] [place] [address] COMPREHENSIVE METABOLIC PANE Rayshawn 08-14-2024 Albumin [Mass/Vol] 3.6 g/dL Normal 3.2-5.3 [facility] Comment on above: Performed By: #### C BCA, 60347-4, CMP, 1987-12, 4484-, 4498-2, ENAP #### [facility] ([id number]) [address] [place] [address] ALP [Catalytic activity/Vol] 52 U/L Normal 39-[address] [facility] Comment on above: Performed By: #### C BCA, 56542-8, CMP, 1987-12, 9, 4498-2, ENAP #### [facility] ([id number]) [address] [place] [address] ALT [Catalytic activity/Vol] 20 U/L Normal 0-[address] [facility] Comment on above: Performed By: #### C BCA, 40183-3, CMP, 1987-12, 9, 4498-2, ENAP #### [facility] ([id number]) [address] [place] [address] Anion gap [Moles/Vol] 8 mmol/L Normal 5-15 [facility] Comment on above: Performed By: #### C BCA, 54185-4, CMP, 1987-12, 9, 4498-2, ENAP #### [facility] ([id number]) [address] [place] [address] AST [Catalytic activity/Vol] 16 U/L Normal 0-[address] [facility] Comment on above: Performed By: #### C BCA, 11891-1, CMP, 1987-12, 4485-04, 4498-2, ENAP #### [facility] ([id number]) [address] [place] [address] Bilirubin [Mass/Vol] 0.7 mg/dL Normal 0.3-1.[address] [facility] Comment on above: Performed By: #### C BCA, 97862-2, CMP, 1987-12, 4485-04, 4498-2, ENAP #### [facility] ([id number]) [address] [place] [address] Calcium [Mass/Vol] 9.1 mg/dL Normal 8.5-10.5 [facility] Comment on above: Performed By: #### C BCA, 37663-4, CMP, 1987-12, 4485-04, 4498-2, ENAP #### [facility] ([id number]) [address] [place] [address] Chloride [Moles/Vol] 101 mmol/L Normal 98-[address] [facility] Comment on above: Performed By: #### C BCA, 01462-0, CMP, 1987-12, 4485-04, 449-2, ENAP #### [facility] ([id number]) [address], [address] [place] [address] CO2 [Moles/Vol] 30 mmol/L Normal 22-[address] [facility] Comment on above: Performed By: #### C BCA, 57779-4, CMP, 1987-12, 4485-04, 4498-2, ENAP #### [facility] ([id number]) [address], [address] [place] [address] Creatinine [Mass/Vol] 0.63 mg/dL Normal 0.60-1.30 [facility] Comment on above: Result Comment: METH OD TRACEABLE TO IDMS STANDARD Performed By: #### C BCA, 65442-2, CMP, 1987-12, 4485-04, 4498-2, ENAP #### [facility] ([id number]) [address], [address] [place] [address] eGFR (CKD-EPI) NON-RACE DEPENDENT >90 Normal >[address] [facility] Comment on above: Result Comment: Reported eGFR is based on the CKD-EPI 2020 equation that does not use a race coefficient. Performed By: #### C BCA, 43870-4, CMP, 1987-12, 4485-04, 4498-2, ENAP #### [facility] ([id number]) [address], [address] [place] [address] Glucose [Mass/Vol] 80 mg/dL Normal 65-99 [facility] Comment on above: Performed By: #### C BCA, 15371-7, CMP, 1987-12, 4485-04, 4498-2, ENAP #### [facility] ([id number]) [address], [address] [place] [address] Potassium [Moles/Vol] 4.0 mmol/L Normal 3.5-5.0 [facility] Comment on above: Performed By: #### C BCA, 67247-8, CMP, 1987-12, 4485-04, 4498-2, ENAP #### [facility] ([id number]) [address], [address] [place] [address] Protein [Mass/Vol] 7.6 g/dL Normal 6.0-8.0 [facility] Comment on above: Performed By: #### C BCA, 74732-3, CMP, 1987-12, 4485-04, 4498-2, ENAP #### [facility] ([id number]) [address], [address] [place] [address] Sodium [Moles/Vol] 139 mmol/L Normal 134-146 [facility] Comment on above: Performed By: #### C POOL, 61621-7, CMP, 1987-12, 4485-04, 449-2, ENAP #### [facility] ([id number]) [address], [address] [place] [address] Urea nitrogen [Mass/Vol] 17 mg/dL Normal 5-[address] [facility] Comment on above: Performed By: #### C POOL, 48300-8, CMP, 1987-12, 4485-04, 449-2, ENAP #### [facility] ([id number]) [address] [place] [address] Glucose Glucometer (BldC) [M ass/Vol]on 08-14-2024 Glucose [Mass/Vol] 184 mg/dL High 65-99 [facility] Glucose [Mass/Vol] 166 mg/dL High 65-99 [facility] Glucose [Mass/Vol] 112 mg/dL High 65-99 [facility] Glucose [Mass/Vol] 81 mg/dL Normal 65-99 [facility] CBC AND AUTO DIFFon 08-13-20 24 ABSOLUTE BASOPHIL 0.0 X10E9/L Normal 0.0-0.2 [facility] Comment on above: Performed By: #### C POOL, 68783-3, CMP, 1987-12, 4485-04, 4492, ENAP #### [facility] ([id number]) [address], [address] [place] [address] ABSOLUTE NEUTROPHIL 7.7 X10E9/L High 1.5-6.[address] [facility] Comment on above: Performed By: #### C POOL, 45946-1, CMP, 1987-12, 4485-04, 4498-2, ENAP #### [facility] ([id number]) [address], [address] [place] [address] Basophils/100 WBC (Bld) 0.3 % Normal [facility] Comment on above: Performed By: #### C POOL, 56100-0, CMP, 1987-12, 4485-04, 4497-2, ENAP #### [facility] ([id number]) [address], [address] [place] [address] Eosinophils (Bld) [#/Vol] 0.1 10*3/uL Normal 0.0-0.[address] [facility] Comment on above: Performed By: #### C POOL, 90810-2, CMP, 1987-12, 4485-04, 2, ENAP #### [facility] ([id number]) [address] [place] [address] Eosinophils/100 WBC (Bld) 0.5 % Normal [facility] Comment on above: Performed By: #### C POOL, 07416-9, CMP, 1987-12, 4485-04, 449-2, ENAP #### [facility] ([id number]) [address], [facility] [address] [place] [address] Erythrocyte distribution width (RBC) [Ratio] 13.0 % Normal 11.5-15.[address] [facility] Comment on above: Performed By: #### C POOL, 42044-6, CMP, 1987-12, 4485-04, 2, ENAP #### [facility] ([id number]) [address] [place] [address] Hematocrit (Bld) [Volume fraction] 44.5 % Normal 39-[address] [facility] Comment on above: Performed By: #### C POOL, 45869-9, CMP, 1987-12, 4485-04, 4497-2, ENAP #### [facility] ([id number]) [address] [place] [address] Hemoglobin (Bld) [Mass/Vol] 14.9 g/dL Normal 13.0-17.[address] [facility] Comment on above: Performed By: #### C POOL, 90177-4, CMP, 1987-12, 4485-04, 4497-2, ENAP #### [facility] ([id number]) [address] [place] [address] Lymphocytes (Bld) [#/Vol] 3.4 10*3/uL Normal 1.0-3.[address] [facility] Comment on above: Performed By: #### C POOL, 29674-8, CMP, 1987-12, 4485-04, 4497-2, ENAP #### [facility] ([id number]) [address], [facility] [address] [place] [address] Lymphocytes/100 WBC (Bld) 28.1 % Normal [facility] Comment on above: Performed By: #### Luke LANZA, 85007-5, CMP, 1987-12, 4485-04, 449-2, ENAP #### [facility] ([id number]) [address], [address] [place] [address] MCH (RBC) [Entitic mass] 29.5 pg Normal 27-[address] [facility] Comment on above: Performed By: #### C POOL, 93258-8, CMP, 1987-12, 4485-04, 2, ENAP #### [facility] ([id number]) [address], [address] [place] [address] MCHC (RBC) [Mass/Vol] 33.5 g/dL Normal 32-36 [facility] Comment on above: Performed By: #### Luke LANZA, 30649-2, CMP, 1987-12, 4485-04, 2, ENAP #### [facility] ([id number]) [address], [address] [place] [address] MCV (RBC) [Entitic vol] 88 fL Normal 80-100 [facility] Comment on above: Performed By: #### C BCA, 60551-3, CMP, 1987-12, 4485-04, 4498-2, ENAP #### [facility] ([id number]) [address] [place] [address] Monocytes (Bld) [#/Vol] 1.0 10*3/uL High 0-0.[address] [facility] Comment on above: Performed By: #### C BCA, 07987-2, CMP, 1987-12, 4485-04, 4498-2, ENAP #### [facility] ([id number]) [address], [address] [place] [address] Monocytes/100 WBC (Bld) 8.3 % Normal [facility] Comment on above: Performed By: #### Luke LANZA, 18643-2, CMP, 1987-12, 4485-04, 4498-2, ENAP #### [facility] ([id number]) [address] [place] [address] Neutrophils/100 WBC (Bld) 62.8 % Normal [facility] Comment on above: Performed By: #### Luke LANZA, 39895-8, CMP, 1987-12, 4485-04, 4498-2, ENAP #### [facility] ([id number]) [address] [place] [address] Platelet mean volume (Bld) [Entitic vol] 8.2 fL Normal 7-[address] [facility] Comment on above: Performed By: #### C BCA, 16581-6, CMP, 1987-12, 4485-04, 4498-2, ENAP #### [facility] ([id number]) [address] [place] [address] Platelets (Bld) [#/Vol] 276 10*3/uL Normal 150-[address] [facility] Comment on above: Performed By: #### C BCA, 75366-8, CMP, 1987-12, 4484-9, 4498-2, ENAP #### [facility] ([id number]) [address] [place] [address] RBC COUNT 5.06 X10E12/L Normal 4.10-5.[address] [facility] Comment on above: Performed By: #### C BCA, 72500-1, CMP, 1987-12, 4484-, 4498-2, ENAP #### [facility] ([id number]) [address], [address] [place] [address] WBC (Bld) [#/Vol] 12.3 10*3/uL High 4.0-11.0 [facility] Comment on above: Performed By: #### C BCA, 81382-9, CMP, 1987-12, 4485-04, 4498-2, ENAP #### [facility] ([id number]) [address] [place] [address] [facility] 08-13-2024 Albumin [Mass/Vol] 3.7 g/dL Normal 3.2-5.3 [facility] Comment on above: Performed By: #### C BCA, 30670-2, CMP, 1987-12, 4485-04, 4498-2, ENAP #### [facility] ([id number]) [address], [address] [place] [address] ALP [Catalytic activity/Vol] 54 U/L Normal 39-[address] [facility] Comment on above: Performed By: #### C BCA, 10654-2, CMP, 1987-12, 4485-04, 4498-2, ENAP #### [facility] ([id number]) [address] [place] [address] ALT [Catalytic activity/Vol] 21 U/L Normal 0-[address] [facility] Comment on above: Performed By: #### C BCA, 34154-2, CMP, 1987-12, 9, 4498-2, ENAP #### [facility] ([id number]) [address] [place] [address] Anion gap [Moles/Vol] 7 mmol/L Normal 5-15 [facility] Comment on above: Performed By: #### C BCA, 49475-4, CMP, 1987-12, 4485-04, 4498-2, ENAP #### [facility] ([id number]) [address] [place] [address] AST [Catalytic activity/Vol] 15 U/L Normal 0-[address] [facility] Comment on above: Performed By: #### C BCA, 79157-9, CMP, 1987-12, 4485-04, 449-2, ENAP #### [facility] ([id number]) [address] [place] [address] Bilirubin [Mass/Vol] 0.7 mg/dL Normal 0.3-1.[address] [facility] Comment on above: Performed By: #### C BCA, 57707-8, CMP, 1987-12, 4485-04, 4498-2, ENAP #### [facility] ([id number]) [address], [address] [place] [address] Calcium [Mass/Vol] 9.1 mg/dL Normal 8.5-10.5 [facility] Comment on above: Performed By: #### C BCA, 04581-3, CMP, 1987-12, 4485-04, 4498-2, ENAP #### [facility] ([id number]) [address] [place] [address] Chloride [Moles/Vol] 102 mmol/L Normal 98-[address] [facility] Comment on above: Performed By: #### C BCA, 18807-3, CMP, 1987-12, 4485-04, 4498-2, ENAP #### [facility] ([id number]) [address] [place] [address] CO2 [Moles/Vol] 30 mmol/L Normal 22-[address] [facility] Comment on above: Performed By: #### C BCA, 55943-1, CMP, 1987-12, 4485-04, 449-2, ENAP #### [facility] ([id number]) [address] [place] [address] Creatinine [Mass/Vol] 0.61 mg/dL Normal 0.60-1.30 [facility] Comment on above: Result Comment: METH OD TRACEABLE TO IDMS STANDARD Performed By: #### C BCA, 98650-3, [facility], 1987-12, 4485-04, 449-2, ENAP #### [facility] ([id number]) [address] [place] [address] eGFR (CKD-EPI) NON-RACE DEPENDENT >90 Normal >[address] [facility] Comment on above: Result Comment: Reported eGFR is based on the CKD-EPI 2020 equation that does not use a race coefficient. Performed By: #### C BCA, 51653-3, [facility], 1987-12, 4485-04, 449-2, ENAP #### [facility] ([id number]) [address] [place] [address] Glucose [Mass/Vol] 113 mg/dL High 65-99 [facility] Comment on above: Performed By: #### C BCA, 77940-5, CMP, 1987-12, 4485-04, 4498-2, ENAP #### [facility] ([id number]) [address] [place] [address] Potassium [Moles/Vol] 4.3 mmol/L Normal 3.5-5.0 [facility] Comment on above: Performed By: #### C BCA, 42529-8, CMP, 1987-12, 9, 4498-2, ENAP #### [facility] ([id number]) [address] [place] [address] Protein [Mass/Vol] 7.4 g/dL Normal 6.0-8.0 [facility] Comment on above: Performed By: #### C BCA, 91675-3, CMP, 1987-12, 9, 4498-2, ENAP #### [facility] ([id number]) [address] [place] [address] Sodium [Moles/Vol] 139 mmol/L Normal 134-146 [facility] Comment on above: Performed By: #### C BCA, 38382-8, CMP, 1987-12, 4485-04, 4498-2, ENAP #### [facility] ([id number]) [address] [place] [address] Urea nitrogen [Mass/Vol] 15 mg/dL Normal 5-[address] [facility] Comment on above: Performed By: #### C BCA, 15187-5, CMP, 1987-12, 4485-04, 4498-2, ENAP #### [facility] ([id number]) [address] [place] [address] Glucose Glucometer (dC) [M ass/Vol]on 08-13-2024 Glucose [Mass/Vol] 183 mg/dL High 65-99 [facility] Glucose [Mass/Vol] 246 mg/dL High 65-99 [facility] Glucose [Mass/Vol] 189 mg/dL High 65-99 [facility] Glucose [Mass/Vol] 103 mg/dL High 65-99 [facility] Aldolase [Catalytic activity /Vol]on 08-12-2024 ALDOLASE 4.6 U/L Normal 1.2-7.[address] [facility] Comment on above: Result Comment: NOTE REFERENCE INTERVAL: Aldolase Access complete set of age- and/or gender-specific reference intervals for this test in the [facility] Test [facility] ([facility]). Performed By: [employer] [address] [place] [address] [place]: Leonardo Topete MD, PhD CLIA Number: [id number] CBC AND AUTO DIFFon 08-12-20 24 ABSOLUTE BASOPHIL 0.0 X10E9/L Normal 0.0-0.2 [facility] Comment on above: Performed By: #### C BCA, 84373-9, CMP, 1987-12, 4485-04, 2, ENAP #### [facility] ([id number]) [address] [place] [address] ABSOLUTE NEUTROPHIL 6.6 X10E9/L Normal 1.5-6.[address] [facility] Comment on above: Performed By: #### Luke LANZA, 89042-7, [facility], 1987-12, 4485-04, 2, ENAP #### [facility] ([id number]) [address] [place] [address] Basophils/100 WBC (Bld) 0.1 % Normal [facility] Comment on above: Performed By: #### C POOL, 27152-6, CMP, 1987-12, 4485-04, 2, ENAP #### [facility] ([id number]) [address] [place] [address] Eosinophils (Bld) [#/Vol] 0.0 10*3/uL Normal 0.0-0.[address] [facility] Comment on above: Performed By: #### C POOL, 21324-0, CMP, 1987-12, 4485-04, 2, ENAP #### [facility] ([id number]) [address] [place] [address] Eosinophils/100 WBC (Bld) 0.0 % Normal [facility] Comment on above: Performed By: #### C BCA, 57517-8, CMP, 1987-12, 4485-04, 4498-2, ENAP #### [facility] ([id number]) [address] [place] [address] Erythrocyte distribution width (RBC) [Ratio] 13.2 % Normal 11.5-15.[address] [facility] Comment on above: Performed By: #### C BCA, 12193-6, CMP, 1987-12, 4485-04, 8-2, ENAP #### [facility] ([id number]) [address], [facility] [address] [place] [address] Hematocrit (Bld) [Volume fraction] 44.9 % Normal 39-[address] [facility] Comment on above: Performed By: #### C POOL, 74694-2, CMP, 1987-12, 4485-04, 449-2, ENAP #### [facility] ([id number]) [address] [place] [address] Hemoglobin (Bld) [Mass/Vol] 15.2 g/dL Normal 13.0-17.[address] [facility] Comment on above: Performed By: #### C BCA, 39679-1, CMP, 1987-12, 4485-04, 449-2, ENAP #### [facility] ([id number]) [address], [address] [address] Lymphocytes (Bld) [#/Vol] 1.2 10*3/uL Normal 1.0-3.[address] [facility] Comment on above: Performed By: #### C BCA, 40588-4, CMP, 1987-12, 4485-04, 449-2, ENAP #### [facility] ([id number]) [address], [facility] [address] [place] [address] Lymphocytes/100 WBC (Bld) 15.3 % Normal [facility] Comment on above: Performed By: #### C BCA, 99581-6, CMP, 1987-12, 4485-04, 4497-2, ENAP #### [facility] ([id number]) [address] [place] [address] MCH (RBC) [Entitic mass] 29.9 pg Normal 27-[address] [facility] Comment on above: Performed By: #### C BCA, 63983-5, CMP, 1987-12, 4485-04, 449-2, ENAP #### [facility] ([id number]) [address] [place] [address] MCHC (RBC) [Mass/Vol] 33.8 g/dL Normal 32-36 [facility] Comment on above: Performed By: #### C POOL, 06561-5, CMP, 1987-12, 4485-04, 2, ENAP #### [facility] ([id number]) [address] [place] [address] MCV (RBC) [Entitic vol] 88 fL Normal 80-[address] [facility] Comment on above: Performed By: #### C POOL, 77163-8, CMP, 1987-12, 4485-04, 449-2, ENAP #### [facility] ([id number]) [address] [place] [address] Monocytes (Bld) [#/Vol] 0.3 10*3/uL Normal 0-0.[address] [facility] Comment on above: Performed By: #### C BCA, 45197-8, CMP, 1987-12, 4485-04, 449-2, ENAP #### [facility] ([id number]) [address] [place] [address] Monocytes/100 WBC (Bld) 3.2 % Normal [facility] Comment on above: Performed By: #### C BCA, 03740-8, CMP, 1987-12, 4485-04, 4498-2, ENAP #### [facility] ([id number]) [address], [facility] [address] [place] [address] Neutrophils/100 WBC (Bld) 81.4 % Normal [facility] Comment on above: Performed By: #### C BCA, 91701-5, CMP, 1987-12, 4485-04, 4498-2, ENAP #### [facility] ([id number]) [address], [facility] [address] [place] [address] Platelet mean volume (Bld) [Entitic vol] 7.7 fL Normal 7-[address] [facility] Comment on above: Performed By: #### Luke LANZA, 18380-9, CMP, 1987-12, 4485-04, 4498-2, ENAP #### [facility] ([id number]) [address], [facility] [address] [place] [address] Platelets (Bld) [#/Vol] 289 10*3/uL Normal 150-[address] [facility] Comment on above: Performed By: #### C POOL, 17822-0, CMP, 1987-12, 4485-04, 4498-2, ENAP #### [facility] ([id number]) [address], [facility] [address] [place] [address] RBC COUNT 5.08 X10E12/L Normal 4.10-5.[address] [facility] Comment on above: Performed By: #### C BCA, 46230-1, CMP, 1987-12, 4485-04, 4498-2, ENAP #### [facility] ([id number]) [address], [facility] [address] [place] [address] WBC (Bld) [#/Vol] 8.1 10*3/uL Normal 4.0-11.0 [facility] Comment on above: Performed By: #### Luke BCA, 67858-4, CMP, 1987-12, 4484-9, 4498-2, ENAP #### [facility] ([id number]) [address] [place] [address] COMPREHENSIVE METABOLIC PANE [place] 08-12-2024 Albumin [Mass/Vol] 4.1 g/dL Normal 3.2-5.3 [facility] Comment on above: Performed By: #### C BCA, 17939-4, CMP, 1987-12, 4485-04, 4498-2, ENAP #### [facility] ([id number]) [address] [place] [address] ALP [Catalytic activity/Vol] 60 U/L Normal 39-[address] [facility] Comment on above: Performed By: #### C BCA, 60416-4, CMP, 1987-12, 4485-04, 4498-2, ENAP #### [facility] ([id number]) [address] [place] [address] ALT [Catalytic activity/Vol] 14 U/L Normal 0-[address] [facility] Comment on above: Performed By: #### C BCA, 98848-8, CMP, 1987-12, 4485-04, 4498-2, ENAP #### [facility] ([id number]) [address], [address] [place] [address] Anion gap [Moles/Vol] 9 mmol/L Normal 5-15 [facility] Comment on above: Performed By: #### C BCA, 81660-9, CMP, 1987-12, 9, 4498-2, ENAP #### [facility] ([id number]) [address], [address] [place] [address] AST [Catalytic activity/Vol] 14 U/L Normal 0-[address] [facility] Comment on above: Performed By: #### C BCA, 40988-0, CMP, 1987-12, 4485-04, 4498-2, ENAP #### [facility] ([id number]) [address], [address] [place] [address] Bilirubin [Mass/Vol] 0.6 mg/dL Normal 0.3-1.[address] [facility] Comment on above: Performed By: #### C BCA, 90726-5, CMP, 1987-12, 4485-04, 4497-2, ENAP #### [facility] ([id number]) [address] [place] [address] Calcium [Mass/Vol] 9.2 mg/dL Normal 8.5-10.5 [facility] Comment on above: Performed By: #### C BCA, 61990-2, CMP, 1987-12, 4485-04, 449-2, ENAP #### [facility] ([id number]) [address] [place] [address] Chloride [Moles/Vol] 102 mmol/L Normal 98-[address] [facility] Comment on above: Performed By: #### C BCA, 68050-2, CMP, 1987-12, 4485-04, 2, ENAP #### [facility] ([id number]) [address] [place] [address] CO2 [Moles/Vol] 25 mmol/L Normal 22-[address] [facility] Comment on above: Performed By: #### C BCA, 63631-9, CMP, 1987-12, 4485-04, 449-2, ENAP #### [facility] ([id number]) [address] [place] [address] Creatinine [Mass/Vol] 0.56 mg/dL Low 0.60-1.30 [facility] Comment on above: Result Comment: METH OD TRACEABLE TO IDMS STANDARD Performed By: #### C BCA, 19102-8, CMP, 1987-12, 4485-04, 4497-2, ENAP #### [facility] ([id number]) [address] [place] [address] eGFR (CKD-EPI) NON-RACE DEPENDENT >90 Normal >[address] [facility] Comment on above: Result Comment: Reported eGFR is based on the CKD-EPI 2020 equation that does not use a race coefficient. Performed By: #### C BCA, 98901-6, CMP, 1987-12, 4485-04, 449-2, ENAP #### [facility] ([id number]) [address] [place] [address] Glucose [Mass/Vol] 175 mg/dL High 65-99 [facility] Comment on above: Performed By: #### C BCA, 26083-1, CMP, 1987-12, 4485-04, 4498-2, ENAP #### [facility] ([id number]) [address] [place] [address] Potassium [Moles/Vol] 4.6 mmol/L Normal 3.5-5.0 [facility] [facility] Comment on above: Performed By: #### C BCA, 01056-3, CMP, 1987-12, 4485-04, 449-2, ENAP #### [facility] ([id number]) [address] [place] [address] Protein [Mass/Vol] 7.6 g/dL Normal 6.0-8.0 [facility] Comment on above: Performed By: #### C BCA, 08777-6, CMP, 1987-12, 4485-04, 4498-2, ENAP #### [facility] ([id number]) [address] [place] [address] Sodium [Moles/Vol] 136 mmol/L Normal 134-146 [facility] Comment on above: Performed By: #### C BCA, 95972-2, CMP, 1987-12, 4485-04, 4497-2, ENAP #### [facility] ([id number]) [address], [address] [place] [address] Urea nitrogen [Mass/Vol] 18 mg/dL Normal 5-[address] [facility] Comment on above: Performed By: #### C BCA, 29100-1, CMP, 1988-5, 4485-9, 4498-2, ENAP #### [facility] ([id number]) [address], [address] [place] [address] Glucose Glucometer (BldC) [M ass/Vol]on 08-12-2024 Glucose [Mass/Vol] 237 mg/dL High 65-99 [facility] Glucose [Mass/Vol] 171 mg/dL High 65-99 [facility] Glucose [Mass/Vol] 116 mg/dL High 65-99 [facility] Glucose [Mass/Vol] 117 mg/dL High 65-99 [facility] Heavy metals panel (Bld)on 10-13-2023 Arsenic, B <1 Normal <[address] [facility] Comment on above: Result Comment: NOTE ADDITIONAL INFORMATION This test was developed and its performance characteristics determined by [facility] in a manner consistent with CLIA requirements. This test has not been cleared or approved by the U.S. Food and Drug Administration. Cadmium, B <0.2 Normal <5.[address] [facility] Comment on above: Result Comment: NOTE ADDITIONAL INFORMATION This test was developed and its performance characteristics determined by [facility] in a manner consistent with CLIA requirements. This test has not been cleared or approved by the U.S. Food and Drug Administration. Lead, B <1.0 Normal <3.[address] [facility] Comment on above: Result Comment: NOTE ADDITIONAL INFORMATION Testing performed by Triple Quadrupole Inductively Coupled Plasma-Mass Spectrometry (ICP-MS/MS). This test was developed and its performance characteristics determined by [facility] in a manner consistent with CLIA requirements. This test has not been cleared or approved by the U.S. Food and Drug Administration. Mercury, B <1 Normal <[address] [facility] Comment on above: Result Comment: NOTE ADDITIONAL INFORMATION This test was developed and its performance characteristics determined by [facility] in a manner consistent with CLIA requirements. This test has not been cleared or approved by the U.S. Food and Drug Administration. Venous/Capillary Venous Normal [facility] CBC AND AUTO DIFFon 12-15-20 24 ABSOLUTE BASOPHIL 0.1 X10E9/L Normal 0.0-0.2 [facility] Comment on above: Performed By: #### C POOL, 99826-5, [facility], 1987-12, 4485-04, 2, ENAP #### [facility] ([id number]) [address] [place] [address] ABSOLUTE NEUTROPHIL 12.1 X10E9/L High 1.5-6.6 [facility] Comment on above: Performed By: #### C POOL, 65566-4, [facility], 1987-12, 4485-04, 4497-2, ENAP #### [facility] ([id number]) [address] [place] [address] Basophils/100 WBC (Bld) 0.3 % Normal [facility] Comment on above: Performed By: #### C POOL, 28604-1, [facility], 1987-12, 4485-04, 449-2, ENAP #### [facility] ([id number]) [address] [place] [address] Eosinophils (Bld) [#/Vol] 0.0 10*3/uL Normal 0.0-0.[address] [facility] Comment on above: Performed By: #### C POOL, 77188-5, CMP, 1987-12, 4485-04, 4497-2, ENAP #### [facility] ([id number]) [address], [facility] [address] [place] [address] Eosinophils/100 WBC (Bld) 0.1 % Normal [facility] Comment on above: Performed By: #### C POOL, 86250-9, CMP, 1987-12, 4485-04, 2, ENAP #### [facility] ([id number]) [address] [address] Erythrocyte distribution width (RBC) [Ratio] 13.1 % Normal 11.5-15.[address] [facility] Comment on above: Performed By: #### C POOL, 72385-1, [facility], 1987-12, 4485-04, 2, ENAP #### [facility] ([id number]) [address] [address] Hematocrit (Bld) [Volume fraction] 44.0 % Normal 39-[address] [facility] Comment on above: Performed By: #### C POOL, 24762-4, CMP, 1987-12, 4485-04, 2, ENAP #### [facility] ([id number]) [address] [address] Hemoglobin (Bld) [Mass/Vol] 14.6 g/dL Normal 13.0-17.[address] [facility] Comment on above: Performed By: #### C POOL, 95594-7, CMP, 1987-12, 4485-04, 4497-2, ENAP #### [facility] ([id number]) [address] [address] Lymphocytes (Bld) [#/Vol] 3.6 10*3/uL High 1.0-3.[address] [facility] Comment on above: Performed By: #### Luke LANZA, 51030-6, [facility], 1987-12, 4485-04, 4497-2, ENAP #### [facility] ([id number]) [address], [facility] [address] [place] [address] Lymphocytes/100 WBC (Bld) 20.8 % Normal [facility] Comment on above: Performed By: #### C POOL, 20693-8, [facility], 1987-12, 4485-04, 2, ENAP #### [facility] ([id number]) [address], [address] [address] MCH (RBC) [Entitic mass] 29.4 pg Normal 27-[address] [facility] Comment on above: Performed By: #### Luke LANZA, 31169-9, [facility], 1987-12, 4485-04, 4497-2, ENAP #### [facility] ([id number]) [address] [place] [address] MCHC (RBC) [Mass/Vol] 33.1 g/dL Normal 32-36 [facility] Comment on above: Performed By: #### Luke LANZA, 55568-6, [facility], 1987-12, 4485-04, 2, ENAP #### [facility] ([id number]) [address] [place] [address] MCV (RBC) [Entitic vol] 89 fL Normal 80-[address] [facility] Comment on above: Performed By: #### Luke LANZA, 87649-5, [facility], 1987-12, 4485-04, 2, ENAP #### [facility] ([id number]) [address] [facility] [address] [place] [address] Monocytes (Bld) [#/Vol] 1.5 10*3/uL High 0-0.[address] [facility] Comment on above: Performed By: #### C POOL, 74552-9, CMP, 1987-12, 4485-04, 4498-2, ENAP #### [facility] ([id number]) [address] [place] [address] Monocytes/100 WBC (Bld) 8.7 % Normal [facility] Comment on above: Performed By: #### C POOL, 26442-9, CMP, 1987-12, 4485-04, 4498-2, ENAP #### [facility] ([id number]) [address] [place] [address] Neutrophils/100 WBC (Bld) 70.1 % Normal [facility] Comment on above: Performed By: #### C POOL, 01883-2, CMP, 1987-12, 4485-04, 449-2, ENAP #### [facility] ([id number]) [address] [place] [address] Platelet mean volume (Bld) [Entitic vol] 7.7 fL Normal 7-[address] [facility] Comment on above: Performed By: #### C POOL, 09782-3, CMP, 1987-12, 4485-04, 4498-2, ENAP #### [facility] ([id number]) [address] [place] [address] Platelets (Bld) [#/Vol] 327 10*3/uL Normal 150-[address] [facility] Comment on above: Performed By: #### C POOL, 42968-4, CMP, 1987-12, 4485-04, 449-2, ENAP #### [facility] ([id number]) [address] [place] [address] RBC COUNT 4.96 X10E12/L Normal 4.10-5.[address] [facility] Comment on above: Performed By: #### C BCA, 69653-5, CMP, 1987-12, 4484-9, 4498-2, ENAP #### [facility] ([id number]) [address] [place] [address] WBC (Bld) [#/Vol] 17.3 10*3/uL High 4.0-11.0 [facility] Comment on above: Performed By: #### C BCA, 16672-6, CMP, 1987-12, 4485-04, 4498-2, ENAP #### [facility] ([id number]) [address] [place] [address] COMPREHENSIVE METABOLIC PANE Rayshawn 08-11-2024 Albumin [Mass/Vol] 4.2 g/dL Normal 3.2-5.3 [facility] Comment on above: Performed By: #### C BCA, 95260-0, CMP, 1987-12, 4485-04, 4498-2, ENAP #### [facility] ([id number]) [address] [place] [address] ALP [Catalytic activity/Vol] 64 U/L Normal 39-[address] [facility] Comment on above: Performed By: #### C BCA, 79464-2, CMP, 1987-12, 4485-04, 4498-2, ENAP #### [facility] ([id number]) [address] [place] [address] ALT [Catalytic activity/Vol] 14 U/L Normal 0-[address] [facility] Comment on above: Performed By: #### C BCA, 56361-9, CMP, 1987-12, 4485-04, 4498-2, ENAP #### [facility] ([id number]) [address] [place] [address] Anion gap [Moles/Vol] 9 mmol/L Normal 5-15 [facility] Comment on above: Performed By: #### C BCA, 78222-9, CMP, 1987-12, 4485-04, 4498-2, ENAP #### [facility] ([id number]) [address] [place] [address] AST [Catalytic activity/Vol] 10 U/L Normal 0-[address] [facility] Comment on above: Performed By: #### C BCA, 53044-8, CMP, 1987-12, 4485-04, 4498-2, ENAP #### [facility] ([id number]) [address] [place] [address] Bilirubin [Mass/Vol] 0.7 mg/dL Normal 0.3-1.[address] [facility] Comment on above: Performed By: #### C BCA, 37458-5, CMP, 1987-12, 4485-04, 449-2, ENAP #### [facility] ([id number]) [address] [place] [address] Calcium [Mass/Vol] 9.1 mg/dL Normal 8.5-10.5 [facility] Comment on above: Performed By: #### C BCA, 57416-0, CMP, 1987-12, 4485-04, 4498-2, ENAP #### [facility] ([id number]) [address] [place] [address] Chloride [Moles/Vol] 101 mmol/L Normal 98-[address] [facility] Comment on above: Performed By: #### C BCA, 60398-4, CMP, 1987-12, 4485-04, 4498-2, ENAP #### [facility] ([id number]) [address] [place] [address] CO2 [Moles/Vol] 28 mmol/L Normal 22-[address] [facility] Comment on above: Performed By: #### C BCA, 04955-6, CMP, 1987-12, 4485-04, 4498-2, ENAP #### [facility] ([id number]) [address] [place] [address] Creatinine [Mass/Vol] 0.73 mg/dL Normal 0.60-1.30 [facility] Comment on above: Result Comment: METH OD TRACEABLE TO IDMS STANDARD Performed By: #### C BCA, 12628-2, CMP, 1987-12, 4485-04, 4498-2, ENAP #### [facility] ([id number]) [address] [place] [address] eGFR (CKD-EPI) NON-RACE DEPENDENT >90 Normal >[address] [facility] Comment on above: Result Comment: Reported eGFR is based on the CKD-EPI 2020 equation that does not use a race coefficient. Performed By: #### C BCA, 88482-3, CMP, 1987-12, 4485-04, 4498-2, ENAP #### [facility] ([id number]) [address] [place] [address] Glucose [Mass/Vol] 115 mg/dL High 65-99 [facility] Comment on above: Performed By: #### C BCA, 49993-5, CMP, 1987-12, 4485-04, 4498-2, ENAP #### [facility] ([id number]) [address] [place] [address] Potassium [Moles/Vol] 3.9 mmol/L Normal 3.5-5.0 [facility] Comment on above: Performed By: #### C BCA, 26299-1, CMP, 1987-12, 4485-04, 4498-2, ENAP #### [facility] ([id number]) [address] [place] [address] Protein [Mass/Vol] 7.2 g/dL Normal 6.0-8.0 [facility] Comment on above: Performed By: #### C BCA, 86619-2, CMP, 1987-12, 4485-04, 4498-2, ENAP #### [facility] ([id number]) [address] [place] [address] Sodium [Moles/Vol] 138 mmol/L Normal 134-146 [facility] Comment on above: Performed By: #### C POOL, 29541-0, CMP, 1987-12, 4485-04, 4498-2, ENAP #### [facility] ([id number]) [address] [place] [address] Urea nitrogen [Mass/Vol] 24 mg/dL High 5-[address] [facility] Comment on above: Performed By: #### C POOL, 55824-4, CMP, 1987-12, 4485-04, 4498-2, ENAP #### [facility] ([id number]) [address] [place] [address] Glucose Glucometer (BldC) [M ass/Vol]on 08-11-2024 Glucose [Mass/Vol] 201 mg/dL High 65-99 [facility] Glucose [Mass/Vol] 127 mg/dL High 65-99 [facility] Glucose [Mass/Vol] 128 mg/dL High 65-99 [facility] Glucose [Mass/Vol] 113 mg/dL High 65-99 [facility] CBC AND AUTO DIFFon 08-10-20 24 ABSOLUTE BASOPHIL 0.0 X10E9/L Normal 0.0-0.2 [facility] Comment on above: Performed By: #### C POOL, 42932-6, CMP, 1987-12, 4485-04, 4498-2, ENAP #### [facility] ([id number]) [address] [place] [address] ABSOLUTE NEUTROPHIL 21.0 X10E9/L High 1.5-6.6 [facility] Comment on above: Performed By: #### C POOL, 11349-3, CMP, 1987-12, 4485-04, 4498-2, ENAP #### [facility] ([id number]) [address] [place] [address] Basophils/100 WBC (Bld) 0.1 % Normal [facility] Comment on above: Performed By: #### C BCA, 75898-2, CMP, 1987-12, 4485-04, 4497-2, ENAP #### [facility] ([id number]) [address] [place] [address] Eosinophils (Bld) [#/Vol] 0.0 10*3/uL Normal 0.0-0.[address] [facility] Comment on above: Performed By: #### C POOL, 64061-7, CMP, 1987-12, 4485-04, 4497-2, ENAP #### [facility] ([id number]) [address] [place] [address] Eosinophils/100 WBC (Bld) 0.0 % Normal [facility] Comment on above: Performed By: #### C BCA, 79157-4, CMP, 1987-12, 4485-04, 4492, ENAP #### [facility] ([id number]) [address] [place] [address] Erythrocyte distribution width (RBC) [Ratio] 13.1 % Normal 11.5-15.[address] [facility] Comment on above: Performed By: #### C BCA, 17209-2, CMP, 1987-12, 4485-04, 4497-2, ENAP #### [facility] ([id number]) [address] [place] [address] Hematocrit (Bld) [Volume fraction] 45.5 % Normal 39-[address] [facility] Comment on above: Performed By: #### C BCA, 21731-2, CMP, 1987-12, 4485-04, 4497-2, ENAP #### [facility] ([id number]) [address] [place] [address] Hemoglobin (Bld) [Mass/Vol] 15.1 g/dL Normal 13.0-17.[address] [facility] Comment on above: Performed By: #### C BCA, 99658-1, CMP, 1987-12, 4485-04, 449-2, ENAP #### [facility] ([id number]) [address] [place] [address] Lymphocytes (Bld) [#/Vol] 1.8 10*3/uL Normal 1.0-3.[address] [facility] Comment on above: Performed By: #### C POOL, 95164-7, CMP, 1987-12, 4485-04, 4497-2, ENAP #### [facility] ([id number]) [address] [place] [address] Lymphocytes/100 WBC (Bld) 7.6 % Normal [facility] Comment on above: Performed By: #### C BCA, 47661-6, CMP, 1987-12, 4485-04, 4497-2, ENAP #### [facility] ([id number]) [address] [place] [address] MCH (RBC) [Entitic mass] 29.3 pg Normal 27-[address] [facility] Comment on above: Performed By: #### C BCA, 70778-8, CMP, 1987-12, 4485-04, 4498-2, ENAP #### [facility] ([id number]) [address] [place] [address] MCHC (RBC) [Mass/Vol] 33.3 g/dL Normal 32-36 [facility] Comment on above: Performed By: #### C BCA, 25514-0, CMP, 1987-12, 4485-04, 2, ENAP #### [facility] ([id number]) [address] [place] [address] MCV (RBC) [Entitic vol] 88 fL Normal 80-[address] [facility] Comment on above: Performed By: #### C BCA, 25581-1, CMP, 1987-12, 4485-04, 4497-2, ENAP #### [facility] ([id number]) [address] [place] [address] Monocytes (Bld) [#/Vol] 0.6 10*3/uL Normal 0-0.[address] [facility] Comment on above: Performed By: #### C POOL, 64022-7, CMP, 1987-12, 4485-04, 4497-2, ENAP #### [facility] ([id number]) [address] [place] [address] Monocytes/100 WBC (Bld) 2.8 % Normal [facility] Comment on above: Performed By: #### C BCA, 73479-1, CMP, 1987-12, 4485-04, 2, ENAP #### [facility] ([id number]) [address] [place] [address] Neutrophils/100 WBC (Bld) 89.5 % Normal [facility] Comment on above: Performed By: #### C BCA, 37303-9, CMP, 1987-12, 4485-04, 2, ENAP #### [facility] ([id number]) [address] [place] [address] Platelet mean volume (Bld) [Entitic vol] 7.8 fL Normal 7-[address] [facility] Comment on above: Performed By: #### C BCA, 43511-9, CMP, 1987-12, 4485-04, 2, ENAP #### [facility] ([id number]) [address] [place] [address] Platelets (Bld) [#/Vol] 386 10*3/uL Normal 150-[address] [facility] Comment on above: Performed By: #### C BCA, 26093-6, CMP, 1987-12, 4485-9, 4498-2, ENAP #### [facility] ([id number]) [address] [place] [address] RBC COUNT 5.17 X10E12/L Normal 4.10-5.[address] [facility] Comment on above: Performed By: #### C BCA, 29918-9, CMP, 1987-12, 448-9, 4498-2, ENAP #### [facility] ([id number]) [address] [address] WBC (Bld) [#/Vol] 23.4 10*3/uL High 4.0-11.0 [facility] Comment on above: Performed By: #### C BCA, 39689-8, CMP, 1987-12, 4484-9, 4498-2, ENAP #### [facility] ([id number]) [address] [address] CK [Catalytic activity/Vol]o n 08-10-2024 CPK 29 U/L Normal 24-[address] [facility] Comment on above: Performed By: #### C BCA, 45065-5, CMP, 1987-12, 4484-9, 4498-2, ENAP #### [facility] ([id number]) [address] [place] [address] COMPREHENSIVE METABOLIC PANE Rayshawn 08-10-2024 Albumin [Mass/Vol] 4.5 g/dL Normal 3.2-5.3 [facility] Comment on above: Performed By: #### C BCA, 84083-6, CMP, 1987-12, 9, 4498-2, ENAP #### [facility] ([id number]) [address] [place] [address] ALP [Catalytic activity/Vol] 76 U/L Normal 39-[address] [facility] Comment on above: Performed By: #### C BCA, 56772-0, CMP, 1987-12, 9, 4498-2, ENAP #### [facility] ([id number]) [address] [place] [address] ALT [Catalytic activity/Vol] 17 U/L Normal 0-[address] [facility] Comment on above: Performed By: #### C BCA, 85104-8, CMP, 1987-12, 4485-04, 4498-2, ENAP #### [facility] ([id number]) [address] [place] [address] Anion gap [Moles/Vol] 12 mmol/L Normal 5-15 [facility] Comment on above: Performed By: #### C BCA, 33673-0, CMP, 1987-12, 4485-04, 4498-2, ENAP #### [facility] ([id number]) [address] [place] [address] AST [Catalytic activity/Vol] 13 U/L Normal 0-[address] [facility] Comment on above: Performed By: #### C BCA, 76182-0, CMP, 1987-12, 4485-04, 4498-2, ENAP #### [facility] ([id number]) [address] [place] [address] Bilirubin [Mass/Vol] 0.7 mg/dL Normal 0.3-1.[address] [facility] Comment on above: Performed By: #### C BCA, 37854-4, CMP, 1987-12, 4485-04, 4498-2, ENAP #### [facility] ([id number]) [address], [address] [place] [address] Calcium [Mass/Vol] 9.3 mg/dL Normal 8.5-10.5 [facility] Comment on above: Performed By: #### C BCA, 77213-0, CMP, 1987-12, 4485-04, 4498-2, ENAP #### [facility] ([id number]) [address], [address] [place] [address] Chloride [Moles/Vol] 98 mmol/L Normal 98-[address] [facility] Comment on above: Performed By: #### C BCA, 12941-7, CMP, 1987-12, 4485-04, 449-2, ENAP #### [facility] ([id number]) [address], [address] [place] [address] CO2 [Moles/Vol] 23 mmol/L Normal 22-[address] [facility] Comment on above: Performed By: #### C BCA, 65830-1, CMP, 1987-12, 4485-04, 4498-2, ENAP #### [facility] ([id number]) [address], [facility] [address] [place] [address] Creatinine [Mass/Vol] 0.62 mg/dL Normal 0.60-1.30 [facility] Comment on above: Result Comment: METH OD TRACEABLE TO IDMS STANDARD Performed By: #### C BCA, 03798-5, CMP, 1987-12, 4485-04, 4498-2, ENAP #### [facility] ([id number]) [address], [facility] [address] [place] [address] eGFR (CKD-EPI) NON-RACE DEPENDENT >90 Normal >[address] [facility] Comment on above: Result Comment: Reported eGFR is based on the CKD-EPI 2020 equation that does not use a race coefficient. Performed By: #### C BCA, 10214-2, CMP, 1987-12, 4485-04, 449-2, ENAP #### [facility] ([id number]) [address] [place] [address] Glucose [Mass/Vol] 222 mg/dL High 65-99 [facility] Comment on above: Performed By: #### C BCA, 23708-7, CMP, 1987-12, 4485-04, 4498-2, ENAP #### [facility] ([id number]) [address] [place] [address] Potassium [Moles/Vol] 4.2 mmol/L Normal 3.5-5.0 [facility] Comment on above: Performed By: #### C BCA, 83982-0, CMP, 1987-12, 4485-04, 4498-2, ENAP #### [facility] ([id number]) [address] [place] [address] Protein [Mass/Vol] 7.2 g/dL Normal 6.0-8.0 [facility] Comment on above: Performed By: #### C BCA, 76981-6, CMP, 1987-12, 4485-04, 4498-2, ENAP #### [facility] ([id number]) [address], [address] [place] [address] Sodium [Moles/Vol] 133 mmol/L Low 134-146 [facility] Comment on above: Performed By: #### C BCA, 43873-9, CMP, 1987-12, 4485-04, 4498-2, ENAP #### [facility] ([id number]) [address], [address] [place] [address] Urea nitrogen [Mass/Vol] 25 mg/dL High 5-[address] [facility] Comment on above: Performed By: #### C BCA, 00285-4, CMP, 1987-12, 4485-04, 4498-2, ENAP #### [facility] ([id number]) [address], [address] [place] [address] CRP [Mass/Vol]on 08-10-2024 C REACTIVE PROTEIN 0.5 mg/dL Normal 0.000-0.744 [facility] Comment on above: Performed By: #### C BCA, 26550-5, CMP, 1987-12, 4485-04, 4498-2, ENAP #### [facility] ([id number]) [address], [address] [place] [address] VIJAY PANELon 08-10-2024 ANTI-KENNEDY AB IGG <0.2 Normal <1.0 [facility] Comment on above: Performed By: #### C POOL, 11402-8, CMP, 1987-12, 4485-04, 4498-2, ENAP #### [facility] ([id number]) [address], [address] [place] [address] JO1 ANTIBODY <0.2 Normal <1.[address] [facility] Comment on above: Performed By: #### C BCA, 95309-0, CMP, 1987-12, 4485-04, 449-2, ENAP #### [facility] ([id number]) [address], [address] [place] [address] BUSINESS CONTINUITY GLOBAL DIRECTOR ANTIBODY IGG 0.4 AI Normal <1.0 [facility] Comment on above: Performed By: #### C BCA, 62886-8, CMP, 1987-12, 4485-04, 449-2, ENAP #### [facility] ([id number]) [address], [address] [place] [address] SCL 70 ANTIBODY <0.2 Normal <1.[address] [facility] Comment on above: Performed By: #### C BCA, 86826-8, CMP, 1987-12, 4485-04, 4498-2, ENAP #### [facility] ([id number]) [address], [address] [place] [address] SSA ANTIBODY <0.2 Normal <1.[address] [facility] Comment on above: Performed By: #### C POOL, 28941-1, CMP, 1987-12, 4485-04, 4498-2, ENAP #### [facility] ([id number]) [address], [address] [place] [address] SSB ANTIBODY <0.2 Normal <1.[address] [facility] Comment on above: Performed By: #### C POOL, 77235-1, CMP, 1987-12, 4485-04, 4498-2, ENAP #### [facility] ([id number]) [address] [place] [address] ESR Photometric method (Bld) [Velocity]on 08-10-2024 ESR, ERYTHROCYTE SEDIMENTATION RATE 12 mm/h Normal 0-[address] [facility] Comment on above: Performed By: #### C POOL, 41401-9, CMP, 1987-12, 4485-04, 449-2, ENAP #### [facility] ([id number]) [address] [place] [address] Glucose Glucometer (BldC) [M ass/Vol]on 08-10-2024 Glucose [Mass/Vol] 198 mg/dL High 65-99 [facility] Glucose [Mass/Vol] 209 mg/dL High 65-99 [facility] Glucose [Mass/Vol] 198 mg/dL High 65-99 [facility] Glucose [Mass/Vol] 197 mg/dL High 65-99 [facility] Myoglobin [Mass/Vol]on 08-10 SERUM MYOGLOBIN 39.1 ng/mL Normal 17.4-105.[address] [facility] Comment on above: Performed By: #### C POOL, 84749-2, CMP, 1987-12, 4485-04, 4498-2, ENAP #### [facility] ([id number]) [address] [place] [address] Nuclear Ab IA Ql (S)on 08-10 RAVINDER Screen w/reflex Negative Normal NEG [facility] Comment on above: Result Comment: Testing performed using multiplex flow immunoassay. Eleven different antigens associated with systemic autoimmune diseases (dsDNA,Sm,Sm/BUSINESS CONTINUITY GLOBAL DIRECTOR,BUSINESS CONTINUITY GLOBAL DIRECTOR,Chromatin, SSA,SSB,Ivanna-1,Scl70,Ribo P,Centromere B) are included in this screening test. Performed By: #### C POOL, 28852-9, [facility], 1987-12, 4485-04, [facility]-2, ENAP #### [facility] ([id number]) [address] [address] CBC AND AUTO DIFFon 08-09-20 24 ABSOLUTE BASOPHIL 0.1 X10E9/L Normal 0.0-0.2 [facility] Comment on above: Performed By: #### Luke LANZA, 67981-7, [facility], 1987-12, 4485-04, [facility]-2, ENAP #### [facility] ([id number]) [address] [address] ABSOLUTE NEUTROPHIL 20.8 X10E9/L High 1.5-6.6 [facility] Comment on above: Performed By: #### C POOL, 18139-7, [facility], 1987-12, 4485-04, [facility]-2, ENAP #### [facility] ([id number]) [address] [address] Basophils/100 WBC (Bld) 0.3 % Normal [facility] Comment on above: Performed By: #### C POOL, 25151-9, [facility], 1987-12, 4485-04, [facility]2, ENAP #### [facility] ([id number]) [address] [address] Eosinophils (Bld) [#/Vol] 0.0 10*3/uL Normal 0.0-0.[address] [facility] Comment on above: Performed By: #### C POOL, 79826-8, CMP, 1987-12, 4485-04, 4498-2, ENAP #### [facility] ([id number]) [address], [address] [place] [address] Eosinophils/100 WBC (Bld) 0.0 % Normal [facility] Comment on above: Performed By: #### C POOL, 96206-0, CMP, 1987-12, 4485-04, 4497-2, ENAP #### [facility] ([id number]) [address], [facility] [address] [place] [address] Erythrocyte distribution width (RBC) [Ratio] 12.9 % Normal 11.5-15.[address] [facility] Comment on above: Performed By: #### C POOL, 26838-1, CMP, 1987-12, 4485-04, 4497-2, ENAP #### [facility] ([id number]) [address], [address] [place] [address] Hematocrit (Bld) [Volume fraction] 44.5 % Normal 39-[address] [facility] Comment on above: Performed By: #### C POOL, 13480-1, CMP, 1987-12, 4485-04, 449-2, ENAP #### [facility] ([id number]) [address] [place] [address] Hemoglobin (Bld) [Mass/Vol] 14.7 g/dL Normal 13.0-17.[address] [facility] Comment on above: Performed By: #### C POOL, 43798-6, CMP, 1987-12, 4485-04, 449-2, ENAP #### [facility] ([id number]) [address] [place] [address] Lymphocytes (Bld) [#/Vol] 1.5 10*3/uL Normal 1.0-3.[address] [facility] Comment on above: Performed By: #### Luke LANZA, 12168-8, CMP, 1987-12, 4485-04, 449-2, ENAP #### [facility] ([id number]) [address], [address] [place] [address] Lymphocytes/100 WBC (Bld) 6.8 % Normal [facility] Comment on above: Performed By: #### C BCA, 78183-6, CMP, 1987-12, 4485-04, 4497-2, ENAP #### [facility] ([id number]) [address], [address] [place] [address] MCH (RBC) [Entitic mass] 29.5 pg Normal 27-[address] [facility] Comment on above: Performed By: #### C POOL, 84268-7, CMP, 1987-12, 4485-04, 449-2, ENAP #### [facility] ([id number]) [address], [address] [place] [address] MCHC (RBC) [Mass/Vol] 33.0 g/dL Normal 32-36 [facility] Comment on above: Performed By: #### C POOL, 01435-8, CMP, 1987-12, 4485-04, 4492, ENAP #### [facility] ([id number]) [address], [address] [place] [address] MCV (RBC) [Entitic vol] 89 fL Normal 80-[address] [facility] Comment on above: Performed By: #### C BCA, 80121-3, CMP, 1987-12, 4485-04, 449-2, ENAP #### [facility] ([id number]) [address] [place] [address] Monocytes (Bld) [#/Vol] 0.4 10*3/uL Normal 0-0.[address] [facility] Comment on above: Performed By: #### Luke BCA, 66057-6, CMP, 1987-12, 4485-04, 8-2, ENAP #### [facility] ([id number]) [address] [place] [address] Monocytes/100 WBC (Bld) 1.9 % Normal [facility] Comment on above: Performed By: #### C BCA, 53348-3, CMP, 1987-12, 4485-04, 4498-2, ENAP #### [facility] ([id number]) [address] [place] [address] Neutrophils/100 WBC (Bld) 91.0 % Normal [facility] Comment on above: Performed By: #### C BCA, 85872-0, CMP, 1987-12, 4485-04, 4498-2, ENAP #### [facility] ([id number]) [address] [place] [address] Platelet mean volume (Bld) [Entitic vol] 7.7 fL Normal 7-[address] [facility] Comment on above: Performed By: #### C BCA, 19485-2, CMP, 1987-12, 4485-04, 4498-2, ENAP #### [facility] ([id number]) [address] [place] [address] Platelets (Bld) [#/Vol] 341 10*3/uL Normal 150-[address] [facility] Comment on above: Performed By: #### C BCA, 04626-6, CMP, 1987-12, 4485-04, 4498-2, ENAP #### [facility] ([id number]) [address] [place] [address] RBC COUNT 4.99 X10E12/L Normal 4.10-5.[address] [facility] Comment on above: Performed By: #### C BCA, 02201-8, CMP, 1987-12, 4485-04, 449-2, ENAP #### [facility] ([id number]) [address], [address] [place] [address] WBC (Bld) [#/Vol] 22.8 10*3/uL High 4.0-11.0 [facility] Comment on above: Performed By: #### C BCA, 30373-3, CMP, 1987-12, 4484-9, 4498-2, ENAP #### [facility] ([id number]) [address] [place] [address] [facility] 08-09-2024 Albumin [Mass/Vol] 4.5 g/dL Normal 3.2-5.3 [facility] Comment on above: Performed By: #### C BCA, 99788-0, CMP, 1987-12, 4485-04, 4498-2, ENAP #### [facility] ([id number]) [address] [place] [address] ALP [Catalytic activity/Vol] 71 U/L Normal 39-[address] [facility] Comment on above: Performed By: #### C BCA, 60062-6, CMP, 1987-12, 4485-04, 4498-2, ENAP #### [facility] ([id number]) [address] [place] [address] ALT [Catalytic activity/Vol] 22 U/L Normal 0-[address] [facility] Comment on above: Performed By: #### C BCA, 00036-2, CMP, 1987-12, 9, 4498-2, ENAP #### [facility] ([id number]) [address] [place] [address] Anion gap [Moles/Vol] 12 mmol/L Normal 5-15 [facility] Comment on above: Performed By: #### C BCA, 25864-6, CMP, 1987-12, 9, 4498-2, ENAP #### [facility] ([id number]) [address] [place] [address] AST [Catalytic activity/Vol] 13 U/L Normal 0-[address] [facility] Comment on above: Performed By: #### C BCA, 42529-3, CMP, 1987-12, 4484-9, 4498-2, ENAP #### [facility] ([id number]) [address] [place] [address] Bilirubin [Mass/Vol] 0.8 mg/dL Normal 0.3-1.[address] [facility] Comment on above: Performed By: #### C BCA, 84158-5, CMP, 1987-12, 4485-04, 4498-2, ENAP #### [facility] ([id number]) [address] [place] [address] Calcium [Mass/Vol] 9.6 mg/dL Normal 8.5-10.5 [facility] Comment on above: Performed By: #### C BCA, 84543-5, CMP, 1987-12, 4485-04, 4498-2, ENAP #### [facility] ([id number]) [address] [place] [address] Chloride [Moles/Vol] 100 mmol/L Normal 98-[address] [facility] Comment on above: Performed By: #### C BCA, 91451-2, CMP, 1987-12, 4485-04, 4498-2, ENAP #### [facility] ([id number]) [address] [place] [address] CO2 [Moles/Vol] 24 mmol/L Normal 22-[address] [facility] Comment on above: Performed By: #### C BCA, 19137-9, CMP, 1987-12, 4485-04, 4498-2, ENAP #### [facility] ([id number]) [address] [place] [address] Creatinine [Mass/Vol] 0.77 mg/dL Normal 0.60-1.30 [facility] Comment on above: Result Comment: METH OD TRACEABLE TO IDMS STANDARD Performed By: #### C BCA, 92759-9, CMP, 1987-12, 4485-04, 4498-2, ENAP #### [facility] ([id number]) [address], [address] [address] eGFR (CKD-EPI) NON-RACE DEPENDENT >90 Normal >[address] [facility] Comment on above: Result Comment: Reported eGFR is based on the CKD-EPI 2020 equation that does not use a race coefficient. Performed By: #### C BCA, 54699-7, CMP, 1987-12, 4485-04, 4498-2, ENAP #### [facility] ([id number]) [address], [address] [address] Glucose [Mass/Vol] 203 mg/dL High 65-99 [facility] Comment on above: Performed By: #### C BCA, 52916-9, CMP, 1987-12, 4485-04, 4498-2, ENAP #### [facility] ([id number]) [address] [address] Potassium [Moles/Vol] 3.9 mmol/L Normal 3.5-5.0 [facility] Comment on above: Performed By: #### C BCA, 59678-3, CMP, 1987-12, 4485-04, 4498-2, ENAP #### [facility] ([id number]) [address], [address] [address] Protein [Mass/Vol] 7.0 g/dL Normal 6.0-8.0 [facility] Comment on above: Performed By: #### C BCA, 92411-9, CMP, 1987-12, 4485-04, 4498-2, ENAP #### [facility] ([id number]) [address] [place] [address] Sodium [Moles/Vol] 136 mmol/L Normal 134-146 [facility] Comment on above: Performed By: #### C BCA, 27701-9, CMP, 1987-12, 4485-04, 4498-2, ENAP #### [facility] ([id number]) [address] [place] [address] Urea nitrogen [Mass/Vol] 23 mg/dL Normal 5-[address] [facility] Comment on above: Performed By: #### C POOL, 24217-3, CMP, 1987-12, 4485-04, 4498-2, ENAP #### [facility] ([id number]) [address] [place] [address] Glucose Glucometer (BldC) [M ass/Vol]on 08-09-2024 Glucose [Mass/Vol] 267 mg/dL High 65-99 [facility] Glucose [Mass/Vol] 147 mg/dL High 65-99 [facility] IGAon 08-09-2024 IgA [Mass/Vol] 247 mg/dL Normal 68-[address] [facility] Comment on above: Performed By: #### C POOL, 49584-9, CMP, 1987-12, 4485-04, 4498-2, ENAP #### [facility] ([id number]) [address] [place] [address] aPTT Coag (PPP) [Time]on aPTT Coag (Bld) [Time] 29 s Normal 26-[address] [facility] Comment on above: Performed By: #### C BCA, 13095-4, CMP, 1987-12, 4485-04, 4498-2, ENAP #### [facility] ([id number]) [address] [place] [address] CNOVon 07-10-2024 CNOV Office Visit (NRESFV ) -- BHUMIKA UMANA ([id number]) 1975 M Date Time Provider Department 07/10/24 9:30 AM DAREK VALDOVINOS NRESFV During your visit today, we recorded the following information about you: Pulse Blood pressure Weight Height 78/minute 139/79 144.8 kg 1.905 m Keith Leone MD 07/10/2024 1:12 PM Signed [facility] New Patient Evaluation Consulting Provider: Errol Sanford [address] [facility] [address] [place] [id number] Chief Complaint/Issues: Bhumika Umana is a 48 year old male with hx of ?RA, T2DM, past tobacco use, obesity, seen in the [facility] for: Progressive BL UE weakness and numbness Intermittent LE weakness HPI: Patient states symptoms started in December 2023 with numbness in his fingertips BL. Later than morning, he noticed he did not have any audio visual specialist strength in his left hand. His right [...] he had celluliutis. He re-established with a administrative dietitian locally who felt he did not have [...] and natan (more content not included)... Normal [facility] CNCOon 06-27-2024 CNCO Letter Text Normal [facility] 06-26-2024 [facility] HNO ID: [id number] Author: ROCIO IZAGUIRRE RT(R) Service: Radiology Author Type: Radial Drill Press Operator Type: Allied Health Filed: 06/26/2024 07:24 [...] PATIENT PRESENTS WITH AN IMPLANTABLE OR ATTACHED REFRIGERATING MACHINE OPERATOR: No RADIOLOGY DEPARTMENT: MR; Exam(s) Completed: Spine: Cervical spine PERIPHERAL IV DATA: Inpatient: see LDA documentation SIGNED BY: Rocio Izaguirre RT(R) June 26, 2024 7:23 AM Normal [facility] CBC panel Auto (Bld)on 06-26 Erythrocyte distribution width (RBC) [Ratio] 12.1 % Normal 11.5-15.0 [facility] Comment on above: Order Comment: Speci men Type: BLOOD SPECIMEN Ordering Facility: [facility] Address: [address] [place] [address] Performed By: #### L [id number] #### [facility] CLIA [id number] [address] [place] [address] [place] Hematocrit (Bld) [Volume fraction] 42.5 % Normal 39.0-51.0 [facility] Comment on above: Order Comment: Speci men Type: BLOOD SPECIMEN Ordering Facility: [facility] Address: [address] [place] [address] Performed By: #### L [id number] #### [facility] CLIA [id number] [address] [place] [address] [place] Hemoglobin (Bld) [Mass/Vol] 14.2 g/dL Normal 13.0-17.0 [facility] Comment on above: Order Comment: Speci men Type: BLOOD SPECIMEN Ordering Facility: [facility] Address: [address] [place] [address] Performed By: #### L [id number] #### [facility] CLIA [id number] [address] [place] [address] [place] MCH (RBC) [Entitic mass] 30.0 pg Normal 26.0-34.0 [facility] Comment on above: Order Comment: Speci men Type: BLOOD SPECIMEN Ordering Facility: [facility] Address: [address] [place] [address] Performed By: #### L [id number] #### [facility] CLIA [id number] [address] [place] [address] [place] MCHC (RBC) [Mass/Vol] 33.4 g/dL Normal 30.5-36.0 [facility] Comment on above: Order Comment: Speci men Type: BLOOD SPECIMEN Ordering Facility: [facility] Address: [address] [place] [address] Performed By: #### L [id number] #### [facility] CLIA [id number] [address] [place] [address] [place] MCV (RBC) [Entitic vol] 89.7 fL Normal 80.0-100.0 [facility] Comment on above: Order Comment: Speci men Type: BLOOD SPECIMEN Ordering Facility: [facility] Address: [address] [place] [address] Performed By: #### L [id number] #### [facility] CLIA [id number] [address] [place] [address] [place] Nucleated RBC (Bld) [#/Vol] 10*3/uL Normal <0.01 [facility] Comment on above: Order Comment: Speci men Type: BLOOD SPECIMEN Ordering Facility: [facility] Address: [address] [place] [address] Performed By: #### L [id number] #### [facility] CLIA [id number] [address] [place] [address] [place] Platelet mean volume (Bld) [Entitic vol] 9.2 fL Normal 9.0-12.7 [facility] Comment on above: Order Comment: Speci men Type: BLOOD SPECIMEN Ordering Facility: [facility] Address: [address] [place] [address] Performed By: #### L [id number] #### [facility] CLIA [id number] [address] [place] [address] [place] Platelets (Bld) [#/Vol] 304 10*3/uL Normal 150-400 [facility] Comment on above: Order Comment: Speci men Type: BLOOD SPECIMEN Ordering Facility: [facility] Address: [address] [place] [address] Performed By: #### L [id number] #### [facility] CLIA [id number] [address] [place] [address] [place] RBC (Bld) [#/Vol] 4.74 10*6/uL Normal 4.20-6.00 [facility] Comment on above: Order Comment: Speci men Type: BLOOD SPECIMEN Ordering Facility: [facility] Address: [address] [place] [address] Performed By: #### L [id number] #### [facility] CLIA [id number] [address] [place] [address] WBC (Bld) [#/Vol] 8.67 10*3/uL Normal 3.70-11.00 [facility] Comment on above: Order Comment: Speci men Type: BLOOD SPECIMEN Ordering Facility: [facility] Address: [address] [place] [address] Performed By: #### L [id number] #### [facility] CLIA [id number] [address] [place] [address] [place] [facility] CBC PNL BLD AUTOon 06-26 [facility] NRBC # BLD AUTO <0.01 [facility] PLATELET # BLD AUTO 304 [facility] PMV BLD AUTO 9.2 fL 9.0 - 12.7 fL [facility] WBC # BLD AUTO 8.67 [facility] Erythrocyte distribution width (RBC) [Ratio] 12.1 % 11.5 - 15.0 % [facility] Hematocrit (Bld) [Volume fraction] 42.5 % 39.0 - 51.0 % [facility] Hemoglobin (Bld) [Mass/Vol] 14.2 g/dL 13.0 - 17.0 g/dL [facility] MCH (RBC) [Entitic mass] 30 pg 26.0 - 34.0 pg [facility] MCHC (RBC) [Mass/Vol] 33.4 g/dL 30.5 - 36.0 g/dL [facility] MCV (RBC) [Entitic vol] 89.7 fL 80.0 - 100.0 fL [facility] RBC (Bld) [#/Vol] 4.74 10*6/uL 4.20 - 6.0 0 m/uL [facility] Specimen Type: BLOOD SPECIMEN Ordering Facility: [facility] Address: [address] [id number] Original [facility]ing [facility]: [facility] HNO ID: [id number] Author: LELAND DANG MD Service: General Internal [...] with the resident. I have performed the [id number] and relevant services for a total of >30 minutes. Signature: Leland Dang MD Date: 06/26/2024 Time: 5:27 PM -- DISCHARGE SUMMARY PATIENT NAME: Bhumika Umana ADMISSION DATE: 06/24/2024 DISCHARGE DATE: 06/26/2024 ATTENDING PHYSICIAN: Leland Dang* Code Status: Full Code PCP: Cecy Hernandez, HERIBERTO, BRAZER INDUCTION Highest Readmission Risk Score: 10 The 30 [...] the wall. 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 During hospitalization, neurology was consulted and cervical [...] Anti-CCP 01/2023: (more content not included)... Normal [facility] Comprehensive metabolic 2000 panelon 06-26-2024 Albumin [Mass/Vol] 4.2 g/dL Normal 3.9-4.9 [facility] Comment on above: Order Comment: Deborah finley Type: BLOOD SPECIMENOrdering Facility: [facility] Address: [address] [place] [address] Performed By: #### 2 885-2, 81319-8, 7574-8, 52347-6 ####[facility] LABCLIA [id number] [facility] [id number] [place] [address] [place] ALP [Catalytic activity/Vol] 72 U/L Normal 38-113 [facility] Comment on above: Order Comment: Speci men Type: BLOOD SPECIMENOrdering Facility: [facility] Address: [address] [place] [address] Performed By: #### 2 885-2, 12292-0, 2283-8, 72104-3 ####[facility] LABCLIA [id number] [address] [address] [place] ALT [Catalytic activity/Vol] 24 U/L Normal 10-54 [facility] Comment on above: Order Comment: Speci men Type: BLOOD SPECIMENOrdering Facility: [facility] Address: [address] [place] [address] Performed By: #### 2 885-2, 60557-9, 2283-8, ####[facility] LABCLIA [id number] [place] [address] [place] Anion gap [Moles/Vol] 10 mmol/L Normal 8-15 [facility] Comment on above: Order Comment: Speci men Type: BLOOD SPECIMENOrdering Facility: [facility] Address: [address] [place] [address] Performed By: #### 2 885-2, 83288-1, 2283-8, ####[facility] LABCLIA [id number] [address] [address] [place] AST [Catalytic activity/Vol] 19 U/L Normal 14-40 [facility] Comment on above: Order Comment: Speci men Type: BLOOD SPECIMENOrdering Facility: [facility] Address: [address] [place] [address] Performed By: #### 2 885-2, 03645-7, 2283-8, 14675-0 ####[facility] LABCLIA [id number] [address] [address] [place] Bilirubin [Mass/Vol] 0.6 mg/dL Normal 0.2-1.3 [facility] Comment on above: Order Comment: Speci men Type: BLOOD SPECIMENOrdering Facility: [facility] Address: [address] [place] [address] Performed By: #### 2 885-2, 83783-0, 8, 91818-2 ####[facility] LABCLIA [id number] [address] [address] [place] Calcium [Mass/Vol] 9.3 mg/dL Normal 8.5-10.2 [facility] Comment on above: Order Comment: Speci men Type: BLOOD SPECIMENOrdering Facility: [facility] Address: [address] [place] [address] Performed By: #### 2 885-2, 58315-3, 8, ####[facility] LABIA [id number] [place] [address] [place] Chloride [Moles/Vol] 104 mmol/L Normal 98-107 [facility] Comment on above: Order Comment: Speci men Type: BLOOD SPECIMENOrdering Facility: [facility] Address: [address] [place] [address] Performed By: #### 2 885-2, 35932-8, 8, ####[facility] LABCLIA [id number] [address] [address] [place] CO2 [Moles/Vol] 27 mmol/L Normal 22-30 [facility] Comment on above: Order Comment: Speci men Type: BLOOD SPECIMENOrdering Facility: [facility] Address: [address] [place], [place] [address] Performed By: #### 2 885-2, 43875-0, 8, 41614-8 ####[facility] LABCLIA [id number] [address] [address] [place] Creatinine [Mass/Vol] 0.65 mg/dL Low 0.73-1.22 [facility] Comment on above: Order Comment: Speci men Type: BLOOD SPECIMENOrdering Facility: [facility] Address: [address] [place] [id number] Performed By: #### 2 885-2, 68841-7, 4-8, 08686-7 ####[facility] LABCLIA [id number] [place] [id number] [place] Creatinine and Glomerular filtration rate.predicted panel (S/P/Bld) 118 mL/min/1.73m??? Normal >=60 [facility] Comment on above: Order Comment: Deborah malia Type: BLOOD SPECIMENOrdering Facility: [facility] Address: [address] [place] [address] Result Comment: Alexa mated Glomerular Filtration Rate [...] actual GFR. Performed By: #### 2 885-2, 82158-9, 2283-8, 09635-2 ####[facility] LABCLIA [id number] [place] [address] [place] Glucose [Mass/Vol] 94 mg/dL Normal 74-99 [facility] Comment on above: Order Comment: Deborah finley Type: BLOOD SPECIMENOrdering Facility: [facility] Address: [address] [place] [address] Result Comment: The [place] Diabetes Association (ADA) provides guidance for cutoff [...] Standards of Medical Care in Diabetes 2016, [place] [employer] Association. Diabetes Care. 2016.39(Suppl 1). Performed By: #### 2 885-2, 81110-0, 8, 90708-3 ####[facility] LABCLIA [id number] [address] [address] [place] Potassium [Moles/Vol] 3.9 mmol/L Normal 3.7-5.1 [facility] Comment on above: Order Comment: Speci men Type: BLOOD SPECIMENOrdering Facility: [facility] Address: [address] [place] [address] Performed By: #### 2 885-2, 19638-5, 8, ####[facility] LABIA [id number] [place] [address] [place] Sodium [Moles/Vol] 141 mmol/L Normal 136-144 [facility] Comment on above: Order Comment: Speci men Type: BLOOD SPECIMENOrdering Facility: [facility] Address: [address] [place] [address] Performed By: #### 2 885-2, 18551-2, 8, ####[facility] LABIA [id number] [place] [address] [place] Urea nitrogen [Mass/Vol] 10 mg/dL Normal 9-24 [facility] Comment on above: Order Comment: Speci men Type: BLOOD SPECIMENOrdering Facility: [facility] Address: [facility] [place] [address] Performed By: #### 2 885-2, 91872-9, 8, 63019-7 ####[facility] LABIA [id number] [address] [address] [place] Folate SerPl-mCncon 10-30-20 24 Folate [Mass/Vol] 11.6 ng/mL Normal >4.7 [facility] Comment on above: Order Comment: Speci men Type: BLOOD SPECIMENOrdering Facility: [facility] Address: [address] [place] [address] Performed By: #### 2 885-2, 42803-4, 2284-8, 43312-2 ####[facility] LABCLIA [id number] [facility] [place] [address] [place] MRI CERVICAL SPINE [...] vertebrae with counting from the craniocervical junction. County Adviser: PSCB Transcribe Date/Time: Jun 26 2024 7:33A Dictated by : SUDHIR PUENTE MD This examination was interpreted and the report reviewed and electronically signed by: BRIDGET LIND MD on Jun 26 2024 8:09AM EST [id number] Normal [facility] Magnesium SerPl-mCncon 06-26 Magnesium [Mass/Vol] 2.0 mg/dL Normal 1.7-2.3 [facility] Comment on above: Order Comment: Speci men Type: BLOOD SPECIMENOrdering Facility: [facility] Address: [address] [place] [address] Performed By: #### 2 885-2, 80670-1, 2284-8, 96857-1 ####[facility] LABCLIA [id number] [place] [address] [place] NURSING PROGon 06-26-2024 NURSING PROG HNO ID: [id number] Author: SUSANA CAST RN Service: Radiology Author [...] June 26, 2024 TIME: 6:38 AM Normal [facility] PROTEIN ELECTROPHORESIS SERU M WITH ELIN (P)on 06-26-2024 Albumin [Mass/Vol] 3.83 g/dL Normal 3.43-5.41 [facility] Comment on above: Order Comment: Speci men Type: BLOOD SPECIMEN [facility] Address: [address] [place] [address] Performed By: #### L [id number] #### [facility] CLIA [id number] [address] [place] [address] [place] Alpha 1 globulin Elph [Mass/Vol] 0.26 g/dL Normal 0.18-0.43 [facility] Comment on above: Order Comment: Speci men Type: BLOOD SPECIMEN [facility] Address: [address] [place] [address] Performed By: #### L [id number] #### [facility] CLIA [id number] [address] [place] [address] [place] Alpha 2 globulin Elph [Mass/Vol] 0.62 g/dL Normal 0.42-0.98 [facility] Comment on above: Order Comment: Speci men Type: BLOOD SPECIMEN [facility] Address: [address] [place] [address] Performed By: #### L [id number] #### [facility] CLIA [id number] [address] [place] [address] [place] Beta globulin Elph [Mass/Vol] 0.76 g/dL Normal 0.61-1.17 [facility] Comment on above: Order Comment: Speci men Type: BLOOD SPECIMEN [facility] Address: [address] [place] [address] Performed By: #### L [id number] #### [facility] CLIA [id number] [address] [place] [address] [place] COMMENT (SERUM PROT ELECTRO) Monoclonal Protein analysis (immunofixation) is not indicated. Normal [facility] Comment on above: Order Comment: Speci men Type: BLOOD SPECIMEN [facility] Address: [address] [place] [address] Performed By: #### L [id number] #### [facility] CLIA [id number] [address] [place] [address] [place] Gamma globulin Elph [Mass/Vol] 0.62 g/dL Normal 0.53-1.51 [facility] Comment on above: Order Comment: Speci men Type: BLOOD SPECIMEN [facility] Address: [address] [place] [address] Performed By: #### L [id number] #### [facility] CLIA [id number] [address] [place] [address] [place] M-PROTEIN LOCATION Normal [facility] Comment on above: Order Comment: Speci men Type: BLOOD SPECIMEN [facility] Address: [address] [place] [address] Result Comment: Not Applicable. Performed By: #### L [id number] #### [facility] CLIA [id number] [address] [place] [address] [place] Protein Fractions [Interp] No definitive M protein is identified on protein electrophoresis. Normal No definitive M protein is identified on protein electrophore sis. [facility] Comment on above: Order Comment: Speci men Type: BLOOD SPECIMEN [facility] Address: [address] [place] [address] Performed By: #### L [id number] #### [facility] CLIA [id number] [address] [place] [address] [place] Protein.monoclonal Elph [Mass/Vol] 0.00 g/dL Normal <=0.00 [facility] Comment on above: Order Comment: Speci men Type: BLOOD SPECIMEN [facility] Address: [address] [place] [address] Performed By: #### L [id number] #### [facility] CLIA [id number] [address] [place] [address] [place] SPE STAFF REVIEW Reviewed by Merritt Villafuerte MD, Ph.D ([id number]) Normal [facility] Comment on above: Order Comment: Speci men Type: BLOOD SPECIMEN [facility] Address: [address] [place] [address] Performed By: #### L [id number] #### [facility] CLIA [id number] [address] [place] [address] [place] Prot SerPl-mCncon 06-26-2024 Protein [Mass/Vol] 6.1 g/dL Low 6.3-8.0 [facility] Comment on above: Order Comment: Speci men Type: BLOOD SPECIMENOrdering Facility: [facility] Address: [address] [place] [address] Performed By: #### 2 885-2, 86128-7, 2284-8, 11439-3 ####[facility] LABCLIA [id number] [address] [place] THERAPY NTon 06-26-2024 THERAPY NT HNO ID: [id number] Author: SANTA COFFEY, PT, DPT Service: Physical Therapy Author Type: Physical Therapist Type: Therapy (PT/OT/Speech/Resp) Filed: 06/26/2024 14:51 Note Text: Physical Therapy Treatment Summary SERVICE DATE: 06/26/2024 SERVICE TIME: 1425 to 1448 ROOM: [place] [address] PT 6 Clicks Score: 24 DISCHARGE RECOMMENDATIONS Outpatient PT Recommended Discharge Disposition Comments: ' Recommended Discharge Equipment: No equipment needs anticipated ASSESSMENT Response to Therapy Interventions: Good Participation in Activities PRECAUTIONS Fall Risk CURRENT HOSPITAL COURSE Weakness in arms and legs Relevant Past Medical History: T2DM, HTN, RA previously on humira for 1.5 years stopped in 2020, osteoarthritis of both hands, depression, HOME LIVING [...] Muscle Weakness (generalized) TREATMENT INTERVENTIONS Therapeutic Activity (92841) Timed Code Treatment (minutes): 23 Skilled Treatment [...] June 26, 2024 TIME: 2:51 PM Normal [facility] THERAPY NT HNO ID: [id number] Author: DEIRDRE MORGAN, EUFEMIA/Abdoul, OTD Service: Occupational Therapy Author Type: Occupational Therapist Type: Therapy (PT/OT/Speech/Resp) Filed: 06/26/2024 11:17 Note Text: Occupational Therapy Evaluation Summary SERVICE DATE: 06/26/2024 SERVICE TIME: 0839 to 1010 ROOM: [place] [address] OT 6 Clicks Score: 16 DISCHARGE RECOMMENDATIONS [...] (generalized) TREATMENT INTERVENTIONS Evaluation, Self Snf Management (33897), Cognitive Training (44671 and 94251) Timed Code Treatment (minutes): 76 Skilled Treatment Time (minutes): 91 TRAINING AND EDUCATION PROVIDED Activity Adaptation/Compensatory Strategies, Assistive Device Use, Adaptive Equipment/DME, Benefits of In-Hospital Mobility, Command Following, Coping Skills/Resiliency, Discharge Planning, Energy Conservation, Functional Mobility Involving ADLs, Grooming Tasks, IADLs/Home Management, Identification of Systems of Support, Life Roles/Routines/Habits, Positioning, Role of Occupational Therapy, Sitting Balance to Improve [place] with ADLs/Self-Care, Splint Management, Standing Balance to Improve [place] with ADLs/Self-Care, Transfer - Sit to Stand, [...] needs identified to allow safe discharge to [facility] (more content not included)... Normal [facility] VITAMIN B6/PYRIDOXINon 06-26 VITAMIN B6 32.1 nmol/L Normal 20.0-125.0 [facility] Comment on above: Order Comment: Speci men Type: BLOOD SPECIMEN [facility] Address: [address] [place] [address] Result Comment: INTE RPRETIVE INFORMATION: Vitamin B6 (Pyridoxal 5-Phosphate) Pyridoxal 5'-phosphate measured in a specimen collected following an 8-hour or overnight fast accurately indicates vitamin B6 nutritional status. Non-fasting specimen concentration reflects recent vitamin intake. This test was developed and its performance characteristics determined by [facility]. It has not been cleared or approved by the US Food and Drug Administration. This test was performed in a CLIA certified laboratory and is intended for clinical purposes. Performed By: [facility] [address] [place] [address] [place]: Leonardo Topete MD, PhD CLIA Number: [id number] Performed By: #### L [id number] #### [facility] CLIA [id number] [address] [place] [address] CASE MANAGEMon 06-25-2024 CASE MANAGEM HNO ID: [id number] Author: MOE ARANGO LISW Service: ? Author Type: Pig Machine Crane Operator Type: Care Mgt Progress Note Filed: 06/25/2024 14:25 Note Text: CARE MANAGEMENT/ SOCIAL WORK HIGH RISK PSYCHOSOCIAL ASSESSMENT SERVICE DATE: June 25, 2024 SERVICE TIME: 2:05 PM Reason for Admission: Weakness [R53.1] Reason for Social Work Contact: Housing Time Spent (minutes): 30 Information Obtained From: Patient Rf Test Technician Chart Patient Granted Permission to Speak to Others in the Room: Not Applicable SOCIAL HISTORY Marital Status: Single Children (Including Quality of Relationship): Unknown Gender Identity: Male Abuse History: Not Applicable Support System: Family: Brother Status (Including History of Combat Experience): None PSYCHIATRIC HISTORY: Diagnosis: Depression Family Psychiatric History Unknown Substance Use and Treatment 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 [...] recently evicted after his sister became the rubbish collection supervisor earlier this year. Pt reported his father [...] office for assistance. Per EMR, pt with [place] [employer]. SW encouraged pt to contact his insurance to request a behavioral health case manager for additional community support. Pt will plan to brother's home at time of discharge. Pt denied any other questions or concerns at this time. Should any other psychosocial needs arise, please re-consult BELINDA. SIGNATURE: YAW Vincent PATIENT NAME: Bhumika Umana DATE: June 25, 2024 TIME: 2:05 PM CONTACT #: [phone] Normal [facility] CBC panel Auto (Bld)on 06-25 Erythrocyte distribution width (RBC) [Ratio] 12.3 % Normal 11.5-15.0 [facility] Comment on above: Order Comment: Speci malia Type: BLOOD SPECIMEN [facility] Address: [address] [place] [address] Performed By: #### L [id number] #### [facility] CLIA [id number] [address] [place], [place] [address] [place] [address] [place] Hematocrit (Bld) [Volume fraction] 41.9 % Normal 39.0-51.0 [facility] Comment on above: Order Comment: Deborah finley Type: BLOOD SPECIMEN [facility] Address: [address] [place] [address] Performed By: #### L [id number] #### [facility] CLIA [id number] [address] [place] [address] [place] Hemoglobin (Bld) [Mass/Vol] 13.8 g/dL Normal 13.0-17.0 [facility] Comment on above: Order Comment: Speci men Type: BLOOD SPECIMEN [facility] Address: [address] [place] [address] Performed By: #### L [id number] #### [facility] CLIA [id number] [address] [place] [address] [place] MCH (RBC) [Entitic mass] 29.9 pg Normal 26.0-34.0 [facility] Comment on above: Order Comment: Speci men Type: BLOOD SPECIMEN [facility] Address: [address] [place] [address] Performed By: #### L [id number] #### [facility] CLIA [id number] [address] [place] [address] [place] MCHC (RBC) [Mass/Vol] 32.9 g/dL Normal 30.5-36.0 [facility] Comment on above: Order Comment: Speci men Type: BLOOD SPECIMEN [facility] Address: [address] [place] [address] Performed By: #### L [id number] #### [facility] CLIA [id number] [address] [place] [address] [place] MCV (RBC) [Entitic vol] 90.7 fL Normal 80.0-100.0 [facility] Comment on above: Order Comment: Speci men Type: BLOOD SPECIMEN [facility] Address: [address] [place] [address] Performed By: #### L [id number] #### [facility] CLIA [id number] [address] [place] [address] [place] Nucleated RBC (Bld) [#/Vol] 10*3/uL Normal <0.01 [facility] Comment on above: Order Comment: Speci men Type: BLOOD SPECIMEN [facility] Address: [address] [place] [address] Performed By: #### L [id number] #### [facility] CLIA [id number] [address] [place] [address] [place] Platelet mean volume (Bld) [Entitic vol] 9.3 fL Normal 9.0-12.7 [facility] Comment on above: Order Comment: Speci men Type: BLOOD SPECIMEN [facility] Address: [address] [place] [address] Performed By: #### L [id number] #### [facility] CLIA [id number] [address] [place] [address] [place] Platelets (Bld) [#/Vol] 290 10*3/uL Normal 150-400 [facility] Comment on above: Order Comment: Speci men Type: BLOOD SPECIMEN [facility] Address: [address] [place] [address] Performed By: #### L [id number] #### [facility] CLIA [id number] [address] [place] [address] [place] RBC (Bld) [#/Vol] 4.62 10*6/uL Normal 4.20-6.00 [facility] Comment on above: Order Comment: Speci men Type: BLOOD SPECIMEN [facility] Address: [address] [place] [address] Performed By: #### L [id number] #### [facility] CLIA [id number] [address] [place] [address] [place] WBC (Bld) [#/Vol] 8.92 10*3/uL Normal 3.70-11.00 [facility] Comment on above: Order Comment: Speci men Type: BLOOD SPECIMEN [facility] Address: [address] [place] [address] Performed By: #### L [id number] #### [facility] CLIA [id number] [address] [place], [place] [address] [place] [address] [place] [facility] RAVINDER BY IFA WITH REFLEXon 06-25-2024 Interpretation and review of laboratory results Abnormal [facility] Nuclear Ab pattern (S) [Interp] Nuclear fine speckled [facility] Nuclear Ab Ql (S) Positive Abnormal Negative [facility] Comment on above: Anti-nuclear antibod y test is used as an aid in diagnosis of systemic autoimmune diseases. Where positive and clinically warranted, follow-up using disease-specific testing is recommended. Low positive titers are not uncommon with advanced age, certain chronic infections, and malignancies among others. Test methodology: Indirect fluorescence immunoassay (IFA) using HEp-2 cells. 1:160 Specimen Type: BLOOD SPECIMEN [facility] Address: [address] [place] [address] Original Ordering Provider: DI SOSA [facility] VIT B12 SERPL-MCNCon Cobalamin (Vitamin B12) [Mass/Vol] 499 pg/mL 232 - 1245 pg/mL [facility] Specimen Type: BLOOD SPECIMEN [facility] Address: [address] [place] [address] Original Ordering Provider: LELAND DANG [facility] COPPER BLOODon 06-25-2024 Copper [Mass/Vol] 115 ug/dL Normal 70-140 [facility] Comment on above: Order Comment: Speci men Type: BLOOD SPECIMENOrdering Facility: [facility] Address: [address] [place] [address] Result Comment: This test was developed, and its performance characteristics determined by the [facility] Department of Pathology and Laboratory Medicine. It has not been cleared or approved by the FDA. The [facility] Department of Pathology and Laboratory Medicine is regulated under CLIA as qualified to perform high-complexity testing. This test is used for clinical purposes. It should not be regarded as investigational or for research. Performed By: #### C CISCO, 5763-8 ####[facility] LABCLIA [id number] [address] [address] [place] Comprehensive metabolic 2000 panelon 06-25-2024 Albumin [Mass/Vol] 3.9 g/dL Normal 3.9-4.9 [facility] Comment on above: Order Comment: Speci men Type: BLOOD SPECIMENOrdering Facility: [facility] Address: [address] [place] [address] Performed By: #### 1 23-9, 2132-04, ####[facility] LABCLIA [id number] [place] [address] [place] ALP [Catalytic activity/Vol] 70 U/L Normal 38-113 [facility] Comment on above: Order Comment: Speci men Type: BLOOD SPECIMENOrdering Facility: [facility] Address: [address] [place] [address] Performed By: #### 1 239, 2132-04, ####[facility] LABCLIA [id number] [place] [address] [place] ALT [Catalytic activity/Vol] 24 U/L Normal 10-54 [facility] Comment on above: Order Comment: Speci men Type: BLOOD SPECIMENOrdering Facility: [facility] Address: [address] [place] [address] Performed By: #### 1 239, 2132-04, ####[facility] LABCLIA [id number] [address] [address] [place] Anion gap [Moles/Vol] 12 mmol/L Normal 8-15 [facility] Comment on above: Order Comment: Speci men Type: BLOOD SPECIMENOrdering Facility: [facility] Address: [address] [place] [address] Performed By: #### 1 9123-9, 2132-04, ####[facility] LABCLIA [id number] [place] [address] [place] AST [Catalytic activity/Vol] 15 U/L Normal 14-40 [facility] Comment on above: Order Comment: Speci men Type: BLOOD SPECIMENOrdering Facility: [facility] Address: [address] [place] [address] Performed By: #### 1 9123-9, 2132-04, ####[facility] LABCLIA [id number] [place] [address] [place] Bilirubin [Mass/Vol] 0.7 mg/dL Normal 0.2-1.3 [facility] Comment on above: Order Comment: Speci men Type: BLOOD SPECIMENOrdering Facility: [facility] Address: [address] [place] [address] Performed By: #### 1 91239, 2132-04, ####[facility] LABCLIA [id number] [place] [address] [place] Calcium [Mass/Vol] 9.1 mg/dL Normal 8.5-10.2 [facility] Comment on above: Order Comment: Speci men Type: BLOOD SPECIMENOrdering Facility: [facility] Address: [address] [place] [address] Performed By: #### 1 9123-9, 2132-04, ####[facility] LABCLIA [id number] [place] [address] [place] Chloride [Moles/Vol] 105 mmol/L Normal 98-107 [facility] Comment on above: Order Comment: Speci men Type: BLOOD SPECIMENOrdering Facility: [facility] Address: [address] [place] [address] Performed By: #### 1 9123-9, 2132-04, ####[facility] LABCLIA [id number] [place] [id number] [place] CO2 [Moles/Vol] 24 mmol/L Normal 22-30 [facility] Comment on above: Order Comment: Joeli malia Type: BLOOD SPECIMENOrdering Facility: [facility] Address: [address] [place] [address] Performed By: #### 1 9, 2132-04, ####[facility] LABCLIA [id number] [place] [address] [place] Creatinine [Mass/Vol] 0.62 mg/dL Low 0.73-1.22 [facility] Comment on above: Order Comment: Speci men Type: BLOOD SPECIMENOrdering Facility: [facility] Address: [address] [place] [address] Performed By: #### 1 9123-04, 2132-04, ####[facility] LABCLIA [id number] [place] [address] [place] Creatinine and Glomerular filtration rate.predicted panel (S/P/Bld) 119 mL/min/1.73m??? Normal >=60 [facility] Comment on above: Order Comment: Deborah finley Type: BLOOD SPECIMENOrdering Facility: [facility] Address: [address] [place] [address] Result Comment: Alexa mated Glomerular Filtration Rate [...] GFR. Performed By: #### 1 9, 2132-04, ####[facility] LABCLIA [id number] [place] [id number] [place] Glucose [Mass/Vol] 88 mg/dL Normal 74-99 [facility] Comment on above: Order Comment: Speci men Type: BLOOD SPECIMENOrdering Facility: [facility] Address: [address] [id number] Result Comment: The [place] Diabetes Association (ADA) provides guidance for cutoff [...] Standards of Medical Care in Diabetes 2016, [place] [employer]. Diabetes Care. 2016.39(Suppl 1). Performed By: #### 1 239, 2132-04, ####[facility] LABCLIA [id number] [place] [address] [place] Potassium [Moles/Vol] 3.6 mmol/L Low 3.7-5.1 [facility] Comment on above: Order Comment: Speci men Type: BLOOD SPECIMENOrdering Facility: [facility] Address: [address] [place], [place] [address] Performed By: #### 1 239, 2132-04, ####[facility] LABCLIA [id number] [place] [address] [place] Protein [Mass/Vol] 6.4 g/dL Normal 6.3-8.0 [facility] Comment on above: Order Comment: Speci men Type: BLOOD SPECIMENOrdering Facility: [facility] Address: [address] [place], [place] [address] Performed By: #### 1 239, 2132-04, ####[facility] LABCLIA [id number] [address] [address] [place] Sodium [Moles/Vol] 141 mmol/L Normal 136-144 [facility] Comment on above: Order Comment: Speci men Type: BLOOD SPECIMENOrdering Facility: [facility] Address: [address] [place] [address] Performed By: #### 1 9123-9, 9, 85603-9 ####[facility] LABCLIA [id number] [place] [address] [place] Urea nitrogen [Mass/Vol] 8 mg/dL Low 9-24 [facility] Comment on above: Order Comment: Speci men Type: BLOOD SPECIMENOrdering Facility: [facility] Address: [address] [place] [address] Performed By: #### 1 9123-9, 2132-04, 38868-8 ####[facility] LABCLIA [id number] [place] [address] [place] HIV 1+2 Ab IA Qlon 4 HIV 1 and 2 Ab IA.rapid Nom (S/P/Bld) Normal [facility] Comment on above: Order Comment: Speci men Type: BLOOD SPECIMEN [facility] Address: [address] [place] [address] Result Comment: Test not indicated. Performed By: #### L [id number] #### [facility] CLIA [id number] [address] [place] [address] [place] HIV 1+2 Ab+HIV1 p24 Ag IA Ql Non-Reactive Normal Nonreactive [facility] Comment on above: Order Comment: Speci men Type: BLOOD SPECIMEN [facility] Address: [address] [place] [address] Performed By: #### L [id number] #### [facility] CLIA [id number] [address] [place] [address] [place] HIV immunoassay testing algorithm interpretation (S/P/Bld) [Interp] Normal [facility] Comment on above: Order Comment: Speci men Type: BLOOD SPECIMEN [facility] Address: [address] [place] [address] Result Comment: No e vidence of HIV-1 or HIV-2 infection. Should recent infection be suspected, repeat testing may be considered 2-3 weeks after this draw. [place] Rev. Code 3701.243(E): This information has been [...] results or diagnoses. Performed By: #### L [id number] #### [facility] CLIA [id number] [address] [place] [address] [place] Magnesium SerPl-mCncon 06-25 Magnesium [Mass/Vol] 2.0 mg/dL Normal 1.7-2.3 [facility] Comment on above: Order Comment: Speci men Type: BLOOD SPECIMENOrdering Facility: [facility] Address: [address] [place] [address] Performed By: #### 1 9123-9, 2132-9, 56836-0 ####[facility] LABCLIA [id number] [place] [address] [place] Methylmalonate SerPl-sCncon 06-25-2024 Methylmalonate [Moles/Vol] 0.25 umol/L Normal <=0.40 [facility] Comment on above: Order Comment: [facility] Type: BLOOD SPECIMEN [facility] Address: [address] [place] [address] Result Comment: This test was developed, and its performance characteristics determined by the [facility] Department of Pathology and Laboratory Medicine. It has not been cleared or approved by the FDA. The [facility] Department of Pathology and Laboratory Medicine is regulated under CLIA as qualified to perform high-complexity testing. This test is used for clinical purposes. It should not be regarded as investigational or for research. Performed By: #### 1 3964-2 #### [facility] CLIA [id number] [address] [place] [address] [place] NUTRITIONon 06-25-2024 NUTRITION HNO ID: [id number] Author: OH HOBSON [address] Service: Nutrition Therapy [...] the wall. 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 [...] Weight Type: Admit weight Estimated kilocalorie needs: 6496-2588 Calorie Calculation Method: 10-15 kcals/kg Estimated protein [...] June 25, 2024 TIME: 1:00 PM Normal [facility] THERAPY NTon 06-25-2024 THERAPY NT HNO ID: [id number] Author: SANTA COFFEY, PT, DPT Service: Physical Therapy Author Type: Physical Therapist Type: Therapy (PT/OT/Speech/Resp) Filed: 06/25/2024 08:37 Note Text: Physical Therapy Evaluation Summary SERVICE DATE: 06/25/2024 SERVICE TIME: 0740 to 0819 ROOM: [place] [address] PT 6 Clicks Score: 24 DISCHARGE RECOMMENDATIONS [...] Weakness (generalized) TREATMENT INTERVENTIONS Evaluation, Therapeutic Activity (32655), Therapeutic Exercise (60908) Timed Code Treatment (minutes): 23 Skilled Treatment [...] June 25, 2024 TIME: 8:37 AM Normal [facility] VITAMIN B1 (THIAMINE), WHOLE BLOODon 06-25-2024 Thiamine (Bld) [Moles/Vol] 199.2 nmol/L Normal 84.3-213.3 [facility] Comment on above: Order Comment: Speci men Type: BLOOD SPECIMENOrdering Facility: [facility] Address: [address] [place] [address] Result Comment: This assay measures the concentration of thiamine diphosphate (TDP), the primary active form of vitamin B1. Approximately 90 percent of vitamin B1 present in whole blood is TDP. Thiamine and thiamine monophosphate, which comprise the remaining 10 percent, are not measured. This test was developed, and its performance characteristics determined by the [facility] Department of Pathology and Laboratory Medicine. It has not been cleared or approved by the FDA. The [facility] Department of Pathology and Laboratory Medicine is regulated under CLIA as qualified to perform high-complexity testing. This test is used for clinical purposes. It should not be regarded as investigational or for research. Performed By: #### B 1WB ####[facility] LABIA [id number] [place] [id number] [place] Vit B12 [facility] 024 Cobalamin (Vitamin B12) [Mass/Vol] 499 pg/mL Normal 232-1245 [facility] Comment on above: Order Comment: Speci men Type: BLOOD SPECIMENOrdering Facility: [facility] Address: [address] [place] [address] Performed By: #### 1 9123-9, 2132-9, 56834-4 ####[facility] [id number] [place] [address] [place] Zinc [facility] 06-25-2024 Zinc [Mass/Vol] 66 ug/dL Normal 60-120 [facility] Comment on above: Order Comment: Speci [facility] Type: BLOOD SPECIMENOrdering Facility: [facility] Address: [address] [place] [address] Result Comment: This test was developed, and its performance characteristics determined by the [facility] Department of Pathology and Laboratory Medicine. It has not been cleared or approved by the FDA. The [facility] Department of Pathology and Laboratory Medicine is regulated under CLIA as qualified to perform high-complexity testing. This test is used for clinical purposes. It should not be regarded as investigational or for research. Performed By: #### C OPMAGALIE, 5763-8 ####[facility] [id number] [place] [address] [place] ACETYLCHOLINE REC BINDING AB on 06-24-2024 ACETYLCHOLINE BINDING, QUAL Negative Normal Negative [facility] Comment on above: Order Comment: Speci men Type: BLOOD SPECIMENOrdering Facility: [facility] Address: [address] [place] [address] Result Comment: Anti -acetylcholine receptor binding antibody test is used as an aid in diagnosis of myasthenia gravis. A negative result cannot exclude myasthenia gravis. Clinical correlation is required. Performed By: #### A CHRAB ####[facility] LABIA [id number] [place] [address] [place] Acetylcholine receptor binding Ab (S) [Moles/Vol] <0.02 Normal <0.21 [facility] Comment on above: Order Comment: Speci men Type: BLOOD SPECIMENOrdering Facility: [facility] Address: [address] [place] [address] Performed By: #### A CHRAB ####[facility] LABCLIA [id number] [place] [address] [place] RAVINDER BY IFA WITH REFLEXon Nuclear Ab pattern (S) [Interp] Nuclear fine speckled Normal [facility] Comment on above: Order Comment: Speci men Type: BLOOD SPECIMENOrdering Facility: [facility] Address: [address] [place] [address] Performed By: #### 5 1775-5, 84258-4, 41419-6, 95324-0, 05254-4, 63397-0, 43355-8, ANAIFR, 88315-9, 35930-8 ####[facility] LABIA [id number] [address] [place] Nuclear Ab Ql (S) Positive Abnormal Negative [facility] Comment on above: Order Comment: Speci men Type: BLOOD SPECIMENOrdering Facility: [facility] Address: [address] [place] [address] Result Comment: Anti -nuclear antibody test is used as an aid in diagnosis of systemic autoimmune diseases. Where positive and clinically warranted, follow-up using disease-specific testing is recommended. Low positive titers are not uncommon with advanced age, certain chronic infections, and malignancies among others. Test methodology: Indirect fluorescence immunoassay (IFA) using HEp-2 cells. 1:160 Performed By: #### 5 1775-5, 54404-5, 11077-5, 95908-4, 94284-7, 03344-9, 11508-2, ANAIFR, 20898-9, 78463-6 ####[facility] LABCLIA [id number] [place] [id number] [place] C3 SerPl-ncon 06-24-2024 Complement C3 [Mass/Vol] 154 mg/dL Normal 86-166 [facility] Comment on above: Order Comment: Speci men Type: BLOOD SPECIMENOrdering Facility: [facility] Address: [address] [place] [address] Performed By: #### 3 016-3, 4498-2, 2157-01, 1987-12, , , 4485-04 ####[facility] LABIA [id number] [place] [address] [place] [facility] Complement C4 [Mass/Vol] 24 mg/dL Normal 13-46 [facility] Comment on above: Order Comment: Speci men Type: BLOOD SPECIMENOrdering Facility: [facility] Address: [address] [place] [address] Performed By: #### 3 016-3, 4498-2, 2157-01, 1987-12, , , 9 ####[facility] [id number] [place] [address] [place] CBC W Auto Differential pane l (Bld)on 06-24-2024 Basophils (Bld) [#/Vol] 0.04 10*3/uL Normal <0.11 [facility] Comment on above: Order Comment: Speci men Type: BLOOD SPECIMENOrdering Facility: [facility] Address: [address] [place] [address] Performed By: #### 5 5454-3, 72548-6, 4537-7 ####[facility] LABIA [id number] [place] [address] [place] Basophils/100 WBC (Bld) 0.5 % Normal [facility] Comment on above: Order Comment: Speci men Type: BLOOD SPECIMENOrdering Facility: [facility] Address: [address] [place] [address] Performed By: #### 5 5454-3, 03171-2, 7-7 ####[facility] LABCLIA [id number] [place] [address] [place] Differential cell count method Nom (Bld) Auto Normal [facility] Comment on above: Order Comment: Speci men Type: BLOOD SPECIMENOrdering Facility: [facility] Address: [address] [place] [address] Performed By: #### 5 5454-3, 07787-3, 7 ####[facility] LABCLIA [id number] [place] [address] [place] Eosinophils (Bld) [#/Vol] 0.17 10*3/uL Normal <0.46 [facility] Comment on above: Order Comment: Speci men Type: BLOOD SPECIMENOrdering Facility: [facility] Address: [address] [place] [address] Performed By: #### 5 5454-3, 67699-3, 7 ####[facility] LABIA [id number] [place] [address] [place] Eosinophils/100 WBC (Bld) 2.0 % Normal [facility] Comment on above: Order Comment: Speci men Type: BLOOD SPECIMENOrdering Facility: [facility] Address: [address] [place] [address] Performed By: #### 5 5454-3, 33596-0, 7 ####[facility] LABIA [id number] [place] [address] [place] Erythrocyte distribution width (RBC) [Ratio] 12.3 % Normal 11.5-15.0 [facility] Comment on above: Order Comment: Speci men Type: BLOOD SPECIMENOrdering Facility: [facility] Address: [address] [place] [address] Performed By: #### 5 5454-3, 49659-8, 7 ####[facility] LABCLIA [id number] [place] [address] [place] Hematocrit (Bld) [Volume fraction] 46.2 % Normal 39.0-51.0 [facility] Comment on above: Order Comment: Speci men Type: BLOOD SPECIMENOrdering Facility: [facility] Address: [address] [place] [address] Performed By: #### 5 5454-3, 35434-6, 7 ####[facility] LABCLIA [id number] [place] [address] [place] Hemoglobin (Bld) [Mass/Vol] 15.2 g/dL Normal 13.0-17.0 [facility] Comment on above: Order Comment: Speci men Type: BLOOD SPECIMENOrdering Facility: [facility] Address: [address] [place] [address] Performed By: #### 5 5454-3, 84606-9, 7 ####[facility] LABIA [id number] [place] [address] [place] Immature granulocytes (Bld) [#/Vol] 0.04 10*3/uL Normal <0.10 [facility] Comment on above: Order Comment: Speci men Type: BLOOD SPECIMENOrdering Facility: [facility] Address: [address] [place] [address] Performed By: #### 5 5454-3, 27580-8, 7 ####[facility] LABIA [id number] [place] [address] [place] Immature granulocytes/100 WBC (Bld) 0.5 % Normal [facility] Comment on above: Order Comment: Speci men Type: BLOOD SPECIMENOrdering Facility: [facility] Address: [address] [place] [address] Performed By: #### 5 5454-3, 80269-0, 7 ####[facility] LABCLIA [id number] [address] [address] [place] Lymphocytes (Bld) [#/Vol] 2.13 10*3/uL Normal 1.00-4.00 [facility] Comment on above: Order Comment: Speci men Type: BLOOD SPECIMENOrdering Facility: [facility] Address: [address] [place] [address] Performed By: #### 5 5454-3, 07005-5, 4537-7 ####[facility] LABCLIA [id number] [place] [address] [place] Lymphocytes/100 WBC (Bld) 25.0 % Normal [facility] Comment on above: Order Comment: Speci men Type: BLOOD SPECIMENOrdering Facility: [facility] Address: [address] [place] [address] Performed By: #### 5 5454-3, 48907-8, 4537-7 ####[facility] LABCLIA [id number] [place] [address] [place] MCH (RBC) [Entitic mass] 29.4 pg Normal 26.0-34.0 [facility] Comment on above: Order Comment: Speci men Type: BLOOD SPECIMENOrdering Facility: [facility] Address: [address] [place] [address] Performed By: #### 5 5454-3, 62937-6, 4537-7 ####[facility] LABCLIA [id number] [place] [id number] [place] MCHC (RBC) [Mass/Vol] 32.9 g/dL Normal 30.5-36.0 [facility] Comment on above: Order Comment: Speci men Type: BLOOD SPECIMENOrdering Facility: [facility] Address: [address] [place] [address] Performed By: #### 5 5454-3, 06742-3, 4537-7 ####[facility] LABCLIA [id number] [address] [address] [place] MCV (RBC) [Entitic vol] 89.4 fL Normal 80.0-100.0 [facility] Comment on above: Order Comment: Speci men Type: BLOOD SPECIMENOrdering Facility: [facility] Address: [address] [place] [address] Performed By: #### 5 5454-3, 20767-2, 4537-7 ####[facility] LABCLIA [id number] [place] [address] [place] Monocytes (Bld) [#/Vol] 0.57 10*3/uL Normal <0.87 [facility] Comment on above: Order Comment: Speci men Type: BLOOD SPECIMENOrdering Facility: [facility] Address: [address] [place] [address] Performed By: #### 5 5454-3, 26114-3, 7 ####[facility] LABIA [id number] [place] [address] [place] Monocytes/100 WBC (Bld) 6.7 % Normal [facility] Comment on above: Order Comment: Speci men Type: BLOOD SPECIMENOrdering Facility: [facility] Address: [address] [place] [address] Performed By: #### 5 5454-3, 69097-5, 4536-7 ####[facility] LABCLIA [id number] [place] [id number] [place] Neutrophils (Bld) [#/Vol] 5.56 10*3/uL Normal 1.45-7.50 [facility] Comment on above: Order Comment: Speci men Type: BLOOD SPECIMENOrdering Facility: [facility] Address: [address] [place] [address] Performed By: #### 5 5454-3, 06461-1, 4536-7 ####[facility] LABCLIA [id number] [place] [address] [place] Neutrophils/100 WBC (Bld) 65.3 % Normal [facility] Comment on above: Order Comment: Speci men Type: BLOOD SPECIMENOrdering Facility: [facility] Address: [address] [place] [address] Performed By: #### 5 5454-3, 41974-9, 4537-7 ####[facility] LABCLIA [id number] [place], [place] [address] [place] Nucleated RBC (Bld) [#/Vol] 10*3/uL Normal <0.01 [facility] Comment on above: Order Comment: Speci men Type: BLOOD SPECIMENOrdering Facility: [facility] Address: [address] [place] [address] Performed By: #### 5 5454-3, 38371-1, 4536-7 ####[facility] LABCLIA [id number] [place] [address] [place] Nucleated RBC/100 WBC (Bld) [Ratio] 0.0 /100 WBC Normal [facility] Comment on above: Order Comment: Speci men Type: BLOOD SPECIMENOrdering Facility: [facility] Address: [address] [place] [address] Performed By: #### 5 5454-3, 78829-0, 7-7 ####[facility] LABCLIA [id number] [place] [address] [place] Platelet mean volume (Bld) [Entitic vol] 9.1 fL Normal 9.0-12.7 [facility] Comment on above: Order Comment: Speci men Type: BLOOD SPECIMENOrdering Facility: [facility] Address: [address] [place] [address] Performed By: #### 5 5454-3, 61769-6, 7-7 ####[facility] LABCLIA [id number] [place] [address] [place] Platelets (Bld) [#/Vol] 333 10*3/uL Normal 150-400 [facility] Comment on above: Order Comment: Speci men Type: BLOOD SPECIMENOrdering Facility: [facility] Address: [address] [place] [address] Performed By: #### 5 5454-3, 80231-0, 4537-7 ####[facility] LABIA [id number] [place] [address] [place] RBC (Bld) [#/Vol] 5.17 10*6/uL Normal 4.20-6.00 [facility] Comment on above: Order Comment: Speci men Type: BLOOD SPECIMENOrdering Facility: [facility] Address: [address] [place] [address] Performed By: #### 5 5454-3, 06862-7, 4537-7 ####[facility] LABIA [id number] [place] [address] [place] WBC (Bld) [#/Vol] 8.51 10*3/uL Normal 3.70-11.00 [facility] Comment on above: Order Comment: Speci men Type: BLOOD SPECIMENOrdering Facility: [facility] Address: [address] [place] [address] Performed By: #### 5 5454-3, 89409-9, 4537-7 ####[facility] LABIA [id number] [place] [address] [place] CK SerPl-cCncon 06-24-2024 CK [Catalytic activity/Vol] 43 U/L Low 51-298 [facility] Comment on above: Order Comment: Speci men Type: BLOOD SPECIMENOrdering Facility: [facility] Address: [address] [place] [address] Performed By: #### 1 1572-5, 2157-6 ####[facility] LABCLIA [id number] [place] [address] [place] CK [Catalytic activity/Vol] 49 U/L Low 51-298 [facility] Comment on above: Order Comment: Speci men Type: BLOOD SPECIMENOrdering Facility: [facility] Address: [address] [place] [address] Performed By: #### 3 016-3, 4498-2, 2157-6, 1987-5, 44185-8, 33902-7, 4485-9 ####[facility] LABCLIA [id number] [place] [address] [place] CRP SerPl-mCncon 06-24-2024 CRP [Mass/Vol] 1.2 mg/dL High <0.9 [facility] Comment on above: Order Comment: Speci men Type: BLOOD SPECIMEN [facility] Address: [address] [place] [address] Performed By: #### L [id number] #### [facility] CLIA [id number] [address] [place] [address] [place] Centromere Ab IF Ql (S)on Centromere Ab Qn (S) <0.2 Normal <1.0 [facility] Comment on above: Order Comment: Speci malia Type: BLOOD SPECIMENOrdering Facility: [facility] Address: [address] [place] [address] Result Comment: Anti -centromere antibody is used as in aid in diagnosis of systemic sclerosis. Clinical correlation is required. Test Methodology: Multiplex flow immunoassay. Performed By: #### 5 1775-5, 99403-6, 72093-0, 79245-5, 51055-4, 93285-6, 42095-5, ANAIFR, 63442-6, 21729-8 ####[facility] LABCLIA [id number] [place] [address] [place] CENTROMERE AB QUAL Negative Normal Negative [facility] Comment on above: Order Comment: Speci men Type: BLOOD SPECIMENOrdering Facility: [facility] Address: [address] [place] [address] Performed By: #### 5 1775-5, 44214-8, 03124-7, 14472-6, 15634-7, 88811-9, 42652-5, ANAIFR, 80221-8, 15028-7 ####[facility] LABCLIA [id number] [place] [address] [place] Chromatin Ab Qnon 06-24-2024 CHROMATIN AB QUAL Negative Normal Negative [facility] Comment on above: Order Comment: Speci men Type: BLOOD SPECIMENOrdering Facility: [facility] Address: [address] [place] [address] Performed By: #### 5 1775-5, 46356-5, 79222-4, 08242-1, 92632-7, 21773-8, 42281-1, ANAIFR, 90635-1, 74149-1 ####[facility] LABCLIA [id number] [place] [address] [place] Chromatin Ab SerPl-aCncon Chromatin Ab Qn <0.2 Normal <1.0 [facility] Comment on above: Order Comment: Speci men Type: BLOOD SPECIMENOrdering Facility: [facility] Address: [address] [place] [address] Result Comment: Test Methodology: Multiplex flow immunoassay. Performed By: #### 5 1775-5, 11157-7, 20130-8, 24625-9, 01236-8, 41343-5, 48042-7, ANAIFR, 19836-5, 08438-4 ####[facility] LABCLIA [id number] [place] [address] [place] Comprehensive metabolic 2000 panelon 06-24-2024 Albumin [Mass/Vol] 4.5 g/dL Normal 3.9-4.9 [facility] Comment on above: Order Comment: Speci men Type: BLOOD SPECIMENOrdering Facility: [facility] Address: [address] [place] [address] Performed By: #### 3 016-3, 4498-2, 2157-01, 1987-12, , , 4485-04 ####[facility] LABCLIA [id number] [address] [address] [place] ALP [Catalytic activity/Vol] 83 U/L Normal 38-113 [facility] Comment on above: Order Comment: Speci men Type: BLOOD SPECIMENOrdering Facility: [facility] Address: [address] [place] [address] Performed By: #### 3 016-3, 4498-2, 2157-01, 1987-12, , , 4485-04 ####[facility] LABCLIA [id number] [place] [address] [place] ALT [Catalytic activity/Vol] 27 U/L Normal 10-54 [facility] Comment on above: Order Comment: Speci men Type: BLOOD SPECIMENOrdering Facility: [facility] Address: [address] [place] [address] Performed By: #### 3 016-3, 4498-2, 2157-01, 1987-12, , , 4485-04 ####[facility] LABCLIA [id number] [place] [address] [place] Anion gap [Moles/Vol] 13 mmol/L Normal 8-15 [facility] Comment on above: Order Comment: Speci men Type: BLOOD SPECIMENOrdering Facility: [facility] Address: [address] [place] [id number] Performed By: #### 3 016-3, 4498-2, 2157-01, 1987-12, , , 4485-04 ####[facility] LABCLIA [id number] [place] [address] [place] AST [Catalytic activity/Vol] 21 U/L Normal 14-40 [facility] Comment on above: Order Comment: Speci men Type: BLOOD SPECIMENOrdering Facility: [facility] Address: [address] [place] [address] Performed By: #### 3 016-3, 4498-2, 2157-01, 1987-12, , , 4485-04 ####[facility] LABCLIA [id number] [place] [address] [place] Bilirubin [Mass/Vol] 0.7 mg/dL Normal 0.2-1.3 [facility] Comment on above: Order Comment: Speci men Type: BLOOD SPECIMENOrdering Facility: [facility] Address: [address] [place] [address] Performed By: #### 3 016-3, 4498-2, 2157-01, 1987-12, , , 4485-04 ####[facility] LABCLIA [id number] [place] [address] [place] Calcium [Mass/Vol] 9.8 mg/dL Normal 8.5-10.2 [facility] Comment on above: Order Comment: Speci men Type: BLOOD SPECIMENOrdering Facility: [facility] Address: [address] [place] [address] Performed By: #### 3 016-3, 4498-2, 2157-01, 1987-12, , , 4485-04 ####[facility] LABCLIA [id number] [place] [address] [place] Chloride [Moles/Vol] 106 mmol/L Normal 98-107 [facility] Comment on above: Order Comment: Speci men Type: BLOOD SPECIMENOrdering Facility: [facility] Address: [address] [place] [address] Performed By: #### 3 016-3, 4498-2, 2157-01, 1987-12, , , 4485-04 ####[facility] LABIA [id number] [place] [address] [place] CO2 [Moles/Vol] 23 mmol/L Normal 22-30 [facility] Comment on above: Order Comment: Deborah finley Type: BLOOD SPECIMENOrdering Facility: [facility] Address: [address] [place] [address] Performed By: #### 3 016-3, 4498-2, 2157-01, 1987-12, 17654-2, , 4485-04 ####[facility] LABIA [id number] [place] [address] [place] Creatinine [Mass/Vol] 0.61 mg/dL Low 0.73-1.22 [facility] Comment on above: Order Comment: Deborah finley Type: BLOOD SPECIMENOrdering Facility: [facility] Address: [address] [place] [address] Performed By: #### 3 016-3, 4498-2, 2157-01, 1987-12, , , 4485-04 ####[facility] LABIA [id number] [address] [place] Creatinine and Glomerular filtration rate.predicted panel (S/P/Bld) 120 mL/min/1.73m??? Normal >=60 [facility] Comment on above: Order Comment: Deborah finley Type: BLOOD SPECIMENOrdering Facility: [facility] Address: [address] [place] [address] Result Comment: Alexa mated Glomerular Filtration Rate [...] 016-3, 4498-2, 2157-01, 1987-12, , , 4485-04 ####[facility] LABCLIA [id number] [address] [address] [place] Glucose [Mass/Vol] 127 mg/dL High 74-99 [facility] Comment on above: Order Comment: Speci men Type: BLOOD SPECIMENOrdering Facility: [facility] Address: [address] [place] [address] Result Comment: The [place] Diabetes Association (ADA) provides guidance for cutoff [...] Standards of Medical Care in Diabetes 2016, [place] Diabetes Association. Diabetes Care. 2016.39(Suppl 1). Performed By: #### 3 016-3, 4498-2, 2157-01, 1987-12, , , 4485-04 ####[facility] LABIA [id number] [address] [address] [place] Potassium [Moles/Vol] 3.8 mmol/L Normal 3.7-5.1 [facility] Comment on above: Order Comment: Speci men Type: BLOOD SPECIMENOrdering Facility: [facility] Address: [address] [place] [place] [address] Performed By: #### 3 016-3, 4498-2, 2157-01, 1987-12, , , 4485-04 ####[facility] LABIA [id number] [address] [address] [place] Protein [Mass/Vol] 7.5 g/dL Normal 6.3-8.0 [facility] Comment on above: Order Comment: Speci men Type: BLOOD SPECIMENOrdering Facility: [facility] Address: [address] [place] [address] Performed By: #### 3 016-3, 4498-2, 2157-01, 1987-12, , , 9 ####[facility] LABCLIA [id number] [place] [address] [place] Sodium [Moles/Vol] 142 mmol/L Normal 136-144 [facility] Comment on above: Order Comment: Speci men Type: BLOOD SPECIMENOrdering Facility: [facility] Address: [address] [place] [address] Performed By: #### 3 016-3, 4498-2, 2157-01, 1987-12, , , 4485-04 ####[facility] LABCLIA [id number] [place] [address] [place] Urea nitrogen [Mass/Vol] 7 mg/dL Low 9-24 [facility] Comment on above: Order Comment: Speci men Type: BLOOD SPECIMENOrdering Facility: [facility] Address: [address] [place] [address] Performed By: #### 3 016-3, 4498-2, 2157-01, 1987-12, , , 4485-04 ####[facility] LABCLIA [id number] [place] [address] [place] Cyclic citrullinated peptide IgG Qnon 06-24-2024 CCP ANTIBODY IGG QUALITATIVE Positive Abnormal Negative [facility] Comment on above: Order Comment: Speci men Type: BLOOD SPECIMEN [facility] Address: [address] [place] [address] Performed By: #### L [id number] #### [facility] CLIA [id number] [address] [place] [address] [place] DNA double strand Ab IA Qn ( S)on 06-24-2024 DNA ANTIBODY 81 IU/mL Normal <=200 [facility] Comment on above: Order Comment: Speci men Type: BLOOD SPECIMENOrdering Facility: [facility] Address: [address] [place] [address] Result Comment: Nega tive: <200 IU/mL Equivocal: 201-300 IU/mL Moderate Positive: 301-800 IU/mL Strong Positive: >801 IU/mL Performed By: #### 5 1775-5, 20827-0, 31789-5, 37847-9, 06011-5, 57885-5, 73495-5, ANAIFR, 03326-5, 71065-1 ####[facility] LABCLIA [id number] [place] [address] [place] DNA ANTIBODY QUALITATIVE INTERPRETATION Negative Normal Negative [facility] Comment on above: Order Comment: Speci men Type: BLOOD SPECIMENOrdering Facility: [facility] Address: [address] [place] [address] Performed By: #### 5 1775-5, 75067-1, 89424-6, 93796-5, 78902-3, 41769-1, 47904-2, ANAIFR, 89623-8, 34764-4 ####[facility] LABCLIA [id number] [place] [address] [place] ED NOTEon 06-24-2024 ED NOTE HNO ID: [id number] Author: WINTER WILSON, FERNANAD Service: Emergency Medicine Author Type: Registered Nurse Type: ED Notes Filed: 06/24/2024 14:05 Note Text: Pt reports symptoms since December. Reports he brooks been having increasing numbness/weakness to all his extremities. Normal [facility] ED PROV NOTEon 06-24-2024 ED PROV NOTE HNO ID: [id number] Author: DI SOSA DO, DPM Service: Emergency [...] C2-3 and C3-4. He was seen in [facility] who obtained MRI brain and c-spine in [...] recommended he seek a second opinion at [facility]'s rheumatology center. He was most recently seen by neurology in April who recommended repeating an EMG and to follow up in 3 months. 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 Of note, patient has been unable to [...] is intact (more content not included)... Normal [facility] ED Triage Noteon 06-24-2024 ED Triage Note HNO ID: [id number] Author: DAVE PAGAN MD Service: Emergency Medicine [...] EMG normal. Patient was recently seen at [facility] and then transferred to [facility] 03/30/2024 for progressive bilateral distal upper extremity [...] Rate, Westergren SIGNATURE: Dave Pagan MD Normal [facility] VIJAY Jo1 Ab Ser-aCncon 2023 Ivanna-1 extractable nuclear Ab Qn (S) <0.2 Normal <1.0 [facility] Comment on above: Order Comment: Speci men Type: BLOOD SPECIMENOrdering Facility: [facility] Address: [address] [place] [address] Performed By: #### 5 1775-5, 73577-5, 27115-7, 91816-0, 12434-7, 03466-6, 12606-0, ANAIFR, 73065-7, 10083-0 ####[facility] LABCLIA [id number] [place] [address] [place] VIJAY BUSINESS CONTINUITY GLOBAL DIRECTOR Ab Ser-aCncon 2023 Ribonucleoprotein extractable nuclear Ab Qn (S) <0.2 Normal <1.0 [facility] Comment on above: Order Comment: Joeli malia Type: BLOOD SPECIMENOrdering Facility: [facility] Address: [address] [place] [address] Performed By: #### 5 1775-5, 62940-0, 97356-6, 80430-8, 19534-0, 68062-8, 67890-0, ANAIFR, 95976-9, 09509-0 ####[facility] LABCLIA [id number] [place] [address] [place] Ribonucleoprotein extractable nuclear Ab Qn (S) 0.5 AI Normal <1.0 [facility] Comment on above: Order Comment: Speci men Type: BLOOD SPECIMENOrdering Facility: [facility] Address: [address] [place] [address] Performed By: #### 5 1775-5, 31120-4, 09134-2, 27609-1, 08620-9, 60549-9, 09659-2, ANAIFR, 00603-6, 60263-3 ####[facility] LABCLIA [id number] [place] [address] [place] VIJAY SM IgG Ser-aCncon 2023 Kennedy extractable nuclear IgG Qn (S) <0.2 Normal <1.0 [facility] Comment on above: Order Comment: Speci men Type: BLOOD SPECIMENOrdering Facility: [facility] Address: [address] [place] [address] Performed By: #### 5 1775-5, 52170-4, 51374-9, 20881-2, 55328-7, 39326-2, 46835-9, ANAIFR, 40742-0, 07220-0 ####[facility] LABCLIA [id number] [place] [address] [place] VIJAY SS-A Ab Ser-aCncon 06-24 Sjogrens syndrome-A extractable nuclear Ab Qn (S) <0.2 Normal <1.0 [facility] Comment on above: Order Comment: Speci men Type: BLOOD SPECIMENOrdering Facility: [facility] Address: [address] [place] [address] Result Comment: Test Methodology: Multiplex flow immunoassay. Performed By: #### 5 1775-5, 68963-8, 09229-1, 91464-3, 73714-1, 19261-9, 98058-6, ANAIFR, 24053-7, 01506-8 ####[facility] LABCLIA [id number] [place] [address] [place] VIJAY SS-B Ab Ser-aCncon 06-24 Sjogrens syndrome-B extractable nuclear Ab Qn (S) <0.2 Normal <1.0 [facility] Comment on above: Order Comment: Deborah finley Type: BLOOD SPECIMENOrdering Facility: [facility] Address: [address] [place] [address] [place] [address] Result Comment: Anti -SSB (anti-La) antibody is used as an aid in diagnosis of a variety of systemic autoimmune diseases, especially for Sjogren's syndrome and systemic lupus erythematosus. Clinical correlation is required. Test Methodology: Multiplex flow immunoassay. Performed By: #### 5 1775-5, 48841-0, 48157-7, 27052-8, 00154-2, 37524-4, 36873-3, ANAIFR, 18768-8, 07531-3 ####[facility] LABIA [id number] [place] [address] [place] ESR Westergren method (Bld) [Velocity]on 06-24-2024 ESR (Bld) [Velocity] 8 mm/h Normal 0-15 [facility] Comment on above: Order Comment: Deborah finley Type: BLOOD SPECIMENOrdering Facility: [facility] Address: [address] [place] [address] Performed By: #### 5 5454-3, 10529-0, 4537-7 ####[facility] LABIA [id number] [place] [address] [place] HISTORY PHYSICALon 4 HISTORY PHYSICAL HNO ID: [id number] Author: LELAND DANG MD Service: General Internal [...] 06/25/2024 Time: 6:30 PM -- [facility] MEDICINE HISTORY AND PHYSICAL EXAM SERVICE DATE: 06/25/2024 SERVICE TIME: 11:51 AM Primary Care Physician: Cecy Hernandez CNP, [employer] COVERAGE: [facility] COVERAGE: Days: [phone], please page Estiven Palmer for patient issues. [...] the wall. 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 [...] he has looked for medical assistance. A administrative dietitian recently informed him that he does not have rheumatoid arthritis, despite having been diagnosed with it decades ago. 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 He was seen in [facility] who obtained MRI brain and c-spine in [...] recommended he seek a second opinion at [facility]'s rheumatology center. 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 Social history: Patient has been unable to [...] file. No (more content not included)... Normal [facility] HbA1c (Bld)on 06-24-2024 Average glucose Estimated from glycated hemoglobin (Bld) [Mass/Vol] 134 mg/dL Normal [facility] Comment on above: Order Comment: Deborah finley Type: BLOOD SPECIMENOrdering Facility: [facility] Address: [address] [place] [address] Result Comment: eAG: (Estimated average glucose) is a calculated value from HgbA1c and is business office representative of the average blood glucose level in the last 2-3 month period. Performed By: #### 5 5454-3, 91004-3, 453-7 ####[facility] LABCLIA [id number] [place] [address] [place] HbA1c (Bld) [Mass fraction] 6.3 % High 4.3-5.6 [facility] Comment on above: Order Comment: Deborah finley Type: BLOOD SPECIMENOrdering Facility: [facility] Address: [address] [place] [address] Result Comment: [place] Diabetes Association guidelines indicate that patients with HgbA1c in the range 5.7-6.4% are at increased risk for development of diabetes, and intervention by lifestyle modification may be beneficial. HgbA1c greater or equal to 6.5% is considered diagnostic of diabetes. Performed By: #### 5 5454-3, 94361-9, 4536-7 ####[facility] LABCLIA [id number] [place] [id number] [place] Ivanna-1 extractable nuclear Ab Qn (S)on 06-24-2024 IVANNA 1 ANTIBODY QUAL Negative Normal Negative [facility] Comment on above: Order Comment: Deborah finley Type: BLOOD SPECIMENOrdering Facility: [facility] Address: [address] [place] [address] Result Comment: Anti -IVANNA-1 antibody is used as an aid in diagnosis of polymyositis and dermatomyositis especially with pulmonary involvement. A negative result cannot rule out polymyositis or dermatomyositis. Clinical correlation is required. Test Methodology: Multiplex flow immunoassay. Performed By: #### 5 1775-5, 91947-3, 33871-2, 60594-1, 09852-8, 42600-9, 83554-3, ANAIFR, 12164-0, 27577-3 ####[facility] LABCLIA [id number] [address] [place] Magnesium SerPl-mCncon 06-24 Magnesium [Mass/Vol] 1.8 mg/dL Normal 1.7-2.3 [facility] Comment on above: Order Comment: Speci men Type: BLOOD SPECIMENOrdering Facility: [facility] Address: [address] [place] [address] Performed By: #### 3 016-3, 4498-2, 2157-6, 1987-5, 41132-0, 77113-4, 598-9 ####[facility] LABCLIA [id number] [place] [id number] [place] NURSING PROGon 06-24-2024 NURSING PROG HNO ID: [id number] Author: LINDY DUCKWORTH RN Service: ? Author Type: Registered Nurse Type: Nursing Progress Note Filed: 06/24/2024 19:04 Note Text: Transfer Note: PATIENT NAME: Bhumika Umana Patient Location: [place] [address] Room: [place] [address] Patient transferred into room/unit [facility] in stable condition. Actions taken: No futher actions taken at this time. Will continue to monitor and check with patient. [facility] [facility] Treponema pallidu m IgG and IgM [Interp]on 06-24-2024 T. pallidum IgG+IgM IA Ql (S) Non-Reactive Normal Nonreactive [facility] Comment on above: Order Comment: Speci men Type: BLOOD SPECIMEN Ordering Facility: [facility] Address: [address] [place] [address] Performed By: #### L [id number] #### [facility] CLIA [id number] [address] [place] [address] [place] Reagin+T pallidum IgG+IgM Se rPl-Impon 06-24-2024 Reagin and Treponema pallidum IgG and IgM [Interp] Cannot exclude recent Treponemal infection if specimen collected within 7-10 days after appearance of suspect lesions or 2-3 weeks after an exposure. Clinical correlation is required. Normal [facility] Comment on above: Order Comment: Speci men Type: BLOOD SPECIMEN Ordering Facility: [facility] Address: [address] [place] [address] Performed By: #### L [id number] #### [facility] CLIA [id number] [address] [place] [address] [place] Rheumatoid fact SerPl-aCncon 06-24-2024 Rheumatoid factor Qn 17 [IU]/mL High <16 [facility] Comment on above: Order Comment: Speci men Type: BLOOD SPECIMENOrdering Facility: [facility] Address: [address] [place] [address] Performed By: #### 1 1572-5, 2157-6 ####[facility] [id number] [place] [address] [place] Ribonucleoprotein extractabl e nuclear Ab Qn (S)on 06-24-2024 ANTI-BUSINESS CONTINUITY GLOBAL DIRECTOR QUAL Negative Normal Negative [facility] Comment on above: Order Comment: Speci men Type: BLOOD SPECIMENOrdering Facility: [facility] Address: [address] [place] [address] Performed By: #### 5 1775-5, 53914-2, 51434-9, 91905-4, 83550-1, 98476-2, 15653-7, ANAIFR, 39540-2, 56634-8 ####[facility] [id number] [place] [address] [place] RIBOSOMAL BUSINESS CONTINUITY GLOBAL DIRECTOR QUAL Negative Normal Negative [facility] Comment on above: Order Comment: Speci men Type: BLOOD SPECIMENOrdering Facility: [facility] Address: [address] [place] [address] Result Comment: Anti -Ribosomal RNA (Ribosomal P) antibody is used as an aid in diagnosis of systemic autoimmune diseases especially systemic lupus erythematosus and mixed connective tissue disease. Cross-reactivity with Anti-kennedy antibody is not uncommon. Clinical correlation is required. Test Methodology: Multiplex flow immunoassay. Performed By: #### 5 1775-5, 68034-8, 30986-4, 72041-7, 73691-3, 81914-7, 65850-5, ANAIFR, 19352-2, 11680-4 ####[facility]IA [id number] [place] [id number] [place] SCL-70 extractable nuclear I gG IA Qn (S)on 06-24-2024 SCLERODERMA AB QUAL Negative Normal Negative [facility] Comment on above: Order Comment: Deborah finley Type: BLOOD SPECIMENOrdering Facility: [facility] Address: [address] [place] [address] Performed By: #### 5 1775-5, 79341-4, 45718-9, 46576-3, 45340-3, 30520-8, 78583-9, ANAIFR, 59140-7, 44655-6 ####[facility]IA [id number] [address] [address] [place] SCLERODERMA IGG AB <0.2 Normal <1.0 [facility] Comment on above: Order Comment: Deborah finley Type: BLOOD SPECIMENOrdering Facility: [facility] Address: [address] [place] [address] Result Comment: Scl- 70/Scleroderma antibody test is used as an aid in diagnosis of systemic sclerosis especially the diffuse cutaneous form. A negative result cannot rule out systemic sclerosis. The final interpretation should consider clinical picture and other test results such as anti-centromere antibody. Test Methodology: Multiplex flow immunoassay. Performed By: #### 5 1775-5, 43578-3, 24786-1, 76407-2, 73251-4, 25148-0, 33935-0, ANAIFR, 71447-3, 80470-4 ####[facility]IA [id number] [address] [address] [place] Sjogrens syndrome-A extracta ble nuclear Ab Qn (S)on 06-24-2024 SSA ANTIBODY QUAL Negative Normal Negative [facility] Comment on above: Order Comment: Speci men Type: BLOOD SPECIMENOrdering Facility: [facility] Address: [address] [place] [address] Performed By: #### 5 1775-5, 22214-5, 62463-5, 36925-0, 80452-2, 98782-9, 25048-5, ANAIFR, 56031-4, 82600-8 ####[facility]IA [id number] [address] [address] [place] Sjogrens syndrome-B extracta ble nuclear Ab Qn (S)on 06-24-2024 SSB ANTIBODY QUAL Negative Normal Negative [facility] Comment on above: Order Comment: Speci men Type: BLOOD SPECIMENOrdering Facility: [facility] Address: [address] [place] [address] Performed By: #### 5 1775-5, 06473-8, 44037-5, 29110-0, 83169-9, 35284-4, 25785-7, ANAIFR, 14871-1, 22904-9 ####[facility]IA [id number] [place] [address] [place] Kennedy extractable nuclear Ig G Qn (S)on 06-24-2024 SM ANTIBODY QUAL Negative Normal Negative [facility] Comment on above: Order Comment: Speci men Type: BLOOD SPECIMENOrdering Facility: [facility] Address: [address] [place] [address] Result Comment: Anti -Sm (Kennedy) antibody is used as an aid in diagnosis of systemic lupus erythematosus and its presence is associated with renal disease. A negative result cannot rule out systemic lupus erythematosus. Clinical correlation is required. Test Methodology: Multiplex flow immunoassay. Performed By: #### 5 1775-5, 38207-5, 64367-9, 57401-7, 33552-4, 98410-2, 11487-4, ANAIFR, 85238-2, 63552-4 ####[facility] [id number] [place] [address] [place] TSH SerPl-aCncon 06-24-2024 TSH Qn 1.040 m[IU]/L Normal 0.270-4.200 [facility] Comment on above: Order Comment: Speci men Type: BLOOD SPECIMENOrdering Facility: [facility] Address: [address] [place] [address] Performed By: #### 3 016-3, 4498-2, 2157-6, 1987-5, 52040-9, 96713-0, 448-9 ####[facility] [id number] [place] [address] [place] VITAMIN B12 W/REFLEXon 06-24 Cobalamin (Vitamin B12) [Mass/Vol] 570 pg/mL Normal 232-1245 [facility] Comment on above: Order Comment: Speci men Type: BLOOD SPECIMEN Ordering Facility: [facility] Address: [address] [place] [address] Performed By: #### L [id number] #### [facility] CLIA [id number] [address] [place] [address] [place] cCP IgG SerPl-aCncon 024 Cyclic citrullinated peptide IgG Qn >250 High <20 [facility] Comment on above: Order Comment: Speci men Type: BLOOD SPECIMEN Ordering Facility: [facility] Address: [address] [place] [address] Performed By: #### L [id number] #### [facility] CLIA [id number] [address] [place] [address] [place] CBC AND AUTO DIFFon 06-12-20 24 ABSOLUTE BASOPHIL 0.0 X10E9/L Normal 0.0-0.2 [facility] Comment on above: Performed By: #### C POOL, 22232-3, CMP, 1987-12, 4485-04, 4497-2, ENAP #### [facility] ([id number]) [address], [address] [place] [address] ABSOLUTE NEUTROPHIL 5.5 X10E9/L Normal 1.5-6.[address] [facility] Comment on above: Performed By: #### C POOL, 32867-6, CMP, 1987-12, 4485-04, 4497-2, ENAP #### [facility] ([id number]) [address], [address] [place] [address] Basophils/100 WBC (Bld) 0.4 % Normal [facility] Comment on above: Performed By: #### Luke LANZA, 03298-1, CMP, 1987-12, 4485-04, 2, ENAP #### [facility] ([id number]) [address], [address] [place] [address] Eosinophils (Bld) [#/Vol] 0.2 10*3/uL Normal 0.0-0.[address] [facility] Comment on above: Performed By: #### C POOL, 19714-6, CMP, 1987-12, 4485-04, 2, ENAP #### [facility] ([id number]) [address], [address] [place] [address] Eosinophils/100 WBC (Bld) 2.8 % Normal [facility] Comment on above: Performed By: #### C POOL, 67177-4, CMP, 1987-12, 4485-04, 4497-2, ENAP #### [facility] ([id number]) [address], [address] [place] [address] Erythrocyte distribution width (RBC) [Ratio] 13.2 % Normal 11.5-15.[address] [facility] Comment on above: Performed By: #### C POOL, 74172-3, CMP, 1987-12, 4485-04, 4497-2, ENAP #### [facility] ([id number]) [address], [address] [place] [address] Hematocrit (Bld) [Volume fraction] 45.8 % Normal 39-[address] [facility] Comment on above: Performed By: #### C POOL, 73652-7, CMP, 1987-12, 4485-04, 4498-2, ENAP #### [facility] ([id number]) [address], [address] [place] [address] Hemoglobin (Bld) [Mass/Vol] 14.8 g/dL Normal 13.0-17.[address] [facility] Comment on above: Performed By: #### C POOL, 05671-1, CMP, 1987-12, 4485-04, 449-2, ENAP #### [facility] ([id number]) [address], [address] [place] [address] Lymphocytes (Bld) [#/Vol] 1.7 10*3/uL Normal 1.0-3.[address] [facility] Comment on above: Performed By: #### C POOL, 83674-7, CMP, 1987-12, 4485-04, 449-2, ENAP #### [facility] ([id number]) [address], [address] [place] [address] Lymphocytes/100 WBC (Bld) 20.7 % Normal [facility] Comment on above: Performed By: #### C POOL, 00029-2, CMP, 1987-12, 4485-04, 449-2, ENAP #### [facility] ([id number]) [address], [address] [place] [address] MCH (RBC) [Entitic mass] 28.8 pg Normal 27-[address] [facility] Comment on above: Performed By: #### C BCA, 67166-0, CMP, 1987-12, 4485-04, 4497-2, ENAP #### [facility] ([id number]) [address], [address] [place] [address] MCHC (RBC) [Mass/Vol] 32.4 g/dL Normal 32-36 [facility] Comment on above: Performed By: #### C BCA, 44755-3, CMP, 1987-12, 4485-04, 4497-2, ENAP #### [facility] ([id number]) [address], [address] [place] [address] MCV (RBC) [Entitic vol] 89 fL Normal 80-[address] [facility] Comment on above: Performed By: #### C POOL, 63617-0, CMP, 1987-12, 4485-04, 4497-2, ENAP #### [facility] ([id number]) [address] [place] [address] Monocytes (Bld) [#/Vol] 0.6 10*3/uL Normal 0-0.[address] [facility] Comment on above: Performed By: #### C POOL, 24999-7, CMP, 1987-12, 4485-04, 4497-2, ENAP #### [facility] ([id number]) [address], [address] [place] [address] Monocytes/100 WBC (Bld) 7.4 % Normal [facility] Comment on above: Performed By: #### C BCA, 55088-4, CMP, 1987-12, 4485-04, 2, ENAP #### [facility] ([id number]) [address], [address] [place] [address] Neutrophils/100 WBC (Bld) 68.7 % Normal [facility] Comment on above: Performed By: #### C BCA, 78216-5, CMP, 1987-12, 4484-9, 4498-2, ENAP #### [facility] ([id number]) [address], [address] [address] Platelet mean volume (Bld) [Entitic vol] 7.4 fL Normal 7-[address] [facility] Comment on above: Performed By: #### C BCA, 05583-1, CMP, 1987-12, 4485-04, 4498-2, ENAP #### [facility] ([id number]) [address], [address] [address] Platelets (Bld) [#/Vol] 314 10*3/uL Normal 150-[address] [facility] Comment on above: Performed By: #### C BCA, 83221-0, CMP, 1987-12, 4485-04, 4498-2, ENAP #### [facility] ([id number]) [address], [address] [address] RBC COUNT 5.14 X10E12/L Normal 4.10-5.[address] [facility] Comment on above: Performed By: #### C BCA, 49883-5, CMP, 1987-12, 4485-04, 4498-2, ENAP #### [facility] ([id number]) [address], [address] [address] WBC (Bld) [#/Vol] 8.1 10*3/uL Normal 4.0-11.0 [facility] Comment on above: Performed By: #### C BCA, 53634-2, CMP, 1987-12, 4485-04, 4498-2, ENAP #### [facility] ([id number]) [address], [facility] [address] [place] [address] CK [Catalytic activity/Vol]o n 06-12-2023 CPK 54 U/L Normal 24-[address] [facility] Comment on above: Performed By: #### C BCA, 12743-0, CMP, 1987-12, 448-9, 4498-2, ENAP #### [facility] ([id number]) [address], [address] [place] [address] [facility] 06-12-2024 Albumin [Mass/Vol] 4.4 g/dL Normal 3.2-5.3 [facility] Comment on above: Performed By: #### C BCA, 43026-4, CMP, 1987-12, 9, 4498-2, ENAP #### [facility] ([id number]) [address], [address] [place] [address] ALP [Catalytic activity/Vol] 71 U/L Normal 39-[address] [facility] Comment on above: Performed By: #### C BCA, 50079-0, CMP, 1987-12, 4485-04, 4498-2, ENAP #### [facility] ([id number]) [address], [address] [place] [address] ALT [Catalytic activity/Vol] 21 U/L Normal 0-[address] [facility] Comment on above: Performed By: #### C BCA, 08434-8, CMP, 1987-12, 4485-04, 4498-2, ENAP #### [facility] ([id number]) [address], [address] [place] [address] Anion gap [Moles/Vol] 10 mmol/L Normal 5-15 [facility] Comment on above: Performed By: #### C BCA, 09997-6, CMP, 1987-12, 4485-04, 4498-2, ENAP #### [facility] ([id number]) [address], [address] [place] [address] AST [Catalytic activity/Vol] 22 U/L Normal 0-[address] [facility] Comment on above: Performed By: #### C BCA, 38582-2, CMP, 1987-12, 4485-04, 4498-2, ENAP #### [facility] ([id number]) [address] [place] [address] Bilirubin [Mass/Vol] 1.0 mg/dL Normal 0.3-1.[address] [facility] Comment on above: Performed By: #### C BCA, 90412-9, CMP, 1987-12, 4485-04, 4498-2, ENAP #### [facility] ([id number]) [address] [place] [address] Calcium [Mass/Vol] 9.2 mg/dL Normal 8.5-10.5 [facility] Comment on above: Performed By: #### C BCA, 96524-5, CMP, 1987-12, 4485-04, 4498-2, ENAP #### [facility] ([id number]) [address] [place] [address] Chloride [Moles/Vol] 102 mmol/L Normal 98-[address] [facility] Comment on above: Performed By: #### C BCA, 18523-3, CMP, 1987-12, 4485-04, 4498-2, ENAP #### [facility] ([id number]) [address] [place] [address] CO2 [Moles/Vol] 25 mmol/L Normal 22-[address] [facility] Comment on above: Performed By: #### C BCA, 77215-3, CMP, 1987-12, 4485-04, 4498-2, ENAP #### [facility] ([id number]) [address] [place] [address] Creatinine [Mass/Vol] 0.68 mg/dL Normal 0.60-1.30 [facility] Comment on above: Result Comment: METH OD TRACEABLE TO IDMS STANDARD Performed By: #### C BCA, 47877-6, CMP, 1987-12, 4485-04, 4498-2, ENAP #### [facility] ([id number]) [address] [place] [address] eGFR (CKD-EPI) NON-RACE DEPENDENT >90 Normal >[address] [facility] Comment on above: Result Comment: Reported eGFR is based on the CKD-EPI 2020 equation that does not use a race coefficient. Performed By: #### C BCA, 35263-3, CMP, 1987-12, 4485-04, 4498-2, ENAP #### [facility] ([id number]) [address] [place] [address] Glucose [Mass/Vol] 118 mg/dL High 65-99 [facility] Comment on above: Performed By: #### C BCA, 21431-1, CMP, 1987-12, 4485-04, 449-2, ENAP #### [facility] ([id number]) [address] [place] [address] Potassium [Moles/Vol] 3.8 mmol/L Normal 3.5-5.0 [facility] Comment on above: Performed By: #### C BCA, 73888-2, CMP, 1987-12, 4485-04, 4498-2, ENAP #### [facility] ([id number]) [address] [place] [address] Protein [Mass/Vol] 7.5 g/dL Normal 6.0-8.0 [facility] Comment on above: Performed By: #### C BCA, 33071-5, CMP, 1987-12, 4485-04, 449-2, ENAP #### [facility] ([id number]) [address] [place] [address] Sodium [Moles/Vol] 137 mmol/L Normal 134-146 [facility] Comment on above: Performed By: #### C BCA, 24245-7, CMP, 1987-12, 4485-9, 4498-2, ENAP #### [facility] ([id number]) [address] [place] [address] Urea nitrogen [Mass/Vol] 13 mg/dL Normal 5-[address] [facility] Comment on above: Performed By: #### C BCA, 28202-6, CMP, 1987-12, 4484-9, 4498-2, ENAP #### [facility] ([id number]) [address] [place] [address] CRP [Mass/Vol]on 06-12-2024 C REACTIVE PROTEIN 0.7 mg/dL Normal 0.000-0.744 [facility] Comment on above: Performed By: #### C BCA, 60836-4, CMP, 1987-12, 4484-, 4498-2, ENAP #### [facility] ([id number]) [address] [place] [address] ESR Photometric method (Bld) [Velocity]on 06-12-2024 ESR, ERYTHROCYTE SEDIMENTATION RATE 15 mm/h Normal 0-[address] [facility] Comment on above: Performed By: #### C BCA, 59796-7, CMP, 1987-12, 4484-9, 4498-2, ENAP #### [facility] ([id number]) [address] [place] [address] LDH [Catalytic activity/Vol] on 06-12-2024 LDH 181 U/L Normal 100-[address] [facility] Comment on above: Performed By: #### C BCA, 73061-3, CMP, 1987-12, 4484-, 4498-2, ENAP #### [facility] ([id number]) [address] [place] [address] Laboratory comment Bj (Repo rt)on 06-12-2024 UNLISTED LAB TEST Sent to reference lab Normal [facility] Comment on above: Performed By: #### G O #### [facility] [employer] ([id number]) [address] [facility] GENERIC ORDERon TEST NAME HMGCR 3 HYDROXY 3 METHYLGLUTARYL COENZYME A HMG COA REDUCTASE SERUM Normal [facility] Comment on above: Performed By: #### G O #### [facility] ([id number]) [address] [facility], TEST RESULT SEE COMMENTS 11:50 PM Normal [facility] Comment on above: Result Comment: NOTE Test Result Flag Unit RefValue -- HMG-CoA Reductase Ab, S <20.0 CU <20.0 Test Performed by: [place] [address] Rn Examiner: Hussein Khan Ph.D.; CLIA# [id number] Performed By: #### G O #### [facility] [employer] [facility] ([id number]) [address] [facility], TSH Qnon 06-12-2024 TSH 1.23 uIU/mL Normal 0.49-4.[address] [facility] Comment on above: Performed By: #### C POOL, 57685-1, [facility], 1987-12, 4485-04, 449[address], ENAP #### [facility] ([id number]) [address] [place] [address], [address] [place] [address] VITAMIN B12on 06-12-2024 Cobalamin (Vitamin B12) [Mass/Vol] 335 pg/mL Normal 180-[address] [facility] Comment on above: Performed By: #### C BCA, 61539-3, CMP, 1987-12, 4485-04, 4492, ENAP #### [facility] ([id number]) [address] [facility], [address] [place] [address] Vitamin D+Metabolites [Mass/ Vol]on 06-12-2024 VITAMIN D 25 HYD TOT 12.5 ng/mL Low 30-100 [facility] Comment on above: Result Comment: Vitamin D status 25 [place] Vitamin D Deficiency <20 ng/mL Insufficiency 20-29 ng/mL Sufficiency 30-100 ng/mL Toxicity >100 ng/mL NOTE: A pediatric reference range has not been established by the funeral pre arrangement specialist of this kit. The [place] [employer] recommends a Vitamin D level of = or >20ng/mL in infants and children. Performed By: #### C BCA, 48854-3, CMP, 1988-5, 4485-9, 4498-2, ENAP #### [facility] ([id number]) [address] [place] [address], [address] [place] [address] US SOFT TISS HEAD NECKon US SOFT [...] Gavin Ahuja MD on 06/10/2024 10:03 AM Rocio Carpenter MD have personally reviewed the image(s) and agree with and/or edited the report Finalized by Rocio Berg MD on 06/10/2024 12:07 PM Normal [facility] MLR HEMOGLOBIN A1Con 024 Glucose [Mass/Vol] 134 mg/dL [facility] HbA1c (Bld) [Mass fraction] 6.3 % High 4.5 - 6.2 % [facility] Comment on above: ADA RECOMMENDED LIMI T 4.0 - 6.0 ADA THERAPEUTIC TARGET < 7.0 ACTION SUGGESTED > 7.0 Interpretation and review of laboratory results Abnormal [facility] XR OSSEOUS SURVEY LIMITEDon 04-20-2024 XR [...] King MD on 04/20/2024 7:58 AM Normal [facility] C-reactive proteinon 024 CRP [Mass/Vol] 0.8 mg/dL High 0.000 - 0.744 mg/dL [facility] C3 complementon 04-17-2024 Complement C3 [Mass/Vol] 153 mg/dL 86 - 184 mg/dL [facility] C4 complementon 04-17-2024 Complement C4 [Mass/Vol] 33 mg/dL 16 - 47 mg/dL [facility] CBC AND AUTO DIFFon 04-17-20 24 ABSOLUTE BASOPHIL 0.0 X10E9/L Normal 0.0-0.2 [facility] Comment on above: Performed By: #### C BCA, 03175-5, CMP, 1987-, 4485-9, 4498-2, ENAP #### [facility] ([id number]) [address] [place] [address] ABSOLUTE NEUTROPHIL 4.9 X10E9/L Normal 1.5-6.[address] [facility] Comment on above: Performed By: #### C POOL, 58627-6, CMP, 1987-12, 4485-04, 4497-2, ENAP #### [facility] ([id number]) [address] [place] [address] Basophils/100 WBC (Bld) 0.3 % Normal [facility] Comment on above: Performed By: #### C POOL, 66354-9, CMP, 1987-12, 4485-04, 4497-2, ENAP #### [facility] ([id number]) [address] [place] [address] Eosinophils (Bld) [#/Vol] 0.2 10*3/uL Normal 0.0-0.[address] [facility] Comment on above: Performed By: #### C POOL, 31944-1, CMP, 1987-12, 4485-04, 2, ENAP #### [facility] ([id number]) [address], [address] [place] [address] Eosinophils/100 WBC (Bld) 2.5 % Normal [facility] Comment on above: Performed By: #### C POOL, 37641-5, CMP, 1987-12, 4485-04, 2, ENAP #### [facility] ([id number]) [address] [place], [place] [address] Erythrocyte distribution width (RBC) [Ratio] 13.8 % Normal 11.5-15.[address] [facility] Comment on above: Performed By: #### C POOL, 11513-6, CMP, 1987-12, 4485-04, 2, ENAP #### [facility] ([id number]) [address], [address] [place] [address] Hematocrit (Bld) [Volume fraction] 43.2 % Normal 39-[address] [facility] Comment on above: Performed By: #### C BCA, 32324-6, CMP, 1987-12, 4485-04, 4498-2, ENAP #### [facility] ([id number]) [address], [address] [place] [address] Hemoglobin (Bld) [Mass/Vol] 14.8 g/dL Normal 13.0-17.[address] [facility] Comment on above: Performed By: #### C POOL, 87446-3, CMP, 1987-12, 4485-04, 4498-2, ENAP #### [facility] ([id number]) [address], [address] [place] [address] Lymphocytes (Bld) [#/Vol] 2.7 10*3/uL Normal 1.0-3.[address] [facility] Comment on above: Performed By: #### Luke LANZA, 64130-7, CMP, 1987-12, 4485-04, 449-2, ENAP #### [facility] ([id number]) [address], [address] [place] [address] Lymphocytes/100 WBC (Bld) 31.7 % Normal [facility] Comment on above: Performed By: #### C POOL, 44762-1, CMP, 1987-12, 4485-04, 449-2, ENAP #### [facility] ([id number]) [address], [address] [place] [address] MCH (RBC) [Entitic mass] 30.3 pg Normal 27-[address] [facility] Comment on above: Performed By: #### C POOL, 89095-9, CMP, 1987-12, 4485-04, 4498-2, ENAP #### [facility] ([id number]) [address], [address] [place] [address] MCHC (RBC) [Mass/Vol] 34.3 g/dL Normal 32-36 [facility] Comment on above: Performed By: #### C POOL, 63366-4, CMP, 1987-12, 4485-04, 4497-2, ENAP #### [facility] ([id number]) [address] [place] [address] MCV (RBC) [Entitic vol] 89 fL Normal 80-[address] [facility] Comment on above: Performed By: #### C POOL, 10552-5, CMP, 1987-12, 4485-04, 4497-2, ENAP #### [facility] ([id number]) [address], [address] [place] [address] Monocytes (Bld) [#/Vol] 0.6 10*3/uL Normal 0-0.[address] [facility] Comment on above: Performed By: #### Luke LANZA, 79646-7, CMP, 1987-12, 4485-04, 2, ENAP #### [facility] ([id number]) [address], [address] [place] [address] Monocytes/100 WBC (Bld) 7.5 % Normal [facility] Comment on above: Performed By: #### Luke LANZA, 33037-8, CMP, 1987-12, 4485-04, 2, ENAP #### [facility] ([id number]) [address], [address] [place] [address] Neutrophils/100 WBC (Bld) 58.0 % Normal [facility] Comment on above: Performed By: #### Luke LANZA, 51930-4, CMP, 1987-12, 4485-04, 2, ENAP #### [facility] ([id number]) [address], [address] [place] [address] Platelet mean volume (Bld) [Entitic vol] 7.7 fL Normal 7-[address] [facility] Comment on above: Performed By: #### Luke LANZA, 17752-9, CMP, 1987-12, 4485-9, 4498-2, ENAP #### [facility] ([id number]) [address] [address] Platelets (Bld) [#/Vol] 330 10*3/uL Normal 150-[address] [facility] Comment on above: Performed By: #### C POOL, 05489-4, CMP, 1987-12, 4484-9, 4498-2, ENAP #### [facility] ([id number]) [address], [address] [address] RBC COUNT 4.87 X10E12/L Normal 4.10-5.[address] [facility] Comment on above: Performed By: #### C POOL, 38502-3, CMP, 1987-12, 9, 4498-2, ENAP #### [facility] ([id number]) [address], [address] [address] WBC (Bld) [#/Vol] 8.4 10*3/uL Normal 4.0-11.0 [facility] Comment on above: Performed By: #### Luke LANZA, 28166-8, CMP, 1987-12, 9, 4498-2, ENAP #### [facility] ([id number]) [address], [address] [address] CBC auto differentialon 082 Basophils (Bld) [#/Vol] 0.0 10*3/uL [facility] Basophils/100 WBC (Bld) 0.3 % [facility] Eosinophils (Bld) [#/Vol] 0.2 10*3/uL [facility] Eosinophils/100 WBC (Bld) 2.5 % [facility] Erythrocyte distribution width (RBC) [Ratio] 13.8 % 11.5 - 15.0 % [facility] Hematocrit (Bld) [Volume fraction] 43.2 % 39 - 49 % [facility] Hemoglobin (Bld) [Mass/Vol] 14.8 g/dL 13.0 - 17.0 g/dL [facility] Lymphocytes (Bld) [#/Vol] 2.7 10*3/uL [facility] Lymphocytes/100 WBC (Bld) 31.7 % [facility] MCH (RBC) [Entitic mass] 30.3 pg 27 - 34 pg [facility] MCHC (RBC) [Mass/Vol] 34.3 g/dL 32 - 36 g/dL P [facility] MCV (RBC) [Entitic vol] 89 fL 80 - 100 fL [facility] Monocytes (Bld) [#/Vol] 0.6 10*3/uL [facility] Monocytes/100 WBC (Bld) 7.5 % [facility] Neutrophils (Bld) [#/Vol] 4.9 10*3/uL [facility] Neutrophils/100 WBC (Bld) 58.0 % [facility] Platelet mean volume (Bld) [Entitic vol] 7.7 fL 7 - 12 fL [facility] Platelets (Bld) [#/Vol] 330 10*3/uL [facility] RBC (Bld) [#/Vol] 4.87 10*6/uL [facility] WBC corrected for nucl RBC Auto (Bld) [#/Vol] 8.4 [facility] COMPREHENSIVE METABOLIC PANE Rayshawn 04-17-2024 Albumin [Mass/Vol] 4.4 g/dL Normal 3.2-5.3 [facility] Comment on above: Performed By: #### C BCA, 70294-5, CMP, 1987-12, 4485-04, 4498-2, ENAP #### [facility] ([id number]) [address] [place] [address] ALP [Catalytic activity/Vol] 71 U/L Normal 39-[address] [facility] Comment on above: Performed By: #### C BCA, 01557-7, CMP, 1987-12, 4485-04, 4498-2, ENAP #### [facility] ([id number]) [address], [address] [place] [address] ALT [Catalytic activity/Vol] 25 U/L Normal 0-[address] [facility] Comment on above: Performed By: #### C BCA, 57738-2, CMP, 1987-12, 4484-9, 4498-2, ENAP #### [facility] ([id number]) [address], [address] [place] [address] Anion gap [Moles/Vol] 12 mmol/L Normal 5-15 [facility] Comment on above: Performed By: #### C BCA, 52674-0, CMP, 1987-12, 4485-04, 4498-2, ENAP #### [facility] ([id number]) [address], [address] [place] [address] AST [Catalytic activity/Vol] 17 U/L Normal 0-[address] [facility] Comment on above: Performed By: #### C BCA, 88673-0, CMP, 1987-12, 4485-04, 4498-2, ENAP #### [facility] ([id number]) [address], [address] [place] [address] Bilirubin [Mass/Vol] 0.8 mg/dL Normal 0.3-1.[address] [facility] Comment on above: Performed By: #### C BCA, 66689-9, CMP, 1987-12, 4485-04, 4498-2, ENAP #### [facility] ([id number]) [address], [address] [place] [address] Calcium [Mass/Vol] 9.5 mg/dL Normal 8.5-10.5 [facility] Comment on above: Performed By: #### C BCA, 50740-4, CMP, 1987-12, 4485-04, 4498-2, ENAP #### [facility] ([id number]) [address], [address] [place] [address] Chloride [Moles/Vol] 102 mmol/L Normal 98-[address] [facility] Comment on above: Performed By: #### C BCA, 42031-5, CMP, 1987-12, 4485-04, 4498-2, ENAP #### [facility] ([id number]) [address] [address] CO2 [Moles/Vol] 25 mmol/L Normal 22-[address] [facility] Comment on above: Performed By: #### C BCA, 10646-4, CMP, 1987-12, 4485-04, 4498-2, ENAP #### [facility] ([id number]) [address] [address] Creatinine [Mass/Vol] 0.63 mg/dL Normal 0.60-1.30 [facility] Comment on above: Result Comment: METH OD TRACEABLE TO IDMS STANDARD Performed By: #### C BCA, 16319-0, CMP, 1987-12, 4485-04, 4498-2, ENAP #### [facility] ([id number]) [address] [address] eGFR (CKD-EPI) NON-RACE DEPENDENT >90 Normal >[address] [facility] Comment on above: Result Comment: Reported eGFR is based on the CKD-EPI 2020 equation that does not use a race coefficient. Performed By: #### C BCA, 52675-6, CMP, 1987-12, 4485-04, 4498-2, ENAP #### [facility] ([id number]) [address] [address] Glucose [Mass/Vol] 111 mg/dL High 65-99 [facility] Comment on above: Performed By: #### C BCA, 67560-0, CMP, 1987-12, 4485-04, 4498-2, ENAP #### [facility] ([id number]) [address] [address] [place] [address] Potassium [Moles/Vol] 3.8 mmol/L Normal 3.5-5.0 [facility] Comment on above: Performed By: #### C BCA, 89607-2, CMP, 1987-12, 4485-04, 4498-2, ENAP #### [facility] ([id number]) [address] [place] [address] Protein [Mass/Vol] 7.2 g/dL Normal 6.0-8.0 [facility] Comment on above: Performed By: #### C BCA, 18863-3, CMP, 1987-12, 4485-04, 4498-2, ENAP #### [facility] ([id number]) [address] [place] [address] Sodium [Moles/Vol] 139 mmol/L Normal 134-146 [facility] Comment on above: Performed By: #### C BCA, 20280-3, CMP, 1987-12, 4485-04, 4498-2, ENAP #### [facility] ([id number]) [address] [place] [address] Urea nitrogen [Mass/Vol] 12 mg/dL Normal 5-[address] [facility] Comment on above: Performed By: #### C BCA, 47806-2, CMP, 1987-12, 4485-04, 4498-2, ENAP #### [facility] ([id number]) [address] [place] [address] CRP [Mass/Vol]on 04-17-2024 C REACTIVE PROTEIN 0.8 mg/dL High 0.000-0.744 [facility] Comment on above: Performed By: #### C BCA, 88603-0, CMP, 1987-12, 4485-04, 4498-2, ENAP #### [facility] ([id number]) [address], [address] [place] [address] Complement C3 [Mass/Vol]on 0 04-17-2024 COMPLEMENT C3 153 mg/dL Normal 86-[address] [facility] Comment on above: Performed By: #### C BCA, 97910-8, CMP, 1987-12, 4485-9, 4498-2, ENAP #### [facility] ([id number]) [address] [place] [address] Complement C4 [Mass/Vol]on 0 04-17-2024 COMPLEMENT C4 33 mg/dL Normal 16-[address] [facility] Comment on above: Performed By: #### C BCA, 58549-8, CMP, 1987-12, 4489, 4498-2, ENAP #### [facility] ([id number]) [address] [place] [address] Comprehensive metabolic pane rayshawn 04-17-2024 Albumin [Mass/Vol] 4.4 g/dL 3.2 - 5.3 g/dL [facility] ALP [Catalytic activity/Vol] 71 U/L 39 - 130 U/L [facility] ALT No additional P-5'-P [Catalytic activity/Vol] 25 U/L 0 - 40 U/L [facility] Anion gap [Moles/Vol] 12 mmol/L 5 - 15 mmol/L [facility] AST [Catalytic activity/Vol] 17 U/L 0 - 41 U/L [facility] Bilirubin [Mass/Vol] 0.8 mg/dL 0.3 - 1 .2 mg/dL [facility] Calcium [Mass/Vol] 9.5 mg/dL 8.5 - 10. 5 mg/dL [facility] Chloride [Moles/Vol] 102 mmol/L 98 - 10 9 mmol/L [facility] CO2 [Moles/Vol] 25 mmol/L 22 - 32 mmol/L [facility] Creatinine [Mass/Vol] 0.63 mg/dL 0.60 - 1.30 mg/dL [facility] Comment on above: METHOD TRACEABLE TO IDMS STANDARD eGFR (CKD-EPI)non-race dependent - PINF [facility] Comment on above: Reported eGFR is based on the CKD-EPI 2020 equation that does not use a race coefficient. Glucose [Mass/Vol] 111 mg/dL High 65 - 99 mg/dL [facility] Potassium [Moles/Vol] 3.8 mmol/L 3.5 - 5.0 mmol/L [facility] Protein [Mass/Vol] 7.2 g/dL 6.0 - 8.0 g/dL [facility] Sodium [Moles/Vol] 139 mmol/L 134 - 146 mmol/L [facility] Urea nitrogen [Mass/Vol] 12 mg/dL 5 - 23 mg/dL [facility] VIJAY PANELon 04-17-2024 ANTI-KENNEDY AB IGG <0.2 Normal <1.0 [facility] Comment on above: Performed By: #### C POOL, 28324-6, [facility], 1987-12, 4485-04, 2, ENAP #### [facility] ([id number]) [address] [place] [address] JO1 ANTIBODY <0.2 Normal <1.[address] [facility] Comment on above: Performed By: #### C POOL, 72399-5, [facility], 1987-12, 4485-04, 2, ENAP #### [facility] ([id number]) [address] [place] [address] [employer]OR ANTIBODY IGG 0.6 AI Normal <1.0 [facility] Comment on above: Performed By: #### C BCA, 29275-7, [facility], 1987-12, 4485-04, 2, ENAP #### [facility] ([id number]) [address] [place] [address] SCL 70 ANTIBODY <0.2 Normal <1.[address] [facility] Comment on above: Performed By: #### C BCA, 81956-9, [facility], 1987-12, 4485-04, 2, ENAP #### [facility] ([id number]) [address] [place] [address] SSA ANTIBODY <0.2 Normal <1.[address] [facility] Comment on above: Performed By: #### C BCA, 93290-1, CMP, 1987-12, 5-9, 4498-2, ENAP #### [facility] ([id number]) [address] [place] [address] SSB ANTIBODY <0.2 Normal <1.[address] [facility] Comment on above: Performed By: #### C BCA, 57456-8, CMP, 1987-12, 4485-04, 4498-2, ENAP #### [facility] ([id number]) [address] [place] [address] ESR Photometric method (Bld) [Velocity]on 04-17-2024 Interpretation and review of laboratory results Abnormal [facility] ESR, ERYTHROCYTE SEDIMENTATION RATE 19 mm/h High 0-[address] [facility] Comment on above: Performed By: #### C BCA, 66849-3, CMP, 1987-12, 4485-04, 4498-2, ENAP #### [facility] ([id number]) [address] [place] [address] Erythrocyte Sedimentation Ra te (ESR)on 04-17-2024 ESR Photometric method (Bld) [Velocity] 19 mm/h High 0 - 15 mm/h [facility] No Panel Informationon 04-17 [facility] Interpretation and review of laboratory results Abnormal [facility] Automated basophil %Ordered By: Margaret Kennedy on 03-30-2024 Basophils/100 WBC (Bld) 0.4 % Normal . [facility] Comment on above: Performed By: #### B MP, MG, CBC #### [facility] [address] Automated basophil countOrde red By: Margaret Kennedy on 03-30-2024 Basophils (Bld) [#/Vol] 0.1 10*3/uL Normal 0.0-0.2 [facility] Comment on above: Result Comment: PERF ORMED BY: [place] [address] PATHOLOGIST MANAGEMENT SERVICES TECHNICIAN MARLYN MCKEON M.D. Performed By: #### B MP, MG, CBC #### [address] Automated blood monocyte cou ntOrdered By: Margaret Kennedy on 03-30-2024 Monocytes (Bld) [#/Vol] 1.8 10*3/uL High 0.0-0.8 [facility] Comment on above: Performed By: #### B MP, MG, CBC #### [address] Automated eosinophil %Ordere d By: Margaret Kennedy on 03-30-2024 Eosinophils/100 WBC (Bld) 1.0 % Normal . [facility] Comment on above: Performed By: #### B MP, MG, CBC #### [address] Automated eosinophil countOr dered By: Margaret Kennedy on 03-30-2024 Eosinophils (Bld) [#/Vol] 0.2 10*3/uL Normal 0.0-0.45 [facility] Comment on above: Performed By: #### B MP, MG, CBC #### [address] Automated monocyte %Ordered By: Margaret Kennedy on 03-30-2024 Monocytes/100 WBC (Bld) 9.0 % Normal . [facility] Comment on above: Performed By: #### B MP, MG, CBC #### [address] Automated neutrophil %Ordere d By: Margaret Kennedy on 03-30-2024 Neutrophils/100 WBC (Bld) 67.6 % Normal . [facility] Comment on above: Performed By: #### B MP, MG, CBC #### [address] [place] [address] [facility] Basic Metabolic Panelon 08-0 Creatinine Clr Calc Pharmacy 238.21 Normal [facility] Comment on above: Performed By: #### B MP, MG, CBC #### [address] GFR/1.73 sq M.predicted MDRD (S/P/Bld) [Vol rate/Area] mL/min/{1.73_m2} Normal [facility] Comment on above: Performed By: #### B MP, MG, CBC #### [address] head/brain wo conon 03-30 CT head/brain wo con [facility] [place] [address] [place] [address] CT Scan Report Signed Patient: Bhumika Umana JR MR#: [id number] : 1975 Acct:[id number] Age/Sex: 48 / M ADM Date: 03/30/24 Loc: Room: [address] [place] [address] Type: ADM INOo Attending Dr: Bola Garcia [...] Mert Ferreira M.D.03/30/2024 9:26 AM Dictation Location: [place] [address] Transcribed By: [facility] 03/30/[address]25 Dictated By: Mert Ferreira DO 03/30/24917 Signed By: 03/30/[address] Normal [facility] Calcium [Mass/volume] in Ser um or PlasmaOrdered By: Margaret Kennedy on 03-30-2024 Calcium [Mass/Vol] 9.3 mg/dL Normal 8.6-10.3 [facility] Comment on above: Performed By: #### B MP, MG, CBC #### [facility] [address] Capillary blood glucose pete urement by glucometer (mass/volume)Ordered By: Edgar Gomez on 03-30-2024 Glucose [Mass/Vol] 115 mg/dL Normal [facility] Comment on above: Random Glucose Refer ence Range is dependent on time and content of last meal. Glucose of more than 200 mg/dL in a nonstressed, ambulatory subject supports the diagnosis of Diabetes Mellitus. Result Comment: [place] Glucose Reference Range is dependent on time and content of last meal. Glucose of more than 200 mg/dL in a nonstressed, ambulatory subject supports the diagnosis of Diabetes Mellitus. PERFORMED BY: [address] [place] [address] PATHOLOGIST MANAGEMENT SERVICES TECHNICIAN MARLYN MCKEON M.D. Performed By: #### G LULS #### Point of Care testing , Carbon dioxide, total [Moles /volume] in Serum or PlasmaOrdered By: Margaret Kennedy on 03-30-2024 CO2 [Moles/Vol] 27.2 mmol/L Normal 21.0-31.0 [facility] Comment on above: Performed By: #### B MP, MG, CBC #### [facility] [address] [place] [id number] [place] Chloride [Moles/volume] in S vandana or PlasmaOrdered By: Margaret Kennedy on 03-30-2024 Chloride [Moles/Vol] 101 mmol/L Normal 98-107 [facility] Comment on above: Performed By: #### B MP, MG, CBC #### [address] Complete Blood Count Auto Di ffon 03-30-2024 Mean Corpuscular HGB Conc 33.3 g/dL Normal 32.5-35.6 [facility] Comment on above: Performed By: #### B MP, MG, CBC #### [address] NRBC% 0.0 /100{WBC} Normal 0-0.5 [facility] Comment on above: Performed By: #### B MP, MG, CBC #### [address] Creatinine [Mass/volume] in Serum or PlasmaOrdered By: Margaret Kennedy on 03-30-2024 Creatinine [Mass/Vol] 0.61 mg/dL Low 0.70-1.30 [facility] Comment on above: Performed By: #### B MP, MG, CBC #### [address] Erythrocyte distribution wid th [Ratio] by Automated countOrdered By: Margaret Kennedy on 03-30-2024 Erythrocyte distribution width (RBC) [Ratio] 13.6 % Normal 12.0-14.8 [facility] Comment on above: Performed By: #### B MP, MG, CBC #### [address] Erythrocytes [#/volume] in B lood by Automated countOrdered By: Margaret Kennedy on 03-30-2024 RBC (Bld) [#/Vol] 5.03 10*6/uL Normal 3.90-5.60 [facility] Comment on above: Performed By: #### B MP, MG, CBC #### [address] Glucose Poct Glucometerson 0 03-30-2024 Glucose [Mass/Vol] 159 mg/dL Normal [facility] Comment on above: Result Comment: [place] om Glucose Reference Range is dependent on time and content of last meal. Glucose of more than 200 mg/dL in a nonstressed, ambulatory subject supports the diagnosis of Diabetes Mellitus. PERFORMED BY: [place] [address] PATHOLOGIST MANAGEMENT SERVICES TECHNICIAN MARLYN MCKEON M.D. Performed By: #### C BC, MG, PHOS, CMP #### [address] Glucose [Mass/Vol] 144 mg/dL Normal [facility] Comment on above: Result Comment: [place] om Glucose Reference Range is dependent on time and content of last meal. Glucose of more than 200 mg/dL in a nonstressed, ambulatory subject supports the diagnosis of Diabetes Mellitus. PERFORMED BY: [place] [address] PATHOLOGIST MANAGEMENT SERVICES TECHNICIAN MARLYN MCKEON M.D. Performed By: #### C BC, MG, PHOS, CMP #### [place] [address] [place] Glucose [Mass/volume] in Ser um or PlasmaOrdered By: Margaret Kennedy on 03-30-2024 Glucose [Mass/Vol] 119 mg/dL High 70-100 [facility] Comment on above: ADA recommended refe rence rangeRandom Glucose Reference Range is dependent on time and content of last meal. Glucose of more than 200 mg/dL in a nonstressed, ambulatory subject supports the diagnosis of Diabetes Mellitus. Result Comment: [place] om Glucose Reference Range is dependent on time and content of last meal. Glucose of more than 200 mg/dL in a nonstressed, ambulatory subject supports the diagnosis of Diabetes Mellitus. ADA recommended reference range Performed By: #### B MP, MG, CBC #### [place] [address] [place] Hematocrit [Volume Fraction] of Blood by Automated countOrdered By: Margaret Kennedy on 03-30-2024 Hematocrit (Bld) [Volume fraction] 44.6 % Normal 38.8-50.0 [facility] Comment on above: Performed By: #### B MP, MG, CBC #### [place] [address] [place] Hemoglobin [Mass/volume] in BloodOrdered By: Margaret Kennedy on 03-30-2024 Hemoglobin (Bld) [Mass/Vol] 14.9 g/dL Normal 13.0-17.0 [facility] Comment on above: Performed By: #### B MP, MG, CBC #### [address] Leukocytes [#/volume] correc elizabeth for nucleated erythrocytes in Blood by Automated counOrdered By: Margaret Kennedy on 03-30-2024 WBC corrected for nucl RBC Auto (Bld) [#/Vol] 20.0 10*3/uL High 4.1-10.5 [facility] Leukocytes [#/volume] in Blo od by Automated countOrdered By: Margaret Kennedy on 03-30-2024 WBC (Bld) [#/Vol] 20.0 10*3/uL High 4.1-10.5 [facility] Comment on above: Performed By: #### B MIGUEL, MG, CBC #### [address] Lymphocytes [#/volume] in Bl ood by Automated countOrdered By: Margaret Kennedy on 03-30-2024 Lymphocytes (Bld) [#/Vol] 4.4 10*3/uL Normal 1.00-4.8 [facility] Comment on above: Performed By: #### B MP, MG, CBC #### [place] [address] [place] Lymphocytes/100 leukocytes i n Blood by Automated countOrdered By: Margaret Kennedy on 03-30-2024 Lymphocytes/100 WBC (Bld) 22.0 % Normal . [facility] Comment on above: Performed By: #### B MP, MG, CBC #### [place] [address] [place] MCH [Entitic mass] by Automa elizabeth countOrdered By: Margaret Kennedy on 03-30-2024 MCH (RBC) [Entitic mass] 29.5 pg Normal 27.5-35.2 [facility] Comment on above: Performed By: #### B MP, MG, CBC #### [facility] [address] MCHC Auto (RBC) [Mass/Vol]Or dered By: Margaret Kennedy on 03-30-2024 MCHC (RBC) [Mass/Vol] 33.3 g/dL 32.5-35.6 [facility] MCV [Entitic volume] by Auto mated countOrdered By: Margaret Kennedy on 03-30-2024 MCV (RBC) [Entitic vol] 88.6 fL Normal 83.5-101 [facility] Comment on above: Performed By: #### B MP, MG, CBC #### [facility] [address] [place] [address] Magnesium [Mass/volume] in S vandana or PlasmaOrdered By: Margaret Kennedy on 03-30-2024 Magnesium [Mass/Vol] 1.8 mg/dL Low 1.9-2.7 [facility] Comment on above: Result Comment: PERF ORMED BY: [place] [address] PATHOLOGIST MANAGEMENT SERVICES TECHNICIAN MARLYN MCKEON M.D. Performed By: #### B MP, MG, CBC #### [facility] [address] [place] [address] Neutrophils [#/volume] in Bl ood by Automated countOrdered By: Margaret Kennedy on 03-30-2024 Neutrophils (Bld) [#/Vol] 13.5 10*3/uL High 1.8-7.7 [facility] Comment on above: Performed By: #### B MP, MG, CBC #### [facility] [address] [place] [address] No Panel InformationOrdered By: Margaret Kennedy on 03-30-2024 Estimated GFR (CKD-EPI) > 60.0 mL/Min [facility] Creatinine Clearance (Chem 238.21 [facility] Nucleated erythrocytes [Pres ence] in Blood by Automated countOrdered By: Margaret Kennedy on 03-30-2024 Nucleated RBC Auto Ql (Bld) 0.0 /100{WBC} 0-0.5 [facility] Platelet mean volume [Entiti c volume] in Blood by Automated countOrdered By: Margaret Kennedy on 03-30-2024 Platelet mean volume (Bld) [Entitic vol] 7.5 fL Normal 6.6-10.1 [facility] Comment on above: Performed By: #### B MP, MG, CBC #### [facility] [address] Platelets [#/volume] in Bloo d by Automated countOrdered By: Margaret Kennedy on 03-30-2024 Platelets (Bld) [#/Vol] 324 10*3/uL Normal 150-450 [facility] Comment on above: Performed By: #### B MP, MG, CBC #### [address] Potassium [Moles/volume] in Serum or PlasmaOrdered By: Margaret Kennedy on 03-30-2024 Potassium [Moles/Vol] 4.4 mmol/L Normal 3.5-5.1 [facility] Comment on above: Performed By: #### B MP, MG, CBC #### [facility] [address] [place] [address] Serum or plasma anion gap de terminationOrdered By: Margaret Kennedy on 03-30-2024 Anion gap [Moles/Vol] 12.2 mmol/L Normal 6.0-15.0 [facility] Comment on above: Performed By: #### B MP, MG, CBC #### [facility] [address] [place] [address] [place] Sodium [Moles/volume] in Ser um or PlasmaOrdered By: Margaret Kennedy on 03-30-2024 Sodium [Moles/Vol] 136 mmol/L Normal 136-145 [facility] Comment on above: Performed By: #### B MP, MG, CBC #### [facility] [address] [place] [address] [place] Urea nitrogen [Mass/volume] in Serum or PlasmaOrdered By: Margaret Kennedy on 03-30-2024 Urea nitrogen [Mass/Vol] 13 mg/dL Normal 7-25 [facility] Comment on above: Performed By: #### B MP, MG, CBC #### [facility] [address] Automated basophil %Ordered By: Emily Tatum on 03-29-2024 Basophils/100 WBC (Bld) 0.5 % Normal . [facility] Comment on above: Performed By: #### G LULS #### Point of Care testing , Automated basophil countOrde red By: Emily Winn on 03-29-2024 Basophils (Bld) [#/Vol] 0.1 10*3/uL Normal 0.0-0.2 [facility] Comment on above: Performed By: #### G LULS #### Point of Care testing , Automated blood monocyte cou ntOrdered By: Emily Winn on 03-29-2024 Monocytes (Bld) [#/Vol] 1.1 10*3/uL High 0.0-0.8 [facility] Comment on above: Performed By: #### G LULS #### Point of Care testing , Automated eosinophil %Ordere d By: Emily Winn on 03-29-2024 Eosinophils/100 WBC (Bld) 0.6 % Normal . [facility] Comment on above: Performed By: #### G LULS #### Point of Care testing , Automated eosinophil countOr dered By: Emily Winn on 03-29-2024 Eosinophils (Bld) [#/Vol] 0.1 10*3/uL Normal 0.0-0.45 [facility] Comment on above: Performed By: #### G LULS #### Point of Care testing , Automated monocyte %Ordered By: Emily Winn on 03-29-2024 Monocytes/100 WBC (Bld) 6.5 % Normal . [facility] Comment on above: Performed By: #### G LULS #### Point of Care testing , Automated neutrophil %Ordere d By: Emily Winn on 03-29-2024 Neutrophils/100 WBC (Bld) 77.7 % Normal . [facility] Comment on above: Performed By: #### G LULS #### Point of Care testing , Basic Metabolic Panelon Creatinine Clr Calc Pharmacy 196.64 Normal [facility] Comment on above: Performed By: #### B MP, MG, CBC #### [address] GFR/1.73 sq M.predicted MDRD (S/P/Bld) [Vol rate/Area] mL/min/{1.73_m2} Normal [facility] Comment on above: Performed By: #### B MP, MG, CBC #### [place] [address] [place] C reactive protein [Mass/vol ume] in Serum or PlasmaOrdered By: Emily Winn on 03-29-2024 CRP [Mass/Vol] < 0.5 mg/dL 0.0-0.5 [facility] C-Reactive Proteinon 024 CRP [Mass/Vol] mg/L Normal 0.0-0.5 [facility] Comment on above: Result Comment: PERF ORMED BY: [place] [address] PATHOLOGIST MANAGEMENT SERVICES TECHNICIAN MARLYN MCKEON M.D. Performed By: #### B MP, MG, CBC #### [address] Calcium [Mass/volume] in Ser um or PlasmaOrdered By: Emily Winn on 03-29-2024 Calcium [Mass/Vol] 9.3 mg/dL Normal 8.6-10.3 [facility] Comment on above: Performed By: #### B MP, MG, CBC #### [address] Capillary blood glucose pete urement by glucometer (mass/volume)Ordered By: Emily Winn on 03-29-2024 Glucose [Mass/Vol] 204 mg/dL Normal [facility] Comment on above: Random Glucose Refer ence Range is dependent on time and content of last meal. Glucose of more than 200 mg/dL in a nonstressed, ambulatory subject supports the diagnosis of Diabetes Mellitus. Result Comment: [place] Glucose Reference Range is dependent on time and content of last meal. Glucose of more than 200 mg/dL in a nonstressed, ambulatory subject supports the diagnosis of Diabetes Mellitus. PERFORMED BY: [place] [address] PATHOLOGIST MANAGEMENT SERVICES TECHNICIAN MARLYN MCKEON M.D. Performed By: #### C BC, MG, PHOS, CMP #### [facility] [address] [place] [address] Carbon dioxide, total [Moles /volume] in Serum or PlasmaOrdered By: Emily Winn on 03-29-2024 CO2 [Moles/Vol] 23.0 mmol/L Normal 21.0-31.0 [facility] Comment on above: Performed By: #### B MP, MG, CBC #### [facility] [address] [place] [address] Chloride [Moles/volume] in S vandana or PlasmaOrdered By: Emily Winn on 03-29-2024 Chloride [Moles/Vol] 101 mmol/L Normal 98-107 [facility] Comment on above: Performed By: #### B MP, MG, CBC #### [facility] [address] [place] [address] Complete Blood Count Auto Di ffon 03-29-2024 Mean Corpuscular HGB Conc 33.1 g/dL Normal 32.5-35.6 [facility] Comment on above: Performed By: #### G LULS #### Point of Care testing , Monocytes/100 WBC (Bld) 16.02 % Normal 0.00-20.00 [facility] Comment on above: Performed By: #### G LULS #### Point of Care testing , NRBC% 0.1 /100{WBC} Normal 0-0.5 [facility] Comment on above: Performed By: #### G LULS #### Point of Care testing , Creatine kinase [Enzymatic a ctivity/volume] in Serum or PlasmaOrdered By: Emily Winn on 03-29-2024 CK [Catalytic activity/Vol] 37 U/L Normal 30-223 [facility] Comment on above: Result Comment: PERF ORMED BY: [facility] [address] [place] [address] PATHOLOGIST MANAGEMENT SERVICES TECHNICIAN MARLYN MCKEON M.D. Performed By: #### G LULS #### Point of Care testing , Creatinine [Mass/volume] in Serum or PlasmaOrdered By: Emily Winn on 03-29-2024 Creatinine [Mass/Vol] 0.74 mg/dL Normal 0.70-1.30 [facility] Comment on above: Performed By: #### B MP, MG, CBC #### [facility] [address] Erythrocyte Sedimentation Ra devaughn 03-29-2024 ESR (Bld) [Velocity] 12 mm/h Normal 0-14 [facility] Comment on above: Result Comment: PERF ORMED BY: [facility] [address] [place] [address] PATHOLOGIST MANAGEMENT SERVICES TECHNICIAN MARLYN MCKEON M.D. Performed By: #### G LULS #### Point of Care testing , Erythrocyte distribution wid th [Ratio] by Automated countOrdered By: Emily Winn on 03-29-2024 Erythrocyte distribution width (RBC) [Ratio] 13.6 % Normal 12.0-14.8 [facility] Comment on above: Performed By: #### G LULS #### Point of Care testing , Erythrocyte sedimentation ra te by Photometric methodOrdered By: Emily Winn on 03-29-2024 ESR Photometric method (Bld) [Velocity] 12 mm/hr 0-14 [facility] Erythrocytes [#/volume] in B lood by Automated countOrdered By: Emily Winn on 03-29-2024 RBC (Bld) [#/Vol] 5.15 10*6/uL Normal 3.90-5.60 [facility] Comment on above: Performed By: #### G LULS #### Point of Care testing , Glucose [Mass/volume] in Ser um or PlasmaOrdered By: Emily Winn on 03-29-2024 Glucose [Mass/Vol] 201 mg/dL High 70-100 [facility] Comment on above: ADA recommended refe rence rangeRandom Glucose Reference Range is dependent on time and content of last meal. Glucose of more than 200 mg/dL in a nonstressed, ambulatory subject supports the diagnosis of Diabetes Mellitus. Result Comment: [place] om Glucose Reference Range is dependent on time and content of last meal. Glucose of more than 200 mg/dL in a nonstressed, ambulatory subject supports the diagnosis of Diabetes Mellitus. ADA recommended reference range Performed By: #### B MP, MG, CBC #### [address] Hematocrit [Volume Fraction] of Blood by Automated countOrdered By: Emily Winn on 03-29-2024 Hematocrit (Bld) [Volume fraction] 45.6 % Normal 38.8-50.0 [facility] Comment on above: Performed By: #### G LULS #### Point of Care testing , Hemoglobin [Mass/volume] in BloodOrdered By: Emily Winn on 03-29-2024 Hemoglobin (Bld) [Mass/Vol] 15.1 g/dL Normal 13.0-17.0 [facility] Comment on above: Performed By: #### G LULS #### Point of Care testing , Leukocytes [#/volume] correc elizabeth for nucleated erythrocytes in Blood by Automated counOrdered By: Emily Winn on 03-29-2024 WBC corrected for nucl RBC Auto (Bld) [#/Vol] 17.1 10*3/uL High 4.1-10.5 [facility] Leukocytes [#/volume] in Blo od by Automated countOrdered By: Emily Winn on 03-29-2024 WBC (Bld) [#/Vol] 17.1 10*3/uL High 4.1-10.5 [facility] Comment on above: Performed By: #### G LULS #### Point of Care testing , Lymphocytes [#/volume] in Bl ood by Automated countOrdered By: Emily Winn on 03-29-2024 Lymphocytes (Bld) [#/Vol] 2.5 10*3/uL Normal 1.00-4.8 [facility] Comment on above: Performed By: #### G LULS #### Point of Care testing , Lymphocytes/100 leukocytes i n Blood by Automated countOrdered By: Emily Winn on 03-29-2024 Lymphocytes/100 WBC (Bld) 14.7 % Normal . [facility] Comment on above: Performed By: #### G LULS #### Point of Care testing , MCH [Entitic mass] by Automa elizabeth countOrdered By: Emily Winn on 03-29-2024 MCH (RBC) [Entitic mass] 29.3 pg Normal 27.5-35.2 [facility] Comment on above: Performed By: #### G LULS #### Point of Care testing , MCHC Auto (RBC) [Mass/Vol]Or dered By: Emily Winn on 03-29-2024 MCHC (RBC) [Mass/Vol] 33.1 g/dL 32.5-35.6 [facility] MCV [Entitic volume] by Auto mated countOrdered By: Emily Winn on 03-29-2024 MCV (RBC) [Entitic vol] 88.5 fL Normal 83.5-101 [facility] Comment on above: Performed By: #### G LULS #### Point of Care testing , Monocyte distribution width [Entitic volume] in Blood by AutomatedOrdered By: Emily Winn on 03-29-2024 Monocyte distribution width Auto (Bld) [Entitic vol] 16.02 % 0.00-20.00 [facility] Myoglobinon 03-29-2024 Myoglobin [Mass/Vol] 31 ng/mL Normal 28-72 [facility] Comment on above: Result Comment: Perf ormed at: CB - [facility] [address] [id number] Rn Examiner: Gabriel Chan PhD, Phone: [phone] PERFORMED BY: [address] [address] PATHOLOGIST MANAGEMENT SERVICES TECHNICIAN MARLYN MCKEON M.D. Performed By: #### B MP, MG, CBC #### [address] [place] [address] [place] Neutrophils [#/volume] in Bl ood by Automated countOrdered By: Emily Winn on 03-29-2024 Neutrophils (Bld) [#/Vol] 13.3 10*3/uL High 1.8-7.7 [facility] Comment on above: Performed By: #### G LULS #### Point of Care testing , No Panel InformationOrdered By: Emily Winn on 03-29-2024 Estimated GFR (CKD-EPI) > 60.0 mL/Min [facility] Creatinine Clearance (Chem 196.64 [facility] Nucleated erythrocytes [Pres ence] in Blood by Automated countOrdered By: Emily Winn on 03-29-2024 Nucleated RBC Auto Ql (Bld) 0.1 /100{WBC} 0-0.5 [facility] Platelet mean volume [Entiti c volume] in Blood by Automated countOrdered By: Emily Winn on 03-29-2024 Platelet mean volume (Bld) [Entitic vol] 7.4 fL Normal 6.6-10.1 [facility] Comment on above: Performed By: #### G LULS #### Point of Care testing , Platelets [#/volume] in Bloo d by Automated countOrdered By: Emily Winn on 03-29-2024 Platelets (Bld) [#/Vol] 352 10*3/uL Normal 150-450 [facility] Comment on above: Performed By: #### G LULS #### Point of Care testing , Potassium [Moles/volume] in Serum or PlasmaOrdered By: Emily Winn on 03-29-2024 Potassium [Moles/Vol] 4.4 mmol/L Normal 3.5-5.1 [facility] Comment on above: Performed By: #### B MP, MG, CBC #### [facility] [address] Serum or plasma anion gap de terminationOrdered By: Emily Winn on 03-29-2024 Anion gap [Moles/Vol] 14.4 mmol/L Normal 6.0-15.0 [facility] Comment on above: Performed By: #### B MP, MG, CBC #### [facility] [address] [place] [address] Sodium [Moles/volume] in Ser um or PlasmaOrdered By: Emily Winn on 03-29-2024 Sodium [Moles/Vol] 134 mmol/L Low 136-145 [facility] Comment on above: Performed By: #### B MP, MG, CBC #### [facility] [address] [place] [address] Urea nitrogen [Mass/volume] in Serum or PlasmaOrdered By: Emily Winn on 03-29-2024 Urea nitrogen [Mass/Vol] 15 mg/dL Normal 7-25 [facility] Comment on above: Performed By: #### B MP, MG, CBC #### [address] Activated partial thrombopla stin time (aPTT) in platelet poor plasma by coagulation aOrdered By: Danial Horan on 03-25-2024 aPTT Coag (PPP) [Time] 30.2 s 25.1-36.5 [facility] Comment on above: A hematocrit value g reater than 55% may lead to inaccurate results in coagulation testing. Patients having hematocrit values >55% require a special collection tube for coagulation studies. Please contact the laboratory at [phone] for redraw instructions. Aerobic Cultureon 03-25-2024 Aerobic [...] Seen 2+ White Blood Cells PERFORMED BY: [place] [address] PATHOLOGIST MANAGEMENT SERVICES TECHNICIAN MARLYN MCKEON M.D. Normal [facility] Comment on above: Performed By: #### C BC, MG, PHOS, CMP #### [facility] [address] [place] [id number] [facility] Albumin [Mass/volume] in Cer ebral spinal fluidOrdered By: Danial Horan on 03-25-2024 Albumin (CSF) [Mass/Vol] 46 mg/dL High 10-45 [facility] Albumin [Mass/volume] in Ser um or PlasmaOrdered By: Danial Horan on 03-25-2024 Albumin [Mass/Vol] 4.2 g/dL 4.1-5.1 [facility] CSF IgG/albumin ratioOrdered By: Danial Horan on 03-25-2024 IgG/Albumin (CSF) [Mass ratio] 0.13 0.00-0.25 [facility] CSF PCR Panelon 03-25-2024 CSF [...] Varicella zoster virus Not detected PERFORMED BY: [address] [place] [address] PATHOLOGIST MANAGEMENT SERVICES TECHNICIAN MARLYN MCKEON M.D. Normal [facility] Comment on above: Performed By: #### C BC, MG, PHOS, CMP #### [place] [id number] [facility] Capillary blood glucose pete urement by glucometer (mass/volume)Ordered By: Simon Wolfe on 03-25-2024 Glucose [Mass/Vol] 127 mg/dL Normal [facility] Comment on above: Random Glucose Refer ence Range is dependent on time and content of last meal. Glucose of more than 200 mg/dL in a nonstressed, ambulatory subject supports the diagnosis of Diabetes Mellitus. Result Comment: [place] om Glucose Reference Range is dependent on time and content of last meal. Glucose of more than 200 mg/dL in a nonstressed, ambulatory subject supports the diagnosis of Diabetes Mellitus. PERFORMED BY: [place] [address] PATHOLOGIST MANAGEMENT SERVICES TECHNICIAN MARLYN MCKEON M.D. Performed By: #### B MP, MG, CBC #### [facility] [address] [place] [address] Cell Count Differential,CSFo n 03-25-2024 Appearance, CSF Turbid Critically abnormal Clear [facility] Comment on above: Order Comment: Comme nt Tube 1 Performed By: #### C BC, MG, PHOS, CMP #### [place] [address] [place] Color, CSF Red Critically abnormal Colorless [facility] Comment on above: Order Comment: Comme nt Tube 1 Performed By: #### C BC, MG, PHOS, CMP #### [place] [address] [place] Eosinophil, CSF 2 % High 0-0 [facility] Comment on above: Order Comment: Comme nt Tube 1 Performed By: #### C BC, MG, PHOS, CMP #### [place] [address] [place] Lymphocytes, CSF 19 % Low 40-80 [facility] Comment on above: Order Comment: Comme nt Tube 1 Performed By: #### C BC, MG, PHOS, CMP #### [place] [address] [place] Monocytes, CSF 7 % Low 15-45 [facility] Comment on above: Order Comment: Comme nt Tube 1 Performed By: #### C BC, MG, PHOS, CMP #### [facility] [address] [place] [address] [place] Neutrophils, CSF 72 % High 0-6 [facility] Comment on above: Order Comment: Comme nt Tube 1 Performed By: #### C BC, MG, PHOS, CMP #### [facility] [address] [place] [address] [place] [address] Normal [facility] Comment on above: Order Comment: Comme nt Tube 1 Result Comment: The reference interval and other method performance specifications have not been established for this body fluid. The test result must be integrated into the clinical context for interpretation. Performed By: #### C BC, MG, PHOS, CMP #### [address] TNC, CSF 85 Off scale high 0-5 [facility] Comment on above: Order Comment: Comme nt Tube 1 Result Comment: Crit ical value result called at 1233 on 03/25/24 Performed By: #### C BC, MG, PHOS, CMP #### [address] Tube Number Tested, CSF Tube Number: 1 Normal [facility] Comment on above: Order Comment: Comme nt Tube 1 Result Comment: PERF ORMED BY: [place] [address] PATHOLOGIST MANAGEMENT SERVICES TECHNICIAN MARLYN MCKEON M.D. Performed By: #### C BC, MG, PHOS, CMP #### [address] Cell Count Differential,CSF #2on 03-25-2024 Appearance, CSF Hazy Critically abnormal Clear [facility] Comment on above: Order Comment: Comme nt Tube 3 Performed By: #### C BC, MG, PHOS, CMP #### [address] Color, CSF LT PINK Normal Colorless [facility] Comment on above: Order Comment: Comme nt Tube 3 Performed By: #### C BC, MG, PHOS, CMP #### [address] CSF Supernatant Color Colorless Normal Colorless [facility] Comment on above: Order Comment: Comme nt Tube 3 Performed By: #### C BC, MG, PHOS, CMP #### [facility] [address] [place] [address] Order Comment: Comme nt Tube 1 CSF Volume, Total 9.0 mL Normal [facility] Comment on above: Order Comment: Comme nt Tube 3 Performed By: #### C BC, MG, PHOS, CMP #### [facility] [address] [place] [address] Order Comment: Comme nt Tube 1 Eosinophil, CSF 1 % High 0-0 [facility] Comment on above: Order Comment: Comme nt Tube 3 Performed By: #### C BC, MG, PHOS, CMP #### [address] Lymphocytes, CSF 29 % Low 40-80 [facility] Comment on above: Order Comment: Comme nt Tube 3 Performed By: #### C BC, MG, PHOS, CMP #### [address] Monocytes, CSF 8 % Low 15-45 [facility] Comment on above: Order Comment: Comme nt Tube 3 Performed By: #### C BC, MG, PHOS, CMP #### [address] Neutrophils, CSF 62 % High 0-6 [facility] Comment on above: Order Comment: Comme nt Tube 3 Performed By: #### C BC, MG, PHOS, CMP #### [address] RBC, CSF 3051 Normal [facility] Comment on above: Order Comment: Comme nt Tube 3 Result Comment: The reference interval and other method performance specifications have not been established for this body fluid. The test result must be integrated into the clinical context for interpretation. Performed By: #### C BC, MG, PHOS, CMP #### [address] TNC, CSF 3 /uL Normal 0-5 [facility] Comment on above: Order Comment: Comme nt Tube 3 Performed By: #### C BC, MG, PHOS, CMP #### [address] Tube Number Tested, CSF Tube Number: 3 Normal [facility] Comment on above: Order Comment: Comme nt Tube 3 Result Comment: PERF ORMED BY: [place] [address] PATHOLOGIST MANAGEMENT SERVICES TECHNICIAN MARLYN MCKEON M.D. Performed By: #### C BC, MG, PHOS, CMP #### [facility] [address] Cells Counted Total [#] in B patricia fluidOrdered By: Danial Horan on 03-25-2024 Cells Counted Total (Body fld) [#] 85 mm^3 High 0-5 [facility] Comment on above: Critical valueresult calledat 1233 on 03/25/24 Cerebrospinal fluid IgG inde xOrdered By: Danial Horan on 03-25-2024 IgG clearance/Albumin clearance (S+CSF) [Ratio] 0.6 0.0-0.7 [facility] Cerebrospinal fluid appearan ce descriptionOrdered By: Danial Horan on 03-25-2024 Appearance (CSF) Hazy Abnormal Clear [facility] Cerebrospinal fluid eosinoph il percentageOrdered By: Danial Horan on 03-25-2024 Eosinophils/100 WBC (CSF) 2 % High 0-0 [facility] Cerebrospinal fluid lymphocy te percentageOrdered By: Danial Horan on 03-25-2024 Lymphocytes/Leukocyte s Manual cnt (CSF) [Pure # fraction] 19 % Low 40-80 [facility] Cerebrospinal fluid monocyte percentageOrdered By: Danial Horan on 03-25-2024 Monocytes/100 WBC (CSF) 7 % Low 15-45 [facility] Cerebrospinal fluid neutroph il percentageOrdered By: Danial Horan on 03-25-2024 Neutrophils/100 WBC (CSF) 72 % High 0-6 [facility] Cerebrospinal fluid post-oneil trifugation appearance determinationOrdered By: Danial Horan on 03-25-2024 Appearance (Spun CSF) Colorless Colorless [facility] Cerebrospinal fluid sample t ube volume measurementOrdered By: Danial Horan on 03-25-2024 Specimen volume (CSF) 9.0 mL [facility] Color CSFOrdered By: Danial Crawley pler on 03-25-2024 Color (CSF) Lt pink Colorless [facility] Erythrocytes [#/volume] in B patricia fluid by Automated countOrdered By: Danial Horan on 03-25-2024 RBC Auto (Body fld) [#/Vol] 3051 mm^3 [facility] Comment on above: The reference interv al and other method performance specifications have not been established for this body fluid. The test result must be integrated into the clinical context for interpretation. Glucose Poct Glucometerson 0 03-25-2024 Glucose [Mass/Vol] 156 mg/dL Normal [facility] Comment on above: Result Comment: [place] Glucose Reference Range is dependent on time and content of last meal. Glucose of more than 200 mg/dL in a nonstressed, ambulatory subject supports the diagnosis of Diabetes Mellitus. PERFORMED BY: [place] [address] PATHOLOGIST MANAGEMENT SERVICES TECHNICIAN MARLYN MCKEON M.D. Performed By: #### C BC, MG, PHOS, CMP #### [address] Glucose [Mass/Vol] 114 mg/dL Normal [facility] Comment on above: Result Comment: [place] Glucose Reference Range is dependent on time and content of last meal. Glucose of more than 200 mg/dL in a nonstressed, ambulatory subject supports the diagnosis of Diabetes Mellitus. PERFORMED BY: [place] [address] PATHOLOGIST MANAGEMENT SERVICES TECHNICIAN MARLYN MCKEON M.D. Performed By: #### G LULS #### Point of Care testing , Glucose [Mass/Vol] 99 mg/dL Normal [facility] Comment on above: Result Comment: [place] Glucose Reference Range is dependent on time and content of last meal. Glucose of more than 200 mg/dL in a nonstressed, ambulatory subject supports the diagnosis of Diabetes Mellitus. PERFORMED BY: [place] [address] PATHOLOGIST MANAGEMENT SERVICES TECHNICIAN MARLYN MCKEON M.D. Performed By: #### G LULS #### Point of Care testing , Glucose [Mass/volume] in Cer ebral spinal fluidOrdered By: Danial Horan on 03-25-2024 Glucose (CSF) [Mass/Vol] 72 mg/dL High 40-70 [facility] Glucose, CSF #2on 03-25-2024 Glucose, CSF #2 72 mg/dL High 40-70 [facility] Comment on above: Order Comment: Comme nt Tube 3 Performed By: #### C BC, MG, PHOS, CMP #### [facility] [address] [place] [address] Glucose, Spinal Fluidon 07- Glucose, Spinal Fluid 72 mg/dL High 40-70 [facility] Comment on above: Order Comment: Comme nt Tube 1 Performed By: #### C BC, MG, PHOS, CMP #### [facility] [address] [place] [address] Gram Stainon 03-25-2024 Microscopic observation Gram stain Nom (Unsp spec) PER LAB PROTOCAL - WHEN PCR ORDERED, A CULTURE MUST BE ORDERED. Tube Number for CSF Microbiology: 2 Gram Stain Result No Bacteria Seen 2+ White Blood Cells PERFORMED BY: [place] [address] PATHOLOGIST MANAGEMENT SERVICES TECHNICIAN MARLYN MCKEON M.D. Normal [facility] Comment on above: Performed By: #### C BC, MG, PHOS, CMP #### [facility] [address] [place] [address] Gram stain for investigation of transfusion reactionOrdered By: Danial Horan on 03-25-2024 Microscopic observation Gram stain Nom (Unsp spec) [facility] Microscopic observation Gram stain Nom (Unsp spec) No Anaerobes Isolated 3 Days [facility] INR in Platelet poor plasma by Coagulation assayOrdered By: Danial Horan on 03-25-2024 INR Coag (PPP) [Relative time] 1.0 {INR} Normal [facility] Comment on above: INR Therapeutic [...] 3 - 4.5 Performed By: #### G MARGARITA #### Point of Care testing , IR guided lumbar puncture LP on 03-25-2024 IR guided lumbar puncture LP [facility] [place] [address] [place] [address] Interventional Radiology Rpt Signed Patient: Bhumika Umana JR MR#: [id number] : 1975 Acct:[id number] Age/Sex: 48 / M ADM Date: 03/23/24 Loc: Room: [address] [place] [address] Type: ADM IN Attending Dr: Simon Wolfe MD Copies to: DO Simno Aguirre MD Ordering Provider: Danial Horan DO Date of Service: 03/25/24 IR/IR guided lumbar puncture LP: CONCERN FOR DEMYELINATING SYNDROME FLUOROSCOPICALLY GUIDED LUMBAR PUNCTURE CLINICAL HISTORY: Upper extremity weakness. Unable to audio visual specialist things. Cumulative Air Kerma in mGy: 31.4 [...] Mert Ferreira M.D.03/25/2024 12:51 PM Dictation Location: [place] [address] Transcribed By: [facility] 03/25/24 1251 Dictated By: Mert Ferreira DO 03/25/24 1247 Signed By: 03/25/24 1251 Normal [facility] IgG [Mass/volume] in Cerebra l spinal fluidOrdered By: Danial Horan on 03-25-2024 IgG (CSF) [Mass/Vol] 6.0 mg/dL 0.0-10.3 [facility] IgG [Mass/volume] in Serum o r PlasmaOrdered By: Danial Horan on 03-25-2024 IgG [Mass/Vol] 868 mg/dL 603-1613 [facility] IgG synthesis rate [Mass/tonya e] in Serum and CSF by calculationOrdered By: Danial Horan on 03-25-2024 IgG synthesis rate Calc (S+CSF) [Mass/Time] 5.9 mg/day High -9.9 TO +3.3 [facility] Comment on above: Performed at: [address] [id number] Director: Gabriel Chan PhD, Phone: [phone] Rayshawn 03-25-2024 L Specimen: [id number] Received: 03/25/24 Status: MEDINA King Num: [id number] Spec Type: Cytology Subm Dr: Mert Ferreira DO Tissues: A CSF (CSF) Procedures: Cyto Prepstain, DIFF QWIK, PAPSTN Age/ Patient Sex Location Account Attending Physician Bhumika Umana JR 48/M [id number] Simon Wolfe MD SPEC NUM: [id number] RECD: 03/25/24 STATUS: MEDINA KING NUM: [id number] SOL: 03/25/24- DR: Mert Ferreira DO ENTERED: 03/25/[address] [facility] [address]: Danial Horan DO SPEC TYPE: Cytology DEPT: CNG ENTERED BY: [id number] RECV BY: [id number] ORDERED: Cyto Prepstain, DIFF QWIK, PAPSTN ORDERED: Cyto Prepstain, DIFF QWIK, PAPSTN Pathological Diagnosis Cerebrospinal fluid: Negative for malignant cells. Clinical Information Bilateral hand weakness Gross Description Received is .5 ml pale pink hazy unfixed fluid for cytology said to have been obtained as spinal fluid. Cytospin slides are stained with Papanicolaou and Diff-Quik stains.(ME/nh) CPT Codes 52598 Specimen: [id number] Received: 03/25/240051 Status: MEDINA Bernadette Num: [id number] Spec Type: Cytology Subm Dr: Mert Ferreira DO Tissues: A CSF (CSF) Procedures: Cyto Prepstain, DIFF QWIK, PAPSTN Patient: Bhumika Umana JR [id number] (Continued) Signed (signature on file) Jyoti Gary MD 03/26/24 9810 Normal [facility] MR cervical spine wo/w conon 03-25-2024 MR cervical spine wo/w con [facility] [place] [address] [place] [address] MRI Report Signed Patient: Bhumika Umana JR MR#: [id number] : 1975 Acct:[id number] Age/Sex: 48 / M ADM Date: 03/23/24 Loc: Room: [address] [place] [address] Type: ADM IN Attending Dr: Simon Wolfe [...] Pal Oconnor M.D.03/25/2024 12:45 PM Dictation Location: [place] [address] Transcribed By: [facility] 03/25/24 1245 Dictated By: Pal Oconnor II, MD 03/25/24 1237 Signed By: 03/25/24 1245 Normal [facility] Meningitis+Encephalitis path ogens DNA and RNA panel - Cerebral spinal fluid by BLAYNE wiOrdered By: Danial Horan on 03-25-2024 Meningitis+Encephalit is pathogens DNA and RNA panel BLAYNE+non-probe (CSF) [facility] No Panel InformationOrdered By: Danial Horan on 03-25-2024 CSF Myelin Basic Protein 2.7 ng/mL 0.0-4.7 [facility] Comment on above: Results of this test are labeled for research purposes onlyby the assay's funeral pre arrangement specialist. The performancecharacteristics of this assay have not been established bythe funeral pre arrangement specialist. The result should not be used fortreatment or for diagnostic purposes without confirmationof the diagnosis by another medically establisheddiagnostic product or procedure. The performancecharacteristics were determined by [employer].Performed at: [address] [id number] Director: Mariano Jean MD, Phone: [phone] CSF Tube Number Tube number: 3 [facility] Partial Thromboplastin Timeo n 03-25-2024 aPTT Coag (Bld) [Time] 30.2 s Normal 25.1-36.5 [facility] Comment on above: Result Comment: A he matocrit value greater than 55% may lead to inaccurate results in coagulation testing. Patients having hematocrit values >55% require a special collection tube for coagulation studies. Please contact the laboratory at [phone] for redraw instructions. PERFORMED BY: [facility] [place] [address] PATHOLOGIST MANAGEMENT SERVICES TECHNICIAN MARLYN MCKEON M.D. Performed By: #### G LULS #### Point of Care testing , Protein [Mass/volume] in Cer ebral spinal fluidOrdered By: Danial Horan on 03-25-2024 Protein (CSF) [Mass/Vol] 84 mg/dL High 15-45 [facility] Protein fractions.oligoclona l bands.intrathecal [Presence] in Serum and CSFOrdered By: Danial Horan on 03-25-2024 Protein fractions.oligoclonal bands.intrathecal Ql (S+CSF) Comment . [facility] Comment on above: Zero (0) [...] using IsoelectricFocusing (IEF) and immunoblotting methodology.Performed at: [address] [id number] Director: Gabriel Chan PhD, Phone: [phone] Prothrombin time (PT)Ordered By: Danial Horan on 03-25-2024 PT Coag (PPP) [Time] 11.1 s Normal 9.0-12.9 [facility] Comment on above: A hematocrit value g reater than 55% may lead to inaccurate results in coagulation testing. Patients having hematocrit values >55% require a special collection tube for coagulation studies. Please contact the laboratory at [phone] for redraw instructions. Result Comment: A he matocrit value greater than 55% may lead to inaccurate results in coagulation testing. Patients having hematocrit values >55% require a special collection tube for coagulation studies. Please contact the laboratory at [phone] for redraw instructions. Performed By: #### G LULS #### Point of Care testing , Total Protein, CSF #2on 07- Total Protein, CSF #2 84 mg/dL High 15-45 [facility] Comment on above: Order Comment: Comme nt Tube 3 Result Comment: PERF ORMED BY: [place] [address] PATHOLOGIST MANAGEMENT SERVICES TECHNICIAN MARLYN MCKEON M.D. Performed By: #### C BC, MG, PHOS, CMP #### [facility] [address] [place] [address] Total Protein, Spinal Fluido n 03-25-2024 Total Protein, Spinal Fluid 116 mg/dL High 15-45 [facility] Comment on above: Order Comment: Comme nt Tube 1 Result Comment: PERF ORMED BY: [place] [address] PATHOLOGIST MANAGEMENT SERVICES TECHNICIAN MARLYN MCKEON M.D. Performed By: #### C BC, MG, PHOS, CMP #### [facility] [address] [place] [address] Alanine aminotransferase [En zymatic activity/volume] in Serum or PlasmaOrdered By: Elder Iyer on 03-24-2024 ALT [Catalytic activity/Vol] 24 U/L Normal 7-52 [facility] Comment on above: Performed By: #### C BC, MG, PHOS, CMP #### [facility] [address] Albumin [Mass/volume] in Ser um or Plasma by Bromocresol green (BCG) dye binding methoOrdered By: Elder Iyer on 03-24-2024 Albumin BCG dye [Mass/Vol] 4.1 g/dL 3.5-5.7 [facility] Alkaline phosphatase [Enzyma tic activity/volume] in Serum or PlasmaOrdered By: Elder Iyer on 03-24-2024 ALP [Catalytic activity/Vol] 59 U/L Normal 34-104 [facility] Comment on above: Performed By: #### C BC, MG, PHOS, CMP #### [address] Aspartate aminotransferase [ Enzymatic activity/volume] in Serum or PlasmaOrdered By: Elder Iyer on 03-24-2024 AST [Catalytic activity/Vol] 14 U/L Normal 13-39 [facility] Comment on above: Performed By: #### C BC, MG, PHOS, CMP #### [facility] [address] [place] [address] Automated basophil %Ordered By: Elder Iyer on 03-24-2024 Basophils/100 WBC (Bld) 0.5 % Normal . [facility] Comment on above: Performed By: #### C BC, MG, PHOS, CMP #### [address] Automated basophil countOrde red By: Elder Iyer on 03-24-2024 Basophils (Bld) [#/Vol] 0.1 10*3/uL Normal 0.0-0.2 [facility] Comment on above: Result Comment: PERF ORMED BY: [place] [address] PATHOLOGIST MANAGEMENT SERVICES TECHNICIAN MARLYN MCKEON M.D. Performed By: #### C BC, MG, PHOS, CMP #### [facility] [address] [place] [address] Automated blood monocyte cou ntOrdered By: Elder Iyer on 03-24-2024 Monocytes (Bld) [#/Vol] 1.5 10*3/uL High 0.0-0.8 [facility] Comment on above: Performed By: #### C BC, MG, PHOS, CMP #### [address] Automated eosinophil %Ordere d By: Elder Iyer on 03-24-2024 Eosinophils/100 WBC (Bld) 0.6 % Normal . [facility] Comment on above: Performed By: #### C BC, MG, PHOS, CMP #### [address] Automated eosinophil countOr dered By: Elder Iyer on 03-24-2024 Eosinophils (Bld) [#/Vol] 0.1 10*3/uL Normal 0.0-0.45 [facility] Comment on above: Performed By: #### C BC, MG, PHOS, CMP #### [address] Automated monocyte %Ordered By: Elder Iyer on 03-24-2024 Monocytes/100 WBC (Bld) 8.3 % Normal . [facility] Comment on above: Performed By: #### C BC, MG, PHOS, CMP #### [address] Automated neutrophil %Ordere d By: Elder Iyer on 03-24-2024 Neutrophils/100 WBC (Bld) 57.7 % Normal . [facility] Comment on above: Performed By: #### C BC, MG, PHOS, CMP #### [address] Bilirubin.total [Mass/volume ] in Serum or PlasmaOrdered By: Elder Iyer on 03-24-2024 Bilirubin [Mass/Vol] 0.8 mg/dL Normal 0.3-1.0 [facility] Comment on above: Performed By: #### C BC, MG, PHOS, CMP #### [place] [id number] [place] Calcium [Mass/volume] in Ser um or PlasmaOrdered By: Elder Iyer on 03-24-2024 Calcium [Mass/Vol] 8.8 mg/dL Normal 8.6-10.3 [facility] Comment on above: Performed By: #### C BC, MG, PHOS, CMP #### [address] Carbon dioxide, total [Moles /volume] in Serum or PlasmaOrdered By: Elder Iyer on 03-24-2024 CO2 [Moles/Vol] 28.6 mmol/L Normal 21.0-31.0 [facility] Comment on above: Performed By: #### C BC, MG, PHOS, CMP #### [address] Chloride [Moles/volume] in S vandana or PlasmaOrdered By: Elder Iyer on 03-24-2024 Chloride [Moles/Vol] 101 mmol/L Normal 98-107 [facility] Comment on above: Performed By: #### C BC, MG, PHOS, CMP #### [address] Complete Blood Count Auto Di ffon 03-24-2024 Mean Corpuscular HGB Conc 33.3 g/dL Normal 32.5-35.6 [facility] Comment on above: Performed By: #### C BC, MG, PHOS, CMP #### [address] NRBC% 0.2 /100{WBC} Normal 0-0.5 [facility] Comment on above: Performed By: #### C BC, MG, PHOS, CMP #### [address] Comprehensive Metabolic Pane rayshawn 03-24-2024 Albumin [Mass/Vol] 4.1 g/dL Normal 3.5-5.7 [facility] Comment on above: Performed By: #### C BC, MG, PHOS, CMP #### [address] Creatinine Clr Calc Pharmacy 164.23 Normal [facility] Comment on above: Performed By: #### C BC, MG, PHOS, CMP #### [address] GFR/1.73 sq M.predicted MDRD (S/P/Bld) [Vol rate/Area] mL/min/{1.73_m2} Normal [facility] Comment on above: Performed By: #### C BC, MG, PHOS, CMP #### [address] Creatinine [Mass/volume] in Serum or PlasmaOrdered By: Elder Iyer on 03-24-2024 Creatinine [Mass/Vol] 0.88 mg/dL Normal 0.70-1.30 [facility] Comment on above: Performed By: #### C BC, MG, PHOS, CMP #### [address] Erythrocyte distribution wid th [Ratio] by Automated countOrdered By: Elder Iyer on 03-24-2024 Erythrocyte distribution width (RBC) [Ratio] 13.8 % Normal 12.0-14.8 [facility] Comment on above: Performed By: #### C BC, MG, PHOS, CMP #### [address] Erythrocytes [#/volume] in B lood by Automated countOrdered By: Elder Iyer on 03-24-2024 RBC (Bld) [#/Vol] 5.07 10*6/uL Normal 3.90-5.60 [facility] Comment on above: Performed By: #### C BC, MG, PHOS, CMP #### [address] Glucose Poct Glucometerson 0 03-24-2024 Glucose [Mass/Vol] 162 mg/dL Normal [facility] Comment on above: Result Comment: [place] Glucose Reference Range is dependent on time and content of last meal. Glucose of more than 200 mg/dL in a nonstressed, ambulatory subject supports the diagnosis of Diabetes Mellitus. PERFORMED BY: [place] [address] PATHOLOGIST MANAGEMENT SERVICES TECHNICIAN MARLYN MCKEON M.D. Performed By: #### C BC, MG, PHOS, CMP #### [facility] [address] [place] [address] Commemt1 Glu2: Cleaned Meter Normal [facility] Comment on above: Result Comment: PERF ORMED BY: [place] [address] PATHOLOGIST MANAGEMENT SERVICES TECHNICIAN MARLYN MCKEON M.D. Performed By: #### G LULS #### Point of Care testing , Glucose [Mass/Vol] 114 mg/dL Normal [facility] Comment on above: Result Comment: [place] om Glucose Reference Range is dependent on time and content of last meal. Glucose of more than 200 mg/dL in a nonstressed, ambulatory subject supports the diagnosis of Diabetes Mellitus. Performed By: #### G LULS #### Point of Care testing , Commemt1 Glu2: Cleaned Meter Normal [facility] Comment on above: Result Comment: PERF ORMED BY: [place] [address] PATHOLOGIST MANAGEMENT SERVICES TECHNICIAN MARLYN MCKEON M.D. Performed By: #### B MP, MG, CBC #### [facility] [address] [place] [address] Glucose [Mass/Vol] 126 mg/dL Normal [facility] Comment on above: Result Comment: [place] om Glucose Reference Range is dependent on time and content of last meal. Glucose of more than 200 mg/dL in a nonstressed, ambulatory subject supports the diagnosis of Diabetes Mellitus. Performed By: #### B MP, MG, CBC #### [facility] [address] [place] [address] Glucose [Mass/Vol] 128 mg/dL Normal [facility] Comment on above: Result Comment: [place] om Glucose Reference Range is dependent on time and content of last meal. Glucose of more than 200 mg/dL in a nonstressed, ambulatory subject supports the diagnosis of Diabetes Mellitus. PERFORMED BY: [address] [place] [address] PATHOLOGIST MANAGEMENT SERVICES TECHNICIAN MARLYN MCKEON M.D. Performed By: #### G LUMONTRELL #### Point of Care testing , Glucose [Mass/Vol] 125 mg/dL Normal [facility] Comment on above: Result Comment: [facility] Glucose Reference Range is dependent on time and content of last meal. Glucose of more than 200 mg/dL in a nonstressed, ambulatory subject supports the diagnosis of Diabetes Mellitus. PERFORMED BY: [address] [place] [id number] PATHOLOGIST MANAGEMENT SERVICES TECHNICIAN MARLYN MCKEON M.D. Performed By: #### G MARGARITA #### Point of Care testing , Glucose [Mass/volume] in Ser um or PlasmaOrdered By: Elder Iyer on 03-24-2024 Glucose [Mass/Vol] 136 mg/dL Significant change up 70-100 [facility] Comment on above: [place]: 241 on -[id number] recommended reference rangeRandom Glucose Reference Range is dependent on time and content of last meal. Glucose of more than 200 mg/dL in a nonstressed, ambulatory subject supports the diagnosis of Diabetes Mellitus. Result Comment: [facility] Glucose Reference Range is dependent on time and content of last meal. Glucose of more than 200 mg/dL in a nonstressed, ambulatory subject supports the diagnosis of Diabetes Mellitus. ADA recommended reference range Performed By: #### C BC, MG, PHOS, CMP #### [facility] [address] [place] [address] Hematocrit [Volume Fraction] of Blood by Automated countOrdered By: Elder Iyer on 03-24-2024 Hematocrit (Bld) [Volume fraction] 44.7 % Normal 38.8-50.0 [facility] Comment on above: Performed By: #### C BC, MG, PHOS, CMP #### [facility] [address] [place] [address] Hemoglobin [Mass/volume] in BloodOrdered By: Elder Iyer on 03-24-2024 Hemoglobin (Bld) [Mass/Vol] 14.9 g/dL Normal 13.0-17.0 [facility] Comment on above: Performed By: #### C BC, MG, PHOS, CMP #### [facility] [address] [place] [address] Leukocytes [#/volume] correc elizabeth for nucleated erythrocytes in Blood by Automated counOrdered By: Elder Iyer on 03-24-2024 WBC corrected for nucl RBC Auto (Bld) [#/Vol] 18.2 10*3/uL High 4.1-10.5 [facility] Leukocytes [#/volume] in Blo od by Automated countOrdered By: Elder Iyer on 03-24-2024 WBC (Bld) [#/Vol] 18.2 10*3/uL High 4.1-10.5 [facility] Comment on above: Performed By: #### C BC, MG, PHOS, CMP #### [facility] [address] [place] [address] Lymphocytes [#/volume] in Bl ood by Automated countOrdered By: Elder Iyer on 03-24-2024 Lymphocytes (Bld) [#/Vol] 6.0 10*3/uL High 1.00-4.8 [facility] Comment on above: Performed By: #### C BC, MG, PHOS, CMP #### [facility] [address] [place] [address] Lymphocytes/100 leukocytes i n Blood by Automated countOrdered By: Elder Iyer on 03-24-2024 Lymphocytes/100 WBC (Bld) 32.9 % Normal . [facility] Comment on above: Performed By: #### C BC, MG, PHOS, CMP #### [facility] [address] [place] [address] MCH [Entitic mass] by Automa elizabeth countOrdered By: Elder Iyer on 03-24-2024 MCH (RBC) [Entitic mass] 29.3 pg Normal 27.5-35.2 [facility] [facility] Comment on above: Performed By: #### C BC, MG, PHOS, CMP #### [address] [place] [address] [place] MCHC Auto (RBC) [Mass/Vol]Or dered By: Elder Iyer on 03-24-2024 MCHC (RBC) [Mass/Vol] 33.3 g/dL 32.5-35.6 [facility] MCV [Entitic volume] by Auto mated countOrdered By: Elder Iyer on 03-24-2024 MCV (RBC) [Entitic vol] 88.2 fL Normal 83.5-101 [facility] Comment on above: Performed By: #### C BC, MG, PHOS, CMP #### [facility] [address] [place] [address] Magnesium [Mass/volume] in S vandana or PlasmaOrdered By: Elder Iyer on 03-24-2024 Magnesium [Mass/Vol] 2.1 mg/dL Normal 1.9-2.7 [facility] Comment on above: Result Comment: PERF ORMED BY: [place] [address] PATHOLOGIST MANAGEMENT SERVICES TECHNICIAN MARLYN MCKEON M.D. Performed By: #### C BC, MG, PHOS, CMP #### [facility] [address] [place] [address] Neutrophils [#/volume] in Bl ood by Automated countOrdered By: Elder Iyer on 03-24-2024 Neutrophils (Bld) [#/Vol] 10.5 10*3/uL High 1.8-7.7 [facility] Comment on above: Performed By: #### C BC, MG, PHOS, CMP #### [facility] [address] [place] [address] No Panel InformationOrdered By: Elder Iyer on 03-24-2024 Bedside Glucose Comment Glu2: cleaned meter [facility] Estimated GFR (CKD-EPI) > 60.0 mL/Min [facility] Creatinine Clearance (Chem 164.23 [facility] Nucleated erythrocytes [Pres ence] in Blood by Automated countOrdered By: Elder Iyer on 03-24-2024 Nucleated RBC Auto Ql (Bld) 0.2 /100{WBC} 0-0.5 [facility] Phosphate [Mass/volume] in S vandana or PlasmaOrdered By: Elder Iyer on 03-24-2024 Phosphate [Mass/Vol] 4.2 mg/dL Normal 2.5-4.5 [facility] Comment on above: Performed By: #### C BC, MG, PHOS, CMP #### [address] Platelet mean volume [Entiti c volume] in Blood by Automated countOrdered By: Elder Iyer on 03-24-2024 Platelet mean volume (Bld) [Entitic vol] 7.6 fL Normal 6.6-10.1 [facility] Comment on above: Performed By: #### C BC, MG, PHOS, CMP #### [address] Platelets [#/volume] in Bloo d by Automated countOrdered By: Elder Iyer on 03-24-2024 Platelets (Bld) [#/Vol] 364 10*3/uL Normal 150-450 [facility] Comment on above: Performed By: #### C BC, MG, PHOS, CMP #### [address] Potassium [Moles/volume] in Serum or PlasmaOrdered By: Elder Iyer on 03-24-2024 Potassium [Moles/Vol] 3.9 mmol/L Normal 3.5-5.1 [facility] Comment on above: Performed By: #### C BC, MG, PHOS, CMP #### [place] [address] [place] Protein [Mass/volume] in Ser um or PlasmaOrdered By: Elder Iyer on 03-24-2024 Protein [Mass/Vol] 6.5 g/dL Normal 6.4-8.9 [facility] Comment on above: Performed By: #### C BC, MG, PHOS, CMP #### [address] Serum globulin measurement b y calculation (mass/volume)Ordered By: Elder Iyer on 03-24-2024 Globulin (S) [Mass/Vol] 2.4 g/dL Normal [facility] Comment on above: Performed By: #### C BC, MG, PHOS, CMP #### [facility] [address] Serum or plasma albumin/glob ulin mass ratioOrdered By: Elder Iyer on 03-24-2024 Albumin/Globulin [Mass ratio] 1.7 {ratio} [facility] Comment on above: Performed By: #### C BC, MG, PHOS, CMP #### [facility] [address] [place] [address] Serum or plasma anion gap de terminationOrdered By: Elder Iyer on 03-24-2024 Anion gap [Moles/Vol] 12.3 mmol/L Normal 6.0-15.0 [facility] Comment on above: Performed By: #### C BC, MG, PHOS, CMP #### [facility] [address] [place] [address] Sodium [Moles/volume] in Ser um or PlasmaOrdered By: Elder Iyer on 03-24-2024 Sodium [Moles/Vol] 138 mmol/L Significant change down 136-145 [facility] Comment on above: Delta: 132 on -06 Performed By: #### C BC, MG, PHOS, CMP #### [facility] [address] [place] [address] Urea nitrogen [Mass/volume] in Serum or PlasmaOrdered By: Elder Iyer on 03-24-2024 Urea nitrogen [Mass/Vol] 25 mg/dL Normal 7-25 [facility] Comment on above: Performed By: #### C BC, MG, PHOS, CMP #### [facility] [address] [place] [address] A1C with Estimated Average G lonin 03-23-2024 Glucose [Mass/Vol] 166 mg/dL Normal [facility] Comment on above: Result Comment: PERF ORMED BY: [place] [address] PATHOLOGIST MANAGEMENT SERVICES TECHNICIAN MARLYN MCKEON M.D. Performed By: #### G LULS #### Point of Care testing , BNP ser/plasOrdered By: Veronika Gonzales on 03-23-2024 Natriuretic peptide B (Bld) [Mass/Vol] 27.0 pg/mL Normal 5-100 [facility] Comment on above: Result Comment: PERF ORMED BY: [place] [address] PATHOLOGIST MANAGEMENT SERVICES TECHNICIAN MARLYN MCKEON M.D. Performed By: #### C BC, MG, PHOS, CMP #### [address] Basic Metabolic Panelon 02-26 Anion gap [Moles/Vol] 16.0 mmol/L High 6.0-15.0 [facility] Comment on above: Performed By: #### G LULS #### Point of Care testing , Calcium [Mass/Vol] 9.2 mg/dL Normal 8.6-10.3 [facility] Comment on above: Performed By: #### G LULS #### Point of Care testing , Chloride [Moles/Vol] 97 mmol/L Low 98-107 [facility] Comment on above: Performed By: #### G LULS #### Point of Care testing , CO2 [Moles/Vol] 23.4 mmol/L Normal 21.0-31.0 [facility] Comment on above: Performed By: #### G LULS #### Point of Care testing , Creatinine [Mass/Vol] 0.75 mg/dL Normal 0.70-1.30 [facility] Comment on above: Performed By: #### G LULS #### Point of Care testing , Creatinine Clr Calc Pharmacy 195.42 Normal [facility] Comment on above: Performed By: #### G LULS #### Point of Care testing , GFR/1.73 sq M.predicted MDRD (S/P/Bld) [Vol rate/Area] mL/min/{1.73_m2} Normal [facility] Comment on above: Performed By: #### G LULS #### Point of Care testing , Glucose [Mass/Vol] 241 mg/dL Significant change up 70-100 [facility] Comment on above: Result Comment: [facility] Glucose Reference Range is dependent on time and content of last meal. Glucose of more than 200 mg/dL in a nonstressed, ambulatory subject supports the diagnosis of Diabetes Mellitus. ADA recommended reference range Performed By: #### G LULS #### Point of Care testing , Potassium [Moles/Vol] 4.4 mmol/L Normal 3.5-5.1 [facility] Comment on above: Performed By: #### G LULS #### Point of Care testing , Sodium [Moles/Vol] 132 mmol/L Low 136-145 [facility] Comment on above: Performed By: #### G LULS #### Point of Care testing , Urea nitrogen [Mass/Vol] 22 mg/dL Normal 7-25 [facility] Comment on above: Performed By: #### G LULS #### Point of Care testing , Anion gap [Moles/Vol] 17.4 mmol/L High 6.0-15.0 [facility] Comment on above: Performed By: #### C BC, MG, PHOS, CMP #### [facility] [address] [place] [address] [place] Calcium [Mass/Vol] 9.4 mg/dL Normal 8.6-10.3 [facility] Comment on above: Performed By: #### C BC, MG, PHOS, CMP #### [facility] [address] [place] [id number] [place] Chloride [Moles/Vol] 97 mmol/L Low 98-107 [facility] Comment on above: Performed By: #### C BC, MG, PHOS, CMP #### [facility] [address] [place] [id number] [place] CO2 [Moles/Vol] 23.2 mmol/L Normal 21.0-31.0 [facility] Comment on above: Performed By: #### C BC, MG, PHOS, CMP #### [address] Creatinine [Mass/Vol] 0.82 mg/dL Normal 0.70-1.30 [facility] Comment on above: Performed By: #### C BC, MG, PHOS, CMP #### [address] Creatinine Clr Calc Pharmacy 178.94 Normal [facility] Comment on above: Result Comment: PERF ORMED BY: [place] [address] PATHOLOGIST MANAGEMENT SERVICES TECHNICIAN MARLYN MCKEON M.D. Performed By: #### C BC, MG, PHOS, CMP #### [address] GFR/1.73 sq M.predicted MDRD (S/P/Bld) [Vol rate/Area] mL/min/{1.73_m2} Normal [facility] Comment on above: Performed By: #### C BC, MG, PHOS, CMP #### [address] Glucose [Mass/Vol] 342 mg/dL High 70-100 [facility] Comment on above: Result Comment: [facility] Glucose Reference Range is dependent on time and content of last meal. Glucose of more than 200 mg/dL in a nonstressed, ambulatory subject supports the diagnosis of Diabetes Mellitus. ADA recommended reference range Performed By: #### C BC, MG, PHOS, CMP #### [address] Potassium [Moles/Vol] 4.6 mmol/L Normal 3.5-5.1 [facility] Comment on above: Performed By: #### C BC, MG, PHOS, CMP #### [address] Sodium [Moles/Vol] 133 mmol/L Low 136-145 [facility] Comment on above: Performed By: #### C BC, MG, PHOS, CMP #### [place] [address] [place] Urea nitrogen [Mass/Vol] 23 mg/dL Normal 7-25 [facility] Comment on above: Performed By: #### C BC, MG, PHOS, CMP #### [address] Borrelia burgdorferi IgG+IgM Ab [Presence] in Serum by ImmunoassayOrdered By: Danial Horan on 03-23-2024 B. burgdorferi IgG+IgM IA Ql (S) Negative Negative [facility] Comment on above: Lyme antibodies not detected. Reflex testing is notindicated.No laboratory evidence of infection with B. burgdorferi(Lyme disease). Negative results may occur in patientsrecently infected (less than or equal to 14 days) with B.burgdorferi. If recent infection is suspected, repeattesting on a new sample collected in 7 to 14 days isrecommended.Performed at: [facility] [id number] Director: Gabriel Chan PhD, Phone: [phone] C reactive protein [Mass/vol ume] in Serum or PlasmaOrdered By: Danial Horan on 03-23-2024 CRP [Mass/Vol] < 0.5 mg/dL 0.0-0.5 [facility] C-Reactive Proteinon 024 CRP [Mass/Vol] mg/L Normal 0.0-0.5 [facility] Comment on above: Result Comment: PERF ORMED BY: [place] [address] PATHOLOGIST MANAGEMENT SERVICES TECHNICIAN MARLYN MCKEON M.D. Performed By: #### G LULS #### Point of Care testing , Complete Blood Count Auto Di ffon 03-23-2024 Basophils (Bld) [#/Vol] 0.1 10*3/uL Normal 0.0-0.2 [facility] Comment on above: Result Comment: PERF ORMED BY: [place] [address] PATHOLOGIST MANAGEMENT SERVICES TECHNICIAN MARLYN MCKEON M.D. Performed By: #### C BC, MG, PHOS, CMP #### [address] [place] [address] [place] Basophils/100 WBC (Bld) 0.5 % Normal . [facility] Comment on above: Performed By: #### C BC, MG, PHOS, CMP #### [address] Eosinophils (Bld) [#/Vol] 0.0 10*3/uL Normal 0.0-0.45 [facility] Comment on above: Performed By: #### C BC, MG, PHOS, CMP #### [address] Eosinophils/100 WBC (Bld) 0.0 % Normal . [facility] Comment on above: Performed By: #### C BC, MG, PHOS, CMP #### [address] Erythrocyte distribution width (RBC) [Ratio] 13.9 % Normal 12.0-14.8 [facility] Comment on above: Performed By: #### C BC, MG, PHOS, CMP #### [address] Hematocrit (Bld) [Volume fraction] 47.0 % Normal 38.8-50.0 [facility] Comment on above: Performed By: #### C BC, MG, PHOS, CMP #### [address] Hemoglobin (Bld) [Mass/Vol] 15.9 g/dL Normal 13.0-17.0 [facility] Comment on above: Performed By: #### C BC, MG, PHOS, CMP #### [address] Lymphocytes (Bld) [#/Vol] 1.4 10*3/uL Normal 1.00-4.8 [facility] Comment on above: Performed By: #### C BC, MG, PHOS, CMP #### [address] Lymphocytes/100 WBC (Bld) 8.2 % Normal . [facility] Comment on above: Performed By: #### C BC, MG, PHOS, CMP #### [address] MCH (RBC) [Entitic mass] 29.8 pg Normal 27.5-35.2 [facility] Comment on above: Performed By: #### C BC, MG, PHOS, CMP #### [address] MCV (RBC) [Entitic vol] 88.1 fL Normal 83.5-101 [facility] Comment on above: Performed By: #### C BC, MG, PHOS, CMP #### [address] Mean Corpuscular HGB Conc 33.8 g/dL Normal 32.5-35.6 [facility] Comment on above: Performed By: #### C BC, MG, PHOS, CMP #### [address] Monocyte Distribution Width Not performed Normal 0.00-20.00 [facility] Comment on above: Result Comment: Unab le to calculate MDW because the Absolute Monocyte Count is <0.8. Performed By: #### C BC, MG, PHOS, CMP #### [address] Monocytes (Bld) [#/Vol] 0.2 10*3/uL Normal 0.0-0.8 [facility] Comment on above: Performed By: #### C BC, MG, PHOS, CMP #### [address] Monocytes/100 WBC (Bld) 1.0 % Normal . [facility] Comment on above: Performed By: #### C BC, MG, PHOS, CMP #### [address] Neutrophils (Bld) [#/Vol] 15.5 10*3/uL High 1.8-7.7 [facility] Comment on above: Performed By: #### C BC, MG, PHOS, CMP #### [address] Neutrophils/100 WBC (Bld) 90.3 % Normal . [facility] Comment on above: Performed By: #### C BC, MG, PHOS, CMP #### [address] NRBC% 0.1 /100{WBC} Normal 0-0.5 [facility] Comment on above: Performed By: #### C BC, MG, PHOS, CMP #### [address] Platelet mean volume (Bld) [Entitic vol] 7.4 fL Normal 6.6-10.1 [facility] Comment on above: Performed By: #### C BC, MG, PHOS, CMP #### [address] Platelets (Bld) [#/Vol] 381 10*3/uL Normal 150-450 [facility] Comment on above: Performed By: #### C BC, MG, PHOS, CMP #### [address] RBC (Bld) [#/Vol] 5.33 10*6/uL Normal 3.90-5.60 [facility] Comment on above: Performed By: #### C BC, MG, PHOS, CMP #### [address] WBC (Bld) [#/Vol] 17.1 10*3/uL High 4.1-10.5 [facility] Comment on above: Performed By: #### C BC, MG, PHOS, CMP #### [address] Creatine Kinaseon 03-23-2024 CK [Catalytic activity/Vol] 37 U/L Normal 30-223 [facility] Comment on above: Performed By: #### C BC, MG, PHOS, CMP #### [address] Creatine kinase [Enzymatic a ctivity/volume] in Serum or PlasmaOrdered By: Danial Horan on 03-23-2024 CK [Catalytic activity/Vol] 34 U/L Normal 30-223 [facility] Comment on above: Result Comment: PERF ORMED BY: [address] [address] PATHOLOGIST MANAGEMENT SERVICES TECHNICIAN MARLYN MCKEON M.D. Performed By: #### G LULS #### Point of Care testing , ECG 12 lead ECGon 03-23-2024 ECG 12 lead ECG [facility] Main [address] [address] Electrocardiograph Report Signed Patient: Bhumika Umana JR MR#: [id number] : 1975 Acct:[id number] Age/Sex: 48 / M ADM Date: 03/23/24 Loc: ER Room: Type: [facility] ER Attending Dr: Ordering Provider: Gale Gonzales [...] ECGs available Confirmed by Gale Gonzales MD ([id number]) on 03/23/2024 2:06:14 AM Referred By: Electronically Signed By: Gale Gonzales MD Transcribed By: MUS Signed By Gale Gonzales MD 02/26 03/20 0206 Normal [facility] Erythrocyte Sedimentation Ra devaughn 03-23-2024 ESR (Bld) [Velocity] 14 mm/h Normal 0-14 [facility] Comment on above: Result Comment: PERF ORMED BY: [address] [address] PATHOLOGIST MANAGEMENT SERVICES TECHNICIAN MARLYN MCKEON M.D. Performed By: #### G LULS #### Point of Care testing , Erythrocyte sedimentation ra te by Photometric methodOrdered By: Danial Horan on 03-23-2024 ESR Photometric method (Bld) [Velocity] 14 mm/hr 0-14 [facility] Folate [Mass/volume] in Seru m or PlasmaOrdered By: Bola Garcia on 03-23-2024 Folate [Mass/Vol] 13.0 ng/mL >5.9 [facility] Comment on above: Folate reference ran ge: >5.9 ng/mlThe WHO technical consultation on folate and vitamin [id number] has determined that folate concentrations lessthan 4 ng/ml are considered deficient. Glucose Poct Glucometerson 0 03-23-2024 Commemt1 Glu2: Cleaned Meter Normal [facility] Comment on above: Result Comment: PERF ORMED BY: [place] [address] PATHOLOGIST MANAGEMENT SERVICES TECHNICIAN MARLYN MCKEON M.D. Performed By: #### C BC, MG, PHOS, CMP #### [facility] [address] [place] [address] Glucose [Mass/Vol] 166 mg/dL Normal [facility] Comment on above: Result Comment: [facility] Glucose Reference Range is dependent on time and content of last meal. Glucose of more than 200 mg/dL in a nonstressed, ambulatory subject supports the diagnosis of Diabetes Mellitus. Performed By: #### C BC, MG, PHOS, CMP #### [facility] [address] [place] [address] Glucose [Mass/Vol] 133 mg/dL Normal [facility] Comment on above: Result Comment: [place] Glucose Reference Range is dependent on time and content of last meal. Glucose of more than 200 mg/dL in a nonstressed, ambulatory subject supports the diagnosis of Diabetes Mellitus. PERFORMED BY: [facility] [address] [place] [address] PATHOLOGIST MANAGEMENT SERVICES TECHNICIAN MARLYN MCKEON M.D. Performed By: #### G LULS #### Point of Care testing , Glucose [Mass/Vol] 180 mg/dL Normal [facility] Comment on above: Result Comment: [facility] Glucose Reference Range is dependent on time and content of last meal. Glucose of more than 200 mg/dL in a nonstressed, ambulatory subject supports the diagnosis of Diabetes Mellitus. PERFORMED BY: [place] [address] PATHOLOGIST MANAGEMENT SERVICES TECHNICIAN MARLYN MCKEON M.D. Performed By: #### G LULS #### Point of Care testing , Glucose [Mass/Vol] 216 mg/dL Normal [facility] Comment on above: Result Comment: [place] [facility] Glucose Reference Range is dependent on time and content of last meal. Glucose of more than 200 mg/dL in a nonstressed, ambulatory subject supports the diagnosis of Diabetes Mellitus. PERFORMED BY: [place] [address] PATHOLOGIST MANAGEMENT SERVICES TECHNICIAN MARLYN MCKEON M.D. Performed By: #### G LULS #### Point of Care testing , Commemt1 Glu2: Cleaned Meter Normal [facility] Comment on above: Result Comment: PERF ORMED BY: [place] [address] PATHOLOGIST MANAGEMENT SERVICES TECHNICIAN MARLYN MCKEON M.D. Performed By: #### C BC, MG, PHOS, CMP #### [facility] [address] [place] [address] Glucose [Mass/Vol] 362 mg/dL Normal [facility] Comment on above: Result Comment: [place] Glucose Reference Range is dependent on time and content of last meal. Glucose of more than 200 mg/dL in a nonstressed, ambulatory subject supports the diagnosis of Diabetes Mellitus. Performed By: #### C BC, MG, PHOS, CMP #### [facility] [address] [place] [address] Glucose mean value [Mass/vol ume] in Blood Estimated from glycated hemoglobinOrdered By: Bola Garcia on 03-23-2024 Average glucose Estimated from glycated hemoglobin (Bld) [Mass/Vol] 166 mg/dL [facility] Hemoglobin A1c percentageOrd ered By: Bloa Garcia on 03-23-2024 HbA1c (Bld) [Mass fraction] 7.4 % High 4.3-5.6 [facility] Comment on above: Increased risk [...] Total Antibody Negative Normal Negative [facility] Comment on above: [...] to 14 days is recommended. Performed at: [facility] [address] [id number] Rn Examiner: Gabriel Chan PhD, Phone: [phone] PERFORMED BY: [place] [address] PATHOLOGIST MANAGEMENT SERVICES TECHNICIAN MARLYN MCKEON M.D. Performed By: #### G LULS #### Point of Care testing , MR head/brain wo/w conon MR head/brain wo/w con [facility] [place] [address] MRI Report Signed Patient: Bhumika Umana JR MR#: [id number] : 1975 Acct:[id number] Age/Sex: 48 / M ADM Date: 03/23/24 Loc: Room: [address] [place] [address] Type: ADM IN Attending Dr: Elder Iyer [...] excluded. Impression dictated by: Rene Gonzales Jr., LisandroOKim03/23/2024 10:46 AM Dictation Location: [place] [address] Transcribed By: [facility] 03/23/24 1046 Dictated By: Rene Gonzales Jr, DO 03/23/24 1039 Signed By: 03/23/24 1046 Normal [facility] Monocyte distribution width [Entitic volume] in Blood by AutomatedOrdered By: Gale Gonzales on 03-23-2024 Monocyte distribution width Auto (Bld) [Entitic vol] Test not performed % 0.00-20.00 [facility] Comment on above: Unable to calculate MDW because the Absolute Monocyte Count is <0.8. Partial Thromboplastin Timeo n 03-23-2024 aPTT Coag (Bld) [Time] 22.2 s Low 25.1-36.5 [facility] Comment on above: Result Comment: A he matocrit value greater than 55% may lead to inaccurate results in coagulation testing. Patients having hematocrit values >55% require a special collection tube for coagulation studies. Please contact the laboratory at [phone] for redraw instructions. PERFORMED BY: [address] [address] PATHOLOGIST MANAGEMENT SERVICES TECHNICIAN MARLYN MCKEON M.D. Performed By: #### C BC, MG, PHOS, CMP #### [place] [id number] [facility] Prothrombin Time INRon 03-23 INR Coag (PPP) [Relative time] 1.0 {INR} Normal [facility] Comment on above: [...] #### C BC, MG, PHOS, CMP #### [facility] [address] [place] [address] [facility] PT Coag (PPP) [Time] 11.7 s Normal 9.0-12.9 [facility] Comment on above: Result Comment: A he matocrit value greater than 55% may lead to inaccurate results in coagulation testing. Patients having hematocrit values >55% require a special collection tube for coagulation studies. Please contact the laboratory at [phone] for redraw instructions. Performed By: #### C BC, MG, PHOS, CMP #### [address] [address] [facility] Thyrotropin [Units/volume] i n Serum or PlasmaOrdered By: Bola Garcia on 03-23-2024 TSH Qn 0.48 m[IU]/L Normal 0.45-5.33 [facility] Comment on above: Performed By: #### G LULS #### Point of Care testing , Troponin I High Sensitivityo n 03-23-2024 Troponin I High Sensitivity 3.3 pg/mL Normal 0.0-20.0 [facility] Comment on above: Result Comment: PERF ORMED BY: [place] [address] PATHOLOGIST MANAGEMENT SERVICES TECHNICIAN MARLYN MCKEON M.D. Performed By: #### C BC, MG, PHOS, CMP #### [facility] [address] [place] [address] [facility] Troponin I.cardiac [Mass/vol ume] in Serum or Plasma by Detection limit <= 0.01 ng/Ordered By: Gale Gonzales on 03-23-2024 Troponin I.cardiac DL <= 0.01 ng/mL [Mass/Vol] 3.3 pg/mL 0.0-20.0 [facility] Vit. B12/Folate Profileon Folate 13.0 ng/mL Normal >5.9 [facility] Comment on above: [...] (Vitamin B12) [Mass/Vol] 416 pg/mL Normal 180-914 [facility] Comment on above: Performed By: #### G LULS #### Point of Care testing , Vitamin D 25 Hydroxy Totalon 03-23-2024 Vitamin D 25 Hydroxy Total 21.6 ng/mL Low 30-100 [facility] Comment on above: Result Comment: KAYLEY MIN D STATUS 25([place])VITAMIN D RANGE (ng/mL) Deficient <20 Insufficient 20 to <30 Sufficient 30 to 100 Reference: Kalee Anton, Brett BROOKS, et al. Evaluation,treatment, and prevention of vitamin D deficiency; an Endocrine Society clinical practice guideline. JCEM. 2010; 96(7):1911-30. PERFORMED BY: [facility] [address] [place] [address] PATHOLOGIST MANAGEMENT SERVICES TECHNICIAN MARLYN MCKEON M.D. Performed By: #### G LULS #### Point of Care testing , Vitamin D+Metabolites [Mass/ volume] in Serum or PlasmaOrdered By: Bola Garcia on 03-23-2024 Vitamin D+Metabolites [Mass/Vol] 21.6 ng/mL Low 30-100 [facility] Comment on above: VITAMIN D STATUS 25( [place])VITAMIN D RANGE (ng/mL) Deficient <20 Insufficient 20 to <30Sufficient 30 to 100Reference: Kalee Anton, Brett BROOKS, et al. Evaluation,treatment, and prevention of vitamin D deficiency; an Endocrine Society clinical practice guideline. JCEM. 2010; 96(7):1911-30. XR chest 2V*on 03-23-2024 XR chest 2V* [facility] [place] [address] [place] [id number] XRay Report Signed Patient: Bhumika Umana JR MR#: [id number] : 1975 Acct:[id number] Age/Sex: 48 / M ADM Date: 03/23/24 Loc: Room: [address] [place] [address] Type: ADM IN Attending Dr: Elder Ieyr MD Copies to: MD Elder Huddleston MD Ordering Provider: Gale Gonzales MD Date of Service: 03/23/24 XR/XR chest 2V*: Weakness Chest 2 views CLINICAL HISTORY: Weakness in hand since December. COMPARISON: None FINDINGS: Heart normal size. Lungs are clear. No free air. XR/XR chest 2V* IMPRESSION: NO ACUTE CARDIOPULMONARY ABNORMALITY. Impression dictated by: Rene Gonzales Jr., D.O.03/23/2024 9:33 AM Dictation Location: [facility] Transcribed By: [facility] 03/23/2433 Dictated By: Rene Gonzales Jr, DO 03/23/2433 Signed By: 03/23/24 0933 Normal [facility] XR ELBOW RT [...] Date: 2022-04-23 12:40 Normal [facility] CBC AUTO DIFFon 01-11-2022 BASO # 0.0 103/ul Normal 0.0-0.1 [facility] Comment on above: Performed By: #### C BC #### [facility] [address] [address] [address] Sera Quach Basophils/100 WBC (Bld) 0.4 % Normal 0.2-2.0 [facility] Comment on above: Performed By: #### C BC #### [facility] [address] [address] [address] Sera Quach EO # 0.3 103/ul Normal 0.0-0.7 [facility] Comment on above: Performed By: #### C BC #### [facility] [address] [place] [address] Dr. Sera Quach Eosinophils/100 WBC (Bld) 2.8 % Normal 0.9-7.0 [facility] Comment on above: Performed By: #### C BC #### [facility] [address] [place] [address] Dr. Sera Quach Erythrocyte distribution width (RBC) [Ratio] 13.1 % Normal 11.0-15.0 [facility] Comment on above: Performed By: #### C BC #### [facility] [address] [place] [address] Dr. Sera Quach Hematocrit (Bld) [Volume fraction] 47.3 % Normal 42.0-54.0 [facility] Comment on above: Performed By: #### C BC #### [facility] [address] [place] [address] Dr. Sera Quach Hemoglobin (Bld) [Mass/Vol] 15.2 g/dL Normal 14.0-18.0 [facility] Comment on above: Performed By: #### C BC #### [facility] [address] [place] [address] Dr. Sera Quach IG # 0.03 10e3/ul Normal 0.00-0.03 [facility] Comment on above: Performed By: #### C BC #### [facility] [address] [place] [address] Dr. Sera Quach IG % 0.3 % Normal 0.0-0.5 [facility] Comment on above: Performed By: #### C BC #### [facility] [address] [place] [address] Dr. Sera Quach LYMPH # 2.3 103/ul Normal 1.2-3.8 [facility] Comment on above: Performed By: #### C BC #### [facility] [address] [place] [address] Dr. Sera Quach Lymphocytes/100 WBC (Bld) 25.5 % Normal 20.5-60.0 [facility] Comment on above: Performed By: #### C BC #### [facility] [address] [place] [address] Dr. Sera uQach MANUAL DIFF REQ NO Normal [facility] Comment on above: Performed By: #### C BC #### [facility] [address] [place] [address] Dr. Sera Quach MCH (RBC) [Entitic mass] 29.2 pg Normal 25.9-34.0 [facility] Comment on above: Performed By: #### C BC #### [facility] [address] [place] [address] Dr. Sera Quach MCHC (RBC) [Mass/Vol] 32.1 g/dL Normal 29.9-35.2 [facility] Comment on above: Performed By: #### C BC #### [facility] [address] [place] [address] Dr. Sera Quach MCV (RBC) [Entitic vol] 91.0 fL Normal 80.0-94.0 [facility] Comment on above: Performed By: #### C BC #### [facility] [address] [place] [address] Dr. Sera Quach MONO # 0.7 103/ul Normal 0.3-0.8 [facility] Comment on above: Performed By: #### C BC #### [facility] [address] [place] [address] Dr. Sera Quach Monocytes/100 WBC (Bld) 7.1 % Normal 1.7-12.0 [facility] Comment on above: Performed By: #### C BC #### [facility] [address] [address] [address] Sera Quach NEUT # 5.9 103/ul Normal 1.4-6.5 [facility] Comment on above: Performed By: #### C BC #### [facility] [address] [address] [address] Sera Quach Neutrophils/100 WBC (Bld) 63.9 % Normal 43.0-75.0 [facility] Comment on above: Performed By: #### C BC #### [facility] [address] [address] [address] Sera Quach Platelet mean volume (Bld) [Entitic vol] 9.3 fL Critically low 9.5-13.5 [facility] Comment on above: Performed By: #### C BC #### [facility] [address] [place] [address] Dr. Sera Quach PLT 316 103/ul Normal 150-450 [facility] Comment on above: Performed By: #### C BC #### [facility] [address] [place] [address] Dr. Sera Quach RBC 5.20 106/ul Normal 4.70-6.10 [facility] Comment on above: Performed By: #### C BC #### [facility] [address] [place] [address] Dr. Sera Quach WBC 9.2 103/ul Normal 4.0-11.0 [facility] Comment on above: Performed By: #### C BC #### [facility] [address] [place] [address] Dr. Sera Quach GLYCOHEMOGLOBIN A1Con 2021 ADA RECOMMENDATION SEE BELOW Normal [facility] Comment on above: Result Comment: ADA RECOMMENDED LIMIT 4.0 - 6.0 ADA THERAPEUTIC TARGET < 7.0 ACTION SUGGESTED > 7.0 Performed By: #### A 1C #### [facility] [address] [place] [address] Dr. Sera Quach Glucose [Mass/Vol] 209 mg/dL Normal [facility] Comment on above: Performed By: #### A 1C #### [facility] [address] [address] [address] Sera Quach HbA1c (Bld) [Mass fraction] 8.9 % Critically high 4.5-6.2 [facility] Comment on above: Performed By: #### A 1C #### [facility] [address] [address] [address] Sera Quach LIPID PROFILEon 01-11-2022 CHOL-HDL RATIO NORM SEE BELOW Normal [facility] Comment on above: Result Comment: 3.3 - 4.4 LOW RISK 4.4 - 7.1 AVERAGE RISK 7.1 - 11.0 MODERATE RISK >11.0 HIGH RISK Performed By: #### C MP, LIPID #### [facility] [address] [place] [address] Dr. Sera Quach Cholesterol [Mass/Vol] 154 mg/dL Normal <=200 [facility] Comment on above: Performed By: #### C MP, LIPID #### [facility] [address] [place] [address] Dr. Sera Quach Cholesterol in HDL [Mass/Vol] 39 mg/dL Critically low 40-60 [facility] Comment on above: Performed By: #### C MP, LIPID #### [facility] [address] [place] [address] Dr. Sera Quach Cholesterol in LDL [Mass/Vol] 98.0 mg/dL Normal [facility] Comment on above: Performed By: #### C MP, LIPID #### [facility] [address] [place] [address] Dr. Sera Quach Cholesterol.total/Cho lesterol in HDL [Mass ratio] 3.9 {ratio} Normal [facility] Comment on above: Performed By: #### C MP, LIPID #### [facility] [address] [place] [address] Dr. Sera Quach HDL NORMAL > or = 60 mg/dl - LO W CARDIOVASCULAR RISK <40 mg/dl - HIGH CARDIOVASCULAR RISK Normal [facility] Comment on above: Performed By: #### C MP, LIPID #### [facility] [address] [place] [address] Dr. Sera Quach LDL CALC NORMAL SEE BELOW Normal [facility] Comment on above: Result Comment: <100 mg/dl OPTIMAL 100 - 129 mg/dl NEAR OR ABOVE OPTIMAL 130 - 159 mg/dl BORDERLINE HIGH 160 - 189 mg/dl HIGH >190 mg/dl VERY HIGH Performed By: #### C MP, LIPID #### [facility] [address] [place] [address] Dr. Sera Quach Triglyceride [Mass/Vol] 85 mg/dL Normal <=150 [facility] Comment on above: Performed By: #### C MP, LIPID #### [facility] [address] [address] [address] Sera Quach VLDL CALC 17.0 mg/dL Normal [facility] Comment on above: Performed By: #### C MP, LIPID #### [facility] [address] [place] [address] Dr. Sera Quach MICROALBUMIN, RAND URon 12-26 mALB 1.3 mg/L Normal <=30.0 [facility] Comment on above: Performed By: #### M ALBR #### [facility] [address] [place] [address] Dr. Sera Quach PROF 14(COMP METB)on 022 Albumin [Mass/Vol] 3.9 g/dL Normal 3.4-5.0 [facility] Comment on above: Performed By: #### C MP, LIPID #### [facility] [address] [place] [address] Dr. Sera Quach Albumin/Globulin [Mass ratio] 1.1 {ratio} Normal [facility] Comment on above: Performed By: #### C MP, LIPID #### [facility] [address] [place] [address] Dr. Sera Quach ALP [Catalytic activity/Vol] 76 U/L Normal 46-116 [facility] Comment on above: Performed By: #### C MP, LIPID #### [facility] [address] [place] [address] Dr. Sera Quach ALT [Catalytic activity/Vol] 64 U/L Critically high 16-63 [facility] Comment on above: Performed By: #### C MP, LIPID #### [facility] [address] [address] [address] Sera Quach Anion gap [Moles/Vol] 12.7 mmol/L Normal [facility] Comment on above: Performed By: #### C MP, LIPID #### [facility] [address] [address] [address] Sera Quach AST [Catalytic activity/Vol] 37 U/L Normal 15-37 [facility] Comment on above: Performed By: #### C MP, LIPID #### [facility] [address] [place] [address] Dr. Sera Quach Bilirubin [Mass/Vol] 0.6 mg/dL Normal 0.2-1.0 [facility] Comment on above: Performed By: #### C MP, LIPID #### [facility] [address] [place] [address] Dr. Sera Quach Calcium [Mass/Vol] 9.0 mg/dL Normal 8.5-10.1 [facility] Comment on above: Performed By: #### C MP, LIPID #### [facility] [address] [place] [address] Dr. Sera Quach Chloride [Moles/Vol] 101 mmol/L Normal 98-107 [facility] Comment on above: Performed By: #### C MP, LIPID #### [facility] [address] [place] [address] Dr. Sera Quach CO2 [Moles/Vol] 27.6 mmol/L Normal 21.0-32.0 [facility] Comment on above: Performed By: #### C MP, LIPID #### [facility] [address] [place] [address] Dr. Sera Quach Creatinine [Mass/Vol] 0.75 mg/dL Normal 0.70-1.30 [facility] Comment on above: Performed By: #### C MP, LIPID #### [facility] [address] [place] [address] Dr. Sera Quach EGFR-AF SCOTTISH >60 Normal >=60 [facility] Comment on above: Performed By: #### C MP, LIPID #### [facility] [address] [address] [address] Sera Quach EGFR-NON AF SCOTTISH >60 Normal >=60 [facility] Comment on above: Performed By: #### C MP, LIPID #### [facility] [address] [address] [address] Sera Quach Globulin (S) [Mass/Vol] 3.6 g/dL Normal [facility] Comment on above: Performed By: #### C MP, LIPID #### [facility] [address] [address] [address] Sera Quach Glucose [Mass/Vol] 184 mg/dL Critically high 74-106 [facility] Comment on above: Performed By: #### C MP, LIPID #### [facility] [address] [place] [address] Dr. Sera Quach Potassium [Moles/Vol] 4.3 mmol/L Normal 3.5-5.1 [facility] Comment on above: Performed By: #### C MP, LIPID #### [facility] [address] [place] [address] Dr. Sera Quach Protein [Mass/Vol] 7.5 g/dL Normal 6.4-8.2 [facility] Comment on above: Performed By: #### C MP, LIPID #### [facility] [address] [place] [address] Dr. Sera Quach Sodium [Moles/Vol] 137 mmol/L Normal 136-145 [facility] Comment on above: Performed By: #### C MP, LIPID #### [facility] [address] [address] [address] Sera Quach Urea nitrogen [Mass/Vol] 12.0 mg/dL Normal 7.0-18.0 [facility] Comment on above: Performed By: #### C MP, LIPID #### [facility] [address] [address] [address] Sera Quach Urea nitrogen/Creatinine [Mass ratio] 16.0 mg/mg Normal [facility] Comment on above: Performed By: #### C MP, LIPID #### [facility] [address] [address] [address] Sera Quach UA RANDOM W/MICROSCOPICon BACTERIA NONE SEEN Normal NONE SEEN [facility] Comment on above: Performed By: #### U AMIC #### [facility] [address] [address] [address] Sera Quach Bilirubin Ql (U) Negative Normal NEGATIVE [facility] Comment on above: Performed By: #### U AMIC #### [facility] [address] [address] [address] Sera Quach CAST NONE SEEN Normal NONE SEEN [facility] Comment on above: Performed By: #### U AMIC #### [facility] [address] [address] [address] Sera Quach Clarity (U) CLOUDY Abnormal CLEAR [facility] Comment on above: Performed By: #### U AMIC #### [facility] [address] [address] [address] Sera Quach Color (U) YELLOW Normal YELLOW [facility] Comment on above: Performed By: #### U AMIC #### [facility] [address] [address] [address] Sera Quach Crystals LM Nom (Urine sed) SEEN Abnormal NONE SEEN [facility] Comment on above: Performed By: #### U AMIC #### [facility] [address] [address] [address] Sera Quach Epithelial cells LM Ql (Urine sed) RARE Normal NONE SEEN /RARE [facility] Comment on above: Performed By: #### U AMIC #### [facility] [address] [address] [address] Sera Quach Glucose Ql (U) Negative Normal NEGATIVE [facility] Comment on above: Performed By: #### U AMIC #### [facility] [address] [place] [address] Dr. Sera Quach Hemoglobin Ql (U) Negative Normal NEGATIVE [facility] Comment on above: Performed By: #### U AMIC #### [facility] [address] [address] [address] Sera Quach Ketones Ql (U) Negative Normal NEGATIVE [facility] Comment on above: Performed By: #### U AMIC #### [facility] [address] [place] [address] Dr. Sera Quach LEUKOCYTES Negative Normal NEGATIVE [facility] Comment on above: Performed By: #### U AMIC #### [facility] [address] [address] [address] Sera Quach MUCOUS NONE SEEN Normal NONE SEEN [facility] Comment on above: Performed By: #### U AMIC #### [facility] [address] [address] [address] Sera Quach Nitrite Ql (U) Negative Normal NEGATIVE [facility] Comment on above: Performed By: #### U AMIC #### [facility] [address] [place] [address] Dr. Sera Quach pH (U) 5.5 [pH] Normal 5-9 [facility] Comment on above: Performed By: #### U AMIC #### [facility] [address] [place] [address] Dr. Sera Quach RBC NONE SEEN Abnormal 0-2 [facility] Comment on above: Performed By: #### U AMIC #### [facility] [address] [place] [address] Dr. Sera Quach SPEC GRAVITY 1.025 Normal 1.005-<=1.02 5 [facility] Comment on above: Performed By: #### U AMIC #### [facility] [address] [place] [address] Dr. Sera Quach UA PROTEIN Negative Normal NEGATIVE/ TRACE [facility] Comment on above: Performed By: #### U AMIC #### [facility] [address] [place] [address] Dr. Sera Quach Urobilinogen Qn (U) 1.0 {Jessika'U}/dL Normal 0.2 - 1. 0 [facility] Comment on above: Performed By: #### U AMIC #### [facility] [address] [place] [address] Dr. Sera Quach WBC 0-2 Abnormal NONE SEEN [facility] Comment on above: Performed By: #### U AMIC #### [facility] [address] [place] [address] Dr. Sera Quach GLYCOHEMOGLOBIN A1Con 2020 ADA RECOMMENDATION ADA THERAPEUTIC TARG ET 6.0 - 7.0 ACTION SUGGESTED > 7.0 Normal [facility] Comment on above: Performed By: #### A 1C #### [facility] [address] [place] [address] Dania Ev Glucose [Mass/Vol] 174 mg/dL Normal [facility] Comment on above: Performed By: #### A 1C #### [facility] [address] [place], [place] [id number] Dania Ev HbA1c (Bld) [Mass fraction] 7.7 % Critically high <=6.0 [facility] Comment on above: Performed By: #### A 1C #### [facility] [address] [place] [address] Dania Riosen PROF CHEM 8 (BAS METB)on Anion gap [Moles/Vol] 9.0 mmol/L Normal [facility] Comment on above: Performed By: #### B MP #### [facility] [address] [place], [place] [id number] Dania Ev Calcium [Mass/Vol] 8.8 mg/dL Normal 8.4-10.2 [facility] Comment on above: Performed By: #### B MP #### [facility] [address] [place] [address] Dania Ev Chloride [Moles/Vol] 102 mmol/L Normal 98-107 [facility] Comment on above: Performed By: #### B MP #### [facility] [address] [place], [place] [id number] Dania Ev CO2 [Moles/Vol] 29.1 mmol/L Normal 22.0-30.0 [facility] Comment on above: Performed By: #### B MP #### [facility] [address] [place], [place] [address] Dania Ev Creatinine [Mass/Vol] 0.73 mg/dL Normal 0.66-1.25 [facility] Comment on above: Performed By: #### B MP #### [facility] [address] [place], [place] [address] Dania Ev EGFR-AF SCOTTISH >60 Normal >=60 [facility] Comment on above: Performed By: #### B MP #### [facility] [address] [id number] Dania Ev EGFR-NON AF SCOTTISH >60 Normal >=60 [facility] Comment on above: Performed By: #### B MP #### [facility] [address] [id number] Dania Ev Glucose [Mass/Vol] 141 mg/dL Critically high 74-106 T [facility] Comment on above: Performed By: #### B MP #### [facility] [address] [address] Dania Ev Potassium [Moles/Vol] 4.1 mmol/L Normal 3.4-5.0 [facility] Comment on above: Performed By: #### B MP #### [facility] [address] [id number] Dania Ev Sodium [Moles/Vol] 136 mmol/L Critically low 137-145 Th [facility] Comment on above: Performed By: #### B MP #### [facility] [address] [id number] Dania Ev Urea nitrogen [Mass/Vol] 9.0 mg/dL Normal 9.0-20.0 [facility] Comment on above: Performed By: #### B MP #### [facility] [address] [place], [place] [address] Dania Ev Urea nitrogen/Creatinine [Mass ratio] 12.3 mg/mg Normal [facility] Comment on above: Performed By: #### B MP #### [facility] [address] [place], [place] [address] Dania Ev Vital Signs Date Time Vital Sign Value Performing Clinician Facility 10-31-2024 08:21-0500 Body height 190.[address] 10-31-2024 08:21-0500 Body mass index (BMI) [Ratio] 37.55 kg/m2 Pfo 6 [facility] 10-31-2024 08:21-0500 Body temperature 97.2 [degF] Pfo 6 [facility] 10-31-2024 08:21-0500 Body weight 136.26 kg Pfo 6 [facility] 10-31-2024 08:21-0500 Diastolic blood pressure 89 mm[Hg] Pfo 6 [facility] 10-31-2024 08:21-0500 Heart rate 68 /min Pfo 6 [facility] 10-31-2024 08:21-0500 Respiratory rate 18 /min Pfo 6 [facility] 10-31-2024 08:21-0500 SaO2% (BldA) [Mass fraction] 97 % Pfo 6 [facility] 10-31-2024 08:21-0500 Systolic blood pressure 153 mm[Hg] Pfo 6 [facility] 10-28-2024 11:07-0500 Body mass index (BMI) [Ratio] 38.12 kg/m2 Cecy Hernandez VENDING MACHINE TECHNICIAN Work Phone: [facility] 10-28-2024 11:07-0500 Body temperature 98.1 [degF] Cecy David VENDING MACHINE TECHNICIAN Work Phone: [facility] 10-28-2024 11:07-0500 Body weight 138.35 kg Cecy David VENDING MACHINE TECHNICIAN Work Phone: [facility] 10-28-2024 11:07-0500 Diastolic blood pressure 88 mm[Hg] Cecy David VENDING MACHINE TECHNICIAN Work Phone: [facility] 10-28-2024 11:07-0500 Heart rate 63 /min Cecy David VENDING MACHINE TECHNICIAN Work Phone: [facility] 10-28-2024 11:07-0500 Respiratory rate 19 /min Cecy David VENDING MACHINE TECHNICIAN Work Phone: [facility] 10-28-2024 11:07-0500 SaO2% (BldA) [Mass fraction] 98 % Cecy Hernandez VENDING MACHINE TECHNICIAN Work Phone: [facility] 10-28-2024 11:07-0500 Systolic blood pressure 138 mm[Hg] Cecy Hernandez VENDING MACHINE TECHNICIAN Work Phone: [facility] 10-10-2024 08:32-0500 Body height 190.5 cm Pfo 6 [facility] 10-10-2024 08:32-0500 Body mass index (BMI) [Ratio] 38.6 kg/m2 Pfo 6 [facility] 10-10-2024 08:32-0500 Body temperature 97.2 [degF] Pfo 6 [facility] 10-10-2024 08:32-0500 Body weight 140.07 kg Pfo 6 [facility] 10-10-2024 08:32-0500 Diastolic blood pressure 81 mm[Hg] Pfo 6 [facility] 10-10-2024 08:32-0500 Heart rate 101 /min Pfo 6 [facility] 10-10-2024 08:32-0500 Respiratory rate 18 /min Pfo 6 [facility] 10-10-2024 08:32-0500 SaO2% (BldA) [Mass fraction] 98 % Pfo 6 [facility] 10-10-2024 08:32-0500 Systolic blood pressure 137 mm[Hg] Pfo 6 [facility] 10-07-2024 13:17-0500 Body height 190.5 cm Cisco Juan MD Work Phone: [facility] 10-07-2024 13:17-0500 Body mass index (BMI) [Ratio] 37.93 kg/m2 Cisco Juan MD Work Phone: [facility] 10-07-2024 13:17-0500 Body weight 137.67 kg Cisco Juan MD Work Phone: [facility] 10-07-2024 13:17-0500 Diastolic blood pressure 96 mm[Hg] Cisco Juan MD Work Phone: [facility] 10-07-2024 13:17-0500 Systolic blood pressure 146 mm[Hg] Cisco Juan MD Work Phone: [facility] 10-07-2024 11:35-0500 Diastolic blood pressure 84 mm[Hg] Cecy Haywoodolamidez VENDING MACHINE TECHNICIAN Work Phone: [facility] 10-07-2024 11:35-0500 Systolic blood pressure 132 mm[Hg] Cecy Aicpaulieholz VENDING MACHINE TECHNICIAN Work Phone: [facility] 10-07-2024 10:35-0500 Body height 190.5 cm Cecy Aichholz VENDING MACHINE TECHNICIAN Work Phone: [facility] 10-07-2024 10:35-0500 Body mass index (BMI) [Ratio] 38 kg/m2 Cecy Aichholz VENDING MACHINE TECHNICIAN Work Phone: [facility] 10-07-2024 10:35-0500 Body temperature 98.49 [degF] Cecy Yobanyhholz VENDING MACHINE TECHNICIAN Work Phone: [facility] 10-07-2024 10:35-0500 Body weight 137.89 kg Cecy Aichholz VENDING MACHINE TECHNICIAN Work Phone: [facility] 10-07-2024 10:35-0500 Heart rate 68 /min Cecy Aichholz VENDING MACHINE TECHNICIAN Work Phone: [facility] 10-07-2024 10:35-0500 Respiratory rate 19 /min Cecy Aichholz VENDING MACHINE TECHNICIAN Work Phone: [facility] 10-07-2024 10:35-0500 SaO2% (BldA) [Mass fraction] 98 % Cecy Aichholz VENDING MACHINE TECHNICIAN Work Phone: [facility] 09-19-2024 08:36-0500 Body height 190.5 cm Pfo 2 [facility] 09-19-2024 08:36-0500 Body mass index (BMI) [Ratio] 38.18 kg/m2 Pfo 2 [facility] 09-19-2024 08:36-0500 Body temperature 97 [degF] Pfo 2 [facility] 09-19-2024 08:36-0500 Body weight 138.57 kg Pfo 2 [facility] 09-19-2024 08:36-0500 Diastolic blood pressure 92 mm[Hg] Pfo 2 [facility] 09-19-2024 08:36-0500 Heart rate 97 /min Pfo 2 [facility] 09-19-2024 08:36-0500 Respiratory rate 18 /min Pfo 2 [facility] 09-19-2024 08:36-0500 SaO2% (BldA) [Mass fraction] 97 % Pfo 2 [facility] 09-19-2024 08:36-0500 Systolic blood pressure 143 mm[Hg] Pfo 2 [facility] 09-11-2024 12:59-0500 Body height 190.5 cm Lula Cota MD Work Phone: [facility] 09-11-2024 12:59-0500 Body mass index (BMI) [Ratio] 38 kg/m2 Lula Cota MD Work Phone: [facility] 09-11-2024 12:59-0500 Body weight 137.89 kg Lula Cota MD Work Phone: [facility] 09-11-2024 12:59-0500 Diastolic blood pressure 74 mm[Hg] Lula Cota MD Work Phone: [facility] 09-11-2024 12:59-0500 Respiratory rate 18 /min Lula Cota MD Work Phone: [facility] 09-11-2024 12:59-0500 Systolic blood pressure 128 mm[Hg] Lula Cota MD Work Phone: [facility] 08-22-2024 10:21-0500 Body height 190.5 cm Cisco Juan MD Work Phone: [facility] 08-22-2024 10:21-0500 Body mass index (BMI) [Ratio] 38.37 kg/m2 Cisco Juan MD Work Phone: [facility] 08-22-2024 10:21-0500 Body weight 139.25 kg Cisco Juan MD Work Phone: [facility] 08-22-2024 10:21-0500 Diastolic blood pressure 77 mm[Hg] Cisco Juan MD Work Phone: [facility] 08-22-2024 10:21-0500 Heart rate 104 /min Cisco Juan MD Work Phone: [facility] 08-22-2024 10:21-0500 Systolic blood pressure 126 mm[Hg] Cisco Juan MD Work Phone: [facility] 07-22-2024 18:34-0500 Body height 190.5 cm Cecy David VENDING MACHINE TECHNICIAN Work Phone: [facility] 07-22-2024 18:34-0500 Body mass index (BMI) [Ratio] 39.47 kg/m2 Cecy David VENDING MACHINE TECHNICIAN Work Phone: [facility] 07-22-2024 18:34-0500 Body temperature 98.01 [degF] Cecy David VENDING MACHINE TECHNICIAN Work Phone: [facility] 07-22-2024 18:34-0500 Body weight 143.25 kg Cecy David VENDING MACHINE TECHNICIAN Work Phone: [facility] 07-22-2024 18:34-0500 Diastolic blood pressure 86 mm[Hg] Cecy David VENDING MACHINE TECHNICIAN Work Phone: [facility] 07-22-2024 18:34-0500 Heart rate 95 /min Cecy David VENDING MACHINE TECHNICIAN Work Phone: [facility] 07-22-2024 18:34-0500 SaO2% (BldA) [Mass fraction] 96 % Cecy Hernandez VENDING MACHINE TECHNICIAN Work Phone: [facility] 07-22-2024 18:34-0500 Systolic blood pressure 120 mm[Hg] Cecy Gordonsher BISHOP Work Phone: [facility] 07-10-2024 09:46-0500 Body height 190.5 cm Darek Valdovinos MD Work Phone: [facility] 07-10-2024 09:46-0500 Body mass index (BMI) [Ratio] 39.9 kg/m2 Darek Valdovinos MD Work Phone: [facility] 07-10-2024 09:46-0500 Body weight 144.8 kg Darek Valdovinos MD Work Phone: [facility] 07-10-2024 09:46-0500 Diastolic blood pressure 79 mm[Hg] Darek Valdovinos MD Work Phone: [facility] 07-10-2024 09:46-0500 Heart rate 78 /min Darek Valdovinos MD Work Phone: [facility] 07-10-2024 09:46-0500 Systolic blood pressure 139 mm[Hg] Darek Valdovinos MD Work Phone: [facility] 06-22-2024 19:45-0400 Body height 190.5 cm Hector Napoles MD Work Phone: [facility] 06-22-2024 19:45-0400 Body mass index (BMI) [Ratio] 40.62 kg/m2 Hector Napoles MD Work Phone: [facility] 06-22-2024 19:45-0400 Body weight 147.42 kg Hector Napoles MD Work Phone: [facility] 06-22-2024 19:44-0400 Body temperature 99.1 [degF] Hector Napoles MD Work Phone: [facility] 06-22-2024 19:44-0400 Diastolic blood pressure 77 mm[Hg] Hector Napoles MD Work Phone: [facility] 06-22-2024 19:44-0400 Heart rate 98 /min Hector Napoles MD Work Phone: [facility] [employer] [facility] 06-22-2024 19:44-0400 Respiratory rate 16 /min Hector Napoles MD Work Phone: [facility] 06-22-2024 19:44-0400 SaO2% (BldA) [Mass fraction] 98 % Hector Napoles MD Work Phone: [facility] 06-22-2024 19:44-0400 Systolic blood pressure 167 mm[Hg] Hector Napoles MD Work Phone: [facility] 06-18-2024 22:15-0400 [facility] 76 /[facility] 06-18-2024 22:15-0400 [facility]piratory rate 17 /[facility] 06-18-2024 22:15-0400 SaO2% (BldA) [Mass fraction] 98 % [facility] [employer] [facility] 06-18-2024 22:14-0400 Diastolic blood pressure 88 mm[Hg] [facility] [facility] 06-18-2024 22:14-0400 Systolic blood pressure 122 mm[Hg] [facility] [employer] [facility] 06-18-2024 19:22-0400 Body height 190.5 cm [facility] 06-18-2024 19:22-0400 Body mass index (BMI) [Ratio] 40.62 kg/m2 [facility] 06-18-2024 19:22-0400 Body weight 147.42 kg [facility] 06-18-2024 19:21-0400 Body temperature 98.4 [degF] [facility] 06-12-2024 13:14-0400 Body weight 148.33 kg Lula Cota MD Work Phone: [facility] [employer] [facility] 06-12-2024 13:14-0400 Diastolic blood pressure 78 mm[Hg] Lula Cota MD Work Phone: [facility] 06-12-2024 13:14-0400 Respiratory rate 18 /min Llua Cota MD Work Phone: [facility] 06-12-2024 13:14-0400 Systolic blood pressure 122 mm[Hg] Lula Cota MD Work Phone: [facility] 05-21-2024 14:13-0400 Body height 190.5 cm Cecy Hernandez VENDING MACHINE TECHNICIAN Work Phone: [facility] 05-21-2024 14:13-0400 Body mass index (BMI) [Ratio] 40.52 kg/m2 Cecyap Gordonholz VENDING MACHINE TECHNICIAN Work Phone: [facility] 05-21-2024 14:13-0400 Body temperature 98.8 [degF] Cecy Yobanyhholz VENDING MACHINE TECHNICIAN Work Phone: [facility] 05-21-2024 14:13-0400 Body weight 147.06 kg Cecyap Caballeroz VENDING MACHINE TECHNICIAN Work Phone: [facility] 05-21-2024 14:13-0400 Diastolic blood pressure 82 mm[Hg] Cecy Evanholz VENDING MACHINE TECHNICIAN Work Phone: [facility] 05-21-2024 14:13-0400 Heart rate 87 /min Cecy Yobanyhholz VENDING MACHINE TECHNICIAN Work Phone: [facility] 05-21-2024 14:13-0400 Respiratory rate 19 /min Cecy Evanholz VENDING MACHINE TECHNICIAN Work Phone: [facility] 05-21-2024 14:13-0400 SaO2% (BldA) [Mass fraction] 99 % Cecy Evanholz VENDING MACHINE TECHNICIAN Work Phone: [facility] 05-21-2024 14:13-0400 Systolic blood pressure 138 mm[Hg] Cecy Yobanyhholz VENDING MACHINE TECHNICIAN Work Phone: [facility] 05-01-2024 15:32-0400 Body height 190.5 cm Maryjane COLÓN Work Phone: [facility] 05-01-2024 15:32-0400 Body mass index (BMI) [Ratio] 41.37 kg/m2 Maryjane COLÓN Work Phone: [facility] 05-01-2024 15:32-0400 Body weight 150.14 kg Maryjane Liang PA Work Phone: [facility] 05-01-2024 15:32-0400 Diastolic blood pressure 84 mm[Hg] Maryjane Liang PA Work Phone: [facility] 05-01-2024 15:32-0400 Heart rate 80 /min Maryjane Liang PA Work Phone: [facility] 05-01-2024 15:32-0400 Respiratory rate 16 /min Maryjane Liang PA Work Phone: [facility] 05-01-2024 15:32-0400 SaO2% (BldA) [Mass fraction] 96 % Maryjane Liang PA Work Phone: [facility] 05-01-2024 15:32-0400 Systolic blood pressure 132 mm[Hg] Maryjane Liang PA Work Phone: [facility] 04-17-2024 14:18-0400 Body weight 151.96 kg Lula Cota MD Work Phone: [facility] 04-17-2024 14:18-0400 Diastolic blood pressure 72 mm[Hg] Lula Cota MD Work Phone: [facility] 04-17-2024 14:18-0400 Respiratory rate 18 /min Lula Cota MD Work Phone: [facility] 04-17-2024 14:18-0400 Systolic blood pressure 118 mm[Hg] Lula Cota MD Work Phone: [facility] 03-30-2024 12:00-0400 Body temperature 98 [degF] Cecy Hernandez Work Phone: [facility] 03-30-2024 12:00-0400 Diastolic blood pressure 88 mm[Hg] Cecy Hernandez Work Phone: [facility] 03-30-2024 12:00-0400 Heart rate 80 /min Cecy Aichholz Work Phone: [facility] 03-30-2024 12:00-0400 Respiratory rate 19 /min Cecy Aichholz Work Phone: [facility] 03-30-2024 12:00-0400 SaO2% (BldA) [Mass fraction] 95 % Cecy Aichholz Work Phone: [facility] 03-30-2024 12:00-0400 Systolic blood pressure 140 mm[Hg] Cecy Aichholz Work Phone: [facility] 03-30-2024 02:25-0400 Body height 190.5 cm Cecy Aichholz Work Phone: [facility] 03-30-2024 02:25-0400 Body weight 151.5 kg Cecy Aichholz Work Phone: [facility] 03-30-2024 02:03-0400 Body temperature 98.3 [degF] Cecy Aichholz Work Phone: [facility] 03-30-2024 02:03-0400 Diastolic blood pressure 73 mm[Hg] Cecy Aichholz Work Phone: [facility] 03-30-2024 02:03-0400 Heart rate 62 /min Cecy Aichholz Work Phone: [facility] 03-30-2024 02:03-0400 Respiratory rate 18 /min Cecy Aichholz Work Phone: [facility] 03-30-2024 02:03-0400 SaO2% (BldA) [Mass fraction] 96 % Cecy Aichholz Work Phone: [facility] 03-30-2024 02:03-0400 Systolic blood pressure 133 mm[Hg] Cecy Aichholz Work Phone: [facility] 03-29-2024 22:19-0400 Body height 190.5 cm Cecy Aichholz Work Phone: [facility] 03-29-2024 22:19-0400 Body weight 151.9 kg Cecy Aichholz Work Phone: [facility] 03-25-2024 16:05-0400 Diastolic blood pressure 83 mm[Hg] Cecy Aichholz Work Phone: [facility] 03-25-2024 16:05-0400 Heart rate 86 /min Cecy Aichholz Work Phone: [facility] 03-25-2024 16:05-0400 Respiratory rate 18 /min Cecy Aichholz Work Phone: [facility] 03-25-2024 16:05-0400 SaO2% (BldA) [Mass fraction] 98 % Cecy Aichholz Work Phone: [facility] 03-25-2024 16:05-0400 Systolic blood pressure 120 mm[Hg] Cecy Aichholz Work Phone: [facility] 03-25-2024 09:37-0400 Body temperature 98 [degF] Cecy Aichholz Work Phone: [facility] 03-25-2024 06:32-0400 Body weight 149.5 kg Cecy Aichholz Work Phone: [facility] 03-23-2024 03:31-0400 Body height 190.5 cm Cecy Aichholz Work Phone: [facility] 10-08-2021 13:30-0500 Body height 190.5 cm Yue Pedroza Other [facility] [employer] Other 10-08-2021 13:30-0500 Body mass index (BMI) [Ratio] 45.12 kg/m2 Yue Pedroza Other [employer] Other 10-08-2021 13:30-0500 Body temperature 96.6 [degF] Yue Pedroza Other [employer] Other 10-08-2021 13:30-0500 Body weight 163.75 kg Yue Pedroza Other [employer] Other 10-08-2021 13:30-0500 SaO2% (BldA) [Mass fraction] 98 % Yue Pedroza Other [employer] Other Encounters Encounter Date Encounter Type Care Provider Facility Start: 10-31-2024 End: 10-31-2024 ambulatory Pfo Infusion Chair 6 Ester Warren [facility] Comment on above: CIDP (chronic inflam matory demyelinating polyneuropathy) (CMS- HCC) (Primary Dx) Start: 10-30-2024 End: 10-30-2024 Clinisync Result Encounter Cecy Hernandez NP Work Phone: [facility] External Department Unsolicited Start: 10-30-2024 End: 10-30-2024 Clinisync Result Encounter Cecy Hernandez NP Work Phone: [facility] External Department Unsolicited Start: 10-28-2024 End: 10-28-2024 Office outpatient visit 25 minutes Cecy Hernandez VENDING MACHINE TECHNICIAN Work Phone: [facility] Comment on above: Bilateral lower extr emity edema (Primary Dx); CIDP (chronic inflammatory demyelinating polyneuropathy) (CMS/HCC); Essential hypertension, benign (CMS/HCC); Morbid (severe) obesity due to excess calories (CMS/HCC); Type 2 diabetes mellitus without complication, without long-term current use of insulin (CMS/HCC); Generalized anxiety disorder (CMS/HCC); Moderate episode of recurrent major depressive disorder (CMS/HCC); Major depressive disorder, recurrent, moderate (CMS/HCC); Obesity, Class II, BMI 35-39.9 Start: 10-28-2024 End: 10-28-2024 ambulatory CECY HERNANDEZ Not Available Start: 10-25-2024 End: 10-25-2024 Patient encounter procedure Cecy Hernandez Work Phone: [facility] [facility] Start: 10-25-2024 End: 10-25-2024 ambulatory Cecy Hernandez Work Phone: [facility] Work Phone: Start: 10-22-2024 End: 10-22-2024 Refill Cecy Hernandez VENDING MACHINE TECHNICIAN Work Phone: [facility] Comment on above: CIDP (chronic inflam matory demyelinating polyneuropathy) (CMS/HCC) (Primary Dx) Start: 10-14-2024 End: 10-14-2024 Orders Only Cecy Hernandez NP Work Phone: [facility] Comment on above: CIDP (chronic inflam matory demyelinating polyneuropathy) (CMS/HCC) (Primary Dx); Paresthesia of skin; Muscle weakness (generalized); Myopathy; Upper extremity weakness; Autoimmune disease (CMS/HCC); Rheumatoid arthritis with rheumatoid factor, unspecified (CMS/HCC); Weakness CIDP (chronic inflam matory demyelinating polyneuropathy) (CMS/HCC) (Primary Dx); Paresthesia of skin; Muscle weakness (generalized); Myopathy; Autoimmune disease (CMS/HCC); Rheumatoid arthritis with rheumatoid factor, unspecified (CMS/HCC); Weakness Start: 10-11-2024 End: 10-11-2024 Telephone encounter Cecy Hernandez VENDING MACHINE TECHNICIAN Work Phone: [facility] Start: 10-10-2024 End: 10-10-2024 ambulatory [facility] Comment on above: CIDP (chronic inflam matory demyelinating polyneuropathy) (CMS- HCC) (Primary Dx) Start: 10-07-2024 End: 10-07-2024 Bamboo flowsheet Cecy Hernandez VENDING MACHINE TECHNICIAN Work Phone: [facility] Start: 10-07-2024 End: 10-07-2024 Bamboo flowsheet Cecy Hernandez VENDING MACHINE TECHNICIAN Work Phone: [facility] Start: 10-07-2024 End: 10-07-2024 ambulatory [facility] Start: 10-07-2024 End: 10-07-2024 ambulatory CECY DAVID Not Available Start: 10-07-2024 End: 10-07-2024 Office outpatient visit 40 minutes Cecy Hernandez VENDING MACHINE TECHNICIAN Work Phone: [facility] Comment on above: CIDP (chronic inflam matory demyelinating polyneuropathy) (CMS/HCC) (Primary Dx); Major depressive disorder, recurrent, moderate (CMS/HCC); Morbid (severe) obesity due to excess calories (CMS/HCC); Essential (primary) hypertension (CMS/HCC); Body mass index (BMI) 39.0-39.9, adult; Rheumatoid arthritis with rheumatoid factor, unspecified (CMS/HCC); Type 2 diabetes mellitus without complications (CMS/HCC); Essential hypertension, benign (CMS/HCC); Type 2 diabetes mellitus without complication, without long-term current use of insulin (CMS/HCC); Upper extremity weakness Hunger, initial enco unter (Primary Dx); CIDP (chronic inflammatory demyelinating polyneuropathy) (CMS-HCC) Start: 09-19-2024 End: 09-19-2024 ambulatory Pfo Infusion Chair 2 Ester Warren [facility] Comment on above: CIDP (chronic inflam matory demyelinating polyneuropathy) (CMS- HCC) (Primary Dx) Start: 09-11-2024 End: 09-11-2024 Office outpatient visit 25 minutes Lula Cota MD Work Phone: [facility] Comment on above: Primary osteoarthrit is of both hands (Primary Dx); CIDP (chronic inflammatory demyelinating polyneuropathy) (CMS-HCC); Diabetic cheirarthropathy (CMS-HCC) Start: 09-11-2024 End: 09-11-20[facility] Start: 09-09-2024 End: 09-09-2024 ambulatory CECY Ruth [facility] Start: 08-23-2024 End: 08-23-2024 Telephone encounter Maeve Sgeura [facility] Comment on above: IVIG Start: 08-22-2024 End: 08-22-2024 Office outpatient new 60 minutes Cisco Juan MD Work Phone: [facility] Comment on above: CIDP (chronic inflam matory demyelinating polyneuropathy) ([facility]); Primary osteoarthritis of both hands Start: 08-22-2024 End: 08-22-2024 ambulatory CISCO JUAN [facility] Start: 08-16-2024 End: 08-16-2024 Orders Only Cisco Juan MD Work Phone: [facility] Comment on above: CIDP (chronic inflam matory demyelinating polyneuropathy) ([facility]) (Primary Dx) Start: 08-14-2024 End: 08-14-2024 [facility] Start: 08-12-2024 End: 08-12-2024 ambulatory [facility] Start: 08-09-2024 End: 08-15-2024 [facility] Start: 08-08-2024 End: 08-08-2024 Emergency department patient visit [facility] Start: 08-08-2024 ambulatory [facility] Start: 08-06-2024 End: 08-06-2024 Telephone encounter Maryjane COLÓN Work Phone: [facility] Comment on above: Home Health Start: 07-30-2024 End: 07-30-2024 Refill [facility]y [facility] NP [facility] Comment on above: Type 2 diabetes genet itus without complication, without long- term current use of insulin ([facility]/HCC) Start: 07-22-2024 End: 07-22-2024 Office outpatient visit 25 minutes Cecy Hernandez NP Work Phone: [facility] Comment on above: Upper extremity weak ness (Primary Dx); Depression, unspecified ([facility]); Type 2 diabetes mellitus without complication, without long-term current use of insulin ([facility]); Essential hypertension, benign ([facility]); Essential (primary) hypertension ([facility]); Type 2 diabetes mellitus without complications ([facility]); Obesity, Class II, BMI 35-39.9; Weakness; Rheumatoid arthritis with rheumatoid factor, unspecified ([facility]); Autoimmune disease ([facility]); Moderate episode of recurrent major depressive disorder ([facility]) Start: 07-22-2024 End: 07-22-2024 ambulatory CECY HERNANDEZ Not Available Start: 07-22-2024 End: 07-22-2024 Bamboo flowsheet Cecy Hernandez VENDING MACHINE TECHNICIAN Work Phone: [facility] Start: 07-22-2024 End: 07-22-2024 Bamboo flowsheet Cecy Hernandez VENDING MACHINE TECHNICIAN Work Phone: [facility] Start: 07-11-2024 End: 07-11-2024 Social Work Marvin Maldonado [facility] Primary Care Social Work Comment on above: Financial difficulty (Primary Dx) Start: 07-10-2024 End: 07-10-2024 Office outpatient new 45 minutes Darek Valdovinos MD Work Phone: Neurology Comment on above: Brachial plexopathy (Primary Dx); Obesity, Class II, BMI 35-39.9 Start: 07-10-2024 End: 07-10-2024 ambulatory DAREK VALDOVINOS Facility:[facility] Start: 06-27-2024 End: 06-27-2024 Refill Cecy Hernandez VENDING MACHINE TECHNICIAN Work Phone: [facility] Comment on [...] Department Unsolicited Start: 06-24-2024 End: 06-26-2024 ambulatory [facility] Facility[facility] Start: 06-24-2024 End: 06-25-2024 Clinisync Result Encounter Generic External Data Provider [facility] External Department Unsolicited Start: 06-24-2024 End: 06-25-2024 Clinisync Result Encounter Generic External Data Provider [facility] External Department Unsolicited Start: 06-22-2024 End: 06-22-2024 Emergency department patient visit Hector Napoles MD Work Phone: [facility] Emergency Department Start: 06-18-2024 End: 06-18-2024 Emergency department patient visit [facility] Emergency Department Start: 06-12-2024 End: 06-12-2024 Office outpatient visit 25 minutes Lula Cota MD Work Phone: [facility] Comment on above: Primary osteoarthrit is of both hands (Primary Dx); Myopathy; Diabetic cheirarthropathy ([facility]-HCC) Start: 06-12-2024 End: 06-12-2024 ambulatory [facility] Start: 06-07-2024 End: 06-07-2024 ambulatory [facility] Start: 05-29-2024 End: 05-29-2024 Refill Cecy Hernandez NP Work Phone: [facility] Comment on above: Type 2 diabetes genet itus without complication, without long- term current use of insulin (CMS/HCC); Type 2 diabetes mellitus without complications ([facility]/HCC); Depression, unspecified ([facility]); Other chronic pain Start: 05-28-2024 End: 05-28-2024 Clinisync Result Encounter Cecy Hernandez VENDING MACHINE TECHNICIAN Work Phone: [facility] External Department Unsolicited Start: 05-28-2024 End: 05-28-2024 Clinisync Result Encounter Cecy Hernandez VENDING MACHINE TECHNICIAN Work Phone: [facility] External Department Unsolicited Start: 05-21-2024 End: 05-21-2024 Bamboo flowsheet Cecy Hernandez VENDING MACHINE TECHNICIAN Work Phone: [facility] Start: 05-21-2024 End: 05-21-2024 Bamboo flowsheet Cecy Hernandez VENDING MACHINE TECHNICIAN Work Phone: [facility] Start: 05-21-2024 End: 05-21-2024 Office outpatient visit 15 minutes Cecy Hernandez VENDING MACHINE TECHNICIAN Work Phone: [facility] Comment on above: Essential hypertensi on, benign (CMS/HCC) (Primary Dx); Type 2 diabetes mellitus without complication, without long-term current use of insulin (CMS/HCC); Body mass index (BMI) 40.0-44.9, adult (CMS/HCC); Morbid (severe) obesity due to excess calories (CMS/HCC) Start: 05-21-2024 End: 05-21-2024 ambulatory CECY HERNANDEZ Not Available Start: 05-01-2024 End: 05-01-2024 Office outpatient visit 15 minutes Maryjane COLÓN Work Phone: [facility] [place] [facility] Comment on above: Sensory disturbance (Primary Dx); Weakness; Degenerative disc disease, cervical Start: 05-01-2024 End: 05-01-2024 ambulatory MARYJANE LIANG Not Available Start: 05-01-2024 End: 05-01-2024 Bamboo flowsheet Maryjane COLÓN Work Phone: [facility] [address] Start: 05-01-2024 End: 05-01-2024 Bamboo flowsheet Maryjane COLÓN Work Phone: [facility] [address] [facility] Start: 04-30-2024 End: 04-30-2024 Refill Cecy Aichholz VENDING MACHINE TECHNICIAN Work Phone: [facility] Comment on above: Type 2 diabetes genet itus without complication, without long- term current use of insulin ([facility]) Start: 04-24-2024 End: 04-24-2024 Orders Only Cecy Aichholz VENDING MACHINE TECHNICIAN Work Phone: [facility] Comment on above: Upper extremity weak ness (Primary Dx) Start: 04-17-2024 End: 04-17-2024 ambulatory LULA COTA [facility] Start: 04-17-2024 End: 04-17-2024 Office outpatient visit 25 minutes Lula Cota MD Work Phone: [facility] Comment on above: RAVINDER positive (Primar y Dx); Primary osteoarthritis of both hands; Diabetic cheirarthropathy ([facility]) Start: 04-04-2024 End: 04-04-2024 ambulatory CECY AICHHOLZ Not Available Start: 04-03-2024 End: 04-03-2024 ambulatory MARYJANE LIANG Not Available Start: 03-30-2024 End: 03-30-[address] Facility:[facility] Start: 03-30-2024 End: 03-30-2024 Evaluation and management of inpatient Cecy Aichholz Work Phone: [facility] Work Phone: Start: 03-30-2024 End: 03-30-2024 observation encounter Cecy J Yobanyhfroylanz Work Phone: [facility] Work Phone: Start: 03-23-2024 End: 03-25-2024 Evaluation and management of inpatient Cecy Aichholz Work Phone: [facility] Work Phone: Start: 03-04-2024 End: 03-04-2024 ambulatory JULIET HWANG Not Available Start: 02-20-2024 End: 02-20-2024 ambulatory CECY AICHHOLZ Not Available Start: 02-13-2024 End: 02-13-2024 ambulatory TANA MARTINO Not Available Start: 02-10-2024 End: 02-14-2024 Refill Lula Cota MD Work Phone: [facility] Start: 02-07-2024 End: 02-07-2024 ambulatory VICKY SCRUGGS Not Available Start: 11-16-2023 End: 11-16-2023 ambulatory CECY AICHHOLZ Not Available Start: 11-12-2023 Refill Lula Cota MD Work Phone: [facility] Start: 10-11-2023 Refill Cecy Aichholz VENDING MACHINE TECHNICIAN Work Phone: [facility] Comment on above: Type 2 diabetes genet itus without complication, without long- term current use of insulin ([facility]) (Primary Dx); Type 2 diabetes mellitus without complications (CMS/HCC) Start: 04-23-2022 End: 04-23-2022 ambulatory BRAZER INDUCTION CECY AICHHOLZ Facility:[facility] Start: 01-11-2022 End: 01-12-2022 ambulatory BRAZER INDUCTION CECY AICHHOLZ Facility:[facility] Start: 10-08-2021 End: 10-08-2021 ambulatory Yue Pedroza Other [employer] Other Start: 10-08-2021 Office outpatient vi sit 15 minutes Yue Pedroza [facility] Start: 06-07-2021 End: 06-07-2021 ambulatory BRAZER INDUCTION CECY AICHHOLZ Facility:[facility] Start: 05-05-2021 End: 05-06-2021 ambulatory BRAZER INDUCTION CECY AICHHOLZ Facility:[facility] Start: 06-08-2018 End: 06-09-2018 Patient encounter procedure DEFAULT PHYSICIAN Facility:[facility] Start: 11-07-2013 End: 11-07-2013 Telephone encounter Haylee Garcia Work Phone: Rheumatology Comment on above: Appointment Cancelle d Procedures Date Procedure Procedure Detail Performing Clinician Start: 10-30-2024 ALL CBC WITH AUTO DIFF Cecy David VENDING MACHINE TECHNICIAN Work Phone: Start: 10-07-2024 Hemoglobin glycosylated a1c Cecy David VENDING MACHINE TECHNICIAN Work Phone: Start: 10-07-2024 Adult depression scr eening assessment Cisco Juan MD Work Phone: Start: 08-10-2024 Cyclic citrullinated peptide antibody LULA COTA Comment on above: Result Comment: Interpretation-------- <3 Negative >=3 Positive Performed By: #### C BCA, 30287-1, CMP, 1988-5, 4485-9, 4498-2, ENAP #### [facility] ([id number]) [address] [place] [address], [address] [place] [address] Start: 08-10-2024 Adult depression scr eening assessment Cisco Juan MD Work Phone: Start: 06-26-2024 [facility] CBC PNL BLD AUTO Ge neric External Data Provider Start: 06-25-2024 [facility] VIT B12 SERPL-[facility]NC Generic External Data Provider Start: 06-24-2024 [facility] RAVINDER BY IFA WITH REFLEX Generic External Data Provider Start: 05-28-2024 MLR HEMOGLOBIN A1C Cecy Hernandez VENDING MACHINE TECHNICIAN Work Phone: Start: 04-23-2024 Colonoscopy Cecy quijano VENDING MACHINE TECHNICIAN Work Phone: Start: 03-29-2024 CT of head [...] Screening for malign ant neoplasm of colon [facility] Start: 06-26-2027 Diabetes Screening Diabetes Screenin g [facility] Start: 10-31-2025 Adult BMI Screening Adult BMI Screen ing [facility] Start: 10-31-2025 Tobacco Screening Tobacco Screening [facility] Start: 10-07-2025 Adult BMI Screening Adult BMI Screen ing [facility] Start: 10-07-2025 Depression Screening Depression Scre ening [facility] Start: 10-07-2025 Tobacco Screening Tobacco Screening [facility] Start: 09-19-2025 Adult BMI Screening Adult BMI Screen ing [facility] Start: 09-11-2025 Adult BMI Screening Adult BMI Screen ing [facility] Start: 08-22-2025 Adult BMI Screening Adult BMI Screen ing [facility] Start: 08-22-2025 Tobacco Screening Tobacco Screening [facility] Start: 08-13-2025 Adult BMI Screening Adult BMI Screen ing [facility] Start: 08-10-2025 Depression Screening Depression Scre ening [facility] Start: 08-10-2025 Tobacco Screening Tobacco Screening [facility] Start: 04-10-2025 End: 04-10-2025 Patient encounter procedure 04/10/2025 12:00 PM EDT Office Visit [facility] [address] [place] [address] Lula Cota MD [address] [address] [facility] Start: 04-06-2025 Hemoglobin A1c measurement Diabetes: Hemoglobin A1C [facility] Start: 03-11-2025 End: 09-11-2025 C-reactive protein C-reactive protein Lab Routine Primary osteoarthritis of both hands Expected: 03/11/2025 (Approximate), Expires: 09/11/2025 [facility] Comment on above: Expected: 03/11/2025 (Approximate), Expires: 09/11/2025 Start: 03-11-2025 End: 09-11-2025 Erythrocyte sedimentation rate Erythrocyte Sedimentation Rate (ESR) Lab Routine Primary osteoarthritis of both hands Expected: 03/11/2025 (Approximate), Expires: 09/11/2025 [facility] Work Phone: Comment on above: Expected: 03/11/2025 (Approximate), Expires: 09/11/2025 Start: 02-15-2025 Urine screening for protein Diabetes: Urine Protein Screening [facility] Start: 12-26-2024 End: 12-26-2024 Patient encounter procedure 12/26/2024 10:30 AM EDT Office Visit [facility] [address] [place] [address] Cecy Hernandez NP [address] [place] [address] [facility] Start: 12-23-2024 Hemoglobin A1c measurement Diabetes: Hemoglobin A1C [facility] Start: 11-26-2024 Hemoglobin A1c measurement Diabetes: Hemoglobin A1C [facility] Start: 11-21-2024 End: 11-21-2024 ambulatory 11/21/2024 8:30 AM EDT Infusion Ester Warren [facility] - Medical Oncology [address] [place] [phone] Ester Schreiber [facility] - Medical Oncology Start: 11-14-2024 End: 11-14-2024 Patient encounter procedure 11/14/2024 3:00 PM EDT Office Visit [facility] [address] [place] [phone] [place] [address] [place] [address] [facility] Start: 10-31-2024 End: 10-31-2024 ambulatory 10/31/2024 8:30 AM EST Infusion Ester Schreiber [facility] - Medical Oncology [address] [place] [phone] Ester Warren [facility] - Medical Oncology Start: 10-28-2024 End: 10-28-2025 CBC W Auto Differential panel - Blood CBC and differential Lab Routine CIDP (chronic inflammatory demyelinating polyneuropathy) (CMS/HCC) Expected: 10/28/2024 (Approximate), Expires: 10/28/2025 [facility] Work Phone: Comment on above: Expected: 10/28/2024 (Approximate), Expires: 10/28/2025 Start: 10-28-2024 End: 10-28-2025 Comprehensive metabolic 2000 panel - Serum or Plasma Comprehensive metabolic panel Lab Routine Essential hypertension, benign (CMS/HCC) Morbid (severe) obesity due to excess calories (CMS/HCC) Type 2 diabetes mellitus without complication, without long-term current use of insulin (CMS/HCC) Expected: 10/28/2024 (Approximate), Expires: 10/28/2025 [facility] Comment on above: Expected: 10/28/2024 (Approximate), Expires: 10/28/2025 Start: 10-28-2024 End: 10-28-2025 Lipid 1996 panel - Serum or Plasma Lipid panel Lab Routine Type 2 diabetes mellitus without complication, without long-term current use of insulin (CMS/HCC) Expected: 10/28/2024 (Approximate), Expires: 10/28/2025 [facility] Comment on above: Expected: 10/28/2024 (Approximate), Expires: 10/28/2025 Start: 10-28-2024 End: 10-28-2025 Microalbumin/Creatinine panel in random Urine Microalbumin / creatinine, urine ratio Lab Routine Essential hypertension, benign (CMS/HCC) Type 2 diabetes mellitus without complication, without long-term current use of insulin (CMS/HCC) Expected: 10/28/2024 (Approximate), Expires: 10/28/2025 [facility] Comment on above: Expected: 10/28/2024 (Approximate), Expires: 10/28/2025 Start: 10-28-2024 End: 10-28-2025 Urinalysis complete panel - Urine Urinalysis with reflex microscopic (clean catch) Lab Routine Essential hypertension, benign (CMS/HCC) Type 2 diabetes mellitus without complication, without long-term current use of insulin (CMS/HCC) Expected: 10/28/2024 (Approximate), Expires: 10/28/2025 [facility] Comment on above: Expected: 10/28/2024 (Approximate), Expires: 10/28/2025 Start: 10-28-2024 End: 10-28-2024 Patient encounter procedure 10/28/2024 11:00 AM EST [facility] [address] [place] [address] Cecy Hernandez NP [address] [place] [address] [facility] Start: 10-10-2024 End: 10-10-2024 ambulatory 10/10/2024 8:30 AM EST Infusion Ester L Kelvin [facility] - Medical Oncology [address] [place] [phone] Ester Warren [facility] - Medical Oncology Start: 10-07-2024 End: 10-07-2024 Patient encounter procedure 10/07/2024 1:00 PM EST Office Visit [facility] [address] [place] [phone] Cisco Juan MD [address] [place] [address] [facility] Start: 09-19-2024 End: 09-19-2024 ambulatory 09/19/2024 8:30 AM EST Infusion Ester L Kelvin [facility] - Medical Oncology [address] [place] [phone] Ester Warren [facility] - Medical Oncology Start: 09-12-2024 End: 06-12-2025 C-reactive protein C-reactive protein Lab Routine Primary osteoarthritis of both hands Expected: 09/12/2024 (Approximate), Expires: 06/12/2025 [facility] Comment on above: Expected: 09/12/2024 (Approximate), Expires: 06/12/2025 Start: 09-12-2024 End: 06-12-2025 CBC W Auto Differential panel - Blood CBC auto differential Lab Routine Primary osteoarthritis of both hands Expected: 09/12/2024 (Approximate), Expires: 06/12/2025 [facility] Comment on above: Expected: 09/12/2024 (Approximate), Expires: 06/12/2025 Start: 09-12-2024 End: 06-12-2025 Comprehensive metabolic 2000 panel - Serum or Plasma Comprehensive metabolic panel Lab Routine Primary osteoarthritis of both hands Expected: 09/12/2024 (Approximate), Expires: 06/12/2025 [facility] Comment on above: Expected: 09/12/2024 (Approximate), Expires: 06/12/2025 Start: 09-12-2024 End: 06-12-2025 Erythrocyte sedimentation rate Erythrocyte Sedimentation Rate (ESR) Lab Routine Primary osteoarthritis of both hands Expected: 09/12/2024 (Approximate), Expires: 06/12/2025 [facility] Work Phone: Comment on above: Expected: 09/12/2024 (Approximate), Expires: 06/12/2025 Start: 09-11-2024 End: 09-11-2024 Patient encounter procedure [facility] Start: 08-22-2024 End: 08-22-2024 Patient encounter procedure 08/22/2024 11:00 AM EST Office Visit [facility] [address] [place] [phone] Cisco Juan MD [address] [place] [address] [facility] Start: 08-19-2024 End: 08-19-2024 Patient encounter procedure 08/19/2024 3:40 PM EST Office Visit [facility] [address] [place] [address] Cecy Hernandez, VENDING MACHINE TECHNICIAN [address] [place] [address] [facility] Start: 08-17-2024 Hemoglobin A1c measurement Diabetes: Hemoglobin A1C [facility] Start: 07-23-2024 End: 07-23-2024 Patient encounter procedure 07/23/2024 11:20 AM EST [facility] [address] [place] [address] Maryjane Liang PA [address] [place] [address] [facility] Start: 07-22-2024 End: 07-22-2024 Patient encounter procedure 07/22/2024 6:30 PM EST Office Visit [facility] [address] [place] [address] Cecy Hernandez, DARIO [address] [place] [phone] Arrived [facility] Comment on above: Arrived Start: 07-18-2024 End: 07-18-2024 Patient encounter procedure 07/18/2024 2:40 PM EST Office Visit [facility] [address] [place] [address] Cecy Hernandez, VENDING MACHINE TECHNICIAN [address] [place] [address] [facility] Start: 06-27-2024 Influenza vaccination Influenza Vacc ine (#1) [facility] Comment on above: Postponed from 04/28 (Patient Does Not Have Time) Start: 06-12-2024 End: 06-12-2025 CK Total CK Total Lab Routine Primary osteoarthritis of both hands Expected: 06/12/2024 (Approximate), Expires: 06/12/2025 [facility] Comment on above: Expected: 06/12/2024 (Approximate), Expires: 06/12/2025 Start: 06-12-2024 End: 06-12-2025 Cyanocobalamin vitamin b-12 Vitamin B12 Lab Routine Primary osteoarthritis of both hands Expected: 06/12/2024, Expires: 06/12/2025 [facility] Comment on above: Expected: 06/12/2024 , Expires: 06/12/2025 Start: 06-12-2024 End: 06-12-2025 LDH LDH Lab Routine Primary osteoarthritis of both hands Expected: 06/12/2024 (Approximate), Expires: 06/12/2025 [facility] Comment on above: Expected: 06/12/2024 (Approximate), Expires: 06/12/2025 Start: 06-12-2024 End: 06-12-2025 Thyrotropin [Units/volume] in Serum or Plasma [facility] Comment on above: Expected: 06/12/2024 , Expires: 06/12/2025 Start: 06-12-2024 End: 06-12-2025 Unlisted Lab Test Unlisted Lab Test Lab Routine Myopathy Expected: 06/12/2024, Expires: 06/12/2025 [facility] Comment on above: Expected: 06/12/2024 , Expires: 06/12/2025 Start: 06-12-2024 End: 06-12-2025 Vitamin D 25 hydroxy Vitamin D 25 hydroxy Lab Routine Primary osteoarthritis of both hands Expected: 06/12/2024, Expires: 06/12/2025 [facility] Comment on above: Expected: 06/12/2024 , Expires: 06/12/2025 Start: 05-21-2024 End: 05-21-2025 Basic metabolic 1998 panel - Serum or Plasma Basic metabolic panel Lab Routine Essential hypertension, benign (CMS/HCC) Type 2 diabetes mellitus without complication, without long-term current use of insulin (CMS/HCC) Expected: 05/21/2024 (Approximate), Expires: 05/21/2025 [facility] [employer] Work Phone: Comment on above: Expected: 05/21/2024 [...] long-term current use of insulin (CMS/HCC) Start: 05-16-2024 End: 05-16-2024 Patient encounter procedure 05/16/2024 1:15 PM EDT Office Visit [facility] [address] [phone] Lula Cota MD [address] [address] [facility] Start: 05-03-2024 End: 05-03-2024 ambulatory 05/03/2024 1:00 PM EDT Evaluation [facility] [address] [facility] [address] [place] [address] Deanna Harlye, OT [address] [facility] [address] [place] [address] [facility] Start: 05-01-2024 End: 05-01-2024 Patient encounter procedure [facility] [address] [address] Comment on above: Arrived Start: 04-28-2024 COVID-19 VACCINE () COVID-19 VACCINE () [facility] Start: 04-28-2024 COVID-19 VACCINE () COVID-19 VACCINE () [facility] Start: 04-28-2024 Covid-19 Vaccine () Covid-19 Vaccine () [facility] Start: 04-28-2024 Influenza vaccination A [facility] Start: 04-24-2024 End: 04-24-2025 Cobalamin (Vitamin B12) [Mass/volume] in Serum or Plasma Vitamin B12 Lab Routine Upper extremity weakness Expected: 04/24/2024 (Approximate), Expires: 04/24/2025 [facility] Work Phone: Comment on above: Expected: 04/24/2024 (Approximate), Expires: 04/24/2025 Start: 04-17-2024 End: 04-17-2024 Patient encounter procedure 04/17/2024 2:15 PM EDT Office Visit [facility] [address] [phone] Lula Cota MD [address] [address] [facility] Start: 04-17-2024 End: 04-17-2025 XR Bones Limited Survey Views [facility] Comment on above: Expected: 04/17/2024 , Expires: 04/17/2025 Start: 04-04-2024 DTaP,Tdap and Td Vaccines (2 - Td or Tdap) DTaP,Tdap and Td Vaccines (2 - Td or Tdap) [facility] Start: 04-04-2024 Tetanus vaccination TETANUS [facility] Start: 04-04-2024 Urine microalbumin profile DTaP,Tdap,Td Vaccine (2 - Td or Tdap) [facility] Start: 03-30-2024 End: 03-30-2024 [facility] Start: 03-30-2024 Physical therapy procedure [facility] Start: 03-30-2024 Referral to neurologist [facility] Start: 03-30-2024 Referral to occupati onal therapist [facility] Start: 03-30-2024 [facility] Start: 03-30-2024 Hospital admission [facility] Start: 03-29-2024 CT of head without contrast CT head/brain wo con [facility] Start: 03-29-2024 CT Unspecified body region WO contrast [facility] Start: 03-25-2024 [facility] Start: 03-25-2024 Cerebrospinal fluid culture [facility] Start: 03-24-2024 [facility] Start: 03-23-2024 [facility] Start: 03-23-2024 Hospital admission [facility] Start: 03-23-2024 Referral to neurologist [facility] Start: 01-14-2024 Urine screening for protein Diabetes: Urine Protein Screening [facility] Start: 01-03-2024 End: 01-03-2024 Patient encounter procedure 01/03/2024 3:00 PM EDT Office Visit [facility] [address] [phone] Lula Cota MD [address] [address] [facility] Start: 12-27-2023 Screening for malign ant neoplasm of colon [facility] Start: 11-16-2023 End: 11-16-2023 Patient encounter procedure 11/16/2023 1:20 PM EDT Office Visit [facility] [address] [place] [address] Cecy Hernandez NP [address] [place] [address] [facility] Start: 11-03-2023 Hemoglobin A1c measurement Diabetes: Hemoglobin A1C [facility] Start: 04-28-2023 COVID-19 Vaccine ( season) COVID-19 Vaccine ( season) [facility] Start: 04-28-2023 Influenza vaccination Influenza Vacc ine [facility] Start: 2022 Screening for malign ant neoplasm of colon [facility] Start: 04-28-2020 Influenza vaccination INFLUENZA (#1) [facility] Start: 2017 Lipid panel LIPID SCREENING [facility] Start: 2012 Lipid panel Lipid Screening [facility] Start: 2012 LIPID SCREEN LIPID SCREEN [facility] Start: 1996 DTaP,Tdap and Td Vaccines (1 - Tdap) DTaP,Tdap and Td Vaccines (1 - Tdap) [facility] Start: 1996 Hepatitis B vaccination HEP B VACCINE (1 of 3 - 19+ 3-dose series) [facility] Start: 1996 Hepatitis B Vaccine (1 of 3 - 19+ 3-dose series) Hepatitis B Vaccine (1 of 3 - 19+ 3-dose series) [facility] Start: 1996 Urine microalbumin profile DTAP,TDAP,TD (1 - Tdap) [facility] Start: 1995 Adult BMI Follow Up Plan Adult BMI Follow Up Plan [facility] Start: 1995 Adult BMI Screening Adult BMI Screen ing [facility] Start: 1995 Anxiety Screening Anxiety Screening [facility] Start: 1995 Depression Screening Depression Scre [facility] Start: 1995 Diabetic foot examination Diabetic Foot Exam [facility] Start: 1995 HIV SCREENING HIV SCREENING [facility] Start: 1992 HIV screening HIV SCREENING DISCUSSION [facility] Start: 1989 Depression Screening Depression Scre [facility] Start: 1989 Tobacco Screening Tobacco Screening [facility] Start: 1987 Glaucoma screening Diabetes: R etinopathy Screening [facility] Start: 1977 Glaucoma screening Diabetic Op hthalmology Exam [facility] Start: 1977 Hepatitis C screening HEPATITI S C VIRUS SCREENING [facility] Start: 1977 Potassium [Moles/vol ume] in Serum or Plasma POTASSIUM [facility] Start: 1977 Screening for malign ant neoplasm of colon [facility] Start: 1977 Urine screening for protein Urine Microalbumin [facility] Albumin [Mass/volume ] in Cerebral spinal fluid [facility] Albumin [Mass/volume ] in Serum or Plasma [facility] Anion gap measurement [facility] Bacteria identified in Unspecified specimen by Aerobe culture [facility] Bacteria identified in Unspecified specimen by Anaerobe culture [facility] Basophils [#/volume] in Blood by Automated count [facility] Basophils/100 leukoc ytes in Blood by Automated count [facility] Borrelia burgdorferi IgG+IgM Ab [Presence] in Serum by Immunoassay [facility] C reactive protein [Mass/volume] in Serum or Plasma C-reactive protein Lab Routine Primary osteoarthritis of both hands 06/12/2024 2:11 PM EDT [facility] CBC W Auto Different ial panel - Blood CBC auto differential Lab Routine Primary osteoarthritis of both hands 06/12/2024 2:11 PM EDT [facility] Cerebrospinal fluid IgG ratio and IgG index [facility] Cobalamin (Vitamin B 12) [Mass/volume] in Serum or Plasma Vitamin B12 Lab Routine Primary osteoarthritis of both hands 06/12/2024 2:11 PM EDT [facility] Comprehensive metabo lic 2000 panel - Serum or Plasma Comprehensive metabolic panel Lab Routine Primary osteoarthritis of both hands 06/12/2024 2:11 PM EDT [facility] Creatine kinase [Enzymatic activity/volume] in Serum or Plasma CK Total Lab Routine Primary osteoarthritis of both hands 06/12/2024 2:11 PM EDT [facility] End: 07-10-2025 EMG(NEURO/NI) EMG(NEURO/NI) EMG Routine Brachial plexopathy 1 Occurrences starting 07/10/2024 until 07/10/2025 [facility] Work Phone: Comment on above: 1 Occurrences starti ng 07/10/2024 until 07/10/2025 End: 04-17-2025 VIJAY Panel VIJAY Panel Lab Routine RAVINDER positive 1 Occurrences starting 04/17/2024 until 04/17/2025 [employer] Work Phone: Comment on above: 1 Occurrences starti ng 04/17/2024 until 04/17/2025 Eosinophils/100 leukocytes in Blood by Automated count [facility] Erythrocyte distribu tion width [Ratio] by Automated count [facility] Erythrocyte sedimentation rate by Photometric method Erythrocyte Sedimentation Rate (ESR) Lab Routine Primary osteoarthritis of both hands 06/12/2024 2:11 PM EDT [facility] Erythrocytes [#/volu me] in Blood [facility] Hematocrit [Volume Fraction] of Blood [facility] Hemoglobin [Mass/vol ume] in Blood [facility] IgG [Mass/volume] in Cerebral spinal fluid [facility] IgG [Mass/volume] in Serum or Plasma [facility] IgG clearance/Albumi n clearance [Ratio] in Serum and CSF [facility] IgG synthesis rate [Mass/time] in Serum and CSF by calculation [facility] Lactate dehydrogenas e [Enzymatic activity/volume] in Serum or Plasma LDH Lab Routine Primary osteoarthritis of both hands 06/12/2024 2:11 PM EDT [facility] Leukocytes [#/volume ] corrected for nucleated erythrocytes in Blood by Automated coun [facility] Leukocytes [#/volume ] in Blood [facility] Lymphocytes [#/volum e] in Blood by Automated count [facility] Lymphocytes/100 leukocytes in Blood by Automated count [facility] MCH [Entitic mass] b y Automated count [facility] MCHC [Mass/volume] b y Automated count [facility] MCV [Entitic volume] by Automated count [facility] Monocytes [#/volume] in Blood by Automated count [facility] Monocytes/100 leukoc ytes in Blood by Automated count [facility] Myoglobin [Mass/volu me] in Serum or Plasma [facility] Neutrophils [#/volum e] in Blood by Automated count [facility] Neutrophils/100 leukocytes in Blood by Automated count [facility] Nucleated erythrocyt es [Presence] in Blood by Automated count [facility] Patient Education Know your Meds [facility] Work Phone: Patient referral [facility] Work Phone: Platelet mean volume [Entitic volume] in Blood by Automated count [facility] Platelets [#/volume] in Blood [facility] Protein fractions.oligoclonal bands.intrathecal [Presence] in Serum and CSF [facility] Unlisted Lab Test Anti-HMGCR Unlisted Lab Test Anti-HMGCR Lab Routine Myopathy 06/12/2024 2:11 PM EDT [facility] Vitamin D+Metabolite s [Mass/volume] in Serum or Plasma Vitamin D 25 hydroxy Lab Routine Primary osteoarthritis of both hands 06/12/2024 2:11 PM EDT [facility] Immunizations Immunization Date Immunization Notes Care Provider Fa cility 09-04-2024 unknown vaccine or immune globulin Cecy Aichholz VENDING MACHINE TECHNICIAN Work Phone: [facility] 05-09-2024 influenza, seasonal, injectable, preservative free Cecy Aichholz VENDING MACHINE TECHNICIAN Work Phone: [facility] 05-09-2024 unknown vaccine or immune globulin Cecy Aichholz VENDING MACHINE TECHNICIAN Work Phone: [facility] 05-09-2024 influenza virus vaccine, unspecified formulation Cecy Aichholz VENDING MACHINE TECHNICIAN Work Phone: [facility] 07-05-2023 influenza, injectabl e, quadrivalent, preservative free Cecy Aichholz VENDING MACHINE TECHNICIAN Work Phone: [facility] 07-05-2023 influenza virus vaccine, unspecified formulation Lula Cota MD Work Phone: [facility] 06-06-2023 influenza virus vaccine, unspecified formulation Cecy Aichholz VENDING MACHINE TECHNICIAN Work Phone: [facility] 06-08-2022 influenza, injectabl e, quadrivalent, preservative free Cecy Aichholz VENDING MACHINE TECHNICIAN Work Phone: [facility] 05-12-2021 influenza, injectabl e, quadrivalent, preservative free Cecy Aichholz VENDING MACHINE TECHNICIAN Work Phone: [facility] 12-30-2020 unknown vaccine or immune globulin Cecy Aichholz VENDING MACHINE TECHNICIAN Work Phone: [facility] 12-02-2020 unknown vaccine or immune globulin Cecy Aichholz VENDING MACHINE TECHNICIAN Work Phone: [facility] 04-04-2014 tetanus toxoid, redu [place] diphtheria toxoid, and acellular pertussis vaccine, adsorbed Yue Kasia Other [facility] 04-04-2014 unknown vaccine or immune globulin Cecy Hernandez VENDING MACHINE TECHNICIAN Work Phone: [facility] 06-12-2013 influenza virus vaccine, unspecified formulation Haylee Finnrachna [facility] Payers Date Payer Category Payer Self-pay 2022 Medicaid [id number] 2022 Medicaid [id number] 2013 Medicaid [place] [employer] [employer] MEDICAID [id number] 2013-Present Medicaid [id number] 2013 Self-pay SELF PAY HSP/MED ICAL SELF PAY [id number] 2013-2015 SELF PAY Indemnity [id number] [id number] 1977 Unknown [id number] 2.840.1.630487.3.579.2.647 1977 Unknown [id number] .16.840.1.336268.3.579.2.593 1977 Unknown [id number] 2..840.1.140372.3.579.2.593 1977 Unknown [id number] 2.16.840.1.282473.3.579.2.593 1977 Unknown [id number] 2.16.840.1.952166.3.579.2.593 1977 Unknown [id number] 2.16.840.1.669973.3.579.2.983 1977 Unknown [id number] 2.16.840.1.380324.3.579.2.983 1977 Unknown [id number] 2.16.840.1.873265.3.579.2.1285 1977 Unknown [id number] 2.16.840.1.862212.3.579.2.1285 1977 Unknown [id number] 2.16.840.1.433440.3.579.2.1285 1977 Unknown [id number] 2.16.840.1.113087.3.579.2.1285 1977 Unknown [id number] 2.16.840.1.829779.3.579.2.1285 1977 Unknown [id number] 2.16.840.1.203963.3.579.2.1285 1977 Unknown [id number] 2.16.840.1.288760.3.579.2.1285 1977 Unknown [id number] 2.16.840.1.223884.3.579.2.1285 1977 Unknown [id number] 2.16.840.1.141145.3.579.2.1285 1977 Unknown [id number] 2.16.840.1.583365.3.579.2.1285 1977 Unknown [id number] 2.16.840.1.125090.3.579.2.1285 1977 Unknown [id number] 2.16.840.1.842087.3.579.2.1285 1977 Unknown [id number] 2.16.840.1.213997.3.579.2.1285 1977 Unknown [id number] 2.16.840.1.858053.3.579.2.1285 1977 Unknown [id number] 2.16.840.1.146410.3.579.2.9 1977 Unknown [id number] 2.16.840.1.880414.3.579.2.1258 1977 Unknown [id number] 2.16.840.1.939119.3.579.2.1258 1977 Unknown [id number] 2.16.840.1.982814.3.579.2.1258 1977 Unknown [id number] 2.16.840.1.714392.3.579.2.1258 1977 Unknown [id number] 2.16.840.1.578827.3.579.2.1258 1977 Unknown [id number] 2.16.840.1.272100.3.579.2.1258 1977 Unknown [id number] 2.16.840.1.064502.3.579.2.1258 1977 Unknown [id number] 2.16.840.1.132870.3.579.2.1258 1977 Unknown [id number] 2.16.840.1.783434.3.579.2.1258 1977 Unknown [id number] 2.16.840.1.404258.3.579.2.1258 1977 Unknown [id number] 2.16.840.1.126957.3.579.2.1258 1977 Unknown [id number] 2.16.840.1.819074.3.579.2.1285 1977 Unknown [id number] 2.16.840.1.667536.3.579.2.1285 1977 Unknown [id number] 2.16.840.1.749781.3.579.2.1285 1977 Unknown [id number] 2.16.840.1.390632.3.579.2.1286 1959 Unknown [id number] 2.16.840.1.786559.19 1959 Unknown [id number] Unknown Unknown [id number] 2.16.840.1.086010.3.579.2.531 Unknown [id number] 2.16.840.1.779207.3.579.2.531 Unknown [id number] 2.16.840.1.390773.3.579.2.531 Social History Date Type Detail Facility Start: 05-20-2013 End: 08-10-2024 Tobacco smoking status AZIS Former smoker [facility] Start: 05-20-2013 End: 07-10-2024 Alcohol intake Not Asked [facility] Start: 1975 Sex Assigned At Not on file [facility] Start: 08-16-2023 End: 10-08-2024 Sex Assigned At [facility] History of tobacco use Current smoker [facility] History of tobacco use Cigarette Smoker [facility] Start: 08-16-2023 End: 10-31-2024 Alcohol intake Ex-drinker (finding) [facility] Start: 08-16-2023 End: 10-08-2024 History of Social function [facility] Start: 08-16-2023 Tobacco Comment Last smoked: 5-10 years [facility] Start: 08-16-2023 Alcohol Comment caffeine 1-2 cups per day [facility] Start: 1975 Sex Assigned At Male [facility] Start: 03-04-2024 End: 05-01-2024 Tobacco use and exposure Former smokeless tobacco user [facility] History of tobacco use Chews Tobacco [facility] Start: 05-21-2024 End: 10-28-2024 Alcoholic beverage intake Lifetime non-drinker (finding) [facility] Do you belong to any clubs or organizations such as denominational groups, unions, fraternal or athletic groups, or school groups? Yes [facility] Are you now , , , , never or living with a partner? Never [facility] How often to you hav e a drink containing alcohol? Never [facility] How many standard dr inks containing alcohol do you have on a typical day? Patient does not drink [facility] How hard is it for y ou to pay for the very basics like food, housing, medical care, and heating Somewhat hard [facility] Start: 08-10-2024 Tobacco use and exposure Smokeless tobacco non-user [facility] Has the electric, ga s, oil, or water company threatened to shut off services in your home in past 12Mo No [facility] Start: 01-06-2016 End: 10-26-2024 Sex Male (finding) [facility] How hard is it for y ou to pay for the very basics like food, housing, medical care, and heating Very hard [facility] consumption [facility] Procedure Code Equipment Code Equipment Origin al Text Equipment Identifier Dates 1 each by Other route Daily as needed [id number] Start: 10-13-2022 End: 10-07-2024 1 each by Other route if needed [id number] Start: 10-13-2022 1 each by Other route Daily [id number] Start: 04-04-2024 End: 07-13-2024 Goals Date Patient Goal Desired Activity /State Personal health goal Comment on above: Formatting of this n ote might be different from the original. Evaluation of progress towards goal: Patient is planning to transition to SNF at discharge. Functional Status Date Assessment Result Facility 03-30-2024 Functional status Patient at [facility] Work Phone: 03-25-2024 Functional status Patient at [facility] Work Phone: Mental Status Date Assessment Result Facility 03-30-2024 Cognitive function Cognitive Sta tus Patient at [facility] Work Phone: 03-25-2024 Cognitive function Cognitive Sta tus Patient at [facility] Work Phone: Clinical Notes 10-08-2021 to 10-31-2024 Austin Altman RN - 10/31/2024 8:30 AM Marty Hernandez NP - 10/28/2024 1:11 PM Marty Hernandez NP - 10/28/2024 11:28 AM ANDERSON DICKINSON - 10/28/2024 11:00 AM ESTPatient Instructions Note Date & Type Note Facility 10-31-2024 History of Present illness Narrative Pt here for IVIG as scheduled. Denies any issues/reaction to previous infusions. Tolerating well. States he feels well today. PIV initiated to right hand. Brisk blood return noted, flushes with ease. D5 started at K[facility]. Premedicated with IVP solumedol, and PO benadryl/tylenol. IVIG started and titrated per protocol without incident. Line flushed. PIV dc'd and pressure dressing applied. Dc'd in stable ambulatory condition. documented in this encounter [facility] 10-28-2024 History of Present illness Narrative Associated Problem(s): Bilateral lower extremity edema Had an ER visit for LE edema, given lasix, which did help He requested more, I did inform him at the time of his request he needs to get this from Neurology as they are prescribing steroids I further explained that the swelling may be considered a side effect from their prescription He states he will He is also asking for script for compression stockings, this is a reasonable request and he is also elevating legs at home which is helping as well Associated Problem(s): Major depressive disorder, recurrent, moderate (CMS/HCC) No current meds, did used to take citalopram in the past Does not feel like he needs it currently PHQ 9=7 10/28/24 Pt has tried to get with his neurology for getting back on the lasix, he's been swollen; he does keep his legs elevated and wear socks that go about ankle. Was asking for a prescription for compression socks. Pt would like to get on medication for bloating and gas 130s/80s as BP Was taken off the BP medication Images from the original note were not included. Bhumika Umana is a 49 y.o. male presents with chief complaint of weakness HPI: Hypertension This is a chronic problem. The current episode started more than 1 year ago. The problem is unchanged. The problem is controlled. Associated symptoms include anxiety, chest pain and peripheral edema. Pertinent negatives include no palpitations or shortness of breath. There are no associated agents to hypertension. Risk factors for coronary artery disease include diabetes mellitus, dyslipidemia, male gender and sedentary lifestyle. Past treatments include nothing. There are no compliance problems. There is no history of chronic renal disease. Anxiety Presents for follow-up visit. Symptoms include chest pain. Patient reports no decreased concentration, depressed mood, dizziness, dry mouth, excessive worry, insomnia, irritability, muscle tension, nervous/anxious behavior, palpitations, restlessness, shortness of breath or suicidal ideas. Symptoms occur occasionally. The severity of symptoms is mild. Compliance with medications: no meds. Edema Presents with new edema. The current episode started 1-4 weeks ago. The onset of the episode was sudden. These episodes happen throughout the day. The problem presents itself daily. The problem has been waxing and waning. The edema is present on the both side(s). Risk factors for edema include no known risk factors. Associated with: steroids. Associated symptoms include chest pain. Pertinent negative symptoms include no decreased urine volume, no fatigue, no hemoptysis, no nocturia, no palpitations, no presyncope, no vomiting and no weight change. Pertinent negative history includes no chronic renal disease, no cirrhosis, no hepatitis and no liver disease. Treatments tried include elevating limb(s). There has been moderate improvement on treatment(s). Depression Visit Type: follow-up Patient is not experiencing: anhedonia, decreased concentration, depressed mood, dizziness, dry mouth, excessive worry, feelings of hopelessness, feelings of worthlessness, insomnia, irritability, muscle tension, nervousness/anxiety, palpitations, restlessness, shortness of breath, suicidal ideas, suicidal planning and thoughts of . Frequency of symptoms: occasionally Severity: mild SUBJECTIVE: MEDICATIONS: Current Outpatient Medications Medication Instructions Allergy Relief 10 mg, Oral, Daily Calcium Carb-Cholecalciferol (Calcium 500+D) 500-10 MG-MCG tablet 1 tablet, 2 times daily dexAMETHasone (DECADRON) 4 mg, Daily with breakfast furosemide (LASIX) 20 mg, Daily metFORMIN (GLUCOPHAGE) 1,000 mg, Oral, 2 times daily with meals omeprazole (PRILOSEC) 20 mg, Daily predniSONE (Deltasone) 5 MG tablet TAKE 12 TABLETS BY MOUTH IN THE MORNING senna-docusate (Senna S) 8.6-50 MG tablet 2 tablets, Every 12 hours sulfamethoxazole-trimethoprim (Bactrim DS) 800-160 MG per tablet 1 tablet, Once tiZANidine (ZANAFLEX) 4 mg, Oral, Nightly PRN ALLERGIES: Allergies Allergen Reactions [place] Oil Hives Cashew Nut (Anacardium Occidentale) Skin Test Hives Cashew Nut Oil Dermatitis Other Unknown Oxytetracycline Unknown Penicillin G Unknown Penicillins Pedi-Pre Tape [place] [Wound Dressing Adhesive] Rash REVIEW OF SYMPTOMS: Review of Systems Constitutional: Negative for activity change, appetite change, fatigue, irritability and unexpected weight change. HENT: Negative for ear pain, nosebleeds, sneezing, trouble swallowing and voice change. Eyes: Negative for pain, discharge and visual disturbance. Respiratory: Negative for apnea, hemoptysis, chest tightness, shortness of breath and wheezing. Cardiovascular: Positive for chest pain. Negative for palpitations and leg swelling. Gastrointestinal: Negative for abdominal distention, blood in stool, constipation, diarrhea and vomiting. Bloating and gassy Genitourinary: Negative for decreased urine volume, difficulty urinating, dysuria, hematuria and nocturia. Musculoskeletal: Positive for arthralgias and myalgias. Skin: Negative for color change. Neurological: Negative for dizziness, tremors and seizures. Psychiatric/Behavioral: Positive for depression. Negative for agitation, decreased concentration, hallucinations, self-injury and suicidal ideas. The patient is not nervous/anxious and does not have insomnia. Hematological: Negative for adenopathy. Does not bruise/bleed easily. Endocrine: Negative for cold intolerance, heat intolerance, polydipsia and polyuria. Allergic/Immunologic: Negative for environmental allergies and food allergies. PAST MEDICAL HISTORY Past Medical History: Diagnosis Date Anxiety Cellulitis from finger splinter Chronic pain Class 3 severe obesity due to excess calories without serious comorbidity with body mass index (BMI) of 45.0 to 49.9 in adult ([facility]) 08/16/2023 Depression, controlled ([facility]) Epigastric pain Hypertension ([facility]) immunosupression Non compliance w medication regimen Non-compliant patient EDDI (obstructive sleep apnea) 11/16/2023 RA (rheumatoid arthritis) ([facility]) Seasonal allergies Tonsillitis as child Type 2 diabetes mellitus without complication, without long-term current use of insulin ([facility]) 08/16/2023 Past Surgical History: Procedure Laterality Date ADENOIDECTOMY T&A TONSILLECTOMY T&A family history includes Cancer in his mother; Diabetes in his mother; Heart disease in his father and maternal grandfather; Hypertension in his maternal grandmother and mother; Stroke in his paternal grandmother; colon in his mother. OBJECTIVE: Visit Vitals BP 138/88 (BP Location: Left arm, Patient Position: Sitting, BP Cuff Size: Adult long) Pulse 63 Temp 98.1 F (Temporal) Resp 19 Wt 305 lb SpO2 98% BMI 38.12 kg/m Smoking Status Former BSA 2.7 m Physical Exam Vitals and nursing note reviewed. Constitutional: Appearance: Normal appearance. He is not ill-appearing or toxic-appearing. HENT: Head: Normocephalic. Right Ear: External ear [...] sounds: Normal breath sounds. No wheezing or rhonchi. Abdominal: General: Bowel sounds are normal. There is no distension. Palpations: Abdomen is soft. Tenderness: There is no abdominal tenderness. There is no guarding. Musculoskeletal: Cervical back: Neck supple. Right lower leg: Edema present. Left lower leg: Edema present. Comments: Trace-1+ bilat pre tibial edema noted Lymphadenopathy: Cervical: No cervical adenopathy. Skin: General: Skin is warm and dry. Capillary Refill: Capillary refill takes 2 to 3 seconds. Neurological: General: No focal deficit present. Mental Status: He is alert. Psychiatric: Mood and Affect: Mood normal. Behavior: Behavior normal. Thought Content: Thought content normal. Judgment: Judgment normal. ASSESSMENT AND PLAN: Follow up in about 8 weeks (around 12/23/2024) for Recheck. Problem List Items Addressed This Visit RESOLVED: Depression (CMS/HCC) Not currently taking any medications PHQ 9= Essential hypertension, benign (CMS/HCC) - Primary Please check blood pressure daily and record DASH diet Limit caffeine Take medication as directed Contact office if chest pain, pressure, dizziness, shortness of breath, swelling legs Recommend slow position changes Current meds: no current meds at this time Relevant Orders Comprehensive metabolic panel Urinalysis with reflex microscopic (clean catch) Microalbumin / creatinine, urine ratio Type 2 diabetes mellitus without complication, without [...] simple sugars. Current meds: metformin A1c: 6.6% on 10/07/24 Relevant Orders Comprehensive metabolic panel Urinalysis with reflex microscopic (clean catch) Microalbumin / creatinine, urine ratio Lipid panel Morbid (severe) obesity due to excess calories (CMS/HCC) Discussed with patient their BMI (actual, verses recommended). We have also discussed lifestyle modifications: attempts to perform physical activity as chronic conditions allow, also to monitor dietary intake: increasing protein/fruits/veggies and lowering carb intake (unless contraindicated). Limit sodas, juices, and sugary drinks. Relevant Orders Comprehensive metabolic panel Obesity, Class II, BMI 35-39.9 Major depressive disorder, recurrent, moderate (CMS/HCC) No current meds, did used to take citalopram in the past Does not feel like he needs it currently PHQ 9=7 10/28/24 CIDP (chronic inflammatory demyelinating polyneuropathy) (CMS/HCC) See chart for HX of hospitalization and course Cont with Rheumatology is getting a new Rheumatology in [place] through [facility] Is getting IgG therapy, is going to [facility] every 3 weeks Was also given script for cane Recent change the dexamethasone has been stopped and pt placed on prednisone Reviewed Neurology notes from 10/07/24 Relevant Orders CBC and differential Anxiety disorder, unspecified Hx of this, no current meds Does not feel needs meds at this time ERASTO 7=6 (10/28/24) Bilateral lower extremity edema Had an ER visit for LE edema, given lasix, which did help He requested more, I did inform him at the time of his request he needs to get this from Neurology as they are prescribing steroids I further explained that the swelling may be considered a side effect from their prescription He states he will He is also asking for script for compression stockings, this is a reasonable request and he is also elevating legs at home which is helping as well Associated Problem(s): Depression (CMS/HCC) (Resolved 10/28/2024) Not currently taking any medications PHQ 9= Associated Problem(s): Anxiety disorder, unspecified Hx of this, no current meds Does not feel needs meds at this time ERASTO 7=6 (10/28/24) Associated Problem(s): Type 2 diabetes mellitus without [...] simple sugars. Current meds: metformin A1c: 6.6% on 10/07/24 Associated Problem(s): Morbid (severe) obesity due to [...] Rheumatology is getting a new Rheumatology in [place] through [facility] Is getting IgG therapy, is going to [facility] every 3 weeks Was also given script for cane Recent change the dexamethasone has been stopped and pt placed on prednisone Reviewed Neurology notes from 10/07/24 documented in this encounter [facility] 10-28-2024 Instructions Cecy Hernandez NP - 10/28/2024 11:00 AM EST Get labs completed Continue with neurology and infusions Try to eliminate gas forming foods: gaudencio carbone Try to move as much as possible as well as drink amount of fluids: at least 64 oz of water unless a doctor has told you to limit your fluid intake Try to do more walking , freq sitting may be making gas worse documented in this encounter [facility] 10-11-2024 Telephone encounter Note Lauren, I would appreciate any help that you could give my pt. He has : chronic inflammatory demyelinating polyneuropathy. [facility], sent [...] you could provide would be great. Cecy [facility] 10-11-2024 Miscellaneous Notes Lauren, I would appreciate any help that you could give my pt. He has : chronic inflammatory demyelinating polyneuropathy. He [facility] for [facility]hab, sent [...] be great. Cecy documented in this encounter [facility] 10-10-2024 History of Present illness Narrative IVIG with premeds, titrated per protocol, pt tolerated well. documented in this encounter [facility] 10-07-2024 History of Present illness Narrative Images from the original note were not included. [address] [facility] [id number] Bhumika Umana Jr. is a 49 y.o. right-handed male with a relevant PMH of RA and DM2 presenting with CIDP. 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 His last [...] of this study will be uploaded to [facility]. My exam on that day (which occurred about shelter through his IVIG treatment) was as follows: [...] stand and feed himself. He is at [facility]. He currently needs help bathing, toileting, feeding himself, dressing, etc. No falls. At [facility], he had significant BUE>>BLE weakness. I continued IVIG. I also started pulse dosed Dex 40 mg/day for four consecutive days, dosed with 28 days. He took the 4d course of Dex around new years, and then again in late August--however, he [...] Reactions Penicillins Other reaction(s): Unknown Adhesive Rash [place] Rash Cashew Nut Rash Social History Socioeconomic [...] Physical Activity: Patient Declined (11/15/2023) Received from [facility] Exercise Vital Sign Days of Exercise per Week: Patient declined Minutes of Exercise per Session: Patient declined Stress: Patient Declined (11/15/2023) Received from [facility] [place] [facility] Occupational Health - Occupational Stress Questionnaire Feeling of Stress : Patient declined Social Connections: Moderately Integrated (11/15/2023) Received from [facility] Social Connection and Isolation Panel [NHANES] Frequency of Communication with Friends and Family: Three times a week Frequency of Social Gatherings with Friends and Family: Twice a week Attends Church Services: More than 4 times per year [...] diagnoses linked to this encounter. Bhumika Umana Jr. is a 49 y.o. right-handed male with a relevant PMH of RA and DM2 presenting to [facility] care for CIDP. Symptom onset over the [...] mg daily. -Continue Bactrim 1 DS tab qMonday/Monday/Monday as well as vitamin D (at least 200 IU) and calcium (at least 500 mg) daily. -If stomach upset occurs, or if NSAID use is needed, would add omeprazole 40 mg daily. -Continue IVIG q3w at 1g/kg (outside prescriber) Cisco Juan MD Life Trainer of Neurology [facility] 10/02/24 I spent 45 minutes of [...] for specific details. documented in this encounter [facility] 10-07-2024 Instructions Cisco Juan MD - 10/07/2024 1:00 PM EST It was a pleasure seeing you in clinic today. Your neurologist: Dr. Cisco Juan Your diagnosis: CIDP Plan: -Stop Dexamethasone -Start prednisone 60 mg daily. -Continue Bactrim 1 tab qM/Monday/Monday as well as vitamin D (at least [...] me with your care. Cisco Juan MD Life Trainer of Neurology [facility] 10/07/24 documented in this encounter [facility] 10-07-2024 History of Present illness Narrative [...] Problem(s): Rheumatoid arthritis with rheumatoid factor, unspecified ([facility]) Continue with rheumatology Associated Problem(s): Type 2 diabetes mellitus without complication, without long-term current use of insulin ([facility]) Check blood sugars daily, notify if <70 [...] Morbid (severe) obesity due to excess calories ([facility]) Discussed with patient their BMI (actual, verses recommended). We have also discussed lifestyle modifications: attempts to perform physical activity as chronic conditions allow, also to monitor dietary intake: increasing protein/fruits/veggies and lowering carb intake (unless contraindicated). Limit sodas, juices, and sugary drinks. Associated Problem(s): Essential hypertension, benign ([facility]) Please check blood pressure daily and record DASH diet Limit caffeine Take medication as directed Contact office if chest pain, pressure, dizziness, shortness of breath, swelling legs Recommend slow position changes Current meds: no current meds at this time Associated Problem(s): CIDP (chronic inflammatory demyelinating polyneuropathy) ([facility]) See chart for HX of hospitalization and course Cont with Rheumatology is getting a new Rheumatology in [place] through [facility] Is getting IgG therapy, is going to [facility] every 3 weeks Not certain how long he will be on therapy Images from the original note were not included. Bhumika Umana is a 49 y.o. male presents with chief complaint of No chief complaint on file. HPI: snf FU: for Hypertension Pertinent negatives include no [...] the time. An AMITA inhibitor/angiotensin II receptor darshana is not being taken. He does not see a speech pathology supervisor.Eye exam is not current. SUBJECTIVE: MEDICATIONS: Current [...] Oral, Nightly PRN ALLERGIES: Allergies Allergen Reactions [place] Oil Hives Cashew Nut (Anacardium Occidentale) Skin Test Hives Cashew Nut Oil Dermatitis Other Unknown Oxytetracycline Unknown Penicillin G Unknown Penicillins Pedi-Pre Tape [place] [Wound Dressing Adhesive] Rash REVIEW OF SYMPTOMS: [...] (BMI) of 45.0 to 49.9 in adult ([facility]) 08/16/2023 Depression, controlled ([facility]) Epigastric pain Hypertension ([facility]) immunosupression Non compliance w medication regimen Non-compliant patient EDDI (obstructive sleep apnea) 11/16/2023 RA (rheumatoid arthritis) ([facility]) Seasonal allergies Tonsillitis as child Type 2 diabetes mellitus without complication, without long-term current use of insulin ([facility]) 08/16/2023 Past Surgical [...] use of insulin ([facility]) Check blood sugars daily, notify if <70 [...] to excess calories ([facility]) Discussed with patient their BMI (actual, verses [...] RESOLVED: Type 2 diabetes mellitus without complications ([facility]) Relevant Orders POCT glycosylated hemoglobin (Hb A1C) docked device (Completed) CIDP (chronic inflammatory demyelinating polyneuropathy) (CMS/HCC) - Primary See chart for HX of hospitalization and course Cont with Rheumatology is getting a new Rheumatology in [place] through [facility] Is getting IgG therapy, is going to [facility] every 3 weeks Not certain how long he will be on therapy documented in this encounter [facility] 10-07-2024 Instructions Cecy Hernandez NP - 10/07/2024 10:30 AM EST Inventory Worker: to help with finding stable housing, possible PT/OT Depression/anxiety: referral to counseling Continue with Neurology and Rheumatology documented in this encounter [facility] 09-19-2024 History of Present illness Narrative [...] to facility's transportation documented in this encounter [facility] 09-11-2024 History of Present illness Narrative Images from the original note were not included. [address] [id number] Date of Service: 09/11/2024 Subjective: Bhumika Barnardall Partida. is a 49 y.o. male who presents [...] Tender (LANG-28): -- Swollen (LANG-28): -- BP 128/74 Resp [...] and Plan: Bhumika Umana Jr. is a 49 y.o. male patient with: 1. Primary osteoarthritis of both hands - Erythrocyte Sedimentation Rate (ESR); Future - C-reactive protein; Future 2. CIDP (chronic inflammatory demyelinating polyneuropathy) ([facility]) 3. Diabetic cheirarthropathy ([facility]) At this point patient patient has been [...] or corrected. Thank you for your understanding. [facility] Rheumatology Dr. Lula Cota MD [address] [place] [address], [address] [place] [address] Office: [phone] [facility] Miscellaneous Notes Chelly the security system engineer from [facility] called and asked to speak the Infusion Nurse regarding the patient IVIG Treatment. She would like to discuss possible location for the patient to have this done. Chelly can be reached back at [phone] Called Chelly back and let her know Dr. Juan had sent a request to [facility] ([phone]) to request an appointment for this. She voiced understanding. documented in this encounter [facility] 08-23-2024 Telephone encounter Note Chelly the security system engineer from [facility] called and asked to speak the Infusion Nurse regarding the patient IVIG Treatment. She would like to discuss possible location for the patient to have this done. Chelly can be reached back at [phone] [facility] 08-23-2024 Telephone encounter Note Called Chelly back and let her know Dr. Juan had sent a request to [facility] ([phone]) to request an appointment for this. She voiced understanding. [facility] 08-22-2024 History of Present illness Narrative Images from the original note were not included. [address] [facility] [id number] Bhumika Umana Jr. is a 49 y.o. right-handed male with a relevant PMH of RA and DM2 presenting to establish care for CIDP. History of Present Illness: Patient states that the symptoms started in December of 2023 where he initially woke up and had numbness in his fingertips and then throughout the day noticed that he had progressive weakness and was unable to audio visual specialist a drill in both hands during that [...] found as a photo in the 07/10/2024 [facility] neuro note), the left median CMAP [...] then tried to go to a different administrative dietitian recently however that administrative dietitian told him he did not have rheumatoid [...] extremity strength, however sensation disturbances did not construction equipment overhauler the course of his admission. His last [...] of this study will be uploaded to [facility]. My exam on that day (which occurred about shelter through his IVIG treatment) was as follows: On examination, his cranial nerve exam is normal including full tongue strength. Strength (R/L) is Delts 4/4, Bi 4-/4-, Tri 4+/4+, WE 2/2, FE 1/, IO 08/28; he is 5/5 in the [...] stand and feed himself. He is at [facility]. He currently needs help bathing, toileting, [...] Reactions Penicillins Other reaction(s): Unknown Adhesive Rash [place] Rash Cashew Nut Rash Social History Socioeconomic [...] Resource Strain: Medium Risk (11/15/2023) Received from [facility] Overall Financial Resource Strain (CARDIA) Difficulty of Paying Living Expenses: Somewhat hard Food Insecurity: Food Insecurity Present (08/10/2024) Hunger Screening Food Insecurity - Worry: Often True Food Insecurity - Inability: Often True Transportation Needs: Unmet Transportation Needs (08/10/2024) PRAPARE - Transportation Lack of Transportation (Medical): Yes Lack of Transportation (Non-Medical): Yes Physical Activity: Patient Declined (11/15/2023) Received from [facility] Exercise Vital Sign Days of Exercise per Week: Patient declined Minutes of Exercise per Session: Patient declined Stress: Patient Declined (11/15/2023) Received from [facility] [place] [facility] Occupational Health - Occupational Stress Questionnaire Feeling of Stress : Patient declined Social Connections: Moderately Integrated (11/15/2023) Received from [facility] Social Connection and Isolation Panel [NHANES] Frequency of Communication with Friends and Family: Three times a week Frequency of Social Gatherings with Friends and Family: Twice a week Attends Church Services: More than 4 times per year [...] IMPRESSION/PLAN: 1. CIDP (chronic inflammatory demyelinating polyneuropathy) ([facility]) - [facility] [place] [place] 2. Primary osteoarthritis of both hands - [facility] [place] [place] Bhumika Umana Jr. is a 49 y.o. [...] on steroids. -Start Bactrim 1 DS tab qMond/Monday/Monday. -Start vitamin D (at least 200 IU) and calcium (at least 500 mg) daily. -If stomach upset occurs, or if NSAID use is needed, add omeprazole 40 mg daily. -Ensure IVIG q3w at 1g/kg; We can consider increase to 1.5 g/kg in the future pending clinical response. -Recommend stopping ASA 81 mg daily. Cisco Juan MD Life Trainer of Neurology [facility] 08/22/24 I spent 65 minutes of [...] for specific details. documented in this encounter [facility] 08-22-2024 Instructions Cisco Juan MD - 08/22/2024 11:00 AM EST It was a pleasure seeing you in clinic today. Your neurologist: Dr. Cisco Juan Your diagnosis: CIDP Plan: I am asking the MD/VENDING MACHINE TECHNICIAN at your facility to help with prescribing [...] me with your care. Cisco Juan MD Life Trainer of Neurology [facility] 08/22/24 documented in this encounter [facility] 08-06-2024 Telephone encounter Note [facility] called and stated that they are not covered by his insurance and that they can not take him as a patient. [facility] 08-06-2024 Miscellaneous Notes [facility] called and stated that they are not covered by his insurance and that they can not take him as a patient. documented in this encounter [facility] 07-22-2024 History of Present illness Narrative [...] Upper extremity weakness Reviewed neurology notes from [facility] Associated Problem(s): Essential hypertension, benign (CMS/HCC) Not currently taking meds States was having hypotension when given meds in hospital Pt has moved to [place] with his brother he has fallen there [...] functioning. He has recently relocated back to [facility] living with his sister, after a brief period of time living with his brother in [place]. He is unable to use his Upper [...] hydroCHLOROthiazide (HYDRODIURIL) 25 mg, Daily RT Lancets (My Computer WorksTouch Delica Plus [id number]) misc 1 each, Daily PRN lisinopril-hydroCHLOROthiazide 20-25 [...] Oral, Nightly PRN ALLERGIES: Allergies Allergen Reactions [place] Oil Hives Cashew Nut (Anacardium Occidentale) Skin Test Hives Cashew Nut Oil Dermatitis Other Unknown Oxytetracycline Unknown Penicillin G Unknown Penicillins Pedi-Pre Tape [place] [Wound Dressing Adhesive] Rash REVIEW OF SYMPTOMS: [...] (BMI) of 45.0 to 49.9 in adult ([facility]) 08/16/2023 Depression, controlled ([facility]) Epigastric pain Hypertension ([facility]) immunosupression Non compliance w medication regimen Non-compliant patient EDDI (obstructive sleep apnea) 11/16/2023 RA (rheumatoid arthritis) ([facility]) Seasonal allergies Tonsillitis as child Type 2 diabetes mellitus without complication, without long-term current use of insulin ([facility]) 08/16/2023 Past Surgical History: Procedure Laterality Date [...] Orders Ambulatory referral to Home Health Depression ([facility]) Not currently taking any medications Essential hypertension, benign ([facility]) Not currently taking meds States was having hypotension when given meds in hospital Type 2 diabetes mellitus without complication, without long-term current use of insulin ([facility]) Not currently checking sugar, taking meds either Rheumatoid arthritis with rheumatoid factor, unspecified ([facility]) Differing reports as to if does have RA or not Upper extremity weakness - Primary Reviewed neurology notes from [facility] Relevant Orders Ambulatory referral to Home Health Weakness Read neurology notes Needs home health Relevant Orders Ambulatory referral to Home Health Obesity, Class II, BMI 35-39.9 Other Visit Diagnoses Depression, unspecified (CMS/HCC) Essential (primary) hypertension ([facility]) Type 2 diabetes mellitus without complications ([facility]) documented in this encounter [facility] 07-22-2024 Instructions Cecy Hernandez NP - 07/22/2024 6:30 PM EST Cont with neurology Order home health documented in this encounter [facility] 07-11-2024 Note HNO ID: [id number] Author: MARVIN MALDONADO LSW Service: ? Author Type: Pig Machine Crane Operator Type: Progress Notes Filed: 07/11/2024 12:56 Note [...] provided information on housing assistance programs in [facility]. Provided pt with information on how [...] Interventions: Advocacy Assessment Care transition Discharge from [facility] panel Education Empowering/Coaching Goal Setting SABINE Duran July 11, 2024 12:47 PM [facility] 07-11-2024 History of Present illness Narrative [...] provided information on housing assistance programs in [facility]. Provided pt with information on how [...] Interventions: Advocacy Assessment Care transition Discharge from [facility] panel Education Empowering/Coaching Goal Setting SABINE Duran July 11, 2024 12:47 PM documented in this encounter [facility] 07-10-2024 Instructions Darek Valdovinos MD - 07/10/2024 10:54 AM EST We would like to repeat an EMG of your arms. This can be scheduled at any [facility] EMG lab. Please schedule follow-up in person with Dr. Valdovinos on August 14 To schedule Occupational Therapy: [facility]: [phone]. [facility]: [phone], Option 1 documented in this encounter [facility] 07-10-2024 Note HNO ID: [id number] Author: KEITH LEONE MD Service: ? Author Type: Physician Type: Progress Notes Filed: 07/10/2024 13:12 Note Text: [facility] New Patient Evaluation Consulting Provider: Errol Sanford [address] [facility] [address] Chief Complaint/Issues: Bhumika Umana is a 48 year old male with hx of ?RA, T2DM, past tobacco use, obesity, seen in the [facility] for: Progressive BL UE weakness and numbness Intermittent LE weakness HPI: Patient states symptoms started in December 2023 with numbness in his fingertips BL. Later than morning, he noticed he did not have any audio visual specialist strength in his left hand. His right [...] he had celluliutis. He re-established with a administrative dietitian locally who felt he did not have [...] 5/5 Knee Extension 5/5 5/5 Foot Dorsiflexion 5/ 5/5 Foot Plantarflexion 5/5 5/5 Ankle Eversion [...] 0 Pectoral A (more content not included)... [facility] 07-10-2024 History of Present illness Narrative Images from the original note were not included. [facility] [place] Patient Evaluation Consulting Provider: Errol Sanford [address] [facility] [address] Chief Complaint/Issues: Bhumika Umana is a 48 year old male with hx of ?RA, T2DM, past tobacco use, obesity, seen in the [facility] for General Neurology for: Progressive BL UE weakness and numbness Intermittent LE weakness HPI: Patient states symptoms started in December 2023 with numbness in his fingertips BL. Later than morning, he noticed he did not have any audio visual specialist strength in his left hand. His right [...] he had celluliutis. He re-established with a administrative dietitian locally who felt he did not have [...] 1. Brachial plexopathy G54.0 EMG(NEURO/NI) CONSULT TO ENVIRONMENTAL HEALTH TECHNICIAN DIRECTOR HOSPICE OPERATIONS [CONSULT TO SOCIAL WORK] CONSULT TO NEUROMUSCULAR [...] vertebrae with counting from the craniocervical junction. County Adviser: PSCB Transcribe Date/Time: Jun 26 2024 7:33A [...] of Dr. Leone documented in this encounter [facility] 06-26-2024 Note HNO ID: [id number] Author: HONG CRUZ LSW Service: Care Management Author Type: Pig Machine Crane Operator Type: Care Mgt Progress Note Filed: 06/26/2024 [...] Physician Primary Care Physician Name/Phone: Cecy Hernandez, BRAZER INDUCTION [phone] Patient d/c ready to home with no skilled needs identified. Patient and bedside RN aware of plan. Brother to transport patient home via private auto this evening when he gets off of work. SIGNATURE: SABINE Weiss PATIENT NAME: Bhumika Umana DATE: June 26, 2024 TIME: 3:42 PM CONTACT #: [phone] [facility] 06-26-2024 Note HNO ID: [id number] Author: MADIHA HARDING RPh Service: Pharmacy Author [...] discharge medication list. Madiha Harding RPh Pager: [phone] 06/26/2024 3:40 PM Medication List CHANGE how [...] 50 mg tablet Commonly known as: ULTRAM [facility] 06-26-2024 Note HNO ID: [id number] Author: MADIHA HARDING RPh Service: Pharmacy Author Type: Pharmacist Type: Plan of Care Filed: 06/26/2024 15:40 Note Text: PHARMACY MEDICATION REVIEW Patient Name: Bhumika Umana : 1975 The following medications were updated within the BUTTON FACING MACHINE OPERATOR medication list: Medications ADDED to BUTTON FACING MACHINE OPERATOR medication list Aspirin 81 mg chewable tablet: [...] at bedtime as needed. Medications CHANGED on BUTTON FACING MACHINE OPERATOR medication list None Medications REMOVED from BUTTON FACING MACHINE OPERATOR medication list None Additional comments: Discharge med rec started prior to completion of admission med rec. Because of this, some medications in the below list, will be removed at discharge as they have already be discontinued: etanercept, chlorthalidone, citalopram, fluticasone nasal, folic acid, hydroxychloroquine, metformin ER, methotrexate, tramadol. The below information represents the best possible medication history: Yes Medication history completed by: associate dean of students: Lenin Odom Source of history: Patient: Reliability of source: Appears reliable, clearly identified: Medication name, Medication dose, Medication route, and Medication frequency Medication nonadherence identified: No barriers noted Reconciliation completed: Yes Completed by: Madiha Harding RPh All BUTTON FACING MACHINE OPERATOR medications addressed by LIP- some home medications were not ordered this admission but will be continued at discharge. Since discharge summary has already been placed, will not reach out to the team to add missing medications. Patient interested in Bedside Delivery Services or using [facility] at discharge? Yes. Discharge Pharmacy Updated Preferred outpatient pharmacy: [id number] [place] [address] - [address] - [phone] [facility] [place] [address] [phone] [facility] [phone] Allergies: Adhesive Tape (Aidee* Rash Penicillins Unknown [...] Unknown Patient Yes No Sig: Use 1 [place] in each nostril daily at bedtime. folic [...] Medications: None Lenin Odom 06/26/2024 Madiha Harding, RadhaD, [facility] Changes and additions to the details in the note are indicated by italics and strikeouts. [facility] 06-26-2024 Note HNO ID: [id number] Author: HEMANTH HOPKINS MD Service: Neurology General [...] evaluation - Remainder as per prior note eHmanth Hopkins MD Neurology, PGY-4 06/26/2024 [facility] 06-25-2024 Note HNO ID: [id number] Author: HONG CRUZ LSW Service: Care Management Author Type: Pig Machine Crane Operator Type: Care Mgt Initial Assessment Filed: 06/25/2024 15:42 Note Text: CARE MANAGEMENT: ASSESSMENT AND DISCHARGE PLAN SERVICE DATE: June 25, 2024 SERVICE TIME: 3:30 PM PCP: Cecy Hernandez CNP, BRAZER INDUCTION Primary Contact: Extended Emergency Contact Information Primary Emergency Contact: Justine Umana Address: [address] [place] [address] Mobile Relation: Mother Admission Status: Observation Insurance Provider: [employer] [place] OF [place] Discharge Planning requested by: Per Department Practice Potential Transition Plans Advance Directives Current Advance Directive: None Hand Rug Cleaner Attempted to Assist with AD Completion: Yes Current Living Arrangements and Support Lives with: Other person(s), Family members (temporarily living with brother) Type of Residence: Private Residence (House) Discharge Planning Patient Goal(s): General wellness [place] of Choice Explained: [place] of Choice Given: No Reason Not Given: [...] recently being kicked out of home (see consult note for details). Patient presents with 5 months of gradually progressive numbness and weakness in his hands. 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 process control supervisor pt for Outpatient PT with a 6 Clicks score of 24. At this time, no skilled identified. If family is unavailable to transport, T2R will be provided at discharge. SW/CM will continue to follow for transitional care needs. SIGNATURE: SABINE Weiss PATIENT NAME: Bhumika Umana DATE: June 25, 2024 TIME: 3:30 PM CONTACT #: [phone] [facility] 06-25-2024 Note HNO ID: [id number] Author: [place] ? Service: Pharmacy Author Type: Patrol Community Service Officer Type: Plan of Care Filed: 06/25/2024 14:20 Note Text: Insurance investigation completed Patient has active prescription insurance: Yes - Patient's insurance is in-network with [facility] Insurance loaded into [place]: Yes Test claim was completed to verify insurance is active: Successful Any questions, please reach out to your medication magnetic resonance imaging coordinator. [facility] 06-25-2024 Note HNO ID: [id number] Author: HEMANTH HOPKINS MD Service: Neurology General [...] low-normal 228. Pt being seen by PT/OT, process control supervisor for outpt PT. EMG/NCS 02/13/2024 (symptom onset [...] standpoint Hemanth Hopkins MD Neurology, PGY-4 06/25/2024 [facility] 06-22-2024 Physician Emergency department Note Emergency Department Report [facility] EMERGENCY DEPARTMENT Service Date:.06/22/24 PCP: [...] Resource Strain: Medium Risk (11/15/2023) Received from [facility] Overall Financial Resource Strain (CARDIA) Difficulty of Paying Living Expenses: Somewhat hard Food Insecurity: Patient Declined (11/15/2023) Received from [facility] Hunger Vital Sign Worried About Running Out of Food in the Last Year: Patient declined Ran Out of Food in the Last Year: Patient declined Transportation Needs: No Transportation Needs (11/15/2023) Received from [facility] PRAPARE - Transportation Lack of Transportation (Medical): No Lack of Transportation (Non-Medical): No Physical Activity: Patient Declined (11/15/2023) Received from [facility] Exercise Vital Sign Days of Exercise per Week: Patient declined Minutes of Exercise per Session: Patient declined Stress: Patient Declined (11/15/2023) Received from [facility] [place] of Occupational Health - Occupational Stress Questionnaire Feeling of Stress : Patient declined Social Connections: Moderately Integrated (11/15/2023) Received from [facility] Social Connection and Isolation Panel [NHANES] Frequency of Communication with Friends and Family: Three times a week Frequency of Social Gatherings with Friends and Family: Twice a week Attends Church Services: More than 4 times per year [...] information. . . Hector Napoles MD 06/22/242006 [facility] 06-22-2024 Emergency department Note Emergency Department Report [facility] EMERGENCY DEPARTMENT Service Date:.06/22/24 PCP: [...] Resource Strain: Medium Risk (11/15/2023) Received from [facility] Overall Financial Resource Strain (CARDIA) Difficulty of Paying Living Expenses: Somewhat hard Food Insecurity: Patient Declined (11/15/2023) Received from [facility] Hunger Vital Sign Worried About Running Out of Food in the Last Year: Patient declined Ran Out of Food in the Last Year: Patient declined Transportation Needs: No Transportation Needs (11/15/2023) Received from [facility] PRAPARE - Transportation Lack of Transportation (Medical): No Lack of Transportation (Non-Medical): No Physical Activity: Patient Declined (11/15/2023) Received from [facility] Exercise Vital Sign Days of Exercise per Week: Patient declined Minutes of Exercise per Session: Patient declined Stress: Patient Declined (11/15/2023) Received from [facility] [place] of Occupational Health - Occupational Stress Questionnaire Feeling of Stress : Patient declined Social Connections: Moderately Integrated (11/15/2023) Received from [facility] Social Connection and Isolation Panel [NHANES] Frequency of Communication with Friends and Family: Three times a week Frequency of Social Gatherings with Friends and Family: Twice a week Attends Church Services: More than 4 times per year [...] Napoles MD 06/22/242006 documented in this encounter [facility] 06-18-2024 Emergency department Note All discharge instructions and medications reviewed, all questions answered. Pt verbalized understanding. [facility] 06-18-2024 Emergency department Note All discharge instructions and medications reviewed, all questions answered. Pt verbalized understanding. A Sudol BRAZER INDUCTION bedside documented in this encounter [facility] 06-18-2024 Emergency department Note A Abeilno BRAZER INDUCTION bedside [facility] 06-12-2024 History of Present illness Narrative Images from the original note were not included. [address] [id number] Date of Service: 06/12/2024 Subjective: Bhumika Umana [...] degenerative change Assessment and Plan: Bhumika Barnardall Yoo is a 48 y.o. male patient with: [...] Myopathy - Unlisted Lab Test; Future - [facility] Physicians Neurology - [facility] - [place], [place]; Future 3. Diabetic cheirarthropathy (CMS-HCC) At [...] or corrected. Thank you for your understanding. [facility] [address] [place] [address], [address] [place] [address] Office: [phone] documented in this encounter [facility] 05-21-2024 History of Present illness Narrative Associated Problem(s): Type 2 diabetes mellitus without complication, without long-term current use of insulin (CMS/HCC) Continue current meds Check labs Associated Problem(s): [...] (dual therapy). An AMITA inhibitor/angiotensin II receptor darshana is being taken. Hypertension This is a [...] 2 sprays, Each Nostril, Daily glucose blood (Zuznowuch Ultra) test strip 1 each, Other, Daily Lancets (My Computer WorksTouch Delica Plus [id number]) misc 1 each, Other, Daily PRN lisinopril-hydroCHLOROthiazide [...] Oral, Nightly PRN ALLERGIES: Allergies Allergen Reactions [place] Oil Hives Cashew Nut (Anacardium Occidentale) Skin Test Hives Cashew Nut Oil Dermatitis Other Unknown Oxytetracycline Unknown Penicillin G Unknown Penicillins Pedi-Pre Tape [place] [Wound Dressing Adhesive] Rash REVIEW OF SYMPTOMS: [...] (BMI) of 45.0 to 49.9 in adult ([facility]) 08/16/2023 Depression, controlled ([facility]) Epigastric pain Hypertension ([facility]) immunosupression Non compliance w medication regimen Non-compliant patient EDDI (obstructive sleep apnea) 11/16/2023 RA (rheumatoid arthritis) (CMS/HCC) Seasonal allergies Tonsillitis as child Type 2 diabetes mellitus without complication, without long-term current use of insulin (CMS/HCC) 08/16/2023 Past Surgical History: Procedure Laterality Date [...] Addressed This Visit Essential hypertension, benign (CMS/HCC) - Primary Stable no dose changes Relevant Orders Basic metabolic panel Type 2 diabetes mellitus without complication, without long-term current use of insulin (CMS/HCC) Continue current meds Check labs Relevant Orders Basic metabolic panel Hemoglobin A1c Morbid (severe) obesity due to excess calories (CMS/HCC) Body mass index (BMI) 40.0-44.9, adult ([facility]) documented in this encounter [facility] 05-01-2024 History of Present illness Narrative Subjective Bhumika Umana is a 48 y.o. year old male Chief Complaint Patient presents with Sensory disturbance Past Medical History: Diagnosis Date Anxiety Cellulitis from finger splinter Chronic pain Class 3 severe obesity due to excess calories without serious comorbidity with body mass index (BMI) of 45.0 to 49.9 in adult ([facility]) 08/16/2023 Depression, controlled ([facility]) Epigastric pain Hypertension ([facility]) immunosupression Non compliance w medication regimen Non-compliant patient EDDI (obstructive sleep apnea) 11/16/2023 RA (rheumatoid arthritis) ([facility]) Seasonal allergies Tonsillitis as child Type 2 diabetes mellitus without complication, without long-term current use of insulin ([facility]) 08/16/2023 Past Surgical History: Procedure Laterality Date ADENOIDECTOMY T&A TONSILLECTOMY T&A Family History Problem Relation Name Age of Onset Other (colon) Mother Justine Diabetes Mother Justine Hypertension Mother Justine Cancer Mother Justine Heart disease Father Barney Hypertension Maternal Grandmother Rowan Heart disease Maternal Grandfather Malden Stroke Paternal Grandmother Margaret Social History Tobacco Use Smoking status: Former Types: Cigarettes Smokeless tobacco: Former Types: Chew Tobacco comments: Last smoked: 5-10 years Substance Use Topics Alcohol use: Never Comment: caffeine 1-2 cups per day Medication Documentation Review Audit Reviewed by Alma Mata MA (Custom Garment Designer) on 05/01/24 at 1539 Medication Order Taking? Sig Documenting Provider Last Dose Status amitriptyline (Elavil) 10 MG tablet [id number] No Take 10 mg by mouth as needed at bedtime for sleep Cecy Hernandez NP Taking Active Discontinued 04/30/24 0840 aspirin (Aspirin Low Dose) 81 MG chewable tablet [id number] Chew 1 tablet (81 mg) Daily Cecy Hernandez NP Active citalopram (CeleXA) 40 MG tablet [id number] No Take 1 tablet (40 mg) by mouth Daily Cecy Hernandez NP Taking Active dapagliflozin (Farxiga) 5 MG [id number] No Take 1 tablet (5 mg) by mouth in the morning. Ccey Hernandez NP Taking Active fluticasone (Flonase) 50 MCG/ACT nasal spray [id number] No Administer 2 sprays into each nostril Daily Cecy Hernandez NP Taking Active glucose blood (OneTouch Ultra) test strip [id number] No 1 each by Other route Daily Cecy Hernandez NP Taking Active Lancets (OneTouch Delica Plus Cbgzge29S) muscogee [id number] No 1 each by Other route Daily as needed Cecy Hernandez NP Taking Active lisinopril-hydroCHLOROthiazide 20-25 MG tablet [id number] No Take 1 tablet by mouth Daily Cecy Hernandez NP Taking Active loratadine (Allergy Relief) 10 MG tablet [id number] No Take 1 tablet (10 mg) by mouth Daily Cecy Hernandez NP Taking Active meloxicam (Mobic) 15 MG tablet [id number] No Take 1 tablet (15 mg) by mouth Daily Cecy Hernandez NP Taking Active metFORMIN (Glucophage) 1000 MG tablet [id number] No Take 1 tablet (1,000 mg) by mouth in the morning and 1 tablet (1,000 mg) in the evening. Take with meals. Cecy Hernandez NP Taking Active pioglitazone (Actos) 30 MG tablet [id number] No Take 1 tablet (30 mg) by mouth in the morning. Cecy Hernandez NP Taking Active simvastatin (Zocor) 20 MG tablet [id number] No Take 1 tablet (20 mg) by mouth in the evening Cecy Hernandez NP Taking Active tiZANidine (Zanaflex) 4 MG tablet [id number] No Take 1 tablet (4 mg) by mouth as needed at bedtime for muscle spasms Cecy Hernandez NP Taking Active traZODone (Desyrel) 100 MG tablet [id number] No Take 1 tablet (100 mg) by mouth as needed at bedtime for sleep Cecy Hernandez NP Taking Active Patient is here today for follow-up of sensory disturbance and audio visual specialist weakness. I am following the plan of care established by the physician who is present in the office today. HPI HPI Sensory Disturbance and Wool Tamper Weakness -states he will be starting PT this Monday -admits paresthesias in the hands -described as just a weird feeling -denies any numbness or tingling -left hand is worse than right -hand weakness has slightly improved -continues to have some audio visual specialist trouble -admits to fine motor skill difficulty [...] in upper and lower extremities. Coordination Right: Mpndqn-cu-qeam normal. Rapid alternating movement normal.Left: Lylfwr-kv-lcaw normal. Rapid alternating movement normal. Gait Casual gait is normal including stance, stride, and arm swing. Motor Examination RUE Strength deltoid, biceps, triceps, wrist extensors, wrist extensors, wrist flexor, 5/5. audio visual specialist strength decreased LUE Strength deltoid, biceps, triceps, wrist extensors, wrist extensors, wrist flexor 5/5. audio visual specialist strength decreased RLE Strength illopsoas, quadriceps, tibialis [...] EMG normal. Patient was recently seen at [facility] and then transferred to [facility] 03/30/2024 for progressive bilateral distal upper extremity [...] He verbalized understanding. BUE EMG 02/13/2024: normal [facility] testing from 03/23/2024 Brain MRI: focal areas [...] or worsening symptoms documented in this encounter [facility] 04-17-2024 History of Present illness Narrative Images from the original note were not included. [address] [facility] [address] [facility] [id number] Date of Service: 04/17/2024 Subjective: Bhumika Umana Jr. is a 48 [...] time 02/14/2023. Last time the clinic was 07/05/2023 Patient symptoms started when he was 19-year-old [...] SI joints normal, lumbar spine degenerative changes 04/17/2029 for patient continued to have significant pain and stiffness both hands. Currently on amitriptyline as well as meloxicam and Zanaflex The following portions of the patient's history were reviewed and updated as appropriate: allergies, current medications, past family history, past medical history, past social history, past surgical history and problem list. Review of Systems: Review of Systems Constitutional: Negative for fatigue. HENT: Dry mouth Eyes: Dry eye Musculoskeletal: Positive for arthralgias. Mild pain Psychiatric/Behavioral: Negative for sleep disturbance. Current Outpatient Medications Medication Sig Dispense Refill aspirin 81 mg chewable tablet citalopram (CeleXA) 40 mg tablet citalopram 40 mg tablet FARXIGA 5 mg tablet Take 1 tablet (5 mg total) by mouth in the morning. fluticasone propionate (FLONASE) 50 mcg/actuation nasal spray fluticasone propionate 50 mcg/actuation nasal spray,suspension lisinopril-hydroCHLOROthiazide (PRINZIDE,ZESTORETIC) 20-25 mg per tablet lisinopril 20 mg-hydrochlorothiazide 25 mg tablet loratadine (CLARITIN) 10 mg tablet loratadine 10 mg tablet metFORMIN (GLUCOPHAGE) 1000 mg tablet metformin 1,000 mg tablet pioglitazone (ACTOS) 30 mg tablet simvastatin (ZOCOR) 20 mg tablet amitriptyline (ELAVIL) 10 mg tablet TAKE 1 TABLET BY MOUTH DAILY at 8pm 30 tablet 5 meloxicam (MOBIC) 15 mg tablet Take 1 tablet (15 mg total) by mouth in the morning. 30 tablet 3 tiZANidine (ZANAFLEX) 4 mg tablet Take 1 [...] thyromegaly. Pulmonary: Effort: Pulmonary effort is normal. Abdominal: Palpations: Abdomen is soft. Musculoskeletal: General: No tenderness or deformity. Normal range of motion. Cervical back: Normal range of motion and neck supple. Comments: Hands exams flexion contracture both hands with some tightness of the skin both palms with limited extension consistent with limited hand joint mobility Skin: General: Skin is warm and dry. [...] Tender (LANG-28): -- Swollen (LANG-28): -- BP 118/72 Resp 18 Wt (!) 152 kg (335 lb) : reviewed Labs and Imaging: reviewed and discussed with the patient during the visit.I Lab Results Component Value Date WBC 10.1 02/14/2023 HGB 15.9 02/14/2023 HCT 48.4 02/14/2023 MCV 89 02/14/2023 CRP 0.6 02/14/2023 AST 23 02/14/2023 Imaging: X-ray hands as per my review degenerative arthritis of the wrists as well as MCPs with no erosions. X-ray sacroiliac joints as per my review no evidence of sclerosis or erosions. X-ray lumbar spine as per my review degenerative change Assessment and Plan: Bhumika Umana Jr. is a 48 y.o. male patient with: 1. RAVINDER positive - C3 complement; Future - C4 complement; Future - VIJAY Panel; Future 2. Primary osteoarthritis of both hands - amitriptyline [...] bedtime. Dispense: 30 tablet; Refill: 5 - Erythrocyte Sedimentation Rate (ESR); Future - C-reactive protein; Future - Comprehensive metabolic panel; Future - CBC auto differential; Future - X-ray osseous survey limited; Future - Ambulatory referral to Hand Surgery (Non[facility]); Future 3. Diabetic cheirarthropathy (CMS-HCC) - Ambulatory referral to Hand Surgery (Non[facility]); Future At this point I explained the patient that I am not seeing evidence of rheumatoid arthritis . I also explained the patient that he does have hand complications related to diabetes consistent with limited joint mobility. Referral to hand surgeon. Putting order for lab tests. Keeping patient on amitriptyline meloxicam as well as Zanaflex. Advised patient to do the ultrasound of the parotids. Return to clinic 1 month. This note was created with the assistance of a speech recognition program. While intending to generate a timely document that accurately reflects the content of the visit, no guarantee can be provided that every grammatical or spelling mistake has been or will be identified or corrected. Thank you for your understanding. [facility]icians Rheumatology Dr. Lula Cota MD [address] [facility], [address] [place] [address] Office: [phone] documented in this encounter [facility] 03-30-2024 Discharge summary Note Date/Time March 30, 2024 12:47pm [facility] [address] [place] [address] Discharge Summary Signed Patient: Bhumika Umana JR MR#: [id number] : 1975 Acct:[id number] Age/Sex: 48 / M Adm Date: 4 Loc: Room: [address] [place] [address]: Bola Garcia DO Copies to: MD Bola Mast DO Lisa J Aichholz, VENDING MACHINE TECHNICIAN-C~ Providers Date of Discharge: 03/30/24 Discharging Provider: [...] ago and has been feeling fine. Current administrative dietitian is working him up for possible Sjogren's [...] neurology clinic. He needs to see his administrative dietitian in [place]. The following labs are still pending from [...] the neurology office. Follow up with your Energy Technician in [place]. Instructions: Know your Meds Prescriptions: Continued amitriptyline [...] Upper extremity: He does have mildly weak audio visual specialist strength of both hands and mild weakness [...] (Auto) 67.6, Lymph % (Auto) 22.0, [place] % (Auto) 9.0, Eos % (Auto) 1.0, Baso % (Auto) 0.4, Nucleat RBC Rel Count 0.0, Neut # (Auto) 13.5 H, Lymph #(Auto) 4.4, [place] # (Auto) 1.8 H, Eos # (Auto) 0.2, Baso # (Auto) 0.1, PHA Creatinine Clear 238.21, Sodium 136, Potassium 4.4, Chloride 101, Carbon Cfabkzg12.2, Anion Gap 12.2, BUN 13, Creatinine 0.61 [...] (Auto) 77.7, Lymph % (Auto) 14.7, [place] % (Auto) 6.5, Eos % (Auto) 0.6, Baso % (Auto) 0.5, Nucleat RBC Rel Count 0.1, Neut # (Auto) 13.3 H, Lymph #(Auto) 2.5, [place] # (Auto) 1.1 H, Eos # (Auto) [...] signed by Bola Garcia DO> 03/30/24 1247 [facility] Work Phone: 1(840) 349-186108-03-2024 Consult note Author Altagracia Street [facility] March 30, 2024 11:04am Note Date/Time March 30, 2024 10: 08am [facility] [address] [place] [address] Neurology Consult Note Signed Patient: Bhumika Umana JR MR#: [id number] : 1975 Acct:[id number] Age/Sex: 48 / M Adm Date: 4 Loc: 3T Room: [address] [place] [address] Type: ADM INOo Attending Dr: Bola Garcia DO Copies to: DO Cecy Watson NP-C Nicole J Danner, DO~ HPI Consult Date: 03/30/24 Fishing Lure Assembler: Altagracia Street DO Reason for consult: weakness Consult Narrative HPI: 48-year-old male being seen in Neurology consultation at the request of the hospitalist. The patient was recently admitted worked up and released for similar issues. The patient has a PMH of T2DM, HTN, depression adn RA. The patient returned to the hoptal/ED wt new complaints of BLE where his [...] that his hands feel like they have opzv-yjo-gvleltxsy them. He was discharged from the hospital [...] ago and has been feeling fine. Current administrative dietitian is working him up for possible Sjogren's [...] Denies dizziness, Reports headache(s) and Reports weakness [facility] Medical History Depressed Acute rheumatoid arthritis Diabetes HTN (hypertension) Surgical History History of tonsillectomy and adenoidectomy Family History Father Myocardial infarction Heart disease Mother Family history of colon cancer Cancer [facility] Problem: Diagnosed with Cancer Hypertension Social [...] Confirmed 03/30/24] dapagliflozin propanediol 5 mg tablet ([place]) 10 mg PO DAILY 03/23/24 [History Confirmed [...] Mert Ferreira M.D.03/30/2024 9:26 AM Dictation Location: [place] [address] Assessment/Plan (1) Bilateral arm weakness: (2) Bilateral [...] <Electronically signed by DO Altagracia Street> 03/30/24 6156 [facility] Work Phone: 1(701) 195-812408-03-2024 History and physical note Author Edgar Gomez [facility] March 30, 2024 6:59am Note Date/Time March 30, 2024 1:3 8am [facility] [address] [place] [address] Hospitalist H&P Signed Patient: Bhumika Umana JR MR#: [id number] : 1975 Acct:[id number] Age/Sex: 48 / M Adm Date: 4 Loc: Room: 3L4029-5 Type: ADM INOo Attending Dr: Edgar Gomez MD Copies to: MD Cecy Jeter, KAYLA Kennedy, TRUCK AND TRANSPORT MECHANIC~ HPI DATE OF EXAMINATION: 03/30/24 CHIEF COMPLAINT: [...] that his hands feel like they have vpsr-ssr-etngmcn in them. He is moving both of [...] ago and has been feeling fine. Current administrative dietitian is working him up for possible Sjogren's [...] unless noted in the HPI or below. [facility] Medical History (Updated 03/30/24 @ 00:44 by [...] (Auto) 14.7 % (.) 03/29/24 22:50 [place] % (Auto) 6.5 % (.) 03/29/24 22:50 Eos % (Auto) 0.6 % (.) 03/29/24 22:50 Baso % (Auto) 0.5 % (.) 03/29/24 22:50 Nucleat RBC Rel Count 0.1 /100 WBC (0-0.5) 03/29/24 22:50 Neut # (Auto) 13.3 x10E3/uL (1.8-7.7) H 03/29/24 22:50 Lymph # (Auto) 2.5 x10E3/uL (1.00-4.8) 03/29/24 22:50 [place] # (Auto) 1.1 x10E3/uL (0.0-0.8) H 03/29/24 [...] signed by Edgar Gomez MD> 03/30/24 0659 [facility] Work Phone: 1(101) 666-260607-29-2024 Progress note Author Danial Horan [facility] March 25, 2024 2:09pm Note Date/Time March 25, 2024 2:03 pm [facility] [address] [place] [address] Neurology Progress Note Signed Patient: Bhumika Umana MR#: [id number] : 1975 Acct:[id number] Age/Sex: 48 / M Adm Date: 4 Loc: 3T Room: [address] [place] [address] Type: ADM IN Attending Dr: Simon Wolfe [...] wrist flexion, +2/5 bilateralfinger extension, +4/5 bilateral audio visual specialist strength, +3/5 finger abduction bilaterally. No tremors. [...] standpoint Documented By: Danial Horan DO 03/25/24 3045 Signed By: <Electronically signed by Danial Horan DO> 03/25/24 7262 [facility] Work Phone: 1(285) 661-348407-28-2024 Progress note Author Danial Horan [facility] March 24, 2024 1:33pm Note Date/Time March 24, 2024 1:33 pm [facility] [address] [place] [address] Neurology Progress Note Signed Patient: Bhumika Umana JR MR#: [id number] : 1975 Acct:[id number] Age/Sex: 48 / M Adm Date: 4 Loc: Room: [address] [place] [address] Type: ADM IN Attending Dr: Elder Iyer [...] wrist flexion, +2/5 bilateralfinger extension, +4/5 bilateral audio visual specialist strength, +3/5 finger abduction bilaterally. No tremors. [...] signed by Danial Horan DO> 03/24/24 1333 [facility] Work Phone: 1(545) 295-244707-28-2024 Progress note Author Elder Iyer [facility] March 24, 2024 11:01am Note Date/Time March 24, 2024 11:0 1am [facility] [address] [place] [address] Hospitalist Progress Note Signed Patient: Bhumika Umana JR MR#: [id number] : 1975 Acct:[id number] Age/Sex: 48 / M Adm Date: 4 Loc: Room: [address] [place] [address] Type: ADM IN Attending Dr: Elder Iyer [...] his hands where he can't make a audio visual specialist, mentions that he could not hold a [...] spray 03/23/24 22:00 03/23/24 21:18 Fluticasone Propionate [place] 120 [place]/16 Gm Bottle NARES-BOTH 03/23/25 21:59 Not Given [...] Insuln.Pen SUBCUT 03/23/25 07:59 Not Given TID.WM.HS [facility] Protocol Lisinopril 20 mg [...] of his bilateral worsening in his hand audio visual specialist this am -He is off steroids -His MRI of brain showed patchy changes, especially in the biparietal periventricular white matter, -Pt will need repeat of the MRI cervical spine with and without contrast here [facility], will need better resolution study [...] <Electronically signed by Elder Iyer MD> 03/24/24 1105 [facility] Work Phone: 1(113) 711-223607-27-2024 Progress note Author Elder Iyer [facility] March 23, 2024 2:33pm Note Date/Time March 23, 2024 2:33 pm [facility] [address] [place] [address] Hospitalist Progress Note Signed Patient: Bhumika Umana JR MR#: [id number] : 1975 Acct:[id number] Age/Sex: 48 / M Adm Date: 4 Loc: 3T Room: [address] [place] [address] Type: ADM IN Attending Dr: Elder Iyer [...] reviewed today: Cervical spine MRI done in [place]: The MRI of the cervical spine is [...] and without contrast done here at [facility]: Focal areas of abnormal signal [...] in his hands and can make a audio visual specialist, sensation is normal over the bilateral upper [...] Propionate 2 spray 03/23/24 22:00 Fluticasone Propionate [place] 120 [place]/16 Gm Bottle NARES-BOTH 03/23/25 21:59 QHS FARZANEH [...] Tablet PO 03/23/25 08:59 25 mg DAILY FARAZNEH Administration Insulin Aspart 0 units 03/23/24 08:00 [...] cervical [facility] with and without [facility], will need better resolution study 3 parisa [...] 50 Documented By: Elder Iyer MD 03/23/24 3090 Signed By: <Electronically signed by Elder Iyer MD> 03/23/24 1433 [facility] Work Phone: 1([phone]) 409-506407-27-2024 Consult note Author Danial Horan [facility] March 23, 2024 1:05pm Note Date/Time March 23, 2024 11:3 9am [facility] [address] [place] [address] Neurology Consult Note Signed Patient: Bhumika Umana JR MR#: [id number] : 1975 Acct:[id number] Age/Sex: 48 / M Adm Date: 4 Loc: Room: [address] [place] [address] Type: ADM IN Attending Dr: Elder Iyer MD Copies to: DO Cecy Aguirre, VENDING MACHINE TECHNICIAN-C Elder Iyer MD~ HPI Consult Date: 03/23/24 Fishing Lure Assembler: Danial Horan DO [facility] Medical History (Updated 03/23/24 @ 02:25 by [...] Gonzales Jr., D.O.03/23/2024 9:33 AM Dictation Location: [place] [address] Brain MRI 03/23/24 02:09 Impression: No acute process. No abnormal enhancement. Focal areas of abnormal signal are seen on the T2 and T2 FLAIR imaging within the white matter. Given the patient's age, this finding is nonspecific and a demyelinating process cannot BE excluded. Impression dictated by: Rene Gonzales Jr., D.O.03/23/2024 10:46 AM Dictation Location: [facility]--15 Therapy Recommendations Therapy Recommendations: PT Recommendations DC [...] his close, etc. He went to the [place] emergency department to be evaluated and had to sign some for there and had used two handsto manipulate the pen. The [place] emergency department called me overnight and told [...] wrist flexion, +2/5 bilateralfinger extension, +4/5 bilateral audio visual specialist strength, +3/5 finger abduction bilaterally. No tremors. [...] clinic Documented By: Danial Horan DO 03/23/24 1138 Signed By: <Electronically signed by Danial Horan DO> 03/23/24 1305 [facility] Work Phone: 1(762) 965-757507-27-2024 History and physical note Author Bola Garcia [facility] March 23, 2024 2:28am Note Date/Time March 23, 2024 2:28 am [facility] [address] [place] [address] Hospitalist H&P Signed Patient: Bhumika Umana JR MR#: [id number] : 1975 Acct:[id number] Age/Sex: 48 / M Adm Date: 4 Loc: 3T Room: [address] [place] [address] Type: ADM IN Attending Dr: Bola Garcia DO Copies to: DO Cecy Watson NP-C~ HPI DATE OF EXAMINATION: 03/23/24 CHIEF COMPLAINT: Worsening weakness of both upper extremities. HISTORY OF PRESENT ILLNESS: This is a 48-year-old man who was sent to the emergency room at [facility] from the emergency room at [facility] as a ED to ED transfer at [...] on prednisone 2 days ago by the [place] ER. In [place] he has had a workup including a CT scan of his cervical spine and then an MRI of his cervical spine performed on March 19, 2024. Contact was made with the neurologist who felt thatthe patient should be brought over here to [facility] so he can get an [...] like he recently got established with a administrative dietitian at the [facility] system in [place] who told himthat his situation was not [...] except as mentioned elsewhere in the documentation. [facility] Medical History (Updated 03/23/24 @ 02:25 by Bola Garcia DO) Depressed Acute rheumatoid arthritis Diabetes HTN (hypertension) Surgical History History of tonsillectomy and adenoidectomy Family History Father Myocardial infarction Heart disease Mother Family history of colon cancer [facility] Problem: Diagnosed with Cancer Hypertension Social History [...] (Auto) 8.2 % (.) 03/23/24 00:52 [place] % (Auto) 1.0 % (.) 03/23/24 00:52 Eos % (Auto) 0.0 % (.) 03/23/24 00:52 Baso % (Auto) 0.5 % (.) 03/23/24 00:52 Nucleat RBC Rel Count 0.1 /100 WBC (0-0.5) 03/23/24 00:52 Neut # (Auto) 15.5 x10E3/uL (1.8-7.7) H 03/23/24 00:52 Lymph # (Auto) 1.4 x10E3/uL (1.00-4.8) 03/23/24 00:52 [place] # (Auto) 0.2 x10E3/uL (0.0-0.8) 03/23/24 00:52 [...] He has been established recently with a administrative dietitian out of the [facility] system in [place]. Plan: MRI of the brain with and [...] <Electronically signed by Bola Garcia DO> 03/23/24227 [facility] Work Phone: 1(460) 153-496502-11-2022 Evaluation note* Encounter Date Diagnosis Assessment Notes [...] Patient care instructions given in writting by [facility] Care At Home document. [employer] Other [employer]ash[employer]ge summary Author Simon Wolfe [facility] March 25, 2024 5:58pm Note Date/Time March 25, 2024 5:50 pm [facility] [address] [place] [address] Discharge Summary Signed Patient: Bhumika Umana JR MR#: [id number] : 1975 Acct:[id number] Age/Sex: 48 / M Adm Date: 4 Loc: Room: [address] [place] [address]: Simon Wolfe MD Copies to: MD Cecy Mcdowell, VENDING MACHINE TECHNICIAN-C~ Providers Date of Discharge: 03/25/24 Discharging Provider: [...] Deferred Neuro: AAO x3, no focal deficits. Wool Tamper strength 4+/5 throughout. 5/5 otherwise Extremities: No [...] 08:43: CSF Supernatant Color Colorless, CSF RBC [id number] 03/25/24 08:43: CSF Color Lt pink, CSF [...] N/A Documented By: Simon Wolfe MD 4 1747 Signed By: <Electronically signed by Simon Wolfe MD> 03/25/24 1750 [facility] Work Phone: Evaluation note* Diagnosis Type 2 diabetes mellitus without complication, without long-term current use of insulin (CMS/HCC)- Primary Type 2 diabetes mellitus without complications (CMS/HCC) documented [facility] encounter [facility] Diagnosis Onset Date Resolution Status Diabetes acute HTN (hypertension) acute Upper extremity weakness acu te [facility] Work Phone: Evaluation note* Diagnosis Onset Date Resolution Status Diabetes acute HTN (hypertension) acute Upper extremity weakness acu te Bilateral arm weakness acute Bilateral leg weakness acute Diabetes acute HTN (hypertension) acute Leukocytosis acute Upper extremity weakness acu te [facility] Work Phone: Evaluation note* Diagnosis Onset Date Resolution Status Diabetes acute HTN (hypertension) acute Upper extremity weakness acu te Bilateral arm weakness acute Bilateral leg weakness acute Diabetes acute Falls acute Fasciculation acute HTN (hypertension) acute Leukocytosis acute Upper extremity weakness acu te [facility] Work Phone: Evaluation note* Diagnosis Type 2 diabetes mellitus without complication, without long-term current use of insulin (CMS/HCC) Type 2 diabetes mellitus without complications (CMS/HCC) Depression, unspecified (CMS/HCC) Other chronic pain documented in this encounter [facility]* Diagnosis Injury of toe on right foot, initial encounter- Primary [facility] Diagnosis Generalized weakness- Primary Other malaise and fatigue Paresthesia of skin Disturbance of skin sensation documented [facility]* Diagnosis Essential hypertension, benign [...] of 45.0 to 49.9 in adult (CMS/HCC) Depression, unspecified depression type (CMS/HCC) Type 2 diabetes mellitus without complication, without long-term current use of insulin (CMS/HCC)- Primary Essential hypertension, benign (CMS/HCC) Essential hypertension, benign Asymptomatic microscopic hematuria Degenerative disc disease, cervical Class 3 severe obesity due to excess calories without serious comorbidity with body mass index (BMI) of 45.0 to 49.9 in adult (CMS/HCC) Upper extremity weakness- Primary Other musculoskeletal symptoms referable to limbs Morbid (severe) obesity due to excess calories (CMS/HCC) Body mass index (BMI) 40.0-44.9, adult (CMS/HCC) Rheumatoid arthritis with rheumatoid factor, unspecified (CMS/HCC) Depression, unspecified (CMS/HCC) Type 2 diabetes mellitus without complication, without long-term current use of insulin ([facility]) Other seasonal allergic rhinitis Essential hypertension, benign ([facility]) Essential hypertension, benign Essential (primary) hypertension ([facility]) Unspecified essential hypertension Type 2 diabetes mellitus without complications ([facility]) Other chronic pain Primary insomnia Persistent disorder of initiating or maintaining sleep Essential hypertension, benign ([facility]/HCC)- Primary Essential hypertension, benign Type 2 diabetes mellitus without complication, without long-term current use of insulin ([facility]) Body mass index (BMI) 40.0-44.9, adult ([facility]) Morbid (severe) obesity due to excess calories ([facility]) Other seasonal allergic rhinitis documented in this encounter [facility] HealthcareEvaluation note* Diagnosis Brachial plexopathy- Primary Brachial plexus lesions Obesity, Class II, BMI 35-39.9 Obesity, unspecified [facility] Diagnosis Financial difficulty- Primary Inadequate material resources [facility] Diagnosis Essential hypertension, benign ([facility]/HCC)- Primary Essential hypertension, benign Type 2 diabetes mellitus without complication, without long-term current use of insulin ([facility]) Class 3 severe obesity due to excess calories without serious comorbidity with body mass index (BMI) of 45.0 to 49.9 in adult ([facility]) Autoimmune disease ([facility]) Autoimmune disease, not elsewhere classified Essential (primary) hypertension ([facility]) Unspecified essential hypertension Other chronic pain Type 2 diabetes mellitus without complications ([facility]) Type 2 diabetes mellitus without complication, without long-term current use of insulin ([facility])- Primary Primary insomnia Persistent disorder of initiating or maintaining sleep Essential hypertension, benign ([facility]) Essential hypertension, benign Class 3 severe obesity due to excess calories without serious comorbidity with body mass index (BMI) of 45.0 to 49.9 in adult ([facility]) Depression, unspecified depression type ([facility]) Type 2 diabetes mellitus without complication, without long-term current use of insulin ([facility])- Primary Essential hypertension, benign ([facility]) Essential hypertension, benign Asymptomatic microscopic hematuria Degenerative disc disease, cervical Class 3 severe obesity due to excess calories without serious comorbidity with body mass index (BMI) of 45.0 to 49.9 in adult ([facility]) Upper extremity weakness- Primary Other musculoskeletal symptoms referable to limbs Morbid (severe) obesity due to excess calories ([facility]/HCC) Body mass index (BMI) 40.0-44.9, adult (CMS/FORMERLY [...] (CMS/HCC) Body mass index (BMI) 40.0-44.9, adult ([facility]) Morbid (severe) obesity due to excess calories ([facility]) Upper extremity weakness- Primary Other musculoskeletal symptoms referable to limbs Depression, unspecified ([facility]) Type 2 diabetes mellitus without complication, without long-term current use of insulin ([facility]) Essential hypertension, benign (CMS/HCC) Essential hypertension, benign Essential (primary) hypertension (CMS/HCC) Unspecified essential hypertension Type 2 diabetes mellitus without complications (CMS/HCC) Obesity, Class II, BMI 35-39.9 Weakness Other malaise and fatigue Rheumatoid arthritis with rheumatoid factor, unspecified (CMS/HCC) Autoimmune disease (CMS/HCC) Autoimmune disease, not elsewhere classified Moderate episode of recurrent major depressive disorder (CMS/HCC) documented in this encounter [facility] HealthcareEvaluation note* Diagnosis Essential hypertension, benign (CMS/HCC)- Primary Essential hypertension, benign Type 2 diabetes mellitus without complication, without long-term current use of insulin (CMS/HCC) Class 3 severe obesity due to excess calories without serious comorbidity with body mass index (BMI) of 45.0 to 49.9 in adult ([facility]) Autoimmune disease (CMS/HCC) Autoimmune disease, not elsewhere [...] (BMI) of 45.0 to 49.9 in adult ([facility]) Depression, unspecified depression type (CMS/HCC) Type 2 diabetes mellitus without complication, without long-term current use of insulin ([facility])- Primary Essential hypertension, benign (CMS/HCC) Essential hypertension, benign Asymptomatic microscopic hematuria Degenerative disc disease, cervical Class 3 severe obesity due to excess calories without serious comorbidity with body mass index (BMI) of 45.0 to 49.9 in adult ([facility]) Upper extremity weakness- Primary Other musculoskeletal symptoms referable to limbs Morbid (severe) obesity due to excess calories (CMS/HCC) Body mass index (BMI) 40.0-44.9, adult ([facility]) Rheumatoid arthritis with rheumatoid factor, unspecified ([facility]) Depression, unspecified ([facility]) Type 2 diabetes mellitus without complication, without long-term current use of insulin ([facility]) Other seasonal allergic rhinitis Essential hypertension, benign ([facility]) Essential hypertension, benign Essential (primary) hypertension (CMS/HCC) Unspecified essential hypertension Type 2 diabetes mellitus without complications ([facility]) Other chronic pain Primary insomnia Persistent disorder of initiating or maintaining sleep Essential hypertension, benign (CMS/HCC)- Primary Essential hypertension, benign Type 2 diabetes mellitus without complication, without long-term current use of insulin ([facility]) Body mass index (BMI) 40.0-44.9, adult ([facility]) Morbid (severe) obesity due to excess calories ([facility]) Upper extremity weakness- Primary Other musculoskeletal symptoms referable to limbs Depression, unspecified ([facility]) Type 2 diabetes mellitus without complication, without long-term current use of insulin ([facility]) Essential hypertension, benign (CMS/HCC) Essential hypertension, benign Essential (primary) hypertension (CMS/HCC) Unspecified essential hypertension Type 2 diabetes mellitus without complications ([facility]) Obesity, Class II, BMI 35-39.9 Weakness Other malaise and fatigue Rheumatoid arthritis with rheumatoid factor, unspecified ([facility]) Autoimmune disease ([facility]) Autoimmune disease, not elsewhere classified Moderate episode of recurrent major depressive disorder ([facility]) Type 2 diabetes mellitus without complication, without long-term current use of insulin ([facility]) documented in this encounter [facility] HealthcareEvaluation note* Diagnosis Upper extremity weakness- Primary Other musculoskeletal symptoms referable to limbs documented in this encounter [facility] HealthcareEvaluation note* Diagnosis Type 2 diabetes mellitus without complication, without long-term current use of insulin ([facility]) documented in this encounter [facility] HealthcareEvaluation note* Diagnosis Sensory disturbance- Primary Disturbance of skin sensation Weakness Other malaise and fatigue Degenerative disc disease, cervical documented in this encounter [facility] HealthcareEvaluation note* Diagnosis Essential hypertension, benign ([facility])- Primary Essential hypertension, benign Type 2 diabetes mellitus without complication, without long-term current use of insulin ([facility]) Body mass index (BMI) 40.0-44.9, adult ([facility]) Morbid (severe) obesity due to excess calories ([facility]) documented in this encounter [facility] HealthcareEvaluation note* Diagnosis CIDP (chronic inflammatory demyelinating polyneuropathy) ([facility])- Primary Chronic inflammatory demyelinating polyneuritis documented in this encounter [facility] SystemEvaluation note* Diagnosis CIDP (chronic inflammatory demyelinating polyneuropathy) ([facility]) Chronic inflammatory demyelinating polyneuritis Primary osteoarthritis of both hands documented in this encounter [facility] SystemEvaluation note* Diagnosis Primary osteoarthritis of both hands- Primary CIDP (chronic inflammatory demyelinating polyneuropathy) ([facility]) Chronic inflammatory demyelinating polyneuritis Diabetic cheirarthropathy ([facility]) documented in this encounter [facility] System[facility] note* Diagnosis CIDP (chronic inflammatory demyelinating polyneuropathy) ([facility])- Primary Chronic inflammatory demyelinating polyneuritis documented in this encounter [facility] SystemEvaluation note* Diagnosis Essential hypertension, benign ([facility])- Primary Essential hypertension, benign Type 2 diabetes mellitus without complication, without long-term current use of insulin ([facility]) Class 3 severe obesity due to excess calories without serious comorbidity with body mass index (BMI) of 45.0 to 49.9 in adult ([facility]) Autoimmune disease ([facility]) Autoimmune disease, not elsewhere classified Essential (primary) hypertension ([facility]) Unspecified essential hypertension Other chronic pain Type 2 diabetes mellitus without complications ([facility]) Type 2 diabetes mellitus without complication, without long-term current use of insulin ([facility])- Primary Primary insomnia Persistent disorder of initiating or maintaining sleep Essential hypertension, benign ([facility]) Essential hypertension, benign Class 3 severe obesity due to excess calories without serious comorbidity with body mass index (BMI) of 45.0 to 49.9 in adult ([facility]) Depression, unspecified depression type ([facility]) Type 2 diabetes mellitus without complication, without long-term current use of insulin ([facility])- Primary Essential hypertension, benign ([facility]) Essential hypertension, benign Asymptomatic microscopic hematuria Degenerative disc disease, cervical Class 3 severe obesity due to excess calories without serious comorbidity with body mass index (BMI) of 45.0 to 49.9 in adult ([facility]) Upper extremity weakness- Primary Other musculoskeletal symptoms referable to limbs Morbid (severe) obesity due to excess calories ([facility]) Body mass index (BMI) 40.0-44.9, adult ([facility]) Rheumatoid arthritis with rheumatoid factor, unspecified ([facility]) Depression, unspecified ([facility]) Type 2 diabetes mellitus without complication, without long-term current use of insulin ([facility]) Other seasonal allergic rhinitis Essential hypertension, benign ([facility]) Essential hypertension, benign Essential (primary) hypertension ([facility]) Unspecified essential hypertension Type 2 diabetes mellitus without complications ([facility]) Other chronic pain Primary insomnia Persistent disorder of initiating or maintaining sleep Essential hypertension, benign ([facility])- Primary Essential hypertension, benign Type 2 diabetes mellitus without complication, without long-term current use of insulin ([facility]) Body mass index (BMI) 40.0-44.9, adult ([facility]) Morbid (severe) obesity due to excess calories ([facility]) Upper extremity weakness- Primary Other musculoskeletal symptoms referable to limbs Depression, unspecified ([facility]) Type 2 diabetes mellitus without complication, without long-term current use of insulin ([facility]) Essential hypertension, benign ([facility]) Essential hypertension, benign Essential (primary) hypertension ([facility]) Unspecified essential hypertension Type 2 diabetes mellitus without complications ([facility]) Obesity, Class II, BMI 35-39.9 Weakness Other malaise and fatigue Rheumatoid arthritis with rheumatoid factor, unspecified ([facility]) Autoimmune disease ([facility]) Autoimmune disease, not elsewhere classified Moderate episode of recurrent major depressive disorder ([facility]) CIDP (chronic inflammatory demyelinating polyneuropathy) ([facility])- Primary Chronic inflammatory demyelinating polyneuritis Major depressive disorder, recurrent, moderate ([facility]) Major depressive disorder, recurrent episode, moderate Morbid (severe) obesity due to excess calories ([facility]) Essential (primary) hypertension ([facility]) Unspecified essential hypertension Body mass index (BMI) 39.0-39.9, adult Rheumatoid arthritis with rheumatoid factor, unspecified ([facility]) Type 2 diabetes mellitus without complications ([facility]) Essential hypertension, benign ([facility]) Essential hypertension, benign Type 2 diabetes mellitus without complication, without long-term current use of insulin ([facility]) Upper extremity weakness Other musculoskeletal symptoms referable to limbs documented in this encounter [facility] HealthcareEvaluation note* Diagnosis Hunger, initial encounter- Primary CIDP (chronic inflammatory demyelinating polyneuropathy) ([facility]) Chronic inflammatory demyelinating polyneuritis documented in this encounter [facility] SystemEvaluation note* Diagnosis CIDP (chronic inflammatory demyelinating polyneuropathy) ([facility])- Primary Chronic inflammatory demyelinating polyneuritis documented in this encounter [facility] SystemEvaluation note* Diagnosis RAVINDER positive- Primary Primary osteoarthritis of both hands Diabetic cheirarthropathy ([facility]) documented in this encounter [facility] SystemEvaluation note* Diagnosis Primary osteoarthritis of both hands- Primary Myopathy Unspecified myopathy Diabetic cheirarthropathy ([facility]) documented in this encounter [facility] SystemEvaluation note* Diagnosis Essential hypertension, benign ([facility])- Primary Essential hypertension, benign Type 2 diabetes mellitus without complication, without long-term current use of insulin ([facility]) Class 3 severe obesity due to excess calories without serious comorbidity with body mass index (BMI) of 45.0 to 49.9 in adult ([facility]) Autoimmune disease ([facility]) Autoimmune disease, not elsewhere classified Essential (primary) hypertension ([facility]) Unspecified essential hypertension Other chronic pain Type 2 diabetes mellitus without complications ([facility]) Type 2 diabetes mellitus without complication, without long-term current use of insulin ([facility])- Primary Primary insomnia Persistent disorder of initiating or maintaining sleep Essential hypertension, benign ([facility]) Essential hypertension, benign Class 3 severe obesity due to excess calories without serious comorbidity with body mass index (BMI) of 45.0 to 49.9 in adult ([facility]) Depression, unspecified depression type ([facility]) Type 2 diabetes mellitus without complication, without long-term current use of insulin ([facility])- Primary Essential hypertension, benign ([facility]) Essential hypertension, benign Asymptomatic microscopic hematuria Degenerative disc disease, cervical Class 3 severe obesity due to excess calories without serious comorbidity with body mass index (BMI) of 45.0 to 49.9 in adult ([facility]) Upper extremity weakness- Primary Other musculoskeletal symptoms referable to limbs Morbid (severe) obesity due to excess calories ([facility]) Body mass index (BMI) 40.0-44.9, adult ([facility]) Rheumatoid arthritis with rheumatoid factor, unspecified ([facility]) Depression, unspecified ([facility]) Type 2 diabetes mellitus without complication, without long-term current use of insulin ([facility]) Other seasonal allergic rhinitis Essential hypertension, benign ([facility]) Essential hypertension, benign Essential (primary) hypertension ([facility]) Unspecified essential hypertension Type 2 diabetes mellitus without complications ([facility]) Other chronic pain Primary insomnia Persistent disorder of initiating or maintaining sleep Essential hypertension, benign ([facility])- Primary Essential hypertension, benign Type 2 diabetes mellitus without complication, without long-term current use of insulin ([facility]) Body mass index (BMI) 40.0-44.9, adult ([facility]) Morbid (severe) obesity due to excess calories ([facility]) Upper extremity weakness- Primary Other musculoskeletal symptoms referable to limbs Depression, unspecified ([facility]) Type 2 diabetes mellitus without complication, without long-term current use of insulin ([facility]) Essential hypertension, benign ([facility]) Essential hypertension, benign Essential (primary) hypertension ([facility]) Unspecified essential hypertension Type 2 diabetes mellitus without complications ([facility]) Obesity, Class II, BMI 35-39.9 Weakness Other malaise and fatigue Rheumatoid arthritis with rheumatoid factor, unspecified ([facility]) Autoimmune disease ([facility]) Autoimmune disease, not elsewhere classified Moderate episode of recurrent major depressive disorder ([facility]) CIDP (chronic inflammatory demyelinating polyneuropathy) ([facility])- Primary Chronic inflammatory demyelinating polyneuritis Major depressive disorder, recurrent, moderate ([facility]) Major depressive disorder, recurrent episode, moderate Morbid (severe) obesity due to excess calories ([facility]) Essential (primary) hypertension ([facility]) Unspecified essential hypertension Body mass index (BMI) 39.0-39.9, adult Rheumatoid arthritis with rheumatoid factor, unspecified ([facility]) Type 2 diabetes mellitus without complications ([facility]) Essential hypertension, benign ([facility]) Essential hypertension, benign Type 2 diabetes mellitus without complication, without long-term current use of insulin ([facility]) Upper extremity weakness Other musculoskeletal symptoms referable to limbs CIDP (chronic inflammatory demyelinating polyneuropathy) ([facility])- Primary Chronic inflammatory demyelinating polyneuritis Paresthesia of skin Muscle weakness (generalized) Myopathy Unspecified myopathy Upper extremity weakness Other musculoskeletal symptoms referable to limbs Autoimmune disease ([facility]) Autoimmune disease, not elsewhere classified Rheumatoid arthritis with rheumatoid factor, unspecified ([facility]) Weakness Other malaise and fatigue documented in this encounter [facility] HealthcareEvaluation note* Diagnosis Essential hypertension, benign ([facility])- Primary Essential hypertension, benign Type 2 diabetes mellitus without complication, without long-term current use of insulin ([facility]) Class 3 severe obesity due to excess calories without serious comorbidity with body mass index (BMI) of 45.0 to 49.9 in adult ([facility]) Autoimmune disease ([facility]) Autoimmune disease, not elsewhere classified Essential (primary) hypertension ([facility]) Unspecified essential hypertension Other chronic pain Type 2 diabetes mellitus without complications ([facility]) Type 2 diabetes mellitus without complication, without long-term current use of insulin ([facility])- Primary Primary insomnia Persistent disorder of initiating or maintaining sleep Essential hypertension, benign ([facility]) Essential hypertension, benign Class 3 severe obesity due to excess calories without serious comorbidity with body mass index (BMI) of 45.0 to 49.9 in adult ([facility]) Depression, unspecified depression type ([facility]) Type 2 diabetes mellitus without complication, without long-term current use of insulin ([facility])- Primary Essential hypertension, benign ([facility]) Essential hypertension, benign Asymptomatic microscopic hematuria Degenerative disc disease, cervical Class 3 severe obesity due to excess calories without serious comorbidity with body mass index (BMI) of 45.0 to 49.9 in adult ([facility]) Upper extremity weakness- Primary Other musculoskeletal symptoms referable to limbs Morbid (severe) obesity due to excess calories ([facility]) Body mass index (BMI) 40.0-44.9, adult ([facility]) Rheumatoid arthritis with rheumatoid factor, unspecified ([facility]) Depression, unspecified ([facility]) Type 2 diabetes mellitus without complication, without long-term current use of insulin ([facility]) Other seasonal allergic rhinitis Essential hypertension, benign (CMS/HCC) Essential hypertension, benign Essential (primary) hypertension (CMS/HCC) Unspecified essential hypertension Type 2 diabetes mellitus without complications ([facility]) Other chronic pain Primary insomnia Persistent disorder of initiating or maintaining sleep Essential hypertension, benign (CMS/HCC)- Primary Essential hypertension, benign Type 2 diabetes mellitus without complication, without long-term current use of insulin ([facility]) Body mass index (BMI) 40.0-44.9, adult ([facility]) Morbid (severe) obesity due to excess calories ([facility]) Upper extremity weakness- Primary Other musculoskeletal symptoms referable to limbs Depression, unspecified ([facility]) Type 2 diabetes mellitus without complication, without long-term current use of insulin ([facility]) Essential hypertension, benign (CMS/HCC) Essential hypertension, benign Essential (primary) hypertension ([facility]) Unspecified essential hypertension Type 2 diabetes mellitus without complications ([facility]) Obesity, Class II, BMI 35-39.9 Weakness Other malaise and fatigue Rheumatoid arthritis with rheumatoid factor, unspecified ([facility]) Autoimmune disease ([facility]) Autoimmune disease, not elsewhere classified Moderate episode of recurrent major depressive disorder ([facility]) CIDP (chronic inflammatory demyelinating polyneuropathy) ([facility])- Primary Chronic inflammatory demyelinating polyneuritis Major depressive disorder, recurrent, moderate ([facility]) Major depressive disorder, recurrent episode, moderate Morbid (severe) obesity due to excess calories ([facility]) Essential (primary) hypertension ([facility]) Unspecified essential hypertension Body mass index (BMI) 39.0-39.9, adult Rheumatoid arthritis with rheumatoid factor, unspecified ([facility]) Type 2 diabetes mellitus without complications ([facility]) Essential hypertension, benign ([facility]) Essential hypertension, benign Type 2 diabetes mellitus without complication, without long-term current use of insulin ([facility]) Upper extremity weakness Other musculoskeletal symptoms referable to limbs CIDP (chronic inflammatory demyelinating polyneuropathy) ([facility])- Primary Chronic inflammatory demyelinating polyneuritis Paresthesia of skin Muscle weakness (generalized) Myopathy Unspecified myopathy Autoimmune disease ([facility]) Autoimmune disease, not elsewhere classified Rheumatoid arthritis with rheumatoid factor, unspecified ([facility]) Weakness Other malaise and fatigue documented in this encounter [facility] HealthcareEvaluation note* Diagnosis Essential hypertension, benign ([facility]/HCC)- Primary Essential hypertension, benign Type 2 diabetes mellitus without complication, without long-term current use of insulin ([facility]) Class 3 severe obesity due to excess calories without serious comorbidity with body mass index (BMI) of 45.0 to 49.9 in adult ([facility]) Autoimmune disease ([facility]) Autoimmune disease, not elsewhere classified Essential (primary) hypertension ([facility]) Unspecified essential hypertension Other chronic pain Type 2 diabetes mellitus without complications ([facility]) Type 2 diabetes mellitus without complication, without long-term current use of insulin ([facility])- Primary Primary insomnia Persistent disorder of initiating or maintaining sleep Essential hypertension, benign ([facility] [facility]) Essential hypertension, benign Class 3 severe obesity due to excess calories without serious comorbidity with body mass index (BMI) of 45.0 to 49.9 in adult ([facility]) Depression, unspecified depression type ([facility]) Type 2 diabetes mellitus without complication, without long-term current use of insulin ([facility])- Primary Essential hypertension, benign ([facility]) Essential hypertension, benign Asymptomatic microscopic hematuria Degenerative disc disease, cervical Class 3 severe obesity due to excess calories without serious comorbidity with body mass index (BMI) of 45.0 to 49.9 in adult ([facility]) Upper extremity weakness- Primary Other musculoskeletal symptoms referable to limbs Morbid (severe) obesity due to excess calories ([facility]) Body mass index (BMI) 40.0-44.9, adult ([facility]) Rheumatoid arthritis with rheumatoid factor, unspecified ([facility]) Depression, unspecified ([facility]) Type 2 diabetes mellitus without complication, without long-term current use of insulin ([facility]) Other seasonal allergic rhinitis Essential hypertension, benign ([facility]) Essential hypertension, benign Essential (primary) hypertension ([facility]) Unspecified essential hypertension Type 2 diabetes mellitus without complications ([facility]) Other chronic pain Primary insomnia Persistent disorder of initiating or maintaining sleep Essential hypertension, benign ([facility])- Primary Essential hypertension, benign Type 2 diabetes mellitus without complication, without long-term current use of insulin ([facility]) Body mass index (BMI) 40.0-44.9, adult ([facility]) Morbid (severe) obesity due to excess calories ([facility]) Upper extremity weakness- Primary Other musculoskeletal symptoms referable to limbs Depression, unspecified ([facility]/HCC) Type 2 diabetes mellitus without complication, without [...] without long-term current use of insulin (CMS/HCC) Upper extremity weakness Other musculoskeletal symptoms referable to limbs CIDP (chronic inflammatory demyelinating polyneuropathy) (CMS/HCC)- Primary Chronic inflammatory demyelinating polyneuritis documented in this encounter [facility] HealthcareEvaluation noteNo assessment information availableGood Samaritan Hospital Work Phone: Evaluation note* Diagnosis Essential hypertension, benign (CMS/HCC)- Primary [...] (BMI) of 45.0 to 49.9 in adult ([facility]) Depression, unspecified depression type ([facility]) Type 2 diabetes mellitus without complication, without long-term current use of insulin ([facility])- Primary Essential hypertension, benign ([facility]) Essential hypertension, benign Asymptomatic microscopic hematuria Degenerative disc disease, cervical Class 3 severe obesity due to excess calories without serious comorbidity with body mass index (BMI) of 45.0 to 49.9 in adult ([facility]) Upper extremity weakness- Primary Other musculoskeletal symptoms referable to limbs Morbid (severe) obesity due to excess calories ([facility]) Body mass index (BMI) 40.0-44.9, adult ([facility]) Rheumatoid arthritis with rheumatoid factor, unspecified ([facility]) Depression, unspecified ([facility]) Type 2 diabetes mellitus without complication, without long-term current use of insulin ([facility]) Other seasonal allergic rhinitis Essential hypertension, benign ([facility]) Essential hypertension, benign Essential (primary) hypertension ([facility]) Unspecified essential hypertension Type 2 diabetes mellitus without complications ([facility]) Other chronic pain Primary insomnia Persistent disorder of initiating or maintaining sleep Essential hypertension, benign ([facility])- Primary Essential hypertension, benign Type 2 diabetes mellitus without complication, without long-term current use of insulin ([facility]) Body mass index (BMI) 40.0-44.9, adult ([facility]) Morbid (severe) obesity due to excess calories ([facility]) Upper extremity weakness- Primary Other musculoskeletal symptoms referable to limbs Depression, unspecified ([facility]) Type 2 diabetes mellitus without complication, without long-term current use of insulin ([facility]) Essential hypertension, benign ([facility]) Essential hypertension, benign Essential (primary) hypertension ([facility]) Unspecified essential hypertension Type 2 diabetes mellitus without complications ([facility]) Obesity, Class II, BMI 35-39.9 Weakness Other malaise and fatigue Rheumatoid arthritis with rheumatoid factor, unspecified ([facility]) Autoimmune disease ([facility]) Autoimmune disease, not elsewhere classified Moderate episode of recurrent major depressive disorder ([facility]) CIDP (chronic inflammatory demyelinating polyneuropathy) ([facility])- Primary Chronic inflammatory demyelinating polyneuritis Major depressive disorder, recurrent, moderate ([facility]) Major depressive disorder, recurrent episode, moderate Morbid (severe) obesity due to excess calories (CMS/HCC) Essential (primary) hypertension (CMS/HCC) Unspecified essential hypertension Body mass index (BMI) 39.0-39.9, adult Rheumatoid arthritis with rheumatoid factor, unspecified (CMS/HCC) Type 2 diabetes mellitus without complications (CMS/HCC) Essential hypertension, benign (CMS/HCC) Essential hypertension, benign Type 2 diabetes mellitus without complication, without long-term current use of insulin (CMS/HCC) Upper extremity weakness Other musculoskeletal symptoms referable to limbs Bilateral lower extremity edema- Primary CIDP (chronic inflammatory demyelinating polyneuropathy) (CMS/HCC) Chronic inflammatory demyelinating polyneuritis Essential hypertension, benign (CMS/HCC) Essential hypertension, benign Morbid (severe) obesity due to excess calories (CMS/HCC) Type 2 diabetes mellitus without complication, without long-term current use of insulin (CMS/HCC) Generalized anxiety disorder (CMS/HCC) Generalized anxiety disorder Moderate episode of recurrent major depressive disorder (CMS/HCC) Major depressive disorder, recurrent, moderate (CMS/HCC) Major depressive disorder, recurrent episode, moderate Obesity, Class II, BMI 35-39.9 documented in this encounter [facility] HealthcareHistory general Narrative - Reported* Type Description Date Medical History rheumatoid arthritis Medical History type 2 diabeties Medical History Benign essential HTN Medical History Depression Surgical History tonsillectomy and adenoidectomy 1987 Hospitalization History tonsillitis [facility] 2C2P Other Hospital Discharge instructionsAmbulatory Orders* PT/OT/SP OutPatient Referral Time Frame: 1 Day, Location: Determined By Patient Additional Instructions Follow up in the neurology office. Follow up with your Energy Technician in [place].[facility] Work Phone: Hospital Discharge instructions* Attachments The following attachments cannot be sent through Care Everywhere. * Weakness: Generalized ([place]) * Numbness and Tingling ([place]) documented [facility] encounterW[facility] Coverage SystemInstructionsNot on filedocumented in this encounterProCincinnati [facility] SystemInstructionsNot on filedocumented in this encounterProCincinnati [facility] SystemInstructionsNot on filedocumented in this encounterProCincinnati [facility] SystemInstructionsNot on filedocumented in this encounterProCinc[facility] SystemInstructionsNot on filedocumented in this encounterProCincinnati [facility] SystemInstructionsNot on filedocumented in this encounterProAdena Regional Medical CenterInstructionsNot on filedocumented in this encounterGalion Community HospitalRealvin 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 [address] Referral ID Status Reason Start Date Expiration Date V isits Requested Visits Authorized [id number] New Request 06/22/2024 07/17/2025 1 1 [facility] for referral (narrative)* Consultation (Routine) - Pending Review Specialty Diagnoses / Procedures Referred By Contac t Referred To Contact Hand Surgery Diagnoses Primary osteoarthritis of both hands Diabetic cheirarthropathy ([facility]) Lula Cota MD [address] [address] Luis Kennedy MD [address] [place] [address] Referral ID Status Reason Start Date Expiration Date Visits Requested Visits Authorized [id number] Pending Review Specialty Services Required 04/17/2024 04/17/2025 1 1 * Medication Prior Authorization - Closed Specialty Diagnoses / Procedures Referred By Rosalie kim Referred To Contact Diagnoses Primary osteoarthritis of both hands Lula Cota MD [address] [place] [address] Referral ID Status Reason Start Date Expiration Date Visits Re quested Visits Authorized [id number] Closed 1 1 [facility] Summary Purpose Family History No [...] Comments 08/09/2024 4:34 PM 08/15/2024 7:06 PM Advance Directive Response Recorded Date/ Time Advance Directives No March 22 11:28pm Chief Complaint and Reason for Visit Chief Complaint Sent from [place] [facility] Reason for Visit Diabetes HTN (hypertension) Upper extremity weakness Chief Complaint Sent from [place] [facility] leg numbness Reason for Visit Diabetes HTN (hypertension) Upper extremity weakness Bilateral arm weakness Bilateral leg weakness Diabetes HTN (hypertension) Leukocytosis Upper extremity weakness Chief Complaint Sent from [place] leg numbness Reason for Visit Diabetes HTN (hypertension) Upper extremity weakness Bilateral arm weakness Bilateral leg weakness Diabetes Falls Fasciculation HTN (hypertension) Leukocytosis Upper extremity weakness Chief Complaint Admit Date disability October 25, 2024 12:40pm Reason for Referral Specialty Diagnoses / Procedures Referred By Rosalie kim Referred To Contact Diagnoses Brachial plexopathy Procedures CONSULT TO NEUROMUSCULAR MEDIC OFFICE/OUTPATIENT [facility] 60 MINUTES Keith Leone MD [address] [place] [address] Referral ID Status Reason Start Date Expiration Date Visits Requested Visits Authorized [id number] Authorized PCP Requested Referral 4 07/10/2025 1 1 Specialty Diagnoses / Procedures Referred By Rosalie t Referred To Contact [facility] Diagnoses Brachial plexopathy Procedures CONSULT TO ENVIRONMENTAL HEALTH TECHNICIAN OCCUPATIONAL THERAPY EVAL HIGH COMPLEX 60 MINS Keith Leone MD [address] [place], [place] [id number] [place] [place] [address] Referral ID Status Reason Start Date Expiration Date Visits Requested Visits Authorized [id number] Pending Review Auto-Generat ed Referral 4 07/10/2025 1 1 Specialty Diagnoses / Procedures Referred By Rosalie t Referred To Contact [facility] Diagnoses Brachial plexopathy Procedures [facility](NEURO/NI) NERVE CONDUCTION STUDIES 9-[place] [address] [place], [place] [id number] [place] [address] Referral ID Status Reason Start Date Expiration Date Visits Requested Visits Authorized [id number] New Request Auto-Generat ed Referral 4 07/10/2025 1 1 Additional Source Comments (unrecognized sect ion and content) No Status Records FoundNo Status Records FoundNo Status Records FoundNo Status Records FoundNo Status Records FoundNo Status Records FoundNo Status Records FoundNo Status Records FoundNo Status Records FoundNo Status Records FoundNo Status Records Found INFORMATION SOURCE (unrecogn ized section and content) DATE CREATED AUTHOR 11/14/2018 [facility] DATE CREATED AUTHOR AUTHOR'S ORGANIZ ATION 04/25/2022 [facility] DATE CREATED AUTHOR AUTHOR'S ORGANIZ ATION 06/25/2024 [facility] DATE CREATED AUTHOR AUTHOR'S ORGANIZ ATION 07/12/2024 [facility] DATE CREATED AUTHOR AUTHOR'S ORGANIZ ATION 07/13/2024 [facility] DATE CREATED AUTHOR AUTHOR'S ORGANIZ ATION 09/12/[address] [facility] DATE CREATED AUTHOR AUTHOR'S ORGANIZ ATION 09/17/2024 [facility] DATE CREATED AUTHOR AUTHOR'S ORGANIZ ATION 10/09/2024 [facility] DATE CREATED AUTHOR AUTHOR'S ORGANIZ ATION 10/29/2024 [facility] DATE CREATED AUTHOR AUTHOR'S ORGANIZ ATION 10/31/2024 [facility] DATE CREATED AUTHOR AUTHOR'S ORGANIZ ATION 11/02/2024 [facility] Source Comments (unrecognize d section and content) In the event this informatio n is protected by the Federal Confidentiality of Alcohol and Drug Abuse Patient Records regulations: The Federal rules restrict any use of the information to criminally investigate or prosecute any alcohol or drug abuse patient.[facility] HospitalIn the event this information is protected by the Federal Confidentiality of Alcohol and Drug Abuse Patient Records regulations: The Federal rules restrict any use of the information to criminally investigate or prosecute any alcohol or drug abuse patient.[facility] HospitalIn the event this information is protected by the Federal Confidentiality of Alcohol and Drug Abuse Patient Records regulations: The Federal rules restrict any use of the information to criminally investigate or prosecute any alcohol or drug abuse patient.[facility] Reason for Visit (unrecogniz ed section [...] Patient Specialty Diagnoses / Procedures Referred By Contrandal t Referred To Contact Neurology Diagnoses CIDP (chronic inflammatory demyelinating polyneuropathy) ([facility]) Primary osteoarthritis of both hands Leland Aguero MD [address] [place] [address] Phone: tel: fax: Cisco Juan MD [address] [place] [address] Phone: tel: fax: Referral ID Status Reason Start Date Expiration Date Visits Requested Visits Authorized [id number] Pending Review Specialty Services Required 4 08/15/2025 1 1 Reason Onset Date Comments IVIG 08/23/2024 Reason Comments Outpatient Infusion IVIG Specialty Diagnoses / Procedures Referred By Rosalie t Referred To Contact Diagnoses CIDP (chronic inflammatory demyelinating polyneuropathy) ([facility]) Procedures IA GAMMAGARD LIQUID INJECTION Cisco Juan MD [address] [place], [place] [id number] Phone: tel: fax: Esetr Schreiber [facility] - Medical Oncology [facility] [place] [address] Phone: tel: fax: Referral ID Status Reason Start Date Expiration Date V isits Requested Visits Authorized [id number] Authorized 08/16/2024 09/10/2025 18 18 Referral ID Status Reason Start Date Expiration Date V isits Requested Visits Authorized [id number] Pending Review 08/16/2024 09/10/2025 18 18 Reason Comments weakness Telephone Encounter - Shagufta Burton - 11/07/2013 2:22 PM EDT Miscellaneous Notes (unrecog nized section and content) Called left message for patient in regards to appointment on 11/08/2013 @ 3:30 with being cancelled and needing to be rescheduled. Waiting on a call back from patient. documented in this encounter Care Teams (unrecognized sec tion and content) Sliver Lap Tender Relationship Specialty Start Date End Date Lexa Hickman MD PCP - General Family Medicine 03/15/23 Cecy Hernandez NP [address] [place] [address] Referring Physician Nurse Practitioner 03/15/23 Team Status: [...] Status: Inactive Member Role Status Dates Cecy Caballeroyancy Primary Care Provider Active Sta rt: March [...] March 30, 2024 End: March 30, 2024 Sliver Lap Tender Relationship Specialty Start Date End Date Lexa Hickman MD [address] [place] [address] PCP - General Family Medicine 11/16/23 Cecy Hernandez NP [address] [place] [address] Referring Physician Nurse Practitioner 03/15/23 Cecy Hernandez NP [address] [place] [address] Nurse Practitioner Family Medicine 11/16/23 Sliver Lap Tender Relationship Specialty Start Date End Date Lexa Hickman MD [address] [place] [address] PCP - General Family Medicine 11/16/23 Cecy Hernandez NP [address] [place] [address] Referring Physician Nurse Practitioner 03/15/23 Cecy Hernandez NP [address] [place] [address] Nurse Practitioner Family Medicine 11/16/23 Sliver Lap Tender Relationship Specialty Start Date End Date Cecy Hernandez CNP [address] [place] [address] PCP - General Certified Nurse Practitioner 06/22/24 Sliver Lap Tender Relationship Specialty Start Date End Date Unallocated, Serena Rothman MD [address] [place] [address] PCP - General Family Medicine 06/11/24 Cecy Hernandez NP [address] [place] [address] Referring Physician Nurse Practitioner 03/15/23 Cecy Hernandez NP [address] [place] [address] Nurse Practitioner Family Medicine 11/16/23 Sliver Lap Tender Relationship Specialty Start Date End Date Unallocated, Serena Rothman MD [address] [place] [address] PCP - General Family Medicine 06/11/24 Cecy Hernandez NP [address] [place] [address] Referring Physician Nurse Practitioner 03/15/23 Cecy Hernandez NP [address] [place] [address] Nurse Practitioner Family Medicine 11/16/23 Sliver Lap Tender Relationship Specialty Start Date End Date Unallocated, Serena Rothman MD [address] [place] [address] PCP - General Family Medicine 06/11/24 Cecy Hernandez NP [address] [place] [address] Referring Physician Nurse Practitioner 03/15/23 Cecy Hernandez NP [address] [place] [address] Nurse Practitioner Family Medicine 11/16/23 Sliver Lap Tender Relationship Specialty Start Date End Date Cecy Hernandez CNP [address] [place] [address] PCP - General Family Medicine 06/24/24 Sliver Lap Tender Relationship Specialty Start Date End Date Cecy Hernandez [employer] [address] [place] [address] PCP - General Family Medicine 06/24/24 Sliver Lap Tender Relationship Specialty Start Date End Date Lexa Hickman MD [address] [place] [address] PCP - General Family Medicine 06/27/24 Cecy Hernandez NP [address] [place] [address] Referring Physician Nurse Practitioner 03/15/23 Cecy Hernandez NP [address] [place] [address] Nurse Practitioner Family Medicine 11/16/23 Sliver Lap Tender Relationship Specialty Start Date End Date Lexa Hickman MD [address] [place] [address] PCP - General Family Medicine 06/27/24 Cecy Hernandez NP [address] [place] [address] Referring Physician Nurse Practitioner 03/15/23 Cecy Hernandez NP [address] [place] [address] Nurse Practitioner Family Medicine 11/16/23 Sliver Lap Tender Relationship Specialty Start Date End Date Lexa Hickman MD [address] [place] [address] PCP - General Family Medicine 06/27/24 Cecy Hernandez NP [address] [place] [address] Referring Physician Nurse Practitioner 03/15/23 Cecy Hernandez NP [address] [place] [address] Nurse Practitioner Family Medicine 11/16/23 Sliver Lap Tender Relationship Specialty Start Date End Date Lexa Hickman MD [address] [place] [address] PCP - General Family Medicine 06/27/24 Cecy Hernandez NP [address] [place] [address] Referring Physician Nurse Practitioner 03/15/23 Cecy Hernandez NP [address] [place] [address] Nurse Practitioner Family Medicine 11/16/23 Sliver Lap Tender Relationship Specialty Start Date End Date Lexa Hickman MD [address] [place] [address] PCP - General Family Medicine 11/16/23 Cecy Hernandez NP [address] [place] [address] Referring Physician Nurse Practitioner 03/15/23 Cecy Hernandez NP [address] [place] [address] Nurse Practitioner Family Medicine 11/16/23 Sliver Lap Tender Relationship Specialty Start Date End Date Lexa Hickman MD [address] [place] [address] PCP - General Family Medicine 11/16/23 Cecy Hernandez NP [address] [place] [address] Referring Physician Nurse Practitioner 03/15/23 Cecy Hernandez NP [address] [place] [address] Nurse Practitioner Family Medicine 11/16/23 Sliver Lap Tender Relationship Specialty Start Date End Date Lexa Hickman MD [address] [place] [address] PCP - General Family Medicine 11/16/23 Cecy Hernandez NP [address] [place] [address] Referring Physician Nurse Practitioner 03/15/23 Cecy Hernandez NP [address] [place] [address] Nurse Practitioner Family Medicine 11/16/23 Sliver Lap Tender Relationship Specialty Start Date End Date Lexa Hickman MD [address] [place] [address] PCP - General Family Medicine 11/16/23 Cecy Hernandez NP [address] [place] [address] Referring Physician Nurse Practitioner 03/15/23 Cecy Hernandez NP [address] [place] [address] Nurse Practitioner Family Medicine 11/16/23 Sliver Lap Tender Relationship Specialty Start Date End Date Lexa Hickman MD [address] [place] [address] PCP - General Family Medicine 11/16/23 Cecy Hernandez NP [address] [place] [address] Referring Physician Nurse Practitioner 03/15/23 Cecy Hernandez NP [address] [place] [address] Nurse Practitioner Family Medicine 11/16/23 Sliver Lap Tender Relationship Specialty Start Date End Date [facility] [address] [place] [address] PCP - General Nurse Practitioner 08/08/24 Sliver Lap Tender Relationship Specialty Start Date End Date Cecy Hernandez APRNBRAZER INDUCTION [address] [place] [address] PCP - General Nurse Practitioner 08/08/24 Sliver Lap Tender Relationship Specialty Start Date End Date Cecy Hernandez APRNBRAZER INDUCTION [address] [place] [address] PCP - General Nurse Practitioner 08/08/24 Sliver Lap Tender Relationship Specialty Start Date End Date Cecy Hernandez APRNBRAZER INDUCTION [address] [place] [phone] PCP - General Nurse Practitioner 08/08/24 Sliver Lap Tender Relationship Specialty Start Date End Date Cecy Hernandez APRN-HERIBERTO [address] [place] [phone] PCP - General Nurse Practitioner 08/08/24 Sliver Lap Tender Relationship Specialty Start Date End Date Lexa Hickman MD [address] [place] [phone] PCP - General Family Medicine 06/27/24 Cecy Hernandez NP [address] [place] [phone] Referring Physician Nurse Practitioner 03/15/23 Cecy Hernandez NP [address] [place] [phone] Nurse Practitioner Family Medicine 11/16/23 Sliver Lap Tender Relationship Specialty Start Date End Date Lexa Hickman MD [address] [place] [phone] PCP - General Family Medicine 06/27/24 Cecy Hernandez NP [address] [place] [phone] Referring Physician Nurse Practitioner 03/15/23 Cecy Hernandez NP [address] [place] [phone] Nurse Practitioner Family Medicine 11/16/23 Sliver Lap Tender Relationship Specialty Start Date End Date Cecy Hernandez, TRUCK AND TRANSPORT MECHANIC-BRAZER INDUCTION [address] [place] [phone] PCP - General Nurse Practitioner 08/08/24 Sliver Lap Tender Relationship Specialty Start Date End Date Cecy Hernandez, TRUCK AND TRANSPORT MECHANIC-BRAZER INDUCTION [address] [place] [address] PCP - General Nurse Practitioner 08/08/24 Sliver Lap Tender Relationship Specialty Start Date End Date Lexa Hickman MD [address] [place] [phone] PCP - General Family Medicine 06/27/24 Cecy Hernandez NP [address] [place] [phone] Referring Physician Nurse Practitioner 03/15/23 Cecy Hernandez NP [address] [place] [phone] Nurse Practitioner Family Medicine 11/16/23 Sliver Lap Tender Relationship Specialty Start Date End Date Lexa Hickman MD [address] [place] [phone] PCP - General Family Medicine 06/27/24 Cecy Hernandez NP [address] [place] [phone] Referring Physician Nurse Practitioner 03/15/23 Cecy Hernandez NP [address] [place] [address] Nurse Practitioner Family Medicine 11/16/23 Lauren Jarvis LSW Pig Machine Crane Operator Family Medicine 10/14/24 Sliver Lap Tender Relationship Specialty Start Date End Date Lexa Hickman MD [address] [place] [phone] PCP - General Family Medicine 06/27/24 Cecy Hernandez NP [address] [place] [phone] Referring Physician Nurse Practitioner 03/15/23 Cecy Hernandez NP [address] [place] [phone] Nurse Practitioner Family Medicine 11/16/23 Lauren Jarvis LSW Pig Machine Crane Operator Family Medicine 10/14/24 Sliver Lap Tender Relationship Specialty Start Date End Date Lexa Hickman MD [address] [place] [phone] PCP - General Family Medicine 06/27/24 Cecy Hernandez NP [address] [place] [phone] Referring Physician Nurse Practitioner 03/15/23 Cecy Hernandez NP [address] [place] [phone] Nurse Practitioner Family Medicine 11/16/23 Lauren Jarvis LSW Pig Machine Crane Operator Family Medicine 10/14/24 Team Status: Inactive Member Role Status Dates Cecy Heranndez Primary Care Provide r, Attending Provider Active Start: October 25, 2024 End: October 25, 2024 Sliver Lap Tender Relationship Specialty Start Date End Date Lexa Hickman MD [address] [place] [phone] PCP - General Family Medicine 06/27/24 Cecy Hernandez NP [address] [place] [phone] Referring Physician Nurse Practitioner 03/15/23 Cecy Hernandez NP [address] [place] [phone] Nurse Practitioner Family Medicine 11/16/23 Lauren Jarvis LSW Pig Machine Crane Operator Family Medicine 10/14/24 Sliver Lap Tender Relationship Specialty Start Date End Date Lexa Hickman MD [address] [place] [phone] PCP - General Family Medicine 06/27/24 Cecy Hernandez NP [address] [place] [phone] Referring Physician Nurse Practitioner 03/15/23 Cecy Hernandez NP [address] [place] [phone] Nurse Practitioner Family Medicine 11/16/23 Lauren Jarvis LSW Pig Machine Crane Operator Family Medicine 10/14/24 Scheduled Active and Recently Administ ered Medications [...] (Given - Provid er: Tamica Mckeon RN) Goals (unrecognized section and content) Goals may be documented in a n alternate section FOR RECORDS PERTAINING TO PATIENTS WHO ARE [...] BE BASED ON THE PRIMARY CLINICAL RECORDS. [employer] [facility]. provides no warranty or guarantee of the accuracy or completeness of information in this document.
[2024-11-07 09:44] LABS: Basophils Absolute Auto 0.1 10^3/uL (0.0-0.1); Basophils Percent Auto 0.3 % (0.2-2.0); Eosinophils Percent Auto 0.1 % (0.9-7.0); Hematocrit 45.8 % (42.0-54.0); Hemoglobin 15.2 g/dL (14.0-18.0); Immature Granulocytes Pct Auto 1.8 % (0.0-0.5); Lymphocytes Absolute Auto 3.2 10^3/uL (1.2-3.8); Mean Corpuscular HGB Conc 33.2 g/dL (29.9-35.2); Mean Corpuscular Volume 93.3 fL (80.0-94.0); Monocytes Absolute Auto 1.1 10^3/uL (0.3-0.8); Monocytes Percent Auto 4.7 % (1.7-12.0); Neutrophils Percent Auto 79.1 % (43.0-75.0); Platelet Count 173 10^3/uL (150-450); Red Blood Count 4.91 10^6/uL (4.70-6.10); Red Cell Distribution Width 14.9 % (11.0-15.0); White Blood Count 22.7 10^3/uL (4.0-11.0)
== END 2024-11-07 09:24 | disposition home or self-care (01) ==
LOC: LAB 09:26
PROVIDERS: PCP Nurse Practitioner; Visit Provider Nurse Practitioner
DX: D72.829 Elevated white blood cell count, unspecified (principal)
CPT/HCPCS: 36415; 85025

== ENCOUNTER 2024-12-10 13:49 | Emergency (ER) | payer MEDICAID, SELFPAY ==
[2024-12-10] VITALS (23 sets, daily range): BP systolic 105–143; BP diastolic 72–92; PULSE 108–121; TEMP 36.9; O2SAT 89–96; BMI 37.9
--- NOTE | 2024-12-10 14:14 | ECG_ITS ---
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 Measurements Intervals [place] Rate: 118 P: 70 W[place]: 126 QRS: 36 QRSD: 96 T: 24 QT: 342 QTc: 412 Interpretive Statements 1120 Sinus tachycardia 4068 Nonspecific Twave abnormality abnormal ECG Compared to ECG 10/12/2024 12:47:58 Nonspecific Twave abnormality is now present Electronically Signed On 12-10-2024 19:31:14 EDT by GAGAN BRITTON M.D.
--- NOTE | 2024-12-10 14:15 | ED.SOB1 ---
HPI - SOB/Dyspnea General Chief Complaint: Shortness of Breath/Dyspnea Stated Complaint: HIGH HEART RATE LOW OXYGEN LEVELS Time Seen by Provider: 12/10/24 14:04 Source: patient Mode of arrival: walk-in Limitations: no limitations History of Present Illness HPI Narrative: 49-year-old male presents to the emergency department with complaint of not feeling well today. Woke up around 10 AM this morning with generalized malaise. States he felt a little short of breath, lightheaded. History of chronic inflammatory demyelinating polyneuritis. He receives IgG and high-dose steroids. Does have associated leg swelling with the steroids. He subsequently went to an urgent care as he was worried he was coming down with a flulike illness and they noted his heart rate to be elevated and his pulse oximetry to be low. This prompted them to send the patient to the emergency department for further evaluation. Denies any recent travel, recent hospitalizations, calf pain Quality:?As above Severity:?Moderate Timing:?As above, intermittent Context: Normal setting and activity? Modifying factors:?Worse with exertion Associated symptoms: As above Related Data Home Medications ?Medication ?Instructions ?Recorded ?Confirmed loratadine 10 mg tablet (Allergy 10 mg PO DAILY 01/16/24 08/08/24 Relief (loratadine)) meloxicam 15 mg tablet 15 mg PO DAILY 01/16/24 08/08/24 metformin 1,000 mg tablet 500 mg PO .with meals 01/16/24 08/08/24 pioglitazone 30 mg tablet (Actos) 30 mg PO DAILY 04/12/24 08/08/24 amitriptyline 10 mg tablet 10 mg PO Q24H 08/08/24 08/08/24 aspirin 81 mg chewable tablet 1 tab PO .QD 08/08/24 08/08/24 citalopram 40 mg tablet 40 mg PO .QD 08/08/24 08/08/24 dapagliflozin propanediol 5 mg 5 mg PO .QD 08/08/24 08/08/24 tablet (Farxiga) fluticasone propionate 50 2 spray intranasal .QD 08/08/24 08/08/24 mcg/actuation nasal spray,suspension lisinopril 20 1 tab PO .QD 08/08/24 08/08/24 mg-hydrochlorothiazide 25 mg tablet simvastatin 20 mg tablet 20 mg PO .QHS 08/08/24 08/08/24 tizanidine 4 mg tablet 4 mg PO .QHS PRN muscle spasticity 08/08/24 08/08/24 Previous Rx's ?Medication ?Instructions ?Recorded furosemide 20 mg tablet (Lasix) 20 mg PO DAILY #7 tabs 10/12/24 Allergies Allergy/AdvReac Type Severity Reaction Status Date / Time adhesive tape Allergy Mild Rash Verified 12/10/24 13:58 almond Allergy Mild Rash Verified 12/10/24 13:58 penicillin G Allergy Mild Vomiting Verified 12/10/24 13:58 oxytetracycline AdvReac Unknown Unknown Verified 12/10/24 13:58 cashews Allergy Mild Rash Uncoded 12/10/24 13:58 Review of Systems ROS Narrative CONST: Denies fever, chills HENT: Denies congestion, sore throat EYES: Denies eye redness, visual disturbance RESP: + slight cough, shortness of breath. Denies chest tightness, choking, stridor, wheezing CV: + peripheral edema. Denies chest pain, palpitations GI: Denies abd pain, nausea, vomiting : Denies dysuria, flank pain MS: Denies back pain, myalgias SKIN: Denies color change, rash NEURO: + lightheaded. Denies numbness, weakness PSYCHIATRIC: Denies confusion, agitation [facility] Medical History (Updated 12/10/24 @ 15:43 by KATARZYNA Huizar) Numbness of fingers of both hands ?R20.0 - Anesthesia of skin (ICD-10) Sleep apnea ?G47.30 - Sleep apnea, unspecified (ICD-10) Diabetes ?E11.9 - Type 2 diabetes mellitus without complications (ICD-10) Bilateral arm weakness ?R29.898 - Other symptoms and signs involving the musculoskeletal system (ICD-10) Cervical spinal stenosis ?M48.02 - Spinal stenosis, cervical region (ICD-10) Paresthesia ?R20.2 - Paresthesia of skin (ICD-10) Type 2 diabetes mellitus ?E11.9 - Type 2 diabetes mellitus without complications (ICD-10) Tonsillitis ?J03.90 - Acute tonsillitis, unspecified (ICD-10) Seasonal allergies ?J30.2 - Other seasonal allergic rhinitis (ICD-10) Rheumatoid arthritis ?M06.9 - Rheumatoid arthritis, unspecified (ICD-10) EDDI (obstructive sleep apnea) ?G47.33 - Obstructive sleep apnea (adult) (pediatric) (ICD-10) Hypertension ?I10 - Essential (primary) hypertension (ICD-10) Epigastric pain ?R10.13 - Epigastric pain (ICD-10) Depression ?F32.A - Depression, unspecified (ICD-10) Obesity ?E66.9 - Obesity, unspecified (ICD-10) Chronic pain ?G89.29 - Other chronic pain (ICD-10) Cellulitis ?L03.90 - Cellulitis, unspecified (ICD-10) Anxiety ?F41.9 - Anxiety disorder, unspecified (ICD-10) Surgical History Hx of tonsillectomy ?Z90.89 - Acquired absence of other organs (ICD-10) H/O adenoidectomy ?Z90.89 - Acquired absence of other organs (ICD-10) Family History (Updated 08/08/24 @ 08:43 by Fany Rae) Other Family history of colon cancer Family history of diabetes mellitus Family history of heart disease Family history of hypertension Family history of stroke Social History (Updated 08/08/24 @ 08:44 by Fany Rae) Within the past year, how often did you have a drink containing alcohol: never Score interpretation: A score less than 4 is consistent with normal alcohol consumption. Smoking status: Former smoker Non-prescribed substance use: denies use Previous occupational history: does not work Highest level of school completed/degree received: high school graduate In a typical week, how many times do you talk on the telephone with family, friends, or neighbors: once per week How often do you get together with friends or relatives: once per week How often do you attend taoist or sikh services: never Do you belong to any clubs or organizations such as taoist groups unions, fraternal or athletic groups, or school groups: no Little interest or pleasure in doing things: not at all Feeling down, depressed, or hopeless: not at all Feel stressed/tense/nervous/anxious/difficulty sleeping: to some extent Life stressor details: homeless Due to disability, difficulty making decisions: No Do you think of yourself as: straight/heterosexual Gender Identity: male Exam Narrative Exam Narrative: Vital signs reviewed Nurses notes noted CONST: Nontoxic, well appearing, well nourished, in no distress.? No diaphoresis.?? HENT: normocephalic, atraumatic, moist mucous membrane, no abnormalities of the nose noted, hearing normal EYES: normal appearing conjunctiva, no apparent discharge bilat NECK: normal appearance, no JVD CV: +Tachycardic. + peripheral edema. Regular rhythm, no murmur RESP: normal effort, speaking in complete sentences. Lung sounds clear and equal bilat.? No wheezes, rales, rhonchi GI: normal bowel sounds, soft, nontender, no distension : no CVA tenderness MS: no edema, tenderness SKIN: no pallor NEURO: A&Ox 3 PSYCH: normal mood, affect Constitutional Vital Signs, click to edit/add: Last Vital Signs Temp 98.4 F 12/10/24 13:58 Pulse 108 H 12/10/24 15:40 Resp 19 12/10/24 15:40 BP 122/72 12/10/24 15:30 Pulse Ox 95 12/10/24 15:40 O2 Del Method Nasal Cannula 12/10/24 14:30 O2 Flow Rate 2 12/10/24 14:30 Course Reevaluation(s) Reevaluation #1: Patient's pulse ox went down to about 88%. He was started on 2 L of oxygen. SPO2 stabilized above 94%. Patient remained comfortable during ED course. Discussed with patient CT concerns, findings, plan, and disposition. Patient is agreeable. He is established at [facility] in [place]. Time: 14:39 Consultations Consultation #1: Dr. Aguilar at [facility]. Requests films be pushed and they will review and evaluate need for PERT activation Time: 15:12 Consultation #2: Spoke with PERT. After reviewing films, agree to start patient on antibiotics for possible pneumonia, hx of immunocompromised state and they will accept patient to MICU under Dr. Aguilar. Time: 15:34 Vital Signs Vital signs: Vital Signs Pulse Oximetry 96 12/10/24 13:57 Temperature 98.4 F 12/10/24 13:58 Pulse Rate 108 H 12/10/24 15:40 Respiratory Rate 19 12/10/24 15:40 Blood Pressure 122/72 12/10/24 15:30 Pulse Oximetry 95 12/10/24 15:40 Oxygen Delivery Method Nasal Cannula 12/10/24 14:30 Oxygen Delivery Flow Rate 2 12/10/24 14:30 MDM - SOB/Dyspnea MDM Narrative Medical decision making narrative: This is a pleasant 49-year-old male who presents to the emergency department for evaluation of elevated heart rate, low pulse oximetry. Patient states he had not been feeling well since about 10 AM. Complained of general malaise, lightheadedness, mild shortness of breath. Thought he was, coming down with something, and presented to an urgent care. Then the urgent care noted his abnormal vital signs, they sent him here for further evaluation. Denies any recent travel, calf pain, immobilization. On arrival, afebrile, hypoxic, tachycardic, otherwise, vital signs are stable On exam, nontoxic, well appearing patient, in no apparent distress. Pulse oximetry in room is about 92-94%. He is tachycardic at 118. Otherwise, he appears stable. He is speaking in complete sentences. Heart rate elevated, regular rhythm. He does have some peripheral edema, which states has been ongoing and is believed to be from steroids. EKG reveals tachycardia, otherwise no acute or concerning changes. IV access established, blood work was drawn and sent to the lab On review of patient's history, concern raised regarding pulmonary embolism as he has no other presenting signs, symptoms, underlying pulmonary disease that would explain his vital signs, signs, symptoms and CTA of the chest was ordered. Labs revealed white count of 14.8. He is on steroids and the white count appears improved from 22 about a month ago. No anemia, thrombocytopenia, electrolyte imbalance, renal impairment. Glucose 343. LFTs unremarkable. High-sensitivity troponin elevated at 177. BNP elevated 2899. COVID, influenza, RSV screens were all negative CT chest imaging, per radiologist reveals massive or submassive bilateral PEs. Right heart strain. Bilateral infiltrates in both lungs which could be related to multifocal pneumonia and/or infarction PT, INR, PTT ordered. Patient started on high dose heparin with bolus. He was also given Rocephin and doxycycline for possible pneumonia He is established with [facility] in [place]. As this hospital does not have the capability for thrombectomy, he will be transferred. See consultation note above. Favor pulmonary embolism with right heart strain, pneumonia Pneumothorax less likely based on imaging COVID, influenza, RSV less likely based on lab testing History and Record Review Additional records reviewed: No records from [facility] available Management Discussion with another healthcare provider: See consultation note above Independent interpretation imaging CT chest reviewed: Pulmonary embolism noted in both lungs Additional Tests and Interventions ECG, IV fluids IV fluids: hydration/inability to tolerate PO Medications considered but not ordered: TPA Re-Evaluation See ED course Disposition/plan ED disposition: Plan: Patient will be transferred to [facility] in [place].? Condition at time of disposition: stable, improved, guarded. PLEASE NOTE: Portions of the medical record may have been produced using electronic exchange engineer and may contain errors with respect to translation of words which may not have been identified prior to finalization of the chart. Medical Records Attestation: I reviewed the patient's medical records. Lab Data Attestation: I reviewed the patient's lab results. Labs: Lab Results 12/10/24 12/10/24 Range/Units 14:10 14:15 WBC 14.8 H (4.0-11.0) 10^3/uL RBC 4.64 L (4.70-6.10) 10^6/uL Hgb 14.5 (14.0-18.0) g/dL Hct 42.6 (42.0-54.0) % MCV 91.8 (80.0-94.0) fL MCH 31.3 (25.9-34.0) pg MCHC 34.0 (29.9-35.2) g/dL RDW 15.9 H (11.0-15.0) % Plt Count 235 (150-450) 10^3/uL MPV 9.1 L (9.5-13.5) fL Neut % (Auto) 83.6 H (43.0-75.0) % Lymph % (Auto) 11.1 L (20.5-60.0) % Crawford % (Auto) 4.3 (1.7-12.0) % Eos % (Auto) 0.1 L (0.9-7.0) % Baso % (Auto) 0.2 (0.2-2.0) % Neut # (Auto) 12.3 H (1.4-6.5) 10^3/uL Lymph # (Auto) 1.6 (1.2-3.8) 10^3/uL Crawford # (Auto) 0.6 (0.3-0.8) 10^3/uL Eos # (Auto) 0.0 (0.0-0.7) 10^3/uL Baso # (Auto) 0.0 (0.0-0.1) 10^3/uL Abs Immat Gran (auto) 0.10 H (0.00-0.03) 10^3/uL Imm/Tot Granulo (auto) 0.7 H (0.0-0.5) % PT 10.6 (9.0-11.6) sec INR 1.00 APTT 24.5 (22.3-36.2) sec Sodium 135 L (136-145) mmol/L Potassium 3.7 (3.5-5.1) mmol/L Chloride 96 L (98-107) mmol/L Carbon Dioxide 25.9 (21.0-32.0) mmol/L Anion Gap 16.8 BUN 9.0 (7.0-18.0) mg/dL Creatinine 0.84 (0.70-1.30) mg/dL Est GFR ( Amer) >60 (>=60 mL/min/1.73m^2) Est GFR (Non-Af Amer) >60 (>=60 mL/min/1.73m^2) BUN/Creatinine Ratio 10.7 Glucose 343 H (74-106) mg/dL Calcium 8.8 (8.5-10.1) mg/dL Magnesium 1.2 L (1.8-2.4) mg/dL Total Bilirubin 0.9 (0.2-1.0) mg/dL AST 24 (15-37) U/L ALT 55 (16-63) U/L Alkaline Phosphatase 86 (46-116) U/L Troponin I High Sens 177.6 H* (4.0-76.1) pg/mL NT-Pro-B Natriuret Pep 2899.0 H* (<=450.0) pg/mL Total Protein 6.8 (6.4-8.2) g/dL Albumin 3.0 L (3.4-5.0) g/dL Globulin 3.8 g/dL Albumin/Globulin Ratio 0.8 Influenza Type A Ag Negative Influenza Type B Ag Negative RSV Antigen Not detected (NOT DETECTE) SARS-CoV-2 Ag (CV2AG) Negative (NEGATIVE) Imaging Data CT scan - chest: Attestation: I have reviewed the pertinent imaging results. Radiologist's impression: Massive or submassive bilateral PEs. Right heart strain. Bilateral infiltrates in both lung chew which could be related to multifocal pneumonia and/or infarct ECG Data Attestation: I personally reviewed and interpreted this ECG as follows: (EKG performed at 1404 hrs. reveals sinus tachycardia at 118 bpm. No ischemia or ectopy noted. No other additional acute changes are noted. Normal axis.) Critical Care Time Critical Care Time Total Critical Care Time: 60 Attestation: Critical Care I spent a total of?60 minutes of critical care time in the evaluation and management of this patient. This was necessary to treat or prevent deterioration of the following condition(s): hypoxia, PE with right heart strain which the patient had and/or has a high probability of suddenly developing. The patient received oxygen, heparin, high doseduring the time that critical care was provided. Critical care time excludes separately billed procedures.? Discharge Plan Discharge Chief Complaint: Shortness of Breath/Dyspnea Clinical Impression: Hypoxia, Tachycardia, Chronic inflammatory demyelinating polyneuropathy Acute pulmonary embolism with acute cor pulmonale Qualifiers: Pulmonary embolism type: saddle Qualified Code(s): I26.02 - Saddle embolus of pulmonary artery with acute cor pulmonale Patient Disposition: [facility] Time of Disposition Decision: 15:34 Discharge Location: [facility] Discharge Date/Time: 12/10/24 17:23
[2024-12-10 14:21] LABS: Basophils Percent Auto 0.2 % (0.2-2.0); Eosinophils Percent Auto 0.1 % (0.9-7.0); Hematocrit 42.6 % (42.0-54.0); Hemoglobin 14.5 g/dL (14.0-18.0); Immature Granulocytes Pct Auto 0.7 % (0.0-0.5); Lymphocytes Absolute Auto 1.6 10^3/uL (1.2-3.8); Lymphocytes Percent Auto 11.1 % (20.5-60.0); Mean Corpuscular Hemoglobin 31.3 pg (25.9-34.0); Mean Corpuscular Volume 91.8 fL (80.0-94.0); Mean Platelet Volume 9.1 fL (9.5-13.5); Monocytes Absolute Auto 0.6 10^3/uL (0.3-0.8); Monocytes Percent Auto 4.3 % (1.7-12.0); Neutrophils Absolute Auto 12.3 10^3/uL (1.4-6.5); Neutrophils Percent Auto 83.6 % (43.0-75.0); Platelet Count 235 10^3/uL (150-450); Red Blood Count 4.64 10^6/uL (4.70-6.10); Red Cell Distribution Width 15.9 % (11.0-15.0); White Blood Count 14.8 10^3/uL (4.0-11.0)
[2024-12-10 14:37] LABS: Alanine Aminotransferase 55 U/L (16-63); Albumin Globulin Ratio 0.8; Alkaline Phosphatase 86 U/L (46-116); Anion Gap 16.8; Aspartate Amino Transferase 24 U/L (15-37); BUN Creatinine Ratio 10.7; Bilirubin Total 0.9 mg/dL (0.2-1.0); Calcium 8.8 mg/dL (8.5-10.1); Carbon Dioxide 25.9 mmol/L (21.0-32.0); Chloride 96 mmol/L (98-107); Estimated GFR (African America >60 (>=60 mL/min/1.73m^2); Estimated GFR (Non-African Ame >60 (>=60 mL/min/1.73m^2); Globulin 3.8 g/dL; Glucose 343 mg/dL (74-106); Potassium 3.7 mmol/L (3.5-5.1); Sodium 135 mmol/L (136-145); Total Protein 6.8 g/dL (6.4-8.2)
[2024-12-10 14:43] LABS: Influenza Virus A Antigen Negative; Influenza Virus B Antigen Negative; Internal Control Within Normal Limits; Respiratory Syncytial Virus Not Detected (NOT DETECTE)
[2024-12-10 14:44] LABS: Internal Control Within Normal Limits; SARS-CoV-2 Ag NEGATIVE (NEGATIVE)
[2024-12-10 14:45] LABS: Magnesium 1.2 mg/dL (1.8-2.4)
[2024-12-10 14:54] LABS: Partial Thromboplastin Time 24.5 sec (22.3-36.2); Prothrombin Time 10.6 sec (9.0-11.6)
[2024-12-10 15:17] LABS: Troponin I High Sensitivity 177.6 pg/mL (4.0-76.1)
[2024-12-10] MEDS: HEPARIN SODIUM (PORCINE) 5,000 UNIT/ML VIAL 8500 UNIT IV (15:20)
[2024-12-10] MEDS: HEPARIN SODIUM,PORCINE/D5W 25,000 UNIT/500 ML IV.SOLN 30 UNIT IV (15:23)
[2024-12-10] MEDS: CEFTRIAXONE 1,000 MG in 0.9 % SODIUM CHLORIDE 50 ML 100 MG IV (15:49)
[2024-12-10] MEDS: DOXYCYCLINE MONOHYDRATE 100 MG CAPSULE PO (15:49)
--- NOTE | 2024-12-10 17:14 | PC.NURSE ---
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
--- NOTE | 2024-12-10 17:19 | PC.NURSE ---
Report called to Kyle MICHAEL at [facility]
== END 2024-12-10 17:23 | disposition short-term general hospital (02) ==
PROVIDERS: Physician Assistant; Emergency Provider Emergency Medicine; PCP Nurse Practitioner
DX: I26.02 Saddle embolus of pulmonary artery with acute cor pulmonale (principal); G61.81 Chronic inflammatory demyelinating polyneuritis; R09.02 Hypoxemia; R00.0 Tachycardia, unspecified; Z79.899 Other long term (current) drug therapy; Z87.891 Personal history of nicotine dependence
CPT/HCPCS: 36415; 71275; 80053; 83735; 83880; 84484; 85025; 85610; 85730; 87420; 87804; 87811; 93005; 96365; 96366; 96368; 96376; 99285; J0696; J1644; Q9967

== ENCOUNTER 2024-12-17 11:38 | Outpatient (OUT) | payer MEDICAID, SELFPAY ==
[2024-12-17 11:55] LABS: Basophils Absolute Auto 0.1 10^3/uL (0.0-0.1); Basophils Percent Auto 0.6 % (0.2-2.0); Eosinophils Percent Auto 0.4 % (0.9-7.0); Hematocrit 41.8 % (42.0-54.0); Hemoglobin 13.7 g/dL (14.0-18.0); Immature Granulocytes Abs Auto 0.38 10^3/uL (0.00-0.03); Immature Granulocytes Pct Auto 3.5 % (0.0-0.5); Lymphocytes Absolute Auto 4.1 10^3/uL (1.2-3.8); Lymphocytes Percent Auto 37.4 % (20.5-60.0); Mean Corpuscular HGB Conc 32.8 g/dL (29.9-35.2); Mean Corpuscular Hemoglobin 31.2 pg (25.9-34.0); Mean Corpuscular Volume 95.2 fL (80.0-94.0); Mean Platelet Volume 9.3 fL (9.5-13.5); Monocytes Absolute Auto 0.6 10^3/uL (0.3-0.8); Monocytes Percent Auto 5.4 % (1.7-12.0); Neutrophils Absolute Auto 5.8 10^3/uL (1.4-6.5); Neutrophils Percent Auto 52.7 % (43.0-75.0); Platelet Count 299 10^3/uL (150-450); Red Blood Count 4.39 10^6/uL (4.70-6.10); Red Cell Distribution Width 16.1 % (11.0-15.0)
[2024-12-17 12:14] LABS: Anion Gap 11.5; BUN Creatinine Ratio 18.1; Calcium 9.4 mg/dL (8.5-10.1); Carbon Dioxide 31.4 mmol/L (21.0-32.0); Chloride 102 mmol/L (98-107); Estimated GFR (African America >60 (>=60 mL/min/1.73m^2); Estimated GFR (Non-African Ame >60 (>=60 mL/min/1.73m^2); Glucose 122 mg/dL (74-106); Potassium 4.9 mmol/L (3.5-5.1); Sodium 140 mmol/L (136-145)
== END 2024-12-17 11:39 | disposition home or self-care (01) ==
LOC: LAB 11:39
PROVIDERS: PCP Nurse Practitioner; Visit Provider Nurse Practitioner
DX: R60.0 Localized edema (principal); G61.81 Chronic inflammatory demyelinating polyneuritis
CPT/HCPCS: 36415; 80048; 85025; 87150

== ENCOUNTER 2025-01-10 11:58 | Outpatient (OUT) | payer MEDICAID, SELFPAY ==
[2025-01-10 12:29] LABS: Estimated Average Glucose 171 mg/dL; Glycohemoglobin A1C 7.6 % (4.5-6.2)
[2025-01-10 12:58] LABS: Anion Gap 12.6; BUN Creatinine Ratio 9.3; Calcium 8.5 mg/dL (8.5-10.1); Chloride 105 mmol/L (98-107); Estimated GFR (African America >60 (>=60 mL/min/1.73m^2); Estimated GFR (Non-African Ame >60 (>=60 mL/min/1.73m^2); Glucose 171 mg/dL (74-106); Potassium 3.6 mmol/L (3.5-5.1); Sodium 144 mmol/L (136-145)
== END 2025-01-10 11:59 | disposition home or self-care (01) ==
LOC: LAB 12:00
PROVIDERS: PCP Nurse Practitioner; Visit Provider Nurse Practitioner
DX: R60.0 Localized edema (principal); E11.9 Type 2 diabetes mellitus without complications
CPT/HCPCS: 36415; 80048; 83036